=== PATIENT | male | born 1935 | race Caucasian/White ===

== ENCOUNTER 2016-08-13 17:43 | Emergency (ER) | payer MEDICARE, BC ==
[2016-08-13 17:53] VITALS: RESP 20
[2016-08-13] MEDS ORDERED: RX INFO: IV CONTRAST WAS GIVEN 1 EACH MISC MISCELLANE PRN (18:02)
[2016-08-13 18:36] LABS: Anisocytosis Slight; Basophils # (A) 0.3 k/uL (0-0.2); Basophils % (A) 2 %; CH 26.2; CHCM 33.2; Eosinophils # (A) 0.3 k/uL (0-0.7); Eosinophils % (A) 2 %; HCT 39.6 % (39.0-53.0); HDW 2.85; HGB 13.2 gm/dL (13.0-17.5); Luc # (Auto) 0.46; Luc % (Auto) 3; Lymphocytes # (A) 2.2 k/uL (1.0-4.8); Lymphocytes % (A) 15 %; MCH 26.5 pg (25.0-35.0); MCHC 33.3 g/dL (31.0-37.0); MCV 79.5 fL (80.0-100.0); Mean Platelet Volume 8.6; Microcytosis Slight; Monocytes # (A) 0.8 k/uL (0-1.0); Monocytes % (A) 5 %; Neutrophils # (A) 11.1 k/uL (1.3-7.7); Neutrophils % (A) 73 %; RBC 4.98 m/uL (4.30-5.90); RDW 17.1 % (11.5-15.5); WBC 15.1 k/uL (3.8-10.6); WBC (Perox) 15.04
--- NOTE | 2016-08-13 18:40 | ED ---
General Adult HPI - General Chief complaint: Abdominal Pain Stated complaint: SOB,HTN Time Seen by Provider: 08/13/16 18:01 Source: patient Mode of arrival: wheelchair Limitations: no limitations - History of Present Illness Initial comments: 81-year-old male presenting for cough and chest congestion. Patient states that he has been feeling ill for the past few days. He states that he's had some intermittent fevers and chills. He denies any chest pain associated. States that he has had chronic recurrent cough issues after he was intubated on life support for 3 months several years ago. He states that he was on a biotic several months ago for pneumonia. Denies any recent antibiotics or steroids. States he is also having some intermittent abdominal and back pain. He denies any nausea or vomiting. He also mentions that she's had some dark-colored stools over the past 2 days although he states he started iron supplement about 3 days ago. Denies any history of GI bleed. He is not on any blood thinners. - Related Data Home Medications Medication Instructions Recorded Confirmed Acetaminophen Tab [Tylenol] 650 mg PO Q4H PRN 12/21/14 08/13/16 Insulin Detemir [Levemir Flextouch] 60 units SQ HS 12/21/14 08/13/16 Montelukast [Singulair] 10 mg PO HS 12/21/14 08/13/16 Aspirin EC [Ecotrin Low Dose] 81 mg PO HS 02/07/16 08/13/16 Cyanocobalamin [Vitamin B-12] 500 mcg PO DAILY 02/07/16 08/13/16 Insulin Aspart [NovoLOG Flexpen] 15 units SQ AC-TID 02/07/16 08/13/16 Isosorbide Mononitrate ER [Imdur] 30 mg PO DAILY 02/07/16 08/13/16 Magnesium Oxide [Mag-Ox] 250 mg PO DAILY 02/07/16 08/13/16 Metoprolol Tartrate 25 mg PO BID 02/07/16 08/13/16 Pravastatin Sodium 40 mg PO HS 02/07/16 08/13/16 Zinc 50 mg PO DAILY 02/07/16 08/13/16 Albuterol Nebulized [Ventolin 2.5 mg INHALATION RT-TID PRN 04/02/16 08/13/16 Nebulized] Escitalopram [Lexapro] 10 mg PO DAILY 04/02/16 08/13/16 Furosemide [Lasix] 40 mg PO QAM 04/02/16 08/13/16 Potassium Chloride ER [K-Dur 20] 20 meq PO DAILY 04/02/16 08/13/16 [place]-3 Fatty Acids/Fish Oil [Fish 1 cap PO DAILY 08/13/16 08/13/16 Oil 1,000 mg Softgel] Previous Rx's Medication Instructions Recorded Ferrous Sulfate [Feosol] 325 mg PO DAILY #30 tab 04/07/16 Doxycycline Hyclate 100 mg PO DAILY 7 Days 08/13/16 Allergies Allergy/AdvReac Type Severity Reaction Status Date / Time Penicillins Allergy Unknown Rash/Hives Verified 08/13/16 19:07 atorvastatin calcium Allergy Unknown Verified 08/13/16 19:07 [From Lipitor] clonazepam [From Klonopin] Allergy Hallucinati Verified 08/13/16 19:07 ons codeine Allergy Hallucinati Verified 08/13/16 19:07 ons haloperidol [From Haldol] Allergy Hallucinati Verified 08/13/16 19:07 ons haloperidol lactate Allergy Hallucinati Verified 08/13/16 19:07 [From Haldol] ons hydromorphone HCl Allergy Hallucinati Verified 08/13/16 19:07 [From Dilaudid] ons methylphenidate HCl Allergy Hallucinati Verified 08/13/16 19:07 [From Ritalin] ons morphine Allergy Hallucinati Verified 08/13/16 19:07 ons propofol Allergy Hallucinati Verified 08/13/16 19:07 ons quetiapine fumarate Allergy Hallucinati Verified 08/13/16 19:07 [From Seroquel] ons Sulfa (Sulfonamide Allergy Unknown Verified 08/13/16 19:07 Antibiotics) vancomycin Allergy Unknown Verified 08/13/16 19:07 Review of Systems ROS Statement: Those systems with pertinent positive or pertinent negative responses have been documented in the HPI. ROS Other: All systems not noted in ROS Statement are negative. Past Medical History Past Medical History: COPD, CVA/TIA, Diabetes Mellitus, Hypertension, Myocardial Infarction ([place]) Additional Past Medical History / Comment(s): KIDNEY CANCER - LEFT KIDNEY PARTIAL REMOVED. Last Myocardial Infarction Date:: UNKNOWN History of Any Multi-Drug Resistant Organisms: MRSA Date of last positivie culture/infection: 2014 MDRO Source:: left leg Additional Past Surgical History / Comment(s): partial nephrectomy, distal pancreatectomy, splenectomy, Past Anesthesia/Blood Transfusion Reactions: Previous Problems w/ Anesthesia Additional Past Anesthesia/Blood Transfusion Reaction / Comment(s): 'TROUBLE COMING OUT OF ANESTESIA' - DELUSIONAL. Past Psychological History: Anxiety, Depression Smoking Status: Never smoker Past Alcohol Use History: None Reported Past Drug Use History: None Reported - Past Family History Father Family Medical History: Myocardial Infarction ([place]) Mother Family Medical History: COPD General Exam - General Exam Comments Initial Comments: General: Awake and Alert. No acute distress. Does not appear acutely ill. Obese. Eyes: SUNIL, EOM intact. No nystagmus. No scleral icterus. HENT: Atraumatic, normocephalic. Mucous membranes moist. Trachea midline. Neck: The neck is supple, there is no tenderness or JVD. Cardiovascular: Regular rate and rhythm. No murmur, rub, or gallop is appreciated. Distal pulses intact. Trace lower extremity edema bilaterally. Respiratory: Lungs are clear to auscultation bilaterally. No wheezes, rales, rhonchi. No respiratory distress. Gastrointestinal: Soft, Nontender. No rebound or guarding. Non-distended. No masses or organomegaly noted. No CVA tenderness. Musculoskeletal: No tenderness. Normal ROM. No gross deformity. No strength deficits. Neurological: A&Ox3. CN II-XII grossly intact, There are no obvious motor or sensory deficits. Coordination appears grossly intact. Speech is normal. Skin: Skin is warm and dry and no rashes or lesions are noted. Psychiatric: Cooperative, appropriate mood & affect, normal judgment. Limitations: no limitations Course Vital Signs 08/13/16 08/13/16 08/13/16 17:49 19:49 21:53 Temperature 99 F 98.6 F 98.6 F Pulse Rate 89 65 63 Respiratory 20 20 20 Rate Blood Pressure 155/89 177/78 133/60 O2 Sat by Pulse 98 95 95 Oximetry 08/13/16 22:25 Temperature Pulse Rate 69 Respiratory 20 Rate Blood Pressure 139/72 O2 Sat by Pulse 95 Oximetry EKG Findings - EKG Comments: EKG Findings:: EKG 18:31. A. fib. Rate 57. Nonspecific T wave abnormality. No STEMI. Abnormal EKG. Similar to prior EKG 02/07/2016. Medical Decision Making - Medical Decision Making 81-year-old male presenting for cough and upper respiratory congestion. He also states that he had some abdominal and back pain. States she's had extensive history of abdominal surgery due to prior renal cancer and partial removal of his pancreas. On exam his abdomen is soft and nontender without evidence of peritonitis. States that he has had some dark-colored stools over the past few days, but he also started an iron supplement 3 days ago. He denies any history of GI bleed. Lab work with significant leukocytosis but otherwise stable CBC. BMP stable. LFTs stable. Lipase negative. Troponin negative 2. CT abdomen and pelvis without acute process. Chest x-ray without acute process. Patient reevaluated remained stable during his course in ED. Discussed possible bronchitis given his persistent cough and leukocytosis. 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 Family states they do not want him to have a fluoroquinolone or azithromycin. They refuse multiple different antibiotic options. Patient ultimately covered on Doxycycline. Was given dose of Rocephin for possible bronchitis/CAP in setting of asplenia. No allergic rxn in setting of PCN allergy, observed prior to discharge. Discussed close follow-up with PCP. Discussed concerning signs symptoms for immediate return to the ED. Patient and family agreeable to plan and discharge home. - Lab Data Result diagrams: 08/13/16 18:14 08/13/16 18:14 Lab Results 08/13/16 08/13/16 08/13/16 Range/Units 18:14 18:14 18:14 WBC 15.1 H (3.8-10.6) k/uL RBC 4.98 (4.30-5.90) m/uL Hgb 13.2 (13.0-17.5) gm/dL Hct 39.6 (39.0-53.0) % MCV 79.5 L (80.0-100.0) fL MCH 26.5 (25.0-35.0) pg MCHC 33.3 (31.0-37.0) g/dL RDW 17.1 H (11.5-15.5) % Plt Count 310 (150-450) k/uL Neutrophils % 73 % Lymphocytes % 15 % Monocytes % 5 % Eosinophils % 2 % Basophils % 2 % Neutrophils # 11.1 H (1.3-7.7) k/uL Lymphocytes # 2.2 (1.0-4.8) k/uL Monocytes # 0.8 (0-1.0) k/uL Eosinophils # 0.3 (0-0.7) k/uL Basophils # 0.3 H (0-0.2) k/uL Anisocytosis Slight Microcytosis Slight Sodium 137 (137-145) mmol/L Potassium 4.3 (3.5-5.1) mmol/L Chloride 96 L (98-107) mmol/L Carbon Dioxide 29 (22-30) mmol/L Anion Gap 12 mmol/L BUN 24 H (9-20) mg/dL Creatinine 1.11 (0.66-1.25) mg/dL Est GFR (MDRD) Af Amer >60 (>60 ml/min/1.73 sqM) Est GFR (MDRD) Non-Af >60 (>60 ml/min/1.73 sqM) Glucose 219 H (74-99) mg/dL Plasma Lactic Acid Dean 1.6 (0.7-2.0) mmol/L Calcium 9.8 (8.4-10.2) mg/dL Magnesium 2.0 (1.6-2.3) mg/dL Total Bilirubin 0.4 (0.2-1.3) mg/dL AST 30 (17-59) U/L ALT 29 (21-72) U/L Alkaline Phosphatase 74 (38-126) U/L Troponin I (0.000-0.034) ng/mL Total Protein 7.5 (6.3-8.2) g/dL Albumin 4.3 (3.5-5.0) g/dL Urine Color Urine Appearance (Clear) Urine pH (5.0-8.0) Ur Specific [place] (1.001-1.035) Urine Protein (Negative) Urine Glucose (UA) (Negative) Urine Ketones (Negative) Urine Blood (Negative) Urine Nitrite (Negative) Urine Bilirubin (Negative) Urine Urobilinogen (<2.0) mg/dL Ur Leukocyte Esterase (Negative) 08/13/16 08/13/16 08/13/16 Range/Units 18:14 18:31 20:33 WBC (3.8-10.6) k/uL RBC (4.30-5.90) m/uL Hgb (13.0-17.5) gm/dL Hct (39.0-53.0) % MCV (80.0-100.0) fL MCH (25.0-35.0) pg MCHC (31.0-37.0) g/dL RDW (11.5-15.5) % Plt Count (150-450) k/uL Neutrophils % % Lymphocytes % % Monocytes % % Eosinophils % % Basophils % % Neutrophils # (1.3-7.7) k/uL Lymphocytes # (1.0-4.8) k/uL Monocytes # (0-1.0) k/uL Eosinophils # (0-0.7) k/uL Basophils # (0-0.2) k/uL Anisocytosis Microcytosis Sodium (137-145) mmol/L Potassium (3.5-5.1) mmol/L Chloride (98-107) mmol/L Carbon Dioxide (22-30) mmol/L Anion Gap mmol/L BUN (9-20) mg/dL Creatinine (0.66-1.25) mg/dL Est GFR (MDRD) Af Amer (>60 ml/min/1.73 sqM) Est GFR (MDRD) Non-Af (>60 ml/min/1.73 sqM) Glucose (74-99) mg/dL Plasma Lactic Acid Dean (0.7-2.0) mmol/L Calcium (8.4-10.2) mg/dL Magnesium (1.6-2.3) mg/dL Total Bilirubin (0.2-1.3) mg/dL AST (17-59) U/L ALT (21-72) U/L Alkaline Phosphatase (38-126) U/L Troponin I 0.014 0.014 (0.000-0.034) ng/mL Total Protein (6.3-8.2) g/dL Albumin (3.5-5.0) g/dL Urine Color Colorless Urine Appearance Clear (Clear) Urine pH 6.5 (5.0-8.0) Ur Specific [place] 1.003 (1.001-1.035) Urine Protein Negative (Negative) Urine Glucose (UA) Trace H (Negative) Urine Ketones Negative (Negative) Urine Blood Negative (Negative) Urine Nitrite Negative (Negative) Urine Bilirubin Negative (Negative) Urine Urobilinogen <2.0 (<2.0) mg/dL Ur Leukocyte Esterase Negative (Negative) Disposition Clinical Impression: Cough, Congestion of upper airway, Leukocytosis, Abdominal pain, Back pain Disposition: HOME SELF-CARE Condition: Stable Instructions: Abdominal Pain (ED), Hypertension (ED), Acute Bronchitis (ED) Prescriptions: Doxycycline Hyclate 100 mg PO DAILY 7 Days Referrals: Jono Key MD [Primary Care Provider] - 1-2 days Time of Disposition: 22:00
[2016-08-13 18:49] LABS: ALT 29 U/L (21-72); AST 30 U/L (17-59); Alkaline Phosphatase 74 U/L (38-126); Anion Gap 12 mmol/L; Blood Urea Nitrogen 24 mg/dL (9-20); Calcium 9.8 mg/dL (8.4-10.2); Carbon Dioxide 29 mmol/L (22-30); Chloride 96 mmol/L (98-107); Glucose 219 mg/dL (74-99); Non-African American GFR(MDRD) >60 (>60 ml/min/1.73 sqM); Potassium 4.3 mmol/L (3.5-5.1); Sodium 137 mmol/L (137-145); Total Bilirubin 0.4 mg/dL (0.2-1.3); Total Protein 7.5 g/dL (6.3-8.2)
--- NOTE | 2016-08-13 18:51 | XR ---
EXAMINATION TYPE: XR chest 2V DATE OF EXAM: 08/13/2016 6:47 PM COMPARISON: 02/07/2016 HISTORY: Dizziness TECHNIQUE: Frontal and lateral views of the chest are obtained. FINDINGS: There is mild elevated right diaphragm. There is some linear density at the right lung bas e. There are no hilar masses. There is no heart failure. Sternal wires. Bony thorax is intact. There is no sign of pleural effusion. IMPRESSION: Mild chronic elevation of the right diaphragm consistent with partial paralysis. Mild at electasis at the right lung base. No heart failure. No change.
[2016-08-13] MEDS ORDERED: SODIUM CHLORIDE 0.9% 1,000 ML IV ONE (18:56)
[2016-08-13 19:03] LABS: Appearance,Urine Clear (Clear); Bilirubin,Urine Negative (Negative); Glucose,Urine (UA) Trace (Negative); Ketones,Urine Negative (Negative); Leukocyte Esterase,Urine Negative (Negative); Nitrite,Urine Negative (Negative); PH, Urine 6.5 (5.0-8.0); Protein,Urine Negative (Negative); Specific Gravity,Urine 1.003 (1.001-1.035); UA Billing (MACRO vs. MICRO) CHEM; Urobilinogen,Urine <2.0 mg/dL (<2.0)
--- NOTE | 2016-08-13 19:48 | CT ---
EXAMINATION TYPE: CT abdomen pelvis w con DATE OF EXAM: 08/13/2016 7:35 PM COMPARISON: 12/21/2014 HISTORY: Patient complains of left flank pain, nausea, and black stools. CT DLP: 1903.6 mGycm Automated exposure control for dose reduction was used. TECHNIQUE: Helical acquisition of images was performed from the lung bases through the pelvis. CONTRAST: Performed without Oral Contrast and with IV Contrast, patient injected with 100 mL of Omnipaque 300. FINDINGS: There is mild atelectasis at the right lung base. There is no pleural effusion. There is no pericardi al effusion. There is a 2 cm area of enhancement in the lateral right lobe of the liver. There is als o subtle wedge-shaped area of enhancement around the lesion. There is a 2 cm irregular hypodense area in the left lobe of the liver. The bile ducts are not dilated. Spleen is absent. There is no sign of pancreatic mass. There is no adrenal mass. Kidneys show satisfactory contrast opacification. There i s no hydronephrosis. There is a 1 cm cyst in the posterior right kidney. There is no retroperitoneal adenopathy. There is no ascites. Bladder distends smoothly. There is no sign of a pelvic mass. I see no intestinal wall thickening. There are no dilated loops. There is no sign of a hernia. I see no bon y destructive process. IMPRESSION: ATHEROSCLEROTIC VASCULAR DISEASE. PREVIOUS SURGERY. THERE IS CLEARING OF LEFT PLEURAL EFFUSION COMPAR ED TO OLD EXAM. THERE IS CLEARING OF THE EXTENSIVE INFLAMMATORY CHANGES IN THE LEFT UPPER QUADRANT CO MPARED TO OLD EXAM. THERE ARE LESIONS IN THE LIVER THAT COULD RELATE TO HEMANGIOMATA. I DO NOT SEE A CAUSE FOR LEFT UPPER QUADRANT PAIN. LIVER IS FAIRLY STABLE COMPARED TO OLD CT SCANS. There is no sign of a hernia.
[2016-08-13 19:50] VITALS: TEMP 98.6
[2016-08-13 22:27] VITALS: BP 139/72; PULSE 69
== END 2016-08-13 22:36 | disposition home or self-care (01) ==
LOC: EC 17:43
DX: D72.829 Elevated white blood cell count, unspecified (principal); R05 Cough; R10.9 Unspecified abdominal pain; M54.9 Dorsalgia, unspecified; J44.9 Chronic obstructive pulmonary disease, unspecified; I10 Essential (primary) hypertension; E11.9 Type 2 diabetes mellitus without complications; Z90.5 Acquired absence of kidney; F41.9 Anxiety disorder, unspecified; F32.9 Major depressive disorder, single episode, unspecified; Z79.4 Long term (current) use of insulin; Z79.82 Long term (current) use of aspirin; Z79.899 Other long term (current) drug therapy; Z88.0 Allergy status to penicillin; Z88.1 Allergy status to other antibiotic agents; Z88.2 Allergy status to sulfonamides; Z88.5 Allergy status to narcotic agent; Z88.8 Allergy status to other drugs, medicaments and biological substances; Z87.01 Personal history of pneumonia (recurrent); Z85.528 Personal history of other malignant neoplasm of kidney; Z86.73 Personal history of transient ischemic attack (TIA), and cerebral infarction without residual deficits
CPT/HCPCS: 36415; 93005; 80053; 83605; 83735; 84484; 85025; 81003; 71020; 74177; 99284; 96365; 96361; J0696; Q9967

== ENCOUNTER → 2017-01-02 | Outpatient (CLI) | payer MEDICARE, BC ==
--- NOTE | 2017-01-02 08:59 | US ---
EXAMINATION TYPE: US abdomen limited DATE OF EXAM: 01/02/2017 COMPARISON: CT abdomen pelvis dated 12/21/14 and 08/13/2016. CLINICAL HISTORY: R10.13 EPIGASTRIC PAIN. Patient states no symptoms, order says epigastric pain. Rec ent complaint of melanoma on prior CT abdomen and pelvis dated 08/13/2016. EXAM MEASUREMENTS: Liver Length: 20.2 cm Gallbladder Wall: 0.2 cm CBD: 0.4 cm Right Kidney: 11.4 x 5.7 x 5.5 cm Pancreas: limited visibility due to bowel gas and body habitus Liver: multiple subtle heterogeneous lesions seen, lateral left lobe = 2.3cm, right posterior lobe h as appearance of 2 lesions adjacent to each other, largest = 3.5cm Gallbladder: wnl Evidence for sonographic Donovan's sign: no CBD: wnl Right Kidney: wnl IMPRESSION: Multiple hepatic lesions that appear to have increased in size from the prior examination s although there is limitation of differences in technique. Given the recent history of melanoma on t he exam of 08/13/[address] abdomen pelvis liver mass protocol or dynami c enhanced MR is recommended for full characterization.
== END | disposition home or self-care (01) ==
LOC: RADUSWWP 07:32
PROVIDERS: ATTEND Family Medicine
DX: K76.89 Other specified diseases of liver (principal); Z88.0 Allergy status to penicillin; Z88.2 Allergy status to sulfonamides; Z88.5 Allergy status to narcotic agent; Z88.8 Allergy status to other drugs, medicaments and biological substances
CPT/HCPCS: 76705

== ENCOUNTER → 2017-01-02 | Outpatient (CLI) | payer MEDICARE, BC ==
[2017-01-02 09:25] LABS: ALT 41 U/L (21-72); AST 28 U/L (17-59); Alkaline Phosphatase 78 U/L (38-126); Anion Gap 12 mmol/L; Blood Urea Nitrogen 20 mg/dL (9-20); Calcium 8.8 mg/dL (8.4-10.2); Carbon Dioxide 26 mmol/L (22-30); Chloride 101 mmol/L (98-107); Cholesterol 147 mg/dL (<200); Glucose 174 mg/dL (74-99); HDL Cholesterol 43 mg/dL (40-60); Non-African American GFR(MDRD) >60 (>60 ml/min/1.73 sqM); Potassium 4.4 mmol/L (3.5-5.1); Sodium 139 mmol/L (137-145); Total Bilirubin 0.4 mg/dL (0.2-1.3); Total Protein 6.8 g/dL (6.3-8.2)
== END ==
LOC: LABWHC1 08:15
PROVIDERS: ATTEND Internal Medicine Interventional Cardiology
DX: E78.2 Mixed hyperlipidemia (principal)
CPT/HCPCS: 36415; 80053; 80061

== ENCOUNTER → 2017-06-08 | Outpatient (CLI) | payer MEDICARE, BC ==
--- NOTE | 2017-06-09 10:04 | ECHOF ---
Referral Reason:I48.91 Afib, I10 hypertension MEASUREMENTS -------- HEIGHT: 157.5 cm WEIGHT: 111.1 kg BP: RVIDd: 3.4 cm (< 3.3) IVSd: 1.4 cm (0.6 - 1.1) LVIDd: 5.4 cm (3.9 - 5.3) LVPWd: 1.1 cm (0.6 - 1.1) IVSs: 1.6 cm LVIDs: 4.6 cm LVPWs: 1.5 cm LA Diam: 4.1 cm (2.7 - 3.8) Ao Diam: 3.7 cm (2.0 - 3.7) AV Cusp: 1.8 cm (1.5 - 2.6) LA Diam: 4.0 cm (2.7 - 3.8) MV EXCURSION: 19.523 mm (> 18.000) MV EF SLOPE: 71 mm/s (70 - 150) EPSS: 1.6 cm MV E Osito: 1.38 m/s MV DecT: 218 ms MV A [place]: 0.78 m/s MV E/A Ratio: 1.77 RAP: 5.00 mmHg RVSP: 15.94 mmHg FINDINGS -------- Sinus rhythm. This was a technically adequate study. The left ventricular size is normal. There is moderate concentric left ventricular hypertrophy. O verall left ventricular systolic function is mildly impaired with, an EF between 45 - 50 %. The right ventricle is normal in size. The left atrium is mildly dilated. The right atrial size is normal. There is mild aortic valve sclerosis. There is no evidence of aortic regurgitation. Mild mitral annular calcification present. Mild mitral regurgitation is present. Mild tricuspid regurgitation present. There is no evidence of pulmonary hypertension. The right v entricular systolic pressure, as measured by Doppler, is 15.94mmHg. The pulmonic valve was not well visualized. The aortic root size is normal. There is no pericardial effusion. CONCLUSIONS -------- 1. The left ventricular size is normal. 2. There is moderate concentric left ventricular hypertrophy. 3. Overall left ventricular systolic function is mildly impaired with, an EF between 45 - 50 %. 4. The left atrium is mildly dilated. 5. Mild mitral annular calcification present. 6. Mild mitral regurgitation is present. 7. Mild tricuspid regurgitation present. 8. There is no evidence of pulmonary hypertension. 9. The right ventricular systolic pressure, as measured by Doppler, is 15.94mmHg. 10. The pulmonic valve was not well visualized. 11. The aortic root size is normal. 12. There is no pericardial effusion. DRY CLEANER: Radha Scruggs RDCS
== END | disposition home or self-care (01) ==
LOC: RADECHMAIN 14:32
PROVIDERS: ATTEND Family Medicine
DX: I08.1 Rheumatic disorders of both mitral and tricuspid valves (principal); I10 Essential (primary) hypertension; I48.91 Unspecified atrial fibrillation; Z88.0 Allergy status to penicillin; Z88.2 Allergy status to sulfonamides; Z88.5 Allergy status to narcotic agent; Z88.8 Allergy status to other drugs, medicaments and biological substances
CPT/HCPCS: 93306

== ENCOUNTER → 2017-10-27 | Outpatient (CLI) | payer MEDICARE, BC ==
--- NOTE | 2017-10-28 10:37 | CT ---
EXAMINATION TYPE: CT chest wo con DATE OF EXAM: 10/27/2017 COMPARISON: 09/07/2010 HISTORY: Shortness of breath. CT DLP: 613.7 mGycm. Automated Exposure Control for Dose Reduction was Utilized. TECHNIQUE: CT scan of the thorax is performed without IV contrast. FINDINGS: LUNGS: The lungs are grossly clear, there is no concerning parenchymal mass or nodule identified. T here is no pleural effusion or pneumothorax seen. The tracheobronchial tree is patent. Subsegmental linear changes are suggestive of scar or atelectasis. MEDIASTINUM: Lack of IV contrast is noted to limit evaluation for mediastinal and especially hilar ad enopathy. There are no definitive greater than 1 cm hilar or mediastinal lymph nodes. No cardiomega ly or pericardial effusion is seen. Cardiomegaly or calcification noted. Proximal ascending aorta tito sures 4 cm compatible with mild aneurysmal dilation. OTHER: Hypertrophic and degenerative changes spine noted. Sternotomy wires are seen. There is fusion of the mid to lower thoracic vertebral segments. This likely is chronic.. Changes of gynecomastia are noted. In the abdomen there is suggestion of surgical clips in the left upper quadrant. IMPRESSION: 1. No acute intrathoracic process. There is a mild cardiomegaly and dense coronary artery calcificati on with subsegmental areas of consolidation involving most typical scar and/or atelectasis. 2. 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
== END ==
LOC: RADCTMAIN 17:37
PROVIDERS: ATTEND Internal Medicine
DX: I51.7 Cardiomegaly (principal); I25.10 Atherosclerotic heart disease of native coronary artery without angina pectoris; I71.2 Thoracic aortic aneurysm, without rupture
CPT/HCPCS: 71250

== ENCOUNTER → 2017-11-06 | Outpatient (CLI) | payer MEDICARE, BC ==
--- NOTE | 2017-11-06 17:02 | US ---
EXAMINATION TYPE: US kidneys/renal and bladder DATE OF EXAM: 11/06/2017 COMPARISON: NONE CLINICAL HISTORY: C64.2 Malignant neoplasm of left kidney. History of kidney cancer, partial left nep hrectomy 3 years ago EXAM MEASUREMENTS: Right Kidney: 13.2 x 6.4 x 5.5 cm Left Kidney: 11.3 x 5.6 x 4.9 cm Technical limitations due to patient's body habitus and large amount of overlying bowel content Right Kidney: enlarged, no evidence of hydronephrosis Left Kidney: no evidence of hydronephrosis Bladder: appears wnl Bilateral Jets seen: no IMPRESSION: No evidence of renal mass or obstruction. Urinary bladder is sonolucent without evidence of a mass.
== END | disposition home or self-care (01) ==
LOC: RADUSWWP 15:41
PROVIDERS: ATTEND Urology
DX: C64.2 Malignant neoplasm of left kidney, except renal pelvis (principal)
CPT/HCPCS: 76770

== ENCOUNTER 2017-11-12 14:10 | Inpatient (IN) | payer MEDICARE, BC ==
[2017-11-12] MEDS ORDERED: SODIUM CHLORIDE 0.9% 500 ML IV STA (14:41)
[2017-11-12] MEDS ORDERED: SODIUM CHLORIDE 0.9% 1,000 ML IV STA (14:41)
--- NOTE | 2017-11-12 15:06 | ED ---
Wound/Laceration HPI - General Source: patient, RN notes reviewed, old records reviewed Mode of arrival: ambulatory Limitations: no limitations <Reba Henson - Last Filed: 11/12/17 18:37> <Phillip Banks - Last Filed: 11/12/17 19:15> - General Chief Complaint: Wound/Laceration Stated Complaint: Foot pain Time Seen by Provider: 11/12/17 14:19 - History of Present Illness Initial Comments: This Patient is an 82-year-old male presents emergency Department with and daughter with multiple complaints. His main complaint today is they're concerned about a wound over his right ankle. He reports that he is diabetic. He states that he's been doing with this wound for the past few weeks. He was concerned that he cannot get into his primary care doctor and wanted to be seen sooner. Patient is family also reports that he has not been acting himself over the past 2 months and is having more fatigue and shortness of breath. He denies any chest pain at this time but reports his been having intermittent episodes of chest pain with exertion. He does have a "triple bypass. Patient has had no recent fever or chills. Family reports that he did recently see a fixture repairer fabricator due to increased short of breath and was started on steroids. In resulting of this evening having elevated blood sugars.Patient denies any recent fever, chills, shortness of breath, chest pain, back pain, abdominal pain , nausea vomiting, numbness or tingling, dysuria or hematuria, constipation or diarrhea, headaches or visual changes, or any other current symptoms (Reba Henson) - Related Data Home Medications Medication Instructions Recorded Confirmed Insulin Detemir [Levemir Flextouch] 60 units SQ HS 12/21/14 11/12/17 Montelukast [Singulair] 10 mg PO HS 12/21/14 11/12/17 Aspirin EC [Ecotrin Low Dose] 81 mg PO HS 02/07/16 11/12/17 Insulin Aspart [NovoLOG Flexpen] 17 units SQ AC-TID 02/07/16 11/12/17 Isosorbide Mononitrate ER [Imdur] 30 mg PO DAILY 02/07/16 11/12/17 Magnesium Oxide [Mag-Ox] 250 mg PO DAILY 02/07/16 11/12/17 Pravastatin Sodium 40 mg PO HS 02/07/16 11/12/17 Zinc 50 mg PO DAILY 02/07/16 11/12/17 Albuterol Nebulized [Ventolin 2.5 mg INHALATION RT-TID PRN 04/02/16 11/12/17 Nebulized] Furosemide [Lasix] 40 mg PO DAILY 04/02/16 11/12/17 Potassium Chloride ER [K-Dur 20] 40 meq PO DAILY 04/02/16 11/12/17 Dwarf-3 Fatty Acids/Fish Oil [Fish 1 cap PO DAILY 08/13/16 11/12/17 Oil 1,000 mg Softgel] Acetaminophen Tab [Tylenol] 500 - 1,000 mg PO Q6HR PRN 03/17/17 11/12/17 Escitalopram [Lexapro] 20 mg PO DAILY 03/17/17 11/12/17 Cyanocobalamin [Vitamin B-12] 500 mcg PO MOWEFR 11/12/17 11/12/17 Insulin Aspart [Novolog Flexpen] See Protocol SQ AC-TID PRN 11/12/17 11/12/17 Polyethylene Glycol 3350 [Miralax] 17 gm PO DAILY 11/12/17 11/12/17 predniSONE 10 mg PO DAILY 11/12/17 11/12/17 Previous Rx's Medication Instructions Recorded Pantoprazole [Protonix] 40 mg PO DAILY #30 tab 03/21/17 Allergies Allergy/AdvReac Type Severity Reaction Status Date / Time Penicillins Allergy Unknown Rash/Hives Verified 11/12/17 17:58 atorvastatin calcium Allergy Unknown Verified 11/12/17 17:58 [From Lipitor] clonazepam [From Klonopin] Allergy Hallucinati Verified 11/12/17 17:58 ons codeine Allergy Hallucinati Verified 11/12/17 17:58 ons haloperidol [From Haldol] Allergy Hallucinati Verified 11/12/17 17:58 ons haloperidol lactate Allergy Hallucinati Verified 11/12/17 17:58 [From Haldol] ons hydromorphone HCl Allergy Hallucinati Verified 11/12/17 17:58 [From Dilaudid] ons methylphenidate HCl Allergy Hallucinati Verified 11/12/17 17:58 [From Ritalin] ons morphine Allergy Hallucinati Verified 11/12/17 17:58 ons propofol Allergy Hallucinati Verified 11/12/17 17:58 ons quetiapine fumarate Allergy Hallucinati Verified 11/12/17 17:58 [From Seroquel] ons Sulfa (Sulfonamide Allergy Unknown Verified 11/12/17 17:58 Antibiotics) vancomycin Allergy Unknown Verified 11/12/17 17:58 ativan AdvReac Unknown Uncoded 11/12/17 14:18 Review of Systems ROS Other: All systems not noted in ROS Statement are negative. <Reba Henson - Last Filed: 11/12/17 18:37> ROS Other: All systems not noted in ROS Statement are negative. <Phillip Banks - Last Filed: 11/12/17 19:15> ROS Statement: Those systems with pertinent positive or pertinent negative responses have been documented in the HPI. Past Medical History Past Medical History: Heart Failure, COPD, CVA/TIA, Diabetes Mellitus, Hypertension, Myocardial Infarction ([place]) Additional Past Medical History / Comment(s): KIDNEY CANCER - LEFT KIDNEY PARTIAL REMOVED. Last Myocardial Infarction Date:: UNKNOWN History of Any Multi-Drug Resistant Organisms: MRSA Date of last positivie culture/infection: 2013 MDRO Source:: left leg Additional Past Surgical History / Comment(s): partial nephrectomy, distal pancreatectomy, splenectomy, Past Anesthesia/Blood Transfusion Reactions: Previous Problems w/ Anesthesia Additional Past Anesthesia/Blood Transfusion Reaction / Comment(s): 'TROUBLE COMING OUT OF ANESTESIA' - DELUSIONAL. Past Psychological History: Anxiety, Depression Smoking Status: Never smoker Past Alcohol Use History: None Reported Past Drug Use History: None Reported - Past Family History Father Family Medical History: Myocardial Infarction ([place]) Mother Family Medical History: COPD <Reba Henson - Last Filed: 11/12/17 18:37> General Exam Limitations: no limitations General appearance: alert, in no apparent distress Head exam: Present: atraumatic, normocephalic, normal inspection Eye exam: Present: normal appearance, PERRL, EOMI. Absent: scleral icterus, conjunctival injection, periorbital swelling ENT exam: Present: normal exam, mucous membranes moist Neck exam: Present: normal inspection. Absent: tenderness, meningismus, lymphadenopathy Respiratory exam: Present: normal lung sounds bilaterally. Absent: respiratory distress, wheezes, rales, rhonchi, stridor Cardiovascular Exam: Present: regular rate, normal rhythm, normal heart sounds. Absent: systolic murmur, diastolic murmur, rubs, gallop, clicks GI/Abdominal exam: Present: soft, normal bowel sounds. Absent: distended, tenderness, guarding, rebound, rigid Extremities exam: Present: normal inspection, full ROM, normal capillary refill. Absent: tenderness, pedal edema, joint swelling, calf tenderness Right Lower Leg exam: Present: normal inspection, full ROM Ankle exam: Present: full ROM. Absent: normal inspection (Is a small thickened ulceration over the lateral malleolus.) Foot/Toe exam: Present: full ROM. Absent: normal inspection (Patient has a callus over the first great toe with a deep-appearing puncture wound.), tenderness, swelling Neurovascular tendon exam: Present: no vascular compromise Gait: observed and normal Back exam: Present: normal inspection Neurological exam: Present: alert, oriented X3, CN II-XII intact Psychiatric exam: Present: normal affect, normal mood Skin exam: Present: warm, dry, intact, normal color. Absent: rash <Reba Henson - Last Filed: 11/12/17 18:37> <Phillip Banks - Last Filed: 11/12/17 19:15> - General Exam Comments Initial Comments: 82-year-old male. Patient is alert and oriented. No acute distress. 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 His main complaint initially was right foot and ankle wounds wanted to have examined. He's also had increased fatigue and shortness of breath over the past few months. Patient's EKG today shows atrial fibrillation incomplete left bundle branch block. ST and T-wave abnormalities. reports these had a history of intermittent A. fib a few years ago but reports he has not been told that he is quite some time. He is not on a blood thinner besides the baby aspirin. Lab work shows evidence of leukocytosis with blood cell count of 23,000. I did start the Patient on Levaquin. His hemoglobin has dropped to 7.3. This is a change in the past 3 months. Patient does have a positive occult test. Patient has an elevated troponin of 0.066. Concern of starting heparin with the troponin and A. fib due to the positive occult and the change in hemoglobin to 7. Patient also has an elevated BNP of 3000. He is currently on Lasix and is urinating quite frequently. His chest x- ray shows no evidence of any acute vascular congestion or pleural effusion. Asians family does note that he had a CT of his chest which showed a mild dilation of the thoracic aorta that was done 1 month ago. He has some minor wounds over the lateral malleolus of the right ankle measuring 2 cm x 3 cm. No surrounding cellulitis or streaking. He also has a callus wound over the right great toe. There seems to be a puncture wound. On x-ray it seems as if there may be a foreign body within the right great toe. X-ray also questions a medial malleolus osseous lesion however Patient has no tenderness over the medial malleolus. Patient's family informed of all these results. Assessment Walden the Patient for diabetic foot ulcer with foreign body, GI bleed, new onset A. fib, elevated troponin. Addendum, there is a lab Error patient's white blood cell count is only 11,000. (Reba Henson) Patient was earlier evaluated by myself, Dr. Banks. Patient does have right foot ulcer. Labs and reports reviewed. Case was discussed in detail with Dr. Key who is familiar with this patient. He will admit for Dr. Noble. He does request consult for GI, Dr. Loza, and cardiology. (Phillip Banks) - Lab Data Lab Results 11/12/17 11/12/17 11/12/17 Range/Units 15:20 15:20 15:20 WBC 11.3 H (3.8-10.6) k/uL RBC 3.70 L (4.30-5.90) m/uL Hgb 7.3 L (13.0-17.5) gm/dL Hct 25.0 L (39.0-53.0) % MCV 67.6 L (80.0-100.0) fL MCH 19.8 L (25.0-35.0) pg MCHC 29.3 L (31.0-37.0) g/dL RDW 18.1 H (11.5-15.5) % Plt Count 664 H (150-450) k/uL Neutrophils % (Manual) 92 % Lymphocytes % (Manual) 4 % Monocytes % (Manual) 4 % Neutrophils # (Manual) 10.40 H (1.3-7.7) k/uL Lymphocytes # (Manual) 0.45 L (1.0-4.8) k/uL Monocytes # (Manual) 0.45 (0-1.0) k/uL Nucleated RBCs 106 H (0-0) /100 WBC Manual Slide Review Performed Polychromasia Present Hypochromasia Marked Hypochromasia (manual) Present Poikilocytosis Marked Poikilocytosis (manual Present Anisocytosis Slight Anisocytosis (manual) Present Microcytosis Marked Target Cells Present Tear Drop Cells Present Ovalocytes Present Crenated Cell Present PT (9.0-12.0) sec INR (<1.2) APTT (22.0-30.0) sec Sodium 133 L (137-145) mmol/L Potassium 5.0 (3.5-5.1) mmol/L Chloride 93 L (98-107) mmol/L Carbon Dioxide 24 (22-30) mmol/L Anion Gap 16 mmol/L BUN 38 H (9-20) mg/dL Creatinine 1.30 H (0.66-1.25) mg/dL Est GFR (CKD-EPI)AfAm 60 (>60 ml/min/1.73 sqM) Est GFR (CKD-EPI)NonAf 52 (>60 ml/min/1.73 sqM) Glucose 354 H (74-99) mg/dL Calcium 9.0 (8.4-10.2) mg/dL Magnesium 2.0 (1.6-2.3) mg/dL Total Bilirubin 1.1 (0.2-1.3) mg/dL AST 70 H (17-59) U/L ALT 83 H (21-72) U/L Alkaline Phosphatase 89 (38-126) U/L Total Creatine Kinase 641 H (55-170) U/L CK-MB (CK-2) 19.9 H* (0.0-2.4) ng/mL CK-MB (CK-2) Rel Index 3.1 Troponin I 0.066 H* (0.000-0.034) ng/mL NT-Pro-B Natriuret Pep pg/mL Total Protein 6.3 (6.3-8.2) g/dL Albumin 4.0 (3.5-5.0) g/dL Amylase 50 (30-110) U/L Lipase 118 (23-300) U/L Urine Color Urine Appearance (Clear) Urine pH (5.0-8.0) Ur Specific [place] (1.001-1.035) Urine Protein (Negative) Urine Glucose (UA) (Negative) Urine Ketones (Negative) Urine Blood (Negative) Urine Nitrite (Negative) Urine Bilirubin (Negative) Urine Urobilinogen (<2.0) mg/dL Ur Leukocyte Esterase (Negative) Stool Occult Blood (Negative) 11/12/17 11/12/17 11/12/17 Range/Units 15:20 15:20 15:20 WBC (3.8-10.6) k/uL RBC (4.30-5.90) m/uL Hgb (13.0-17.5) gm/dL Hct (39.0-53.0) % MCV (80.0-100.0) fL MCH (25.0-35.0) pg MCHC (31.0-37.0) g/dL RDW (11.5-15.5) % Plt Count (150-450) k/uL Neutrophils % (Manual) % Lymphocytes % (Manual) % Monocytes % (Manual) % Neutrophils # (Manual) (1.3-7.7) k/uL Lymphocytes # (Manual) (1.0-4.8) k/uL Monocytes # (Manual) (0-1.0) k/uL Nucleated RBCs (0-0) /100 WBC Manual Slide Review Polychromasia Hypochromasia Hypochromasia (manual) Poikilocytosis Poikilocytosis (manual Anisocytosis Anisocytosis (manual) Microcytosis Target Cells Tear Drop Cells Ovalocytes Crenated Cell PT 13.2 H (9.0-12.0) sec INR 1.4 H (<1.2) APTT 25.9 (22.0-30.0) sec Sodium (137-145) mmol/L Potassium (3.5-5.1) mmol/L Chloride (98-107) mmol/L Carbon Dioxide (22-30) mmol/L Anion Gap mmol/L BUN (9-20) mg/dL Creatinine (0.66-1.25) mg/dL Est GFR (CKD-EPI)AfAm (>60 ml/min/1.73 sqM) Est GFR (CKD-EPI)NonAf (>60 ml/min/1.73 sqM) Glucose (74-99) mg/dL Calcium (8.4-10.2) mg/dL Magnesium (1.6-2.3) mg/dL Total Bilirubin (0.2-1.3) mg/dL AST (17-59) U/L ALT (21-72) U/L Alkaline Phosphatase (38-126) U/L Total Creatine Kinase (55-170) U/L CK-MB (CK-2) (0.0-2.4) ng/mL CK-MB (CK-2) Rel Index Troponin I (0.000-0.034) ng/mL NT-Pro-B Natriuret Pep 3070 pg/mL Total Protein (6.3-8.2) g/dL Albumin (3.5-5.0) g/dL Amylase (30-110) U/L Lipase (23-300) U/L Urine Color Colorless Urine Appearance Clear (Clear) Urine pH 6.5 (5.0-8.0) Ur Specific [place] 1.007 (1.001-1.035) Urine Protein Negative (Negative) Urine Glucose (UA) Trace H (Negative) Urine Ketones Negative (Negative) Urine Blood Negative (Negative) Urine Nitrite Negative (Negative) Urine Bilirubin Negative (Negative) Urine Urobilinogen <2.0 (<2.0) mg/dL Ur Leukocyte Esterase Negative (Negative) Stool Occult Blood (Negative) 18 Range/Units 17:05 WBC (3.8-10.6) k/uL RBC (4.30-5.90) m/uL Hgb (13.0-17.5) gm/dL Hct (39.0-53.0) % MCV (80.0-100.0) fL MCH (25.0-35.0) pg MCHC (31.0-37.0) g/dL RDW (11.5-15.5) % Plt Count (150-450) k/uL Neutrophils % (Manual) % Lymphocytes % (Manual) % Monocytes % (Manual) % Neutrophils # (Manual) (1.3-7.7) k/uL Lymphocytes # (Manual) (1.0-4.8) k/uL Monocytes # (Manual) (0-1.0) k/uL Nucleated RBCs (0-0) /100 WBC Manual Slide Review Polychromasia Hypochromasia Hypochromasia (manual) Poikilocytosis Poikilocytosis (manual Anisocytosis Anisocytosis (manual) Microcytosis Target Cells Tear Drop Cells Ovalocytes Crenated Cell PT (9.0-12.0) sec INR (<1.2) APTT (22.0-30.0) sec Sodium (137-145) mmol/L Potassium (3.5-5.1) mmol/L Chloride (98-107) mmol/L Carbon Dioxide (22-30) mmol/L Anion Gap mmol/L BUN (9-20) mg/dL Creatinine (0.66-1.25) mg/dL Est GFR (CKD-EPI)AfAm (>60 ml/min/1.73 sqM) Est GFR (CKD-EPI)NonAf (>60 ml/min/1.73 sqM) Glucose (74-99) mg/dL Calcium (8.4-10.2) mg/dL Magnesium (1.6-2.3) mg/dL Total Bilirubin (0.2-1.3) mg/dL AST (17-59) U/L ALT (21-72) U/L Alkaline Phosphatase (38-126) U/L Total Creatine Kinase (55-170) U/L CK-MB (CK-2) (0.0-2.4) ng/mL CK-MB (CK-2) Rel Index Troponin I (0.000-0.034) ng/mL NT-Pro-B Natriuret Pep pg/mL Total Protein (6.3-8.2) g/dL Albumin (3.5-5.0) g/dL Amylase (30-110) U/L Lipase (23-300) U/L Urine Color Urine Appearance (Clear) Urine pH (5.0-8.0) Ur Specific [place] (1.001-1.035) Urine Protein (Negative) Urine Glucose (UA) (Negative) Urine Ketones (Negative) Urine Blood (Negative) Urine Nitrite (Negative) Urine Bilirubin (Negative) Urine Urobilinogen (<2.0) mg/dL Ur Leukocyte Esterase (Negative) Stool Occult Blood Positive (Negative) 11/12/17 16:17 EKG shows atrial fibrillation and complete left bundle branch block. Nonspecific ST-T wave abnormality. Abnormal EKG. Ventricularly of 80 bpm. Was undetected. QRS duration 112 ms. QT QTc is 440/532 ms. (Reba Henson) - Radiology Data Chest x-rays negative for any acute pulmonary process. Small avulsion may be present. The medial malleolus correlate with patient's pain. Vascular calcification noted. No suspicious change of acute osteomyelitis. Open wound inferior medial great toe. Radiopaque foreign body inferior to the distal phalanx at the distal interphalangeal joint space of the great toe. (Reba Henson) Disposition Is patient prescribed a controlled substance at d/c from ED?: No When asked, does pt state using other controlled substances?: No If prescribed controlled substance>3 days was MAPS reviewed?: No If opioid is for acute pain is fill amount 7 days or less?: No If Rx opioid, was Start Talking consent form obtained?: No Time of Disposition: 17:58 <Reba Henson - Last Filed: 11/12/17 18:37> <Phillip Banks - Last Filed: 11/12/17 19:15> Clinical Impression: Diabetic toe ulcer, Foreign body foot/toe, CHF (congestive heart failure), Obesity, Hx of CABG, Elevated troponin, GI bleed, New onset a-fib Disposition: ADMITTED IP TO THIS HOSP Condition: Stable Referrals: Luis Quesada Jr, DO [Primary Care Provider] - 1-2 days
[2017-11-12 15:37] LABS: Appearance,Urine Clear (Clear); Bilirubin,Urine Negative (Negative); Blood,Urine Negative (Negative); Color,Urine Colorless; Glucose,Urine (UA) Trace (Negative); Ketones,Urine Negative (Negative); Leukocyte Esterase,Urine Negative (Negative); Nitrite,Urine Negative (Negative); PH, Urine 6.5 (5.0-8.0); Protein,Urine Negative (Negative); Specific Gravity,Urine 1.007 (1.001-1.035); Urobilinogen,Urine <2.0 mg/dL (<2.0)
[2017-11-12 15:39] LABS: Anisocytosis Slight; HGB 7.3 gm/dL (13.0-17.5); Hypochromasia Marked; MCH 19.8 pg (25.0-35.0); MCHC 29.3 g/dL (31.0-37.0); MCV 67.6 fL (80.0-100.0); Mean Platelet Volume 6.3; Microcytosis Marked; Platelet Count 664 k/uL (150-450); Poikilocytosis Marked; RDW 18.1 % (11.5-15.5)
[2017-11-12 15:52] LABS: Total Bilirubin 1.1 mg/dL (0.2-1.3); Total Protein 6.3 g/dL (6.3-8.2)
[2017-11-12 16:07] LABS: INR 1.4 (<1.2); Prothrombin Time 13.2 sec (9.0-12.0)
[2017-11-12 16:08] LABS: Partial Thromboplastin Time 25.9 sec (22.0-30.0)
[2017-11-12 16:14] LABS: Creatine Kinase MB 19.9 ng/mL (0.0-2.4); Troponin I 0.066 ng/mL (0.000-0.034)
[2017-11-12] MEDS ORDERED: LEVOFLOXACIN 750MG-D5W PMX 750 MG in DEXTROSE/WATER 1 150ML.BAG IVPB STA (16:18)
--- NOTE | 2017-11-12 16:30 | XR ---
EXAMINATION TYPE: XR ankle complete RT DATE OF EXAM: 11/12/2017 COMPARISON: NONE HISTORY: Pain TECHNIQUE: 3 views right ankle FINDINGS: Ankle mortise is intact. Soft tissues are normal. There is a tiny ossification on the obliq ue view adjacent to the medial malleolus. Tiny avulsion is not excluded. No additional areas suspicio us for fracture is evident. There is vascular calcification present. IMPRESSION: 1. Small avulsion a be present inferior to the medial malleolus. Correlate with location of the douglas ent's pain. 2. Vascular calcification.
--- NOTE | 2017-11-12 16:37 | XR ---
EXAMINATION TYPE: XR foot complete RT DATE OF EXAM: 11/12/2017 COMPARISON: NONE HISTORY: Pain wound on right foot TECHNIQUE: Three-view right foot FINDINGS: There is an old fifth metatarsal fracture. Hallux valgus deformity is present. There may be a soft tissue wound medial great toe distal interphalangeal joint space. Degenerative joint changes present at the proximal interphalangeal joint space second digit. Vascular calcification is present. There appears to be a radiopaque foreign body below the great toe distal phalanx on the lateral proje ction. This was present 2016. IMPRESSION: 1. No suspicious changes of acute osteomyelitis. 2. Open wound inferior medial great toe. 3. Radiopaque foreign body inferior to the distal phalanx at the distal interphalangeal joint space g reat toe
--- NOTE | 2017-11-12 16:40 | XR ---
EXAMINATION TYPE: XR chest 2V DATE OF EXAM: 11/12/2017 COMPARISON: 03/17/2017 INDICATION: Chest pain TECHNIQUE: Frontal and lateral views of the chest are obtained. FINDINGS: The heart size is enlarged. The pulmonary vasculature is normal. The lungs are clear. Is chronic elevation of the right diaphragm. Sternotomy wires are in the midlin e IMPRESSION: 1. No acute pulmonary process.
[2017-11-12 16:54] LABS: Neutrophils % (M) 92 %; Nucleated Red Blood Cells 106 /100 WBC (0-0); Total Cells Counted 200
[2017-11-12 16:55] LABS: Anisocytosis (M) Present; Hypochromasia (M) Present; Lymphocytes # (M) 0.45 k/uL (1.0-4.8); Monocytes # (M) 0.45 k/uL (0-1.0); Ovalocytes Present; Poikilocytosis (M) Present; Polychromasia Present; Target Cells Present; WBC 11.3 k/uL (3.8-10.6)
[2017-11-12 16:56] LABS: Crenated RBC Present; Tear Drop Cells Present
[2017-11-12] MEDS ORDERED: IBUPROFEN 400 MG TAB PO PRN (17:58)
[2017-11-12] MEDS ORDERED: traMADol 50 MG TAB PO PRN (17:58)
[2017-11-12] MEDS ORDERED: ACETAMINOPHEN TAB 325 MG TAB PO PRN (17:58)
[2017-11-12] MEDS ORDERED: ONDANSETRON 4 MG/2 ML VIAL IVP PRN (17:58)
[2017-11-12] MEDS ORDERED: NALOXONE 0.4 MG/ML 1 ML VIAL IV PRN (17:58)
[2017-11-12 19:25] LABS: Glucose,Whole Blood 434 mg/dL (75-99)
[2017-11-12] MEDS ORDERED: INSULIN ASPART 100 UNIT/ML 1 ML 10 ML VIAL SQ STA (20:04)
[2017-11-12] MEDS ORDERED: NON-FORMULARY DRUG (Aspirin Ec 81 MG) PO SCH (21:00)
[2017-11-12] MEDS ORDERED: NITROGLYCERIN OINT 1 INCH/GM PACKET TOPICAL SCH (22:00)
[2017-11-12] MEDS: INSULIN DETEMIR 100 UNIT/ML 10 ML VIAL SQ SCH (22:13)
[2017-11-12 22:14] LABS: Glucose,Whole Blood 328 mg/dL (75-99)
[2017-11-12] MEDS: FUROSEMIDE 40 MG TAB PO SCH (22:14)
[2017-11-12] MEDS: PRAVASTATIN SODIUM 40 MG TAB PO SCH (22:15)
[2017-11-12] MEDS: MONTELUKAST 10 MG TAB PO SCH (22:18)
[2017-11-12 22:30] LABS: Creatine Kinase MB 17.9 ng/mL (0.0-2.4); Troponin I 0.056 ng/mL (0.000-0.034)
[2017-11-13 01:28] LABS: Troponin I 0.06 ng/mL (0.000-0.034)
[2017-11-13 06:52] LABS: Glucose,Whole Blood 123 mg/dL (75-99)
[2017-11-13] MEDS: INSULIN ASPART 100 UNIT/ML 1 ML 10 ML VIAL SQ SCH ×5 (08:04→22:13)
[2017-11-13] MEDS ORDERED: NON-FORMULARY DRUG (Zinc [Zinc] 50 MG) PO SCH (09:00)
[2017-11-13] MEDS ORDERED: FUROSEMIDE 40 MG TAB PO SCH (09:00)
[2017-11-13] MEDS ORDERED: PANTOPRAZOLE 40 MG TABLET PO SCH (09:00)
[2017-11-13] MEDS ORDERED: NON-FORMULARY DRUG (Omega-3 Fatty Acids/Fish Oil [Fish Oil 1,000 Mg Softgel] 1 CAP) PO SCH (09:00)
[2017-11-13] MEDS ORDERED: ASPIRIN 325 MG TAB PO SCH (09:00)
[2017-11-13 09:06] LABS: Albumin 4.2 g/dL (3.5-5.0); Potassium 4.1 mmol/L (3.5-5.1); Total Protein 6.6 g/dL (6.3-8.2)
[2017-11-13 09:13] LABS: Anisocytosis Slight; HGB 7.8 gm/dL (13.0-17.5); Hypochromasia Marked; MCH 19.2 pg (25.0-35.0); MCHC 28.8 g/dL (31.0-37.0); MCV 66.8 fL (80.0-100.0); Mean Platelet Volume 7.5; Microcytosis Marked; Platelet Count 667 k/uL (150-450); Poikilocytosis Marked; RBC 4.04 m/uL (4.30-5.90); RDW 18.1 % (11.5-15.5)
[2017-11-13] MEDS: FUROSEMIDE 40 MG TAB PO SCH ×3 (09:16→23:24)
[2017-11-13] MEDS: ISOSORBIDE MONONITRATE ER 30 MG TAB.ER.24H PO SCH (09:17)
[2017-11-13] MEDS: MAGNESIUM OXIDE 400 MG TAB PO SCH (09:17)
[2017-11-13] MEDS: CYANOCOBALAMIN 500 MCG TAB PO SCH (09:17)
[2017-11-13] MEDS: ESCITALOPRAM 20 MG TAB PO SCH (09:17)
[2017-11-13] MEDS: PANTOPRAZOLE 40 MG/10 ML VIAL IV SCH (09:17)
[2017-11-13] MEDS: POTASSIUM CHLORIDE ER 20 MEQ TAB.ER PO SCH (09:18)
[2017-11-13] MEDS: POLYETHYLENE GLYCOL 3350 17 GM POWD.PACK PO SCH (09:18)
[2017-11-13] MEDS: predniSONE 10 MG TAB PO SCH (09:18)
[2017-11-13 09:51] LABS: Eosinophils # (M) 0.11 k/uL (0-0.7); Lymphocytes # (M) 0.77 k/uL (1.0-4.8); Mixed Population RBC Present; Monocytes # (M) 0.33 k/uL (0-1.0); Neutrophils % (M) 90 %; Nucleated Red Blood Cells 93 /100 WBC (0-0); RBC Fragments Present; Target Cells Present; Total Cells Counted 200
[2017-11-13 09:52] LABS: Large Platelets Present; Polychromasia Present
--- NOTE | 2017-11-13 10:50 | CONS ---
SAROJ Mathew is an 82-year-old gentleman with history of coronary artery disease, status post CABG, hypertension, dyslipidemia, who presented to hospital primarily complaining of a wound over his right ankle. He is a diabetic and this wound has been getting progressively worse over the last few weeks and he has also been somewhat confused over the last 2 months and has been more fatigued and short of breath. He also complains of intermittent episodes of chest pain with exertion that has been chronic and stable. He sees my associate, Dr. Lr regularly and has also been evaluated by a marketing operations analyst. On this admission, the patient has mildly elevated troponin suggestive of a non ST- segment elevation AR, has positive guaiac with low hemoglobin suggestive of gastrointestinal blood loss and he has also been found to be in atrial fibrillation. He is not a candidate for invasive procedures at this time given the anemia and the positive Hemoccult. He is not a candidate for anticoagulation or antiplatelet agents. However, when things settle down, we have to consider long-term anticoagulation for his atrial fibrillation and he may need a stress test or invasive angiography. I am going to review his outpatient records. PAST MEDICAL HISTORY: Significant for coronary artery disease, status post CABG, hypertension, insulin- requiring diabetes and dyslipidemia. MEDICATIONS: Include pravastatin 40 daily, Protonix, Singulair, Imdur 30 daily, insulin, Lasix 40 daily, Lexapro, aspirin and Ventolin. ALLERGIES: THE PATIENT IS ALLERGIC TO PENICILLIN, LIPITOR, KLONOPIN, CODEINE, HALDOL, MORPHINE, PROPOFOL, VANCOMYCIN AND ATIVAN. FAMILY HISTORY: Negative for premature coronary artery disease. SOCIAL HISTORY: Negative for smoking, EtOH abuse or drug abuse. REVIEW OF SYSTEMS: HEENT is unremarkable. Cardiac as described above. Respiratory as described above. GI negative. GENITOURINARY: Negative. Allergy: None. Skin negative. Musculoskeletal as described above. Psychosocial negative. ENDOCRINE: Negative. DERM: Negative. HEMATOLOGICAL: Negative. Constitutional: Negative. Oncological negative. Rest of the system review is not relevant. PHYSICAL EXAM: Patient is afebrile. Heart rate is 60, blood pressure is 178/91, respiratory rate is 18, O2 sat is 99% on 2 L. there is no jugular venous distention. Chest exam reveals diminished air entry at the bases. Heart exam reveals first and second heart sounds, irregular rhythm and a systolic murmur at the apex. Abdomen is soft. Exam of extremities reveals 1+ edema. ASSESSMENT: 1. Acute non ST-segment elevation myocardial infarction. 2. Atrial fibrillation with controlled ventricular rate. 3. Acute exacerbation of chronic systolic heart failure with baseline ejection fraction of 45%. 4. Nonhealing ulcer of the foot. 5. Hypertension. PLAN: We will treat the patient with nitrates and Lasix and statin. I am not going to start him on beta blockers at this time as the heart rate is somewhat slow. I will add an YUNIEL inhibitor and amlodipine for better blood pressure control. MMODL / IJN: [id number] /
[2017-11-13] MEDS: LISINOPRIL 5 MG TAB PO SCH (12:02)
[2017-11-13] MEDS: amLODIPine 10 MG TAB PO SCH (12:02)
[2017-11-13 12:05] LABS: Glucose,Whole Blood 182 mg/dL (75-99)
[2017-11-13] MEDS ORDERED: FUROSEMIDE 10 MG/ML 2 ML VIAL IV ONE (13:18)
--- NOTE | 2017-11-13 14:29 | P.HPIM ---
History of Present Illness H&P Date: 11/13/17 Chief Complaint: Shortness of breath, fatigue, right foot wound 82-year-old male who presented to the emergency room with a chief complaint of shortness of breath, fatigue, weakness, and wound to his great right toe. Patient states over the last few weeks he has felt increasing more weak. His family brought him to the hospital for further evaluation. The patient has a history of coronary artery disease, heart failure, COPD, diabetes mellitus, CVA, hyperlipidemia, hypertension, osteoarthritis, myocardial infarction, sleep apnea without use of his CPAP. 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 Patient underwent EGD in 2017 which revealed esophagitis and mild antral gastritis. Patient is unable to recall when he had his last colonoscopy. Chest x-ray: Negative for an acute process. X-ray right ankle: Small avulsion may be present inferior to the medial malleolus. Vascular calcification. X-ray right foot: No suspicious changes of acute osteomyelitis, open wound inferior medial great toe, radiopaque foreign body inferior to the distal phalanx at the distal interphalangeal joint space great toe. Laboratory data: WBC 11.3. Hemoglobin 7.3. Platelet count 664. Sodium 133. Potassium 5.0. BUN 38. Creatinine 1.30 glucose 354 AST 70. ALT 83. Pancreatic enzymes within normal limits. Troponin: 0.066, 0.056 BNP: 3070 Stool for occult blood was positive The patient was admitted to the hospital under the care of Dr. Quesada. Consultations were placed to cardiology, infectious disease, and GI. Review of Systems Those systems with pertinent positive or pertinent negative responses have been documented in the HPI Past Medical History Past Medical History: Coronary Artery Disease (CAD), Cancer, Heart Failure, COPD , CVA/TIA, Diabetes Mellitus, Eye Disorder, Hyperlipidemia, Hypertension, Myocardial Infarction ([place]), Osteoarthritis ([place]), Prostate Disorder, Sleep Apnea/ CPAP/BIPAP Additional Past Medical History / Comment(s): 2013 L renal cancer with surgery- partial nephrectomy/spleenectomy/distal portion of pancreas removed at [facility], IDDM type II, TIA, [place] unknown date, BPH, gastritis, small hiatal hernia, past discitis T9-T10, arthritis bilateral hands/back, TARIQ-does not tolerate his CPAP, past R great toe ulcer/infection, bilateral laser eye surgery for "alittle leakage". Last Myocardial Infarction Date:: UNKNOWN History of Any Multi-Drug Resistant Organisms: MRSA Date of last positivie culture/infection: 2013 MDRO Source:: left leg Past Surgical History: Coronary Bypass/CABG, Heart Catheterization Additional Past Surgical History / Comment(s): partial L nephrectomy, distal pancreatectomy, splenectomy-at 2000 CABG-3 vessel, EGD, colonoscopy, deviated septum surgery, skin/oral lesion removals, R carpal tunnel release, bilateral cataract removal, bilateral laser eye surgery for "leakage" Past Anesthesia/Blood Transfusion Reactions: Previous Problems w/ Anesthesia Additional Past Anesthesia/Blood Transfusion Reaction / Comment(s): 'TROUBLE COMING OUT OF ANESTESIA' - DELUSIONAL. Pt has received blood in past without reaction. Smoking Status: Never smoker - Past Family History Father Family Medical History: Myocardial Infarction ([place]) Mother Family Medical History: COPD Medications and Allergies Home Medications Medication Instructions Recorded Confirmed Type Insulin Detemir [Levemir Flextouch] 60 units SQ HS 12/21/14 11/13/17 History Montelukast [Singulair] 10 mg PO HS 12/21/14 11/13/17 History Aspirin EC [Ecotrin Low Dose] 81 mg PO HS 02/07/16 11/13/17 History Insulin Aspart [NovoLOG Flexpen] 17 units SQ AC-TID 02/07/16 11/13/17 History Isosorbide Mononitrate ER [Imdur] 30 mg PO DAILY 02/07/16 11/13/17 History Magnesium Oxide [Mag-Ox] 250 mg PO DAILY 02/07/16 11/13/17 History Pravastatin Sodium 40 mg PO HS 02/07/16 11/13/17 History Zinc 50 mg PO DAILY 02/07/16 11/13/17 History Albuterol Nebulized [Ventolin 2.5 mg INHALATION RT-TID PRN 04/02/16 11/13/17 History Nebulized] Furosemide [Lasix] 40 mg PO DAILY 04/02/16 11/13/17 History Potassium Chloride ER [K-Dur 20] 40 meq PO DAILY 04/02/16 11/13/17 History [place]-3 Fatty Acids/Fish Oil [Fish 1 cap PO DAILY 08/13/16 11/13/17 History Oil 1,000 mg Softgel] Acetaminophen Tab [Tylenol] 500 - 1,000 mg PO Q6HR PRN 03/17/17 11/13/17 History Escitalopram [Lexapro] 20 mg PO DAILY 03/17/17 11/13/17 History Pantoprazole [Protonix] 40 mg PO DAILY #30 tab 03/21/17 11/13/17 Rx Cyanocobalamin [Vitamin B-12] 500 mcg PO MOWEFR 11/12/17 11/13/17 History Insulin Aspart [Novolog Flexpen] See Protocol SQ AC-TID PRN 11/12/17 11/13/17 History Polyethylene Glycol 3350 [Miralax] 17 gm PO DAILY 11/12/17 11/13/17 History predniSONE 10 mg PO DAILY 11/12/17 11/13/17 History Budesonide-Formot 160-4.5 Mcg 2 puff INHALATION BID 11/13/17 11/13/17 History [Symbicort 160-4.5 Mcg Inhaler] Allergies Allergy/AdvReac Type Severity Reaction Status Date / Time Penicillins Allergy Unknown Rash/Hives Verified 11/12/17 17:58 atorvastatin calcium Allergy Unknown Verified 11/12/17 17:58 [From Lipitor] clonazepam [From Klonopin] Allergy Hallucinati Verified 11/12/17 17:58 ons codeine Allergy Hallucinati Verified 11/12/17 17:58 ons haloperidol [From Haldol] Allergy Hallucinati Verified 11/12/17 17:58 ons haloperidol lactate Allergy Hallucinati Verified 11/12/17 17:58 [From Haldol] ons hydromorphone HCl Allergy Hallucinati Verified 11/12/17 17:58 [From Dilaudid] ons methylphenidate HCl Allergy Hallucinati Verified 11/12/17 17:58 [From Ritalin] ons morphine Allergy Hallucinati Verified 11/12/17 17:58 ons propofol Allergy Hallucinati Verified 11/12/17 17:58 ons quetiapine fumarate Allergy Hallucinati Verified 11/12/17 17:58 [From Seroquel] ons Sulfa (Sulfonamide Allergy Unknown Verified 11/12/17 17:58 Antibiotics) vancomycin Allergy Unknown Verified 11/12/17 17:58 ativan AdvReac Unknown Uncoded 11/12/17 14:18 Physical Exam Vitals: Vital Signs Temp Pulse Pulse Resp BP BP Pulse Ox 11/13/17 12:00 70 18 161/83 98 11/13/17 11:44 65 18 166/87 96 11/13/17 06:42 97.7 F 69 19 178/91 99 11/13/17 05:58 17 11/13/17 04:01 98.9 F 62 17 159/117 98 11/13/17 01:41 17 11/13/17 00:36 76 18 154/69 99 11/13/17 00:04 97.4 F L 73 18 167/74 98 11/12/17 20:00 82 18 97 11/12/17 19:25 98.2 F 66 18 148/79 99 11/12/17 18:00 98.1 F 76 18 157/79 97 11/12/17 17:58 86 11/12/17 14:12 98.7 F 83 18 145/65 98 Intake and Output 11/12/17 11/13/17 11/13/17 22:59 06:59 14:59 Output Total 375 600 Balance -375 -600 Output: Urine 375 600 Other: Voiding Method Toilet Urinal # Voids 1 Weight 111.13 kg GENERAL: This is a 82-year-old male in no apparent distress at the time of examination. Pleasant and cooperative. HEENT: Head is atraumatic, normocephalic. Pupils are equal, round, and reactive to light. Sclerae anicteric. Conjunctivae are clear. Mucus membranes of the mouth are moist. Neck is supple. RESPIRATORY: Clear to ausculation. No wheezes, rales, or rhonchi. No use of accessory muscles. Patient maintaining oxygen saturation greater than 92%. No chest wall tenderness is noted on palpation or with deep breathing. CARDIOVASCULAR: Irregular rate and rhythm. S1 and S2 noted. No systolic or diastolic murmur auscultated. No JVD noted. No S3 or S4 noted. GASTROINTESTINAL: No distention noted. Abdomen soft and round. Normal active bowel sounds auscultated x 4 quadrants. No pain or tenderness noted upon palpation. INTEGUMENTARY: Wound noted to great right toe. No cyanosis. No jaundice. No rashes noted. No cellulitis noted. EXTREMITIES: 1+ peripheral pulses. No evidence of peripheral edema. No calf tenderness noted. NEUROLOGIC: Cranial nerves II-XII intact. PSYCHIATRIC: Awake, alert, and oriented X 3. Appropriate affect. Intact judgement and insight. Results CBC & Chem 7: 11/13/17 08:46 11/13/17 08:46 Labs: Abnormal Lab Results - Last 24 Hours (Table) 11/12/17 11/12/17 11/12/17 Range/Units 15:20 15:20 15:20 WBC 11.3 H (3.8-10.6) k/uL RBC 3.70 L (4.30-5.90) m/uL Hgb 7.3 L (13.0-17.5) gm/dL Hct 25.0 L (39.0-53.0) % MCV 67.6 L (80.0-100.0) fL MCH 19.8 L (25.0-35.0) pg MCHC 29.3 L (31.0-37.0) g/dL RDW 18.1 H (11.5-15.5) % Plt Count 664 H (150-450) k/uL Neutrophils # (Manual) 10.40 H (1.3-7.7) k/uL Lymphocytes # (Manual) 0.45 L (1.0-4.8) k/uL Nucleated RBCs 106 H (0-0) /100 WBC PT (9.0-12.0) sec INR (<1.2) Sodium 133 L (137-145) mmol/L Chloride 93 L (98-107) mmol/L Carbon Dioxide (22-30) mmol/L BUN 38 H (9-20) mg/dL Creatinine 1.30 H (0.66-1.25) mg/dL Glucose 354 H (74-99) mg/dL POC Glucose (mg/dL) (75-99) mg/dL AST 70 H (17-59) U/L ALT 83 H (21-72) U/L Total Creatine Kinase 641 H (55-170) U/L CK-MB (CK-2) 19.9 H* (0.0-2.4) ng/mL Troponin I 0.066 H* (0.000-0.034) ng/mL Urine Glucose (UA) (Negative) 11/12/17 11/12/17 11/12/17 Range/Units 15:20 15:20 19:23 WBC (3.8-10.6) k/uL RBC (4.30-5.90) m/uL Hgb (13.0-17.5) gm/dL Hct (39.0-53.0) % MCV (80.0-100.0) fL MCH (25.0-35.0) pg MCHC (31.0-37.0) g/dL RDW (11.5-15.5) % Plt Count (150-450) k/uL Neutrophils # (Manual) (1.3-7.7) k/uL Lymphocytes # (Manual) (1.0-4.8) k/uL Nucleated RBCs (0-0) /100 WBC PT 13.2 H (9.0-12.0) sec INR 1.4 H (<1.2) Sodium (137-145) mmol/L Chloride (98-107) mmol/L Carbon Dioxide (22-30) mmol/L BUN (9-20) mg/dL Creatinine (0.66-1.25) mg/dL Glucose (74-99) mg/dL POC Glucose (mg/dL) 434 H (75-99) mg/dL AST (17-59) U/L ALT (21-72) U/L Total Creatine Kinase (55-170) U/L CK-MB (CK-2) (0.0-2.4) ng/mL Troponin I (0.000-0.034) ng/mL Urine Glucose (UA) Trace H (Negative) 11/12/17 11/12/17 11/13/17 Range/Units 21:45 22:09 00:33 WBC (3.8-10.6) k/uL RBC (4.30-5.90) m/uL Hgb (13.0-17.5) gm/dL Hct (39.0-53.0) % MCV (80.0-100.0) fL MCH (25.0-35.0) pg MCHC (31.0-37.0) g/dL RDW (11.5-15.5) % Plt Count (150-450) k/uL Neutrophils # (Manual) (1.3-7.7) k/uL Lymphocytes # (Manual) (1.0-4.8) k/uL Nucleated RBCs (0-0) /100 WBC PT (9.0-12.0) sec INR (<1.2) Sodium (137-145) mmol/L Chloride (98-107) mmol/L Carbon Dioxide (22-30) mmol/L BUN (9-20) mg/dL Creatinine (0.66-1.25) mg/dL Glucose (74-99) mg/dL POC Glucose (mg/dL) 328 H (75-99) mg/dL AST (17-59) U/L ALT (21-72) U/L Total Creatine Kinase 536 H 550 H (55-170) U/L CK-MB (CK-2) 17.9 H* 18.0 H* (0.0-2.4) ng/mL Troponin I 0.056 H* 0.060 H* (0.000-0.034) ng/mL Urine Glucose (UA) (Negative) 11/13/17 11/13/17 11/13/17 Range/Units 06:51 08:46 08:46 WBC 11.0 H (3.8-10.6) k/uL RBC 4.04 L (4.30-5.90) m/uL Hgb 7.8 L (13.0-17.5) gm/dL Hct 27.0 L (39.0-53.0) % MCV 66.8 L (80.0-100.0) fL MCH 19.2 L (25.0-35.0) pg MCHC 28.8 L (31.0-37.0) g/dL RDW 18.1 H (11.5-15.5) % Plt Count 667 H (150-450) k/uL Neutrophils # (Manual) 9.90 H (1.3-7.7) k/uL Lymphocytes # (Manual) 0.77 L (1.0-4.8) k/uL Nucleated RBCs 93 H (0-0) /100 WBC PT (9.0-12.0) sec INR (<1.2) Sodium (137-145) mmol/L Chloride 96 L (98-107) mmol/L Carbon Dioxide 31 H (22-30) mmol/L BUN 35 H (9-20) mg/dL Creatinine (0.66-1.25) mg/dL Glucose 148 H (74-99) mg/dL POC Glucose (mg/dL) 123 H (75-99) mg/dL AST 122 H (17-59) U/L ALT 79 H (21-72) U/L Total Creatine Kinase (55-170) U/L CK-MB (CK-2) (0.0-2.4) ng/mL Troponin I (0.000-0.034) ng/mL Urine Glucose (UA) (Negative) 11/13/17 Range/Units 11:55 WBC (3.8-10.6) k/uL RBC (4.30-5.90) m/uL Hgb (13.0-17.5) gm/dL Hct (39.0-53.0) % MCV (80.0-100.0) fL MCH (25.0-35.0) pg MCHC (31.0-37.0) g/dL RDW (11.5-15.5) % Plt Count (150-450) k/uL Neutrophils # (Manual) (1.3-7.7) k/uL Lymphocytes # (Manual) (1.0-4.8) k/uL Nucleated RBCs (0-0) /100 WBC PT (9.0-12.0) sec INR (<1.2) Sodium (137-145) mmol/L Chloride (98-107) mmol/L Carbon Dioxide (22-30) mmol/L BUN (9-20) mg/dL Creatinine (0.66-1.25) mg/dL Glucose (74-99) mg/dL POC Glucose (mg/dL) 182 H (75-99) mg/dL AST (17-59) U/L ALT (21-72) U/L Total Creatine Kinase (55-170) U/L CK-MB (CK-2) (0.0-2.4) ng/mL Troponin I (0.000-0.034) ng/mL Urine Glucose (UA) (Negative) Thrombosis Risk Factor Assmnt - Choose All That Apply Any of the Below Risk Factors Present?: Yes Each Factor Represents 1 point: Abnormal pulmonary function (COPD), Heart failure (<1month), Obesity (BMI >25) Other Risk Factors: Yes Each Risk Factor Represents 2 Points: Malignancy Each Risk Factor Represents 3 Points: Age 75 years or older Other congenital or acquired thrombophilia - If yes, enter type in comment: No Thrombosis Risk Factor Assessment Total Risk Factor Score: 8 Thrombosis Risk Factor Assessment Level: High Risk Assessment and Plan Plan: ASSESSMENT: Symptomatic anemia, hgb 7.3 on admission, stool for occult blood positive, suspect secondary to acute blood loss from GI source Non-ST elevated myocardial infarction Atrial fibrillation with controlled ventricular rate, not on long-term anticoagulation Acute exacerbation of systolic congestive heart failure, EF 45% 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 Quesada Cardiology in consult. Appreciate recommendations and input Continue Lasix per cardiology YUNIEL inhibitor and amlodipine added per cardiology. Infectious disease on consult. Await recommendations and input Obtain wound cultures of right great toe GI on consult. Appreciate recommendations and input Transfuse [address] Quesada. Administer 20 mg Lasix IV after transfusion Home meds as appropriate Monitor labs GI prophylaxis: Protonix 40 mg IV Daily DVT prophylaxis: SCDs to bilateral lower extremities Monitor vital signs and address as appropriate Discharge planning: Patient to return home when stable Further recommendations pending patient's course Nurse practitioner note has been reviewed by physician. Signing provider agrees with the documented findings, assessment, and plan of care.
[2017-11-13] MEDS ORDERED: MELATONIN 3 MG TABLET PO PRN (16:50)
[2017-11-13 17:04] LABS: Glucose,Whole Blood 304 mg/dL (75-99)
[2017-11-13 21:44] LABS: Glucose,Whole Blood 224 mg/dL (75-99)
[2017-11-13] MEDS: INSULIN DETEMIR 100 UNIT/ML 10 ML VIAL SQ SCH (22:12)
[2017-11-13] MEDS: MONTELUKAST 10 MG TAB PO SCH (22:13)
[2017-11-13] MEDS: PRAVASTATIN SODIUM 40 MG TAB PO SCH (22:13)
--- NOTE | 2017-11-13 23:53 | P.CONS ---
History of Present Illness - Reason for Consult Consult date: 11/13/17 - Chief Complaint Progressive fatigue shortness of breath - History of Present Illness 82-year-old male who has multiple medical problems that includes a known history of underlying coronary artery disease, status post CABG and several cardiac catheterizations. 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 He is known to the wound healing Center because of nonhealing ulcerations to his feet partially due to difficulty with compliance to offloading and shoes. The patient now presents to hospital with his family with apparently many weeks of increasing symptoms. He's been having increasing weakness and some increasing amount of his baseline confusion. He was having greater difficulty ambulating and there was concern as to chronic ulceration to his foot. There is having difficulties having the foot evaluated and consequently came to the emergency center. There with his weakness evaluation occurred was found evidence of a non -ST elevated myocardial infarction as well as profound anemia likely with gastrointestinal loss. He has been admitted. He is receiving packed red cell transfusion. He is been seen by cardiology. But because of his many difficulties, including GI bleed was not thought to be a candidate for any specific intervention at this time. He does have atrial fibrillation with controlled rate and with his bleeding was not thought to be a candidate for any further anticoagulation or antiplatelet therapies. Infectious diseases consultation request regarding the chronic calloused area to the right foot. At the great toe. Review of Systems The patient is somewhat vague, but has not been feeling well for the last many weeks HEENT:Denies headache or acute visual change. Denies sinus or mouth discomforts. Denies neck stiffness or pain. Denies significant oral cavity pain. Denies difficulty on swallowing. Lungs: He does have baseline shortness of breath without cough or production or hemoptysis Cardiovascular: There is dyspnea on exertion but denies chest pain feels poorly poor exercise tolerance Gastrointestinal:Denies nausea, vomiting, diarrhea, constipation, hematemesis, melena, hematochezia. No no significant change of bowel habit noticed. Musculoskeletal: Chronic musculoskeletal pain Skin: As per the HPI chronic ulcer to the right foot Neuro: Denies headache or visual change. Denies any new onset weakness or difficulty with ambulation. Denies falls or seizures. Psychiatric:Denies anxiety or depression. Endocrine: Progressive fatigue weight is been stable Past Medical History Past Medical History: Coronary Artery Disease (CAD), Cancer, Heart Failure, COPD , CVA/TIA, Diabetes Mellitus, Eye Disorder, Hyperlipidemia, Hypertension, Myocardial Infarction (NE), Osteoarthritis (OA), Prostate Disorder, Sleep Apnea/ CPAP/BIPAP Additional Past Medical History / Comment(s): 2013 L renal cancer with surgery- partial nephrectomy/spleenectomy/distal portion of pancreas removed at [facility], IDDM type II, TIA, NE unknown date, BPH, gastritis, small hiatal hernia, past discitis T9-T10, arthritis bilateral hands/back, TARIQ-does not tolerate his CPAP, past R great toe ulcer/infection, bilateral laser eye surgery for "alittle leakage". Last Myocardial Infarction Date:: UNKNOWN History of Any Multi-Drug Resistant Organisms: MRSA Year Discovered:: 2013 MDRO Source:: left leg Past Surgical History: Coronary Bypass/CABG, Heart Catheterization Additional Past Surgical History / Comment(s): partial L nephrectomy, distal pancreatectomy, splenectomy-at [place], 2000 CABG-3 vessel, EGD, colonoscopy, deviated septum surgery, skin/oral lesion removals, R carpal tunnel release, bilateral cataract removal, bilateral laser eye surgery for "leakage" Past Anesthesia/Blood Transfusion Reactions: Previous Problems w/ Anesthesia Additional Past Anesthesia/Blood Transfusion Reaction / Comm: 'TROUBLE COMING OUT OF ANESTESIA' - DELUSIONAL. Pt has received blood in past without reaction. Smoking Status: Never smoker - Past Family History Father Family Medical History: Myocardial Infarction (NE) Mother Family Medical History: COPD Medications and Allergies Home Medications and Allergies Comment(s): Current Medications Acetaminophen (Tylenol Tab) 650 mg PO Q6HR PRN PRN Reason: Mild Pain or Fever > 100.5 Albuterol Sulfate (Ventolin Nebulized) 2.5 mg INHALATION RT-TID PRN PRN Reason: Shortness Of Breath Amlodipine Besylate (Norvasc) 10 mg PO DAILY [facility] Last Admin: 11/13/17 12:02 Dose: 10 mg Cyanocobalamin (Vitamin B-12) 500 mcg PO MOWEFR [facility] Last Admin: 11/13/17 09:17 Dose: 500 mcg Escitalopram Oxalate (Lexapro) 20 mg PO DAILY [facility] Last Admin: 11/13/17 09:17 Dose: 20 mg Furosemide (Lasix) 40 mg PO Q8HR [facility] Last Admin: 11/13/17 23:24 Dose: 40 mg Ibuprofen (Motrin) 400 mg PO Q6HR PRN PRN Reason: Mild Pain or Fever > 100.5 Insulin Aspart (Novolog) 0 unit SQ ACHS [facility] PRN Reason: Protocol Last Admin: 11/13/17 22:13 Dose: 4 unit Insulin Aspart (Novolog) 10 unit SQ AC-TID [facility] Insulin Detemir (Levemir) 60 unit SQ HS [facility] Last Admin: 11/13/17 22:12 Dose: 60 unit Isosorbide Mononitrate (Imdur) 30 mg PO DAILY [facility] Last Admin: 11/13/17 09:17 Dose: 30 mg Lisinopril (Zestril) 5 mg PO DAILY [facility] Last Admin: 11/13/17 12:02 Dose: 5 mg Magnesium Oxide (Mag-Ox) 400 mg PO DAILY [facility] Last Admin: 11/13/17 09:17 Dose: 400 mg Melatonin (Melatonin) 3 mg PO HS PRN PRN Reason: Insomnia Last Admin: 11/13/17 22:13 Dose: 3 mg Montelukast Sodium (Singulair) 10 mg PO HS [facility] Last Admin: 11/13/17 22:13 Dose: 10 mg Naloxone HCl (Narcan) 0.2 mg IV Q2M PRN PRN Reason: Opioid Reversal Ondansetron HCl (Zofran) 4 mg IVP Q8HR PRN PRN Reason: Nausea And Vomiting Pantoprazole Sodium (Protonix) 40 mg IV DAILY [facility] Last Admin: 11/13/17 09:17 Dose: 40 mg Polyethylene Glycol (Miralax) 17 gm PO DAILY [facility] Last Admin: 11/13/17 09:18 Dose: 17 gm Potassium Chloride (K-Dur 20) 40 meq PO DAILY [facility] Last Admin: 11/13/17 09:18 Dose: 40 meq Pravastatin Sodium (Pravachol) 40 mg PO HS [facility] Last Admin: 11/13/17 22:13 Dose: 40 mg Prednisone () 10 mg PO DAILY [facility] Last Admin: 11/13/17 09:18 Dose: 10 mg Tramadol HCl (Ultram) 50 mg PO Q6H PRN PRN Reason: Moderate Pain Home Medications Medication Instructions Recorded Confirmed Type Insulin Detemir [Levemir Flextouch] 60 units SQ HS 12/21/14 11/13/17 History Montelukast [Singulair] 10 mg PO HS 12/21/14 11/13/17 History Aspirin EC [Ecotrin Low Dose] 81 mg PO HS 02/07/16 11/13/17 History Insulin Aspart [NovoLOG Flexpen] 17 units SQ AC-TID 02/07/16 11/13/17 History Isosorbide Mononitrate ER [Imdur] 30 mg PO DAILY 02/07/16 11/13/17 History Magnesium Oxide [Mag-Ox] 250 mg PO DAILY 02/07/16 11/13/17 History Pravastatin Sodium 40 mg PO HS 02/07/16 11/13/17 History Zinc 50 mg PO DAILY 02/07/16 11/13/17 History Albuterol Nebulized [Ventolin 2.5 mg INHALATION RT-TID PRN 04/02/16 11/13/17 History Nebulized] Furosemide [Lasix] 40 mg PO DAILY 04/02/16 11/13/17 History Potassium Chloride ER [K-Dur 20] 40 meq PO DAILY 04/02/16 11/13/17 History Rochelle-3 Fatty Acids/Fish Oil [Fish 1 cap PO DAILY 08/13/16 11/13/17 History Oil 1,000 mg Softgel] Acetaminophen Tab [Tylenol] 500 - 1,000 mg PO Q6HR PRN 03/17/17 11/13/17 History Escitalopram [Lexapro] 20 mg PO DAILY 03/17/17 11/13/17 History Pantoprazole [Protonix] 40 mg PO DAILY #30 tab 03/21/17 11/13/17 Rx Cyanocobalamin [Vitamin B-12] 500 mcg PO MOWEFR 11/12/17 11/13/17 History Insulin Aspart [Novolog Flexpen] See Protocol SQ AC-TID PRN 11/12/17 11/13/17 History Polyethylene Glycol 3350 [Miralax] 17 gm PO DAILY 11/12/17 11/13/17 History predniSONE 10 mg PO DAILY 11/12/17 11/13/17 History Budesonide-Formot 160-4.5 Mcg 2 puff INHALATION BID 11/13/17 11/13/17 History [Symbicort 160-4.5 Mcg Inhaler] Allergies Allergy/AdvReac Type Severity Reaction Status Date / Time Penicillins Allergy Unknown Rash/Hives Verified 11/12/17 17:58 atorvastatin calcium Allergy Unknown Verified 11/12/17 17:58 [From Lipitor] clonazepam [From Klonopin] Allergy Hallucinati Verified 11/12/17 17:58 ons codeine Allergy Hallucinati Verified 11/12/17 17:58 ons haloperidol [From Haldol] Allergy Hallucinati Verified 11/12/17 17:58 ons haloperidol lactate Allergy Hallucinati Verified 11/12/17 17:58 [From Haldol] ons hydromorphone HCl Allergy Hallucinati Verified 11/12/17 17:58 [From Dilaudid] ons methylphenidate HCl Allergy Hallucinati Verified 11/12/17 17:58 [From Ritalin] ons morphine Allergy Hallucinati Verified 11/12/17 17:58 ons propofol Allergy Hallucinati Verified 11/12/17 17:58 ons quetiapine fumarate Allergy Hallucinati Verified 11/12/17 17:58 [From Seroquel] ons Sulfa (Sulfonamide Allergy Unknown Verified 11/12/17 17:58 Antibiotics) vancomycin Allergy Unknown Verified 11/12/17 17:58 ativan AdvReac Unknown Uncoded 11/12/17 14:18 Physical Exam Vitals: Vital Signs Temp Pulse Pulse Resp BP BP Pulse Ox 11/13/17 19:02 98.2 F 86 16 136/63 11/13/17 17:20 78 156/69 11/13/17 16:50 78 148/71 11/13/17 16:40 96.2 F L 71 16 103/57 11/13/17 16:00 96.2 F L 89 20 129/75 95 11/13/17 12:00 70 18 161/83 98 11/13/17 11:44 65 18 166/87 96 11/13/17 06:42 97.7 F 69 19 178/91 99 11/13/17 05:58 17 11/13/17 04:01 98.9 F 62 17 159/117 98 11/13/17 01:41 17 11/13/17 00:36 76 18 154/69 99 11/13/17 00:04 97.4 F L 73 18 167/74 98 Intake and Output 11/13/17 11/13/17 11/13/17 06:59 14:59 22:59 Intake Total 310 Output Total 375 600 Balance -375 -600 310 Intake: Blood Product 310 Rc As-1 Unit 310 [id number] Output: Urine 375 600 Other: Voiding Method Toilet Urinal Urinal # Voids 1 Weight 111.13 kg 109 kg Pleasant elderly male, supine in bed, seems comfortable, family is present and voice complaints for him the patient himself again relates he feels relatively well HEENT: Anicteric conjunctiva are pink and moist nasal mucosa grossly intact without significant lesions, there is no thrush. Neck: The neck is supple without significant lymphadenopathy or thyromegaly. Lungs: There are symmetrical air entry, few crackles at the bases no bronchial sounds Heart: Irregularly irregular with an audible S1 and S2 soft S4 no murmur click or rub Abdomen: Obese, Positive bowel sounds soft and nontender without palpable masses or organomegaly. There was no guarding or rebound. Extremities: The upper extremities have excellent pulses they are symmetric, no significant petechiae or telangiectasia. No splinter hemorrhages were noted. Lower extremities have evidence of minimal edema. The right great toe plantar surface has area of a chronic callus with some ulceration that has been intimately present over quite some time. There is no expressible purulence. There is no evidence of any ascending erythema. 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 The family is concerned about a foreign body however review of x-ray shows some present since 2017. Neuro: Awake alert oriented to person place and time. 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 Results CBC & Chem 7: 11/13/17 08:46 11/13/17 08:46 Labs: Abnormal Lab Results - Last 24 Hours (Table) 11/13/17 11/13/17 11/13/17 Range/Units 00:33 06:51 08:46 WBC 11.0 H (3.8-10.6) k/uL RBC 4.04 L (4.30-5.90) m/uL Hgb 7.8 L (13.0-17.5) gm/dL Hct 27.0 L (39.0-53.0) % MCV 66.8 L (80.0-100.0) fL MCH 19.2 L (25.0-35.0) pg MCHC 28.8 L (31.0-37.0) g/dL RDW 18.1 H (11.5-15.5) % Plt Count 667 H (150-450) k/uL Neutrophils # (Manual) 9.90 H (1.3-7.7) k/uL Lymphocytes # (Manual) 0.77 L (1.0-4.8) k/uL Nucleated RBCs 93 H (0-0) /100 WBC Chloride (98-107) mmol/L Carbon Dioxide (22-30) mmol/L BUN (9-20) mg/dL Glucose (74-99) mg/dL POC Glucose (mg/dL) 123 H (75-99) mg/dL AST (17-59) U/L ALT (21-72) U/L Total Creatine Kinase 550 H (55-170) U/L CK-MB (CK-2) 18.0 H* (0.0-2.4) ng/mL Troponin I 0.060 H* (0.000-0.034) ng/mL Crossmatch 11/13/17 11/13/17 11/13/17 Range/Units 08:46 11:55 14:14 WBC (3.8-10.6) k/uL RBC (4.30-5.90) m/uL Hgb (13.0-17.5) gm/dL Hct (39.0-53.0) % MCV (80.0-100.0) fL MCH (25.0-35.0) pg MCHC (31.0-37.0) g/dL RDW (11.5-15.5) % Plt Count (150-450) k/uL Neutrophils # (Manual) (1.3-7.7) k/uL Lymphocytes # (Manual) (1.0-4.8) k/uL Nucleated RBCs (0-0) /100 WBC Chloride 96 L (98-107) mmol/L Carbon Dioxide 31 H (22-30) mmol/L BUN 35 H (9-20) mg/dL Glucose 148 H (74-99) mg/dL POC Glucose (mg/dL) 182 H (75-99) mg/dL AST 122 H (17-59) U/L ALT 79 H (21-72) U/L Total Creatine Kinase (55-170) U/L CK-MB (CK-2) (0.0-2.4) ng/mL Troponin I (0.000-0.034) ng/mL Crossmatch See Detail 11/13/17 11/13/17 Range/Units 16:59 21:33 WBC (3.8-10.6) k/uL RBC (4.30-5.90) m/uL Hgb (13.0-17.5) gm/dL Hct (39.0-53.0) % MCV (80.0-100.0) fL MCH (25.0-35.0) pg MCHC (31.0-37.0) g/dL RDW (11.5-15.5) % Plt Count (150-450) k/uL Neutrophils # (Manual) (1.3-7.7) k/uL Lymphocytes # (Manual) (1.0-4.8) k/uL Nucleated RBCs (0-0) /100 WBC Chloride (98-107) mmol/L Carbon Dioxide (22-30) mmol/L BUN (9-20) mg/dL Glucose (74-99) mg/dL POC Glucose (mg/dL) 304 H 224 H (75-99) mg/dL AST (17-59) U/L ALT (21-72) U/L Total Creatine Kinase (55-170) U/L CK-MB (CK-2) (0.0-2.4) ng/mL Troponin I (0.000-0.034) ng/mL Crossmatch Microbiology - Last 24 Hours (Table) 11/12/17 15:20 Blood Culture - Preliminary Blood No Growth after 24 hours Laboratory Results WBC 11.0 k/uL (3.8-10.6) H 11/13/17 08:46 RBC 4.04 m/uL (4.30-5.90) L 11/13/17 08:46 Hgb 7.8 gm/dL (13.0-17.5) L 11/13/17 08:46 Hct 27.0 % (39.0-53.0) L 11/13/17 08:46 MCV 66.8 fL (80.0-100.0) L 11/13/17 08:46 MCH 19.2 pg (25.0-35.0) L 11/13/17 08:46 MCHC 28.8 g/dL (31.0-37.0) L 11/13/17 08:46 RDW 18.1 % (11.5-15.5) H 11/13/17 08:46 Plt Count 667 k/uL (150-450) H 11/13/17 08:46 Neutrophils % (Manual) 90 % 11/13/17 08:46 Lymphocytes % (Manual) 7 % 11/13/17 08:46 Monocytes % (Manual) 3 % 11/13/17 08:46 Eosinophils % (Manual) 1 % 11/13/17 08:46 Neutrophils # (Manual) 9.90 k/uL (1.3-7.7) H 11/13/17 08:46 Lymphocytes # (Manual) 0.77 k/uL (1.0-4.8) L 11/13/17 08:46 Monocytes # (Manual) 0.33 k/uL (0-1.0) 11/13/17 08:46 Eosinophils # (Manual) 0.11 k/uL (0-0.7) 11/13/17 08:46 Nucleated RBCs 93 /100 WBC (0-0) H 11/13/17 08:46 Differential Comment 11/13/17 08:46 Manual Slide Review Performed 11/13/17 08:46 Large Platelets Present 11/13/17 08:46 Dimorphic RBCs Present 11/13/17 08:46 Polychromasia Present 11/13/17 08:46 Hypochromasia Marked 11/13/17 08:46 Hypochromasia (manual) Present 11/12/17 15:20 Poikilocytosis Marked 11/13/17 08:46 Poikilocytosis (manual Present 11/12/17 15:20 Anisocytosis Slight 11/13/17 08:46 Anisocytosis (manual) Present 11/12/17 15:20 Microcytosis Marked 11/13/17 08:46 Target Cells Present 11/13/17 08:46 Tear Drop Cells Present 11/12/17 15:20 Ovalocytes Present 11/12/17 15:20 Crenated Cell Present 11/12/17 15:20 Fragmented RBCs Present 11/13/17 08:46 PT 13.2 sec (9.0-12.0) H 11/12/17 15:20 INR 1.4 (<1.2) H 11/12/17 15:20 APTT 25.9 sec (22.0-30.0) 11/12/17 15:20 Sodium 140 mmol/L (137-145) 11/13/17 08:46 Potassium 4.1 mmol/L (3.5-5.1) 11/13/17 08:46 Chloride 96 mmol/L (98-107) L 11/13/17 08:46 Carbon Dioxide 31 mmol/L (22-30) H 11/13/17 08:46 Anion Gap 13 mmol/L 11/13/17 08:46 BUN 35 mg/dL (9-20) H 11/13/17 08:46 Creatinine 1.13 mg/dL (0.66-1.25) 11/13/17 08:46 Est GFR (CKD-EPI)AfAm 71 (>60 ml/min/1.73 sqM) 11/13/17 08:46 Est GFR (CKD-EPI)NonAf 61 (>60 ml/min/1.73 sqM) 11/13/17 08:46 Glucose 148 mg/dL (74-99) H 11/13/17 08:46 POC Glucose (mg/dL) 224 mg/dL (75-99) H 11/13/17 21:33 POC Glu [employer] Systems Architect ID Natalia Thompson 11/13/17 21:33 Calcium 9.0 mg/dL (8.4-10.2) 11/13/17 08:46 Magnesium 2.0 mg/dL (1.6-2.3) 11/12/17 15:20 Total Bilirubin 1.0 mg/dL (0.2-1.3) 11/13/17 08:46 AST 122 U/L (17-59) H 11/13/17 08:46 ALT 79 U/L (21-72) H 11/13/17 08:46 Alkaline Phosphatase 80 U/L (38-126) 11/13/17 08:46 Total Creatine Kinase 550 U/L (55-170) H 11/13/17 00:33 CK-MB (CK-2) 18.0 ng/mL (0.0-2.4) H* 11/13/17 00:33 CK-MB (CK-2) Rel Index 3.3 11/13/17 00:33 Troponin I 0.060 ng/mL (0.000-0.034) H* 11/13/17 00:33 NT-Pro-B Natriuret Pep 3070 pg/mL 11/12/17 15:20 Total Protein 6.6 g/dL (6.3-8.2) 11/13/17 08:46 Albumin 4.2 g/dL (3.5-5.0) 11/13/17 08:46 Amylase 50 U/L (30-110) 11/12/17 15:20 Lipase 118 U/L (23-300) 11/12/17 15:20 Urine Color Colorless 11/12/17 15:20 Urine Appearance Clear (Clear) 11/12/17 15:20 Urine pH 6.5 (5.0-8.0) 11/12/17 15:20 Ur Specific Norris 1.007 (1.001-1.035) 11/12/17 15:20 Urine Protein Negative (Negative) 11/12/17 15:20 Urine Glucose (UA) Trace (Negative) H 11/12/17 15:20 Urine Ketones Negative (Negative) 11/12/17 15:20 Urine Blood Negative (Negative) 11/12/17 15:20 Urine Nitrite Negative (Negative) 11/12/17 15:20 Urine Bilirubin Negative (Negative) 11/12/17 15:20 Urine Urobilinogen <2.0 mg/dL (<2.0) 11/12/17 15:20 Ur Leukocyte Esterase Negative (Negative) 11/12/17 15:20 Stool Occult Blood Positive (Negative) 11/12/17 17:05 Blood Type A Negative 11/13/17 14:14 Blood Type Recheck No 11/13/17 14:14 Antibody Screen NEGATIVE 11/13/17 14:14 Crossmatch See Detail 11/13/17 14:14 Spec Expiration Date 11/16/2017 - 231311/13/17 14:14 Microbiology 11/12/17 15:20 Blood Blood Culture - Preliminary No Growth after 24 hours Assessment and Plan (1) Elevated troponin Current Visit: Yes Status: Acute Code(s): R74.8 - ABNORMAL LEVELS OF OTHER SERUM ENZYMES SNOMED Code(s): 107111082 (2) GI bleed Current Visit: Yes Status: Acute Code(s): K92.2 - GASTROINTESTINAL HEMORRHAGE, UNSPECIFIED SNOMED Code(s): 46179444 (3) Atrial fibrillation Current Visit: No Status: Acute Code(s): I48.91 - UNSPECIFIED ATRIAL FIBRILLATION SNOMED Code(s): 72252923 (4) Diabetic foot ulcer associated with type 2 diabetes mellitus, with fat layer exposed Narrative/Plan: 82-year-old male presents to Hospital feeling poorly for quite some time having a chronic ulceration to the plantar surface of his right great toe. He's had many ulcerations over time and is missing the wound center in the past. He now presents with this many week history of progressive fatigue and malaise. At admission there is evidence of a non-ST elevated myocardial infarction and has been evaluated by cardiology. He currently has multiple comorbidities which include gastrointestinal bleed and atrial fibrillation. Due to his current level of illness he was not thought to be a candidate for intervention or for anticoagulation therapy. He will monitored closely over time. For the gastrointestinal bleeding he is being evaluated and is receiving packed red blood cells in hopes that replenishment of his significant anemia will make him feel better and improve his cardiac status. As far as the toe is a chronic ulceration. X-ray failed without evidence of any bony infection. For tyler present since 2017 and at that site does not appear to have any open ulceration or acute bony changes. Local wound care with medical clinic will be applied in offloading is going to be needed. It is unclear what the plan will be with him at discharge. Suggest follow-up in the wound healing Center for ongoing post-evaluation and follow-up of that toe ulceration over time. Once he is more stable we can consider further debridement to that site. The site does not appear infected and would not initiate antibiotics at this point in time Current Visit: Yes Status: Acute Code(s): E11.621 - TYPE 2 DIABETES MELLITUS WITH FOOT ULCER; L97.502 - NON-PRS CHRONIC ULCER OTH PRT UNSP FOOT W FAT LAYER EXPOSED SNOMED Code(s): 7338680652639
[2017-11-14 07:14] LABS: Glucose,Whole Blood 58 mg/dL (75-99)
[2017-11-14 07:35] LABS: Glucose,Whole Blood 96 mg/dL (75-99)
[2017-11-14] MEDS: ALBUTEROL NEBULIZED 2.5 MG/3 ML INHALATION PRN ×2 (07:37→20:39)
[2017-11-14] MEDS: INSULIN ASPART 100 UNIT/ML 1 ML 10 ML VIAL SQ SCH ×7 (08:11→22:12)
[2017-11-14] MEDS: PANTOPRAZOLE 40 MG/10 ML VIAL IV SCH (08:12)
[2017-11-14] MEDS: ISOSORBIDE MONONITRATE ER 30 MG TAB.ER.24H PO SCH (08:13)
[2017-11-14] MEDS: MAGNESIUM OXIDE 400 MG TAB PO SCH (08:13)
[2017-11-14] MEDS: ESCITALOPRAM 20 MG TAB PO SCH (08:13)
[2017-11-14] MEDS: POLYETHYLENE GLYCOL 3350 17 GM POWD.PACK PO SCH (08:13)
[2017-11-14] MEDS: amLODIPine 10 MG TAB PO SCH (08:13)
[2017-11-14] MEDS: predniSONE 10 MG TAB PO SCH (08:14)
[2017-11-14] MEDS: FUROSEMIDE 40 MG TAB PO SCH ×2 (08:14→18:10)
[2017-11-14] MEDS: POTASSIUM CHLORIDE ER 20 MEQ TAB.ER PO SCH (08:14)
[2017-11-14 09:04] LABS: Albumin 3.9 g/dL (3.5-5.0); Calcium 8.8 mg/dL (8.4-10.2); Potassium 3.8 mmol/L (3.5-5.1); Total Bilirubin 1.1 mg/dL (0.2-1.3); Total Protein 6.3 g/dL (6.3-8.2)
[2017-11-14 09:15] LABS: Anisocytosis Slight; HCT 28.8 % (39.0-53.0); HGB 8.3 gm/dL (13.0-17.5); Hypochromasia Marked; MCH 20.3 pg (25.0-35.0); MCHC 28.9 g/dL (31.0-37.0); MCV 70.1 fL (80.0-100.0); Mean Platelet Volume 6.3; Microcytosis Marked; Platelet Count 628 k/uL (150-450); Poikilocytosis Marked; RBC 4.11 m/uL (4.30-5.90); RDW 18.9 % (11.5-15.5)
[2017-11-14 09:49] VITALS: BMI 34.0
[2017-11-14] MEDS: LISINOPRIL 5 MG TAB PO SCH (10:21)
[2017-11-14 11:20] LABS: Band Neutrophils % 1 %; Basophils # (M) 0.14 k/uL (0-0.2); Eosinophils # (M) 0.14 k/uL (0-0.7); Monocytes # (M) 0.86 k/uL (0-1.0); Neutrophils % (M) 82 %; Nucleated Red Blood Cells 36 /100 WBC (0-0); Total Cells Counted 100; WBC 14.4 k/uL (3.8-10.6)
[2017-11-14 11:21] LABS: Mixed Population RBC Present; Target Cells Present
[2017-11-14 11:22] LABS: Howell-Jolly Bodies Present; Polychromasia Present; RBC Fragments Present
[2017-11-14 11:24] LABS: Spherocytes Present
[2017-11-14 12:18] LABS: Glucose,Whole Blood 169 mg/dL (75-99)
--- NOTE | 2017-11-14 12:44 | P.PN ---
Subjective Progress Note Date: 11/14/17 82-year-old male who presented to the emergency room with a chief complaint of shortness of breath, fatigue, weakness, and wound to his great right toe. Patient states over the last few weeks he has felt increasing more weak. His family brought him to the hospital for further evaluation. The patient has a history of coronary artery disease, heart failure, COPD, diabetes mellitus, CVA, hyperlipidemia, hypertension, osteoarthritis, myocardial infarction, sleep apnea without use of his CPAP. 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 Patient underwent EGD in 2017 which revealed esophagitis and mild antral gastritis. Patient is unable to recall when he had his last colonoscopy. Chest x-ray: Negative for an acute process. X-ray right ankle: Small avulsion may be present inferior to the medial malleolus. Vascular calcification. X-ray right foot: No suspicious changes of acute osteomyelitis, open wound inferior medial great toe, radiopaque foreign body inferior to the distal phalanx at the distal interphalangeal joint space great toe. Laboratory data: WBC 11.3. Hemoglobin 7.3. Platelet count 664. Sodium 133. Potassium 5.0. BUN 38. Creatinine 1.30 glucose 354 AST 70. ALT 83. Pancreatic enzymes within normal limits. Troponin: 0.066, 0.056 BNP: 3070. Stool for occult blood was positive. The patient was admitted to the hospital under the care of Dr. Quesada. Consultations were placed to cardiology, infectious disease, and GI. 11/14/2017 The patient was seen and examined on the general medical unit. He received 1 unit RBC yesterday. Hemoglobin this morning is 8.3, up from 7.8 yesterday. Patient states he is less short of breath today and overall is feeling better. Patient remains in a-fib. Patient states this is not new for him and he was told he had it for the first time a few years ago. However, there is no previous documentation of this in [facility] or from Dr. Giang office to my knowledge. No family is present at the bedside to clarify. No anticoagulation at this time secondary to possible blood loss. Patient was evaluated by Dr. Loza yesterday and does not require antibiotics at this time. Patient will follow up outpatient with Dr. Loza in the wound care center after DC for possible debridement. Dr. Loza recommends therahoney and gauze dressing to right toe. Blood cultures are negative at the 24 hour sandoval. Patient has been afebrile. Patient tolerating PO intake without nausea or vomiting. Patient is hoping to be discharged home soon. Objective - Vital Signs Vital signs: Vital Signs Temp 97.7 F 11/14/17 06:32 Pulse 69 11/14/17 08:00 Resp 13 11/14/17 11:56 BP 130/46 11/14/17 06:32 Pulse Ox 95 11/14/17 06:32 Intake & Output 11/13/17 11/14/17 11/14/17 18:59 06:59 18:59 Intake Total 0 1110 Output Total 600 1100 600 Balance -600 10 -600 Weight 109 kg 107.5 kg 107.5 kg Intake: Oral 800 Blood Product 0 310 Rc As-1 Unit 0 310 [id number] Output: Urine 600 1100 600 Other: Voiding Method Toilet Urinal Toilet Urinal Urinal # Voids 1 2 - Exam GENERAL: This is a 82-year-old male in no apparent distress at the time of examination. Pleasant and cooperative. HEENT: Head is atraumatic, normocephalic. Pupils are equal, round, and reactive to light. Sclerae anicteric. Conjunctivae are clear. Mucus membranes of the mouth are moist. Neck is supple. RESPIRATORY: Diminished throughout. No wheezing noted. No use of accessory muscles. Patient maintaining oxygen saturation greater than 92%. No chest wall tenderness is noted on palpation or with deep breathing. CARDIOVASCULAR: Irregular rate and rhythm. S1 and S2 noted. Systolic murmur auscultated. No JVD noted. No S3 or S4 noted. GASTROINTESTINAL: No distention noted. Abdomen soft and round. Normal active bowel sounds auscultated x 4 quadrants. No pain or tenderness noted upon palpation. INTEGUMENTARY: Wound noted to great right toe with dressing noted. No drainage noted. No cyanosis. No jaundice. No rashes noted. No cellulitis noted. EXTREMITIES: 1+ peripheral pulses. trace bilateral lower extremity edema. No calf tenderness noted. NEUROLOGIC: Cranial nerves II-XII intact. PSYCHIATRIC: Awake, alert, and oriented X 3. Appropriate affect. Intact judgement and insight. - Labs CBC & Chem 7: 11/14/17 08:19 11/14/17 08:19 Labs: Abnormal Lab Results - Last 24 Hours (Table) 11/13/17 11/13/17 11/13/17 Range/Units 14:14 16:59 21:33 WBC (3.8-10.6) k/uL RBC (4.30-5.90) m/uL Hgb (13.0-17.5) gm/dL Hct (39.0-53.0) % MCV (80.0-100.0) fL MCH (25.0-35.0) pg MCHC (31.0-37.0) g/dL RDW (11.5-15.5) % Plt Count (150-450) k/uL Neutrophils # (Manual) (1.3-7.7) k/uL Nucleated RBCs (0-0) /100 WBC Chloride (98-107) mmol/L Carbon Dioxide (22-30) mmol/L BUN (9-20) mg/dL POC Glucose (mg/dL) 304 H 224 H (75-99) mg/dL AST (17-59) U/L Crossmatch See Detail 11/14/17 11/14/17 11/14/17 Range/Units 07:11 08:19 08:19 WBC 14.4 H (3.8-10.6) k/uL RBC 4.11 L (4.30-5.90) m/uL Hgb 8.3 L (13.0-17.5) gm/dL Hct 28.8 L (39.0-53.0) % MCV 70.1 L (80.0-100.0) fL MCH 20.3 L (25.0-35.0) pg MCHC 28.9 L (31.0-37.0) g/dL RDW 18.9 H (11.5-15.5) % Plt Count 628 H (150-450) k/uL Neutrophils # (Manual) 11.90 H (1.3-7.7) k/uL Nucleated RBCs 36 H (0-0) /100 WBC Chloride 95 L (98-107) mmol/L Carbon Dioxide 33 H (22-30) mmol/L BUN 33 H (9-20) mg/dL POC Glucose (mg/dL) 58 L (75-99) mg/dL AST 60 H (17-59) U/L Crossmatch 11/14/17 Range/Units 12:16 WBC (3.8-10.6) k/uL RBC (4.30-5.90) m/uL Hgb (13.0-17.5) gm/dL Hct (39.0-53.0) % MCV (80.0-100.0) fL MCH (25.0-35.0) pg MCHC (31.0-37.0) g/dL RDW (11.5-15.5) % Plt Count (150-450) k/uL Neutrophils # (Manual) (1.3-7.7) k/uL Nucleated RBCs (0-0) /100 WBC Chloride (98-107) mmol/L Carbon Dioxide (22-30) mmol/L BUN (9-20) mg/dL POC Glucose (mg/dL) 169 H (75-99) mg/dL AST (17-59) U/L Crossmatch Microbiology - Last 24 Hours (Table) 11/12/17 15:20 Blood Culture - Preliminary Blood No Growth after 24 hours Assessment and Plan Plan: ASSESSMENT: Symptomatic anemia, hgb 7.3 on admission, stool for occult blood positive, suspect secondary to acute blood loss from GI source, s/p transfusion of 1 unit RBCs Non-ST elevated myocardial infarction Atrial fibrillation with controlled ventricular rate, not on long-term anticoagulation, questionable whether new onset or not Acute exacerbation of systolic congestive heart failure, EF 45% 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 Appreciate recommendations and input Lasix increased to Q8 hours from daily yesterday per cardiology. Dose management per cardiology. YUNIEL inhibitor and amlodipine added per cardiology. Infectious disease on consult-no antibiotics recommended at this time Patient to follow up in the wound care center after discharge Wound care to great right toe per Dr. Loza recommendations GI on consult. Await further recommendations and input Home meds as appropriate Monitor labs GI prophylaxis: Protonix 40 mg IV Daily DVT prophylaxis: SCDs to bilateral lower extremities Monitor vital signs and address as appropriate Discharge planning: Patient to return home when stable Further recommendations pending patient's course Nurse practitioner note has been reviewed by physician. Signing provider agrees with the documented findings, assessment, and plan of care.
--- NOTE | 2017-11-14 13:31 | P.PN ---
Subjective Mr. Carson is seen and examined sitting up in the chair. He continues to remain in atrial fibrillation with controlled ventricular response. He states he had been in a-fib in the past many years ago but doesn't recall ever being put on anti-coagulants. There is no record of a-fib documented looking back as far as 2011. Past medical history is significant for coronary artery disease status post three-vessel bypass grafting in 2001 with a LARSEN to LAD, radial to RCA and SVG to OM1, hypertension and dyslipidemia. He follows in the office with Dr. Lr. He was seen yesterday and selective care with Dr. Anaya diagnosed with an acute non-ST elevated [place], new onset atrial fibrillation and acute exacerbation of chronic systolic heart failure. Lisinopril 5 mg and amlodipine 10 mg daily were added to his regimen for better blood pressure control. Blood pressure 130/46 heart rate 72 afebrile maintaining oxygen saturation on room air. Sodium 140, potassium 3.8, creatinine 1.21. Objective - Vital Signs Vital signs: Vital Signs Temp 97.7 F 11/14/17 06:32 Pulse 69 11/14/17 08:00 Resp 13 11/14/17 11:56 BP 130/46 11/14/17 06:32 Pulse Ox 95 11/14/17 06:32 Intake & Output 11/13/17 11/14/17 11/14/17 18:59 06:59 18:59 Intake Total 0 1110 Output Total 600 1100 600 Balance -600 10 -600 Weight 109 kg 107.5 kg 107.5 kg Intake: Oral 800 Blood Product 0 310 Rc As-1 Unit 0 310 [id number] Output: Urine 600 1100 600 Other: Voiding Method Toilet Urinal Toilet Urinal Urinal # Voids 1 2 - Exam GENERAL: Well-appearing, well-nourished and in no acute distress. NECK: Supple without JVD or thyromegaly. LUNGS: Breath sounds clear to auscultation bilaterally. Respiration equal and unlabored. No wheezes, rales or rhonchi. HEART: Irregular rate and rhythm with systolic murmur, no rubs or gallops. S1 and S2 heard. EXTREMITIES: Normal range of motion, no edema. No clubbing or cyanosis. Peripheral pulses intact and strong. - Labs CBC & Chem 7: 11/14/17 08:19 11/14/17 08:19 Labs: Abnormal Lab Results - Last 24 Hours (Table) 11/13/17 11/13/17 11/13/17 Range/Units 14:14 16:59 21:33 WBC (3.8-10.6) k/uL RBC (4.30-5.90) m/uL Hgb (13.0-17.5) gm/dL Hct (39.0-53.0) % MCV (80.0-100.0) fL MCH (25.0-35.0) pg MCHC (31.0-37.0) g/dL RDW (11.5-15.5) % Plt Count (150-450) k/uL Neutrophils # (Manual) (1.3-7.7) k/uL Nucleated RBCs (0-0) /100 WBC Chloride (98-107) mmol/L Carbon Dioxide (22-30) mmol/L BUN (9-20) mg/dL POC Glucose (mg/dL) 304 H 224 H (75-99) mg/dL AST (17-59) U/L Crossmatch See Detail 11/14/17 11/14/17 11/14/17 Range/Units 07:11 08:19 08:19 WBC 14.4 H (3.8-10.6) k/uL RBC 4.11 L (4.30-5.90) m/uL Hgb 8.3 L (13.0-17.5) gm/dL Hct 28.8 L (39.0-53.0) % MCV 70.1 L (80.0-100.0) fL MCH 20.3 L (25.0-35.0) pg MCHC 28.9 L (31.0-37.0) g/dL RDW 18.9 H (11.5-15.5) % Plt Count 628 H (150-450) k/uL Neutrophils # (Manual) 11.90 H (1.3-7.7) k/uL Nucleated RBCs 36 H (0-0) /100 WBC Chloride 95 L (98-107) mmol/L Carbon Dioxide 33 H (22-30) mmol/L BUN 33 H (9-20) mg/dL POC Glucose (mg/dL) 58 L (75-99) mg/dL AST 60 H (17-59) U/L Crossmatch 11/14/17 Range/Units 12:16 WBC (3.8-10.6) k/uL RBC (4.30-5.90) m/uL Hgb (13.0-17.5) gm/dL Hct (39.0-53.0) % MCV (80.0-100.0) fL MCH (25.0-35.0) pg MCHC (31.0-37.0) g/dL RDW (11.5-15.5) % Plt Count (150-450) k/uL Neutrophils # (Manual) (1.3-7.7) k/uL Nucleated RBCs (0-0) /100 WBC Chloride (98-107) mmol/L Carbon Dioxide (22-30) mmol/L BUN (9-20) mg/dL POC Glucose (mg/dL) 169 H (75-99) mg/dL AST (17-59) U/L Crossmatch Microbiology - Last 24 Hours (Table) 11/12/17 15:20 Blood Culture - Preliminary Blood No Growth after 24 hours Assessment and Plan Assessment: ASSESSMENT 1. Acute non-ST segment elevation myocardial infarction 2. New onset atrial fibrillation with controlled ventricular response 3. Acute on chronic systolic heart failure 4. Nonhealing ulcer of the foot 5. Hypertension 6. Diabetes mellitus 7. Dyslipidemia 8. Hypochromic microcytic anemia 9. Leukocytosis 10. Thrombocythemia, unknown etiology. Platelets 628. PLAN Decrease Lasix to 40 mg twice a day. Continue with Imdur, pravastatin, lisinopril and amlodipine as were previously ordered. Follow-up with Dr. Lr in 2 weeks post discharge. Anticoagulation can be addressed as an outpatient once the cause of anemia has been determined. We will continue to follow as needed, please feel free to call with questions or concerns. Nurse Practitioner note has been reviewed, I agree with a documented findings and plan of care. Patient was seen and examined.
[2017-11-14 17:13] LABS: Glucose,Whole Blood 249 mg/dL (75-99)
--- NOTE | 2017-11-14 17:23 | P.CONS ---
History of Present Illness - Reason for Consult Consult date: 11/14/17 Rectal bleeding Requesting physician: Luis Quesada Jr - History of Present Illness 82-year-old gentleman with a history of COPD, CAD/CABG, sleep apnea, possible A. fib, renal cancer, partial splenectomy/pancreatectomy, admitted with non-ST elevated [place] acute exacerbation of chronic systolic heart failure, weakness shortness of breath atrial fibrillation and right great toe wound. Consult requested for rectal bleeding. Patient denies rectal bleeding. "I don't know why everyone says I have rectal bleeding I am not bleeding". Denies hematemesis hematochezia melena. EGD February 2017 for evaluation of symptomatic anemia and Hemoccult-positive stools reported small sliding hiatal hernia with no obvious reflux disease. According to medical records last colonoscopy was performed in [address] [place] results are not available at time of dictation. Admission hemoglobin 7.3. MCV 67. Platelets 664. Received 1 unit of blood present hemoglobin is 8.3. Denies abdominal pain. Iron indices last February ferritin 24. Iron 14. Iron saturation 8.4%. Troponin 0.05. Patient is not a candidate for anticoagulation for his atrial fibrillation at this time secondary to his history of bleeding. Average hemoglobin over the last few years ranging between 8-12. Review of Systems Constitutional: Denies fever, chills, sweats, weight gain, or loss. Weakness fatigue. HEENT: Negative for migraines, blurred vision or loss, earaches, drainage, tinnitus, oral mucosal lesions, dysphagia, or odynophagia. Cardiac: Negative for chest pain, arrhythmias, or palpitation. Respiratory: Positive for shortness of breath, denies hemoptysis, cough, or sputum production. Gastrointestinal: See HPI for pertinent findings. Genitourinary: Negative for hematuria, urgency, frequency, polyuria, dysuria, or penile discharge. Musculoskeletal: Negative for muscle aches, swelling, arthritis, and arthralgias. Neurologic: Negative for stroke or TIA. Endocrine: History of diabetes. Negative for thyroid problems. Skin: Right toe 1. Negative for rash or itching. Psychiatric: Negative history for depression and anxiety Past Medical History Past Medical History: Coronary Artery Disease (CAD), Cancer, Heart Failure, COPD , CVA/TIA, Diabetes Mellitus, Eye Disorder, Hyperlipidemia, Hypertension, Myocardial Infarction ([place]), Osteoarthritis (OA), Prostate Disorder, Sleep Apnea/ CPAP/BIPAP Additional Past Medical History / Comment(s): 2013 L renal cancer with surgery- partial nephrectomy/spleenectomy/distal portion of pancreas removed at [facility], IDDM type II, TIA, [place] unknown date, BPH, gastritis, small hiatal hernia, past discitis T9-T10, arthritis bilateral hands/back, TARIQ-does not tolerate his CPAP, past R great toe ulcer/infection, bilateral laser eye surgery for "alittle leakage". Last Myocardial Infarction Date:: UNKNOWN History of Any Multi-Drug Resistant Organisms: MRSA Year Discovered:: 2013 MDRO Source:: left leg Past Surgical History: Coronary Bypass/CABG, Heart Catheterization Additional Past Surgical History / Comment(s): partial L nephrectomy, distal pancreatectomy, splenectomy-at [place], 2000 CABG-3 vessel, EGD, colonoscopy, deviated septum surgery, skin/oral lesion removals, R carpal tunnel release, bilateral cataract removal, bilateral laser eye surgery for "leakage" Past Anesthesia/Blood Transfusion Reactions: Previous Problems w/ Anesthesia Additional Past Anesthesia/Blood Transfusion Reaction / Comm: 'TROUBLE COMING OUT OF ANESTESIA' - DELUSIONAL. Pt has received blood in past without reaction. Smoking Status: Never smoker - Past Family History Father Family Medical History: Myocardial Infarction ([place]) Mother Family Medical History: COPD Medications and Allergies Home Medications Medication Instructions Recorded Confirmed Type Insulin Detemir [Levemir Flextouch] 60 units SQ HS 12/21/14 11/13/17 History Montelukast [Singulair] 10 mg PO HS 12/21/14 11/13/17 History Aspirin EC [Ecotrin Low Dose] 81 mg PO HS 02/07/16 11/13/17 History Insulin Aspart [NovoLOG Flexpen] 17 units SQ AC-TID 02/07/16 11/13/17 History Isosorbide Mononitrate ER [Imdur] 30 mg PO DAILY 02/07/16 11/13/17 History Magnesium Oxide [Mag-Ox] 250 mg PO DAILY 02/07/16 11/13/17 History Pravastatin Sodium 40 mg PO HS 02/07/16 11/13/17 History Zinc 50 mg PO DAILY 02/07/16 11/13/17 History Albuterol Nebulized [Ventolin 2.5 mg INHALATION RT-TID PRN 04/02/16 11/13/17 History Nebulized] Furosemide [Lasix] 40 mg PO DAILY 04/02/16 11/13/17 History Potassium Chloride ER [K-Dur 20] 40 meq PO DAILY 04/02/16 11/13/17 History [place]-3 Fatty Acids/Fish Oil [Fish 1 cap PO DAILY 08/13/16 11/13/17 History Oil 1,000 mg Softgel] Acetaminophen Tab [Tylenol] 500 - 1,000 mg PO Q6HR PRN 03/17/17 11/13/17 History Escitalopram [Lexapro] 20 mg PO DAILY 03/17/17 11/13/17 History Pantoprazole [Protonix] 40 mg PO DAILY #30 tab 03/21/17 11/13/17 Rx Cyanocobalamin [Vitamin B-12] 500 mcg PO MOWEFR 11/12/17 11/13/17 History Insulin Aspart [Novolog Flexpen] See Protocol SQ AC-TID PRN 11/12/17 11/13/17 History Polyethylene Glycol 3350 [Miralax] 17 gm PO DAILY 11/12/17 11/13/17 History predniSONE 10 mg PO DAILY 11/12/17 11/13/17 History Budesonide-Formot 160-4.5 Mcg 2 puff INHALATION BID 11/13/17 11/13/17 History [Symbicort 160-4.5 Mcg Inhaler] Allergies Allergy/AdvReac Type Severity Reaction Status Date / Time Penicillins Allergy Unknown Rash/Hives Verified 11/12/17 17:58 atorvastatin calcium Allergy Unknown Verified 11/12/17 17:58 [From Lipitor] clonazepam [From Klonopin] Allergy Hallucinati Verified 11/12/17 17:58 ons codeine Allergy Hallucinati Verified 11/12/17 17:58 ons haloperidol [From Haldol] Allergy Hallucinati Verified 11/12/17 17:58 ons haloperidol lactate Allergy Hallucinati Verified 11/12/17 17:58 [From Haldol] ons hydromorphone HCl Allergy Hallucinati Verified 11/12/17 17:58 [From Dilaudid] ons methylphenidate HCl Allergy Hallucinati Verified 11/12/17 17:58 [From Ritalin] ons morphine Allergy Hallucinati Verified 11/12/17 17:58 ons propofol Allergy Hallucinati Verified 11/12/17 17:58 ons quetiapine fumarate Allergy Hallucinati Verified 11/12/17 17:58 [From Seroquel] ons Sulfa (Sulfonamide Allergy Unknown Verified 11/12/17 17:58 Antibiotics) vancomycin Allergy Unknown Verified 11/12/17 17:58 ativan AdvReac Unknown Uncoded 11/12/17 14:18 Physical Exam Vitals: Vital Signs Temp Pulse Pulse Resp BP BP Pulse Ox 11/14/17 08:00 69 11/14/17 07:51 62 16 11/14/17 07:40 60 14 11/14/17 06:32 97.7 F 72 18 130/46 95 11/13/17 23:00 96.9 F L 63 18 152/69 96 11/13/17 19:02 98.2 F 86 16 136/63 11/13/17 17:20 78 156/69 11/13/17 16:50 78 148/71 11/13/17 16:40 96.2 F L 71 16 103/57 11/13/17 16:00 96.2 F L 89 20 129/75 95 Intake and Output 11/13/17 11/14/17 11/14/17 22:59 06:59 14:59 Intake Total 310 800 Output Total 1100 600 Balance 310 -300 -600 Intake: Oral 800 Blood Product 310 Rc As-1 Unit 310 [id number] Output: Urine 1100 600 Other: Voiding Method Urinal Urinal # Voids 2 Weight 109 kg 107.5 kg 107.5 kg General appearance: The patient is alert, oriented, in no acute distress. HET: Head is normocephalic and atraumatic. Pupils are equal and reactive. Oropharynx is clear without lesions. Neck: Supple without lymphadenopathy. Trachea midline. Heart: S1 S2. Lungs: No crackles or wheezes are heard. Abdomen: Soft, nontender, nondistended with bowel sounds. No peritoneal signs. No palpable organomegaly or masses. Results CBC & Chem 7: 11/14/17 08:19 11/14/17 08:19 Labs: Abnormal Lab Results - Last 24 Hours (Table) 11/13/17 11/13/17 11/13/17 Range/Units 11:55 14:14 16:59 WBC (3.8-10.6) k/uL RBC (4.30-5.90) m/uL Hgb (13.0-17.5) gm/dL Hct (39.0-53.0) % MCV (80.0-100.0) fL MCH (25.0-35.0) pg MCHC (31.0-37.0) g/dL RDW (11.5-15.5) % Plt Count (150-450) k/uL Neutrophils # (Manual) (1.3-7.7) k/uL Nucleated RBCs (0-0) /100 WBC Chloride (98-107) mmol/L Carbon Dioxide (22-30) mmol/L BUN (9-20) mg/dL POC Glucose (mg/dL) 182 H 304 H (75-99) mg/dL AST (17-59) U/L Crossmatch See Detail 11/13/17 11/14/17 11/14/17 Range/Units 21:33 07:11 08:19 WBC 14.4 H (3.8-10.6) k/uL RBC 4.11 L (4.30-5.90) m/uL Hgb 8.3 L (13.0-17.5) gm/dL Hct 28.8 L (39.0-53.0) % MCV 70.1 L (80.0-100.0) fL MCH 20.3 L (25.0-35.0) pg MCHC 28.9 L (31.0-37.0) g/dL RDW 18.9 H (11.5-15.5) % Plt Count 628 H (150-450) k/uL Neutrophils # (Manual) 11.90 H (1.3-7.7) k/uL Nucleated RBCs 36 H (0-0) /100 WBC Chloride (98-107) mmol/L Carbon Dioxide (22-30) mmol/L BUN (9-20) mg/dL POC Glucose (mg/dL) 224 H 58 L (75-99) mg/dL AST (17-59) U/L Crossmatch 11/14/17 Range/Units 08:19 WBC (3.8-10.6) k/uL RBC (4.30-5.90) m/uL Hgb (13.0-17.5) gm/dL Hct (39.0-53.0) % MCV (80.0-100.0) fL MCH (25.0-35.0) pg MCHC (31.0-37.0) g/dL RDW (11.5-15.5) % Plt Count (150-450) k/uL Neutrophils # (Manual) (1.3-7.7) k/uL Nucleated RBCs (0-0) /100 WBC Chloride 95 L (98-107) mmol/L Carbon Dioxide 33 H (22-30) mmol/L BUN 33 H (9-20) mg/dL POC Glucose (mg/dL) (75-99) mg/dL AST 60 H (17-59) U/L Crossmatch Microbiology - Last 24 Hours (Table) 11/12/17 15:20 Blood Culture - Preliminary Blood No Growth after 24 hours Assessment and Plan Assessment: Impression: 1. Symptomatic microcytic iron deficiency anemia without overt GI bleeding but positive Hemoccult stool. History of iron deficiency anemia EGD February 2017 no evidence of peptic ulcer disease colonoscopy 2012. 2. Atrial fibrillation rate controlled. 3. Right great toe wound. Recommendations: 1. Dr. Anaya recommends outpatient colonoscopy possible small bowel capsule endoscopy for further evaluation of anemia; GI office will schedule in 3-4 weeks. 2. Continue GI prophylaxis. CBC monitoring. Thank you for this kind referral and the opportunity to participate in the care of your patient. This consultation was discussed with Dr. Anaya. The impression and plan of care have been directed as dictated.
[2017-11-14 18:59] LABS: Hemoglobin A1C 9.9 % (4.0-6.0)
[2017-11-14 20:29] LABS: Glucose,Whole Blood 253 mg/dL (75-99)
[2017-11-14] MEDS: MONTELUKAST 10 MG TAB PO SCH (22:01)
[2017-11-14] MEDS: PRAVASTATIN SODIUM 40 MG TAB PO SCH (22:01)
[2017-11-14] MEDS: INSULIN DETEMIR 100 UNIT/ML 10 ML VIAL SQ SCH (22:03)
[2017-11-14 22:52] VITALS: BP 121/58; RESP 18; TEMP 98
--- NOTE | 2017-11-15 | P.PN ---
Subjective Progress Note Date: 11/14/17 82-year-old male who has multiple medical problems that includes a known history of underlying coronary artery disease, status post CABG and several cardiac catheterizations. 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 He is known to the wound healing Center because of nonhealing ulcerations to his feet partially due to difficulty with compliance to offloading and shoes. The patient now presents to hospital with his family with apparently many weeks of increasing symptoms. He's been having increasing weakness and some increasing amount of his baseline confusion. He was having greater difficulty ambulating and there was concern as to chronic ulceration to his foot. There is having difficulties having the foot evaluated and consequently came to the emergency center. There with his weakness evaluation occurred was found evidence of a non -ST elevated myocardial infarction as well as profound anemia likely with gastrointestinal loss. He has been admitted. He is receiving packed red cell transfusion. He is been seen by cardiology. But because of his many difficulties, including GI bleed was not thought to be a candidate for any specific intervention at this time. He does have atrial fibrillation with controlled rate and with his bleeding was not thought to be a candidate for any further anticoagulation or antiplatelet therapies. Infectious diseases consultation request regarding the chronic calloused area to the right foot. At the great toe. Patient feeling better today. Cardiology is following with no acute complaints. No evidence of any new gastrointestinal bleeding. Hemoglobin is increased to 8.3 after his packed red cell transfusion. He feels slightly stronger today. Objective - Vital Signs Vital signs: Vital Signs Temp 98.0 F 11/14/17 22:51 Pulse 74 11/14/17 22:51 Resp 18 11/14/17 22:51 BP 121/58 11/14/17 22:51 Pulse Ox 94 L 11/14/17 22:51 Intake & Output 11/14/17 11/14/17 11/15/17 06:59 18:59 06:59 Intake Total 1110 Output Total 1100 600 Balance 10 -600 Weight 107.5 kg 107.5 kg Intake: Oral 800 Blood Product 310 Rc As-1 Unit 310 [id number] Output: Urine 1100 600 Other: Voiding Method Urinal Toilet Urinal # Voids 2 1 # Bowel Movements 1 - Exam Pleasant elderly male, supine in bed, seems comfortable, family is present and voice complaints for him the patient himself again relates he feels relatively well HEENT: Anicteric conjunctiva are pink and moist nasal mucosa grossly intact without significant lesions, there is no thrush. Neck: The neck is supple without significant lymphadenopathy or thyromegaly. Lungs: There are symmetrical air entry, few crackles at the bases no bronchial sounds Heart: Irregularly irregular with an audible S1 and S2 soft S4 no murmur click or rub Abdomen: Obese, Positive bowel sounds soft and nontender without palpable masses or organomegaly. There was no guarding or rebound. Extremities: The upper extremities have excellent pulses they are symmetric, no significant petechiae or telangiectasia. No splinter hemorrhages were noted. Lower extremities have evidence of minimal edema. The right great toe plantar surface has area of a chronic callus with some ulceration that has been intimately present over quite some time. There is no expressible purulence. There is no evidence of any ascending erythema. 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 The family is concerned about a foreign body however review of x-ray shows some present since 2017. Neuro: Awake alert oriented to person place and time. 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 - Labs CBC & Chem 7: 11/14/17 08:19 11/14/17 08:19 Labs: Abnormal Lab Results - Last 24 Hours (Table) 11/14/17 11/14/17 11/14/17 Range/Units 07:11 08:19 08:19 WBC 14.4 H (3.8-10.6) k/uL RBC 4.11 L (4.30-5.90) m/uL Hgb 8.3 L (13.0-17.5) gm/dL Hct 28.8 L (39.0-53.0) % MCV 70.1 L (80.0-100.0) fL MCH 20.3 L (25.0-35.0) pg MCHC 28.9 L (31.0-37.0) g/dL RDW 18.9 H (11.5-15.5) % Plt Count 628 H (150-450) k/uL Neutrophils # (Manual) 11.90 H (1.3-7.7) k/uL Nucleated RBCs 36 H (0-0) /100 WBC Chloride 95 L (98-107) mmol/L Carbon Dioxide 33 H (22-30) mmol/L BUN 33 H (9-20) mg/dL POC Glucose (mg/dL) 58 L (75-99) mg/dL AST 60 H (17-59) U/L 11/14/17 11/14/17 11/14/17 Range/Units 12:16 17:11 20:28 WBC (3.8-10.6) k/uL RBC (4.30-5.90) m/uL Hgb (13.0-17.5) gm/dL Hct (39.0-53.0) % MCV (80.0-100.0) fL MCH (25.0-35.0) pg MCHC (31.0-37.0) g/dL RDW (11.5-15.5) % Plt Count (150-450) k/uL Neutrophils # (Manual) (1.3-7.7) k/uL Nucleated RBCs (0-0) /100 WBC Chloride (98-107) mmol/L Carbon Dioxide (22-30) mmol/L BUN (9-20) mg/dL POC Glucose (mg/dL) 169 H 249 H 253 H (75-99) mg/dL AST (17-59) U/L Microbiology - Last 24 Hours (Table) 11/12/17 15:20 Blood Culture - Preliminary Blood No Growth after 48 hours Laboratory Results WBC 14.4 k/uL (3.8-10.6) H 11/14/17 08:19 RBC 4.11 m/uL (4.30-5.90) L 11/14/17 08:19 Hgb 8.3 gm/dL (13.0-17.5) L 11/14/17 08:19 Hct 28.8 % (39.0-53.0) L 11/14/17 08:19 MCV 70.1 fL (80.0-100.0) L 11/14/17 08:19 MCH 20.3 pg (25.0-35.0) L 11/14/17 08:19 MCHC 28.9 g/dL (31.0-37.0) L 11/14/17 08:19 RDW 18.9 % (11.5-15.5) H 11/14/17 08:19 Plt Count 628 k/uL (150-450) H 11/14/17 08:19 Neutrophils % (Manual) 82 % 11/14/17 08:19 Band Neutrophils % 1 % 11/14/17 08:19 Lymphocytes % (Manual) 9 % 11/14/17 08:19 Monocytes % (Manual) 6 % 11/14/17 08:19 Eosinophils % (Manual) 1 % 11/14/17 08:19 Basophils % (Manual) 1 % 11/14/17 08:19 Neutrophils # (Manual) 11.90 k/uL (1.3-7.7) H 11/14/17 08:19 Lymphocytes # (Manual) 1.30 k/uL (1.0-4.8) 11/14/17 08:19 Monocytes # (Manual) 0.86 k/uL (0-1.0) 11/14/17 08:19 Eosinophils # (Manual) 0.14 k/uL (0-0.7) 11/14/17 08:19 Basophils # (Manual) 0.14 k/uL (0-0.2) 11/14/17 08:19 Nucleated RBCs 36 /100 WBC (0-0) H 11/14/17 08:19 Differential Comment 11/13/17 08:46 Manual Slide Review Performed 11/13/17 08:46 Large Platelets Present 11/13/17 08:46 Dimorphic RBCs Present 11/14/17 08:19 Polychromasia Present 11/14/17 08:19 Hypochromasia Marked 11/14/17 08:19 Hypochromasia (manual) Present 11/12/17 15:20 Poikilocytosis Marked 11/14/17 08:19 Poikilocytosis (manual Present 11/12/17 15:20 Anisocytosis Slight 11/14/17 08:19 Anisocytosis (manual) Present 11/12/17 15:20 Microcytosis Marked 11/14/17 08:19 Spherocytes Present 11/14/17 08:19 Target Cells Present 11/14/17 08:19 Tear Drop Cells Present 11/12/17 15:20 Ovalocytes Present 11/12/17 15:20 Henriquez-Free[place] Bodies Present 11/14/17 08:19 Crenated Cell Present 06/24/18 15:20 Fragmented RBCs Present 11/14/17 08:19 PT 13.2 sec (9.0-12.0) H 11/12/17 15:20 INR 1.4 (<1.2) H 11/12/17 15:20 APTT 25.9 sec (22.0-30.0) 11/12/17 15:20 Sodium 140 mmol/L (137-145) 11/14/17 08:19 Potassium 3.8 mmol/L (3.5-5.1) 11/14/17 08:19 Chloride 95 mmol/L (98-107) L 11/14/17 08:19 Carbon Dioxide 33 mmol/L (22-30) H 11/14/17 08:19 Anion Gap 12 mmol/L 11/14/17 08:19 BUN 33 mg/dL (9-20) H 11/14/17 08:19 Creatinine 1.21 mg/dL (0.66-1.25) 11/14/17 08:19 Est GFR (CKD-EPI)AfAm 65 (>60 ml/min/1.73 sqM) 11/14/17 08:19 Est GFR (CKD-EPI)NonAf 56 (>60 ml/min/1.73 sqM) 11/14/17 08:19 Glucose 79 mg/dL (74-99) 11/14/17 08:19 POC Glucose (mg/dL) 253 mg/dL (75-99) H 11/14/17 20:28 POC Glu Semi [employer] Kena Cespedes 11/14/17 20:28 Calcium 8.8 mg/dL (8.4-10.2) 11/14/17 08:19 Magnesium 2.0 mg/dL (1.6-2.3) 11/12/17 15:20 Total Bilirubin 1.1 mg/dL (0.2-1.3) 11/14/17 08:19 AST 60 U/L (17-59) H 11/14/17 08:19 ALT 71 U/L (21-72) 11/14/17 08:19 Alkaline Phosphatase 75 U/L (38-126) 11/14/17 08:19 Total Creatine Kinase 550 U/L (55-170) H 11/13/17 00:33 CK-MB (CK-2) 18.0 ng/mL (0.0-2.4) H* 11/13/17 00:33 CK-MB (CK-2) Rel Index 3.3 11/13/17 00:33 Troponin I 0.060 ng/mL (0.000-0.034) H* 11/13/17 00:33 NT-Pro-B Natriuret Pep 3070 pg/mL 11/12/17 15:20 Total Protein 6.3 g/dL (6.3-8.2) 11/14/17 08:19 Albumin 3.9 g/dL (3.5-5.0) 11/14/17 08:19 Amylase 50 U/L (30-110) 11/12/17 15:20 Lipase 118 U/L (23-300) 11/12/17 15:20 Urine Color Colorless 11/12/17 15:20 Urine Appearance Clear (Clear) 11/12/17 15:20 Urine pH 6.5 (5.0-8.0) 11/12/17 15:20 Ur Specific [place] 1.007 (1.001-1.035) 11/12/17 15:20 Urine Protein Negative (Negative) 11/12/17 15:20 Urine Glucose (UA) Trace (Negative) H 11/12/17 15:20 Urine Ketones Negative (Negative) 11/12/17 15:20 Urine Blood Negative (Negative) 11/12/17 15:20 Urine Nitrite Negative (Negative) 11/12/17 15:20 Urine Bilirubin Negative (Negative) 11/12/17 15:20 Urine Urobilinogen <2.0 mg/dL (<2.0) 11/12/17 15:20 Ur Leukocyte Esterase Negative (Negative) 11/12/17 15:20 Stool Occult Blood Positive (Negative) 11/12/17 17:05 Blood Type A Negative 11/13/17 14:14 Blood Type Recheck No 11/13/17 14:14 Antibody Screen NEGATIVE 11/13/17 14:14 Crossmatch See Detail 11/13/17 14:14 Spec Expiration Date 11/16/2017 - 1873 11/13/17 14:14 Microbiology 11/12/17 15:20 Blood Blood Culture - Preliminary No Growth after 48 hours Assessment and Plan (1) Elevated troponin Current Visit: Yes Status: Acute Code(s): R74.8 - ABNORMAL LEVELS OF OTHER SERUM ENZYMES SNOMED Code(s): 655043051 (2) GI bleed Current Visit: Yes Status: Acute Code(s): K92.2 - GASTROINTESTINAL HEMORRHAGE, UNSPECIFIED SNOMED Code(s): 18100792 (3) Atrial fibrillation Current Visit: No Status: Acute Code(s): I48.91 - UNSPECIFIED ATRIAL FIBRILLATION SNOMED Code(s): 11437458 (4) Diabetic foot ulcer associated with type 2 diabetes mellitus, with fat layer exposed Narrative/Plan: 82-year-old male presents to Hospital feeling poorly for quite some time having a chronic ulceration to the plantar surface of his right great toe. He's had many ulcerations over time and is missing the wound center in the past. He now presents with this many week history of progressive fatigue and malaise. At admission there is evidence of a non-ST elevated myocardial infarction and has been evaluated by cardiology. He currently has multiple comorbidities which include gastrointestinal bleed and atrial fibrillation. Due to his current level of illness he was not thought to be a candidate for intervention or for anticoagulation therapy. He will monitored closely over time. For the gastrointestinal bleeding he is being evaluated and is receiving packed red blood cells in hopes that replenishment of his significant anemia will make him feel better and improve his cardiac status. As far as the toe is a chronic ulceration. X-ray failed without evidence of any bony infection. Ulcer present since 2017 and at that site does not appear to have any open ulceration or acute bony changes. Local wound care with medical clinic will be applied in offloading is going to be needed. It is unclear what the plan will be with him at discharge. Suggest follow-up in the wound healing Center for ongoing post-evaluation and follow-up of that toe ulceration over time. Once he is more stable we can consider further debridement to that site. The site does not appear infected and would not initiate antibiotics at this point in time Current Visit: Yes Status: Acute Code(s): E11.621 - TYPE 2 DIABETES MELLITUS WITH FOOT ULCER; L97.502 - NON-PRS CHRONIC ULCER OTH PRT UNSP FOOT W FAT LAYER EXPOSED SNOMED Code(s): 4741422774878
[2017-11-15 05:58] LABS: Glucose,Whole Blood 55 mg/dL (75-99)
[2017-11-15 05:58] LABS: Glucose,Whole Blood 123 mg/dL (75-99)
[2017-11-15 05:58] LABS: Glucose,Whole Blood 76 mg/dL (75-99)
[2017-11-15 07:22] LABS: Glucose,Whole Blood 188 mg/dL (75-99)
[2017-11-15] MEDS: ALBUTEROL NEBULIZED 2.5 MG/3 ML INHALATION PRN ×2 (07:26→13:52)
[2017-11-15] MEDS ORDERED: CYANOCOBALAMIN 500 MCG TAB PO ONE (09:00)
[2017-11-15] MEDS ORDERED: MAGNESIUM OXIDE 400 MG TAB ONE (09:00)
[2017-11-15] MEDS ORDERED: POLYETHYLENE GLYCOL 3350 17 GM POWD.PACK PO ONE (09:00)
[2017-11-15] MEDS ORDERED: ESCITALOPRAM 20 MG TAB ONE (09:00)
[2017-11-15] MEDS ORDERED: PANTOPRAZOLE 40 MG/10 ML VIAL ONE (09:00)
[2017-11-15] MEDS ORDERED: ISOSORBIDE MONONITRATE ER 30 MG TAB.ER.24H PO ONE (09:00)
[2017-11-15] MEDS ORDERED: POTASSIUM CHLORIDE ER 20 MEQ TAB.ER PO ONE (09:00)
[2017-11-15] MEDS ORDERED: MONTELUKAST 10 MG TAB ONE (09:00)
[2017-11-15 09:49] LABS: Albumin 3.7 g/dL (3.5-5.0); Calcium 8.7 mg/dL (8.4-10.2); Potassium 4.5 mmol/L (3.5-5.1); Total Bilirubin 0.8 mg/dL (0.2-1.3); Total Protein 6.2 g/dL (6.3-8.2)
[2017-11-15] MEDS: INSULIN ASPART 100 UNIT/ML 1 ML 10 ML VIAL SQ SCH ×4 (10:56→12:26)
[2017-11-15] MEDS: ISOSORBIDE MONONITRATE ER 30 MG TAB.ER.24H PO SCH (10:56)
[2017-11-15] MEDS: ESCITALOPRAM 20 MG TAB PO SCH (10:56)
[2017-11-15] MEDS: FUROSEMIDE 40 MG TAB PO SCH (10:56)
[2017-11-15] MEDS: amLODIPine 10 MG TAB PO SCH (10:56)
[2017-11-15] MEDS: CYANOCOBALAMIN 500 MCG TAB PO SCH (10:56)
[2017-11-15] MEDS: MAGNESIUM OXIDE 400 MG TAB PO SCH (10:57)
[2017-11-15] MEDS: predniSONE 10 MG TAB PO SCH (10:57)
[2017-11-15] MEDS: POTASSIUM CHLORIDE ER 20 MEQ TAB.ER PO SCH (10:57)
[2017-11-15] MEDS: LISINOPRIL 5 MG TAB PO SCH (10:57)
[2017-11-15] MEDS: PANTOPRAZOLE 40 MG/10 ML VIAL IV SCH (10:57)
[2017-11-15] MEDS: POLYETHYLENE GLYCOL 3350 17 GM POWD.PACK PO SCH (10:57)
--- NOTE | 2017-11-15 11:06 | P.DS ---
Providers Date of admission: 11/12/17 19:15 Expected date of discharge: 11/15/17 Attending physician: Luis Quesada Consults: 11/12/17 17:58 Consult Physician Stat Consulting Provider: Lukas Lr Consult Reason/Comments: Afib, Elevated Troponin Do you want consulting provider notified?: Yes 11/12/17 19:13 Consult Physician Stat Consulting Provider: Hever Chong Consult Reason/Comments: GI bleed Do you want consulting provider notified?: Yes 11/12/17 19:18 Consult Physician Urgent Consulting Provider: Rupert Loza Consult Reason/Comments: foot ulcer Do you want consulting provider notified?: Yes Primary care physician: Laird Hospital Course: 82-year-old male who presented to the emergency room with a chief complaint of shortness of breath, fatigue, weakness, and wound to his great right toe. Patient states over the last few weeks he has felt increasing more weak. His family brought him to the hospital for further evaluation. The patient has a history of coronary artery disease, heart failure, COPD, diabetes mellitus, CVA, hyperlipidemia, hypertension, osteoarthritis, myocardial infarction, sleep apnea without use of his CPAP. 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 Patient underwent EGD in 2017 which revealed esophagitis and mild antral gastritis. Patient is unable to recall when he had his last colonoscopy. Chest x-ray: Negative for an acute process. X-ray right ankle: Small avulsion may be present inferior to the medial malleolus. Vascular calcification. X-ray right foot: No suspicious changes of acute osteomyelitis, open wound inferior medial great toe, radiopaque foreign body inferior to the distal phalanx at the distal interphalangeal joint space great toe. Laboratory data: WBC 11.3. Hemoglobin 7.3. Platelet count 664. Sodium 133. Potassium 5.0. BUN 38. Creatinine 1.30 glucose 354 AST 70. ALT 83. Pancreatic enzymes within normal limits. Troponin: 0.066, 0.056 BNP: 3070. Stool for occult blood was positive. The patient was admitted to the hospital under the care of Dr. Quesada. Consultations were placed to cardiology, infectious disease, and GI. 11/14/2017 The patient was seen and examined on the general medical unit. He received 1 unit RBC yesterday. Hemoglobin this morning is 8.3, up from 7.8 yesterday. Patient states he is less short of breath today and overall is feeling better. Patient remains in a-fib. Patient states this is not new for him and he was told he had it for the first time a few years ago. However, there is no previous documentation of this in [employer] or from Dr. Giang office to my knowledge. No family is present at the bedside to clarify. No anticoagulation at this time secondary to possible blood loss. Patient was evaluated by Dr. Loza yesterday and does not require antibiotics at this time. Patient will follow up outpatient with Dr. Loza in the wound care center after DC for possible debridement. Dr. Loza recommends therahoney and gauze dressing to right toe. Blood cultures are negative at the 24 hour sandoval. Patient has been afebrile. Patient tolerating PO intake without nausea or vomiting. Patient is hoping to be discharged home soon. 11/15/2017 Patient seen and examined at the bedside. Patient has remained stable. He denies SOB or chest pain. Patient was evaluated by GI physician and no intervention to be performed during this hospitalization. Patient is to follow up on an outpatient basis for further testing. Patient's hemoglobin has remained stable. Cardiology is also following secondary to new onset A. fib. No anticoagulation will be started at this time. Patient is to follow-up with cardiology on an outpatient basis. The patient was deemed stable for discharge. He is to follow up on an outpatient basis with his primary care physician on consult and providers. 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 Loza COPD, no evidence of acute exacerbation, maintained on daily prednisone History of obstructive sleep apnea, patient does not tolerate CPAP History of coronary artery disease with previous CABG 3 History of MRSA in 2014 of left leg Nurse practitioner note has been reviewed by physician. Signing provider agrees with the documented findings, assessment, and plan of care. Patient Condition at Discharge: Stable Plan - Discharge Summary Discharge Rx Participant: No New Discharge Prescriptions: New amLODIPine [Norvasc] 10 mg PO DAILY #30 tab Furosemide [Lasix] 40 mg PO BID@0900,1600 #60 tab Lisinopril [Zestril] 5 mg PO DAILY #30 tab Continue Montelukast [Singulair] 10 mg PO HS Insulin Detemir [Levemir Flextouch] 60 units SQ HS Zinc 50 mg PO DAILY Pravastatin Sodium 40 mg PO HS Magnesium Oxide [Mag-Ox] 250 mg PO DAILY Isosorbide Mononitrate ER [Imdur] 30 mg PO DAILY Insulin Aspart [NovoLOG Flexpen] 17 units SQ AC-TID Albuterol Nebulized [Ventolin Nebulized] 2.5 mg INHALATION RT-TID PRN PRN Reason: Shortness Of Breath Potassium Chloride ER [K-Dur 20] 40 meq PO DAILY Willard-3 Fatty Acids/Fish Oil [Fish Oil 1,000 mg Softgel] 1 cap PO DAILY Escitalopram [Lexapro] 20 mg PO DAILY Acetaminophen Tab [Tylenol] 500 - 1,000 mg PO Q6HR PRN PRN Reason: Pain Pantoprazole [Protonix] 40 mg PO DAILY #30 tab predniSONE 10 mg PO DAILY Insulin Aspart [NovoLOG Flexpen] See Protocol SQ AC-TID PRN PRN Reason: Blood Sugar - High Cyanocobalamin [Vitamin B-12] 500 mcg PO MOWEFR Polyethylene Glycol 3350 [Miralax] 17 gm PO DAILY Budesonide-Formot 160-4.5 Mcg [Symbicort 160-4.5 Mcg Inhaler] 2 puff INHALATION BID Discontinued Aspirin EC [Ecotrin Low Dose] 81 mg PO HS Furosemide [Lasix] 40 mg PO DAILY Discharge Medication List Insulin Detemir [Levemir Flextouch] 60 units SQ HS 12/21/14 [History] Montelukast [Singulair] 10 mg PO HS 12/21/14 [History] Insulin Aspart [NovoLOG Flexpen] 17 units SQ AC-TID 02/07/16 [History] Isosorbide Mononitrate ER [Imdur] 30 mg PO DAILY 02/07/16 [History] Magnesium Oxide [Mag-Ox] 250 mg PO DAILY 02/07/16 [History] Pravastatin Sodium 40 mg PO HS 02/07/16 [History] Zinc 50 mg PO DAILY 02/07/16 [History] Albuterol Nebulized [Ventolin Nebulized] 2.5 mg INHALATION RT-TID PRN 04/02/16 [ History] Potassium Chloride ER [K-Dur 20] 40 meq PO DAILY 04/02/16 [History] Willard-3 Fatty Acids/Fish Oil [Fish Oil 1,000 mg Softgel] 1 cap PO DAILY [History] Acetaminophen Tab [Tylenol] 500 - 1,000 mg PO Q6HR PRN 03/17/17 [History] Escitalopram [Lexapro] 20 mg PO DAILY 03/17/17 [History] Pantoprazole [Protonix] 40 mg PO DAILY #30 tab 03/21/17 [Rx] Cyanocobalamin [Vitamin B-12] 500 mcg PO MOWEFR 11/12/17 [History] Insulin Aspart [NovoLOG Flexpen] See Protocol SQ AC-TID PRN 11/12/17 [History] Polyethylene Glycol 3350 [Miralax] 17 gm PO DAILY 11/12/17 [History] predniSONE 10 mg PO DAILY 11/12/17 [History] Budesonide-Formot 160-4.5 Mcg [Symbicort 160-4.5 Mcg Inhaler] 2 puff INHALATION BID 11/13/17 [History] Furosemide [Lasix] 40 mg PO BID@0900,1600 #60 tab 11/15/17 [Rx] Lisinopril [Zestril] 5 mg PO DAILY #30 tab 11/15/17 [Rx] amLODIPine [Norvasc] 10 mg PO DAILY #30 tab 11/15/17 [Rx] Follow up Appointment(s)/Referral(s): Hever Chong MD [STAFF PHYSICIAN] - 2 Weeks Lukas Lr MD [STAFF PHYSICIAN] - 2 Weeks Luis Quesada Jr, DO [Primary Care Provider] - 1 Week Rupert Loza MD [STAFF PHYSICIAN] - 1 Week Activity/Diet/Wound Care/Special Instructions: Discontinue aspirin until you are re-evaluated at your follow up appointment with Dr. Quesada Follow up with Dr. Loza in the wound care center for your wounds on your right foot
[2017-11-15 11:15] LABS: Anisocytosis Slight; HCT 28.8 % (39.0-53.0); HGB 8.2 gm/dL (13.0-17.5); Hypochromasia Marked; MCH 20.3 pg (25.0-35.0); MCHC 28.6 g/dL (31.0-37.0); MCV 71.3 fL (80.0-100.0); Mean Platelet Volume 7.3; Microcytosis Marked; Platelet Count 607 k/uL (150-450); Poikilocytosis Marked; RBC 4.05 m/uL (4.30-5.90)
--- NOTE | 2017-11-15 11:46 | P.PN ---
Subjective Progress Note Date: 11/15/17 Principal diagnosis: anemia Seen around 0800 this morning. Feels weel. HGB 8.2. Denies overt GI bleeding. Denies abdominal pain. Objective - Vital Signs Vital signs: Vital Signs Temp 98.0 F 11/14/17 22:51 Pulse 74 11/14/17 22:51 Resp 18 11/14/17 22:51 BP 121/58 11/14/17 22:51 Pulse Ox 94 L 11/14/17 22:51 Intake & Output 11/14/17 11/15/17 11/15/17 18:59 06:59 18:59 Output Total 600 Balance -600 Weight 107.5 kg Output: Urine 600 Other: Voiding Method Toilet Toilet Urinal Urinal # Voids 2 1 # Bowel Movements 1 - Constitutional General appearance: Present: average body habitus - EENT Eyes: Present: normal appearance - Respiratory Respiratory: bilateral: CTA - Cardiovascular Heart sounds: normal: S1, S2 - Gastrointestinal General gastrointestinal: Present: soft - Labs CBC & Chem 7: 11/15/17 07:44 11/14/17 08:19 Labs: Abnormal Lab Results - Last 24 Hours (Table) 11/14/17 11/14/17 11/14/17 Range/Units 08:19 12:16 17:11 WBC (3.8-10.6) k/uL RBC (4.30-5.90) m/uL Hgb (13.0-17.5) gm/dL Hct (39.0-53.0) % MCV (80.0-100.0) fL MCH (25.0-35.0) pg MCHC (31.0-37.0) g/dL RDW (11.5-15.5) % Plt Count (150-450) k/uL POC Glucose (mg/dL) 169 H 249 H (75-99) mg/dL Hemoglobin A1c 9.9 H (4.0-6.0) % 11/14/17 11/15/17 11/15/17 Range/Units 20:28 04:37 05:20 WBC (3.8-10.6) k/uL RBC (4.30-5.90) m/uL Hgb (13.0-17.5) gm/dL Hct (39.0-53.0) % MCV (80.0-100.0) fL MCH (25.0-35.0) pg MCHC (31.0-37.0) g/dL RDW (11.5-15.5) % Plt Count (150-450) k/uL POC Glucose (mg/dL) 253 H 55 L 123 H (75-99) mg/dL Hemoglobin A1c (4.0-6.0) % 11/15/17 11/15/17 Range/Units 07:15 07:44 WBC 19.4 H (3.8-10.6) k/uL RBC 4.05 L (4.30-5.90) m/uL Hgb 8.2 L (13.0-17.5) gm/dL Hct 28.8 L (39.0-53.0) % MCV 71.3 L (80.0-100.0) fL MCH 20.3 L (25.0-35.0) pg MCHC 28.6 L (31.0-37.0) g/dL RDW 19.0 H (11.5-15.5) % Plt Count 607 H (150-450) k/uL POC Glucose (mg/dL) 188 H (75-99) mg/dL Hemoglobin A1c (4.0-6.0) % Microbiology - Last 24 Hours (Table) 11/13/17 13:45 Gram Stain - Preliminary Toe - Right First Wound Culture - Preliminary 11/13/17 13:45 Anaerobic Culture - Preliminary Toe - Right First 11/12/17 15:20 Blood Culture - Preliminary Blood No Growth after 48 hours Assessment and Plan Assessment: Impression: 1. Symptomatic microcytic iron deficiency anemia without overt GI bleeding but positive Hemoccult stool. History of iron deficiency anemia EGD February 2017 no evidence of peptic ulcer disease colonoscopy 2012. 2. Atrial fibrillation rate controlled. 3. Right great toe wound. 4. History of partial splenectomy. 5. Non ST elevated [place]. CHF chronic systolic exacerbation. Recommendations: 1. Dr. Anaya recommends outpatient colonoscopy possible small bowel capsule endoscopy for further evaluation of anemia; Colonoscopy scheduled December 07, 2017. 2. Continue GI prophylaxis. CBC monitoring in outpatient setting. DC per medicine. Assessment and plan of care discussed with Dr. Anaya
[2017-11-15 12:04] LABS: Glucose,Whole Blood 326 mg/dL (75-99)
[2017-11-15 12:19] LABS: Eosinophils # (M) 0.18 k/uL (0-0.7); Lymphocytes # (M) 0.88 k/uL (1.0-4.8); Neutrophils % (M) 92 %; Nucleated Red Blood Cells 11 /100 WBC (0-0); Total Cells Counted 200; WBC 17.5 k/uL (3.8-10.6)
[2017-11-15 12:21] LABS: RBC Fragments Present; Target Cells Present
[2017-11-15 12:22] LABS: Polychromasia Present
[2017-11-15 12:23] LABS: Mixed Population RBC Present
[2017-11-15 14:02] VITALS: PULSE 67
--- NOTE | 2017-11-23 16:48 | CDI ---
Last Revision, April 2017 Documentation Clarification Form Date: 11/23/17 From: Brunilda Brandon Rand Johnson, Community Services Officer Hours-8:30 am & 5 pm M-Carlie Admit Date: 11/12/2017 7:15:00 PM Patient Name: Quincy Carson Visit Number: [id number] Discharge Date: 11/15/17 ATTENTION: The Clinical Documentation Specialists (CDI) and [facility] Coding Staff appreciate your assistance in clarifying documentation. Please respond to the clarification below the line at the bottom and electronically sign. The CDI & [facility] Coding staff will review the response and follow-up if needed. Please note: Queries are made part of the Legal Health Record. If you have any questions, please contact the author of this message via ITS. Dr. Luis Quesada The patient has diabetes Type II with elevated blood sugar as indicated in ED record. POC glucose: 434, 328, 123, 182, 304, 224, 58, 96, 169, 249, 253, 55, 76, 123, 188, 326 Glucose: 354, 148, 79, 165 Treatment: Cover with adult NovoLOG sliding scale Per [facility] 2016 - query the provider for clarification whether the patient has hyperglycemia or hypoglycemia so that the appropriate code may be reported - uncontrolled diabetes indicates that the patient's blood sugar is not at an acceptable level, because it is either too high or too low. In order to capture the severity of Illness and necessary documentation specificity, please clarify if Type 2 uncontrolled diabetes is: Type II uncontrolled Diabetes mellitus - Hyperglycemia Type II uncontrolled Diabetes mellitus - Hypoglycemia Other, please specify Unable to Determine Please continue to document in your progress notes and discharge summary in order to capture severity of illness and risk of mortality. Include clinical findings that support your diagnosis. MTDD
== END 2017-11-15 14:43 | disposition home or self-care (01) | DRG 280 ==
LOC: EC 14:10 → 6SEL 19:15 → 4MS4W 11-13 15:22
PROVIDERS: ADMIT Family Medicine; ATTEND Family Medicine
PROC: 30230N1 Transfusion of Nonautologous Red Blood Cells into Peripheral Vein, Open Approach (ICD-10-PCS; principal; 2017-11-13)
DX: I21.4 Non-ST elevation (NSTEMI) myocardial infarction (principal); I50.23 Acute on chronic systolic (congestive) heart failure; K92.2 Gastrointestinal hemorrhage, unspecified; E11.621 Type 2 diabetes mellitus with foot ulcer; E11.42 Type 2 diabetes mellitus with diabetic polyneuropathy; L97.512 Non-pressure chronic ulcer of other part of right foot with fat layer exposed; E11.65 Type 2 diabetes mellitus with hyperglycemia; I11.0 Hypertensive heart disease with heart failure; J44.9 Chronic obstructive pulmonary disease, unspecified; E11.649 Type 2 diabetes mellitus with hypoglycemia without coma; I48.0 Paroxysmal atrial fibrillation; I44.7 Left bundle-branch block, unspecified; D47.3 Essential (hemorrhagic) thrombocythemia; S91.141A Puncture wound with foreign body of right great toe without damage to nail, initial encounter; N40.0 Benign prostatic hyperplasia without lower urinary tract symptoms; I25.10 Atherosclerotic heart disease of native coronary artery without angina pectoris; E78.5 Hyperlipidemia, unspecified; M19.041 Primary osteoarthritis, right hand; M19.042 Primary osteoarthritis, left hand; K44.9 Diaphragmatic hernia without obstruction or gangrene; M46.90 Unspecified inflammatory spondylopathy, site unspecified; D50.9 Iron deficiency anemia, unspecified; F32.9 Major depressive disorder, single episode, unspecified; F41.9 Anxiety disorder, unspecified; G47.33 Obstructive sleep apnea (adult) (pediatric); I25.2 Old myocardial infarction; E66.9 Obesity, unspecified; Z68.34 Body mass index [BMI] 34.0-34.9, adult; Z95.1 Presence of aortocoronary bypass graft; Z86.14 Personal history of Methicillin resistant Staphylococcus aureus infection; Z79.82 Long term (current) use of aspirin; Z79.4 Long term (current) use of insulin; Z79.51 Long term (current) use of inhaled steroids; Z79.899 Other long term (current) drug therapy; Z85.528 Personal history of other malignant neoplasm of kidney; Z90.5 Acquired absence of kidney; Z90.81 Acquired absence of spleen; Z90.411 Acquired partial absence of pancreas; Z86.73 Personal history of transient ischemic attack (TIA), and cerebral infarction without residual deficits; Z88.1 Allergy status to other antibiotic agents; Z88.5 Allergy status to narcotic agent; Z88.0 Allergy status to penicillin; Z88.2 Allergy status to sulfonamides; Z88.8 Allergy status to other drugs, medicaments and biological substances; Z82.49 Family history of ischemic heart disease and other diseases of the circulatory system; Z82.5 Family history of asthma and other chronic lower respiratory diseases
CPT/HCPCS: 36415; 71046; 80053; 81003; 82150; 82272; 82550; 82553; 83036; 83690; 83735; 83880; 84484; 85025; 85610; 85730; 86850; 86900; 86901; 86920; 87040; 87070; 87075; 87077; 87186; 87205; 93005; 94640; 96361; 96365; 96375; 99285

== ENCOUNTER 2017-11-25 01:06 | Inpatient (IN) | payer MEDICARE, BC ==
[2017-11-25 01:32] LABS: Glucose,Whole Blood 40 mg/dL (75-99)
[2017-11-25] MEDS: DEXTROSE 50%-WATER 50 ML SYRINGE IVP STA ×2 (01:32→02:14)
--- NOTE | 2017-11-25 01:43 | ED ---
General Adult HPI - General Chief complaint: Recheck/Abnormal Lab/Rx Stated complaint: Diabetic issue Time Seen by Provider: 11/25/17 01:09 Source: patient, EMS, RN notes reviewed, old records reviewed Mode of arrival: EMS Limitations: no limitations - History of Present Illness Initial comments: This is an 82-year-old male brought in the ER for evaluation. Patient altered mental state. Patient believes he took too much insulin tonight did not eat. Patient's brought in by EMS. Patient continued to have altered mental state. Not feeling well. When asked record any complaints patient denies complaint - Related Data Home Medications Medication Instructions Recorded Confirmed Insulin Detemir [Levemir Flextouch] 60 units SQ HS 12/21/14 11/13/17 Montelukast [Singulair] 10 mg PO HS 12/21/14 11/13/17 Insulin Aspart [NovoLOG Flexpen] 17 units SQ AC-TID 02/07/16 11/13/17 Isosorbide Mononitrate ER [Imdur] 30 mg PO DAILY 02/07/16 11/13/17 Magnesium Oxide [Mag-Ox] 250 mg PO DAILY 02/07/16 11/13/17 Pravastatin Sodium 40 mg PO HS 02/07/16 11/13/17 Zinc 50 mg PO DAILY 02/07/16 11/13/17 Albuterol Nebulized [Ventolin 2.5 mg INHALATION RT-TID PRN 04/02/16 11/13/17 Nebulized] Potassium Chloride ER [K-Dur 20] 40 meq PO DAILY 04/02/16 11/13/17 [place]ant-3 Fatty Acids/Fish Oil [Fish 1 cap PO DAILY 08/13/16 11/13/17 Oil 1,000 mg Softgel] Acetaminophen Tab [Tylenol] 500 - 1,000 mg PO Q6HR PRN 03/17/17 11/13/17 Escitalopram [Lexapro] 20 mg PO DAILY 03/17/17 11/13/17 Cyanocobalamin [Vitamin B-12] 500 mcg PO MOWEFR 11/12/17 11/13/17 Insulin Aspart [NovoLOG Flexpen] See Protocol SQ AC-TID PRN 11/12/17 11/13/17 Polyethylene Glycol 3350 [Miralax] 17 gm PO DAILY 11/12/17 11/13/17 predniSONE 10 mg PO DAILY 11/12/17 11/13/17 Budesonide-Formot 160-4.5 Mcg 2 puff INHALATION BID 11/13/17 11/13/17 [Symbicort 160-4.5 Mcg Inhaler] Previous Rx's Medication Instructions Recorded Pantoprazole [Protonix] 40 mg PO DAILY #30 tab 03/21/17 Furosemide [Lasix] 40 mg PO BID@0900,1600 #60 tab 11/15/17 Lisinopril [Zestril] 5 mg PO DAILY #30 tab 11/15/17 amLODIPine [Norvasc] 10 mg PO DAILY #30 tab 11/15/17 Allergies Allergy/AdvReac Type Severity Reaction Status Date / Time Penicillins Allergy Unknown Rash/Hives Verified 11/25/17 01:13 atorvastatin calcium Allergy Unknown Verified 11/25/17 01:13 [From Lipitor] clonazepam [From Klonopin] Allergy Hallucinati Verified 11/25/17 01:13 ons codeine Allergy Hallucinati Verified 11/25/17 01:13 ons haloperidol [From Haldol] Allergy Hallucinati Verified 11/25/17 01:13 ons haloperidol lactate Allergy Hallucinati Verified 11/25/17 01:13 [From Haldol] ons hydromorphone HCl Allergy Hallucinati Verified 11/25/17 01:13 [From Dilaudid] ons methylphenidate HCl Allergy Hallucinati Verified 11/25/17 01:13 [From Ritalin] ons morphine Allergy Hallucinati Verified 11/25/17 01:13 ons propofol Allergy Hallucinati Verified 11/25/17 01:13 ons quetiapine fumarate Allergy Hallucinati Verified 11/25/17 01:13 [From Seroquel] ons Sulfa (Sulfonamide Allergy Unknown Verified 11/25/17 01:13 Antibiotics) vancomycin Allergy Unknown Verified 11/25/17 01:13 ativan AdvReac Unknown Uncoded 11/25/17 01:13 Review of Systems ROS Statement: Those systems with pertinent positive or pertinent negative responses have been documented in the HPI. ROS Other: All systems not noted in ROS Statement are negative. Past Medical History Past Medical History: Coronary Artery Disease (CAD), Cancer, Heart Failure, COPD , CVA/TIA, Diabetes Mellitus, Eye Disorder, Hyperlipidemia, Hypertension, Myocardial Infarction ([place]), Osteoarthritis (OA), Prostate Disorder, Sleep Apnea/ CPAP/BIPAP Additional Past Medical History / Comment(s): 2013 L renal cancer with surgery- partial nephrectomy/spleenectomy/distal portion of pancreas removed at [facility], IDDM type II, TIA, [place] unknown date, BPH, gastritis, small hiatal hernia, past discitis T9-T10, arthritis bilateral hands/back, TARIQ-does not tolerate his CPAP, past R great toe ulcer/infection, bilateral laser eye surgery for "alittle leakage". Last Myocardial Infarction Date:: UNKNOWN History of Any Multi-Drug Resistant Organisms: MRSA Date of last positivie culture/infection: 11/13/17 MDRO Source:: TOE Past Surgical History: Coronary Bypass/CABG, Heart Catheterization Additional Past Surgical History / Comment(s): partial L nephrectomy, distal pancreatectomy, splenectomy-at [place], 2000 CABG-3 vessel, EGD, colonoscopy, deviated septum surgery, skin/oral lesion removals, R carpal tunnel release, bilateral cataract removal, bilateral laser eye surgery for "leakage" Past Anesthesia/Blood Transfusion Reactions: Previous Problems w/ Anesthesia Additional Past Anesthesia/Blood Transfusion Reaction / Comment(s): 'TROUBLE COMING OUT OF ANESTESIA' - DELUSIONAL. Pt has received blood in past without reaction. Past Psychological History: Anxiety, Depression Smoking Status: Never smoker - Past Family History Father Family Medical History: Myocardial Infarction ([place]) Mother Family Medical History: COPD General Exam Limitations: no limitations General appearance: alert, in no apparent distress Head exam: Present: atraumatic, normocephalic, normal inspection Eye exam: Present: normal appearance, PERRL, EOMI. Absent: scleral icterus, conjunctival injection, periorbital swelling ENT exam: Present: normal exam, mucous membranes moist Neck exam: Present: normal inspection. Absent: tenderness, meningismus, lymphadenopathy Respiratory exam: Present: normal lung sounds bilaterally. Absent: respiratory distress, wheezes, rales, rhonchi, stridor Cardiovascular Exam: Present: regular rate, normal rhythm, normal heart sounds. Absent: systolic murmur, diastolic murmur, rubs, gallop, clicks GI/Abdominal exam: Present: soft, normal bowel sounds. Absent: distended, tenderness, guarding, rebound, rigid Extremities exam: Present: normal inspection, full ROM, normal capillary refill. Absent: tenderness, pedal edema, joint swelling, calf tenderness Back exam: Present: normal inspection Neurological exam: Present: alert, oriented X3, CN II-XII intact Psychiatric exam: Present: normal affect, normal mood Skin exam: Present: warm, dry, intact, normal color. Absent: rash Course Vital Signs 11/25/17 11/25/17 01:10 03:32 Temperature 98.3 F Pulse Rate 66 61 Respiratory 16 20 Rate Blood Pressure 142/68 150/71 O2 Sat by Pulse 93 L 96 Oximetry - Reevaluation(s) Reevaluation #1: 11/25/17 01:42 Patient's blood sugar found to be critically low 40s with altered mental state Reevaluation #2: 11/25/17 03:56 Blood sugar continues to drop from the 40s EKG Findings - EKG Comments: EKG Findings:: EKG shows A. fib rate of 53, QRS 120, QTc 471 Medical Decision Making - Medical Decision Making 82 male the ER for evaluation of altered mental state, recurrent low blood sugar. Will be admitted for D5 drip, patient to be admitted and will have also ultrasound left lower extremity in the morning DVT - Lab Data Result diagrams: 11/25/17 01:11 11/25/17 01:11 Lab Results 11/25/17 11/25/17 11/25/17 Range/Units 01:11 01:11 01:11 WBC 13.9 H (3.8-10.6) k/uL RBC 3.91 L (4.30-5.90) m/uL Hgb 7.6 L (13.0-17.5) gm/dL Hct 26.3 L (39.0-53.0) % MCV 67.2 L (80.0-100.0) fL MCH 19.5 L (25.0-35.0) pg MCHC 29.0 L (31.0-37.0) g/dL RDW 20.6 H (11.5-15.5) % Plt Count 444 (150-450) k/uL Neutrophils % (Manual) 80 % Lymphocytes % (Manual) 12 % Monocytes % (Manual) 7 % Eosinophils % (Manual) 1 % Basophils % (Manual) 1 % Neutrophils # (Manual) 11.12 H (1.3-7.7) k/uL Lymphocytes # (Manual) 1.67 (1.0-4.8) k/uL Monocytes # (Manual) 0.97 (0-1.0) k/uL Eosinophils # (Manual) 0.14 (0-0.7) k/uL Basophils # (Manual) 0.14 (0-0.2) k/uL Nucleated RBCs 3 H (0-0) /100 WBC Manual Slide Review Performed Hypochromasia Marked Poikilocytosis Marked Anisocytosis Moderate Microcytosis Marked Target Cells Present Henriquez[place] Bodies Present Fragmented RBCs Present PT (9.0-12.0) sec INR (<1.2) APTT (22.0-30.0) sec Sodium 134 L (137-145) mmol/L Potassium 4.5 (3.5-5.1) mmol/L Chloride 97 L (98-107) mmol/L Carbon Dioxide 24 (22-30) mmol/L Anion Gap 13 mmol/L BUN 29 H (9-20) mg/dL Creatinine 1.00 (0.66-1.25) mg/dL Est GFR (CKD-EPI)AfAm 82 (>60 ml/min/1.73 sqM) Est GFR (CKD-EPI)NonAf 71 (>60 ml/min/1.73 sqM) Glucose 31 L* (74-99) mg/dL POC Glucose (mg/dL) (75-99) mg/dL POC Glu Rn Training ID Plasma Lactic Acid Dean (0.7-2.0) mmol/L Calcium 9.0 (8.4-10.2) mg/dL Phosphorus 3.5 (2.5-4.5) mg/dL Magnesium 2.0 (1.6-2.3) mg/dL Total Bilirubin 0.4 (0.2-1.3) mg/dL AST 33 (17-59) U/L ALT 42 (21-72) U/L Alkaline Phosphatase 75 (38-126) U/L Total Creatine Kinase 118 (55-170) U/L CK-MB (CK-2) 7.9 H* (0.0-2.4) ng/mL CK-MB (CK-2) Rel Index 6.7 Troponin I 0.019 (0.000-0.034) ng/mL Total Protein 6.3 (6.3-8.2) g/dL Albumin 3.8 (3.5-5.0) g/dL TSH 0.630 (0.465-4.680) mIU/L Acetone, Qual Negative (Negative) 11/25/17 11/25/17 11/25/17 Range/Units 01:11 01:11 01:28 WBC (3.8-10.6) k/uL RBC (4.30-5.90) m/uL Hgb (13.0-17.5) gm/dL Hct (39.0-53.0) % MCV (80.0-100.0) fL MCH (25.0-35.0) pg MCHC (31.0-37.0) g/dL RDW (11.5-15.5) % Plt Count (150-450) k/uL Neutrophils % (Manual) % Lymphocytes % (Manual) % Monocytes % (Manual) % Eosinophils % (Manual) % Basophils % (Manual) % Neutrophils # (Manual) (1.3-7.7) k/uL Lymphocytes # (Manual) (1.0-4.8) k/uL Monocytes # (Manual) (0-1.0) k/uL Eosinophils # (Manual) (0-0.7) k/uL Basophils # (Manual) (0-0.2) k/uL Nucleated RBCs (0-0) /100 WBC Manual Slide Review Hypochromasia Poikilocytosis Anisocytosis Microcytosis Target Cells Henriquez[place] Bodies Fragmented RBCs PT 11.7 (9.0-12.0) sec INR 1.2 H (<1.2) APTT 25.6 (22.0-30.0) sec Sodium (137-145) mmol/L Potassium (3.5-5.1) mmol/L Chloride (98-107) mmol/L Carbon Dioxide (22-30) mmol/L Anion Gap mmol/L BUN (9-20) mg/dL Creatinine (0.66-1.25) mg/dL Est GFR (CKD-EPI)AfAm (>60 ml/min/1.73 sqM) Est GFR (CKD-EPI)NonAf (>60 ml/min/1.73 sqM) Glucose (74-99) mg/dL POC Glucose (mg/dL) 40 L (75-99) mg/dL POC Glu Rn Training Unique Saavedra Plasma Lactic Acid Dean 1.6 (0.7-2.0) mmol/L Calcium (8.4-10.2) mg/dL Phosphorus (2.5-4.5) mg/dL Magnesium (1.6-2.3) mg/dL Total Bilirubin (0.2-1.3) mg/dL AST (17-59) U/L ALT (21-72) U/L Alkaline Phosphatase (38-126) U/L Total Creatine Kinase (55-170) U/L CK-MB (CK-2) (0.0-2.4) ng/mL CK-MB (CK-2) Rel Index Troponin I (0.000-0.034) ng/mL Total Protein (6.3-8.2) g/dL Albumin (3.5-5.0) g/dL TSH (0.465-4.680) mIU/L Acetone, Qual (Negative) 11/25/17 11/25/17 11/25/17 Range/Units 01:48 02:11 02:38 WBC (3.8-10.6) k/uL RBC (4.30-5.90) m/uL Hgb (13.0-17.5) gm/dL Hct (39.0-53.0) % MCV (80.0-100.0) fL MCH (25.0-35.0) pg MCHC (31.0-37.0) g/dL RDW (11.5-15.5) % Plt Count (150-450) k/uL Neutrophils % (Manual) % Lymphocytes % (Manual) % Monocytes % (Manual) % Eosinophils % (Manual) % Basophils % (Manual) % Neutrophils # (Manual) (1.3-7.7) k/uL Lymphocytes # (Manual) (1.0-4.8) k/uL Monocytes # (Manual) (0-1.0) k/uL Eosinophils # (Manual) (0-0.7) k/uL Basophils # (Manual) (0-0.2) k/uL Nucleated RBCs (0-0) /100 WBC Manual Slide Review Hypochromasia Poikilocytosis Anisocytosis Microcytosis Target Cells Henriquez-[place] Bodies Fragmented RBCs PT (9.0-12.0) sec INR (<1.2) APTT (22.0-30.0) sec Sodium (137-145) mmol/L Potassium (3.5-5.1) mmol/L Chloride (98-107) mmol/L Carbon Dioxide (22-30) mmol/L Anion Gap mmol/L BUN (9-20) mg/dL Creatinine (0.66-1.25) mg/dL Est GFR (CKD-EPI)AfAm (>60 ml/min/1.73 sqM) Est GFR (CKD-EPI)NonAf (>60 ml/min/1.73 sqM) Glucose (74-99) mg/dL POC Glucose (mg/dL) 94 58 L 108 H (75-99) mg/dL POC Glu Rn Training [place] Matthew Maniez, Jason Plasma Lactic Acid Dean (0.7-2.0) mmol/L Calcium (8.4-10.2) mg/dL Phosphorus (2.5-4.5) mg/dL Magnesium (1.6-2.3) mg/dL Total Bilirubin (0.2-1.3) mg/dL AST (17-59) U/L ALT (21-72) U/L Alkaline Phosphatase (38-126) U/L Total Creatine Kinase (55-170) U/L CK-MB (CK-2) (0.0-2.4) ng/mL CK-MB (CK-2) Rel Index Troponin I (0.000-0.034) ng/mL Total Protein (6.3-8.2) g/dL Albumin (3.5-5.0) g/dL TSH (0.465-4.680) mIU/L Acetone, Qual (Negative) 11/25/17 Range/Units 03:19 WBC (3.8-10.6) k/uL RBC (4.30-5.90) m/uL Hgb (13.0-17.5) gm/dL Hct (39.0-53.0) % MCV (80.0-100.0) fL MCH (25.0-35.0) pg MCHC (31.0-37.0) g/dL RDW (11.5-15.5) % Plt Count (150-450) k/uL Neutrophils % (Manual) % Lymphocytes % (Manual) % Monocytes % (Manual) % Eosinophils % (Manual) % Basophils % (Manual) % Neutrophils # (Manual) (1.3-7.7) k/uL Lymphocytes # (Manual) (1.0-4.8) k/uL Monocytes # (Manual) (0-1.0) k/uL Eosinophils # (Manual) (0-0.7) k/uL Basophils # (Manual) (0-0.2) k/uL Nucleated RBCs (0-0) /100 WBC Manual Slide Review Hypochromasia Poikilocytosis Anisocytosis Microcytosis Target Cells Henriquez-[place] Bodies Fragmented RBCs PT (9.0-12.0) sec INR (<1.2) APTT (22.0-30.0) sec Sodium (137-145) mmol/L Potassium (3.5-5.1) mmol/L Chloride (98-107) mmol/L Carbon Dioxide (22-30) mmol/L Anion Gap mmol/L BUN (9-20) mg/dL Creatinine (0.66-1.25) mg/dL Est GFR (CKD-EPI)AfAm (>60 ml/min/1.73 sqM) Est GFR (CKD-EPI)NonAf (>60 ml/min/1.73 sqM) Glucose (74-99) mg/dL POC Glucose (mg/dL) 85 (75-99) mg/dL POC Glu Rn Training ID Bereket [place] Plasma Lactic Acid Dean (0.7-2.0) mmol/L Calcium (8.4-10.2) mg/dL Phosphorus (2.5-4.5) mg/dL Magnesium (1.6-2.3) mg/dL Total Bilirubin (0.2-1.3) mg/dL AST (17-59) U/L ALT (21-72) U/L Alkaline Phosphatase (38-126) U/L Total Creatine Kinase (55-170) U/L CK-MB (CK-2) (0.0-2.4) ng/mL CK-MB (CK-2) Rel Index Troponin I (0.000-0.034) ng/mL Total Protein (6.3-8.2) g/dL Albumin (3.5-5.0) g/dL TSH (0.465-4.680) mIU/L Acetone, Qual (Negative) Disposition Clinical Impression: Hypoglycemia Disposition: ADMITTED IP TO THIS HOSP Condition: Good Is patient prescribed a controlled substance at d/c from ED?: No Referrals: Luis Quesada Jr, [Primary Care Provider] - 1-2 days
[2017-11-25 01:57] LABS: Anisocytosis Moderate; HCT 26.3 % (39.0-53.0); HGB 7.6 gm/dL (13.0-17.5); Hypochromasia Marked; MCH 19.5 pg (25.0-35.0); MCV 67.2 fL (80.0-100.0); Mean Platelet Volume 7.9; Microcytosis Marked; Platelet Count 444 k/uL (150-450); Poikilocytosis Marked; RBC 3.91 m/uL (4.30-5.90); RDW 20.6 % (11.5-15.5)
[2017-11-25 01:59] LABS: ALT 42 U/L (21-72); AST 33 U/L (17-59); Albumin 3.8 g/dL (3.5-5.0); Alkaline Phosphatase 75 U/L (38-126); Anion Gap 13 mmol/L; Blood Urea Nitrogen 29 mg/dL (9-20); Carbon Dioxide 24 mmol/L (22-30); Chloride 97 mmol/L (98-107); Phosphorus 3.5 mg/dL (2.5-4.5); Potassium 4.5 mmol/L (3.5-5.1); Sodium 134 mmol/L (137-145); Total Bilirubin 0.4 mg/dL (0.2-1.3); Total Protein 6.3 g/dL (6.3-8.2)
[2017-11-25 02:00] LABS: Glucose,Whole Blood 94 mg/dL (75-99)
[2017-11-25 02:01] LABS: INR 1.2 (<1.2); Partial Thromboplastin Time 25.6 sec (22.0-30.0); Prothrombin Time 11.7 sec (9.0-12.0)
[2017-11-25 02:15] LABS: Glucose,Whole Blood 58 mg/dL (75-99)
[2017-11-25 02:17] LABS: Glucose 31 mg/dL (74-99)
[2017-11-25] MEDS ORDERED: DEXTROSE 5%-0.45% NACL 1,000 ML IV ONE (02:17)
[2017-11-25] MEDS ORDERED: DEXTROSE 50%-WATER 50 ML SYRINGE IVP STA (02:17)
[2017-11-25 02:24] LABS: Troponin I 0.019 ng/mL (0.000-0.034)
[2017-11-25 02:25] LABS: Creatine Kinase MB 7.9 ng/mL (0.0-2.4)
[2017-11-25 02:47] LABS: Basophils # (M) 0.14 k/uL (0-0.2); Eosinophils # (M) 0.14 k/uL (0-0.7); Neutrophils % (M) 80 %; Nucleated Red Blood Cells 3 /100 WBC (0-0); Total Cells Counted 200
[2017-11-25 02:48] LABS: Lymphocytes # (M) 1.67 k/uL (1.0-4.8); Monocytes # (M) 0.97 k/uL (0-1.0); Neutrophils # (M) 11.12 k/uL (1.3-7.7); RBC Fragments Present; Target Cells Present; WBC 13.9 k/uL (3.8-10.6)
[2017-11-25 02:49] LABS: Howell-Jolly Bodies Present
[2017-11-25 02:51] LABS: Glucose,Whole Blood 108 mg/dL (75-99)
[2017-11-25 03:21] LABS: Glucose,Whole Blood 85 mg/dL (75-99)
[2017-11-25] MEDS ORDERED: MORPHINE SULFATE/PF 10MG/10ML VL IVP STA (03:23)
[2017-11-25] MEDS ORDERED: ACETAMINOPHEN TAB 325 MG TAB PO STA (03:25)
[2017-11-25 03:56] LABS: Glucose,Whole Blood 99 mg/dL (75-99)
[2017-11-25] MEDS: ENOXAPARIN 40 MG/0.4 ML SYRINGE SQ SCH (04:09)
[2017-11-25 04:23] LABS: Appearance,Urine Clear (Clear); Bilirubin,Urine Negative (Negative); Blood,Urine Negative (Negative); Color,Urine Light Yellow; Glucose,Urine (UA) 3+ (Negative); Ketones,Urine Negative (Negative); Leukocyte Esterase,Urine Negative (Negative); Nitrite,Urine Negative (Negative); Protein,Urine Trace (Negative); Specific Gravity,Urine 1.008 (1.001-1.035); Urobilinogen,Urine <2.0 mg/dL (<2.0)
[2017-11-25 04:47] LABS: Glucose,Whole Blood 100 mg/dL (75-99)
[2017-11-25 06:05] LABS: Glucose,Whole Blood 106 mg/dL (75-99)
[2017-11-25 07:23] LABS: Glucose,Whole Blood 96 mg/dL (75-99)
--- NOTE | 2017-11-25 08:31 | US ---
EXAMINATION TYPE: US venous doppler duplex LE LT DATE OF EXAM: 11/25/2017 8:09 AM COMPARISON: NONE CLINICAL HISTORY: Pain. SIDE PERFORMED: Left TECHNIQUE: The lower extremity deep venous system is examined utilizing real time linear array sonog josh with graded compression, doppler sonography and color-flow sonography. VESSELS IMAGED: External Iliac Vein (EIV) Common Femoral Vein Deep Femoral Vein Greater Saphenous Vein * Femoral Vein Popliteal Vein Small Saphenous Vein * Proximal Calf Veins, not seen due to swelling (* superficial vessels) Left Leg: Negative for DVT No popliteal fossa lesion was seen. IMPRESSION: THIS EXAMINATION IS NEGATIVE FOR DVT WITHIN THE LEFT LEG.
[2017-11-25 09:00] LABS: Glucose,Whole Blood 116 mg/dL (75-99)
--- NOTE | 2017-11-25 09:29 | P.HPIM ---
History of Present Illness H&P Date: 11/25/17 Chief Complaint: Hypoglycemia and fatigue This is a 82-year-old male well-known to my partner Dr. Quesada and rods seen on multiple occasions as well, who presented to the emergency room with a chief complaint of confusion, fatigue, weakness, and wound to his great right toe. Patient states over the last few weeks he has felt increasing more weak. patient believes he took too much insulin last night and did not eat. Patient's brought in by EMS to the ER where he is worked up. He was given glucose, but his sugar did not return to normal quickly. He was recently here for hospital stay November 12 to November 15. He was seen by Dr. Lr, Dr. Chong, Dr. Loza. He received a transfusion for symptomatic anemia. He was treated for his diabetic foot ulcer, which is now callused over , and evaluated for abnormal troponins and a non-ST elevated myocardial infarction. He also believed he had some underlying congestive heart failure. Currently he is awake and alert, his daughter and is at bedside. He continues to complain of fatigue and shortness of breath with exertion, that is abnormal for him typically. He has an extensive medical history of atrial fibrillation, anticoagulation, type insulin dependent diabetes mellitus, recent symptomatic anemia of unknown origin, renal carcinoma with nephrectomy, partial pancreatectomy and splenectomy, he currently feels fatigued and weak. Denies any chest pains, pressures. Shortness of breath with exertion only. No nausea or vomiting this time. No recent diarrhea or constipation. Review of Systems All systems: negative Past Medical History Past Medical History: Coronary Artery Disease (CAD), Cancer, Heart Failure, COPD , CVA/TIA, Diabetes Mellitus, Eye Disorder, Hyperlipidemia, Hypertension, Myocardial Infarction ([place]), Osteoarthritis (OA), Prostate Disorder, Sleep Apnea/ CPAP/BIPAP Additional Past Medical History / Comment(s): 2013 L renal cancer with surgery- partial nephrectomy/spleenectomy/distal portion of pancreas removed at [facility], IDDM type II, TIA, [place] unknown date, BPH, gastritis, small hiatal hernia, past discitis T9-T10, arthritis bilateral hands/back, TARIQ-does not tolerate his CPAP, past R great toe ulcer/infection, bilateral laser eye surgery for "alittle leakage". Last Myocardial Infarction Date:: UNKNOWN History of Any Multi-Drug Resistant Organisms: MRSA Date of last positivie culture/infection: 11/13/17 MDRO Source:: TOE Past Surgical History: Coronary Bypass/CABG, Heart Catheterization Additional Past Surgical History / Comment(s): partial L nephrectomy, distal pancreatectomy, splenectomy-at 2000 CABG-3 vessel, EGD, colonoscopy, deviated septum surgery, skin/oral lesion removals, R carpal tunnel release, bilateral cataract removal, bilateral laser eye surgery for "leakage" Past Anesthesia/Blood Transfusion Reactions: Previous Problems w/ Anesthesia Additional Past Anesthesia/Blood Transfusion Reaction / Comment(s): 'TROUBLE COMING OUT OF ANESTESIA' - DELUSIONAL. Pt has received blood in past without reaction. Past Psychological History: Anxiety, Depression Additional Psychological History / Comment(s): Pt resides with his spouse. He uses a cane or walker to ambulate. He no longer drives. His spouse drives and manages his medications. Smoking Status: Never smoker Past Alcohol Use History: None Reported Past Drug Use History: None Reported - Past Family History Father Family Medical History: Myocardial Infarction ([place]) Mother Family Medical History: COPD Medications and Allergies Home Medications Medication Instructions Recorded Confirmed Type Insulin Detemir [Levemir Flextouch] 60 units SQ HS 12/21/14 11/13/17 History Montelukast [Singulair] 10 mg PO HS 12/21/14 11/13/17 History Insulin Aspart [NovoLOG Flexpen] 17 units SQ AC-TID 02/07/16 11/13/17 History Isosorbide Mononitrate ER [Imdur] 30 mg PO DAILY 02/07/16 11/13/17 History Magnesium Oxide [Mag-Ox] 250 mg PO DAILY 02/07/16 11/13/17 History Pravastatin Sodium 40 mg PO HS 02/07/16 11/13/17 History Zinc 50 mg PO DAILY 02/07/16 11/13/17 History Albuterol Nebulized [Ventolin 2.5 mg INHALATION RT-TID PRN 04/02/16 11/13/17 History Nebulized] Potassium Chloride ER [K-Dur 20] 40 meq PO DAILY 04/02/16 11/13/17 History [place]-3 Fatty Acids/Fish Oil [Fish 1 cap PO DAILY 08/13/16 11/13/17 History Oil 1,000 mg Softgel] Acetaminophen Tab [Tylenol] 500 - 1,000 mg PO Q6HR PRN 03/17/17 11/13/17 History Escitalopram [Lexapro] 20 mg PO DAILY 03/17/17 11/13/17 History Pantoprazole [Protonix] 40 mg PO DAILY #30 tab 03/21/17 11/13/17 Rx Cyanocobalamin [Vitamin B-12] 500 mcg PO MOWEFR 11/12/17 11/13/17 History Insulin Aspart [NovoLOG Flexpen] See Protocol SQ AC-TID PRN 11/12/17 11/13/17 History Polyethylene Glycol 3350 [Miralax] 17 gm PO DAILY 11/12/17 11/13/17 History Budesonide-Formot 160-4.5 Mcg 2 puff INHALATION BID 11/13/17 11/13/17 History [Symbicort 160-4.5 Mcg Inhaler] Furosemide [Lasix] 40 mg PO BID@0900,1600 #60 tab 11/15/17 Rx Lisinopril [Zestril] 5 mg PO DAILY #30 tab 11/15/17 Rx amLODIPine [Norvasc] 10 mg PO DAILY #30 tab 11/15/17 Rx Allergies Allergy/AdvReac Type Severity Reaction Status Date / Time Penicillins Allergy Unknown Rash/Hives Verified 11/25/17 01:13 atorvastatin calcium Allergy Unknown Verified 11/25/17 01:13 [From Lipitor] clonazepam [From Klonopin] Allergy Hallucinati Verified 11/25/17 01:13 ons codeine Allergy Hallucinati Verified 11/25/17 01:13 ons haloperidol [From Haldol] Allergy Hallucinati Verified 11/25/17 01:13 ons haloperidol lactate Allergy Hallucinati Verified 11/25/17 01:13 [From Haldol] ons hydromorphone HCl Allergy Hallucinati Verified 11/25/17 01:13 [From Dilaudid] ons methylphenidate HCl Allergy Hallucinati Verified 11/25/17 01:13 [From Ritalin] ons morphine Allergy Hallucinati Verified 11/25/17 01:13 ons propofol Allergy Hallucinati Verified 11/25/17 01:13 ons quetiapine fumarate Allergy Hallucinati Verified 11/25/17 01:13 [From Seroquel] ons Sulfa (Sulfonamide Allergy Unknown Verified 11/25/17 01:13 Antibiotics) vancomycin Allergy Unknown Verified 11/25/17 01:13 ativan AdvReac Unknown Uncoded 11/25/17 01:13 Physical Exam Vitals: Vital Signs Temp Pulse Pulse Resp BP BP Pulse Ox 11/25/17 06:32 98.2 F 66 18 123/57 95 11/25/17 04:12 97.4 F L 65 20 147/65 98 11/25/17 03:32 61 20 150/71 96 11/25/17 01:10 98.3 F 66 16 142/68 93 L Intake and Output 11/24/17 11/25/17 11/25/17 22:59 06:59 14:59 Other: # Voids 1 # Bowel Movements 1 Weight 111.13 kg GENERAL: Well-appearing, well-nourished and in no acute distress. HEAD: Atraumatic, normocephalic. EYES: Pupils equal round and reactive to light, extraocular movements intact, sclera anicteric, conjunctiva are normal. ENT:nares patent, oropharynx clear without exudates. Moist mucous membranes. NECK: Normal range of motion, supple without lymphadenopathy or JVD, no thyromegaly LUNGS: Breath sounds clear to auscultation bilaterally and equal. No wheezes or rhonchi., Normal fine crackles noted today. HEART: Regular rate and rhythm without murmurs, rubs or gallops.S1S2 Normal ABDOMEN: Soft, nontender, normoactive bowel sounds. No guarding, no rebound. No masses appreciated. EXTREMITIES: Normal range of motion, S1 pedal edema noted. No clubbing or cyanosis. Right great toe pedal surface ulcers callused. NEUROLOGICAL: Cranial nerves II through XII grossly intact. Normal speech, normal gait. PSYCH: Normal mood, normal affect. SKIN: Warm, Dry, normal turgor, no rashes or lesions noted. Results CBC & Chem 7: 11/25/17 01:11 11/25/17 01:11 Labs: Abnormal Lab Results - Last 24 Hours (Table) 11/25/17 11/25/17 11/25/17 Range/Units 01:11 01:11 01:11 WBC 13.9 H (3.8-10.6) k/uL RBC 3.91 L (4.30-5.90) m/uL Hgb 7.6 L (13.0-17.5) gm/dL Hct 26.3 L (39.0-53.0) % MCV 67.2 L (80.0-100.0) fL MCH 19.5 L (25.0-35.0) pg MCHC 29.0 L (31.0-37.0) g/dL RDW 20.6 H (11.5-15.5) % Neutrophils # (Manual) 11.12 H (1.3-7.7) k/uL Nucleated RBCs 3 H (0-0) /100 WBC INR (<1.2) Sodium 134 L (137-145) mmol/L Chloride 97 L (98-107) mmol/L BUN 29 H (9-20) mg/dL Glucose 31 L* (74-99) mg/dL POC Glucose (mg/dL) (75-99) mg/dL CK-MB (CK-2) 7.9 H* (0.0-2.4) ng/mL Urine Protein (Negative) Urine Glucose (UA) (Negative) 11/25/17 11/25/17 11/25/17 Range/Units 01:11 01:28 02:11 WBC (3.8-10.6) k/uL RBC (4.30-5.90) m/uL Hgb (13.0-17.5) gm/dL Hct (39.0-53.0) % MCV (80.0-100.0) fL MCH (25.0-35.0) pg MCHC (31.0-37.0) g/dL RDW (11.5-15.5) % Neutrophils # (Manual) (1.3-7.7) k/uL Nucleated RBCs (0-0) /100 WBC INR 1.2 H (<1.2) Sodium (137-145) mmol/L Chloride (98-107) mmol/L BUN (9-20) mg/dL Glucose (74-99) mg/dL POC Glucose (mg/dL) 40 L 58 L (75-99) mg/dL CK-MB (CK-2) (0.0-2.4) ng/mL Urine Protein (Negative) Urine Glucose (UA) (Negative) 11/25/17 11/25/17 11/25/17 Range/Units 02:38 04:07 04:41 WBC (3.8-10.6) k/uL RBC (4.30-5.90) m/uL Hgb (13.0-17.5) gm/dL Hct (39.0-53.0) % MCV (80.0-100.0) fL MCH (25.0-35.0) pg MCHC (31.0-37.0) g/dL RDW (11.5-15.5) % Neutrophils # (Manual) (1.3-7.7) k/uL Nucleated RBCs (0-0) /100 WBC INR (<1.2) Sodium (137-145) mmol/L Chloride (98-107) mmol/L BUN (9-20) mg/dL Glucose (74-99) mg/dL POC Glucose (mg/dL) 108 H 100 H (75-99) mg/dL CK-MB (CK-2) (0.0-2.4) ng/mL Urine Protein Trace H (Negative) Urine Glucose (UA) 3+ H (Negative) 11/25/17 11/25/17 Range/Units 06:02 08:41 WBC (3.8-10.6) k/uL RBC (4.30-5.90) m/uL Hgb (13.0-17.5) gm/dL Hct (39.0-53.0) % MCV (80.0-100.0) fL MCH (25.0-35.0) pg MCHC (31.0-37.0) g/dL RDW (11.5-15.5) % Neutrophils # (Manual) (1.3-7.7) k/uL Nucleated RBCs (0-0) /100 WBC INR (<1.2) Sodium (137-145) mmol/L Chloride (98-107) mmol/L BUN (9-20) mg/dL Glucose (74-99) mg/dL POC Glucose (mg/dL) 106 H 116 H (75-99) mg/dL CK-MB (CK-2) (0.0-2.4) ng/mL Urine Protein (Negative) Urine Glucose (UA) (Negative) Thrombosis Risk Factor Assmnt - DVT/VTE Prophylaxis DVT/VTE Prophylaxis: Mechanical Prophylaxis ordered - Choose All That Apply Any of the Below Risk Factors Present?: Yes Each Factor Represents 1 point: Abnormal pulmonary function (COPD), Obesity ( BMI >25) Other Risk Factors: Yes Each Risk Factor Represents 3 Points: Age 75 years or older Other congenital or acquired thrombophilia - If yes, enter type in comment: No Thrombosis Risk Factor Assessment Total Risk Factor Score: 5 Thrombosis Risk Factor Assessment Level: High Risk Assessment and Plan (1) Hypoglycemia Current Visit: Yes Status: Acute Code(s): E16.2 - HYPOGLYCEMIA, UNSPECIFIED SNOMED Code(s): 308139945 (2) Anemia Current Visit: No Status: Acute Code(s): D64.9 - ANEMIA, UNSPECIFIED SNOMED Code(s): 191549038 (3) Atrial fibrillation Current Visit: No Status: Acute Code(s): I48.91 - UNSPECIFIED ATRIAL FIBRILLATION SNOMED Code(s): 68061109 (4) CHF (congestive heart failure) Current Visit: No Status: Acute Code(s): I50.9 - HEART FAILURE, UNSPECIFIED SNOMED Code(s): 79469267 (5) Diabetes mellitus Current Visit: No Status: Acute Code(s): E11.9 - TYPE 2 DIABETES MELLITUS WITHOUT COMPLICATIONS SNOMED Code(s): 96826227 (6) Diabetic foot ulcer Current Visit: No Status: Acute Code(s): E11.621 - TYPE 2 DIABETES MELLITUS WITH FOOT ULCER; L97.509 - NON-PRESSURE CHRONIC ULCER OTH PRT UNSP FOOT W UNSP SEVERITY SNOMED Code(s): 567020175 (7) GI bleed Current Visit: No Status: Acute Code(s): K92.2 - GASTROINTESTINAL HEMORRHAGE , UNSPECIFIED SNOMED Code(s): 20171300 (8) Weakness Current Visit: No Status: Acute Code(s): R53.1 - WEAKNESS SNOMED Code(s): 70384476 Plan: We'll consult cardiology and for his congestive heart failure and reconsult GI for possible EGD and colonoscopy while he is inpatient. I will transfuse him 1 unit of packed red blood cells this time. We'll recheck a CBC in 12 hours and labs in the a.m. Reorder his home medications with the exception of anticoagulants. He is currently on Lovenox ordered from the emergency room. We 'll order SCDs and Jobst hose at this time.. He'll be reevaluated next 24 hours
[2017-11-25 09:51] LABS: Anisocytosis Moderate; HCT 27.1 % (39.0-53.0); HGB 7.6 gm/dL (13.0-17.5); Hypochromasia Marked; MCH 19.7 pg (25.0-35.0); MCHC 28.1 g/dL (31.0-37.0); Mean Platelet Volume 7.6; Microcytosis Marked; Platelet Count 441 k/uL (150-450); Poikilocytosis Marked; RBC 3.87 m/uL (4.30-5.90)
[2017-11-25 09:55] LABS: Glucose,Whole Blood 239 mg/dL (75-99)
[2017-11-25] MEDS: ISOSORBIDE MONONITRATE ER 30 MG TAB.ER.24H PO SCH (10:59)
[2017-11-25] MEDS: amLODIPine 10 MG TAB PO SCH (10:59)
[2017-11-25 11:18] LABS: Band Neutrophils % 1 %; Neutrophils % (M) 93 %; Nucleated Red Blood Cells 6 /100 WBC (0-0); Total Cells Counted 200
[2017-11-25 11:19] LABS: Basophils # (M) 0.15 k/uL (0-0.2); Crenated RBC Present; Eosinophils # (M) 0.15 k/uL (0-0.7); Lymphocytes # (M) 0.59 k/uL (1.0-4.8); Monocytes # (M) 0.29 k/uL (0-1.0); RBC Fragments Present; Target Cells Present; WBC 14.7 k/uL (3.8-10.6)
[2017-11-25 11:20] LABS: Howell-Jolly Bodies Present; Spherocytes Present
[2017-11-25] MEDS: ALBUTEROL NEBULIZED 2.5 MG/3 ML INHALATION PRN ×3 (11:33→18:53)
[2017-11-25 12:24] LABS: Glucose,Whole Blood 292 mg/dL (75-99)
--- NOTE | 2017-11-25 13:26 | P.CRDCN ---
History of Present Illness Consult date: 11/25/17 Chief complaint: shortness of breath History of present illness: this is a pleasant 82-year-old gentleman with a past medical history significant for coronary artery disease and status post CABG, paroxysmal atrial fibrillation, diabetes, hypertension, and dyslipidemia was admitted to the hospital with a change in mental status. The patient was diagnosed with hypoglycemia. As a matter of fact he did not feel right at home when he took an extra insulin and developed hypoglycemia where he was brought to the emergency room. Currently he is feeling better. His mentation is back to normal. We get involved in his care because of shortness of breath. The patient does have chronic exertional dyspnea and according to him the exertional dyspnea is unchanged compared to before. He denies having any orthopnea and as a matter of fact he stated that once he laid flat in bed he goes to sleep very quickly. He denies having any chest pain or chest discomfort, dizziness or lightheadedness, or loss of consciousness or syncope. He states that yesterday he developed mild bilateral lower extremities edema but it has improved. When he presented to the hospital he was severe be anemic with a hemoglobin around 7. At that point the patient was received one unit of packed RBC. The EKG showed T-wave inversion in the anteroseptal leads, is a changes seems to bethe same as before. He underwent an echocardiogram in May 2017 and that revealed impaired LV function with EF around 45% without any significant valvular abnormalities. The patient was seen in the hospital back in October 2017 because of chest discomfort and mildly abnormal cardiac enzymes and also he was severely anemic at that point and maximize medical treatment was recommended. Also for the same reason it was felt that the patient was not a candidate to receive oral anticoagulation because of his anemia. Past Medical History Past Medical History: Coronary Artery Disease (CAD), Cancer, Heart Failure, COPD , CVA/TIA, Diabetes Mellitus, Eye Disorder, Hyperlipidemia, Hypertension, Myocardial Infarction ([place]), Osteoarthritis ([place]), Prostate Disorder, Sleep Apnea/ CPAP/BIPAP Additional Past Medical History / Comment(s): 2013 L renal cancer with surgery- partial nephrectomy/spleenectomy/distal portion of pancreas removed at [facility], IDDM type II, TIA, [place] unknown date, BPH, gastritis, small hiatal hernia, past discitis T9-T10, arthritis bilateral hands/back, TARIQ-does not tolerate his CPAP, past R great toe ulcer/infection, bilateral laser eye surgery for "alittle leakage". Last Myocardial Infarction Date:: UNKNOWN History of Any Multi-Drug Resistant Organisms: MRSA Date of last positivie culture/infection: 11/13/17 MDRO Source:: TOE Past Surgical History: Coronary Bypass/CABG, Heart Catheterization Additional Past Surgical History / Comment(s): partial L nephrectomy, distal pancreatectomy, splenectomy-at 2000 CABG-3 vessel, EGD, colonoscopy, deviated septum surgery, skin/oral lesion removals, R carpal tunnel release, bilateral cataract removal, bilateral laser eye surgery for "leakage" Past Anesthesia/Blood Transfusion Reactions: Previous Problems w/ Anesthesia Additional Past Anesthesia/Blood Transfusion Reaction / Comment(s): 'TROUBLE COMING OUT OF ANESTESIA' - DELUSIONAL. Pt has received blood in past without reaction. Past Psychological History: Anxiety, Depression Additional Psychological History / Comment(s): Pt resides with his spouse. He uses a cane or walker to ambulate. He no longer drives. His spouse drives and manages his medications. Smoking Status: Never smoker Past Alcohol Use History: None Reported Past Drug Use History: None Reported - Past Family History Father Family Medical History: Myocardial Infarction ([place]) Mother Family Medical History: COPD Medications and Allergies Home Medications Medication Instructions Recorded Confirmed Type Insulin Detemir [Levemir Flextouch] 60 units SQ HS 12/21/14 11/25/17 History Montelukast [Singulair] 10 mg PO HS 12/21/14 11/25/17 History Insulin Aspart [NovoLOG Flexpen] 17 units SQ AC-TID 02/07/16 11/25/17 History Isosorbide Mononitrate ER [Imdur] 30 mg PO DAILY 02/07/16 11/25/17 History Magnesium Oxide [Mag-Ox] 250 mg PO DAILY 02/07/16 11/25/17 History Pravastatin Sodium 40 mg PO HS 02/07/16 11/25/17 History Zinc 50 mg PO DAILY 02/07/16 11/25/17 History Albuterol Nebulized [Ventolin 2.5 mg INHALATION RT-TID PRN 04/02/16 11/25/17 History Nebulized] Potassium Chloride ER [K-Dur 20] 20 meq PO BID 04/02/16 11/25/17 History [place]-3 Fatty Acids/Fish Oil [Fish 1 cap PO DAILY 08/13/16 11/25/17 History Oil 1,000 mg Softgel] Acetaminophen Tab [Tylenol] 500 - 1,000 mg PO Q6HR PRN 03/17/17 11/25/17 History Escitalopram [Lexapro] 20 mg PO DAILY 03/17/17 11/25/17 History Pantoprazole [Protonix] 40 mg PO DAILY #30 tab 03/21/17 11/25/17 Rx Cyanocobalamin [Vitamin B-12] 500 mcg PO MOWEFR 11/12/17 11/25/17 History Insulin Aspart [NovoLOG Flexpen] See Protocol SQ AC-TID PRN 11/12/17 11/25/17 History Polyethylene Glycol 3350 [Miralax] 17 gm PO DAILY 11/12/17 11/25/17 History Budesonide-Formot 160-4.5 Mcg 2 puff INHALATION RT-BID 11/13/17 11/25/17 History [Symbicort 160-4.5 Mcg Inhaler] Furosemide [Lasix] 40 mg PO BID@0900,1600 #60 tab 11/15/17 11/25/17 Rx Lisinopril [Zestril] 5 mg PO DAILY #30 tab 11/15/17 11/25/17 Rx amLODIPine [Norvasc] 10 mg PO DAILY #30 tab 11/15/17 11/25/17 Rx Allergies Allergy/AdvReac Type Severity Reaction Status Date / Time Penicillins Allergy Unknown Rash/Hives Verified 11/25/17 10:59 atorvastatin calcium Allergy Unknown Verified 11/25/17 10:59 [From Lipitor] clonazepam [From Klonopin] Allergy Hallucinati Verified 11/25/17 10:59 ons codeine Allergy Hallucinati Verified 11/25/17 10:59 ons haloperidol [From Haldol] Allergy Hallucinati Verified 11/25/17 10:59 ons haloperidol lactate Allergy Hallucinati Verified 11/25/17 10:59 [From Haldol] ons hydromorphone HCl Allergy Hallucinati Verified 11/25/17 10:59 [From Dilaudid] ons methylphenidate HCl Allergy Hallucinati Verified 11/25/17 10:59 [From Ritalin] ons morphine Allergy Hallucinati Verified 11/25/17 10:59 ons propofol Allergy Hallucinati Verified 11/25/17 10:59 ons quetiapine fumarate Allergy Hallucinati Verified 11/25/17 10:59 [From Seroquel] ons Sulfa (Sulfonamide Allergy Unknown Verified 11/25/17 10:59 Antibiotics) vancomycin Allergy Unknown Verified 11/25/17 10:59 ativan AdvReac Unknown Uncoded 11/25/17 01:13 Physical Exam Vitals: Vital Signs Temp Pulse Pulse Resp BP BP Pulse Ox 11/25/17 12:31 97.5 F L 64 18 128/65 96 11/25/17 12:01 97.5 F L 97 18 150/69 95 11/25/17 11:51 98 F 68 19 141/72 95 11/25/17 11:46 96 11/25/17 11:34 86 94 L 11/25/17 06:32 98.2 F 66 18 123/57 95 11/25/17 04:12 97.4 F L 65 20 147/65 98 11/25/17 03:32 61 20 150/71 96 11/25/17 01:10 98.3 F 66 16 142/68 93 L Intake and Output 11/24/17 11/25/17 11/25/17 22:59 06:59 14:59 Intake Total 0 Balance 0 Intake: Blood Product 0 Rc Pheresis 2 As3 Unit 0 [id number] Other: # Voids 1 # Bowel Movements 1 Weight 111.13 kg - Constitutional General appearance: no acute distress - Respiratory Respiratory: bilateral: diminished - Cardiovascular Heart sounds: normal: S1, S2 Abnormal Heart Sounds: systolic murmur Results 11/25/17 09:24 11/25/17 01:11 Cardiac Enzymes 11/25/17 11/25/17 Range/Units 01:11 01:11 AST 33 (17-59) U/L CK-MB (CK-2) 7.9 H* (0.0-2.4) ng/mL Troponin I 0.019 (0.000-0.034) ng/mL Coagulation 11/25/17 Range/Units 01:11 PT 11.7 (9.0-12.0) sec APTT 25.6 (22.0-30.0) sec CBC 11/25/17 11/25/17 Range/Units 01:11 09:24 WBC 13.9 H 14.7 H (3.8-10.6) k/uL RBC 3.91 L 3.87 L (4.30-5.90) m/uL Hgb 7.6 L 7.6 L (13.0-17.5) gm/dL Hct 26.3 L 27.1 L (39.0-53.0) % Plt Count 444 441 (150-450) k/uL Comprehensive Metabolic Panel 11/25/17 Range/Units 01:11 Sodium 134 L (137-145) mmol/L Potassium 4.5 (3.5-5.1) mmol/L Chloride 97 L (98-107) mmol/L Carbon Dioxide 24 (22-30) mmol/L BUN 29 H (9-20) mg/dL Creatinine 1.00 (0.66-1.25) mg/dL Glucose 31 L* (74-99) mg/dL Calcium 9.0 (8.4-10.2) mg/dL AST 33 (17-59) U/L ALT 42 (21-72) U/L Alkaline Phosphatase 75 (38-126) U/L Total Protein 6.3 (6.3-8.2) g/dL Albumin 3.8 (3.5-5.0) g/dL Current Medications Generic Name Dose Route Start Last Admin Trade Name Freq PRN Reason Stop Dose Admin Albuterol Sulfate 2.5 mg 11/25/17 09:31 11/25/17 11:33 Ventolin Nebulized INHALATION 2.5 mg RT-TID PRN Administration Shortness Of Breath Amlodipine Besylate 10 mg 11/25/17 09:45 11/25/17 10:59 Norvasc PO 10 mg DAILY [facility] Administration Budesonide/Formoterol Fumarate 2 puff 11/25/17 20:00 Symbicort 160-4.5 Mcg Inhaler INHALATION RT-BID [facility] Cyanocobalamin 500 mcg 11/27/17 09:00 Vitamin B-12 PO MOWEFR [facility] Enoxaparin Sodium 40 mg 11/25/17 09:00 11/25/17 04:09 Lovenox SQ 40 mg DAILY [facility] Administration Furosemide 40 mg 11/25/17 16:00 Lasix PO BID@0900,1600 [facility] Dextrose/Sodium Chloride 1,000 mls @ 83 mls/hr 11/25/17 02:17 11/25/17 02:38 Dextrose 5%-1/2ns Iv Soln IV 11/25/17 14:19 83 mls/hr .Q12H3M ONE Administration Isosorbide Mononitrate 30 mg 11/25/17 09:45 11/25/17 10:59 Imdur PO 30 mg DAILY [facility] Administration Lisinopril 5 mg 11/26/17 09:00 Zestril PO DAILY [facility] Magnesium Oxide 400 mg 11/26/17 09:00 Mag-Ox PO DAILY [facility] Montelukast Sodium 10 mg 11/25/17 21:00 Singulair PO HS [facility] Pantoprazole Sodium 40 mg 11/26/17 07:30 Protonix PO AC-BRKFST [facility] Polyethylene Glycol 17 gm 11/26/17 09:00 Miralax PO DAILY [facility] Potassium Chloride 40 meq 11/26/17 09:00 K-Dur 20 PO DAILY [facility] Pravastatin Sodium 40 mg 11/25/17 21:00 Pravachol PO HS [facility] Intake and Output 11/24/17 11/25/17 11/25/17 22:59 06:59 14:59 Intake Total 0 Balance 0 Intake: Blood Product 0 Rc Pheresis 2 As3 Unit 0 [id number] Other: # Voids 1 # Bowel Movements 1 Weight 111.13 kg 11/25/17 09:24 11/25/17 01:11 Assessment and Plan Assessment: assessment #1 change in mental status which has improved. The patient was diagnosed with hypoglycemia #2 chronic exertional dyspnea does not seems worse compared to before. No orthopnea, and no PND. No bilateral lower extremities edema. #3 anemia likely to be blood loss anemia. The patient is in process to be seen by the GI service #3 known coronary artery disease and status post coronary artery that was grafting #4 paroxysmal atrial fibrillation #5 mildly impaired LV function on previous echocardiogram from May 2017 #6 multiple comorbid conditions Plan #1 I do feel be shortness of breath is multifactorial and predominantly related to anemia with a hemoglobin around 7. #2 the patient does not seems to be in any overt congestive heart failure at this point. He seems to be euvolemic. He does not seems to be having orthopnea nor bilateral lower extremities edema #3 I am going to obtain a BNP and also repeat the echocardiogram as well. #4 I would continue the patient on the current dose of Lasix by mouth. #5 I would continue the current medical regimen. The blood pressure and heart rate seems to be well-controlled #6 the patient is not a candidate to receive any anticoagulation at this point for possible GI bleed. #7 will follow-up with his serial cardiac enzymes as well. Thank you for allowing us but spitting his care and we will continue following up with him
--- NOTE | 2017-11-25 15:14 | ECHOF ---
Referral Reason:chf MEASUREMENTS -------- HEIGHT: 177.8 cm WEIGHT: 111.1 kg BP: 128/65 IVSd: 1.3 cm (0.6 - 1.1) LVIDd: 5.0 cm (3.9 - 5.3) LVPWd: 1.4 cm (0.6 - 1.1) IVSs: 1.8 cm LVIDs: 3.8 cm LVPWs: 1.7 cm LAESV Index (A-L): 38.14 ml/m Ao Diam: 2.4 cm (2.0 - 3.7) AV Cusp: 1.2 cm (1.5 - 2.6) MV E Osito: 1.62 m/s MV DecT: 337 ms MV A Osito: 0.57 m/s MV E/A Ratio: 2.83 RAP: 15.00 mmHg RVSP: 89.09 mmHg FINDINGS -------- Atrial fibrillation. This was a technically difficult study with suboptimal views. The left ventricular size is normal. There is mild concentric left ventricular hypertrophy. There is mild global hypokinesis of LV . Overall left ventricular systolic function is mildly impaired w ith, an EF between 45 - 50 %. The right ventricle is mildly enlarged. LA is moderately dilated 34-39 ml/m2 RA appears enlarged. Unable to use Lumason due to blood transfusion. There is mild to moderate aortic valve sclerosis. Trace amount of aortic regurgitation. There is no evidence of aortic stenosis. The mitral valve leaflets are mildly thickened. Moderate mitral regurgitation is present. Moderate tricuspid regurgitation present. There is severe pulmonary hypertension. The right ventr icular systolic pressure, as measured by Doppler, is 89.09mmHg. The pulmonic valve was not well visualized. The aortic root size is normal. The inferior vena cava is dilated with no significant inspiratory collapse which is consistent estima kirsten right atrial pressure of >20 mmHg. There is no pericardial effusion. CONCLUSIONS -------- 1. Atrial fibrillation. 2. This was a technically difficult study with suboptimal views. 3. The left ventricular size is normal. 4. There is mild concentric left ventricular hypertrophy. 5. There is mild global hypokinesis of LV . 6. Overall left ventricular systolic function is mildly impaired with, an EF between 45 - 50 %. 7. The right ventricle is mildly enlarged. 8. LA is moderately dilated 34-39 ml/m2 9. RA appears enlarged. 10. Unable to use Lumason due to blood transfusion. 11. There is mild to moderate aortic valve sclerosis. 12. Trace amount of aortic regurgitation. 13. The mitral valve leaflets are mildly thickened. 14. Moderate mitral regurgitation is present. 15. Moderate tricuspid regurgitation present. 16. There is severe pulmonary hypertension. 17. The right ventricular systolic pressure, as measured by Doppler, is 89.09mmHg. 18. The pulmonic valve was not well visualized. 19. The aortic root size is normal. 20. The inferior vena cava is dilated with no significant inspiratory collapse which is consistent es timated right atrial pressure of >20 mmHg. 21. There is no pericardial effusion. VP CUSTOMER SERVICE: Ranulfo Saeed RDCS
--- NOTE | 2017-11-25 15:53 | XR ---
EXAMINATION TYPE: XR chest 2V DATE OF EXAM: 11/25/2017 COMPARISON: 11/12/2017. HISTORY: Congestive heart failure. Shortness of breath. TECHNIQUE: Frontal and lateral views of the chest are obtained. FINDINGS: There is new interstitial edema in comparison to the prior exam most exaggerated on the la teral image. Chronic right hemidiaphragm elevation is noted. Cardiomediastinal silhouette is enlarged . Median sternotomy wires from prior CABG are present. No sizable pleural effusion or pneumothorax. M ild multilevel degenerative changes of the thoracic spine. IMPRESSION: Interstitial edema on the basis of congestive heart failure.
[2017-11-25 17:29] LABS: Glucose,Whole Blood 420 mg/dL (75-99)
[2017-11-25] MEDS: INSULIN ASPART 100 UNIT/ML 1 ML 10 ML VIAL SQ SCH ×3 (17:29→21:06)
[2017-11-25] MEDS: FUROSEMIDE 40 MG TAB PO SCH (17:29)
[2017-11-25] MEDS: SYMBICORT 160-4.5 MCG INHALER INHALATION SCH (18:53)
[2017-11-25 21:03] LABS: Glucose,Whole Blood 284 mg/dL (75-99)
[2017-11-25] MEDS: MONTELUKAST 10 MG TAB PO SCH (21:06)
[2017-11-25] MEDS: PRAVASTATIN SODIUM 40 MG TAB PO SCH (21:06)
[2017-11-25 23:23] LABS: Hemoglobin A1C 8.8 % (4.0-6.0)
[2017-11-26 02:05] LABS: Glucose,Whole Blood 178 mg/dL (75-99)
[2017-11-26 07:25] LABS: Glucose,Whole Blood 262 mg/dL (75-99)
[2017-11-26] MEDS: ALBUTEROL NEBULIZED 2.5 MG/3 ML INHALATION PRN ×2 (07:31→13:37)
[2017-11-26] MEDS: SYMBICORT 160-4.5 MCG INHALER INHALATION SCH (07:31)
[2017-11-26 07:38] LABS: Calcium 8.9 mg/dL (8.4-10.2); Magnesium 2.1 mg/dL (1.6-2.3); Potassium 4.6 mmol/L (3.5-5.1)
[2017-11-26 07:46] LABS: Anisocytosis Moderate; HCT 29.1 % (39.0-53.0); HGB 8.4 gm/dL (13.0-17.5); Hypochromasia Marked; MCH 20.4 pg (25.0-35.0); MCHC 28.7 g/dL (31.0-37.0); MCV 70.9 fL (80.0-100.0); Mean Platelet Volume 7.1; Microcytosis Marked; Platelet Count 510 k/uL (150-450); Poikilocytosis Marked; RBC 4.11 m/uL (4.30-5.90); RDW 20.9 % (11.5-15.5)
[2017-11-26] MEDS: INSULIN ASPART 100 UNIT/ML 1 ML 10 ML VIAL SQ SCH ×7 (07:59→21:02)
[2017-11-26] MEDS: PANTOPRAZOLE 40 MG TABLET PO SCH (08:00)
[2017-11-26] MEDS: ISOSORBIDE MONONITRATE ER 30 MG TAB.ER.24H PO SCH (08:01)
[2017-11-26] MEDS: LISINOPRIL 5 MG TAB PO SCH (08:01)
[2017-11-26] MEDS: MAGNESIUM OXIDE 400 MG TAB PO SCH (08:01)
[2017-11-26] MEDS: ENOXAPARIN 40 MG/0.4 ML SYRINGE SQ SCH (08:01)
[2017-11-26] MEDS: POLYETHYLENE GLYCOL 3350 17 GM POWD.PACK PO SCH (08:01)
[2017-11-26] MEDS: FUROSEMIDE 40 MG TAB PO SCH ×2 (08:01→17:24)
[2017-11-26] MEDS: POTASSIUM CHLORIDE ER 20 MEQ TAB.ER PO SCH (08:01)
[2017-11-26] MEDS: amLODIPine 10 MG TAB PO SCH (08:01)
--- NOTE | 2017-11-26 09:08 | P.CONS ---
History of Present Illness - Reason for Consult Consult date: 11/25/17 GI bleeding - History of Present Illness The patient is an 82-year-old male who was admitted through the emergency room where he was brought because of mental changes which was attributed to hypoglycemia. The patient was found to have a hemoglobin of 7.6 and has received 1 unit of packed cells. We're asked to see him for his anemia for possible GI bleeding and consideration of upper and lower endoscopy. The patient has history of coronary atherosclerotic heart disease with prior CABG, COPD, obstructive sleep apnea and renal cancer. 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 I have performed an upper endoscopy in February 2017 for evaluation of symptomatic anemia and Hemoccult-positive stools and that showed small sliding hiatal hernia with no obvious ulcers or complicated reflux disease. His last colonoscopy was with Dr. Milan in 2012. The patient denied dysphagia or odynophagia, hematemesis or hematochezia. No abdominal pains or change in bowel habits. Has been having shortness of breath but no new cardiopulmonary symptoms. Admission hemoglobin 7.6. MCV 67. Platelets 444. Iron indices last February ferritin 24. Iron 14. Iron saturation 8.4%. Review of Systems Constitutional: Denied fever, chills or unintentional weight loss Neurologic: No headaches, double vision or other sensory or motor changes Cardiopulmonary: No chest pains, shortness of breath or palpitations Gastrointestinal: See present illness above Genitourinary: No hematuria, dysuria or frequency Musculoskeletal:No joint swelling or pain Skin: No rashes Hematologic: No bleeding tendency Psychiatric: No anxiety or depression Past Medical History Past Medical History: Coronary Artery Disease (CAD), Cancer, Heart Failure, COPD , CVA/TIA, Diabetes Mellitus, Eye Disorder, Hyperlipidemia, Hypertension, Myocardial Infarction ([place]), Osteoarthritis (OA), Prostate Disorder, Sleep Apnea/ CPAP/BIPAP Additional Past Medical History / Comment(s): 2013 renal cancer with surgery- partial nephrectomy/spleenectomy/distal portion of pancreas removed at [facility], IDDM type II, TIA, [place] unknown date, BPH, gastritis, small hiatal hernia, past discitis T9-T10, arthritis bilateral hands/back, TARIQ-does not tolerate his CPAP, past R great toe ulcer/infection, bilateral laser eye surgery for "alittle leakage". Last Myocardial Infarction Date:: UNKNOWN History of Any Multi-Drug Resistant Organisms: MRSA Year Discovered:: 11/13/17 MDRO Source:: TOE Past Surgical History: Coronary Bypass/CABG, Heart Catheterization Additional Past Surgical History / Comment(s): partial L nephrectomy, distal pancreatectomy, splenectomy-at 2000 CABG-3 vessel, EGD, colonoscopy, deviated septum surgery, skin/oral lesion removals, R carpal tunnel release, bilateral cataract removal, bilateral laser eye surgery for "leakage" Past Anesthesia/Blood Transfusion Reactions: Previous Problems w/ Anesthesia Additional Past Anesthesia/Blood Transfusion Reaction / Comm: 'TROUBLE COMING OUT OF ANESTESIA' - DELUSIONAL. Pt has received blood in past without reaction. Past Psychological History: Anxiety, Depression Additional Psychological History / Comment(s): Pt resides with his spouse. He uses a cane or walker to ambulate. He no longer drives. His spouse drives and manages his medications. Smoking Status: Never smoker Past Alcohol Use History: None Reported Past Drug Use History: None Reported - Past Family History Father Family Medical History: Myocardial Infarction ([place]) Mother Family Medical History: COPD Medications and Allergies Home Medications Medication Instructions Recorded Confirmed Type Insulin Detemir [Levemir Flextouch] 60 units SQ HS 12/21/14 11/25/17 History Montelukast [Singulair] 10 mg PO HS 12/21/14 11/25/17 History Insulin Aspart [NovoLOG Flexpen] 17 units SQ AC-TID 02/07/16 11/25/17 History Isosorbide Mononitrate ER [Imdur] 30 mg PO DAILY 02/07/16 11/25/17 History Magnesium Oxide [Mag-Ox] 250 mg PO DAILY 02/07/16 11/25/17 History Pravastatin Sodium 40 mg PO HS 02/07/16 11/25/17 History Zinc 50 mg PO DAILY 02/07/16 11/25/17 History Albuterol Nebulized [Ventolin 2.5 mg INHALATION RT-TID PRN 04/02/16 11/25/17 History Nebulized] Potassium Chloride ER [K-Dur 20] 20 meq PO BID 04/02/16 11/25/17 History [place]-3 Fatty Acids/Fish Oil [Fish 1 cap PO DAILY 08/13/16 11/25/17 History Oil 1,000 mg Softgel] Acetaminophen Tab [Tylenol] 500 - 1,000 mg PO Q6HR PRN 03/17/17 11/25/17 History Escitalopram [Lexapro] 20 mg PO DAILY 03/17/17 11/25/17 History Pantoprazole [Protonix] 40 mg PO DAILY #30 tab 03/21/17 11/25/17 Rx Cyanocobalamin [Vitamin B-12] 500 mcg PO MOWEFR 11/12/17 11/25/17 History Insulin Aspart [NovoLOG Flexpen] See Protocol SQ AC-TID PRN 11/12/17 11/25/17 History Polyethylene Glycol 3350 [Miralax] 17 gm PO DAILY 11/12/17 11/25/17 History Budesonide-Formot 160-4.5 Mcg 2 puff INHALATION RT-BID 11/13/17 11/25/17 History [Symbicort 160-4.5 Mcg Inhaler] Furosemide [Lasix] 40 mg PO BID@0900,1600 #60 tab 11/15/17 11/25/17 Rx Lisinopril [Zestril] 5 mg PO DAILY #30 tab 11/15/17 11/25/17 Rx amLODIPine [Norvasc] 10 mg PO DAILY #30 tab 11/15/17 11/25/17 Rx Allergies Allergy/AdvReac Type Severity Reaction Status Date / Time Penicillins Allergy Unknown Rash/Hives Verified 11/25/17 10:59 atorvastatin calcium Allergy Unknown Verified 11/25/17 10:59 [From Lipitor] clonazepam [From Klonopin] Allergy Hallucinati Verified 11/25/17 10:59 ons codeine Allergy Hallucinati Verified 11/25/17 10:59 ons haloperidol [From Haldol] Allergy Hallucinati Verified 11/25/17 10:59 ons haloperidol lactate Allergy Hallucinati Verified 11/25/17 10:59 [From Haldol] ons hydromorphone HCl Allergy Hallucinati Verified 11/25/17 10:59 [From Dilaudid] ons methylphenidate HCl Allergy Hallucinati Verified 11/25/17 10:59 [From Ritalin] ons morphine Allergy Hallucinati Verified 11/25/17 10:59 ons propofol Allergy Hallucinati Verified 11/25/17 10:59 ons quetiapine fumarate Allergy Hallucinati Verified 11/25/17 10:59 [From Seroquel] ons Sulfa (Sulfonamide Allergy Unknown Verified 11/25/17 10:59 Antibiotics) vancomycin Allergy Unknown Verified 11/25/17 10:59 ativan AdvReac Unknown Uncoded 11/25/17 01:13 Physical Exam Vitals: Vital Signs Temp Pulse Pulse Resp BP BP Pulse Ox 11/25/17 06:32 98.2 F 66 18 123/57 95 11/25/17 04:12 97.4 F L 65 20 147/65 98 11/25/17 03:32 61 20 150/71 96 11/25/17 01:10 98.3 F 66 16 142/68 93 L Intake and Output 11/24/17 11/25/17 11/25/17 22:59 06:59 14:59 Other: # Voids 1 # Bowel Movements 1 Weight 111.13 kg General: Appears stated age, very pleasant in no acute distress Head and neck: Normocephalic and atraumatic, conjunctivae pink and sclerae not icteric, mucous membranes moist and pink. No masses in the neck or tracheal shifts Lungs: Clear to auscultation with no dullness to percussion Heart: Irregular, no abnormal sounds, murmurs, gallops or friction Abdomen: Soft, no masses or organomegalies. No tenderness. Bowel sounds present Extremities: No clubbing, cyanosis or edema Neurologic: Alert and oriented 3. Cranial nerves grossly intact. No gross sensory or motor abnormalities Results CBC & Chem 7: 11/26/17 06:55 11/26/17 06:55 Labs: Abnormal Lab Results - Last 24 Hours (Table) 11/25/17 11/25/17 11/25/17 Range/Units 01:11 01:11 01:11 WBC 13.9 H (3.8-10.6) k/uL RBC 3.91 L (4.30-5.90) m/uL Hgb 7.6 L (13.0-17.5) gm/dL Hct 26.3 L (39.0-53.0) % MCV 67.2 L (80.0-100.0) fL MCH 19.5 L (25.0-35.0) pg MCHC 29.0 L (31.0-37.0) g/dL RDW 20.6 H (11.5-15.5) % Neutrophils # (Manual) 11.12 H (1.3-7.7) k/uL Nucleated RBCs 3 H (0-0) /100 WBC INR (<1.2) Sodium 134 L (137-145) mmol/L Chloride 97 L (98-107) mmol/L BUN 29 H (9-20) mg/dL Glucose 31 L* (74-99) mg/dL POC Glucose (mg/dL) (75-99) mg/dL CK-MB (CK-2) 7.9 H* (0.0-2.4) ng/mL Urine Protein (Negative) Urine Glucose (UA) (Negative) 11/25/17 11/25/17 11/25/17 Range/Units 01:11 01:28 02:11 WBC (3.8-10.6) k/uL RBC (4.30-5.90) m/uL Hgb (13.0-17.5) gm/dL Hct (39.0-53.0) % MCV (80.0-100.0) fL MCH (25.0-35.0) pg MCHC (31.0-37.0) g/dL RDW (11.5-15.5) % Neutrophils # (Manual) (1.3-7.7) k/uL Nucleated RBCs (0-0) /100 WBC INR 1.2 H (<1.2) Sodium (137-145) mmol/L Chloride (98-107) mmol/L BUN (9-20) mg/dL Glucose (74-99) mg/dL POC Glucose (mg/dL) 40 L 58 L (75-99) mg/dL CK-MB (CK-2) (0.0-2.4) ng/mL Urine Protein (Negative) Urine Glucose (UA) (Negative) 11/25/17 11/25/17 11/25/17 Range/Units 02:38 04:07 04:41 WBC (3.8-10.6) k/uL RBC (4.30-5.90) m/uL Hgb (13.0-17.5) gm/dL Hct (39.0-53.0) % MCV (80.0-100.0) fL MCH (25.0-35.0) pg MCHC (31.0-37.0) g/dL RDW (11.5-15.5) % Neutrophils # (Manual) (1.3-7.7) k/uL Nucleated RBCs (0-0) /100 WBC INR (<1.2) Sodium (137-145) mmol/L Chloride (98-107) mmol/L BUN (9-20) mg/dL Glucose (74-99) mg/dL POC Glucose (mg/dL) 108 H 100 H (75-99) mg/dL CK-MB (CK-2) (0.0-2.4) ng/mL Urine Protein Trace H (Negative) Urine Glucose (UA) 3+ H (Negative) 11/25/17 11/25/17 11/25/17 Range/Units 06:02 08:41 09:24 WBC 15.6 H (3.8-10.6) k/uL RBC 3.87 L (4.30-5.90) m/uL Hgb 7.6 L (13.0-17.5) gm/dL Hct 27.1 L (39.0-53.0) % MCV 70.0 L (80.0-100.0) fL MCH 19.7 L (25.0-35.0) pg MCHC 28.1 L (31.0-37.0) g/dL RDW 20.0 H (11.5-15.5) % Neutrophils # (Manual) (1.3-7.7) k/uL Nucleated RBCs (0-0) /100 WBC INR (<1.2) Sodium (137-145) mmol/L Chloride (98-107) mmol/L BUN (9-20) mg/dL Glucose (74-99) mg/dL POC Glucose (mg/dL) 106 H 116 H (75-99) mg/dL CK-MB (CK-2) (0.0-2.4) ng/mL Urine Protein (Negative) Urine Glucose (UA) (Negative) 11/25/17 Range/Units 09:53 WBC (3.8-10.6) k/uL RBC (4.30-5.90) m/uL Hgb (13.0-17.5) gm/dL Hct (39.0-53.0) % MCV (80.0-100.0) fL MCH (25.0-35.0) pg MCHC (31.0-37.0) g/dL RDW (11.5-15.5) % Neutrophils # (Manual) (1.3-7.7) k/uL Nucleated RBCs (0-0) /100 WBC INR (<1.2) Sodium (137-145) mmol/L Chloride (98-107) mmol/L BUN (9-20) mg/dL Glucose (74-99) mg/dL POC Glucose (mg/dL) 239 H (75-99) mg/dL CK-MB (CK-2) (0.0-2.4) ng/mL Urine Protein (Negative) Urine Glucose (UA) (Negative) Assessment and Plan Assessment: 82-year-old male with anemia and decreased MCV and possible GI bleeding. Previous workup included colonoscopy in 2013 and upper endoscopy in 2017. The patient is symptomatic of shortness of breath but is not having overt bleeding at this time. Plan: Agree with your current management. I would consider an upper endoscopy and colonoscopy this admission as soon as he is medically stable. I'll discuss with you and cardiology and follow with you with interest.
[2017-11-26 10:09] LABS: Eosinophils # (M) 0.16 k/uL (0-0.7); Lymphocytes # (M) 0.81 k/uL (1.0-4.8); Monocytes # (M) 0.64 k/uL (0-1.0); Neutrophils # (M) 14.65 k/uL (1.3-7.7); Neutrophils % (M) 91 %; Nucleated Red Blood Cells 5 /100 WBC (0-0); Total Cells Counted 200; WBC 16.1 k/uL (3.8-10.6)
[2017-11-26 10:10] LABS: RBC Fragments Present; Target Cells Present
[2017-11-26 10:12] LABS: Crenated RBC Present; Howell-Jolly Bodies Present; Spherocytes Present
[2017-11-26 12:02] LABS: Glucose,Whole Blood 322 mg/dL (75-99)
--- NOTE | 2017-11-26 12:59 | P.PN ---
Subjective Progress Note Date: 11/26/17 Principal diagnosis: Shortness of breath This is a pleasant 82-year-old gentleman with a past medical history significant for coronary artery disease and status post CABG, paroxysmal atrial fibrillation, diabetes, hypertension, and dyslipidemia was admitted to the hospital with a change in mental status. The patient was diagnosed with hypoglycemia. As a matter of fact he did not feel right at home when he took an extra insulin and developed hypoglycemia where he was brought to the emergency room. Currently he is feeling better. His mentation is back to normal. We get involved in his care because of shortness of breath. The patient does have chronic exertional dyspnea and according to him the exertional dyspnea is unchanged compared to before. He denies having any orthopnea and as a matter of fact he stated that once he laid flat in bed he goes to sleep very quickly. He denies having any chest pain or chest discomfort , dizziness or lightheadedness, or loss of consciousness or syncope. He states that yesterday he developed mild bilateral lower extremities edema but it has improved. When he presented to the hospital he was severe be anemic with a hemoglobin around 7. At that point the patient was received one unit of packed RBC. The EKG showed T-wave inversion in the anteroseptal leads, is a changes seems to bethe same as before. The echocardiogram during this admission revealed impaired LV function associated with moderate MR, moderate TR, and severe pulmonary hypertension with an RVSP of 98 mmHg. On follow-up with the patient today, he stated that he is feeling better internal shortness of breath. He was able to go to the bathroom and come back to his chair without any shortness of breath with no chest pain or chest discomfort. No bilateral lower extremities edema. The hemoglobin continues to be around 8 and the patient might receive one unit of packed RBC. Objective - Vital Signs Vital signs: Vital Signs Temp 97.9 F 11/26/17 06:00 Pulse 78 11/26/17 07:44 Resp 20 11/26/17 06:00 BP 149/66 11/26/17 06:00 Pulse Ox 94 L 11/26/17 06:00 Intake & Output 11/25/17 11/26/17 11/26/17 18:59 06:59 18:59 Intake Total 1410 1680 840 Output Total 1550 300 Balance 1410 130 540 Intake: Intake, IV Titration 840 Amount Dextrose 5%-0.45% NaCl 1, 840 000 ml @ 83 mls/hr IV . Q12H3M ONE Rx#:[id number] Oral 1100 1680 Blood Product 310 Rc Pheresis 2 As3 Unit 310 [id number] Output: Urine 1550 300 Other: Voiding Method Urinal # Voids 3 1 2 # Bowel Movements 1 1 1 - Constitutional General appearance: Present: no acute distress - Respiratory Respiratory: bilateral: CTA - Cardiovascular Heart sounds: normal: S1, S2 Abnormal Heart Sounds: Present: systolic murmur - Labs CBC & Chem 7: 11/26/17 06:55 11/26/17 06:55 Labs: Abnormal Lab Results - Last 24 Hours (Table) 11/25/17 11/25/17 11/25/17 Range/Units 09:24 17:25 20:54 WBC (3.8-10.6) k/uL RBC (4.30-5.90) m/uL Hgb (13.0-17.5) gm/dL Hct (39.0-53.0) % MCV (80.0-100.0) fL MCH (25.0-35.0) pg MCHC (31.0-37.0) g/dL RDW (11.5-15.5) % Plt Count (150-450) k/uL Neutrophils # (Manual) (1.3-7.7) k/uL Lymphocytes # (Manual) (1.0-4.8) k/uL Nucleated RBCs (0-0) /100 WBC Sodium (137-145) mmol/L Chloride (98-107) mmol/L BUN (9-20) mg/dL Glucose (74-99) mg/dL POC Glucose (mg/dL) 420 H 284 H (75-99) mg/dL Crossmatch See Detail 11/26/17 11/26/17 11/26/17 Range/Units 01:51 06:55 06:55 WBC 16.1 H (3.8-10.6) k/uL RBC 4.11 L (4.30-5.90) m/uL Hgb 8.4 L (13.0-17.5) gm/dL Hct 29.1 L (39.0-53.0) % MCV 70.9 L (80.0-100.0) fL MCH 20.4 L (25.0-35.0) pg MCHC 28.7 L (31.0-37.0) g/dL RDW 20.9 H (11.5-15.5) % Plt Count 510 H (150-450) k/uL Neutrophils # (Manual) 14.65 H (1.3-7.7) k/uL Lymphocytes # (Manual) 0.81 L (1.0-4.8) k/uL Nucleated RBCs 5 H (0-0) /100 WBC Sodium 134 L (137-145) mmol/L Chloride 97 L (98-107) mmol/L BUN 24 H (9-20) mg/dL Glucose 225 H (74-99) mg/dL POC Glucose (mg/dL) 178 H (75-99) mg/dL Crossmatch 11/26/17 11/26/17 Range/Units 07:13 11:58 WBC (3.8-10.6) k/uL RBC (4.30-5.90) m/uL Hgb (13.0-17.5) gm/dL Hct (39.0-53.0) % MCV (80.0-100.0) fL MCH (25.0-35.0) pg MCHC (31.0-37.0) g/dL RDW (11.5-15.5) % Plt Count (150-450) k/uL Neutrophils # (Manual) (1.3-7.7) k/uL Lymphocytes # (Manual) (1.0-4.8) k/uL Nucleated RBCs (0-0) /100 WBC Sodium (137-145) mmol/L Chloride (98-107) mmol/L BUN (9-20) mg/dL Glucose (74-99) mg/dL POC Glucose (mg/dL) 262 H 322 H (75-99) mg/dL Crossmatch Microbiology - Last 24 Hours (Table) 11/25/17 04:07 Urine Culture - Final Urine,Voided Assessment and Plan Assessment: assessment #1 change in mental status which has improved. The patient was diagnosed with hypoglycemia #2 chronic exertional dyspnea does not seems worse compared to before. No orthopnea, and no PND. No bilateral lower extremities edema. #3 anemia likely to be blood loss anemia. The patient is in process to be seen by the GI service #3 known coronary artery disease and status post coronary artery that was grafting #4 paroxysmal atrial fibrillation #5 mildly impaired LV function on previous echocardiogram from May 2017 #6 multiple comorbid conditions Plan #1 I do feel be shortness of breath is multifactorial including anemia, COPD, valvular heart disease, and severe pulmonary hypertension with PA pressure of 90 mmHg #2 the patient does not seems to be in any overt congestive heart failure at this point. He seems to be euvolemic. He does not seems to be having orthopnea nor bilateral lower extremities edema #3 continue monitor the hemoglobin and try to keep it about 8 #4 I would continue the patient on the current dose of Lasix by mouth. #5 I would continue the current medical regimen. The blood pressure and heart rate seems to be well-controlled #6 the patient is not a candidate to receive any anticoagulation at this point for possible GI bleed. #7 we will follow-up with the patient on when necessary case thank you for allowing us participate in his care
--- NOTE | 2017-11-26 13:09 | P.PN ---
Subjective This is a 82-year-old male well-known to my partner Dr. Quesada and rods seen on multiple occasions as well, who presented to the emergency room with a chief complaint of confusion, fatigue, weakness, and wound to his great right toe. Patient states over the last few weeks he has felt increasing more weak. patient believes he took too much insulin last night and did not eat. Patient's brought in by EMS to the ER where he is worked up. He was given glucose, but his sugar did not return to normal quickly. He was recently here for hospital stay November 12 to November 15. He was seen by Dr. Lr, Dr. Chong, Dr. Loza. He received a transfusion for symptomatic anemia. He was treated for his diabetic foot ulcer, which is now callused over , and evaluated for abnormal troponins and a non-ST elevated myocardial infarction. He also believed he had some underlying congestive heart failure. Currently he is awake and alert, his daughter and is at bedside. He continues to complain of fatigue and shortness of breath with exertion, that is abnormal for him typically. He has an extensive medical history of atrial fibrillation, anticoagulation, type insulin dependent diabetes mellitus, recent symptomatic anemia of unknown origin, renal carcinoma with nephrectomy, partial pancreatectomy and splenectomy, 11/26/2017: Patient feels slightly better. He is status post 1 unit packed red blood cells. Hemoglobin is now 8.4. He has developed a worsening leukocytosis as well. WBC count is now 16.1. There is 14.65 absolute neutrophils. Continues to have shortness of breath with exertion, but it is better. He remains on liters of oxygen via nasal cannula. I discussed his case with Dr. Ambriz. He feels he is not in overt heart failure, and that his shortness of breath is multifactorial. He does have significant other factors including a significantly elevated pulmonary hypertension. GI has seen him, and is planning EGD colonoscopy. His is at bedside today. All his questions were answered to the best of my ability with the current information available. We discussed his ongoing Mayen grade 3 diabetic ulcer and its treatment. Yesterday's exam failed to show significant abnormality, but he may have an occult osteomyelitis. X-ray done on November 12 failed to show any suspicious changes of acute osteomyelitis. There was evidence of a foreign body in this toe.. Objective - Vital Signs Vital signs: Vital Signs Temp 97.9 F 11/26/17 06:00 Pulse 78 11/26/17 07:44 Resp 20 11/26/17 06:00 BP 149/66 11/26/17 06:00 Pulse Ox 94 L 11/26/17 06:00 Intake & Output 11/25/17 11/26/17 11/26/17 18:59 06:59 18:59 Intake Total 1410 1680 840 Output Total 1550 300 Balance 1410 130 540 Intake: Intake, IV Titration 840 Amount Dextrose 5%-0.45% NaCl 1, 840 000 ml @ 83 mls/hr IV . Q12H3M ONE Rx#:[id number] Oral 1100 1680 Blood Product 310 Rc Pheresis 2 As3 Unit 310 [id number] Output: Urine 1550 300 Other: Voiding Method Urinal # Voids 3 1 2 # Bowel Movements 1 1 1 - Exam GENERAL: Well-appearing, well-nourished and in no acute distress. He is on oxygen via nasal cannula @ 3 L/min NECK: Normal range of motion, supple without lymphadenopathy or JVD, no thyromegaly LUNGS: Breath sounds are some decreased consistent with his underlying COPD. to auscultation bilaterally and equal. No wheezes or rhonchi., And minimal fine crackles noted today. HEART: Regular rate and rhythm with a right sternal border and apical murmurs, 1 out of 6, no rubs or gallops.S1S2 Normal ABDOMEN: Soft, nontender, normoactive bowel sounds. No guarding, no rebound. No masses appreciated. EXTREMITIES: Normal range of motion, last one pedal edema noted. No clubbing or cyanosis. Right great toe pedal surface ulcers callused. Jobst hose are in place today. NEUROLOGICAL: Cranial nerves II through XII grossly intact. Normal speech, normal gait. PSYCH: Normal mood, normal affect. SKIN: Warm, Dry, normal turgor, no rashes or lesions noted. - Labs CBC & Chem 7: 11/26/17 06:55 11/26/17 06:55 Labs: Abnormal Lab Results - Last 24 Hours (Table) 11/25/17 11/25/17 11/25/17 Range/Units 09:24 17:25 20:54 WBC (3.8-10.6) k/uL RBC (4.30-5.90) m/uL Hgb (13.0-17.5) gm/dL Hct (39.0-53.0) % MCV (80.0-100.0) fL MCH (25.0-35.0) pg MCHC (31.0-37.0) g/dL RDW (11.5-15.5) % Plt Count (150-450) k/uL Neutrophils # (Manual) (1.3-7.7) k/uL Lymphocytes # (Manual) (1.0-4.8) k/uL Nucleated RBCs (0-0) /100 WBC Sodium (137-145) mmol/L Chloride (98-107) mmol/L BUN (9-20) mg/dL Glucose (74-99) mg/dL POC Glucose (mg/dL) 420 H 284 H (75-99) mg/dL Crossmatch See Detail 11/26/17 11/26/17 11/26/17 Range/Units 01:51 06:55 06:55 WBC 16.1 H (3.8-10.6) k/uL RBC 4.11 L (4.30-5.90) m/uL Hgb 8.4 L (13.0-17.5) gm/dL Hct 29.1 L (39.0-53.0) % MCV 70.9 L (80.0-100.0) fL MCH 20.4 L (25.0-35.0) pg MCHC 28.7 L (31.0-37.0) g/dL RDW 20.9 H (11.5-15.5) % Plt Count 510 H (150-450) k/uL Neutrophils # (Manual) 14.65 H (1.3-7.7) k/uL Lymphocytes # (Manual) 0.81 L (1.0-4.8) k/uL Nucleated RBCs 5 H (0-0) /100 WBC Sodium 134 L (137-145) mmol/L Chloride 97 L (98-107) mmol/L BUN 24 H (9-20) mg/dL Glucose 225 H (74-99) mg/dL POC Glucose (mg/dL) 178 H (75-99) mg/dL Crossmatch 11/26/17 11/26/17 Range/Units 07:13 11:58 WBC (3.8-10.6) k/uL RBC (4.30-5.90) m/uL Hgb (13.0-17.5) gm/dL Hct (39.0-53.0) % MCV (80.0-100.0) fL MCH (25.0-35.0) pg MCHC (31.0-37.0) g/dL RDW (11.5-15.5) % Plt Count (150-450) k/uL Neutrophils # (Manual) (1.3-7.7) k/uL Lymphocytes # (Manual) (1.0-4.8) k/uL Nucleated RBCs (0-0) /100 WBC Sodium (137-145) mmol/L Chloride (98-107) mmol/L BUN (9-20) mg/dL Glucose (74-99) mg/dL POC Glucose (mg/dL) 262 H 322 H (75-99) mg/dL Crossmatch Microbiology - Last 24 Hours (Table) 11/25/17 04:07 Urine Culture - Final Urine,Voided Assessment and Plan (1) Hypoglycemia Current Visit: Yes Status: Acute Code(s): E16.2 - HYPOGLYCEMIA, UNSPECIFIED SNOMED Code(s): 207601808 (2) Anemia Current Visit: No Status: Acute Code(s): D64.9 - ANEMIA, UNSPECIFIED SNOMED Code(s): 413061896 (3) Atrial fibrillation Current Visit: No Status: Acute Code(s): I48.91 - UNSPECIFIED ATRIAL FIBRILLATION SNOMED Code(s): 90958887 (4) CHF (congestive heart failure) Current Visit: No Status: Acute Code(s): I50.9 - HEART FAILURE, UNSPECIFIED SNOMED Code(s): 99982544 (5) Diabetes mellitus Current Visit: No Status: Acute Code(s): E11.9 - TYPE 2 DIABETES MELLITUS WITHOUT COMPLICATIONS SNOMED Code(s): 97255936 (6) Diabetic foot ulcer Current Visit: No Status: Acute Code(s): E11.621 - TYPE 2 DIABETES MELLITUS WITH FOOT ULCER; L97.509 - NON-PRESSURE CHRONIC ULCER OTH PRT UNSP FOOT W UNSP SEVERITY SNOMED Code(s): 750269478 (7) GI bleed Current Visit: No Status: Acute Code(s): K92.2 - GASTROINTESTINAL HEMORRHAGE , UNSPECIFIED SNOMED Code(s): 47472689 (8) Weakness Current Visit: No Status: Acute Code(s): R53.1 - WEAKNESS SNOMED Code(s): 79531828 (9) Leukocytosis Current Visit: Yes Status: Acute Code(s): D72.829 - ELEVATED WHITE BLOOD CELL COUNT, UNSPECIFIED SNOMED Code(s): 702315399 Plan: Due to his worsening leukocytosis, I will start him on Rocephin and Zithromax. We'll repeat chest x-ray in a.m. for occult exacerbation of COPD. Obtain x-ray of his right great toe once again, and schedule him for a bone scan of this area. We'll consult infectious disease. Monitor his hemoglobin, it drops below 8 g/dL, we will plan on transfusing him another unit of packed red blood cells. Await on further recommendations cardiology. I'll wait on an EGD and/ or colonoscopy with GI to determine his site of bleeding. He'll be reevaluated next 24 hours
[2017-11-26] MEDS: cefTRIAXone IN SWFI 1,000 MG/10 ML SYRINGE IVP SCH (14:16)
[2017-11-26] MEDS: AZITHROMYCIN 500 MG TAB PO SCH (14:16)
[2017-11-26 17:17] LABS: Glucose,Whole Blood 252 mg/dL (75-99)
[2017-11-26] MEDS ORDERED: BUDESONIDE 1 MG/2 ML NEBU INHALATION SCH (20:00)
[2017-11-26 20:58] LABS: Glucose,Whole Blood 236 mg/dL (75-99)
[2017-11-26] MEDS: MELATONIN 5 MG TABLET PO SCH (21:02)
[2017-11-26] MEDS: PRAVASTATIN SODIUM 40 MG TAB PO SCH (21:02)
[2017-11-26] MEDS: MONTELUKAST 10 MG TAB PO SCH (21:02)
[2017-11-27 03:13] LABS: Glucose,Whole Blood 92 mg/dL (75-99)
[2017-11-27] MEDS ORDERED: ACETAMINOPHEN TAB 325 MG TAB PO PRN (05:14)
[2017-11-27 07:27] LABS: Glucose,Whole Blood 120 mg/dL (75-99)
[2017-11-27] MEDS: INSULIN ASPART 100 UNIT/ML 1 ML 10 ML VIAL SQ SCH ×7 (07:44→20:45)
[2017-11-27] MEDS: PANTOPRAZOLE 40 MG TABLET PO SCH (08:56)
[2017-11-27] MEDS: CYANOCOBALAMIN 500 MCG TAB PO SCH (08:56)
[2017-11-27] MEDS: POTASSIUM CHLORIDE ER 20 MEQ TAB.ER PO SCH (08:56)
[2017-11-27] MEDS: ISOSORBIDE MONONITRATE ER 30 MG TAB.ER.24H PO SCH (08:56)
[2017-11-27] MEDS: LISINOPRIL 5 MG TAB PO SCH (08:56)
[2017-11-27] MEDS: AZITHROMYCIN 500 MG TAB PO SCH (08:56)
[2017-11-27] MEDS: MAGNESIUM OXIDE 400 MG TAB PO SCH (08:56)
[2017-11-27] MEDS: cefTRIAXone IN SWFI 1,000 MG/10 ML SYRINGE IVP SCH (08:57)
[2017-11-27] MEDS: ENOXAPARIN 40 MG/0.4 ML SYRINGE SQ SCH (08:57)
[2017-11-27] MEDS: FUROSEMIDE 40 MG TAB PO SCH ×2 (09:01→15:54)
[2017-11-27] MEDS: amLODIPine 10 MG TAB PO SCH (09:01)
[2017-11-27] MEDS: POLYETHYLENE GLYCOL 3350 17 GM POWD.PACK PO SCH (09:01)
[2017-11-27 09:22] LABS: Calcium 8.9 mg/dL (8.4-10.2); Potassium 4.8 mmol/L (3.5-5.1)
[2017-11-27 09:40] LABS: Anisocytosis Moderate; Basophils # (A) 0.1 k/uL (0-0.2); Basophils % (A) 0 %; Eosinophils # (A) 0.4 k/uL (0-0.7); Eosinophils % (A) 3 %; HCT 28.7 % (39.0-53.0); HGB 8.4 gm/dL (13.0-17.5); Hypochromasia Marked; Lymphocytes # (A) 0.9 k/uL (1.0-4.8); Lymphocytes % (A) 7 %; MCH 20.6 pg (25.0-35.0); MCHC 29.2 g/dL (31.0-37.0); MCV 70.5 fL (80.0-100.0); Mean Platelet Volume 7.2; Microcytosis Marked; Monocytes # (A) 0.6 k/uL (0-1.0); Monocytes % (A) 5 %; Neutrophils % (A) 84 %; Platelet Count 510 k/uL (150-450); Poikilocytosis Marked; RBC 4.08 m/uL (4.30-5.90); RDW 20.9 % (11.5-15.5); WBC 13.1 k/uL (3.8-10.6)
--- NOTE | 2017-11-27 10:27 | XR ---
EXAMINATION TYPE: XR chest 2V DATE OF EXAM: 11/27/2017 COMPARISON: 11/25/2017 HISTORY: COPD. Shortness of breath and pneumonia. TECHNIQUE: Frontal and lateral views of the chest are obtained. FINDINGS: Persistent mild pulmonary vascular congestion/cephalization is seen in addition to minimal bibasilar subsegmental atelectasis and chronic elevation of the right hemidiaphragm. Cardiomediastin al silhouette is enlarged with post CABG changes of the chest. New retrocardiac opacity is seen with air bronchograms. Mild multilevel degenerative changes of the thoracic spine are noted. IMPRESSION: New retrocardiac opacity clinical provided history of pneumonia. Mild pulmonary vascular congestion remains, likely on the basis of improving congestive heart failure.
[2017-11-27 11:26] LABS: Glucose,Whole Blood 332 mg/dL (75-99)
[2017-11-27] MEDS ORDERED: ONDANSETRON 4 MG/2 ML VIAL IVP PRN (12:49)
[2017-11-27] MEDS ORDERED: MAG HYDROX/AL HYDROX/SIMETH 30 ML CUP PO PRN (12:50)
--- NOTE | 2017-11-27 14:01 | NM ---
EXAMINATION TYPE: NM bone 3 phase DATE OF EXAM: 11/27/2017 COMPARISON: 04/03/2016 and right ankle/foot radiographs dated 11/12/2017 HISTORY: Right foot great toe open wound with concern for osteomyelitis. Triple phase bone scintigraphy was performed following the injection of 27.1 mCi Tc 99m MDP. Immedia te images and 5 hours post injection images acquired. FINDINGS: There is symmetric blood flow to the bilateral lower extremities. On blood pool images foca l radiotracer uptake is seen within the bilateral midfoot and great toes, however only punctate focus of increased radiotracer uptake is seen focally within the region of the left fifth proximal phalanx on delayed imaging. Therefore there is no evidence of right foot osteomyelitis. IMPRESSION: 1. No scintigraphic evidence of right foot osteomyelitis. 2. Focal radiotracer accumulation at the proximal phalanx of the left fifth digit. Correlation with r adiographs is recommended.
--- NOTE | 2017-11-27 14:44 | P.PN ---
Subjective Progress Note Date: 11/27/17 This is a 82-year-old male well-known to my partner Dr. Quesada and rods seen on multiple occasions as well, who presented to the emergency room with a chief complaint of confusion, fatigue, weakness, and wound to his great right toe. Patient states over the last few weeks he has felt increasing more weak. patient believes he took too much insulin last night and did not eat. Patient's brought in by EMS to the ER where he is worked up. He was given glucose, but his sugar did not return to normal quickly. He was recently here for hospital stay November 12 to November 15. He was seen by Dr. Lr, Dr. Chong, Dr. Loza. He received a transfusion for symptomatic anemia. He was treated for his diabetic foot ulcer, which is now callused over , and evaluated for abnormal troponins and a non-ST elevated myocardial infarction. He also believed he had some underlying congestive heart failure. Currently he is awake and alert, his daughter and is at bedside. He continues to complain of fatigue and shortness of breath with exertion, that is abnormal for him typically. He has an extensive medical history of atrial fibrillation, anticoagulation, type insulin dependent diabetes mellitus, recent symptomatic anemia of unknown origin, renal carcinoma with nephrectomy, partial pancreatectomy and splenectomy, 11/26/2017: Patient feels slightly better. He is status post 1 unit packed red blood cells. Hemoglobin is now 8.4. He has developed a worsening leukocytosis as well. WBC count is now 16.1. There is 14.65 absolute neutrophils. Continues to have shortness of breath with exertion, but it is better. He remains on liters of oxygen via nasal cannula. I discussed his case with Dr. Ambriz. He feels he is not in overt heart failure, and that his shortness of breath is multifactorial. He does have significant other factors including a significantly elevated pulmonary hypertension. GI has seen him, and is planning EGD colonoscopy. His is at bedside today. All his questions were answered to the best of my ability with the current information available. We discussed his ongoing Mayen grade 3 diabetic ulcer and its treatment. Yesterday's exam failed to show significant abnormality, but he may have an occult osteomyelitis. X-ray done on November 12 failed to show any suspicious changes of acute osteomyelitis. There was evidence of a foreign body in this toe. Above notes per Dr. Key 11/27/2017 Patient seen and examined on rounds with Dr. Key. Patient is awake and alert. Sitting up in the chair. Chest xray this morning reveals new retrocardiac opacity. Mild pulmonary vascular congestion remains, likely on the basis of improving congestive heart failure. Dr. Key discussed case with Dr. Ambriz. Dr. Key inquired about beginning the patient on Sildenafil secondary to patients hypertension. Dr. Ambriz stated we could trial the patient on it to see if there is any improvement in his symptoms. Imdur has been discontinued per Dr. Key secondary to initiation of Sildenafil. Patients hemoglobin remains stable at 8.4. He denies any blood in his stools. GI is following and anticipate EGD and colonoscopy in the near future. WBC is down to 13.1 today. The patient remains on zithromax and rocephin. Patient with low grade temp of 99.1 last night. He is afebrile this morning. Dr. Loza is on consult. He remains on 3L NC with oxygen saturations greater than 92%. Patient reports improvement in SOB. Objective - Vital Signs Vital signs: Vital Signs Temp 97.4 F L 11/27/17 07:01 Pulse 67 11/27/17 09:08 Resp 18 11/27/17 07:01 BP 187/73 11/27/17 09:08 Pulse Ox 95 11/27/17 07:01 Intake & Output 11/26/17 11/27/17 11/27/17 18:59 06:59 18:59 Intake Total 2040 Output Total 300 650 Balance 1740 -650 Intake: Intake, IV Titration 840 Amount Dextrose 5%-0.45% NaCl 1, 840 000 ml @ 83 mls/hr IV . Q12H3M ONE Rx#:[id number] Oral 1200 Output: Urine 300 650 Other: Voiding Method Urinal # Voids 1 2 2 # Bowel Movements 1 - Exam GENERAL: This is a 82-year-old male in no apparent distress at the time of examination. Pleasant and cooperative. HEENT: Head is atraumatic, normocephalic. Pupils are equal, round, and reactive to light. Sclerae anicteric. Conjunctivae are clear. Mucus membranes of the mouth are moist. Neck is supple. RESPIRATORY: Clear to ausculation, diminished. No wheezes, rales, or rhonchi. No use of accessory muscles. Patient maintaining oxygen saturation greater than 92%. No chest wall tenderness is noted on palpation or with deep breathing. CARDIOVASCULAR: Regular rate and rhythm. S1 and S2 noted. No systolic or diastolic murmur auscultated. No JVD noted. No S3 or S4 noted. GASTROINTESTINAL: No distention noted. Abdomen soft and round. Normal active bowel sounds auscultated x 4 quadrants. No pain or tenderness noted upon palpation. INTEGUMENTARY: Wound to right great toe-no open skin, callused over. No cyanosis. No jaundice. No rashes noted. No cellulitis noted. EXTREMITIES: 2+ peripheral pulses. No evidence of peripheral edema. No calf tenderness noted. NEUROLOGIC: Cranial nerves II-XII intact. PSYCHIATRIC: Awake, alert, and oriented X 3. Appropriate affect. Intact judgement and insight. - Labs CBC & Chem 7: 11/27/17 08:44 11/27/17 08:44 Labs: Abnormal Lab Results - Last 24 Hours (Table) 11/25/17 11/26/17 11/26/17 Range/Units 09:24 17:03 20:57 WBC (3.8-10.6) k/uL RBC (4.30-5.90) m/uL Hgb (13.0-17.5) gm/dL Hct (39.0-53.0) % MCV (80.0-100.0) fL MCH (25.0-35.0) pg MCHC (31.0-37.0) g/dL RDW (11.5-15.5) % Plt Count (150-450) k/uL Neutrophils # (1.3-7.7) k/uL Lymphocytes # (1.0-4.8) k/uL Chloride (98-107) mmol/L BUN (9-20) mg/dL Glucose (74-99) mg/dL POC Glucose (mg/dL) 252 H 236 H (75-99) mg/dL Hemoglobin A1c 8.8 H (4.0-6.0) % 11/27/17 11/27/17 11/27/17 Range/Units 07:13 08:44 08:44 WBC 13.1 H (3.8-10.6) k/uL RBC 4.08 L (4.30-5.90) m/uL Hgb 8.4 L (13.0-17.5) gm/dL Hct 28.7 L (39.0-53.0) % MCV 70.5 L (80.0-100.0) fL MCH 20.6 L (25.0-35.0) pg MCHC 29.2 L (31.0-37.0) g/dL RDW 20.9 H (11.5-15.5) % Plt Count 510 H (150-450) k/uL Neutrophils # 11.0 H (1.3-7.7) k/uL Lymphocytes # 0.9 L (1.0-4.8) k/uL Chloride 96 L (98-107) mmol/L BUN 22 H (9-20) mg/dL Glucose 116 H (74-99) mg/dL POC Glucose (mg/dL) 120 H (75-99) mg/dL Hemoglobin A1c (4.0-6.0) % 11/27/17 Range/Units 11:22 WBC (3.8-10.6) k/uL RBC (4.30-5.90) m/uL Hgb (13.0-17.5) gm/dL Hct (39.0-53.0) % MCV (80.0-100.0) fL MCH (25.0-35.0) pg MCHC (31.0-37.0) g/dL RDW (11.5-15.5) % Plt Count (150-450) k/uL Neutrophils # (1.3-7.7) k/uL Lymphocytes # (1.0-4.8) k/uL Chloride (98-107) mmol/L BUN (9-20) mg/dL Glucose (74-99) mg/dL POC Glucose (mg/dL) 332 H (75-99) mg/dL Hemoglobin A1c (4.0-6.0) % Microbiology - Last 24 Hours (Table) 11/25/17 04:07 Urine Culture - Final Urine,Voided Assessment and Plan Plan: ASSESSMENT: Symptomatic anemia, suspect secondary to acute blood loss from GI source, status post transfusion of 1 unit RBC Paroxysmal atrial fibrillation, not on anticoagulation due to above Chronic systolic heart failure, EF 45%, improved Diabetes mellitus, type II Hypoglycemia, present on admission, secondary to patient taking medications and then not eating, resolved Metabolic encephalopathy, secondary to hypoglycemia on admission, resolved 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 Appreciate recommendations and input GI on consult. Anticipate EGD/colonoscopy in near future Monitor hemoglobin Continue antibiotics. Infectious disease on consult. Await results of bone scan Increase novolog to 10units with meals. Continue sliding scale ACHS Home meds as appropriate Monitor labs GI prophylaxis: Protonix 40 mg PO Daily DVT prophylaxis: SCDs to bilateral LE Monitor vital signs and address as appropriate Discharge planning: Patient to return home when stable Further recommendations pending patient's course Nurse practitioner note has been reviewed by physician. Signing provider agrees with the documented findings, assessment, and plan of care.
[2017-11-27] MEDS ORDERED: SILDENAFIL 20 MG TAB PO SCH (16:00)
[2017-11-27 16:49] LABS: Glucose,Whole Blood 236 mg/dL (75-99)
[2017-11-27] MEDS: ALBUTEROL NEBULIZED 2.5 MG/3 ML INHALATION PRN (18:14)
[2017-11-27 20:33] LABS: Glucose,Whole Blood 138 mg/dL (75-99)
--- NOTE | 2017-11-27 20:37 | P.CONS ---
History of Present Illness - Reason for Consult Consult date: 11/27/17 - Chief Complaint weakness - History of Present Illness 82-year-old male who has multiple medical problems that includes a known history of underlying coronary artery disease, status post CABG and several cardiac catheterizations. 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 He is known to the wound healing Center because of nonhealing ulcerations to his feet partially due to difficulty with compliance to offloading and shoes. The patient now presents to hospital with his family with apparently many weeks of increasing symptoms. He's been having increasing weakness and some increasing amount of his baseline confusion. He was having greater difficulty ambulating and there was concern as to chronic ulceration to his foot. The patient was recently hospitalized with troponin time he was found non-Q-wave myocardial infarction as well as significant anemia. Patient did require blood transfusion. He was found to have evidence of significant anemia. He did require further evaluation and outpatient GI evaluation with endoscopy was planned on December 07. Patient however started to have increasing difficulties with some pain and swelling to the right lower extremity with some increasing erythema. He also became weaker and more confused than his baseline and the family brought him to hospital. The patient's daughter who provides this would cure noticed that his feet are swollen bilaterally and the right leg was more erythematous than it had been. The patient himself is sitting upright in the chair. His legs dependent position apparently is a been through part of the day. He was able to eat his dinner but remains a poor historian but is not significantly confused at this point in time. Review of Systems The patient is somewhat vague, but has not been feeling well for the last many weeks HEENT:Denies headache or acute visual change. Denies sinus or mouth discomforts. Denies neck stiffness or pain. Denies significant oral cavity pain. Denies difficulty on swallowing. Lungs: He does have baseline shortness of breath without cough or production or hemoptysis Cardiovascular: There is dyspnea on exertion but denies chest pain, feels poorly overall, poor exercise tolerance Gastrointestinal:Denies nausea, vomiting, diarrhea, constipation, hematemesis, melena, hematochezia. No no significant change of bowel habit noticed. Musculoskeletal: Chronic musculoskeletal pain Skin: As per the HPI chronic ulcer to the right foot, onset of erythema to the right leg Neuro: Denies headache or visual change. Denies any new onset weakness or difficulty with ambulation. Denies falls or seizures. Psychiatric:Denies anxiety or depression. Endocrine: Progressive fatigue weight is been stable Past Medical History Past Medical History: Coronary Artery Disease (CAD), Cancer, Heart Failure, COPD , CVA/TIA, Diabetes Mellitus, Eye Disorder, Hyperlipidemia, Hypertension, Myocardial Infarction ([place]), Osteoarthritis (OA), Prostate Disorder, Sleep Apnea/ CPAP/BIPAP Additional Past Medical History / Comment(s): 2013 L renal cancer with surgery- partial nephrectomy/spleenectomy/distal portion of pancreas removed at [facility], IDDM type II, TIA, [place] unknown date, BPH, gastritis, small hiatal hernia, past discitis T9-T10, arthritis bilateral hands/back, TARIQ-does not tolerate his CPAP, past R great toe ulcer/infection, bilateral laser eye surgery for "alittle leakage". Last Myocardial Infarction Date:: UNKNOWN History of Any Multi-Drug Resistant Organisms: MRSA Year Discovered:: 11/13/17 MDRO Source:: TOE Past Surgical History: Coronary Bypass/CABG, Heart Catheterization Additional Past Surgical History / Comment(s): partial L nephrectomy, distal pancreatectomy, splenectomy-at [place]2000 CABG-3 vessel, EGD, colonoscopy, deviated septum surgery, skin/oral lesion removals, R carpal tunnel release, bilateral cataract removal, bilateral laser eye surgery for "leakage" Past Anesthesia/Blood Transfusion Reactions: Previous Problems w/ Anesthesia Additional Past Anesthesia/Blood Transfusion Reaction / Comm: 'TROUBLE COMING OUT OF ANESTESIA' - DELUSIONAL. Pt has received blood in past without reaction. Past Psychological History: Anxiety, Depression Additional Psychological History / Comment(s): Pt resides with his spouse. He uses a cane or walker to ambulate. He no longer drives. His spouse drives and manages his medications. Smoking Status: Never smoker Past Alcohol Use History: None Reported Past Drug Use History: None Reported - Past Family History Father Family Medical History: Myocardial Infarction ([place]) Mother Family Medical History: COPD Medications and Allergies Home Medications and Allergies Comment(s): Current Medications Acetaminophen (Tylenol Tab) 650 mg PO Q6HR PRN PRN Reason: Fever and/ or Pain Al Hydroxide/Mg Hydroxide (Maalox) 30 ml PO Q4HR PRN PRN Reason: GI Upset Albuterol Sulfate (Ventolin Nebulized) 2.5 mg INHALATION RT-TID PRN PRN Reason: Shortness Of Breath Last Admin: 11/27/17 18:14 Dose: 2.5 mg Amlodipine Besylate (Norvasc) 10 mg PO DAILY [facility] Last Admin: 11/27/17 09:01 Dose: 10 mg Azithromycin (Zithromax) 500 mg PO DAILY [facility] Last Admin: 11/27/17 08:56 Dose: 500 mg Ceftriaxone Sodium (Rocephin) 1,000 mg IVP Q24HR [facility] Last Admin: 11/27/17 08:57 Dose: 1,000 mg Cyanocobalamin (Vitamin B-12) 500 mcg PO MOWEFR [facility] Last Admin: 11/27/17 08:56 Dose: 500 mcg Enoxaparin Sodium (Lovenox) 40 mg SQ DAILY [facility] Last Admin: 11/27/17 08:57 Dose: 40 mg Furosemide (Lasix) 40 mg PO BID@0900,1600 [facility] Last Admin: 11/27/17 15:54 Dose: 40 mg Insulin Aspart (Novolog) 0 unit SQ ACHS [facility]; Protocol Last Admin: 11/27/17 17:51 Dose: 5 unit Insulin Aspart (Novolog) 10 unit SQ AC-TID [facility] Last Admin: 11/27/17 17:51 Dose: 10 unit Lisinopril (Zestril) 5 mg PO DAILY [facility] Last Admin: 11/27/17 08:56 Dose: 5 mg Magnesium Oxide (Mag-Ox) 400 mg PO DAILY [facility] Last Admin: 11/27/17 08:56 Dose: 400 mg Melatonin (Melatonin) 5 mg PO [facility] Last Admin: 11/26/17 21:02 Dose: 5 mg Montelukast Sodium (Singulair) 10 mg PO HS [facility] Last Admin: 11/26/17 21:02 Dose: 10 mg Ondansetron HCl (Zofran) 4 mg IVP Q6HR PRN PRN Reason: Nausea And Vomiting Pantoprazole Sodium (Protonix) 40 mg PO AC-BRKFST [facility] Last Admin: 11/27/17 08:56 Dose: 40 mg Polyethylene Glycol (Miralax) 17 gm PO DAILY [facility] Last Admin: 11/27/17 09:01 Dose: 17 gm Potassium Chloride (K-Dur 20) 40 meq PO DAILY [facility] Last Admin: 11/27/17 08:56 Dose: 40 meq Pravastatin Sodium (Pravachol) 40 mg PO [facility] Last Admin: 11/26/17 21:02 Dose: 40 mg Sildenafil Citrate (Revatio) 20 mg PO TID [facility] Home Medications Medication Instructions Recorded Confirmed Type Insulin Detemir [Levemir Flextouch] 60 units SQ 12/21/14 11/25/17 History Montelukast [Singulair] 10 mg PO 12/21/14 11/25/17 History Insulin Aspart [NovoLOG Flexpen] 17 units SQ AC-TID 02/07/16 11/25/17 History Isosorbide Mononitrate ER [Imdur] 30 mg PO DAILY 02/07/16 11/25/17 History Magnesium Oxide [Mag-Ox] 250 mg PO DAILY 02/07/16 11/25/17 History Pravastatin Sodium 40 mg PO 02/07/16 11/25/17 History Zinc 50 mg PO DAILY 02/07/16 11/25/17 History Albuterol Nebulized [Ventolin 2.5 mg INHALATION RT-TID PRN 04/02/16 11/25/17 History Nebulized] Potassium Chloride ER [K-Dur 20] 20 meq PO BID 04/02/16 11/25/17 History Alanson-3 Fatty Acids/Fish Oil [Fish 1 cap PO DAILY 08/13/16 11/25/17 History Oil 1,000 mg Softgel] Acetaminophen Tab [Tylenol] 500 - 1,000 mg PO Q6HR PRN 03/17/17 11/25/17 History Escitalopram [Lexapro] 20 mg PO DAILY 03/17/17 11/25/17 History Pantoprazole [Protonix] 40 mg PO DAILY #30 tab 03/21/17 11/25/17 Rx Cyanocobalamin [Vitamin B-12] 500 mcg PO MOWEFR 11/12/17 11/25/17 History Insulin Aspart [NovoLOG Flexpen] See Protocol SQ AC-TID PRN 11/12/17 11/25/17 History Polyethylene Glycol 3350 [Miralax] 17 gm PO DAILY 11/12/17 11/25/17 History Budesonide-Formot 160-4.5 Mcg 2 puff INHALATION RT-BID 11/13/17 11/25/17 History [Symbicort 160-4.5 Mcg Inhaler] Furosemide [Lasix] 40 mg PO BID@0900,1600 #60 tab 11/15/17 11/25/17 Rx Lisinopril [Zestril] 5 mg PO DAILY #30 tab 11/15/17 11/25/17 Rx amLODIPine [Norvasc] 10 mg PO DAILY #30 tab 11/15/17 11/25/17 Rx Allergies Allergy/AdvReac Type Severity Reaction Status Date / Time Penicillins Allergy Unknown Rash/Hives Verified 11/25/17 10:59 atorvastatin calcium Allergy Unknown Verified 11/25/17 10:59 [From Lipitor] clonazepam [From Klonopin] Allergy Hallucinati Verified 11/25/17 10:59 ons codeine Allergy Hallucinati Verified 11/25/17 10:59 ons haloperidol [From Haldol] Allergy Hallucinati Verified 11/25/17 10:59 ons haloperidol lactate Allergy Hallucinati Verified 11/25/17 10:59 [From Haldol] ons hydromorphone HCl Allergy Hallucinati Verified 11/25/17 10:59 [From Dilaudid] ons methylphenidate HCl Allergy Hallucinati Verified 11/25/17 10:59 [From Ritalin] ons morphine Allergy Hallucinati Verified 11/25/17 10:59 ons propofol Allergy Hallucinati Verified 11/25/17 10:59 ons quetiapine fumarate Allergy Hallucinati Verified 11/25/17 10:59 [From Seroquel] ons Sulfa (Sulfonamide Allergy Unknown Verified 11/25/17 10:59 Antibiotics) vancomycin Allergy Unknown Verified 11/25/17 10:59 ativan AdvReac Unknown Uncoded 11/25/17 01:13 Physical Exam Vitals: Vital Signs Temp Pulse Pulse Resp BP BP Pulse Ox 11/27/17 18:25 79 11/27/17 18:16 78 97 11/27/17 14:10 98.0 F 59 L 18 110/68 95 11/27/17 09:08 67 187/73 11/27/17 07:01 97.4 F L 54 L 18 127/60 95 11/26/17 23:00 99.1 F 71 18 118/66 93 L Intake and Output 11/27/17 11/27/17 11/27/17 06:59 14:59 22:59 Intake Total 600 Output Total 650 Balance -650 600 Intake: Oral 600 Output: Urine 650 Other: Voiding Method Urinal Toilet # Voids 2 2 1 Pleasant elderly male, sitting upright in the chair legs dependent position., seems comfortable, family is present and voice complaints for him the patient himself again relates he feels relatively well HEENT: Anicteric conjunctiva are pink and moist nasal mucosa grossly intact without significant lesions, there is no thrush. Neck: The neck is supple without significant lymphadenopathy or thyromegaly. Lungs: There are symmetrical air entry, few crackles at the bases no bronchial sounds Heart: Irregularly irregular with an audible S1 and S2 soft S4 no murmur click or rub Abdomen: Obese, Positive bowel sounds soft and nontender without palpable masses or organomegaly. There was no guarding or rebound. Extremities: The upper extremities have excellent pulses they are symmetric, no significant petechiae or telangiectasia. No splinter hemorrhages were noted. Lower extremities have evidence of minimal edema. The right great toe plantar surface has area of a chronic callus without current ulceration. There is no expressible purulence. There is evidence of ascending erythema. The site however is nontender. His skin is dry and scaly no significant open ulcerations are seen. 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 The family is concerned about a foreign body however review of x-ray shows some present since 2017. Neuro: Awake alert oriented to person place and time. 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 Results CBC & Chem 7: 11/27/17 08:44 11/27/17 08:44 Labs: Abnormal Lab Results - Last 24 Hours (Table) 11/25/17 11/26/17 11/27/17 Range/Units 09:24 20:57 07:13 WBC (3.8-10.6) k/uL RBC (4.30-5.90) m/uL Hgb (13.0-17.5) gm/dL Hct (39.0-53.0) % MCV (80.0-100.0) fL MCH (25.0-35.0) pg MCHC (31.0-37.0) g/dL RDW (11.5-15.5) % Plt Count (150-450) k/uL Neutrophils # (1.3-7.7) k/uL Lymphocytes # (1.0-4.8) k/uL Chloride (98-107) mmol/L BUN (9-20) mg/dL Glucose (74-99) mg/dL POC Glucose (mg/dL) 236 H 120 H (75-99) mg/dL Hemoglobin A1c 8.8 H (4.0-6.0) % 11/27/17 11/27/17 11/27/17 Range/Units 08:44 08:44 11:22 WBC 13.1 H (3.8-10.6) k/uL RBC 4.08 L (4.30-5.90) m/uL Hgb 8.4 L (13.0-17.5) gm/dL Hct 28.7 L (39.0-53.0) % MCV 70.5 L (80.0-100.0) fL MCH 20.6 L (25.0-35.0) pg MCHC 29.2 L (31.0-37.0) g/dL RDW 20.9 H (11.5-15.5) % Plt Count 510 H (150-450) k/uL Neutrophils # 11.0 H (1.3-7.7) k/uL Lymphocytes # 0.9 L (1.0-4.8) k/uL Chloride 96 L (98-107) mmol/L BUN 22 H (9-20) mg/dL Glucose 116 H (74-99) mg/dL POC Glucose (mg/dL) 332 H (75-99) mg/dL Hemoglobin A1c (4.0-6.0) % 11/27/17 Range/Units 16:32 WBC (3.8-10.6) k/uL RBC (4.30-5.90) m/uL Hgb (13.0-17.5) gm/dL Hct (39.0-53.0) % MCV (80.0-100.0) fL MCH (25.0-35.0) pg MCHC (31.0-37.0) g/dL RDW (11.5-15.5) % Plt Count (150-450) k/uL Neutrophils # (1.3-7.7) k/uL Lymphocytes # (1.0-4.8) k/uL Chloride (98-107) mmol/L BUN (9-20) mg/dL Glucose (74-99) mg/dL POC Glucose (mg/dL) 236 H (75-99) mg/dL Hemoglobin A1c (4.0-6.0) % Laboratory Results WBC 13.1 k/uL (3.8-10.6) H 11/27/17 08:44 RBC 4.08 m/uL (4.30-5.90) L 11/27/17 08:44 Hgb 8.4 gm/dL (13.0-17.5) L 11/27/17 08:44 Hct 28.7 % (39.0-53.0) L 11/27/17 08:44 MCV 70.5 fL (80.0-100.0) L 11/27/17 08:44 MCH 20.6 pg (25.0-35.0) L 11/27/17 08:44 MCHC 29.2 g/dL (31.0-37.0) L 11/27/17 08:44 RDW 20.9 % (11.5-15.5) H 11/27/17 08:44 Plt Count 510 k/uL (150-450) H 11/27/17 08:44 Neutrophils % 84 % 11/27/17 08:44 Neutrophils % (Manual) 91 % 11/26/17 06:55 Band Neutrophils % 1 % 11/25/17 09:24 Lymphocytes % 7 % 11/27/17 08:44 Lymphocytes % (Manual) 5 % 11/26/17 06:55 Monocytes % 5 % 11/27/17 08:44 Monocytes % (Manual) 4 % 11/26/17 06:55 Eosinophils % 3 % 11/27/17 08:44 Eosinophils % (Manual) 1 % 11/26/17 06:55 Basophils % 0 % 11/27/17 08:44 Basophils % (Manual) 1 % 11/25/17 09:24 Neutrophils # 11.0 k/uL (1.3-7.7) H 11/27/17 08:44 Neutrophils # (Manual) 14.65 k/uL (1.3-7.7) H 11/26/17 06:55 Lymphocytes # 0.9 k/uL (1.0-4.8) L 11/27/17 08:44 Lymphocytes # (Manual) 0.81 k/uL (1.0-4.8) L 11/26/17 06:55 Monocytes # 0.6 k/uL (0-1.0) 11/27/17 08:44 Monocytes # (Manual) 0.64 k/uL (0-1.0) 11/26/17 06:55 Eosinophils # 0.4 k/uL (0-0.7) 11/27/17 08:44 Eosinophils # (Manual) 0.16 k/uL (0-0.7) 11/26/17 06:55 Basophils # 0.1 k/uL (0-0.2) 11/27/17 08:44 Basophils # (Manual) 0.15 k/uL (0-0.2) 11/25/17 09:24 Nucleated RBCs 5 /100 WBC (0-0) H 11/26/17 06:55 Manual Slide Review Performed 11/25/17 01:11 Hypochromasia Marked 11/27/17 08:44 Poikilocytosis Marked 11/27/17 08:44 Anisocytosis Moderate 11/27/17 08:44 Microcytosis Marked 11/27/17 08:44 Spherocytes Present 11/26/17 06:55 Target Cells Present 11/26/17 06:55 Henriquez-Rhododendron Bodies Present 11/26/17 06:55 Crenated Cell Present 11/26/17 06:55 Fragmented RBCs Present 11/26/17 06:55 PT 11.7 sec (9.0-12.0) 11/25/17 01:11 INR 1.2 (<1.2) H 11/25/17 01:11 APTT 25.6 sec (22.0-30.0) 11/25/17 01:11 Sodium 138 mmol/L (137-145) 11/27/17 08:44 Potassium 4.8 mmol/L (3.5-5.1) 11/27/17 08:44 Chloride 96 mmol/L (98-107) L 11/27/17 08:44 Carbon Dioxide 30 mmol/L (22-30) 11/27/17 08:44 Anion Gap 12 mmol/L 11/27/17 08:44 BUN 22 mg/dL (9-20) H 11/27/17 08:44 Creatinine 1.05 mg/dL (0.66-1.25) 11/27/17 08:44 Est GFR (CKD-EPI)AfAm 78 (>60 ml/min/1.73 sqM) 11/27/17 08:44 Est GFR (CKD-EPI)NonAf 67 (>60 ml/min/1.73 sqM) 11/27/17 08:44 Glucose 116 mg/dL (74-99) H 11/27/17 08:44 POC Glucose (mg/dL) 236 mg/dL (75-99) H 11/27/17 16:32 POC Glu [place]yer [place] Slabs ID [email or web address], Jodee 11/27/17 16:[address] Glu mg/dL 206 11/25/17 09:24 Hemoglobin A1c 8.8 % (4.0-6.0) H 11/25/17 09:24 Plasma Lactic Acid Dean 1.6 mmol/L (0.7-2.0) 11/25/17 01:11 Calcium 8.9 mg/dL (8.4-10.2) 11/27/17 08:44 Phosphorus 3.5 mg/dL (2.5-4.5) 11/25/17 01:11 Magnesium 2.1 mg/dL (1.6-2.3) 11/26/17 06:55 Total Bilirubin 0.4 mg/dL (0.2-1.3) 11/25/17 01:11 AST 33 U/L (17-59) 11/25/17 01:11 ALT 42 U/L (21-72) 11/25/17 01:11 Alkaline Phosphatase 75 U/L (38-126) 11/25/17 01:11 Total Creatine Kinase 118 U/L (55-170) 11/25/17 01:11 CK-MB (CK-2) 7.9 ng/mL (0.0-2.4) H* 11/25/17 01:11 CK-MB (CK-2) Rel Index 6.7 11/25/17 01:11 Troponin I 0.019 ng/mL (0.000-0.034) 11/25/17 01:11 NT-Pro-B Natriuret Pep 2650 pg/mL 11/25/17 09:24 Total Protein 6.3 g/dL (6.3-8.2) 11/25/17 01:11 Albumin 3.8 g/dL (3.5-5.0) 11/25/17 01:11 TSH 0.630 mIU/L (0.465-4.680) 11/25/17 01:11 Urine Color Light Yellow 11/25/17 04:07 Urine Appearance Clear (Clear) 11/25/17 04:07 Urine pH 6.0 (5.0-8.0) 11/25/17 04:07 Ur Specific [place] 1.008 (1.001-1.035) 11/25/17 04:07 Urine Protein Trace (Negative) H 11/25/17 04:07 Urine Glucose (UA) 3+ (Negative) H 11/25/17 04:07 Urine Ketones Negative (Negative) 11/25/17 04:07 Urine Blood Negative (Negative) 11/25/17 04:07 Urine Nitrite Negative (Negative) 11/25/17 04:07 Urine Bilirubin Negative (Negative) 11/25/17 04:07 Urine Urobilinogen <2.0 mg/dL (<2.0) 11/25/17 04:07 Ur Leukocyte Esterase Negative (Negative) 11/25/17 04:07 Stool Occult Blood Negative (Negative) 11/25/17 11:20 Acetone, Qual Negative (Negative) 11/25/17 01:11 Blood Type A Negative 11/25/17 09:24 Blood Type Recheck No 11/25/17 09:24 Antibody Screen NEGATIVE 11/25/17 09:24 Crossmatch See Detail 11/25/17 09:24 Spec Expiration Date 11/28/2017 7626 11/25/17 09:24 Microbiology 11/25/17 04:07 Urine,Voided Urine Culture - Final Comments: Bone scan has occurred evidence of no osteolysis to the right foot, evidence of chronic arthritic changes to the proximal phalanx of the left foot fifth digit. Assessment and Plan (1) Cellulitis of right leg Narrative/Plan: 82-year-old male with a long-standing history of multiple medical problems that includes his recent hospitalization with his non-ST elevated myocardial infarction in his significant anemia that appears to be blood loss basis. He is due for an outpatient endoscopy on December 07. He received 2 units of packed red cells during his last stay. The patient is fatigued and not feeling well but does not feel as ill as he did during the last stay. He has not developed evidence of cellulitis to the right lower extremity. He does have the chronic callus area that is without open drainage at this point in time. Is an area of injury to the right lateral ankle that is healed with no purulence. No other sites of direct open entry are seen for the cellulitis right leg. At this time is doing somewhat better but needs to elevate the legs. This is emphasized with the family so he is done with his meals to get back in the bed to elevate his legs to help with the edema and the secondary cellulitis. The duplex feels evidence of deep venous thrombosis left leg at this time. Improved skin care will help with the dryness potential portals of infection into the lower extremities. There is evidence of the anemia a mild leukocytosis and thrombocytosis. Appear to be somewhat reactive in nature to his significant anemia The chest x-ray showing evidence of the new retrocardiac opacity concerns pneumonia however heart failure remains of concern especially given his recent myocardial infarction in his significant anemia. Antibiotic therapy appears to be appropriate this time, however if the right leg erythema does not rapidly improve within need to consider the addition of vancomycin. Current Visit: Yes Status: Acute Code(s): L03.115 - CELLULITIS OF RIGHT LOWER LIMB SNOMED Code(s): 970759866 (2) Encephalopathy in sepsis Current Visit: Yes Status: Acute Code(s): G93.41 - METABOLIC ENCEPHALOPATHY SNOMED Code(s): 020393518 (3) Anemia, blood loss Current Visit: Yes Status: Acute Code(s): D50.0 - IRON DEFICIENCY ANEMIA SECONDARY TO BLOOD LOSS (CHRONIC) SNOMED Code(s): 864788722
[2017-11-27] MEDS: PRAVASTATIN SODIUM 40 MG TAB PO SCH (20:44)
[2017-11-27] MEDS: MELATONIN 5 MG TABLET PO SCH (20:44)
[2017-11-27] MEDS: SILDENAFIL 20 MG TAB PO SCH (20:44)
[2017-11-27] MEDS: MONTELUKAST 10 MG TAB PO SCH (20:44)
[2017-11-28 02:07] LABS: Glucose,Whole Blood 222 mg/dL (75-99)
[2017-11-28 07:25] LABS: Glucose,Whole Blood 247 mg/dL (75-99)
[2017-11-28] MEDS: amLODIPine 10 MG TAB PO SCH (08:03)
[2017-11-28] MEDS: INSULIN ASPART 100 UNIT/ML 1 ML 10 ML VIAL SQ SCH ×7 (08:03→21:31)
[2017-11-28] MEDS: POTASSIUM CHLORIDE ER 20 MEQ TAB.ER PO SCH (08:03)
[2017-11-28] MEDS: LISINOPRIL 5 MG TAB PO SCH (08:03)
[2017-11-28] MEDS: AZITHROMYCIN 500 MG TAB PO SCH (08:03)
[2017-11-28] MEDS: PANTOPRAZOLE 40 MG TABLET PO SCH (08:03)
[2017-11-28] MEDS: FUROSEMIDE 40 MG TAB PO SCH ×2 (08:03→15:05)
[2017-11-28] MEDS: MAGNESIUM OXIDE 400 MG TAB PO SCH (08:04)
[2017-11-28] MEDS: SILDENAFIL 20 MG TAB PO SCH ×3 (08:04→21:35)
[2017-11-28] MEDS: cefTRIAXone IN SWFI 1,000 MG/10 ML SYRINGE IVP SCH (08:04)
[2017-11-28] MEDS: ENOXAPARIN 40 MG/0.4 ML SYRINGE SQ SCH (08:04)
[2017-11-28] MEDS: POLYETHYLENE GLYCOL 3350 17 GM POWD.PACK PO SCH (08:04)
[2017-11-28] MEDS: ALBUTEROL NEBULIZED 2.5 MG/3 ML INHALATION PRN (08:16)
--- NOTE | 2017-11-28 09:30 | P.PN ---
Subjective Progress Note Date: 11/28/17 Principal diagnosis: Anemia No active bleeding. Outpatient colonoscopy scheduled December 07. Denies abdominal pain. Hemoglobin 8.5. Objective - Vital Signs Vital signs: Vital Signs Temp 97.0 F L 11/28/17 05:55 Pulse 62 11/28/17 08:29 Resp 16 11/28/17 05:55 BP 134/61 11/28/17 05:55 Pulse Ox 96 11/28/17 05:55 Intake & Output 11/27/17 11/28/17 11/28/17 18:59 06:59 18:59 Intake Total 600 Output Total 900 700 Balance 600 -900 -700 Intake: Oral 600 Output: Urine 900 700 Other: Voiding Method Toilet Toilet # Voids 1 2 - Exam General appearance: The patient is alert, oriented, in no acute distress. HET: Head is normocephalic and atraumatic. Pupils are equal and reactive. Oropharynx is clear without lesions. Neck: Supple without lymphadenopathy. Trachea midline. Heart: S1 S2. Regular rate and rhythm. Lungs: No crackles or wheezes are heard. Abdomen: Soft, nontender, nondistended with bowel sounds. No peritoneal signs. No palpable organomegaly or masses. - Labs CBC & Chem 7: 11/28/17 09:16 11/27/17 08:44 Labs: Abnormal Lab Results - Last 24 Hours (Table) 11/27/17 11/27/17 11/27/17 Range/Units 08:44 08:44 11:22 WBC 13.1 H (3.8-10.6) k/uL RBC 4.08 L (4.30-5.90) m/uL Hgb 8.4 L (13.0-17.5) gm/dL Hct 28.7 L (39.0-53.0) % MCV 70.5 L (80.0-100.0) fL MCH 20.6 L (25.0-35.0) pg MCHC 29.2 L (31.0-37.0) g/dL RDW 20.9 H (11.5-15.5) % Plt Count 510 H (150-450) k/uL Neutrophils # 11.0 H (1.3-7.7) k/uL Lymphocytes # 0.9 L (1.0-4.8) k/uL Chloride 96 L (98-107) mmol/L BUN 22 H (9-20) mg/dL Glucose 116 H (74-99) mg/dL POC Glucose (mg/dL) 332 H (75-99) mg/dL 11/27/17 11/27/17 11/28/17 Range/Units 16:32 20:31 02:02 WBC (3.8-10.6) k/uL RBC (4.30-5.90) m/uL Hgb (13.0-17.5) gm/dL Hct (39.0-53.0) % MCV (80.0-100.0) fL MCH (25.0-35.0) pg MCHC (31.0-37.0) g/dL RDW (11.5-15.5) % Plt Count (150-450) k/uL Neutrophils # (1.3-7.7) k/uL Lymphocytes # (1.0-4.8) k/uL Chloride (98-107) mmol/L BUN (9-20) mg/dL Glucose (74-99) mg/dL POC Glucose (mg/dL) 236 H 138 H 222 H (75-99) mg/dL 11/28/17 Range/Units 07:22 WBC (3.8-10.6) k/uL RBC (4.30-5.90) m/uL Hgb (13.0-17.5) gm/dL Hct (39.0-53.0) % MCV (80.0-100.0) fL MCH (25.0-35.0) pg MCHC (31.0-37.0) g/dL RDW (11.5-15.5) % Plt Count (150-450) k/uL Neutrophils # (1.3-7.7) k/uL Lymphocytes # (1.0-4.8) k/uL Chloride (98-107) mmol/L BUN (9-20) mg/dL Glucose (74-99) mg/dL POC Glucose (mg/dL) 247 H (75-99) mg/dL Assessment and Plan Assessment: Impression 1. Microcytic iron deficiency anemia component of acute blood loss with decreased MCV and reports of intermittent rectal bleeding previous workup colonoscopy in 2013 upper endoscopy in 2017 unremarkable. Presently not having overt bleeding. 2. Atrial fibrillation not receiving anticoagulation. 3. History of partial splenectomy. Recommendations: 1. Dr. Chong recommends outpatient colonoscopy December [address] Anaya as previously scheduled for evaluation of anemia and rectal bleeding. Possible small bowel capsule endoscopy pending colonoscopy findings. Discharge per medicine. Assessment and plan a care discussed with Dr. Chong
[2017-11-28 10:31] LABS: Anisocytosis Moderate; HCT 29.2 % (39.0-53.0); HGB 8.5 gm/dL (13.0-17.5); Hypochromasia Marked; MCH 20.3 pg (25.0-35.0); Mean Platelet Volume 9.5; Microcytosis Marked; Platelet Count 453 k/uL (150-450); Poikilocytosis Moderate; RBC 4.18 m/uL (4.30-5.90); RDW 21.5 % (11.5-15.5); WBC 13.9 k/uL (3.8-10.6)
[2017-11-28 10:58] LABS: Crenated RBC Present; Lymphocytes # (M) 1.39 k/uL (1.0-4.8); Neutrophils # (M) 11.12 k/uL (1.3-7.7); Neutrophils % (M) 80 %; Nucleated Red Blood Cells 0 /100 WBC (0-0); RBC Fragments Present; Target Cells Present; Total Cells Counted 100
[2017-11-28 11:05] LABS: Albumin 3.5 g/dL (3.5-5.0); Calcium 8.6 mg/dL (8.4-10.2); Total Bilirubin 0.5 mg/dL (0.2-1.3); Total Protein 5.9 g/dL (6.3-8.2)
[2017-11-28 11:22] LABS: Glucose,Whole Blood 325 mg/dL (75-99)
--- NOTE | 2017-11-28 11:26 | P.PN ---
Subjective Progress Note Date: 11/28/17 This is a 82-year-old male well-known to my partner Dr. Quesada and rods seen on multiple occasions as well, who presented to the emergency room with a chief complaint of confusion, fatigue, weakness, and wound to his great right toe. Patient states over the last few weeks he has felt increasing more weak. patient believes he took too much insulin last night and did not eat. Patient's brought in by EMS to the ER where he is worked up. He was given glucose, but his sugar did not return to normal quickly. He was recently here for hospital stay November 12 to November 15. He was seen by Dr. Lr, Dr. Chong, Dr. Loza. He received a transfusion for symptomatic anemia. He was treated for his diabetic foot ulcer, which is now callused over , and evaluated for abnormal troponins and a non-ST elevated myocardial infarction. He also believed he had some underlying congestive heart failure. Currently he is awake and alert, his daughter and is at bedside. He continues to complain of fatigue and shortness of breath with exertion, that is abnormal for him typically. He has an extensive medical history of atrial fibrillation, anticoagulation, type insulin dependent diabetes mellitus, recent symptomatic anemia of unknown origin, renal carcinoma with nephrectomy, partial pancreatectomy and splenectomy, 11/26/2017: Patient feels slightly better. He is status post 1 unit packed red blood cells. Hemoglobin is now 8.4. He has developed a worsening leukocytosis as well. WBC count is now 16.1. There is 14.65 absolute neutrophils. Continues to have shortness of breath with exertion, but it is better. He remains on liters of oxygen via nasal cannula. I discussed his case with Dr. Ambriz. He feels he is not in overt heart failure, and that his shortness of breath is multifactorial. He does have significant other factors including a significantly elevated pulmonary hypertension. GI has seen him, and is planning EGD colonoscopy. His is at bedside today. All his questions were answered to the best of my ability with the current information available. We discussed his ongoing Mayen grade 3 diabetic ulcer and its treatment. Yesterday's exam failed to show significant abnormality, but he may have an occult osteomyelitis. X-ray done on November 12 failed to show any suspicious changes of acute osteomyelitis. There was evidence of a foreign body in this toe. Above notes per Dr. Key 11/27/2017 Patient seen and examined on rounds with Dr. Key. Patient is awake and alert. Sitting up in the chair. Chest xray this morning reveals new retrocardiac opacity. Mild pulmonary vascular congestion remains, likely on the basis of improving congestive heart failure. Dr. Key discussed case with Dr. Ambriz. Dr. Key inquired about beginning the patient on Sildenafil secondary to patients hypertension. Dr. Ambriz stated we could trial the patient on it to see if there is any improvement in his symptoms. Imdur has been discontinued per Dr. Key secondary to initiation of Sildenafil. Patients hemoglobin remains stable at 8.4. He denies any blood in his stools. GI is following and anticipate EGD and colonoscopy in the near future. WBC is down to 13.1 today. The patient remains on zithromax and rocephin. Patient with low grade temp of 99.1 last night. He is afebrile this morning. Dr. Loza is on consult. He remains on 3L NC with oxygen saturations greater than 92%. Patient reports improvement in SOB. 11/28/2017 Patient seen and examined at the bedside. Patient reports he is feeling well this morning. He denies chest pain or pressure. Reports continued improvement in shortness of breath. He continues to require oxygen to maintain sats greater than 92%. Patient reports bowel movement yesterday. He states he has had had blood in his stools intermittently. Dr. Chong evaluated patient on 11/25/2017 and stated he would consider EGD and colonoscopy this admission when patient was more stable, however he was re-evaluated today by GI and now are going to complete EGD and colonoscopy outpatient on December 07. Bone scan completed 2017 was negative for osteomyelitis. Dr. Loza is following. Objective - Vital Signs Vital signs: Vital Signs Temp 97.0 F L 11/28/17 05:55 Pulse 62 11/28/17 08:29 Resp 16 11/28/17 05:55 BP 134/61 11/28/17 05:55 Pulse Ox 96 11/28/17 05:55 Intake & Output 11/27/17 11/28/17 11/28/17 18:59 06:59 18:59 Intake Total 600 Output Total 900 700 Balance 600 -900 -700 Intake: Oral 600 Output: Urine 900 700 Other: Voiding Method Toilet Toilet # Voids 1 2 # Bowel Movements 0 - Exam GENERAL: This is a 82-year-old male in no apparent distress at the time of examination. Pleasant and cooperative. HEENT: Head is atraumatic, normocephalic. Pupils are equal, round, and reactive to light. Sclerae anicteric. Conjunctivae are clear. Mucus membranes of the mouth are moist. Neck is supple. RESPIRATORY: Clear to ausculation, diminished. No wheezes, rales, or rhonchi. No use of accessory muscles. Patient maintaining oxygen saturation greater than 92%. No chest wall tenderness is noted on palpation or with deep breathing. CARDIOVASCULAR: Regular rate and rhythm. S1 and S2 noted. No systolic or diastolic murmur auscultated. No JVD noted. No S3 or S4 noted. GASTROINTESTINAL: No distention noted. Abdomen soft and round. Normal active bowel sounds auscultated x 4 quadrants. No pain or tenderness noted upon palpation. INTEGUMENTARY: Wound to right great toe-no open skin, callused over. No cyanosis. No jaundice. No rashes noted. EXTREMITIES: 2+ peripheral pulses. No evidence of peripheral edema. No calf tenderness noted. NEUROLOGIC: Cranial nerves II-XII intact. PSYCHIATRIC: Awake, alert, and oriented X 3. Appropriate affect. Intact judgement and insight. - Labs CBC & Chem 7: 11/28/17 09:16 11/27/17 08:44 Labs: Abnormal Lab Results - Last 24 Hours (Table) 11/27/17 11/27/17 11/27/17 Range/Units 11:22 16:32 20:31 WBC (3.8-10.6) k/uL RBC (4.30-5.90) m/uL Hgb (13.0-17.5) gm/dL Hct (39.0-53.0) % MCV (80.0-100.0) fL MCH (25.0-35.0) pg MCHC (31.0-37.0) g/dL RDW (11.5-15.5) % Plt Count (150-450) k/uL Neutrophils # (Manual) (1.3-7.7) k/uL POC Glucose (mg/dL) 332 H 236 H 138 H (75-99) mg/dL 11/28/17 11/28/17 11/28/17 Range/Units 02:02 07:22 09:16 WBC 13.9 H (3.8-10.6) k/uL RBC 4.18 L (4.30-5.90) m/uL Hgb 8.5 L (13.0-17.5) gm/dL Hct 29.2 L (39.0-53.0) % MCV 70.0 L (80.0-100.0) fL MCH 20.3 L (25.0-35.0) pg MCHC 29.0 L (31.0-37.0) g/dL RDW 21.5 H (11.5-15.5) % Plt Count 453 H (150-450) k/uL Neutrophils # (Manual) 11.12 H (1.3-7.7) k/uL POC Glucose (mg/dL) 222 H 247 H (75-99) mg/dL Assessment and Plan Plan: ASSESSMENT: Symptomatic anemia, suspect secondary to acute blood loss from GI source, status post transfusion of 1 unit RBC Paroxysmal atrial fibrillation, not on anticoagulation due to above Chronic systolic heart failure, EF 45% Diabetes mellitus, type II Hypoglycemia, present on admission, secondary to patient taking medications and then not eating, resolved Metabolic encephalopathy, secondary to hypoglycemia on admission, resolved 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 Appreciate recommendations and input GI on consult. EGD/colonoscopy now to be performed outpatient Monitor hemoglobin Continue antibiotics. Infectious disease on consult. Increase novolog with meals to 17 units. Continue sliding scale ACHS Resume levemir at HS. Will begin with 40 units. Home meds as appropriate Monitor labs GI prophylaxis: Protonix 40 mg PO Daily DVT prophylaxis: SCDs to bilateral LE Monitor vital signs and address as appropriate Discharge planning: Patient to return home when stable Further recommendations pending patient's course Nurse practitioner note has been reviewed by physician. Signing provider agrees with the documented findings, assessment, and plan of care.
[2017-11-28] MEDS: ALBUTEROL NEBULIZED 2.5 MG/3 ML INHALATION SCH ×2 (13:25→18:57)
[2017-11-28 17:10] LABS: Glucose,Whole Blood 272 mg/dL (75-99)
[2017-11-28 20:55] LABS: Glucose,Whole Blood 101 mg/dL (75-99)
[2017-11-28] MEDS ORDERED: INSULIN DETEMIR 100 UNIT/ML 10 ML VIAL SQ SCH (21:00)
[2017-11-28] MEDS: PRAVASTATIN SODIUM 40 MG TAB PO SCH (21:35)
[2017-11-28] MEDS: MONTELUKAST 10 MG TAB PO SCH (21:35)
[2017-11-28] MEDS: MELATONIN 5 MG TABLET PO SCH (21:35)
--- NOTE | 2017-11-28 22:38 | P.PN ---
Subjective Progress Note Date: 11/28/17 82-year-old male who has multiple medical problems that includes a known history of underlying coronary artery disease, status post CABG and several cardiac catheterizations. 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 He is known to the wound healing Center because of nonhealing ulcerations to his feet partially due to difficulty with compliance to offloading and shoes. The patient now presents to hospital with his family with apparently many weeks of increasing symptoms. He's been having increasing weakness and some increasing amount of his baseline confusion. He was having greater difficulty ambulating and there was concern as to chronic ulceration to his foot. The patient was recently hospitalized with troponin time he was found non-Q-wave myocardial infarction as well as significant anemia. Patient did require blood transfusion. He was found to have evidence of significant anemia. He did require further evaluation and outpatient GI evaluation with endoscopy was planned on December 07. Patient however started to have increasing difficulties with some pain and swelling to the right lower extremity with some increasing erythema. He also became weaker and more confused than his baseline and the family brought him to hospital. The patient's daughter who provides this would cure noticed that his feet are swollen bilaterally and the right leg was more erythematous than it had been. The patient himself is sitting upright in the chair. His legs dependent position apparently is a been through part of the day. He was able to eat his dinner but remains a poor historian but is not significantly confused at this point in time. 11/28/2017 patient is feeling better today. He again is sitting upright with his legs in the dependent position. However he has LINDA hose in place with some improvement in the edema. He voices no other acute complaints and believes that he goes back to his usual insulin at home he will be just fine. We discussed that his regimen at home was obviously not working well. He was having a few episodes of hypoglycemia, and he had significant hypoglycemia resulting in his hospitalization. He does seem to acknowledge this and may be willing to have a change in his insulin regimen at home. Objective - Vital Signs Vital signs: Vital Signs Temp 97.6 F 11/28/17 15:33 Pulse 68 11/28/17 19:15 Resp 16 11/28/17 15:33 BP 116/48 11/28/17 15:33 Pulse Ox 96 11/28/17 15:33 Intake & Output 11/28/17 11/28/17 11/29/17 06:59 18:59 06:59 Intake Total 600 Output Total 900 700 400 Balance -900 -100 -400 Intake: Oral 600 Output: Urine 900 700 400 Other: Voiding Method Toilet # Voids 2 1 1 # Bowel Movements 0 - Exam Pleasant elderly male, sitting upright in the chair legs dependent position., seems comfortable, family is present and voice complaints for him the patient himself again relates he feels relatively well HEENT: Anicteric conjunctiva are pink and moist nasal mucosa grossly intact without significant lesions, there is no thrush. Neck: The neck is supple without significant lymphadenopathy or thyromegaly. Lungs: There are symmetrical air entry, few crackles at the bases no bronchial sounds Heart: Irregularly irregular with an audible S1 and S2 soft S4 no murmur click or rub Abdomen: Obese, Positive bowel sounds soft and nontender without palpable masses or organomegaly. There was no guarding or rebound. Extremities: The upper extremities have excellent pulses they are symmetric, no significant petechiae or telangiectasia. No splinter hemorrhages were noted. Lower extremities have evidence of minimal edema. The right great toe plantar surface has area of a chronic callus without current ulceration. There is no expressible purulence. There is evidence of ascending erythema. The site however is nontender. His skin is dry and scaly no significant open ulcerations are seen. 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 The family is concerned about a foreign body however review of x-ray shows some present since 2017. Neuro: Awake alert oriented to person place and time. 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 - Labs CBC & Chem 7: 11/28/17 09:16 11/28/17 09:16 Labs: Abnormal Lab Results - Last 24 Hours (Table) 11/28/17 11/28/17 11/28/17 Range/Units 02:02 07:22 09:16 WBC 13.9 H (3.8-10.6) k/uL RBC 4.18 L (4.30-5.90) m/uL Hgb 8.5 L (13.0-17.5) gm/dL Hct 29.2 L (39.0-53.0) % MCV 70.0 L (80.0-100.0) fL MCH 20.3 L (25.0-35.0) pg MCHC 29.0 L (31.0-37.0) g/dL RDW 21.5 H (11.5-15.5) % Plt Count 453 H (150-450) k/uL Neutrophils # (Manual) 11.12 H (1.3-7.7) k/uL Sodium (137-145) mmol/L Chloride (98-107) mmol/L BUN (9-20) mg/dL Glucose (74-99) mg/dL POC Glucose (mg/dL) 222 H 247 H (75-99) mg/dL Total Protein (6.3-8.2) g/dL 11/28/17 11/28/17 11/28/17 Range/Units 09:16 11:05 16:51 WBC (3.8-10.6) k/uL RBC (4.30-5.90) m/uL Hgb (13.0-17.5) gm/dL Hct (39.0-53.0) % MCV (80.0-100.0) fL MCH (25.0-35.0) pg MCHC (31.0-37.0) g/dL RDW (11.5-15.5) % Plt Count (150-450) k/uL Neutrophils # (Manual) (1.3-7.7) k/uL Sodium 134 L (137-145) mmol/L Chloride 95 L (98-107) mmol/L BUN 23 H (9-20) mg/dL Glucose 299 H (74-99) mg/dL POC Glucose (mg/dL) 325 H 272 H (75-99) mg/dL Total Protein 5.9 L (6.3-8.2) g/dL 11/28/17 Range/Units 20:53 WBC (3.8-10.6) k/uL RBC (4.30-5.90) m/uL Hgb (13.0-17.5) gm/dL Hct (39.0-53.0) % MCV (80.0-100.0) fL MCH (25.0-35.0) pg MCHC (31.0-37.0) g/dL RDW (11.5-15.5) % Plt Count (150-450) k/uL Neutrophils # (Manual) (1.3-7.7) k/uL Sodium (137-145) mmol/L Chloride (98-107) mmol/L BUN (9-20) mg/dL Glucose (74-99) mg/dL POC Glucose (mg/dL) 101 H (75-99) mg/dL Total Protein (6.3-8.2) g/dL Laboratory Results WBC 13.9 k/uL (3.8-10.6) H 11/28/17 09:16 RBC 4.18 m/uL (4.30-5.90) L 11/28/17 09:16 Hgb 8.5 gm/dL (13.0-17.5) L 11/28/17 09:16 Hct 29.2 % (39.0-53.0) L 11/28/17 09:16 MCV 70.0 fL (80.0-100.0) L 11/28/17 09:16 MCH 20.3 pg (25.0-35.0) L 11/28/17 09:16 MCHC 29.0 g/dL (31.0-37.0) L 11/28/17 09:16 RDW 21.5 % (11.5-15.5) H 11/28/17 09:16 Plt Count 453 k/uL (150-450) H 11/28/17 09:16 Neutrophils % 84 % 11/27/17 08:44 Neutrophils % (Manual) 80 % 11/28/17 09:16 Band Neutrophils % 1 % 11/25/17 09:24 Lymphocytes % 7 % 11/27/17 08:44 Lymphocytes % (Manual) 10 % 11/28/17 09:16 Monocytes % 5 % 11/27/17 08:44 Monocytes % (Manual) 5 % 11/28/17 09:16 Eosinophils % 3 % 11/27/17 08:44 Eosinophils % (Manual) 5 % 11/28/17 09:16 Basophils % 0 % 11/27/17 08:44 Basophils % (Manual) 1 % 11/25/17 09:24 Neutrophils # 11.0 k/uL (1.3-7.7) H 11/27/17 08:44 Neutrophils # (Manual) 11.12 k/uL (1.3-7.7) H 11/28/17 09:16 Lymphocytes # 0.9 k/uL (1.0-4.8) L 11/27/17 08:44 Lymphocytes # (Manual) 1.39 k/uL (1.0-4.8) 11/28/17 09:16 Monocytes # 0.6 k/uL (0-1.0) 11/27/17 08:44 Monocytes # (Manual) 0.70 k/uL (0-1.0) 11/28/17 09:16 Eosinophils # 0.4 k/uL (0-0.7) 11/27/17 08:44 Eosinophils # (Manual) 0.70 k/uL (0-0.7) 11/28/17 09:16 Basophils # 0.1 k/uL (0-0.2) 11/27/17 08:44 Basophils # (Manual) 0.15 k/uL (0-0.2) 11/25/17 09:24 Nucleated RBCs 0 /100 WBC (0-0) 11/28/17 09:16 Manual Slide Review Performed 11/28/17 09:16 Hypochromasia Marked 11/28/17 09:16 Poikilocytosis Moderate 11/28/17 09:16 Anisocytosis Moderate 11/28/17 09:16 Microcytosis Marked 11/28/17 09:16 Spherocytes Present 11/26/17 06:55 Target Cells Present 11/28/17 09:16 Henriquez-Lolita Bodies Present 11/26/17 06:55 Crenated Cell Present 11/28/17 09:16 Fragmented RBCs Present 11/28/17 09:16 PT 11.7 sec (9.0-12.0) 11/25/17 01:11 INR 1.2 (<1.2) H 11/25/17 01:11 APTT 25.6 sec (22.0-30.0) 11/25/17 01:11 Sodium 134 mmol/L (137-145) L 11/28/17 09:16 Potassium 5.0 mmol/L (3.5-5.1) 11/28/17 09:16 Chloride 95 mmol/L (98-107) L 11/28/17 09:16 Carbon Dioxide 26 mmol/L (22-30) 11/28/17 09:16 Anion Gap 13 mmol/L 11/28/17 09:16 BUN 23 mg/dL (9-20) H 11/28/17 09:16 Creatinine 1.07 mg/dL (0.66-1.25) 11/28/17 09:16 Est GFR (CKD-EPI)AfAm 76 (>60 ml/min/1.73 sqM) 11/28/17 09:16 Est GFR (CKD-EPI)NonAf 66 (>60 ml/min/1.73 sqM) 11/28/17 09:16 Glucose 299 mg/dL (74-99) H 11/28/17 09:16 POC Glucose (mg/dL) 101 mg/dL (75-99) H 11/28/17 20:53 POC Glu Cotton Factor ID Qiana [place] 11/28/17 20:[address] Glu mg/dL 206 11/25/17 09:24 Hemoglobin A1c 8.8 % (4.0-6.0) H 11/25/17 09:24 Plasma Lactic Acid Dean 1.6 mmol/L (0.7-2.0) 11/25/17 01:11 Calcium 8.6 mg/dL (8.4-10.2) 11/28/17 09:16 Phosphorus 3.5 mg/dL (2.5-4.5) 11/25/17 01:11 Magnesium 2.1 mg/dL (1.6-2.3) 11/26/17 06:55 Total Bilirubin 0.5 mg/dL (0.2-1.3) 11/28/17 09:16 AST 25 U/L (17-59) 11/28/17 09:16 ALT 41 U/L (21-72) 11/28/17 09:16 Alkaline Phosphatase 89 U/L (38-126) 11/28/17 09:16 Total Creatine Kinase 118 U/L (55-170) 11/25/17 01:11 CK-MB (CK-2) 7.9 ng/mL (0.0-2.4) H* 11/25/17 01:11 CK-MB (CK-2) Rel Index 6.7 11/25/17 01:11 Troponin I 0.019 ng/mL (0.000-0.034) 11/25/17 01:11 NT-Pro-B Natriuret Pep 2650 pg/mL 11/25/17 09:24 Total Protein 5.9 g/dL (6.3-8.2) L 11/28/17 09:16 Albumin 3.5 g/dL (3.5-5.0) 11/28/17 09:16 TSH 0.630 mIU/L (0.465-4.680) 11/25/17 01:11 Urine Color Light Yellow 11/25/17 04:07 Urine Appearance Clear (Clear) 11/25/17 04:07 Urine pH 6.0 (5.0-8.0) 11/25/17 04:07 Ur Specific [place] 1.008 (1.001-1.035) 11/25/17 04:07 Urine Protein Trace (Negative) H 11/25/17 04:07 Urine Glucose (UA) 3+ (Negative) H 11/25/17 04:07 Urine Ketones Negative (Negative) 11/25/17 04:07 Urine Blood Negative (Negative) 11/25/17 04:07 Urine Nitrite Negative (Negative) 11/25/17 04:07 Urine Bilirubin Negative (Negative) 11/25/17 04:07 Urine Urobilinogen <2.0 mg/dL (<2.0) 11/25/17 04:07 Ur Leukocyte Esterase Negative (Negative) 11/25/17 04:07 Stool Occult Blood Negative (Negative) 11/25/17 11:20 Acetone, Qual Negative (Negative) 11/25/17 01:11 Blood Type A Negative 11/25/17 09:24 Blood Type Recheck No 11/25/17 09:24 Antibody Screen NEGATIVE 11/25/17 09:24 Crossmatch See Detail 11/25/17 09:24 Spec Expiration Date 11/28/2017 - 4333 11/25/17 09:24 Microbiology 11/25/17 04:07 Urine,Voided Urine Culture - Final - Imaging and Cardiology Chest x-ray: report reviewed (Retrocardiac infiltrate) Assessment and Plan (1) Cellulitis of right leg Narrative/Plan: 82-year-old male with a long-standing history of multiple medical problems that includes his recent hospitalization with his non-ST elevated myocardial infarction in his significant anemia that appears to be blood loss basis. He is due for an outpatient endoscopy on December 07. He received 2 units of packed red cells during his last stay. The patient is fatigued and not feeling well but does not feel as ill as he did during the last stay. He has not developed evidence of cellulitis to the right lower extremity. He does have the chronic callus area that is without open drainage at this point in time. Is an area of injury to the right lateral ankle that is healed with no purulence. No other sites of direct open entry are seen for the cellulitis right leg. At this time is doing somewhat better but needs to elevate the legs. This is emphasized with the family so he is done with his meals to get back in the bed to elevate his legs to help with the edema and the secondary cellulitis. The duplex feels evidence of deep venous thrombosis left leg at this time. Improved skin care will help with the dryness potential portals of infection into the lower extremities. There is evidence of the anemia a mild leukocytosis and thrombocytosis. Appear to be somewhat reactive in nature to his significant anemia The chest x-ray showing evidence of the new retrocardiac opacity concerns pneumonia however heart failure remains of concern especially given his recent myocardial infarction in his significant anemia. Antibiotic therapy appears to be appropriate this time, however if the right leg erythema does not rapidly improve within need to consider the addition of vancomycin. 11/28/2017 reveals the patient to be showing some further improvement. Overall is feeling somewhat better. His shortness of breath is improving, he does appear to be a candidate for home oxygen therapy at this time. He has ongoing fatigue but does have a significant anemia pending his outpatient endoscopic evaluation 12/07/2017. To further evaluate the etiology of his gastrointestinal bleeding. Once his anemia is improved we'll expect his shortness of breath to be improved. If he has further improvement and is being ready for discharge ulceration of his antibiotic therapy to cefuroxime 500 mg every 12 hours to complete 7 days of therapy for his pneumonia which could be gram-negative should be adequate. The cellulitis lower extremity showed marked improvement already. Elevation of his limbs and compression with his LINDA hose is suggested he however struggles with elevation. Current Visit: Yes Status: Acute Code(s): L03.115 - CELLULITIS OF RIGHT LOWER LIMB SNOMED Code(s): 062303816 (2) Encephalopathy in sepsis Current Visit: Yes Status: Acute Code(s): G93.41 - METABOLIC ENCEPHALOPATHY SNOMED Code(s): 173209252 (3) Anemia, blood loss Current Visit: Yes Status: Acute Code(s): D50.0 - IRON DEFICIENCY ANEMIA SECONDARY TO BLOOD LOSS (CHRONIC) SNOMED Code(s): 386156926
[2017-11-29 02:51] LABS: Glucose,Whole Blood 252 mg/dL (75-99)
[2017-11-29] MEDS: ALBUTEROL NEBULIZED 2.5 MG/3 ML INHALATION SCH ×3 (07:27→19:33)
[2017-11-29 07:37] LABS: Glucose,Whole Blood 269 mg/dL (75-99)
[2017-11-29] MEDS: POLYETHYLENE GLYCOL 3350 17 GM POWD.PACK PO SCH (07:38)
[2017-11-29] MEDS: CYANOCOBALAMIN 500 MCG TAB PO SCH (07:41)
[2017-11-29] MEDS: LISINOPRIL 5 MG TAB PO SCH (07:41)
[2017-11-29] MEDS: POTASSIUM CHLORIDE ER 20 MEQ TAB.ER PO SCH (07:41)
[2017-11-29] MEDS: SILDENAFIL 20 MG TAB PO SCH ×3 (07:41→21:17)
[2017-11-29] MEDS: PANTOPRAZOLE 40 MG TABLET PO SCH (07:41)
[2017-11-29] MEDS: FUROSEMIDE 40 MG TAB PO SCH ×2 (07:41→15:02)
[2017-11-29] MEDS: MAGNESIUM OXIDE 400 MG TAB PO SCH (07:41)
[2017-11-29] MEDS: INSULIN ASPART 100 UNIT/ML 1 ML 10 ML VIAL SQ SCH ×7 (07:42→21:13)
[2017-11-29] MEDS: AZITHROMYCIN 500 MG TAB PO SCH (07:42)
[2017-11-29] MEDS: ENOXAPARIN 40 MG/0.4 ML SYRINGE SQ SCH (07:42)
[2017-11-29] MEDS: cefTRIAXone IN SWFI 1,000 MG/10 ML SYRINGE IVP SCH (07:42)
[2017-11-29] MEDS: amLODIPine 10 MG TAB PO SCH (08:00)
[2017-11-29 08:35] LABS: Anisocytosis Moderate; HCT 28.6 % (39.0-53.0); HGB 8.4 gm/dL (13.0-17.5); Hypochromasia Marked; MCH 20.9 pg (25.0-35.0); MCHC 29.5 g/dL (31.0-37.0); MCV 71.1 fL (80.0-100.0); Mean Platelet Volume 6.6; Microcytosis Marked; Platelet Count 555 k/uL (150-450); Poikilocytosis Marked; RBC 4.02 m/uL (4.30-5.90); RDW 21.4 % (11.5-15.5)
[2017-11-29 08:40] LABS: Albumin 3.8 g/dL (3.5-5.0); Potassium 5.1 mmol/L (3.5-5.1); Total Bilirubin 0.5 mg/dL (0.2-1.3); Total Protein 6.3 g/dL (6.3-8.2)
[2017-11-29 09:26] LABS: Eosinophils # (M) 0.26 k/uL (0-0.7); Lymphocytes # (M) 1.18 k/uL (1.0-4.8); Monocytes # (M) 0.52 k/uL (0-1.0); Neutrophils # (M) 11.14 k/uL (1.3-7.7); Neutrophils % (M) 85 %; Nucleated Red Blood Cells 1 /100 WBC (0-0); Poikilocytosis (M) Present; Total Cells Counted 100; WBC 13.1 k/uL (3.8-10.6)
[2017-11-29 09:27] LABS: Crenated RBC Present; Large Platelets Present; Polychromasia Present; Target Cells Present
[2017-11-29 09:30] LABS: Basophilic Stippling Present; RBC Fragments Present
--- NOTE | 2017-11-29 10:52 | P.PN ---
Subjective Progress Note Date: 11/29/17 This is a 82-year-old male well-known to my partner Dr. Quesada and rods seen on multiple occasions as well, who presented to the emergency room with a chief complaint of confusion, fatigue, weakness, and wound to his great right toe. Patient states over the last few weeks he has felt increasing more weak. patient believes he took too much insulin last night and did not eat. Patient's brought in by EMS to the ER where he is worked up. He was given glucose, but his sugar did not return to normal quickly. He was recently here for hospital stay November 12 to November 15. He was seen by Dr. Lr, Dr. Chong, Dr. Loza. He received a transfusion for symptomatic anemia. He was treated for his diabetic foot ulcer, which is now callused over , and evaluated for abnormal troponins and a non-ST elevated myocardial infarction. He also believed he had some underlying congestive heart failure. Currently he is awake and alert, his daughter and is at bedside. He continues to complain of fatigue and shortness of breath with exertion, that is abnormal for him typically. He has an extensive medical history of atrial fibrillation, anticoagulation, type insulin dependent diabetes mellitus, recent symptomatic anemia of unknown origin, renal carcinoma with nephrectomy, partial pancreatectomy and splenectomy, 11/26/2017: Patient feels slightly better. He is status post 1 unit packed red blood cells. Hemoglobin is now 8.4. He has developed a worsening leukocytosis as well. WBC count is now 16.1. There is 14.65 absolute neutrophils. Continues to have shortness of breath with exertion, but it is better. He remains on liters of oxygen via nasal cannula. I discussed his case with Dr. Ambriz. He feels he is not in overt heart failure, and that his shortness of breath is multifactorial. He does have significant other factors including a significantly elevated pulmonary hypertension. GI has seen him, and is planning EGD colonoscopy. His is at bedside today. All his questions were answered to the best of my ability with the current information available. We discussed his ongoing Mayen grade 3 diabetic ulcer and its treatment. Yesterday's exam failed to show significant abnormality, but he may have an occult osteomyelitis. X-ray done on November 12 failed to show any suspicious changes of acute osteomyelitis. There was evidence of a foreign body in this toe. Above notes per Dr. Key 11/27/2017 Patient seen and examined on rounds with Dr. Key. Patient is awake and alert. Sitting up in the chair. Chest xray this morning reveals new retrocardiac opacity. Mild pulmonary vascular congestion remains, likely on the basis of improving congestive heart failure. Dr. Key discussed case with Dr. Ambriz. Dr. Key inquired about beginning the patient on Sildenafil secondary to patients hypertension. Dr. Ambriz stated we could trial the patient on it to see if there is any improvement in his symptoms. Imdur has been discontinued per Dr. Key secondary to initiation of Sildenafil. Patients hemoglobin remains stable at 8.4. He denies any blood in his stools. GI is following and anticipate EGD and colonoscopy in the near future. WBC is down to 13.1 today. The patient remains on zithromax and rocephin. Patient with low grade temp of 99.1 last night. He is afebrile this morning. Dr. Loza is on consult. He remains on 3L NC with oxygen saturations greater than 92%. Patient reports improvement in SOB. 11/28/2017 Patient seen and examined at the bedside. Patient reports he is feeling well this morning. He denies chest pain or pressure. Reports continued improvement in shortness of breath. He continues to require oxygen to maintain sats greater than 92%. Patient reports bowel movement yesterday. He states he has had had blood in his stools intermittently. Dr. Chong evaluated patient on 11/25/2017 and stated he would consider EGD and colonoscopy this admission when patient was more stable, however he was re-evaluated today by GI and now are going to complete EGD and colonoscopy outpatient on December 07. Bone scan completed 2017 was negative for osteomyelitis. Dr. Loza is following. 11/29/2017 Patient seen and examined at the bedside. Patient reports he is feeling well this morning. He denies chest pain or pressure. Patient states his shortness of breath has improved. Hemoglobin is stable at 8.4, was 8.5 yesterday. Patient to undergo outpatient EGD/colonoscopy. Telemetry reveals afib. Cardiology is on consult for possible run of vtach. Dr. Loza is following for infectious disease. He recommends Cefuroxime 500mg Q12 hours for 7 days at the time of discharge for possible pneumonia. Patient states he does not feel ready to be discharged today and would like to stay until tomorrow. Objective - Vital Signs Vital signs: Vital Signs Temp 97.0 F L 11/29/17 06:05 Pulse 73 11/29/17 07:37 Resp 16 11/29/17 06:05 BP 142/74 11/29/17 06:05 Pulse Ox 97 11/29/17 06:05 Intake & Output 11/28/17 11/29/17 11/29/17 18:59 06:59 18:59 Intake Total 600 Output Total 700 1150 Balance -100 -1150 Intake: Oral 600 Output: Urine 700 1150 Other: Voiding Method Toilet Toilet # Voids 1 3 # Bowel Movements 0 1 - Exam GENERAL: This is a 82-year-old male in no apparent distress at the time of examination. Pleasant and cooperative. HEENT: Head is atraumatic, normocephalic. Pupils are equal, round, and reactive to light. Sclerae anicteric. Conjunctivae are clear. Mucus membranes of the mouth are moist. Neck is supple. RESPIRATORY: Clear to ausculation, diminished. No wheezes, rales, or rhonchi. No use of accessory muscles. Patient maintaining oxygen saturation greater than 92%. No chest wall tenderness is noted on palpation or with deep breathing. CARDIOVASCULAR: Irregular rhythm. Monitor reveals atrial fibrillation. S1 and S2 noted. No JVD noted. No S3 or S4 noted. GASTROINTESTINAL: No distention noted. Abdomen soft and round. Normal active bowel sounds auscultated x 4 quadrants. No pain or tenderness noted upon palpation. INTEGUMENTARY: Wound to right great toe-no open skin, callused over. No cyanosis. No jaundice. No rashes noted. EXTREMITIES: 2+ peripheral pulses. No evidence of peripheral edema. No calf tenderness noted. NEUROLOGIC: Cranial nerves II-XII intact. PSYCHIATRIC: Awake, alert, and oriented X 3. Appropriate affect. Intact judgement and insight. - Labs CBC & Chem 7: 11/29/17 07:51 11/29/17 07:51 Labs: Abnormal Lab Results - Last 24 Hours (Table) 11/28/17 11/28/17 11/28/17 Range/Units 09:16 09:16 11:05 WBC (3.8-10.6) k/uL RBC (4.30-5.90) m/uL Hgb (13.0-17.5) gm/dL Hct (39.0-53.0) % MCV (80.0-100.0) fL MCH (25.0-35.0) pg MCHC (31.0-37.0) g/dL RDW (11.5-15.5) % Plt Count (150-450) k/uL Neutrophils # (Manual) 11.12 H (1.3-7.7) k/uL Nucleated RBCs (0-0) /100 WBC Sodium 134 L (137-145) mmol/L Chloride 95 L (98-107) mmol/L BUN 23 H (9-20) mg/dL Glucose 299 H (74-99) mg/dL POC Glucose (mg/dL) 325 H (75-99) mg/dL Total Protein 5.9 L (6.3-8.2) g/dL 11/28/17 11/28/17 11/29/17 Range/Units 16:51 20:53 02:49 WBC (3.8-10.6) k/uL RBC (4.30-5.90) m/uL Hgb (13.0-17.5) gm/dL Hct (39.0-53.0) % MCV (80.0-100.0) fL MCH (25.0-35.0) pg MCHC (31.0-37.0) g/dL RDW (11.5-15.5) % Plt Count (150-450) k/uL Neutrophils # (Manual) (1.3-7.7) k/uL Nucleated RBCs (0-0) /100 WBC Sodium (137-145) mmol/L Chloride (98-107) mmol/L BUN (9-20) mg/dL Glucose (74-99) mg/dL POC Glucose (mg/dL) 272 H 101 H 252 H (75-99) mg/dL Total Protein (6.3-8.2) g/dL 11/29/17 11/29/17 11/29/17 Range/Units 07:21 07:51 07:51 WBC 13.1 H (3.8-10.6) k/uL RBC 4.02 L (4.30-5.90) m/uL Hgb 8.4 L (13.0-17.5) gm/dL Hct 28.6 L (39.0-53.0) % MCV 71.1 L (80.0-100.0) fL MCH 20.9 L (25.0-35.0) pg MCHC 29.5 L (31.0-37.0) g/dL RDW 21.4 H (11.5-15.5) % Plt Count 555 H (150-450) k/uL Neutrophils # (Manual) 11.14 H (1.3-7.7) k/uL Nucleated RBCs 1 H (0-0) /100 WBC Sodium 136 L (137-145) mmol/L Chloride 95 L (98-107) mmol/L BUN 23 H (9-20) mg/dL Glucose 256 H (74-99) mg/dL POC Glucose (mg/dL) 269 H (75-99) mg/dL Total Protein (6.3-8.2) g/dL Assessment and Plan Plan: ASSESSMENT: Symptomatic anemia, suspect secondary to acute blood loss from GI source, status post transfusion of 1 unit RBC Paroxysmal atrial fibrillation, not on anticoagulation due to above Chronic systolic heart failure, EF 45% Diabetes mellitus, type II Hypoglycemia, present on admission, secondary to patient taking medications and then not eating, resolved Metabolic encephalopathy, secondary to hypoglycemia on admission, resolved Suspected gram negative pneumonia, per infectious disease 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 Appreciate recommendations and input Discontinue potassium supplement due to mild hyperkalemia. Repeat K in AM. GI on consult. EGD/colonoscopy now to be performed outpatient Monitor hemoglobin Continue antibiotics. Infectious disease on consult. Continue 17 units of novolog with meals. Continue sliding scale ACHS Increase Levemir to 60 units at HS due to continued hyperglycemia Home meds as appropriate Monitor labs GI prophylaxis: Protonix 40 mg PO Daily DVT prophylaxis: SCDs to bilateral LE Monitor vital signs and address as appropriate Discharge planning: Patient to return home when stable Further recommendations pending patient's course Possible discharge home tomorrow if patient remains stable Nurse practitioner note has been reviewed by physician. Signing provider agrees with the documented findings, assessment, and plan of care.
[2017-11-29 12:08] LABS: Glucose,Whole Blood 311 mg/dL (75-99)
--- NOTE | 2017-11-29 15:07 | P.PN ---
Subjective Mr. Carson is seen sitting up in the chair in no acute distress. We have been asked to see him again during this admission for an episode of non-sustained ventricular tachycardia on telemetry. This occurred this morning at 0650 and was asymptomatic per nursing staff. Telemetry indicates atirial fibrillation. He denies symptoms of chest pain, shortness of breath, dizziness or palpitations. Laboratory data reviewed, WBC 13.1, hemoglobin 8.4, platelets 555 , sodium 136, potassium 5.1, creatinine 1.15. Blood pressure 142/74 heart rate 66 afebrile and maintaining oxygen saturation on nasal cannula. Objective - Vital Signs Vital signs: Vital Signs Temp 97.0 F L 11/29/17 06:05 Pulse 75 11/29/17 13:32 Resp 16 11/29/17 06:05 BP 142/74 11/29/17 06:05 Pulse Ox 97 11/29/17 06:05 Intake & Output 11/28/17 11/29/17 11/29/17 18:59 06:59 18:59 Intake Total 600 Output Total 700 1150 Balance -100 -1150 Intake: Oral 600 Output: Urine 700 1150 Other: Voiding Method Toilet Toilet # Voids 1 3 3 # Bowel Movements 0 1 - Exam GENERAL: Well-appearing, well-nourished and in no acute distress. NECK: Supple without JVD or thyromegaly. LUNGS: Breath sounds clear to auscultation bilaterally. Respiration equal and unlabored. No wheezes, rales or rhonchi. HEART: Irregular rate and rhythm with systolic murmur at left sternal border, no rubs or gallops. S1 and S2 heard. EXTREMITIES: Normal range of motion, 1+ pitting bilateral lower extremity edema. No clubbing or cyanosis. Peripheral pulses intact. - Labs CBC & Chem 7: 11/29/17 07:51 11/29/17 07:51 Labs: Abnormal Lab Results - Last 24 Hours (Table) 11/28/17 11/28/17 11/29/17 Range/Units 16:51 20:53 02:49 WBC (3.8-10.6) k/uL RBC (4.30-5.90) m/uL Hgb (13.0-17.5) gm/dL Hct (39.0-53.0) % MCV (80.0-100.0) fL MCH (25.0-35.0) pg MCHC (31.0-37.0) g/dL RDW (11.5-15.5) % Plt Count (150-450) k/uL Neutrophils # (Manual) (1.3-7.7) k/uL Nucleated RBCs (0-0) /100 WBC Sodium (137-145) mmol/L Chloride (98-107) mmol/L BUN (9-20) mg/dL Glucose (74-99) mg/dL POC Glucose (mg/dL) 272 H 101 H 252 H (75-99) mg/dL 11/29/17 11/29/17 11/29/17 Range/Units 07:21 07:51 07:51 WBC 13.1 H (3.8-10.6) k/uL RBC 4.02 L (4.30-5.90) m/uL Hgb 8.4 L (13.0-17.5) gm/dL Hct 28.6 L (39.0-53.0) % MCV 71.1 L (80.0-100.0) fL MCH 20.9 L (25.0-35.0) pg MCHC 29.5 L (31.0-37.0) g/dL RDW 21.4 H (11.5-15.5) % Plt Count 555 H (150-450) k/uL Neutrophils # (Manual) 11.14 H (1.3-7.7) k/uL Nucleated RBCs 1 H (0-0) /100 WBC Sodium 136 L (137-145) mmol/L Chloride 95 L (98-107) mmol/L BUN 23 H (9-20) mg/dL Glucose 256 H (74-99) mg/dL POC Glucose (mg/dL) 269 H (75-99) mg/dL 11/29/17 Range/Units 12:06 WBC (3.8-10.6) k/uL RBC (4.30-5.90) m/uL Hgb (13.0-17.5) gm/dL Hct (39.0-53.0) % MCV (80.0-100.0) fL MCH (25.0-35.0) pg MCHC (31.0-37.0) g/dL RDW (11.5-15.5) % Plt Count (150-450) k/uL Neutrophils # (Manual) (1.3-7.7) k/uL Nucleated RBCs (0-0) /100 WBC Sodium (137-145) mmol/L Chloride (98-107) mmol/L BUN (9-20) mg/dL Glucose (74-99) mg/dL POC Glucose (mg/dL) 311 H (75-99) mg/dL Assessment and Plan Assessment: ASSESSMENT Non-sustained ventricular tachycardia, 7 beats Change in mental status which has improved. The patient was diagnosed with hypoglycemia Anemia likely to be blood loss anemia. Outpatient endoscopy recommended per GI. Known coronary artery disease and status post coronary artery that was grafting Paroxysmal atrial fibrillation, anticoagulation contraindicated secondary to current GI bleeding Mildly impaired LV function, chronic Aortic valve sclerosis Severe pulmonary hypertension, RVSP 89.09 mmHg Pneumonia COPD Diabetes mellitus PLAN Check magnesium level. Ongoing medical management. Follow up with Dr. Lr upon discharge. Nurse Practitioner note has been reviewed, I agree with a documented findings and plan of care. Patient was seen and examined.
[2017-11-29] MEDS ORDERED: FUROSEMIDE 10 MG/ML 2 ML VIAL IV ONE (15:21)
[2017-11-29] MEDS ORDERED: PEG 3350-NA SULF,BICARB,CL/KCL 4,000 ML BOTTLE PO ONE (15:22)
[2017-11-29 17:23] LABS: Glucose,Whole Blood 108 mg/dL (75-99)
--- NOTE | 2017-11-29 19:36 | P.GSCN ---
History of Present Illness Consult date: 11/29/17 History of present illness: This is an 82 year old male who has been found to have anemia and suspected lower GI bleed. He has multiple medical comorbidities. History of colonoscopy in 2012 which he states was normal. He also had an EGD in 2017 which did not show any signs of bleeding. Patient denies active bleeding at this time. He denies abdominal pain. Tolerating diet. Past Medical History Past Medical History: Coronary Artery Disease (CAD), Cancer, Heart Failure, COPD , CVA/TIA, Diabetes Mellitus, Eye Disorder, Hyperlipidemia, Hypertension, Myocardial Infarction (DE), Osteoarthritis (OA), Prostate Disorder, Sleep Apnea/ CPAP/BIPAP Additional Past Medical History / Comment(s): 2013 L renal cancer with surgery- partial nephrectomy/spleenectomy/distal portion of pancreas removed at [facility], IDDM type II, TIA, DE unknown date, BPH, gastritis, small hiatal hernia, past discitis T9-T10, arthritis bilateral hands/back, TARIQ-does not tolerate his CPAP, past R great toe ulcer/infection, bilateral laser eye surgery for "alittle leakage". Last Myocardial Infarction Date:: UNKNOWN History of Any Multi-Drug Resistant Organisms: MRSA Year Discovered:: 11/13/17 MDRO Source:: TOE Past Surgical History: Coronary Bypass/CABG, Heart Catheterization Additional Past Surgical History / Comment(s): partial L nephrectomy, distal pancreatectomy, splenectomy-at [facility], 2000 CABG-3 vessel, EGD, colonoscopy, deviated septum surgery, skin/oral lesion removals, R carpal tunnel release, bilateral cataract removal, bilateral laser eye surgery for "leakage" Past Anesthesia/Blood Transfusion Reactions: Previous Problems w/ Anesthesia Additional Past Anesthesia/Blood Transfusion Reaction / Comm: 'TROUBLE COMING OUT OF ANESTESIA' - DELUSIONAL. Pt has received blood in past without reaction. Past Psychological History: Anxiety, Depression Additional Psychological History / Comment(s): Pt resides with his spouse. He uses a cane or walker to ambulate. He no longer drives. His spouse drives and manages his medications. Smoking Status: Never smoker Past Alcohol Use History: None Reported Past Drug Use History: None Reported - Past Family History Father Family Medical History: Myocardial Infarction (DE) Mother Family Medical History: COPD Medications and Allergies Home Medications Medication Instructions Recorded Confirmed Type Insulin Detemir [Levemir Flextouch] 60 units SQ HS 12/21/14 11/25/17 History Montelukast [Singulair] 10 mg PO HS 12/21/14 11/25/17 History Insulin Aspart [NovoLOG Flexpen] 17 units SQ AC-TID 02/07/16 11/25/17 History Isosorbide Mononitrate ER [Imdur] 30 mg PO DAILY 02/07/16 11/25/17 History Magnesium Oxide [Mag-Ox] 250 mg PO DAILY 02/07/16 11/25/17 History Pravastatin Sodium 40 mg PO HS 02/07/16 11/25/17 History Zinc 50 mg PO DAILY 02/07/16 11/25/17 History Albuterol Nebulized [Ventolin 2.5 mg INHALATION RT-TID PRN 04/02/16 11/25/17 History Nebulized] Potassium Chloride ER [K-Dur 20] 20 meq PO BID 04/02/16 11/25/17 History [place]-3 Fatty Acids/Fish Oil [Fish 1 cap PO DAILY 08/13/16 11/25/17 History Oil 1,000 mg Softgel] Acetaminophen Tab [Tylenol] 500 - 1,000 mg PO Q6HR PRN 03/17/17 11/25/17 History Escitalopram [Lexapro] 20 mg PO DAILY 03/17/17 11/25/17 History Pantoprazole [Protonix] 40 mg PO DAILY #30 tab 03/21/17 11/25/17 Rx Cyanocobalamin [Vitamin B-12] 500 mcg PO MOWEFR 11/12/17 11/25/17 History Insulin Aspart [NovoLOG Flexpen] See Protocol SQ AC-TID PRN 11/12/17 11/25/17 History Polyethylene Glycol 3350 [Miralax] 17 gm PO DAILY 11/12/17 11/25/17 History Budesonide-Formot 160-4.5 Mcg 2 puff INHALATION RT-BID 11/13/17 11/25/17 History [Symbicort 160-4.5 Mcg Inhaler] Furosemide [Lasix] 40 mg PO BID@0900,1600 #60 tab 11/15/17 11/25/17 Rx Lisinopril [Zestril] 5 mg PO DAILY #30 tab 11/15/17 11/25/17 Rx amLODIPine [Norvasc] 10 mg PO DAILY #30 tab 11/15/17 11/25/17 Rx Allergies Allergy/AdvReac Type Severity Reaction Status Date / Time Penicillins Allergy Unknown Rash/Hives Verified 11/25/17 10:59 atorvastatin calcium Allergy Unknown Verified 11/25/17 10:59 [From Lipitor] clonazepam [From Klonopin] Allergy Hallucinati Verified 11/25/17 10:59 ons codeine Allergy Hallucinati Verified 11/25/17 10:59 ons haloperidol [From Haldol] Allergy Hallucinati Verified 11/25/17 10:59 ons haloperidol lactate Allergy Hallucinati Verified 11/25/17 10:59 [From Haldol] ons hydromorphone HCl Allergy Hallucinati Verified 11/25/17 10:59 [From Dilaudid] ons methylphenidate HCl Allergy Hallucinati Verified 11/25/17 10:59 [From Ritalin] ons morphine Allergy Hallucinati Verified 11/25/17 10:59 ons propofol Allergy Hallucinati Verified 11/25/17 10:59 ons quetiapine fumarate Allergy Hallucinati Verified 11/25/17 10:59 [From Seroquel] ons Sulfa (Sulfonamide Allergy Unknown Verified 11/25/17 10:59 Antibiotics) vancomycin Allergy Unknown Verified 11/25/17 10:59 ativan AdvReac Unknown Uncoded 11/25/17 01:13 Surgical - Exam Osteopathic Statement: *. No significant issues noted on an osteopathic structural exam other than those noted in the History and Physical/Consult. Vital Signs Temp Pulse Resp BP Pulse Ox 98.3 F 66 16 142/68 93 L 11/25/17 01:10 11/25/17 01:10 11/25/17 01:10 11/25/17 01:10 11/25/17 01:10 - General well developed, well nourished, no distress - Neck trachea midline - Respiratory normal expansion, normal respiratory effort - Cardiovascular afib - Abdomen Abdomen: soft, non tender - Neurologic normal coordination, normal sensation - Psychiatric oriented to time, oriented to person, oriented to place Results - Labs 11/29/17 07:51 11/29/17 07:51 Abnormal Lab Results - Last 24 Hours (Table) 11/28/17 11/29/17 11/29/17 Range/Units 20:53 02:49 07:21 WBC (3.8-10.6) k/uL RBC (4.30-5.90) m/uL Hgb (13.0-17.5) gm/dL Hct (39.0-53.0) % MCV (80.0-100.0) fL MCH (25.0-35.0) pg MCHC (31.0-37.0) g/dL RDW (11.5-15.5) % Plt Count (150-450) k/uL Neutrophils # (Manual) (1.3-7.7) k/uL Nucleated RBCs (0-0) /100 WBC Sodium (137-145) mmol/L Chloride (98-107) mmol/L BUN (9-20) mg/dL Glucose (74-99) mg/dL POC Glucose (mg/dL) 101 H 252 H 269 H (75-99) mg/dL Crossmatch 11/29/17 11/29/17 11/29/17 Range/Units 07:51 07:51 12:06 WBC 13.1 H (3.8-10.6) k/uL RBC 4.02 L (4.30-5.90) m/uL Hgb 8.4 L (13.0-17.5) gm/dL Hct 28.6 L (39.0-53.0) % MCV 71.1 L (80.0-100.0) fL MCH 20.9 L (25.0-35.0) pg MCHC 29.5 L (31.0-37.0) g/dL RDW 21.4 H (11.5-15.5) % Plt Count 555 H (150-450) k/uL Neutrophils # (Manual) 11.14 H (1.3-7.7) k/uL Nucleated RBCs 1 H (0-0) /100 WBC Sodium 136 L (137-145) mmol/L Chloride 95 L (98-107) mmol/L BUN 23 H (9-20) mg/dL Glucose 256 H (74-99) mg/dL POC Glucose (mg/dL) 311 H (75-99) mg/dL Crossmatch 11/29/17 11/29/17 Range/Units 16:57 17:11 WBC (3.8-10.6) k/uL RBC (4.30-5.90) m/uL Hgb (13.0-17.5) gm/dL Hct (39.0-53.0) % MCV (80.0-100.0) fL MCH (25.0-35.0) pg MCHC (31.0-37.0) g/dL RDW (11.5-15.5) % Plt Count (150-450) k/uL Neutrophils # (Manual) (1.3-7.7) k/uL Nucleated RBCs (0-0) /100 WBC Sodium (137-145) mmol/L Chloride (98-107) mmol/L BUN (9-20) mg/dL Glucose (74-99) mg/dL POC Glucose (mg/dL) 108 H (75-99) mg/dL Crossmatch See Detail Diabetes panel 11/29/17 Range/Units 07:51 Sodium 136 L (137-145) mmol/L Potassium 5.1 (3.5-5.1) mmol/L Chloride 95 L (98-107) mmol/L Carbon Dioxide 28 (22-30) mmol/L BUN 23 H (9-20) mg/dL Creatinine 1.15 (0.66-1.25) mg/dL Glucose 256 H (74-99) mg/dL Calcium 9.0 (8.4-10.2) mg/dL AST 24 (17-59) U/L ALT 39 (21-72) U/L Alkaline Phosphatase 94 (38-126) U/L Total Protein 6.3 (6.3-8.2) g/dL Albumin 3.8 (3.5-5.0) g/dL Calcium panel 11/29/17 Range/Units 07:51 Calcium 9.0 (8.4-10.2) mg/dL Albumin 3.8 (3.5-5.0) g/dL Pituitary panel 11/29/17 Range/Units 07:51 Sodium 136 L (137-145) mmol/L Potassium 5.1 (3.5-5.1) mmol/L Chloride 95 L (98-107) mmol/L Carbon Dioxide 28 (22-30) mmol/L BUN 23 H (9-20) mg/dL Creatinine 1.15 (0.66-1.25) mg/dL Glucose 256 H (74-99) mg/dL Calcium 9.0 (8.4-10.2) mg/dL Adrenal panel 11/29/17 Range/Units 07:51 Sodium 136 L (137-145) mmol/L Potassium 5.1 (3.5-5.1) mmol/L Chloride 95 L (98-107) mmol/L Carbon Dioxide 28 (22-30) mmol/L BUN 23 H (9-20) mg/dL Creatinine 1.15 (0.66-1.25) mg/dL Glucose 256 H (74-99) mg/dL Calcium 9.0 (8.4-10.2) mg/dL Total Bilirubin 0.5 (0.2-1.3) mg/dL AST 24 (17-59) U/L ALT 39 (21-72) U/L Alkaline Phosphatase 94 (38-126) U/L Total Protein 6.3 (6.3-8.2) g/dL Albumin 3.8 (3.5-5.0) g/dL Assessment and Plan Assessment: Anemia/GI bleed of unknown origin Plan: Plan is for colonoscopy. Patient will be NPO after midnight and prepped tonight. If no source of bleeding is found patient will follow up with GI for capsule endoscopy. Plan was discussed with GI and Primary
[2017-11-29] MEDS: INSULIN DETEMIR 100 UNIT/ML 10 ML VIAL SQ SCH (21:13)
[2017-11-29] MEDS: MONTELUKAST 10 MG TAB PO SCH (21:17)
[2017-11-29] MEDS: MELATONIN 5 MG TABLET PO SCH (21:17)
[2017-11-29] MEDS: PRAVASTATIN SODIUM 40 MG TAB PO SCH (21:17)
[2017-11-29 21:36] LABS: Glucose,Whole Blood 55 mg/dL (75-99)
[2017-11-29 21:36] LABS: Glucose,Whole Blood 66 mg/dL (75-99)
[2017-11-29 21:49] LABS: Glucose,Whole Blood 92 mg/dL (75-99)
[2017-11-29 23:00] LABS: Glucose,Whole Blood 102 mg/dL (75-99)
--- NOTE | 2017-11-30 00:08 | P.PN ---
Subjective Progress Note Date: 11/29/17 82-year-old male who has multiple medical problems that includes a known history of underlying coronary artery disease, status post CABG and several cardiac catheterizations. 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 He is known to the wound healing Center because of nonhealing ulcerations to his feet partially due to difficulty with compliance to offloading and shoes. The patient now presents to hospital with his family with apparently many weeks of increasing symptoms. He's been having increasing weakness and some increasing amount of his baseline confusion. He was having greater difficulty ambulating and there was concern as to chronic ulceration to his foot. The patient was recently hospitalized with troponin time he was found non-Q-wave myocardial infarction as well as significant anemia. Patient did require blood transfusion. He was found to have evidence of significant anemia. He did require further evaluation and outpatient GI evaluation with endoscopy was planned on December 07. Patient however started to have increasing difficulties with some pain and swelling to the right lower extremity with some increasing erythema. He also became weaker and more confused than his baseline and the family brought him to hospital. The patient's daughter who provides this would cure noticed that his feet are swollen bilaterally and the right leg was more erythematous than it had been. The patient himself is sitting upright in the chair. His legs dependent position apparently is a been through part of the day. He was able to eat his dinner but remains a poor historian but is not significantly confused at this point in time. 11/28/2017 patient is feeling better today. He again is sitting upright with his legs in the dependent position. However he has LINDA hose in place with some improvement in the edema. He voices no other acute complaints and believes that he goes back to his usual insulin at home he will be just fine. We discussed that his regimen at home was obviously not working well. He was having a few episodes of hypoglycemia, and he had significant hypoglycemia resulting in his hospitalization. He does seem to acknowledge this and may be willing to have a change in his insulin regimen at home. 11/29/2017 patient is feeling somewhat better. He is getting prepped for his colonoscopy and with his worsening anemia has required further transfusion today Objective - Vital Signs Vital signs: Vital Signs Temp 97.4 F L 11/29/17 23:00 Pulse 67 11/29/17 23:00 Resp 16 11/29/17 23:00 BP 105/53 11/29/17 23:00 Pulse Ox 94 L 11/29/17 23:00 Intake & Output 11/29/17 11/29/17 11/30/17 06:59 18:59 06:59 Intake Total 460 Output Total 1150 450 Balance -1150 10 Intake: Oral 460 Blood Product 0 Rc As-1 Unit 0 [id number] Output: Urine 1150 450 Other: Voiding Method Toilet Urinal # Voids 3 3 # Bowel Movements 1 5 - Exam Pleasant elderly male, sitting upright in the chair legs dependent position., seems comfortable, family is present and voice complaints for him the patient himself again relates he feels relatively well HEENT: Anicteric conjunctiva are pink and moist nasal mucosa grossly intact without significant lesions, there is no thrush. Neck: The neck is supple without significant lymphadenopathy or thyromegaly. Lungs: There are symmetrical air entry, few crackles at the bases no bronchial sounds Heart: Irregularly irregular with an audible S1 and S2 soft S4 no murmur click or rub Abdomen: Obese, Positive bowel sounds soft and nontender without palpable masses or organomegaly. There was no guarding or rebound. Extremities: The upper extremities have excellent pulses they are symmetric, no significant petechiae or telangiectasia. No splinter hemorrhages were noted. Lower extremities have evidence of minimal edema. The right great toe plantar surface has area of a chronic callus without current ulceration. There is no expressible purulence. There is evidence of ascending erythema. The site however is nontender. His skin is dry and scaly no significant open ulcerations are seen. 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 The family is concerned about a foreign body however review of x-ray shows some present since 2017. Neuro: Awake alert oriented to person place and time. 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 - Labs CBC & Chem 7: 11/29/17 07:51 11/29/17 07:51 Labs: Abnormal Lab Results - Last 24 Hours (Table) 11/29/17 11/29/17 11/29/17 Range/Units 02:49 07:21 07:51 WBC 13.1 H (3.8-10.6) k/uL RBC 4.02 L (4.30-5.90) m/uL Hgb 8.4 L (13.0-17.5) gm/dL Hct 28.6 L (39.0-53.0) % MCV 71.1 L (80.0-100.0) fL MCH 20.9 L (25.0-35.0) pg MCHC 29.5 L (31.0-37.0) g/dL RDW 21.4 H (11.5-15.5) % Plt Count 555 H (150-450) k/uL Neutrophils # (Manual) 11.14 H (1.3-7.7) k/uL Nucleated RBCs 1 H (0-0) /100 WBC Sodium (137-145) mmol/L Chloride (98-107) mmol/L BUN (9-20) mg/dL Glucose (74-99) mg/dL POC Glucose (mg/dL) 252 H 269 H (75-99) mg/dL Crossmatch 11/29/17 11/29/17 11/29/17 Range/Units 07:51 12:06 16:57 WBC (3.8-10.6) k/uL RBC (4.30-5.90) m/uL Hgb (13.0-17.5) gm/dL Hct (39.0-53.0) % MCV (80.0-100.0) fL MCH (25.0-35.0) pg MCHC (31.0-37.0) g/dL RDW (11.5-15.5) % Plt Count (150-450) k/uL Neutrophils # (Manual) (1.3-7.7) k/uL Nucleated RBCs (0-0) /100 WBC Sodium 136 L (137-145) mmol/L Chloride 95 L (98-107) mmol/L BUN 23 H (9-20) mg/dL Glucose 256 H (74-99) mg/dL POC Glucose (mg/dL) 311 H (75-99) mg/dL Crossmatch See Detail 11/29/17 11/29/17 11/29/17 Range/Units 17:11 21:12 21:29 WBC (3.8-10.6) k/uL RBC (4.30-5.90) m/uL Hgb (13.0-17.5) gm/dL Hct (39.0-53.0) % MCV (80.0-100.0) fL MCH (25.0-35.0) pg MCHC (31.0-37.0) g/dL RDW (11.5-15.5) % Plt Count (150-450) k/uL Neutrophils # (Manual) (1.3-7.7) k/uL Nucleated RBCs (0-0) /100 WBC Sodium (137-145) mmol/L Chloride (98-107) mmol/L BUN (9-20) mg/dL Glucose (74-99) mg/dL POC Glucose (mg/dL) 108 H 55 L 66 L (75-99) mg/dL Crossmatch 11/29/17 Range/Units 22:57 WBC (3.8-10.6) k/uL RBC (4.30-5.90) m/uL Hgb (13.0-17.5) gm/dL Hct (39.0-53.0) % MCV (80.0-100.0) fL MCH (25.0-35.0) pg MCHC (31.0-37.0) g/dL RDW (11.5-15.5) % Plt Count (150-450) k/uL Neutrophils # (Manual) (1.3-7.7) k/uL Nucleated RBCs (0-0) /100 WBC Sodium (137-145) mmol/L Chloride (98-107) mmol/L BUN (9-20) mg/dL Glucose (74-99) mg/dL POC Glucose (mg/dL) 102 H (75-99) mg/dL Crossmatch Assessment and Plan (1) Cellulitis of right leg Narrative/Plan: 82-year-old male with a long-standing history of multiple medical problems that includes his recent hospitalization with his non-ST elevated myocardial infarction in his significant anemia that appears to be blood loss basis. He is due for an outpatient endoscopy on December 07. He received 2 units of packed red cells during his last stay. The patient is fatigued and not feeling well but does not feel as ill as he did during the last stay. He has not developed evidence of cellulitis to the right lower extremity. He does have the chronic callus area that is without open drainage at this point in time. Is an area of injury to the right lateral ankle that is healed with no purulence. No other sites of direct open entry are seen for the cellulitis right leg. At this time is doing somewhat better but needs to elevate the legs. This is emphasized with the family so he is done with his meals to get back in the bed to elevate his legs to help with the edema and the secondary cellulitis. The duplex feels evidence of deep venous thrombosis left leg at this time. Improved skin care will help with the dryness potential portals of infection into the lower extremities. There is evidence of the anemia a mild leukocytosis and thrombocytosis. Appear to be somewhat reactive in nature to his significant anemia The chest x-ray showing evidence of the new retrocardiac opacity concerns pneumonia however heart failure remains of concern especially given his recent myocardial infarction in his significant anemia. Antibiotic therapy appears to be appropriate this time, however if the right leg erythema does not rapidly improve within need to consider the addition of vancomycin. 11/28/2017 reveals the patient to be showing some further improvement. Overall is feeling somewhat better. His shortness of breath is improving, he does appear to be a candidate for home oxygen therapy at this time. He has ongoing fatigue but does have a significant anemia pending his outpatient endoscopic evaluation 12/07/2017. To further evaluate the etiology of his gastrointestinal bleeding. Once his anemia is improved we'll expect his shortness of breath to be improved. If he has further improvement and is being ready for discharge ulceration of his antibiotic therapy to cefuroxime 500 mg every 12 hours to complete 7 days of therapy for his pneumonia which could be gram-negative should be adequate. The cellulitis lower extremity showed marked improvement already. Elevation of his limbs and compression with his LINDA hose is suggested he however struggles with elevation. 11/29/2017 patient has had some improvement in that his cellulitis to his leg is improved. However his ongoing anemia and there is plans for his colonoscopy performed during this stay because of his ongoing anemia and requirement for blood transfusion today. When ready by therapy will be completed with cefuroxime Current Visit: Yes Status: Acute Code(s): L03.115 - CELLULITIS OF RIGHT LOWER LIMB SNOMED Code(s): 032808658 (2) Encephalopathy in sepsis Current Visit: Yes Status: Acute Code(s): G93.41 - METABOLIC ENCEPHALOPATHY SNOMED Code(s): 223196012 (3) Anemia, blood loss Current Visit: Yes Status: Acute Code(s): D50.0 - IRON DEFICIENCY ANEMIA SECONDARY TO BLOOD LOSS (CHRONIC) SNOMED Code(s): 021444545
[2017-11-30 02:02] LABS: Anisocytosis Moderate; Basophils # (A) 0.1 k/uL (0-0.2); Basophils % (A) 1 %; Eosinophils # (A) 0.4 k/uL (0-0.7); Eosinophils % (A) 3 %; HGB 9.7 gm/dL (13.0-17.5); Hypochromasia Marked; Lymphocytes # (A) 1.2 k/uL (1.0-4.8); Lymphocytes % (A) 9 %; MCH 21.7 pg (25.0-35.0); MCHC 30.3 g/dL (31.0-37.0); MCV 71.5 fL (80.0-100.0); Mean Platelet Volume 9.8; Microcytosis Marked; Monocytes # (A) 1.5 k/uL (0-1.0); Monocytes % (A) 11 %; Neutrophils # (A) 10.3 k/uL (1.3-7.7); Neutrophils % (A) 75 %; Platelet Count 559 k/uL (150-450); Poikilocytosis Moderate; RBC 4.47 m/uL (4.30-5.90); WBC 13.8 k/uL (3.8-10.6)
[2017-11-30 02:22] LABS: Glucose,Whole Blood 119 mg/dL (75-99)
[2017-11-30] MEDS: ALBUTEROL NEBULIZED 2.5 MG/3 ML INHALATION SCH ×3 (07:20→19:35)
[2017-11-30] MEDS: INSULIN ASPART 100 UNIT/ML 1 ML 10 ML VIAL SQ SCH ×7 (07:22→21:30)
[2017-11-30 07:23] LABS: Glucose,Whole Blood 174 mg/dL (75-99)
[2017-11-30] MEDS: POLYETHYLENE GLYCOL 3350 17 GM POWD.PACK PO SCH (07:38)
[2017-11-30] MEDS: cefTRIAXone IN SWFI 1,000 MG/10 ML SYRINGE IVP SCH (07:39)
[2017-11-30] MEDS: amLODIPine 10 MG TAB PO SCH (07:40)
[2017-11-30] MEDS: FUROSEMIDE 40 MG TAB PO SCH ×2 (07:40→15:18)
[2017-11-30] MEDS: LISINOPRIL 5 MG TAB PO SCH (07:40)
[2017-11-30] MEDS: SILDENAFIL 20 MG TAB PO SCH ×3 (07:42→21:30)
[2017-11-30] MEDS: ENOXAPARIN 40 MG/0.4 ML SYRINGE SQ SCH (07:49)
[2017-11-30] MEDS: PANTOPRAZOLE 40 MG TABLET PO SCH (08:31)
[2017-11-30 08:57] LABS: Anisocytosis Moderate; Basophils # (A) 0.1 k/uL (0-0.2); Basophils % (A) 0 %; Eosinophils # (A) 0.6 k/uL (0-0.7); Eosinophils % (A) 5 %; HCT 32.3 % (39.0-53.0); HGB 9.5 gm/dL (13.0-17.5); Hypochromasia Marked; Lymphocytes # (A) 1.2 k/uL (1.0-4.8); Lymphocytes % (A) 10 %; MCH 20.6 pg (25.0-35.0); MCHC 29.5 g/dL (31.0-37.0); MCV 69.7 fL (80.0-100.0); Mean Platelet Volume 7.3; Microcytosis Marked; Monocytes # (A) 0.9 k/uL (0-1.0); Monocytes % (A) 7 %; Neutrophils # (A) 9.9 k/uL (1.3-7.7); Neutrophils % (A) 76 %; Platelet Count 637 k/uL (150-450); Poikilocytosis Marked; RBC 4.63 m/uL (4.30-5.90); RDW 21.9 % (11.5-15.5); WBC 12.9 k/uL (3.8-10.6)
[2017-11-30 09:13] LABS: Albumin 3.8 g/dL (3.5-5.0); Calcium 8.9 mg/dL (8.4-10.2); Potassium 4.7 mmol/L (3.5-5.1); Total Bilirubin 0.7 mg/dL (0.2-1.3); Total Protein 6.2 g/dL (6.3-8.2)
--- NOTE | 2017-11-30 10:07 | P.PN ---
Subjective Progress Note Date: 11/30/17 This is a 82-year-old male well-known to my partner Dr. Quesada and rods seen on multiple occasions as well, who presented to the emergency room with a chief complaint of confusion, fatigue, weakness, and wound to his great right toe. Patient states over the last few weeks he has felt increasing more weak. patient believes he took too much insulin last night and did not eat. Patient's brought in by EMS to the ER where he is worked up. He was given glucose, but his sugar did not return to normal quickly. He was recently here for hospital stay November 12 to November 15. He was seen by Dr. Lr, Dr. Chong, Dr. Loza. He received a transfusion for symptomatic anemia. He was treated for his diabetic foot ulcer, which is now callused over , and evaluated for abnormal troponins and a non-ST elevated myocardial infarction. He also believed he had some underlying congestive heart failure. Currently he is awake and alert, his daughter and is at bedside. He continues to complain of fatigue and shortness of breath with exertion, that is abnormal for him typically. He has an extensive medical history of atrial fibrillation, anticoagulation, type insulin dependent diabetes mellitus, recent symptomatic anemia of unknown origin, renal carcinoma with nephrectomy, partial pancreatectomy and splenectomy, 11/26/2017: Patient feels slightly better. He is status post 1 unit packed red blood cells. Hemoglobin is now 8.4. He has developed a worsening leukocytosis as well. WBC count is now 16.1. There is 14.65 absolute neutrophils. Continues to have shortness of breath with exertion, but it is better. He remains on liters of oxygen via nasal cannula. I discussed his case with Dr. Ambriz. He feels he is not in overt heart failure, and that his shortness of breath is multifactorial. He does have significant other factors including a significantly elevated pulmonary hypertension. GI has seen him, and is planning EGD colonoscopy. His is at bedside today. All his questions were answered to the best of my ability with the current information available. We discussed his ongoing Mayen grade 3 diabetic ulcer and its treatment. Yesterday's exam failed to show significant abnormality, but he may have an occult osteomyelitis. X-ray done on November 12 failed to show any suspicious changes of acute osteomyelitis. There was evidence of a foreign body in this toe. Above notes per Dr. Key 11/27/2017 Patient seen and examined on rounds with Dr. Key. Patient is awake and alert. Sitting up in the chair. Chest xray this morning reveals new retrocardiac opacity. Mild pulmonary vascular congestion remains, likely on the basis of improving congestive heart failure. Dr. Key discussed case with Dr. Ambriz. Dr. Key inquired about beginning the patient on Sildenafil secondary to patients hypertension. Dr. Ambriz stated we could trial the patient on it to see if there is any improvement in his symptoms. Imdur has been discontinued per Dr. Key secondary to initiation of Sildenafil. Patients hemoglobin remains stable at 8.4. He denies any blood in his stools. GI is following and anticipate EGD and colonoscopy in the near future. WBC is down to 13.1 today. The patient remains on zithromax and rocephin. Patient with low grade temp of 99.1 last night. He is afebrile this morning. Dr. Loza is on consult. He remains on 3L NC with oxygen saturations greater than 92%. Patient reports improvement in SOB. 11/28/2017 Patient seen and examined at the bedside. Patient reports he is feeling well this morning. He denies chest pain or pressure. Reports continued improvement in shortness of breath. He continues to require oxygen to maintain sats greater than 92%. Patient reports bowel movement yesterday. He states he has had had blood in his stools intermittently. Dr. Chong evaluated patient on 11/25/2017 and stated he would consider EGD and colonoscopy this admission when patient was more stable, however he was re-evaluated today by GI and now are going to complete EGD and colonoscopy outpatient on December 07. Bone scan completed 2017 was negative for osteomyelitis. Dr. Loza is following. 11/29/2017 Patient seen and examined at the bedside. Patient reports he is feeling well this morning. He denies chest pain or pressure. Patient states his shortness of breath has improved. Hemoglobin is stable at 8.4, was 8.5 yesterday. Patient to undergo outpatient EGD/colonoscopy. Telemetry reveals afib. Cardiology is on consult for possible run of vtach. Dr. Loza is following for infectious disease. He recommends Cefuroxime 500mg Q12 hours for 7 days at the time of discharge for possible pneumonia. Patient states he does not feel ready to be discharged today and would like to stay until tomorrow. 11/30/2017 Patient seen and examined at the bedside. Patient is awake and alert. Patient received 1 unit RBC yesterday. Hemoglobin this morning is 9.5. Patient is scheduled for EGD and colonoscopy this morning with Dr. Campuzano. He remains NPO. He is on room air with oxygen saturations greater than 92%. He denies shortness of breath at rest. Denies chest pain or pressure. Denies pain or discomfort. Objective - Vital Signs Vital signs: Vital Signs Temp 97.4 F L 11/30/17 06:00 Pulse 76 11/30/17 07:29 Resp 16 11/30/17 06:00 BP 141/65 11/30/17 06:00 Pulse Ox 96 11/30/17 06:00 Intake & Output 11/29/17 11/30/17 11/30/17 18:59 06:59 18:59 Intake Total 770 Output Total 450 Balance 320 Intake: Oral 460 Blood Product 310 Rc As-1 Unit 310 [id number] Output: Urine 450 Other: Voiding Method Toilet Toilet Urinal Urinal # Voids 3 4 # Bowel Movements 1 4 - Exam GENERAL: This is a 82-year-old male in no apparent distress at the time of examination. Pleasant and cooperative. HEENT: Head is atraumatic, normocephalic. Pupils are equal, round, and reactive to light. Sclerae anicteric. Conjunctivae are clear. Mucus membranes of the mouth are moist. Neck is supple. RESPIRATORY: Clear to ausculation, diminished. No wheezes, rales, or rhonchi. No use of accessory muscles. Patient maintaining oxygen saturation greater than 92%. No chest wall tenderness is noted on palpation or with deep breathing. CARDIOVASCULAR: Irregular rhythm. S1 and S2 noted. No JVD noted. No S3 or S4 noted. GASTROINTESTINAL: No distention noted. Abdomen soft and round. Normal active bowel sounds auscultated x 4 quadrants. No pain or tenderness noted upon palpation. INTEGUMENTARY: Wound to right great toe-no open skin, callused over. No cyanosis. No jaundice. No rashes noted. EXTREMITIES: 2+ peripheral pulses. No evidence of peripheral edema. No calf tenderness noted. NEUROLOGIC: Cranial nerves II-XII intact. PSYCHIATRIC: Awake, alert, and oriented X 3. Appropriate affect. Intact judgement and insight. - Labs CBC & Chem 7: 11/30/17 08:16 11/30/17 08:16 Labs: Abnormal Lab Results - Last 24 Hours (Table) 11/29/17 11/29/17 11/29/17 Range/Units 07:51 12:06 16:57 WBC 13.1 H (3.8-10.6) k/uL Hgb (13.0-17.5) gm/dL Hct (39.0-53.0) % MCV (80.0-100.0) fL MCH (25.0-35.0) pg MCHC (31.0-37.0) g/dL RDW (11.5-15.5) % Plt Count (150-450) k/uL Neutrophils # (1.3-7.7) k/uL Neutrophils # (Manual) 11.14 H (1.3-7.7) k/uL Monocytes # (0-1.0) k/uL Nucleated RBCs 1 H (0-0) /100 WBC POC Glucose (mg/dL) 311 H (75-99) mg/dL Crossmatch See Detail 11/29/17 11/29/17 11/29/17 Range/Units 17:11 21:12 21:29 WBC (3.8-10.6) k/uL Hgb (13.0-17.5) gm/dL Hct (39.0-53.0) % MCV (80.0-100.0) fL MCH (25.0-35.0) pg MCHC (31.0-37.0) g/dL RDW (11.5-15.5) % Plt Count (150-450) k/uL Neutrophils # (1.3-7.7) k/uL Neutrophils # (Manual) (1.3-7.7) k/uL Monocytes # (0-1.0) k/uL Nucleated RBCs (0-0) /100 WBC POC Glucose (mg/dL) 108 H 55 L 66 L (75-99) mg/dL Crossmatch 11/29/17 11/30/17 11/30/17 Range/Units 22:57 01:18 02:17 WBC 13.8 H (3.8-10.6) k/uL Hgb 9.7 L (13.0-17.5) gm/dL Hct 32.0 L (39.0-53.0) % MCV 71.5 L (80.0-100.0) fL MCH 21.7 L (25.0-35.0) pg MCHC 30.3 L (31.0-37.0) g/dL RDW 22.0 H (11.5-15.5) % Plt Count 559 H (150-450) k/uL Neutrophils # 10.3 H (1.3-7.7) k/uL Neutrophils # (Manual) (1.3-7.7) k/uL Monocytes # 1.5 H (0-1.0) k/uL Nucleated RBCs (0-0) /100 WBC POC Glucose (mg/dL) 102 H 119 H (75-99) mg/dL Crossmatch 11/30/17 11/30/17 Range/Units 07:20 08:16 WBC 12.9 H (3.8-10.6) k/uL Hgb 9.5 L (13.0-17.5) gm/dL Hct 32.3 L (39.0-53.0) % MCV 69.7 L (80.0-100.0) fL MCH 20.6 L (25.0-35.0) pg MCHC 29.5 L (31.0-37.0) g/dL RDW 21.9 H (11.5-15.5) % Plt Count 637 H (150-450) k/uL Neutrophils # 9.9 H (1.3-7.7) k/uL Neutrophils # (Manual) (1.3-7.7) k/uL Monocytes # (0-1.0) k/uL Nucleated RBCs (0-0) /100 WBC POC Glucose (mg/dL) 174 H (75-99) mg/dL Crossmatch Assessment and Plan Plan: ASSESSMENT: Symptomatic anemia, suspect secondary to acute blood loss from GI source, status post transfusion of 2 units RBC Paroxysmal atrial fibrillation, not on anticoagulation due to above Chronic systolic heart failure, EF 45% Diabetes mellitus, type II Hypoglycemia, present on admission, secondary to patient taking medications and then not eating, resolved Metabolic encephalopathy, secondary to hypoglycemia on admission, resolved Suspected gram negative pneumonia, per infectious disease 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 Appreciate recommendations and input Restart K supplement at lower dose. Patient to undergo EGD and colonoscopy today Continue antibiotics. Infectious disease on consult. Home meds as appropriate Monitor labs GI prophylaxis: Protonix 40 mg PO Daily DVT prophylaxis: SCDs to bilateral LE Monitor vital signs and address as appropriate Discharge planning: Patient to return home when stable Further recommendations pending patient's course Possible discharge home this afternoon or tomorrow if patient remains stable Nurse practitioner note has been reviewed by physician. Signing provider agrees with the documented findings, assessment, and plan of care.
[2017-11-30] MEDS ORDERED: PROPOFOL 10 MG/ML 20 ML VIAL IV ONE (11:35)
[2017-11-30] MEDS ORDERED: IV FLUID CONTINUATION 1,000 ML IV ONE (11:39)
--- NOTE | 2017-11-30 12:58 | P.OP ---
Date of Procedure: 11/30/17 Preoperative Diagnosis: Anemia Postoperative Diagnosis: Rectal polyp Procedure(s) Performed: EGD with biopsy and Colonoscopy with snare polypectomy Anesthesia: MAC Surgeon: Carlos Campuzano Estimated Blood Loss (ml): 0 Condition: stable Disposition: floor Description of Procedure: Patient was brought into the Endo suite placed in the left lateral decubitus position underwent sedation per department of anesthesia. Timeout was performed correct patient correct procedure correct site was verified the endoscope was passed through the oropharynx down the esophagus with ease through the stomach into the first and second portion of the duodenum the scope was slowly withdrawn to the duodenum no abnormalities were noted no signs of bleeding were noted. The scope was then withdrawn into the stomach all freed and body of the stomach were inspected the scope was retroflexed and ample time was allowed to insufflate and no hiatal hernia was noted no signs of ulceration or bleeding or gastritis was noted. Biopsies taken to rule out H. pylori. The scope was then withdrawn to the GE junction where no abnormalities were noted. The scope was slowly withdrawn to the esophagus and no abnormalities were noted. The patient was then turned and rectal exam was performed no masses were felt. The colonoscope was passed from the rectum to the cecum with ease and slowly withdrawn being sure to visualize all freed on the way out. There was no abnormalities noted the scope was retroflexed in the rectum and a rectal polyp at approximately 1 cm that was pedunculated and ulcerated was noted. This was removed via snare polypectomy. And sent to pathology. The scope was then withdrawn no other abnormalities were noted patient tolerated procedure well no apparent complications
[2017-11-30] MEDS: AZITHROMYCIN 500 MG TAB PO SCH (13:26)
[2017-11-30] MEDS: MAGNESIUM OXIDE 400 MG TAB PO SCH (13:26)
[2017-11-30 13:39] LABS: Glucose,Whole Blood 232 mg/dL (75-99)
[2017-11-30] MEDS ORDERED: INSULIN ASPART 100 UNIT/ML 1 ML 10 ML VIAL SQ ONE (13:57)
[2017-11-30 15:00] VITALS: BMI 35.2
[2017-11-30 17:36] LABS: Glucose,Whole Blood 253 mg/dL (75-99)
[2017-11-30 20:45] LABS: Glucose,Whole Blood 169 mg/dL (75-99)
[2017-11-30] MEDS: INSULIN DETEMIR 100 UNIT/ML 10 ML VIAL SQ SCH (21:30)
[2017-11-30] MEDS: MONTELUKAST 10 MG TAB PO SCH (21:30)
[2017-11-30] MEDS: PRAVASTATIN SODIUM 40 MG TAB PO SCH (21:30)
[2017-11-30] MEDS: MELATONIN 5 MG TABLET PO SCH (21:30)
--- NOTE | 2017-11-30 22:48 | P.PN ---
Subjective Progress Note Date: 11/30/17 82-year-old male who has multiple medical problems that includes a known history of underlying coronary artery disease, status post CABG and several cardiac catheterizations. 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 He is known to the wound healing Center because of nonhealing ulcerations to his feet partially due to difficulty with compliance to offloading and shoes. The patient now presents to hospital with his family with apparently many weeks of increasing symptoms. He's been having increasing weakness and some increasing amount of his baseline confusion. He was having greater difficulty ambulating and there was concern as to chronic ulceration to his foot. The patient was recently hospitalized with troponin time he was found non-Q-wave myocardial infarction as well as significant anemia. Patient did require blood transfusion. He was found to have evidence of significant anemia. He did require further evaluation and outpatient GI evaluation with endoscopy was planned on December 07. Patient however started to have increasing difficulties with some pain and swelling to the right lower extremity with some increasing erythema. He also became weaker and more confused than his baseline and the family brought him to hospital. The patient's daughter who provides this would cure noticed that his feet are swollen bilaterally and the right leg was more erythematous than it had been. The patient himself is sitting upright in the chair. His legs dependent position apparently is a been through part of the day. He was able to eat his dinner but remains a poor historian but is not significantly confused at this point in time. 11/28/2017 patient is feeling better today. He again is sitting upright with his legs in the dependent position. However he has LINDA hose in place with some improvement in the edema. He voices no other acute complaints and believes that he goes back to his usual insulin at home he will be just fine. We discussed that his regimen at home was obviously not working well. He was having a few episodes of hypoglycemia, and he had significant hypoglycemia resulting in his hospitalization. He does seem to acknowledge this and may be willing to have a change in his insulin regimen at home. 11/29/2017 patient is feeling somewhat better. He is getting prepped for his colonoscopy and with his worsening anemia has required further transfusion today 11/30/2017 the patient has had his endoscopy today with evidence of an ulcerated polyp at the rectum, also had some mild gastritis not clear if this was overall etiology of his bleeding. There is consideration for the possible need of capsule endoscopy to further read the small bowel. He is not feeling poorly this point in time is getting somewhat anxious to go home. With his most recent transfusion he does feel better. Objective - Vital Signs Vital signs: Vital Signs Temp 96.9 F L 11/30/17 15:00 Pulse 60 11/30/17 19:45 Resp 16 11/30/17 19:45 BP 130/65 11/30/17 15:00 Pulse Ox 95 11/30/17 15:00 Intake & Output 11/30/17 11/30/17 12/01/17 06:59 18:59 06:59 Intake Total 770 600 Output Total 450 Balance 320 600 Weight 111.13 kg Intake: IV 600 Oral 460 Blood Product 310 Rc As-1 Unit 310 [id number] Output: Urine 450 Other: Voiding Method Toilet Toilet Toilet Urinal # Voids 4 3 2 # Bowel Movements 4 - Exam Pleasant elderly male, sitting upright in the chair legs dependent position., seems comfortable, family is present and voice complaints for him the patient himself again relates he feels relatively well HEENT: Anicteric conjunctiva are pink and moist nasal mucosa grossly intact without significant lesions, there is no thrush. Neck: The neck is supple without significant lymphadenopathy or thyromegaly. Lungs: There are symmetrical air entry, few crackles at the bases no bronchial sounds Heart: Irregularly irregular with an audible S1 and S2 soft S4 no murmur click or rub Abdomen: Obese, Positive bowel sounds soft and nontender without palpable masses or organomegaly. There was no guarding or rebound. Extremities: The upper extremities have excellent pulses they are symmetric, no significant petechiae or telangiectasia. No splinter hemorrhages were noted. Lower extremities have evidence of some increased edema. The right great toe plantar surface has area of a chronic callus without current ulceration. There is no expressible purulence. There is evidence of ascending erythema. The site however is nontender. His skin is dry and scaly no significant open ulcerations are seen. 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 The family is concerned about a foreign body however review of x-ray shows some present since 2017. Neuro: Awake alert oriented to person place and time. 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 - Labs CBC & Chem 7: 11/30/17 08:16 11/30/17 08:16 Labs: Abnormal Lab Results - Last 24 Hours (Table) 11/29/17 11/29/17 11/30/17 Range/Units 16:57 22:57 01:18 WBC 13.8 H (3.8-10.6) k/uL Hgb 9.7 L (13.0-17.5) gm/dL Hct 32.0 L (39.0-53.0) % MCV 71.5 L (80.0-100.0) fL MCH 21.7 L (25.0-35.0) pg MCHC 30.3 L (31.0-37.0) g/dL RDW 22.0 H (11.5-15.5) % Plt Count 559 H (150-450) k/uL Neutrophils # 10.3 H (1.3-7.7) k/uL Monocytes # 1.5 H (0-1.0) k/uL Glucose (74-99) mg/dL POC Glucose (mg/dL) 102 H (75-99) mg/dL Total Protein (6.3-8.2) g/dL Crossmatch See Detail 11/30/17 11/30/17 11/30/17 Range/Units 02:17 07:20 08:16 WBC 12.9 H (3.8-10.6) k/uL Hgb 9.5 L (13.0-17.5) gm/dL Hct 32.3 L (39.0-53.0) % MCV 69.7 L (80.0-100.0) fL MCH 20.6 L (25.0-35.0) pg MCHC 29.5 L (31.0-37.0) g/dL RDW 21.9 H (11.5-15.5) % Plt Count 637 H (150-450) k/uL Neutrophils # 9.9 H (1.3-7.7) k/uL Monocytes # (0-1.0) k/uL Glucose (74-99) mg/dL POC Glucose (mg/dL) 119 H 174 H (75-99) mg/dL Total Protein (6.3-8.2) g/dL Crossmatch 11/30/17 11/30/17 11/30/17 Range/Units 08:16 13:25 17:12 WBC (3.8-10.6) k/uL Hgb (13.0-17.5) gm/dL Hct (39.0-53.0) % MCV (80.0-100.0) fL MCH (25.0-35.0) pg MCHC (31.0-37.0) g/dL RDW (11.5-15.5) % Plt Count (150-450) k/uL Neutrophils # (1.3-7.7) k/uL Monocytes # (0-1.0) k/uL Glucose 185 H (74-99) mg/dL POC Glucose (mg/dL) 232 H 253 H (75-99) mg/dL Total Protein 6.2 L (6.3-8.2) g/dL Crossmatch 11/30/17 Range/Units 20:43 WBC (3.8-10.6) k/uL Hgb (13.0-17.5) gm/dL Hct (39.0-53.0) % MCV (80.0-100.0) fL MCH (25.0-35.0) pg MCHC (31.0-37.0) g/dL RDW (11.5-15.5) % Plt Count (150-450) k/uL Neutrophils # (1.3-7.7) k/uL Monocytes # (0-1.0) k/uL Glucose (74-99) mg/dL POC Glucose (mg/dL) 169 H (75-99) mg/dL Total Protein (6.3-8.2) g/dL Crossmatch Laboratory Results WBC 12.9 k/uL (3.8-10.6) H 11/30/17 08:16 RBC 4.63 m/uL (4.30-5.90) 11/30/17 08:16 Hgb 9.5 gm/dL (13.0-17.5) L 11/30/17 08:16 Hct 32.3 % (39.0-53.0) L 11/30/17 08:16 MCV 69.7 fL (80.0-100.0) L 11/30/17 08:16 MCH 20.6 pg (25.0-35.0) L 11/30/17 08:16 MCHC 29.5 g/dL (31.0-37.0) L 11/30/17 08:16 RDW 21.9 % (11.5-15.5) H 11/30/17 08:16 Plt Count 637 k/uL (150-450) H 11/30/17 08:16 Neutrophils % 76 % 11/30/17 08:16 Neutrophils % (Manual) 85 % 11/29/17 07:51 Band Neutrophils % 1 % 11/25/17 09:24 Lymphocytes % 10 % 11/30/17 08:16 Lymphocytes % (Manual) 9 % 11/29/17 07:51 Monocytes % 7 % 11/30/17 08:16 Monocytes % (Manual) 4 % 11/29/17 07:51 Eosinophils % 5 % 11/30/17 08:16 Eosinophils % (Manual) 2 % 11/29/17 07:51 Basophils % 0 % 11/30/17 08:16 Basophils % (Manual) 1 % 11/25/17 09:24 Neutrophils # 9.9 k/uL (1.3-7.7) H 11/30/17 08:16 Neutrophils # (Manual) 11.14 k/uL (1.3-7.7) H 11/29/17 07:51 Lymphocytes # 1.2 k/uL (1.0-4.8) 11/30/17 08:16 Lymphocytes # (Manual) 1.18 k/uL (1.0-4.8) 11/29/17 07:51 Monocytes # 0.9 k/uL (0-1.0) 11/30/17 08:16 Monocytes # (Manual) 0.52 k/uL (0-1.0) 11/29/17 07:51 Eosinophils # 0.6 k/uL (0-0.7) 11/30/17 08:16 Eosinophils # (Manual) 0.26 k/uL (0-0.7) 11/29/17 07:51 Basophils # 0.1 k/uL (0-0.2) 11/30/17 08:16 Basophils # (Manual) 0.15 k/uL (0-0.2) 11/25/17 09:24 Nucleated RBCs 1 /100 WBC (0-0) H 11/29/17 07:51 Manual Slide Review Performed 11/29/17 07:51 Large Platelets Present 11/29/17 07:51 Polychromasia Present 11/29/17 07:51 Hypochromasia Marked 11/30/17 08:16 Poikilocytosis Marked 11/30/17 08:16 Poikilocytosis (manual Present 11/29/17 07:51 Basophilic Stippling Present 11/29/17 07:51 Anisocytosis Moderate 11/30/17 08:16 Microcytosis Marked 11/30/17 08:16 Spherocytes Present 11/26/17 06:55 Target Cells Present 11/29/17 07:51 [place] Bodies Present 11/26/17 06:55 Crenated Cell Present 11/29/17 07:51 Fragmented RBCs Present 11/29/17 07:51 PT 11.7 sec (9.0-12.0) 11/25/17 01:11 INR 1.2 (<1.2) H 11/25/17 01:11 APTT 25.6 sec (22.0-30.0) 11/25/17 01:11 Sodium 137 mmol/L (137-145) 11/30/17 08:16 Potassium 4.7 mmol/L (3.5-5.1) 11/30/17 08:16 Chloride 98 mmol/L (98-107) 11/30/17 08:16 Carbon Dioxide 28 mmol/L (22-30) 11/30/17 08:16 Anion Gap 11 mmol/L 11/30/17 08:16 BUN 18 mg/dL (9-20) 11/30/17 08:16 Creatinine 0.98 mg/dL (0.66-1.25) 11/30/17 08:16 Est GFR (CKD-EPI)AfAm 85 (>60 ml/min/1.73 sqM) 11/30/17 08:16 Est GFR (CKD-EPI)NonAf 73 (>60 ml/min/1.73 sqM) 11/30/17 08:16 Glucose 185 mg/dL (74-99) H 11/30/17 08:16 POC Glucose (mg/dL) 169 mg/dL (75-99) H 11/30/17 20:43 POC Glu Pin Machine Operator ID Qiana [place] 11/30/17 20:[address] Glu mg/dL 206 11/25/17 09:24 Hemoglobin A1c 8.8 % (4.0-6.0) H 11/25/17 09:24 Plasma Lactic Acid [place] 1.6 mmol/L (0.7-2.0) 11/25/17 01:11 Calcium 8.9 mg/dL (8.4-10.2) 11/30/17 08:16 Phosphorus 3.5 mg/dL (2.5-4.5) 11/25/17 01:11 Magnesium 2.0 mg/dL (1.6-2.3) 11/29/17 13:56 Total Bilirubin 0.7 mg/dL (0.2-1.3) 11/30/17 08:16 AST 34 U/L (17-59) 11/30/17 08:16 ALT 42 U/L (21-72) 11/30/17 08:16 Alkaline Phosphatase 104 U/L (38-126) 11/30/17 08:16 Total Creatine Kinase 118 U/L (55-170) 11/25/17 01:11 CK-MB (CK-2) 7.9 ng/mL (0.0-2.4) H* 11/25/17 01:11 CK-MB (CK-2) Rel Index 6.7 11/25/17 01:11 Troponin I 0.024 ng/mL (0.000-0.034) 11/30/17 01:09 NT-Pro-B Natriuret Pep 2650 pg/mL 11/25/17 09:24 Total Protein 6.2 g/dL (6.3-8.2) L 11/30/17 08:16 Albumin 3.8 g/dL (3.5-5.0) 11/30/17 08:16 TSH 0.630 mIU/L (0.465-4.680) 11/25/17 01:11 Urine Color Light Yellow 11/25/17 04:07 Urine Appearance Clear (Clear) 11/25/17 04:07 Urine pH 6.0 (5.0-8.0) 11/25/17 04:07 Ur Specific [place] 1.008 (1.001-1.035) 11/25/17 04:07 Urine Protein Trace (Negative) H 11/25/17 04:07 Urine Glucose (UA) 3+ (Negative) H 11/25/17 04:07 Urine Ketones Negative (Negative) 11/25/17 04:07 Urine Blood Negative (Negative) 11/25/17 04:07 Urine Nitrite Negative (Negative) 11/25/17 04:07 Urine Bilirubin Negative (Negative) 11/25/17 04:07 Urine Urobilinogen <2.0 mg/dL (<2.0) 11/25/17 04:07 Ur Leukocyte Esterase Negative (Negative) 11/25/17 04:07 Stool Occult Blood Negative (Negative) 11/25/17 11:20 Acetone, Qual Negative (Negative) 11/25/17 01:11 Blood Type A Negative 11/29/17 16:57 Blood Type Recheck No 11/29/17 16:57 Antibody Screen NEGATIVE 11/29/17 16:57 Crossmatch See Detail 11/29/17 16:57 Spec Expiration Date 12/02/20172 11/29/17 16:57 Microbiology 11/25/17 04:07 Urine,Voided Urine Culture - Final Assessment and Plan (1) Cellulitis of right leg Narrative/Plan: 82-year-old male with a long-standing history of multiple medical problems that includes his recent hospitalization with his non-ST elevated myocardial infarction in his significant anemia that appears to be blood loss basis. He is due for an outpatient endoscopy on December 07. He received 2 units of packed red cells during his last stay. The patient is fatigued and not feeling well but does not feel as ill as he did during the last stay. He has not developed evidence of cellulitis to the right lower extremity. He does have the chronic callus area that is without open drainage at this point in time. Is an area of injury to the right lateral ankle that is healed with no purulence. No other sites of direct open entry are seen for the cellulitis right leg. At this time is doing somewhat better but needs to elevate the legs. This is emphasized with the family so he is done with his meals to get back in the bed to elevate his legs to help with the edema and the secondary cellulitis. The duplex feels evidence of deep venous thrombosis left leg at this time. Improved skin care will help with the dryness potential portals of infection into the lower extremities. There is evidence of the anemia a mild leukocytosis and thrombocytosis. Appear to be somewhat reactive in nature to his significant anemia The chest x-ray showing evidence of the new retrocardiac opacity concerns pneumonia however heart failure remains of concern especially given his recent myocardial infarction in his significant anemia. Antibiotic therapy appears to be appropriate this time, however if the right leg erythema does not rapidly improve within need to consider the addition of vancomycin. 11/28/2017 reveals the patient to be showing some further improvement. Overall is feeling somewhat better. His shortness of breath is improving, he does appear to be a candidate for home oxygen therapy at this time. He has ongoing fatigue but does have a significant anemia pending his outpatient endoscopic evaluation 12/07/2017. To further evaluate the etiology of his gastrointestinal bleeding. Once his anemia is improved we'll expect his shortness of breath to be improved. If he has further improvement and is being ready for discharge ulceration of his antibiotic therapy to cefuroxime 500 mg every 12 hours to complete 7 days of therapy for his pneumonia which could be gram-negative should be adequate. The cellulitis lower extremity showed marked improvement already. Elevation of his limbs and compression with his LINDA hose is suggested he however struggles with elevation. 11/29/2017 patient has had some improvement in that his cellulitis to his leg is improved. However his ongoing anemia and there is plans for his colonoscopy performed during this stay because of his ongoing anemia and requirement for blood transfusion today. When ready by therapy will be completed with cefuroxime 11/30/2017 for his significant anemia he's had endoscopy performed today and await the final pathology and final input from the surgeon. However the daughter is present and relates that after his renal cell carcinoma surgery with his partial pancreatectomy and splenectomy they were told by the surgical team at that time that he would have chronic anemia. Have asked the family to provide to the surgeon at our facility a contact number for the surgeon at [facility] to confirm the need for any further workup. The cellulitis is done well and will be able to complete antibiotic therapy now within 5 days. There is no skin ulceration to the foot would not need follow- up the wound center at this time. Current Visit: Yes Status: Acute Code(s): L03.115 - CELLULITIS OF RIGHT LOWER LIMB SNOMED Code(s): 892217092 (2) Encephalopathy in sepsis Current Visit: Yes Status: Acute Code(s): G93.41 - METABOLIC ENCEPHALOPATHY SNOMED Code(s): 727648261 (3) Anemia, blood loss Current Visit: Yes Status: Acute Code(s): D50.0 - IRON DEFICIENCY ANEMIA SECONDARY TO BLOOD LOSS (CHRONIC) SNOMED Code(s): 966983472
[2017-11-30 23:16] VITALS: TEMP 97
[2017-12-01 02:02] LABS: Glucose,Whole Blood 108 mg/dL (75-99)
[2017-12-01 07:14] LABS: Glucose,Whole Blood 109 mg/dL (75-99)
[2017-12-01] MEDS: INSULIN ASPART 100 UNIT/ML 1 ML 10 ML VIAL SQ SCH ×4 (07:19→12:59)
[2017-12-01] MEDS: ALBUTEROL NEBULIZED 2.5 MG/3 ML INHALATION SCH ×2 (07:47→13:04)
[2017-12-01] MEDS: cefTRIAXone IN SWFI 1,000 MG/10 ML SYRINGE IVP SCH (07:47)
[2017-12-01] MEDS: SILDENAFIL 20 MG TAB PO SCH (07:48)
[2017-12-01] MEDS: PANTOPRAZOLE 40 MG TABLET PO SCH (07:48)
[2017-12-01] MEDS: ENOXAPARIN 40 MG/0.4 ML SYRINGE SQ SCH (07:48)
[2017-12-01] MEDS: LISINOPRIL 5 MG TAB PO SCH (07:48)
[2017-12-01] MEDS: POLYETHYLENE GLYCOL 3350 17 GM POWD.PACK PO SCH (07:48)
[2017-12-01] MEDS: CYANOCOBALAMIN 500 MCG TAB PO SCH (07:49)
[2017-12-01] MEDS: AZITHROMYCIN 500 MG TAB PO SCH (07:49)
[2017-12-01] MEDS: FUROSEMIDE 40 MG TAB PO SCH (07:49)
[2017-12-01] MEDS: MAGNESIUM OXIDE 400 MG TAB PO SCH (07:49)
[2017-12-01] MEDS: amLODIPine 10 MG TAB PO SCH (07:49)
[2017-12-01 08:16] VITALS: BP 115/45; RESP 18
[2017-12-01] MEDS ORDERED: POTASSIUM CHLORIDE ER 20 MEQ TAB.ER PO SCH (09:00)
--- NOTE | 2017-12-01 09:48 | P.DS ---
Providers Date of admission: 11/25/17 03:54 Expected date of discharge: 12/01/17 Attending physician: Jono Key Consults: 11/25/17 09:30 Consult Physician Routine Consulting Provider: Lukas Lr Consult Reason/Comments: chf Do you want consulting provider notified?: Yes 11/26/17 13:14 Consult Physician Routine Consulting Provider: Rupert Loza Consult Reason/Comments: grade 3 diabetic ulcer right great toe Do you want consulting provider notified?: Yes 11/29/17 08:03 Consult Physician Stat Consulting Provider: Aleksandr Bran Consult Reason/Comments: Run of 7 Vtach on telemetry Do you want consulting provider notified?: Yes 11/29/17 09:34 Consult Physician Routine Consulting Provider: Chino Delgado Consult Reason/Comments: possible vtach Do you want consulting provider notified?: Already Contacted 11/29/17 15:18 Consult Physician Routine Consulting Provider: Carlos Campuzano Consult Reason/Comments: anemia, suspect GI source, needs egd/colonoscopy Do you want consulting provider notified?: Yes Primary care physician: [facility] Course: This is a 82-year-old male who presented to the emergency room with a chief complaint of confusion, fatigue, weakness, and wound to his great right toe. Patient states over the last few weeks he has felt increasing more weak. patient believes he took too much insulin last night and did not eat. Patient' s brought in by EMS to the ER where he is worked up. He was given glucose, but his sugar did not return to normal quickly. He was recently here for hospital stay November 12 to November 15. He was seen by Dr. Lr, Dr. Chong, Dr. Loza. He received a transfusion for symptomatic anemia. He was treated for his diabetic foot ulcer, which is now callused over , and evaluated for abnormal troponins and a non-ST elevated myocardial infarction. He also believed he had some underlying congestive heart failure. The patient has not had any further episodes of hypoglycemia during hospitalization. The patient was educated regarding his insulin at home and encouraged to eat if he is going to take his insulin, which the patient states he did not do prior to admission which led to his hypoglycemia. The patient's hemoglobin was 7.6 on admission. He has received 2 units of blood during hospitalization. Dr. Nasr was consulted to evaluate for possible GI bleed. Initially the patient was going to be scoped by GI but they decided to keep his outpatient appointment on December 07 for EGD and colonoscopy. General surgery was consulted to evaluate for possible inpatient scope. The patient underwent EGD and colonoscopy on 11/30/2017. EGD was unremarkable. Colonoscopy did not reveal any active bleeding but did reveal a polyp with ulceration noted. It was removed and biopsied. Results are pending. The patient was seen by cardiology during hospitalization for a 7 beat run of V. tach. The patient has been going in and out of sinus rhythm and atrial fib relation during hospitalization. He was started on Revatio 20mg TID per Dr Key for his pulmonary hypertension. His Imdur was discontinued per Dr. Key. Dr. Loza was also consulted during hospital relation to evaluate patient. The patient has a chronic wound to his right foot which is currently callused over. No infection at this time per Dr. Loza. The patient underwent a bone scan which was negative for osteomyelitis. An x-ray during hospitalization revealed possible pneumonia. He has received antibiotics during hospitalization and Dr. Loza recommends Cefuroxime 500mg Q12 hours for 7 days at the time of discharge for possible pneumonia. The patient is stable for discharge. He is to follow up on an outpatient basis with Dr. Quesada on all consulting providers. DISCHARGE DIAGNOSIS: Symptomatic anemia, suspect secondary to acute blood loss from GI source, status post transfusion of 2 units RBC, s/p EGD and colonscopy revealing no active bleeding, but a polyp with ulceration, biopsy pending Paroxysmal atrial fibrillation, not on anticoagulation due to above Chronic systolic heart failure, EF 45% Diabetes mellitus, type II Hypoglycemia, present on admission, secondary to patient taking medications and then not eating, resolved Metabolic encephalopathy, secondary to hypoglycemia on admission, resolved Suspected gram negative pneumonia, per infectious disease Sepsis ruled out, suspect WBC elevation is reactive due to anemia and acute blood loss, patient was not febrile, tachycardic, or hypotensive. 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 Signing provider agrees with the documented findings, assessment, and plan of care. Patient Condition at Discharge: Stable Plan - Discharge Summary Discharge Rx Participant: No New Discharge Prescriptions: New Potassium Chloride ER [K-Dur 20] 20 meq PO DAILY #30 tab Sildenafil [Revatio] 20 mg PO TID #90 tab Continue Montelukast [Singulair] 10 mg PO HS Insulin Detemir [Levemir Flextouch] 60 units SQ HS Zinc 50 mg PO DAILY Pravastatin Sodium 40 mg PO HS Magnesium Oxide [Mag-Ox] 250 mg PO DAILY Insulin Aspart [NovoLOG Flexpen] 17 units SQ AC-TID Albuterol Nebulized [Ventolin Nebulized] 2.5 mg INHALATION RT-TID PRN PRN Reason: Shortness Of Breath [place]-3 Fatty Acids/Fish Oil [Fish Oil 1,000 mg Softgel] 1 cap PO DAILY Escitalopram [Lexapro] 20 mg PO DAILY Acetaminophen Tab [Tylenol] 500 - 1,000 mg PO Q6HR PRN PRN Reason: Pain Pantoprazole [Protonix] 40 mg PO DAILY #30 tab Insulin Aspart [NovoLOG Flexpen] See Protocol SQ AC-TID PRN PRN Reason: Blood Sugar - High Cyanocobalamin [Vitamin B-12] 500 mcg PO MOWEFR Polyethylene Glycol 3350 [Miralax] 17 gm PO DAILY Budesonide-Formot 160-4.5 Mcg [Symbicort 160-4.5 Mcg Inhaler] 2 puff INHALATION RT-BID amLODIPine [Norvasc] 10 mg PO DAILY #30 tab Furosemide [Lasix] 40 mg PO BID@0900,1600 #60 tab Lisinopril [Zestril] 5 mg PO DAILY #30 tab Discontinued Isosorbide Mononitrate ER [Imdur] 30 mg PO DAILY Potassium Chloride ER [K-Dur 20] 20 meq PO BID Discharge Medication List Insulin Detemir [Levemir Flextouch] 60 units SQ HS 12/21/14 [History] Montelukast [Singulair] 10 mg PO HS 12/21/14 [History] Insulin Aspart [NovoLOG Flexpen] 17 units SQ AC-TID 02/07/16 [History] Magnesium Oxide [Mag-Ox] 250 mg PO DAILY 02/07/16 [History] Pravastatin Sodium 40 mg PO HS 02/07/16 [History] Zinc 50 mg PO DAILY 02/07/16 [History] Albuterol Nebulized [Ventolin Nebulized] 2.5 mg INHALATION RT-TID PRN 04/02/16 [ History] [place]-3 Fatty Acids/Fish Oil [Fish Oil 1,000 mg Softgel] 1 cap PO DAILY [History] Acetaminophen Tab [Tylenol] 500 - 1,000 mg PO Q6HR PRN 03/17/17 [History] Escitalopram [Lexapro] 20 mg PO DAILY 03/17/17 [History] Pantoprazole [Protonix] 40 mg PO DAILY #30 tab 03/21/17 [Rx] Cyanocobalamin [Vitamin B-12] 500 mcg PO MOWEFR 11/12/17 [History] Insulin Aspart [NovoLOG Flexpen] See Protocol SQ AC-TID PRN 11/12/17 [History] Polyethylene Glycol 3350 [Miralax] 17 gm PO DAILY 11/12/17 [History] Budesonide-Formot 160-4.5 Mcg [Symbicort 160-4.5 Mcg Inhaler] 2 puff INHALATION RT-BID 11/13/17 [History] Furosemide [Lasix] 40 mg PO BID@0900,1600 #60 tab 11/15/17 [Rx] Lisinopril [Zestril] 5 mg PO DAILY #30 tab 11/15/17 [Rx] amLODIPine [Norvasc] 10 mg PO DAILY #30 tab 11/15/17 [Rx] Potassium Chloride ER [K-Dur 20] 20 meq PO DAILY #30 tab 12/01/17 [Rx] Sildenafil [Revatio] 20 mg PO TID #90 tab 12/01/17 [Rx] Follow up Appointment(s)/Referral(s): Hever Chong MD [STAFF PHYSICIAN] - 01/11/18 4:15 pm (follow up and discuss biopsy result) Grzegorz Ambriz MD [STAFF PHYSICIAN] - 12/18/17 3:00 pm Luis Quesada Jr, DO [Primary Care Provider] - 12/08/17 2:15 pm (Repeat potassium level at appointment.) Rupert Loza MD [STAFF PHYSICIAN] - As Needed Patient Instructions/Handouts: Heart Failure (DC), Diabetic Foot Ulcers (DC) Activity/Diet/Wound Care/Special Instructions: Cardiac, diabetic diet. Eat food prior to administering your insulin. Check blood sugar before meals. Keep diabetic blood sugar log and take to doctors appointment with you. Activity as tolerated. Discharge Disposition: HOME SELF-CARE
[2017-12-01 11:35] LABS: Glucose,Whole Blood 97 mg/dL (75-99)
[2017-12-01 13:12] VITALS: PULSE 68
--- NOTE | 2017-12-04 17:37 | CDI ---
Last Revision, April 2017 Documentation Clarification Form Date: 12/04/17 From: Unique Dunaway Phone: If you have a question , please contact Rand Johnson at [phone] between 8am and 5pm. Admit Date: 11/25/2017 3:54:00 AM Patient Name: Quincy Carson Visit Number: [id number] Discharge Date: 12/01/17 ATTENTION: The Clinical Documentation Specialists (CDI) and [facility] Coding Staff appreciate your assistance in clarifying documentation. Please respond to the clarification below the line at the bottom and electronically sign. The CDI & [facility] Coding staff will review the response and follow-up if needed. Please note: Queries are made part of the Legal Health Record. If you have any questions, please contact the author of this message via ITS. Dr. Luis Quesada Sepsis is documented in Dr. Loza consult note and 11/28 - 11/30 progress notes but not in the discharge summary. History/Risk Factors: Patient was admitted for GI bleed , acute blood loss anemia and hypoglycemia. The patient was also diagnosed with gram negative pneumonia, cellulitis of the right leg and encephalopathy with sepsis. Clinical Indicators: Encephalopathy and elevated WBC WBC/Left Shift: 13.9 on admit and up to 16.1 on 11/26 / .12 on admit and up to 14.65 on 11/26 Lactic acid: 1.6 Vitals signs on admission: T. 98.3, P. 66, R. 16, BP 142/68 Antibiotics: IV Rocephi, PO Zithromax In your professional opinion, please clarify if these findings signify one of the following conditions, whether the condition is POA, and cause, if known: Sepsis ruled out SIRS, without underlying infectious process Sepsis Severe Sepsis Septic Shock Other, please specify Unable to determine Present on Admission: Yes No MTDD
== END 2017-12-01 15:53 | disposition home or self-care (01) | DRG 377 ==
LOC: EC 01:06 → 4MS4W 03:54
PROVIDERS: ADMIT Family Medicine; ATTEND Family Medicine
PROC: 30233N1 Transfusion of Nonautologous Red Blood Cells into Peripheral Vein, Percutaneous Approach (ICD-10-PCS; 2017-11-25)
PROC: 0DBP8ZX Excision of Rectum, Via Natural or Artificial Opening Endoscopic, Diagnostic (ICD-10-PCS; principal; 2017-11-30 07:30)
DX: K92.2 Gastrointestinal hemorrhage, unspecified (principal); G93.41 Metabolic encephalopathy; J15.6 Pneumonia due to other Gram-negative bacteria; I47.2 Ventricular tachycardia; I50.22 Chronic systolic (congestive) heart failure; J44.0 Chronic obstructive pulmonary disease with (acute) lower respiratory infection; L03.115 Cellulitis of right lower limb; D62 Acute posthemorrhagic anemia; E11.621 Type 2 diabetes mellitus with foot ulcer; E11.622 Type 2 diabetes mellitus with other skin ulcer; E11.649 Type 2 diabetes mellitus with hypoglycemia without coma; E78.5 Hyperlipidemia, unspecified; F32.9 Major depressive disorder, single episode, unspecified; F41.9 Anxiety disorder, unspecified; G47.33 Obstructive sleep apnea (adult) (pediatric); I11.0 Hypertensive heart disease with heart failure; I25.10 Atherosclerotic heart disease of native coronary artery without angina pectoris; I25.2 Old myocardial infarction; I27.20 Pulmonary hypertension, unspecified; I35.8 Other nonrheumatic aortic valve disorders; I48.0 Paroxysmal atrial fibrillation; K29.70 Gastritis, unspecified, without bleeding; K44.9 Diaphragmatic hernia without obstruction or gangrene; K62.1 Rectal polyp; L97.519 Non-pressure chronic ulcer of other part of right foot with unspecified severity; M19.041 Primary osteoarthritis, right hand; M19.042 Primary osteoarthritis, left hand; N40.0 Benign prostatic hyperplasia without lower urinary tract symptoms; K21.9 Gastro-esophageal reflux disease without esophagitis; M47.9 Spondylosis, unspecified; E11.42 Type 2 diabetes mellitus with diabetic polyneuropathy; T38.3X5A Adverse effect of insulin and oral hypoglycemic [antidiabetic] drugs, initial encounter; E66.9 Obesity, unspecified; Z68.35 Body mass index [BMI] 35.0-35.9, adult; Z79.4 Long term (current) use of insulin; Z79.51 Long term (current) use of inhaled steroids; Z79.899 Other long term (current) drug therapy; Z79.52 Long term (current) use of systemic steroids; Z88.0 Allergy status to penicillin; Z88.8 Allergy status to other drugs, medicaments and biological substances; Z88.1 Allergy status to other antibiotic agents; Z88.2 Allergy status to sulfonamides; Z85.528 Personal history of other malignant neoplasm of kidney; Z85.07 Personal history of malignant neoplasm of pancreas; Z86.14 Personal history of Methicillin resistant Staphylococcus aureus infection; Z86.73 Personal history of transient ischemic attack (TIA), and cerebral infarction without residual deficits; Z95.1 Presence of aortocoronary bypass graft; Z90.81 Acquired absence of spleen; Z90.5 Acquired absence of kidney; Z90.411 Acquired partial absence of pancreas; Z82.49 Family history of ischemic heart disease and other diseases of the circulatory system; Z82.5 Family history of asthma and other chronic lower respiratory diseases; Y92.009 Unspecified place in unspecified non-institutional (private) residence as the place of occurrence of the external cause
CPT/HCPCS: 36415; 43239; 45385; 71046; 78315; 80048; 80053; 81003; 82009; 82272; 82550; 82553; 83036; 83605; 83735; 83880; 84100; 84443; 84484; 85025; 85610; 85730; 86850; 86900; 86901; 86920; 87086; 88305; 93005; 93306; 94640; 94760; 96361; 96374; 96376; 99285

== ENCOUNTER → 2018-01-29 | Outpatient (CLI) | payer MEDICARE, BC ==
[2018-01-29 08:05] LABS: Albumin 4.2 g/dL (3.5-5.0); Calcium 9.4 mg/dL (8.4-10.2); Total Bilirubin 0.7 mg/dL (0.2-1.3); Total Protein 7.4 g/dL (6.3-8.2)
[2018-01-29 08:09] LABS: Potassium 5.2 mmol/L (3.5-5.1)
[2018-01-29 08:12] LABS: Anisocytosis Marked; HCT 35.7 % (39.0-53.0); HGB 10.5 gm/dL (13.0-17.5); Hypochromasia Marked; MCH 22.7 pg (25.0-35.0); MCHC 29.5 g/dL (31.0-37.0); Mean Platelet Volume 7.1; Microcytosis Marked; Platelet Count 422 k/uL (150-450); RBC 4.64 m/uL (4.30-5.90)
[2018-01-29 08:15] LABS: RDW 25.2 % (11.5-15.5)
== END | disposition home or self-care (01) ==
LOC: LABWHC1 07:21
PROVIDERS: ATTEND Internal Medicine Interventional Cardiology
DX: E78.2 Mixed hyperlipidemia (principal)
CPT/HCPCS: 36415; 80053; 80061; 85027

== ENCOUNTER 2018-04-19 21:58 | Inpatient (IN) | payer MEDICARE, BC ==
[2018-04-19] MEDS ORDERED: ACETAMINOPHEN TAB 500 MG TAB PO STA (22:12)
--- NOTE | 2018-04-19 22:20 | ED ---
SOB HPI - General Chief Complaint: Shortness of Breath Stated Complaint: Shortness of Breath Time Seen by Provider: 04/19/18 22:02 Source: EMS Mode of arrival: EMS Limitations: no limitations - History of Present Illness Initial Comments: Quincy Carson is an 82-year-old male with extensive past medical history who presents to the emergency department today via EMS for evaluation of moderate respiratory distress. The patient he has had a cough and not feeling well for couple days duration. Patient reports yesterday called EMS however upon their evaluation he is feeling better and he made the decision to stay at home rather than be transported the hospital. This evening the patient was noted to be febrile have difficulty breathing at which time his called EMS for transport to the hospital. EMS reports the patient has been febrile, tachycardic, tachypneic had an oxygen saturation of only 89% on room air, they placed him on 6 L nasal cannula and his oxygen increased to 95%. states that he is fully vaccinated including his flu shot and a pneumonia vaccine. 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 - Related Data Home Medications Medication Instructions Recorded Confirmed RX: Insulin Detemir [Levemir 58 units SQ HS 12/21/14 04/19/18 Flextouch] RX: Montelukast [Singulair] 10 mg PO HS 12/21/14 04/19/18 RX: Insulin Aspart [NovoLOG 17 units SQ AC-TID 02/07/16 04/19/18 Flexpen] RX: Magnesium Oxide [Mag-Ox] 250 mg PO DAILY 02/07/16 04/19/18 RX: Pravastatin Sodium 40 mg PO HS 02/07/16 04/19/18 RX: Zinc 50 mg PO DAILY 02/07/16 04/19/18 RX: Una-3 Fatty Acids/Fish Oil 1 cap PO DAILY 08/13/16 04/19/18 [Fish Oil 1,000 mg Softgel] RX: Acetaminophen Tab [Tylenol] 500 - 1,000 mg PO Q6HR PRN 03/17/17 04/19/18 RX: Cyanocobalamin [Vitamin B-12] 500 mcg PO MOWEFR 11/12/17 04/19/18 RX: Insulin Aspart [NovoLOG See Protocol SQ AC-TID PRN 11/12/17 04/19/18 Flexpen] RX: Polyethylene Glycol 3350 17 gm PO DAILY 11/12/17 04/19/18 [Miralax] RX: Budesonide-Formot 160-4.5 Mcg 2 puff INHALATION RT-BID 11/13/17 04/19/18 [Symbicort 160-4.5 Mcg Inhaler] Ipratropium-Albuterol Nebulize 3 ml INHALATION RT-TID 01/26/18 04/19/18 [Duoneb 0.5 mg-3 mg/3 ml Soln] RX: Furosemide [Lasix] 40 mg PO BID@0900,1600 01/26/18 04/19/18 RX: Lisinopril [Zestril] 5 mg PO QAM 01/26/18 04/19/18 Spironolactone [Aldactone] 25 mg PO BID 01/26/18 04/19/18 Escitalopram Oxalate [Lexapro] 10 mg PO HS 04/19/18 04/19/18 Previous Rx's Medication Instructions Recorded RX: Pantoprazole [Protonix] 40 mg PO DAILY #30 tab 03/21/17 RX: amLODIPine [Norvasc] 10 mg PO DAILY #30 tab 11/15/17 Allergies Allergy/AdvReac Type Severity Reaction Status Date / Time Penicillins Allergy Unknown Rash/Hives Verified 04/19/18 22:41 atorvastatin calcium Allergy Unknown Verified 04/19/18 22:41 [From Lipitor] clonazepam [From Klonopin] Allergy Hallucinati Verified 04/19/18 22:41 ons codeine Allergy Hallucinati Verified 04/19/18 22:41 ons haloperidol [From Haldol] Allergy Hallucinati Verified 04/19/18 22:41 ons haloperidol lactate Allergy Hallucinati Verified 04/19/18 22:41 [From Haldol] ons hydromorphone HCl Allergy Hallucinati Verified 04/19/18 22:41 [From Dilaudid] ons methylphenidate HCl Allergy Hallucinati Verified 04/19/18 22:41 [From Ritalin] ons morphine Allergy Hallucinati Verified 04/19/18 22:41 ons propofol Allergy Hallucinati Verified 04/19/18 22:41 ons quetiapine fumarate Allergy Hallucinati Verified 04/19/18 22:41 [From Seroquel] ons Sulfa (Sulfonamide Allergy Unknown Verified 04/19/18 22:41 Antibiotics) vancomycin Allergy Unknown Verified 04/19/18 22:41 ativan AdvReac Unknown Uncoded 01/26/18 09:55 Review of Systems ROS Statement: Those systems with pertinent positive or pertinent negative responses have been documented in the HPI. ROS Other: All systems not noted in ROS Statement are negative. Past Medical History Past Medical History: Coronary Artery Disease (CAD), Cancer, Heart Failure, COPD , CVA/TIA, Diabetes Mellitus, Eye Disorder, Hyperlipidemia, Hypertension, Myocardial Infarction ([place]), Osteoarthritis (OA), Prostate Disorder, Skin Disorder, Sleep Apnea/CPAP/BIPAP Additional Past Medical History / Comment(s): Recent anemia, blood and iron transfusions, right leg cellulitis, 2013 L renal cancer with surgery-partial nephrectomy/spleenectomy/distal portion of pancreas removed at [facility] , IDDM type II, TIA, [place] unknown date, BPH, gastritis, small hiatal hernia, past discitis T9-T10, arthritis bilateral hands/back, TARIQ-does not tolerate his CPAP , past R great toe ulcer/infection, bilateral laser eye surgery for "alittle leakage". Last Myocardial Infarction Date:: UNKNOWN History of Any Multi-Drug Resistant Organisms: MRSA Date of last positivie culture/infection: 11/13/17 MDRO Source:: RIGHT TOE Past Surgical History: Coronary Bypass/CABG, Heart Catheterization Additional Past Surgical History / Comment(s): partial L nephrectomy, distal pancreatectomy, splenectomy-at [place], 2000 CABG-3 vessel, EGD, colonoscopy, deviated septum surgery, skin/oral lesion removals, R carpal tunnel release, bilateral cataract removal, bilateral laser eye surgery for "leakage" Past Anesthesia/Blood Transfusion Reactions: Previous Problems w/ Anesthesia Additional Past Anesthesia/Blood Transfusion Reaction / Comment(s): 'TROUBLE COMING OUT OF ANESTESIA' - DELUSIONAL. Pt has received blood in past without reaction. Smoking Status: Never smoker - Past Family History Father Family Medical History: Myocardial Infarction ([place]) Mother Family Medical History: COPD General Exam - General Exam Comments Initial Comments: Physical Exam GENERAL: Obese male, toxic apparent, moderate respiratory distress HENT: Normocephalic, Atraumatic. EYES: PERRL, EOMI PULMONARY: Crackles in all lungs schaeffer, diminished air movement in all lung schaeffer CARDIOVASCULAR: Tachycardic Warm and well perfused extremities ABDOMEN: Obese, soft nontender SKIN: Skin breakdown on the lower extremities secondary to weeping edema : Deferred NEUROLOGIC: Patient is alert and oriented x3. Moving all extremities spontaneously MUSCULOSKELETAL: Bilateral lower extremity edema PSYCHIATRIC: Normal psychiatric evaluation. Limitations: no limitations Limitations: no limitations Course Vital Signs 04/19/18 04/19/18 04/19/18 22:06 22:20 22:35 Temperature 104.0 F H 102.1 F H 103.1 F H Pulse Rate 98 101 H 101 H Respiratory 22 42 H 36 H Rate Blood Pressure 140/121 130/40 110/57 O2 Sat by Pulse 95 91 L 90 L Oximetry 04/19/18 04/19/18 04/19/18 23:05 23:16 23:30 Temperature 102.1 F H Pulse Rate 90 90 85 Respiratory 23 23 16 Rate Blood Pressure 121/63 121/63 118/53 O2 Sat by Pulse 91 L 92 L Oximetry 04/19/18 04/20/18 04/20/18 23:36 00:00 00:30 Temperature Pulse Rate 87 82 76 Respiratory 15 17 19 Rate Blood Pressure 112/49 116/47 102/55 O2 Sat by Pulse 92 L 93 L 95 Oximetry 04/20/18 04/20/18 04/20/18 01:00 01:30 02:00 Temperature 101.7 F H Pulse Rate 73 70 66 Respiratory 23 23 22 Rate Blood Pressure 105/52 97/54 103/45 O2 Sat by Pulse 96 95 97 Oximetry 04/20/18 04/20/18 02:30 03:29 Temperature 97.8 F 98.8 F Pulse Rate 66 63 Respiratory 22 33 H Rate Blood Pressure 100/65 105/55 O2 Sat by Pulse 97 95 Oximetry Procedures - Sepsis Sepsis Focused Exam #1 Sepsis Focused Exam Date: 04/20/18 Sepsis Focused Exam Complete: Yes Vital Signs & RN Notes Reviewed: Yes Capillary Refill: < 2 Seconds: Fingers, Toes Peripheral Pulses: Strong: Radial (R), Radial (L) Skin Color: Normal for Patient Respiratory Exam: wheezes Cardiovascular Exam: regular rate Medical Decision Making - Medical Decision Making Patient was seen and evaluated immediately upon arrival the emergency department patient was noted to be probably febrile, tachycardic, tachypneic, hypoxic Sepsis order set was ordered Patient was moved to a resuscitation bay with the intention of placing BiPAP though the patient has not tolerated his CPAP while in the past Patient's respiratory effort and oxygenation improved with BiPAP. Patient tolerated this well Labs are consistent with sepsis secondary to community-acquired pneumonia. Influenza was negative, patient has profound leukocytosis I suggested mildly elevated patient with mildly elevated creatinine, gentle IV fluids were ordered Levaquin was ordered for pneumonia Patient was reevaluated, respirations says is improved significantly, fevers improving, heart rate has improved. Patient resting much more comfortably about a plan for admission Patient care was discussed with admitting physician Dr. Key who accepts the admission for sepsis secondary to community-acquired pneumonia Consult to patient's insurance sales professional Dr. Sanabria was placed. - Lab Data Result diagrams: 04/19/18 22:10 04/19/18 22:10 Lab Results 04/19/18 04/19/18 04/19/18 Range/Units 22:10 22:10 22:10 WBC 31.6 H (3.8-10.6) k/uL RBC 4.80 (4.30-5.90) m/uL Hgb 11.8 L (13.0-17.5) gm/dL Hct 37.3 L (39.0-53.0) % MCV 77.7 L (80.0-100.0) fL MCH 24.5 L (25.0-35.0) pg MCHC 31.6 (31.0-37.0) g/dL RDW 21.0 H (11.5-15.5) % Plt Count 385 (150-450) k/uL Neutrophils % 89 % Lymphocytes % 8 % Monocytes % 3 % Eosinophils % 0 % Basophils % 0 % Neutrophils # 28.0 H (1.3-7.7) k/uL Lymphocytes # 2.4 (1.0-4.8) k/uL Monocytes # 0.9 (0-1.0) k/uL Eosinophils # 0.1 (0-0.7) k/uL Basophils # 0.1 (0-0.2) k/uL Manual Slide Review Performed Large Platelets Present Poikilocytosis (manual Present Anisocytosis Moderate Anisocytosis (manual) Present Microcytosis Moderate Target Cells Present Henriquez-Pyatt Bodies Present PT (9.0-12.0) sec INR (<1.2) APTT (22.0-30.0) sec Sodium 135 L (137-145) mmol/L Potassium 5.2 H (3.5-5.1) mmol/L Chloride 96 L (98-107) mmol/L Carbon Dioxide 26 (22-30) mmol/L Anion Gap 13 mmol/L BUN 29 H (9-20) mg/dL Creatinine 1.30 H (0.66-1.25) mg/dL Est GFR (CKD-EPI)AfAm 60 (>60 ml/min/1.73 sqM) Est GFR (CKD-EPI)NonAf 52 (>60 ml/min/1.73 sqM) Glucose 76 (74-99) mg/dL Lactic Ac Sepsis Rflx Plasma Lactic Acid Dean (0.7-2.0) mmol/L Calcium 10.3 H (8.4-10.2) mg/dL Total Bilirubin 0.4 (0.2-1.3) mg/dL AST 30 (17-59) U/L ALT 35 (21-72) U/L Alkaline Phosphatase 75 (38-126) U/L Total Creatine Kinase 168 (55-170) U/L CK-MB (CK-2) 4.8 H (0.0-2.4) ng/mL CK-MB (CK-2) Rel Index 2.9 Troponin I 0.017 (0.000-0.034) ng/mL Total Protein 8.2 (6.3-8.2) g/dL Albumin 4.7 (3.5-5.0) g/dL Urine Color Urine Appearance (Clear) Urine pH (5.0-8.0) Ur Specific [employer] (1.001-1.035) Urine Protein (Negative) Urine Glucose (UA) (Negative) Urine Ketones (Negative) Urine Blood (Negative) Urine Nitrite (Negative) Urine Bilirubin (Negative) Urine Urobilinogen (<2.0) mg/dL Ur Leukocyte Esterase (Negative) Urine RBC (0-5) /hpf Urine WBC (0-5) /hpf Ur Squamous Epith Cells (0-4) /hpf Influenza Type A RNA (Not Detectd) Influenza Type B (PCR) (Not Detectd) 04/19/18 04/19/18 04/19/18 Range/Units 22:10 22:10 22:34 WBC (3.8-10.6) k/uL RBC (4.30-5.90) m/uL Hgb (13.0-17.5) gm/dL Hct (39.0-53.0) % MCV (80.0-100.0) fL MCH (25.0-35.0) pg MCHC (31.0-37.0) g/dL RDW (11.5-15.5) % Plt Count (150-450) k/uL Neutrophils % % Lymphocytes % % Monocytes % % Eosinophils % % Basophils % % Neutrophils # (1.3-7.7) k/uL Lymphocytes # (1.0-4.8) k/uL Monocytes # (0-1.0) k/uL Eosinophils # (0-0.7) k/uL Basophils # (0-0.2) k/uL Manual Slide Review Large Platelets Poikilocytosis (manual Anisocytosis Anisocytosis (manual) Microcytosis Target Cells Henriquez-Pyatt Bodies PT 10.4 (9.0-12.0) sec INR 1.1 (<1.2) APTT 23.8 (22.0-30.0) sec Sodium (137-145) mmol/L Potassium (3.5-5.1) mmol/L Chloride (98-107) mmol/L Carbon Dioxide (22-30) mmol/L Anion Gap mmol/L BUN (9-20) mg/dL Creatinine (0.66-1.25) mg/dL Est GFR (CKD-EPI)AfAm (>60 ml/min/1.73 sqM) Est GFR (CKD-EPI)NonAf (>60 ml/min/1.73 sqM) Glucose (74-99) mg/dL Lactic Ac Sepsis Rflx Plasma Lactic Acid Dean 2.6 H* (0.7-2.0) mmol/L Calcium (8.4-10.2) mg/dL Total Bilirubin (0.2-1.3) mg/dL AST (17-59) U/L ALT (21-72) U/L Alkaline Phosphatase (38-126) U/L Total Creatine Kinase (55-170) U/L CK-MB (CK-2) (0.0-2.4) ng/mL CK-MB (CK-2) Rel Index Troponin I (0.000-0.034) ng/mL Total Protein (6.3-8.2) g/dL Albumin (3.5-5.0) g/dL Urine Color Urine Appearance (Clear) Urine pH (5.0-8.0) Ur Specific [employer] (1.001-1.035) Urine Protein (Negative) Urine Glucose (UA) (Negative) Urine Ketones (Negative) Urine Blood (Negative) Urine Nitrite (Negative) Urine Bilirubin (Negative) Urine Urobilinogen (<2.0) mg/dL Ur Leukocyte Esterase (Negative) Urine RBC (0-5) /hpf Urine WBC (0-5) /hpf Ur Squamous Epith Cells (0-4) /hpf Influenza Type A RNA Not Detected (Not Detectd) Influenza Type B (PCR) Not Detected (Not Detectd) 04/19/18 04/20/18 04/20/18 Range/Units 22:49 00:30 02:33 WBC (3.8-10.6) k/uL RBC (4.30-5.90) m/uL Hgb (13.0-17.5) gm/dL Hct (39.0-53.0) % MCV (80.0-100.0) fL MCH (25.0-35.0) pg MCHC (31.0-37.0) g/dL RDW (11.5-15.5) % Plt Count (150-450) k/uL Neutrophils % % Lymphocytes % % Monocytes % % Eosinophils % % Basophils % % Neutrophils # (1.3-7.7) k/uL Lymphocytes # (1.0-4.8) k/uL Monocytes # (0-1.0) k/uL Eosinophils # (0-0.7) k/uL Basophils # (0-0.2) k/uL Manual Slide Review Large Platelets Poikilocytosis (manual Anisocytosis Anisocytosis (manual) Microcytosis Target Cells Henriquez-Pyatt Bodies PT (9.0-12.0) sec INR (<1.2) APTT (22.0-30.0) sec Sodium (137-145) mmol/L Potassium (3.5-5.1) mmol/L Chloride (98-107) mmol/L Carbon Dioxide (22-30) mmol/L Anion Gap mmol/L BUN (9-20) mg/dL Creatinine (0.66-1.25) mg/dL Est GFR (CKD-EPI)AfAm (>60 ml/min/1.73 sqM) Est GFR (CKD-EPI)NonAf (>60 ml/min/1.73 sqM) Glucose (74-99) mg/dL Lactic Ac Sepsis Rflx Y Plasma Lactic Acid Dean 1.5 (0.7-2.0) mmol/L Calcium (8.4-10.2) mg/dL Total Bilirubin (0.2-1.3) mg/dL AST (17-59) U/L ALT (21-72) U/L Alkaline Phosphatase (38-126) U/L Total Creatine Kinase (55-170) U/L CK-MB (CK-2) (0.0-2.4) ng/mL CK-MB (CK-2) Rel Index Troponin I (0.000-0.034) ng/mL Total Protein (6.3-8.2) g/dL Albumin (3.5-5.0) g/dL Urine Color Yellow Urine Appearance Clear (Clear) Urine pH 5.5 (5.0-8.0) Ur Specific [employer] 1.013 (1.001-1.035) Urine Protein 1+ H (Negative) Urine Glucose (UA) 1+ H (Negative) Urine Ketones Negative (Negative) Urine Blood Trace H (Negative) Urine Nitrite Negative (Negative) Urine Bilirubin Negative (Negative) Urine Urobilinogen <2.0 (<2.0) mg/dL Ur Leukocyte Esterase Trace H (Negative) Urine RBC 1 (0-5) /hpf Urine WBC 4 (0-5) /hpf Ur Squamous Epith Cells <1 (0-4) /hpf Influenza Type A RNA (Not Detectd) Influenza Type B (PCR) (Not Detectd) - EKG Data -: EKG Interpreted by Me EKG Comments: EEG obtained at 10:23 PM, rate is 97, rhythm appears to be accelerated junctional as there does not appear to be definitive P waves. There is no acute ST elevations or depressions or evidence of acute ischemia or infarction. Disposition Clinical Impression: Sepsis, Pneumonia, Diabetes mellitus Disposition: ADMITTED IP TO THIS HOSP Referrals: Luis Quesada Jr, [Primary Care Provider] - 1-2 days
[2018-04-19] MEDS: IBUPROFEN 600 MG TAB PO STA ×2 (22:28→22:34)
[2018-04-19] MEDS: SODIUM CHLORIDE 0.9% 1,000 ML IV SCH (22:37)
[2018-04-19 22:41] LABS: INR 1.1 (<1.2); Partial Thromboplastin Time 23.8 sec (22.0-30.0); Prothrombin Time 10.4 sec (9.0-12.0)
[2018-04-19 22:44] LABS: Albumin 4.7 g/dL (3.5-5.0); Calcium 10.3 mg/dL (8.4-10.2); Potassium 5.2 mmol/L (3.5-5.1); Total Bilirubin 0.4 mg/dL (0.2-1.3); Total Protein 8.2 g/dL (6.3-8.2)
[2018-04-19 23:00] LABS: Anisocytosis Moderate; Basophils # (A) 0.1 k/uL (0-0.2); Basophils % (A) 0 %; Eosinophils # (A) 0.1 k/uL (0-0.7); Eosinophils % (A) 0 %; HCT 37.3 % (39.0-53.0); HGB 11.8 gm/dL (13.0-17.5); Lymphocytes # (A) 2.4 k/uL (1.0-4.8); Lymphocytes % (A) 8 %; MCH 24.5 pg (25.0-35.0); MCHC 31.6 g/dL (31.0-37.0); MCV 77.7 fL (80.0-100.0); Mean Platelet Volume 7.9; Microcytosis Moderate; Monocytes # (A) 0.9 k/uL (0-1.0); Monocytes % (A) 3 %; Neutrophils % (A) 89 %; Platelet Count 385 k/uL (150-450); WBC 31.6 k/uL (3.8-10.6)
--- NOTE | 2018-04-19 23:01 | XR ---
EXAMINATION TYPE: XR chest 1V portable DATE OF EXAM: 04/19/2018 COMPARISON: 720 09/27/2019 HISTORY: Difficulty breathing TECHNIQUE: Single frontal view of the chest is obtained. FINDINGS: There is coarsening of the lung markings. Heart size is normal. There are sternal wires. T here are chest leads. Costophrenic angles are clear. IMPRESSION: Pulmonary fibrosis. Poor inspiration. Inspiration is less than last exam. No definite he art failure.
[2018-04-19 23:04] LABS: Creatine Kinase MB 4.8 ng/mL (0.0-2.4); Troponin I 0.017 ng/mL (0.000-0.034)
[2018-04-19] MEDS ORDERED: LEVOFLOXACIN 750MG-D5W PMX 750 MG in DEXTROSE/WATER 1 150ML.BAG IVPB STA (23:49)
[2018-04-19] MEDS ORDERED: SODIUM CHLORIDE 0.9% 500 ML 500 ML IV ONE (23:50)
[2018-04-20] MEDS ORDERED: GENTAMICIN 80 MG in SODIUM CHLORIDE 0.9% 100 ML IVPB ONE ×2
[2018-04-20 00:03] LABS: Howell-Jolly Bodies Present; Target Cells Present
[2018-04-20 00:04] LABS: Large Platelets Present
[2018-04-20 00:08] LABS: Anisocytosis (M) Present; Poikilocytosis (M) Present
[2018-04-20 01:16] LABS: Appearance,Urine Clear (Clear); Bilirubin,Urine Negative (Negative); Blood,Urine Trace (Negative); Color,Urine Yellow; Glucose,Urine (UA) 1+ (Negative); Ketones,Urine Negative (Negative); Leukocyte Esterase,Urine Trace (Negative); Nitrite,Urine Negative (Negative); PH, Urine 5.5 (5.0-8.0); Protein,Urine 1+ (Negative); RBC,Urine 1 /hpf (0-5); Specific Gravity,Urine 1.013 (1.001-1.035); Squamous Epithelial Cell,Urine <1 /hpf (0-4); Urobilinogen,Urine <2.0 mg/dL (<2.0); WBC,Urine 4 /hpf (0-5)
[2018-04-20] MEDS ORDERED: PNEUMONIA PROTOCOL UTILIZED 1 EACH MISC PO PRN (04:05)
[2018-04-20] MEDS ORDERED: IPRATROPIUM-ALBUTEROL 3 ML NEB INHALATION PRN (04:05)
[2018-04-20 05:33] LABS: Glucose,Whole Blood 176 mg/dL (75-99)
[2018-04-20] MEDS: PANTOPRAZOLE 40 MG TABLET PO SCH (08:16)
[2018-04-20] MEDS: amLODIPine 10 MG TAB PO SCH (08:16)
[2018-04-20] MEDS: SPIRONOLACTONE 25 MG TAB PO SCH ×2 (08:16→22:35)
[2018-04-20] MEDS: FUROSEMIDE 40 MG TAB PO SCH ×2 (08:16→17:32)
[2018-04-20] MEDS: LISINOPRIL 5 MG TAB PO SCH (08:16)
[2018-04-20] MEDS: POLYETHYLENE GLYCOL 3350 17 GM POWD.PACK PO SCH (08:16)
[2018-04-20] MEDS: SODIUM CHLORIDE 0.9% 1,000 ML IV SCH ×2 (08:16→17:32)
[2018-04-20 08:42] LABS: Glucose,Whole Blood 280 mg/dL (75-99)
[2018-04-20 08:42] LABS: Glucose,Whole Blood 277 mg/dL (75-99)
[2018-04-20] MEDS: INSULIN ASPART 100 UNIT/ML 1 ML 10 ML VIAL SQ SCH ×3 (08:45→18:08)
--- NOTE | 2018-04-20 11:16 | CT ---
EXAMINATION TYPE: CT brain wo con DATE OF EXAM: 04/20/2018 COMPARISON: 02/07/2016 HISTORY: Fall prior to admission, confusion. CT DLP: 1206.[address] of the brain was performed. The ventricles, basal cisterns and sulci overlying the cerebral convexities demonstrate mild enlargem ent. There is no evidence for intracranial hemorrhage or sulcal effacement. There is decreased attenuation about the periventricular white matter and deep white matter of both c erebral hemispheres, compatible with chronic small vessel ischemia. Differential diagnosis does inclu de demyelination. No mass effects are seen.No midline shift. Osseous calvarium is intact. Chronic sinusitis. If symptoms persist consider MRI. IMPRESSION: 1. Age related atrophic and chronic small vessel ischemic change without acute intracranial process s een at this time.
[2018-04-20 12:15] LABS: Albumin 3.9 g/dL (3.5-5.0); Calcium 9.2 mg/dL (8.4-10.2); Potassium 5.6 mmol/L (3.5-5.1); Total Bilirubin 0.6 mg/dL (0.2-1.3); Total Protein 6.6 g/dL (6.3-8.2)
[2018-04-20 12:38] LABS: Anisocytosis Moderate; Basophils # (A) 0.4 k/uL (0-0.2); Basophils % (A) 1 %; Eosinophils % (A) 0 %; HCT 31.6 % (39.0-53.0); Hypochromasia Slight; Lymphocytes # (A) 0.4 k/uL (1.0-4.8); Lymphocytes % (A) 1 %; MCH 24.2 pg (25.0-35.0); MCHC 30.1 g/dL (31.0-37.0); MCV 80.2 fL (80.0-100.0); Mean Platelet Volume 7.9; Microcytosis Slight; Monocytes # (A) 1.5 k/uL (0-1.0); Monocytes % (A) 3 %; Neutrophils # (A) 46.9 k/uL (1.3-7.7); Neutrophils % (A) 95 %; Platelet Count 398 k/uL (150-450); RBC 3.94 m/uL (4.30-5.90); RDW 21.4 % (11.5-15.5); WBC 49.4 k/uL (3.8-10.6)
[2018-04-20 12:42] LABS: HGB 9.5 gm/dL (13.0-17.5)
[2018-04-20 13:33] LABS: Glucose,Whole Blood 439 mg/dL (75-99)
[2018-04-20 13:39] LABS: Hemoglobin A1C 8.9 % (4.0-6.0)
--- NOTE | 2018-04-20 14:06 | XR ---
EXAMINATION TYPE: XR ribs LT DATE OF EXAM: 04/20/2018 CLINICAL HISTORY: Pain, Fall Four views of the ribs demonstrate fractures of left ribs 6 and 7 posterolaterally. Visualized lungs are clear. No evidence for pneumothorax. IMPRESSION: Fractures of left ribs 6 and 7 as noted. ICD 10 closed FRACTURE, INITIAL EVALUATION
[2018-04-20] MEDS: IPRATROPIUM-ALBUTEROL 3 ML NEB INHALATION SCH ×3 (15:08→19:23)
--- NOTE | 2018-04-20 15:22 | P.HPIM ---
History of Present Illness H&P Date: 04/20/18 Chief Complaint: shortness of breath 82-year-old male who presented to the emergency room with a chief complaint of shortness of breath and cough for the past two to three days. The patient was found to be hypoxic in the 80s, tachycardic, tachypneic, and febrile in the emergency room. He was placed on bipap originally with improvement in his respiratory status, currently on nasal cannula. The patient does report he has fallen a few times at home recently and complains of pain on the left side of his chest. Rib xray revealed fractures of left sixth and seventh rib. Chest x-ray completed in the emergency room reveals pulmonary fibrosis. No definite heart failure. CT of the brain revealed age-related atrophic and chronic small vessel ischemic changes without acute intracranial process. Laboratory data upon admission revealed white count 31.6. Platelet count 385. Hemoglobin 11.8. Sodium 135. Potassium 5.2. BUN 29. Creatinine 1.3. Lactic acid 2.6. Repeat 1.5. Troponin 0.017. Repeat blood work prior reveals white count 49.4. Hemoglobin 9.5. Platelet count 398. Sodium 131. Potassium 5.6. BUN 35. Creatinine 1.34. Testing for influenza A and B was negative. The patient was admitted to the hospital under the care of Dr. Key. Consultations were placed to pulmonary. REVIEW OF SYSTEMS: Those systems with pertinent positive or pertinent negative responses have been documented in the HPI PHYSICAL EXAM: GENERAL: This is a 82-year-old male in no apparent distress at the time of examination. Pleasant and cooperative. HEENT: Head is atraumatic, normocephalic. Pupils are equal, round, and reactive to light. Sclerae anicteric. Conjunctivae are clear. Mucus membranes of the mouth are moist. Neck is supple. RESPIRATORY: Diminished. Coarse. No wheezes, rales, or rhonchi. No use of accessory muscles. Patient maintaining oxygen saturation greater than 92%. Pain and tenderness noted upon palpation of left lateral chest wall. CARDIOVASCULAR: Regular rate and rhythm. S1 and S2 noted. No JVD noted. No S3 or S4 noted. GASTROINTESTINAL: No distention noted. Abdomen soft and round. Normal active bowel sounds auscultated x 4 quadrants. No pain or tenderness noted upon palpation. INTEGUMENTARY: No cyanosis. No jaundice. No rashes noted. No cellulitis noted. EXTREMITIES: 2+ peripheral pulses. 1-2+ lower extremity edema. No calf tenderness noted. NEUROLOGIC: Cranial nerves II-XII grossly intact. PSYCHIATRIC: Awake, alert, and oriented X 3. ASSESSMENT: Sepsis with profound leukocytosis, tachycardia, tachypnea, and fever, present on admission Community-acquired pneumonia Fracture of left sixth and seventh rib, status post fall Acute kidney injury, creatinine 1.30 on admission, baseline 1.0 Hyperkalemia Diabetes mellitus, type II Hyperglycemia secondary to uncontrolled diabetes mellitus Paroxysmal atrial fibrillation not on long-term anticoagulation secondary to GI bleed, November 2017 Hospitalization in November 2017 secondary to acute blood loss anemia COPD, no evidence of acute exacerbation History of obstructive sleep apnea, patient does not tolerate CPAP History of coronary artery disease with previous CABG 3 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 Await further recommendations and input Consult Dr. Loza, infectious disease Valdez culture. Await results Novolog sliding scale in addition to novolog 17 units with meals If blood sugars do not improve, patient will require insulin drip Monitor potassium level. repeat in AM Pain with multiple allergies to narcotics including codeine, dilaudid, and morphine. Avoid toradol due to patients age and decreased kidney function. Will order tylenol and lidoderm patch. LINDA hose to LE. Elevate legs while in bed to reduce edema. Home meds as appropriate Monitor labs GI prophylaxis: Protonix 40 mg PO Daily DVT prophylaxis: LINDA hose to bilateral lower extremities Monitor vital signs and address as appropriate Discharge planning: Patient to return home when stable Further recommendations pending patient's course Nurse practitioner note has been reviewed by physician. Signing provider agrees with the documented findings, assessment, and plan of care. Past Medical History Past Medical History: Coronary Artery Disease (CAD), Cancer, Heart Failure, COPD , CVA/TIA, Diabetes Mellitus, Eye Disorder, Hyperlipidemia, Hypertension, Myocardial Infarction ([place]), Osteoarthritis (OA), Prostate Disorder, Skin Disorder, Sleep Apnea/CPAP/BIPAP Additional Past Medical History / Comment(s): Recent anemia, blood and iron transfusions, right leg cellulitis, 2013 L renal cancer with surgery-partial nephrectomy/spleenectomy/distal portion of pancreas removed at [facility] , IDDM type II, TIA, [place] unknown date, BPH, gastritis, small hiatal hernia, past discitis T9-T10, arthritis bilateral hands/back, TARIQ-does not tolerate his CPAP , past R great toe ulcer/infection, bilateral laser eye surgery for "alittle leakage". Last Myocardial Infarction Date:: UNKNOWN History of Any Multi-Drug Resistant Organisms: MRSA Date of last positivie culture/infection: 11/13/17 MDRO Source:: RIGHT TOE Past Surgical History: Coronary Bypass/CABG, Heart Catheterization Additional Past Surgical History / Comment(s): partial L nephrectomy, distal pancreatectomy, splenectomy-at [facility] CABG-3 vessel, EGD, colonoscopy, deviated septum surgery, skin/oral lesion removals, R carpal tunnel release, bilateral cataract removal, bilateral laser eye surgery for "leakage" Past Anesthesia/Blood Transfusion Reactions: Previous Problems w/ Anesthesia Additional Past Anesthesia/Blood Transfusion Reaction / Comment(s): 'TROUBLE COMING OUT OF ANESTESIA' - DELUSIONAL. Pt has received blood in past without reaction. Past Psychological History: Anxiety, Depression Additional Psychological History / Comment(s): Pt resides with his spouse. He uses a cane or walker to ambulate. He no longer drives. His spouse drives and manages his medications. Smoking Status: Never smoker Past Alcohol Use History: None Reported Past Drug Use History: None Reported - Past Family History Father Family Medical History: Myocardial Infarction ([place]) Mother Family Medical History: COPD Medications and Allergies Home Medications Medication Instructions Recorded Confirmed Type Insulin Detemir [Levemir Flextouch] 58 units SQ HS 12/21/14 04/19/18 History Montelukast [Singulair] 10 mg PO HS 12/21/14 04/19/18 History Insulin Aspart [NovoLOG Flexpen] 17 units SQ AC-TID 02/07/16 04/19/18 History Magnesium Oxide [Mag-Ox] 250 mg PO DAILY 02/07/16 04/19/18 History Pravastatin Sodium 40 mg PO HS 02/07/16 04/19/18 History Zinc 50 mg PO DAILY 02/07/16 04/19/18 History Pecos-3 Fatty Acids/Fish Oil [Fish 1 cap PO DAILY 08/13/16 04/19/18 History Oil 1,000 mg Softgel] Acetaminophen Tab [Tylenol] 500 - 1,000 mg PO Q6HR PRN 03/17/17 04/19/18 History Pantoprazole [Protonix] 40 mg PO DAILY #30 tab 03/21/17 04/19/18 Rx Cyanocobalamin [Vitamin B-12] 500 mcg PO MOWEFR 11/12/17 04/19/18 History Insulin Aspart [NovoLOG Flexpen] See Protocol SQ AC-TID PRN 11/12/17 04/19/18 History Polyethylene Glycol 3350 [Miralax] 17 gm PO DAILY 11/12/17 04/19/18 History Budesonide-Formot 160-4.5 Mcg 2 puff INHALATION RT-BID 11/13/17 04/19/18 History [Symbicort 160-4.5 Mcg Inhaler] amLODIPine [Norvasc] 10 mg PO DAILY #30 tab 11/15/17 04/19/18 Rx Furosemide [Lasix] 40 mg PO BID@0900,1600 01/26/18 04/19/18 History Ipratropium-Albuterol Nebulize 3 ml INHALATION RT-TID 01/26/18 04/19/18 History [Duoneb 0.5 mg-3 mg/3 ml Soln] Lisinopril [Zestril] 5 mg PO QAM 01/26/18 04/19/18 History Spironolactone [Aldactone] 25 mg PO BID 01/26/18 04/19/18 History Escitalopram Oxalate [Lexapro] 10 mg PO HS 04/19/18 04/19/18 History Allergies Allergy/AdvReac Type Severity Reaction Status Date / Time Penicillins Allergy Unknown Rash/Hives Verified 04/19/18 22:41 atorvastatin calcium Allergy Unknown Verified 04/19/18 22:41 [From Lipitor] clonazepam [From Klonopin] Allergy Hallucinati Verified 04/19/18 22:41 ons codeine Allergy Hallucinati Verified 04/19/18 22:41 ons haloperidol [From Haldol] Allergy Hallucinati Verified 04/19/18 22:41 ons haloperidol lactate Allergy Hallucinati Verified 04/19/18 22:41 [From Haldol] ons hydromorphone HCl Allergy Hallucinati Verified 04/19/18 22:41 [From Dilaudid] ons methylphenidate HCl Allergy Hallucinati Verified 04/19/18 22:41 [From Ritalin] ons morphine Allergy Hallucinati Verified 04/19/18 22:41 ons propofol Allergy Hallucinati Verified 04/19/18 22:41 ons quetiapine fumarate Allergy Hallucinati Verified 04/19/18 22:41 [From Seroquel] ons Sulfa (Sulfonamide Allergy Unknown Verified 04/19/18 22:41 Antibiotics) vancomycin Allergy Unknown Verified 04/19/18 22:41 ativan AdvReac Unknown Uncoded 01/26/18 09:55 Physical Exam Vitals: Vital Signs Temp Pulse Resp BP Pulse Ox 04/20/18 08:47 16 04/20/18 06:07 96 04/20/18 05:00 65 18 111/70 95 04/20/18 04:20 98.9 F 61 24 115/60 96 04/20/18 04:00 65 18 112/64 97 04/20/18 03:29 98.8 F 63 33 H 105/55 95 04/20/18 03:00 66 26 H 97/56 96 04/20/18 02:30 97.8 F 66 22 100/65 97 04/20/18 02:00 66 22 103/45 97 04/20/18 01:30 70 23 97/54 95 04/20/18 01:00 101.7 F H 73 23 105/52 96 04/20/18 00:30 76 19 102/55 95 04/20/18 00:00 82 17 116/47 93 L 04/19/18 23:36 87 15 112/49 92 L 04/19/18 23:30 102.1 F H 85 16 118/53 92 L 04/19/18 23:16 90 23 121/63 91 L 04/19/18 23:05 90 23 121/63 04/19/18 22:35 103.1 F H 101 H 36 H 110/57 90 L 04/19/18 22:20 102.1 F H 101 H 42 H 130/40 91 L 04/19/18 22:06 104.0 F H 98 22 140/121 95 Intake and Output 04/19/18 04/20/18 04/20/18 22:59 06:59 14:59 Other: Weight 106.594 kg Results CBC & Chem 7: 04/20/18 11:17 04/20/18 11:17 Labs: Abnormal Lab Results - Last 24 Hours (Table) 04/19/18 04/19/18 04/19/18 Range/Units 22:10 22:10 22:10 WBC 31.6 H (3.8-10.6) k/uL RBC (4.30-5.90) m/uL Hgb 11.8 L (13.0-17.5) gm/dL Hct 37.3 L (39.0-53.0) % MCV 77.7 L (80.0-100.0) fL MCH 24.5 L (25.0-35.0) pg MCHC (31.0-37.0) g/dL RDW 21.0 H (11.5-15.5) % Neutrophils # 28.0 H (1.3-7.7) k/uL Lymphocytes # (1.0-4.8) k/uL Monocytes # (0-1.0) k/uL Basophils # (0-0.2) k/uL Sodium 135 L (137-145) mmol/L Potassium 5.2 H (3.5-5.1) mmol/L Chloride 96 L (98-107) mmol/L Carbon Dioxide (22-30) mmol/L BUN 29 H (9-20) mg/dL Creatinine 1.30 H (0.66-1.25) mg/dL Glucose (74-99) mg/dL POC Glucose (mg/dL) (75-99) mg/dL Hemoglobin A1c (4.0-6.0) % Plasma Lactic Acid Dean (0.7-2.0) mmol/L Calcium 10.3 H (8.4-10.2) mg/dL CK-MB (CK-2) 4.8 H (0.0-2.4) ng/mL Urine Protein (Negative) Urine Glucose (UA) (Negative) Urine Blood (Negative) Ur Leukocyte Esterase (Negative) 04/19/18 04/19/18 04/20/18 Range/Units 22:10 22:10 00:30 WBC (3.8-10.6) k/uL RBC (4.30-5.90) m/uL Hgb (13.0-17.5) gm/dL Hct (39.0-53.0) % MCV (80.0-100.0) fL MCH (25.0-35.0) pg MCHC (31.0-37.0) g/dL RDW (11.5-15.5) % Neutrophils # (1.3-7.7) k/uL Lymphocytes # (1.0-4.8) k/uL Monocytes # (0-1.0) k/uL Basophils # (0-0.2) k/uL Sodium (137-145) mmol/L Potassium (3.5-5.1) mmol/L Chloride (98-107) mmol/L Carbon Dioxide (22-30) mmol/L BUN (9-20) mg/dL Creatinine (0.66-1.25) mg/dL Glucose (74-99) mg/dL POC Glucose (mg/dL) (75-99) mg/dL Hemoglobin A1c 8.9 H (4.0-6.0) % Plasma Lactic Acid Dean 2.6 H* (0.7-2.0) mmol/L Calcium (8.4-10.2) mg/dL CK-MB (CK-2) (0.0-2.4) ng/mL Urine Protein 1+ H (Negative) Urine Glucose (UA) 1+ H (Negative) Urine Blood Trace H (Negative) Ur Leukocyte Esterase Trace H (Negative) 04/20/18 04/20/18 04/20/18 Range/Units 05:04 08:28 08:30 WBC (3.8-10.6) k/uL RBC (4.30-5.90) m/uL Hgb (13.0-17.5) gm/dL Hct (39.0-53.0) % MCV (80.0-100.0) fL MCH (25.0-35.0) pg MCHC (31.0-37.0) g/dL RDW (11.5-15.5) % Neutrophils # (1.3-7.7) k/uL Lymphocytes # (1.0-4.8) k/uL Monocytes # (0-1.0) k/uL Basophils # (0-0.2) k/uL Sodium (137-145) mmol/L Potassium (3.5-5.1) mmol/L Chloride (98-107) mmol/L Carbon Dioxide (22-30) mmol/L BUN (9-20) mg/dL Creatinine (0.66-1.25) mg/dL Glucose (74-99) mg/dL POC Glucose (mg/dL) 176 H 277 H 280 H (75-99) mg/dL Hemoglobin A1c (4.0-6.0) % Plasma Lactic Acid Dean (0.7-2.0) mmol/L Calcium (8.4-10.2) mg/dL CK-MB (CK-2) (0.0-2.4) ng/mL Urine Protein (Negative) Urine Glucose (UA) (Negative) Urine Blood (Negative) Ur Leukocyte Esterase (Negative) 04/20/18 04/20/18 04/20/18 Range/Units 11:17 11:17 12:22 WBC 49.4 H (3.8-10.6) k/uL RBC 3.94 L (4.30-5.90) m/uL Hgb 9.5 L D (13.0-17.5) gm/dL Hct 31.6 L (39.0-53.0) % MCV (80.0-100.0) fL MCH 24.2 L (25.0-35.0) pg MCHC 30.1 L (31.0-37.0) g/dL RDW 21.4 H (11.5-15.5) % Neutrophils # 46.9 H (1.3-7.7) k/uL Lymphocytes # 0.4 L (1.0-4.8) k/uL Monocytes # 1.5 H (0-1.0) k/uL Basophils # 0.4 H (0-0.2) k/uL Sodium 131 L (137-145) mmol/L Potassium 5.6 H (3.5-5.1) mmol/L Chloride 96 L (98-107) mmol/L Carbon Dioxide 20 L (22-30) mmol/L BUN 35 H (9-20) mg/dL Creatinine 1.34 H (0.66-1.25) mg/dL Glucose 400 H (74-99) mg/dL POC Glucose (mg/dL) 439 H (75-99) mg/dL Hemoglobin A1c (4.0-6.0) % Plasma Lactic Acid Dean (0.7-2.0) mmol/L Calcium (8.4-10.2) mg/dL CK-MB (CK-2) (0.0-2.4) ng/mL Urine Protein (Negative) Urine Glucose (UA) (Negative) Urine Blood (Negative) Ur Leukocyte Esterase (Negative) Microbiology - Last 24 Hours (Table) 04/20/18 00:30 Urine Culture - Preliminary Urine,Voided Thrombosis Risk Factor Assmnt - Choose All That Apply Any of the Below Risk Factors Present?: Yes Each Factor Represents 1 point: Abnormal pulmonary function (COPD) Each Risk Factor Represents 3 Points: Age 75 years or older Thrombosis Risk Factor Assessment Total Risk Factor Score: 4 Thrombosis Risk Factor Assessment Level: Moderate Risk Sepsis - Sepsis Sepsis Focused Exam #1 Sepsis Focused Exam Date: 04/20/18 Sepsis Focused Exam Complete: Yes Vital Signs & RN Notes Reviewed: Yes Capillary Refill: < 2 Seconds: Fingers, Toes Peripheral Pulses: Normal: Radial (R), Radial (L) Skin Color: Normal for Patient Respiratory Exam: normal lung sounds Cardiovascular Exam: regular rate
[2018-04-20 16:06] LABS: Glucose,Whole Blood 407 mg/dL (75-99)
--- NOTE | 2018-04-20 16:22 | P.CNPUL ---
History of Present Illness Consult date: 04/20/18 Requesting physician: Jono Key Reason for consult: dyspnea Chief complaint: Shortness of breath, cough History of present illness: This is a 82-year-old white male patient of Dr. Quesada, was brought in to the emergency department per EMS on 04/19/2018 for evaluation of moderate respiratory distress, cough, not feeling well, his symptoms have been going on over last couple of days. He was febrile with a temp of 104F, he was tachycardic, tachypneic, hypoxemic, with the pulse ox of 89% on room air. Patient is a poor historian. Chest x-ray was completed in the emergency department and showed coarsening of the lung markings, pulmonary fibrosis, poor inspiratory effort, no definite heart failure. No pleural effusions. Patient follows with Dr. Vicente in the pulmonary clinic for his history of COPD, and his latest PFT from from 12/13/2017 showed FEV1 of 1.36 L or 47% of predicted, FVC of 1.84 L of 46% of predicted, consistent with obstructive and mostly restrictive pulmonary defect. Other medical history includes hypertension, type 2 diabetes, paroxysmal atrial fibrillation history of partial left nephrectomy for renal cancer and patient had a prolonged hospital course following his surgery at [facility] requiring intubation and mechanical ventilation for failure to wean. He did have a tracheostomy placed at that time , and did spend some time in the rehab facility and was subsequently weaned off the mechanical ventilator, and subsequently decannulated. Patient also has severe secondary pulmonary hypertension related to his history of COPD, cardiomyopathy with impaired left ventricular systolic function with EF of 45%- 50%, with right ventricular systolic pressure of 89 mmHg. Labs show WBC of 31.6 , hemoglobin of 11.8, sodium was 135, potassium is 5.2, chloride is 96, 9 gap was 13, B1 is 29, creatinine is 1.3, plasma lactic acid was 2.6 on admission, troponin was 0.017, urinalysis showed trace blood, and trace leuk trase, influenza screen was negative. Patient was fluid resuscitated, he received a liter of 0.9 normal saline in the emergency department, his maintenance IV fluids is 0.9 normal saline at a rate of 50 ML per hour and subsequently his lactic acid improved and is down to 1.5 on today's labs. His leukocytosis has increased, his white count is up to 49.4, hemoglobin is 9.5, sodium is 131, potassium is 5.6, chloride is 96, CO2 is 20. Patient was started on empiric antibiotics, he has multiple ALLERGIES, he received a dose of gentamicin, was started on IV Levaquin, blood urine and sputum cultures were ordered, unable to collect a sputum culture. Patient was febrile all day yesterday, afebrile today. At the time of our evaluation patient is resting comfortably on the bed in the emergency department. Patient is a poor historian, maybe a little confused not sure if this is his baseline. Brain CT was obtained and showed age -related atrophic and chronic small vessel ischemic changes without acute intracranial process, EKG showed A. fib with a controlled rate. Patient is not on chronic anticoagulation for his history of paroxysmal atrial fibrillation. Review of Systems All systems: negative Constitutional: Reports malaise, Reports weakness, Denies chills, Denies fever Eyes: denies blurred vision, denies pain Ears, nose, mouth and throat: Denies headache, Denies sore throat Cardiovascular: Denies chest pain, Denies shortness of breath Respiratory: Reports dyspnea, Denies cough Gastrointestinal: Denies abdominal pain, Denies diarrhea, Denies nausea, Denies vomiting Musculoskeletal: Denies myalgias Integumentary: Denies pruritus, Denies rash Neurological: Reports change in mentation, Denies numbness, Denies weakness Psychiatric: Denies anxiety, Denies depression Endocrine: Denies fatigue, Denies weight change Past Medical History Past Medical History: Coronary Artery Disease (CAD), Cancer, Heart Failure, COPD , CVA/TIA, Diabetes Mellitus, Eye Disorder, Hyperlipidemia, Hypertension, Myocardial Infarction (CA), Osteoarthritis (OA), Prostate Disorder, Skin Disorder, Sleep Apnea/CPAP/BIPAP Additional Past Medical History / Comment(s): Recent anemia, blood and iron transfusions, right leg cellulitis, 2014 L renal cancer with surgery-partial nephrectomy/spleenectomy/distal portion of pancreas removed at [facility] , IDDM type II, TIA, CA unknown date, BPH, gastritis, small hiatal hernia, past discitis T9-T10, arthritis bilateral hands/back, TARIQ-does not tolerate his CPAP , past R great toe ulcer/infection, bilateral laser eye surgery for "alittle leakage". Last Myocardial Infarction Date:: UNKNOWN History of Any Multi-Drug Resistant Organisms: MRSA Date of last positivie culture/infection: 11/13/17 MDRO Source:: RIGHT TOE Past Surgical History: Coronary Bypass/CABG, Heart Catheterization Additional Past Surgical History / Comment(s): partial L nephrectomy, distal pancreatectomy, splenectomy-at 2000 CABG-3 vessel, EGD, colonoscopy, deviated septum surgery, skin/oral lesion removals, R carpal tunnel release, bilateral cataract removal, bilateral laser eye surgery for "leakage" Past Anesthesia/Blood Transfusion Reactions: Previous Problems w/ Anesthesia Additional Past Anesthesia/Blood Transfusion Reaction / Comment(s): 'TROUBLE COMING OUT OF ANESTESIA' - DELUSIONAL. Pt has received blood in past without reaction. Past Psychological History: Anxiety, Depression Additional Psychological History / Comment(s): Pt resides with his spouse. He uses a cane or walker to ambulate. He no longer drives. His spouse drives and manages his medications. Smoking Status: Never smoker Past Alcohol Use History: None Reported Past Drug Use History: None Reported - Past Family History Father Family Medical History: Myocardial Infarction (CA) Mother Family Medical History: COPD Medications and Allergies Home Medications Medication Instructions Recorded Confirmed Type Insulin Detemir [Levemir Flextouch] 58 units SQ HS 12/21/14 04/19/18 History Montelukast [Singulair] 10 mg PO HS 12/21/14 04/19/18 History Insulin Aspart [NovoLOG Flexpen] 17 units SQ AC-TID 02/07/16 04/19/18 History Magnesium Oxide [Mag-Ox] 250 mg PO DAILY 02/07/16 04/19/18 History Pravastatin Sodium 40 mg PO HS 02/07/16 04/19/18 History Zinc 50 mg PO DAILY 02/07/16 04/19/18 History Island-3 Fatty Acids/Fish Oil [Fish 1 cap PO DAILY 08/13/16 04/19/18 History Oil 1,000 mg Softgel] Acetaminophen Tab [Tylenol] 500 - 1,000 mg PO Q6HR PRN 03/17/17 04/19/18 History Pantoprazole [Protonix] 40 mg PO DAILY #30 tab 03/21/17 04/19/18 Rx Cyanocobalamin [Vitamin B-12] 500 mcg PO MOWEFR 11/12/17 04/19/18 History Insulin Aspart [NovoLOG Flexpen] See Protocol SQ AC-TID PRN 11/12/17 04/19/18 History Polyethylene Glycol 3350 [Miralax] 17 gm PO DAILY 11/12/17 04/19/18 History Budesonide-Formot 160-4.5 Mcg 2 puff INHALATION RT-BID 11/13/17 04/19/18 History [Symbicort 160-4.5 Mcg Inhaler] amLODIPine [Norvasc] 10 mg PO DAILY #30 tab 11/15/17 04/19/18 Rx Furosemide [Lasix] 40 mg PO BID@0900,1600 01/26/18 04/19/18 History Ipratropium-Albuterol Nebulize 3 ml INHALATION RT-TID 01/26/18 04/19/18 History [Duoneb 0.5 mg-3 mg/3 ml Soln] Lisinopril [Zestril] 5 mg PO QAM 01/26/18 04/19/18 History Spironolactone [Aldactone] 25 mg PO BID 01/26/18 04/19/18 History Escitalopram Oxalate [Lexapro] 10 mg PO HS 04/19/18 04/19/18 History Allergies Allergy/AdvReac Type Severity Reaction Status Date / Time Penicillins Allergy Unknown Rash/Hives Verified 04/19/18 22:41 atorvastatin calcium Allergy Unknown Verified 04/19/18 22:41 [From Lipitor] clonazepam [From Klonopin] Allergy Hallucinati Verified 04/19/18 22:41 ons codeine Allergy Hallucinati Verified 04/19/18 22:41 ons haloperidol [From Haldol] Allergy Hallucinati Verified 04/19/18 22:41 ons haloperidol lactate Allergy Hallucinati Verified 04/19/18 22:41 [From Haldol] ons hydromorphone HCl Allergy Hallucinati Verified 04/19/18 22:41 [From Dilaudid] ons methylphenidate HCl Allergy Hallucinati Verified 04/19/18 22:41 [From Ritalin] ons morphine Allergy Hallucinati Verified 04/19/18 22:41 ons propofol Allergy Hallucinati Verified 04/19/18 22:41 ons quetiapine fumarate Allergy Hallucinati Verified 04/19/18 22:41 [From Seroquel] ons Sulfa (Sulfonamide Allergy Unknown Verified 04/19/18 22:41 Antibiotics) vancomycin Allergy Unknown Verified 04/19/18 22:41 ativan AdvReac Unknown Uncoded 01/26/18 09:55 Physical Exam Vitals: Vital Signs Temp Pulse Resp BP Pulse Ox 04/20/18 15:30 88 04/20/18 15:20 87 18 04/20/18 08:47 16 04/20/18 06:07 96 04/20/18 05:00 65 18 111/70 95 04/20/18 04:20 98.9 F 61 24 115/60 96 04/20/18 04:00 65 18 112/64 97 04/20/18 03:29 98.8 F 63 33 H 105/55 95 04/20/18 03:00 66 26 H 97/56 96 04/20/18 02:30 97.8 F 66 22 100/65 97 04/20/18 02:00 66 22 103/45 97 04/20/18 01:30 70 23 97/54 95 04/20/18 01:00 101.7 F H 73 23 105/52 96 04/20/18 00:30 76 19 102/55 95 04/20/18 00:00 82 17 116/47 93 L 04/19/18 23:36 87 15 112/49 92 L 04/19/18 23:30 102.1 F H 85 16 118/53 92 L 04/19/18 23:16 90 23 121/63 91 L 04/19/18 23:05 90 23 121/63 04/19/18 22:35 103.1 F H 101 H 36 H 110/57 90 L 04/19/18 22:20 102.1 F H 101 H 42 H 130/40 91 L 04/19/18 22:06 104.0 F H 98 22 140/121 95 GENERAL EXAM: Alert, pleasant, 82-year-old white male, poor historian, comfortable in no apparent distress. HEAD: Normocephalic/atraumatic. EYES: Normal reaction of pupils, equal size. Conjunctiva pink, sclera white. NOSE: Clear with pink turbinates. THROAT: No erythema or exudates. NECK: No masses, no JVD, no thyroid enlargement, no adenopathy. CHEST: No chest wall deformity. Symmetrical expansion. LUNGS: Equal air entry with no crackles, wheeze, rhonchi or dullness. CVS: Regular rate and rhythm, normal S1 and S2, no gallops, no murmurs, no rubs ABDOMEN: Soft, nontender. No hepatosplenomegaly, normal bowel sounds, no guarding or rigidity. EXTREMITIES: No clubbing, no edema, no cyanosis, 2+ pulses and upper and lower extremities. MUSCULOSKELETAL: Muscle strength and tone normal. SPINE: No scoliosis or deformity SKIN: No rashes CENTRAL NERVOUS SYSTEM: Alert and oriented -2. No focal deficits, tone is normal in all 4 extremities. PSYCHIATRIC: Alert and oriented -2. Appropriate affect. Intact judgment and insight. Results - Laboratory Findings CBC and BMP: 04/20/18 11:17 04/20/18 11:17 PT/INR, D-dimer PT 10.4 sec (9.0-12.0) 04/19/18 22:10 INR 1.1 (<1.2) 04/19/18 22:10 Abnormal lab findings: Abnormal Labs 04/19/18 04/19/18 04/19/18 22:10 22:10 22:10 WBC 31.6 H RBC Hgb 11.8 L Hct 37.3 L MCV 77.7 L MCH 24.5 L MCHC RDW 21.0 H Neutrophils # 28.0 H Lymphocytes # Monocytes # Basophils # Sodium 135 L Potassium 5.2 H Chloride 96 L Carbon Dioxide BUN 29 H Creatinine 1.30 H Glucose POC Glucose (mg/dL) Hemoglobin A1c Plasma Lactic Acid Dean Calcium 10.3 H CK-MB (CK-2) 4.8 H Urine Protein Urine Glucose (UA) Urine Blood Ur Leukocyte Esterase 04/19/18 04/19/18 04/20/18 22:10 22:10 00:30 WBC RBC Hgb Hct MCV MCH MCHC RDW Neutrophils # Lymphocytes # Monocytes # Basophils # Sodium Potassium Chloride Carbon Dioxide BUN Creatinine Glucose POC Glucose (mg/dL) Hemoglobin A1c 8.9 H Plasma Lactic Acid Dean 2.6 H* Calcium CK-MB (CK-2) Urine Protein 1+ H Urine Glucose (UA) 1+ H Urine Blood Trace H Ur Leukocyte Esterase Trace H 04/20/18 04/20/18 04/20/18 05:04 08:28 08:30 WBC RBC Hgb Hct MCV MCH MCHC RDW Neutrophils # Lymphocytes # Monocytes # Basophils # Sodium Potassium Chloride Carbon Dioxide BUN Creatinine Glucose POC Glucose (mg/dL) 176 H 277 H 280 H Hemoglobin A1c Plasma Lactic Acid Dean Calcium CK-MB (CK-2) Urine Protein Urine Glucose (UA) Urine Blood Ur Leukocyte Esterase 04/20/18 04/20/18 04/20/18 11:17 11:17 12:22 WBC 49.4 H RBC 3.94 L Hgb 9.5 L D Hct 31.6 L MCV MCH 24.2 L MCHC 30.1 L RDW 21.4 H Neutrophils # 46.9 H Lymphocytes # 0.4 L Monocytes # 1.5 H Basophils # 0.4 H Sodium 131 L Potassium 5.6 H Chloride 96 L Carbon Dioxide 20 L BUN 35 H Creatinine 1.34 H Glucose 400 H POC Glucose (mg/dL) 439 H Hemoglobin A1c Plasma Lactic Acid Dean Calcium CK-MB (CK-2) Urine Protein Urine Glucose (UA) Urine Blood Ur Leukocyte Esterase - Diagnostic Findings Chest x-ray: report reviewed, image reviewed Additional studies: EKG reviewed Assessment and Plan Plan: Assessment: #1. Acute community acquired pneumonia, chest x-ray showed possible infiltrates at bilateral bases. #2. Leukocytosis, fever, altered mental status, acute kidney injury related to sepsis #3. Anion gap metabolic acidosis related to lactic acidosis secondary to pneumonia and sepsis, improved with IV hydration #4. Acute kidney injury #5. Mild hyperkalemia #6. Altered mental status, brain CT was negative for any acute findings #7. Severe COPD, and outpatient PFT showed FEV1 of 47% of predicted, an FVC of 46% predicted, and there is a component of restriction. Stable #8. Severe secondary pulmonary hypertension related to severe COPD #9. Chronic exertional dyspnea #10. History of renal cancer, status post partial nephrectomy, patient had a prolonged recovery course, requiring tracheostomy for failure to wean off the ventilator. Patient had since been decannulated #11. Hypertension #12. Diabetes mellitus type 2 #13. History of obstructive sleep apnea intolerant to CPAP #14. History of coronary artery disease with previous bypass grafting #15. Chronic systolic congestive heart failure with EF of 45% #16. BPH #17. Legs a small atrial fibrillation, not on any anticoagulation related to history of GI bleed in November 2017 #18. Left sixth and seventh rib fractures post fall Plan: Continue current antibiotic coverage, continue nebulized bronchodilators, will await the results of the blood, urine and sputum cultures. Continue the oral diuretics. We'll repeat blood work in the morning. Maintain aspiration precautions. Continue to monitor hemodynamics. Fever pattern. We'll continue to follow I performed a history & physical examination of the patient and discussed their management with my nurse practitioner, Juanita Miller. I reviewed the nurse practitioner's note and agree with the documented findings and plan of care. Lung sounds are positive for diminished breath sounds at the bases. The findings and the impression was discussed with the patient. I attest to the documentation by the nurse practitioner. Time with Patient: Greater than 30
[2018-04-20 16:25] LABS: Glucose,Whole Blood 430 mg/dL (75-99)
[2018-04-20] MEDS ORDERED: INSULIN REGULAR BOLUS (FROM DRIP BAG) IV ONE (17:15)
--- NOTE | 2018-04-20 17:20 | P.CONS ---
History of Present Illness - Reason for Consult Consult date: 04/20/18 - Chief Complaint Shortness of breath - History of Present Illness 82-year-old male well-known to the service with as many hospitalizations presents to the emergency center feeling poorly for the last few days. Patient's daughter is present and relates that last weekend he suffered a fall onto the left side of his chest. It may have ongoing pain since that point in time. He now is having difficulties with significant discomfort in left side of his chest he's having cough with some sputum production is not bloody however. He's been feeling weaker he's had fever chills and some altered mentation and constantly was brought to the emergency center. 104 fever was found evidence of significant pneumonia. Because of this he's been admitted in with his white blood cell count of 49.4 and history of MRSA of the infectious diseases consultation was requested. The patient apparently is a bit clearer now than when he was no emergency center. He recognizes me easily by name. However does have some difficulty elucidating the details of what happened over the last week. Review of Systems Patient relates he feels poorly overall HEENT:Denies headache or acute visual change. Denies sinus or mouth discomforts. Denies neck stiffness or pain. Denies significant oral cavity pain. Denies difficulty on swallowing. Lungs: As per the HPI has cough sputum production no hemoptysis some shortness of breath and left chest wall pain Cardiovascular: He has significant chest wall pain to the left side he has shortness of breath he's having cough No syncope but does have dyspnea on exertion Gastrointestinal:Denies nausea, vomiting, diarrhea, constipation, hematemesis, melena, hematochezia. No no significant change of bowel habit noticed. Musculoskeletal: denies significant myalgias or arthralgias. No new joint swelling. Denies new back pain. Skin: Denies new rash or lesions. No new ulcers or wounds are related.. Neuro: Some mild headache is not severe he has no new onset localized weakness, does not feel like himself Psychiatric:Denies anxiety or depression. Endocrine: Fatigued and has had some purposeful weight loss over time partly to help with his diabetes. Past Medical History Past Medical History: Coronary Artery Disease (CAD), Cancer, Heart Failure, COPD , CVA/TIA, Diabetes Mellitus, Eye Disorder, Hyperlipidemia, Hypertension, Myocardial Infarction ([place]), Osteoarthritis (OA), Prostate Disorder, Skin Disorder, Sleep Apnea/CPAP/BIPAP Additional Past Medical History / Comment(s): Recent anemia, blood and iron transfusions, right leg cellulitis, 2013 L renal cancer with surgery-partial nephrectomy/spleenectomy/distal portion of pancreas removed at [facility] , IDDM type II, TIA, [place] unknown date, BPH, gastritis, small hiatal hernia, past discitis T9-T10, arthritis bilateral hands/back, TARIQ-does not tolerate his CPAP , past R great toe ulcer/infection, bilateral laser eye surgery for "alittle leakage". Last Myocardial Infarction Date:: UNKNOWN History of Any Multi-Drug Resistant Organisms: MRSA Year Discovered:: 11/13/17 MDRO Source:: RIGHT TOE Past Surgical History: Coronary Bypass/CABG, Heart Catheterization Additional Past Surgical History / Comment(s): partial L nephrectomy, distal pancreatectomy, splenectomy-at [place], 2000 CABG-3 vessel, EGD, colonoscopy, deviated septum surgery, skin/oral lesion removals, R carpal tunnel release, bilateral cataract removal, bilateral laser eye surgery for "leakage" Past Anesthesia/Blood Transfusion Reactions: Previous Problems w/ Anesthesia Additional Past Anesthesia/Blood Transfusion Reaction / Comm: 'TROUBLE COMING OUT OF ANESTESIA' - DELUSIONAL. Pt has received blood in past without reaction. Past Psychological History: Anxiety, Depression Additional Psychological History / Comment(s): Pt resides with his spouse. He uses a cane or walker to ambulate. He no longer drives. His spouse drives and manages his medications. Data current tobacco smoker. No current alcohol use. 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 Past Alcohol Use History: None Reported Past Drug Use History: None Reported - Past Family History Father Family Medical History: Myocardial Infarction ([place]) Mother Family Medical History: COPD Medications and Allergies Home Medications and Allergies Comment(s): Current Medications Acetaminophen (Tylenol Tab) 650 mg PO Q4HR PRN PRN Reason: Fever and/ or Pain Albuterol/Ipratropium (Duoneb 0.5 Mg-3 Mg/3 Ml Soln) 3 ml INHALATION RT-Q4H PRN PRN Reason: shortness of breath Albuterol/Ipratropium (Duoneb 0.5 Mg-3 Mg/3 Ml Soln) 3 ml INHALATION RT-QID [place] Last Admin: 11/30/18 15:30 Dose: 3 ml Amlodipine Besylate (Norvasc) 10 mg PO DAILY [facility] Last Admin: 04/20/18 08:16 Dose: 10 mg Furosemide (Lasix) 40 mg PO BID@0900,1600 [facility] Last Admin: 04/20/18 08:16 Dose: 40 mg Sodium Chloride (Saline 0.9%) 1,000 mls @ 50 mls/hr IV .Q20H [facility] Last Admin: 04/20/18 08:16 Dose: 100 mls/hr Levofloxacin 750 mg/ IV (Solution) 150 mls @ 100 mls/hr IVPB Q48H [facility] Insulin Human Regular 100 unit (/ Sodium Chloride) 101 mls @ 0 mls/hr IV .Q0M [facility]; Protocol Insulin Aspart (Novolog) 17 unit SQ AC-TID [facility] Insulin Human Regular (Humulin R Bolus From Bag) 10.7 unit 0.1 unit/kg (10.7 unit) IV ONCE ONE Stop: 04/20/18 17:16 Lidocaine (Lidoderm) 1 patch TOPICAL DAILY [facility] Lisinopril (Zestril) 5 mg PO QAM [facility] Last Admin: 04/20/18 08:16 Dose: 5 mg Magnesium Oxide (Mag-Ox) 400 mg PO DAILY [facility] Miscellaneous Information (Pneumonia Protocol Utilized) 1 each PO ONCE PRN PRN Reason: Per Protocol Montelukast Sodium (Singulair) 10 mg PO HS [facility] Fish Oil 1000mg 1 cap PO DAILY [facility] Pantoprazole Sodium (Protonix) 40 mg PO DAILY [facility] Last Admin: 04/20/18 08:16 Dose: 40 mg Polyethylene Glycol (Miralax) 17 gm PO DAILY [facility] Last Admin: 04/20/18 08:16 Dose: 17 gm Pravastatin Sodium (Pravachol) 40 mg PO HS [facility] Spironolactone (Aldactone) 25 mg PO BID [facility] Last Admin: 04/20/18 08:16 Dose: 25 mg Zinc Sulfate (Orazinc) 220 mg PO DAILY [facility] Home Medications Medication Instructions Recorded Confirmed Type Insulin Detemir [Levemir Flextouch] 58 units SQ 12/21/14 04/19/18 History Montelukast [Singulair] 10 mg PO HS 12/21/14 04/19/18 History Insulin Aspart [NovoLOG Flexpen] 17 units SQ AC-TID 09/18/16 11/29/18 History Magnesium Oxide [Mag-Ox] 250 mg PO DAILY 02/07/16 04/19/18 History Pravastatin Sodium 40 mg PO HS 02/07/16 04/19/18 History Zinc 50 mg PO DAILY 02/07/16 04/19/18 History [place]-3 Fatty Acids/Fish Oil [Fish 1 cap PO DAILY 08/13/16 04/19/18 History Oil 1,000 mg Softgel] Acetaminophen Tab [Tylenol] 500 - 1,000 mg PO Q6HR PRN 03/17/17 04/19/18 History Pantoprazole [Protonix] 40 mg PO DAILY #30 tab 03/21/17 04/19/18 Rx Cyanocobalamin [Vitamin B-12] 500 mcg PO MOWEFR 11/12/17 04/19/18 History Insulin Aspart [NovoLOG Flexpen] See Protocol SQ AC-TID PRN 11/12/17 04/19/18 History Polyethylene Glycol 3350 [Miralax] 17 gm PO DAILY 11/12/17 04/19/18 History Budesonide-Formot 160-4.5 Mcg 2 puff INHALATION RT-BID 11/13/17 04/19/18 History [Symbicort 160-4.5 Mcg Inhaler] amLODIPine [Norvasc] 10 mg PO DAILY #30 tab 11/15/17 04/19/18 Rx Furosemide [Lasix] 40 mg PO BID@0900,1600 01/26/18 04/19/18 History Ipratropium-Albuterol Nebulize 3 ml INHALATION RT-TID 01/26/18 04/19/18 History [Duoneb 0.5 mg-3 mg/3 ml Soln] Lisinopril [Zestril] 5 mg PO QAM 01/26/18 04/19/18 History Spironolactone [Aldactone] 25 mg PO BID 01/26/18 04/19/18 History Escitalopram Oxalate [Lexapro] 10 mg PO HS 04/19/18 04/19/18 History Allergies Allergy/AdvReac Type Severity Reaction Status Date / Time Penicillins Allergy Unknown Rash/Hives Verified 04/19/18 22:41 atorvastatin calcium Allergy Unknown Verified 04/19/18 22:41 [From Lipitor] clonazepam [From Klonopin] Allergy Hallucinati Verified 04/19/18 22:41 ons codeine Allergy Hallucinati Verified 04/19/18 22:41 ons haloperidol [From Haldol] Allergy Hallucinati Verified 04/19/18 22:41 ons haloperidol lactate Allergy Hallucinati Verified 04/19/18 22:41 [From Haldol] ons hydromorphone HCl Allergy Hallucinati Verified 04/19/18 22:41 [From Dilaudid] ons methylphenidate HCl Allergy Hallucinati Verified 04/19/18 22:41 [From Ritalin] ons morphine Allergy Hallucinati Verified 04/19/18 22:41 ons propofol Allergy Hallucinati Verified 04/19/18 22:41 ons quetiapine fumarate Allergy Hallucinati Verified 04/19/18 22:41 [From Seroquel] ons Sulfa (Sulfonamide Allergy Unknown Verified 04/19/18 22:41 Antibiotics) vancomycin Allergy Unknown Verified 04/19/18 22:41 ativan AdvReac Unknown Uncoded 01/26/18 09:55 Physical Exam Vitals: Vital Signs Temp Pulse Pulse Resp BP BP Pulse Ox 04/20/18 15:30 88 04/20/18 15:20 87 18 04/20/18 15:00 97.8 F 90 20 118/67 92 L 04/20/18 08:47 16 04/20/18 06:07 96 04/20/18 05:00 65 18 111/70 95 04/20/18 04:20 98.9 F 61 24 115/60 96 04/20/18 04:00 65 18 112/64 97 04/20/18 03:29 98.8 F 63 33 H 105/55 95 04/20/18 03:00 66 26 H 97/56 96 04/20/18 02:30 97.8 F 66 22 100/65 97 04/20/18 02:00 66 22 103/45 97 04/20/18 01:30 70 23 97/54 95 04/20/18 01:00 101.7 F H 73 23 105/52 96 04/20/18 00:30 76 19 102/55 95 04/20/18 00:00 82 17 116/47 93 L 04/19/18 23:36 87 15 112/49 92 L 04/19/18 23:30 102.1 F H 85 16 118/53 92 L 04/19/18 23:16 90 23 121/63 91 L 04/19/18 23:05 90 23 121/63 04/19/18 22:35 103.1 F H 101 H 36 H 110/57 90 L 04/19/18 22:20 102.1 F H 101 H 42 H 130/40 91 L 04/19/18 22:06 104.0 F H 98 22 140/121 95 HEENT: Anicteric conjunctiva are pink and moist nasal mucosa grossly intact without significant lesions, there is no thrush. Neck: The neck is supple without significant lymphadenopathy or thyromegaly. Lungs: Symmetrical air entry is noted there are crackles especially at the left base, expiratory wheezes are scattered. Heart: Regular rate and rhythm with an audible S1-S2, no S3 no S4. There is no significant murmur click or rub, PMI was nondisplaced. Abdomen: Positive bowel sounds soft and nontender without palpable masses or organomegaly. There was no guarding or rebound. Extremities: The upper extremities have excellent pulses they are symmetric, no significant petechiae or telangiectasia. No splinter hemorrhages were noted. The lower extremities are free from significant edema. The peripheral pulses were 2+ and symmetric. Neuro: Awake alert oriented to person place struggling with time. Able to move upper and lower extremities upon command. No acute gross focal sensory motor deficits Results CBC & Chem 7: 04/20/18 11:17 04/20/18 11:17 Labs: Abnormal Lab Results - Last 24 Hours (Table) 04/19/18 04/19/18 04/19/18 Range/Units 22:10 22:10 22:10 WBC 31.6 H (3.8-10.6) k/uL RBC (4.30-5.90) m/uL Hgb 11.8 L (13.0-17.5) gm/dL Hct 37.3 L (39.0-53.0) % MCV 77.7 L (80.0-100.0) fL MCH 24.5 L (25.0-35.0) pg MCHC (31.0-37.0) g/dL RDW 21.0 H (11.5-15.5) % Neutrophils # 28.0 H (1.3-7.7) k/uL Lymphocytes # (1.0-4.8) k/uL Monocytes # (0-1.0) k/uL Basophils # (0-0.2) k/uL Sodium 135 L (137-145) mmol/L Potassium 5.2 H (3.5-5.1) mmol/L Chloride 96 L (98-107) mmol/L Carbon Dioxide (22-30) mmol/L BUN 29 H (9-20) mg/dL Creatinine 1.30 H (0.66-1.25) mg/dL Glucose (74-99) mg/dL POC Glucose (mg/dL) (75-99) mg/dL Hemoglobin A1c (4.0-6.0) % Plasma Lactic Acid Dean (0.7-2.0) mmol/L Calcium 10.3 H (8.4-10.2) mg/dL CK-MB (CK-2) 4.8 H (0.0-2.4) ng/mL Urine Protein (Negative) Urine Glucose (UA) (Negative) Urine Blood (Negative) Ur Leukocyte Esterase (Negative) 04/19/18 04/19/18 04/20/18 Range/Units 22:10 22:10 00:30 WBC (3.8-10.6) k/uL RBC (4.30-5.90) m/uL Hgb (13.0-17.5) gm/dL Hct (39.0-53.0) % MCV (80.0-100.0) fL MCH (25.0-35.0) pg MCHC (31.0-37.0) g/dL RDW (11.5-15.5) % Neutrophils # (1.3-7.7) k/uL Lymphocytes # (1.0-4.8) k/uL Monocytes # (0-1.0) k/uL Basophils # (0-0.2) k/uL Sodium (137-145) mmol/L Potassium (3.5-5.1) mmol/L Chloride (98-107) mmol/L Carbon Dioxide (22-30) mmol/L BUN (9-20) mg/dL Creatinine (0.66-1.25) mg/dL Glucose (74-99) mg/dL POC Glucose (mg/dL) (75-99) mg/dL Hemoglobin A1c 8.9 H (4.0-6.0) % Plasma Lactic Acid Dean 2.6 H* (0.7-2.0) mmol/L Calcium (8.4-10.2) mg/dL CK-MB (CK-2) (0.0-2.4) ng/mL Urine Protein 1+ H (Negative) Urine Glucose (UA) 1+ H (Negative) Urine Blood Trace H (Negative) Ur Leukocyte Esterase Trace H (Negative) 04/20/18 04/20/18 04/20/18 Range/Units 05:04 08:28 08:30 WBC (3.8-10.6) k/uL RBC (4.30-5.90) m/uL Hgb (13.0-17.5) gm/dL Hct (39.0-53.0) % MCV (80.0-100.0) fL MCH (25.0-35.0) pg MCHC (31.0-37.0) g/dL RDW (11.5-15.5) % Neutrophils # (1.3-7.7) k/uL Lymphocytes # (1.0-4.8) k/uL Monocytes # (0-1.0) k/uL Basophils # (0-0.2) k/uL Sodium (137-145) mmol/L Potassium (3.5-5.1) mmol/L Chloride (98-107) mmol/L Carbon Dioxide (22-30) mmol/L BUN (9-20) mg/dL Creatinine (0.66-1.25) mg/dL Glucose (74-99) mg/dL POC Glucose (mg/dL) 176 H 277 H 280 H (75-99) mg/dL Hemoglobin A1c (4.0-6.0) % Plasma Lactic Acid Dean (0.7-2.0) mmol/L Calcium (8.4-10.2) mg/dL CK-MB (CK-2) (0.0-2.4) ng/mL Urine Protein (Negative) Urine Glucose (UA) (Negative) Urine Blood (Negative) Ur Leukocyte Esterase (Negative) 04/20/18 04/20/18 04/20/18 Range/Units 11:17 11:17 12:22 WBC 49.4 H (3.8-10.6) k/uL RBC 3.94 L (4.30-5.90) m/uL Hgb 9.5 L D (13.0-17.5) gm/dL Hct 31.6 L (39.0-53.0) % MCV (80.0-100.0) fL MCH 24.2 L (25.0-35.0) pg MCHC 30.1 L (31.0-37.0) g/dL RDW 21.4 H (11.5-15.5) % Neutrophils # 46.9 H (1.3-7.7) k/uL Lymphocytes # 0.4 L (1.0-4.8) k/uL Monocytes # 1.5 H (0-1.0) k/uL Basophils # 0.4 H (0-0.2) k/uL Sodium 131 L (137-145) mmol/L Potassium 5.6 H (3.5-5.1) mmol/L Chloride 96 L (98-107) mmol/L Carbon Dioxide 20 L (22-30) mmol/L BUN 35 H (9-20) mg/dL Creatinine 1.34 H (0.66-1.25) mg/dL Glucose 400 H (74-99) mg/dL POC Glucose (mg/dL) 439 H (75-99) mg/dL Hemoglobin A1c (4.0-6.0) % Plasma Lactic Acid Dean (0.7-2.0) mmol/L Calcium (8.4-10.2) mg/dL CK-MB (CK-2) (0.0-2.4) ng/mL Urine Protein (Negative) Urine Glucose (UA) (Negative) Urine Blood (Negative) Ur Leukocyte Esterase (Negative) 04/20/18 04/20/18 Range/Units 15:35 16:03 WBC (3.8-10.6) k/uL RBC (4.30-5.90) m/uL Hgb (13.0-17.5) gm/dL Hct (39.0-53.0) % MCV (80.0-100.0) fL MCH (25.0-35.0) pg MCHC (31.0-37.0) g/dL RDW (11.5-15.5) % Neutrophils # (1.3-7.7) k/uL Lymphocytes # (1.0-4.8) k/uL Monocytes # (0-1.0) k/uL Basophils # (0-0.2) k/uL Sodium (137-145) mmol/L Potassium (3.5-5.1) mmol/L Chloride (98-107) mmol/L Carbon Dioxide (22-30) mmol/L BUN (9-20) mg/dL Creatinine (0.66-1.25) mg/dL Glucose (74-99) mg/dL POC Glucose (mg/dL) 430 H 407 H (75-99) mg/dL Hemoglobin A1c (4.0-6.0) % Plasma Lactic Acid Dean (0.7-2.0) mmol/L Calcium (8.4-10.2) mg/dL CK-MB (CK-2) (0.0-2.4) ng/mL Urine Protein (Negative) Urine Glucose (UA) (Negative) Urine Blood (Negative) Ur Leukocyte Esterase (Negative) Microbiology - Last 24 Hours (Table) 04/20/18 00:30 Urine Culture - Preliminary Urine,Voided Laboratory Results WBC 49.4 k/uL (3.8-10.6) H 04/20/18 11:17 RBC 3.94 m/uL (4.30-5.90) L 04/20/18 11:17 Hgb 9.5 gm/dL (13.0-17.5) L D 04/20/18 11:17 Hct 31.6 % (39.0-53.0) L 04/20/18 11:17 MCV 80.2 fL (80.0-100.0) 04/20/18 11:17 MCH 24.2 pg (25.0-35.0) L 04/20/18 11:17 MCHC 30.1 g/dL (31.0-37.0) L 04/20/18 11:17 RDW 21.4 % (11.5-15.5) H 04/20/18 11:17 Plt Count 398 k/uL (150-450) 04/20/18 11:17 Neutrophils % 95 % 04/20/18 11:17 Lymphocytes % 1 % 04/20/18 11:17 Monocytes % 3 % 04/20/18 11:17 Eosinophils % 0 % 04/20/18 11:17 Basophils % 1 % 04/20/18 11:17 Neutrophils # 46.9 k/uL (1.3-7.7) H 04/20/18 11:17 Lymphocytes # 0.4 k/uL (1.0-4.8) L 04/20/18 11:17 Monocytes # 1.5 k/uL (0-1.0) H 04/20/18 11:17 Eosinophils # 0.0 k/uL (0-0.7) 04/20/18 11:17 Basophils # 0.4 k/uL (0-0.2) H 04/20/18 11:17 Manual Slide Review Performed 04/19/18 22:10 Large Platelets Present 04/19/18 22:10 Hypochromasia Slight 04/20/18 11:17 Poikilocytosis (manual Present 04/19/18 22:10 Anisocytosis Moderate 04/20/18 11:17 Anisocytosis (manual) Present 04/19/18 22:10 Microcytosis Slight 04/20/18 11:17 Target Cells Present 04/19/18 22:10 [place] Bodies Present 04/19/18 22:10 PT 10.4 sec (9.0-12.0) 04/19/18 22:10 INR 1.1 (<1.2) 04/19/18 22:10 APTT 23.8 sec (22.0-30.0) 04/19/18 22:10 Sodium 131 mmol/L (137-145) L 04/20/18 11:17 Potassium 5.6 mmol/L (3.5-5.1) H 04/20/18 11:17 Chloride 96 mmol/L (98-107) L 04/20/18 11:17 Carbon Dioxide 20 mmol/L (22-30) L 04/20/18 11:17 Anion Gap 15 mmol/L 04/20/18 11:17 BUN 35 mg/dL (9-20) H 04/20/18 11:17 Creatinine 1.34 mg/dL (0.66-1.25) H 04/20/18 11:17 Est GFR (CKD-EPI)AfAm 58 (>60 ml/min/1.73 sqM) 04/20/18 11:17 Est GFR (CKD-EPI)NonAf 50 (>60 ml/min/1.73 sqM) 04/20/18 11:17 Glucose 400 mg/dL (74-99) H 04/20/18 11:17 POC Glucose (mg/dL) 407 mg/dL (75-99) H 04/20/18 16:03 POC Glu [employer] Microsc[employer] Tarah Li 04/20/18 16:[address] Glu mg/dL 209 04/19/18 22:10 Hemoglobin A1c 8.9 % (4.0-6.0) H 04/19/18 22:10 Lactic Ac Sepsis Rflx Y 04/19/18 22:49 Plasma Lactic Acid Dean 1.5 mmol/L (0.7-2.0) 04/20/18 02:33 Calcium 9.2 mg/dL (8.4-10.2) 04/20/18 11:17 Total Bilirubin 0.6 mg/dL (0.2-1.3) 04/20/18 11:17 AST 33 U/L (17-59) 04/20/18 11:17 ALT 33 U/L (21-72) 04/20/18 11:17 Alkaline Phosphatase 75 U/L (38-126) 04/20/18 11:17 Total Creatine Kinase 168 U/L (55-170) 04/19/18 22:10 CK-MB (CK-2) 4.8 ng/mL (0.0-2.4) H 04/19/18 22:10 CK-MB (CK-2) Rel Index 2.9 04/19/18 22:10 Troponin I 0.017 ng/mL (0.000-0.034) 04/19/18 22:10 Total Protein 6.6 g/dL (6.3-8.2) 04/20/18 11:17 Albumin 3.9 g/dL (3.5-5.0) 04/20/18 11:17 Urine Color Yellow 04/20/18 00:30 Urine Appearance Clear (Clear) 04/20/18 00:30 Urine pH 5.5 (5.0-8.0) 04/20/18 00:30 Ur Specific [place] 1.013 (1.001-1.035) 04/20/18 00:30 Urine Protein 1+ (Negative) H 04/20/18 00:30 Urine Glucose (UA) 1+ (Negative) H 04/20/18 00:30 Urine Ketones Negative (Negative) 04/20/18 0030 Urine Blood Trace (Negative) H 04/20/18 00:30 Urine Nitrite Negative (Negative) 04/20/18: Urine Bilirubin Negative (Negative) 04/20/18: Urine Urobilinogen <2.0 mg/dL (<2.0) 04/20/18 Ur Leukocyte Esterase Trace (Negative) H 04/20/18:30 Urine RBC 1 /hpf (0-5) 04/20/18: Urine WBC 4 /hpf (0-5) 04/20/18 Ur Squamous Epith Cells <1 /hpf (0-4) 04/20/18 0030 Influenza Type A RNA Not Detected (Not Detectd) 04/19/18 22:34 Influenza Type B (PCR) Not Detected (Not Detectd) 04/19/18 22:34 Microbiology 04/20/18 00: Urine,Voided Urine Culture - Preliminary Abdominal x-ray: report reviewed (Chronic lung disease rib views with evidence of fracture ribs 6 and 7 in the left) Assessment and Plan (1) Fever Narrative/Plan: 82-year-old male with multiple medical troubles presents to emergency center after having a fall last weekend. He is having ongoing pain to the left side of his chest. He developed a fever to 104 with some altered mental status and increasing weakness and consequently was evaluated. At The presentation temperature 104 was noted and is now improved with hydration and Tylenol therapy. The patient is evidence of the rib fractures likely causing the underlying pneumonic problem resulting in the high-grade fever and sepsis. He fortunately this point and is feeling slightly better. Antibiotic therapy was started with Levaquin. Patient has a known history of MRSA infection. Consequently concern to MRSA pneumonia as well as bacteremia this time with his current symptoms. Patient has a listed ALLERGY to vancomycin which is caused significant difficulties in the past and consequently linezolide will be utilized. Blood cultures are pending. Patient the family are instructed on the importance of his incentive spirometer , the patient is given a device and instructed how to use it and shows good technique. The importance of utilizing maneuvers to improve his pulmonary function is important. Blood cultures will be repeated Current Visit: Yes Status: Acute Code(s): R50.9 - FEVER, UNSPECIFIED SNOMED Code(s): 780512501 (2) Leukocytosis Current Visit: Yes Status: Acute Code(s): D72.829 - ELEVATED WHITE BLOOD CELL COUNT, UNSPECIFIED SNOMED Code(s): 961586587 (3) Pneumonia Current Visit: Yes Status: Acute Code(s): J18.9 - PNEUMONIA, UNSPECIFIED ORGANISM SNOMED Code(s): 334745763
[2018-04-20 17:23] LABS: Glucose,Whole Blood 423 mg/dL (75-99)
[2018-04-20] MEDS: LIDOCAINE 5% PATCH TOPICAL SCH (17:26)
[2018-04-20] MEDS: INSULIN REGULAR 100 UNIT in SODIUM CHLORIDE 0.9% 100 ML IV SCH (17:27)
[2018-04-20] MEDS: ACETAMINOPHEN TAB 325 MG TAB PO PRN (17:39)
[2018-04-20 17:59] LABS: Glucose,Whole Blood 374 mg/dL (75-99)
[2018-04-20 18:40] LABS: Glucose,Whole Blood 277 mg/dL (75-99)
[2018-04-20 19:42] LABS: Glucose,Whole Blood 223 mg/dL (75-99)
[2018-04-20 20:28] LABS: Calcium 9.5 mg/dL (8.4-10.2); Potassium 4.9 mmol/L (3.5-5.1)
[2018-04-20] MEDS ORDERED: INSULIN DETEMIR 100 UNIT/ML 10 ML VIAL SQ SCH (21:00)
[2018-04-20] MEDS: PRAVASTATIN SODIUM 40 MG TAB PO SCH (22:35)
[2018-04-20] MEDS: MONTELUKAST 10 MG TAB PO SCH (22:35)
[2018-04-20 22:45] LABS: Glucose,Whole Blood 155 mg/dL (75-99)
[2018-04-20] MEDS: SYMBICORT 160-4.5 MCG INHALER INHALATION SCH (23:20)
[2018-04-21 00:04] LABS: Glucose,Whole Blood 199 mg/dL (75-99)
[2018-04-21] MEDS: ACETAMINOPHEN TAB 325 MG TAB PO PRN ×4 (02:01→20:01)
[2018-04-21 02:11] LABS: Glucose,Whole Blood 205 mg/dL (75-99)
[2018-04-21 05:05] LABS: Glucose,Whole Blood 187 mg/dL (75-99)
[2018-04-21] MEDS: IPRATROPIUM-ALBUTEROL 3 ML NEB INHALATION SCH ×4 (07:18→19:02)
[2018-04-21] MEDS: SYMBICORT 160-4.5 MCG INHALER INHALATION SCH ×2 (07:18→19:02)
[2018-04-21 07:29] LABS: Glucose,Whole Blood 169 mg/dL (75-99)
[2018-04-21 09:21] LABS: Glucose,Whole Blood 271 mg/dL (75-99)
[2018-04-21 09:28] LABS: Albumin 4.1 g/dL (3.5-5.0); Calcium 10.2 mg/dL (8.4-10.2); Potassium 4.7 mmol/L (3.5-5.1); Total Bilirubin 0.4 mg/dL (0.2-1.3); Total Protein 7.5 g/dL (6.3-8.2)
[2018-04-21 09:37] LABS: Anisocytosis Moderate; Basophils # (A) 0.1 k/uL (0-0.2); Basophils % (A) 0 %; Eosinophils % (A) 0 %; HCT 34.6 % (39.0-53.0); HGB 10.9 gm/dL (13.0-17.5); Hypochromasia Slight; Lymphocytes # (A) 2.3 k/uL (1.0-4.8); Lymphocytes % (A) 6 %; MCHC 31.5 g/dL (31.0-37.0); MCV 79.3 fL (80.0-100.0); Mean Platelet Volume 7.6; Microcytosis Moderate; Monocytes # (A) 1.7 k/uL (0-1.0); Monocytes % (A) 4 %; Neutrophils # (A) 34.3 k/uL (1.3-7.7); Neutrophils % (A) 89 %; Platelet Count 454 k/uL (150-450); RBC 4.36 m/uL (4.30-5.90); RDW 21.1 % (11.5-15.5); WBC 38.7 k/uL (3.8-10.6)
[2018-04-21] MEDS: FISH OIL 1000MG PO SCH (09:39)
[2018-04-21] MEDS: LIDOCAINE 5% PATCH TOPICAL SCH (09:41)
[2018-04-21] MEDS: SPIRONOLACTONE 25 MG TAB PO SCH ×2 (09:41→22:11)
[2018-04-21] MEDS: POLYETHYLENE GLYCOL 3350 17 GM POWD.PACK PO SCH (09:41)
[2018-04-21] MEDS: amLODIPine 10 MG TAB PO SCH (09:41)
[2018-04-21] MEDS: FUROSEMIDE 40 MG TAB PO SCH ×2 (09:41→15:50)
[2018-04-21] MEDS: ZINC SULFATE 220 MG CAP PO SCH (09:41)
[2018-04-21] MEDS: MAGNESIUM OXIDE 400 MG TAB PO SCH (09:41)
[2018-04-21] MEDS: PANTOPRAZOLE 40 MG TABLET PO SCH (09:41)
[2018-04-21] MEDS: LISINOPRIL 5 MG TAB PO SCH (09:41)
[2018-04-21] MEDS: INSULIN ASPART 100 UNIT/ML 1 ML 10 ML VIAL SQ SCH ×4 (09:44→22:11)
[2018-04-21] MEDS: INSULIN REGULAR 100 UNIT in SODIUM CHLORIDE 0.9% 100 ML IV SCH (09:46)
[2018-04-21 11:05] LABS: Glucose,Whole Blood 278 mg/dL (75-99)
[2018-04-21] MEDS ORDERED: INSULIN DETEMIR 100 UNIT/ML 10 ML VIAL SQ SCH (11:30)
--- NOTE | 2018-04-21 12:29 | P.PN ---
Subjective 82-year-old male who presented to the emergency room with a chief complaint of shortness of breath and cough for the past two to three days. The patient was found to be hypoxic in the 80s, tachycardic, tachypneic, and febrile in the emergency room. He was placed on bipap originally with improvement in his respiratory status, currently on nasal cannula. The patient does report he has fallen a few times at home recently and complains of pain on the left side of his chest. Rib xray revealed fractures of left sixth and seventh rib. Chest x-ray completed in the emergency room reveals pulmonary fibrosis. No definite heart failure. CT of the brain revealed age-related atrophic and chronic small vessel ischemic changes without acute intracranial process. Laboratory data upon admission revealed white count 31.6. Platelet count 385. Hemoglobin 11.8. Sodium 135. Potassium 5.2. BUN 29. Creatinine 1.3. Lactic acid 2.6. Repeat 1.5. Troponin 0.017. Repeat blood work prior reveals white count 49.4. Hemoglobin 9.5. Platelet count 398. Sodium 131. Potassium 5.6. BUN 35. Creatinine 1.34. Testing for influenza A and B was negative.Consultations were placed to pulmonary, infectious disease, and a pathology review of his labs due to the significant leukocytosis.. 04/21/2018. His leukocytosis is most likely reactive, pathology review is pending. He has the 2 rib fractures on the left and the pneumonia. He feels better today. He was found in a chair sitting at this time. He denies any chest pains other than the left side of the ribs, no chest pressure, shortness of breath only when he exerts himself. He denies any nausea or vomiting today. White blood cell count is 38.7. His hyperkalemia has now resolved and currently is 4.7. His hyperglycemia is much improved with insulin drip. Objective - Vital Signs Vital signs: Vital Signs Temp 96.1 F L 04/21/18 06:00 Pulse 66 04/21/18 11:34 Resp 20 04/21/18 06:00 BP 125/79 04/21/18 06:00 Pulse Ox 94 L 04/21/18 06:00 Intake & Output 04/20/18 04/21/18 04/21/18 18:59 06:59 18:59 Intake Total 31.718 354.792 14.49 Balance 31.718 354.792 14.49 Intake: Intake, IV Titration 31.718 54.792 14.49 Amount Insulin Regular 100 unit 31.718 54.792 14.49 In Sodium Chloride 0.9% 100 ml @ Titrate IV .Q0M [facility] Rx#:[id number] Oral 300 Other: Voiding Method Toilet # Voids 1 - Exam GENERAL: This is a 82-year-old male in no apparent distress at the time of examination. Pleasant and cooperative. Neck: supple. RESPIRATORY: Diminished. Coarse. No wheezes, rales, or rhonchi. No use of accessory muscles. Patient maintaining oxygen saturation greater than 92%. Pain and tenderness noted upon palpation of left lateral chest wall. CARDIOVASCULAR: Regular rate and rhythm. S1 and S2 noted. No JVD noted. No S3 or S4 noted. GASTROINTESTINAL: Only distended due to truncal obesity Abdomen soft and round. Normal active bowel sounds auscultated x 4 quadrants. No pain or tenderness noted upon palpation. INTEGUMENTARY: No cyanosis. No jaundice. No rashes noted. No cellulitis noted. EXTREMITIES: 2+ peripheral pulses.+2 lower extremity edema extending up to the knee. No calf tenderness noted. NEUROLOGIC: Cranial nerves II-XII grossly intact. PSYCHIATRIC: Awake, alert, and oriented X 3. - Labs CBC & Chem 7: 04/21/18 08:32 04/21/18 08:32 Labs: Abnormal Lab Results - Last 24 Hours (Table) 04/19/18 04/20/18 04/20/18 Range/Units 22:10 11:17 12:22 WBC 49.4 H (3.8-10.6) k/uL RBC 3.94 L (4.30-5.90) m/uL Hgb 9.5 L D (13.0-17.5) gm/dL Hct 31.6 L (39.0-53.0) % MCV (80.0-100.0) fL MCH 24.2 L (25.0-35.0) pg MCHC 30.1 L (31.0-37.0) g/dL RDW 21.4 H (11.5-15.5) % Plt Count (150-450) k/uL Neutrophils # 46.9 H (1.3-7.7) k/uL Lymphocytes # 0.4 L (1.0-4.8) k/uL Monocytes # 1.5 H (0-1.0) k/uL Basophils # 0.4 H (0-0.2) k/uL Sodium (137-145) mmol/L Chloride (98-107) mmol/L Carbon Dioxide (22-30) mmol/L BUN (9-20) mg/dL Creatinine (0.66-1.25) mg/dL Glucose (74-99) mg/dL POC Glucose (mg/dL) 439 H (75-99) mg/dL Hemoglobin A1c 8.9 H (4.0-6.0) % 04/20/18 04/20/18 04/20/18 Range/Units 15:35 16:03 17:20 WBC (3.8-10.6) k/uL RBC (4.30-5.90) m/uL Hgb (13.0-17.5) gm/dL Hct (39.0-53.0) % MCV (80.0-100.0) fL MCH (25.0-35.0) pg MCHC (31.0-37.0) g/dL RDW (11.5-15.5) % Plt Count (150-450) k/uL Neutrophils # (1.3-7.7) k/uL Lymphocytes # (1.0-4.8) k/uL Monocytes # (0-1.0) k/uL Basophils # (0-0.2) k/uL Sodium (137-145) mmol/L Chloride (98-107) mmol/L Carbon Dioxide (22-30) mmol/L BUN (9-20) mg/dL Creatinine (0.66-1.25) mg/dL Glucose (74-99) mg/dL POC Glucose (mg/dL) 430 H 407 H 423 H (75-99) mg/dL Hemoglobin A1c (4.0-6.0) % 04/20/18 04/20/18 04/20/18 Range/Units 17:56 18:37 19:36 WBC (3.8-10.6) k/uL RBC (4.30-5.90) m/uL Hgb (13.0-17.5) gm/dL Hct (39.0-53.0) % MCV (80.0-100.0) fL MCH (25.0-35.0) pg MCHC (31.0-37.0) g/dL RDW (11.5-15.5) % Plt Count (150-450) k/uL Neutrophils # (1.3-7.7) k/uL Lymphocytes # (1.0-4.8) k/uL Monocytes # (0-1.0) k/uL Basophils # (0-0.2) k/uL Sodium (137-145) mmol/L Chloride (98-107) mmol/L Carbon Dioxide (22-30) mmol/L BUN (9-20) mg/dL Creatinine (0.66-1.25) mg/dL Glucose (74-99) mg/dL POC Glucose (mg/dL) 374 H 277 H 223 H (75-99) mg/dL Hemoglobin A1c (4.0-6.0) % 04/20/18 04/20/18 04/20/18 Range/Units 20:01 22:06 23:59 WBC (3.8-10.6) k/uL RBC (4.30-5.90) m/uL Hgb (13.0-17.5) gm/dL Hct (39.0-53.0) % MCV (80.0-100.0) fL MCH (25.0-35.0) pg MCHC (31.0-37.0) g/dL RDW (11.5-15.5) % Plt Count (150-450) k/uL Neutrophils # (1.3-7.7) k/uL Lymphocytes # (1.0-4.8) k/uL Monocytes # (0-1.0) k/uL Basophils # (0-0.2) k/uL Sodium 131 L (137-145) mmol/L Chloride 95 L (98-107) mmol/L Carbon Dioxide 21 L (22-30) mmol/L BUN 38 H (9-20) mg/dL Creatinine 1.41 H (0.66-1.25) mg/dL Glucose 183 H (74-99) mg/dL POC Glucose (mg/dL) 155 H 199 H (75-99) mg/dL Hemoglobin A1c (4.0-6.0) % 04/21/18 04/21/18 04/21/18 Range/Units 02:06 04:58 07:16 WBC (3.8-10.6) k/uL RBC (4.30-5.90) m/uL Hgb (13.0-17.5) gm/dL Hct (39.0-53.0) % MCV (80.0-100.0) fL MCH (25.0-35.0) pg MCHC (31.0-37.0) g/dL RDW (11.5-15.5) % Plt Count (150-450) k/uL Neutrophils # (1.3-7.7) k/uL Lymphocytes # (1.0-4.8) k/uL Monocytes # (0-1.0) k/uL Basophils # (0-0.2) k/uL Sodium (137-145) mmol/L Chloride (98-107) mmol/L Carbon Dioxide (22-30) mmol/L BUN (9-20) mg/dL Creatinine (0.66-1.25) mg/dL Glucose (74-99) mg/dL POC Glucose (mg/dL) 205 H 187 H 169 H (75-99) mg/dL Hemoglobin A1c (4.0-6.0) % 04/21/18 04/21/18 04/21/18 Range/Units 08:32 08:32 09:19 WBC 38.7 H (3.8-10.6) k/uL RBC (4.30-5.90) m/uL Hgb 10.9 L (13.0-17.5) gm/dL Hct 34.6 L (39.0-53.0) % MCV 79.3 L (80.0-100.0) fL MCH (25.0-35.0) pg MCHC (31.0-37.0) g/dL RDW 21.1 H (11.5-15.5) % Plt Count 454 H (150-450) k/uL Neutrophils # (1.3-7.7) k/uL Lymphocytes # (1.0-4.8) k/uL Monocytes # (0-1.0) k/uL Basophils # (0-0.2) k/uL Sodium (137-145) mmol/L Chloride (98-107) mmol/L Carbon Dioxide (22-30) mmol/L BUN 41 H (9-20) mg/dL Creatinine 1.37 H (0.66-1.25) mg/dL Glucose 172 H (74-99) mg/dL POC Glucose (mg/dL) 271 H (75-99) mg/dL Hemoglobin A1c (4.0-6.0) % 04/21/18 Range/Units 11:02 WBC (3.8-10.6) k/uL RBC (4.30-5.90) m/uL Hgb (13.0-17.5) gm/dL Hct (39.0-53.0) % MCV (80.0-100.0) fL MCH (25.0-35.0) pg MCHC (31.0-37.0) g/dL RDW (11.5-15.5) % Plt Count (150-450) k/uL Neutrophils # (1.3-7.7) k/uL Lymphocytes # (1.0-4.8) k/uL Monocytes # (0-1.0) k/uL Basophils # (0-0.2) k/uL Sodium (137-145) mmol/L Chloride (98-107) mmol/L Carbon Dioxide (22-30) mmol/L BUN (9-20) mg/dL Creatinine (0.66-1.25) mg/dL Glucose (74-99) mg/dL POC Glucose (mg/dL) 278 H (75-99) mg/dL Hemoglobin A1c (4.0-6.0) % Microbiology - Last 24 Hours (Table) 04/20/18 19:30 Gram Stain - Preliminary Sputum Sputum Culture - Preliminary 04/19/18 22:10 Blood Culture - Preliminary Blood No Growth after 24 hours 04/20/18 00:30 Urine Culture - Preliminary Urine,Voided Assessment and Plan Plan: ASSESSMENT: Sepsis with profound leukocytosis, tachycardia, tachypnea, and fever, present on admission Community-acquired pneumonia Fracture of left sixth and seventh rib, status post fall Acute kidney injury, creatinine 1.30 on admission, baseline 1.0 Hyperkalemia Diabetes mellitus, type II Hyperglycemia secondary to uncontrolled diabetes mellitus Paroxysmal atrial fibrillation not on long-term anticoagulation secondary to GI bleed, November 2017 Hospitalization in November 2017 secondary to acute blood loss anemia COPD, no evidence of acute exacerbation History of obstructive sleep apnea, patient does not tolerate CPAP History of coronary artery disease with previous CABG 3 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 Await further recommendations and input Consult Dr. Loza, infectious disease for his pneumonia history and history of MRSA. Allergy to review a CBC to evaluate for atypical cells Cultures pending Novolog sliding scale in addition to novolog 15 units with meals, Levemir, 40 units now, discontinue his insulin scale in 1 hour, Pain with multiple allergies to narcotics including codeine, dilaudid, and morphine. Avoid toradol due to patients age and decreased kidney function. Will order tylenol and lidoderm patch. LINDA hose to LE. Elevate legs while in bed to reduce edema. Home meds as appropriate Monitor labs GI prophylaxis: Protonix 40 mg PO Daily DVT prophylaxis: LINDA hose to bilateral lower extremities Monitor vital signs and address as appropriate Discharge planning: Patient to return home when stable Further recommendations pending patient's course Repeat labs in a.m., he'll be reevaluated in the next 24 hours.
[2018-04-21 12:36] LABS: Glucose,Whole Blood 215 mg/dL (75-99)
[2018-04-21 13:32] LABS: Glucose,Whole Blood 177 mg/dL (75-99)
[2018-04-21] MEDS: SODIUM CHLORIDE 0.9% 1,000 ML IV SCH (13:47)
--- NOTE | 2018-04-21 13:49 | P.PN ---
Subjective Progress Note Date: 04/21/18 Principal diagnosis: Acute community acquired pneumonia This is a 82-year-old white male patient of Dr. Quesada, was brought in to the emergency department per EMS on 04/19/2018 for evaluation of moderate respiratory distress, cough, not feeling well, his symptoms have been going on over last couple of days. He was febrile with a temp of 104F, he was tachycardic, tachypneic, hypoxemic, with the pulse ox of 89% on room air. Patient is a poor historian. Chest x-ray was completed in the emergency department and showed coarsening of the lung markings, pulmonary fibrosis, poor inspiratory effort, no definite heart failure. No pleural effusions. Patient follows with Dr. Vicente in the pulmonary clinic for his history of COPD, and his latest PFT from from 12/13/2017 showed FEV1 of 1.36 L or 47% of predicted, FVC of 1.84 L of 46% of predicted, consistent with obstructive and mostly restrictive pulmonary defect. Other medical history includes hypertension, type 2 diabetes, paroxysmal atrial fibrillation history of partial left nephrectomy for renal cancer and patient had a prolonged hospital course following his surgery at [facility] requiring intubation and mechanical ventilation for failure to wean. He did have a tracheostomy placed at that time , and did spend some time in the rehab facility and was subsequently weaned off the mechanical ventilator, and subsequently decannulated. Patient also has severe secondary pulmonary hypertension related to his history of COPD, cardiomyopathy with impaired left ventricular systolic function with EF of 45%- 50%, with right ventricular systolic pressure of 89 mmHg. Labs show WBC of 31.6 , hemoglobin of 11.8, sodium was 135, potassium is 5.2, chloride is 96, 9 gap was 13, B1 is 29, creatinine is 1.3, plasma lactic acid was 2.6 on admission, troponin was 0.017, urinalysis showed trace blood, and trace leuk trase, influenza screen was negative. Patient was fluid resuscitated, he received a liter of 0.9 normal saline in the emergency department, his maintenance IV fluids is 0.9 normal saline at a rate of 50 ML per hour and subsequently his lactic acid improved and is down to 1.5 on today's labs. His leukocytosis has increased, his white count is up to 49.4, hemoglobin is 9.5, sodium is 131, potassium is 5.6, chloride is 96, CO2 is 20. Patient was started on empiric antibiotics, he has multiple ALLERGIES, he received a dose of gentamicin, was started on IV Levaquin, blood urine and sputum cultures were ordered, unable to collect a sputum culture. Patient was febrile all day yesterday, afebrile today. At the time of our evaluation patient is resting comfortably on the bed in the emergency department. Patient is a poor historian, maybe a little confused not sure if this is his baseline. Brain CT was obtained and showed age -related atrophic and chronic small vessel ischemic changes without acute intracranial process, EKG showed A. fib with a controlled rate. Patient is not on chronic anticoagulation for his history of paroxysmal atrial fibrillation. On 04/21/2018 patient seen in follow-up on medical surgical floor. He is awake and alert, in no acute distress, he is sitting up in the chair, he is responding questions appropriately, denies any worsening dyspnea, no febrile episodes in the last 24 hours, room air pulse ox was 94%. Current antibiotic coverage includes Levaquin, ID service is following. Blood and urine cultures are negative thus far, sputum culture is pending, Gram stain of sputum showed rare gram-positive cocci. Clinically patient is improving, mentation is improving. Hemodynamically patient is stable, today's labs have been reviewed, cytosis is improving, WBCs 38.7, hemoglobin is 10.9, electrolytes are within normal limits, anion gap remains elevated at 15, BUN is 41 and creatinine is 1.37. Influenza screen was negative Objective - Vital Signs Vital signs: Vital Signs Temp 96.1 F L 04/21/18 06:00 Pulse 66 04/21/18 11:34 Resp 20 04/21/18 06:00 BP 125/79 04/21/18 06:00 Pulse Ox 94 L 04/21/18 06:00 Intake & Output 04/20/18 04/21/18 04/21/18 18:59 06:59 18:59 Intake Total 31.718 354.792 14.49 Balance 31.718 354.792 14.49 Intake: Intake, IV Titration 31.718 54.792 14.49 Amount Insulin Regular 100 unit 31.718 54.792 14.49 In Sodium Chloride 0.9% 100 ml @ Titrate IV .Q0M [facility] Rx#:[id number] Oral 300 Other: Voiding Method Toilet # Voids 1 - Exam GENERAL EXAM: Alert, pleasant, 82-year-old white male, sitting up in the chair, in no distress, comfortable HEAD: Normocephalic/atraumatic. EYES: Normal reaction of pupils, equal size. Conjunctiva pink, sclera white. NOSE: Clear with pink turbinates. THROAT: No erythema or exudates. NECK: No masses, no JVD, no thyroid enlargement, no adenopathy. CHEST: No chest wall deformity. Symmetrical expansion. LUNGS: Equal air entry with no crackles, wheeze, rhonchi or dullness. CVS: Regular rate and rhythm, normal S1 and S2, no gallops, no murmurs, no rubs ABDOMEN: Soft, nontender. No hepatosplenomegaly, normal bowel sounds, no guarding or rigidity. EXTREMITIES: No clubbing, no edema, no cyanosis, 2+ pulses and upper and lower extremities. MUSCULOSKELETAL: Muscle strength and tone normal. SPINE: No scoliosis or deformity SKIN: No rashes CENTRAL NERVOUS SYSTEM: Alert and oriented -2. No focal deficits, tone is normal in all 4 extremities. PSYCHIATRIC: Alert and oriented -2. Appropriate affect. Intact judgment and insight. - Labs CBC & Chem 7: 04/21/18 08:32 04/21/18 08:32 Labs: Abnormal Lab Results - Last 24 Hours (Table) 04/20/18 04/20/18 04/20/18 Range/Units 15:35 16:03 17:20 WBC (3.8-10.6) k/uL Hgb (13.0-17.5) gm/dL Hct (39.0-53.0) % MCV (80.0-100.0) fL RDW (11.5-15.5) % Plt Count (150-450) k/uL Sodium (137-145) mmol/L Chloride (98-107) mmol/L Carbon Dioxide (22-30) mmol/L BUN (9-20) mg/dL Creatinine (0.66-1.25) mg/dL Glucose (74-99) mg/dL POC Glucose (mg/dL) 430 H 407 H 423 H (75-99) mg/dL 04/20/18 04/20/18 04/20/18 Range/Units 17:56 18:37 19:36 WBC (3.8-10.6) k/uL Hgb (13.0-17.5) gm/dL Hct (39.0-53.0) % MCV (80.0-100.0) fL RDW (11.5-15.5) % Plt Count (150-450) k/uL Sodium (137-145) mmol/L Chloride (98-107) mmol/L Carbon Dioxide (22-30) mmol/L BUN (9-20) mg/dL Creatinine (0.66-1.25) mg/dL Glucose (74-99) mg/dL POC Glucose (mg/dL) 374 H 277 H 223 H (75-99) mg/dL 04/20/18 04/20/18 04/20/18 Range/Units 20:01 22:06 23:59 WBC (3.8-10.6) k/uL Hgb (13.0-17.5) gm/dL Hct (39.0-53.0) % MCV (80.0-100.0) fL RDW (11.5-15.5) % Plt Count (150-450) k/uL Sodium 131 L (137-145) mmol/L Chloride 95 L (98-107) mmol/L Carbon Dioxide 21 L (22-30) mmol/L BUN 38 H (9-20) mg/dL Creatinine 1.41 H (0.66-1.25) mg/dL Glucose 183 H (74-99) mg/dL POC Glucose (mg/dL) 155 H 199 H (75-99) mg/dL 04/21/18 04/21/18 04/21/18 Range/Units 02:06 04:58 07:16 WBC (3.8-10.6) k/uL Hgb (13.0-17.5) gm/dL Hct (39.0-53.0) % MCV (80.0-100.0) fL RDW (11.5-15.5) % Plt Count (150-450) k/uL Sodium (137-145) mmol/L Chloride (98-107) mmol/L Carbon Dioxide (22-30) mmol/L BUN (9-20) mg/dL Creatinine (0.66-1.25) mg/dL Glucose (74-99) mg/dL POC Glucose (mg/dL) 205 H 187 H 169 H (75-99) mg/dL 04/21/18 04/21/18 04/21/18 Range/Units 08:32 08:32 09:19 WBC 38.7 H (3.8-10.6) k/uL Hgb 10.9 L (13.0-17.5) gm/dL Hct 34.6 L (39.0-53.0) % MCV 79.3 L (80.0-100.0) fL RDW 21.1 H (11.5-15.5) % Plt Count 454 H (150-450) k/uL Sodium (137-145) mmol/L Chloride (98-107) mmol/L Carbon Dioxide (22-30) mmol/L BUN 41 H (9-20) mg/dL Creatinine 1.37 H (0.66-1.25) mg/dL Glucose 172 H (74-99) mg/dL POC Glucose (mg/dL) 271 H (75-99) mg/dL 04/21/18 04/21/18 04/21/18 Range/Units 11:02 12:33 13:30 WBC (3.8-10.6) k/uL Hgb (13.0-17.5) gm/dL Hct (39.0-53.0) % MCV (80.0-100.0) fL RDW (11.5-15.5) % Plt Count (150-450) k/uL Sodium (137-145) mmol/L Chloride (98-107) mmol/L Carbon Dioxide (22-30) mmol/L BUN (9-20) mg/dL Creatinine (0.66-1.25) mg/dL Glucose (74-99) mg/dL POC Glucose (mg/dL) 278 H 215 H 177 H (75-99) mg/dL Microbiology - Last 24 Hours (Table) 04/20/18 00:30 Urine Culture - Final Urine,Voided 04/20/18 19:30 Gram Stain - Preliminary Sputum Sputum Culture - Preliminary 04/19/18 22:10 Blood Culture - Preliminary Blood No Growth after 24 hours Assessment and Plan Plan: Assessment: #1. Acute community acquired pneumonia, chest x-ray showed possible infiltrates at bilateral bases. #2. Leukocytosis, fever, altered mental status, acute kidney injury related to sepsis #3. Anion gap metabolic acidosis related to lactic acidosis secondary to pneumonia and sepsis, improved with IV hydration #4. Acute kidney injury #5. Mild hyperkalemia #6. Altered mental status, brain CT was negative for any acute findings #7. Severe COPD, and outpatient PFT showed FEV1 of 47% of predicted, an FVC of 46% predicted, and there is a component of restriction. Stable #8. Severe secondary pulmonary hypertension related to severe COPD #9. Chronic exertional dyspnea #10. History of renal cancer, status post partial nephrectomy, patient had a prolonged recovery course, requiring tracheostomy for failure to wean off the ventilator. Patient had since been decannulated #11. Hypertension #12. Diabetes mellitus type 2 #13. History of obstructive sleep apnea intolerant to CPAP #14. History of coronary artery disease with previous bypass grafting #15. Chronic systolic congestive heart failure with EF of 45% #16. BPH #17. Legs a small atrial fibrillation, not on any anticoagulation related to history of GI bleed in November 2017 #18. Left sixth and seventh rib fractures post fall Plan: Continue current medical therapy, clinically patient seems to be improving, no fever or chills in the last 24 hours, continue current antibiotic coverage, ID service is following, continue nebulized bronchodilators, awaiting the results of the final cultures. We'll continue to follow I performed a history & physical examination of the patient and discussed their management with my nurse practitioner, Juanita Miller. I reviewed the nurse practitioner's note and agree with the documented findings and plan of care. Lung sounds are positive for diminished breath sounds at the bases. The findings and the impression was discussed with the patient. I attest to the documentation by the nurse practitioner. Time with Patient: Less than 30
[2018-04-21 14:38] LABS: Poikilocytosis (M) Present; RBC Fragments Present; Target Cells Present; Toxic Granulation Present
[2018-04-21 17:19] LABS: Glucose,Whole Blood 283 mg/dL (75-99)
[2018-04-21 21:00] LABS: Glucose,Whole Blood 270 mg/dL (75-99)
[2018-04-21] MEDS ORDERED: LEVOFLOXACIN 750MG-D5W PMX 750 MG in DEXTROSE/WATER 1 150ML.BAG IVPB SCH (21:00)
[2018-04-21] MEDS: MONTELUKAST 10 MG TAB PO SCH (22:11)
[2018-04-21] MEDS: PRAVASTATIN SODIUM 40 MG TAB PO SCH (22:12)
--- NOTE | 2018-04-21 22:45 | P.PN ---
Subjective Progress Note Date: 04/21/18 82-year-old male well-known to the service with as many hospitalizations presents to the emergency center feeling poorly for the last few days. Patient's daughter is present and relates that last weekend he suffered a fall onto the left side of his chest. It may have ongoing pain since that point in time. He now is having difficulties with significant discomfort in left side of his chest he's having cough with some sputum production is not bloody however. He's been feeling weaker he's had fever chills and some altered mentation and constantly was brought to the emergency center. 104 fever was found evidence of significant pneumonia. Because of this he's been admitted in with his white blood cell count of 49.4 and history of MRSA of the infectious diseases consultation was requested. The patient apparently is a bit clearer now than when he was no emergency center. He recognizes me easily by name. However does have some difficulty elucidating the details of what happened over the last week. 04/21/2018 patient feels slightly better today. Sitting up in the chair. Continues to have some difficulties with confusion. Relates that he is more comfortable. His lower extremity edema is improved. He relates that his breathing somewhat better and is using the incentive spirometer and is starting to have some improved sputum production. No hemoptysis. Feels weak. Objective - Vital Signs Vital signs: Vital Signs Temp 97.0 F L 04/21/18 15:00 Pulse 84 04/21/18 19:23 Resp 18 04/21/18 15:00 BP 123/52 04/21/18 15:00 Pulse Ox 93 L 04/21/18 15:00 Intake & Output 04/21/18 04/21/18 04/22/18 06:59 18:59 06:59 Intake Total 354.792 14.49 Balance 354.792 14.49 Intake: Intake, IV Titration 54.792 14.49 Amount Insulin Regular 100 unit 54.792 14.49 In Sodium Chloride 0.9% 100 ml @ Titrate IV .Q0M MARSHALL Rx#:[id number] Oral 300 Other: Voiding Method Toilet Toilet # Voids 1 3 - Exam HEENT: Anicteric conjunctiva are pink and moist nasal mucosa grossly intact without significant lesions, there is no thrush. Neck: The neck is supple without significant lymphadenopathy or thyromegaly. Lungs: Symmetrical air entry is noted there are crackles especially at the left base, expiratory wheezes are scattered. Heart: Regular rate and rhythm with an audible S1-S2, no S3 no S4. There is no significant murmur click or rub, PMI was nondisplaced. Abdomen: Positive bowel sounds soft and nontender without palpable masses or organomegaly. There was no guarding or rebound. Extremities: The upper extremities have excellent pulses they are symmetric, no significant petechiae or telangiectasia. No splinter hemorrhages were noted. The lower extremities are free from significant edema. The peripheral pulses were 2+ and symmetric. Neuro: Awake alert oriented to person place struggling with time. Able to move upper and lower extremities upon command. No acute gross focal sensory motor deficits does exhibit some confusion. - Labs CBC & Chem 7: 04/21/18 08:32 04/21/18 08:32 Labs: Abnormal Lab Results - Last 24 Hours (Table) 04/20/18 04/20/18 04/21/18 Range/Units 22:06 23:59 02:06 WBC (3.8-10.6) k/uL Hgb (13.0-17.5) gm/dL Hct (39.0-53.0) % MCV (80.0-100.0) fL RDW (11.5-15.5) % Plt Count (150-450) k/uL Neutrophils # (1.3-7.7) k/uL Monocytes # (0-1.0) k/uL BUN (9-20) mg/dL Creatinine (0.66-1.25) mg/dL Glucose (74-99) mg/dL POC Glucose (mg/dL) 155 H 199 H 205 H (75-99) mg/dL 04/21/18 04/21/18 04/21/18 Range/Units 04:58 07:16 08:32 WBC 38.7 H (3.8-10.6) k/uL Hgb 10.9 L (13.0-17.5) gm/dL Hct 34.6 L (39.0-53.0) % MCV 79.3 L (80.0-100.0) fL RDW 21.1 H (11.5-15.5) % Plt Count 454 H (150-450) k/uL Neutrophils # 34.3 H (1.3-7.7) k/uL Monocytes # 1.7 H (0-1.0) k/uL BUN (9-20) mg/dL Creatinine (0.66-1.25) mg/dL Glucose (74-99) mg/dL POC Glucose (mg/dL) 187 H 169 H (75-99) mg/dL 04/21/18 04/21/18 04/21/18 Range/Units 08:32 09:19 11:02 WBC (3.8-10.6) k/uL Hgb (13.0-17.5) gm/dL Hct (39.0-53.0) % MCV (80.0-100.0) fL RDW (11.5-15.5) % Plt Count (150-450) k/uL Neutrophils # (1.3-7.7) k/uL Monocytes # (0-1.0) k/uL BUN 41 H (9-20) mg/dL Creatinine 1.37 H (0.66-1.25) mg/dL Glucose 172 H (74-99) mg/dL POC Glucose (mg/dL) 271 H 278 H (75-99) mg/dL 04/21/18 04/21/18 04/21/18 Range/Units 12:33 13:30 17:16 WBC (3.8-10.6) k/uL Hgb (13.0-17.5) gm/dL Hct (39.0-53.0) % MCV (80.0-100.0) fL RDW (11.5-15.5) % Plt Count (150-450) k/uL Neutrophils # (1.3-7.7) k/uL Monocytes # (0-1.0) k/uL BUN (9-20) mg/dL Creatinine (0.66-1.25) mg/dL Glucose (74-99) mg/dL POC Glucose (mg/dL) 215 H 177 H 283 H (75-99) mg/dL 04/21/18 Range/Units 20:52 WBC (3.8-10.6) k/uL Hgb (13.0-17.5) gm/dL Hct (39.0-53.0) % MCV (80.0-100.0) fL RDW (11.5-15.5) % Plt Count (150-450) k/uL Neutrophils # (1.3-7.7) k/uL Monocytes # (0-1.0) k/uL BUN (9-20) mg/dL Creatinine (0.66-1.25) mg/dL Glucose (74-99) mg/dL POC Glucose (mg/dL) 270 H (75-99) mg/dL Microbiology - Last 24 Hours (Table) 04/20/18 00:30 Urine Culture - Final Urine,Voided 04/20/18 19:30 Gram Stain - Preliminary Sputum Sputum Culture - Preliminary 04/19/18 22:10 Blood Culture - Preliminary Blood No Growth after 24 hours Laboratory Results WBC 38.7 k/uL (3.8-10.6) H 04/21/18 08:32 RBC 4.36 m/uL (4.30-5.90) 04/21/18 08:32 Hgb 10.9 gm/dL (13.0-17.5) L 04/21/18 08:32 Hct 34.6 % (39.0-53.0) L 04/21/18 08:32 MCV 79.3 fL (80.0-100.0) L 04/21/18 08:32 MCH 25.0 pg (25.0-35.0) 04/21/18 08:32 MCHC 31.5 g/dL (31.0-37.0) 04/21/18 08:32 RDW 21.1 % (11.5-15.5) H 04/21/18 08:32 Plt Count 454 k/uL (150-450) H 04/21/18 08:32 Neutrophils % 89 % 04/21/18 08:32 Lymphocytes % 6 % 04/21/18 08:32 Monocytes % 4 % 04/21/18 08:32 Eosinophils % 0 % 04/21/18 08:32 Basophils % 0 % 04/21/18 08:32 Neutrophils # 34.3 k/uL (1.3-7.7) H 04/21/18 08:32 Lymphocytes # 2.3 k/uL (1.0-4.8) 04/21/18 08:32 Monocytes # 1.7 k/uL (0-1.0) H 04/21/18 08:32 Eosinophils # 0.0 k/uL (0-0.7) 04/21/18 08:32 Basophils # 0.1 k/uL (0-0.2) 04/21/18 08:32 Manual Slide Review Performed 04/19/18 22:10 Toxic Granulation Present 04/21/18 08:32 Large Platelets Present 04/19/18 22:10 Hypochromasia Slight 04/21/18 08:32 Poikilocytosis (manual Present 04/21/18 08:32 Anisocytosis Moderate 04/21/18 08:32 Anisocytosis (manual) Present 04/19/18 22:10 Microcytosis Moderate 04/21/18 08:32 Target Cells Present 04/21/18 08:32 Henriquez-Lookingglass Bodies Present 04/19/18 22:10 Fragmented RBCs Present 04/21/18 08:32 PT 10.4 sec (9.0-12.0) 04/19/18 22:10 INR 1.1 (<1.2) 04/19/18 22:10 APTT 23.8 sec (22.0-30.0) 04/19/18 22:10 Sodium 138 mmol/L (137-145) 04/21/18 08:32 Potassium 4.7 mmol/L (3.5-5.1) 04/21/18 08:32 Chloride 98 mmol/L (98-107) 04/21/18 08:32 Carbon Dioxide 25 mmol/L (22-30) 04/21/18 08:32 Anion Gap 15 mmol/L 04/21/18 08:32 BUN 41 mg/dL (9-20) H 04/21/18 08:32 Creatinine 1.37 mg/dL (0.66-1.25) H 04/21/18 08:32 Est GFR (CKD-EPI)AfAm 56 (>60 ml/min/1.73 sqM) 04/21/18 08:32 Est GFR (CKD-EPI)NonAf 48 (>60 ml/min/1.73 sqM) 04/21/18 08:32 Glucose 172 mg/dL (74-99) H 04/21/18 08:32 POC Glucose (mg/dL) 270 mg/dL (75-99) H 04/21/18 20:52 POC Glu Senior Case Manager ID Aury Cedillo 04/21/18 20:[address] Glu mg/dL 209 04/19/18 22:10 Hemoglobin A1c 8.9 % (4.0-6.0) H 04/19/18 22:10 Lactic Ac Sepsis Rflx Y 04/19/18 22:49 Plasma Lactic Acid Dean 1.5 mmol/L (0.7-2.0) 04/20/18 02:33 Calcium 10.2 mg/dL (8.4-10.2) 04/21/18 08:32 Total Bilirubin 0.4 mg/dL (0.2-1.3) 04/21/18 08:32 AST 49 U/L (17-59) 04/21/18 08:32 ALT 36 U/L (21-72) 04/21/18 08:32 Alkaline Phosphatase 76 U/L (38-126) 04/21/18 08:32 Total Creatine Kinase 168 U/L (55-170) 04/19/18 22:10 CK-MB (CK-2) 4.8 ng/mL (0.0-2.4) H 04/19/18 22:10 CK-MB (CK-2) Rel Index 2.9 04/19/18 22:10 Troponin I 0.017 ng/mL (0.000-0.034) 04/19/18 22:10 Total Protein 7.5 g/dL (6.3-8.2) 04/21/18 08:32 Albumin 4.1 g/dL (3.5-5.0) 04/21/18 08:32 Urine Color Yellow 04/20/18 00:30 Urine Appearance Clear (Clear) 04/20/18 00:30 Urine pH 5.5 (5.0-8.0) 04/20/18 00:30 Ur Specific [place] 1.013 (1.001-1.035) 04/20/18 00:30 Urine Protein 1+ (Negative) H 04/20/18 00:30 Urine Glucose (UA) 1+ (Negative) H 04/20/18 00:30 Urine Ketones Negative (Negative) 04/20/18 00:30 Urine Blood Trace (Negative) H 04/20/18 00:30 Urine Nitrite Negative (Negative) 04/20/18 00:30 Urine Bilirubin Negative (Negative) 04/20/18 00:30 Urine Urobilinogen <2.0 mg/dL (<2.0) 04/20/18 00:30 Ur Leukocyte Esterase Trace (Negative) H 04/20/18 00:30 Urine RBC 1 /hpf (0-5) 04/20/18 00:30 Urine WBC 4 /hpf (0-5) 04/20/18 00:30 Ur Squamous Epith Cells <1 /hpf (0-4) 04/20/18 00:30 Influenza Type A RNA Not Detected (Not Detectd) 04/19/18 22:34 Influenza Type B (PCR) Not Detected (Not Detectd) 04/19/18 22:34 Microbiology 04/20/18 00:30 Urine,Voided Urine Culture - Final 04/20/18 19:30 Sputum Gram Stain - Preliminary 04/20/18 19:30 Sputum Sputum Culture - Preliminary 04/19/18 22:10 Blood Blood Culture - Preliminary No Growth after 24 hours Assessment and Plan (1) Fever Narrative/Plan: 82-year-old male with multiple medical troubles presents to emergency center after having a fall last weekend. He is having ongoing pain to the left side of his chest. He developed a fever to 104 with some altered mental status and increasing weakness and consequently was evaluated. At The presentation temperature 104 was noted and is now improved with hydration and Tylenol therapy. The patient is evidence of the rib fractures likely causing the underlying pneumonic problem resulting in the high-grade fever and sepsis. He fortunately this point and is feeling slightly better. Antibiotic therapy was started with Levaquin. Patient has a known history of MRSA infection. Consequently concern to MRSA pneumonia as well as bacteremia this time with his current symptoms. Patient has a listed ALLERGY to vancomycin which is caused significant difficulties in the past and consequently linezolide will be utilized. Blood cultures are pending. Patient the family are instructed on the importance of his incentive spirometer , the patient is given a device and instructed how to use it and shows good technique. The importance of utilizing maneuvers to improve his pulmonary function is important. Blood cultures will be repeated 04/21/2018 patient seems to be feeling slightly better today. He is using his spirometer, receiving respiratory treatments and seems to have improved sputum production. Seems less short of breath. Continue current antibiotic therapies until we have further data.The profound leukocytosis is starting to improve and the patient's fever has resolved he was at 104 is now 97. Current Visit: Yes Status: Acute Code(s): R50.9 - FEVER, UNSPECIFIED SNOMED Code(s): 637436779 (2) Leukocytosis Current Visit: Yes Status: Acute Code(s): D72.829 - ELEVATED WHITE BLOOD CELL COUNT, UNSPECIFIED SNOMED Code(s): 183877896 (3) Pneumonia Current Visit: Yes Status: Acute Code(s): J18.9 - PNEUMONIA, UNSPECIFIED ORGANISM SNOMED Code(s): 961947644
[2018-04-22] MEDS: IPRATROPIUM-ALBUTEROL 3 ML NEB INHALATION SCH ×4 (07:29→19:33)
[2018-04-22 07:47] LABS: Glucose,Whole Blood 241 mg/dL (75-99)
[2018-04-22] MEDS: SYMBICORT 160-4.5 MCG INHALER INHALATION SCH ×2 (07:59→19:33)
[2018-04-22] MEDS: FISH OIL 1000MG PO SCH (08:13)
[2018-04-22] MEDS: POLYETHYLENE GLYCOL 3350 17 GM POWD.PACK PO SCH (08:20)
[2018-04-22] MEDS: ZINC SULFATE 220 MG CAP PO SCH (08:20)
[2018-04-22] MEDS: LISINOPRIL 5 MG TAB PO SCH (08:20)
[2018-04-22] MEDS: SPIRONOLACTONE 25 MG TAB PO SCH ×2 (08:20→22:06)
[2018-04-22] MEDS: PANTOPRAZOLE 40 MG TABLET PO SCH (08:20)
[2018-04-22] MEDS: LIDOCAINE 5% PATCH TOPICAL SCH (08:20)
[2018-04-22] MEDS: FUROSEMIDE 40 MG TAB PO SCH ×2 (08:20→17:17)
[2018-04-22] MEDS: MAGNESIUM OXIDE 400 MG TAB PO SCH (08:20)
[2018-04-22] MEDS: INSULIN ASPART 100 UNIT/ML 1 ML 10 ML VIAL SQ SCH ×4 (08:26→22:09)
[2018-04-22] MEDS: amLODIPine 10 MG TAB PO SCH (09:21)
[2018-04-22] MEDS: SODIUM CHLORIDE 0.9% 1,000 ML IV SCH (11:25)
[2018-04-22 12:18] LABS: Glucose,Whole Blood 278 mg/dL (75-99)
[2018-04-22 12:24] LABS: Anisocytosis Moderate; Basophils # (A) 0.1 k/uL (0-0.2); Basophils % (A) 0 %; Eosinophils # (A) 0.1 k/uL (0-0.7); Eosinophils % (A) 0 %; HCT 33.3 % (39.0-53.0); HGB 10.4 gm/dL (13.0-17.5); Hypochromasia Slight; Lymphocytes # (A) 2.1 k/uL (1.0-4.8); Lymphocytes % (A) 6 %; MCH 24.2 pg (25.0-35.0); MCHC 31.2 g/dL (31.0-37.0); MCV 77.6 fL (80.0-100.0); Mean Platelet Volume 7.1; Microcytosis Moderate; Monocytes # (A) 1.4 k/uL (0-1.0); Monocytes % (A) 4 %; Neutrophils % (A) 88 %; Platelet Count 445 k/uL (150-450); RBC 4.29 m/uL (4.30-5.90); WBC 32.9 k/uL (3.8-10.6)
[2018-04-22 12:36] LABS: Calcium 9.9 mg/dL (8.4-10.2); Potassium 4.8 mmol/L (3.5-5.1); Total Bilirubin 0.4 mg/dL (0.2-1.3); Total Protein 7.1 g/dL (6.3-8.2)
[2018-04-22 12:44] LABS: Toxic Granulation Present
[2018-04-22 12:45] LABS: Poikilocytosis (M) Present
[2018-04-22] MEDS: ACETAMINOPHEN TAB 325 MG TAB PO PRN ×2 (13:11→20:58)
--- NOTE | 2018-04-22 13:51 | P.PN ---
Subjective 82-year-old male who presented to the emergency room with a chief complaint of shortness of breath and cough for the past two to three days. The patient was found to be hypoxic in the 80s, tachycardic, tachypneic, and febrile in the emergency room. He was placed on bipap originally with improvement in his respiratory status, currently on nasal cannula. The patient does report he has fallen a few times at home recently and complains of pain on the left side of his chest. Rib xray revealed fractures of left sixth and seventh rib. Chest x-ray completed in the emergency room reveals pulmonary fibrosis. No definite heart failure. CT of the brain revealed age-related atrophic and chronic small vessel ischemic changes without acute intracranial process. Laboratory data upon admission revealed white count 31.6. Platelet count 385. Hemoglobin 11.8. Sodium 135. Potassium 5.2. BUN 29. Creatinine 1.3. Lactic acid 2.6. Repeat 1.5. Troponin 0.017. Repeat blood work prior reveals white count 49.4. Hemoglobin 9.5. Platelet count 398. Sodium 131. Potassium 5.6. BUN 35. Creatinine 1.34. Testing for influenza A and B was negative.Consultations were placed to pulmonary, infectious disease, and a pathology review of his labs due to the significant leukocytosis.. 04/21/2018. His leukocytosis is most likely reactive, pathology review is pending. He has the 2 rib fractures on the left and the pneumonia. He feels better today. He was found in a chair sitting at this time. He denies any chest pains other than the left side of the ribs, no chest pressure, shortness of breath only when he exerts himself. He denies any nausea or vomiting today. White blood cell count is 38.7. His hyperkalemia has now resolved and currently is 4.7. His hyperglycemia is much improved with insulin drip. 04/22/2018. His leukocytosis continues to improve. He also remains afebrile He remains on Levaquin for antibiotic coverage. Nursing reports that his glucose has been slightly elevated. He complains of only left rib pain at this time. He denies any shortness of breath or significant cough. He denies any nausea or vomiting. He denies any diarrhea or constipation. Objective - Vital Signs Vital signs: Vital Signs Temp 99.4 F 04/22/18 07:00 Pulse 77 04/22/18 11:16 Resp 16 04/22/18 07:29 BP 136/81 04/22/18 07:00 Pulse Ox 92 L 04/22/18 07:00 Intake & Output 04/21/18 04/22/18 04/22/18 18:59 06:59 18:59 Intake Total 14.49 800 200 Balance 14.49 800 200 Weight 106.141 kg Intake: Intake, IV Titration 14.49 Amount Insulin Regular 100 unit 14.49 In Sodium Chloride 0.9% 100 ml @ Titrate IV .Q0M [facility]SHALL Rx#:[id number] Oral 800 200 Other: Voiding Method Toilet # Voids 3 2 - Exam GENERAL: This is a 82-year-old male in no apparent distress at the time of examination. Pleasant and cooperative. Neck: supple. RESPIRATORY: Diminished. Coarse. No wheezes, rales, or rhonchi. No use of accessory muscles. Patient maintaining oxygen saturation greater than 92%. Pain and tenderness noted upon palpation of left lateral chest wall. CARDIOVASCULAR: Regular rate and rhythm. S1 and S2 noted. No JVD noted. No S3 or S4 noted. GASTROINTESTINAL: Only distended due to truncal obesity Abdomen soft and round. Normal active bowel sounds auscultated x 4 quadrants. No pain or tenderness noted upon palpation. INTEGUMENTARY: No cyanosis. No jaundice. No rashes noted. No cellulitis noted. EXTREMITIES: 2+ peripheral pulses.+2 lower extremity edema extending up to the knee. No calf tenderness noted. NEUROLOGIC: Cranial nerves II-XII grossly intact. PSYCHIATRIC: Awake, alert, and oriented X 3. - Labs CBC & Chem 7: 04/22/18 12:00 04/22/18 12:00 Labs: Abnormal Lab Results - Last 24 Hours (Table) 04/21/18 04/21/18 04/21/18 Range/Units 08:32 17:16 20:52 WBC 38.7 H (3.8-10.6) k/uL RBC (4.30-5.90) m/uL Hgb 10.9 L (13.0-17.5) gm/dL Hct 34.6 L (39.0-53.0) % MCV 79.3 L (80.0-100.0) fL MCH (25.0-35.0) pg RDW 21.1 H (11.5-15.5) % Plt Count 454 H (150-450) k/uL Neutrophils # 34.3 H (1.3-7.7) k/uL Monocytes # 1.7 H (0-1.0) k/uL Sodium (137-145) mmol/L Chloride (98-107) mmol/L BUN (9-20) mg/dL Creatinine (0.66-1.25) mg/dL Glucose (74-99) mg/dL POC Glucose (mg/dL) 283 H 270 H (75-99) mg/dL 04/22/18 04/22/18 04/22/18 Range/Units 07:43 12:00 12:00 WBC 32.9 H (3.8-10.6) k/uL RBC 4.29 L (4.30-5.90) m/uL Hgb 10.4 L (13.0-17.5) gm/dL Hct 33.3 L (39.0-53.0) % MCV 77.6 L (80.0-100.0) fL MCH 24.2 L (25.0-35.0) pg RDW 21.0 H (11.5-15.5) % Plt Count (150-450) k/uL Neutrophils # 29.0 H (1.3-7.7) k/uL Monocytes # 1.4 H (0-1.0) k/uL Sodium 134 L (137-145) mmol/L Chloride 95 L (98-107) mmol/L BUN 39 H (9-20) mg/dL Creatinine 1.27 H (0.66-1.25) mg/dL Glucose 276 H (74-99) mg/dL POC Glucose (mg/dL) 241 H (75-99) mg/dL 04/22/18 Range/Units 12:08 WBC (3.8-10.6) k/uL RBC (4.30-5.90) m/uL Hgb (13.0-17.5) gm/dL Hct (39.0-53.0) % MCV (80.0-100.0) fL MCH (25.0-35.0) pg RDW (11.5-15.5) % Plt Count (150-450) k/uL Neutrophils # (1.3-7.7) k/uL Monocytes # (0-1.0) k/uL Sodium (137-145) mmol/L Chloride (98-107) mmol/L BUN (9-20) mg/dL Creatinine (0.66-1.25) mg/dL Glucose (74-99) mg/dL POC Glucose (mg/dL) 278 H (75-99) mg/dL Microbiology - Last 24 Hours (Table) 04/19/18 22:10 Blood Culture - Preliminary Blood No Growth after 48 hours 04/20/18 00:30 Urine Culture - Final Urine,Voided Assessment and Plan Plan: ASSESSMENT: Sepsis with profound leukocytosis, tachycardia, tachypnea, and fever, present on admission Community-acquired pneumonia Fracture of left sixth and seventh rib, status post fall Acute kidney injury, creatinine 1.30 on admission, baseline 1.0 Hyperkalemia Diabetes mellitus, type II Hyperglycemia secondary to uncontrolled diabetes mellitus Paroxysmal atrial fibrillation not on long-term anticoagulation secondary to GI bleed, November 2017 Hospitalization in November 2017 secondary to acute blood loss anemia COPD, no evidence of acute exacerbation History of obstructive sleep apnea, patient does not tolerate CPAP History of coronary artery disease with previous CABG 3 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 Pulmonary on consult. Await further recommendations and input Consult Dr. Loza, infectious disease for his pneumonia history and history of MRSA. Allergy to review a CBC to evaluate for atypical cells Cultures pending Novolog sliding scale in addition to novolog 15 units with meals, Levemir, 40 units now, discontinue his insulin scale in 1 hour, Pain with multiple allergies to narcotics including codeine, dilaudid, and morphine. Avoid toradol due to patients age and decreased kidney function. Will order tylenol and lidoderm patch. LINDA hose to LE. Elevate legs while in bed to reduce edema. Home meds as appropriate Monitor labs GI prophylaxis: Protonix 40 mg PO Daily DVT prophylaxis: LINDA hose to bilateral lower extremities Monitor vital signs and address as appropriate Discharge planning: Patient to return home when stable Further recommendations pending patient's course Repeat labs in a.m., he'll be reevaluated in the next 24 hours. He should be stable enough for discharge in 24 hours.
--- NOTE | 2018-04-22 14:00 | PN ---
PROGRESS NOTE DATE OF SERVICE: 04/22/2018 This is an 82-year-old male admitted on April 20. His diagnoses are many and include acute community-acquired pneumonia, sepsis, anion gap metabolic acidosis, acute kidney injury, hyperkalemia, mental status changes, COPD exacerbation, secondary pulmonary hypertension, chronic exertional dyspnea, history of hypernephroma with previous partial nephrectomy, hypertension, diabetes mellitus, history of sleep apnea, CAD with bypass grafting, systolic heart failure, BPH, atrial fibrillation, and recent fall with left 6th and 7th rib fractures. Currently, the patient is doing reasonably well. The patient states that his pain is well controlled. They put a patch right over his left rib cage area. He states his breathing is improved. He is coughing up some nasty looking phlegm, in his own words. Denies coughing up any blood. There is no fever or chills. The patient states that he feels congested in his chest. Not having any other complaints such as nausea, vomiting or diarrhea. The patient is sitting up in the chair, taking a breathing treatment when I evaluate him today. His FEV1 is 1.36 L or 47% of predicted. FVC is 1.84 L or 46% of predicted. His primary doctor is Dr. Quesada. Current vital signs are reviewed. His temperature is 99.4. Heart rate is 64, respiratory rate 64, respiratory rate 16, blood pressure 136/81 with a mean 99 and room air saturations 92%. He appears in no acute distress. He is sitting in the chair. He is not using any accessory muscles. There is no audible wheezing. HEENT examination is grossly unremarkable. Mucous membranes are moist. No oral lesions. No supplemental oxygen being used currently. Neck is supple. Full range of motion. No adenopathy or thyromegaly. Neck veins are flat. Cardiovascular examination reveals distant heart sounds. Heart rate about 70 beats per minute. S1, S2 normal. There is a soft systolic murmur. No S3, S4. Lungs reveal scattered rhonchi. No wheezes. There is a few scattered bibasilar crackles. Breath sounds are diminished throughout. Abdomen is obese. Bowel sounds are heard. Extremities are intact. Mild edema. Skin without rash. Neurologic examination seems to be relatively normal although brief. Rib x-rays show fractures at ribs 6 and 7 on the left. A brain CT was done and shows some atrophic is chronic vessel ischemic changes without acute abnormality. Chest x- ray from the shows some interstitial changes primarily at the bases. There is poor inspiration. Microbiologic studies are thus far negative. Lab data includes a white count of 32.9, hemoglobin 10.4, hematocrit 33.3, platelet count 445,000. Sodium 134, potassium 4.8, chloride 95, CO2 24, anion gap 15, BUN and creatinine were 39 and 1.27. The rest of the comprehensive metabolic profile looks okay. Medications were reviewed and adjusted yesterday. ASSESSMENT: 1. Community-acquired pneumonia, currently on appropriate antibiotics. 2. Acute kidney injury, mental status changes and leukocytosis, likely related to underlying sepsis. 3. Anion gap metabolic acidosis, related to lactic acidemia and renal failure, improved. 4. Acute kidney injury. 5. Hyperkalemia. 6. Mental status changes with no acute abnormalities on CT scan of the brain. 7. Severe chronic obstructive pulmonary disease with an FEV1 that is 47% of predicted. 8. Severe secondary pulmonary hypertension related to underlying chronic obstructive pulmonary disease. 9. Chronic exertional dyspnea. 10.History of hypernephroma, status post partial nephrectomy. 11.Hypertension by history. 12.Type 2 diabetes mellitus. 13.History of sleep apnea syndrome, intolerant of CPAP. 14.History of coronary artery disease with previous bypass grafting. 15.Chronic systolic heart failure with an ejection fraction of 45%. 16.Benign prostatic hypertrophy. 17.History of atrial fibrillation. 18.Recent fall with left 6th and 7th rib fractures. PLAN: Dated April 22, 2018. The patient is on appropriate medications. The patient seems to be improved. We will continue to follow. The patient should continue on current medications including antibiotics and bronchodilators. His pain is well controlled. We recommend deep breathing coughing and clearing of secretions as well as use of the incentive spirometer. No additional recommendations are made. He will need followup in our office post discharge. Prognosis is guarded. MMODL / IJN: [id number] /
[2018-04-22 17:29] LABS: Glucose,Whole Blood 307 mg/dL (75-99)
[2018-04-22] MEDS ORDERED: INSULIN DETEMIR 100 UNIT/ML 10 ML VIAL SQ SCH (21:00)
[2018-04-22 21:31] LABS: Glucose,Whole Blood 358 mg/dL (75-99)
[2018-04-22] MEDS: PRAVASTATIN SODIUM 40 MG TAB PO SCH (22:06)
[2018-04-22] MEDS: MONTELUKAST 10 MG TAB PO SCH (22:10)
[2018-04-23 06:17] VITALS: BP 133/64; TEMP 98.9
[2018-04-23] MEDS: SYMBICORT 160-4.5 MCG INHALER INHALATION SCH (07:11)
[2018-04-23] MEDS: IPRATROPIUM-ALBUTEROL 3 ML NEB INHALATION SCH ×3 (07:11→15:21)
[2018-04-23 07:26] LABS: Glucose,Whole Blood 240 mg/dL (75-99)
[2018-04-23 07:41] LABS: Poikilocytosis (M) Present; Toxic Granulation Present; Toxic Vacuolation Present
[2018-04-23 07:42] LABS: Target Cells Present
[2018-04-23] MEDS: POLYETHYLENE GLYCOL 3350 17 GM POWD.PACK PO SCH (08:33)
[2018-04-23] MEDS: SPIRONOLACTONE 25 MG TAB PO SCH (08:33)
[2018-04-23] MEDS: INSULIN ASPART 100 UNIT/ML 1 ML 10 ML VIAL SQ SCH ×2 (08:33→13:01)
[2018-04-23] MEDS: LIDOCAINE 5% PATCH TOPICAL SCH (08:33)
[2018-04-23] MEDS: FISH OIL 1000MG PO SCH (08:34)
[2018-04-23] MEDS: LISINOPRIL 5 MG TAB PO SCH (08:34)
[2018-04-23] MEDS: MAGNESIUM OXIDE 400 MG TAB PO SCH (08:34)
[2018-04-23] MEDS: PANTOPRAZOLE 40 MG TABLET PO SCH (08:34)
[2018-04-23] MEDS: FUROSEMIDE 40 MG TAB PO SCH (08:34)
[2018-04-23] MEDS: ZINC SULFATE 220 MG CAP PO SCH (08:35)
[2018-04-23] MEDS: amLODIPine 10 MG TAB PO SCH (08:35)
[2018-04-23 11:20] LABS: Anisocytosis Moderate; Basophils % (A) 0 %; Eosinophils # (A) 0.2 k/uL (0-0.7); Eosinophils % (A) 1 %; HCT 33.6 % (39.0-53.0); HGB 10.6 gm/dL (13.0-17.5); Lymphocytes # (A) 1.4 k/uL (1.0-4.8); Lymphocytes % (A) 7 %; MCH 24.5 pg (25.0-35.0); MCHC 31.5 g/dL (31.0-37.0); MCV 77.6 fL (80.0-100.0); Mean Platelet Volume 6.8; Microcytosis Moderate; Monocytes % (A) 5 %; Neutrophils # (A) 17.1 k/uL (1.3-7.7); Neutrophils % (A) 85 %; Platelet Count 458 k/uL (150-450); RBC 4.33 m/uL (4.30-5.90); RDW 20.6 % (11.5-15.5)
[2018-04-23 11:29] LABS: Glucose,Whole Blood 165 mg/dL (75-99)
[2018-04-23 11:39] LABS: Albumin 3.8 g/dL (3.5-5.0); Potassium 4.8 mmol/L (3.5-5.1); Total Bilirubin 0.3 mg/dL (0.2-1.3); Total Protein 6.9 g/dL (6.3-8.2)
--- NOTE | 2018-04-23 13:53 | P.DS ---
Providers Date of admission: 04/20/18 04:05 Expected date of discharge: 04/23/18 Attending physician: Jono Key Consults: 04/20/18 04:05 Consult Physician Routine Consulting Provider: Preet Sanabria Consult Reason/Comments: established orthopedic brace maker Do you want consulting provider notified?: Yes, Notify in am 04/20/18 18:59 Consult Physician Routine Consulting Provider: Rupert Loza Consult Reason/Comments: pneumonia/febrile Do you want consulting provider notified?: Already Contacted Primary care physician: [facility] Course: 82-year-old male who presented to the emergency room with a chief complaint of shortness of breath and cough for the past two to three days. The patient was found to be hypoxic in the 80s, tachycardic, tachypneic, and febrile in the emergency room. He was placed on bipap originally with improvement in his respiratory status, currently on nasal cannula. The patient does report he has fallen a few times at home recently and complains of pain on the left side of his chest. Rib xray revealed fractures of left sixth and seventh rib. Chest x-ray completed in the emergency room reveals pulmonary fibrosis. No definite heart failure. CT of the brain revealed age-related atrophic and chronic small vessel ischemic changes without acute intracranial process. Laboratory data upon admission revealed white count 31.6. Platelet count 385. Hemoglobin 11.8. Sodium 135. Potassium 5.2. BUN 29. Creatinine 1.3. Lactic acid 2.6. Repeat 1.5. Troponin 0.017. Repeat blood work prior reveals white count 49.4. Hemoglobin 9.5. Platelet count 398. Sodium 131. Potassium 5.6. BUN 35. Creatinine 1.34. Testing for influenza A and B was negative.Consultations were placed to pulmonary, infectious disease, and a pathology review of his labs due to the significant leukocytosis.. 04/21/2018. His leukocytosis is most likely reactive, pathology review is pending. He has the 2 rib fractures on the left and the pneumonia. He feels better today. He was found in a chair sitting at this time. He denies any chest pains other than the left side of the ribs, no chest pressure, shortness of breath only when he exerts himself. He denies any nausea or vomiting today. White blood cell count is 38.7. His hyperkalemia has now resolved and currently is 4.7. His hyperglycemia is much improved with insulin drip. 04/22/2018. His leukocytosis continues to improve. He also remains afebrile He remains on Levaquin for antibiotic coverage. Nursing reports that his glucose has been slightly elevated. He complains of only left rib pain at this time. He denies any shortness of breath or significant cough. He denies any nausea or vomiting. He denies any diarrhea or constipation. 04/23/2018 Patient examined at the bedside. His respiratory status is improving. He denies SOB. He does complain of pain on his left chest due to fractures. He is stable for discharge home today per Dr. Quesada. Discharge diagnosis: Sepsis with profound leukocytosis, tachycardia, tachypnea, and fever, present on admission Community-acquired pneumonia Fracture of left sixth and seventh rib, status post fall Acute kidney injury, creatinine 1.30 on admission, baseline 1.0 Hyperkalemia Diabetes mellitus, type II Hyperglycemia secondary to uncontrolled diabetes mellitus Paroxysmal atrial fibrillation not on long-term anticoagulation secondary to GI bleed, November 2017 Hospitalization in November 2017 secondary to acute blood loss anemia COPD, no evidence of acute exacerbation History of obstructive sleep apnea, patient does not tolerate CPAP History of coronary artery disease with previous CABG 3 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 Signing provider agrees with the documented findings, assessment, and plan of care. / Plan - Discharge Summary New Discharge Prescriptions: New Lidocaine 5% Patch [Lidoderm 5% Patch] 1 patch TOPICAL DAILY #10 patch Levofloxacin [Levaquin] 500 mg PO DAILY 5 Days #5 tab Continue Montelukast [Singulair] 10 mg PO HS Insulin Detemir [Levemir Flextouch] 58 units SQ HS Zinc 50 mg PO DAILY Pravastatin Sodium 40 mg PO HS Magnesium Oxide [Mag-Ox] 250 mg PO DAILY Insulin Aspart [NovoLOG Flexpen] 17 units SQ AC-TID Novelty-3 Fatty Acids/Fish Oil [Fish Oil 1,000 mg Softgel] 1 cap PO DAILY Acetaminophen Tab [Tylenol] 500 - 1,000 mg PO Q6HR PRN PRN Reason: Pain Pantoprazole [Protonix] 40 mg PO DAILY #30 tab Insulin Aspart [NovoLOG Flexpen] See Protocol SQ AC-TID PRN PRN Reason: Blood Sugar - High Cyanocobalamin [Vitamin B-12] 500 mcg PO MOWEFR Polyethylene Glycol 3350 [Miralax] 17 gm PO DAILY Budesonide-Formot 160-4.5 Mcg [Symbicort 160-4.5 Mcg Inhaler] 2 puff INHALATION RT-BID amLODIPine [Norvasc] 10 mg PO DAILY #30 tab Lisinopril [Zestril] 5 mg PO QAM Furosemide [Lasix] 40 mg PO BID@0900,1600 Spironolactone [Aldactone] 25 mg PO BID Ipratropium-Albuterol Nebulize [Duoneb 0.5 mg-3 mg/3 ml Soln] 3 ml INHALATION RT-TID Escitalopram Oxalate [Lexapro] 10 mg PO HS Discharge Medication List Insulin Detemir [Levemir Flextouch] 58 units SQ HS 12/21/14 [History] Montelukast [Singulair] 10 mg PO HS 12/21/14 [History] Insulin Aspart [NovoLOG Flexpen] 17 units SQ AC-TID 02/07/16 [History] Magnesium Oxide [Mag-Ox] 250 mg PO DAILY 02/07/16 [History] Pravastatin Sodium 40 mg PO HS 02/07/16 [History] Zinc 50 mg PO DAILY 02/07/16 [History] Novelty-3 Fatty Acids/Fish Oil [Fish Oil 1,000 mg Softgel] 1 cap PO DAILY [History] Acetaminophen Tab [Tylenol] 500 - 1,000 mg PO Q6HR PRN 03/17/17 [History] Pantoprazole [Protonix] 40 mg PO DAILY #30 tab 03/21/17 [Rx] Cyanocobalamin [Vitamin B-12] 500 mcg PO MOWEFR 11/12/17 [History] Insulin Aspart [NovoLOG Flexpen] See Protocol SQ AC-TID PRN 11/12/17 [History] Polyethylene Glycol 3350 [Miralax] 17 gm PO DAILY 11/12/17 [History] Budesonide-Formot 160-4.5 Mcg [Symbicort 160-4.5 Mcg Inhaler] 2 puff INHALATION RT-BID 11/13/17 [History] amLODIPine [Norvasc] 10 mg PO DAILY #30 tab 11/15/17 [Rx] Furosemide [Lasix] 40 mg PO BID@0900,1600 01/26/18 [History] Ipratropium-Albuterol Nebulize [Duoneb 0.5 mg-3 mg/3 ml Soln] 3 ml INHALATION RT -TID 01/26/18 [History] Lisinopril [Zestril] 5 mg PO QAM 01/26/18 [History] Spironolactone [Aldactone] 25 mg PO BID 01/26/18 [History] Escitalopram Oxalate [Lexapro] 10 mg PO HS 04/19/18 [History] Levofloxacin [Levaquin] 500 mg PO DAILY 5 Days #5 tab 04/23/18 [Rx] Lidocaine 5% Patch [Lidoderm 5% Patch] 1 patch TOPICAL DAILY #10 patch 04/23/18 [Rx] Follow up Appointment(s)/Referral(s): Luis Quesada Jr, DO [Primary Care Provider] - 04/26/18 10:30 am Rupert Loza MD [STAFF PHYSICIAN] - 05/11/18 10:00 am Zia Rubio DO [Doctor of Osteopathic Medicine] - 04/26/18 1:45 pm Ambulatory/Diagnostic Orders: Basic Metabolic Panel [LAB.AMB] Location: None Selected Complete Blood Count w/diff [LAB.AMB] Location: None Selected Patient Instructions/Handouts: Viral Pneumonia (DC), Sepsis (GEN)
[2018-04-23 15:24] VITALS: RESP 16
[2018-04-23 15:43] VITALS: PULSE 80
--- NOTE | 2018-04-23 17:48 | P.PN ---
Subjective Progress Note Date: 04/23/18 82-year-old male patient who presented to the burst department earlier for increased shortness of breath a few days duration. The patient was quite ill at time of admission, hypoxic and tachypneic and tachycardic and febrile. The patient was treated for pneumonia. CAT scan of the brain showed chronic age- related atrophy and there was no acute abnormalities noted. Influenza screen was negative. The patient improved significantly with antibiotics. Cultures came back all negative, including the blood culture and the patient's white cell count dropped down to 20,000, with a white count being as high as 49,000 and the time of admission. The patient is doing well. The patient was discharged home today on oral Levaquin. The patient is also being discharged on Lasix 40 mg by mouth twice a day. He'll be also placed on Aldactone 25 mg by mouth twice a day. Objective - Vital Signs Vital signs: Vital Signs Temp 98.9 F 04/23/18 06:16 Pulse 80 04/23/18 15:33 Resp 16 04/23/18 15:33 BP 133/64 04/23/18 06:16 Pulse Ox 92 L 04/23/18 06:16 Intake & Output 04/22/18 04/23/18 04/23/18 18:59 06:59 18:59 Intake Total 400 200 Balance 400 200 Weight 104.7 kg Intake: Oral 400 200 Other: Voiding Method Toilet Toilet # Voids 2 0 2 - Exam GENERAL EXAM: Alert, pleasant, 82-year-old white male, sitting up in the chair, in no distress, comfortable HEAD: Normocephalic/atraumatic. EYES: Normal reaction of pupils, equal size. Conjunctiva pink, sclera white. NOSE: Clear with pink turbinates. THROAT: No erythema or exudates. NECK: No masses, no JVD, no thyroid enlargement, no adenopathy. CHEST: No chest wall deformity. Symmetrical expansion. LUNGS: Equal air entry with no crackles, wheeze, rhonchi or dullness. CVS: Regular rate and rhythm, normal S1 and S2, no gallops, no murmurs, no rubs ABDOMEN: Soft, nontender. No hepatosplenomegaly, normal bowel sounds, no guarding or rigidity. EXTREMITIES: No clubbing, no edema, no cyanosis, 2+ pulses and upper and lower extremities. MUSCULOSKELETAL: Muscle strength and tone normal. SPINE: No scoliosis or deformity SKIN: No rashes CENTRAL NERVOUS SYSTEM: Alert and oriented -2. No focal deficits, tone is normal in all 4 extremities. PSYCHIATRIC: Alert and oriented -2. Appropriate affect. Intact judgment and insight. - Labs CBC & Chem 7: 04/23/18 11:02 04/23/18 11:02 Labs: Abnormal Lab Results - Last 24 Hours (Table) 04/20/18 04/20/18 04/22/18 Range/Units 11:17 11:17 20:56 WBC 49.4 H (3.8-10.6) k/uL RBC 3.94 L (4.30-5.90) m/uL Hgb 9.5 L D (13.0-17.5) gm/dL Hct 31.6 L (39.0-53.0) % MCV (80.0-100.0) fL MCH 24.2 L (25.0-35.0) pg MCHC 30.1 L (31.0-37.0) g/dL RDW 21.4 H (11.5-15.5) % Plt Count (150-450) k/uL Neutrophils # 46.9 H (1.3-7.7) k/uL Lymphocytes # 0.4 L (1.0-4.8) k/uL Monocytes # 1.5 H (0-1.0) k/uL Basophils # 0.4 H (0-0.2) k/uL Pathologist Review See comment A Sodium (137-145) mmol/L Chloride (98-107) mmol/L BUN (9-20) mg/dL Creatinine (0.66-1.25) mg/dL Glucose (74-99) mg/dL POC Glucose (mg/dL) 358 H (75-99) mg/dL 04/23/18 04/23/18 04/23/18 Range/Units 07:21 11:02 11:02 WBC 20.0 H (3.8-10.6) k/uL RBC (4.30-5.90) m/uL Hgb 10.6 L (13.0-17.5) gm/dL Hct 33.6 L (39.0-53.0) % MCV 77.6 L (80.0-100.0) fL MCH 24.5 L (25.0-35.0) pg MCHC (31.0-37.0) g/dL RDW 20.6 H (11.5-15.5) % Plt Count 458 H (150-450) k/uL Neutrophils # 17.1 H (1.3-7.7) k/uL Lymphocytes # (1.0-4.8) k/uL Monocytes # (0-1.0) k/uL Basophils # (0-0.2) k/uL Pathologist Review Sodium 134 L (137-145) mmol/L Chloride 94 L (98-107) mmol/L BUN 35 H (9-20) mg/dL Creatinine 1.26 H (0.66-1.25) mg/dL Glucose 161 H (74-99) mg/dL POC Glucose (mg/dL) 240 H (75-99) mg/dL 04/23/18 Range/Units 11:27 WBC (3.8-10.6) k/uL RBC (4.30-5.90) m/uL Hgb (13.0-17.5) gm/dL Hct (39.0-53.0) % MCV (80.0-100.0) fL MCH (25.0-35.0) pg MCHC (31.0-37.0) g/dL RDW (11.5-15.5) % Plt Count (150-450) k/uL Neutrophils # (1.3-7.7) k/uL Lymphocytes # (1.0-4.8) k/uL Monocytes # (0-1.0) k/uL Basophils # (0-0.2) k/uL Pathologist Review Sodium (137-145) mmol/L Chloride (98-107) mmol/L BUN (9-20) mg/dL Creatinine (0.66-1.25) mg/dL Glucose (74-99) mg/dL POC Glucose (mg/dL) 165 H (75-99) mg/dL Microbiology - Last 24 Hours (Table) 04/20/18 19:30 Gram Stain - Final Sputum Sputum Culture - Final 04/19/18 22:10 Blood Culture - Preliminary Blood No Growth after 72 hours Assessment and Plan Plan: Assessment: #1. Acute community acquired pneumonia, chest x-ray showed possible infiltrates at bilateral bases. #2. Leukocytosis, fever, altered mental status, acute kidney injury related to sepsis, improved in the right second is not to 20,000 #3. Anion gap metabolic acidosis related to lactic acidosis secondary to pneumonia and sepsis, improved with IV hydration, recovered #4. Acute kidney injury, stable #5. Mild hyperkalemia #6. Altered mental status, brain CT was negative for any acute findings #7. Severe COPD, and outpatient PFT showed FEV1 of 47% of predicted, an FVC of 46% predicted, and there is a component of restriction. Stable #8. Severe secondary pulmonary hypertension related to severe COPD #9. Chronic exertional dyspnea #10. History of renal cancer, status post partial nephrectomy, patient had a prolonged recovery course, requiring tracheostomy for failure to wean off the ventilator. Patient had since been decannulated #11. Hypertension #12. Diabetes mellitus type 2 #13. History of obstructive sleep apnea intolerant to CPAP #14. History of coronary artery disease with previous bypass grafting #15. Chronic systolic congestive heart failure with EF of 45% #16. BPH #17. Legs a small atrial fibrillation, not on any anticoagulation related to history of GI bleed in November 2017 #18. Left sixth and seventh rib fractures post fall Plan Will discharge the patient home on oral Levaquin to complete a seven-day course. Clinically much improved. Blood work shows improvement in leukocytosis. No major respiratory difficulties. Function is stable. Will follow if needed.
--- NOTE | 2018-04-23 19:23 | P.PN ---
Subjective Progress Note Date: 04/23/18 82-year-old male well-known to the service with as many hospitalizations presents to the emergency center feeling poorly for the last few days. Patient's daughter is present and relates that last weekend he suffered a fall onto the left side of his chest. It may have ongoing pain since that point in time. He now is having difficulties with significant discomfort in left side of his chest he's having cough with some sputum production is not bloody however. He's been feeling weaker he's had fever chills and some altered mentation and constantly was brought to the emergency center. 104 fever was found evidence of significant pneumonia. Because of this he's been admitted in with his white blood cell count of 49.4 and history of MRSA of the infectious diseases consultation was requested. The patient apparently is a bit clearer now than when he was no emergency center. He recognizes me easily by name. However does have some difficulty elucidating the details of what happened over the last week. 04/21/2018 patient feels slightly better today. Sitting up in the chair. Continues to have some difficulties with confusion. Relates that he is more comfortable. His lower extremity edema is improved. He relates that his breathing somewhat better and is using the incentive spirometer and is starting to have some improved sputum production. No hemoptysis. Feels weak. 04/23/2018 patient is feeling considerably better today. Confusion is improved. Is relating the desire to be discharged home. Fevers are resolved energy levels improved denies other interim troubles. He has the fractured ribs Doran discomfort but is able to easily utilize incentive spirometer today. He is ambling within the room without difficulties Objective - Vital Signs Vital signs: Vital Signs Temp 98.9 F 04/23/18 06:16 Pulse 80 04/23/18 15:33 Resp 16 04/23/18 15:33 BP 133/64 04/23/18 06:16 Pulse Ox 92 L 04/23/18 06:16 Intake & Output 04/23/18 04/23/18 04/24/18 06:59 18:59 06:59 Intake Total 200 Balance 200 Weight 104.7 kg Intake: Oral 200 Other: Voiding Method Toilet Toilet # Voids 0 2 - Exam HEENT: Anicteric conjunctiva are pink and moist nasal mucosa grossly intact without significant lesions, there is no thrush. Neck: The neck is supple without significant lymphadenopathy or thyromegaly. Lungs: Symmetrical air entry is noted there are crackles especially at the left base, expiratory wheezes are scattered. Heart: Regular rate and rhythm with an audible S1-S2, no S3 no S4. There is no significant murmur click or rub, PMI was nondisplaced. Abdomen: Positive bowel sounds soft and nontender without palpable masses or organomegaly. There was no guarding or rebound. Extremities: The upper extremities have excellent pulses they are symmetric, no significant petechiae or telangiectasia. No splinter hemorrhages were noted. The lower extremities are free from significant edema. The peripheral pulses were 2+ and symmetric. Neuro: Awake alert oriented to person place struggling with time. Able to move upper and lower extremities upon command. No acute gross focal sensory motor deficits has a friend in the room he has more cognizant than last evaluation - Labs CBC & Chem 7: 04/23/18 11:02 04/23/18 11:02 Labs: Abnormal Lab Results - Last 24 Hours (Table) 04/20/18 04/20/18 04/22/18 Range/Units 11:17 11:17 20:56 WBC 49.4 H (3.8-10.6) k/uL RBC 3.94 L (4.30-5.90) m/uL Hgb 9.5 L D (13.0-17.5) gm/dL Hct 31.6 L (39.0-53.0) % MCV (80.0-100.0) fL MCH 24.2 L (25.0-35.0) pg MCHC 30.1 L (31.0-37.0) g/dL RDW 21.4 H (11.5-15.5) % Plt Count (150-450) k/uL Neutrophils # 46.9 H (1.3-7.7) k/uL Lymphocytes # 0.4 L (1.0-4.8) k/uL Monocytes # 1.5 H (0-1.0) k/uL Basophils # 0.4 H (0-0.2) k/uL Pathologist Review See comment A Sodium (137-145) mmol/L Chloride (98-107) mmol/L BUN (9-20) mg/dL Creatinine (0.66-1.25) mg/dL Glucose (74-99) mg/dL POC Glucose (mg/dL) 358 H (75-99) mg/dL 04/23/18 04/23/18 04/23/18 Range/Units 07:21 11:02 11:02 WBC 20.0 H (3.8-10.6) k/uL RBC (4.30-5.90) m/uL Hgb 10.6 L (13.0-17.5) gm/dL Hct 33.6 L (39.0-53.0) % MCV 77.6 L (80.0-100.0) fL MCH 24.5 L (25.0-35.0) pg MCHC (31.0-37.0) g/dL RDW 20.6 H (11.5-15.5) % Plt Count 458 H (150-450) k/uL Neutrophils # 17.1 H (1.3-7.7) k/uL Lymphocytes # (1.0-4.8) k/uL Monocytes # (0-1.0) k/uL Basophils # (0-0.2) k/uL Pathologist Review Sodium 134 L (137-145) mmol/L Chloride 94 L (98-107) mmol/L BUN 35 H (9-20) mg/dL Creatinine 1.26 H (0.66-1.25) mg/dL Glucose 161 H (74-99) mg/dL POC Glucose (mg/dL) 240 H (75-99) mg/dL 04/23/18 Range/Units 11:27 WBC (3.8-10.6) k/uL RBC (4.30-5.90) m/uL Hgb (13.0-17.5) gm/dL Hct (39.0-53.0) % MCV (80.0-100.0) fL MCH (25.0-35.0) pg MCHC (31.0-37.0) g/dL RDW (11.5-15.5) % Plt Count (150-450) k/uL Neutrophils # (1.3-7.7) k/uL Lymphocytes # (1.0-4.8) k/uL Monocytes # (0-1.0) k/uL Basophils # (0-0.2) k/uL Pathologist Review Sodium (137-145) mmol/L Chloride (98-107) mmol/L BUN (9-20) mg/dL Creatinine (0.66-1.25) mg/dL Glucose (74-99) mg/dL POC Glucose (mg/dL) 165 H (75-99) mg/dL Microbiology - Last 24 Hours (Table) 04/20/18 19:30 Gram Stain - Final Sputum Sputum Culture - Final 04/19/18 22:10 Blood Culture - Preliminary Blood No Growth after 72 hours Laboratory Results WBC 20.0 k/uL (3.8-10.6) H 04/23/18 11:02 RBC 4.33 m/uL (4.30-5.90) 04/23/18 11:02 Hgb 10.6 gm/dL (13.0-17.5) L 04/23/18 11:02 Hct 33.6 % (39.0-53.0) L 04/23/18 11:02 MCV 77.6 fL (80.0-100.0) L 04/23/18 11:02 MCH 24.5 pg (25.0-35.0) L 04/23/18 11:02 MCHC 31.5 g/dL (31.0-37.0) 04/23/18 11:02 RDW 20.6 % (11.5-15.5) H 04/23/18 11:02 Plt Count 458 k/uL (150-450) H 04/23/18 11:02 Neutrophils % 85 % 04/23/18 11:02 Lymphocytes % 7 % 04/23/18 11:02 Monocytes % 5 % 04/23/18 11:02 Eosinophils % 1 % 04/23/18 11:02 Basophils % 0 % 04/23/18 11:02 Neutrophils # 17.1 k/uL (1.3-7.7) H 04/23/18 11:02 Lymphocytes # 1.4 k/uL (1.0-4.8) 04/23/18 11:02 Monocytes # 1.0 k/uL (0-1.0) 04/23/18 11:02 Eosinophils # 0.2 k/uL (0-0.7) 04/23/18 11:02 Basophils # 0.0 k/uL (0-0.2) 04/23/18 11:02 Manual Slide Review Performed 04/20/18 11:17 Pathologist Review See comment A 04/20/18 11:17 Toxic Granulation Present 04/22/18 12:00 Toxic Vacuolation Present 04/20/18 11:17 Large Platelets Present 04/19/18 22:10 Hypochromasia Slight 04/22/18 12:00 Poikilocytosis (manual Present 04/22/18 12:00 Anisocytosis Moderate 04/23/18 11:02 Anisocytosis (manual) Present 04/19/18 22:10 Microcytosis Moderate 04/23/18 11:02 Target Cells Present 04/21/18 08:32 [place]-[facility] Bodies Present 04/19/18 22:10 Fragmented RBCs Present 04/21/18 08:32 PT 10.4 sec (9.0-12.0) 04/19/18 22:10 INR 1.1 (<1.2) 04/19/18 22:10 APTT 23.8 sec (22.0-30.0) 04/19/18 22:10 Sodium 134 mmol/L (137-145) L 04/23/18 11:02 Potassium 4.8 mmol/L (3.5-5.1) 04/23/18 11:02 Chloride 94 mmol/L (98-107) L 04/23/18 11:02 Carbon Dioxide 27 mmol/L (22-30) 04/23/18 11:02 Anion Gap 13 mmol/L 04/23/18 11:02 BUN 35 mg/dL (9-20) H 04/23/18 11:02 Creatinine 1.26 mg/dL (0.66-1.25) H 04/23/18 11:02 Est GFR (CKD-EPI)AfAm 62 (>60 ml/min/1.73 sqM) 04/23/18 11:02 Est GFR (CKD-EPI)NonAf 54 (>60 ml/min/1.73 sqM) 04/23/18 11:02 Glucose 161 mg/dL (74-99) H 04/23/18 11:02 POC Glucose (mg/dL) 165 mg/dL (75-99) H 04/23/18 11:27 POC Glu Composition Mixer Agueda Bailey 04/23/18 11:[address] Glu mg/dL 209 04/19/18 22:10 Hemoglobin A1c 8.9 % (4.0-6.0) H 04/19/18 22:10 Osmolality 290 mosm/kg (280-301) 04/22/18 12:00 Lactic Ac Sepsis Rflx Y 04/19/18 22:49 Plasma Lactic Acid Dean 1.5 mmol/L (0.7-2.0) 04/20/18 02:33 Calcium 10.0 mg/dL (8.4-10.2) 04/23/18 11:02 Magnesium 2.0 mg/dL (1.6-2.3) 04/23/18 11:02 Total Bilirubin 0.3 mg/dL (0.2-1.3) 04/23/18 11:02 AST 24 U/L (17-59) 04/23/18 11:02 ALT 39 U/L (21-72) 04/23/18 11:02 Alkaline Phosphatase 73 U/L (38-126) 04/23/18 11:02 Total Creatine Kinase 168 U/L (55-170) 04/19/18 22:10 CK-MB (CK-2) 4.8 ng/mL (0.0-2.4) H 04/19/18 22:10 CK-MB (CK-2) Rel Index 2.9 04/19/18 22:10 Troponin I 0.017 ng/mL (0.000-0.034) 04/19/18 22:10 Total Protein 6.9 g/dL (6.3-8.2) 04/23/18 11:02 Albumin 3.8 g/dL (3.5-5.0) 04/23/18 11:02 Urine Color Yellow 04/20/18 00:30 Urine Appearance Clear (Clear) 04/20/18 00:30 Urine pH 5.5 (5.0-8.0) 04/20/18 00:30 Ur Specific [place] 1.013 (1.001-1.035) 04/20/18 00:30 Urine Protein 1+ (Negative) H 04/20/18 00:30 Urine Glucose (UA) 1+ (Negative) H 04/20/18 00:30 Urine Ketones Negative (Negative) 04/20/18 00:30 Urine Blood Trace (Negative) H 04/20/18 00:30 Urine Nitrite Negative (Negative) 04/20/18 00:30 Urine Bilirubin Negative (Negative) 04/20/18 00:30 Urine Urobilinogen <2.0 mg/dL (<2.0) 04/20/18 00:30 Ur Leukocyte Esterase Trace (Negative) H 04/20/18 00:30 Urine RBC 1 /hpf (0-5) 04/20/18 00:30 Urine WBC 4 /hpf (0-5) 04/20/18 00:30 Ur Squamous Epith Cells <1 /hpf (0-4) 04/20/18 00:30 Influenza Type A RNA Not Detected (Not Detectd) 04/19/18 22:34 Influenza Type B (PCR) Not Detected (Not Detectd) 04/19/18 22:34 Microbiology 04/20/18 19:30 Sputum Gram Stain - Final 04/20/18 19:30 Sputum Sputum Culture - Final 04/19/18 22:10 Blood Blood Culture - Preliminary No Growth after 72 hours 04/20/18 00:30 Urine,Voided Urine Culture - Final Assessment and Plan (1) Fever Narrative/Plan: 82-year-old male with multiple medical troubles presents to emergency center after having a fall last weekend. He is having ongoing pain to the left side of his chest. He developed a fever to 104 with some altered mental status and increasing weakness and consequently was evaluated. At The presentation temperature 104 was noted and is now improved with hydration and Tylenol therapy. The patient is evidence of the rib fractures likely causing the underlying pneumonic problem resulting in the high-grade fever and sepsis. He fortunately this point and is feeling slightly better. Antibiotic therapy was started with Levaquin. Patient has a known history of MRSA infection. Consequently concern to MRSA pneumonia as well as bacteremia this time with his current symptoms. Patient has a listed ALLERGY to vancomycin which is caused significant difficulties in the past and consequently linezolide will be utilized. Blood cultures are pending. Patient the family are instructed on the importance of his incentive spirometer , the patient is given a device and instructed how to use it and shows good technique. The importance of utilizing maneuvers to improve his pulmonary function is important. Blood cultures will be repeated 04/21/2018 patient seems to be feeling slightly better today. He is using his spirometer, receiving respiratory treatments and seems to have improved sputum production. Seems less short of breath. Continue current antibiotic therapies until we have further data.The profound leukocytosis is starting to improve and the patient's fever has resolved he was at 104 is now 97. 04/23/2018 patient is now considerably improved. His fever has resolved. Leukocytosis is approaching normal and the patient is feeling considerably better. Other than the sharp pain from his rib fractures he is feeling better. He relates is unable to effectively mobilize his secretions. With the incentive spirometer he has brought up a severe amount of secretions without hemoptysis. Feeling considerably better and likely will be discharged home today. We'll complete a course of levofloxacin the home setting. Will need follow-up blood work to ensure his white blood cell count normalizes completely considering his at 20 today. He also does have some elevation of his baseline creatinine at 1.24 and we need to have that followed up also with his primary care physician in the outpatient setting. Continue utilizing incentive spirometer and breathing treatments at his discharge. Status: Acute Code(s): R50.9 - FEVER, UNSPECIFIED SNOMED Code(s): 838310314 (2) Leukocytosis Status: Acute Code(s): D72.829 - ELEVATED WHITE BLOOD CELL COUNT, UNSPECIFIED SNOMED Code(s): 923618619 (3) Pneumonia Status: Acute Code(s): J18.9 - PNEUMONIA, UNSPECIFIED ORGANISM SNOMED Code(s ): 742127816
[2018-04-23] MEDS ORDERED: LEVOFLOXACIN 750 MG TAB PO SCH (21:00)
== END 2018-04-23 16:10 | disposition home or self-care (01) | DRG 871 ==
LOC: EC 21:58 → 4MS4W 04-20 04:05
PROVIDERS: ADMIT Family Medicine; ATTEND Family Medicine
DX: A41.9 Sepsis, unspecified organism (principal); J18.9 Pneumonia, unspecified organism; E87.2 Acidosis; I42.9 Cardiomyopathy, unspecified; I50.22 Chronic systolic (congestive) heart failure; J44.0 Chronic obstructive pulmonary disease with (acute) lower respiratory infection; N17.9 Acute kidney failure, unspecified; S22.42XA Multiple fractures of ribs, left side, initial encounter for closed fracture; E11.65 Type 2 diabetes mellitus with hyperglycemia; E78.5 Hyperlipidemia, unspecified; E87.5 Hyperkalemia; F32.9 Major depressive disorder, single episode, unspecified; F41.9 Anxiety disorder, unspecified; G47.33 Obstructive sleep apnea (adult) (pediatric); I11.0 Hypertensive heart disease with heart failure; I25.10 Atherosclerotic heart disease of native coronary artery without angina pectoris; I25.2 Old myocardial infarction; I27.29 Other secondary pulmonary hypertension; I48.0 Paroxysmal atrial fibrillation; J84.10 Pulmonary fibrosis, unspecified; M19.041 Primary osteoarthritis, right hand; M19.042 Primary osteoarthritis, left hand; N40.0 Benign prostatic hyperplasia without lower urinary tract symptoms; R09.02 Hypoxemia; K44.9 Diaphragmatic hernia without obstruction or gangrene; R01.1 Cardiac murmur, unspecified; R06.03 Acute respiratory distress; M47.9 Spondylosis, unspecified; Z79.4 Long term (current) use of insulin; Z79.51 Long term (current) use of inhaled steroids; Z79.899 Other long term (current) drug therapy; Z95.1 Presence of aortocoronary bypass graft; Z90.81 Acquired absence of spleen; Z90.5 Acquired absence of kidney; Z90.411 Acquired partial absence of pancreas; Z87.891 Personal history of nicotine dependence; Z86.73 Personal history of transient ischemic attack (TIA), and cerebral infarction without residual deficits; Z86.14 Personal history of Methicillin resistant Staphylococcus aureus infection; Z85.528 Personal history of other malignant neoplasm of kidney; Z88.1 Allergy status to other antibiotic agents; Z88.5 Allergy status to narcotic agent; Z88.0 Allergy status to penicillin; Z88.2 Allergy status to sulfonamides; Z88.8 Allergy status to other drugs, medicaments and biological substances; Z98.42 Cataract extraction status, left eye; Z98.41 Cataract extraction status, right eye; Z96.1 Presence of intraocular lens; Z82.49 Family history of ischemic heart disease and other diseases of the circulatory system; Z82.5 Family history of asthma and other chronic lower respiratory diseases; W19.XXXA Unspecified fall, initial encounter
CPT/HCPCS: 36415; 70450; 71045; 80048; 80053; 81001; 82550; 82553; 83036; 83605; 83735; 83930; 84484; 85025; 85610; 85730; 87040; 87070; 87086; 87205; 87502; 93005; 94640; 94660; 94760; 96365; 96367; 99285

== ENCOUNTER 2018-08-21 15:53 | Inpatient (IN) | payer MEDICARE, BC ==
[2018-08-21 16:44] LABS: Basophils # (A) 0.1 k/uL (0-0.2); Basophils % (A) 1 %; Eosinophils # (A) 0.4 k/uL (0-0.7); Eosinophils % (A) 2 %; HCT 32.9 % (39.0-53.0); HGB 10.3 gm/dL (13.0-17.5); Hypochromasia Slight; Lymphocytes # (A) 2.6 k/uL (1.0-4.8); Lymphocytes % (A) 17 %; MCHC 31.3 g/dL (31.0-37.0); MCV 76.8 fL (80.0-100.0); Mean Platelet Volume 7.3; Microcytosis Slight; Monocytes # (A) 1.2 k/uL (0-1.0); Monocytes % (A) 8 %; Neutrophils # (A) 10.5 k/uL (1.3-7.7); Neutrophils % (A) 69 %; Platelet Count 497 k/uL (150-450); RBC 4.28 m/uL (4.30-5.90); RDW 15.1 % (11.5-15.5); WBC 15.3 k/uL (3.8-10.6)
--- NOTE | 2018-08-21 16:49 | XR ---
EXAMINATION TYPE: XR foot complete RT DATE OF EXAM: 08/21/2018 COMPARISON: 11/12/2017 HISTORY: Pain TECHNIQUE: 3 views FINDINGS: There is old healed fracture distal shaft of the fifth metatarsal. I see no acute fracture nor dislocation. There is vascular calcification. There is mild calcaneal spurring. I see no focal manuel ne destruction. There is a tiny metallic linear density at the plantar aspect of the big toe.. IMPRESSION: No acute abnormality of the right foot. No sign of osteomyelitis. Small linear metallic f oreign body at the base of the big toe unchanged.
[2018-08-21 16:52] LABS: Albumin 4.4 g/dL (3.5-5.0); Calcium 10.1 mg/dL (8.4-10.2); Potassium 5.1 mmol/L (3.5-5.1); Total Bilirubin 0.3 mg/dL (0.2-1.3); Total Protein 7.6 g/dL (6.3-8.2)
[2018-08-21] MEDS ORDERED: LEVOFLOXACIN 750MG-D5W PMX 750 MG in DEXTROSE/WATER 1 150ML.BAG IVPB STA (17:15)
--- NOTE | 2018-08-21 18:06 | ED ---
Extremity Problem HPI - General Chief complaint: Extremity Problem,Nontraumatic Stated complaint: rt foot infection Time Seen by Provider: 08/21/18 16:10 Source: patient, family Mode of arrival: wheelchair Limitations: no limitations - History of Present Illness Initial comments: 83-year-old male with past medical history of diabetes, hypertension, peripheral neuropathy and chronic wounds presented today for chief complaint of right heel wound. Patient states that he has seen Dr. Loza for the past 20 years on and off. He states he has recurrent chronic wounds that appear in one location, heal, and then reappear in a different location. Patient states he has not had a wound for a couple months. He states that he sees podiatry frequently. He states he was at a podiatry appointment today for a wound that developed on his right heel, they were concerned the wound was to the bone and were instructed to present to emergency department for evaluation. Patient states he changed his shoes and was in [place] when it intially developed over the course of the past 2 weeks. Patient denies any liver or kidney dysfunction. Patient does have his tory of kidney cancer however states function has been preserved. Patient denies any constitutional symptoms including fever chills night sweats general malaise or fatigue. He states he wanted to make sure he catches the infection quickly, he states he was instructed to present by Dr. Loza. Remaining review of systems negative, patient denies any recent shortness of breath, chest pain, back pain, abdominal pain, nausea or vomiting, numbness or tingling, dysuria or hematuria, constipation or diarrhea, headaches or visual changes, or any other complaints. - Related Data Home Medications Medication Instructions Recorded Confirmed Insulin Detemir [Levemir Flextouch] 58 units SQ HS 12/21/14 08/21/18 Montelukast [Singulair] 10 mg PO HS 12/21/14 08/21/18 Insulin Aspart [NovoLOG Flexpen] 17 units SQ AC-TID 02/07/16 08/21/18 Magnesium Oxide [Mag-Ox] 250 mg PO DAILY 02/07/16 08/21/18 Pravastatin Sodium 40 mg PO HS 02/07/16 08/21/18 Zinc 50 mg PO DAILY 02/07/16 08/21/18 [place]rose-3 Fatty Acids/Fish Oil [Fish 1 cap PO DAILY 08/13/16 08/21/18 Oil 1,000 mg Softgel] Acetaminophen Tab [Tylenol] 1,000 mg PO BID 03/17/17 08/21/18 Insulin Aspart [NovoLOG Flexpen] See Protocol SQ AC-TID PRN 11/12/17 08/21/18 Budesonide-Formot 160-4.5 Mcg 2 puff INHALATION RT-BID 11/13/17 08/21/18 [Symbicort 160-4.5 Mcg Inhaler] Furosemide [Lasix] 40 mg PO DAILY 01/26/18 08/21/18 Ipratropium-Albuterol Nebulize 3 ml INHALATION RT-TID 01/26/18 08/21/18 [Duoneb 0.5 mg-3 mg/3 ml Soln] Lisinopril [Zestril] 5 mg PO QAM 01/26/18 08/21/18 Spironolactone [Aldactone] 25 mg PO BID 01/26/18 08/21/18 Escitalopram Oxalate [Lexapro] 10 mg PO HS 04/19/18 08/21/18 Multivitamins, Thera [Multivitamin 1 tab PO DAILY 08/21/18 08/21/18 (formulary)] Previous Rx's Medication Instructions Recorded Pantoprazole [Protonix] 40 mg PO DAILY #30 tab 03/21/17 amLODIPine [Norvasc] 10 mg PO DAILY #30 tab 11/15/17 Allergies Allergy/AdvReac Type Severity Reaction Status Date / Time Penicillins Allergy Unknown Rash/Hives Verified 08/21/18 16:52 atorvastatin calcium Allergy Unknown Verified 08/21/18 16:52 [From Lipitor] clonazepam [From Klonopin] Allergy Hallucinati Verified 08/21/18 16:52 ons codeine Allergy Hallucinati Verified 08/21/18 16:52 ons haloperidol [From Haldol] Allergy Hallucinati Verified 08/21/18 16:52 ons haloperidol lactate Allergy Hallucinati Verified 08/21/18 16:52 [From Haldol] ons hydromorphone HCl Allergy Hallucinati Verified 08/21/18 16:52 [From Dilaudid] ons methylphenidate HCl Allergy Hallucinati Verified 08/21/18 16:52 [From Ritalin] ons morphine Allergy Hallucinati Verified 08/21/18 16:52 ons propofol Allergy Hallucinati Verified 08/21/18 16:52 ons quetiapine fumarate Allergy Hallucinati Verified 08/21/18 16:52 [From Seroquel] ons Sulfa (Sulfonamide Allergy Unknown Verified 08/21/18 16:52 Antibiotics) vancomycin Allergy Unknown Verified 08/21/18 16:52 ativan AdvReac Unknown Uncoded 08/21/18 16:07 Review of Systems ROS Statement: Those systems with pertinent positive or pertinent negative responses have been documented in the HPI. ROS Other: All systems not noted in ROS Statement are negative. Past Medical History Past Medical History: Atrial Fibrillation, Coronary Artery Disease (CAD), Cancer, Heart Failure, COPD, CVA/TIA, Diabetes Mellitus, Eye Disorder, GI Bleed, Hyperlipidemia, Hypertension, Myocardial Infarction ([place]), Osteoarthritis (OA), Prostate Disorder, Skin Disorder, Sleep Apnea/CPAP/BIPAP Additional Past Medical History / Comment(s): Anemia, blood and iron transfusions, right leg cellulitis, 2013 L renal cancer with surgery - partial nephrectomy/spleenectomy/distal portion of pancreas removed at [facility], IDDM type II, TIA, [place] unknown date, BPH, gastritis, small hiatal hernia, past discitis T9-T10, arthritis bilateral hands/back, TARIQ - does not tolerate his CPAP, past R great toe ulcer/infection. Last Myocardial Infarction Date:: UNKNOWN History of Any Multi-Drug Resistant Organisms: MRSA Date of last positivie culture/infection: 11/13/17 MDRO Source:: RIGHT TOE Past Surgical History: Coronary Bypass/CABG, Heart Catheterization Additional Past Surgical History / Comment(s): Partial L nephrectomy, distal pancreatectomy, splenectomy - at [email or web address] CABG - 3 vessel, EGD, colonoscopy, deviated septum surgery, skin/oral lesion removals, R carpal tunnel release, bilateral cataract removal, bilateral laser eye surgery for "leakage". Past Anesthesia/Blood Transfusion Reactions: Previous Problems w/ Anesthesia Additional Past Anesthesia/Blood Transfusion Reaction / Comment(s): 'TROUBLE COMING OUT OF ANESTHESIA' - DELUSIONAL. Patient has received blood in past without reaction. Past Psychological History: Anxiety, Depression Smoking Status: Never smoker Past Alcohol Use History: None Reported Past Drug Use History: None Reported - Past Family History Father Family Medical History: Myocardial Infarction ([place]) Mother Family Medical History: COPD General Exam - General Exam Comments Initial Comments: General: The patient is awake and alert, in no distress, and does not appear acutely ill. Eye: +3 mm pupils are equal, round and reactive to light, extra-ocular movements are intact. No nystagmus. There is normal conjunctiva bilaterally. No signs of icterus. Ears, nose, mouth and throat: There are moist mucous membranes and no oral lesions. Neck: The neck is supple, there is no tenderness or JVD. Cardiovascular: There is a regular rate and rhythm. No murmur, rub or gallop is appreciated. Respiratory: Lungs are clear to auscultation, respirations are non-labored, breath sounds are equal. No wheezes, stridor, rales, or rhonchi. Gastrointestinal: Soft, non-distended, non-tender abdomen without masses or organomegaly noted. There is no rebound or guarding present. No CVA tenderness. Bowel sounds are unremarkable. Musculoskeletal: Normal ROM, no tenderness. Strength 5/5. Sensation intact. Radial pulses equal bilaterally 2+. Neurological: A&O x 3. CN II-XII intact, There are no obvious motor or sensory deficits. Coordination appears grossly intact. Speech is normal. Skin: Skin is warm and dry and no rashes or lesions are noted. Circular u lceration of the bottom right heel with rounding excoriation, serosanguineous fluid, no purulent drainage. Mild odor. Crepitus to palpation of the skin, there is no significant surrounding erythema or spread of erythema proximally. Psychiatric: Cooperative, appropriate mood & affect, normal judgment. Limitations: no limitations Course Vital Signs 08/21/18 16:01 Temperature 99.4 F Pulse Rate 102 H Respiratory 22 Rate Blood Pressure 213/67 O2 Sat by Pulse 94 L Oximetry Medical Decision Making - Medical Decision Making Pleasant well-appearing, 83-year-old male presented for right foot wound, patient states he has issues with recurrence of chronic wounds. Patient sees Dr. Loza as well as outpatient podiatry. Patient was sent from both podiatry as well as Dr. Loza for admission for treatment of right foot wound, there is concern for possible osteomyelitis. Imaging studies revealed no osseous indication of osteomyelitis at this time. Patient has leukocytosis. Lactic acid within normal limits. Blood cultures pending. Patient was started on broad-spectrum antibiotic that was compatible with patient's drug ALLERGIES- levoquin. I discussed the case with him provider Dr. Umanzor who is agreeable to admission at this time for intravenous antibiotics, infectious disease consultation. Patient was admitted to the floor transferred in stable condition appearing well. - Lab Data Result diagrams: 08/21/18 16:35 08/21/18 16:35 Lab Results 08/21/18 08/21/18 08/21/18 Range/Units 16:35 16:35 16:35 WBC 15.3 H (3.8-10.6) k/uL RBC 4.28 L (4.30-5.90) m/uL Hgb 10.3 L (13.0-17.5) gm/dL Hct 32.9 L (39.0-53.0) % MCV 76.8 L (80.0-100.0) fL MCH 24.0 L (25.0-35.0) pg MCHC 31.3 (31.0-37.0) g/dL RDW 15.1 (11.5-15.5) % Plt Count 497 H (150-450) k/uL Neutrophils % 69 % Lymphocytes % 17 % Monocytes % 8 % Eosinophils % 2 % Basophils % 1 % Neutrophils # 10.5 H (1.3-7.7) k/uL Lymphocytes # 2.6 (1.0-4.8) k/uL Monocytes # 1.2 H (0-1.0) k/uL Eosinophils # 0.4 (0-0.7) k/uL Basophils # 0.1 (0-0.2) k/uL Hypochromasia Slight Microcytosis Slight Sodium 137 (137-145) mmol/L Potassium 5.1 (3.5-5.1) mmol/L Chloride 98 (98-107) mmol/L Carbon Dioxide 28 (22-30) mmol/L Anion Gap 11 mmol/L BUN 37 H (9-20) mg/dL Creatinine 1.30 H (0.66-1.25) mg/dL Est GFR (CKD-EPI)AfAm 59 (>60 ml/min/1.73 sqM) Est GFR (CKD-EPI)NonAf 51 (>60 ml/min/1.73 sqM) Glucose 133 H (74-99) mg/dL Plasma Lactic Acid Dean 1.3 (0.7-2.0) mmol/L Calcium 10.1 (8.4-10.2) mg/dL Total Bilirubin 0.3 (0.2-1.3) mg/dL AST 26 (17-59) U/L ALT 37 (21-72) U/L Alkaline Phosphatase 64 (38-126) U/L Total Protein 7.6 (6.3-8.2) g/dL Albumin 4.4 (3.5-5.0) g/dL Disposition Clinical Impression: Wound, open, foot, Leukocytosis, Infection of right foot Disposition: ADMITTED IP TO THIS [facility] Condition: Stable Is patient prescribed a controlled substance at d/c from ED?: No Referrals: Luis Quesada Jr, DO [Primary Care Provider] - 1-2 days Time of Disposition: 18:15 Decision to Admit Reason: Admit from EC Decision Date: 08/21/18 Decision Time: 18:15
[2018-08-21] MEDS ORDERED: ACETAMINOPHEN TAB 325 MG TAB PO PRN (18:15)
[2018-08-21] MEDS ORDERED: NALOXONE 0.4 MG/ML 1 ML VIAL IV PRN (18:15)
[2018-08-21] MEDS: SODIUM CHLORIDE 0.9% 1,000 ML IV SCH (18:40)
[2018-08-21 20:49] LABS: Glucose,Whole Blood 264 mg/dL (75-99)
[2018-08-21] MEDS ORDERED: INSULIN DETEMIR (LEVEMIR) 100 UNIT/ML SYR SQ SCH (22:30)
[2018-08-21] MEDS: ESCITALOPRAM 10 MG TAB PO SCH (22:43)
[2018-08-21] MEDS: MONTELUKAST 10 MG TAB PO SCH (22:43)
[2018-08-21] MEDS: SPIRONOLACTONE 25 MG TAB PO SCH (22:43)
[2018-08-21] MEDS: ACETAMINOPHEN TAB 500 MG TAB PO SCH (22:44)
[2018-08-21] MEDS: INSULIN ASPART (NovoLOG) 100 UNIT/ML VIAL SQ SCH (22:45)
[2018-08-21] MEDS ORDERED: PRAVASTATIN SODIUM 40 MG TAB PO SCH (23:00)
[2018-08-22 01:55] LABS: Glucose,Whole Blood 237 mg/dL (75-99)
[2018-08-22 07:05] LABS: Glucose,Whole Blood 140 mg/dL (75-99)
[2018-08-22] MEDS ORDERED: INSULIN ASPART (NovoLOG) 100 UNIT/ML VIAL SQ SCH (07:30)
[2018-08-22] MEDS: INSULIN ASPART (NovoLOG) 100 UNIT/ML VIAL SQ SCH ×4 (07:46→21:54)
[2018-08-22] MEDS: FUROSEMIDE 40 MG TAB PO SCH (07:46)
[2018-08-22] MEDS: MAGNESIUM OXIDE 400 MG TAB PO SCH (07:46)
[2018-08-22] MEDS: SPIRONOLACTONE 25 MG TAB PO SCH ×2 (07:50→21:54)
[2018-08-22] MEDS: ZINC SULFATE 220 MG CAP PO SCH (07:50)
[2018-08-22] MEDS: amLODIPine 10 MG TAB PO SCH (07:50)
[2018-08-22] MEDS: LISINOPRIL 5 MG TAB PO SCH (07:50)
[2018-08-22] MEDS: PANTOPRAZOLE 40 MG TABLET PO SCH (07:50)
[2018-08-22] MEDS: ACETAMINOPHEN TAB 500 MG TAB PO SCH ×2 (07:50→21:53)
[2018-08-22] MEDS: SODIUM CHLORIDE 0.9% 1,000 ML IV SCH ×2 (07:51→23:18)
[2018-08-22] MEDS: IPRATROPIUM-ALBUTEROL 3 ML NEB INHALATION PRN ×4 (08:18→20:40)
[2018-08-22 09:55] LABS: Basophils # (A) 0.1 k/uL (0-0.2); Basophils % (A) 1 %; Eosinophils # (A) 0.3 k/uL (0-0.7); Eosinophils % (A) 2 %; HCT 32.9 % (39.0-53.0); HGB 10.6 gm/dL (13.0-17.5); Hypochromasia Slight; Lymphocytes # (A) 2.6 k/uL (1.0-4.8); Lymphocytes % (A) 18 %; MCH 24.8 pg (25.0-35.0); MCHC 32.2 g/dL (31.0-37.0); Monocytes # (A) 0.9 k/uL (0-1.0); Monocytes % (A) 6 %; Neutrophils # (A) 9.8 k/uL (1.3-7.7); Neutrophils % (A) 70 %; Platelet Count 524 k/uL (150-450); Poikilocytosis Slight; RBC 4.28 m/uL (4.30-5.90); RDW 14.6 % (11.5-15.5)
--- NOTE | 2018-08-22 09:58 | P.CONS ---
History of Present Illness - Reason for Consult Consult date: 08/22/18 Right foot infection - History of Present Illness This is an 83-year-old male patient well known to ID service due to previous hospitalizations and chronic wounds to the lower extremities. Patient gives history that he obtain new shoes from right and folliculus and he was in [place] walking quite a bit and developed callus and then a wound to the right heel. He saw his solderer assembler yesterday, Dr. oCats and he was sent into [facility] emergency center for evaluation. He was found to be afebri le, white count 15.3, creatinine 1.3. Lactic acid 1.3. A foot x-ray showed no acute abnormality. No osteomyelitis. Small [place] metallic foreign body at the base of the big toe unchanged. Patient was started on Levaquin and admitted to the [facility] floor. 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 Regarding diabetes mellitus type 2, he states his blood sugars have been running high and he does not know his hemoglobin A1c. Review of Systems All systems: negative Constitutional: Denies anorexia, Denies chills, Denies fatigue, Denies fever, Denies malaise, Denies poor appetite, Denies weakness Eyes: denies blurred vision, denies pain Ears, nose, mouth and throat: Denies dental pain, Denies dysphagia, Denies headache, Denies mouth pain, Denies nasal congestion, Denies nasal discharge, Denies sore throat, Denies vertigo Cardiovascular: Denies chest pain, Denies dyspnea on exertion, Denies edema, Denies leg edema, Denies lightheadedness, Denies shortness of breath, Denies syncope Respiratory: Denies cough, Denies cough with sputum, Denies dyspnea, Denies excessive sputum, Denies hemoptysis, Denies home oxygen, Denies wheezing Gastrointestinal: Denies abdominal pain, Denies diarrhea, Denies loss of appetite, Denies nausea, Denies vomiting Genitourinary: Denies dysuria, Denies urinary retention Musculoskeletal: Denies frequent falls, Denies gait dysfunction, Denies myalgias Integumentary: Reports color changes, Reports darkening of skin, Reports wounds, Denies pruritus, Denies rash Neurological: Denies aphasia, Denies change in mentation, Denies change in speech, Denies gait dysfunction, Denies headaches, Denies numbness, Denies seizures, Denies weakness Psychiatric: Denies anxiety, Denies depression Endocrine: Denies fatigue, Denies weight change Past Medical History Past Medical History: Atrial Fibrillation, Coronary Artery Disease (CAD), Cancer, Heart Failure, COPD, CVA/TIA, Diabetes Mellitus, Eye Disorder, GI Bleed, Hyperlipidemia, Hypertension, Myocardial Infarction (SC), Osteoarthritis (OA), Prostate Disorder, Skin Disorder, Sleep Apnea/CPAP/BIPAP Additional Past Medical History / Comment(s): Anemia, blood and iron transfusions, right leg cellulitis, 2014 L renal cancer with surgery - partial nephrectomy/spleenectomy/distal portion of pancreas removed at [facility], IDDM type II, TIA, [place] unknown date, BPH, gastritis, small hiatal hernia, past discitis T9-T10, arthritis bilateral hands/back, TARIQ - does not tolerate his CPAP, past R great toe ulcer/infection. Last Myocardial Infarction Date:: UNKNOWN History of Any Multi-Drug Resistant Organisms: MRSA Year Discovered:: 11/13/17 MDRO Source:: RIGHT TOE Past Surgical History: Coronary Bypass/CABG, Heart Catheterization Additional Past Surgical History / Comment(s): Partial L nephrectomy, distal pancreatectomy, splenectomy - at [id number] CABG - 3 vessel, EGD, colonoscopy, deviated septum surgery, skin/oral lesion removals, R carpal tunnel release, bilateral cataract removal, bilateral laser eye surgery for "leakage". Past Anesthesia/Blood Transfusion Reactions: Previous Problems w/ Anesthesia Additional Past Anesthesia/Blood Transfusion Reaction / Comm: 'TROUBLE COMING OUT OF ANESTHESIA' - DELUSIONAL. Patient has received blood in past without reaction. Past Psychological History: Anxiety, Depression Additional Psychological History / Comment(s): Pt resides with his spouse. He uses a cane or walker to ambulate. He no longer drives. His spouse drives and manages his medications. No current alcohol use. 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 No marijuana or illicit drug use. No alcohol use. Patient resides with his spouse. He uses a cane or walker to ambulate. He no longer drives. H is pulse tries and manages his medications. 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 Past Drug Use History: None Reported - Past Family History Father Family Medical History: Myocardial Infarction (SC) Mother Family Medical History: COPD Medications and Allergies Home Medications Medication Instructions Recorded Confirmed Type Insulin Detemir [Levemir Flextouch] 58 units SQ HS 12/21/14 08/21/18 History Montelukast [Singulair] 10 mg PO HS 12/21/14 08/21/18 History Insulin Aspart [NovoLOG Flexpen] 17 units SQ AC-TID 02/07/16 08/21/18 History Magnesium Oxide [Mag-Ox] 250 mg PO DAILY 02/07/16 08/21/18 History Pravastatin Sodium 40 mg PO HS 02/07/16 08/21/18 History Zinc 50 mg PO DAILY 02/07/16 08/21/18 History [place]-3 Fatty Acids/Fish Oil [Fish 1 cap PO DAILY 08/13/16 08/21/18 History Oil 1,000 mg Softgel] Acetaminophen Tab [Tylenol] 1,000 mg PO BID 03/17/17 08/21/18 History Pantoprazole [Protonix] 40 mg PO DAILY #30 tab 03/21/17 08/21/18 Rx Insulin Aspart [NovoLOG Flexpen] See Protocol SQ AC-TID PRN 11/12/17 08/21/18 History Budesonide-Formot 160-4.5 Mcg 2 puff INHALATION RT-BID 11/13/17 08/21/18 History [Symbicort 160-4.5 Mcg Inhaler] amLODIPine [Norvasc] 10 mg PO DAILY #30 tab 11/15/17 08/21/18 Rx Furosemide [Lasix] 40 mg PO DAILY 01/26/18 08/21/18 History Ipratropium-Albuterol Nebulize 3 ml INHALATION RT-TID 01/26/18 08/21/18 History [Duoneb 0.5 mg-3 mg/3 ml Soln] Lisinopril [Zestril] 5 mg PO QAM 01/26/18 08/21/18 History Spironolactone [Aldactone] 25 mg PO BID 01/26/18 08/21/18 History Escitalopram Oxalate [Lexapro] 10 mg PO HS 04/19/18 08/21/18 History Multivitamins, Thera [Multivitamin 1 tab PO DAILY 08/21/18 08/21/18 History (formulary)] Allergies Allergy/AdvReac Type Severity Reaction Status Date / Time Penicillins Allergy Unknown Rash/Hives Verified 08/21/18 16:52 atorvastatin calcium Allergy Unknown Verified 08/21/18 16:52 [From Lipitor] clonazepam [From Klonopin] Allergy Hallucinati Verified 08/21/18 16:52 ons codeine Allergy Hallucinati Verified 08/21/18 16:52 ons haloperidol [From Haldol] Allergy Hallucinati Verified 08/21/18 16:52 ons haloperidol lactate Allergy Hallucinati Verified 08/21/18 16:52 [From Haldol] ons hydromorphone HCl Allergy Hallucinati Verified 08/21/18 16:52 [From Dilaudid] ons methylphenidate HCl Allergy Hallucinati Verified 08/21/18 16:52 [From Ritalin] ons morphine Allergy Hallucinati Verified 08/21/18 16:52 ons propofol Allergy Hallucinati Verified 08/21/18 16:52 ons quetiapine fumarate Allergy Hallucinati Verified 08/21/18 16:52 [From Seroquel] ons Sulfa (Sulfonamide Allergy Unknown Verified 08/21/18 16:52 Antibiotics) vancomycin Allergy Unknown Verified 08/21/18 16:52 ativan AdvReac Unknown Uncoded 08/21/18 16:07 Physical Exam Vitals: Vital Signs Temp Pulse Pulse Resp BP BP Pulse Ox 08/22/18 08:28 84 08/22/18 08:18 84 08/22/18 05:12 97.0 F L 70 18 120/57 96 08/21/18 21:21 97.5 F L 69 18 129/67 95 08/21/18 18:30 74 18 136/64 95 08/21/18 18:00 76 18 139/69 95 08/21/18 16:01 99.4 F 102 H 22 213/67 94 L Intake and Output 08/21/18 08/22/18 08/22/18 22:59 06:59 14:59 Intake Total 240 Balance 240 Intake: Oral 240 Other: # Voids 1 2 Weight 104.78 kg Gen: This is an 83-year-old male. Patient is resting on the edge of the bed and appears to be comfortable and in no acute distress. HEENT: Head is atraumatic, normocephalic. Pupils equal, round. Sclerae is anicteric. Conjunctiva pink. Mucous members of the mouth are moist. NECK: Supple. No JVD. No lymphadenopathy. No thyromegaly. LUNGS: Clear to auscultation. No wheezes or rhonchi. No intercostal retractions. HEART: Regular rate and rhythm. No murmur. ABDOMEN: Soft. Bowel sounds are present. No masses. No tenderness. EXTREMITIES: Dorsalis pedis +[address] to the right he was not removed for evaluation deferred to Dr. Loza. NEUROLOGICAL: Patient is awake, alert and oriented x3. Cranial nerves 2 through 12 are grossly intact. Results Results: Laboratory Results WBC 15.3 k/uL (3.8-10.6) H 08/21/18 16:35 RBC 4.28 m/uL (4.30-5.90) L 08/21/18 16:35 Hgb 10.3 gm/dL (13.0-17.5) L 08/21/18 16:35 Hct 32.9 % (39.0-53.0) L 08/21/18 16:35 MCV 76.8 fL (80.0-100.0) L 08/21/18 16:35 MCH 24.0 pg (25.0-35.0) L 08/21/18 16:35 MCHC 31.3 g/dL (31.0-37.0) 08/21/18 16:35 RDW 15.1 % (11.5-15.5) 08/21/18 16:35 Plt Count 497 k/uL (150-450) H 08/21/18 16:35 Neutrophils % 69 % 08/21/18 16:35 Lymphocytes % 17 % 08/21/18 16:35 Monocytes % 8 % 08/21/18 16:35 Eosinophils % 2 % 08/21/18 16:35 Basophils % 1 % 08/21/18 16:35 Neutrophils # 10.5 k/uL (1.3-7.7) H 08/21/18 16:35 Lymphocytes # 2.6 k/uL (1.0-4.8) 08/21/18 16:35 Monocytes # 1.2 k/uL (0-1.0) H 08/21/18 16:35 Eosinophils # 0.4 k/uL (0-0.7) 08/21/18 16:35 Basophils # 0.1 k/uL (0-0.2) 08/21/18 16:35 Hypochromasia Slight 08/21/18 16:35 Microcytosis Slight 08/21/18 16:35 Sodium 137 mmol/L (137-145) 08/21/18 16:35 Potassium 5.1 mmol/L (3.5-5.1) 08/21/18 16:35 Chloride 98 mmol/L (98-107) 08/21/18 16:35 Carbon Dioxide 28 mmol/L (22-30) 08/21/18 16:35 Anion Gap 11 mmol/L 08/21/18 16:35 BUN 37 mg/dL (9-20) H 08/21/18 16:35 Creatinine 1.30 mg/dL (0.66-1.25) H 08/21/18 16:35 Est GFR (CKD-EPI)AfAm 59 (>60 ml/min/1.73 sqM) 08/21/18 16:35 Est GFR (CKD-EPI)NonAf 51 (>60 ml/min/1.73 sqM) 08/21/18 16:35 Glucose 133 mg/dL (74-99) H 08/21/18 16:35 POC Glucose (mg/dL) 140 mg/dL (75-99) H 08/22/18 06:52 POC Glu Making Machine 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 DAYANARA Dorene Engel 08/22/18 06:52 Plasma Lactic Acid Dean 1.3 mmol/L (0.7-2.0) 08/21/18 16:35 Calcium 10.1 mg/dL (8.4-10.2) 08/21/18 16:35 Total Bilirubin 0.3 mg/dL (0.2-1.3) 08/21/18 16:35 AST 26 U/L (17-59) 08/21/18 16:35 ALT 37 U/L (21-72) 08/21/18 16:35 Alkaline Phosphatase 64 U/L (38-126) 08/21/18 16:35 Total Protein 7.6 g/dL (6.3-8.2) 08/21/18 16:35 Albumin 4.4 g/dL (3.5-5.0) 08/21/18 16:35 CBC & Chem 7: 08/21/18 16:35 08/21/18 16:35 Labs: Abnormal Lab Results - Last 24 Hours (Table) 08/21/18 08/21/18 08/21/18 Range/Units 16:35 16:35 20:48 WBC 15.3 H (3.8-10.6) k/uL RBC 4.28 L (4.30-5.90) m/uL Hgb 10.3 L (13.0-17.5) gm/dL Hct 32.9 L (39.0-53.0) % MCV 76.8 L (80.0-100.0) fL MCH 24.0 L (25.0-35.0) pg Plt Count 497 H (150-450) k/uL Neutrophils # 10.5 H (1.3-7.7) k/uL Monocytes # 1.2 H (0-1.0) k/uL BUN 37 H (9-20) mg/dL Creatinine 1.30 H (0.66-1.25) mg/dL Glucose 133 H (74-99) mg/dL POC Glucose (mg/dL) 264 H (75-99) mg/dL 08/22/18 08/22/18 Range/Units 01:54 06:52 WBC (3.8-10.6) k/uL RBC (4.30-5.90) m/uL Hgb (13.0-17.5) gm/dL Hct (39.0-53.0) % MCV (80.0-100.0) fL MCH (25.0-35.0) pg Plt Count (150-450) k/uL Neutrophils # (1.3-7.7) k/uL Monocytes # (0-1.0) k/uL BUN (9-20) mg/dL Creatinine (0.66-1.25) mg/dL Glucose (74-99) mg/dL POC Glucose (mg/dL) 237 H 140 H (75-99) mg/dL Microbiology - Last 24 Hours (Table) 08/21/18 22:56 Gram Stain - Preliminary Foot - Right Wound Culture - Preliminary 08/21/18 22:56 Anaerobic Culture - Preliminary Heel - Right Assessment and Plan Plan: This is an 83-year-old male who presents for hospital with a diabetic ulcer to the right heel. He is currently on Levaquin and previous cultures r eveal that he has history of MRSA resistant to Levaquin. Daptomycin will be started as patient apparently has difficulty taking vancomycin. Hemoglobin A1c will be requested. Bone scan will be ordered to evaluate for possible osteomyelitis. Local wound care will be addressed. Continue supportive care. Further medications as patient progresses. The above dictated assessment and findings were discussed with Dr. Loza. The impression and plan of care have been directed as dictated. Jelly Oliver nurse practitioner acting as scribe for Dr. Loza.
[2018-08-22] MEDS: DAPTOmycin 500 MG in SODIUM CHLORIDE 0.9% 50 ML IVPB SCH (09:59)
[2018-08-22 10:06] LABS: Albumin 4.2 g/dL (3.5-5.0); Calcium 9.7 mg/dL (8.4-10.2); Potassium 5.2 mmol/L (3.5-5.1); Total Bilirubin 0.5 mg/dL (0.2-1.3); Total Protein 7.2 g/dL (6.3-8.2)
[2018-08-22 11:28] LABS: Glucose,Whole Blood 287 mg/dL (75-99)
[2018-08-22] MEDS: MULTIVITAMINS, THERA 1 EACH TAB PO SCH (12:37)
--- NOTE | 2018-08-22 15:20 | NM ---
EXAMINATION TYPE: NM bone 3 phase DATE OF EXAM: 08/22/2018 COMPARISON: 11/27/2017, x-ray 08/21/2018 HISTORY: Swelling Triple phase bone scintigraphy was performed following the injection of 23.1 mCi Tc 99m MDP. Immedia te images and 3.5 hours post injection images acquired. FINDINGS: There is asymmetric increased blood flow to the right heel. On blood pool images increased uptake involving the medial margin of the right heel, within the mid f oot on the right and involving the first and second digits. Delayed imaging demonstrates increased uptake involving the distal margin of the right second digit. This is an area of previous severe arthropathy which likely accounts for the finding. IMPRESSION: Findings compatible with cellulitis with no diagnostic evidence of osteomyelitis. Uptake seen involving the second PIP joint appears compatible with severe arthritic change on plain film x-r ay.
[2018-08-22 17:13] LABS: Glucose,Whole Blood 282 mg/dL (75-99)
[2018-08-22 20:16] LABS: Glucose,Whole Blood 284 mg/dL (75-99)
[2018-08-22 20:24] LABS: Hemoglobin A1C 9.2 % (4.0-6.0)
[2018-08-22] MEDS: MONTELUKAST 10 MG TAB PO SCH (21:53)
[2018-08-22] MEDS: ESCITALOPRAM 10 MG TAB PO SCH (21:54)
[2018-08-22] MEDS: INSULIN DETEMIR (LEVEMIR) 100 UNIT/ML SYR SQ SCH (22:00)
--- NOTE | 2018-08-23 00:23 | P.CON ---
Consult Note - . Consult date: 08/22/18 Assessment/Plan:: This is an 83-year-old male patient well known to ID service due to previous hospitalizations and chronic wounds to the lower extremities. Patient gives history that he obtain new shoes from right and folliculus and he was in [place] walking quite a bit and developed callus and then a wound to the right heel. He saw his coremaker floor yesterday, Dr. Coats and he was sent into [facility] emergency center for evaluation. He was found to be afebrile, white count 15.3, creatinine 1.3. Lactic acid 1.3. A foot x-ray showed no acute abnormality. No osteomyelitis. Small [place] metallic foreign body at the base of the big toe unchanged. Patient was started on Levaquin and admitted to the [facility] floor. 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 Regarding diabetes mellitus type 2, he states his blood sugars have been running high and he does not know his hemoglobin A1c.Please see the consult note as dictated by nurse practitioner Mrs. Jelly Oliver. 83-year-old male who has chronic medical noncompliance with utilization of offloading shoes. Patient now has the new pressure ulceration to the right plantar surface. Consequently presents to Hospital for further intervention.B one scan is available feeling to reveal evidence of osteomyelitis. Local wound care with the honey dressing is been requested. Being treated with daptomycin based on his prior difficulties. Once cultures are available will be to determine what our options are for antibiotic therapy in the home setting not clear if this will be oral or intravenous at this time. Patient's is present and we discussed at great length the importance of his diabetic shoes and inserts to offload his feet more appropriately and prevent further ulcerations. Improved glucose control is also very helpful. Patient remains very vague as a historian due to his multiple medical troubles over the years. I agree with evaluation, assessment and plan as dictated by nurse practitioner Mrs. Jelly Oliver.
[2018-08-23 03:13] LABS: Glucose,Whole Blood 235 mg/dL (75-99)
[2018-08-23 07:30] LABS: Glucose,Whole Blood 184 mg/dL (75-99)
[2018-08-23] MEDS: DAPTOmycin 500 MG in SODIUM CHLORIDE 0.9% 50 ML IVPB SCH (08:07)
[2018-08-23] MEDS: FUROSEMIDE 40 MG TAB PO SCH (08:08)
[2018-08-23] MEDS: ZINC SULFATE 220 MG CAP PO SCH (08:08)
[2018-08-23] MEDS: amLODIPine 10 MG TAB PO SCH (08:08)
[2018-08-23] MEDS: MULTIVITAMINS, THERA 1 EACH TAB PO SCH (08:08)
[2018-08-23] MEDS: SPIRONOLACTONE 25 MG TAB PO SCH ×2 (08:08→21:21)
[2018-08-23] MEDS: PANTOPRAZOLE 40 MG TABLET PO SCH (08:08)
[2018-08-23] MEDS: LISINOPRIL 5 MG TAB PO SCH (08:08)
[2018-08-23] MEDS: MAGNESIUM OXIDE 400 MG TAB PO SCH (08:08)
[2018-08-23] MEDS: ACETAMINOPHEN TAB 500 MG TAB PO SCH ×2 (08:08→21:19)
[2018-08-23] MEDS: INSULIN ASPART (NovoLOG) 100 UNIT/ML VIAL SQ SCH ×4 (08:09→22:20)
[2018-08-23] MEDS: SODIUM CHLORIDE 0.9% 1,000 ML IV SCH (08:14)
[2018-08-23] MEDS: IPRATROPIUM-ALBUTEROL 3 ML NEB INHALATION PRN ×3 (10:55→19:03)
[2018-08-23 11:22] VITALS: BMI 34.0
[2018-08-23 12:57] LABS: Glucose,Whole Blood 224 mg/dL (75-99)
--- NOTE | 2018-08-23 16:58 | P.HPIM ---
History of Present Illness H&P Date: 08/22/18 Chief Complaint: Diabetic ulcer right heel This is an 83-year-old patient well-known to my practice obviously well-known to the infectious disease service for chronic wound and the wound center. Mr. Carson is a pleasantly noncompliant 83-year-old male, who is been evaluated and treated for both his diabetes and chronic diabetic ulcers to bilateral lower extremes. Saw his dry starch operator on the , obtained new diabetic ulcers and was walking in [place] quite a bit developed a callus then a wound to the right heel, His dry starch operator suggested he present to the emergency room for an and treatment for a significant right foot right heel ulcer. On evaluation he was found to be afebrile white count was 15.3 creatinine 1.3 lactic acid 1.3 foot x-rays shows no acute abnormality no evidence of osteomyelitis. Small foreign body noted at the base of the great toe on the right unchanged from previous x-rays. Patient was started on Levaquin and admitted to the [facility] floor. 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 Appears have been running high as of late A1c performed in the office of was an 8.5 by believe the last time prior to leaving for [place]. Review of Systems Constitutional: Reports weakness Ears, nose, mouth and throat: Reports as per HPI Cardiovascular: Reports as per HPI, Reports decreased exercise tolerance, Reports dyspnea on exertion, Reports high blood pressure, Reports leg edema, Reports lightheadedness Respiratory: Reports as per HPI Gastrointestinal: Reports as per HPI Genitourinary: Reports as per HPI Musculoskeletal: Reports as per HPI Integumentary: Reports wounds (Ulcer right heel C wound care nurse's note for measurements) Neurological: Reports sensory deficit (Bilateral lower extremes secondary to noncompliant diabetes) Past Medical History Past Medical History: Atrial Fibrillation, Coronary Artery Disease (CAD), Cancer, Heart Failure, COPD, CVA/TIA, Diabetes Mellitus, Eye Disorder, GI Bleed, Hyperlipidemia, Hypertension, Myocardial Infarction ([place]), Osteoarthritis (OA), Prostate Disorder, Skin Disorder, Sleep Apnea/CPAP/BIPAP Additional Past Medical History / Comment(s): Anemia, blood and iron transfusions, right leg cellulitis, 2013 renal cancer with surgery - partial nephrectomy/spleenectomy/distal portion of pancreas removed at [facility] l, IDDM type II, TIA, [place] unknown date, BPH, gastritis, small hiatal hernia, past discitis T9-T10, arthritis bilateral hands/back, TARIQ - does not tolerate his CPAP, past R great toe ulcer/infection. Last Myocardial Infarction Date:: UNKNOWN History of Any Multi-Drug Resistant Organisms: MRSA Date of last positivie culture/infection: 08/21/18 MDRO Source:: FOOT Past Surgical History: Coronary Bypass/CABG, Heart Catheterization Additional Past Surgical History / Comment(s): Partial L nephrectomy, distal pancreatectomy, splenectomy - at [place], 2000 CABG - 3 vessel, EGD, colonoscopy, deviated septum surgery, skin/oral lesion removals, R carpal tunnel release, bilateral cataract removal, bilateral laser eye surgery for "leakage". Past Anesthesia/Blood Transfusion Reactions: Previous Problems w/ Anesthesia Additional Past Anesthesia/Blood Transfusion Reaction / Comment(s): 'TROUBLE COMING OUT OF ANESTHESIA' - DELUSIONAL. Patient has received blood in past without reaction. Past Psychological History: Anxiety, Depression Additional Psychological History / Comment(s): Pt resides with his spouse. He uses a cane or walker to ambulate. He no longer drives. His spouse drives and manages his medications. No current alcohol use. 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 No marijuana or illicit drug use. No alcohol use. Patient resides with his spouse. He uses a cane or walker to ambulate. He no longer drives. His pulse tries and manages his medications. 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 Past Drug Use History: None Reported - Past Family History Father Family Medical History: Myocardial Infarction ([place]) Mother Family Medical History: COPD Medications and Allergies Home Medications Medication Instructions Recorded Confirmed Type Insulin Detemir [Levemir Flextouch] 58 units SQ HS 12/21/14 08/21/18 History Montelukast [Singulair] 10 mg PO HS 12/21/14 08/21/18 History Insulin Aspart [NovoLOG Flexpen] 17 units SQ AC-TID 02/07/16 08/21/18 History Magnesium Oxide [Mag-Ox] 250 mg PO DAILY 02/07/16 08/21/18 History Pravastatin Sodium 40 mg PO HS 02/07/16 08/21/18 History Zinc 50 mg PO DAILY 02/07/16 08/21/18 History [place]-3 Fatty Acids/Fish Oil [Fish 1 cap PO DAILY 08/13/16 08/21/18 History Oil 1,000 mg Softgel] Acetaminophen Tab [Tylenol] 1,000 mg PO BID 03/17/17 08/21/18 History Pantoprazole [Protonix] 40 mg PO DAILY #30 tab 03/21/17 08/21/18 Rx Insulin Aspart [NovoLOG Flexpen] See Protocol SQ AC-TID PRN 11/12/17 08/21/18 History Budesonide-Formot 160-4.5 Mcg 2 puff INHALATION RT-BID 11/13/17 08/21/18 History [Symbicort 160-4.5 Mcg Inhaler] amLODIPine [Norvasc] 10 mg PO DAILY #30 tab 11/15/17 08/21/18 Rx Furosemide [Lasix] 40 mg PO DAILY 01/26/18 08/21/18 History Ipratropium-Albuterol Nebulize 3 ml INHALATION RT-TID 01/26/18 08/21/18 History [Duoneb 0.5 mg-3 mg/3 ml Soln] Lisinopril [Zestril] 5 mg PO QAM 01/26/18 08/21/18 History Spironolactone [Aldactone] 25 mg PO BID 01/26/18 08/21/18 History Escitalopram Oxalate [Lexapro] 10 mg PO HS 04/19/18 08/21/18 History Multivitamins, Thera [Multivitamin 1 tab PO DAILY 08/21/18 08/21/18 History (formulary)] Allergies Allergy/AdvReac Type Severity Reaction Status Date / Time Penicillins Allergy Unknown Rash/Hives Verified 08/21/18 16:52 atorvastatin calcium Allergy Unknown Verified 08/21/18 16:52 [From Lipitor] clonazepam [From Klonopin] Allergy Hallucinati Verified 08/21/18 16:52 ons codeine Allergy Hallucinati Verified 08/21/18 16:52 ons haloperidol [From Haldol] Allergy Hallucinati Verified 08/21/18 16:52 ons haloperidol lactate Allergy Hallucinati Verified 08/21/18 16:52 [From Haldol] ons hydromorphone HCl Allergy Hallucinati Verified 08/21/18 16:52 [From Dilaudid] ons methylphenidate HCl Allergy Hallucinati Verified 08/21/18 16:52 [From Ritalin] ons morphine Allergy Hallucinati Verified 08/21/18 16:52 ons propofol Allergy Hallucinati Verified 08/21/18 16:52 ons quetiapine fumarate Allergy Hallucinati Verified 08/21/18 16:52 [From Seroquel] ons Sulfa (Sulfonamide Allergy Unknown Verified 08/21/18 16:52 Antibiotics) vancomycin Allergy Unknown Verified 08/21/18 16:52 ativan AdvReac Unknown Uncoded 08/21/18 16:07 Physical Exam Osteopathic Statement: *. No significant issues noted on an osteopathic structural exam other than those noted in the History and Physical/Consult. Vitals: Vital Signs Temp Pulse Pulse Resp BP Pulse Ox 08/23/18 15:21 74 14 08/23/18 15:10 74 16 08/23/18 14:38 97.0 F L 72 16 130/56 98 08/23/18 11:07 70 08/23/18 10:55 72 08/23/18 05:21 98.0 F 75 20 127/59 94 L 08/22/18 22:19 98.2 F 83 20 114/45 93 L 08/22/18 20:53 76 08/22/18 20:40 74 08/22/18 16:53 68 Intake and Output 08/23/18 08/23/18 08/23/18 06:59 14:59 22:59 Intake Total 1370 Balance 1370 Intake: IV 650 DAPTOmycin 500 mg In 50 Sodium Chloride 0.9% 50 ml @ 100 mls/hr IVPB Q24H [facility] Rx#:[id number] Sodium Chloride 0.9% 1, 600 000 ml @ 75 mls/hr IV . [id number] [facility] Rx#:[id number] Oral 720 Other: # Voids 3 Weight 104.6 kg 104.6 kg General: [Patient awake, alert and oriented times 3. Patient in no acute distress.] HEENT: [PERRL. EOMI. No pharyngeal erythema or exudate.] Neck: [No adenopathy.] Cardiac: [Heart regular in rate and rhythm. No S3. No S4. No clicks, rubs. No murmur. Midline surgical scar secondary to open heart surgery Lungs: [Clear to auscultation bilaterally.] Abdomen: [No mass. No organomegaly. Bowel sounds presnt and normoactive in all 4 quadrants.] Extremes: [No edema no cyanosis no claudication normal pulses] ulcer right foot heel, see measurements infectious disease nurse practitioner's note : [] Musculoskeletal: [No joint erythema, edema or tenderness.] Skin: [No rash.] Neurologic: [No lateralizing deficits. CN II - XII grossly intact.] Lymphatic: [No adenopathy.] Results CBC & Chem 7: 08/22/18 09:02 08/22/18 09:02 Labs: Abnormal Lab Results - Last 24 Hours (Table) 08/22/18 08/22/18 08/22/18 Range/Units 09:02 17:08 20:15 POC Glucose (mg/dL) 282 H 284 H (75-99) mg/dL Hemoglobin A1c 9.2 H (4.0-6.0) % 08/23/18 08/23/18 08/23/18 Range/Units 03:11 07:07 12:34 POC Glucose (mg/dL) 235 H 184 H 224 H (75-99) mg/dL Hemoglobin A1c (4.0-6.0) % Microbiology - Last 24 Hours (Table) 08/21/18 22:56 Gram Stain - Preliminary Foot - Right Wound Culture - Preliminary Presumptive MRSA 08/21/18 16:35 Blood Culture - Preliminary Blood No Growth after 24 hours Thrombosis Risk Factor Assmnt - Choose All That Apply Any of the Below Risk Factors Present?: Yes Each Factor Represents 1 point: Obesity (BMI >25) Other Risk Factors: Yes Each Risk Factor Represents 3 Points: Age 75 years or older Thrombosis Risk Factor Assessment Total Risk Factor Score: 4 Thrombosis Risk Factor Assessment Level: Moderate Risk Assessment and Plan (1) Diabetic foot ulcer Current Visit: Yes Status: Acute Code(s): E11.621 - TYPE 2 DIABETES MELLITUS WITH FOOT ULCER; L97.509 - NON-PRESSURE CHRONIC ULCER OTH PRT UNSP FOOT W UNSP SEVERITY SNOMED Code(s): 684460515 (2) Infection of right foot Current Visit: Yes Status: Acute Code(s): L08.9 - LOCAL INFECTION OF THE SKIN AND SUBCUTANEOUS TISSUE, UNSP SNOMED Code(s): 928851217 (3) Leukocytosis Current Visit: Yes Status: Acute Code(s): D72.829 - ELEVATED WHITE BLOOD CELL COUNT, UNSPECIFIED SNOMED Code(s): 320317231 (4) Atrial fibrillation Current Visit: No Status: Acute Code(s): I48.91 - UNSPECIFIED ATRIAL FIBRILLATION SNOMED Code(s): 35953365 (5) CHF (congestive heart failure) Current Visit: No Status: Acute Code(s): I50.9 - HEART FAILURE, UNSPECIFIED SNOMED Code(s): 33084841 (6) Diabetes mellitus Current Visit: No Status: Acute Code(s): E11.9 - TYPE 2 DIABETES MELLITUS WITHOUT COMPLICATIONS SNOMED Code(s): 46797775 (7) Diabetic toe ulcer Current Visit: No Status: Acute Code(s): E11.621 - TYPE 2 DIABETES MELLITUS WITH FOOT ULCER; L97.509 - NON-PRESSURE CHRONIC ULCER OTH PRT UNSP FOOT W UNSP SEVERITY SNOMED Code(s): 34494487 Plan: Optimize diabetic control IV antibiotic therapy Optimize wound care Consultation with infectious disease known methicillin-resistant staph Awaiting culture report Time with Patient: Greater than 30
--- NOTE | 2018-08-23 17:07 | P.PN ---
Subjective Progress Note Date: 08/23/18 Principal diagnosis: Diabetic ulcer right heel Patient has undergone x-ray which is unremarkable for osteomyelitis, 3-phase bone scan which was performed this morning unremarkable for osteomyelitis Patient is known methicillin-resistant staph by history and current culture sug gests presumptive for methicillin-resistant staph infection of the right heel B patient has slightly elevated BUN/creatinine creatinine, and ALLERGY to sulfa, anticipate requiring home IV antibiotic therapy awaiting Dr. Loza recommendations Objective - Vital Signs Vital signs: Vital Signs Temp 97.0 F L 08/23/18 14:38 Pulse 74 08/23/18 15:21 Resp 14 08/23/18 15:21 BP 130/56 08/23/18 14:38 Pulse Ox 98 08/23/18 14:38 Intake & Output 08/22/18 08/23/18 08/23/18 18:59 06:59 18:59 Intake Total 240 1370 Balance 240 1370 Weight 105.097 kg 104.6 kg 104.6 kg Intake: IV 650 DAPTOmycin 500 mg In 50 Sodium Chloride 0.9% 50 ml @ 100 mls/hr IVPB Q24H [facility] Rx#:[id number] Sodium Chloride 0.9% 1, 600 000 ml @ 75 mls/hr IV . [id number] [facility] Rx#:[id number] Oral 240 720 Other: Voiding Method Toilet # Voids 3 3 - Exam General: [Patient awake, alert and oriented times 3. Patient in no acute distress.] HEENT: [PERRL. EOMI. No pharyngeal erythema or exudate.] Neck: [No adenopathy.] Cardiac: [Heart regular in rate and rhythm. No S3. No S4. No clicks, rubs. No murmur. Midline surgical scar secondary to open heart surgery Lungs: [Clear to auscultation bilaterally.] Abdomen: [No mass. No organomegaly. Bowel sounds presnt and normoactive in all 4 quadrants.] Extremes: Diabetic ulcer right heel note recent measurements in chart : [] Musculoskeletal: [No joint erythema, edema or tenderness.] Skin: [No rash.] Neurologic: [No lateralizing deficits. CN II - XII grossly intact.] Lymphatic: [No adenopathy.] - Labs CBC & Chem 7: 08/22/18 09:02 04/03/19 09:02 Labs: Abnormal Lab Results - Last 24 Hours (Table) 08/22/18 08/22/18 08/22/18 Range/Units 09:02 17:08 20:15 POC Glucose (mg/dL) 282 H 284 H (75-99) mg/dL Hemoglobin A1c 9.2 H (4.0-6.0) % 08/23/18 08/23/18 08/23/18 Range/Units 03:11 07:07 12:34 POC Glucose (mg/dL) 235 H 184 H 224 H (75-99) mg/dL Hemoglobin A1c (4.0-6.0) % Microbiology - Last 24 Hours (Table) 08/21/18 22:56 Gram Stain - Preliminary Foot - Right Wound Culture - Preliminary Presumptive MRSA 08/21/18 16:35 Blood Culture - Preliminary Blood No Growth after 24 hours Assessment and Plan (1) Diabetic foot ulcer Current Visit: Yes Status: Acute Code(s): E11.621 - TYPE 2 DIABETES MELLITUS WITH FOOT ULCER; L97.509 - NON-PRESSURE CHRONIC ULCER OTH PRT UNSP FOOT W UNSP SEVERITY SNOMED Code(s): 873755054 (2) Infection of right foot Current Visit: Yes Status: Acute Code(s): L08.9 - LOCAL INFECTION OF THE SKIN AND SUBCUTANEOUS TISSUE, UNSP SNOMED Code(s): 210370727 (3) Leukocytosis Current Visit: Yes Status: Acute Code(s): D72.829 - ELEVATED WHITE BLOOD CELL COUNT, UNSPECIFIED SNOMED Code(s): 965821760 (4) Atrial fibrillation Current Visit: No Status: Acute Code(s): I48.91 - UNSPECIFIED ATRIAL FIBRILLATION SNOMED Code(s): 70755007 (5) CHF (congestive heart failure) Current Visit: No Status: Acute Code(s): I50.9 - HEART FAILURE, UNSPECIFIED SNOMED Code(s): 51686761 (6) Diabetes mellitus Current Visit: No Status: Acute Code(s): E11.9 - TYPE 2 DIABETES MELLITUS WITHOUT COMPLICATIONS SNOMED Code(s): 88760716 (7) Diabetic toe ulcer Current Visit: No Status: Acute Code(s): E11.621 - TYPE 2 DIABETES MELLITUS WITH FOOT ULCER; L97.509 - NON-PRESSURE CHRONIC ULCER OTH PRT UNSP FOOT W UNSP SEVERITY SNOMED Code(s): 47271894 Plan: Optimize diabetic control IV antibiotic therapy Optimize wound care Consultation with infectious disease known methicillin-resistant staph culture report, presumptive methicillin-resistant staph, patient currently on daptomycin IV awaiting recommendations from infectious disease anticipate discharge home in the next 24-48 hours Time with Patient: Greater than 30
[2018-08-23 17:38] LABS: Glucose,Whole Blood 310 mg/dL (75-99)
[2018-08-23] MEDS ORDERED: LEVOFLOXACIN 750MG-D5W PMX 750 MG in DEXTROSE/WATER 1 150ML.BAG IVPB SCH (18:00)
[2018-08-23 21:05] LABS: Glucose,Whole Blood 255 mg/dL (75-99)
[2018-08-23] MEDS: ESCITALOPRAM 10 MG TAB PO SCH (21:20)
[2018-08-23] MEDS: MONTELUKAST 10 MG TAB PO SCH (21:21)
[2018-08-23] MEDS: INSULIN DETEMIR (LEVEMIR) 100 UNIT/ML SYR SQ SCH (22:19)
[2018-08-24 03:16] LABS: Glucose,Whole Blood 180 mg/dL (75-99)
[2018-08-24] MEDS: SODIUM CHLORIDE 0.9% 1,000 ML IV SCH ×2 (05:47→12:35)
[2018-08-24 07:00] LABS: Glucose,Whole Blood 174 mg/dL (75-99)
[2018-08-24] MEDS: INSULIN ASPART (NovoLOG) 100 UNIT/ML VIAL SQ SCH ×4 (08:03→22:38)
[2018-08-24] MEDS: DAPTOmycin 500 MG in SODIUM CHLORIDE 0.9% 50 ML IVPB SCH (08:04)
[2018-08-24] MEDS: SPIRONOLACTONE 25 MG TAB PO SCH ×2 (09:59→20:52)
[2018-08-24] MEDS: FUROSEMIDE 40 MG TAB PO SCH (09:59)
[2018-08-24] MEDS: amLODIPine 10 MG TAB PO SCH (09:59)
[2018-08-24] MEDS: ZINC SULFATE 220 MG CAP PO SCH (09:59)
[2018-08-24] MEDS: ACETAMINOPHEN TAB 500 MG TAB PO SCH ×2 (09:59→20:51)
[2018-08-24] MEDS: LISINOPRIL 5 MG TAB PO SCH (09:59)
[2018-08-24] MEDS: PANTOPRAZOLE 40 MG TABLET PO SCH (09:59)
[2018-08-24] MEDS: MAGNESIUM OXIDE 400 MG TAB PO SCH (10:15)
[2018-08-24] MEDS: MULTIVITAMINS, THERA 1 EACH TAB PO SCH (10:42)
[2018-08-24] MEDS: IPRATROPIUM-ALBUTEROL 3 ML NEB INHALATION PRN ×2 (11:01→19:45)
[2018-08-24 12:08] LABS: Glucose,Whole Blood 205 mg/dL (75-99)
[2018-08-24 16:50] LABS: Glucose,Whole Blood 216 mg/dL (75-99)
--- NOTE | 2018-08-24 18:07 | P.PN ---
Subjective Progress Note Date: 08/24/18 Principal diagnosis: Diabetic ulcer right heel Patient has undergone x-ray which is unremarkable for osteomyelitis, 3-phase bone scan which was performed this morning unremarkable for osteomyelitis Patient is known methicillin-resistant staph by history and current culture sug gests presumptive for methicillin-resistant staph infection of the right heel B patient has slightly elevated BUN/creatinine creatinine, and ALLERGY to sulfa, anticipate requiring home IV antibiotic therapy awaiting Dr. Loza recommendations Objective - Vital Signs Vital signs: Vital Signs Temp 97.3 F L 08/24/18 13:33 Pulse 85 08/24/18 13:33 Resp 18 08/24/18 13:33 BP 147/78 08/24/18 13:33 Pulse Ox 94 L 08/24/18 13:33 Intake & Output 08/23/18 08/24/18 08/24/18 18:59 06:59 18:59 Intake Total 1370 1050 Balance 1370 1050 Weight 104.6 kg Intake: IV 650 650 DAPTOmycin 500 mg In 50 50 Sodium Chloride 0.9% 50 ml @ 100 mls/hr IVPB Q24H [facility] Rx#:[id number] Sodium Chloride 0.9% 1, 600 600 000 ml @ 75 mls/hr IV . [id number] [facility] Rx#:[id number] Oral 720 400 Other: Voiding Method Toilet # Voids 2 1 - Exam General: [Patient awake, alert and oriented times 3. Patient in no acute dis tress.] HEENT: [PERRL. EOMI. No pharyngeal erythema or exudate.] Neck: [No adenopathy.] Cardiac: [Heart regular in rate and rhythm. No S3. No S4. No clicks, rubs. No murmur. Midline surgical scar secondary to open heart surgery Lungs: [Clear to auscultation bilaterally.] Abdomen: [No mass. No organomegaly. Bowel sounds presnt and normoactive in all 4 quadrants.] Extremes: Diabetic ulcer right heel note recent measurements in chart : [] Musculoskeletal: [No joint erythema, edema or tenderness.] Skin: [No rash.] Neurologic: [No lateralizing deficits. CN II - XII grossly intact.] Lymphatic: [No adenopathy.] - Labs CBC & Chem 7: 08/22/18 09:02 08/22/18 09:02 Labs: Abnormal Lab Results - Last 24 Hours (Table) 08/23/18 08/24/18 08/24/18 Range/Units 21:04 03:14 06:48 POC Glucose (mg/dL) 255 H 180 H 174 H (75-99) mg/dL 08/24/18 08/24/18 Range/Units 12:06 16:47 POC Glucose (mg/dL) 205 H 216 H (75-99) mg/dL Microbiology - Last 24 Hours (Table) 08/21/18 22:56 Anaerobic Culture - Preliminary Heel - Right 08/21/18 16:35 Blood Culture - Preliminary Blood No Growth after 48 hours 08/21/18 22:56 Gram Stain - Final Foot - Right Wound Culture - Final Methicillin resist S. aureus Assessment and Plan (1) Diabetic foot ulcer Current Visit: Yes Status: Acute Code(s): E11.621 - TYPE 2 DIABETES MELLITUS WITH FOOT ULCER; L97.509 - NON-PRESSURE CHRONIC ULCER OTH PRT UNSP FOOT W UNSP SEVERITY SNOMED Code(s): 773770377 (2) Infection of right foot Current Visit: Yes Status: Acute Code(s): L08.9 - LOCAL INFECTION OF THE SKIN AND SUBCUTANEOUS TISSUE, UNSP SNOMED Code(s): 286994870 (3) Leukocytosis Current Visit: Yes Status: Acute Code(s): D72.829 - ELEVATED WHITE BLOOD CELL COUNT, UNSPECIFIED SNOMED Code(s): 857576974 (4) Atrial fibrillation Current Visit: No Status: Acute Code(s): I48.91 - UNSPECIFIED ATRIAL FIBRILLATION SNOMED Code(s): 16129561 (5) CHF (congestive heart failure) Current Visit: No Status: Acute Code(s): I50.9 - HEART FAILURE, UNSPECIFIED SNOMED Code(s): 32897092 (6) Diabetes mellitus Current Visit: No Status: Acute Code(s): E11.9 - TYPE 2 DIABETES MELLITUS WITHOUT COMPLICATIONS SNOMED Code(s): 49177967 (7) Diabetic toe ulcer Current Visit: No Status: Acute Code(s): E11.621 - TYPE 2 DIABETES MELLITUS WITH FOOT ULCER; L97.509 - NON-PRESSURE CHRONIC ULCER OTH PRT UNSP FOOT W UNSP SEVERITY SNOMED Code(s): 85628254 Plan: Optimize diabetic control IV antibiotic therapy Optimize wound care Consultation with infectious disease known methicillin-resistant staph Presumption is that this particular methicillin-resistant bacteria is also resistant to Levaquin as it was Levaquin resistant the last time patient is ALLERGIC to sulfa culture report, presumptive methicillin-resistant staph, patient currently on daptomycin IV awaiting recommendations from infectious disease anticipate discharge home in the next 24-48 hours Time with Patient: Greater than 30
[2018-08-24 20:50] LABS: Glucose,Whole Blood 238 mg/dL (75-99)
[2018-08-24] MEDS: MONTELUKAST 10 MG TAB PO SCH (20:52)
[2018-08-24] MEDS: ESCITALOPRAM 10 MG TAB PO SCH (20:52)
[2018-08-24 20:57] LABS: Basophils # (A) 0.1 k/uL (0-0.2); Basophils % (A) 1 %; Eosinophils # (A) 0.6 k/uL (0-0.7); Eosinophils % (A) 3 %; HCT 31.3 % (39.0-53.0); HGB 10.2 gm/dL (13.0-17.5); Hypochromasia Moderate; Lymphocytes % (A) 17 %; MCH 24.5 pg (25.0-35.0); MCHC 32.4 g/dL (31.0-37.0); MCV 75.7 fL (80.0-100.0); Mean Platelet Volume 9.1; Microcytosis Slight; Monocytes # (A) 1.2 k/uL (0-1.0); Monocytes % (A) 7 %; Neutrophils # (A) 12.2 k/uL (1.3-7.7); Neutrophils % (A) 70 %; Platelet Count 474 k/uL (150-450); RBC 4.14 m/uL (4.30-5.90); RDW 15.4 % (11.5-15.5); WBC 17.4 k/uL (3.8-10.6)
[2018-08-24 21:09] VITALS: RESP 16
[2018-08-24 21:25] LABS: Albumin 4.1 g/dL (3.5-5.0); Calcium 9.6 mg/dL (8.4-10.2); Potassium 4.6 mmol/L (3.5-5.1); Total Bilirubin 0.2 mg/dL (0.2-1.3); Total Protein 7.1 g/dL (6.3-8.2)
[2018-08-24] MEDS: INSULIN DETEMIR (LEVEMIR) 100 UNIT/ML SYR SQ SCH (22:39)
--- NOTE | 2018-08-24 23:56 | P.PN ---
Subjective Progress Note Date: 08/24/18 This is an 83-year-old male patient well known to ID service due to previous hospitalizations and chronic wounds to the lower extremities. Patient gives history that he obtain new shoes from right and folliculus and he was in [place] walking quite a bit and developed callus and then a wound to the right heel. He saw his linux network systems administrator yesterday, Dr. Coats and he was sent into [facility] emergency center for evaluation. He was found to be afebrile, white count 15.3, creatinine 1.3. Lactic acid 1.3. A foot x-ray showed no acute abnormality. No osteomyelitis. Small [place] metallic foreign body at the base of the big toe unchanged. Patient was started on Levaquin and admitted to the [facility] floor. 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 Regarding diabetes mellitus type 2, he states his blood sugars have been running high and he does not know his hemoglobin A1c. 08/24/2018 patient is feeling better today. He does have difficulties mentally since prior illness and this was anxious to go home. The case is discussed with the primary care physician. Patient is feeling better. We discussed the ulceration to the right foot plantar. He relates he can feel and does not understand why it's a problem. The daughter is present. We do try to discuss neuropathy results in him not feeling the ulceration but does not make it any less important. Objective - Vital Signs Vital signs: Vital Signs Temp 97.3 F L 08/24/18 13:33 Pulse 61 08/24/18 20:55 Resp 16 08/24/18 20:55 BP 139/61 08/24/18 20:55 Pulse Ox 100 08/24/18 20:55 Intake & Output 08/24/18 08/24/18 08/25/18 06:59 18:59 06:59 Intake Total 1050 Balance 1050 Intake: IV 650 DAPTOmycin 500 mg In 50 Sodium Chloride 0.9% 50 ml @ 100 mls/hr IVPB Q24H [facility] Rx#:[id number] Sodium Chloride 0.9% 1, 600 000 ml @ 75 mls/hr IV . [id number] [facility] Rx#:[id number] Oral 400 Other: Voiding Method Toilet Toilet # Voids 2 1 1 - Exam en: This is an 83-year-old male. Patient is resting on the edge of the bed and appears to be comfortable and in no acute distress. HEENT: Head is atraumatic, normocephalic. Pupils equal, round. Sclerae is anicteric. Conjunctiva pink. Mucous members of the mouth are moist. NECK: Supple. No JVD. No lymphadenopathy. No thyromegaly. LUNGS: Clear to auscultation. No wheezes or rhonchi. No intercostal retractions. HEART: Regular rate and rhythm. No murmur. ABDOMEN: Soft. Bowel sounds are present. No masses. No tenderness. EXTREMITIES: Dorsalis pedis +[address] to the right he was not removed for evaluation deferred to Dr. Loza. NEUROLOGICAL: Patient is awake, alert and oriented x2. - Labs CBC & Chem 7: 08/24/18 20:43 08/24/18 20:43 Labs: Abnormal Lab Results - Last 24 Hours (Table) 08/24/18 08/24/18 08/24/18 Range/Units 03:14 06:48 12:06 WBC (3.8-10.6) k/uL RBC (4.30-5.90) m/uL Hgb (13.0-17.5) gm/dL Hct (39.0-53.0) % MCV (80.0-100.0) fL MCH (25.0-35.0) pg Plt Count (150-450) k/uL Neutrophils # (1.3-7.7) k/uL Monocytes # (0-1.0) k/uL Sodium (137-145) mmol/L Chloride (98-107) mmol/L BUN (9-20) mg/dL Glucose (74-99) mg/dL POC Glucose (mg/dL) 180 H 174 H 205 H (75-99) mg/dL 08/24/18 08/24/18 08/24/18 Range/Units 16:47 20:40 20:43 WBC 17.4 H (3.8-10.6) k/uL RBC 4.14 L (4.30-5.90) m/uL Hgb 10.2 L (13.0-17.5) gm/dL Hct 31.3 L (39.0-53.0) % MCV 75.7 L (80.0-100.0) fL MCH 24.5 L (25.0-35.0) pg Plt Count 474 H (150-450) k/uL Neutrophils # 12.2 H (1.3-7.7) k/uL Monocytes # 1.2 H (0-1.0) k/uL Sodium (137-145) mmol/L Chloride (98-107) mmol/L BUN (9-20) mg/dL Glucose (74-99) mg/dL POC Glucose (mg/dL) 216 H 238 H (75-99) mg/dL 08/24/18 Range/Units 20:43 WBC (3.8-10.6) k/uL RBC (4.30-5.90) m/uL Hgb (13.0-17.5) gm/dL Hct (39.0-53.0) % MCV (80.0-100.0) fL MCH (25.0-35.0) pg Plt Count (150-450) k/uL Neutrophils # (1.3-7.7) k/uL Monocytes # (0-1.0) k/uL Sodium 135 L (137-145) mmol/L Chloride 97 L (98-107) mmol/L BUN 28 H (9-20) mg/dL Glucose 240 H (74-99) mg/dL POC Glucose (mg/dL) (75-99) mg/dL Microbiology - Last 24 Hours (Table) 08/21/18 16:35 Blood Culture - Preliminary Blood No Growth after 72 hours 08/21/18 22:56 Anaerobic Culture - Preliminary Heel - Right Laboratory Results WBC 17.4 k/uL (3.8-10.6) H 08/24/18 20:43 RBC 4.14 m/uL (4.30-5.90) L 08/24/18 20:43 Hgb 10.2 gm/dL (13.0-17.5) L 08/24/18 20:43 Hct 31.3 % (39.0-53.0) L 08/24/18 20:43 MCV 75.7 fL (80.0-100.0) L 08/24/18 20:43 MCH 24.5 pg (25.0-35.0) L 08/24/18 20:43 MCHC 32.4 g/dL (31.0-37.0) 08/24/18 20:43 RDW 15.4 % (11.5-15.5) 08/24/18 20:43 Plt Count 474 k/uL (150-450) H 08/24/18 20:43 Neutrophils % 70 % 08/24/18 20:43 Lymphocytes % 17 % 08/24/18 20:43 Monocytes % 7 % 08/24/18 20:43 Eosinophils % 3 % 08/24/18 20:43 Basophils % 1 % 08/24/18 20:43 Neutrophils # 12.2 k/uL (1.3-7.7) H 08/24/18 20:43 Lymphocytes # 3.0 k/uL (1.0-4.8) 08/24/18 20:43 Monocytes # 1.2 k/uL (0-1.0) H 08/24/18 20:43 Eosinophils # 0.6 k/uL (0-0.7) 08/24/18 20:43 Basophils # 0.1 k/uL (0-0.2) 08/24/18 20:43 Hypochromasia Moderate 08/24/18 20:43 Poikilocytosis Slight 08/22/18 09:02 Microcytosis Slight 08/24/18 20:43 Sodium 135 mmol/L (137-145) L 08/24/18 20:43 Potassium 4.6 mmol/L (3.5-5.1) 08/24/18 20:43 Chloride 97 mmol/L (98-107) L 08/24/18 20:43 Carbon Dioxide 26 mmol/L (22-30) 08/24/18 20:43 Anion Gap 12 mmol/L 08/24/18 20:43 BUN 28 mg/dL (9-20) H 08/24/18 20:43 Creatinine 1.22 mg/dL (0.66-1.25) 08/24/18 20:43 Est GFR (CKD-EPI)AfAm 64 (>60 ml/min/1.73 sqM) 08/24/18 20:43 Est GFR (CKD-EPI)NonAf 56 (>60 ml/min/1.73 sqM) 08/24/18 20:43 Glucose 240 mg/dL (74-99) H 08/24/18 20:43 POC Glucose (mg/dL) 238 mg/dL (75-99) H 08/24/18 20:40 POC Glu Embroidery Operator ID Natalia Thompson 08/24/18 20:[address] Glu mg/dL 217 08/22/18 09:02 Hemoglobin A1c 9.2 % (4.0-6.0) H 08/22/18 09:02 Plasma Lactic Acid Dean 1.3 mmol/L (0.7-2.0) 08/21/18 16:35 Calcium 9.6 mg/dL (8.4-10.2) 08/24/18 20:43 Total Bilirubin 0.2 mg/dL (0.2-1.3) 08/24/18 20:43 AST 25 U/L (17-59) 08/24/18 20:43 ALT 29 U/L (21-72) 08/24/18 20:43 Alkaline Phosphatase 61 U/L (38-126) 08/24/18 20:43 Total Protein 7.1 g/dL (6.3-8.2) 08/24/18 20:43 Albumin 4.1 g/dL (3.5-5.0) 08/24/18 20:43 Microbiology 08/21/18 16:35 Blood Blood Culture - Preliminary No Growth after 72 hours 08/21/18 22:56 Heel - Right Anaerobic Culture - Preliminary 08/21/18 22:56 Foot - Right Gram Stain - Final 08/21/18 22:56 Foot - Right Wound Culture - Final Methicillin resist S. aureus Assessment and Plan (1) Diabetic foot ulcer Narrative/Plan: 08/24/2018 83-year-old male presents to hospital with difficulties with the right lower extremity. Thought evidence of a diabetic foot ulceration. Workup has now been proceeding and there is no evidence of underlying osteomyelitis. Local wound care will continue with the medical honey product. Offloading is requested but patient and daughter seem to have great difficulty understanding the importance of offloading with his diabetic shoes. We have asked for him to take the shoes back to the home health clinician to ensure that they fit him well. Patient likely related for discharge in the morning which prevent him doxycycline 100 mg orally twice per day can be given. Would be happy to see him in the wound healing center for local wound care and evaluations. Current Visit: Yes Status: Acute Code(s): E11.621 - TYPE 2 DIABETES MELLITUS WITH FOOT ULCER; L97.509 - NON-PRESSURE CHRONIC ULCER OTH PRT UNSP FOOT W UNSP SEVERITY SNOMED Code(s): 326371162
[2018-08-25 02:26] LABS: Glucose,Whole Blood 205 mg/dL (75-99)
[2018-08-25] MEDS: SODIUM CHLORIDE 0.9% 1,000 ML IV SCH (04:21)
[2018-08-25 05:52] VITALS: BP 143/79; TEMP 97.8
[2018-08-25 07:16] LABS: Glucose,Whole Blood 200 mg/dL (75-99)
[2018-08-25] MEDS: INSULIN ASPART (NovoLOG) 100 UNIT/ML VIAL SQ SCH ×2 (07:46→11:56)
[2018-08-25] MEDS: ACETAMINOPHEN TAB 500 MG TAB PO SCH (07:47)
[2018-08-25] MEDS: SPIRONOLACTONE 25 MG TAB PO SCH (07:48)
[2018-08-25] MEDS: FUROSEMIDE 40 MG TAB PO SCH (07:48)
[2018-08-25] MEDS: LISINOPRIL 5 MG TAB PO SCH (07:48)
[2018-08-25] MEDS: MAGNESIUM OXIDE 400 MG TAB PO SCH (07:48)
[2018-08-25] MEDS: PANTOPRAZOLE 40 MG TABLET PO SCH (07:48)
[2018-08-25] MEDS: amLODIPine 10 MG TAB PO SCH (07:48)
[2018-08-25] MEDS: DAPTOmycin 500 MG in SODIUM CHLORIDE 0.9% 50 ML IVPB SCH (07:49)
[2018-08-25] MEDS: ZINC SULFATE 220 MG CAP PO SCH (07:59)
[2018-08-25] MEDS: IPRATROPIUM-ALBUTEROL 3 ML NEB INHALATION PRN ×2 (08:32→12:42)
[2018-08-25] MEDS: MULTIVITAMINS, THERA 1 EACH TAB PO SCH (11:56)
[2018-08-25 11:58] LABS: Glucose,Whole Blood 365 mg/dL (75-99)
--- NOTE | 2018-08-25 12:24 | P.DS ---
Providers Date of admission: 08/24/18 14:47 Expected date of discharge: 08/25/18 Attending physician: Luis Quesada Consults: 08/21/18 18:15 Consult Physician Routine Consulting Provider: Rupert Loza Consult Reason/Comments: established patient with right foot infection Do you want consulting provider notified?: Yes Primary care physician: Luis Quesada - Discharge Diagnosis(es) (1) Diabetic foot ulcer General: [Patient awake, alert and oriented times 3. Patient in no acute distress.] HEENT: [PERRL. EOMI. No pharyngeal erythema or exudate.] Neck: [No adenopathy.] Cardiac: [Heart regular in rate and rhythm. No S3. No S4. No clicks, rubs. No murmur. Midline surgical scar Lungs: [Clear to auscultation bilaterally.] Abdomen: [No mass. No organomegaly. Bowel sounds presnt and normoactive in all 4 quadrants.] Extremes: Wound right heel Do's grade 3, see nurse's note for measurements and description : [] Musculoskeletal: [No joint erythema, edema or tenderness.] Skin: [No rash.] Neurologic: [No lateralizing deficits. CN II - XII grossly intact.] Lymphatic: [No adenopathy.] Current Visit: Yes Status: Acute (2) Infection of right foot Current Visit: Yes Status: Acute (3) Leukocytosis Current Visit: Yes Status: Acute (4) Atrial fibrillation Current Visit: No Status: Acute (5) CHF (congestive heart failure) Current Visit: No Status: Acute (6) Diabetes mellitus Current Visit: No Status: Acute (7) Diabetic toe ulcer Current Visit: No Status: Acute Hospital Course: Wound care daily IV antibiotics daily diabetic diet Patient Condition at Discharge: Stable Plan - Discharge Summary New Discharge Prescriptions: New Doxycycline Monohydrate [Monodox] 100 mg PO DAILY #20 cap No Action Montelukast [Singulair] 10 mg PO HS Insulin Detemir [Levemir Flextouch] 58 units SQ HS Zinc 50 mg PO DAILY Pravastatin Sodium 40 mg PO HS Magnesium Oxide [Mag-Ox] 250 mg PO DAILY Insulin Aspart [NovoLOG Flexpen] 17 units SQ AC-TID [place]-3 Fatty Acids/Fish Oil [Fish Oil 1,000 mg Softgel] 1 cap PO DAILY Acetaminophen Tab [Tylenol] 1,000 mg PO BID Pantoprazole [Protonix] 40 mg PO DAILY #30 tab Insulin Aspart [NovoLOG Flexpen] See Protocol SQ AC-TID PRN PRN Reason: Blood Sugar - High Budesonide-Formot 160-4.5 Mcg [Symbicort 160-4.5 Mcg Inhaler] 2 puff INHALATION RT-BID amLODIPine [Norvasc] 10 mg PO DAILY #30 tab Lisinopril [Zestril] 5 mg PO QAM Furosemide [Lasix] 40 mg PO DAILY Spironolactone [Aldactone] 25 mg PO BID Ipratropium-Albuterol Nebulize [Duoneb 0.5 mg-3 mg/3 ml Soln] 3 ml INHALATION RT-TID Escitalopram Oxalate [Lexapro] 10 mg PO HS Multivitamins, Thera [Multivitamin (formulary)] 1 tab PO DAILY Discharge Medication List Insulin Detemir [Levemir Flextouch] 58 units SQ HS 12/21/14 [History] Montelukast [Singulair] 10 mg PO HS 12/21/14 [History] Insulin Aspart [NovoLOG Flexpen] 17 units SQ AC-TID 02/07/16 [History] Magnesium Oxide [Mag-Ox] 250 mg PO DAILY 02/07/16 [History] Pravastatin Sodium 40 mg PO HS 02/07/16 [History] Zinc 50 mg PO DAILY 02/07/16 [History] [place]-3 Fatty Acids/Fish Oil [Fish Oil 1,000 mg Softgel] 1 cap PO DAILY 08/13/16 [History] Acetaminophen Tab [Tylenol] 1,000 mg PO BID 03/17/17 [History] Pantoprazole [Protonix] 40 mg PO DAILY #30 tab 03/21/17 [Rx] Insulin Aspart [NovoLOG Flexpen] See Protocol SQ AC-TID PRN 11/12/17 [History] Budesonide-Formot 160-4.5 Mcg [Symbicort 160-4.5 Mcg Inhaler] 2 puff INHALATION RT-BID 11/13/17 [History] amLODIPine [Norvasc] 10 mg PO DAILY #30 tab 11/15/17 [Rx] Furosemide [Lasix] 40 mg PO DAILY 01/26/18 [History] Ipratropium-Albuterol Nebulize [Duoneb 0.5 mg-3 mg/3 ml Soln] 3 ml INHALATION RT-TID 01/26/18 [History] Lisinopril [Zestril] 5 mg PO QAM 01/26/18 [History] Spironolactone [Aldactone] 25 mg PO BID 01/26/18 [History] Escitalopram Oxalate [Lexapro] 10 mg PO HS 04/19/18 [History] Multivitamins, Thera [Multivitamin (formulary)] 1 tab PO DAILY 08/21/18 [History] Doxycycline Monohydrate [Monodox] 100 mg PO DAILY #20 cap 08/24/18 [Rx] Follow up Appointment(s)/Referral(s): Luis Quesada Jr, [Primary Care Provider] - 1-2 days [facility] Visiting Nurse, [NON-STAFF] -
[2018-08-25 12:44] VITALS: PULSE 68
== END 2018-08-25 14:36 | disposition home health service (06) | DRG 638 ==
LOC: EC 15:53 → INTOOBSV 18:34 → 4MS4W 18:34 → OBSVTOIN 08-24 14:47
PROVIDERS: ADMIT Family Medicine; ATTEND Family Medicine
DX: E11.621 Type 2 diabetes mellitus with foot ulcer (principal); L97.419 Non-pressure chronic ulcer of right heel and midfoot with unspecified severity; D72.829 Elevated white blood cell count, unspecified; E11.42 Type 2 diabetes mellitus with diabetic polyneuropathy; E78.5 Hyperlipidemia, unspecified; F32.9 Major depressive disorder, single episode, unspecified; F41.9 Anxiety disorder, unspecified; G47.33 Obstructive sleep apnea (adult) (pediatric); I11.0 Hypertensive heart disease with heart failure; I25.10 Atherosclerotic heart disease of native coronary artery without angina pectoris; I25.2 Old myocardial infarction; I48.91 Unspecified atrial fibrillation; I50.9 Heart failure, unspecified; J44.9 Chronic obstructive pulmonary disease, unspecified; M19.041 Primary osteoarthritis, right hand; M19.042 Primary osteoarthritis, left hand; N40.0 Benign prostatic hyperplasia without lower urinary tract symptoms; Z79.4 Long term (current) use of insulin; Z79.51 Long term (current) use of inhaled steroids; Z79.899 Other long term (current) drug therapy; Z82.49 Family history of ischemic heart disease and other diseases of the circulatory system; Z82.5 Family history of asthma and other chronic lower respiratory diseases; Z85.528 Personal history of other malignant neoplasm of kidney; Z86.14 Personal history of Methicillin resistant Staphylococcus aureus infection; Z86.73 Personal history of transient ischemic attack (TIA), and cerebral infarction without residual deficits; Z88.2 Allergy status to sulfonamides; Z90.411 Acquired partial absence of pancreas; Z90.5 Acquired absence of kidney; Z90.81 Acquired absence of spleen; Z91.19 Patient's noncompliance with other medical treatment and regimen; Z95.1 Presence of aortocoronary bypass graft; Z88.0 Allergy status to penicillin; Z88.8 Allergy status to other drugs, medicaments and biological substances; Z88.5 Allergy status to narcotic agent; B95.62 Methicillin resistant Staphylococcus aureus infection as the cause of diseases classified elsewhere
CPT/HCPCS: 36415; 78315; 80053; 83036; 83605; 85025; 87040; 87070; 87075; 87077; 87186; 87205; 94640; 96365; 96366; 99284

== ENCOUNTER 2019-01-15 14:00 | Inpatient (IN) | payer MEDICARE, BC ==
[2019-01-15] MEDS ORDERED: SODIUM CHLORIDE 0.9% 1,000 ML IV STA ×2 (14:13)
[2019-01-15] MEDS ORDERED: SODIUM CHLORIDE 0.9% 500 ML 500 ML IV STA (14:13)
--- NOTE | 2019-01-15 14:15 | ED ---
Fever HPI - General Stated Complaint: JAYME Time Seen by Provider: 01/15/19 14:10 Source: RN notes reviewed, old records reviewed - History of Present Illness Initial Comments: This is an 83-year-old male the ER for evaluation he presents today for evaluation regards to weakness, known fever. Does have long insignificant medical record. No travel history, no significant recent hospitalizations. - Related Data Home Medications Medication Instructions Recorded Confirmed Insulin Detemir [Levemir Flextouch] 58 units SQ HS 12/21/14 01/15/19 Montelukast [Singulair] 10 mg PO HS 12/21/14 01/15/19 Insulin Aspart [NovoLOG Flexpen] 17 units SQ ACHS 02/07/16 01/15/19 Magnesium Oxide [Mag-Ox] 250 mg PO DAILY 02/07/16 01/15/19 Pravastatin Sodium 40 mg PO HS 02/07/16 01/15/19 [place]-3 Fatty Acids/Fish Oil [Fish 1 cap PO DAILY 08/13/16 01/15/19 Oil 1,000 mg Softgel] Acetaminophen Tab [Tylenol] 1,000 mg PO BID 03/17/17 01/15/19 Insulin Aspart [NovoLOG Flexpen] See Protocol SQ AC-TID PRN 11/12/17 01/15/19 Budesonide-Formot 160-4.5 Mcg 2 puff INHALATION RT-BID 11/13/17 01/15/19 [Symbicort 160-4.5 Mcg Inhaler] Furosemide [Lasix] 40 mg PO DAILY 01/26/18 01/15/19 Ipratropium-Albuterol Nebulize 3 ml INHALATION RT-QID 01/26/18 01/15/19 [Duoneb 0.5 mg-3 mg/3 ml Soln] Lisinopril [Zestril] 5 mg PO QAM 01/26/18 01/15/19 Spironolactone [Aldactone] 12.5 mg PO BID 01/26/18 01/15/19 Escitalopram Oxalate [Lexapro] 10 mg PO HS 04/19/18 01/15/19 Cyanocobalamin (Vitamin B-12) 1,000 mcg PO DIRECTED 01/15/19 01/15/19 [Vitamin B-12] Sulfamethox-Tmp 800-160Mg [Bactrim 1 tab PO TID 01/15/19 01/15/19 DS 800-160 mg] amLODIPine [Norvasc] 10 mg PO HS 01/15/19 01/15/19 Previous Rx's Medication Instructions Recorded Pantoprazole [Protonix] 40 mg PO DAILY #30 tab 03/21/17 Allergies Allergy/AdvReac Type Severity Reaction Status Date / Time Penicillins Allergy Unknown Rash/Hives Verified 01/15/19 15:02 atorvastatin calcium Allergy Unknown Verified 01/15/19 15:02 [From Lipitor] clonazepam [From Klonopin] Allergy Hallucinati Verified 01/15/19 15:02 ons codeine Allergy Hallucinati Verified 01/15/19 15:02 ons haloperidol [From Haldol] Allergy Hallucinati Verified 01/15/19 15:02 ons haloperidol lactate Allergy Hallucinati Verified 01/15/19 15:02 [From Haldol] ons hydromorphone HCl Allergy Hallucinati Verified 01/15/19 15:02 [From Dilaudid] ons methylphenidate HCl Allergy Hallucinati Verified 01/15/19 15:02 [From Ritalin] ons morphine Allergy Hallucinati Verified 01/15/19 15:02 ons propofol Allergy Hallucinati Verified 01/15/19 15:02 ons quetiapine fumarate Allergy Hallucinati Verified 01/15/19 15:02 [From Seroquel] ons Sulfa (Sulfonamide Allergy Unknown Verified 01/15/19 15:02 Antibiotics) vancomycin Allergy Unknown Verified 01/15/19 15:02 ativan AdvReac Unknown Uncoded 01/15/19 14:17 Review of Systems ROS Statement: Those systems with pertinent positive or pertinent negative responses have been documented in the HPI. ROS Other: All systems not noted in ROS Statement are negative. Past Medical History Past Medical History: Atrial Fibrillation, Coronary Artery Disease (CAD), Cancer, Heart Failure, COPD, CVA/TIA, Diabetes Mellitus, Eye Disorder, GI Bleed, Hyperlipidemia, Hypertension, Myocardial Infarction ([place]), Osteoarthritis (OA), Prostate Disorder, Skin Disorder, Sleep Apnea/CPAP/BIPAP Additional Past Medical History / Comment(s): Anemia, blood and iron transfusions, right leg cellulitis, 2014 L renal cancer with surgery - partial nephrectomy/spleenectomy/distal portion of pancreas removed at [facility], IDDM type II, TIA, [place] unknown date, BPH, gastritis, small hiatal hernia, past discitis T9-T10, arthritis bilateral hands/back, TARIQ - does not tolerate his CPAP, past R great toe ulcer/infection. Last Myocardial Infarction Date:: UNKNOWN History of Any Multi-Drug Resistant Organisms: MRSA Date of last positivie culture/infection: 11/13/17 MDRO Source:: RIGHT TOE Past Surgical History: Coronary Bypass/CABG, Heart Catheterization Additional Past Surgical History / Comment(s): Partial L nephrectomy, distal pancreatectomy, splenectomy - at [facility] CABG - 3 vessel, EGD, colonoscopy, deviated septum surgery, skin/oral lesion removals, R carpal tunnel release, bilateral cataract removal, bilateral laser eye surgery for "leakage". Past Anesthesia/Blood Transfusion Reactions: Previous Problems w/ Anesthesia Additional Past Anesthesia/Blood Transfusion Reaction / Comment(s): 'TROUBLE COMING OUT OF ANESTHESIA' - DELUSIONAL. Patient has received blood in past without reaction. Past Psychological History: Anxiety, Depression Additional Psychological History / Comment(s): Pt resides with his spouse. He uses a cane or walker to ambulate. He no longer drives. His spouse drives and manages his medications. No current alcohol use. 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 No marijuana or illicit drug use. No alcohol use. Patient resides with his spouse. He uses a cane or walker to ambulate. He no longer drives. His pulse tries and manages his medications. 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 Past Drug Use History: None Reported - Past Family History Father Family Medical History: Myocardial Infarction ([place]) Mother Family Medical History: COPD General Exam General appearance: alert, in no apparent distress Head exam: Present: atraumatic, normocephalic, normal inspection Eye exam: Present: normal appearance, PERRL, EOMI. Absent: scleral icterus, conjunctival injection, periorbital swelling ENT exam: Present: normal exam, mucous membranes moist Neck exam: Present: normal inspection. Absent: tenderness, meningismus, lymphadenopathy Respiratory exam: Present: normal lung sounds bilaterally. Absent: respiratory distress, wheezes, rales, rhonchi, stridor Cardiovascular Exam: Present: regular rate, normal rhythm, normal heart sounds. Absent: systolic murmur, diastolic murmur, rubs, gallop, clicks GI/Abdominal exam: Present: soft, normal bowel sounds. Absent: distended, tenderness, guarding, rebound, rigid Extremities exam: Present: normal inspection, full ROM, normal capillary refill. Absent: tenderness, pedal edema, joint swelling, calf tenderness Back exam: Present: normal inspection Neurological exam: Present: alert, oriented X3, CN II-XII intact Psychiatric exam: Present: normal affect, normal mood Skin exam: Present: warm, dry, intact, normal color. Absent: rash Course Vital Signs 01/15/19 01/15/19 14:15 14:39 Temperature 101.1 F H Pulse Rate 91 81 Respiratory 28 H 22 Rate Blood Pressure 117/68 122/59 O2 Sat by Pulse 93 L 92 L Oximetry Medical Decision Making - Medical Decision Making 83 male the ER for evaluation of not feeling well doesn't with some shortness of breath weakness and no fever. Some chills. Patient has found pneumonia on x- ray, will admit for treatment of COPD monitoring of cardiopulmonary status IV antibiotics for pneumonia. No recent hospital admissions. No current chest pain. - Lab Data Result diagrams: 01/15/19 14:20 01/15/19 14:20 Lab Results 01/15/19 01/15/19 01/15/19 Range/Units 14:20 14:20 14:20 WBC 21.8 H (3.8-10.6) k/uL RBC 3.67 L (4.30-5.90) m/uL Hgb 9.3 L (13.0-17.5) gm/dL Hct 29.3 L (39.0-53.0) % MCV 79.8 L (80.0-100.0) fL MCH 25.3 (25.0-35.0) pg MCHC 31.8 (31.0-37.0) g/dL RDW 16.8 H (11.5-15.5) % Plt Count 428 (150-450) k/uL Neutrophils % 88 % Lymphocytes % 4 % Monocytes % 6 % Eosinophils % 1 % Basophils % 0 % Neutrophils # 19.3 H (1.3-7.7) k/uL Lymphocytes # 0.8 L (1.0-4.8) k/uL Monocytes # 1.3 H (0-1.0) k/uL Eosinophils # 0.1 (0-0.7) k/uL Basophils # 0.0 (0-0.2) k/uL Anisocytosis Slight Microcytosis Slight PT (9.0-12.0) sec INR (<1.2) APTT (22.0-30.0) sec Sodium 129 L (137-145) mmol/L Potassium 5.5 H (3.5-5.1) mmol/L Chloride 93 L (98-107) mmol/L Carbon Dioxide 21 L (22-30) mmol/L Anion Gap 15 mmol/L BUN 35 H (9-20) mg/dL Creatinine 1.56 H (0.66-1.25) mg/dL Est GFR (CKD-EPI)AfAm 48 (>60 ml/min/1.73 sqM) Est GFR (CKD-EPI)NonAf 41 (>60 ml/min/1.73 sqM) Glucose 328 H (74-99) mg/dL Plasma Lactic Acid Dean 3.8 H* (0.7-2.0) mmol/L Calcium 9.1 (8.4-10.2) mg/dL Phosphorus 3.2 (2.5-4.5) mg/dL Magnesium 2.1 (1.6-2.3) mg/dL Total Bilirubin 0.3 (0.2-1.3) mg/dL AST 44 (17-59) U/L ALT 42 (21-72) U/L Alkaline Phosphatase 61 (38-126) U/L NT-Pro-B Natriuret Pep pg/mL Total Protein 7.1 (6.3-8.2) g/dL Albumin 4.1 (3.5-5.0) g/dL 01/15/19 01/15/19 Range/Units 14:20 14:20 WBC (3.8-10.6) k/uL RBC (4.30-5.90) m/uL Hgb (13.0-17.5) gm/dL Hct (39.0-53.0) % MCV (80.0-100.0) fL MCH (25.0-35.0) pg MCHC (31.0-37.0) g/dL RDW (11.5-15.5) % Plt Count (150-450) k/uL Neutrophils % % Lymphocytes % % Monocytes % % Eosinophils % % Basophils % % Neutrophils # (1.3-7.7) k/uL Lymphocytes # (1.0-4.8) k/uL Monocytes # (0-1.0) k/uL Eosinophils # (0-0.7) k/uL Basophils # (0-0.2) k/uL Anisocytosis Microcytosis PT 10.2 (9.0-12.0) sec INR 0.9 (<1.2) APTT 28.1 (22.0-30.0) sec Sodium (137-145) mmol/L Potassium (3.5-5.1) mmol/L Chloride (98-107) mmol/L Carbon Dioxide (22-30) mmol/L Anion Gap mmol/L BUN (9-20) mg/dL Creatinine (0.66-1.25) mg/dL Est GFR (CKD-EPI)AfAm (>60 ml/min/1.73 sqM) Est GFR (CKD-EPI)NonAf (>60 ml/min/1.73 sqM) Glucose (74-99) mg/dL Plasma Lactic Acid Dean (0.7-2.0) mmol/L Calcium (8.4-10.2) mg/dL Phosphorus (2.5-4.5) mg/dL Magnesium (1.6-2.3) mg/dL Total Bilirubin (0.2-1.3) mg/dL AST (17-59) U/L ALT (21-72) U/L Alkaline Phosphatase (38-126) U/L NT-Pro-B Natriuret Pep 2630 pg/mL Total Protein (6.3-8.2) g/dL Albumin (3.5-5.0) g/dL - EKG Data -: EKG Interpreted by Me (KG shows rate of 87, QRS 114, QTc 469) - Radiology Data Radiology results: report reviewed (Chest x-ray was significant for positive pneumonia), image reviewed Disposition Clinical Impression: Acute exacerbation of chronic obstructive airways disease, Community acquired pneumonia, Fever Disposition: ADMITTED IP TO THIS [facility] Condition: Fair Is patient prescribed a controlled substance at d/c from ED?: No Referrals: Luis Quesada Jr, [Primary Care Provider] - 1-2 days
--- NOTE | 2019-01-15 14:35 | XR ---
EXAMINATION TYPE: XR chest 2V DATE OF EXAM: 01/15/2019 COMPARISON: 04/20/2018 HISTORY: Weakness TECHNIQUE: Frontal and lateral views of the chest are obtained. FINDINGS: There is chronic right hemidiaphragm elevation. Cardiomediastinal silhouette is enlarged w ith post CABG changes. Old healed left posterior lateral rib fractures are noted. Generalized osseous demineralization is seen. Peribronchial cuffing is seen on the lateral view in the retrocardiac airs pace. There is no focal air space opacity, pleural effusion, or pneumothorax seen. The cardiac silho uette size is within normal limits. The osseous structures are intact. Mild multilevel degenerative changes of the spine. IMPRESSION: Chronic right hemidiaphragm elevation. New retrocardiac peribronchial cuffing may relate to reactive or infectious airway disease. Consider bronchitis.
[2019-01-15 14:36] LABS: Anisocytosis Slight; Basophils % (A) 0 %; Eosinophils # (A) 0.1 k/uL (0-0.7); Eosinophils % (A) 1 %; HCT 29.3 % (39.0-53.0); HGB 9.3 gm/dL (13.0-17.5); Lymphocytes # (A) 0.8 k/uL (1.0-4.8); Lymphocytes % (A) 4 %; MCH 25.3 pg (25.0-35.0); MCHC 31.8 g/dL (31.0-37.0); MCV 79.8 fL (80.0-100.0); Mean Platelet Volume 7.5; Microcytosis Slight; Monocytes # (A) 1.3 k/uL (0-1.0); Monocytes % (A) 6 %; Neutrophils # (A) 19.3 k/uL (1.3-7.7); Neutrophils % (A) 88 %; Platelet Count 428 k/uL (150-450); RBC 3.67 m/uL (4.30-5.90); RDW 16.8 % (11.5-15.5); WBC 21.8 k/uL (3.8-10.6)
[2019-01-15 14:44] LABS: INR 0.9 (<1.2); Partial Thromboplastin Time 28.1 sec (22.0-30.0); Prothrombin Time 10.2 sec (9.0-12.0)
[2019-01-15 14:49] LABS: Albumin 4.1 g/dL (3.5-5.0); Calcium 9.1 mg/dL (8.4-10.2); Magnesium 2.1 mg/dL (1.6-2.3); Phosphorus 3.2 mg/dL (2.5-4.5); Potassium 5.5 mmol/L (3.5-5.1); Total Bilirubin 0.3 mg/dL (0.2-1.3); Total Protein 7.1 g/dL (6.3-8.2)
[2019-01-15] MEDS ORDERED: PNEUMONIA PROTOCOL UTILIZED 1 EACH MISC PO PRN (15:19)
[2019-01-15] MEDS ORDERED: ALBUTEROL NEBULIZED 2.5 MG/3 ML INHALATION PRN (15:19)
[2019-01-15] MEDS ORDERED: AZITHROMYCIN 500 MG in SODIUM CHLORIDE 0.9% 250 ML IVPB STA (15:19)
[2019-01-15 16:34] LABS: Appearance,Urine Clear (Clear); Bilirubin,Urine Negative (Negative); Blood,Urine Negative (Negative); Color,Urine Light Yellow; Glucose,Urine (UA) 3+ (Negative); Ketones,Urine Negative (Negative); Leukocyte Esterase,Urine Negative (Negative); Nitrite,Urine Negative (Negative); Protein,Urine Trace (Negative); Urobilinogen,Urine <2.0 mg/dL (<2.0)
[2019-01-15] MEDS: IPRATROPIUM-ALBUTEROL 3 ML NEB INHALATION SCH ×2 (17:30→20:47)
[2019-01-15 17:59] LABS: Glucose,Whole Blood 262 mg/dL (75-99)
[2019-01-15] MEDS ORDERED: amLODIPine 10 MG TAB PO SCH (21:00)
[2019-01-15 21:16] LABS: Glucose,Whole Blood 297 mg/dL (75-99)
[2019-01-15] MEDS: MONTELUKAST 10 MG TAB PO SCH (21:57)
[2019-01-15] MEDS: SPIRONOLACTONE 25 MG TAB PO SCH (21:57)
[2019-01-15] MEDS: ACETAMINOPHEN TAB 500 MG TAB PO SCH (21:57)
[2019-01-15] MEDS: PRAVASTATIN SODIUM 40 MG TAB PO SCH (21:58)
[2019-01-15] MEDS: ESCITALOPRAM 10 MG TAB PO SCH (21:58)
[2019-01-15] MEDS: MELATONIN 3 MG TABLET PO SCH (21:58)
[2019-01-15] MEDS: INSULIN DETEMIR (LEVEMIR) 100 UNIT/ML SYR SQ SCH (21:59)
[2019-01-15] MEDS ORDERED: SULFAMETHOX-TMP 800-160MG 1 EACH TAB PO SCH (22:00)
[2019-01-16 06:45] LABS: Glucose,Whole Blood 198 mg/dL (75-99)
[2019-01-16] MEDS: INSULIN ASPART (NovoLOG) 100 UNIT/ML VIAL SQ SCH ×6 (07:05→21:27)
[2019-01-16] MEDS: PANTOPRAZOLE 40 MG TABLET PO SCH (07:06)
[2019-01-16] MEDS: IPRATROPIUM-ALBUTEROL 3 ML NEB INHALATION SCH ×4 (07:37→20:09)
[2019-01-16] MEDS: SYMBICORT 160-4.5 MCG INHALER INHALATION SCH ×2 (07:37→20:09)
[2019-01-16] MEDS ORDERED: IPRATROPIUM-ALBUTEROL 3 ML NEB INHALATION SCH (08:00)
[2019-01-16] MEDS: ACETAMINOPHEN TAB 500 MG TAB PO SCH ×2 (08:23→21:26)
[2019-01-16] MEDS: MAGNESIUM OXIDE 400 MG TAB PO SCH (08:24)
[2019-01-16] MEDS: LISINOPRIL 5 MG TAB PO SCH (08:24)
[2019-01-16] MEDS: SPIRONOLACTONE 25 MG TAB PO SCH (08:24)
[2019-01-16] MEDS ORDERED: NON-FORMULARY DRUG (Omega-3 Fatty Acids/Fish Oil [Fish Oil 1,000 Mg Softgel] 1 CAP) PO SCH (09:00)
[2019-01-16] MEDS ORDERED: FUROSEMIDE 40 MG TAB PO SCH (09:00)
--- NOTE | 2019-01-16 09:11 | XR ---
EXAMINATION TYPE: XR chest 2V DATE OF EXAM: 01/16/2019 COMPARISON: 01/15/2019 INDICATION: Pneumonia TECHNIQUE: Frontal and lateral views of the chest are obtained. FINDINGS: The heart size is normal. The pulmonary vasculature is normal. Some mild plate atelectasis is above the right diaphragm.. IMPRESSION: 1. Mild infiltrate at the right diaphragm may be some platelike atelectasis.
--- NOTE | 2019-01-16 09:21 | P.CRDCN ---
History of Present Illness Consult date: 01/16/19 Requesting physician: Jono Key Consult reason: congestive heart failure Chief complaint: Weakness, fever, shortness of breath History of present illness: This is an 83-year-old gentleman who follows with Dr. Lr in the office. He has a known history of coronary artery disease with prior bypass surgery, paroxysmal atrial fibrillation, diabetes, hypertension, hyperlipidemia, history of renal cancer status post nephrectomy prior TIA, sleep apnea, he presents to the hospital with symptoms of progressive weakness, he also states that he was running a fever at home. According to the patient is breathing has been worse than his usual as well, and he is also been having a productive cough of green sputum. Asked x-ray on presentation here showed a chronic right hemidiaphragm elevation, new retrocardiac peribronchial cuffing which may relate to reactive or infectious airway disease, consider bronchitis. EKG on presentation here shows what appears to be a junctional rhythm with ST-T wave changes noted in the lateral leads. Similar to prior EKGs. Blood pressure 146/80 with a heart rate in the 90s, temperature 99.9 on admission. White blood cell count 21.8, hemoglobin 9.3, platelet count 428. Sodium 129, potassium 5.5, BUN 35 and creatinine 1.5. Glucose level 328 on admission. Troponin 0.055, BNP level 2630, TSH 0.221. Influenza A and B were negative. At the time of my examination this morning, patient is sitting up in his chair at bedside, breathing is overall stable, he states he does get short of breath when he exerts himself minimally. His feet are elevated, he does have a trace of bilateral peripheral edema noted . Past Medical History Past Medical History: Atrial Fibrillation, Coronary Artery Disease (CAD), Cancer, Heart Failure, COPD, CVA/TIA, Diabetes Mellitus, Eye Disorder, GI Bleed, Hyperlipidemia, Hypertension, Myocardial Infarction ([place]), Osteoarthritis (OA), Prostate Disorder, Skin Disorder, Sleep Apnea/CPAP/BIPAP Additional Past Medical History / Comment(s): Anemia, blood and iron transfusions, right leg cellulitis, 2013 L renal cancer with surgery - partial nephrectomy/spleenectomy/distal portion of pancreas removed at [facility], IDDM type II, TIA, [place] unknown date, BPH, gastritis, small hiatal hernia, past discitis T9-T10, arthritis bilateral hands/back, TARIQ - does not tolerate his CPAP, past R great toe ulcer/infection. Last Myocardial Infarction Date:: UNKNOWN History of Any Multi-Drug Resistant Organisms: MRSA Date of last positivie culture/infection: 11/13/17 MDRO Source:: RIGHT TOE Past Surgical History: Coronary Bypass/CABG, Heart Catheterization Additional Past Surgical History / Comment(s): Partial L nephrectomy, distal pancreatectomy, splenectomy - at 2000 CABG - 3 vessel, EGD, colonoscopy, deviated septum surgery, skin/oral lesion removals, R carpal tunnel release, bilateral cataract removal, bilateral laser eye surgery for "leakage". Past Anesthesia/Blood Transfusion Reactions: Previous Problems w/ Anesthesia Additional Past Anesthesia/Blood Transfusion Reaction / Comment(s): 'TROUBLE COMING OUT OF ANESTHESIA' - DELUSIONAL. Patient has received blood in past without reaction. Past Psychological History: Anxiety, Depression Additional Psychological History / Comment(s): Pt resides with his spouse. He uses a cane or walker to ambulate. He no longer drives. His spouse drives and manages his medications. No current alcohol use. 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 No marijuana or illicit drug use. No alcohol use. Patient resides with his spouse. He uses a cane or walker to ambulate. He no longer drives. His pulse tries and manages his medications. 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 Past Drug Use History: None Reported - Past Family History Father Family Medical History: Myocardial Infarction ([place]) Mother Family Medical History: COPD Medications and Allergies Home Medications Medication Instructions Recorded Confirmed Type Insulin Detemir [Levemir Flextouch] 58 units SQ HS 12/21/14 01/15/19 History Montelukast [Singulair] 10 mg PO HS 12/21/14 01/15/19 History Insulin Aspart [NovoLOG Flexpen] 17 units SQ TID-W/MEALS 02/07/16 01/15/19 History Magnesium Oxide [Mag-Ox] 250 mg PO DAILY 02/07/16 01/15/19 History Pravastatin Sodium 40 mg PO HS 02/07/16 01/15/19 History Hart[place]-3 Fatty Acids/Fish Oil [Fish 1 cap PO DAILY 08/13/16 01/15/19 History Oil 1,000 mg Softgel] Acetaminophen Tab [Tylenol] 1,000 mg PO BID 03/17/17 01/15/19 History Pantoprazole [Protonix] 40 mg PO DAILY #30 tab 03/21/17 01/15/19 Rx Insulin Aspart [NovoLOG Flexpen] See Protocol SQ AC-TID PRN 11/12/17 01/15/19 History Budesonide-Formot 160-4.5 Mcg 2 puff INHALATION RT-BID 11/13/17 01/15/19 History [Symbicort 160-4.5 Mcg Inhaler] Furosemide [Lasix] 40 mg PO DAILY 01/26/18 01/15/19 History Ipratropium-Albuterol Nebulize 3 ml INHALATION RT-QID 01/26/18 01/15/19 History [Duoneb 0.5 mg-3 mg/3 ml Soln] Lisinopril [Zestril] 5 mg PO QAM 01/26/18 01/15/19 History Spironolactone [Aldactone] 12.5 mg PO BID 01/26/18 01/15/19 History Escitalopram Oxalate [Lexapro] 10 mg PO HS 04/19/18 01/15/19 History Cyanocobalamin (Vitamin B-12) 1,000 mcg PO DIRECTED 01/15/19 01/15/19 History [Vitamin B-12] Sulfamethox-Tmp 800-160Mg [Bactrim 1 tab PO TID 01/15/19 01/15/19 History DS 800-160 mg] amLODIPine [Norvasc] 10 mg PO HS 01/15/19 01/15/19 History Allergies Allergy/AdvReac Type Severity Reaction Status Date / Time Penicillins Allergy Unknown Rash/Hives Verified 01/15/19 15:02 atorvastatin calcium Allergy Unknown Verified 01/15/19 15:02 [From Lipitor] clonazepam [From Klonopin] Allergy Hallucinati Verified 01/15/19 15:02 ons codeine Allergy Hallucinati Verified 01/15/19 15:02 ons haloperidol [From Haldol] Allergy Hallucinati Verified 01/15/19 15:02 ons haloperidol lactate Allergy Hallucinati Verified 01/15/19 15:02 [From Haldol] ons hydromorphone HCl Allergy Hallucinati Verified 01/15/19 15:02 [From Dilaudid] ons methylphenidate HCl Allergy Hallucinati Verified 01/15/19 15:02 [From Ritalin] ons morphine Allergy Hallucinati Verified 01/15/19 15:02 ons propofol Allergy Hallucinati Verified 01/15/19 15:02 ons quetiapine fumarate Allergy Hallucinati Verified 01/15/19 15:02 [From Seroquel] ons Sulfa (Sulfonamide Allergy Unknown Verified 01/15/19 15:02 Antibiotics) vancomycin Allergy Unknown Verified 01/15/19 15:02 ativan AdvReac Unknown Uncoded 01/15/19 14:17 Physical Exam Vitals: Vital Signs Temp Pulse Pulse Resp BP BP Pulse Ox 01/16/19 08:20 97.6 F 91 18 146/82 92 L 01/16/19 07:55 88 01/16/19 07:41 84 01/16/19 04:00 98.2 F 84 16 146/82 93 L 01/16/19 00:00 98.1 F 83 16 119/68 94 L 01/15/19 23:44 20 01/15/19 21:37 98.4 F 82 20 156/68 96 01/15/19 20:56 86 01/15/19 20:50 97 01/15/19 20:49 84 01/15/19 20:00 98.4 F 82 20 156/68 96 01/15/19 18:41 99.0 F 77 24 144/77 96 01/15/19 17:00 82 22 141/70 94 L 01/15/19 16:03 80 22 118/76 96 01/15/19 16:00 99.9 F H 01/15/19 15:00 82 12 110/76 98 01/15/19 14:39 81 22 122/59 92 L 01/15/19 14:15 101.1 F H 91 28 H 117/68 93 L Intake and Output 01/15/19 01/16/19 01/16/19 22:59 06:59 14:59 Intake Total 200 500 Output Total 800 400 Balance -600 100 Intake: Intake, IV Titration 400 Amount Sodium Chloride 0.9% 1, 400 000 ml @ 100 mls/hr IV . Q10H STA Rx#:[id number] Oral 200 100 Output: Urine 800 400 Other: Voiding Method Bedside Commode Bedside Commode Urinal Urinal # Voids 2 Weight 109.7 kg PHYSICAL EXAMINATION: GENERAL: 83-year-old gentleman in no acute distress at the time of my examination HEENT: Head is atraumatic, normocephalic. Pupils equal, round. Sclera anicteric. Conjunctiva are clear. Mucous membranes of the mouth are moist. Neck is supple. There is no elevated jugular venous pressure. No carotid bruit is heard. HEART EXAMINATION: S1 and S2 systolic murmur is heard CHEST EXAMINATION: On's reveal diminished air entry bilaterally with crackles to the bases bilaterally ABDOMEN: Soft, obese, mildly distended nontender. Bowel sounds are heard. No organomegaly noted. EXTREMITIES: 2+ peripheral pulses with trace evidence of peripheral edema and no calf tenderness noted. NEUROLOGIC patient is awake, alert and oriented 3 . . Results 01/15/19 14:20 01/15/19 14:20 Cardiac Enzymes 01/15/19 01/15/19 Range/Units 14:20 14:20 AST 44 (17-59) U/L Troponin I 0.055 H* (0.000-0.034) ng/mL Coagulation 01/15/19 Range/Units 14:20 PT 10.2 (9.0-12.0) sec APTT 28.1 (22.0-30.0) sec CBC 01/15/19 Range/Units 14:20 WBC 21.8 H (3.8-10.6) k/uL RBC 3.67 L (4.30-5.90) m/uL Hgb 9.3 L (13.0-17.5) gm/dL Hct 29.3 L (39.0-53.0) % Plt Count 428 (150-450) k/uL Comprehensive Metabolic Panel 01/15/19 Range/Units 14:20 Sodium 129 L (137-145) mmol/L Potassium 5.5 H (3.5-5.1) mmol/L Chloride 93 L (98-107) mmol/L Carbon Dioxide 21 L (22-30) mmol/L BUN 35 H (9-20) mg/dL Creatinine 1.56 H (0.66-1.25) mg/dL Glucose 328 H (74-99) mg/dL Calcium 9.1 (8.4-10.2) mg/dL AST 44 (17-59) U/L ALT 42 (21-72) U/L Alkaline Phosphatase 61 (38-126) U/L Total Protein 7.1 (6.3-8.2) g/dL Albumin 4.1 (3.5-5.0) g/dL Current Medications Generic Name Dose Route Start Last Admin Trade Name Freq PRN Reason Stop Dose Admin Acetaminophen 1,000 mg 01/15/19 21:00 01/16/19 08:23 Tylenol Tab PO 1,000 mg BID [facility] Administration Albuterol Sulfate 2.5 mg 01/15/19 15:19 Ventolin Nebulized INHALATION RT-Q4H PRN Shortness Of Breath Or Wheezing Albuterol/Ipratropium 3 ml 01/15/19 16:00 01/16/19 07:37 Duoneb 0.5 Mg-3 Mg/3 Ml Soln INHALATION 3 ml RT-QID [facility] Administration Amlodipine Besylate 10 mg 01/15/19 21:00 01/15/19 21:58 Norvasc PO 10 mg HS [facility] Administration Azithromycin 500 mg 01/16/19 16:00 Zithromax PO DAILY@1600 [facility] Budesonide/Formoterol Fumarate 2 puff 01/16/19 08:00 01/16/19 07:37 Symbicort 160-4.5 Mcg Inhaler INHALATION 2 puff RT-BID [facility] Administration Cyanocobalamin 1,000 mcg 01/17/19 09:00 Vitamin B-12 PO MoTh [facility] Escitalopram Oxalate 10 mg 01/15/19 21:00 01/15/19 21:58 Lexapro PO 10 mg HS [facility] Administration Furosemide 40 mg 01/16/19 09:00 01/16/19 08:24 Lasix PO 40 mg DAILY [facility] Administration Ceftriaxone Sodium 1 gm/ 50 mls @ 100 mls/hr 01/16/19 09:00 01/16/19 08:21 Sodium Chloride IVPB 01/19/19 09:01 100 mls/hr Q24HR [facility] Administration Insulin Aspart 17 unit 01/16/19 07:30 01/16/19 07:05 Novolog SQ 17 unit TID-W/MEALS [facility] Administration Insulin Detemir 58 unit 01/15/19 21:00 01/15/19 21:59 Levemir SQ 58 unit HS [facility] Administration Lisinopril 5 mg 01/16/19 09:00 01/16/19 08:24 Zestril PO 5 mg QAM [facility] Administration Magnesium Oxide 400 mg 01/16/19 09:00 01/16/19 08:24 Mag-Ox PO 400 mg DAILY [facility] Administration Melatonin 3 mg 01/15/19 21:00 01/15/19 21:58 Melatonin PO 3 mg HS [facility] Administration Miscellaneous Information 1 each 01/15/19 15:19 Pneumonia Protocol Utilized PO ONCE PRN Per Protocol Montelukast Sodium 10 mg 01/15/19 21:00 01/15/19 21:57 Singulair PO 10 mg HS [facility] Administration Non-Formulary Medication 1 cap 01/16/19 09:00 01/16/19 08:24 Hart[place]-3 Fatty Acids/Fish Oil [Fish Oil 1,000 Mg Softgel] PO Not Given DAILY [facility] Pantoprazole Sodium 40 mg 01/16/19 07:30 01/16/19 07:06 Protonix PO 40 mg AC-BRKFST [facility] Administration Pravastatin Sodium 40 mg 01/15/19 21:00 01/15/19 21:58 Pravachol PO 40 mg HS [facility] Administration Spironolactone 12.5 mg 01/15/19 21:00 01/16/19 08:24 Aldactone PO 12.5 mg BID [facility] Administration Intake and Output 01/15/19 01/16/19 01/16/19 22:59 06:59 14:59 Intake Total 200 500 Output Total 800 400 Balance -600 100 Intake: Intake, IV Titration 400 Amount Sodium Chloride 0.9% 1, 400 000 ml @ 100 mls/hr IV . Q10H STA Rx#:[id number] Oral 200 100 Output: Urine 800 400 Other: Voiding Method Bedside Commode Bedside Commode Urinal Urinal # Voids 2 Weight 109.7 kg 01/15/19 14:20 01/15/19 14:20 EKG Interpretations (text) EKG shows a junctional rhythm Assessment and Plan Plan: Assessment and plan #1 symptoms of weakness with associated fever, productive cough of green sputum, elevated white blood cell count, suggestive of possible tracheobronchitis or pneumonia #2 mild congestive heart failure, likely diastolic in nature, acute on chronic, patient had an echocardiogram with Doppler study performed in November 2017 which revealed an ejection fraction of 45-50%, moderate mitral regurg, moderate tricuspid regurg and severe pulmonary hypertension. #3 coronary artery disease history with prior bypass #4 paroxysmal atrial fibrillation #5 diabetes #6 hypertension #7 hyperlipidemia #8 history of renal cancer status post nephrectomy #9 sleep apnea #10 prior TIA #11 acute on chronic kidney disease #12 hyperkalemia #13 abnormal troponin, 0.055, likely secondary to abnormal renal function Plan We will obtain a repeat echocardiogram with Doppler study. We will also give the patient a dose of IV Lasix, continue lisinopril, hold Aldactone at this time because of the hyperkalemia, discontinue Norvasc and start the patient on a beta toyin. The patient on a baby aspirin. Patient is not currently on anticoagulation for his paroxysmal atrial fibrillation, there is some documentation suggesting he is not on anticoagulation because of history of GI bleed, we will obtain the office note to further investigate this. Continue to monitor the patient's intake and output along with daily weights and daily lytes BUN and creatinine. Patient is currently on antibiotics, we will continue to follow. DNP note has been reviewed, I agree with a documented findings and plan of care. Patient was seen and examined.
[2019-01-16 11:41] LABS: Glucose,Whole Blood 231 mg/dL (75-99)
--- NOTE | 2019-01-16 11:46 | ECHOF ---
Referral Reason:sob MEASUREMENTS -------- HEIGHT: 175.3 cm WEIGHT: 109.3 kg BP: 146/82 IVSd: 1.0 cm (0.6 - 1.1) LVIDd: 5.7 cm (3.9 - 5.3) LVPWd: 1.2 cm (0.6 - 1.1) IVSs: 1.0 cm LVIDs: 4.3 cm LVPWs: 1.2 cm Ao Diam: 3.9 cm (2.0 - 3.7) AV Cusp: 2.0 cm (1.5 - 2.6) LA Diam: 3.2 cm (2.7 - 3.8) MV EXCURSION: 15.965 mm (> 18.000) MV EF SLOPE: 120 mm/s (70 - 150) EPSS: 0.5 cm MV E Osito: 1.09 m/s MV DecT: 168 ms MV A Osito: 0.34 m/s MV E/A Ratio: 3.25 RAP: 5.00 mmHg RVSP: 13.66 mmHg FINDINGS -------- Sinus rhythm. This was a technically difficult study with suboptimal views. The left ventricular size is normal. There is borderline concentric left ventricular hypertrophy. Overall left ventricular systolic function is mild-moderately impaired with, an EF between 40 - 45 % . Basal inferior LV wall motion is hypokinetic. Basal inferoseptal LV wall motion is hypokinetic . Mid inferior LV wall motion is hypokinetic. Apical anterior LV wall motion is hypokinetic. Apical lateral LV wall motion is hypokinetic. Apical inferior LV wall motion is hypokinetic. A pical septum LV wall motion is hypokinetic. The RV was not well visualized. The left atrial size is normal. The right atrium was not well visualized. Lumason used The aortic valve is trileaflet and appears structurally normal. Mild mitral regurgitation is present. Mild tricuspid regurgitation present. Right ventricular systolic pressure is normal at < 35 mmHg. The pulmonic valve was not well visualized. The aortic root is dilated measuring 3.9 cm CONCLUSIONS -------- 1. Sinus rhythm. 2. This was a technically difficult study with suboptimal views. 3. The left ventricular size is normal. 4. There is borderline concentric left ventricular hypertrophy. 5. Overall left ventricular systolic function is mild-moderately impaired with, an EF between 40 - 45 %. 6. Basal inferior LV wall motion is hypokinetic. 7. Basal inferoseptal LV wall motion is hypokinetic. 8. Mid inferior LV wall motion is hypokinetic. 9. Apical anterior LV wall motion is hypokinetic. 10. Apical lateral LV wall motion is hypokinetic. 11. Apical inferior LV wall motion is hypokinetic. 12. Apical septum LV wall motion is hypokinetic. 13. The RV was not well visualized. 14. The left atrial size is normal. 15. The right atrium was not well visualized. 16. Lumason used 17. The aortic valve is trileaflet and appears structurally normal. 18. Mild mitral regurgitation is present. 19. Mild tricuspid regurgitation present. 20. Right ventricular systolic pressure is normal at < 35 mmHg. 21. The pulmonic valve was not well visualized. 22. The aortic root is dilated measuring 3.9 cm PAPER PATTERN INSPECTOR: Aline Agosto RDCS
[2019-01-16] MEDS: FUROSEMIDE 10 MG/ML 4 ML VIAL IV SCH ×2 (12:11→21:26)
[2019-01-16 14:35] VITALS: BMI 35.6
[2019-01-16] MEDS: AZITHROMYCIN 500 MG TAB PO SCH (16:14)
[2019-01-16 16:57] LABS: Glucose,Whole Blood 162 mg/dL (75-99)
[2019-01-16 18:03] LABS: Glucose,Whole Blood 265 mg/dL (75-99)
[2019-01-16 21:04] LABS: Glucose,Whole Blood 236 mg/dL (75-99)
[2019-01-16] MEDS: MELATONIN 3 MG TABLET PO SCH (21:25)
[2019-01-16] MEDS: PRAVASTATIN SODIUM 40 MG TAB PO SCH (21:25)
[2019-01-16] MEDS: MONTELUKAST 10 MG TAB PO SCH (21:25)
[2019-01-16] MEDS: ESCITALOPRAM 10 MG TAB PO SCH (21:26)
[2019-01-16] MEDS: INSULIN DETEMIR (LEVEMIR) 100 UNIT/ML SYR SQ SCH (21:26)
[2019-01-16] MEDS: METOPROLOL TARTRATE 25 MG TAB PO SCH (21:27)
--- NOTE | 2019-01-16 23:01 | CONS ---
CONSULTATION PULMONARY/CRITICAL CARE CONSULTATION: DATE OF SERVICE: 01/16/2019 This is an 83-year-old male who sees Dr. Luis Quesada as his primary and sees my partner Dr. Sanabria for his underlying COPD. He presented to the emergency room with complaints of weakness. He also had fever, shortness of breath, chest congestion and cough. The patient was seen in the emergency room and admitted with a diagnosis of COPD exacerbation and possible pneumonia as well as congestive heart failure. I did tell the patient today that he would probably be treated for a host of those things because oftentimes in patients the shortness of breath is multifactorial. Based on my evaluation of the patient, I thought most of his issues were cardiac as opposed to pulmonary, but certainly he likely has both processes going on. He currently feels much better now than he did when he first came in. He is wearing nasal oxygen. His medications are reviewed. Appropriate medications have been started. He was seen by his primary care physician. HOME MEDICATIONS: His home medications include: 1. Insulin. 2. Singulair. 3. Magnesium. 4. Pravastatin. 5. Fish oil. 6. Tylenol. 7. Symbicort. 8. Lasix. 9. DuoNeb. 10.Lisinopril. 11.Aldactone. 12.Lexapro. 13.Vitamin B12. 14.Bactrim. 15.Amlodipine. 16.He is also on Protonix. ALLERGIES: He has MULTIPLE ALLERGIES. The list is actually too long to go through but includes: 1. PENICILLIN. 2. LIPITOR. 3. KLONOPIN. 4. CODEINE. 5. HALDOL. 6. DILAUDID. 7. RITALIN. 8. MORPHINE. 9. PROPOFOL. 10.SEROQUEL. 11.SULFA ANTIBIOTICS. 12.VANCOMYCIN. 13.ATIVAN. PAST MEDICAL HISTORY: His past medical history is extensive also and includes: 1. Atrial fibrillation. 2. CAD. 3. Heart failure. 4. COPD. 5. CVA. 6. Diabetes. 7. GI bleed. 8. Hyperlipidemia. 9. Hypertension. 10.Myocardial infarction. 11.DJD. 12.BPH. 13.Sleep apnea syndrome. 14.He also has a history of chronic anemia requiring iron transfusions. 15.Cellulitis of the lower extremities. 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 18.Partial pancreatectomy. 19.Hiatal hernia. 20.Right great toe infection/ulcer. SURGICAL HISTORY: Surgical history includes, among other things: 1. Bypass grafting. 2. Heart catheterization. 3. Partial left nephrectomy. 4. Distal pancreatectomy. 5. Splenectomy. 6. EGD. 7. Colonoscopy. 8. Deviated nasal septum surgery. 9. Right carpal tunnel release. 10.Bilateral cataract surgery. 11.Some laser eye surgery. 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 SOCIAL HISTORY: Social history is apparently negative for tobacco use, although he carries with him a diagnosis of COPD. It may in fact be asthma or some sort of occupational lung disease. He denies any alcohol use or illicit drug use. FAMILY HISTORY: Family history is positive for father with myocardial infarction and mother with COPD. REVIEW OF SYSTEMS: CONSTITUTIONAL: Weakness. NEUROLOGIC: Negative. HEENT: Negative. CARDIOVASCULAR: Negative. PULMONARY: Shortness of breath, minimal cough. GI: Negative. : Negative. RHEUMATOLOGIC: Negative. IMMUNOLOGIC: Negative. ENDOCRINOLOGIC: Negative. DERMATOLOGIC: Negative. PHYSICAL EXAMINATION: VITAL SIGNS: Current vital signs are reviewed. His temperature is 98.3, heart rate 80, respiratory rate 18, blood pressure 133/62, mean 85, 3-liter saturation 95%. GENERAL: Appears in no acute distress. HEENT: HEENT examination is grossly unremarkable. Nasal oxygen in place. NECK: Supple. Full range of motion. No adenopathy. Neck veins are not distended. CARDIOVASCULAR: Cardiovascular examination reveals regular rhythm and rate. Heart sounds are distant. No S3, S4 or murmur. S1, S2 normal. LUNGS: Bibasilar crackles. There are a few scattered rhonchi. No distinct wheezes. ABDOMEN: Soft but distended. EXTREMITIES: Intact. Mild edema. SKIN: Without rash. NEUROLOGIC: Neurologic examination is brief but nonfocal. IMAGING/LABS: Chest x-ray done on January 15 shows elevated right hemidiaphragm which is chronic in nature. There are some peribronchial changes suggestive of bronchitis. Repeat chest x- ray on January 16 shows a possible infiltrate at the right diaphragm and some atelectasis at the right lung base. Lab data reviewed. White count 21.8, hemoglobin 9.3, hematocrit 29.3, platelet count 428,000. PT, INR, PTT normal. Sodium 129, potassium 5.5, chloride 93, CO2 21. Anion gap is 15. BUN and creatinine were 35 and 1.56. Troponin was 0.055. N-terminal proBNP 2630. TSH 0.221. Lactic acid 1.5. Urine is negative. Influenza studies were negative. ASSESSMENT: 1. Shortness of breath, likely multifactorial, in part related to congestive heart failure as well as possible underlying acute bronchitis/pneumonia. 2. History of atrial fibrillation. 3. Coronary artery disease with previous bypass grafting. 4. History of congestive heart failure. 5. Possible underlying asthma. 6. Lifelong nontobacco use. 7. Cerebrovascular accident. 8. Diabetes mellitus. 9. Gastrointestinal bleed. 10.Hyperlipidemia. 11.History of hypertension. 12.History of myocardial infarction. 13.Degenerative joint disease. 14.History of sleep apnea syndrome, nontolerant of CPAP. 15.Previous history of partial left nephrectomy for renal cell carcinoma with associated splenectomy and distal pancreatectomy. 16.Multiple other medical problems and comorbidities. PLAN: Medications are reviewed. The patient appears to be relatively stable. He may have underlying asthma rather than COPD, as he is a lifelong nonsmoker. Will make sure his medications are appropriate. He does not appear to have a significant or overwhelming infection. His primary issue may be fluid overload/heart failure more than anything else. Will continue to follow. Additional recommendations and suggestions are forthcoming. MMODL / IJN: [id number] /
--- NOTE | 2019-01-16 23:02 | P.CONS ---
History of Present Illness - Reason for Consult Consult date: 01/16/19 chronic anemia, leukocytosis, h/o renal cell ca - History of Present Illness Mr Carson is a pleasant WM, with a complicated PMH, initially seen in consult on 06/08/13 at [facility]. He had a h/o multiple LE infections, with an admission for MRSA cellulitis and sepsis in 03/03. He had been c/o pain in the left flank and left upper abdominal area off and on for a few months. This had become more persistent and severe ( ) at times. He presented to the hospital, where a CT scan showed a 3.8 cm pancreatic tail mass, as well as a 3.2 cm left renal mass. He also had a fever of 101+. He was thus seen in consult by Dr Groves. On evaluation, it appeared that his pain was actually originating in the mid back with radiation to the left flank and left anterior abdomen. The masses were felt to be non specific and unrelated to his symptoms given their location and small size. A MRI of the spins along with MRI abdomen were ordered. The MRI of the spine showed diskitis in the lower T spine. His cultures were positive for Strep agalactiae. The MRI of the abdomen could not be done as his upper body did not fit in the machine. As treament of the infection was a priority anyway, and it was possible that the pancreatic and renal findings could represent abcesses, It was recommended to proceed with antibiotic therapy per Dr Loza, and f/u in the outpatient setting. The pt completed Rocephin and was referred for a MRI to w/u the pancreas, and renal lesion. This confirmed the presence mass in the left kidney as well as a cystic mass in the tail of the pancreas with solid components not ruled out. He was referred to urology here, and subsequently on to [facility].The patient had distal Pancreatectomy, splenectomy and L nephrectomy by Dr eBst at [place] in 2014, with no malignancy identified in the pancreatic lesion. He was however found to have a left renal cell carcinoma, limited to the kidney, requiring no additional treatment per guidelines. 12/28/17: The patient was referred back for evaluation/treatment of anemia. He was found to have intermitently severe microcytic anemia in past few years, had 2 GI evaluations in last 2 years, lastly done by Dr Campuzano in November 2017, EGD/Colonos copy failed to identify source of blood loss. Labs were consistent with iron deficiency.He denied melena, hematochezia, hematemesis or gross Hematuria. 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 She had a small bowel capsule Endoscopy in late 2017, confirming multiple ectasias with fresh blood in jejunum. The patient had tolerance issues with by mouth iron, and did not have a good response to the same. He has thus been treated with intermittent IV iron infusions. Prior to reestablishing follow-up in 2018, he had been receiving blood transfusions intermittently. He has not required transfusion since starting IV iron.. His last infusion was in 10/07, with hemoglobin in the office in 11/07 was11.4, and normal iron stores. He is also felt to have a component of anemia of chronic kidney disease due to which hemoglobin does not totally normalize even with repeat iron stores. Agent was admitted this time with complains of progressive weakness over the last 1-2 weeks, as well as fever. This was 101+ in the ER. According to his family also. We somewhat more short of breath than his baseline. He has a history of chronic right foot infection with active toe ulcer. In the x-ray showed possible right lower lobe infiltrate. He was therefore admitted for further management and consult place. Hemoglobin on admission is in the 9-10 range. Review of Systems Constitutional: Reports fatigue, Reports fever, Reports weakness Eyes: denies blurred vision, denies pain Ears: deny: decreased hearing, ear discharge, earache, tinnitus Ears, nose, mouth and throat: Denies headache, Denies sore throat Cardiovascular: Reports shortness of breath Respiratory: Reports dyspnea Gastrointestinal: Denies abdominal pain, Denies diarrhea, Denies nausea, Denies vomiting Genitourinary: Reports as per HPI Musculoskeletal: Reports muscle weakness Integumentary: Reports wounds Neurological: Reports weakness Psychiatric: Denies anxiety, Denies depression Endocrine: Reports fatigue Hematologic/Lymphatic: Reports as per HPI Past Medical History Past Medical History: Atrial Fibrillation, Coronary Artery Disease (CAD), Cancer, Heart Failure, COPD, CVA/TIA, Diabetes Mellitus, Eye Disorder, GI Bleed, Hyperlipidemia, Hypertension, Myocardial Infarction ([place]), Osteoarthritis (OA), Prostate Disorder, Skin Disorder, Sleep Apnea/CPAP/BIPAP Additional Past Medical History / Comment(s): Anemia, blood and iron transfusions, right leg cellulitis, 2013 L renal cancer with surgery - partial nephrectomy/spleenectomy/distal portion of pancreas removed at [facility], IDDM type II, TIA, [place] unknown date, BPH, gastritis, small hiatal hernia, past discitis T9-T10, arthritis bilateral hands/back, TARIQ - does not tolerate his CPAP, past R great toe ulcer/infection. Last Myocardial Infarction Date:: UNKNOWN History of Any Multi-Drug Resistant Organisms: MRSA Year Discovered:: 11/13/17 MDRO Source:: RIGHT TOE Past Surgical History: Coronary Bypass/CABG, Heart Catheterization Additional Past Surgical History / Comment(s): Partial L nephrectomy, distal pancreatectomy, splenectomy - at [place], 2000 CABG - 3 vessel, EGD, colonoscopy, deviated septum surgery, skin/oral lesion removals, R carpal tunnel release, bilateral cataract removal, bilateral laser eye surgery for "leakage". Past Anesthesia/Blood Transfusion Reactions: Previous Problems w/ Anesthesia Additional Past Anesthesia/Blood Transfusion Reaction / Comm: 'TROUBLE COMING OUT OF ANESTHESIA' - DELUSIONAL. Patient has received blood in past without reaction. Past Psychological History: Anxiety, Depression Additional Psychological History / Comment(s): Pt resides with his spouse. He uses a cane or walker to ambulate. He no longer drives. His spouse drives and manages his medications. No current alcohol use. 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 No marijuana or illicit drug use. No alcohol use. Patient resides with his spouse. He uses a cane or walker to ambulate. He no longer drives. His pulse tries and manages his medications. 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 Past Drug Use History: None Reported - Past Family History Father Family Medical History: Myocardial Infarction ([place]) Mother Family Medical History: COPD Medications and Allergies Home Medications Medication Instructions Recorded Confirmed Type Insulin Detemir [Levemir Flextouch] 58 units SQ HS 12/21/14 01/15/19 History Montelukast [Singulair] 10 mg PO HS 12/21/14 01/15/19 History Insulin Aspart [NovoLOG Flexpen] 17 units SQ TID-W/MEALS 02/07/16 01/15/19 History Magnesium Oxide [Mag-Ox] 250 mg PO DAILY 02/07/16 01/15/19 History Pravastatin Sodium 40 mg PO HS 02/07/16 01/15/19 History [place]-3 Fatty Acids/Fish Oil [Fish 1 cap PO DAILY 08/13/16 01/15/19 History Oil 1,000 mg Softgel] Acetaminophen Tab [Tylenol] 1,000 mg PO BID 03/17/17 01/15/19 History Pantoprazole [Protonix] 40 mg PO DAILY #30 tab 03/21/17 01/15/19 Rx Insulin Aspart [NovoLOG Flexpen] See Protocol SQ AC-TID PRN 11/12/17 01/15/19 History Budesonide-Formot 160-4.5 Mcg 2 puff INHALATION RT-BID 11/13/17 01/15/19 History [Symbicort 160-4.5 Mcg Inhaler] Furosemide [Lasix] 40 mg PO DAILY 01/26/18 01/15/19 History Ipratropium-Albuterol Nebulize 3 ml INHALATION RT-QID 01/26/18 01/15/19 History [Duoneb 0.5 mg-3 mg/3 ml Soln] Lisinopril [Zestril] 5 mg PO QAM 01/26/18 01/15/19 History Spironolactone [Aldactone] 12.5 mg PO BID 01/26/18 01/15/19 History Escitalopram Oxalate [Lexapro] 10 mg PO HS 04/19/18 01/15/19 History Cyanocobalamin (Vitamin B-12) 1,000 mcg PO DIRECTED 01/15/19 01/15/19 History [Vitamin B-12] Sulfamethox-Tmp 800-160Mg [Bactrim 1 tab PO TID 01/15/19 01/15/19 History DS 800-160 mg] amLODIPine [Norvasc] 10 mg PO HS 01/15/19 01/15/19 History Allergies Allergy/AdvReac Type Severity Reaction Status Date / Time Penicillins Allergy Unknown Rash/Hives Verified 01/15/19 15:02 atorvastatin calcium Allergy Unknown Verified 01/15/19 15:02 [From Lipitor] clonazepam [From Klonopin] Allergy Hallucinati Verified 01/15/19 15:02 ons codeine Allergy Hallucinati Verified 01/15/19 15:02 ons haloperidol [From Haldol] Allergy Hallucinati Verified 01/15/19 15:02 ons haloperidol lactate Allergy Hallucinati Verified 01/15/19 15:02 [From Haldol] ons hydromorphone HCl Allergy Hallucinati Verified 01/15/19 15:02 [From Dilaudid] ons methylphenidate HCl Allergy Hallucinati Verified 01/15/19 15:02 [From Ritalin] ons morphine Allergy Hallucinati Verified 01/15/19 15:02 ons propofol Allergy Hallucinati Verified 01/15/19 15:02 ons quetiapine fumarate Allergy Hallucinati Verified 01/15/19 15:02 [From Seroquel] ons Sulfa (Sulfonamide Allergy Unknown Verified 01/15/19 15:02 Antibiotics) vancomycin Allergy Unknown Verified 01/15/19 15:02 ativan AdvReac Unknown Uncoded 01/15/19 14:17 Physical Exam Vitals: Vital Signs Temp Pulse Pulse Resp BP BP Pulse Ox 01/16/19 12:13 88 01/16/19 12:07 86 01/16/19 12:00 97.8 F 87 18 157/74 96 01/16/19 08:20 97.6 F 91 18 146/82 92 L 01/16/19 07:55 88 01/16/19 07:41 84 01/16/19 04:00 98.2 F 84 16 146/82 93 L 01/16/19 00:00 98.1 F 83 16 119/68 94 L 01/15/19 23:44 20 01/15/19 21:37 98.4 F 82 20 156/68 96 01/15/19 20:56 86 01/15/19 20:50 97 01/15/19 20:49 84 01/15/19 20:00 98.4 F 82 20 156/68 96 01/15/19 18:41 99.0 F 77 24 144/77 96 01/15/19 17:00 82 22 141/70 94 L 01/15/19 16:03 80 22 118/76 96 01/15/19 16:00 99.9 F H 01/15/19 15:00 82 12 110/76 98 01/15/19 14:39 81 22 122/59 92 L 01/15/19 14:15 101.1 F H 91 28 H 117/68 93 L Intake and Output 01/15/19 01/16/19 01/16/19 22:59 06:59 14:59 Intake Total 200 500 480 Output Total 800 400 Balance -600 100 480 Intake: Intake, IV Titration 400 Amount Sodium Chloride 0.9% 1, 400 000 ml @ 100 mls/hr IV . Q10H STA Rx#:[id number] Oral 200 100 480 Output: Urine 800 400 Other: Voiding Method Bedside Commode Bedside Commode Bedside Commode Urinal Urinal Urinal # Voids 2 1 Weight 109.7 kg - Constitutional General appearance: no acute distress - EENT Eyes: EOMI, PERRLA ENT: hearing grossly normal, normal oropharynx - Neck Neck: no lymphadenopathy Thyroid: bilateral: normal size - Respiratory Respiratory: bilateral: diminished - Cardiovascular Rhythm: regular Heart sounds: normal: S1, S2 - Gastrointestinal General gastrointestinal: normal bowel sounds, soft - Integumentary Integumentary: normal - Neurologic Neurologic: CNII-XII intact - Musculoskeletal Musculoskeletal: generalized weakness, strength equal bilaterally - Psychiatric Psychiatric: A&O x's 3, appropriate affect Results CBC & Chem 7: 01/15/19 14:20 01/15/19 14:20 Labs: Abnormal Lab Results - Last 24 Hours (Table) 01/15/19 01/15/19 01/15/19 Range/Units 14:20 14:20 14:20 WBC 21.8 H (3.8-10.6) k/uL RBC 3.67 L (4.30-5.90) m/uL Hgb 9.3 L (13.0-17.5) gm/dL Hct 29.3 L (39.0-53.0) % MCV 79.8 L (80.0-100.0) fL RDW 16.8 H (11.5-15.5) % Neutrophils # 19.3 H (1.3-7.7) k/uL Lymphocytes # 0.8 L (1.0-4.8) k/uL Monocytes # 1.3 H (0-1.0) k/uL Sodium 129 L (137-145) mmol/L Potassium 5.5 H (3.5-5.1) mmol/L Chloride 93 L (98-107) mmol/L Carbon Dioxide 21 L (22-30) mmol/L BUN 35 H (9-20) mg/dL Creatinine 1.56 H (0.66-1.25) mg/dL Glucose 328 H (74-99) mg/dL POC Glucose (mg/dL) (75-99) mg/dL Plasma Lactic Acid Dean 3.8 H* (0.7-2.0) mmol/L Troponin I (0.000-0.034) ng/mL TSH 0.221 L (0.465-4.680) mIU/L Urine Protein (Negative) Urine Glucose (UA) (Negative) 01/15/19 01/15/19 01/15/19 Range/Units 14:20 16:18 17:58 WBC (3.8-10.6) k/uL RBC (4.30-5.90) m/uL Hgb (13.0-17.5) gm/dL Hct (39.0-53.0) % MCV (80.0-100.0) fL RDW (11.5-15.5) % Neutrophils # (1.3-7.7) k/uL Lymphocytes # (1.0-4.8) k/uL Monocytes # (0-1.0) k/uL Sodium (137-145) mmol/L Potassium (3.5-5.1) mmol/L Chloride (98-107) mmol/L Carbon Dioxide (22-30) mmol/L BUN (9-20) mg/dL Creatinine (0.66-1.25) mg/dL Glucose (74-99) mg/dL POC Glucose (mg/dL) 262 H (75-99) mg/dL Plasma Lactic Acid Dean (0.7-2.0) mmol/L Troponin I 0.055 H* (0.000-0.034) ng/mL TSH (0.465-4.680) mIU/L Urine Protein Trace H (Negative) Urine Glucose (UA) 3+ H (Negative) 01/15/19 01/16/19 01/16/19 Range/Units 21:15 06:41 11:39 WBC (3.8-10.6) k/uL RBC (4.30-5.90) m/uL Hgb (13.0-17.5) gm/dL Hct (39.0-53.0) % MCV (80.0-100.0) fL RDW (11.5-15.5) % Neutrophils # (1.3-7.7) k/uL Lymphocytes # (1.0-4.8) k/uL Monocytes # (0-1.0) k/uL Sodium (137-145) mmol/L Potassium (3.5-5.1) mmol/L Chloride (98-107) mmol/L Carbon Dioxide (22-30) mmol/L BUN (9-20) mg/dL Creatinine (0.66-1.25) mg/dL Glucose (74-99) mg/dL POC Glucose (mg/dL) 297 H 198 H 231 H (75-99) mg/dL Plasma Lactic Acid Dean (0.7-2.0) mmol/L Troponin I (0.000-0.034) ng/mL TSH (0.465-4.680) mIU/L Urine Protein (Negative) Urine Glucose (UA) (Negative) Microbiology - Last 24 Hours (Table) 01/15/19 16:18 Urine Culture - Preliminary Urine,Voided Chest x-ray: report reviewed Assessment and Plan (1) Anemia Narrative/Plan: The patient is currently being followed for anemia, which is due to iron deficiency from chronic blood loss. As noted in the HPI the source appears to be small bowel arteriovenous malformation related chronic losses. The patient has been doing reasonably well with IV iron. Hemoglobin has dropped this admission to 9.3 from 11.4 in 11/07. A component of the drop could be due to his new inflammation/infection, while his known etiology is a main differential diagnosis. At this time hemoglobin is in a safe range and no supplementation as required. Check iron studies. If these have declined, the patient will receive repeat IV iron once infection has been adequately treated. The family were advised that IV iron is generally avoided in the setting of acute infection. In the meantime continue to monitor counts and transfuse if needed. Current Visit: No Status: Acute Code(s): D64.9 - ANEMIA, UNSPECIFIED SNOMED Code(s): 800063445 (2) Renal cell cancer Narrative/Plan: The patient had resection of his left renal cell cancer in 10/03. The tumor was contained within the kidney. According to guidelines, no adjuvant treatment would be recommended in this situation. The patient has no clinical evidence of recurrence. Current Visit: Yes Status: Acute Code(s): C64.9 - MALIGNANT NEOPLASM OF UNSP KIDNEY, EXCEPT RENAL PELVIS SNOMED Code(s): 445510802 (3) Community acquired pneumonia Narrative/Plan: Deferred to the admitting service for further treatment. Current Visit: Yes Status: Acute Code(s): J18.9 - PNEUMONIA, UNSPECIFIED ORGANISM SNOMED Code(s): 065517861
[2019-01-16 23:03] LABS: Glucose,Whole Blood 214 mg/dL (75-99)
[2019-01-17 06:20] LABS: Glucose,Whole Blood 90 mg/dL (75-99)
[2019-01-17 06:39] LABS: Calcium 9.4 mg/dL (8.4-10.2); Potassium 4.6 mmol/L (3.5-5.1)
[2019-01-17] MEDS: INSULIN ASPART (NovoLOG) 100 UNIT/ML VIAL SQ SCH ×7 (06:40→21:45)
[2019-01-17] MEDS: PANTOPRAZOLE 40 MG TABLET PO SCH (06:42)
[2019-01-17] MEDS: IPRATROPIUM-ALBUTEROL 3 ML NEB INHALATION SCH ×4 (07:28→20:59)
[2019-01-17] MEDS: SYMBICORT 160-4.5 MCG INHALER INHALATION SCH ×2 (07:28→20:59)
[2019-01-17] MEDS: FUROSEMIDE 10 MG/ML 4 ML VIAL IV SCH (08:28)
[2019-01-17] MEDS: METOPROLOL TARTRATE 25 MG TAB PO SCH ×2 (08:28→21:44)
[2019-01-17] MEDS: LISINOPRIL 5 MG TAB PO SCH (08:28)
[2019-01-17] MEDS: ACETAMINOPHEN TAB 500 MG TAB PO SCH ×2 (08:28→21:50)
[2019-01-17] MEDS: MAGNESIUM OXIDE 400 MG TAB PO SCH (08:28)
[2019-01-17] MEDS: CYANOCOBALAMIN 500 MCG TAB PO SCH (08:28)
[2019-01-17 08:53] LABS: Anisocytosis Slight; Basophils # (A) 0.1 k/uL (0-0.2); Basophils % (A) 0 %; Eosinophils # (A) 0.3 k/uL (0-0.7); Eosinophils % (A) 3 %; HCT 28.7 % (39.0-53.0); HGB 9.1 gm/dL (13.0-17.5); Hypochromasia Slight; Lymphocytes # (A) 0.9 k/uL (1.0-4.8); Lymphocytes % (A) 7 %; MCH 25.8 pg (25.0-35.0); MCHC 31.9 g/dL (31.0-37.0); MCV 80.9 fL (80.0-100.0); Mean Platelet Volume 9.6; Microcytosis Slight; Monocytes % (A) 8 %; Neutrophils # (A) 10.1 k/uL (1.3-7.7); Neutrophils % (A) 80 %; Platelet Count 415 k/uL (150-450); RBC 3.55 m/uL (4.30-5.90); RDW 16.7 % (11.5-15.5); WBC 12.7 k/uL (3.8-10.6)
[2019-01-17] MEDS ORDERED: IPRATROPIUM-ALBUTEROL 3 ML NEB INHALATION PRN (10:07)
--- NOTE | 2019-01-17 10:37 | P.HPIM ---
History of Present Illness H&P Date: 01/16/19 Chief Complaint: Fevers, fatigue, coughing This is an 83-year-old gentleman with extensive medical history of atrial fibrillation, CAD, renal cancer, CHF, COPD, CVA/TIA, diabetes mellitus, hypertension, hyperlipidemia, CAD, [place], CABG, osteoarthritis deficient anemia, sleep apnea presented to the ER with complaints of increasing weakness, fevers and chills, productive cough with green sputum. T-max 101.1, WBC 21.8 ,tachypneic on admission, requiring 2 L nasal cannula to maintain O2 sats of 93% in a patient who does not wear oxygen at home.BP/HR stable. Hemoglobin on ad mission 9.3, platelets 428. Sodium 129 potassium 5.5, BUN 35, creatinine 1.56 (baseline 1.2). Hyperglycemia on admission with blood sugars in the low 300s. Troponin 0.055, BMP 2630. EKG appears to be junctional rhythm with lateral ST-T wave changes. Pro-calcitonin 0.19, TSH 0.221. UA negative. Influenza A and B not detected. Chest x-ray reporting chronic right hemidiaphragm elevation with new retrocardiac parabronchial cuffing. Denies chest pain, palpitations. Reports exertional shortness of breath. Review of Systems ROS Statement: Those systems with pertinent positive or pertinent negative responses have been documented in the HPI. ROS Other: All systems not noted in ROS Statement are negative. Past Medical History Past Medical History: Atrial Fibrillation, Coronary Artery Disease (CAD), Cancer, Heart Failure, COPD, CVA/TIA, Diabetes Mellitus, Eye Disorder, GI Bleed, Hyperlipidemia, Hypertension, Myocardial Infarction ([place]), Osteoarthritis (OA), Prostate Disorder, Skin Disorder, Sleep Apnea/CPAP/BIPAP Additional Past Medical History / Comment(s): Anemia, blood and iron transfusions, right leg cellulitis, 2014 L renal cancer with surgery - partial nephrectomy/spleenectomy/distal portion of pancreas removed at [facility], IDDM type II, TIA, [place] unknown date, BPH, gastritis, small hiatal hernia, past discitis T9-T10, arthritis bilateral hands/back, TARIQ - does not tolerate his CPAP, past R great toe ulcer/infection. Last Myocardial Infarction Date:: UNKNOWN History of Any Multi-Drug Resistant Organisms: MRSA Date of last positivie culture/infection: 11/13/17 MDRO Source:: RIGHT TOE Past Surgical History: Coronary Bypass/CABG, Heart Catheterization Additional Past Surgical History / Comment(s): Partial L nephrectomy, distal pancreatectomy, splenectomy - at , 2000 CABG - 3 vessel, EGD, colonoscopy, deviated septum surgery, skin/oral lesion removals, R carpal tunnel release, bilateral cataract removal, bilateral laser eye surgery for "leakage". Past Anesthesia/Blood Transfusion Reactions: Previous Problems w/ Anesthesia Additional Past Anesthesia/Blood Transfusion Reaction / Comment(s): 'TROUBLE COMING OUT OF ANESTHESIA' - DELUSIONAL. Patient has received blood in past without reaction. Past Psychological History: Anxiety, Depression Additional Psychological History / Comment(s): Pt resides with his spouse. He uses a cane or walker to ambulate. He no longer drives. His spouse drives and manages his medications. No current alcohol use. 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 No marijuana or illicit drug use. No alcohol use. Patient resides with his spouse. He uses a cane or walker to ambulate. He no longer drives. His pulse tries and manages his medications. 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 Past Drug Use History: None Reported - Past Family History Father Family Medical History: Myocardial Infarction ([place]) Mother Family Medical History: COPD Medications and Allergies Home Medications Medication Instructions Recorded Confirmed Type Insulin Detemir [Levemir Flextouch] 58 units SQ HS 12/21/14 01/15/19 History Montelukast [Singulair] 10 mg PO HS 12/21/14 01/15/19 History Insulin Aspart [NovoLOG Flexpen] 17 units SQ TID-W/MEALS 02/07/16 01/15/19 History Magnesium Oxide [Mag-Ox] 250 mg PO DAILY 02/07/16 01/15/19 History Pravastatin Sodium 40 mg PO HS 02/07/16 01/15/19 History [place]-3 Fatty Acids/Fish Oil [Fish 1 cap PO DAILY 08/13/16 01/15/19 History Oil 1,000 mg Softgel] Acetaminophen Tab [Tylenol] 1,000 mg PO BID 03/17/17 01/15/19 History Pantoprazole [Protonix] 40 mg PO DAILY #30 tab 03/21/17 01/15/19 Rx Insulin Aspart [NovoLOG Flexpen] See Protocol SQ AC-TID PRN 11/12/17 01/15/19 History Budesonide-Formot 160-4.5 Mcg 2 puff INHALATION RT-BID 11/13/17 01/15/19 History [Symbicort 160-4.5 Mcg Inhaler] Furosemide [Lasix] 40 mg PO DAILY 01/26/18 01/15/19 History Ipratropium-Albuterol Nebulize 3 ml INHALATION RT-QID 01/26/18 01/15/19 History [Duoneb 0.5 mg-3 mg/3 ml Soln] Lisinopril [Zestril] 5 mg PO QAM 01/26/18 01/15/19 History Spironolactone [Aldactone] 12.5 mg PO BID 01/26/18 01/15/19 History Escitalopram Oxalate [Lexapro] 10 mg PO HS 04/19/18 01/15/19 History Cyanocobalamin (Vitamin B-12) 1,000 mcg PO DIRECTED 01/15/19 01/15/19 History [Vitamin B-12] Sulfamethox-Tmp 800-160Mg [Bactrim 1 tab PO TID 01/15/19 01/15/19 History DS 800-160 mg] amLODIPine [Norvasc] 10 mg PO HS 01/15/19 01/15/19 History Allergies Allergy/AdvReac Type Severity Reaction Status Date / Time Penicillins Allergy Unknown Rash/Hives Verified 01/15/19 15:02 atorvastatin calcium Allergy Unknown Verified 01/15/19 15:02 [From Lipitor] clonazepam [From Klonopin] Allergy Hallucinati Verified 01/15/19 15:02 ons codeine Allergy Hallucinati Verified 01/15/19 15:02 ons haloperidol [From Haldol] Allergy Hallucinati Verified 01/15/19 15:02 ons haloperidol lactate Allergy Hallucinati Verified 01/15/19 15:02 [From Haldol] ons hydromorphone HCl Allergy Hallucinati Verified 01/15/19 15:02 [From Dilaudid] ons methylphenidate HCl Allergy Hallucinati Verified 01/15/19 15:02 [From Ritalin] ons morphine Allergy Hallucinati Verified 01/15/19 15:02 ons propofol Allergy Hallucinati Verified 01/15/19 15:02 ons quetiapine fumarate Allergy Hallucinati Verified 01/15/19 15:02 [From Seroquel] ons Sulfa (Sulfonamide Allergy Unknown Verified 01/15/19 15:02 Antibiotics) vancomycin Allergy Unknown Verified 01/15/19 15:02 ativan AdvReac Unknown Uncoded 01/15/19 14:17 Physical Exam Vitals: Vital Signs Temp Pulse Pulse Resp BP BP Pulse Ox 01/16/19 08:20 97.6 F 91 18 146/82 92 L 01/16/19 07:55 88 01/16/19 07:41 84 01/16/19 04:00 98.2 F 84 16 146/82 93 L 01/16/19 00:00 98.1 F 83 16 119/68 94 L 01/15/19 23:44 20 01/15/19 21:37 98.4 F 82 20 156/68 96 01/15/19 20:56 86 01/15/19 20:50 97 01/15/19 20:49 84 01/15/19 20:00 98.4 F 82 20 156/68 96 01/15/19 18:41 99.0 F 77 24 144/77 96 01/15/19 17:00 82 22 141/70 94 L 01/15/19 16:03 80 22 118/76 96 01/15/19 16:00 99.9 F H 01/15/19 15:00 82 12 110/76 98 01/15/19 14:39 81 22 122/59 92 L 01/15/19 14:15 101.1 F H 91 28 H 117/68 93 L Intake and Output 01/15/19 01/16/19 01/16/19 22:59 06:59 14:59 Intake Total 200 500 Output Total 800 400 Balance -600 100 Intake: Intake, IV Titration 400 Amount Sodium Chloride 0.9% 1, 400 000 ml @ 100 mls/hr IV . Q10H STA Rx#:[id number] Oral 200 100 Output: Urine 800 400 Other: Voiding Method Bedside Commode Bedside Commode Urinal Urinal # Voids 2 Weight 109.7 kg PHYSICAL EXAM: VITAL SIGNS: As above GENERAL: Sitting up in chair, no acute distress HEENT: Conjunctivae normal. eyes normal. Oral mucosa moist NECK: No JVD. No thyroid enlargement. No LNs CARDIOVASCULAR: S1, S2 regular. Systolic murmur RESPIRATION: Breath sounds diminished in the bases. No rhonchi, bibasilar crackles, right greater than left ABDOMEN: Obese, Soft, mildly distended, nontender . No guarding. no masses palpable. No ascites, No hepatosplenomegaly.Positive bowel sounds. LEGS: no edema. no swelling. No calf tenderness PSYCHIATRY: Alert and oriented X3, mood and affect normal. NERVOUS SYSTEM: Cranial N 2-12 grossly normal. Moves all 4 limbs. Diffuse weakness ,No focal deficits. Strength and sensation grossly intact.. Skin: no lesions, no rash Lymphatic system. No LN neck axilla or groin. Results CBC & Chem 7: 01/17/19 05:49 01/17/19 05:49 Labs: Abnormal Lab Results - Last 24 Hours (Table) 01/15/19 01/15/19 01/15/19 Range/Units 14:20 14:20 14:20 WBC 21.8 H (3.8-10.6) k/uL RBC 3.67 L (4.30-5.90) m/uL Hgb 9.3 L (13.0-17.5) gm/dL Hct 29.3 L (39.0-53.0) % MCV 79.8 L (80.0-100.0) fL RDW 16.8 H (11.5-15.5) % Neutrophils # 19.3 H (1.3-7.7) k/uL Lymphocytes # 0.8 L (1.0-4.8) k/uL Monocytes # 1.3 H (0-1.0) k/uL Sodium 129 L (137-145) mmol/L Potassium 5.5 H (3.5-5.1) mmol/L Chloride 93 L (98-107) mmol/L Carbon Dioxide 21 L (22-30) mmol/L BUN 35 H (9-20) mg/dL Creatinine 1.56 H (0.66-1.25) mg/dL Glucose 328 H (74-99) mg/dL POC Glucose (mg/dL) (75-99) mg/dL Plasma Lactic Acid Dean 3.8 H* (0.7-2.0) mmol/L Troponin I (0.000-0.034) ng/mL TSH 0.221 L (0.465-4.680) mIU/L Urine Protein (Negative) Urine Glucose (UA) (Negative) 01/15/19 01/15/19 01/15/19 Range/Units 14:20 16:18 17:58 WBC (3.8-10.6) k/uL RBC (4.30-5.90) m/uL Hgb (13.0-17.5) gm/dL Hct (39.0-53.0) % MCV (80.0-100.0) fL RDW (11.5-15.5) % Neutrophils # (1.3-7.7) k/uL Lymphocytes # (1.0-4.8) k/uL Monocytes # (0-1.0) k/uL Sodium (137-145) mmol/L Potassium (3.5-5.1) mmol/L Chloride (98-107) mmol/L Carbon Dioxide (22-30) mmol/L BUN (9-20) mg/dL Creatinine (0.66-1.25) mg/dL Glucose (74-99) mg/dL POC Glucose (mg/dL) 262 H (75-99) mg/dL Plasma Lactic Acid Dean (0.7-2.0) mmol/L Troponin I 0.055 H* (0.000-0.034) ng/mL TSH (0.465-4.680) mIU/L Urine Protein Trace H (Negative) Urine Glucose (UA) 3+ H (Negative) 01/15/19 01/16/19 Range/Units 21:15 06:41 WBC (3.8-10.6) k/uL RBC (4.30-5.90) m/uL Hgb (13.0-17.5) gm/dL Hct (39.0-53.0) % MCV (80.0-100.0) fL RDW (11.5-15.5) % Neutrophils # (1.3-7.7) k/uL Lymphocytes # (1.0-4.8) k/uL Monocytes # (0-1.0) k/uL Sodium (137-145) mmol/L Potassium (3.5-5.1) mmol/L Chloride (98-107) mmol/L Carbon Dioxide (22-30) mmol/L BUN (9-20) mg/dL Creatinine (0.66-1.25) mg/dL Glucose (74-99) mg/dL POC Glucose (mg/dL) 297 H 198 H (75-99) mg/dL Plasma Lactic Acid Dean (0.7-2.0) mmol/L Troponin I (0.000-0.034) ng/mL TSH (0.465-4.680) mIU/L Urine Protein (Negative) Urine Glucose (UA) (Negative) Microbiology - Last 24 Hours (Table) 01/15/19 16:18 Urine Culture - Preliminary Urine,Voided Thrombosis Risk Factor Assmnt - Choose All That Apply Any of the Below Risk Factors Present?: Yes Each Factor Represents 1 point: Obesity (BMI >25) Other Risk Factors: Yes Each Risk Factor Represents 3 Points: Age 75 years or older Other congenital or acquired thrombophilia - If yes, enter type in comment: No Thrombosis Risk Factor Assessment Total Risk Factor Score: 4 Thrombosis Risk Factor Assessment Level: Moderate Risk Assessment and Plan Assessment: Shortness of breath, multifactorial secondary to acute community-acquired pneumonia right lower lobe with purulent tracheobronchitis, possible bronchitis, possible mild CHF exacerbation -Leukocytosis secondary to the above -Possible mild component of acute on chronic systolic CHF, EF 45-50% -Hypoxic respiratory failure, secondary to pneumonia and possible mild CHF -COPD -Acute on chronic renal failure, stage III. Baseline 1.2. 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 11.4 on prior admission. -Obstructive sleep apnea, unable to tolerate CPAP -Moderate mitral regurgitation -Moderate tricuspid regurgitation -Severe pulmonary hypertension -Paroxysmal atrial fibrillation, not on long-term anticoagulation secondary to GI bleed November 2017 -CAD, history of [place], CABG -Diabetes mellitus type 2, uncontrolled with hyperglycemia -History of renal cancer 2013 with partial nephrectomy, splenectomy and resection of distal portion of the pancreas -BPH -Hypertension -Hyperlipidemia -History of CVA,TIA Plan: Continue current medication regime ,monitoring and symptomatic treatment. Sputum and blood cultures ordered. Maintain gentle IV fluid hydration, IV antibiotics of Rocephin, Zithromax, nebulized bronchodilators-both scheduled and prn, LABA. Diuretics as per cardiology. PT/OT consulted Home meds have been reviewed and resumed. GI prophylaxis in place with Protonix. Pulmonary, Oncology consulted. Further recommendations to follow. The impression and plan of care has been dictated as directed. : I performed a history and examination of this patient, discussed the same with the dictator. I agree with the dictator's note ,documented as a scribe. Any a dditional findings or plans will be noted. Time taken: 35 min
--- NOTE | 2019-01-17 10:52 | P.PN ---
Subjective Progress Note Date: 01/17/19 Principal diagnosis: Dyspnea, multifactorial, acute exacerbation of systolic congestive heart failure and underlying acute bronchitis The patient is seen today 01/17/2019 in follow-up on the selective care unit. He is currently sitting up in a chair at the bedside. Awake and alert in no acute distress. He is breathing a bit easier today as compared to yesterday. Echocardiogram revealed impaired left ventricular systolic function with ejection fraction 40-45%. He is breathing a bit easier today as compared to yesterday. Maintaining O2 saturations in the 90s on room air. He is afebrile. Hemodynamically stable. Blood culture reveals no growth to date. Urine culture reveals no growth. White count 12.7. Hemoglobin 9.1. Creatinine 1.36. He is currently on Lasix 40 mg IV push every 12 hours. He remains on DuoNeb inhalations, Symbicort, antibiotics in the form of ceftriaxone and Zithromax. Objective - Vital Signs Vital signs: Vital Signs Temp 98 F 01/17/19 08:00 Pulse 78 01/17/19 08:00 Resp 18 01/17/19 08:00 BP 140/67 01/17/19 08:00 Pulse Ox 92 L 01/17/19 08:00 Intake & Output 01/16/19 01/17/19 01/17/19 18:59 06:59 18:59 Intake Total 1180 120 358 Output Total 200 Balance 1180 -80 358 Weight 109.7 kg 108 kg Intake: Intake, IV Titration 100 Amount cefTRIAXone 1 gm In 100 Sodium Chloride 0.9% 50 ml @ 100 mls/hr IVPB Q24HR COUNTS INCLUDE 234 BEDS AT THE [facility] Rx#:[id number] Oral 1080 120 358 Output: Urine 200 Other: Voiding Method Bedside Commode Bedside Commode Bedside Commode Urinal Urinal Urinal # Voids 1 - Exam GENERAL EXAM: Alert, active, pleasant 83-year-old gentleman, comfortable in no apparent distress. On room air. HEAD: Normocephalic. EYES: Normal reaction of pupils, equal size. NOSE: Clear with pink turbinates. THROAT: No erythema or exudates. NECK: No masses, no JVD. CHEST: No chest wall deformity. LUNGS: Equal air entry with crackles in the posterior bases, few scattered rhonchi. CVS: S1 and S2 normal with no audible murmur, regular rhythm. ABDOMEN: No hepatosplenomegaly, normal bowel sounds, no guarding or rigidity. SPINE: No scoliosis or deformity SKIN: No rashes CENTRAL NERVOUS SYSTEM: No focal deficits, tone is normal in all 4 extremities. EXTREMITIES: There is no peripheral edema. No clubbing, no cyanosis. Peripheral pulses are intact. - Labs CBC & Chem 7: 01/17/19 05:49 01/17/19 05:49 Labs: Abnormal Lab Results - Last 24 Hours (Table) 01/16/19 01/16/19 01/16/19 Range/Units 11:39 15:14 16:54 WBC (3.8-10.6) k/uL RBC (4.30-5.90) m/uL Hgb (13.0-17.5) gm/dL Hct (39.0-53.0) % RDW (11.5-15.5) % Neutrophils # (1.3-7.7) k/uL Lymphocytes # (1.0-4.8) k/uL Sodium (137-145) mmol/L BUN (9-20) mg/dL Creatinine (0.66-1.25) mg/dL POC Glucose (mg/dL) 231 H 162 H (75-99) mg/dL Procalcitonin 0.19 H (0.02-0.09) ng/mL 01/16/19 01/16/19 01/16/19 Range/Units 18:02 21:03 23:02 WBC (3.8-10.6) k/uL RBC (4.30-5.90) m/uL Hgb (13.0-17.5) gm/dL Hct (39.0-53.0) % RDW (11.5-15.5) % Neutrophils # (1.3-7.7) k/uL Lymphocytes # (1.0-4.8) k/uL Sodium (137-145) mmol/L BUN (9-20) mg/dL Creatinine (0.66-1.25) mg/dL POC Glucose (mg/dL) 265 H 236 H 214 H (75-99) mg/dL Procalcitonin (0.02-0.09) ng/mL 01/17/19 01/17/19 Range/Units 05:49 05:49 WBC 12.7 H (3.8-10.6) k/uL RBC 3.55 L (4.30-5.90) m/uL Hgb 9.1 L (13.0-17.5) gm/dL Hct 28.7 L (39.0-53.0) % RDW 16.7 H (11.5-15.5) % Neutrophils # 10.1 H (1.3-7.7) k/uL Lymphocytes # 0.9 L (1.0-4.8) k/uL Sodium 134 L (137-145) mmol/L BUN 30 H (9-20) mg/dL Creatinine 1.36 H (0.66-1.25) mg/dL POC Glucose (mg/dL) (75-99) mg/dL Procalcitonin (0.02-0.09) ng/mL Microbiology - Last 24 Hours (Table) 01/15/19 16:18 Urine Culture - Final Urine,Voided 01/15/19 14:20 Blood Culture - Preliminary Blood No Growth after 24 hours Assessment and Plan Assessment: Impression: #1 Acute exacerbation of chronic systolic congestive heart failure. #2 Acute tracheobronchitis with no clear evidence of pneumonia. #3 History of anemia. #4 Morbid obesity. #5 Atrial fibrillation. #6 Coronary artery disease previous coronary artery bypass grafting. #7 Diabetes mellitus. #8 Hyperlipidemia. #9 Hypertension. #10 Obstructive sleep apnea. #11 History of left renal cancer with partial nephrectomy/splenectomy and distal portion of pancreas removed. Plan: The patient was seen and evaluated by Dr. Rubio. He is currently stable from the pulmonary standpoint. We'll continue with his current medications. Continue diuretics. Increase his activity as tolerated. We'll continue to follow. I, the cosigning physician, performed a history & physical examination of the patient. Lungs sounds with basilar crackles. Maintaining good O2 saturations in the 90s on room air. I discussed the assessment and plan of care with my nurse practitioner, Belinda Sarah. I attest to the above note as dictated by her.
[2019-01-17 11:34] LABS: Glucose,Whole Blood 241 mg/dL (75-99)
[2019-01-17 12:49] LABS: Iron Saturation 3.55 (15.00-50.00)
--- NOTE | 2019-01-17 13:47 | PN ---
PROGRESS NOTE Mr. Carson is an 83-year-old male who presented with symptoms of progressive dyspnea. He has a history of coronary artery disease as well as paroxysmal atrial fibrillation. He is feeling better today. He denies any symptoms of chest discomfort. He denies any dizziness. He continues to be weak. He has been having cough with productive sputum on presentation. He denies any nausea or vomiting. He underwent an echocardiogram and that revealed an ejection fraction 40% to 45% with segmental wall motion abnormality with mild mitral and tricuspid regurgitation. He continues to be at this time on Zithromax, furosemide 40 mg IV q.12 hours, lisinopril 5 mg daily, metoprolol tartrate 25 mg twice a day and pravastatin 40 mg daily. PHYSICAL EXAMINATION: Blood pressure 125/60 with the heart rate in the 60s. LUNGS: No wheezes or rales. HEART: Irregular, irregular, S1, S2. No S3. No rub. No gallop with a systolic murmur. No diastolic murmur. ABDOMEN: Soft, obese, nontender. EXTREMITIES: With trace to 1+ edema bilaterally. IMPRESSION: 1. Symptoms of progressive fatigue and dyspnea with findings consistent with bronchitis. 2. Mild congestive heart failure in a patient with known history of mild impairment of left ventricular systolic function. 3. History of atrial fibrillation. 4. History of coronary artery disease, status post coronary artery bypass grafting. 5. History of diabetes. 6. Hypertension. 7. Hyperlipidemia. 8. History of nephrectomy for renal cancer. RECOMMENDATION: From the cardiac standpoint, I will continue present therapy except switch him to oral diuretic. His renal functions are 30 and 1.36, which improved compared with yesterday. His potassium is 4.6. We will increase his level of activity gradually and depending on his progress, further recommendation will be made. MMODL / IJN: [id number] /
--- NOTE | 2019-01-17 13:53 | P.PN ---
Subjective Progress Note Date: 01/17/19 This is an 83-year-old gentleman with extensive medical history of atrial fibrillation, CAD, renal cancer, CHF, COPD, CVA/TIA, diabetes mellitus, hypertension, hyperlipidemia, CAD, FL, CABG, osteoarthritis deficient anemia, sleep apnea presented to the ER with complaints of increasing weakness, fevers and chills, productive cough with green sputum. T-max 101.1, WBC 21.8 ,tachypneic on admission, requiring 2 L nasal cannula to maintain O2 sats of 93% in a patient who does not wear oxygen at home.BP/HR stable. Hemoglobin on admission 9.3, platelets 428. Sodium 129 potassium 5.5, BUN 35, creatinine 1.56 (baseline 1.2). Hyperglycemia on admission with blood sugars in the low 300s. Troponin 0.055, BMP 2630. EKG appears to be junctional rhythm with lateral ST-T wave changes. Pro-calcitonin 0.19, TSH 0.221. UA negative. Influenza A and B not detected. Chest x-ray reporting chronic right hemidiaphragm elevation with new retrocardiac parabronchial cuffing. Denies chest pain, palpitations. R eports exertional shortness of breath. 01/17/2019 diuresing well on Lasix IV push with 24-hour I&O reflecting a negative fluid balance. Creatinine improving, down to 1.36. Maintained on nebulized bronchodilators, Rocephin, Zithromax, Symbicort .Breathing easier today, maintaining O2 sats in the 90s on room air .afebrile, WBC down to 12.7 .echo reporting EF 40-45%. Sodium improved up to 134 Objective - Vital Signs Vital signs: Vital Signs Temp 98 F 01/17/19 08:00 Pulse 78 01/17/19 08:00 Resp 18 01/17/19 08:00 BP 140/67 01/17/19 08:00 Pulse Ox 92 L 01/17/19 08:00 Intake & Output 01/16/19 01/17/19 01/17/19 18:59 06:59 18:59 Intake Total 1180 120 358 Output Total 200 Balance 1180 -80 358 Weight 109.7 kg 108 kg Intake: Intake, IV Titration 100 Amount cefTRIAXone 1 gm In 100 Sodium Chloride 0.9% 50 ml @ 100 mls/hr IVPB Q24HR [facility] Rx#:[id number] Oral 1080 120 358 Output: Urine 200 Other: Voiding Method Bedside Commode Bedside Commode Bedside Commode Urinal Urinal Urinal # Voids 1 - Exam PHYSICAL EXAM: VITAL SIGNS: As above GENERAL: Sitting up in chair, no acute distress HEENT: Conjunctivae normal. eyes normal. Oral mucosa moist NECK: No JVD. No thyroid enlargement. No LNs CARDIOVASCULAR: S1, S2 regular. Systolic murmur RESPIRATION: Breath sounds diminished in the bases. Occasional rhonchi, bibasilar crackles, right greater than left ABDOMEN: Obese, Soft, mildly distended, nontender . No guarding. no masses palpable. Positive bowel sounds. EXTREMITIES: Bilateral lower extremities -no edema. no swelling. No calf tenderness. Right foot second toe with diabetic wound draining purulent drainage, reddened, inflamed, with increased warmth. Positive DP. PSYCHIATRY: Alert and oriented X3, mood and affect normal. NERVOUS SYSTEM: Cranial N 2-12 grossly normal. Moves all 4 limbs. Diffuse weakness ,No focal deficits. Strength and sensation grossly intact.. Microbiology 01/15/19 16:18 Urine,Voided Urine Culture - Final 01/15/19 14:20 Blood Blood Culture - Preliminary No Growth after 24 hours - Labs CBC & Chem 7: 01/17/19 05:49 01/17/19 05:49 Labs: Abnormal Lab Results - Last 24 Hours (Table) 01/16/19 01/16/19 01/16/19 Range/Units 11:39 15:14 16:54 WBC (3.8-10.6) k/uL RBC (4.30-5.90) m/uL Hgb (13.0-17.5) gm/dL Hct (39.0-53.0) % RDW (11.5-15.5) % Neutrophils # (1.3-7.7) k/uL Lymphocytes # (1.0-4.8) k/uL Sodium (137-145) mmol/L BUN (9-20) mg/dL Creatinine (0.66-1.25) mg/dL POC Glucose (mg/dL) 231 H 162 H (75-99) mg/dL Procalcitonin 0.19 H (0.02-0.09) ng/mL 01/16/19 01/16/19 01/16/19 Range/Units 18:02 21:03 23:02 WBC (3.8-10.6) k/uL RBC (4.30-5.90) m/uL Hgb (13.0-17.5) gm/dL Hct (39.0-53.0) % RDW (11.5-15.5) % Neutrophils # (1.3-7.7) k/uL Lymphocytes # (1.0-4.8) k/uL Sodium (137-145) mmol/L BUN (9-20) mg/dL Creatinine (0.66-1.25) mg/dL POC Glucose (mg/dL) 265 H 236 H 214 H (75-99) mg/dL Procalcitonin (0.02-0.09) ng/mL 01/17/19 01/17/19 Range/Units 05:49 05:49 WBC 12.7 H (3.8-10.6) k/uL RBC 3.55 L (4.30-5.90) m/uL Hgb 9.1 L (13.0-17.5) gm/dL Hct 28.7 L (39.0-53.0) % RDW 16.7 H (11.5-15.5) % Neutrophils # 10.1 H (1.3-7.7) k/uL Lymphocytes # 0.9 L (1.0-4.8) k/uL Sodium 134 L (137-145) mmol/L BUN 30 H (9-20) mg/dL Creatinine 1.36 H (0.66-1.25) mg/dL POC Glucose (mg/dL) (75-99) mg/dL Procalcitonin (0.02-0.09) ng/mL Microbiology - Last 24 Hours (Table) 01/15/19 16:18 Urine Culture - Final Urine,Voided 01/15/19 14:20 Blood Culture - Preliminary Blood No Growth after 24 hours Assessment and Plan Assessment: Shortness of breath, multifactorial secondary to acute community-acquired pneumonia right lower lobe with purulent tracheobronchitis, possible bronchitis, possible mild CHF exacerbation -Leukocytosis secondary to the above -Possible mild component of acute on chronic systolic CHF, EF 45-50% -Hypoxic respiratory failure, secondary to pneumonia and possible mild CHF -COPD -Acute on chronic renal failure, stage III. Baseline 1.2. 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 11.4 on prior admission. -Obstructive sleep apnea, unable to tolerate CPAP -Moderate mitral regurgitation -Moderate tricuspid regurgitation -Severe pulmonary hypertension -Paroxysmal atrial fibrillation, not on long-term anticoagulation secondary to GI bleed November 2017 -CAD, history of FL, CABG -Diabetes mellitus type 2, uncontrolled with hyperglycemia -History of renal cancer 2013 with partial nephrectomy, splenectomy and resection of distal portion of the pancreas -BPH -Hypertension -Hyperlipidemia -History of CVA,TIA -Chronic Right foot diabetic ulcer, history of MRSA in August 2018 Plan: Continue current medication regime ,monitoring and symptomatic treatment. Initiate contact precautions, patient has history of MRSA from August 2018. Patient recently treated by Dr. Loza for her right foot: Positive for MRSA. Currently right foot second toe with purulent drainage , reddened, warmed, Dr. Loza consulted. Wound cultures ordered. Reinforce concepts of offloading with compliancy using diabetic shoes. Continue following cultures closely. Maintain IV antibiotics ,nebulized bronchodilators-both scheduled and prn, LABA. Diuretics as per cardiology. Close monitoring of renal function, electrolytes, hemoglobin with repeat labs ordered for a.m. The impression and plan of care has been dictated as directed. : I performed a history and examination of this patient, discussed the same with the dictator. I agree with the dictator's note ,documented as a scribe. Any additional findings or plans will be noted. Time taken: 35 min
[2019-01-17] MEDS: AZITHROMYCIN 500 MG TAB PO SCH (15:04)
[2019-01-17] MEDS: FLUTICASONE 50MCG/SPRAY NASAL 16GM EA NOSTRIL SCH (15:06)
[2019-01-17 17:07] LABS: Glucose,Whole Blood 96 mg/dL (75-99)
[2019-01-17 20:33] LABS: Glucose,Whole Blood 135 mg/dL (75-99)
[2019-01-17 21:34] LABS: Glucose,Whole Blood 155 mg/dL (75-99)
[2019-01-17] MEDS: PRAVASTATIN SODIUM 40 MG TAB PO SCH (21:44)
[2019-01-17] MEDS: ESCITALOPRAM 10 MG TAB PO SCH (21:45)
[2019-01-17] MEDS: INSULIN DETEMIR (LEVEMIR) 100 UNIT/ML SYR SQ SCH (21:45)
[2019-01-17] MEDS: MONTELUKAST 10 MG TAB PO SCH (21:45)
[2019-01-17] MEDS: FUROSEMIDE 40 MG TAB PO SCH (21:45)
[2019-01-17] MEDS: MELATONIN 3 MG TABLET PO SCH (21:45)
--- NOTE | 2019-01-18 00:52 | P.CONS ---
History of Present Illness - Reason for Consult Consult date: 01/17/19 - Chief Complaint weakness - History of Present Illness 83-year-old male who is history of multiple hospitalizations regarding his diabetes, relatively poor immunity due to his prior splenectomy and has medical noncompliance with resulting hyperglycemia and frequent infections. He is cared for in the outpatient setting by a visiting convertible top installer for the diabetic foot infection to the right foot. Apparently he's had this significant change of his status in the home setting where he became febrile confused and acutely ill and constantly was brought in the hospital. The patient has a history of tobacco smoking and has chronic lung disease. He did have some increasing coughing also. Because of his history of splenectomy with onset of his high- grade fever he was brought in the hospital and therapy has been initiated. With concerns to his sepsis the consult was requested. Review of Systems HEENT:Denies headache or acute visual change. Denies sinus or mouth discomforts. Denies neck stiffness or pain. Denies significant oral cavity pain. Denies difficulty on swallowing. Lungs: hronic shortness of breath without Cardiovascular: chronic shortness of breath but edvin chest pain and chest pressure does have dyspnea with exertion but does not have PND Gastrointestinal:Denies nausea, vomiting, diarrhea, constipation, hematemesis, melena, hematochezia. No no significant change of bowel habit noticed. Musculoskeletal: denies significant myalgias or arthralgias. No new joint swelling. Denies new back pain. Skin: chronic ulcer right foot Neuro: Denies headache or visual change. Denies any new onset weakness or difficulty with ambulation. Denies falls or seizures. Psychiatric:Denies anxiety or depression. Endocrine: Denies significant fatigue, denies significant weight loss or weight gain. Past Medical History Past Medical History: Atrial Fibrillation, Coronary Artery Disease (CAD), Cancer, Heart Failure, COPD, CVA/TIA, Diabetes Mellitus, Eye Disorder, GI Bleed, Hyperlipidemia, Hypertension, Myocardial Infarction (MS), Osteoarthritis (OA), Prostate Disorder, Skin Disorder, Sleep Apnea/CPAP/BIPAP Additional Past Medical History / Comment(s): Anemia, blood and iron transfusions, right leg cellulitis, 2014 L renal cancer with surgery - partial nephrectomy/spleenectomy/distal portion of pancreas removed at [facility], IDDM type II, TIA, MS unknown date, BPH, gastritis, small hiatal hernia, past discitis T9-T10, arthritis bilateral hands/back, TARIQ - does not tolerate his CPAP, past R great toe ulcer/infection. Last Myocardial Infarction Date:: UNKNOWN History of Any Multi-Drug Resistant Organisms: MRSA Year Discovered:: 11/13/17 MDRO Source:: RIGHT TOE Past Surgical History: Coronary Bypass/CABG, Heart Catheterization Additional Past Surgical History / Comment(s): Partial L nephrectomy, distal pancreatectomy, splenectomy - at 2000 CABG - 3 vessel, EGD, colonoscopy, deviated septum surgery, skin/oral lesion removals, R carpal tunnel release, bilateral cataract removal, bilateral laser eye surgery for "leakage". Past Anesthesia/Blood Transfusion Reactions: Previous Problems w/ Anesthesia Additional Past Anesthesia/Blood Transfusion Reaction / Comm: 'TROUBLE COMING OUT OF ANESTHESIA' - DELUSIONAL. Patient has received blood in past without reaction. Past Psychological History: Anxiety, Depression Additional Psychological History / Comment(s): Pt resides with his spouse. He uses a cane or walker to ambulate. He no longer drives. His spouse drives and manages his medications. No current alcohol use. 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 No marijuana or illicit drug use. No alcohol use. Patient resides with his spouse. He uses a cane or walker to ambulate. He no longer drives. His pulse tries and manages his medications. 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 Past Drug Use History: None Reported - Past Family History Father Family Medical History: Myocardial Infarction (MS) Mother Family Medical History: COPD Medications and Allergies Home Medications and Allergies Comment(s): Current Medications Acetaminophen (Tylenol Tab) 1,000 mg PO BID [facility] Last Admin: 01/17/19 21:50 Dose: Not Given Documented by: Albuterol/Ipratropium (Duoneb 0.5 Mg-3 Mg/3 Ml Soln) 3 ml INHALATION RT-QID [facility] Last Admin: 01/17/19 20:59 Dose: 3 ml Documented by: Albuterol/Ipratropium (Duoneb 0.5 Mg-3 Mg/3 Ml Soln) 3 ml INHALATION RT-Q2H PRN PRN Reason: Shortness Of Breath Or Wheezing Azithromycin (Zithromax) 500 mg PO DAILY@1600 [facility] Last Admin: 01/17/19 15:04 Dose: 500 mg Documented by: Budesonide/Formoterol Fumarate (Symbicort 160-4.5 Mcg Inhaler) 2 puff INHALATION RT-BID [facility] Last Admin: 01/17/19 20:59 Dose: 2 puff Documented by: Cyanocobalamin (Vitamin B-12) 1,000 mcg PO MoTh [facility] Last Admin: 01/17/19 08:28 Dose: 1,000 mcg Documented by: Escitalopram Oxalate (Lexapro) 10 mg PO [facility] Last Admin: 01/17/19 21:45 Dose: 10 mg Documented by: Fluticasone Propionate (Flonase Nasal Center) 2 spray EA NOSTRIL DAILY [facility] Last Admin: 01/17/19 15:06 Dose: 2 spray Documented by: Furosemide (Lasix) 40 mg PO BID [facility] Last Admin: 01/17/19 21:45 Dose: 40 mg Documented by: Ceftriaxone Sodium 1 gm/ (Sodium Chloride) 50 mls @ 100 mls/hr IVPB Q24HR [facility] Last Admin: 01/17/19 11:28 Dose: 100 mls/hr Documented by: Insulin Aspart (Novolog) 17 unit SQ TID-W/MEALS [facility] Last Admin: 01/17/19 17:28 Dose: 17 unit Documented by: Insulin Aspart (Novolog) 0 unit SQ ACHS [facility]; Protocol Last Admin: 01/17/19 21:45 Dose: 2 unit Documented by: Insulin Detemir (Levemir) 58 unit SQ [facility] Last Admin: 01/17/19 21:45 Dose: 58 unit Documented by: Lisinopril (Zestril) 5 mg PO QAM [facility] Last Admin: 01/17/19 08:28 Dose: 5 mg Documented by: Magnesium Oxide (Mag-Ox) 400 mg PO DAILY [facility] Last Admin: 01/17/19 08:28 Dose: 400 mg Documented by: Melatonin (Melatonin) 3 mg PO [facility] Last Admin: 01/17/19 21:45 Dose: 3 mg Documented by: Metoprolol Tartrate (Lopressor) 25 mg PO BID [facility] Last Admin: 01/17/19 21:44 Dose: 25 mg Documented by: Miscellaneous Information (Pneumonia Protocol Utilized) 1 each PO ONCE PRN PRN Reason: Per Protocol Montelukast Sodium (Singulair) 10 mg PO [facility] Last Admin: 01/17/19 21:45 Dose: 10 mg Documented by: Pantoprazole Sodium (Protonix) 40 mg PO AC-BRKFST [facility] Last Admin: 01/17/19 06:42 Dose: 40 mg Documented by: Pravastatin Sodium (Pravachol) 40 mg PO [facility] Last Admin: 01/17/19 21:44 Dose: 40 mg Documented by: Home Medications Medication Instructions Recorded Confirmed Type Insulin Detemir [Levemir Flextouch] 58 units SQ 12/21/14 01/15/19 History Montelukast [Singulair] 10 mg PO 12/21/14 01/15/19 History Insulin Aspart [NovoLOG Flexpen] 17 units SQ TID-W/MEALS 02/07/16 01/15/19 History Magnesium Oxide [Mag-Ox] 250 mg PO DAILY 02/07/16 01/15/19 History Pravastatin Sodium 40 mg PO 02/07/16 01/15/19 History [place]-3 Fatty Acids/Fish Oil [Fish 1 cap PO DAILY 08/13/16 01/15/19 History Oil 1,000 mg Softgel] Acetaminophen Tab [Tylenol] 1,000 mg PO BID 03/17/17 01/15/19 History Pantoprazole [Protonix] 40 mg PO DAILY #30 tab 03/21/17 01/15/19 Rx Insulin Aspart [NovoLOG Flexpen] See Protocol SQ AC-TID PRN 11/12/17 01/15/19 History Budesonide-Formot 160-4.5 Mcg 2 puff INHALATION RT-BID 11/13/17 01/15/19 History [Symbicort 160-4.5 Mcg Inhaler] Furosemide [Lasix] 40 mg PO DAILY 01/26/18 01/15/19 History Ipratropium-Albuterol Nebulize 3 ml INHALATION RT-QID 01/26/18 01/15/19 History [Duoneb 0.5 mg-3 mg/3 ml Soln] Lisinopril [Zestril] 5 mg PO QAM 01/26/18 01/15/19 History Spironolactone [Aldactone] 12.5 mg PO BID 01/26/18 01/15/19 History Escitalopram Oxalate [Lexapro] 10 mg PO HS 04/19/18 01/15/19 History Cyanocobalamin (Vitamin B-12) 1,000 mcg PO DIRECTED 01/15/19 01/15/19 History [Vitamin B-12] Sulfamethox-Tmp 800-160Mg [Bactrim 1 tab PO TID 01/15/19 01/15/19 History DS 800-160 mg] amLODIPine [Norvasc] 10 mg PO HS 01/15/19 01/15/19 History Allergies Allergy/AdvReac Type Severity Reaction Status Date / Time Penicillins Allergy Unknown Rash/Hives Verified 01/15/19 15:02 atorvastatin calcium Allergy Unknown Verified 01/15/19 15:02 [From Lipitor] clonazepam [From Klonopin] Allergy Hallucinati Verified 01/15/19 15:02 ons codeine Allergy Hallucinati Verified 01/15/19 15:02 ons haloperidol [From Haldol] Allergy Hallucinati Verified 01/15/19 15:02 ons haloperidol lactate Allergy Hallucinati Verified 01/15/19 15:02 [From Haldol] ons hydromorphone HCl Allergy Hallucinati Verified 01/15/19 15:02 [From Dilaudid] ons methylphenidate HCl Allergy Hallucinati Verified 01/15/19 15:02 [From Ritalin] ons morphine Allergy Hallucinati Verified 01/15/19 15:02 ons propofol Allergy Hallucinati Verified 01/15/19 15:02 ons quetiapine fumarate Allergy Hallucinati Verified 01/15/19 15:02 [From Seroquel] ons Sulfa (Sulfonamide Allergy Unknown Verified 01/15/19 15:02 Antibiotics) vancomycin Allergy Unknown Verified 01/15/19 15:02 ativan AdvReac Unknown Uncoded 01/15/19 14:17 Physical Exam Vitals: Vital Signs Temp Pulse Pulse Resp BP Pulse Ox 01/18/19 00:00 98 F 70 17 124/83 92 L 01/17/19 21:50 98.1 F 77 17 147/67 90 L 01/17/19 21:10 78 01/17/19 21:00 78 01/17/19 15:14 97.7 F 57 L 18 99/54 91 L 01/17/19 11:42 97.6 F 60 18 125/60 91 L 01/17/19 11:09 75 01/17/19 10:58 74 01/17/19 08:00 98 F 78 18 140/67 92 L 01/17/19 07:40 78 01/17/19 07:28 77 94 L 01/17/19 03:52 97.9 F 85 17 139/63 92 L Intake and Output 01/17/19 01/17/19 01/18/19 14:59 22:59 06:59 Intake Total 838 170 Balance 838 170 Intake: Intake, IV Titration 50 Amount cefTRIAXone 1 gm In 50 Sodium Chloride 0.9% 50 ml @ 100 mls/hr IVPB Q24HR [facility] Rx#:[id number] Oral 838 120 Other: Voiding Method Bedside Commode Bedside Commode Bedside Commode Urinal Urinal Urinal # Voids 2 1 83-year-old male more awake and alert than noted nicky HEENT: Anicteric conjunctiva are pink and moist nasal mucosa grossly intact without significant lesions, there is no thrush. Neck: The neck is supple without significant lymphadenopathy or thyromegaly. Lungs: symmetrical bilateral air entry with fewcrackles to the left base, wheezing or scattered no bronchial sounds Heart: Regular rate and rhythm with an audible S1-S2, no S3 no S4. There is no significant murmur click or rub, PMI was nondisplaced. Abdomen: Positive bowel sounds soft and nontender without palpable masses or organomegaly. There was no guarding or rebound. Extremities: The upper extremities have excellent pulses they are symmetric, no significant petechiae or telangiectasia. No splinter hemorrhages were noted. Lower extremities evidence of some chronic edema and chronic venous stasis. Right foot shows evidence of the extensive abnormality to the second toe with the significant diabetic ulceration with likely underlying osteomyelitis to that second toe by the findings. There is no tenderness and diminished sensation as noted. There is erythema and warmth and some ascending to the warmth. Neuro: Awake alert oriented to person place and time. There are no acute new gross focal sensory motor deficits. Results CBC & Chem 7: 01/17/19 05:49 01/17/19 05:49 Labs: Abnormal Lab Results - Last 24 Hours (Table) 01/17/19 01/17/19 01/17/19 Range/Units 05:49 05:49 05:49 WBC 12.7 H (3.8-10.6) k/uL RBC 3.55 L (4.30-5.90) m/uL Hgb 9.1 L (13.0-17.5) gm/dL Hct 28.7 L (39.0-53.0) % RDW 16.7 H (11.5-15.5) % Neutrophils # 10.1 H (1.3-7.7) k/uL Lymphocytes # 0.9 L (1.0-4.8) k/uL Sodium 134 L (137-145) mmol/L BUN 30 H (9-20) mg/dL Creatinine 1.36 H (0.66-1.25) mg/dL POC Glucose (mg/dL) (75-99) mg/dL Iron 12 L (65-175) ug/dL Iron Saturation 3.55 L (15.00-50.00) 01/17/19 01/17/19 01/17/19 Range/Units 11:32 20:32 21:33 WBC (3.8-10.6) k/uL RBC (4.30-5.90) m/uL Hgb (13.0-17.5) gm/dL Hct (39.0-53.0) % RDW (11.5-15.5) % Neutrophils # (1.3-7.7) k/uL Lymphocytes # (1.0-4.8) k/uL Sodium (137-145) mmol/L BUN (9-20) mg/dL Creatinine (0.66-1.25) mg/dL POC Glucose (mg/dL) 241 H 135 H 155 H (75-99) mg/dL Iron (65-175) ug/dL Iron Saturation (15.00-50.00) Microbiology - Last 24 Hours (Table) 01/15/19 14:20 Blood Culture - Preliminary Blood No Growth after 48 hours 01/15/19 16:18 Urine Culture - Final Urine,Voided Laboratory Results WBC 12.7 k/uL (3.8-10.6) H 01/17/19 05:49 RBC 3.55 m/uL (4.30-5.90) L 01/17/19 05:49 Hgb 9.1 gm/dL (13.0-17.5) L 01/17/19 05:49 Hct 28.7 % (39.0-53.0) L 01/17/19 05:49 MCV 80.9 fL (80.0-100.0) 01/17/19 05:49 MCH 25.8 pg (25.0-35.0) 01/17/19 05:49 MCHC 31.9 g/dL (31.0-37.0) 01/17/19 05:49 RDW 16.7 % (11.5-15.5) H 01/17/19 05:49 Plt Count 415 k/uL (150-450) 01/17/19 05:49 Neutrophils % 80 % 01/17/19 05:49 Lymphocytes % 7 % 01/17/19 05:49 Monocytes % 8 % 01/17/19 05:49 Eosinophils % 3 % 01/17/19 05:49 Basophils % 0 % 01/17/19 05:49 Neutrophils # 10.1 k/uL (1.3-7.7) H 01/17/19 05:49 Lymphocytes # 0.9 k/uL (1.0-4.8) L 01/17/19 05:49 Monocytes # 1.0 k/uL (0-1.0) 01/17/19 05:49 Eosinophils # 0.3 k/uL (0-0.7) 01/17/19 05:49 Basophils # 0.1 k/uL (0-0.2) 01/17/19 05:49 Hypochromasia Slight 01/17/19 05:49 Anisocytosis Slight 01/17/19 05:49 Microcytosis Slight 01/17/19 05:49 PT 10.2 sec (9.0-12.0) 01/15/19 14:20 INR 0.9 (<1.2) 01/15/19 14:20 APTT 28.1 sec (22.0-30.0) 01/15/19 14:20 Sodium 134 mmol/L (137-145) L 01/17/19 05:49 Potassium 4.6 mmol/L (3.5-5.1) 01/17/19 05:49 Chloride 99 mmol/L (98-107) 01/17/19 05:49 Carbon Dioxide 25 mmol/L (22-30) 01/17/19 05:49 Anion Gap 10 mmol/L 01/17/19 05:49 BUN 30 mg/dL (9-20) H 01/17/19 05:49 Creatinine 1.36 mg/dL (0.66-1.25) H 01/17/19 05:49 Est GFR (CKD-EPI)AfAm 56 (>60 ml/min/1.73 sqM) 01/17/19 05:49 Est GFR (CKD-EPI)NonAf 48 (>60 ml/min/1.73 sqM) 01/17/19 05:49 Glucose 82 mg/dL (74-99) 01/17/19 05:49 POC Glucose (mg/dL) 155 mg/dL (75-99) H 01/17/19 21:33 POC Glu [employer]visor [employer] ID Reba Morales 01/17/19 21:33 Lactic Ac Sepsis Rflx Y 01/15/19 15:01 Plasma Lactic Acid Dean 1.5 mmol/L (0.7-2.0) 01/15/19 19:02 Calcium 9.4 mg/dL (8.4-10.2) 01/17/19 05:49 Phosphorus 3.2 mg/dL (2.5-4.5) 01/15/19 14:20 Magnesium 2.1 mg/dL (1.6-2.3) 01/15/19 14:20 Iron 12 ug/dL (65-175) L 01/17/19 05:49 TIBC 338 ug/dL (228-460) 01/17/19 05:49 Iron Saturation 3.55 (15.00-50.00) L 01/17/19 05:49 Ferritin 66.9 ng/mL (22.0-322.0) 01/17/19 05:49 Total Bilirubin 0.3 mg/dL (0.2-1.3) 01/15/19 14:20 AST 44 U/L (17-59) 01/15/19 14:20 ALT 42 U/L (21-72) 01/15/19 14:20 Alkaline Phosphatase 61 U/L (38-126) 01/15/19 14:20 Troponin I 0.055 ng/mL (0.000-0.034) H* 01/15/19 14:20 NT-Pro-B Natriuret Pep 2630 pg/mL 01/15/19 14:20 Total Protein 7.1 g/dL (6.3-8.2) 01/15/19 14:20 Albumin 4.1 g/dL (3.5-5.0) 01/15/19 14:20 Procalcitonin 0.19 ng/mL (0.02-0.09) H 01/16/19 15:14 TSH 0.221 mIU/L (0.465-4.680) L 01/15/19 14:20 Urine Color Light Yellow 01/15/19 16:18 Urine Appearance Clear (Clear) 01/15/19 16:18 Urine pH 6.0 (5.0-8.0) 01/15/19 16:18 Ur Specific [place] 1.010 (1.001-1.035) 01/15/19 16:18 Urine Protein Trace (Negative) H 01/15/19 16:18 Urine Glucose (UA) 3+ (Negative) H 01/15/19 16:18 Urine Ketones Negative (Negative) 01/15/19 16:18 Urine Blood Negative (Negative) 01/15/19 16:18 Urine Nitrite Negative (Negative) 01/15/19 16:18 Urine Bilirubin Negative (Negative) 01/15/19 16:18 Urine Urobilinogen <2.0 mg/dL (<2.0) 01/15/19 16:18 Ur Leukocyte Esterase Negative (Negative) 01/15/19 16:18 Influenza Type A RNA Not Detected (Not Detectd) 01/15/19 15:30 Influenza Type B (PCR) Not Detected (Not Detectd) 01/15/19 15:30 Microbiology 01/15/19 14:20 Blood Blood Culture - Preliminary No Growth after 48 hours 01/15/19 16:18 Urine,Voided Urine Culture - Final Assessment and Plan (1) Community acquired pneumonia Narrative/Plan: 83 oh male who has multiple medical troubles including diabetes and history of splenectomy presents with an alteration of his mental status. Patient has evidence of the worsening right foot diabetic ulceration with likely osteomyelitis based on the findings of the toe and has fat layer exposed. Local wound care with the silver dressing is requested. Elevation of the foot is requested. Antibiotic therapy at this time as directed for community acquired pneumonia with Rocephin and azithromycin since he did have a few pulmonary s ymptoms before coming to hospital. With a splenectomy antibiotic therapy is very important since he did have a fever. Blood cultures and wound culture is in process. So further help direct us therapy. Imaging to the foot will be requested to evaluate the extent of the infection Current Visit: Yes Status: Acute Code(s): J18.9 - PNEUMONIA, UNSPECIFIED ORGANISM SNOMED Code(s): 705819675 (2) Diabetic foot ulcer associated with type 2 diabetes mellitus, with fat layer exposed Current Visit: Yes Status: Acute Code(s): E11.621 - TYPE 2 DIABETES MELLITUS WITH FOOT ULCER; L97.502 - NON-PRS CHRONIC ULCER OTH PRT UNSP FOOT W FAT LAYER EXPOSED SNOMED Code(s): 5768141687790
[2019-01-18 00:57] LABS: Glucose,Whole Blood 65 mg/dL (75-99)
[2019-01-18 01:12] LABS: Glucose,Whole Blood 92 mg/dL (75-99)
[2019-01-18 06:27] LABS: Glucose,Whole Blood 252 mg/dL (75-99)
[2019-01-18] MEDS: INSULIN ASPART (NovoLOG) 100 UNIT/ML VIAL SQ SCH ×8 (06:48→20:42)
[2019-01-18] MEDS: PANTOPRAZOLE 40 MG TABLET PO SCH (06:48)
[2019-01-18] MEDS: IPRATROPIUM-ALBUTEROL 3 ML NEB INHALATION SCH ×4 (08:19→19:48)
[2019-01-18] MEDS: SYMBICORT 160-4.5 MCG INHALER INHALATION SCH ×2 (08:19→19:48)
[2019-01-18 08:42] LABS: Anisocytosis Slight; Basophils % (A) 0 %; Eosinophils # (A) 0.2 k/uL (0-0.7); Eosinophils % (A) 2 %; HCT 30.8 % (39.0-53.0); HGB 9.5 gm/dL (13.0-17.5); Hypochromasia Slight; Lymphocytes # (A) 1.3 k/uL (1.0-4.8); Lymphocytes % (A) 10 %; MCH 25.3 pg (25.0-35.0); MCHC 30.9 g/dL (31.0-37.0); MCV 81.9 fL (80.0-100.0); Mean Platelet Volume 7.2; Microcytosis Slight; Monocytes # (A) 0.8 k/uL (0-1.0); Monocytes % (A) 6 %; Neutrophils # (A) 10.8 k/uL (1.3-7.7); Neutrophils % (A) 80 %; Platelet Count 519 k/uL (150-450); RBC 3.76 m/uL (4.30-5.90); RDW 16.9 % (11.5-15.5); WBC 13.5 k/uL (3.8-10.6)
[2019-01-18] MEDS: METOPROLOL TARTRATE 25 MG TAB PO SCH ×2 (08:49→20:40)
[2019-01-18] MEDS: MAGNESIUM OXIDE 400 MG TAB PO SCH (08:49)
[2019-01-18] MEDS: ACETAMINOPHEN TAB 500 MG TAB PO SCH ×2 (08:49→20:40)
[2019-01-18] MEDS: FUROSEMIDE 40 MG TAB PO SCH ×2 (08:50→20:40)
[2019-01-18] MEDS: LISINOPRIL 5 MG TAB PO SCH (08:50)
[2019-01-18] MEDS: FLUTICASONE 50MCG/SPRAY NASAL 16GM EA NOSTRIL SCH (08:50)
[2019-01-18 09:16] LABS: Calcium 9.3 mg/dL (8.4-10.2); Potassium 4.9 mmol/L (3.5-5.1)
[2019-01-18 11:32] LABS: Glucose,Whole Blood 217 mg/dL (75-99)
--- NOTE | 2019-01-18 12:55 | XR ---
EXAMINATION TYPE: XR foot complete RT DATE OF EXAM: 01/18/2019 COMPARISON: 08/21/2018 HISTORY: 83 year-old male right foot osteomyelitis, nonhealing wound second digit. TECHNIQUE: 3 views FINDINGS: There is apparent erosive change involving the base of the second middle phalanx with dorsal subluxat ion/dislocation. Soft tissue swelling of the second digit. No additional discrete osseous erosion is seen. Old healed fracture deformity fifth metacarpal tarsal shaft. Mild bunion formation. IMPRESSION: 1. Prominent soft tissue swelling of the second digit. 2. Chronic appearing bony erosion/remodeling along the second middle phalangeal base with redemonstra kirsten dorsal subluxation/dislocation at the PIP joint. No definite acute erosive change is identified t lady assessment is limited due to bony overlap. Short interval follow-up as indicated.
--- NOTE | 2019-01-18 14:01 | P.PN ---
Subjective Progress Note Date: 01/18/19 Principal diagnosis: Dyspnea, multifactorial, acute exacerbation of systolic congestive heart failure and underlying acute bronchitis On 01/18/2019 patient seen in follow-up on medical surgical floor. He is awake and alert, in no acute distress, he states his breathing is easier, today he is on room air, with pulse ox of 97%, hemodynamically stable, no fever or chills. Lung sounds just reveal a few scattered crackles at the bilateral lower lobes, blood urine and right second toe cultures are pending, patient is on combination of Zithromax and oral Omnicef, he has been transitioned to oral Lasix, he is on breathing treatments. No wheezing, no rhonchi. ID service is following, for antibiotic management, and patient is being treated for diabetic foot ulcer on his right second toe. Objective - Vital Signs Vital signs: Vital Signs Temp 97.4 F L 01/18/19 11:56 Pulse 80 01/18/19 12:43 Resp 15 01/18/19 11:56 BP 137/70 01/18/19 11:56 Pulse Ox 97 01/18/19 11:56 Intake & Output 01/17/19 01/18/19 01/18/19 18:59 06:59 18:59 Intake Total 888 120 410 Output Total 200 Balance 888 -80 410 Weight 108.4 kg Intake: Intake, IV Titration 50 50 Amount cefTRIAXone 1 gm In 50 Sodium Chloride 0.9% 50 ml @ 100 mls/hr IVPB Q24HR [facility] Rx#:[id number] cefTRIAXone 1 gm In 50 Sodium Chloride 0.9% 50 ml @ 100 mls/hr IVPB Q24HR [facility] Rx#:[id number] Oral 838 120 360 Output: Urine 200 Other: Voiding Method Bedside Commode Bedside Commode Urinal Urinal # Voids 1 - Exam GENERAL EXAM: Alert, pleasant, 83-year-old all white male, on room air comfortable in no apparent distress. HEAD: Normocephalic/atraumatic. EYES: Normal reaction of pupils, equal size. Conjunctiva pink, sclera white. NOSE: Clear with pink turbinates. THROAT: No erythema or exudates. NECK: No masses, no JVD, no thyroid enlargement, no adenopathy. CHEST: No chest wall deformity. Symmetrical expansion. LUNGS: Equal air entry with a few scattered crackles, wheeze, rhonchi or dullness. CVS: Regular rate and rhythm, normal S1 and S2, no gallops, no murmurs, no rubs ABDOMEN: Soft, nontender. No hepatosplenomegaly, normal bowel sounds, no guarding or rigidity. EXTREMITIES: No clubbing, no edema, no cyanosis, 2+ pulses and upper and lower extremities. MUSCULOSKELETAL: Muscle strength and tone normal. SPINE: No scoliosis or deformity SKIN: No rashes CENTRAL NERVOUS SYSTEM: Alert and oriented -3. No focal deficits, tone is normal in all 4 extremities. PSYCHIATRIC: Alert and oriented -3. Appropriate affect. Intact judgment and insight. - Labs CBC & Chem 7: 01/18/19 08:26 01/18/19 08:26 Labs: Abnormal Lab Results - Last 24 Hours (Table) 01/17/19 01/17/19 01/18/19 Range/Units 20:32 21:33 00:55 WBC (3.8-10.6) k/uL RBC (4.30-5.90) m/uL Hgb (13.0-17.5) gm/dL Hct (39.0-53.0) % MCHC (31.0-37.0) g/dL RDW (11.5-15.5) % Plt Count (150-450) k/uL Neutrophils # (1.3-7.7) k/uL Sodium (137-145) mmol/L Chloride (98-107) mmol/L BUN (9-20) mg/dL Glucose (74-99) mg/dL POC Glucose (mg/dL) 135 H 155 H 65 L (75-99) mg/dL 01/18/19 01/18/19 01/18/19 Range/Units 06:25 08:26 08:26 WBC 13.5 H (3.8-10.6) k/uL RBC 3.76 L (4.30-5.90) m/uL Hgb 9.5 L (13.0-17.5) gm/dL Hct 30.8 L (39.0-53.0) % MCHC 30.9 L (31.0-37.0) g/dL RDW 16.9 H (11.5-15.5) % Plt Count 519 H (150-450) k/uL Neutrophils # 10.8 H (1.3-7.7) k/uL Sodium 134 L (137-145) mmol/L Chloride 97 L (98-107) mmol/L BUN 36 H (9-20) mg/dL Glucose 230 H (74-99) mg/dL POC Glucose (mg/dL) 252 H (75-99) mg/dL 01/18/19 Range/Units 11:31 WBC (3.8-10.6) k/uL RBC (4.30-5.90) m/uL Hgb (13.0-17.5) gm/dL Hct (39.0-53.0) % MCHC (31.0-37.0) g/dL RDW (11.5-15.5) % Plt Count (150-450) k/uL Neutrophils # (1.3-7.7) k/uL Sodium (137-145) mmol/L Chloride (98-107) mmol/L BUN (9-20) mg/dL Glucose (74-99) mg/dL POC Glucose (mg/dL) 217 H (75-99) mg/dL Microbiology - Last 24 Hours (Table) 01/17/19 15:00 Gram Stain - Preliminary Toe - Right Second Wound Culture - Preliminary 01/15/19 14:20 Blood Culture - Preliminary Blood No Growth after 48 hours Assessment and Plan Plan: Assessment: #1 Acute exacerbation of chronic systolic congestive heart failure. #2 Acute tracheobronchitis with no clear evidence of pneumonia. #3 History of anemia. #4 Morbid obesity. #5 Atrial fibrillation. #6 Coronary artery disease previous coronary artery bypass grafting. #7 Diabetes mellitus. #8 Hyperlipidemia. #9 Hypertension. #10 Obstructive sleep apnea. #11 History of left renal cancer with partial nephrectomy/splenectomy and distal portion of pancreas removed. Plan: Continue current medical treatment, continue bronchodilators, continue oral diuretics, no significant cough or congestion, patient is on antibiotics, awaiting the results of the final cultures including the diabetic wound on his right second toe. ID service is following, clinically the patient remains stable. I performed a history & physical examination of the patient and discussed their management with my nurse practitioner, Juanita Miller. I reviewed the nurse practitioner's note and agree with the documented findings and plan of care. Lung sounds are positive for a few bibasilar crackles. The findings and the impression was discussed with the patient. I attest to the documentation by the nurse practitioner. Time with Patient: Less than 30
--- NOTE | 2019-01-18 16:13 | P.PN ---
Subjective Progress Note Date: 01/18/19 This is an 83-year-old gentleman with extensive medical history of atrial fibrillation, CAD, renal cancer, CHF, COPD, CVA/TIA, diabetes mellitus, hypertension, hyperlipidemia, CAD, OH, CABG, osteoarthritis deficient anemia, sleep apnea presented to the ER with complaints of increasing weakness, fevers and chills, productive cough with green sputum. T-max 101.1, WBC 21.8 ,tachypneic on admission, requiring 2 L nasal cannula to maintain O2 sats of 93% in a patient who does not wear oxygen at home.BP/HR stable. Hemoglobin on admission 9.3, platelets 428. Sodium 129 potassium 5.5, BUN 35, creatinine 1.56 (baseline 1.2). Hyperglycemia on admission with blood sugars in the low 300s. Troponin 0.055, BMP 2630. EKG appears to be junctional rhythm with lateral ST-T wave changes. Pro-calcitonin 0.19, TSH 0.221. UA negative. Influenza A and B not detected. Chest x-ray reporting chronic right hemidiaphragm elevation with new retrocardiac parabronchial cuffing. Denies chest pain, palpitations. R eports exertional shortness of breath. 01/17/2019 diuresing well on Lasix IV push with 24-hour I&O reflecting a negative fluid balance. Creatinine improving, down to 1.36. Maintained on nebulized bronchodilators, Rocephin, Zithromax, Symbicort .Breathing easier today, maintaining O2 sats in the 90s on room air .afebrile, WBC down to 12.7 .echo reporting EF 40-45%. Sodium improved up to 134 01/18/2019 continues to do well, transferred to [facility] with remote telemetry. Vital signs stable, maintaining O2 sats in the 90s on room air. Afebrile, no fever or chills. Wound cultures pending, maintained on antibiotics of Zithromax and Omnicef. Continues on oral Lasix. Renal function improving. Objective - Vital Signs Vital signs: Vital Signs Temp 97.4 F L 01/18/19 11:56 Pulse 80 01/18/19 12:43 Resp 15 01/18/19 11:56 BP 137/70 01/18/19 11:56 Pulse Ox 97 01/18/19 11:56 Intake & Output 01/17/19 01/18/19 01/18/19 18:59 06:59 18:59 Intake Total 888 120 410 Output Total 200 Balance 888 -80 410 Weight 108.4 kg Intake: Intake, IV Titration 50 50 Amount cefTRIAXone 1 gm In 50 Sodium Chloride 0.9% 50 ml @ 100 mls/hr IVPB Q24HR [facility] Rx#:[id number] cefTRIAXone 1 gm In 50 Sodium Chloride 0.9% 50 ml @ 100 mls/hr IVPB Q24HR [facility] Rx#:[id number] Oral 838 120 360 Output: Urine 200 Other: Voiding Method Bedside Commode Bedside Commode Urinal Urinal # Voids 1 1 - Exam PHYSICAL EXAM: VITAL SIGNS: As above GENERAL: Sitting up in chair, no acute distress HEENT: Conjunctivae normal. eyes normal. Oral mucosa moist NECK: No JVD. No thyroid enlargement. No LNs CARDIOVASCULAR: S1, S2 regular. Systolic murmur. RESPIRATION: Breath sounds diminished in the bases. Occasional rhonchi, scattered bibasilar crackles, right greater than left. ABDOMEN: Obese, Soft, mildly distended, nontender . No guarding. no masses palpable. Positive bowel sounds. EXTREMITIES: Bilateral lower extremities -no edema. no swelling. No calf tenderness. Right foot second toe dressing clean dry and intact. Positive DP. PSYCHIATRY: Alert and oriented X3, mood and affect normal. NERVOUS SYSTEM: Cranial N 2-12 grossly normal. Moves all 4 limbs. Diffuse wea kness ,No focal deficits. Strength and sensation grossly intact.. Microbiology 01/17/19 15:00 Toe - Right Second Gram Stain - Preliminary 01/17/19 15:00 Toe - Right Second Wound Culture - Preliminary 01/15/19 14:20 Blood Blood Culture - Preliminary No Growth after 48 hours 01/15/19 16:18 Urine,Voided Urine Culture - Final - Labs CBC & Chem 7: 01/18/19 08:26 01/18/19 08:26 Labs: Abnormal Lab Results - Last 24 Hours (Table) 01/17/19 01/17/19 01/18/19 Range/Units 20:32 21:33 00:55 WBC (3.8-10.6) k/uL RBC (4.30-5.90) m/uL Hgb (13.0-17.5) gm/dL Hct (39.0-53.0) % MCHC (31.0-37.0) g/dL RDW (11.5-15.5) % Plt Count (150-450) k/uL Neutrophils # (1.3-7.7) k/uL Sodium (137-145) mmol/L Chloride (98-107) mmol/L BUN (9-20) mg/dL Glucose (74-99) mg/dL POC Glucose (mg/dL) 135 H 155 H 65 L (75-99) mg/dL 01/18/19 01/18/19 01/18/19 Range/Units 06:25 08:26 08:26 WBC 13.5 H (3.8-10.6) k/uL RBC 3.76 L (4.30-5.90) m/uL Hgb 9.5 L (13.0-17.5) gm/dL Hct 30.8 L (39.0-53.0) % MCHC 30.9 L (31.0-37.0) g/dL RDW 16.9 H (11.5-15.5) % Plt Count 519 H (150-450) k/uL Neutrophils # 10.8 H (1.3-7.7) k/uL Sodium 134 L (137-145) mmol/L Chloride 97 L (98-107) mmol/L BUN 36 H (9-20) mg/dL Glucose 230 H (74-99) mg/dL POC Glucose (mg/dL) 252 H (75-99) mg/dL 01/18/19 Range/Units 11:31 WBC (3.8-10.6) k/uL RBC (4.30-5.90) m/uL Hgb (13.0-17.5) gm/dL Hct (39.0-53.0) % MCHC (31.0-37.0) g/dL RDW (11.5-15.5) % Plt Count (150-450) k/uL Neutrophils # (1.3-7.7) k/uL Sodium (137-145) mmol/L Chloride (98-107) mmol/L BUN (9-20) mg/dL Glucose (74-99) mg/dL POC Glucose (mg/dL) 217 H (75-99) mg/dL Microbiology - Last 24 Hours (Table) 01/17/19 15:00 Gram Stain - Preliminary Toe - Right Second Wound Culture - Preliminary 01/15/19 14:20 Blood Culture - Preliminary Blood No Growth after 48 hours Assessment and Plan Assessment: Shortness of breath, multifactorial secondary to acute community-acquired pneumonia right lower lobe with purulent tracheobronchitis, possible bronchitis, possible mild CHF exacerbation -Leukocytosis secondary to the above -Possible mild component of acute on chronic systolic CHF, EF 45-50% -Hypoxic respiratory failure, secondary to pneumonia and possible mild CHF -COPD -Acute on chronic renal failure, stage III. Baseline 1.2. 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 11.4 on prior admission. -Obstructive sleep apnea, unable to tolerate CPAP -Moderate mitral regurgitation -Moderate tricuspid regurgitation -Severe pulmonary hypertension -Paroxysmal atrial fibrillation, not on long-term anticoagulation secondary to GI bleed November 2017 -CAD, history of OH, CABG -Diabetes mellitus type 2, uncontrolled with hyperglycemia -History of renal cancer 2013 with partial nephrectomy, splenectomy and resection of distal portion of the pancreas -BPH -Hypertension -Hyperlipidemia -History of CVA,TIA -Chronic Right foot diabetic ulcer, history of MRSA in August 2018;right foot, 2nd toe cx pending. Plan: Continue current medication regime ,monitoring and symptomatic treatment. Maintain contact precautions,history of MRSA. Right toe culture pending. IV antibiotics as per ID.continue on nebulized bronchodilators-both scheduled and prn, LABA. Diuretics-oral Lasix. Close monitoring of renal function, electrolytes, hemoglobin with repeat labs ordered for a.m. discharge planning in progress potentially tomorrow pending cultures. The impression and plan of care has been dictated as directed. : I performed a history and examination of this patient, discussed the same with the dictator. I agree with the dictator's note ,documented as a scribe. Any additional findings or plans will be noted. Time taken: 35 min
[2019-01-18 17:36] LABS: Glucose,Whole Blood 151 mg/dL (75-99)
[2019-01-18] MEDS: AZITHROMYCIN 500 MG TAB PO SCH (17:59)
[2019-01-18 19:53] LABS: Glucose,Whole Blood 204 mg/dL (75-99)
[2019-01-18] MEDS: MONTELUKAST 10 MG TAB PO SCH (20:40)
[2019-01-18] MEDS: MELATONIN 3 MG TABLET PO SCH (20:40)
[2019-01-18] MEDS: INSULIN DETEMIR (LEVEMIR) 100 UNIT/ML SYR SQ SCH (20:42)
[2019-01-18] MEDS: PRAVASTATIN SODIUM 40 MG TAB PO SCH (22:16)
[2019-01-18] MEDS: ESCITALOPRAM 10 MG TAB PO SCH (22:17)
[2019-01-19 07:12] LABS: Glucose,Whole Blood 71 mg/dL (75-99)
[2019-01-19] MEDS: INSULIN ASPART (NovoLOG) 100 UNIT/ML VIAL SQ SCH ×7 (07:46→21:36)
[2019-01-19] MEDS: FUROSEMIDE 40 MG TAB PO SCH ×2 (08:21→21:42)
[2019-01-19] MEDS: LISINOPRIL 5 MG TAB PO SCH (08:21)
[2019-01-19] MEDS: PANTOPRAZOLE 40 MG TABLET PO SCH (08:22)
[2019-01-19] MEDS: ACETAMINOPHEN TAB 500 MG TAB PO SCH ×2 (08:23→21:42)
[2019-01-19] MEDS: MAGNESIUM OXIDE 400 MG TAB PO SCH (08:25)
[2019-01-19] MEDS: METOPROLOL TARTRATE 25 MG TAB PO SCH (08:25)
[2019-01-19] MEDS ORDERED: CEFDINIR 300 MG CAP PO SCH (09:00)
[2019-01-19] MEDS: SYMBICORT 160-4.5 MCG INHALER INHALATION SCH ×2 (09:16→20:26)
[2019-01-19] MEDS: IPRATROPIUM-ALBUTEROL 3 ML NEB INHALATION SCH ×4 (09:17→20:26)
[2019-01-19] MEDS: FLUTICASONE 50MCG/SPRAY NASAL 16GM EA NOSTRIL SCH (09:32)
[2019-01-19 10:54] LABS: Glucose,Whole Blood 261 mg/dL (75-99)
--- NOTE | 2019-01-19 13:18 | P.PN ---
Subjective Progress Note Date: 01/19/19 Principal diagnosis: Diabetic ulcer right foot, pulmonary infiltrate versus laryngotracheal bronchitis Patient doing quite well vital signs stable patient is afebrile O2 sats are in the 90s on room air the presumptive culture wound suggests methicillin-resistant staph [place] His disease has initiated daptomycin Objective - Vital Signs Vital signs: Vital Signs Temp 97.8 F 01/19/19 11:43 Pulse 60 01/19/19 12:26 Resp 16 01/19/19 11:43 BP 165/72 01/19/19 11:43 Pulse Ox 98 01/19/19 11:43 Intake & Output 01/18/19 01/19/19 01/19/19 18:59 06:59 18:59 Intake Total 410 100 Output Total 200 Balance 410 100 -200 Intake: Intake, IV Titration 50 Amount cefTRIAXone 1 gm In 50 Sodium Chloride 0.9% 50 ml @ 100 mls/hr IVPB Q24HR [facility] Rx#:[id number] Oral 360 100 Output: Urine 200 Other: Voiding Method Toilet Toilet # Voids 1 2 2 - Exam General: [Patient awake, alert and oriented times 3. Patient in no acute distress.] HEENT: [PERRL. EOMI. No pharyngeal erythema or exudate.] Neck: [No adenopathy.] Cardiac: [Heart regular in rate and rhythm. No S3. No S4. No clicks, rubs. No murmur Midline incision secondary to CABG old Lungs: [Clear to auscultation bilaterally.] Abdomen: [No mass. No organomegaly. Bowel sounds presnt and normoactive in all 4 quadrants.] Extremes: [No edema no cyanosis no claudication normal pulses Right second toe wound presumptive methicillin-resistant staph : [] Musculoskeletal: [No joint erythema, edema or tenderness.] Skin: [No rash.] Neurologic: [No lateralizing deficits. CN II - XII grossly intact.] Lymphatic: [No adenopathy.] - Labs CBC & Chem 7: 01/18/19 08:26 01/18/19 08:26 Labs: Abnormal Lab Results - Last 24 Hours (Table) 01/18/19 01/18/19 01/19/19 Range/Units 17:34 19:51 07:06 POC Glucose (mg/dL) 151 H 204 H 71 L (75-99) mg/dL 01/19/19 Range/Units 10:53 POC Glucose (mg/dL) 261 H (75-99) mg/dL Microbiology - Last 24 Hours (Table) 01/17/19 15:00 Gram Stain - Preliminary Toe - Right Second Wound Culture - Preliminary Presumptive MRSA 01/15/19 14:20 Blood Culture - Preliminary Blood No Growth after 72 hours Assessment and Plan (1) Acute exacerbation of chronic obstructive airways disease Current Visit: Yes Status: Acute Code(s): J44.1 - CHRONIC OBSTRUCTIVE PULMONARY DISEASE W (ACUTE) EXACERBATION SNOMED Code(s): 178606062 (2) Community acquired pneumonia Current Visit: Yes Status: Acute Code(s): J18.9 - PNEUMONIA, UNSPECIFIED ORGANISM SNOMED Code(s): 154928511 (3) Diabetic foot ulcer associated with type 2 diabetes mellitus, with fat layer exposed Current Visit: Yes Status: Acute Code(s): E11.621 - TYPE 2 DIABETES MELLITUS WITH FOOT ULCER; L97.502 - NON-PRS CHRONIC ULCER OTH PRT UNSP FOOT W FAT LAYER EXPOSED SNOMED Code(s): 8817528420088 (4) Fever Current Visit: Yes Status: Acute Code(s): R50.9 - FEVER, UNSPECIFIED SNOMED Code(s): 211331004 (5) Renal cell cancer Current Visit: Yes Status: Acute Code(s): C64.9 - MALIGNANT NEOPLASM OF UNSP KIDNEY, EXCEPT RENAL PELVIS SNOMED Code(s): 241657217 (6) Anemia Current Visit: No Status: Acute Code(s): D64.9 - ANEMIA, UNSPECIFIED SNOMED Code(s): 041262079 (7) Atrial fibrillation Current Visit: No Status: Acute Code(s): I48.91 - UNSPECIFIED ATRIAL FIBR ILLATION SNOMED Code(s): 45678197 (8) Diabetic foot ulcer associated with type 2 diabetes mellitus, with fat layer exposed Current Visit: No Status: Acute Code(s): E11.621 - TYPE 2 DIABETES MELLITUS WITH FOOT ULCER; L97.502 - NON-PRS CHRONIC ULCER OTH PRT UNSP FOOT W FAT LAYER EXPOSED SNOMED Code(s): 5918483639869 Plan: Pulmonary process improving Presumptive wound culture positive for methicillin-resistant staph Patient changed to daptomycin by infectious disease Discussed rehab placement with patient for aggressive wound care and IV antibiotic therapy We'll discuss with case management and social media director Time with Patient: Greater than 30
[2019-01-19 14:14] LABS: Anisocytosis Slight; HCT 31.6 % (39.0-53.0); HGB 10.1 gm/dL (13.0-17.5); Hypochromasia Moderate; MCH 25.7 pg (25.0-35.0); MCV 80.4 fL (80.0-100.0); Mean Platelet Volume 7.8; Microcytosis Slight; Platelet Count 605 k/uL (150-450); RBC 3.94 m/uL (4.30-5.90); RDW 16.5 % (11.5-15.5); WBC 13.2 k/uL (3.8-10.6)
[2019-01-19 14:18] LABS: Calcium 9.9 mg/dL (8.4-10.2); Potassium 5.1 mmol/L (3.5-5.1)
[2019-01-19 15:00] LABS: Erythrocyte Sedimentation Rate 85 mm/hr (0-15)
[2019-01-19 16:45] LABS: Glucose,Whole Blood 187 mg/dL (75-99)
[2019-01-19] MEDS: AZITHROMYCIN 500 MG TAB PO SCH (17:02)
[2019-01-19 21:34] LABS: Glucose,Whole Blood 95 mg/dL (75-99)
[2019-01-19] MEDS: INSULIN DETEMIR (LEVEMIR) 100 UNIT/ML SYR SQ SCH (21:36)
[2019-01-19] MEDS: ESCITALOPRAM 10 MG TAB PO SCH (21:42)
[2019-01-19] MEDS: METOPROLOL TARTRATE 12.5 MG TAB PO SCH (21:42)
[2019-01-19] MEDS: MELATONIN 3 MG TABLET PO SCH (21:42)
[2019-01-19] MEDS: MONTELUKAST 10 MG TAB PO SCH (21:42)
--- NOTE | 2019-01-19 23:18 | PN ---
PROGRESS NOTE DATE OF SERVICE: 01/19/2019. REASON FOR FOLLOWUP: Right 2nd toe wound culture and evaluate for antibiotic therapy. HISTORY OF PRESENT ILLNESS: The patient is an 83-year-old male with past medical history significant for chronic nonhealing wound to right second toe. The patient is currently being treated in outpatient setting by his cork insulator helper, Dr. Mendez. The patient presented to the [facility] ER on 01/15/2019 with fever of 101 degrees Fahrenheit. The patient had some shortness of breath with diagnosis of possible pneumonia, though chest x-ray did not show significant consolidation. The patient was treated with Rocephin and Zithromax. Currently on Omnicef and Zithromax. The patient did have cultures obtained from his right second toe wound, which are currently positive, presumed MRSA. I was asked to see the patient today for further management of cultures and antibiotic therapy. The patient's fever is currently resolved. The patient is complaining of denies a nonhealing wound of his right 2nd toe, though denies significant pain because of underlying diabetic neuropathy. The patient denies having any chest pain or shortness of breath. Very minimal cough which is dry in nature. No nausea, no vomiting. No abdominal pain or any diarrhea. REVIEW OF SYSTEMS: Positive points have been mentioned in HPI. Rest of systems negative. PAST MEDICAL/SURGICAL HISTORY: Reviewed and no changes. MEDICATIONS: Reviewed. PHYSICAL EXAMINATION: Blood pressure is 136/72 with a pulse of 54, temperature 37.8. He is 98% on room air. GENERAL DESCRIPTION: An elderly male up in the chair in no distress. No tachypnea or accessory muscle of respiration use. HEENT: Shows slight pallor. No scleral icterus. Oral mucosa is dry. No pharyngeal erythema or thrush. NECK: Trachea is central. No thyromegaly. LUNGS: Unlabored breathing. Clear to auscultation anteriorly. HEART: S1, S2. Regular rate and rhythm. ABDOMEN: Soft, no tenderness. EXTREMITIES: No edema of the feet. Right second toe on the mid aspect did have a wound. He did have deformity with at the proximal interphalangeal joint. Some surrounding maceration, not foul smelling though. NEUROLOGIC: The patient is awake, alert, oriented. Mood and affect normal. LABS: Hemoglobin is 10.1, white count 13.2, BUN of 37, creatinine 1.41. Wound culture with presumptive MRSA. DIAGNOSTIC IMPRESSION AND PLAN: Patient with chronic nonhealing wound to right second toe. Did have a significant maceration, nonhealing wound and deformity with some instability of the proximal interphalangeal joint, concern likely for septic arthritis/osteomyelitis. PLAN: 1. We will obtain a sedimentation rate and CRP. 2. Obtain a three-phase bone scan. 3. Add daptomycin 6 mg/kg daily in view of his allergy to vancomycin, though clinically doubt he has true vancomycin allergy. 4. We will follow up on his clinical condition and evaluation of the patient to further adjust medication if needed. Local wound care with Aquacel Silver discussed with the RN. DAQUAN / SAMANTHAN: [id number] /
[2019-01-19 23:52] LABS: Glucose,Whole Blood 230 mg/dL (75-99)
[2019-01-20 07:46] LABS: Glucose,Whole Blood 320 mg/dL (75-99)
[2019-01-20] MEDS: ACETAMINOPHEN TAB 500 MG TAB PO SCH ×2 (08:05→20:46)
[2019-01-20] MEDS: MAGNESIUM OXIDE 400 MG TAB PO SCH (08:06)
[2019-01-20] MEDS: METOPROLOL TARTRATE 12.5 MG TAB PO SCH ×2 (08:06→20:47)
[2019-01-20] MEDS: INSULIN ASPART (NovoLOG) 100 UNIT/ML VIAL SQ SCH ×7 (08:06→20:48)
[2019-01-20] MEDS: LISINOPRIL 5 MG TAB PO SCH (08:06)
[2019-01-20] MEDS: FUROSEMIDE 40 MG TAB PO SCH ×2 (08:06→20:47)
[2019-01-20] MEDS: PANTOPRAZOLE 40 MG TABLET PO SCH (08:06)
[2019-01-20] MEDS: SYMBICORT 160-4.5 MCG INHALER INHALATION SCH ×2 (08:27→20:50)
[2019-01-20] MEDS: IPRATROPIUM-ALBUTEROL 3 ML NEB INHALATION SCH ×4 (08:29→20:50)
[2019-01-20 09:52] LABS: Anisocytosis Slight; HCT 31.5 % (39.0-53.0); HGB 9.9 gm/dL (13.0-17.5); Hypochromasia Moderate; MCH 25.7 pg (25.0-35.0); MCHC 31.5 g/dL (31.0-37.0); MCV 81.5 fL (80.0-100.0); Mean Platelet Volume 7.4; Microcytosis Slight; Platelet Count 655 k/uL (150-450); RBC 3.86 m/uL (4.30-5.90); RDW 16.6 % (11.5-15.5)
[2019-01-20 10:25] LABS: Band Neutrophils % 1 %; Basophils # (M) 0.15 k/uL (0-0.2); Metamyelocytes # (M) 0.15 k/uL (0); Metamyelocytes % 1 %; Neutrophils % (M) 88 %; Nucleated Red Blood Cells 1 /100 WBC (0-0); Total Cells Counted 200
[2019-01-20 10:26] LABS: Lymphocytes # (M) 0.91 k/uL (1.0-4.8); Monocytes # (M) 0.61 k/uL (0-1.0); WBC 15.2 k/uL (3.8-10.6)
[2019-01-20 10:27] LABS: Poikilocytosis (M) Present
--- NOTE | 2019-01-20 11:33 | P.PN ---
Subjective Progress Note Date: 01/20/19 Principal diagnosis: Diabetic ulcer right foot, pulmonary infiltrate versus laryngotracheal bronchitis Patient doing quite well vital signs stable patient is afebrile O2 sats are in the 90s on room air the presumptive culture wound suggests methicillin-resistant staph [place] His disease has initiated daptomycin 01/20/2019 Patient is awake alert vital signs are stable patient is currently afebrile patient was changed to daptomycin by infectious disease yesterday. White cell Count is 15,000, patient currently undergoing bone scan for right second toe Objective - Vital Signs Vital signs: Vital Signs Temp 97.5 F L 01/20/19 04:54 Pulse 76 01/20/19 08:34 Resp 18 01/20/19 04:54 BP 149/69 01/20/19 04:54 Pulse Ox 95 01/20/19 04:54 Intake & Output 01/19/19 01/20/19 01/20/19 18:59 06:59 18:59 Intake Total 710 Output Total 200 Balance -200 710 Weight 103 kg Intake: Oral 710 Output: Urine 200 Other: Voiding Method Toilet Toilet Toilet # Voids 3 2 - Exam General: [Patient awake, alert and oriented times 3. Patient in no acute distress.] HEENT: [PERRL. EOMI. No pharyngeal erythema or exudate.] Neck: [No adenopathy.] Cardiac: [Heart regular in rate and rhythm. No S3. No S4. No clicks, rubs. No murmur Midline incision secondary to CABG old Lungs: [Clear to auscultation bilaterally.] Abdomen: [No mass. No organomegaly. Bowel sounds presnt and normoactive in all 4 quadrants.] Extremes: [No edema no cyanosis no claudication normal pulses Right second toe wound presumptive methicillin-resistant staph : [] Musculoskeletal: [No joint erythema, edema or tenderness.] Skin: [No rash.] Neurologic: [No lateralizing deficits. CN II - XII grossly intact.] Lymphatic: [No adenopathy.] - Labs CBC & Chem 7: 01/20/19 09:14 01/19/19 13:40 Labs: Abnormal Lab Results - Last 24 Hours (Table) 01/19/19 01/19/19 01/19/19 Range/Units 13:40 13:40 16:44 WBC 13.2 H (3.8-10.6) k/uL RBC 3.94 L (4.30-5.90) m/uL Hgb 10.1 L (13.0-17.5) gm/dL Hct 31.6 L (39.0-53.0) % RDW 16.5 H (11.5-15.5) % Plt Count 605 H (150-450) k/uL Neutrophils # (Manual) (1.3-7.7) k/uL Lymphocytes # (Manual) (1.0-4.8) k/uL Metamyelocytes # (Man) (0) k/uL Nucleated RBCs (0-0) /100 WBC ESR 85 H (0-15) mm/hr Sodium 136 L (137-145) mmol/L Chloride 96 L (98-107) mmol/L BUN 37 H (9-20) mg/dL Creatinine 1.41 H (0.66-1.25) mg/dL Glucose 247 H (74-99) mg/dL POC Glucose (mg/dL) 187 H (75-99) mg/dL C-Reactive Protein 70.0 H (<10.0) mg/L 01/19/19 01/20/19 01/20/19 Range/Units 23:50 07:44 09:14 WBC 15.2 H (3.8-10.6) k/uL RBC 3.86 L (4.30-5.90) m/uL Hgb 9.9 L (13.0-17.5) gm/dL Hct 31.5 L (39.0-53.0) % RDW 16.6 H (11.5-15.5) % Plt Count 655 H (150-450) k/uL Neutrophils # (Manual) 13.50 H (1.3-7.7) k/uL Lymphocytes # (Manual) 0.91 L (1.0-4.8) k/uL Metamyelocytes # (Man) 0.15 H (0) k/uL Nucleated RBCs 1 H (0-0) /100 WBC ESR (0-15) mm/hr Sodium (137-145) mmol/L Chloride (98-107) mmol/L BUN (9-20) mg/dL Creatinine (0.66-1.25) mg/dL Glucose (74-99) mg/dL POC Glucose (mg/dL) 230 H 320 H (75-99) mg/dL C-Reactive Protein (<10.0) mg/L Microbiology - Last 24 Hours (Table) 01/15/19 14:20 Blood Culture - Preliminary Blood No Growth after 96 hours Assessment and Plan (1) Acute exacerbation of chronic obstructive airways disease Current Visit: Yes Status: Acute Code(s): J44.1 - CHRONIC OBSTRUCTIVE PULMONARY DISEASE W (ACUTE) EXACERBATION SNOMED Code(s): 307700120 (2) Community acquired pneumonia Current Visit: Yes Status: Acute Code(s): J18.9 - PNEUMONIA, UNSPECIFIED ORGANISM SNOMED Code(s): 336671042 (3) Diabetic foot ulcer associated with type 2 diabetes mellitus, with fat layer exposed Current Visit: Yes Status: Acute Code(s): E11.621 - TYPE 2 DIABETES MELLITUS WITH FOOT ULCER; L97.502 - NON-PRS CHRONIC ULCER OTH PRT UNSP FOOT W FAT LAYER EXPOSED SNOMED Code(s): 2204618339002 (4) Fever Current Visit: Yes Status: Acute Code(s): R50.9 - FEVER, UNSPECIFIED SNOMED Code(s): 720614363 (5) Renal cell cancer Current Visit: Yes Status: Acute Code(s): C64.9 - MALIGNANT NEOPLASM OF UNSP KIDNEY, EXCEPT RENAL PELVIS SNOMED Code(s): 702380780 (6) Anemia Current Visit: No Status: Acute Code(s): D64.9 - ANEMIA, UNSPECIFIED SNOMED Code(s): 957454993 (7) Atrial fibrillation Current Visit: No Status: Acute Code(s): I48.91 - UNSPECIFIED ATRIAL FIBRILLATION SNOMED Code(s): 37578147 (8) Diabetic foot ulcer associated with type 2 diabetes mellitus, with fat layer exposed Current Visit: No Status: Acute Code(s): E11.621 - TYPE 2 DIABETES MELLITUS WITH FOOT ULCER; L97.502 - NON-PRS CHRONIC ULCER OTH PRT UNSP FOOT W FAT LAYER EXPOSED SNOMED Code(s): 9642873194930 Plan: Pulmonary process improving Presumptive wound culture positive for methicillin-resistant staph Patient changed to daptomycin by infectious disease Undergoing bone scan results pending Discussed rehab placement with patient for aggressive wound care and IV antibiotic therapy We'll discuss with case management and social service assistant Time with Patient: Greater than 30
[2019-01-20 12:07] LABS: Glucose,Whole Blood 181 mg/dL (75-99)
--- NOTE | 2019-01-20 13:09 | NM ---
EXAMINATION TYPE: NM bone 3 phase DATE OF EXAM: 01/20/2019 COMPARISON: Radiograph 01/18/2019 HISTORY: Right second toe wound, concern for osteomyelitis Triple phase bone scintigraphy was performed following the injection of 25.8 mCi Tc 99m MDP. Immedia te images and 4 hours post injection images acquired. FINDINGS: There is increased uptake in the region of the second toe right foot present on the angiographic, blo od pool, and delayed phases. IMPRESSION: Increased radiotracer uptake in the region of the second toe right foot on triple phase bone scan sug gestive of the presence of osteomyelitis.
[2019-01-20] MEDS: FLUTICASONE 50MCG/SPRAY NASAL 16GM EA NOSTRIL SCH (13:35)
[2019-01-20 17:24] LABS: Glucose,Whole Blood 96 mg/dL (75-99)
[2019-01-20] MEDS: AZITHROMYCIN 500 MG TAB PO SCH (18:06)
[2019-01-20 20:08] LABS: Glucose,Whole Blood 252 mg/dL (75-99)
[2019-01-20] MEDS: ESCITALOPRAM 10 MG TAB PO SCH (20:47)
[2019-01-20] MEDS: MONTELUKAST 10 MG TAB PO SCH (20:47)
[2019-01-20] MEDS: MELATONIN 3 MG TABLET PO SCH (20:47)
[2019-01-20] MEDS: INSULIN DETEMIR (LEVEMIR) 100 UNIT/ML SYR SQ SCH (20:47)
--- NOTE | 2019-01-20 23:20 | PN ---
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 INTERVAL HISTORY: The patient is currently afebrile. Patient has been breathing comfortably. The patient denies having any chest pain. No shortness of breath or cough. No nausea, no vomiting. No abdominal pain or pain to the right second toe area. PHYSICAL EXAMINATION: Blood pressure 154/57 with pulse of 64, temperature 98, he is 97% on 2 L nasal cannula. General description is an elderly male up in the chair in no distress. Respiratory system: Unlabored breathing, clear to auscultation anteriorly. Heart S1, S2. Regular rate and rhythm. Abdomen soft, no tenderness. Right foot is currently dressed up. No obvious drainage on the dressing. LABS: Wound cultures with MRSA. Blood culture has been negative. Did have elevated CRP and sed rate and bone scan suspicious for osteomyelitis. DIAGNOSTIC IMPRESSION AND PLAN: Patient with a chronic nonhealing wound to the right second toe with concern for underlying osteomyelitis confirmed on the bone scan. Continue with daptomycin. He will need a PICC line for outpatient IV antibiotic therapy for at least 6 weeks. Continue local wound care with Aquacel Silver dressing. MMODL / IJN: [id number] /
[2019-01-21 02:01] LABS: Glucose,Whole Blood 225 mg/dL (75-99)
[2019-01-21 06:59] LABS: Glucose,Whole Blood 176 mg/dL (75-99)
[2019-01-21] MEDS: METOPROLOL TARTRATE 12.5 MG TAB PO SCH ×2 (08:16→20:28)
[2019-01-21] MEDS: PANTOPRAZOLE 40 MG TABLET PO SCH (08:16)
[2019-01-21] MEDS: CYANOCOBALAMIN 500 MCG TAB PO SCH (08:16)
[2019-01-21] MEDS: FUROSEMIDE 40 MG TAB PO SCH ×2 (08:16→20:28)
[2019-01-21] MEDS: LISINOPRIL 5 MG TAB PO SCH (08:16)
[2019-01-21] MEDS: INSULIN ASPART (NovoLOG) 100 UNIT/ML VIAL SQ SCH ×7 (08:17→20:29)
[2019-01-21] MEDS: ACETAMINOPHEN TAB 500 MG TAB PO SCH ×2 (08:19→20:28)
[2019-01-21] MEDS: MAGNESIUM OXIDE 400 MG TAB PO SCH (08:19)
[2019-01-21] MEDS: SYMBICORT 160-4.5 MCG INHALER INHALATION SCH ×2 (09:03→20:28)
[2019-01-21] MEDS: IPRATROPIUM-ALBUTEROL 3 ML NEB INHALATION SCH ×4 (09:03→20:29)
[2019-01-21] MEDS: FLUTICASONE 50MCG/SPRAY NASAL 16GM EA NOSTRIL SCH (10:22)
[2019-01-21 11:21] LABS: Glucose,Whole Blood 155 mg/dL (75-99)
--- NOTE | 2019-01-21 14:23 | P.PN ---
Subjective Progress Note Date: 01/21/19 Principal diagnosis: Diabetic ulcer right foot, pulmonary infiltrate versus laryngotracheal bronchitis Patient doing quite well vital signs stable patient is afebrile O2 sats are in the 90s on room air the presumptive culture wound suggests methicillin-resistant staph Arthur His disease has initiated daptomycin 01/20/2019 Patient is awake alert vital signs are stable patient is currently afebrile patient was changed to daptomycin by infectious disease yesterday. White cell Count is 15,000, patient currently undergoing bone scan for right second toe 01/20/2019 Patient awake though new complaints bone scan suggests osteomyelitis in the right second toe, infectious disease schedule patient for PICC line for tomorrow Patient currently awaiting PICC line otherwise is doing well Objective - Vital Signs Vital signs: Vital Signs Temp 98.1 F 01/21/19 13:18 Pulse 53 L 01/21/19 13:18 Resp 16 01/21/19 13:18 BP 132/60 01/21/19 13:18 Pulse Ox 96 01/21/19 13:18 Intake & Output 01/20/19 01/21/19 01/21/19 18:59 06:59 18:59 Intake Total 240 Balance 240 Intake: Oral 240 Other: Voiding Method Toilet Toilet Toilet # Voids 3 2 - Exam General: [Patient awake, alert and oriented times 3. Patient in no acute distress.] HEENT: [PERRL. EOMI. No pharyngeal erythema or exudate.] Neck: [No adenopathy.] Cardiac: [Heart regular in rate and rhythm. No S3. No S4. No clicks, rubs. No murmur Midline incision secondary to CABG old Lungs: [Clear to auscultation bilaterally.] Abdomen: [No mass. No organomegaly. Bowel sounds presnt and normoactive in all 4 quadrants.] Extremes: [No edema no cyanosis no claudication normal pulses Right second toe wound presumptive methicillin-resistant staph : [] Musculoskeletal: [No joint erythema, edema or tenderness.] Skin: [No rash.] Neurologic: [No lateralizing deficits. CN II - XII grossly intact.] Lymphatic: [No adenopathy.] - Labs CBC & Chem 7: 01/20/19 09:14 01/19/19 13:40 Labs: Abnormal Lab Results - Last 24 Hours (Table) 01/20/19 01/21/19 01/21/19 Range/Units 20:06 01:59 06:56 POC Glucose (mg/dL) 252 H 225 H 176 H (75-99) mg/dL 01/21/19 Range/Units 11:19 POC Glucose (mg/dL) 155 H (75-99) mg/dL Microbiology - Last 24 Hours (Table) 01/15/19 14:20 Blood Culture - Preliminary Blood No Growth after 120 hours 01/19/19 13:40 Blood Culture - Preliminary Blood No Growth after 24 hours Assessment and Plan (1) Acute exacerbation of chronic obstructive airways disease Current Visit: Yes Status: Acute Code(s): J44.1 - CHRONIC OBSTRUCTIVE PULMONARY DISEASE W (ACUTE) EXACERBATION SNOMED Code(s): 761243709 (2) Community acquired pneumonia Current Visit: Yes Status: Acute Code(s): J18.9 - PNEUMONIA, UNSPECIFIED ORGANISM SNOMED Code(s): 984319204 (3) Diabetic foot ulcer associated with type 2 diabetes mellitus, with fat layer exposed Current Visit: Yes Status: Acute Code(s): E11.621 - TYPE 2 DIABETES MELLITUS WITH FOOT ULCER; L97.502 - NON-PRS CHRONIC ULCER OTH PRT UNSP FOOT W FAT LAYER EXPOSED SNOMED Code(s): 7696090641406 (4) Fever Current Visit: Yes Status: Acute Code(s): R50.9 - FEVER, UNSPECIFIED SNOMED Code(s): 660186658 (5) Renal cell cancer Current Visit: Yes Status: Acute Code(s): C64.9 - MALIGNANT NEOPLASM OF UNSP KIDNEY, EXCEPT RENAL PELVIS SNOMED Code(s): 051966151 (6) Anemia Current Visit: No Status: Acute Code(s): D64.9 - ANEMIA, UNSPECIFIED SNOMED Code(s): 134151086 (7) Atrial fibrillation Current Visit: No Status: Acute Code(s): I48.91 - UNSPECIFIED ATRIAL FIBRILLATION SNOMED Code(s): 39082917 (8) Diabetic foot ulcer associated with type 2 diabetes mellitus, with fat layer exposed Current Visit: No Status: Acute Code(s): E11.621 - TYPE 2 DIABETES MELLITUS WITH FOOT ULCER; L97.502 - NON-PRS CHRONIC ULCER OTH PRT UNSP FOOT W FAT LAYER EXPOSED SNOMED Code(s): 4166558992275 Plan: Pulmonary process improving Presumptive wound culture positive for methicillin-resistant staph Patient changed to daptomycin by infectious disease Bone scan positive for osteomyelitis second toe right foot Patient awaiting PICC line for aggressive antibiotic therapy Discussed rehab placement with patient for aggressive wound care and IV antibiotic therapy We'll discuss with case management and social science teacher Time with Patient: Greater than 30
[2019-01-21 16:41] LABS: Glucose,Whole Blood 123 mg/dL (75-99)
[2019-01-21] MEDS: AZITHROMYCIN 500 MG TAB PO SCH (17:44)
[2019-01-21 19:59] LABS: Glucose,Whole Blood 327 mg/dL (75-99)
[2019-01-21] MEDS: MONTELUKAST 10 MG TAB PO SCH (20:28)
[2019-01-21] MEDS: MELATONIN 3 MG TABLET PO SCH (20:28)
[2019-01-21] MEDS: ESCITALOPRAM 10 MG TAB PO SCH (20:28)
[2019-01-21] MEDS: INSULIN DETEMIR (LEVEMIR) 100 UNIT/ML SYR SQ SCH (20:29)
[2019-01-22 02:25] LABS: Glucose,Whole Blood 352 mg/dL (75-99)
--- NOTE | 2019-01-22 03:05 | PN ---
PROGRESS NOTE DATE OF SERVICE: 01/21/2019 REASON FOR FOLLOWUP: Right second toe MRSA osteomyelitis. INTERVAL HISTORY: The patient is currently afebrile. The patient has been breathing more comfortably. Denies having any chest pain. No cough. No abdominal pain. Pain to the right second toe area. PHYSICAL EXAMINATION: Blood pressure 129/63 with a pulse of 73, temperature 97.7, he is 94% on room air. General description is elderly male up in the chair in no distress. Respiratory system: Unlabored breathing, clear to auscultation anteriorly. Heart S1, S2. Regular rate and rhythm. Abdomen soft, no tenderness. Right foot is currently dressed up. No obvious drainage on the dressing. DIAGNOSTIC IMPRESSION AND PLAN: Patient with right 2nd toe osteomyelitis on the basis of the bone pain. Wound culture with MRSA with sensitivities currently pending. Patient to continue with daptomycin. He will need a PICC line for outpatient IV antibiotic therapy. at the bedside. Questions were answered. Care was discussed with admitting physician, Dr. Loza, who will resume the care as of tomorrow. MMODL / IJN: [id number] /
[2019-01-22 07:05] LABS: Glucose,Whole Blood 271 mg/dL (75-99)
[2019-01-22] MEDS: INSULIN ASPART (NovoLOG) 100 UNIT/ML VIAL SQ SCH ×4 (08:12→11:55)
[2019-01-22] MEDS: LISINOPRIL 5 MG TAB PO SCH (08:13)
[2019-01-22] MEDS: ACETAMINOPHEN TAB 500 MG TAB PO SCH (08:13)
[2019-01-22] MEDS: FUROSEMIDE 40 MG TAB PO SCH (08:13)
[2019-01-22] MEDS: PANTOPRAZOLE 40 MG TABLET PO SCH (08:13)
[2019-01-22] MEDS: MAGNESIUM OXIDE 400 MG TAB PO SCH (08:13)
[2019-01-22] MEDS: METOPROLOL TARTRATE 12.5 MG TAB PO SCH (08:13)
[2019-01-22] MEDS: FLUTICASONE 50MCG/SPRAY NASAL 16GM EA NOSTRIL SCH (08:32)
[2019-01-22] MEDS: SYMBICORT 160-4.5 MCG INHALER INHALATION SCH (09:23)
[2019-01-22] MEDS: IPRATROPIUM-ALBUTEROL 3 ML NEB INHALATION SCH ×2 (09:23→13:17)
[2019-01-22 10:52] LABS: Hemoglobin A1C 9.8 % (4.0-6.0)
--- NOTE | 2019-01-22 10:54 | P.DS ---
Providers Date of admission: 01/15/19 15:19 Expected date of discharge: 01/22/19 Attending physician: Jono Key Consults: 01/15/19 15:19 Consult Physician Routine Consulting Provider: uLkas Lr Consult Reason/Comments: chf Do you want consulting provider notified?: Yes Consult Physician Routine Consulting Provider: Zia Rubio Consult Reason/Comments: known Do you want consulting provider notified?: Yes 01/15/19 15:25 Consult Physician Routine Consulting Provider: Mateo Groves Consult Reason/Comments: known Do you want consulting provider notified?: Yes 01/17/19 11:51 Consult Physician Routine Consulting Provider: Rupert Loza Consult Reason/Comments: R foot/2nd toe wound, hx of MRSA Do you want consulting provider notified?: Yes 01/22/19 10:26 Consult Physician Stat Consulting Provider: Davey Olivera Consult Reason/Comments: picc line clearance Do you want consulting provider notified?: Yes Primary care physician: [place] Hospital Course: Final Diagnoses: Shortness of breath, multifactorial secondary to acute community-acquired pneumonia right lower lobe with purulent tracheobronchitis, possible bronchitis, possible mild CHF exacerbation -Leukocytosis secondary to the above -Possible mild component of acute on chronic systolic CHF, EF 45-50% -Hypoxic respiratory failure, secondary to pneumonia and possible mild CHF -COPD -Acute on chronic renal failure, stage III. Baseline 1.2. 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 11.4 on prior admission. 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 T-max 101.1, WBC 21.8 ,tachypneic on admission, requiring 2 L nasal cannula to maintain O2 sats of 93% in a patient who does not wear oxygen at home.BP/HR stable. Hemoglobin on admission 9.3, platelets 428. Sodium 129 potassium 5.5, BUN 35, creatinine 1.56 (baseline 1.2). Hyperglycemia on admission with blood sugars in the low 300s. Troponin 0.055, BMP 2630. EKG appears to be junctional rhythm with lateral ST-T wave changes. Pro-calcitonin 0.19, TSH 0.221. UA negative. Influenza A and B not detected. Chest x-ray reporting chronic right hemidiaphragm elevation with new retrocardiac parabronchial cuffing. Denies chest pain, palpitations. Reports exertional shortness of breath. 01/17/2019 diuresing well on Lasix IV push with 24-hour I&O reflecting a negative fluid balance. Creatinine improving, down to 1.36. Maintained on nebulized bronchodilators, Rocephin, Zithromax, Symbicort .Breathing easier today, maintaining O2 sats in the 90s on room air .afebrile, WBC down to 12.7 .echo reporting EF 40-45%. Sodium improved up to 134 01/18/2019 continues to do well, transferred to [facility] with remote telemetry. Vital signs stable, maintaining O2 sats in the 90s on room air. Afebrile, no fever or chills. Wound cultures pending, maintained on antibiotics of Zithromax and Omnicef. Continues on oral Lasix. Renal function improving. Bone scan positive for osteomyelitis. Maintained on IV antibiotics of daptomycin as per ID. Significant clinical improvement. Cleared by all consults for discharge. Scheduled for PICC line placement. Labs pending. Patient will be discharged home in a stable condition with guarded prognosis pending PICC line placement, discharge antibiotics as per infectious disease. EXAM: GENERAL: Alert and oriented X 3, no acute distress CARDIOVASCULAR: S1, S2 regular. Systolic murmur. RESPIRATION: Breath sounds diminished in the bases. ABDOMEN: Obese, Soft, mildly distended, nontender . No guarding. no masses palpable. Positive bowel sounds. EXTREMITIES: Bilateral lower extremities -no edema. no swelling. No calf tenderness. Right foot second toe dressing clean dry and intact. Positive DP NERVOUS SYSTEM:No focal deficits. Microbiology 01/15/19 14:20 Blood Blood Culture - Final No Growth after 144 hours 01/19/19 13:40 Blood Blood Culture - Preliminary No Growth after 48 hours 01/17/19 15:00 Toe - Right Second Gram Stain - Preliminary 01/17/19 15:00 Toe - Right Second Wound Culture - Preliminary Presumptive MRSA 01/15/19 16:18 Urine,Voided Urine Culture - Final The impression and plan of care has been dictated as directed. : I performed a history and examination of this patient, discussed the same with the dictator. I agree with the dictator's note ,documented as a scribe. Any additional findings or plans will be noted. Time taken: 35 minutes Patient Condition at Discharge: Stable Plan - Discharge Summary New Discharge Prescriptions: New Fluticasone Nasal [place] [Flonase Nasal [place]] 2 spray EA NOSTRIL DAILY #1 bottle Furosemide [Lasix] 40 mg PO BID #60 tab Metoprolol Tartrate [Lopressor] 12.5 mg PO BID #60 tab Magnesium Oxide [Mag-Ox] 400 mg PO DAILY #30 tab Continue Montelukast [Singulair] 10 mg PO HS Pravastatin Sodium 40 mg PO HS [place]-3 Fatty Acids/Fish Oil [Fish Oil 1,000 mg Softgel] 1 cap PO DAILY Acetaminophen Tab [Tylenol] 1,000 mg PO BID Pantoprazole [Protonix] 40 mg PO DAILY #30 tab Insulin Aspart [NovoLOG Flexpen] See Protocol SQ AC-TID PRN PRN Reason: Blood Sugar - High Budesonide-Formot 160-4.5 Mcg [Symbicort 160-4.5 Mcg Inhaler] 2 puff INHALATION RT-BID Lisinopril [Zestril] 5 mg PO QAM Escitalopram Oxalate [Lexapro] 10 mg PO HS Cyanocobalamin (Vitamin B-12) [Vitamin B-12] 1,000 mcg PO DIRECTED Ipratropium-Albuterol Nebulize [Duoneb 0.5 mg-3 mg/3 ml Soln] 3 ml INHALATION RT-QID #0 Insulin Aspart [NovoLOG Flexpen] 17 units SQ TID-W/MEALS #0 Changed Insulin Detemir [Levemir Flextouch] 60 units SQ HS #0 Discontinued Magnesium Oxide [Mag-Ox] 250 mg PO DAILY Furosemide [Lasix] 40 mg PO DAILY Spironolactone [Aldactone] 12.5 mg PO BID amLODIPine [Norvasc] 10 mg PO HS Sulfamethox-Tmp 800-160Mg [Bactrim DS 800-160 mg] 1 tab PO TID Discharge Medication List Montelukast [Singulair] 10 mg PO HS 12/21/14 [History] Pravastatin Sodium 40 mg PO HS 02/07/16 [History] [place]-3 Fatty Acids/Fish Oil [Fish Oil 1,000 mg Softgel] 1 cap PO DAILY 08/13/16 [History] Acetaminophen Tab [Tylenol] 1,000 mg PO BID 03/17/17 [History] Pantoprazole [Protonix] 40 mg PO DAILY #30 tab 03/21/17 [Rx] Insulin Aspart [NovoLOG Flexpen] See Protocol SQ AC-TID PRN 11/12/17 [History] Budesonide-Formot 160-4.5 Mcg [Symbicort 160-4.5 Mcg Inhaler] 2 puff INHALATION RT-BID 11/13/17 [History] Lisinopril [Zestril] 5 mg PO QAM 01/26/18 [History] Escitalopram Oxalate [Lexapro] 10 mg PO HS 04/19/18 [History] Cyanocobalamin (Vitamin B-12) [Vitamin B-12] 1,000 mcg PO DIRECTED 01/15/19 [History] Fluticasone Nasal [place] [Flonase Nasal [place]] 2 spray EA NOSTRIL DAILY #1 bottle 01/22/19 [Rx] Furosemide [Lasix] 40 mg PO BID #60 tab 01/22/19 [Rx] Insulin Aspart [NovoLOG Flexpen] 17 units SQ TID-W/MEALS #0 01/22/19 [Rx] Insulin Detemir [Levemir Flextouch] 60 units SQ HS #0 01/22/19 [Rx] Ipratropium-Albuterol Nebulize [Duoneb 0.5 mg-3 mg/3 ml Soln] 3 ml INHALATION RT-QID #0 09/03/19 [Rx] Magnesium Oxide [Mag-Ox] 400 mg PO DAILY #30 tab 01/22/19 [Rx] Metoprolol Tartrate [Lopressor] 12.5 mg PO BID #60 tab 01/22/19 [Rx] Follow up Appointment(s)/Referral(s): Preet Sanabria MD [STAFF PHYSICIAN] - 1 Week Lukas Lr MD [STAFF PHYSICIAN] - 1 Week Luis Quesada Jr, DO [Primary Care Provider] - 3 Days [facility]Infusion [NON-STAFF] - Ambulatory/Diagnostic Orders: Complete Blood Count w/diff [LAB.AMB] Time Frame: 3 Days, Location: None Selected Patient Instructions/Handouts: Wound Healing and Your Diet (DC), Diabetic Foot Ulcers (DC), Pneumonia (DC) Activity/Diet/Wound Care/Special Instructions: Labs pending. DC pending PICC line placement, arrangement of DC IV antibiotics as per ID. Diet: An cardiac, consistent carb Accu-Cheks 3 times a day, maintain log intake to follow-up visit with PCP for further recommendations Activity: Limited until follow-up Diabetic outpatient classes. Discharge Disposition: HOME WITH HOME HEALTH SERVICES
[2019-01-22 11:04] LABS: Prothrombin Time 11.1 sec (9.0-12.0)
[2019-01-22 11:13] LABS: Calcium 9.7 mg/dL (8.4-10.2); Potassium 4.8 mmol/L (3.5-5.1)
[2019-01-22 11:25] LABS: Anisocytosis Slight; HCT 31.6 % (39.0-53.0); Hypochromasia Slight; MCH 25.4 pg (25.0-35.0); MCHC 31.7 g/dL (31.0-37.0); MCV 80.2 fL (80.0-100.0); Microcytosis Slight; Platelet Count 713 k/uL (150-450); RBC 3.95 m/uL (4.30-5.90); RDW 16.3 % (11.5-15.5)
[2019-01-22 11:40] LABS: Glucose,Whole Blood 68 mg/dL (75-99)
--- NOTE | 2019-01-22 11:40 | P.NPCON ---
History of Present Illness - Reason for Consult acute renal failure, chronic renal failure - History of Present Illness Reason for consultation: Acute kidney injury on chronic kidney disease History of present illness: Patient is a 83-year-old male seen in renal consultation for acute kidney injury on chronic kidney disease. Patient has chronic kidney disease stage III with baseline creatinine near 1.2 secondary to diabetic kidney disease. Patient presented to the hospital on 01/15/2019 with generalized weakness and fever. He is currently being treated for right total myelitis with IV antibiotics. Cultures positive for MRSA. He is maintained on daptomycin. Nephrology is consulted for PICC line placement clearance. He admits to good urine output. No hematuria or dysuria. He does have history of systolic CHF and is maintained on Lasix 40 mg orally twice daily. No edema at this time. Hemodynamically stable. No vomiting or diarrhea. Oral intake is good. He does have diabetes for over 30 years. No other complaints at this time. GFR is back to baseline. Creatinine is 1.26 today. Vital signs are stable. General: The patient appeared well nourished and normally developed. HEENT: Head exam is unremarkable. Neck is without jugular venous distension. LUNGS: Lungs are clear to auscultation and percussion. Breath sounds decreased. HEART: Rate and Rhythm are regular. First and second heart sounds normal. No murmurs, rubs or gallops. ABDOMEN: Abdominal exam reveals normal bowel sounds. Non-tender and non- distended. No evidence of peritonitis. EXTREMITITES: No clubbing, cyanosis, or edema. Past Medical History Past Medical History: Atrial Fibrillation, Coronary Artery Disease (CAD), Cancer, Heart Failure, COPD, CVA/TIA, Diabetes Mellitus, Eye Disorder, GI Bleed, Hyperlipidemia, Hypertension, Myocardial Infarction ([place]), Osteoarthritis (OA), Prostate Disorder, Skin Disorder, Sleep Apnea/CPAP/BIPAP Additional Past Medical History / Comment(s): Anemia, blood and iron transfusions, right leg cellulitis, 2014 L renal cancer with surgery - partial nephrectomy/spleenectomy/distal portion of pancreas removed at [facility], IDDM type II, TIA, [place] unknown date, BPH, gastritis, small hiatal hernia, past discitis T9-T10, arthritis bilateral hands/back, TARIQ - does not tolerate his CPAP, past R great toe ulcer/infection. Last Myocardial Infarction Date:: UNKNOWN History of Any Multi-Drug Resistant Organisms: MRSA Date of last positivie culture/infection: 11/13/17 MDRO Source:: RIGHT TOE Past Surgical History: Coronary Bypass/CABG, Heart Catheterization Additional Past Surgical History / Comment(s): Partial L nephrectomy, distal pancreatectomy, splenectomy - at , 2000 CABG - 3 vessel, EGD, colonoscopy, deviated septum surgery, skin/oral lesion removals, R carpal tunnel release, bilateral cataract removal, bilateral laser eye surgery for "leakage". Past Anesthesia/Blood Transfusion Reactions: Previous Problems w/ Anesthesia Additional Past Anesthesia/Blood Transfusion Reaction / Comment(s): 'TROUBLE COMING OUT OF ANESTHESIA' - DELUSIONAL. Patient has received blood in past without reaction. Past Psychological History: Anxiety, Depression Additional Psychological History / Comment(s): Pt resides with his spouse. He uses a cane or walker to ambulate. He no longer drives. His spouse drives and manages his medications. No current alcohol use. 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 No marijuana or illicit drug use. No alcohol use. Patient resides with his spouse. He uses a cane or walker to ambulate. He no longer drives. His pulse tries and manages his medications. 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 Past Drug Use History: None Reported - Past Family History Father Family Medical History: Myocardial Infarction ([place]) Mother Family Medical History: COPD Medications and Allergies Home Medications Medication Instructions Recorded Confirmed Type Montelukast [Singulair] 10 mg PO HS 12/21/14 01/15/19 History Pravastatin Sodium 40 mg PO HS 02/07/16 01/15/19 History [place]-3 Fatty Acids/Fish Oil [Fish 1 cap PO DAILY 08/13/16 01/15/19 History Oil 1,000 mg Softgel] Acetaminophen Tab [Tylenol] 1,000 mg PO BID 03/17/17 01/15/19 History Pantoprazole [Protonix] 40 mg PO DAILY #30 tab 03/21/17 01/15/19 Rx Insulin Aspart [NovoLOG Flexpen] See Protocol SQ AC-TID PRN 11/12/17 01/15/19 History Budesonide-Formot 160-4.5 Mcg 2 puff INHALATION RT-BID 11/13/17 01/15/19 History [Symbicort 160-4.5 Mcg Inhaler] Lisinopril [Zestril] 5 mg PO QAM 01/26/18 01/15/19 History Escitalopram Oxalate [Lexapro] 10 mg PO HS 04/19/18 01/15/19 History Cyanocobalamin (Vitamin B-12) 1,000 mcg PO DIRECTED 01/15/19 01/15/19 History [Vitamin B-12] Fluticasone Nasal [place] [Flonase 2 spray EA NOSTRIL DAILY #1 bottle 01/22/19 Rx Nasal [place]] Furosemide [Lasix] 40 mg PO BID #60 tab 01/22/19 Rx Insulin Aspart [NovoLOG Flexpen] 17 units SQ TID-W/MEALS #0 01/22/19 01/15/19 Rx Insulin Detemir [Levemir Flextouch] 60 units SQ HS #0 01/22/19 01/15/19 Rx Ipratropium-Albuterol Nebulize 3 ml INHALATION RT-QID #0 01/22/19 01/15/19 Rx [Duoneb 0.5 mg-3 mg/3 ml Soln] Magnesium Oxide [Mag-Ox] 400 mg PO DAILY #30 tab 01/22/19 Rx Metoprolol Tartrate [Lopressor] 12.5 mg PO BID #60 tab 01/22/19 Rx Allergies Allergy/AdvReac Type Severity Reaction Status Date / Time Penicillins Allergy Unknown Rash/Hives Verified 01/15/19 15:02 atorvastatin calcium Allergy Unknown Verified 01/15/19 15:02 [From Lipitor] clonazepam [From Klonopin] Allergy Hallucinati Verified 01/15/19 15:02 ons codeine Allergy Hallucinati Verified 01/15/19 15:02 ons haloperidol [From Haldol] Allergy Hallucinati Verified 01/15/19 15:02 ons haloperidol lactate Allergy Hallucinati Verified 01/15/19 15:02 [From Haldol] ons hydromorphone HCl Allergy Hallucinati Verified 01/15/19 15:02 [From Dilaudid] ons methylphenidate HCl Allergy Hallucinati Verified 01/15/19 15:02 [From Ritalin] ons morphine Allergy Hallucinati Verified 01/15/19 15:02 ons propofol Allergy Hallucinati Verified 01/15/19 15:02 ons quetiapine fumarate Allergy Hallucinati Verified 01/15/19 15:02 [From Seroquel] ons Sulfa (Sulfonamide Allergy Unknown Verified 01/15/19 15:02 Antibiotics) vancomycin Allergy Unknown Verified 01/15/19 15:02 ativan AdvReac Unknown Uncoded 01/15/19 14:17 Physical Exam Vitals: Vital Signs Temp Pulse Pulse Resp BP Pulse Ox 01/22/19 09:35 56 L 01/22/19 09:23 52 L 01/22/19 03:59 96.7 F L 51 L 16 143/63 95 01/21/19 20:40 62 01/21/19 20:30 60 01/21/19 20:27 96.7 F L 73 18 129/63 94 L 01/21/19 16:47 60 01/21/19 16:36 56 L 01/21/19 15:59 16 01/21/19 13:18 98.1 F 53 L 16 132/60 96 01/21/19 13:01 64 01/21/19 12:50 64 Intake and Output 01/21/19 01/22/19 01/22/19 22:59 06:59 14:59 Intake Total 590 Balance 590 Intake: Oral 590 Other: Voiding Method Toilet # Voids 1 1 Weight 104.581 kg Results - Lab Results Most recent lab results Calcium 9.7 mg/dL (8.4-10.2) 01/22/19 10:44 Phosphorus 3.2 mg/dL (2.5-4.5) 01/15/19 14:20 Magnesium 2.1 mg/dL (1.6-2.3) 01/15/19 14:20 01/22/19 10:44 01/22/19 10:44 Assessment and Plan Plan: Assessment: 1. Acute kidney injury mostly prerenal secondary to infection. Creatinine peaked at 1.4 this admission and is 1.26 today. 2. Chronic kidney disease stage III secondary to diabetic kidney disease with baseline creatinine near 1.2. 3. Right toe osteomyelitis maintained on IV daptomycin. 4. Chronic systolic CHF with ejection fraction of 35% maintained on oral diuretics. 5. Insulin-dependent diabetes mellitus. 6. Hypertension with chronic kidney disease. Controlled. Plan: Maintain Lasix 40 mg orally twice daily. Avoid nephrotoxins. Cleared for PICC line placement in his dominant arm. Follow up outpatient in the next 2 weeks. Thank you for the consultation. I will continue to follow the patient with you during his hospital stay.
[2019-01-22 11:58] LABS: Glucose,Whole Blood 80 mg/dL (75-99)
[2019-01-22 12:02] LABS: Neutrophils % (M) 78 %; Nucleated Red Blood Cells 3 /100 WBC (0-0); Total Cells Counted 100
[2019-01-22 12:03] LABS: Basophils # (M) 0.23 k/uL (0-0.2); Eosinophils # (M) 0.69 k/uL (0-0.7); Lymphocytes # (M) 1.04 k/uL (1.0-4.8); Monocytes # (M) 0.58 k/uL (0-1.0); Target Cells Present; WBC 11.5 k/uL (3.8-10.6)
[2019-01-22 12:04] LABS: Howell-Jolly Bodies Present
[2019-01-22 12:14] VITALS: TEMP 97.2
[2019-01-22 13:20] VITALS: PULSE 52
[2019-01-22] MEDS ORDERED: LIDOCAINE 1% INJ 10MG/ML (20 ML MDV) SQ ONE (14:40)
[2019-01-22] MEDS ORDERED: LIDOCAINE 1% INJ 10MG/ML (20 ML MDV) ONE (14:44)
--- NOTE | 2019-01-22 15:05 | IR ---
PICC LINE PLACEMENT: HISTORY: Infection requiring long-term antibiotic therapy PROCEDURE: Ultrasound and fluoroscopic guidance of PICC line placement. COMPLICATIONS: None ANESTHESIA: 1. 1% Lidocaine locally. FINDINGS/TECHNIQUE: The procedure was explained to the patient. The risks, complications, benefits and alternatives were discussed and any questions were answered. Informed consent was obtained. The patient was placed supine on the fluoroscopic table and prepped and draped in the usual sterile fash ion. Utilizing a 21 gauge needle and sonographic and fluoroscopic guidance, access in the right cep halic vein was achieved and there is placement of a 0.018 guidewire. The vein is patent. A 4-F willett th was placed over the guidewire. The guidewire and dilator were removed and a 4-F. PICC line was pl aced through the sheath with the tip at the level of the SVC. The sheath was removed, the catheter w as flushed and sutured into position. The patient was stable throughout the procedure and remained s table upon discharge from the Department of Radiology. The vein puncture was patent under ultrasound. A otoole scale image was obtained to document patency of the vein punctured. All elements of the maximal barrier technique were utilized. FLUOROSCOPY TIME: 0.2 minutes of fluoroscopy and one image submitted IMPRESSION: Successful PICC line placement under ultrasound and fluoroscopic guidance.
[2019-01-22 15:29] VITALS: BP 130/61; RESP 19
--- NOTE | 2019-01-22 23:37 | P.PN ---
Subjective Progress Note Date: 01/22/19 83-year-old male who is history of multiple hospitalizations regarding his diabetes, relatively poor immunity due to his prior splenectomy and has medical noncompliance with resulting hyperglycemia and frequent infections. He is cared for in the outpatient setting by a visiting storage management architect for the diabetic foot infection to the right foot. Apparently he's had this significant change of his status in the home setting where he became febrile confused and acutely ill and constantly was brought in the hospital. The patient has a history of tobacco smoking and has chronic lung disease. He did have some increasing coughing also. Because of his history of splenectomy with onset of his high- grade fever he was brought in the hospital and therapy has been initiated. With concerns to his sepsis the consult was requested. 01/22/2019 the patient is now done considerably better. Plans are for discharge to home. Wound culture shows evidence of staph aureus and evidence of underlying osteomyelitis. A course of outpatient intravenous antibiotic therapy is being arranged. Objective - Vital Signs Vital signs: Vital Signs Temp 97.2 F L 01/22/19 12:13 Pulse 52 L 01/22/19 13:30 Resp 19 01/22/19 15:27 BP 130/61 01/22/19 15:27 Pulse Ox 95 01/22/19 15:27 Intake & Output 01/22/19 01/22/19 01/23/19 06:59 18:59 06:59 Intake Total 590 1050 Balance 590 1050 Weight 104.581 kg Intake: Intake, IV Titration 100 Amount DAPTOmycin 650 mg In 100 Sodium Chloride 0.9% 50 ml @ 100 mls/hr IVPB Q[facility]H [facility] Rx#:[id number] Oral 590 950 Other: Voiding Method Toilet Toilet # Voids 1 4 - Exam 83-year-old male more awake and alert than noted nicky HEENT: Anicteric conjunctiva are pink and moist nasal mucosa grossly intact without significant lesions, there is no thrush. Neck: The neck is supple without significant lymphadenopathy or thyromegaly. Lungs: symmetrical bilateral air entry with fewcrackles to the left base, wheezing or scattered no bronchial sounds Heart: Regular rate and rhythm with an audible S1-S2, no S3 no S4. There is no significant murmur click or rub, PMI was nondisplaced. Abdomen: Positive bowel sounds soft and nontender without palpable masses or organomegaly. There was no guarding or rebound. Extremities: The upper extremities have excellent pulses they are symmetric, no significant petechiae or telangiectasia. No splinter hemorrhages were noted. Lower extremities evidence of some chronic edema and chronic venous stasis. Right foot shows evidence of the extensive abnormality to the second toe with the significant diabetic ulceration with likely underlying osteomyelitis to that second toe by the findings. There is no tenderness and diminished sensation as noted. There is erythema and warmth and some ascending to the warmth. Neuro: Awake alert oriented to person place and time. There are no acute new gross focal sensory motor deficits. - Labs CBC & Chem 7: 01/22/19 10:44 01/22/19 10:44 Labs: Abnormal Lab Results - Last 24 Hours (Table) 01/20/19 01/22/19 01/22/19 Range/Units 09:14 02:23 07:04 WBC (3.8-10.6) k/uL RBC (4.30-5.90) m/uL Hgb (13.0-17.5) gm/dL Hct (39.0-53.0) % RDW (11.5-15.5) % Plt Count (150-450) k/uL Neutrophils # (Manual) (1.3-7.7) k/uL Basophils # (Manual) (0-0.2) k/uL Nucleated RBCs (0-0) /100 WBC BUN (9-20) mg/dL Creatinine (0.66-1.25) mg/dL POC Glucose (mg/dL) 352 H 271 H (75-99) mg/dL Hemoglobin A1c 9.8 H (4.0-6.0) % 01/22/19 01/22/19 01/22/19 Range/Units 10:44 10:44 11:39 WBC 11.5 H (3.8-10.6) k/uL RBC 3.95 L (4.30-5.90) m/uL Hgb 10.0 L (13.0-17.5) gm/dL Hct 31.6 L (39.0-53.0) % RDW 16.3 H (11.5-15.5) % Plt Count 713 H (150-450) k/uL Neutrophils # (Manual) 8.97 H (1.3-7.7) k/uL Basophils # (Manual) 0.23 H (0-0.2) k/uL Nucleated RBCs 3 H (0-0) /100 WBC BUN 41 H (9-20) mg/dL Creatinine 1.26 H (0.66-1.25) mg/dL POC Glucose (mg/dL) 68 L (75-99) mg/dL Hemoglobin A1c (4.0-6.0) % Microbiology - Last 24 Hours (Table) 01/19/19 13:40 Blood Culture - Preliminary Blood No Growth after 72 hours Assessment and Plan (1) Community acquired pneumonia Narrative/Plan: 83 oh male who has multiple medical troubles including diabetes and history of splenectomy presents with an alteration of his mental status. Patient has evidence of the worsening right foot diabetic ulceration with likely osteomyelitis based on the findings of the toe and has fat layer exposed. Local wound care with the silver dressing is requested. Elevation of the foot is requested. Antibiotic therapy at this time as directed for community acquired pneumonia with Rocephin and azithromycin since he did have a few pulmonary symptoms before coming to hospital. With a splenectomy antibiotic therapy is very important since he did have a fever. Blood cultures and wound culture is in process. So further help direct us therapy. Imaging to the foot will be requested to evaluate the extent of the infection 01/22/2019 bone scan has come back as positive for underlying osteomyelitis and constantly outpatient intravenous antibiotic therapy being arranged. Given his underlying acute kidney injury and chronic kidney disease vancomycin being avoided daptomycin being arranged to the office on a daily basis. Family will bring in the office. IV access started in place. Follow with nephrology in the outpatient setting. Local wound care is with the silver alginate dressing. Status: Acute Code(s): J18.9 - PNEUMONIA, UNSPECIFIED ORGANISM SNOMED Code(s): 713327869 (2) Diabetic foot ulcer associated with type 2 diabetes mellitus, with fat layer exposed Status: Acute Code(s): E11.621 - TYPE 2 DIABETES MELLITUS WITH FOOT ULCER; L97.502 - NON-PRS CHRONIC ULCER OTH PRT UNSP FOOT W FAT LAYER EXPOSED SNOMED Code(s): 9968357510268
== END 2019-01-22 16:23 | disposition home or self-care (01) | DRG 190 ==
LOC: EC 14:00 → 3SCARD 15:19 → 3NMEDONC 01-18 10:52
PROVIDERS: ADMIT Family Medicine; ATTEND Family Medicine
PROC: 02HV33Z Insertion of Infusion Device into Superior Vena Cava, Percutaneous Approach (ICD-10-PCS; principal; 2019-01-22 14:23)
DX: J44.0 Chronic obstructive pulmonary disease with (acute) lower respiratory infection (principal); J18.9 Pneumonia, unspecified organism; I50.43 Acute on chronic combined systolic (congestive) and diastolic (congestive) heart failure; J96.91 Respiratory failure, unspecified with hypoxia; C64.2 Malignant neoplasm of left kidney, except renal pelvis; E87.1 Hypo-osmolality and hyponatremia; M86.9 Osteomyelitis, unspecified; I13.0 Hypertensive heart and chronic kidney disease with heart failure and stage 1 through stage 4 chronic kidney disease, or unspecified chronic kidney disease; M00.9 Pyogenic arthritis, unspecified; N17.9 Acute kidney failure, unspecified; J44.1 Chronic obstructive pulmonary disease with (acute) exacerbation; J20.9 Acute bronchitis, unspecified; B95.62 Methicillin resistant Staphylococcus aureus infection as the cause of diseases classified elsewhere; D50.0 Iron deficiency anemia secondary to blood loss (chronic); E11.22 Type 2 diabetes mellitus with diabetic chronic kidney disease; E11.40 Type 2 diabetes mellitus with diabetic neuropathy, unspecified; E11.621 Type 2 diabetes mellitus with foot ulcer; E11.65 Type 2 diabetes mellitus with hyperglycemia; E11.69 Type 2 diabetes mellitus with other specified complication; E66.01 Morbid (severe) obesity due to excess calories; Z68.34 Body mass index [BMI] 34.0-34.9, adult; E78.5 Hyperlipidemia, unspecified; E87.5 Hyperkalemia; F32.9 Major depressive disorder, single episode, unspecified; F41.9 Anxiety disorder, unspecified; G47.33 Obstructive sleep apnea (adult) (pediatric); I08.1 Rheumatic disorders of both mitral and tricuspid valves; I25.10 Atherosclerotic heart disease of native coronary artery without angina pectoris; I25.2 Old myocardial infarction; I27.20 Pulmonary hypertension, unspecified; I48.0 Paroxysmal atrial fibrillation; K55.20 Angiodysplasia of colon without hemorrhage; K86.9 Disease of pancreas, unspecified; L97.519 Non-pressure chronic ulcer of other part of right foot with unspecified severity; M19.041 Primary osteoarthritis, right hand; M19.042 Primary osteoarthritis, left hand; N18.3 Chronic kidney disease, stage 3 (moderate); N40.0 Benign prostatic hyperplasia without lower urinary tract symptoms; Z79.2 Long term (current) use of antibiotics; Z79.4 Long term (current) use of insulin; Z79.51 Long term (current) use of inhaled steroids; Z79.899 Other long term (current) drug therapy; Z82.49 Family history of ischemic heart disease and other diseases of the circulatory system; Z82.5 Family history of asthma and other chronic lower respiratory diseases; Z85.528 Personal history of other malignant neoplasm of kidney; Z86.14 Personal history of Methicillin resistant Staphylococcus aureus infection; Z86.73 Personal history of transient ischemic attack (TIA), and cerebral infarction without residual deficits; Z87.891 Personal history of nicotine dependence; Z90.411 Acquired partial absence of pancreas; Z90.5 Acquired absence of kidney; Z90.81 Acquired absence of spleen; Z91.19 Patient's noncompliance with other medical treatment and regimen; Z95.1 Presence of aortocoronary bypass graft; Z88.5 Allergy status to narcotic agent; Z88.0 Allergy status to penicillin; Z88.2 Allergy status to sulfonamides; Z88.8 Allergy status to other drugs, medicaments and biological substances; Z99.89 Dependence on other enabling machines and devices
CPT/HCPCS: 36415; 36573; 71046; 78315; 80048; 80053; 81003; 82728; 83036; 83540; 83550; 83605; 83735; 83880; 84100; 84145; 84443; 84484; 85025; 85027; 85610; 85652; 85730; 86140; 87040; 87070; 87075; 87077; 87086; 87186; 87205; 87502; 93005; 93306; 94640; 94760; 96360; 96365; 96366; 96367; 99285

== ENCOUNTER 2019-02-10 18:22 | Inpatient (IN) | payer MEDICARE, BC ==
--- NOTE | 2019-02-10 18:51 | ED ---
Recheck HPI - General Chief Complaint: Recheck/Abnormal Lab/Rx Stated Complaint: Swollen foot Time Seen by Provider: 02/10/19 18:49 Source: patient Mode of arrival: ambulatory Limitations: no limitations - History of Present Illness Initial Comments: 83-year-old male with history of extensive past medical history including diabetes, hypertension, coronary artery disease with previous bypass, diabetic neuropathy as well as chronic diabetic wounds presenting to emergency Department for concern of field outpatient treatment on antibiotics. Patient states that for the past 2 days he has noticed increasing swelling and redness of his right second digit foot and distal right lower extremity. He states is warm to touch he has had chills. Patient states he is currently on infusions of daptomycin outpatient as recommended by infectious disease as he was recently discharged from [facility] for osteomyelitis, pneumonia, CHF exacerbation. William correa states that his temperature at home has been 99.8 Fahrenheit. Patient states he has had an evaluation from pulmonology and was stated that his lungs appear to be clearing. Patient states he always has a high white count. Patient states he has had occasional shortness of breath he states this has been persistent throughout his last hospitalization and upon discharge. Patient states is due to his 40% lung function. Patient denies any hemoptysis, or chest pain. Patient denies any chest pressure. Patient states he has had a chronic cough with phlegm production denies any changes. Family is concerned that he is on daptomycin and continues to have what appears to be spreading of infection is within the past Levaquin has cleared his infections without difficulty. Distally at this point they feel the benefits outweigh the risks. Remaining review of systems negative. Upon arrival patient appears well no signs of acute distress. Vital signs within except a limits patient does not appear overtly toxic or septic. - Related Data Home Medications Medication Instructions Recorded Confirmed Montelukast [Singulair] 10 mg PO HS 12/21/14 02/10/19 Pravastatin Sodium 40 mg PO HS 02/07/16 02/10/19 Acetaminophen Tab [Tylenol] 1,000 mg PO BID 03/17/17 02/10/19 Insulin Aspart [NovoLOG Flexpen] See Protocol SQ AC-TID PRN 11/12/17 02/10/19 Budesonide-Formot 160-4.5 Mcg 2 puff INHALATION RT-BID 11/13/17 02/10/19 [Symbicort 160-4.5 Mcg Inhaler] Lisinopril [Zestril] 5 mg PO DAILY 01/26/18 02/10/19 Escitalopram Oxalate [Lexapro] 10 mg PO HS 04/19/18 02/10/19 Cyanocobalamin (Vitamin B-12) 1,000 mcg PO TUFR 01/15/19 02/10/19 [Vitamin B-12] Insulin Detemir [Levemir Flextouch] 60 units SQ HS 02/10/19 02/10/19 Magnesium Oxide [Mag-Ox] 400 mg PO HS 02/10/19 02/10/19 Metoprolol Tartrate [Lopressor] 12.5 mg PO BID 02/10/19 02/10/19 Previous Rx's Medication Instructions Recorded Pantoprazole [Protonix] 40 mg PO DAILY #30 tab 03/21/17 DAPTOmycin [Cubicin Rf] 500 mg IVPB DAILY #42 vial 01/22/19 Fluticasone Nasal [place] [Flonase 2 spray EA NOSTRIL DAILY #1 bottle 01/22/19 Nasal [place]] Furosemide [Lasix] 40 mg PO BID #60 tab 01/22/19 Insulin Aspart [NovoLOG Flexpen] 17 units SQ TID-W/MEALS #0 01/22/19 Ipratropium-Albuterol Nebulize 3 ml INHALATION RT-QID #0 01/22/19 [Duoneb 0.5 mg-3 mg/3 ml Soln] Allergies Allergy/AdvReac Type Severity Reaction Status Date / Time Penicillins Allergy Unknown Rash/Hives Verified 02/10/19 19:55 atorvastatin calcium Allergy Unknown Verified 02/10/19 19:55 [From Lipitor] clonazepam [From Klonopin] Allergy Hallucinati Verified 02/10/19 19:55 ons codeine Allergy Hallucinati Verified 02/10/19 19:55 ons haloperidol [From Haldol] Allergy Hallucinati Verified 02/10/19 19:55 ons haloperidol lactate Allergy Hallucinati Verified 02/10/19 19:55 [From Haldol] ons hydromorphone HCl Allergy Hallucinati Verified 02/10/19 19:55 [From Dilaudid] ons methylphenidate HCl Allergy Hallucinati Verified 02/10/19 19:55 [From Ritalin] ons morphine Allergy Hallucinati Verified 02/10/19 19:55 ons propofol Allergy Hallucinati Verified 02/10/19 19:55 ons quetiapine fumarate Allergy Hallucinati Verified 02/10/19 19:55 [From Seroquel] ons Sulfa (Sulfonamide Allergy Unknown Verified 02/10/19 19:55 Antibiotics) vancomycin Allergy Unknown Verified 02/10/19 19:55 ativan AdvReac Unknown Uncoded 02/10/19 18:48 Review of Systems ROS Statement: Those systems with pertinent positive or pertinent negative responses have been documented in the HPI. ROS Other: All systems not noted in ROS Statement are negative. Past Medical History Past Medical History: Atrial Fibrillation, Coronary Artery Disease (CAD), Cancer, Heart Failure, COPD, CVA/TIA, Diabetes Mellitus, Eye Disorder, GI Bleed, Hyperlipidemia, Hypertension, Myocardial Infarction (HI), Osteoarthritis (OA), Prostate Disorder, Skin Disorder, Sleep Apnea/CPAP/BIPAP Additional Past Medical History / Comment(s): Anemia, blood and iron transfusions, right leg cellulitis, 2013 L renal cancer with surgery - partial nephrectomy/spleenectomy/distal portion of pancreas removed at [facility], IDDM type II, TIA, HI unknown date, BPH, gastritis, small hiatal hernia, past discitis T9-T10, arthritis bilateral hands/back, TARIQ - does not tolerate his CPAP, past R great toe ulcer/infection. Last Myocardial Infarction Date:: UNKNOWN History of Any Multi-Drug Resistant Organisms: MRSA Date of last positivie culture/infection: 01/17/19 MDRO Source:: RIGHT TOE Past Surgical History: Coronary Bypass/CABG, Heart Catheterization Additional Past Surgical History / Comment(s): Partial L nephrectomy, distal pancreatectomy, splenectomy - at [place]2000 CABG - 3 vessel, EGD, colonosc opy, deviated septum surgery, skin/oral lesion removals, R carpal tunnel release, bilateral cataract removal, bilateral laser eye surgery for "leakage". Past Anesthesia/Blood Transfusion Reactions: Previous Problems w/ Anesthesia Additional Past Anesthesia/Blood Transfusion Reaction / Comment(s): 'TROUBLE COMING OUT OF ANESTHESIA' - DELUSIONAL. Patient has received blood in past without reaction. Past Psychological History: Anxiety, Depression Smoking Status: Never smoker Past Alcohol Use History: None Reported Past Drug Use History: None Reported - Past Family History Father Family Medical History: Myocardial Infarction (HI) Mother Family Medical History: COPD General Exam - General Exam Comments Initial Comments: General: The patient is awake and alert, in no distress Eye: +3 mm pupils are equal, round and reactive to light, extra-ocular movements are intact. No nystagmus. There is normal conjunctiva bilaterally. No signs of icterus. Ears, nose, mouth and throat: There are moist mucous membranes and no oral lesions. Neck: The neck is supple, there is no tenderness or JVD. Cardiovascular: There is a regular rate and rhythm. No murmur, rub or gallop is appreciated. Respiratory: Lungs are clear to auscultation, respirations are non-labored, breath sounds are equal. No wheezes, stridor, rales, or rhonchi. Gastrointestinal: Soft, non-distended, non-tender abdomen without masses or organomegaly noted. There is no rebound or guarding present. Musculoskeletal: Normal ROM, no tenderness. Strength 5/5. Sensation intact. Radial pulses equal bilaterally 2+. Neurological: A&O x 3. CN II-XII intact grossly, There are no obvious motor or sensory deficits. Coordination appears grossly intact. Speech is normal. Skin: Skin is warm and dry and no rashes or lesions are noted. Right LE pitting edema, confronted redness of the right lower extremity that extends onto the dorsum of the foot. Patient has draining diabetic ulcer on the second digit of the right foot. Pain to palpation of the right posterior calf. (+) Homans, no palpable cord or mass. Psychiatric: Cooperative, appropriate mood & affect, normal judgment. Limitations: no limitations Course Vital Signs 02/10/19 02/10/19 02/10/19 18:44 20:00 21:00 Temperature 97.9 F 97.9 F Pulse Rate 76 85 89 Respiratory 18 19 19 Rate Blood Pressure 133/59 150/72 148/75 O2 Sat by Pulse 95 95 96 Oximetry 02/10/19 02/11/19 22:20 00:13 Temperature 98.4 F 97.8 F Pulse Rate 89 63 Respiratory 16 18 Rate Blood Pressure 143/77 138/70 O2 Sat by Pulse 96 94 L Oximetry - Reevaluation(s) Reevaluation #1: Spoke with admitting provider as Dr. Jo was in a trauma at time of return phone call. He is agreeable to admission at this time as well as antibiotic regimen he recommended a consultation of Dr. Loza and Dr. Mae patient results were discussed with family and patient were agreeable to admission as well. Patient remains stable nontoxic appearing ER. 02/10/19 22:09 Medical Decision Making - Medical Decision Making 83-year-old male with history of osteomyelitis recent admission and discharge for pneumonia on daptomycin. Patient had no erythema at this time or lower extremity edema. The past 2 days patient has had increased redness swelling of the right lower extremity swelling of the left lower extremity. Ultrasound neg ative for DVT. Given the warmth and significant redness concern for infection. Patient states that he is compliant with antibiotics. This I do feel this failed outpatient treatment. Patient has slight increase in leukocytosis her previous laboratory studies. He was given a dose of Levaquin in the emergency department after discussing black box warnings limited like to proceed with the medication as they feel as helped in the past better than other medications. Patient does not appear overtly toxic or septic. Afebrile. I spoke with patient's admitting provider Dr Umanzor, who is familiar with the patient's case is agreeable with this care plan and recommended both infectious disease as well as vascular consultation. Orders were placed for these consultations. No further orders. Family and patient are agreeable to admission at this time patient is transferred to floor in stable condition appearing well hemodynamically stable. - Lab Data Result diagrams: 02/10/19 19:34 02/10/19 19:34 Lab Results 02/10/19 02/10/19 02/10/19 Range/Units 19:34 19:34 19:34 WBC 13.4 H (3.8-10.6) k/uL RBC 3.72 L (4.30-5.90) m/uL Hgb 9.4 L (13.0-17.5) gm/dL Hct 29.7 L (39.0-53.0) % MCV 79.8 L (80.0-100.0) fL MCH 25.3 (25.0-35.0) pg MCHC 31.7 (31.0-37.0) g/dL RDW 18.9 H (11.5-15.5) % Plt Count 464 H (150-450) k/uL Neutrophils % 74 % Lymphocytes % 10 % Monocytes % 8 % Eosinophils % 4 % Basophils % 2 % Neutrophils # 9.9 H (1.3-7.7) k/uL Lymphocytes # 1.3 (1.0-4.8) k/uL Monocytes # 1.1 H (0-1.0) k/uL Eosinophils # 0.6 (0-0.7) k/uL Basophils # 0.2 (0-0.2) k/uL Hypochromasia Moderate Poikilocytosis Slight Anisocytosis Slight PT (9.0-12.0) sec INR (<1.2) APTT (22.0-30.0) sec Sodium 136 L (137-145) mmol/L Potassium 4.6 (3.5-5.1) mmol/L Chloride 101 (98-107) mmol/L Carbon Dioxide 25 (22-30) mmol/L Anion Gap 10 mmol/L BUN 26 H (9-20) mg/dL Creatinine 1.08 (0.66-1.25) mg/dL Est GFR (CKD-EPI)AfAm 74 (>60 ml/min/1.73 sqM) Est GFR (CKD-EPI)NonAf 64 (>60 ml/min/1.73 sqM) Glucose 223 H (74-99) mg/dL Plasma Lactic Acid Dean 1.1 (0.7-2.0) mmol/L Calcium 9.4 (8.4-10.2) mg/dL Total Bilirubin 0.3 (0.2-1.3) mg/dL AST 31 (17-59) U/L ALT 32 (21-72) U/L Alkaline Phosphatase 71 (38-126) U/L Total Protein 6.9 (6.3-8.2) g/dL Albumin 3.8 (3.5-5.0) g/dL Urine Color Urine Appearance (Clear) Urine pH (5.0-8.0) Ur Specific [place] (1.001-1.035) Urine Protein (Negative) Urine Glucose (UA) (Negative) Urine Ketones (Negative) Urine Blood (Negative) Urine Nitrite (Negative) Urine Bilirubin (Negative) Urine Urobilinogen (<2.0) mg/dL Ur Leukocyte Esterase (Negative) 02/10/19 02/10/19 Range/Units 19:34 20:29 WBC (3.8-10.6) k/uL RBC (4.30-5.90) m/uL Hgb (13.0-17.5) gm/dL Hct (39.0-53.0) % MCV (80.0-100.0) fL MCH (25.0-35.0) pg MCHC (31.0-37.0) g/dL RDW (11.5-15.5) % Plt Count (150-450) k/uL Neutrophils % % Lymphocytes % % Monocytes % % Eosinophils % % Basophils % % Neutrophils # (1.3-7.7) k/uL Lymphocytes # (1.0-4.8) k/uL Monocytes # (0-1.0) k/uL Eosinophils # (0-0.7) k/uL Basophils # (0-0.2) k/uL Hypochromasia Poikilocytosis Anisocytosis PT 11.1 (9.0-12.0) sec INR 1.0 (<1.2) APTT 29.2 (22.0-30.0) sec Sodium (137-145) mmol/L Potassium (3.5-5.1) mmol/L Chloride (98-107) mmol/L Carbon Dioxide (22-30) mmol/L Anion Gap mmol/L BUN (9-20) mg/dL Creatinine (0.66-1.25) mg/dL Est GFR (CKD-EPI)AfAm (>60 ml/min/1.73 sqM) Est GFR (CKD-EPI)NonAf (>60 ml/min/1.73 sqM) Glucose (74-99) mg/dL Plasma Lactic Acid [place] (0.7-2.0) mmol/L Calcium (8.4-10.2) mg/dL Total Bilirubin (0.2-1.3) mg/dL AST (17-59) U/L ALT (21-72) U/L Alkaline Phosphatase (38-126) U/L Total Protein (6.3-8.2) g/dL Albumin (3.5-5.0) g/dL Urine Color Light Yellow Urine Appearance Clear (Clear) Urine pH 6.5 (5.0-8.0) Ur Specific [place] 1.012 (1.001-1.035) Urine Protein Trace H (Negative) Urine Glucose (UA) 1+ H (Negative) Urine Ketones Negative (Negative) Urine Blood Negative (Negative) Urine Nitrite Negative (Negative) Urine Bilirubin Negative (Negative) Urine Urobilinogen <2.0 (<2.0) mg/dL Ur Leukocyte Esterase Negative (Negative) - EKG Data EKG Comments: Ventricular rate 82 bpm, QRS worship 114 ms, QT/QTC 434/507 ms. Hard to discern if this is atrial fibrillation, appears regular. P waves no apparent.Low voltage QRS. Nonspecific ST/T wave abnormality just superior on the EKG of 01/15/2019. There is no acute changes in comparison with previous EKG EKG per se interpreted and reviewed by my attending provider. Disposition Clinical Impression: Cellulitis, Failure of outpatient treatment, Leukocytosis, Diabetic ulcer of right foot Disposition: ADMITTED IP TO THIS HOSP Condition: Stable Is patient prescribed a controlled substance at d/c from ED?: No Time of Disposition: 00:17
[2019-02-10 19:56] LABS: Anisocytosis Slight; Basophils # (A) 0.2 k/uL (0-0.2); Basophils % (A) 2 %; Eosinophils # (A) 0.6 k/uL (0-0.7); Eosinophils % (A) 4 %; HCT 29.7 % (39.0-53.0); HGB 9.4 gm/dL (13.0-17.5); Hypochromasia Moderate; Lymphocytes # (A) 1.3 k/uL (1.0-4.8); Lymphocytes % (A) 10 %; MCH 25.3 pg (25.0-35.0); MCHC 31.7 g/dL (31.0-37.0); MCV 79.8 fL (80.0-100.0); Mean Platelet Volume 7.1; Monocytes # (A) 1.1 k/uL (0-1.0); Monocytes % (A) 8 %; Neutrophils # (A) 9.9 k/uL (1.3-7.7); Neutrophils % (A) 74 %; Platelet Count 464 k/uL (150-450); Poikilocytosis Slight; RBC 3.72 m/uL (4.30-5.90); RDW 18.9 % (11.5-15.5); WBC 13.4 k/uL (3.8-10.6)
[2019-02-10] MEDS ORDERED: LEVOFLOXACIN 750MG-D5W PMX 750 MG in DEXTROSE/WATER 1 150ML.BAG IVPB STA (20:00)
[2019-02-10 20:01] LABS: Partial Thromboplastin Time 29.2 sec (22.0-30.0); Prothrombin Time 11.1 sec (9.0-12.0)
[2019-02-10 20:02] LABS: Albumin 3.8 g/dL (3.5-5.0); Calcium 9.4 mg/dL (8.4-10.2); Potassium 4.6 mmol/L (3.5-5.1); Total Bilirubin 0.3 mg/dL (0.2-1.3); Total Protein 6.9 g/dL (6.3-8.2)
[2019-02-10] MEDS: SODIUM CHLORIDE 0.9% 1,000 ML IV SCH (20:35)
[2019-02-10] MEDS: SODIUM CHLORIDE 0.9% 500 ML 500 ML IV SCH (20:38)
[2019-02-10 20:48] LABS: Appearance,Urine Clear (Clear); Bilirubin,Urine Negative (Negative); Blood,Urine Negative (Negative); Color,Urine Light Yellow; Glucose,Urine (UA) 1+ (Negative); Ketones,Urine Negative (Negative); Leukocyte Esterase,Urine Negative (Negative); Nitrite,Urine Negative (Negative); PH, Urine 6.5 (5.0-8.0); Protein,Urine Trace (Negative); Specific Gravity,Urine 1.012 (1.001-1.035); Urobilinogen,Urine <2.0 mg/dL (<2.0)
--- NOTE | 2019-02-10 21:32 | US ---
EXAMINATION TYPE: US venous doppler duplex LE RT DATE OF EXAM: 02/10/2019 9:21 PM COMPARISON: NONE CLINICAL HISTORY: right leg swelling, redness. Edema right leg. Wound right 2nd toe. Cellulitis right lower leg. Patient on blood thinner SIDE PERFORMED: right TECHNIQUE: The lower extremity deep venous system is examined utilizing real time linear array sonog josh with graded compression, doppler sonography and color-flow sonography. VESSELS IMAGED: External Iliac Vein (EIV) Common Femoral Vein Deep Femoral Vein Greater Saphenous Vein * Femoral Vein Popliteal Vein Small Saphenous Vein * Proximal Calf Veins (* superficial vessels) Right Leg: No evidence of DVT as visualized IMPRESSION: No evidence of deep venous thrombosis in the right leg. Negative exam.
--- NOTE | 2019-02-10 21:41 | XR ---
EXAMINATION TYPE: XR chest 2V DATE OF EXAM: 02/10/2019 COMPARISON: 02/08/2019 HISTORY: Fever TECHNIQUE: Frontal and lateral views of the chest are obtained. FINDINGS: There is some coarsening of interstitial markings. There is no heart failure. Heart is top normal in size. There are sternal wires. There is no pleural effusion. There is old healed left rib fracture. IMPRESSION: No active cardiopulmonary disease. Pulmonary interstitial fibrosis. Old left-sided heale d rib fractures. No change compared to old exam.
[2019-02-10] MEDS ORDERED: NALOXONE 0.4 MG/ML 1 ML VIAL IV PRN (22:10)
[2019-02-11] MEDS: IPRATROPIUM-ALBUTEROL 3 ML NEB INHALATION SCH ×4 (07:32→19:40)
[2019-02-11] MEDS: SYMBICORT 160-4.5 MCG INHALER INHALATION SCH ×2 (07:32→19:40)
[2019-02-11 07:37] LABS: Glucose,Whole Blood 311 mg/dL (75-99)
[2019-02-11] MEDS: INSULIN DETEMIR (LEVEMIR) 100 UNIT/ML SYR SQ SCH (09:05)
[2019-02-11] MEDS: SODIUM CHLORIDE 0.9% 1,000 ML IV SCH ×2 (09:06→21:32)
[2019-02-11] MEDS: ACETAMINOPHEN TAB 500 MG TAB PO SCH ×2 (09:23→20:31)
[2019-02-11] MEDS: METOPROLOL TARTRATE 12.5 MG TAB PO SCH ×2 (09:23→20:31)
[2019-02-11] MEDS: PANTOPRAZOLE 40 MG TABLET PO SCH (09:23)
[2019-02-11] MEDS: FUROSEMIDE 40 MG TAB PO SCH ×2 (09:23→20:31)
[2019-02-11] MEDS: LISINOPRIL 5 MG TAB PO SCH (09:23)
[2019-02-11] MEDS: DAPTOmycin 500 MG in SODIUM CHLORIDE 0.9% 50 ML IVPB SCH (09:28)
[2019-02-11] MEDS: FLUTICASONE 50MCG/SPRAY NASAL 16GM EA NOSTRIL SCH (09:28)
--- NOTE | 2019-02-11 10:05 | P.CONS ---
History of Present Illness - Reason for Consult Consult date: 02/11/19 Chronic wound right foot - History of Present Illness 83-year-old male with history of multiple hospitalizations regarding his diabetes, relatively poor immunity due to his prior splenectomy and medical noncompliance with resulting hyperglycemia and frequent infections. He is cared for in the outpatient setting by a visiting digital circuit designer for the diabetic foot infection to the right foot. He had a recent hospitalization January 15 through January 22 which time he was treated for acute osteomyelitis right foot and was discharged with a PICC line in place and daptomycin. Patient has been receiving IV antibiotics at [facility] office and he has followed up with Dr. Key at the wound healing center most recently on February 07. Patient states for the past 2 days he has had increased redness and swelling to the right lower leg and right toe. He denies having any fever or chills, no change in appetite. He came into [facility] emergency center for evaluation and found to be afebrile, white count 13.4, BUN 26 creatinine 1.08, lactic acid 1.1, albumin 3.8, blood sugar 223. Chest x-ray showed no acute card pulmonary disease. Ultrasound of the right lower extremity was negative for DVT. Urinalysis clear with nitrate and leukoesterase negative. His last hemoglobin A1c on January 20 was 9.8. Patient metastases that his blood sugars have been running quite high at home. Patient has been admitted to the [facility] floor. He was provided 1 dose of Levaquin and 1 L of IV fluids in the emergency center. Patient states that swelling to the right lower extremity is much improved since he was admitted. Review of Systems Constitutional: Reports fatigue, Denies anorexia, Denies chills, Denies fever, Denies poor appetite Eyes: denies blurred vision, denies pain Ears, nose, mouth and throat: Denies dysphagia, Denies headache, Denies nasal congestion, Denies nasal discharge, Denies sore throat, Denies vertigo Cardiovascular: Denies chest pain, Denies decreased exercise tolerance, Denies dyspnea on exertion, Denies leg edema, Denies lightheadedness, Denies shortness of breath, Denies syncope Respiratory: Denies cough, Denies cough with sputum, Denies dyspnea, Denies excessive sputum, Denies hemoptysis, Denies home oxygen, Denies wheezing Gastrointestinal: Denies abdominal pain, Denies diarrhea, Denies loss of appetite, Denies nausea, Denies vomiting Genitourinary: Denies dysuria, Denies urinary retention Musculoskeletal: Denies muscle weakness, Denies myalgias Integumentary: Reports color changes, Reports darkening of skin, Reports wounds, Denies pruritus, Denies rash Neurological: Denies change in mentation, Denies change in speech, Denies gait dysfunction, Denies numbness, Denies weakness Psychiatric: Denies anxiety, Denies depression Endocrine: Reports high blood sugars, Denies fatigue, Denies weight change Past Medical History Past Medical History: Atrial Fibrillation, Coronary Artery Disease (CAD), Ca ncer, Heart Failure, COPD, CVA/TIA, Diabetes Mellitus, Eye Disorder, GI Bleed, Hyperlipidemia, Hypertension, Myocardial Infarction (CT), Osteoarthritis (OA), Prostate Disorder, Skin Disorder, Sleep Apnea/CPAP/BIPAP Additional Past Medical History / Comment(s): Anemia, blood and iron transfusions, right leg cellulitis, 2013 L renal cancer with surgery - partial nephrectomy/spleenectomy/distal portion of pancreas removed at [facility], IDDM type II, TIA, CT unknown date, BPH, gastritis, small hiatal hernia, past discitis T9-T10, arthritis bilateral hands/back, TARIQ - does not tolerate his CPAP, past R great toe ulcer/infection. Last Myocardial Infarction Date:: UNKNOWN History of Any Multi-Drug Resistant Organisms: MRSA Year Discovered:: 01/17/19 MDRO Source:: RIGHT TOE Past Surgical History: Coronary Bypass/CABG, Heart Catheterization Additional Past Surgical History / Comment(s): Partial L nephrectomy, distal pancreatectomy, splenectomy - at [place]2000 CABG - 3 vessel, EGD, colonoscopy, deviated septum surgery, skin/oral lesion removals, R carpal tunnel release, bilateral cataract removal, bilateral laser eye surgery for "leakage". Past Anesthesia/Blood Transfusion Reactions: Previous Problems w/ Anesthesia Additional Past Anesthesia/Blood Transfusion Reaction / Comm: 'TROUBLE COMING OUT OF ANESTHESIA' - DELUSIONAL. Patient has received blood in past without reaction. Past Psychological History: Anxiety, Depression Additional Psychological History / Comment(s): Patient states he never smoked. No marijuana or illicit drug use. No alcohol use. Patient resides with his spouse. He uses a cane or walker to ambulate. He no longer drives. His pulse tries and manages his medications. 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 Smoking Status: Never smoker Past Alcohol Use History: None Reported Past Drug Use History: None Reported - Past Family History Father Family Medical History: Myocardial Infarction (CT) Mother Family Medical History: COPD Medications and Allergies Home Medications Medication Instructions Recorded Confirmed Type RX: Montelukast [Singulair] 10 mg PO HS 12/21/14 02/10/19 History RX: Pravastatin Sodium 40 mg PO HS 02/07/16 02/10/19 History RX: Acetaminophen Tab [Tylenol] 1,000 mg PO BID 03/17/17 02/10/19 History RX: Pantoprazole [Protonix] 40 mg PO DAILY #30 tab 03/21/17 02/10/19 Rx RX: Insulin Aspart [NovoLOG See Protocol SQ AC-TID PRN 11/12/17 02/10/19 History Flexpen] RX: Budesonide-Formot 160-4.5 Mcg 2 puff INHALATION RT-BID 11/13/17 02/10/19 History [Symbicort 160-4.5 Mcg Inhaler] RX: Lisinopril [Zestril] 5 mg PO DAILY 01/26/18 02/10/19 History RX: Escitalopram Oxalate [Lexapro] 10 mg PO HS 04/19/18 02/10/19 History RX: Cyanocobalamin (Vitamin B-12) 1,000 mcg PO TUFR 01/15/19 02/10/19 History [Vitamin B-12] RX: DAPTOmycin [Cubicin Rf] 500 mg IVPB DAILY #42 vial 01/22/19 02/10/19 Rx RX: Fluticasone Nasal [place] 2 spray EA NOSTRIL DAILY #1 bottle 01/22/19 02/10/19 Rx [Flonase Nasal [place]] RX: Furosemide [Lasix] 40 mg PO BID #60 tab 01/22/19 02/10/19 Rx RX: Insulin Aspart [NovoLOG 17 units SQ TID-W/MEALS #0 01/22/19 02/10/19 Rx Flexpen] RX: Ipratropium-Albuterol Nebulize 3 ml INHALATION RT-QID #0 01/22/19 02/10/19 Rx [Duoneb 0.5 mg-3 mg/3 ml Soln] Metoprolol Tartrate [Lopressor] 12.5 mg PO BID 02/10/19 02/10/19 History RX: Insulin Detemir [Levemir 60 units SQ HS 02/10/19 02/10/19 History Flextouch] RX: Magnesium Oxide [Mag-Ox] 400 mg PO HS 02/10/19 02/10/19 History Allergies Allergy/AdvReac Type Severity Reaction Status Date / Time Penicillins Allergy Unknown Rash/Hives Verified 02/10/19 19:55 atorvastatin calcium Allergy Unknown Verified 02/10/19 19:55 [From Lipitor] clonazepam [From Klonopin] Allergy Hallucinati Verified 02/10/19 19:55 ons codeine Allergy Hallucinati Verified 02/10/19 19:55 ons haloperidol [From Haldol] Allergy Hallucinati Verified 02/10/19 19:55 ons haloperidol lactate Allergy Hallucinati Verified 02/10/19 19:55 [From Haldol] ons hydromorphone HCl Allergy Hallucinati Verified 02/10/19 19:55 [From Dilaudid] ons methylphenidate HCl Allergy Hallucinati Verified 02/10/19 19:55 [From Ritalin] ons morphine Allergy Hallucinati Verified 02/10/19 19:55 ons propofol Allergy Hallucinati Verified 02/10/19 19:55 ons quetiapine fumarate Allergy Hallucinati Verified 02/10/19 19:55 [From Seroquel] ons Sulfa (Sulfonamide Allergy Unknown Verified 02/10/19 19:55 Antibiotics) vancomycin Allergy Unknown Verified 02/10/19 19:55 ativan AdvReac Unknown Uncoded 02/10/19 18:48 Physical Exam Vitals: Vital Signs Temp Pulse Pulse Resp BP BP Pulse Ox 02/11/19 08:00 97.9 F 79 16 165/77 93 L 02/11/19 07:43 68 02/11/19 07:33 68 02/11/19 07:24 97.4 F L 64 18 142/86 96 02/11/19 00:13 97.8 F 63 18 138/70 94 L 02/10/19 22:20 98.4 F 89 16 143/77 96 02/10/19 21:00 89 19 148/75 96 02/10/19 20:00 97.9 F 85 19 150/72 95 09/22/19 18:44 97.9 F 76 18 133/59 95 Intake and Output 02/10/19 02/11/19 02/11/19 22:59 06:59 14:59 Other: # Voids 3 Weight 107.955 kg Gen: This is an 83-year-old male. He is found standing in the bathroom and ambulate back to recliner. Gait is steady despite weightbearing on the right heel. He appears to be in no acute distress. HEENT: Head is atraumatic, normocephalic. Pupils equal, round. Sclerae is anicteric. NECK: Supple. No JVD. No lymphadenopathy. No thyromegaly. LUNGS: Clear to auscultation. No wheezes or rhonchi. No intercostal retractions. HEART: Regular rate and rhythm. No murmur. ABDOMEN: Soft. Bowel sounds are present. No masses. No tenderness. EXTREMITIES: There is erythema and warmth to the pretibial area right foot with a small wound at the distal area of the previous healed scar. No active drainage. There is diabetic ulceration to the right second toe, area is moist with serous drainage. No foul order. Patient has decreased sensations the bilateral feet. NEUROLOGICAL: Patient is awake, alert and oriented x3. Cranial nerves 2 through 12 are grossly intact. Results Results: Laboratory Results WBC 13.4 k/uL (3.8-10.6) H 02/10/19 19:34 RBC 3.72 m/uL (4.30-5.90) L 02/10/19 19:34 Hgb 9.4 gm/dL (13.0-17.5) L 02/10/19 19:34 Hct 29.7 % (39.0-53.0) L 02/10/19 19:34 MCV 79.8 fL (80.0-100.0) L 02/10/19 19:34 MCH 25.3 pg (25.0-35.0) 02/10/19 19:34 MCHC 31.7 g/dL (31.0-37.0) 02/10/19 19:34 RDW 18.9 % (11.5-15.5) H 02/10/19 19:34 Plt Count 464 k/uL (150-450) H 02/10/19 19:34 Neutrophils % 74 % 02/10/19 19:34 Lymphocytes % 10 % 02/10/19 19:34 Monocytes % 8 % 02/10/19 19:34 Eosinophils % 4 % 02/10/19 19:34 Basophils % 2 % 02/10/19 19:34 Neutrophils # 9.9 k/uL (1.3-7.7) H 02/10/19 19:34 Lymphocytes # 1.3 k/uL (1.0-4.8) 02/10/19 19:34 Monocytes # 1.1 k/uL (0-1.0) H 02/10/19 19:34 Eosinophils # 0.6 k/uL (0-0.7) 02/10/19 19:34 Basophils # 0.2 k/uL (0-0.2) 02/10/19 19:34 Hypochromasia Moderate 02/10/19 19:34 Poikilocytosis Slight 02/10/19 19:34 Anisocytosis Slight 02/10/19 19:34 PT 11.1 sec (9.0-12.0) 02/10/19 19:34 INR 1.0 (<1.2) 02/10/19 19:34 APTT 29.2 sec (22.0-30.0) 02/10/19 19:34 Sodium 136 mmol/L (137-145) L 02/10/19 19:34 Potassium 4.6 mmol/L (3.5-5.1) 02/10/19 19:34 Chloride 101 mmol/L (98-107) 02/10/19 19:34 Carbon Dioxide 25 mmol/L (22-30) 02/10/19 19:34 Anion Gap 10 mmol/L 02/10/19 19:34 BUN 26 mg/dL (9-20) H 02/10/19 19:34 Creatinine 1.08 mg/dL (0.66-1.25) 02/10/19 19:34 Est GFR (CKD-EPI)AfAm 74 (>60 ml/min/1.73 sqM) 02/10/19 19:34 Est GFR (CKD-EPI)NonAf 64 (>60 ml/min/1.73 sqM) 02/10/19 19:34 Glucose 223 mg/dL (74-99) H 02/10/19 19:34 POC Glucose (mg/dL) 311 mg/dL (75-99) H 02/11/19 07:35 POC Glu [employer] Clerk ID Amna Carroll 02/11/19 07:35 Plasma Lactic Acid [place] 1.1 mmol/L (0.7-2.0) 02/10/19 19:34 Calcium 9.4 mg/dL (8.4-10.2) 02/10/19 19:34 Total Bilirubin 0.3 mg/dL (0.2-1.3) 02/10/19 19:34 AST 31 U/L (17-59) 02/10/19 19:34 ALT 32 U/L (21-72) 02/10/19 19:34 Alkaline Phosphatase 71 U/L (38-126) 02/10/19 19:34 Total Protein 6.9 g/dL (6.3-8.2) 02/10/19 19:34 Albumin 3.8 g/dL (3.5-5.0) 02/10/19 19:34 Urine Color Light Yellow 02/10/19 20:29 Urine Appearance Clear (Clear) 02/10/19 20:29 Urine pH 6.5 (5.0-8.0) 02/10/19 20:29 Ur Specific [place] 1.012 (1.001-1.035) 02/10/19 20:29 Urine Protein Trace (Negative) H 02/10/19 20:29 Urine Glucose (UA) 1+ (Negative) H 02/10/19 20:29 Urine Ketones Negative (Negative) 02/10/19 20:29 Urine Blood Negative (Negative) 02/10/19 20:29 Urine Nitrite Negative (Negative) 02/10/19 20:29 Urine Bilirubin Negative (Negative) 02/10/19 20:29 Urine Urobilinogen <2.0 mg/dL (<2.0) 02/10/19 20:29 Ur Leukocyte Esterase Negative (Negative) 02/10/19 20:29 CBC & Chem 7: 02/10/19 19:34 02/10/19 19:34 Labs: Abnormal Lab Results - Last 24 Hours (Table) 02/10/19 02/10/19 02/10/19 Range/Units 19:34 19:34 20:29 WBC 13.4 H (3.8-10.6) k/uL RBC 3.72 L (4.30-5.90) m/uL Hgb 9.4 L (13.0-17.5) gm/dL Hct 29.7 L (39.0-53.0) % MCV 79.8 L (80.0-100.0) fL RDW 18.9 H (11.5-15.5) % Plt Count 464 H (150-450) k/uL Neutrophils # 9.9 H (1.3-7.7) k/uL Monocytes # 1.1 H (0-1.0) k/uL Sodium 136 L (137-145) mmol/L BUN 26 H (9-20) mg/dL Glucose 223 H (74-99) mg/dL POC Glucose (mg/dL) (75-99) mg/dL Urine Protein Trace H (Negative) Urine Glucose (UA) 1+ H (Negative) 02/11/19 Range/Units 07:35 WBC (3.8-10.6) k/uL RBC (4.30-5.90) m/uL Hgb (13.0-17.5) gm/dL Hct (39.0-53.0) % MCV (80.0-100.0) fL RDW (11.5-15.5) % Plt Count (150-450) k/uL Neutrophils # (1.3-7.7) k/uL Monocytes # (0-1.0) k/uL Sodium (137-145) mmol/L BUN (9-20) mg/dL Glucose (74-99) mg/dL POC Glucose (mg/dL) 311 H (75-99) mg/dL Urine Protein (Negative) Urine Glucose (UA) (Negative) Assessment and Plan Plan: This is an 83-year-old male with known history of osteomyelitis of the right second toe. He has been on outpatient IV daptomycin daily at [facility] office. Patient presents with worsening erythema and edema to the left lower extremity with cellulitis. Patient will be resumed on daptomycin, Pravachol placed on hold due to interaction. Patient will require tight blood glucose control. Wound culture from last admission was positive for MRSA. Continue supportive care. Further recommendations as patient progresses. The above dictated assessment and findings were discussed with Dr. Loza. The impression and plan of care have been directed as dictated. Jelly Oliver nurse practitioner acting as scribe for Dr. Loza.
[2019-02-11 12:19] LABS: Glucose,Whole Blood 397 mg/dL (75-99)
--- NOTE | 2019-02-11 12:36 | CONS ---
CONSULTATION This is an 83-year-old gentleman who has been admitted through the ER with right foot second toe infection with infected ulcer. The patient also has cellulitis of the right lower extremity. 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 PAST MEDICAL HISTORY: The patient has history of atrial fibrillation, coronary artery disease, post CABG, history of COPD, diabetes mellitus, hypertension. PHYSICAL EXAMINATION: On examination, patient was seen in his room. NECK: Supple. CHEST: Clear. ABDOMEN: Soft. Femorals are 1+. Dorsal pedis is 1+. Right foot big toe has an infection with ulcer and some drainage noted, some redness noted and also patient has some cellulitis of the right lower extremity. The patient has a PICC line, has been treated with the daptomycin. IMPRESSION: Right foot big toe infected ulcer with tunneling to the wound. The patient on IV antibiotic. We will discuss with Infectious Disease, treated with antibiotic. Most likely will end up losing the right foot second toe amputation and we will discuss with Dr. Loza for further management. MMODL / IJN: [id number] /
[2019-02-11] MEDS: INSULIN ASPART (NovoLOG) 100 UNIT/ML VIAL SQ SCH ×5 (12:49→21:02)
--- NOTE | 2019-02-11 14:46 | CONS ---
CONSULTATION ADDENDUM: Patient has a right foot, big toe, infected ulcer. MMODL / IJN: [id number] /
[2019-02-11 17:36] LABS: Glucose,Whole Blood 210 mg/dL (75-99)
--- NOTE | 2019-02-11 17:42 | P.HPIM ---
History of Present Illness H&P Date: 02/11/19 This is an 83-year-old gentleman with extensive medical history of atrial fibrillation, CAD, renal cancer, CHF, COPD, CVA/TIA, diabetes mellitus, hypertension, hyperlipidemia, CAD, [place], CABG, osteoarthritis,deficient anemia, sleep apnea presented to the ER with complaints of right foot second toe infe ction/infected ulcer with accompanying cellulitis of the right lower extremity failed outpatient treatment. 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 Had been following up at the wound care clinic/clerk analyst outpatient. Receiving daptomycin outpatient via PICC line as per infectious disease. Reports low-grade fevers of 99.8. Denies any chest pain, palpitations or increased in shortness of breath, patient has a known 40% lung function, O2 dependent. Vital signs stable. Currently afebrile, WBC 13.4. BUN 26, creatinine 1.08. Lactic acid 1.1, albumin 3.8 Hyperglycemic, blood sugars in the 200s. Doppler right leg reported no DVT. Chest x-ray reports no acute changes. UA clear, negative for leukocytes, nitrates. Received IV fluids and IV Levaquin in the ER. Review of Systems ROS Statement: Those systems with pertinent positive or pertinent negative responses have been documented in the HPI. ROS Other: All systems not noted in ROS Statement are negative. Past Medical History Past Medical History: Atrial Fibrillation, Coronary Artery Disease (CAD), Cancer, Heart Failure, COPD, CVA/TIA, Diabetes Mellitus, Eye Disorder, GERD/ Reflux, GI Bleed, Hyperlipidemia, Hypertension, Myocardial Infarction (W[place]), Osteoarthritis (OA), Pneumonia, Prostate Disorder, Renal Disease, Skin Disorder, Sleep Apnea/CPAP/BIPAP, Vascular Disorder Additional Past Medical History / Comment(s): Pt recently admitted to [facility] on 01/15/19 with osteomylitis, CAP, mild exacerbation CHF, tracheopurulent bronchitis, hypoxic respiratory failure, paroxysmal Afib, moderate mitral and tricuspid regurg and severe pulmonary HTN. Other hx: Anemia, blood and iron transfusions, right leg cellulitis, IDDM type II, neuropathy bilateral hands/feet, chronic diabetic wounds, 2013 renal cancer with surgery - partial nephrectomy/spleenectomy/distal portion of pancreas removed at [facility], TIA, [place] unknown date, BPH, gastritis, small hiatal hernia, past discitis T9-T10, arthritis bilateral hands/back, TARIQ - does not tolerate his CPAP, CKD stage III/hyperkalemia, UTI, sepsis, PVD. Last Myocardial Infarction Date:: UNKNOWN History of Any Multi-Drug Resistant Organisms: MRSA Date of last positivie culture/infection: 01/17/19 MDRO Source:: RIGHT TOE Past Surgical History: Coronary Bypass/CABG, Heart Catheterization, Orthopedic Surgery Additional Past Surgical History / Comment(s): Partial L nephrectomy, distal pancreatectomy, splenectomy - at 2000 CABG - 3 vessel, EGD, colonoscopy, deviated septum surgery, skin/oral lesion removals, R carpal tunnel release, bilateral cataract removal, bilateral laser eye surgery for "leakage", PICC lines and has one currently to R arm. Past Anesthesia/Blood Transfusion Reactions: Previous Problems w/ Anesthesia Additional Past Anesthesia/Blood Transfusion Reaction / Comment(s): 'TROUBLE COMING OUT OF ANESTHESIA' - DELUSIONAL. Patient has received blood in past without reaction. Smoking Status: Former smoker - Past Family History Father Family Medical History: Myocardial Infarction ([place]) Additional Family Medical History / Comment(s): Father of a WI at the age of 65yrs. Mother Family Medical History: COPD Medications and Allergies Home Medications Medication Instructions Recorded Confirmed Type Montelukast [Singulair] 10 mg PO HS 12/21/14 02/10/19 History Pravastatin Sodium 40 mg PO HS 02/07/16 02/10/19 History Acetaminophen Tab [Tylenol] 1,000 mg PO BID 03/17/17 02/10/19 History Pantoprazole [Protonix] 40 mg PO DAILY #30 tab 03/21/17 02/10/19 Rx Insulin Aspart [NovoLOG Flexpen] See Protocol SQ AC-TID PRN 11/12/17 02/10/19 History Budesonide-Formot 160-4.5 Mcg 2 puff INHALATION RT-BID 11/13/17 02/10/19 History [Symbicort 160-4.5 Mcg Inhaler] Lisinopril [Zestril] 5 mg PO DAILY 01/26/18 02/10/19 History Escitalopram Oxalate [Lexapro] 10 mg PO HS 04/19/18 02/10/19 History Cyanocobalamin (Vitamin B-12) 1,000 mcg PO TUFR 01/15/19 02/10/19 History [Vitamin B-12] DAPTOmycin [Cubicin Rf] 500 mg IVPB DAILY #42 vial 01/22/19 02/10/19 Rx Fluticasone Nasal [place] [Flonase 2 spray EA NOSTRIL DAILY #1 bottle 01/22/19 02/10/19 Rx Nasal [place]] Furosemide [Lasix] 40 mg PO BID #60 tab 01/22/19 02/10/19 Rx Insulin Aspart [NovoLOG Flexpen] 17 units SQ TID-W/MEALS #0 01/22/19 02/10/19 Rx Ipratropium-Albuterol Nebulize 3 ml INHALATION RT-QID #0 01/22/19 02/10/19 Rx [Duoneb 0.5 mg-3 mg/3 ml Soln] Insulin Detemir [Levemir Flextouch] 60 units SQ HS 02/10/19 02/10/19 History Magnesium Oxide [Mag-Ox] 400 mg PO HS 02/10/19 02/10/19 History Metoprolol Tartrate [Lopressor] 12.5 mg PO BID 02/10/19 02/10/19 History Allergies Allergy/AdvReac Type Severity Reaction Status Date / Time Penicillins Allergy Unknown Rash/Hives Verified 02/10/19 19:55 atorvastatin calcium Allergy Unknown Verified 02/10/19 19:55 [From Lipitor] clonazepam [From Klonopin] Allergy Hallucinati Verified 02/10/19 19:55 ons codeine Allergy Hallucinati Verified 02/10/19 19:55 ons haloperidol [From Haldol] Allergy Hallucinati Verified 02/10/19 19:55 ons haloperidol lactate Allergy Hallucinati Verified 02/10/19 19:55 [From Haldol] ons hydromorphone HCl Allergy Hallucinati Verified 02/10/19 19:55 [From Dilaudid] ons methylphenidate HCl Allergy Hallucinati Verified 02/10/19 19:55 [From Ritalin] ons morphine Allergy Hallucinati Verified 02/10/19 19:55 ons propofol Allergy Hallucinati Verified 02/10/19 19:55 ons quetiapine fumarate Allergy Hallucinati Verified 02/10/19 19:55 [From Seroquel] ons Sulfa (Sulfonamide Allergy Unknown Verified 02/10/19 19:55 Antibiotics) vancomycin Allergy Unknown Verified 02/10/19 19:55 ativan AdvReac Unknown Uncoded 02/10/19 18:48 Physical Exam Vitals: Vital Signs Temp Pulse Pulse Resp BP BP Pulse Ox 02/11/19 16:27 72 16 02/11/19 16:16 68 16 94 L 02/11/19 13:29 68 02/11/19 13:17 68 02/11/19 13:12 97.5 F L 61 16 176/74 94 L 02/11/19 08:00 97.9 F 79 16 165/77 93 L 02/11/19 07:43 68 02/11/19 07:33 68 02/11/19 07:24 97.4 F L 64 18 142/86 96 02/11/19 00:13 97.8 F 63 18 138/70 94 L 02/10/19 22:20 98.4 F 89 16 143/77 96 02/10/19 21:00 89 19 148/75 96 02/10/19 20:00 97.9 F 85 19 150/72 95 02/10/19 18:44 97.9 F 76 18 133/59 95 Intake and Output 02/11/19 02/11/19 02/11/19 06:59 14:59 22:59 Intake Total 540 Balance 540 Intake: Oral 540 Other: # Voids 3 3 VITAL SIGNS: As above GENERAL: Sitting up in chair, no acute distress HEENT: Conjunctivae normal. eyes normal. Oral mucosa moist NECK: No JVD. No thyroid enlargement. No LNs CARDIOVASCULAR: S1, S2 regular. Systolic murmur RESPIRATION: Breath sounds diminished in the bases. No rhonchi, bibasilar crackles, right greater than left ABDOMEN: Obese, Soft, mildly distended, nontender . No guarding. no masses palpable. No ascites, No hepatosplenomegaly.Positive bowel sounds. LEGS: Right lower extremity reddened, swollen, tender cellulitis with right great toe ulcer, no drainage. PSYCHIATRY: Alert and oriented X3, mood and affect normal. NERVOUS SYSTEM: Cranial N 2-12 grossly normal. Moves all 4 limbs. Diffuse weakness ,No focal deficits. Strength grossly intact.. Decreased sensation of feet Skin: no lesions, no rash Lymphatic system. No LN neck axilla or groin. Results CBC & Chem 7: 02/10/19 19:34 02/10/19 19:34 Labs: Abnormal Lab Results - Last 24 Hours (Table) 02/10/19 02/10/19 02/10/19 Range/Units 19:34 19:34 20:29 WBC 13.4 H (3.8-10.6) k/uL RBC 3.72 L (4.30-5.90) m/uL Hgb 9.4 L (13.0-17.5) gm/dL Hct 29.7 L (39.0-53.0) % MCV 79.8 L (80.0-100.0) fL RDW 18.9 H (11.5-15.5) % Plt Count 464 H (150-450) k/uL Neutrophils # 9.9 H (1.3-7.7) k/uL Monocytes # 1.1 H (0-1.0) k/uL ESR (0-15) mm/hr Sodium 136 L (137-145) mmol/L BUN 26 H (9-20) mg/dL Glucose 223 H (74-99) mg/dL POC Glucose (mg/dL) (75-99) mg/dL C-Reactive Protein (<10.0) mg/L Urine Protein Trace H (Negative) Urine Glucose (UA) 1+ H (Negative) 02/11/19 02/11/19 02/11/19 Range/Units 07:35 08:20 08:20 WBC (3.8-10.6) k/uL RBC (4.30-5.90) m/uL Hgb (13.0-17.5) gm/dL Hct (39.0-53.0) % MCV (80.0-100.0) fL RDW (11.5-15.5) % Plt Count (150-450) k/uL Neutrophils # (1.3-7.7) k/uL Monocytes # (0-1.0) k/uL ESR 47 H (0-15) mm/hr Sodium (137-145) mmol/L BUN (9-20) mg/dL Glucose (74-99) mg/dL POC Glucose (mg/dL) 311 H (75-99) mg/dL C-Reactive Protein 42.1 H (<10.0) mg/L Urine Protein (Negative) Urine Glucose (UA) (Negative) 02/11/19 Range/Units 12:13 WBC (3.8-10.6) k/uL RBC (4.30-5.90) m/uL Hgb (13.0-17.5) gm/dL Hct (39.0-53.0) % MCV (80.0-100.0) fL RDW (11.5-15.5) % Plt Count (150-450) k/uL Neutrophils # (1.3-7.7) k/uL Monocytes # (0-1.0) k/uL ESR (0-15) mm/hr Sodium (137-145) mmol/L BUN (9-20) mg/dL Glucose (74-99) mg/dL POC Glucose (mg/dL) 397 H (75-99) mg/dL C-Reactive Protein (<10.0) mg/L Urine Protein (Negative) Urine Glucose (UA) (Negative) Thrombosis Risk Factor Assmnt - Choose All That Apply Any of the Below Risk Factors Present?: Yes Each Factor Represents 1 point: Abnormal pulmonary function (COPD), Heart failure (<1month), Obesity (BMI >25) Other Risk Factors: Yes Each Risk Factor Represents 3 Points: Age 75 years or older Other congenital or acquired thrombophilia - If yes, enter type in comment: No Thrombosis Risk Factor Assessment Total Risk Factor Score: 6 Thrombosis Risk Factor Assessment Level: High Risk Assessment and Plan Assessment: -Cellulitis with Right great toe infected ulcer with tunneling to the wound above failed outpatient treatment, in a patient with Chronic Right foot diabetic ulcer, 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 -Chronic renal failure, stage III. Baseline 1.2. 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 11.4 on prior admission. -Obstructive sleep apnea, unable to tolerate CPAP -Moderate mitral regurgitation -Moderate tricuspid regurgitation -Severe pulmonary hypertension -Paroxysmal atrial fibrillation, not on long-term anticoagulation secondary to GI bleed November 2017 -CAD, history of [place], CABG -Diabetes mellitus type 2, uncontrolled with hyperglycemia -History of renal cancer 2013 with partial nephrectomy, splenectomy and resection of distal portion of the pancreas -BPH -Hypertension -Hyperlipidemia -History of CVA,TIA - Plan: Continue on current medication regime ,monitoring and symptomatic treatment. Infectious disease and vascular surgery recommendations noted, discussing toe amputation. IV antibiotics of daptomycin as per infectious disease Tight blood sugar control with close monitoring of Accu-Cheks. Prognosis guarded given multiple complex medical issues. Home meds have been reviewed and resumed accordingly. The impression and plan of care has been dictated as directed. : I performed a history and examination of this patient, discussed the same with the dictator. I agree with the dictator's note ,documented as a scribe. Any additional findings or plans will be noted.
[2019-02-11] MEDS: SYMBICORT 160-4.5 MCG INHALER (BULK) INHALATION SCH (19:44)
[2019-02-11] MEDS: MAGNESIUM OXIDE 400 MG TAB PO SCH (20:30)
[2019-02-11] MEDS: MONTELUKAST 10 MG TAB PO SCH (20:30)
[2019-02-11] MEDS: ESCITALOPRAM 10 MG TAB PO SCH (20:31)
[2019-02-11 20:42] LABS: Glucose,Whole Blood 143 mg/dL (75-99)
[2019-02-11] MEDS ORDERED: PRAVASTATIN SODIUM 40 MG TAB PO SCH (21:00)
[2019-02-11] MEDS ORDERED: INSULIN DETEMIR 60 UNIT SQ SCH (21:00)
--- NOTE | 2019-02-11 23:28 | P.CON ---
Consult Note - . Consult date: 02/11/19 Assessment/Plan:: 83-year-old male with history of multiple hospitalizations regarding his diabetes, relatively poor immunity due to his prior splenectomy and medical noncompliance with resulting hyperglycemia and frequent infections. He is cared for in the outpatient setting by a visiting gas blender for the diabetic foot infection to the right foot. He had a recent hospitalization January 15 through January 22 which time he was treated for acute osteomyelitis right foot and was discharged with a PICC line in place and daptomycin. Patient has been receiving IV antibiotics at [facility] office and he has followed up with Dr. Key at the wound healing center most recently on February 07. Patient states for the past 2 days he has had increased redness and swelling to the right lower leg and right toe. He denies having any fever or chills, no change in appetite. He came into [facility] emergency center for evaluation and found to be afebrile, white count 13.4, BUN 26 creatinine 1.08, lactic acid 1.1, albumin 3.8, blood sugar 223. Chest x-ray showed no acute card pulmonary disease. Ultrasound of the right lower extremity was negative for DVT. Urinalysis clear with nitrate and leukoesterase negative. His last hemoglobin A1c on January 20 was 9.8. Patient metastases that his blood sugars have been running quite high at home. Patient has been admitted to the [facility] floor. He was provided 1 dose of Levaquin and 1 L of IV fluids in the emergency center. Patient states that swelling to the right lower extremity is much improved since he was admitted. Please see the consult note as dictated by nurse practitioner Mrs. Jelly Oliver. 83-year-old male recently houseflies is evidence of a known diabetic foot infection which is now markedly worsened resulting in his presentation to hospital. Known MRSA infection is occurring. The patient has been seen by the vascular surgeon and there is further tissue necrosis which will necessitate toe amputation in the near future. We'll continue current antibiotic therapy with vancomycin, and Levaquin. Elevation of the limb, diabetes care and local wound care will all be utilized. He did fail his course of outpatient intravenous antibiotic therapy. I agree with evaluation, assessment and plan as dictated by nurse practitioner Mrs. Jelly Oliver.
[2019-02-12 07:11] LABS: Glucose,Whole Blood 183 mg/dL (75-99)
[2019-02-12] MEDS: DAPTOmycin 500 MG in SODIUM CHLORIDE 0.9% 50 ML IVPB SCH (07:27)
[2019-02-12] MEDS: PANTOPRAZOLE 40 MG TABLET PO SCH (07:31)
[2019-02-12] MEDS: METOPROLOL TARTRATE 12.5 MG TAB PO SCH ×2 (07:31→22:22)
[2019-02-12] MEDS: FUROSEMIDE 40 MG TAB PO SCH ×2 (07:31→22:22)
[2019-02-12] MEDS: ACETAMINOPHEN TAB 500 MG TAB PO SCH ×2 (07:31→22:22)
[2019-02-12] MEDS: LISINOPRIL 5 MG TAB PO SCH (07:31)
[2019-02-12] MEDS: FLUTICASONE 50MCG/SPRAY NASAL 16GM EA NOSTRIL SCH (07:32)
[2019-02-12] MEDS: INSULIN ASPART (NovoLOG) 100 UNIT/ML VIAL SQ SCH ×7 (07:32→22:25)
[2019-02-12] MEDS: INSULIN DETEMIR (LEVEMIR) 100 UNIT/ML SYR SQ SCH (07:33)
[2019-02-12] MEDS: IPRATROPIUM-ALBUTEROL 3 ML NEB INHALATION SCH ×4 (10:35→20:28)
[2019-02-12] MEDS: SYMBICORT 160-4.5 MCG INHALER (BULK) INHALATION SCH ×2 (10:37→20:28)
[2019-02-12] MEDS: SODIUM CHLORIDE 0.9% 1,000 ML IV SCH (11:40)
[2019-02-12 12:00] LABS: Glucose,Whole Blood 160 mg/dL (75-99)
--- NOTE | 2019-02-12 12:39 | P.PN ---
Subjective Progress Note Date: 02/12/19 This is an 83-year-old gentleman with extensive medical history of atrial fibrillation, CAD, renal cancer, CHF, COPD, CVA/TIA, diabetes mellitus, hypertension, hyperlipidemia, CAD, [place], CABG, osteoarthritis,deficient anemia, sleep apnea presented to the ER with complaints of right foot second toe infection/infected ulcer with accompanying cellulitis of the right lower extremity failed outpatient treatment. 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 Had been following up at the wound care clinic/oim consultant outpatient. Receiving daptomycin outpatient via PICC line as per infectious disease. Reports low-grade fevers of 99.8. Denies any chest pain, palpitations or increased in shortness of breath, patient has a known 40% lung function, O2 dependent. Vital signs stable. Currently afebrile, WBC 13.4. BUN 26, creatinine 1.08. Lactic acid 1.1, albumin 3.8 Hyperglycemic, blood sugars in the 200s. Doppler right leg reported no DVT. Chest x-ray reports no acute changes. UA clear, negative for leukocytes, nitrates. Received IV fluids and IV Levaquin in the ER. 02/12/2019 maintained on IV antibiotics as per infectious disease. Labs pending. Amputation of the affected toe discussed and patient agreeable, scheduling of procedure pending. Vital signs stable, afebrile. Preliminary blood cultures negative. Blood sugars controlled. Denies pain. Denies chest pain, palpitations or shortness of breath. Objective - Vital Signs Vital signs: Vital Signs Temp 97.0 F L 02/12/19 04:57 Pulse 68 02/12/19 10:53 Resp 16 02/12/19 04:57 BP 149/67 02/12/19 04:57 Pulse Ox 94 L 02/12/19 04:57 Intake & Output 02/11/19 02/12/19 02/12/19 18:59 06:59 18:59 Intake Total 540 Balance 540 Intake: Oral 540 Other: # Voids 3 1 # Bowel Movements 0 - Exam VITAL SIGNS: As above GENERAL: Sitting up in chair, no acute distress. HEENT: Conjunctivae normal. eyes normal. Oral mucosa moist NECK: No JVD. No thyroid enlargement. No LNs CARDIOVASCULAR: S1, S2 regular. Systolic murmur RESPIRATION: Breath sounds diminished in the bases. No rhonchi, crackles or wheezes. ABDOMEN: Obese, Soft, mildly distended, nontender . No guarding. no masses palpable.Positive bowel sounds. LEGS: Right lower extremity reddened, swollen, tender cellulitis with right great toe ulcer, no drainage. PSYCHIATRY: Alert and oriented X3, mood and affect normal NERVOUS SYSTEM: Cranial N 2-12 grossly normal. Moves all 4 limbs. Diffuse weakness ,No focal deficits. Strength grossly intact.. Decreased sensation of feet Skin: no lesions, no rash Lymphatic system. No LN neck axilla or groin. - Labs CBC & Chem 7: 02/10/19 19:34 02/10/19 19:34 Labs: Abnormal Lab Results - Last 24 Hours (Table) 02/11/19 02/11/19 02/11/19 Range/Units 08:20 17:32 20:41 ESR 47 H (0-15) mm/hr POC Glucose (mg/dL) 210 H 143 H (75-99) mg/dL 02/12/19 02/12/19 Range/Units 07:07 11:47 ESR (0-15) mm/hr POC Glucose (mg/dL) 183 H 160 H (75-99) mg/dL Microbiology - Last 24 Hours (Table) 02/10/19 19:34 Blood Culture - Preliminary Blood No Growth after 24 hours Assessment and Plan Assessment: -Cellulitis with Right great toe infected ulcer with tunneling to the wound above failed outpatient treatment, in a patient with Chronic Right foot diabetic ulcer, 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 -Chronic renal failure, stage III. Baseline 1.2. 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 11.4 on prior admission. -Obstructive sleep apnea, unable to tolerate CPAP -Moderate mitral regurgitation -Moderate tricuspid regurgitation -Severe pulmonary hypertension -Paroxysmal atrial fibrillation, not on long-term anticoagulation secondary to GI bleed November 2017 -CAD, history of [place], CABG -Diabetes mellitus type 2, uncontrolled with hyperglycemia -History of renal cancer 2013 with partial nephrectomy, splenectomy and resection of distal portion of the pancreas -BPH -Hypertension -Hyperlipidemia -History of CVA,TIA - Plan: Continue on current medication regime ,monitoring and symptomatic treatme nt. Maintain antibiotics as per Infectious disease.scheduling of toe amputation pending as per vascular surgery. Close monitoring of Accu-Cheks. Prognosis guarded given multiple complex medical issues. The impression and plan of care has been dictated as directed. : I performed a history and examination of this patient, discussed the same with the dictator. I agree with the dictator's note ,documented as a scribe. Any additional findings or plans will be noted.
[2019-02-12 13:28] LABS: Calcium 9.7 mg/dL (8.4-10.2); Potassium 4.5 mmol/L (3.5-5.1)
[2019-02-12 13:51] LABS: Anisocytosis Slight; Basophils # (A) 0.1 k/uL (0-0.2); Basophils % (A) 1 %; Eosinophils # (A) 0.4 k/uL (0-0.7); Eosinophils % (A) 3 %; HGB 9.6 gm/dL (13.0-17.5); Hypochromasia Marked; Lymphocytes # (A) 1.5 k/uL (1.0-4.8); Lymphocytes % (A) 11 %; MCH 25.8 pg (25.0-35.0); MCHC 31.1 g/dL (31.0-37.0); MCV 82.7 fL (80.0-100.0); Mean Platelet Volume 8.1; Monocytes % (A) 8 %; Neutrophils # (A) 10.3 k/uL (1.3-7.7); Neutrophils % (A) 76 %; Platelet Count 469 k/uL (150-450); Poikilocytosis Slight; RBC 3.74 m/uL (4.30-5.90); RDW 18.6 % (11.5-15.5); WBC 13.6 k/uL (3.8-10.6)
[2019-02-12 16:53] LABS: Glucose,Whole Blood 131 mg/dL (75-99)
[2019-02-12 21:35] LABS: Glucose,Whole Blood 104 mg/dL (75-99)
[2019-02-12] MEDS: ESCITALOPRAM 10 MG TAB PO SCH (22:22)
[2019-02-12] MEDS: MAGNESIUM OXIDE 400 MG TAB PO SCH (22:23)
[2019-02-12] MEDS: MONTELUKAST 10 MG TAB PO SCH (22:24)
--- NOTE | 2019-02-12 23:17 | P.PN ---
Subjective Progress Note Date: 02/12/19 83-year-old male with history of multiple hospitalizations regarding his diabetes, relatively poor immunity due to his prior splenectomy and medical noncompliance with resulting hyperglycemia and frequent infections. He is cared for in the outpatient setting by a visiting burglar alarm installer for the diabetic foot infection to the right foot. He had a recent hospitalization January 15 through January 22 which time he was treated for acute osteomyelitis right foot and was discharged with a PICC line in place and daptomycin. Patient has been receiving IV antibiotics at [facility] office and he has followed up with Dr. Key at the wound healing center most recently on February 07. Patient states for the past 2 days he has had increased redness and swelling to the right lower leg and right toe. He denies having any fever or chills, no change in appetite. He came into [facility] emergency center for evaluation and found to be afebrile, white count 13.4, BUN 26 creatinine 1.08, lactic acid 1.1, albumin 3.8, blood sugar 223. Chest x-ray showed no acute card pulmonary disea se. Ultrasound of the right lower extremity was negative for DVT. Urinalysis clear with nitrate and leukoesterase negative. His last hemoglobin A1c on January 20 was 9.8. Patient metastases that his blood sugars have been running quite high at home. [facility] He was provided 1 dose of Levaquin and 1 L of IV fluids in the emergency center. Patient states that swelling to the right lower extremity is much improved since he was admitted. 02/12/2019 patient is feeling somewhat better. He has been evaluated in vascular is reviewed and his plans for the toe amputation tomorrow. Objective - Vital Signs Vital signs: Vital Signs Temp 97.0 F L 02/12/19 21:17 Pulse 68 02/12/19 21:17 Resp 16 02/12/19 21:17 BP 143/65 02/12/19 21:17 Pulse Ox 98 02/12/19 21:17 Intake & Output 02/12/19 02/12/19 02/13/19 06:59 18:59 06:59 Intake Total 1080 Balance 1080 Intake: Oral 1080 Other: # Voids 1 1 # Bowel Movements 0 - Exam Gen: This is an 83-year-old male. He is found standing in the bathroom and ambulate back to recliner. Gait is steady despite weightbearing on the right heel. He appears to be in no acute distress. HEENT: Head is atraumatic, normocephalic. Pupils equal, round. Sclerae is anicteric. NECK: Supple. No JVD. No lymphadenopathy. No thyromegaly. LUNGS: Clear to auscultation. No wheezes or rhonchi. No intercostal retractions. HEART: Regular rate and rhythm. No murmur. ABDOMEN: Soft. Bowel sounds are present. No masses. No tenderness. EXTREMITIES: There is erythema and warmth to the pretibial area right foot with a small wound at the distal area of the previous healed scar. No active drainage. There is diabetic ulceration to the right second toe, area is moist with serous drainage. No foul order. Patient has decreased sensations the bilateral feet. NEUROLOGICAL: Patient is awake, alert and oriented x3. - Labs CBC & Chem 7: 02/12/19 12:35 02/12/19 12:35 Labs: Abnormal Lab Results - Last 24 Hours (Table) 02/12/19 02/12/19 02/12/19 Range/Units 07:07 11:47 12:35 WBC 13.6 H (3.8-10.6) k/uL RBC 3.74 L (4.30-5.90) m/uL Hgb 9.6 L (13.0-17.5) gm/dL Hct 31.0 L (39.0-53.0) % RDW 18.6 H (11.5-15.5) % Plt Count 469 H (150-450) k/uL Neutrophils # 10.3 H (1.3-7.7) k/uL BUN (9-20) mg/dL Glucose (74-99) mg/dL POC Glucose (mg/dL) 183 H 160 H (75-99) mg/dL 02/12/19 02/12/19 02/12/19 Range/Units 12:35 16:49 21:26 WBC (3.8-10.6) k/uL RBC (4.30-5.90) m/uL Hgb (13.0-17.5) gm/dL Hct (39.0-53.0) % RDW (11.5-15.5) % Plt Count (150-450) k/uL Neutrophils # (1.3-7.7) k/uL BUN 21 H (9-20) mg/dL Glucose 126 H (74-99) mg/dL POC Glucose (mg/dL) 131 H 104 H (75-99) mg/dL Microbiology - Last 24 Hours (Table) 02/10/19 19:34 Blood Culture - Preliminary Blood No Growth after 48 hours Laboratory Results WBC 13.6 k/uL (3.8-10.6) H 02/12/19 12:35 RBC 3.74 m/uL (4.30-5.90) L 02/12/19 12:35 Hgb 9.6 gm/dL (13.0-17.5) L 02/12/19 12:35 Hct 31.0 % (39.0-53.0) L 02/12/19 12:35 MCV 82.7 fL (80.0-100.0) 02/12/19 12:35 MCH 25.8 pg (25.0-35.0) 02/12/19 12:35 MCHC 31.1 g/dL (31.0-37.0) 02/12/19 12:35 RDW 18.6 % (11.5-15.5) H 02/12/19 12:35 Plt Count 469 k/uL (150-450) H 02/12/19 12:35 Neutrophils % 76 % 02/12/19 12:35 Lymphocytes % 11 % 02/12/19 12:35 Monocytes % 8 % 02/12/19 12:35 Eosinophils % 3 % 02/12/19 12:35 Basophils % 1 % 02/12/19 12:35 Neutrophils # 10.3 k/uL (1.3-7.7) H 02/12/19 12:35 Lymphocytes # 1.5 k/uL (1.0-4.8) 02/12/19 12:35 Monocytes # 1.0 k/uL (0-1.0) 02/12/19 12:35 Eosinophils # 0.4 k/uL (0-0.7) 02/12/19 12:35 Basophils # 0.1 k/uL (0-0.2) 02/12/19 12:35 Hypochromasia Marked 02/12/19 12:35 Poikilocytosis Slight 02/12/19 12:35 Anisocytosis Slight 02/12/19 12:35 ESR 47 mm/hr (0-15) H 02/11/19 08:20 PT 11.1 sec (9.0-12.0) 02/10/19 19:34 INR 1.0 (<1.2) 02/10/19 19:34 APTT 29.2 sec (22.0-30.0) 02/10/19 19:34 Sodium 139 mmol/L (137-145) 02/12/19 12:35 Potassium 4.5 mmol/L (3.5-5.1) 02/12/19 12:35 Chloride 99 mmol/L (98-107) 02/12/19 12:35 Carbon Dioxide 28 mmol/L (22-30) 02/12/19 12:35 Anion Gap 12 mmol/L 02/12/19 12:35 BUN 21 mg/dL (9-20) H 02/12/19 12:35 Creatinine 1.09 mg/dL (0.66-1.25) 02/12/19 12:35 Est GFR (CKD-EPI)AfAm 73 (>60 ml/min/1.73 sqM) 02/12/19 12:35 Est GFR (CKD-EPI)NonAf 63 (>60 ml/min/1.73 sqM) 02/12/19 12:35 Glucose 126 mg/dL (74-99) H 02/12/19 12:35 POC Glucose (mg/dL) 104 mg/dL (75-99) H 02/12/19 21:26 POC Glu Adventure Guide Leah Rader 02/12/19 21:26 Plasma Lactic Acid Dean 1.1 mmol/L (0.7-2.0) 02/10/19 19:34 Calcium 9.7 mg/dL (8.4-10.2) 02/12/19 12:35 Total Bilirubin 0.3 mg/dL (0.2-1.3) 02/10/19 19:34 AST 31 U/L (17-59) 02/10/19 19:34 ALT 32 U/L (21-72) 02/10/19 19:34 Alkaline Phosphatase 71 U/L (38-126) 02/10/19 19:34 C-Reactive Protein 42.1 mg/L (<10.0) H 02/11/19 08:20 Total Protein 6.9 g/dL (6.3-8.2) 02/10/19 19:34 Albumin 3.8 g/dL (3.5-5.0) 02/10/19 19:34 Urine Color Light Yellow 02/10/19 20: Urine Appearance Clear (Clear) 02/10/19 20: Urine pH 6.5 (5.0-8.0) 02/10/19 20:29 Ur Specific [place] 1.012 (1.001-1.035) 02/10/19 20:29 Urine Protein Trace (Negative) H 02/10/19 20: Urine Glucose (UA) 1+ (Negative) H 02/10/19 20: Urine Ketones Negative (Negative) 02/10/19 20: Urine Blood Negative (Negative) 02/10/19 20: Urine Nitrite Negative (Negative) 02/10/19 20: Urine Bilirubin Negative (Negative) 02/10/19 20:29 Urine Urobilinogen <2.0 mg/dL (<2.0) 02/10/19 20:29 Ur Leukocyte Esterase Negative (Negative) 02/10/19 20:29 Microbiology 02/10/19 19:34 Blood Blood Culture - Preliminary No Growth after 48 hours Assessment and Plan (1) Diabetic ulcer of right foot Narrative/Plan: 83-year-old male recently houseflies is evidence of a known diabetic foot infection which is now markedly worsened resulting in his presentation to hospital. Known MRSA infection is occurring. The patient has been seen by the vascular surgeon and there is further tissue necrosis which will necessitate toe amputation in the near future. We'll continue current antibiotic therapy with vancomycin, and Levaquin. Elevation of the limb, diabetes care and local wound care will all be utilized. He did fail his course of outpatient intravenous antibiotic therapy 02/12/2019 patient has had some improvement of the cellulitis to the limb is less tender and warm and erythema have slightly improved. He will have the toe amputation tomorrow for the diabetic toe ulceration with destruction distally. The postoperative plan will be determined the overall findings time of surgery. Continue current antibiotic therapy. Current Visit: Yes Status: Acute Code(s): E11.621 - TYPE 2 DIABETES MELLITUS WITH FOOT ULCER; L97.519 - NON-PRS CHRONIC ULCER OTH PRT RIGHT FOOT W UNSP SEVERITY SNOMED Code(s): 866772129 (2) Failure of outpatient treatment Current Visit: Yes Status: Acute Code(s): Z78.9 - OTHER SPECIFIED HEALTH STATUS SNOMED Code(s): 085278214 (3) Cellulitis of right leg Current Visit: No Status: Acute Code(s): L03.115 - CELLULITIS OF RIGHT LOWER LIMB SNOMED Code(s): 242402926 (4) Diabetes mellitus Current Visit: No Status: Acute Code(s): E11.9 - TYPE 2 DIABETES MELLITUS WITHOUT COMPLICATIONS SNOMED Code(s): 89534334
[2019-02-13] MEDS: SODIUM CHLORIDE 0.9% 1,000 ML IV SCH ×2 (00:49→13:29)
[2019-02-13] MEDS: METOPROLOL TARTRATE 12.5 MG TAB PO SCH ×2 (07:28→20:16)
[2019-02-13] MEDS: INSULIN DETEMIR (LEVEMIR) 100 UNIT/ML SYR SQ SCH (07:28)
[2019-02-13] MEDS: ACETAMINOPHEN TAB 500 MG TAB PO SCH ×2 (07:29→20:16)
[2019-02-13] MEDS: PANTOPRAZOLE 40 MG TABLET PO SCH (07:29)
[2019-02-13] MEDS: LISINOPRIL 5 MG TAB PO SCH (07:30)
[2019-02-13] MEDS: FUROSEMIDE 40 MG TAB PO SCH ×2 (07:30→20:16)
[2019-02-13] MEDS: DAPTOmycin 500 MG in SODIUM CHLORIDE 0.9% 50 ML IVPB SCH (07:30)
[2019-02-13 07:33] LABS: Glucose,Whole Blood 274 mg/dL (75-99)
[2019-02-13] MEDS: IPRATROPIUM-ALBUTEROL 3 ML NEB INHALATION SCH ×4 (07:40→19:31)
[2019-02-13] MEDS: SYMBICORT 160-4.5 MCG INHALER (BULK) INHALATION SCH ×2 (07:42→19:31)
[2019-02-13] MEDS: INSULIN ASPART (NovoLOG) 100 UNIT/ML VIAL SQ SCH ×7 (07:51→21:00)
[2019-02-13] MEDS: FLUTICASONE 50MCG/SPRAY NASAL 16GM EA NOSTRIL SCH (07:52)
[2019-02-13 09:01] LABS: Anisocytosis Slight; Basophils # (A) 0.3 k/uL (0-0.2); Basophils % (A) 2 %; Eosinophils # (A) 0.5 k/uL (0-0.7); Eosinophils % (A) 4 %; HGB 10.2 gm/dL (13.0-17.5); Hypochromasia Marked; Lymphocytes # (A) 1.3 k/uL (1.0-4.8); Lymphocytes % (A) 10 %; MCH 25.6 pg (25.0-35.0); MCV 82.5 fL (80.0-100.0); Mean Platelet Volume 7.8; Monocytes # (A) 0.8 k/uL (0-1.0); Monocytes % (A) 6 %; Neutrophils # (A) 9.7 k/uL (1.3-7.7); Neutrophils % (A) 76 %; Platelet Count 499 k/uL (150-450); Poikilocytosis Slight; RBC 3.99 m/uL (4.30-5.90); RDW 18.8 % (11.5-15.5); WBC 12.8 k/uL (3.8-10.6)
[2019-02-13 09:06] LABS: Calcium 9.8 mg/dL (8.4-10.2); Potassium 4.6 mmol/L (3.5-5.1)
[2019-02-13 12:17] LABS: Glucose,Whole Blood 202 mg/dL (75-99)
[2019-02-13] MEDS ORDERED: IV FLUID CONTINUATION 1,000 ML IV ONE (14:28)
--- NOTE | 2019-02-13 14:57 | P.PN ---
Subjective Progress Note Date: 02/13/19 This is an 83-year-old gentleman with extensive medical history of atrial fibrillation, CAD, renal cancer, CHF, COPD, CVA/TIA, diabetes mellitus, hypertension, hyperlipidemia, CAD, AL, CABG, osteoarthritis,deficient anemia, sleep apnea presented to the ER with complaints of right foot second toe infection/infected ulcer with accompanying cellulitis of the right lower extremity failed outpatient treatment. 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 Had been following up at the wound care clinic/commercial producer outpatient. Receiving daptomycin outpatient via PICC line as per infectious disease. Reports low-grade fevers of 99.8. Denies any chest pain, palpitations or increased in shortness of breath, patient has a known 40% lung function, O2 dependent. Vital signs stable. Currently afebrile, WBC 13.4. BUN 26, creatinine 1.08. Lactic acid 1.1, albumin 3.8 Hyperglycemic, blood sugars in the 200s. Doppler right leg reported no DVT. Chest x-ray reports no acute changes. UA clear, negative for leukocytes, nitrates. Received IV fluids and IV Levaquin in the ER. 02/12/2019 maintained on IV antibiotics as per infectious disease. Labs pending. Amputation of the affected toe discussed and patient agreeable, scheduling of procedure pending. Vital signs stable, afebrile. Preliminary blood cultures negative. Blood sugars controlled. Denies pain. Denies chest pain, palpitations or shortness of breath. 02/13/2019 scheduled for amputation of toe with vascular surgery today. Vital signs stable. Maintain on IV daptomycin. Afebrile. Blood sugars elevated into the 200s. Denies chest pain, palpitations shortness of breath. Denies pain Objective - Vital Signs Vital signs: Vital Signs Temp 96.7 F L 02/13/19 07:01 Pulse 68 02/13/19 11:34 Resp 16 02/13/19 07:01 BP 165/74 02/13/19 07:01 Pulse Ox 97 02/13/19 07:01 Intake & Output 02/12/19 02/13/19 02/13/19 18:59 06:59 18:59 Intake Total 1080 1150 Balance 1080 1150 Intake: Oral 1080 1150 Other: # Voids 1 2 - Exam VITAL SIGNS: As above GENERAL: Sitting up in chair, no acute distress. HEENT: Conjunctivae normal. eyes normal. Oral mucosa moist NECK: No JVD. No thyroid enlargement. No LNs CARDIOVASCULAR: S1, S2 regular. Systolic murmur RESPIRATION: Breath sounds diminished in the bases. No rhonchi, crackles or wheezes. ABDOMEN: Obese, Soft, mildly distended, nontender . No guarding. no masses palpable.Positive bowel sounds. LEGS: Right lower extremity unchanged; reddened, swollen, tender cellulitis with right great toe ulcer, no drainage. PSYCHIATRY: Alert and oriented X3, mood and affect normal NERVOUS SYSTEM: Cranial N 2-12 grossly normal. Moves all 4 limbs. Diffuse weakness ,No focal deficits. Strength grossly intact.. Decreased sensation of feet Skin: no lesions, no rash Lymphatic system. No LN neck axilla or groin. - Labs CBC & Chem 7: 02/13/19 08:16 02/13/19 08:16 Labs: Abnormal Lab Results - Last 24 Hours (Table) 02/12/19 02/12/19 02/12/19 Range/Units 11:47 12:35 12:35 WBC 13.6 H (3.8-10.6) k/uL RBC 3.74 L (4.30-5.90) m/uL Hgb 9.6 L (13.0-17.5) gm/dL Hct 31.0 L (39.0-53.0) % RDW 18.6 H (11.5-15.5) % Plt Count 469 H (150-450) k/uL Neutrophils # 10.3 H (1.3-7.7) k/uL Basophils # (0-0.2) k/uL Chloride (98-107) mmol/L BUN 21 H (9-20) mg/dL Glucose 126 H (74-99) mg/dL POC Glucose (mg/dL) 160 H (75-99) mg/dL 02/12/19 02/12/19 02/13/19 Range/Units 16:49 21:26 07:01 WBC (3.8-10.6) k/uL RBC (4.30-5.90) m/uL Hgb (13.0-17.5) gm/dL Hct (39.0-53.0) % RDW (11.5-15.5) % Plt Count (150-450) k/uL Neutrophils # (1.3-7.7) k/uL Basophils # (0-0.2) k/uL Chloride (98-107) mmol/L BUN (9-20) mg/dL Glucose (74-99) mg/dL POC Glucose (mg/dL) 131 H 104 H 274 H (75-99) mg/dL 02/13/19 02/13/19 Range/Units 08:16 08:16 WBC 12.8 H (3.8-10.6) k/uL RBC 3.99 L (4.30-5.90) m/uL Hgb 10.2 L (13.0-17.5) gm/dL Hct 33.0 L (39.0-53.0) % RDW 18.8 H (11.5-15.5) % Plt Count 499 H (150-450) k/uL Neutrophils # 9.7 H (1.3-7.7) k/uL Basophils # 0.3 H (0-0.2) k/uL Chloride 96 L (98-107) mmol/L BUN 21 H (9-20) mg/dL Glucose 267 H (74-99) mg/dL POC Glucose (mg/dL) (75-99) mg/dL Microbiology - Last 24 Hours (Table) 02/10/19 19:34 Blood Culture - Preliminary Blood No Growth after 48 hours Assessment and Plan Assessment: -Cellulitis with Right great toe infected ulcer with tunneling to the wound above failed outpatient treatment, in a patient with Chronic Right foot diabetic ulcer, 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 -Chronic renal failure, stage III. Baseline 1.2. 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 11.4 on prior admission. -Obstructive sleep apnea, unable to tolerate CPAP -Moderate mitral regurgitation -Moderate tricuspid regurgitation -Severe pulmonary hypertension -Paroxysmal atrial fibrillation, not on long-term anticoagulation secondary to GI bleed November 2017 -CAD, history of AL, CABG -Diabetes mellitus type 2, uncontrolled with hyperglycemia -History of renal cancer 2013 with partial nephrectomy, splenectomy and resection of distal portion of the pancreas -BPH -Hypertension -Hyperlipidemia -History of CVA,TIA - Plan: Continue on current medication regime ,monitoring and symptomatic treatment. Toe amputation scheduled for today with vascular surgery. Maintain antibiotics as per Infectious disease. Close monitoring of Accu-Cheks. Prognosis guarded given multiple complex medical issues. The impression and plan of care has been dictated as directed. : I performed a history and examination of this patient, discussed the same with the dictator. I agree with the dictator's note ,documented as a scribe. Any additional findings or plans will be noted.
[2019-02-13] MEDS ORDERED: PROPOFOL 10 MG/ML 20 ML VIAL IV ONE (16:07)
[2019-02-13] MEDS ORDERED: LIDOCAINE 1% INJ 10MG/ML (20 ML MDV) SQ ONE (16:23)
[2019-02-13 17:06] LABS: Glucose,Whole Blood 79 mg/dL (75-99)
[2019-02-13] MEDS ORDERED: KETOROLAC 30 MG/ML 1 ML VIAL IVP PRN (17:22)
--- NOTE | 2019-02-13 17:38 | OP ---
OPERATIVE REPORT PREOPERATIVE DIAGNOSIS: Wet gangrene, right foot second toe, with bone exposed. OPERATION: Amputation of right foot second toe at metatarsophalangeal joint level. DESCRIPTION OF OPERATION: The patient was brought to the operating room. Right foot was prepped and draped in the usual sterile manner. Under local and IV sedation an elliptical incision was made to the dorsal aspect of the foot, went circumferentially around the second toe and deepened through skin, fat and fascia. Tendons were divided until we reached the proximal phalanx. Periosteal elevator was used to elevate the periosteum from the proximal phalanx until we reached the metatarsophalangeal joint. Amputation was performed at metatarsophalangeal joint area. Specimen was removed, which was sent for deep culture. There were some bleeding points which were electrocoagulated. Wound was copiously irrigated with hydrogen peroxide and saline. After that, subcutaneous tissue was approximated with 3-0 Vicryl and skin was closed with 5-0 nylon with interrupted suture. Dressing was applied. The patient tolerated the procedure well. MMODL / IJN: [id number] /
[2019-02-13] MEDS: MONTELUKAST 10 MG TAB PO SCH (20:16)
[2019-02-13] MEDS: MAGNESIUM OXIDE 400 MG TAB PO SCH (20:16)
[2019-02-13] MEDS: ESCITALOPRAM 10 MG TAB PO SCH (20:16)
[2019-02-13 20:54] LABS: Glucose,Whole Blood 188 mg/dL (75-99)
[2019-02-14] MEDS: SODIUM CHLORIDE 0.9% 1,000 ML IV SCH ×2 (02:50→16:32)
[2019-02-14] MEDS: INSULIN ASPART (NovoLOG) 100 UNIT/ML VIAL SQ SCH ×7 (07:00→20:32)
[2019-02-14] MEDS ORDERED: INSULIN DETEMIR (LEVEMIR) 100 UNIT/ML SYR SQ SCH (07:00)
[2019-02-14 07:02] LABS: Glucose,Whole Blood 125 mg/dL (75-99)
[2019-02-14] MEDS ORDERED: SYMBICORT 160-4.5 MCG INHALER INHALATION ONE (07:16)
[2019-02-14] MEDS: DAPTOmycin 500 MG in SODIUM CHLORIDE 0.9% 50 ML IVPB SCH (07:32)
[2019-02-14] MEDS: ACETAMINOPHEN TAB 500 MG TAB PO SCH ×2 (07:33→20:31)
[2019-02-14] MEDS: PANTOPRAZOLE 40 MG TABLET PO SCH (07:33)
[2019-02-14] MEDS: METOPROLOL TARTRATE 12.5 MG TAB PO SCH ×2 (07:33→20:30)
[2019-02-14] MEDS: LISINOPRIL 5 MG TAB PO SCH (07:33)
[2019-02-14] MEDS: FUROSEMIDE 40 MG TAB PO SCH ×2 (07:33→20:31)
[2019-02-14] MEDS: SYMBICORT 160-4.5 MCG INHALER (BULK) INHALATION SCH ×2 (07:56→18:53)
[2019-02-14] MEDS: IPRATROPIUM-ALBUTEROL 3 ML NEB INHALATION SCH ×4 (07:56→18:53)
[2019-02-14] MEDS: FLUTICASONE 50MCG/SPRAY NASAL 16GM EA NOSTRIL SCH (08:41)
[2019-02-14 12:16] LABS: Glucose,Whole Blood 309 mg/dL (75-99)
[2019-02-14 16:51] LABS: Glucose,Whole Blood 232 mg/dL (75-99)
--- NOTE | 2019-02-14 19:58 | P.PN ---
Subjective Progress Note Date: 02/14/19 This is an 83-year-old gentleman with extensive medical history of atrial fibrillation, CAD, renal cancer, CHF, COPD, CVA/TIA, diabetes mellitus, hypertension, hyperlipidemia, CAD, NC, CABG, osteoarthritis,deficient anemia, sleep apnea presented to the ER with complaints of right foot second toe infection/infected ulcer with accompanying cellulitis of the right lower extremity failed outpatient treatment. 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 Receiving daptomycin outpatient via PICC line as per infectious disease. Reports low-grade fevers of 99.8. Denies any chest pain, palpitations or increased in shortness of breath, patient has a known 40% lung function, O2 dependent. Vital signs stable. Currently afebrile, WBC 13.4. BUN 26, creatinine 1.08. Lactic acid 1.1, albumin 3.8 Hyperglycemic, blood sugars in the 200s. Doppler right leg reported no DVT. Chest x-ray reports no acute changes. UA clear, negative for leukocytes, nitrates. Received IV fluids and IV Levaquin in the ER. 02/12/2019 maintained on IV antibiotics as per infectious disease. Labs pending. Amputation of the affected toe discussed and patient agreeable, scheduling of procedure pending. Vital signs stable, afebrile. Preliminary blood cultures negative. Blood sugars controlled. Denies pain. Denies chest pain, palpitations or shortness of breath. 02/13/2019 scheduled for amputation of toe with vascular surgery today. Vital signs stable. Maintain on IV daptomycin. Afebrile. Blood sugars elevated into the 200s. Denies chest pain, palpitations shortness of breath. Denies pain 02/14/2019 status post amputation of right foot second toe yesterday, tolerated procedure well. Pain controlled. Receiving antibiotics as per infectious disease. Afebrile, vital signs stable. Hyperglycemic with sugars up to 300. Denies chest pain, palpitations or shortness of breath. Objective - Vital Signs Vital signs: Vital Signs Temp 97.7 F 02/14/19 14:26 Pulse 78 02/14/19 14:52 Resp 16 02/14/19 14:26 BP 158/68 02/14/19 14:26 Pulse Ox 93 L 02/14/19 14:26 Intake & Output 02/13/19 02/14/19 02/14/19 18:59 06:59 18:59 Intake Total 756 338 9582 Output Total 260 350 Balance 499 316 0818 Intake: IV 750 650 DAPTOmycin 500 mg In 50 Sodium Chloride 0.9% 50 ml @ 100 mls/hr IVPB Q24H [facility] Rx#:[id number] Sodium Chloride 0.9% 1, 600 000 ml @ 75 mls/hr IV . [id number] [facility] Rx#:[id number] Oral 625 780 Output: Urine 250 350 Estimated Blood Loss 10 Other: # Voids 3 5 6 # Bowel Movements 1 - Exam VITAL SIGNS: As above GENERAL: Sitting up in chair, no acute distress. HEENT: Conjunctivae normal. eyes normal. Oral mucosa moist NECK: No JVD. No thyroid enlargement. No LNs CARDIOVASCULAR: S1, S2 regular. Systolic murmur RESPIRATION: Breath sounds diminished in the bases. No rhonchi, crackles or wheezes. ABDOMEN: Obese, Soft, mildly distended, nontender . No guarding. no masses palpable.Positive bowel sounds. LEGS: Right lower extremit reddened, decreased edema, tender, dressing clean dry and intact PSYCHIATRY: Alert and oriented X3, mood and affect normal NERVOUS SYSTEM: Cranial N 2-12 grossly normal. Moves all 4 limbs. Diffuse weakness ,No focal deficits. Strength grossly intact.. Decreased sensation of feet Skin: no lesions, no rash Microbiology 02/13/19 16:45 Toe - Right Second Gram Stain - Preliminary 02/13/19 16:45 Toe - Right Second Tissue Culture - Preliminary 02/13/19 16:45 Toe - Right Second Anaerobic Culture - Preliminary 02/10/19 19:34 Blood Blood Culture - Preliminary No Growth after 72 hours - Labs CBC & Chem 7: 02/13/19 08:16 02/13/19 08:16 Labs: Abnormal Lab Results - Last 24 Hours (Table) 02/13/19 02/14/19 02/14/19 Range/Units 20:37 07:00 12:11 POC Glucose (mg/dL) 188 H 125 H 309 H (75-99) mg/dL Microbiology - Last 24 Hours (Table) 02/13/19 16:45 Gram Stain - Preliminary Toe - Right Second Tissue Culture - Preliminary 02/13/19 16:45 Anaerobic Culture - Preliminary Toe - Right Second 02/10/19 19:34 Blood Culture - Preliminary Blood No Growth after 72 hours Assessment and Plan Assessment: -Cellulitis with Right great toe infected ulcer with tunneling to the wound above second toe ,failed outpatient treatment, in a patient with Chronic Right foot diabetic ulcer, 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 Status post amputation right foot second toe. -COPD, Chronic, stable. -Chronic renal failure, stage III. Baseline 1.2. 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 11.4 on prior admission. 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 Levemir insulin increase with close monitoring of Accu-Cheks .Discharge antibiotics obtained from infectious disease. Patient and agreeable to subacute rehab at discharge. Social work consulted. Discharge planning in progress for subacute rehab pending vascular surgery clearance. The impression and plan of care has been dictated as directed. : I performed a history and examination of this patient, discussed the same with the dictator. I agree with the dictator's note ,documented as a scribe. Any additional findings or plans will be noted.
--- NOTE | 2019-02-14 20:27 | PN ---
PROGRESS NOTE Patient is an 83-year-old gentleman who had right foot second toe amputation with primary closure. The patient is on IV antibiotic, under care of Infectious Disease. Today we have changed the dressing. Incision site looks clean. No discharge noted. PLAN: Continue with IV antibiotic. He might be going to a [facility]. Recommend to have a Darco shoe and minimum weightbearing on the right foot. I will see him on Monday at 10 a.m. in my office. MMMARIAM / SAMANTHAN: [id number] /
[2019-02-14] MEDS: ESCITALOPRAM 10 MG TAB PO SCH (20:31)
[2019-02-14] MEDS: MONTELUKAST 10 MG TAB PO SCH (20:31)
[2019-02-14] MEDS: MAGNESIUM OXIDE 400 MG TAB PO SCH (20:31)
[2019-02-14 20:34] LABS: Glucose,Whole Blood 109 mg/dL (75-99)
[2019-02-15] MEDS ORDERED: INSULIN DETEMIR (LEVEMIR) 100 UNIT/ML SYR SQ SCH (07:00)
[2019-02-15 07:07] LABS: Glucose,Whole Blood 179 mg/dL (75-99)
[2019-02-15] MEDS: SYMBICORT 160-4.5 MCG INHALER (BULK) INHALATION SCH (07:15)
[2019-02-15] MEDS: IPRATROPIUM-ALBUTEROL 3 ML NEB INHALATION SCH ×3 (07:15→16:10)
[2019-02-15 07:58] VITALS: RESP 16
[2019-02-15] MEDS: FLUTICASONE 50MCG/SPRAY NASAL 16GM EA NOSTRIL SCH (08:18)
[2019-02-15] MEDS: SODIUM CHLORIDE 0.9% 1,000 ML IV SCH (08:23)
[2019-02-15] MEDS: ACETAMINOPHEN TAB 500 MG TAB PO SCH (08:24)
[2019-02-15] MEDS: INSULIN ASPART (NovoLOG) 100 UNIT/ML VIAL SQ SCH ×4 (08:24→12:35)
[2019-02-15] MEDS: METOPROLOL TARTRATE 12.5 MG TAB PO SCH (08:24)
[2019-02-15] MEDS: DAPTOmycin 500 MG in SODIUM CHLORIDE 0.9% 50 ML IVPB SCH (08:24)
[2019-02-15] MEDS: FUROSEMIDE 40 MG TAB PO SCH (08:24)
[2019-02-15] MEDS: PANTOPRAZOLE 40 MG TABLET PO SCH (08:24)
[2019-02-15] MEDS: LISINOPRIL 5 MG TAB PO SCH (08:24)
[2019-02-15 11:41] VITALS: BMI 35.1
[2019-02-15 11:56] LABS: Glucose,Whole Blood 233 mg/dL (75-99)
[2019-02-15 14:08] VITALS: BP 132/64; PULSE 51; TEMP 97
--- NOTE | 2019-02-15 14:23 | P.DS ---
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,hx osteomyelitis Do you want consulting provider notified?: Yes, Notify in am Primary care physician: Luis Quesada Patient Condition at Discharge: Stable Plan - Discharge Summary Discharge Rx Participant: No New Discharge Prescriptions: New RX: Sulfamethox-Tmp 400-80Mg [Bactrim SS 400-80 mg] 1 tab PO Q12HR #20 tablet No Action RX: Montelukast [Singulair] 10 mg PO HS RX: Pravastatin Sodium 40 mg PO HS RX: Acetaminophen Tab [Tylenol] 1,000 mg PO BID RX: Pantoprazole [Protonix] 40 mg PO DAILY #30 tab RX: Insulin Aspart [NovoLOG Flexpen] See Protocol SQ AC-TID PRN PRN Reason: Blood Sugar - High RX: Budesonide-Formot 160-4.5 Mcg [Symbicort 160-4.5 Mcg Inhaler] 2 puff INHALATION RT-BID RX: Lisinopril [Zestril] 5 mg PO DAILY RX: Escitalopram Oxalate [Lexapro] 10 mg PO HS RX: Cyanocobalamin (Vitamin B-12) [Vitamin B-12] 1,000 mcg PO TUFR RX: Fluticasone Nasal [place] [Flonase Nasal [place]] 2 spray EA NOSTRIL DAILY #1 bottle RX: Furosemide [Lasix] 40 mg PO BID #60 tab RX: Ipratropium-Albuterol Nebulize [Duoneb 0.5 mg-3 mg/3 ml Soln] 3 ml INHALATION RT-QID #0 RX: Insulin Aspart [NovoLOG Flexpen] 17 units SQ TID-W/MEALS #0 RX: DAPTOmycin [Cubicin Rf] 500 mg IVPB DAILY #42 vial Metoprolol Tartrate [Lopressor] 12.5 mg PO BID RX: Magnesium Oxide [Mag-Ox] 400 mg PO HS RX: Insulin Detemir [Levemir Flextouch] 60 units SQ HS Discharge Medication List RX: Montelukast [Singulair] 10 mg PO HS 12/21/14 [History] RX: Pravastatin Sodium 40 mg PO HS 02/07/16 [History] RX: Acetaminophen Tab [Tylenol] 1,000 mg PO BID 03/17/17 [History] RX: Pantoprazole [Protonix] 40 mg PO DAILY #30 tab 03/21/17 [Rx] RX: Insulin Aspart [NovoLOG Flexpen] See Protocol SQ AC-TID PRN 11/12/17 [History] RX: Budesonide-Formot 160-4.5 Mcg [Symbicort 160-4.5 Mcg Inhaler] 2 puff INHALATION RT-BID 11/13/17 [History] RX: Lisinopril [Zestril] 5 mg PO DAILY 01/26/18 [History] RX: Escitalopram Oxalate [Lexapro] 10 mg PO HS 04/19/18 [History] RX: Cyanocobalamin (Vitamin B-12) [Vitamin B-12] 1,000 mcg PO TUFR 01/15/19 [History] RX: DAPTOmycin [Cubicin Rf] 500 mg IVPB DAILY #42 vial 01/22/19 [Rx] RX: Fluticasone Nasal [place] [Flonase Nasal [place]] 2 spray EA NOSTRIL DAILY #1 bottle 01/22/19 [Rx] RX: Furosemide [Lasix] 40 mg PO BID #60 tab 01/22/19 [Rx] RX: Insulin Aspart [NovoLOG Flexpen] 17 units SQ TID-W/MEALS #0 01/22/19 [Rx] RX: Ipratropium-Albuterol Nebulize [Duoneb 0.5 mg-3 mg/3 ml Soln] 3 ml INHALATION RT-QID #0 01/22/19 [Rx] Metoprolol Tartrate [Lopressor] 12.5 mg PO BID 02/10/19 [History] RX: Insulin Detemir [Levemir Flextouch] 60 units SQ HS 02/10/19 [History] RX: Magnesium Oxide [Mag-Ox] 400 mg PO HS 02/10/19 [History] RX: Sulfamethox-Tmp 400-80Mg [Bactrim SS 400-80 mg] 1 tab PO Q12HR #20 tablet 02/14/19 [Rx] Follow up Appointment(s)/Referral(s): [facility], [NON-STAFF] - Luis Quesada Jr, DO [Primary Care Provider] - 1-2 days Adalid Mae MD [STAFF PHYSICIAN] - 02/18/19 Patient Instructions/Handouts: Cellulitis (DC) Activity/Diet/Wound Care/Special Instructions: minimal weight bearing right foot and wear darco boot when up. Non weight bearing right foot if darco boot not on. dry 4x4 secured with walt to right 2nd toe amputation daily and prn
== END 2019-02-15 16:08 | DRG 240 ==
LOC: EC 18:22 → 4MS4W 23:30 → OBSVTOIN 23:33 → 4MS4W 02-11 00:36
PROVIDERS: ADMIT Family Medicine; ATTEND Family Medicine
PROC: 0Y6M0ZB Detachment at Right Foot, Partial 2nd Ray, Open Approach (ICD-10-PCS; principal; 2019-02-13 15:30)
DX: E11.52 Type 2 diabetes mellitus with diabetic peripheral angiopathy with gangrene (principal); I13.0 Hypertensive heart and chronic kidney disease with heart failure and stage 1 through stage 4 chronic kidney disease, or unspecified chronic kidney disease; L03.115 Cellulitis of right lower limb; L97.516 Non-pressure chronic ulcer of other part of right foot with bone involvement without evidence of necrosis; E11.40 Type 2 diabetes mellitus with diabetic neuropathy, unspecified; E11.621 Type 2 diabetes mellitus with foot ulcer; E11.628 Type 2 diabetes mellitus with other skin complications; E11.65 Type 2 diabetes mellitus with hyperglycemia; E78.5 Hyperlipidemia, unspecified; G47.33 Obstructive sleep apnea (adult) (pediatric); I08.1 Rheumatic disorders of both mitral and tricuspid valves; I25.10 Atherosclerotic heart disease of native coronary artery without angina pectoris; I25.2 Old myocardial infarction; I27.20 Pulmonary hypertension, unspecified; I48.0 Paroxysmal atrial fibrillation; I50.9 Heart failure, unspecified; J44.9 Chronic obstructive pulmonary disease, unspecified; K21.9 Gastro-esophageal reflux disease without esophagitis; K55.20 Angiodysplasia of colon without hemorrhage; M19.041 Primary osteoarthritis, right hand; M19.042 Primary osteoarthritis, left hand; N18.3 Chronic kidney disease, stage 3 (moderate); N40.0 Benign prostatic hyperplasia without lower urinary tract symptoms; Z79.4 Long term (current) use of insulin; Z79.51 Long term (current) use of inhaled steroids; Z79.899 Other long term (current) drug therapy; Z82.49 Family history of ischemic heart disease and other diseases of the circulatory system; Z82.5 Family history of asthma and other chronic lower respiratory diseases; Z85.528 Personal history of other malignant neoplasm of kidney; Z86.14 Personal history of Methicillin resistant Staphylococcus aureus infection; Z86.73 Personal history of transient ischemic attack (TIA), and cerebral infarction without residual deficits; B95.62 Methicillin resistant Staphylococcus aureus infection as the cause of diseases classified elsewhere; D50.9 Iron deficiency anemia, unspecified; E11.22 Type 2 diabetes mellitus with diabetic chronic kidney disease; Z87.891 Personal history of nicotine dependence; Z90.411 Acquired partial absence of pancreas; Z90.5 Acquired absence of kidney; Z90.81 Acquired absence of spleen; Z91.19 Patient's noncompliance with other medical treatment and regimen; Z95.1 Presence of aortocoronary bypass graft; Z99.81 Dependence on supplemental oxygen; Z88.1 Allergy status to other antibiotic agents; Z88.5 Allergy status to narcotic agent; Z88.0 Allergy status to penicillin; Z88.2 Allergy status to sulfonamides; Z88.8 Allergy status to other drugs, medicaments and biological substances
CPT/HCPCS: 36415; 71046; 80048; 80053; 81003; 83605; 85025; 85610; 85652; 85730; 86140; 87040; 87070; 87075; 87205; 93005; 94640; 94760; 96365; 99285

== ENCOUNTER 2019-04-02 18:05 | Inpatient (IN) | payer MEDICARE, BC ==
[2019-04-02] MEDS ORDERED: SODIUM CHLORIDE 0.9% 1,000 ML IV STA (18:15)
[2019-04-02] MEDS ORDERED: MORPHINE SULFATE 4 MG/ML SYRINGE IV STA (18:15)
--- NOTE | 2019-04-02 18:15 | ED ---
Chest Pain HPI - General Stated Complaint: Stomach pain/dizziness Time Seen by Provider: 04/02/19 18:13 Source: RN notes reviewed, old records reviewed Limitations: no limitations - History of Present Illness Initial Comments: This is a 83-year-old male the ER for evaluation. Patient presents today for evaluation regards to feeling well found down possible chest. Possible abdominal pain. Patient's a poor strain family states that shortness of breath and not feeling well lately. Patient here in the ER is denying chest pain denies shortness of breath. He is having some nausea and vomiting. She was mildly low on arrival. History otherwise obtained from EMS and family at bedside MD Complaint: chest pain, other (Abdominal pain) -: unknown (Patient was found down today) Onset: during rest, during exertion Pain Location: substernal Severity: mild Severity scale (1-10): 3 Quality: aching, heaviness, similar to prior IA Consistency: constant Improves With: nothing Worsens With: nothing Anginal Symptoms: nausea, vomiting, diaphoresis, dyspnea Treatments Prior to Arrival: none - Related Data Home Medications Medication Instructions Recorded Confirmed Montelukast [Singulair] 10 mg PO HS 12/21/14 04/02/19 Pravastatin Sodium 40 mg PO HS 02/07/16 04/02/19 Acetaminophen Tab [Tylenol] 1,000 mg PO BID 03/17/17 04/02/19 Insulin Aspart [NovoLOG Flexpen] See Protocol SQ AC-TID PRN 11/12/17 04/02/19 Budesonide-Formot 160-4.5 Mcg 2 puff INHALATION RT-BID 11/13/17 04/02/19 [Symbicort 160-4.5 Mcg Inhaler] Lisinopril [Zestril] 5 mg PO DAILY 01/26/18 04/02/19 Escitalopram Oxalate [Lexapro] 10 mg PO HS 04/19/18 04/02/19 Cyanocobalamin (Vitamin B-12) 1,000 mcg PO TUFR 01/15/19 04/02/19 [Vitamin B-12] Insulin Detemir [Levemir Flextouch] 60 units SQ HS 02/10/19 04/02/19 Magnesium Oxide [Mag-Ox] 400 mg PO HS 02/10/19 04/02/19 Metoprolol Tartrate [Lopressor] 12.5 mg PO BID 02/10/19 04/02/19 amLODIPine [Norvasc] 10 mg PO HS 04/02/19 04/02/19 Previous Rx's Medication Instructions Recorded Pantoprazole [Protonix] 40 mg PO DAILY #30 tab 03/21/17 Fluticasone Nasal [place] [Flonase 2 spray EA NOSTRIL DAILY #1 bottle 01/22/19 Nasal [place]] Furosemide [Lasix] 40 mg PO BID #60 tab 01/22/19 Insulin Aspart [NovoLOG Flexpen] 17 units SQ TID-W/MEALS #0 01/22/19 Ipratropium-Albuterol Nebulize 3 ml INHALATION RT-QID #0 01/22/19 [Duoneb 0.5 mg-3 mg/3 ml Soln] Sulfamethox-Tmp 400-80Mg [Bactrim 1 tab PO Q12HR #20 tablet 02/14/19 SS 400-80 mg] Allergies Allergy/AdvReac Type Severity Reaction Status Date / Time Penicillins Allergy Unknown Rash/Hives Verified 04/02/19 19:57 atorvastatin calcium Allergy Unknown Verified 04/02/19 19:57 [From Lipitor] clonazepam [From Klonopin] Allergy Hallucinati Verified 04/02/19 19:57 ons codeine Allergy Hallucinati Verified 04/02/19 19:57 ons haloperidol [From Haldol] Allergy Hallucinati Verified 04/02/19 19:57 ons haloperidol lactate Allergy Hallucinati Verified 04/02/19 19:57 [From Haldol] ons hydromorphone HCl Allergy Hallucinati Verified 04/02/19 19:57 [From Dilaudid] ons methylphenidate HCl Allergy Hallucinati Verified 04/02/19 19:57 [From Ritalin] ons morphine Allergy Hallucinati Verified 04/02/19 19:57 ons propofol Allergy Hallucinati Verified 04/02/19 19:57 ons quetiapine fumarate Allergy Hallucinati Verified 04/02/19 19:57 [From Seroquel] ons Sulfa (Sulfonamide Allergy Unknown Verified 04/02/19 19:57 Antibiotics) vancomycin Allergy Unknown Verified 04/02/19 19:57 ativan AdvReac Unknown Uncoded 04/02/19 18:18 Review of Systems ROS Statement: Those systems with pertinent positive or pertinent negative responses have been documented in the HPI. ROS Other: All systems not noted in ROS Statement are negative. Past Medical History Past Medical History: Atrial Fibrillation, Coronary Artery Disease (CAD), Cancer, Heart Failure, COPD, CVA/TIA, Diabetes Mellitus, Eye Disorder, GERD/Reflux, GI Bleed, Hyperlipidemia, Hypertension, Myocardial Infarction (IA), Osteoarthritis (OA), Pneumonia, Prostate Disorder, Renal Disease, Skin Disorder, Sleep Apnea/CPAP/BIPAP, Vascular Disorder Additional Past Medical History / Comment(s): Pt recently admitted to [facility] on 01/15/19 with osteomylitis, CAP, mild exacerbation CHF, tracheopurulent bronchitis, hypoxic respiratory failure, paroxysmal Afib, moderate mitral and tricuspid regurg and severe pulmonary HTN. Other hx: Anemia, blood and iron transfusions, right leg cellulitis, IDDM type II, neuropathy bilateral hands/feet, chronic diabetic wounds, 2013 L renal cancer with surgery - partial nephrectomy/spleenectomy/distal portion of pancreas removed at [facility], TIA, [place] unknown date, BPH, gastritis, small hiatal hernia, past discitis T9-T10, arthritis bilateral hands/back, TARIQ - does not tolerate his CPAP, CKD stage III/hyperkalemia, UTI, sepsis, PVD. Last Myocardial Infarction Date:: UNKNOWN History of Any Multi-Drug Resistant Organisms: MRSA Date of last positivie culture/infection: 01/17/19 MDRO Source:: RIGHT TOE Past Surgical History: Coronary Bypass/CABG, Heart Catheterization, Orthopedic Surgery Additional Past Surgical History / Comment(s): Partial L nephrectomy, distal pancreatectomy, splenectomy - at [place]2000 CABG - 3 vessel, EGD, colonoscopy, deviated septum surgery, skin/oral lesion removals, R carpal tunnel release, bilateral cataract removal, bilateral laser eye surgery for "leakage", PICC lines and has one currently to R arm. Past Anesthesia/Blood Transfusion Reactions: Previous Problems w/ Anesthesia Additional Past Anesthesia/Blood Transfusion Reaction / Comment(s): 'TROUBLE COMING OUT OF ANESTHESIA' - DELUSIONAL. Patient has received blood in past without reaction. Smoking Status: Former smoker - Past Family History Father Family Medical History: Myocardial Infarction (IA) Additional Family Medical History / Comment(s): Father of a IA at the age of 65yrs. Mother Family Medical History: COPD General Exam General appearance: alert, in no apparent distress Head exam: Present: atraumatic, normocephalic, normal inspection Eye exam: Present: normal appearance, PERRL, EOMI. Absent: scleral icterus, conjunctival injection, periorbital swelling ENT exam: Present: normal exam, mucous membranes moist Neck exam: Present: normal inspection. Absent: tenderness, meningismus, lymphadenopathy Respiratory exam: Present: normal lung sounds bilaterally. Absent: respiratory distress, wheezes, rales, rhonchi, stridor Cardiovascular Exam: Present: regular rate, normal rhythm, normal heart sounds. Absent: systolic murmur, diastolic murmur, rubs, gallop, clicks GI/Abdominal exam: Present: soft, normal bowel sounds. Absent: distended, tenderness, guarding, rebound, rigid Extremities exam: Present: normal inspection, full ROM, normal capillary refill. Absent: tenderness, pedal edema, joint swelling, calf tenderness Back exam: Present: normal inspection Neurological exam: Present: alert, oriented X3, CN II-XII intact Psychiatric exam: Present: normal affect, normal mood Skin exam: Present: warm, dry, intact, normal color. Absent: rash Course Vital Signs 04/02/19 18:15 Temperature 98.2 F Pulse Rate 89 Respiratory 0 L Rate Blood Pressure 127/52 O2 Sat by Pulse 95 Oximetry - Reevaluation(s) Reevaluation #1: 04/02/19 19:11 Medical record reviewed Reevaluation #2: 04/02/19 19:11 Unable to get CTA secondary to bed kidney function Reevaluation #3: 04/02/19 20:28 Patient coming, increasingly short of breath here in the ER - Consultations Consultation #1: Spoke with Dr. Quesada, will admit, consult pulmonology and cardiology Chest Pain MDM - MDM 83 male the ER for evaluation patient resents today for evaluation regards to shortness of breath hypoxia having anxiety secondary to hypoxia. Patient will be admitted for diuresis breathing treatments and continue cardiac monitoring. Critical Care Time Critical Care Time: Yes Total Critical Care Time: 5 Disposition Clinical Impression: Abdominal pain, Atrial fibrillation, Unstable angina, Hx of CABG, CHF (congestive heart failure), Hypoxia Disposition: ADMITTED IP TO THIS HOSP Condition: Fair Is patient prescribed a controlled substance at d/c from ED?: No Referrals: Carlos Michelle MD [STAFF PHYSICIAN] - 1-2 days
[2019-04-02 18:40] LABS: Anisocytosis Slight; Basophils # (A) 0.1 k/uL (0-0.2); Basophils % (A) 1 %; Eosinophils # (A) 0.2 k/uL (0-0.7); Eosinophils % (A) 2 %; HCT 33.7 % (39.0-53.0); HGB 10.4 gm/dL (13.0-17.5); Hypochromasia Slight; Lymphocytes # (A) 1.3 k/uL (1.0-4.8); Lymphocytes % (A) 10 %; MCH 26.1 pg (25.0-35.0); MCHC 30.8 g/dL (31.0-37.0); MCV 84.5 fL (80.0-100.0); Mean Platelet Volume 7.5; Monocytes # (A) 0.8 k/uL (0-1.0); Monocytes % (A) 6 %; Neutrophils # (A) 10.1 k/uL (1.3-7.7); Neutrophils % (A) 79 %; Platelet Count 391 k/uL (150-450); RBC 3.99 m/uL (4.30-5.90); RDW 19.3 % (11.5-15.5); WBC 12.8 k/uL (3.8-10.6)
[2019-04-02 18:49] LABS: Albumin 4.4 g/dL (3.5-5.0); Calcium 9.4 mg/dL (8.4-10.2); Magnesium 2.2 mg/dL (1.6-2.3); Phosphorus 4.3 mg/dL (2.5-4.5); Potassium 5.2 mmol/L (3.5-5.1); Total Bilirubin 0.5 mg/dL (0.2-1.3); Total Protein 7.4 g/dL (6.3-8.2)
[2019-04-02 18:50] LABS: INR 1.1 (<1.2); Partial Thromboplastin Time 27.1 sec (22.0-30.0); Prothrombin Time 11.7 sec (9.0-12.0)
--- NOTE | 2019-04-02 19:25 | XR ---
EXAMINATION: XR chest 1V portable DATE AND TIME: 04/02/2019 6:58 PM CLINICAL INDICATION: PHH; sob and dizziness TECHNIQUE: AP upright portable COMPARISON: 02/10/2019 FINDINGS: There is mild obscuration of the pulmonary vasculature bilaterally by a fine reticular pattern of inc reased density consistent with moderate interstitial phase pulmonary edema. Cardiac silhouette moderately enlarged, unchanged. Sternal sutures redemonstrated. The pleural spaces are negative. The skeletal structures and soft tissues are negative for acute findings. IMPRESSION: Interstitial phase pulmonary edema radiographic pattern, apparently cardiogenic etiology.
--- NOTE | 2019-04-02 20:22 | CT ---
EXAMINATION TYPE: CT ChestAbdPelvis wo con DATE OF EXAM: 04/02/2019 COMPARISON: 10/27/2017 CT HISTORY: Chest pain,dizziness; dyspnea. TECHNIQUE: CT scan of the thorax, abdomen and pelvis is performed without IV contrast. CT DLP: 1368.8 mGycm. Automated Exposure Control for Dose Reduction was Utilized. FINDINGS: LUNGS: The airways and lungs are negative for definite acute process. PLEURAL SPACES: Negative. MEDIASTINUM: Moderate cardiomegaly. No pericardial effusion. Post-CABG changes noted. Scattered subce ntimeter short axis mediastinal lymph nodes noted, without definite adenopathy. LIVER/GB: No significant abnormality is appreciated. PANCREAS: No significant abnormality is seen. SPLEEN: No significant abnormality is seen. ADRENALS: No significant abnormality is seen. KIDNEYS: No significant abnormality is seen. BOWEL: No significant abnormality is seen. GENITAL ORGANS: No gross abnormality seen. LYMPH NODES: No greater than 1cm abdominal or pelvic lymph nodes are appreciated. OSSEOUS STRUCTURES: No significant abnormality is seen. IMPRESSION: NO DEFINITE ACUTE NONCONTRAST CT PROCESS.
[2019-04-02] MEDS ORDERED: IPRATROPIUM-ALBUTEROL 3 ML NEB INHALATION STA (20:23)
[2019-04-02] MEDS ORDERED: LORazepam 2 MG/ML INJ IV STA (20:23)
[2019-04-02] MEDS ORDERED: methylPREDNISolone SOD SUCCI 125 MG/2 ML VIAL IV STA (20:28)
[2019-04-02] MEDS ORDERED: HEPARIN SODIUM,PORCINE 10,000 UNIT/ML 1 ML VIAL IV ONE (20:31)
[2019-04-02] MEDS ORDERED: HEPARIN SODIUM,PORCINE 5,000 UNIT/ML 1 ML VIAL IV PRN (20:31)
[2019-04-02] MEDS: FUROSEMIDE 10 MG/ML 4 ML VIAL IV SCH (21:00)
[2019-04-02] MEDS: HEPARIN SOD,PORK IN 0.45% NACL 25,000 UNIT in 0.45% NACL 1 250ML.BAG IV SCH (21:02)
[2019-04-02 22:09] LABS: Glucose,Whole Blood 298 mg/dL (75-99)
[2019-04-02] MEDS: INSULIN ASPART (NovoLOG) 100 UNIT/ML VIAL SQ SCH (22:11)
[2019-04-02] MEDS: methylPREDNISolone SOD SUCCI 125 MG/2 ML VIAL IV SCH (23:00)
[2019-04-03] MEDS: methylPREDNISolone SOD SUCCI 125 MG/2 ML VIAL IV SCH ×2 (05:15→12:23)
[2019-04-03] MEDS: FUROSEMIDE 10 MG/ML 4 ML VIAL IV SCH ×3 (05:15→21:01)
[2019-04-03 06:25] LABS: INR 1.3 (<1.2)
[2019-04-03 06:25] LABS: Glucose,Whole Blood 332 mg/dL (75-99)
[2019-04-03] MEDS: INSULIN ASPART (NovoLOG) 100 UNIT/ML VIAL SQ SCH ×5 (06:29→20:28)
[2019-04-03 06:33] LABS: Anisocytosis Slight; Basophils % (A) 0 %; Eosinophils % (A) 0 %; HCT 34.1 % (39.0-53.0); HGB 10.6 gm/dL (13.0-17.5); Hypochromasia Marked; Lymphocytes # (A) 0.4 k/uL (1.0-4.8); Lymphocytes % (A) 3 %; MCH 26.5 pg (25.0-35.0); MCV 85.4 fL (80.0-100.0); Mean Platelet Volume 9.2; Monocytes # (A) 0.2 k/uL (0-1.0); Monocytes % (A) 1 %; Neutrophils # (A) 12.1 k/uL (1.3-7.7); Neutrophils % (A) 95 %; Platelet Count 399 k/uL (150-450); RBC 3.99 m/uL (4.30-5.90); RDW 18.8 % (11.5-15.5); WBC 12.8 k/uL (3.8-10.6)
[2019-04-03] MEDS: ALBUTEROL NEBULIZED 2.5 MG/3 ML INHALATION SCH ×2 (07:16→11:24)
--- NOTE | 2019-04-03 09:06 | P.CRDCN ---
History of Present Illness Consult date: 04/03/19 Requesting physician: Luis Quesada Jr Consult reason: congestive heart failure Chief complaint: Weakness, shortness of breath and swelling History of present illness: This is a pleasant 83-year-old gentleman who follows regularly with Dr. Lr in the office. He has a known history of coronary artery disease with prior bypass surgery, paroxysmal atrial fibrillation, diabetes, hyp ertension, hyperlipidemia, history of renal cancer status post nephrectomy, prior TIA, prior splenectomy, sleep apnea, history of GI bleed, anemia requiring blood and iron transfusions. He presents to the hospital on this occasion with symptoms of significant swelling in his lower extremities and abdominal area with associated shortness of breath. Patient has also been quite weak at home, he felt as though he may fall, so he left himself down to the ground and had to crawl to try to get to a phone for help. He's been also experiencing significant abdominal swelling and some discomfort in the abdomen with associated nausea and vomiting. His chest x-ray on presentation here showed interstitial phase pulmonary edema. CT of the abdomen and chest was performed which did not reveal any definite process. EKG shows atrial fibrillation with a controlled ventricular response, incomplete left bundle branch block pattern and occasional PVC. Blood pressure 127/88, heart rate in the 70s, 93% on 4 L of oxygen. White blood cell count 12.8, hemoglobin 10.6, platelet count 399. Sodium 132, potassium 5.2, BUN 39 and creatinine 1.5. Troponin is negative. BNP [id number]. Patient was initiated on IV Lasix in the emergency room. At the time of my examination this morning, he continues to feel short of breath, discontinue's to feel bloated in his abdomen. Past Medical History Past Medical History: Atrial Fibrillation, Coronary Artery Disease (CAD), Cancer, Heart Failure, COPD, CVA/TIA, Diabetes Mellitus, Eye Disorder, GERD/Reflux, GI Bleed, Hyperlipidemia, Hypertension, Myocardial Infarction ([place]), Osteoarthritis (OA), Pneumonia, Renal Disease, Skin Disorder, Sleep Apnea/CPAP/BIPAP, Vascular Disorder Additional Past Medical History / Comment(s): Pt recently admitted to [facility] on 01/15/19 with osteomylitis, CAP, mild exacerbation CHF, tracheopurulent bronchitis, hypoxic respiratory failure, paroxysmal Afib, moderate mitral and tricuspid regurg and severe pulmonary HTN. Other hx: Anemia, blood and iron transfusions, right leg cellulitis, IDDM type II, neuropathy bilateral hands/feet, chronic diabetic wounds, 2013 L renal cancer with surgery - partial nephrectomy/spleenectomy/distal portion of pancreas removed at [facility], TIA, [place] unknown date, BPH, gastritis, small hiatal hernia, past discitis T9-T10, arthritis bilateral hands/back, TARIQ - does not tolerate his CPAP, CKD stage III/hyperkalemia, UTI, sepsis, PVD. Last Myocardial Infarction Date:: UNKNOWN History of Any Multi-Drug Resistant Organisms: MRSA Date of last positivie culture/infection: 01/17/19 MDRO Source:: RIGHT TOE Past Surgical History: Coronary Bypass/CABG, Heart Catheterization, Orthopedic Surgery Additional Past Surgical History / Comment(s): Partial L nephrectomy, distal p ancreatectomy, splenectomy - at [place], 2000 CABG - 3 vessel, EGD, colonoscopy, deviated septum surgery, skin/oral lesion removals, R carpal tunnel release, bilateral cataract removal, bilateral laser eye surgery for "leakage", Past Anesthesia/Blood Transfusion Reactions: Previous Problems w/ Anesthesia Additional Past Anesthesia/Blood Transfusion Reaction / Comment(s): 'TROUBLE COMING OUT OF ANESTHESIA' - DELUSIONAL. Patient has received blood in past without reaction. Past Psychological History: Anxiety, Depression Additional Psychological History / Comment(s): Pt resides with his spouse. He has a cane and a walker and a glucometer. He no longer drives, his spouse drives and manages his medications. 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 Smoking Status: Never smoker Past Alcohol Use History: Occasional Additional Past Alcohol Use History / Comment(s): Patient states he smoked briefly [id number] and it was only socially. No marijuana or illicit drug use. No alcohol use. Past Drug Use History: None Reported - Past Family History Father Family Medical History: Myocardial Infarction ([place]) Additional Family Medical History / Comment(s): Father of a [place] at the age of 65yrs. Mother Family Medical History: COPD Medications and Allergies Home Medications Medication Instructions Recorded Confirmed Type Montelukast [Singulair] 10 mg PO HS 12/21/14 04/02/19 History Pravastatin Sodium 40 mg PO HS 02/07/16 04/02/19 History Acetaminophen Tab [Tylenol] 1,000 mg PO BID 03/17/17 04/02/19 History Pantoprazole [Protonix] 40 mg PO DAILY #30 tab 03/21/17 04/02/19 Rx Insulin Aspart [NovoLOG Flexpen] See Protocol SQ AC-TID PRN 11/12/17 04/02/19 History Budesonide-Formot 160-4.5 Mcg 2 puff INHALATION RT-BID 11/13/17 04/02/19 History [Symbicort 160-4.5 Mcg Inhaler] Lisinopril [Zestril] 5 mg PO DAILY 01/26/18 04/02/19 History Escitalopram Oxalate [Lexapro] 10 mg PO HS 04/19/18 04/02/19 History Cyanocobalamin (Vitamin B-12) 1,000 mcg PO TUFR 01/15/19 04/02/19 History [Vitamin B-12] Fluticasone Nasal Royal [Flonase 2 spray EA NOSTRIL DAILY #1 bottle 01/22/19 04/02/19 Rx Nasal Royal] Furosemide [Lasix] 40 mg PO BID #60 tab 01/22/19 04/02/19 Rx Insulin Aspart [NovoLOG Flexpen] 17 units SQ TID-W/MEALS #0 01/22/19 04/02/19 Rx Insulin Detemir [Levemir Flextouch] 60 units SQ HS 02/10/19 04/02/19 History Magnesium Oxide [Mag-Ox] 400 mg PO HS 02/10/19 04/02/19 History Metoprolol Tartrate [Lopressor] 12.5 mg PO BID 02/10/19 04/02/19 History Sulfamethox-Tmp 400-80Mg [Bactrim 1 tab PO Q12HR #20 tablet 02/14/19 04/02/19 Rx SS 400-80 mg] amLODIPine [Norvasc] 10 mg PO HS 04/02/19 04/02/19 History Ipratropium-Albuterol Nebulize 3 ml INHALATION RT-QID PRN 04/03/19 04/02/19 History [Duoneb 0.5 mg-3 mg/3 ml Soln] Allergies Allergy/AdvReac Type Severity Reaction Status Date / Time Penicillins Allergy Unknown Rash/Hives Verified 04/02/19 19:57 atorvastatin calcium Allergy Unknown Verified 11/12/19 19:57 [From Lipitor] clonazepam [From Klonopin] Allergy Hallucinati Verified 04/02/19 19:57 ons codeine Allergy Hallucinati Verified 04/02/19 19:57 ons haloperidol [From Haldol] Allergy Hallucinati Verified 04/02/19 19:57 ons haloperidol lactate Allergy Hallucinati Verified 04/02/19 19:57 [From Haldol] ons hydromorphone HCl Allergy Hallucinati Verified 04/02/19 19:57 [From Dilaudid] ons methylphenidate HCl Allergy Hallucinati Verified 04/02/19 19:57 [From Ritalin] ons morphine Allergy Hallucinati Verified 04/02/19 19:57 ons propofol Allergy Hallucinati Verified 04/02/19 19:57 ons quetiapine fumarate Allergy Hallucinati Verified 04/02/19 19:57 [From Seroquel] ons Sulfa (Sulfonamide Allergy Unknown Verified 04/02/19 19:57 Antibiotics) vancomycin Allergy Unknown Verified 04/02/19 19:57 ativan AdvReac Unknown Uncoded 04/02/19 18:18 Physical Exam Vitals: Vital Signs Temp Pulse Pulse Resp BP BP Pulse Ox 04/03/19 03:29 73 19 04/03/19 03:11 97.9 F 73 19 127/88 93 L 04/03/19 00:00 97.7 F 66 18 146/74 98 04/02/19 21:06 66 22 135/56 94 L 04/02/19 20:53 97.8 F 66 19 147/64 93 L 04/02/19 20:48 64 04/02/19 20:38 66 04/02/19 18:15 98.2 F 89 0 L 127/52 95 Intake and Output 04/02/19 04/03/19 04/03/19 22:59 06:59 14:59 Intake Total 127.305 240 Output Total 936 168 1325 Balance -250 722.631 -869 Intake: Intake, IV Titration 127.305 Amount Heparin Sod,Pork in 0.45% 127.305 NaCl 25,000 unit In 0.45 % NaCl 1 250ml.bag @ 18 UNITS/KG/HR 18.86 mls/hr IV .[id number] [facility] Rx#: [id number] Oral 240 Output: Urine 577 705 6026 Other: Voiding Method Urinal # Voids 1 1 Weight 104.78 kg 108.5 kg PHYSICAL EXAMINATION: GENERAL: 83-year-old gentleman in no acute distress at the time of my examination HEENT: Head is atraumatic, normocephalic. Pupils equal, round. Sclera anicteric. Conjunctiva are clear. Mucous membranes of the mouth are moist. Neck is supple. There is elevated jugular venous pressure. No carotid bruit is heard. HEART EXAMINATION: Heart S1 and S2 irregularly irregular a systolic murmur is heard CHEST EXAMINATION: Lungs reveal crackles bilaterally with diminished air entry to the bases bilaterally ABDOMEN: Soft, mildly distended, positive generalized tenderness . Bowel sounds are heard. No organomegaly noted. EXTREMITIES: 1+ peripheral pulses with 1+ evidence of peripheral edema , evidence of a bilateral ear erythema suggestive of cellulitis, multiple open ulcerated areas noted. . NEUROLOGIC patient is awake, alert and oriented 3 . Results 04/03/19 05:23 04/02/19 18:27 Cardiac Enzymes 04/02/19 04/02/19 Range/Units 18:27 18:27 AST 37 (17-59) U/L Troponin I <0.012 (0.000-0.034) ng/mL Coagulation 04/02/19 04/03/19 04/03/19 Range/Units 18:27 02:46 05:23 PT 11.7 13.0 H (9.0-12.0) sec APTT 27.1 185.3 H* (22.0-30.0) sec CBC 04/02/19 04/03/19 Range/Units 18:27 05:23 WBC 12.8 H 12.8 H (3.8-10.6) k/uL RBC 3.99 L 3.99 L (4.30-5.90) m/uL Hgb 10.4 L 10.6 L (13.0-17.5) gm/dL Hct 33.7 L 34.1 L (39.0-53.0) % Plt Count 391 399 (150-450) k/uL Comprehensive Metabolic Panel 04/02/19 Range/Units 18:27 Sodium 132 L (137-145) mmol/L Potassium 5.2 H (3.5-5.1) mmol/L Chloride 97 L (98-107) mmol/L Carbon Dioxide 22 (22-30) mmol/L BUN 39 H (9-20) mg/dL Creatinine 1.57 H (0.66-1.25) mg/dL Glucose 293 H (74-99) mg/dL Calcium 9.4 (8.4-10.2) mg/dL AST 37 (17-59) U/L ALT 37 (21-72) U/L Alkaline Phosphatase 79 (38-126) U/L Total Protein 7.4 (6.3-8.2) g/dL Albumin 4.4 (3.5-5.0) g/dL Current Medications Generic Name Dose Route Start Last Admin Trade Name Freq PRN Reason Stop Dose Admin Albuterol Sulfate 2.5 mg 04/03/19 08:00 04/03/19 07:16 Ventolin Nebulized INHALATION Not Given RT-QID [facility] Furosemide 80 mg 04/02/19 20:30 04/03/19 05:15 Lasix IV 80 mg Q8H [facility] Administration Heparin Sodium (Porcine) 0 unit 04/02/19 20:31 Heparin IV PER PROTOCOL PRN Low PTT Protocol Heparin Sodium/Sodium Chloride 250 mls @ 18.86 mls/hr 04/02/19 20:45 04/03/19 04:49 25,000 unit/ Sodium Chloride IV 15 units/kg/hr .[id number] [facility] 15.717 mls/hr Titration Protocol 18 UNITS/KG/HR Insulin Aspart 0 unit 04/02/19 21:15 04/03/19 06:29 Novolog SQ 9 unit ACHS [facility] Administration Protocol Methylprednisolone Sodium Succinate 60 mg 04/03/19 00:00 04/03/19 05:15 Solu-Medrol IV 60 mg Q6HR [facility]ALL Administration Intake and Output 04/02/19 04/03/19 04/03/19 22:59 06:59 14:59 Intake Total 127.305 240 Output Total 284 947 4163 Balance -250 722.626 -351 Intake: Intake, IV Titration 127.305 Amount Heparin Sod,Pork in 0.45% 127.305 NaCl 25,000 unit In 0.45 % NaCl 1 250ml.bag @ 18 UNITS/KG/HR 18.86 mls/hr IV .[id number] [facility] Rx#: [id number] Oral 240 Output: Urine 779 195 1339 Other: Voiding Method Urinal # Voids 1 1 Weight 104.78 kg 108.5 kg 04/03/19 05:23 04/02/19 18:27 EKG Interpretations (text) EKG shows atrial fibrillation with a controlled ventricular response, incomplete left bundle branch block pattern and occasional PVC. Assessment and Plan Plan: Assessment and plan #1 symptoms of shortness of breath with associated bilateral lower extremity and abdominal swelling. Elevated BNP level at 1390, chest x-ray shows interstitial phase pulmonary edema. Clinical picture suggestive of congestive cardiac failure exacerbation and acute on chronic #2 paroxysmal atrial fibrillation, not on anticoagulation #3 history of renal cancer status post nephrectomy #4 hypertension #5 hyperlipidemia #6 diabetes #7 coronary artery disease with prior bypass surgery #8 COPD #9 sleep apnea #10 history of splenectomy #11 anemia requiring blood and iron transfusions #12 acute on chronic renal insufficiency #13 hyperkalemia Plan We will obtain an echocardiogram with Doppler study. Discontinue IV Lasix. We will also resume the patient's beta toyin, hold YUNIEL inhibitor at this time because of abnormal renal function and elevated potassium. Initiate a baby aspirin. Continue to monitor intake and output along with daily weights and daily lytes BUN and creatinine. Further recommendations to follow. DNP note has been reviewed, I agree with a documented findings and plan of care. Patient was seen and examined.
[2019-04-03] MEDS: ASPIRIN 81 MG PO SCH (09:31)
[2019-04-03 10:30] LABS: D-Dimer 0.94 mg/L FEU (<0.60)
[2019-04-03 10:39] LABS: Partial Thromboplastin Time 108.5 sec (22.0-30.0)
--- NOTE | 2019-04-03 11:01 | ECHOF ---
Referral Reason:chf MEASUREMENTS -------- HEIGHT: 175.3 cm WEIGHT: 108.4 kg BP: IVSd: 0.7 cm (0.6 - 1.1) LVIDd: 5.9 cm (3.9 - 5.3) LVPWd: 1.2 cm (0.6 - 1.1) IVSs: 1.4 cm LVIDs: 3.9 cm LVPWs: 1.6 cm LAESV Index (A-L): 30.99 ml/m Ao Diam: 3.9 cm (2.0 - 3.7) AV Cusp: 1.6 cm (1.5 - 2.6) LA Diam: 3.7 cm (2.7 - 3.8) MV EXCURSION: 12.581 mm (> 18.000) MV EF SLOPE: 61 mm/s (70 - 150) EPSS: 1.5 cm MV E Osito: 1.82 m/s MV DecT: 245 ms MV A Osito: 1.01 m/s MV E/A Ratio: 1.81 AV maxP.15 mmHg AV meanP.52 mmHg AR PHT: 156 ms RAP: 5.00 mmHg RVSP: 34.59 mmHg TAPSE: 15.62 mm FINDINGS -------- Sinus rhythm. This was a technically difficult study with suboptimal views. The left ventricular size is normal. There is borderline concentric left ventricular hypertrophy. Overall left ventricular systolic function is mildly impaired with, an EF between 45 - 50 %. Apica l lateral LV wall motion is hypokinetic. Apical septum LV wall motion is hypokinetic. The right ventricle is normal in size. The right ventricular systolic function is moderately impair ed. LA is midly dilated 29-33ml/m2. The right atrial size is normal. Lumason used The aortic valve is trileaflet and appears structurally normal. Trace amount of aortic regurgitatio n. Peak/mean gradient across the Aortic Valve is 20.15mmHg / 13.52mmHg. The mitral valve is normal. The mitral valve leaflets are mildly thickened. Mild mitral annular c alcification present. [id number] mitral regurgitation is present. The tricuspid valve appears structurally normal. Mild tricuspid regurgitation present. Right vent ricular systolic pressure is normal at < 35 mmHg. There is no pulmonic regurgitation present. The aortic root size is normal. IVC Not well visulized. There is no pericardial effusion. CONCLUSIONS -------- 1. Sinus rhythm. 2. This was a technically difficult study with suboptimal views. 3. The left ventricular size is normal. 4. There is borderline concentric left ventricular hypertrophy. 5. Overall left ventricular systolic function is mildly impaired with, an EF between 45 - 50 %. 6. Apical lateral LV wall motion is hypokinetic. 7. Apical septum LV wall motion is hypokinetic. 8. The right ventricle is normal in size. 9. The right ventricular systolic function is moderately impaired. 10. LA is midly dilated 29-33ml/m2. 11. The right atrial size is normal. 12. Lumason used 13. The aortic valve is trileaflet and appears structurally normal. 14. Trace amount of aortic regurgitation. 15. Peak/mean gradient across the Aortic Valve is 20.15mmHg / 13.52mmHg. 16. Possible mild aortic stenosis. Can not see valve but does have a gradient. 17. The mitral valve is normal. 18. The mitral valve leaflets are mildly thickened. 19. Mild mitral annular calcification present. 20. [id number]-[id number] mitral regurgitation is present. 21. The tricuspid valve appears structurally normal. 22. Mild tricuspid regurgitation present. 23. Right ventricular systolic pressure is normal at < 35 mmHg. 24. There is no pulmonic regurgitation present. 25. The aortic root size is normal. 26. IVC Not well visulized. 27. There is no pericardial effusion. [employer]: Aline Agosto RDCS
[2019-04-03 11:39] LABS: Calcium 9.5 mg/dL (8.4-10.2); Magnesium 2.1 mg/dL (1.6-2.3); Potassium 5.4 mmol/L (3.5-5.1)
[2019-04-03 12:06] LABS: Glucose,Whole Blood 443 mg/dL (75-99)
[2019-04-03] MEDS ORDERED: INSULIN ASPART (NovoLOG) 100 UNIT/ML VIAL SQ ONE (12:10)
[2019-04-03] MEDS ORDERED: IPRATROPIUM-ALBUTEROL 3 ML NEB INHALATION PRN ×2 (12:28→12:32)
[2019-04-03] MEDS ORDERED: INSULIN ASPART (NovoLOG) 100 UNIT/ML VIAL SQ SCH (12:30)
[2019-04-03] MEDS: HEPARIN SOD,PORK IN 0.45% NACL 25,000 UNIT in 0.45% NACL 1 250ML.BAG IV SCH ×2 (12:32→23:08)
--- NOTE | 2019-04-03 13:17 | P.CNPUL ---
History of Present Illness Consult date: 04/03/19 Reason for consult: dyspnea, cough, abnormal CXR/CT Chief complaint: Shortness of breath, weakness, increased lower extremity swelling History of present illness: This is a 83-year-old white male patient of Dr. Quesada with past medical history of severe COPD on home oxygen, obstructive sleep apnea intolerant to CPAP, coronary artery disease with previous bypass grafting 15 years ago, chronic systolic congestive heart failure with the EF of 45%, diabetes mellitus, GERD/reflux, previous episode of myocardial infarction, previous episode of pneumonia, chronic kidney disease, history of renal cancer with partial neph rectomy, acute respiratory failure following his nephrectomy surgery requiring tracheostomy with subsequent decannulation. The patient and his daughter also reported history of pancreatic resection of the distal portion of pancreas and splenectomy for history of pancreatic cancer. He also has history of peripheral vascular disease, status post right foot second toe amputation in January 2019 for wet gangrene and osteomyelitis. On 04/02/2019 patient presented to the emergency department via EMS for evaluation of increasing shortness of breath, weakness, and apparently patient had to lower himself to the ground twice and crawl to the telephone because he could not get up off the floor. His and his daughter were at a doctor's appointment, and there was nobody around to assist him. His daughter reports that patient is on maintenance dose of Lasix twice daily, 40 mg in the morning 40 mg at night however he had been cut back to once daily, and they've been noticing increasing swelling in his lower extremities. Patient denies any weight gain as he is also been trying to diet, does admit that his lower extremities are more edematous, there slightly erythematous but not warm to touch. There are healing scabbed areas on the right lower [place] area, no drainage. Denies any fever or chills, yesterday he had some cough, and he was bringing up some foamy material. Did have some chest discomfort on admission that felt like heartburn. Chest x-ray showed interstitial pulmonary edema. CT chest abdomen and pelvis showed no definite acute process, this was done without contrast. EKG showed A. fib, with nonspecific T-wave abnormality, and incomplete left bundle branch block. Blood work showed a white blood cell count of 12.8, hemoglobin of 10.4, d-dimer is 0.94, sodium was 132, potassium is 5.2, chloride was 97, CO2 is 22, BUN is 39, creatinine is 1.57, lactic acid is -0.8, LFTs were negative, troponin is negative, proBNP is 1390. Patient was started on IV Lasix, he is diuresing, and his breathing has significantly improved since admission Review of Systems All systems: negative Constitutional: Reports weakness, Denies chills, Denies fever Eyes: denies blurred vision, denies pain Ears, nose, mouth and throat: Denies headache, Denies sore throat Cardiovascular: Reports chest pain, Reports decreased exercise tolerance, Re ports dyspnea on exertion, Reports leg edema, Reports lightheadedness, Denies shortness of breath Respiratory: Reports cough with sputum, Reports dyspnea, Reports home oxygen, Reports respiratory infections, Denies cough Gastrointestinal: Denies abdominal pain, Denies diarrhea, Denies nausea, Denies vomiting Musculoskeletal: Denies myalgias Musculoskeletal: bilateral: ankle swelling Integumentary: Reports foot/leg ulcers, Denies pruritus, Denies rash Neurological: Reports ataxia, Reports balance difficulties, Reports gait dysfunction, Denies numbness, Denies weakness Psychiatric: Denies anxiety, Denies depression Endocrine: Denies fatigue, Denies weight change Past Medical History Past Medical History: Atrial Fibrillation, Coronary Artery Disease (CAD), Cancer, Heart Failure, COPD, CVA/TIA, Diabetes Mellitus, Eye Disorder, GERD/Reflux, GI Bleed, Hyperlipidemia, Hypertension, Myocardial Infarction (CT), Osteoarthritis (OA), Pneumonia, Renal Disease, Skin Disorder, Sleep Apnea/CPAP/BIPAP, Vascular Disorder Additional Past Medical History / Comment(s): Pt recently admitted to [facility] on 01/15/19 with osteomylitis, CAP, mild exacerbation CHF, tracheopurulent bronchitis, hypoxic respiratory failure, paroxysmal Afib, moderate mitral and tricuspid regurg and severe pulmonary HTN. Other hx: Anemia, blood and iron transfusions, right leg cellulitis, IDDM type II, neuropathy bilateral hands/feet, chronic diabetic wounds, 2013 L renal cancer with surgery - partial nephrectomy/spleenectomy/distal portion of pancreas removed at [facility], TIA, CT unknown date, BPH, gastritis, small hiatal hernia, past discitis T9-T10, arthritis bilateral hands/back, TARIQ - does not tolerate his CPAP, CKD stage III/hyperkalemia, UTI, sepsis, PVD. Last Myocardial Infarction Date:: UNKNOWN History of Any Multi-Drug Resistant Organisms: MRSA Date of last positivie culture/infection: 01/17/19 MDRO Source:: RIGHT TOE Past Surgical History: Coronary Bypass/CABG, Heart Catheterization, Orthopedic Surgery Additional Past Surgical History / Comment(s): Partial L nephrectomy, distal pancreatectomy, splenectomy - at [facility], 2000 CABG - 3 vessel, EGD, colonoscopy, deviated septum surgery, skin/oral lesion removals, R carpal tunnel release, bilateral cataract removal, bilateral laser eye surgery for "leakage", Past Anesthesia/Blood Transfusion Reactions: Previous Problems w/ Anesthesia Additional Past Anesthesia/Blood Transfusion Reaction / Comment(s): 'TROUBLE COMING OUT OF ANESTHESIA' - DELUSIONAL. Patient has received blood in past without reaction. Past Psychological History: Anxiety, Depression Additional Psychological History / Comment(s): Pt resides with his spouse. He has a cane and a walker and a glucometer. He no longer drives, his spouse drives and manages his medications. 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 Smoking Status: Never smoker Past Alcohol Use History: Occasional Additional Past Alcohol Use History / Comment(s): Patient states he smoked briefly [phone] and it was only socially. No marijuana or illicit drug use. No alcohol use. Past Drug Use History: None Reported - Past Family History Father Family Medical History: Myocardial Infarction (CT) Additional Family Medical History / Comment(s): Father of a CT at the age of 65yrs. Mother Family Medical History: COPD Medications and Allergies Home Medications Medication Instructions Recorded Confirmed Type Montelukast [Singulair] 10 mg PO HS 12/21/14 04/02/19 History Pravastatin Sodium 40 mg PO HS 02/07/16 04/02/19 History Acetaminophen Tab [Tylenol] 1,000 mg PO BID 03/17/17 04/02/19 History Pantoprazole [Protonix] 40 mg PO DAILY #30 tab 03/21/17 04/02/19 Rx Insulin Aspart [NovoLOG Flexpen] See Protocol SQ AC-TID PRN 11/12/17 04/02/19 History Budesonide-Formot 160-4.5 Mcg 2 puff INHALATION RT-BID 11/13/17 04/02/19 History [Symbicort 160-4.5 Mcg Inhaler] Lisinopril [Zestril] 5 mg PO DAILY 01/26/18 04/02/19 History Escitalopram Oxalate [Lexapro] 10 mg PO HS 04/19/18 04/02/19 History Cyanocobalamin (Vitamin B-12) 1,000 mcg PO TUFR 01/15/19 04/02/19 History [Vitamin B-12] Fluticasone Nasal [place] [Flonase 2 spray EA NOSTRIL DAILY #1 bottle 01/22/19 04/02/19 Rx Nasal [place]] Furosemide [Lasix] 40 mg PO BID #60 tab 01/22/19 04/02/19 Rx Insulin Aspart [NovoLOG Flexpen] 17 units SQ TID-W/MEALS #0 01/22/19 04/02/19 Rx Insulin Detemir [Levemir Flextouch] 60 units SQ HS 02/10/19 04/02/19 History Magnesium Oxide [Mag-Ox] 400 mg PO HS 02/10/19 04/02/19 History Metoprolol Tartrate [Lopressor] 12.5 mg PO BID 02/10/19 04/02/19 History Sulfamethox-Tmp 400-80Mg [Bactrim 1 tab PO Q12HR #20 tablet 02/14/19 04/02/19 Rx SS 400-80 mg] amLODIPine [Norvasc] 10 mg PO HS 04/02/19 04/02/19 History Ipratropium-Albuterol Nebulize 3 ml INHALATION RT-QID PRN 04/03/19 04/02/19 History [Duoneb 0.5 mg-3 mg/3 ml Soln] Allergies Allergy/AdvReac Type Severity Reaction Status Date / Time Penicillins Allergy Unknown Rash/Hives Verified 04/02/19 19:57 atorvastatin calcium Allergy Unknown Verified 04/02/19 19:57 [From Lipitor] clonazepam [From Klonopin] Allergy Hallucinati Verified 04/02/19 19:57 ons codeine Allergy Hallucinati Verified 04/02/19 19:57 ons haloperidol [From Haldol] Allergy Hallucinati Verified 04/02/19 19:57 ons haloperidol lactate Allergy Hallucinati Verified 04/02/19 19:57 [From Haldol] ons hydromorphone HCl Allergy Hallucinati Verified 04/02/19 19:57 [From Dilaudid] ons methylphenidate HCl Allergy Hallucinati Verified 04/02/19 19:57 [From Ritalin] ons morphine Allergy Hallucinati Verified 04/02/19 19:57 ons propofol Allergy Hallucinati Verified 04/02/19 19:57 ons quetiapine fumarate Allergy Hallucinati Verified 04/02/19 19:57 [From Seroquel] ons Sulfa (Sulfonamide Allergy Unknown Verified 04/02/19 19:57 Antibiotics) vancomycin Allergy Unknown Verified 04/02/19 19:57 ativan AdvReac Unknown Uncoded 04/02/19 18:18 Physical Exam Vitals: Vital Signs Temp Pulse Pulse Resp BP BP Pulse Ox 04/03/19 11:33 80 04/03/19 11:24 84 04/03/19 08:30 97.4 F L 74 20 134/69 99 04/03/19 03:29 73 19 04/03/19 03:11 97.9 F 73 19 127/88 93 L 04/03/19 00:00 97.7 F 66 18 146/74 98 04/02/19 21:06 66 22 135/56 94 L 04/02/19 20:53 97.8 F 66 19 147/64 93 L 04/02/19 20:48 64 04/02/19 20:38 66 04/02/19 18:15 98.2 F 89 0 L 127/52 95 Intake and Output 04/02/19 04/03/19 04/03/19 22:59 06:59 14:59 Intake Total 127.305 360.832 Output Total 713 681 4299 Balance -250 -722.695 -1039.168 Intake: Intake, IV Titration 127.305 120.832 Amount Heparin Sod,Pork in 0.45% 127.305 120.832 NaCl 25,000 unit In 0.45 % NaCl 1 250ml.bag @ 18 UNITS/KG/HR 18.86 mls/hr IV .[id number] [facility] Rx#: [id number] Oral 240 Output: Urine [id number] Other: Voiding Method Urinal # Voids 1 1 Weight 104.78 kg 108.5 kg GENERAL EXAM: Alert, very pleasant, 83-year-old white male patient on 4 L of oxygen with a pulse ox of 99%, comfortable in no apparent distress. HEAD: Normocephalic/atraumatic. EYES: Normal reaction of pupils, equal size. Conjunctiva pink, sclera white. NOSE: Clear with pink turbinates. THROAT: No erythema or exudates. NECK: No masses, no JVD, no thyroid enlargement, no adenopathy. CHEST: No chest wall deformity. Symmetrical expansion. LUNGS: Equal air entry with diffuse crackles, but no wheezes, rhonchi or dullness. CVS: Regular rate and rhythm, normal S1 and S2, no gallops, no murmurs, no rubs ABDOMEN: Soft, nontender. No hepatosplenomegaly, normal bowel sounds, no guarding or rigidity. EXTREMITIES: No clubbing, mild to moderate bilateral lower extremity edema, no cyanosis, 2+ pulses and upper and lower extremities. MUSCULOSKELETAL: Muscle strength and tone normal. SPINE: No scoliosis or deformity SKIN: No rashes CENTRAL NERVOUS SYSTEM: Alert and oriented -3. No focal deficits, tone is normal in all 4 extremities. PSYCHIATRIC: Alert and oriented -3. Appropriate affect. Intact judgment and insight. Results - Laboratory Findings CBC and BMP: 04/03/19 05:23 04/03/19 09:17 PT/INR, D-dimer PT 13.0 sec (9.0-12.0) H 04/03/19 05:23 INR 1.3 (<1.2) H 04/03/19 05:23 D-Dimer 0.94 mg/L FEU (<0.60) H 04/03/19 09:17 Abnormal lab findings: Abnormal Labs 04/02/19 04/02/19 04/02/19 18:27 18:27 18:27 WBC 12.8 H RBC 3.99 L Hgb 10.4 L Hct 33.7 L MCHC 30.8 L RDW 19.3 H Neutrophils # 10.1 H Lymphocytes # PT INR APTT D-Dimer Sodium 132 L Potassium 5.2 H Chloride 97 L BUN 39 H Creatinine 1.57 H Glucose 293 H POC Glucose (mg/dL) Plasma Lactic Acid Dean 2.9 H* Creatine Kinase 426 H 04/02/19 04/03/19 04/03/19 22:08 02:46 05:23 WBC 12.8 H RBC 3.99 L Hgb 10.6 L Hct 34.1 L MCHC RDW 18.8 H Neutrophils # 12.1 H Lymphocytes # 0.4 L PT INR APTT 185.3 H* D-Dimer Sodium Potassium Chloride BUN Creatinine Glucose POC Glucose (mg/dL) 298 H Plasma Lactic Acid Dean Creatine Kinase 04/03/19 04/03/19 04/03/19 05:23 06:24 09:17 WBC RBC Hgb Hct MCHC RDW Neutrophils # Lymphocytes # PT 13.0 H INR 1.3 H APTT 108.5 H* D-Dimer 0.94 H Sodium Potassium Chloride BUN Creatinine Glucose POC Glucose (mg/dL) 332 H Plasma Lactic Acid Dean Creatine Kinase 04/03/19 04/03/19 09:17 11:58 WBC RBC Hgb Hct MCHC RDW Neutrophils # Lymphocytes # PT INR APTT D-Dimer Sodium 134 L Potassium 5.4 H Chloride 95 L BUN 39 H Creatinine 1.54 H Glucose 488 H POC Glucose (mg/dL) 443 H Plasma Lactic Acid Dean Creatine Kinase - Diagnostic Findings Chest x-ray: report reviewed, image reviewed CT scan - chest: report reviewed, image reviewed Additional studies: Echocardiogram reviewed Assessment and Plan Plan: Assessment: #1. Acute exacerbation of chronic congestive heart failure with systolic dysfunction #2. Paroxysmal atrial fibrillation not on any anticoagulation #3. Chronic kidney disease #4. History of renal cancer status post partial nephrectomy #5. History of pancreatic cancer status post surgical resection of the distal portion of the pancreas and splenectomy #6. Hypertension #7. Hyperlipidemia #8. Diabetes mellitus #9. Coronary artery disease with prior bypass surgery #10. Advanced COPD, on home oxygen #11. Chronic anemia #12. Mild hyperkalemia #13. Peripheral vascular disease #14. Recent history of right second toe osteomyelitis and with gangrene status post amputation #15. Steroid-induced hyperglycemia Plan: Patient has been diuresed, he is feeling better on today's exam, lower extremity edema is improving, echocardiogram results have been noted, chest x-ray has been reviewed and the findings are consistent with interstitial pulmonary edema. No fever or chills, vital signs are stable, cardiology is following. We will continue breathing treatments, no significant wheezing, we can switch the IV steroids to oral prednisone. I performed a history & physical examination of the patient and discussed their management with my nurse practitioner, Juanita Miller. I reviewed the nurse practitioner's note and agree with the documented findings and plan of care. Lung sounds are positive for scattered crackles. The findings and the impression was discussed with the patient. I attest to the documentation by the nurse practitioner. Time with Patient: Greater than 30
[2019-04-03] MEDS: PANTOPRAZOLE 40 MG TABLET PO SCH (13:28)
[2019-04-03] MEDS: LISINOPRIL 5 MG TAB PO SCH (13:29)
[2019-04-03] MEDS: INSULIN DETEMIR (LEVEMIR) 100 UNIT/ML SYR SQ SCH (13:29)
[2019-04-03 13:53] LABS: Hemoglobin A1C 7.5 % (4.0-6.0)
[2019-04-03 15:20] VITALS: BMI 35.3
[2019-04-03] MEDS: IPRATROPIUM-ALBUTEROL 3 ML NEB INHALATION SCH ×3 (16:33→20:02)
[2019-04-03 16:42] LABS: Glucose,Whole Blood 371 mg/dL (75-99)
[2019-04-03] MEDS: SYMBICORT 160-4.5 MCG INHALER INHALATION SCH (20:02)
--- NOTE | 2019-04-03 20:03 | P.HPIM ---
History of Present Illness H&P Date: 04/03/19 Chief Complaint: Dyspnea, increasing weakness This is an 83-year-old gentleman with extensive medical history of atrial fibrillation, CAD, renal cancer, CHF, COPD, CVA/TIA, diabetes mellitus, hypertension, hyperlipidemia, CAD, IA, CABG, osteoarthritis deficient anemia, sleep apnea presented to the ER with complaints of increasing weakness, shortness of breath which required patient to lower himself down to the floor 2-states he did not fall, then crawled to the telephone to call for EMS. Creatinine kinase 426. Patient reports his Lasix had been decreased to daily and was experiencing increased edema bilateral lower extremities. BUN 39, creatinine 1.57 (baseline 1.2). Potassium 5.2 Denies fevers and chills. Reports productive cough, sputum color unknown. Afebrile, WBC 12.8 ,tachypneic on admission, requiring initially 2 L nasal cannula to maintain O2 sats of 93% in a patient who does not wear oxygen at home; now requiring 4 L.BP/HR stable. Hemoglobin on admission 10.4. Sodium 132, chloride 97. Lactic acid 0.8. Hyperglycemia on admission with blood sugar of 293. Abdominal CT reporting no definite acute process. Chest x-ray reported interstitial phase pulmonary edema bilaterally. EKG reported atrial fibrillation incomplete left bundle branch block, nonspecific T-wave. Troponin negative X 1, BNP 1390 Denies chest pain, palpitations. Reports exertional shortness of breath. Lasix IV push initiated along with heparin drip. D-dimer elevated, VQ scan ordered as per ER, pending. Review of Systems ROS Statement: Those systems with pertinent positive or pertinent negative responses have been documented in the HPI. ROS Other: All systems not noted in ROS Statement are negative. Past Medical History Past Medical History: Atrial Fibrillation, Coronary Artery Disease (CAD), Cancer, Heart Failure, COPD, CVA/TIA, Diabetes Mellitus, Eye Disorder, GERD/Reflux, GI Bleed, Hyperlipidemia, Hypertension, Myocardial Infarction (IA), Osteoarthritis (OA), Pneumonia, Renal Disease, Skin Disorder, Sleep Apnea/CPAP/BIPAP, Vascular Disorder Additional Past Medical History / Comment(s): Pt recently admitted to [facility] on 01/15/19 with osteomylitis, CAP, mild exacerbation CHF, tracheopurulent bronchitis, hypoxic respiratory failure, paroxysmal Afib, moderate mitral and tricuspid regurg and severe pulmonary HTN. Other hx: Anemia, blood and iron transfusions, right leg cellulitis, IDDM type II, neuropathy bilateral hands/feet, chronic diabetic wounds, 2013 L renal cancer with surgery - partial nephrectomy/spleenectomy/distal portion of pancreas removed at [facility], TIA, IA unknown date, BPH, gastritis, small hiatal hernia, past discitis T9-T10, arthritis bilateral hands/back, TARIQ - does not tolerate his CPAP, CKD stage III/hyperkalemia, UTI, sepsis, PVD. Last Myocardial Infarction Date:: UNKNOWN History of Any Multi-Drug Resistant Organisms: MRSA Date of last positivie culture/infection: 01/17/19 MDRO Source:: RIGHT TOE Past Surgical History: Coronary Bypass/CABG, Heart Catheterization, Orthopedic Surgery Additional Past Surgical History / Comment(s): Partial L nephrectomy, distal pancreatectomy, splenectomy - at [id number] CABG - 3 vessel, EGD, colonoscopy, deviated septum surgery, skin/oral lesion removals, R carpal tunnel release, bilateral cataract removal, bilateral laser eye surgery for "leakage", Past Anesthesia/Blood Transfusion Reactions: Previous Problems w/ Anesthesia Additional Past Anesthesia/Blood Transfusion Reaction / Comment(s): 'TROUBLE COMING OUT OF ANESTHESIA' - DELUSIONAL. Patient has received blood in past without reaction. Past Psychological History: Anxiety, Depression Additional Psychological History / Comment(s): Pt resides with his spouse. He has a cane and a walker and a glucometer. He no longer drives, his spouse drives and manages his medications. 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 Smoking Status: Never smoker Past Alcohol Use History: Occasional Additional Past Alcohol Use History / Comment(s): Patient states he smoked b [employer]ly [id number] and it was only socially. No marijuana or illicit drug use. No alcohol use. Past Drug Use History: None Reported - Past Family History Father Family Medical History: Myocardial Infarction (IA) Additional Family Medical History / Comment(s): Father of a IA at the age of 65yrs. Mother Family Medical History: COPD Medications and Allergies Home Medications Medication Instructions Recorded Confirmed Type Montelukast [Singulair] 10 mg PO HS 12/21/14 04/02/19 History Pravastatin Sodium 40 mg PO HS 02/07/16 04/02/19 History Acetaminophen Tab [Tylenol] 1,000 mg PO BID 03/17/17 04/02/19 History Pantoprazole [Protonix] 40 mg PO DAILY #30 tab 03/21/17 04/02/19 Rx Insulin Aspart [NovoLOG Flexpen] See Protocol SQ AC-TID PRN 11/12/17 04/02/19 History Budesonide-Formot 160-4.5 Mcg 2 puff INHALATION RT-BID 11/13/17 04/02/19 History [Symbicort 160-4.5 Mcg Inhaler] Lisinopril [Zestril] 5 mg PO DAILY 01/26/18 04/02/19 History Escitalopram Oxalate [Lexapro] 10 mg PO HS 04/19/18 04/02/19 History Cyanocobalamin (Vitamin B-12) 1,000 mcg PO TUFR 01/15/19 04/02/19 History [Vitamin B-12] Fluticasone Nasal [place] [Flonase 2 spray EA NOSTRIL DAILY #1 bottle 01/22/19 04/02/19 Rx Nasal [place]] Furosemide [Lasix] 40 mg PO BID #60 tab 01/22/19 04/02/19 Rx Insulin Aspart [NovoLOG Flexpen] 17 units SQ TID-W/MEALS #0 01/22/19 04/02/19 Rx Insulin Detemir [Levemir Flextouch] 60 units SQ HS 02/10/19 04/02/19 History Magnesium Oxide [Mag-Ox] 400 mg PO HS 02/10/19 04/02/19 History Metoprolol Tartrate [Lopressor] 12.5 mg PO BID 02/10/19 04/02/19 History Sulfamethox-Tmp 400-80Mg [Bactrim 1 tab PO Q12HR #20 tablet 02/14/19 04/02/19 Rx SS 400-80 mg] amLODIPine [Norvasc] 10 mg PO HS 04/02/19 04/02/19 History Ipratropium-Albuterol Nebulize 3 ml INHALATION RT-QID PRN 04/03/19 04/02/19 History [Duoneb 0.5 mg-3 mg/3 ml Soln] Allergies Allergy/AdvReac Type Severity Reaction Status Date / Time Penicillins Allergy Unknown Rash/Hives Verified 04/02/19 19:57 atorvastatin calcium Allergy Unknown Verified 04/02/19 19:57 [From Lipitor] clonazepam [From Klonopin] Allergy Hallucinati Verified 04/02/19 19:57 ons codeine Allergy Hallucinati Verified 04/02/19 19:57 ons haloperidol [From Haldol] Allergy Hallucinati Verified 04/02/19 19:57 ons haloperidol lactate Allergy Hallucinati Verified 04/02/19 19:57 [From Haldol] ons hydromorphone HCl Allergy Hallucinati Verified 04/02/19 19:57 [From Dilaudid] ons methylphenidate HCl Allergy Hallucinati Verified 04/02/19 19:57 [From Ritalin] ons morphine Allergy Hallucinati Verified 04/02/19 19:57 ons propofol Allergy Hallucinati Verified 04/02/19 19:57 ons quetiapine fumarate Allergy Hallucinati Verified 04/02/19 19:57 [From Seroquel] ons Sulfa (Sulfonamide Allergy Unknown Verified 04/02/19 19:57 Antibiotics) vancomycin Allergy Unknown Verified 04/02/19 19:57 ativan AdvReac Unknown Uncoded 04/02/19 18:18 Physical Exam Vitals: Vital Signs Temp Pulse Pulse Resp BP BP Pulse Ox 04/03/19 11:33 80 04/03/19 11:24 84 04/03/19 08:30 97.4 F L 74 20 134/69 99 04/03/19 03:29 73 19 04/03/19 03:11 97.9 F 73 19 127/88 93 L 04/03/19 00:00 97.7 F 66 18 146/74 98 04/02/19 21:06 66 22 135/56 94 L 04/02/19 20:53 97.8 F 66 19 147/64 93 L 04/02/19 20:48 64 04/02/19 20:38 66 04/02/19 18:15 98.2 F 89 0 L 127/52 95 Intake and Output 04/03/19 04/03/19 04/03/19 06:59 14:59 22:59 Intake Total 127.305 840.832 Output Total 850 1400 Balance -722.695 -559.168 Intake: Intake, IV Titration 127.305 120.832 Amount Heparin Sod,Pork in 0.45% 127.305 120.832 NaCl 25,000 unit In 0.45 % NaCl 1 250ml.bag @ 18 UNITS/KG/HR 18.86 mls/hr IV .[id number] [facility] Rx#: [id number] Oral 720 Output: Urine 850 1400 Other: Voiding Method Urinal # Voids 1 Weight 108.5 kg 108.5 kg VITAL SIGNS: As above GENERAL: Sitting up in chair, no acute distress HEENT: Conjunctivae normal. eyes normal. Oral mucosa moist NECK: Minimal JVD. No thyroid enlargement. No LNs CARDIOVASCULAR: S1, S2 regular. Systolic murmur RESPIRATION: Breath sounds diminished in the bases. No rhonchi, diffuse bibasilar crackles, no wheezes ABDOMEN: Obese, Soft, mildly distended, nontender . No guarding. no masses palpable. No ascites, No hepatosplenomegaly.Positive bowel sounds. LEGS: Bilateral lower extremity edema with cellulitis, reddened ,erythema,right lower leg with multiple scabbed areas, no drainage PSYCHIATRY: Alert and oriented X3, mood and affect normal. NERVOUS SYSTEM: Cranial N 2-12 grossly normal. Moves all 4 limbs. Diffuse weakness ,No focal deficits. Strength and sensation grossly intact.. Lymphatic system. No LN neck axilla or groin. Results CBC & Chem 7: 04/03/19 05:23 04/03/19 09:17 Labs: Abnormal Lab Results - Last 24 Hours (Table) 04/02/19 04/02/19 04/02/19 Range/Units 18:27 18:27 18:27 WBC 12.8 H (3.8-10.6) k/uL RBC 3.99 L (4.30-5.90) m/uL Hgb 10.4 L (13.0-17.5) gm/dL Hct 33.7 L (39.0-53.0) % MCHC 30.8 L (31.0-37.0) g/dL RDW 19.3 H (11.5-15.5) % Neutrophils # 10.1 H (1.3-7.7) k/uL Lymphocytes # (1.0-4.8) k/uL PT (9.0-12.0) sec INR (<1.2) APTT (22.0-30.0) sec D-Dimer (<0.60) mg/L FEU Sodium 132 L (137-145) mmol/L Potassium 5.2 H (3.5-5.1) mmol/L Chloride 97 L (98-107) mmol/L BUN 39 H (9-20) mg/dL Creatinine 1.57 H (0.66-1.25) mg/dL Glucose 293 H (74-99) mg/dL POC Glucose (mg/dL) (75-99) mg/dL Hemoglobin A1c (4.0-6.0) % Plasma Lactic Acid Dean 2.9 H* (0.7-2.0) mmol/L Creatine Kinase 426 H (55-170) U/L 04/02/19 04/03/19 04/03/19 Range/Units 22:08 02:46 05:19 WBC (3.8-10.6) k/uL RBC (4.30-5.90) m/uL Hgb (13.0-17.5) gm/dL Hct (39.0-53.0) % MCHC (31.0-37.0) g/dL RDW (11.5-15.5) % Neutrophils # (1.3-7.7) k/uL Lymphocytes # (1.0-4.8) k/uL PT (9.0-12.0) sec INR (<1.2) APTT 185.3 H* (22.0-30.0) sec D-Dimer (<0.60) mg/L FEU Sodium (137-145) mmol/L Potassium (3.5-5.1) mmol/L Chloride (98-107) mmol/L BUN (9-20) mg/dL Creatinine (0.66-1.25) mg/dL Glucose (74-99) mg/dL POC Glucose (mg/dL) 298 H (75-99) mg/dL Hemoglobin A1c 7.5 H (4.0-6.0) % Plasma Lactic Acid Dean (0.7-2.0) mmol/L Creatine Kinase (55-170) U/L 04/03/19 04/03/19 04/03/19 Range/Units 05:23 05:23 06:24 WBC 12.8 H (3.8-10.6) k/uL RBC 3.99 L (4.30-5.90) m/uL Hgb 10.6 L (13.0-17.5) gm/dL Hct 34.1 L (39.0-53.0) % MCHC (31.0-37.0) g/dL RDW 18.8 H (11.5-15.5) % Neutrophils # 12.1 H (1.3-7.7) k/uL Lymphocytes # 0.4 L (1.0-4.8) k/uL PT 13.0 H (9.0-12.0) sec INR 1.3 H (<1.2) APTT (22.0-30.0) sec D-Dimer (<0.60) mg/L FEU Sodium (137-145) mmol/L Potassium (3.5-5.1) mmol/L Chloride (98-107) mmol/L BUN (9-20) mg/dL Creatinine (0.66-1.25) mg/dL Glucose (74-99) mg/dL POC Glucose (mg/dL) 332 H (75-99) mg/dL Hemoglobin A1c (4.0-6.0) % Plasma Lactic Acid Dean (0.7-2.0) mmol/L Creatine Kinase (55-170) U/L 04/03/19 04/03/19 04/03/19 Range/Units 09:17 09:17 11:58 WBC (3.8-10.6) k/uL RBC (4.30-5.90) m/uL Hgb (13.0-17.5) gm/dL Hct (39.0-53.0) % MCHC (31.0-37.0) g/dL RDW (11.5-15.5) % Neutrophils # (1.3-7.7) k/uL Lymphocytes # (1.0-4.8) k/uL PT (9.0-12.0) sec INR (<1.2) APTT 108.5 H* (22.0-30.0) sec D-Dimer 0.94 H (<0.60) mg/L FEU Sodium 134 L (137-145) mmol/L Potassium 5.4 H (3.5-5.1) mmol/L Chloride 95 L (98-107) mmol/L BUN 39 H (9-20) mg/dL Creatinine 1.54 H (0.66-1.25) mg/dL Glucose 488 H (74-99) mg/dL POC Glucose (mg/dL) 443 H (75-99) mg/dL Hemoglobin A1c (4.0-6.0) % Plasma Lactic Acid Dean (0.7-2.0) mmol/L Creatine Kinase (55-170) U/L Thrombosis Risk Factor Assmnt - Choose All That Apply Any of the Below Risk Factors Present?: Yes Each Factor Represents 1 point: Abnormal pulmonary function (COPD), Obesity (BMI >25) Each Risk Factor Represents 3 Points: Age 75 years or older Other congenital or acquired thrombophilia - If yes, enter type in comment: No Thrombosis Risk Factor Assessment Total Risk Factor Score: 5 Thrombosis Risk Factor Assessment Level: High Risk Assessment and Plan Assessment: Shortness of breath, secondary to acute acute on chronic systolic CHF, EF 45- 50%. -Leukocytosis secondary to the above -Hypoxic respiratory failure, secondary to CHF -COPD, patient states he does not wear oxygen at home. -Paroxysmal atrial fibrillation, not on long-term anticoagulation secondary to GI bleed November 2017 -Acute on chronic renal failure, stage III. Baseline 1.2. -Hyperkalemia secondary to the above -Chronic right hemidiaphragm elevation -Anemia, iron deficient secondary to chronic blood loss r/t small bowel arteriovenous malformation. 10.7 on prior admission. -Obstructive sleep apnea, unable to tolerate CPAP -Moderate mitral regurgitation -Moderate tricuspid regurgitation -Severe pulmonary hypertension -CAD, history of IA, CABG -Diabetes mellitus type 2, uncontrolled with hyperglycemia -History of renal cancer 2013 with partial nephrectomy, splenectomy and resection of distal portion of the pancreas -BPH -Hypertension -Hyperlipidemia -History of CVA,TIA -History of right second toe MRSA osteomyelitis. Plan: Continue current medication regime ,monitoring and symptomatic treatment. VQ pending.Echo ordered. Maintain heparin drip, Lasix IV push. Evaluated by cardiology with recommendations noted and appreciated. Silvadene to bilateral lower extremities. Nebulized bronchodilators-both scheduled and prn, LABA. PT/OT consulted Home meds have been reviewed and resumed. GI prophylaxis in place with Protonix. Close monitoring of renal function, electrolytes with repeat labs ordered for a.m. PT/OT consulted. The impression and plan of care has been dictated as directed. : I performed a history and examination of this patient, discussed the same with the dictator. I agree with the dictator's note ,documented as a scribe. Any additional findings or plans will be noted.
[2019-04-03 20:23] LABS: Glucose,Whole Blood 321 mg/dL (75-99)
[2019-04-03] MEDS: MAGNESIUM OXIDE 400 MG TAB PO SCH (20:59)
[2019-04-03] MEDS: ESCITALOPRAM 10 MG TAB PO SCH (20:59)
[2019-04-03] MEDS: amLODIPine 10 MG TAB PO SCH (21:00)
[2019-04-03] MEDS: METOPROLOL TARTRATE 12.5 MG TAB PO SCH (21:00)
[2019-04-03] MEDS ORDERED: INSULIN DETEMIR (LEVEMIR) 100 UNIT/ML SYR SQ SCH (21:00)
[2019-04-03] MEDS: MONTELUKAST 10 MG TAB PO SCH (21:01)
[2019-04-03] MEDS: PRAVASTATIN SODIUM 40 MG TAB PO SCH (21:01)
[2019-04-03 21:53] LABS: Glucose,Whole Blood 310 mg/dL (75-99)
[2019-04-04] MEDS: FUROSEMIDE 10 MG/ML 4 ML VIAL IV SCH ×3 (04:00→20:55)
[2019-04-04] MEDS: PANTOPRAZOLE 40 MG TABLET PO SCH (06:29)
[2019-04-04] MEDS: HEPARIN SOD,PORK IN 0.45% NACL 25,000 UNIT in 0.45% NACL 1 250ML.BAG IV SCH (06:32)
[2019-04-04 06:37] LABS: INR 1.1 (<1.2); Partial Thromboplastin Time 43.9 sec (22.0-30.0); Prothrombin Time 11.8 sec (9.0-12.0)
[2019-04-04 06:42] LABS: Calcium 9.6 mg/dL (8.4-10.2); Potassium 4.9 mmol/L (3.5-5.1)
[2019-04-04 06:49] LABS: Anisocytosis Slight; Basophils # (A) 0.1 k/uL (0-0.2); Basophils % (A) 0 %; Eosinophils % (A) 0 %; HCT 33.4 % (39.0-53.0); HGB 10.4 gm/dL (13.0-17.5); Hypochromasia Moderate; Lymphocytes # (A) 0.5 k/uL (1.0-4.8); Lymphocytes % (A) 3 %; MCH 26.6 pg (25.0-35.0); MCHC 31.1 g/dL (31.0-37.0); MCV 85.4 fL (80.0-100.0); Mean Platelet Volume 6.9; Monocytes # (A) 0.8 k/uL (0-1.0); Monocytes % (A) 4 %; Neutrophils # (A) 16.7 k/uL (1.3-7.7); Neutrophils % (A) 92 %; Platelet Count 442 k/uL (150-450); RBC 3.91 m/uL (4.30-5.90); WBC 18.1 k/uL (3.8-10.6)
[2019-04-04 07:15] LABS: Glucose,Whole Blood 409 mg/dL (75-99)
[2019-04-04] MEDS: INSULIN ASPART (NovoLOG) 100 UNIT/ML VIAL SQ SCH ×6 (07:16→18:05)
[2019-04-04] MEDS: IPRATROPIUM-ALBUTEROL 3 ML NEB INHALATION SCH ×4 (09:04→20:44)
[2019-04-04] MEDS: SYMBICORT 160-4.5 MCG INHALER INHALATION SCH ×2 (09:04→20:44)
[2019-04-04] MEDS: predniSONE 20 MG TAB PO SCH (09:13)
[2019-04-04] MEDS: METOPROLOL TARTRATE 12.5 MG TAB PO SCH ×2 (09:15→20:51)
[2019-04-04] MEDS: ASPIRIN 81 MG PO SCH (09:16)
[2019-04-04] MEDS: LISINOPRIL 5 MG TAB PO SCH (09:16)
[2019-04-04] MEDS: FLUTICASONE 50MCG/SPRAY NASAL 16GM EA NOSTRIL SCH (09:17)
[2019-04-04] MEDS: INSULIN DETEMIR (LEVEMIR) 100 UNIT/ML SYR SQ SCH (10:18)
[2019-04-04 10:21] LABS: Glucose,Whole Blood 369 mg/dL (75-99)
--- NOTE | 2019-04-04 10:43 | P.PN ---
Subjective This is an 83-year-old gentleman with extensive medical history of atrial fibrillation, CAD, renal cancer, CHF, COPD, CVA/TIA, diabetes mellitus, hy pertension, hyperlipidemia, CAD, CA, CABG, osteoarthritis deficient anemia, sleep apnea presented to the ER with complaints of increasing weakness, shortness of breath which required patient to lower himself down to the floor 2-states he did not fall, then crawled to the telephone to call for EMS. Creatinine kinase 426. Patient reports his Lasix had been decreased to daily and was experiencing increased edema bilateral lower extremities. BUN 39, creatinine 1.57 (baseline 1.2). Potassium 5.2 Denies fevers and chills. Reports productive cough, sputum color unknown. Afebrile, WBC 12.8 ,tachypneic on admission, requiring initially 2 L nasal cannula to maintain O2 sats of 93% in a patient who does not wear oxygen at home; now requiring 4 L.BP/HR stable. Hemoglobin on admission 10.4. Sodium 132, chloride 97. Lactic acid 0.8. Hyperglycemia on admission with blood sugar of 293. Abdominal CT reporting no definite acute process. Chest x-ray reported interstitial phase pulmonary edema bilaterally. EKG reported atrial fibrillation incomplete left bundle branch block, nonspecific T-wave. Troponin negative X 1, BNP 1390 Denies chest pain, palpitations. Reports exertional shortness of breath. Lasix IV push initiated along with heparin drip. D-dimer elevated, VQ scan ordered as per ER, pending. 04/04/2019: Patient is feeling better after being diuresed. He's been seen by cardiology and pulmonology. 2-D echo shows ejection fraction of 45-50% with some hypokinesis noted. He is on his cardiac medications. He denies any chest pains, pressures or shortness breath at rest this morning. He does get shortness breath with exertion. Pulmonology had which and oral prednisone and continued his inhalers. Sugars remain elevated most likely due to prednisone. He remains on heparin. Physical therapy evaluated him and recommended home PT. Objective - Vital Signs Vital signs: Vital Signs Temp 97.5 F L 04/04/19 07:49 Pulse 75 04/04/19 09:23 Resp 18 04/04/19 09:23 BP 124/58 04/04/19 09:23 Pulse Ox 99 04/04/19 09:23 Intake & Output 04/03/19 04/04/19 04/04/19 18:59 06:59 18:59 Intake Total 1200.832 229.839 480 Output Total 2400 1025 400 Balance -1199.168 -795.161 80 Weight 108.5 kg 106.5 kg Intake: Intake, IV Titration 120.832 229.839 Amount Heparin Sod,Pork in 0.45% 120.832 229.839 NaCl 25,000 unit In 0.45 % NaCl 1 250ml.bag @ 18 UNITS/KG/HR 18.86 mls/hr IV .[id number] [facility] Rx#: [id number] Oral 1080 480 Output: Urine 2400 1025 400 Other: Voiding Method Urinal # Voids 1 - Exam GENERAL: Sitting up in chair, no acute distress NECK: Minimal JVD. No thyroid enlargement. No LNs CARDIOVASCULAR: S1, S2 regular. Systolic murmur RESPIRATION: Breath sounds diminished in the bases. No rhonchi, diffuse bibasilar crackles, no wheezes, improved from 1 day ago ABDOMEN: Obese, Soft, mildly distended, nontender . No guarding. no masses palpable. No ascites, No hepatosplenomegaly.Positive bowel sounds. LEGS: Bilateral lower extremity edema with cellulitis, reddened ,erythema,right lower leg with multiple scabbed areas, no drainage PSYCHIATRY: Alert and oriented X3, mood and affect normal. NERVOUS SYSTEM: Cranial N 2-12 grossly normal. Moves all 4 limbs. Diffuse weakness ,No focal deficits. Strength and sensation grossly intact.. Lymphatic system. No LN neck axilla or groin. - Labs CBC & Chem 7: 04/04/19 05:58 04/04/19 05:58 Labs: Abnormal Lab Results - Last 24 Hours (Table) 04/03/19 04/03/19 04/03/19 Range/Units 05:19 09:17 09:17 WBC (3.8-10.6) k/uL RBC (4.30-5.90) m/uL Hgb (13.0-17.5) gm/dL Hct (39.0-53.0) % RDW (11.5-15.5) % Neutrophils # (1.3-7.7) k/uL Lymphocytes # (1.0-4.8) k/uL APTT 108.5 H* (22.0-30.0) sec D-Dimer 0.94 H (<0.60) mg/L FEU Sodium 134 L (137-145) mmol/L Potassium 5.4 H (3.5-5.1) mmol/L Chloride 95 L (98-107) mmol/L BUN 39 H (9-20) mg/dL Creatinine 1.54 H (0.66-1.25) mg/dL Glucose 488 H (74-99) mg/dL POC Glucose (mg/dL) (75-99) mg/dL Hemoglobin A1c 7.5 H (4.0-6.0) % 04/03/19 04/03/19 04/03/19 Range/Units 11:58 16:39 18:49 WBC (3.8-10.6) k/uL RBC (4.30-5.90) m/uL Hgb (13.0-17.5) gm/dL Hct (39.0-53.0) % RDW (11.5-15.5) % Neutrophils # (1.3-7.7) k/uL Lymphocytes # (1.0-4.8) k/uL APTT 52.5 H (22.0-30.0) sec D-Dimer (<0.60) mg/L FEU Sodium (137-145) mmol/L Potassium (3.5-5.1) mmol/L Chloride (98-107) mmol/L BUN (9-20) mg/dL Creatinine (0.66-1.25) mg/dL Glucose (74-99) mg/dL POC Glucose (mg/dL) 443 H 371 H (75-99) mg/dL Hemoglobin A1c (4.0-6.0) % 04/03/19 04/03/19 04/04/19 Range/Units 20:20 21:51 05:58 WBC 18.1 H (3.8-10.6) k/uL RBC 3.91 L (4.30-5.90) m/uL Hgb 10.4 L (13.0-17.5) gm/dL Hct 33.4 L (39.0-53.0) % RDW 19.0 H (11.5-15.5) % Neutrophils # 16.7 H (1.3-7.7) k/uL Lymphocytes # 0.5 L (1.0-4.8) k/uL APTT (22.0-30.0) sec D-Dimer (<0.60) mg/L FEU Sodium (137-145) mmol/L Potassium (3.5-5.1) mmol/L Chloride (98-107) mmol/L BUN (9-20) mg/dL Creatinine (0.66-1.25) mg/dL Glucose (74-99) mg/dL POC Glucose (mg/dL) 321 H 310 H (75-99) mg/dL Hemoglobin A1c (4.0-6.0) % 04/04/19 04/04/19 04/04/19 Range/Units 05:58 05:58 07:12 WBC (3.8-10.6) k/uL RBC (4.30-5.90) m/uL Hgb (13.0-17.5) gm/dL Hct (39.0-53.0) % RDW (11.5-15.5) % Neutrophils # (1.3-7.7) k/uL Lymphocytes # (1.0-4.8) k/uL APTT 43.9 H (22.0-30.0) sec D-Dimer (<0.60) mg/L FEU Sodium 133 L (137-145) mmol/L Potassium (3.5-5.1) mmol/L Chloride 90 L (98-107) mmol/L BUN 48 H (9-20) mg/dL Creatinine 1.63 H (0.66-1.25) mg/dL Glucose 387 H (74-99) mg/dL POC Glucose (mg/dL) 409 H (75-99) mg/dL Hemoglobin A1c (4.0-6.0) % 04/04/19 Range/Units 10:18 WBC (3.8-10.6) k/uL RBC (4.30-5.90) m/uL Hgb (13.0-17.5) gm/dL Hct (39.0-53.0) % RDW (11.5-15.5) % Neutrophils # (1.3-7.7) k/uL Lymphocytes # (1.0-4.8) k/uL APTT (22.0-30.0) sec D-Dimer (<0.60) mg/L FEU Sodium (137-145) mmol/L Potassium (3.5-5.1) mmol/L Chloride (98-107) mmol/L BUN (9-20) mg/dL Creatinine (0.66-1.25) mg/dL Glucose (74-99) mg/dL POC Glucose (mg/dL) 369 H (75-99) mg/dL Hemoglobin A1c (4.0-6.0) % Assessment and Plan (1) Acute systolic (congestive) heart failure Current Visit: Yes Status: Acute Code(s): I50.21 - ACUTE SYSTOLIC (CONGESTIVE) HEART FAILURE SNOMED Code(s): 616050857 (2) Hypoxia Current Visit: Yes Status: Acute Code(s): R09.02 - HYPOXEMIA SNOMED Code(s): 803346247 (3) Acute exacerbation of chronic obstructive airways disease Current Visit: No Status: Acute Code(s): J44.1 - CHRONIC OBSTRUCTIVE PULMONARY DISEASE W (ACUTE) EXACERBATION SNOMED Code(s): 604372244 (4) Anemia Current Visit: No Status: Acute Code(s): D64.9 - ANEMIA, UNSPECIFIED SNOMED Code(s): 353483519 (5) Diabetes mellitus Current Visit: No Status: Acute Code(s): E11.9 - TYPE 2 DIABETES MELLITUS WI THOUT COMPLICATIONS SNOMED Code(s): 80017390 (6) HTN (hypertension) Current Visit: No Status: Acute Code(s): I10 - ESSENTIAL (PRIMARY) HYPERTENSION SNOMED Code(s): 84087719 (7) Hyperlipemia Current Visit: No Status: Acute Code(s): E78.5 - HYPERLIPIDEMIA, UNSPECIFIED SNOMED Code(s): 49554911 (8) Type 2 diabetes mellitus with hyperglycemia Current Visit: Yes Status: Acute Code(s): E11.65 - TYPE 2 DIABETES MELLITUS WITH HYPERGLYCEMIA SNOMED Code(s): 093749650017828 (9) Personal history of renal cell carcinoma Current Visit: Yes Status: Acute Code(s): Z85.528 - PERSONAL HISTORY OF OTHER MALIGNANT NEOPLASM OF KIDNEY SNOMED Code(s): 693160670 (10) Personal history of pancreatic cancer Current Visit: Yes Status: Acute Code(s): Z85.07 - PERSONAL HISTORY OF MALIGNANT NEOPLASM OF PANCREAS SNOMED Code(s): 71321457726165 (11) Hx of CABG Current Visit: Yes Status: Acute Code(s): Z95.1 - PRESENCE OF AORTOCORONARY BYPASS GRAFT SNOMED Code(s): 863678384 (12) Coronary arteriosclerosis Current Visit: Yes Status: Acute Code(s): I25.10 - ATHSCL HEART DISEASE OF [place] CORONARY ARTERY W/O ANG PCTRS SNOMED Code(s): 56104280 (13) Oxygen dependent Current Visit: Yes Status: Acute Code(s): Z99.81 - DEPENDENCE ON S UPPLEMENTAL OXYGEN SNOMED Code(s): 135433258308 Plan: I'll continue his current medications treatments. Repeat labs in a.m. He'll be reevaluated next 24 hours.
--- NOTE | 2019-04-04 11:07 | P.PN ---
Subjective Progress Note Date: 04/04/19 Principal diagnosis: Shortness of breath, weakness, increased lower extremity swelling, This is a 83-year-old white male patient of Dr. Quesada with past medical history of severe COPD on home oxygen, obstructive sleep apnea intolerant to CPAP, coronary artery disease with previous bypass grafting 15 years ago, chronic systolic congestive heart failure with the EF of 45%, diabetes mellitus, GERD/reflux, previous episode of myocardial infarction, previous episode of pneumonia, chronic kidney disease, history of renal cancer with partial nephrectomy, acute respiratory failure following his nephrectomy surgery requiring tracheostomy with subsequent decannulation. The patient and his daughter also reported history of pancreatic resection of the distal portion of pancreas and splenectomy for history of pancreatic cancer. He also has history of peripheral vascular disease, status post right foot second toe amputation in January 2019 for wet gangrene and osteomyelitis. On 04/02/2019 patient presented to the emergency department via EMS for evaluation of increasing shortness of breath, weakness, and apparently patient had to lower himself to the ground twice and crawl to the telephone because he could not get up off the floor. His and his daughter were at a doctor's appointment, and there was nobody around to assist him. His daughter reports that patient is on maintenance dose of Lasix twice daily, 40 mg in the morning 40 mg at night however he had been cut back to once daily, and they've been noticing increasing swelling in his lower extremities. Patient denies any weight gain as he is also been trying to diet, does admit that his lower extremities are more edematous, there slightly erythematous but not warm to touch. There are healing scabbed areas on the right lower [place] area, no drainage. Denies any fever or chills, yesterday he had some cough, and he was bringing up some foamy material. Did have some chest discomfort on admission that felt like heartburn. Chest x-ray showed interstitial pulmonary edema. CT chest abdomen and pelvis showed no definite acute process, this was done without contrast. EKG showed A. fib, with nonspecific T-wave abnormality, and incomplete left bundle branch block. Blood work showed a white blood cell count of 12.8, hemoglobin of 10.4, d-dimer is 0.94, sodium was 132, potassium is 5.2, chloride was 97, CO2 is 22, BUN is 39, creatinine is 1.57, lactic acid is -0.8, LFTs were negative, troponin is negative, proBNP is 1390. Patient was started on IV Lasix, he is diuresing, and his breathing has significantly improved since admission On 04/04/2019 patient seen in follow-up on selective care unit, he is awake and alert, in no acute distress, no difficulty breathing, complaints of chest pain, lower extremity edema is improving, breathing has improved, he is in negative fluid balance, his weight is down by 3 kg in the last 24 hours, today's labs have been reviewed showing BUN of 48, and creatinine of 1.63. His echocardiogram revealed mildly impaired LV function with an EF between 45 and 50%. No fever or chills, patient is on heparin infusion for atrial fibrillation and his heart rate is controlled at this time, he remains on Lasix at 80 mg every 8 hours. No congestion or wheezing. Objective - Vital Signs Vital signs: Vital Signs Temp 97.5 F L 04/04/19 07:49 Pulse 75 04/04/19 09:23 Resp 18 04/04/19 09:23 BP 124/58 04/04/19 09:23 Pulse Ox 99 04/04/19 09:23 Intake & Output 04/03/19 04/04/19 04/04/19 18:59 06:59 18:59 Intake Total 1200.832 229.839 480 Output Total 2400 1025 400 Balance -1199.168 -795.161 80 Weight 108.5 kg 106.5 kg Intake: Intake, IV Titration 120.832 229.839 Amount Heparin Sod,Pork in 0.45% 120.832 229.839 NaCl 25,000 unit In 0.45 % NaCl 1 250ml.bag @ 18 UNITS/KG/HR 18.86 mls/hr IV .[id number] [facility] Rx#: [id number] Oral 1080 480 Output: Urine 2400 1025 400 Other: Voiding Method Urinal # Voids 1 - Exam GENERAL EXAM: Alert, very pleasant, 83-year-old white male patient on 4 L of oxygen with a pulse ox of 99%, comfortable in no apparent distress. HEAD: Normocephalic/atraumatic. EYES: Normal reaction of pupils, equal size. Conjunctiva pink, sclera white. NOSE: Clear with pink turbinates. THROAT: No erythema or exudates. NECK: No masses, no JVD, no thyroid enlargement, no adenopathy. CHEST: No chest wall deformity. Symmetrical expansion. LUNGS: Equal air entry with minimal crackles at the bases, but no wheezes, rh onchi or dullness. CVS: Regular rate and rhythm, normal S1 and S2, no gallops, no murmurs, no rubs ABDOMEN: Soft, nontender. No hepatosplenomegaly, normal bowel sounds, no guarding or rigidity. EXTREMITIES: No clubbing, mild to moderate bilateral lower extremity edema, no cyanosis, 2+ pulses and upper and lower extremities. MUSCULOSKELETAL: Muscle strength and tone normal. SPINE: No scoliosis or deformity SKIN: No rashes CENTRAL NERVOUS SYSTEM: Alert and oriented -3. No focal deficits, tone is normal in all 4 extremities. PSYCHIATRIC: Alert and oriented -3. Appropriate affect. Intact judgment and insight. - Labs CBC & Chem 7: 04/04/19 05:58 04/04/19 05:58 Labs: Abnormal Lab Results - Last 24 Hours (Table) 04/03/19 04/03/19 04/03/19 Range/Units 05:19 09:17 11:58 WBC (3.8-10.6) k/uL RBC (4.30-5.90) m/uL Hgb (13.0-17.5) gm/dL Hct (39.0-53.0) % RDW (11.5-15.5) % Neutrophils # (1.3-7.7) k/uL Lymphocytes # (1.0-4.8) k/uL APTT (22.0-30.0) sec Sodium 134 L (137-145) mmol/L Potassium 5.4 H (3.5-5.1) mmol/L Chloride 95 L (98-107) mmol/L BUN 39 H (9-20) mg/dL Creatinine 1.54 H (0.66-1.25) mg/dL Glucose 488 H (74-99) mg/dL POC Glucose (mg/dL) 443 H (75-99) mg/dL Hemoglobin A1c 7.5 H (4.0-6.0) % 04/03/19 04/03/19 04/03/19 Range/Units 16:39 18:49 20:20 WBC (3.8-10.6) k/uL RBC (4.30-5.90) m/uL Hgb (13.0-17.5) gm/dL Hct (39.0-53.0) % RDW (11.5-15.5) % Neutrophils # (1.3-7.7) k/uL Lymphocytes # (1.0-4.8) k/uL APTT 52.5 H (22.0-30.0) sec Sodium (137-145) mmol/L Potassium (3.5-5.1) mmol/L Chloride (98-107) mmol/L BUN (9-20) mg/dL Creatinine (0.66-1.25) mg/dL Glucose (74-99) mg/dL POC Glucose (mg/dL) 371 H 321 H (75-99) mg/dL Hemoglobin A1c (4.0-6.0) % 04/03/19 04/04/19 04/04/19 Range/Units 21:51 05:58 05:58 WBC 18.1 H (3.8-10.6) k/uL RBC 3.91 L (4.30-5.90) m/uL Hgb 10.4 L (13.0-17.5) gm/dL Hct 33.4 L (39.0-53.0) % RDW 19.0 H (11.5-15.5) % Neutrophils # 16.7 H (1.3-7.7) k/uL Lymphocytes # 0.5 L (1.0-4.8) k/uL APTT 43.9 H (22.0-30.0) sec Sodium (137-145) mmol/L Potassium (3.5-5.1) mmol/L Chloride (98-107) mmol/L BUN (9-20) mg/dL Creatinine (0.66-1.25) mg/dL Glucose (74-99) mg/dL POC Glucose (mg/dL) 310 H (75-99) mg/dL Hemoglobin A1c (4.0-6.0) % 04/04/19 04/04/19 04/04/19 Range/Units 05:58 07:12 10:18 WBC (3.8-10.6) k/uL RBC (4.30-5.90) m/uL Hgb (13.0-17.5) gm/dL Hct (39.0-53.0) % RDW (11.5-15.5) % Neutrophils # (1.3-7.7) k/uL Lymphocytes # (1.0-4.8) k/uL APTT (22.0-30.0) sec Sodium 133 L (137-145) mmol/L Potassium (3.5-5.1) mmol/L Chloride 90 L (98-107) mmol/L BUN 48 H (9-20) mg/dL Creatinine 1.63 H (0.66-1.25) mg/dL Glucose 387 H (74-99) mg/dL POC Glucose (mg/dL) 409 H 369 H (75-99) mg/dL Hemoglobin A1c (4.0-6.0) % Assessment and Plan Plan: Assessment: #1. Acute exacerbation of chronic congestive heart failure with systolic dysfunction #2. Paroxysmal atrial fibrillation not on any anticoagulation #3. Chronic kidney disease #4. History of renal cancer status post partial nephrectomy #5. History of pancreatic cancer status post surgical resection of the distal portion of the pancreas and splenectomy #6. Hypertension #7. Hyperlipidemia #8. Diabetes mellitus #9. Coronary artery disease with prior bypass surgery #10. Advanced COPD, on home oxygen #11. Chronic anemia #12. Mild hyperkalemia #13. Peripheral vascular disease #14. Recent history of right second toe osteomyelitis and with gangrene status post amputation #15. Steroid-induced hyperglycemia Plan: Continue on medical treatment, patient is diuresing, his breathing is improving, vital signs are stable, or extremity edema is improving, patient is in negative fluid balance, echocardiogram results have been reviewed. No acute issues overnight. No fever or chills, continue oral prednisone and nebulas bronchodilators. I performed a history & physical examination of the patient and discussed their management with my nurse practitioner, Juanita Miller. I reviewed the nurse practitioner's note and agree with the documented findings and plan of care. Lung sounds are positive for scattered crackles. The findings and the impression was discussed with the patient. I attest to the documentation by the nurse practitioner. Time with Patient: Less than 30
[2019-04-04 12:58] LABS: Glucose,Whole Blood 371 mg/dL (75-99)
--- NOTE | 2019-04-04 13:00 | NM ---
EXAMINATION TYPE: NM pul vent and perfuse DATE OF EXAM: 04/04/2019 COMPARISON: NONE HISTORY: Shortness of breath TECHNIQUE: Utilizing inhalation of 63.9 mCi Tc 99m DTPA aerosol and intravenous injection of 4.8 mCi of Tc 99m MAA, ventilation and perfusion images are acquired post injection in multiple projections. FINDINGS: Normal radiotracer distribution is noted in the lungs. There is no evidence of mismatched defects. IMPRESSION: Low probability for pulmonary embolism.
--- NOTE | 2019-04-04 14:26 | P.PN ---
Subjective Progress Note Date: 04/04/19 This is a pleasant 83-year-old gentleman who follows regularly with Dr. Lr in the office. He has a known history of coronary artery disease with prior bypass surgery, paroxysmal atrial fibrillation, diabetes, hypertension, hyperlipidemia, history of renal cancer status post nephrectomy, prior TIA, prior splenectomy, sleep apnea, history of GI bleed, anemia requiring blood and iron transfusions. He presents to the hospital on this occasion with symptoms of significant swelling in his lower extremities and abdominal area with associated shortness of breath. Patient has also been quite weak at home, he felt as though he may fall, so he left himself down to the ground and had to crawl to try to get to a phone for help. He's been also experiencing significant abdominal swelling and some discomfort in the abdomen with associated nausea and vomiting. His chest x-ray on presentation here showed interstitial phase pulmonary edema. CT of the abdomen and chest was performed which did not reveal any definite process. EKG shows atrial fibrillation with a controlled ventricular response, incomplete left bundle branch block pattern and occasional PVC. Blood pressure 127/88, heart rate in the 70s, 93% on 4 L of oxygen. White blood cell count 12.8, hemoglobin 10.6, platelet count 399. Sodium 132, potassium 5.2, BUN 39 and creatinine 1.5. Troponin is negative. BNP [id number]. Patient was initiated on IV Lasix in the emergency room. At the time of my examination this morning, he continues to feel short of breath, discontinue's to feel bloated in his abdomen. 04/04/2019 Patient was seen and examined this morning, overall feeling much better. At pressure 126/60 with a heart rate in the 70s, 98% liters of oxygen. White blood cell count 18.1, hemoglobin 10.4, platelet count 442. Sodium 133, potassium 4.9, BUN 48 and creatinine 1.6. Objective - Vital Signs Vital signs: Vital Signs Temp 97.5 F L 04/04/19 07:49 Pulse 76 04/04/19 13:50 Resp 20 04/04/19 12:00 BP 126/59 04/04/19 12:00 Pulse Ox 98 04/04/19 12:00 Intake & Output 04/03/19 04/04/19 04/04/19 18:59 06:59 18:59 Intake Total 1200.832 229.839 480 Output Total 2400 1025 400 Balance -1199.168 -795.161 80 Weight 108.5 kg 106.5 kg Intake: Intake, IV Titration 120.832 229.839 Amount Heparin Sod,Pork in 0.45% 120.832 229.839 NaCl 25,000 unit In 0.45 % NaCl 1 250ml.bag @ 18 UNITS/KG/HR 18.86 mls/hr IV .[id number] [facility] Rx#: [id number] Oral 1080 480 Output: Urine 2400 1025 400 Other: Voiding Method Urinal # Voids 1 - Exam PHYSICAL EXAMINATION: GENERAL: 83-year-old gentleman in no acute distress at the time of my examination HEENT: Head is atraumatic, normocephalic. Pupils equal, round. Sclera anicteric. Conjunctiva are clear. Mucous membranes of the mouth are moist. Neck is supple. There is elevated jugular venous pressure. No carotid bruit is heard. HEART EXAMINATION: Heart S1 and S2 irregularly irregular a systolic murmur is heard CHEST EXAMINATION: Lungs reveal crackles bilaterally with improvement in entry to the bases bilaterally ABDOMEN: Soft, mildly distended, positive generalized tenderness . Bowel sounds are heard. No organomegaly noted. EXTREMITIES: 1+ peripheral pulses with 1+ evidence of peripheral edema , evidence of a bilateral ear erythema suggestive of cellulitis, multiple open ulcerated areas noted. . NEUROLOGIC patient is awake, alert and oriented 3 - Labs CBC & Chem 7: 04/04/19 05:58 04/04/19 05:58 Labs: Abnormal Lab Results - Last 24 Hours (Table) 04/03/19 04/03/19 04/03/19 Range/Units 16:39 18:49 20:20 WBC (3.8-10.6) k/uL RBC (4.30-5.90) m/uL Hgb (13.0-17.5) gm/dL Hct (39.0-53.0) % RDW (11.5-15.5) % Neutrophils # (1.3-7.7) k/uL Lymphocytes # (1.0-4.8) k/uL APTT 52.5 H (22.0-30.0) sec Sodium (137-145) mmol/L Chloride (98-107) mmol/L BUN (9-20) mg/dL Creatinine (0.66-1.25) mg/dL Glucose (74-99) mg/dL POC Glucose (mg/dL) 371 H 321 H (75-99) mg/dL 04/03/19 04/04/19 04/04/19 Range/Units 21:51 05:58 05:58 WBC 18.1 H (3.8-10.6) k/uL RBC 3.91 L (4.30-5.90) m/uL Hgb 10.4 L (13.0-17.5) gm/dL Hct 33.4 L (39.0-53.0) % RDW 19.0 H (11.5-15.5) % Neutrophils # 16.7 H (1.3-7.7) k/uL Lymphocytes # 0.5 L (1.0-4.8) k/uL APTT 43.9 H (22.0-30.0) sec Sodium (137-145) mmol/L Chloride (98-107) mmol/L BUN (9-20) mg/dL Creatinine (0.66-1.25) mg/dL Glucose (74-99) mg/dL POC Glucose (mg/dL) 310 H (75-99) mg/dL 04/04/19 04/04/19 04/04/19 Range/Units 05:58 07:12 10:18 WBC (3.8-10.6) k/uL RBC (4.30-5.90) m/uL Hgb (13.0-17.5) gm/dL Hct (39.0-53.0) % RDW (11.5-15.5) % Neutrophils # (1.3-7.7) k/uL Lymphocytes # (1.0-4.8) k/uL APTT (22.0-30.0) sec Sodium 133 L (137-145) mmol/L Chloride 90 L (98-107) mmol/L BUN 48 H (9-20) mg/dL Creatinine 1.63 H (0.66-1.25) mg/dL Glucose 387 H (74-99) mg/dL POC Glucose (mg/dL) 409 H 369 H (75-99) mg/dL 11/14/19 11/14/19 Range/Units 12:55 12:56 WBC (3.8-10.6) k/uL RBC (4.30-5.90) m/uL Hgb (13.0-17.5) gm/dL Hct (39.0-53.0) % RDW (11.5-15.5) % Neutrophils # (1.3-7.7) k/uL Lymphocytes # (1.0-4.8) k/uL APTT 76.1 H (22.0-30.0) sec Sodium (137-145) mmol/L Chloride (98-107) mmol/L BUN (9-20) mg/dL Creatinine (0.66-1.25) mg/dL Glucose (74-99) mg/dL POC Glucose (mg/dL) 371 H (75-99) mg/dL Assessment and Plan Plan: Assessment and plan #1 symptoms of shortness of breath with associated bilateral lower extremity and abdominal swelling. Elevated BNP level at 1390, chest x-ray shows interstitial phase pulmonary edema. 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 Continue current dose of IV Lasix, continue to monitor the intake and output along with daily weights and daily lytes BUN and creatinine. DNP note has been reviewed, I agree with a documented findings and plan of care. Patient was seen and examined.
--- NOTE | 2019-04-04 15:36 | CDI ---
Documentation Clarification Form Date: 04/04/2019 3:30:58 PM From: Katarina Jimenez RN, CCDS Admit Date: 04/02/2019 8:24:00 PM Patient Name: Quincy Carson Visit Number: [id number] ATTENTION: The Clinical Documentation Specialists (CDI) and [facility] Coding Staff appreciate your assistance in clarifying documentation. Please respond to the clarification below the line at the bottom and electronically sign. The CDI & [facility] Coding staff will review the response and follow-up if needed. Please note: Queries are made part of the Legal Health Record. If you have any questions, please contact the author of this message via ITS. Dr. Jono Key Hypoxic respiratory failure has been documented but requires acuity. History/Risk Factors: Hypoxic respiratory failure, home o2 dependant, COPD acute on chronic systolic CHF, paroxysmal Atrial fib, CABG, Nephrectomy, hx of trach with decannulation Tobacco use: none Home oxygen: no documentation of amount Clinical Indicators: 04/03 Attending Assessment: Hypoxic respiratory failure 04/04 Pulmonary progress note: "Advanced COPD, on Home oxygen." Vital signs: temp 98.2, hr 89, RR 19, B/P 127/52, spo2 95% 2l NC 04/04 Pulmonary Lung/Breathing assessment: "Equal air entry with minimal crackles at the bases, but no wheezes, rhonchi or dullness." Treatment: IV Solumedrol tapering dose Breathing TX: Duoneb QID and Q 2 hrs PRN SOB, Pulmicort INH BID Pulse ox per unit protocol O2: 2-4L nasal cannula In your professional opinion, can you please clarify if these findings signify one of the following conditions? Acute Hypoxic Respiratory Failure _------>Acute on Chronic Hypoxic Respiratory Failure Chronic Hypoxic Respiratory Failure Other Diagnosis, please specify Unable to determine (Last Query Form Revision: January 2019) MTDD
[2019-04-04 17:39] LABS: Glucose,Whole Blood 429 mg/dL (75-99)
[2019-04-04 19:07] LABS: Glucose,Whole Blood 381 mg/dL (75-99)
[2019-04-04] MEDS ORDERED: INSULIN REGULAR BOLUS (FROM DRIP BAG) IV ONE (19:38)
[2019-04-04] MEDS ORDERED: INSULIN REGULAR 100 UNIT in SODIUM CHLORIDE 0.9% 100 ML IV SCH (20:00)
[2019-04-04] MEDS: MAGNESIUM OXIDE 400 MG TAB PO SCH (20:51)
[2019-04-04] MEDS: ESCITALOPRAM 10 MG TAB PO SCH (20:51)
[2019-04-04] MEDS: PRAVASTATIN SODIUM 40 MG TAB PO SCH (20:51)
[2019-04-04] MEDS: amLODIPine 10 MG TAB PO SCH (20:51)
[2019-04-04] MEDS: MONTELUKAST 10 MG TAB PO SCH (20:51)
[2019-04-04 21:31] LABS: Glucose,Whole Blood 374 mg/dL (75-99)
[2019-04-04 22:13] LABS: Glucose,Whole Blood 357 mg/dL (75-99)
[2019-04-04 22:36] LABS: Glucose,Whole Blood 263 mg/dL (75-99)
[2019-04-04 23:06] LABS: Glucose,Whole Blood 198 mg/dL (75-99)
[2019-04-04 23:37] LABS: Glucose,Whole Blood 162 mg/dL (75-99)
[2019-04-05 00:37] LABS: Glucose,Whole Blood 138 mg/dL (75-99)
[2019-04-05 01:29] LABS: Glucose,Whole Blood 169 mg/dL (75-99)
[2019-04-05] MEDS: HEPARIN SOD,PORK IN 0.45% NACL 25,000 UNIT in 0.45% NACL 1 250ML.BAG IV SCH (03:14)
[2019-04-05 03:36] LABS: Glucose,Whole Blood 201 mg/dL (75-99)
[2019-04-05] MEDS: FUROSEMIDE 10 MG/ML 4 ML VIAL IV SCH ×2 (03:36→12:36)
[2019-04-05 05:31] LABS: Glucose,Whole Blood 196 mg/dL (75-99)
[2019-04-05 06:23] LABS: Calcium 10.1 mg/dL (8.4-10.2); Magnesium 2.2 mg/dL (1.6-2.3); Potassium 4.5 mmol/L (3.5-5.1)
[2019-04-05 06:27] LABS: INR 1.1 (<1.2); Prothrombin Time 11.4 sec (9.0-12.0)
[2019-04-05 06:36] LABS: Anisocytosis Slight; Basophils # (A) 0.2 k/uL (0-0.2); Basophils % (A) 1 %; Eosinophils % (A) 0 %; HCT 35.6 % (39.0-53.0); HGB 11.2 gm/dL (13.0-17.5); Hypochromasia Moderate; Lymphocytes # (A) 0.9 k/uL (1.0-4.8); Lymphocytes % (A) 5 %; MCH 26.4 pg (25.0-35.0); MCHC 31.5 g/dL (31.0-37.0); MCV 83.9 fL (80.0-100.0); Mean Platelet Volume 7.4; Monocytes # (A) 1.5 k/uL (0-1.0); Monocytes % (A) 7 %; Neutrophils % (A) 87 %; Platelet Count 472 k/uL (150-450); RBC 4.24 m/uL (4.30-5.90); RDW 18.8 % (11.5-15.5); WBC 20.8 k/uL (3.8-10.6)
[2019-04-05] MEDS: IPRATROPIUM-ALBUTEROL 3 ML NEB INHALATION SCH ×3 (07:06→16:21)
[2019-04-05] MEDS: SYMBICORT 160-4.5 MCG INHALER INHALATION SCH (07:06)
[2019-04-05] MEDS ORDERED: INSULIN ASPART (NovoLOG) 100 UNIT/ML VIAL SQ SCH ×3 (07:30→12:30)
[2019-04-05 07:33] LABS: Glucose,Whole Blood 98 mg/dL (75-99)
[2019-04-05 08:07] LABS: Glucose,Whole Blood 112 mg/dL (75-99)
[2019-04-05] MEDS: predniSONE 20 MG TAB PO SCH (08:41)
[2019-04-05] MEDS: METOPROLOL TARTRATE 12.5 MG TAB PO SCH (08:41)
[2019-04-05] MEDS: ASPIRIN 81 MG PO SCH (08:41)
[2019-04-05] MEDS: FLUTICASONE 50MCG/SPRAY NASAL 16GM EA NOSTRIL SCH (08:42)
[2019-04-05] MEDS: LISINOPRIL 5 MG TAB PO SCH (08:42)
[2019-04-05] MEDS: PANTOPRAZOLE 40 MG TABLET PO SCH (08:42)
[2019-04-05] MEDS ORDERED: INSULIN DETEMIR (LEVEMIR) 100 UNIT/ML SYR SQ SCH (09:00)
[2019-04-05 12:23] LABS: Glucose,Whole Blood 231 mg/dL (75-99)
--- NOTE | 2019-04-05 13:24 | P.DS ---
Providers Date of admission: 04/02/19 20:24 Expected date of discharge: 04/05/19 Attending physician: Luis Quesada Consults: 04/02/19 20:24 Consult Physician Routine Consulting Provider: Devi Vieira Consult Reason/Comments: hypoxia Do you want consulting provider notified?: Yes 04/02/19 20:29 Consult Physician Routine Consulting Provider: Lukas Lr Consult Reason/Comments: chf Do you want consulting provider notified?: Yes Primary care physician: Luis Quesada - Discharge Diagnosis(es) (1) Acute systolic (congestive) heart failure Current Visit: Yes Status: Acute (2) Hypoxia Current Visit: Yes Status: Acute (3) Acute exacerbation of chronic obstructive airways disease Current Visit: No Status: Acute (4) Anemia Current Visit: No Status: Acute (5) Diabetes mellitus Current Visit: No Status: Acute (6) HTN (hypertension) Current Visit: No Status: Acute (7) Hyperlipemia Current Visit: No Status: Acute (8) Type 2 diabetes mellitus with hyperglycemia Current Visit: Yes Status: Acute (9) Personal history of renal cell carcinoma Current Visit: Yes Status: Acute (10) Personal history of pancreatic cancer Current Visit: Yes Status: Acute (11) Hx of CABG Current Visit: Yes Status: Acute (12) Coronary arteriosclerosis Current Visit: Yes Status: Acute (13) Oxygen dependent Current Visit: Yes Status: Acute Hospital Course: This is an 83-year-old gentleman with extensive medical history of atrial fibrillation, CAD, renal cancer, CHF, COPD, CVA/TIA, diabetes mellitus, hypertension, hyperlipidemia, CAD, [place], CABG, osteoarthritis deficient anemia, sleep apnea presented to the ER with complaints of increasing weakness, shortness of breath which required patient to lower himself down to the floor 2-states he did not fall, then crawled to the telephone to call for EMS. Creatinine kinase 426. Patient reports his Lasix had been decreased to daily and was experiencing increased edema bilateral lower extremities. BUN 39, creatinine 1.57 (baseline 1.2). Potassium 5.2 Denies fevers and chills. Reports productive cough, sputum color unknown. Afebrile, WBC 12.8 ,tachypneic on admission, requiring initially 2 L nasal cannula to maintain O2 sats of 93% in a patient who does not wear oxygen at home; now requiring 4 L.BP/HR stable. Hemoglobin on admission 10.4. Sodium 132, chloride 97. Lactic acid 0.8. Hyperglycemia on admission with blood sugar of 293. Abdominal CT reporting no definite acute process. Chest x-ray reported interstitial phase pulmonary edema bilaterally. EKG reported atrial fibrillation incomplete left bundle branch block, nonspecific T-wave. Troponin negative X 1, BNP 1390 Denies chest pain, palpitations. Reports exertional shortness of breath. Lasix IV push initiated along with heparin drip. D-dimer elevated, VQ scan ordered as per ER, pending. 04/04/2019: Patient is feeling better after being diuresed. He's been seen by cardiology and pulmonology. 2-D echo shows ejection fraction of 45-50% with some hypokinesis noted. He is on his cardiac medications. He denies any chest pains, pressures or shortness breath at rest this morning. He does get shortness breath with exertion. Pulmonology had which and oral prednisone and continued his inhalers. Sugars remain elevated most likely due to prednisone. He remains on heparin. Physical therapy evaluated him and recommended home PT. 04/05/2019: Acute scan is negative. Heparin is been discontinued. Patient is doing well. Cardiology is cleared for discharge after reviewing his ejection fraction and other labs. Due to his history of anemia, iron requiring transfusions, and splenectomy, he was not on anticoagulants and will remain only on baby aspirin at this time. Patient Condition at Discharge: Fair Plan - Discharge Summary Discharge Rx Participant: No New Discharge Prescriptions: Continue Montelukast [Singulair] 10 mg PO HS Pravastatin Sodium 40 mg PO HS Acetaminophen Tab [Tylenol] 1,000 mg PO BID Pantoprazole [Protonix] 40 mg PO DAILY #30 tab Insulin Aspart [NovoLOG Flexpen] See Protocol SQ AC-TID PRN PRN Reason: Blood Sugar - High Budesonide-Formot 160-4.5 Mcg [Symbicort 160-4.5 Mcg Inhaler] 2 puff INHALATI ON RT-BID Lisinopril [Zestril] 5 mg PO DAILY Escitalopram Oxalate [Lexapro] 10 mg PO HS Cyanocobalamin (Vitamin B-12) [Vitamin B-12] 1,000 mcg PO TUFR Fluticasone Nasal [place] [Flonase Nasal [place]] 2 spray EA NOSTRIL DAILY #1 bottle Furosemide [Lasix] 40 mg PO BID #60 tab Insulin Aspart [NovoLOG Flexpen] 17 units SQ TID-W/MEALS #0 Metoprolol Tartrate [Lopressor] 12.5 mg PO BID Magnesium Oxide [Mag-Ox] 400 mg PO HS Insulin Detemir [Levemir Flextouch] 60 units SQ HS Sulfamethox-Tmp 400-80Mg [Bactrim SS 400-80 mg] 1 tab PO Q12HR #20 tablet amLODIPine [Norvasc] 10 mg PO HS Ipratropium-Albuterol Nebulize [Duoneb 0.5 mg-3 mg/3 ml Soln] 3 ml INHALATION RT-QID PRN PRN Reason: Shortness Of Breath Discharge Medication List Montelukast [Singulair] 10 mg PO HS 12/21/14 [History] Pravastatin Sodium 40 mg PO HS 02/07/16 [History] Acetaminophen Tab [Tylenol] 1,000 mg PO BID 03/17/17 [History] Pantoprazole [Protonix] 40 mg PO DAILY #30 tab 03/21/17 [Rx] Insulin Aspart [NovoLOG Flexpen] See Protocol SQ AC-TID PRN 11/12/17 [History] Budesonide-Formot 160-4.5 Mcg [Symbicort 160-4.5 Mcg Inhaler] 2 puff INHALATION RT-BID 11/13/17 [History] Lisinopril [Zestril] 5 mg PO DAILY 01/26/18 [History] Escitalopram Oxalate [Lexapro] 10 mg PO HS 04/19/18 [History] Cyanocobalamin (Vitamin B-12) [Vitamin B-12] 1,000 mcg PO TUFR 01/15/19 [History] Fluticasone Nasal [place] [Flonase Nasal [place]] 2 spray EA NOSTRIL DAILY #1 bottle 01/22/19 [Rx] Furosemide [Lasix] 40 mg PO BID #60 tab 01/22/19 [Rx] Insulin Aspart [NovoLOG Flexpen] 17 units SQ TID-W/MEALS #0 01/22/19 [Rx] Insulin Detemir [Levemir Flextouch] 60 units SQ HS 02/10/19 [History] Magnesium Oxide [Mag-Ox] 400 mg PO HS 02/10/19 [History] Metoprolol Tartrate [Lopressor] 12.5 mg PO BID 02/10/19 [History] Sulfamethox-Tmp 400-80Mg [Bactrim SS 400-80 mg] 1 tab PO Q12HR #20 tablet 02/14/19 [Rx] amLODIPine [Norvasc] 10 mg PO HS 04/02/19 [History] Ipratropium-Albuterol Nebulize [Duoneb 0.5 mg-3 mg/3 ml Soln] 3 ml INHALATION RT-QID PRN 04/03/19 [History] Follow up Appointment(s)/Referral(s): Luis Quesada Jr, DO [Primary Care Provider] - 1 Week Discharge Disposition: HOME WITH HOME HEALTH SERVICES
[2019-04-05 13:32] VITALS: BP 115/51; PULSE 57; RESP 17; TEMP 97.8
--- NOTE | 2019-04-05 14:15 | P.PN ---
Subjective Progress Note Date: 04/05/19 This is a pleasant 83-year-old gentleman who follows regularly with Dr. Lr in the office. He has a known history of coronary artery disease with prior bypass surgery, paroxysmal atrial fibrillation, diabetes, hypertension, hyperlipidemia, history of renal cancer status post nephrectomy, prior TIA, prior splenectomy, sleep apnea, history of GI bleed, anemia requiring blood and iron transfusions. He presents to the hospital on this occasion with symptoms of significant swelling in his lower extremities and abdominal area with associated shortness of breath. Patient has also been quite weak at home, he felt as though he may fall, so he left himself down to the ground and had to crawl to try to get to a phone for help. He's been also experiencing significant abdominal swelling and some discomfort in the abdomen with associated nausea and vomiting. His chest x-ray on presentation here showed interstitial phase pulmonary edema. CT of the abdomen and chest was performed which did not reveal any definite process. EKG shows atrial fibrillation with a controlled ventricular response, incomplete left bundle branch block pattern and occasional PVC. Blood pressure 127/88, heart rate in the 70s, 93% on 4 L of oxygen. White blood cell count 12.8, hemoglobin 10.6, platelet count 399. Sodium 132, potassium 5.2, BUN 39 and creatinine 1.5. Troponin is negative. BNP [id number]. Patient was initiated on IV Lasix in the emergency room. At the time of my examination this morning, he continues to feel short of breath, discontinue's to feel bloated in his abdomen. 04/04/2019 Patient was seen and examined this morning, overall feeling much better. Blood pressure 126/60 with a heart rate in the 70s, 98% liters of oxygen. White blood cell count 18.1, hemoglobin 10.4, platelet count 442. Sodium 133, potassium 4.9, BUN 48 and creatinine 1.6. 04/05/2019 Patient seen and examined this morning, discontinue to diurese very well through the night last night. Blood pressure 136/66 with a heart rate in the 70s, 96% on room air. White blood cell count 20.8, hemoglobin 11.2, platelet count 472. Sodium 136, potassium 4.5, BUN 65 and creatinine 1.7. Magnesium 2.2. Objective - Vital Signs Vital signs: Vital Signs Temp 97.4 F L 04/05/19 08:00 Pulse 72 04/05/19 11:56 Resp 18 04/05/19 08:00 BP 137/66 04/05/19 08:00 Pulse Ox 96 04/05/19 08:00 Intake & Output 04/04/19 04/05/19 04/05/19 18:59 06:59 18:59 Intake Total 965.102 531.074 466.688 Output Total 1400 2362 500 Balance -434.898 -1830.926 -33.312 Weight 106.7 kg Intake: Intake, IV Titration 125.102 171.074 106.688 Amount Heparin Sod,Pork in 0.45% 125.102 123.839 97.867 NaCl 25,000 unit In 0.45 % NaCl 1 250ml.bag @ 18 UNITS/KG/HR 18.86 mls/hr IV .[id number] [facility] Rx#: [id number] Insulin Regular 100 unit 47.235 8.821 In Sodium Chloride 0.9% 100 ml @ Titrate IV .Q0M [facility] Rx#:[id number] Oral 840 360 360 Output: Urine 1400 2362 500 Other: Voiding Method Toilet Urinal # Voids 1 1 - Exam PHYSICAL EXAMINATION: GENERAL: 83-year-old gentleman in no acute distress at the time of my examination HEENT: Head is atraumatic, normocephalic. Pupils equal, round. Sclera anicteric. Conjunctiva are clear. Mucous membranes of the mouth are moist. Neck is supple. There is elevated jugular venous pressure. No carotid bruit is heard. HEART EXAMINATION: Heart S1 and S2 irregularly irregular a systolic murmur is heard CHEST EXAMINATION: Lungs reveal crackles bilaterally with improvement in entry to the bases bilaterally ABDOMEN: Soft, mildly distended, positive generalized tenderness . Bowel sounds are heard. No organomegaly noted. EXTREMITIES: 1+ peripheral pulses with 1+ evidence of peripheral edema , evidence of a bilateral ear erythema suggestive of cellulitis, multiple open ulcerated areas noted. . NEUROLOGIC patient is awake, alert and oriented 3 - Labs CBC & Chem 7: 04/05/19 05:18 04/05/19 05:18 Labs: Abnormal Lab Results - Last 24 Hours (Table) 04/04/19 04/04/19 04/04/19 Range/Units 12:55 12:56 17:36 WBC (3.8-10.6) k/uL RBC (4.30-5.90) m/uL Hgb (13.0-17.5) gm/dL Hct (39.0-53.0) % RDW (11.5-15.5) % Plt Count (150-450) k/uL Neutrophils # (1.3-7.7) k/uL Lymphocytes # (1.0-4.8) k/uL Monocytes # (0-1.0) k/uL APTT 76.1 H (22.0-30.0) sec Sodium (137-145) mmol/L Chloride (98-107) mmol/L Carbon Dioxide (22-30) mmol/L BUN (9-20) mg/dL Creatinine (0.66-1.25) mg/dL Glucose (74-99) mg/dL POC Glucose (mg/dL) 371 H 429 H (75-99) mg/dL 04/04/19 04/04/19 04/04/19 Range/Units 19:06 21:00 21:28 WBC (3.8-10.6) k/uL RBC (4.30-5.90) m/uL Hgb (13.0-17.5) gm/dL Hct (39.0-53.0) % RDW (11.5-15.5) % Plt Count (150-450) k/uL Neutrophils # (1.3-7.7) k/uL Lymphocytes # (1.0-4.8) k/uL Monocytes # (0-1.0) k/uL APTT 72.4 H (22.0-30.0) sec Sodium (137-145) mmol/L Chloride (98-107) mmol/L Carbon Dioxide (22-30) mmol/L BUN (9-20) mg/dL Creatinine (0.66-1.25) mg/dL Glucose (74-99) mg/dL POC Glucose (mg/dL) 381 H 374 H (75-99) mg/dL 04/04/19 04/04/19 04/04/19 Range/Units 22:02 22:31 23:04 WBC (3.8-10.6) k/uL RBC (4.30-5.90) m/uL Hgb (13.0-17.5) gm/dL Hct (39.0-53.0) % RDW (11.5-15.5) % Plt Count (150-450) k/uL Neutrophils # (1.3-7.7) k/uL Lymphocytes # (1.0-4.8) k/uL Monocytes # (0-1.0) k/uL APTT (22.0-30.0) sec Sodium (137-145) mmol/L Chloride (98-107) mmol/L Carbon Dioxide (22-30) mmol/L BUN (9-20) mg/dL Creatinine (0.66-1.25) mg/dL Glucose (74-99) mg/dL POC Glucose (mg/dL) 357 H 263 H 198 H (75-99) mg/dL 04/04/19 04/05/19 04/05/19 Range/Units 23:33 00:35 01:27 WBC (3.8-10.6) k/uL RBC (4.30-5.90) m/uL Hgb (13.0-17.5) gm/dL Hct (39.0-53.0) % RDW (11.5-15.5) % Plt Count (150-450) k/uL Neutrophils # (1.3-7.7) k/uL Lymphocytes # (1.0-4.8) k/uL Monocytes # (0-1.0) k/uL APTT (22.0-30.0) sec Sodium (137-145) mmol/L Chloride (98-107) mmol/L Carbon Dioxide (22-30) mmol/L BUN (9-20) mg/dL Creatinine (0.66-1.25) mg/dL Glucose (74-99) mg/dL POC Glucose (mg/dL) 162 H 138 H 169 H (75-99) mg/dL 04/05/19 04/05/19 04/05/19 Range/Units 03:34 05:18 05:18 WBC 20.8 H (3.8-10.6) k/uL RBC 4.24 L (4.30-5.90) m/uL Hgb 11.2 L (13.0-17.5) gm/dL Hct 35.6 L (39.0-53.0) % RDW 18.8 H (11.5-15.5) % Plt Count 472 H (150-450) k/uL Neutrophils # 18.0 H (1.3-7.7) k/uL Lymphocytes # 0.9 L (1.0-4.8) k/uL Monocytes # 1.5 H (0-1.0) k/uL APTT (22.0-30.0) sec Sodium 136 L (137-145) mmol/L Chloride 91 L (98-107) mmol/L Carbon Dioxide 32 H (22-30) mmol/L BUN 65 H (9-20) mg/dL Creatinine 1.71 H (0.66-1.25) mg/dL Glucose 185 H (74-99) mg/dL POC Glucose (mg/dL) 201 H (75-99) mg/dL 04/05/19 04/05/19 04/05/19 Range/Units 05:29 07:46 08:05 WBC (3.8-10.6) k/uL RBC (4.30-5.90) m/uL Hgb (13.0-17.5) gm/dL Hct (39.0-53.0) % RDW (11.5-15.5) % Plt Count (150-450) k/uL Neutrophils # (1.3-7.7) k/uL Lymphocytes # (1.0-4.8) k/uL Monocytes # (0-1.0) k/uL APTT 81.3 H (22.0-30.0) sec Sodium (137-145) mmol/L Chloride (98-107) mmol/L Carbon Dioxide (22-30) mmol/L BUN (9-20) mg/dL Creatinine (0.66-1.25) mg/dL Glucose (74-99) mg/dL POC Glucose (mg/dL) 196 H 112 H (75-99) mg/dL 04/05/19 Range/Units 12:20 WBC (3.8-10.6) k/uL RBC (4.30-5.90) m/uL Hgb (13.0-17.5) gm/dL Hct (39.0-53.0) % RDW (11.5-15.5) % Plt Count (150-450) k/uL Neutrophils # (1.3-7.7) k/uL Lymphocytes # (1.0-4.8) k/uL Monocytes # (0-1.0) k/uL APTT (22.0-30.0) sec Sodium (137-145) mmol/L Chloride (98-107) mmol/L Carbon Dioxide (22-30) mmol/L BUN (9-20) mg/dL Creatinine (0.66-1.25) mg/dL Glucose (74-99) mg/dL POC Glucose (mg/dL) 231 H (75-99) mg/dL Assessment and Plan Plan: Assessment and plan #1 symptoms of shortness of breath with associated bilateral lower extremity and abdominal swelling. Elevated BNP level at 1390, chest x-ray shows interstitial phase pulmonary edema. 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 IV Lasix will be discontinued and patient will be changed over to oral diuretics. Patient is not currently on a blood thinner because of his history of bleeding in the past. He may be able to be discharged home from our perspective on a baby aspirin only. Follow-up appointment with Dr. Lr in the office. DNP note has been reviewed, I agree with a documented findings and plan of care. Patient was seen and examined.
== END 2019-04-05 15:30 | disposition home or self-care (01) | DRG 291 ==
LOC: EC 18:05 → 3SCARD 20:24
PROVIDERS: ADMIT Family Medicine; ATTEND Family Medicine
DX: I13.0 Hypertensive heart and chronic kidney disease with heart failure and stage 1 through stage 4 chronic kidney disease, or unspecified chronic kidney disease (principal); I50.23 Acute on chronic systolic (congestive) heart failure; J96.21 Acute and chronic respiratory failure with hypoxia; J44.1 Chronic obstructive pulmonary disease with (acute) exacerbation; N17.9 Acute kidney failure, unspecified; E11.22 Type 2 diabetes mellitus with diabetic chronic kidney disease; E11.40 Type 2 diabetes mellitus with diabetic neuropathy, unspecified; E11.51 Type 2 diabetes mellitus with diabetic peripheral angiopathy without gangrene; E87.5 Hyperkalemia; I27.20 Pulmonary hypertension, unspecified; E11.65 Type 2 diabetes mellitus with hyperglycemia; J98.6 Disorders of diaphragm; I08.1 Rheumatic disorders of both mitral and tricuspid valves; D50.0 Iron deficiency anemia secondary to blood loss (chronic); I25.110 Atherosclerotic heart disease of native coronary artery with unstable angina pectoris; I44.7 Left bundle-branch block, unspecified; I48.0 Paroxysmal atrial fibrillation; N18.3 Chronic kidney disease, stage 3 (moderate); D72.829 Elevated white blood cell count, unspecified; E78.5 Hyperlipidemia, unspecified; F32.9 Major depressive disorder, single episode, unspecified; F41.9 Anxiety disorder, unspecified; G47.33 Obstructive sleep apnea (adult) (pediatric); I25.2 Old myocardial infarction; M19.041 Primary osteoarthritis, right hand; M19.042 Primary osteoarthritis, left hand; N40.0 Benign prostatic hyperplasia without lower urinary tract symptoms; T38.0X5A Adverse effect of glucocorticoids and synthetic analogues, initial encounter; K21.9 Gastro-esophageal reflux disease without esophagitis; K44.9 Diaphragmatic hernia without obstruction or gangrene; K55.20 Angiodysplasia of colon without hemorrhage; M47.9 Spondylosis, unspecified; Z79.4 Long term (current) use of insulin; Z79.51 Long term (current) use of inhaled steroids; Z79.899 Other long term (current) drug therapy; Z88.1 Allergy status to other antibiotic agents; Z88.5 Allergy status to narcotic agent; Z88.0 Allergy status to penicillin; Z85.07 Personal history of malignant neoplasm of pancreas; Z85.528 Personal history of other malignant neoplasm of kidney; Z86.73 Personal history of transient ischemic attack (TIA), and cerebral infarction without residual deficits; Z87.891 Personal history of nicotine dependence; Z89.429 Acquired absence of other toe(s), unspecified side; Z90.411 Acquired partial absence of pancreas; Z90.5 Acquired absence of kidney; Z90.81 Acquired absence of spleen; Z95.1 Presence of aortocoronary bypass graft; Z99.81 Dependence on supplemental oxygen; Z87.440 Personal history of urinary (tract) infections; Z87.01 Personal history of pneumonia (recurrent); Z86.14 Personal history of Methicillin resistant Staphylococcus aureus infection; Z98.42 Cataract extraction status, left eye; Z98.41 Cataract extraction status, right eye; Z96.1 Presence of intraocular lens; Z82.49 Family history of ischemic heart disease and other diseases of the circulatory system; Z82.5 Family history of asthma and other chronic lower respiratory diseases
CPT/HCPCS: 36415; 71045; 71250; 74176; 78582; 80048; 80053; 82550; 83036; 83605; 83735; 83880; 84100; 84484; 85025; 85379; 85610; 85730; 93005; 93306; 94640; 96374; 96375; 99285

== ENCOUNTER 2019-05-16 16:25 | Inpatient (IN) | payer MEDICARE, BC ==
[2019-05-16] MEDS ORDERED: FUROSEMIDE 10 MG/ML 10 ML VIAL IV STA (17:13)
[2019-05-16] MEDS ORDERED: IPRATROPIUM-ALBUTEROL 3 ML NEB INHALATION STA (17:18)
[2019-05-16 17:56] LABS: Anisocytosis Slight; Basophils # (A) 0.3 k/uL (0-0.2); Basophils % (A) 2 %; Eosinophils # (A) 0.1 k/uL (0-0.7); Eosinophils % (A) 1 %; HCT 33.3 % (39.0-53.0); HGB 10.8 gm/dL (13.0-17.5); Lymphocytes # (A) 0.5 k/uL (1.0-4.8); Lymphocytes % (A) 3 %; MCH 27.2 pg (25.0-35.0); MCHC 32.3 g/dL (31.0-37.0); MCV 84.4 fL (80.0-100.0); Mean Platelet Volume 8.4; Microcytosis Slight; Monocytes # (A) 1.3 k/uL (0-1.0); Monocytes % (A) 7 %; Neutrophils # (A) 15.1 k/uL (1.3-7.7); Neutrophils % (A) 86 %; Platelet Count 327 k/uL (150-450); RBC 3.95 m/uL (4.30-5.90); RDW 19.3 % (11.5-15.5); WBC 17.6 k/uL (3.8-10.6)
[2019-05-16 18:02] LABS: Albumin 4.3 g/dL (3.5-5.0); Calcium 9.3 mg/dL (8.4-10.2); INR 1.1 (<1.2); Magnesium 2.1 mg/dL (1.6-2.3); Partial Thromboplastin Time 29.2 sec (22.0-30.0); Phosphorus 4.1 mg/dL (2.5-4.5); Potassium 4.8 mmol/L (3.5-5.1); Prothrombin Time 11.4 sec (9.0-12.0); Total Bilirubin 0.8 mg/dL (0.2-1.3)
--- NOTE | 2019-05-16 18:25 | ED ---
SOB HPI - General Chief Complaint: Shortness of Breath Stated Complaint: JAYME Time Seen by Provider: 05/16/19 17:10 Source: patient, family, RN notes reviewed, old records reviewed Mode of arrival: wheelchair Limitations: no limitations - History of Present Illness Initial Comments: This is a 84-year-old male here for evaluation of significant shortness of breath. Patient has severe shortness of breath lower extremity edema despite being on at home Lasix. Patient is increasing exertional dyspnea. Also with fever today. Patient self denying any specific or significant complaint. Otherwise no recent travel history or sick contacts. Also recent hospital admission MD Complaint: shortness of breath, anxiety -: days(s) Severity: moderate Severity scale (1-10): 4 Quality: throbbing Consistency: constant Improves With: nothing Worsens With: nothing Known History Of: congestive heart failure Context: recent URI Associated Symptoms: nausea/vomiting, abdominal pain Treatments Prior to Arrival: none - Related Data Home Medications Medication Instructions Recorded Confirmed Montelukast [Singulair] 10 mg PO HS 12/21/14 05/16/19 Pravastatin Sodium 40 mg PO HS 02/07/16 05/16/19 Acetaminophen Tab [Tylenol] 1,000 mg PO BID 03/17/17 05/16/19 Insulin Aspart [NovoLOG Flexpen] See Protocol SQ AC-TID PRN 11/12/17 05/16/19 Budesonide-Formot 160-4.5 Mcg 2 puff INHALATION RT-BID 11/13/17 05/16/19 [Symbicort 160-4.5 Mcg Inhaler] Lisinopril [Zestril] 5 mg PO DAILY 01/26/18 05/16/19 Escitalopram Oxalate [Lexapro] 10 mg PO HS 04/19/18 05/16/19 Cyanocobalamin (Vitamin B-12) 1,000 mcg PO TUFR 01/15/19 05/16/19 [Vitamin B-12] Insulin Detemir [Levemir Flextouch] 60 units SQ HS 02/10/19 05/16/19 Magnesium Oxide [Mag-Ox] 400 mg PO HS 02/10/19 05/16/19 Metoprolol Tartrate [Lopressor] 12.5 mg PO BID 02/10/19 05/16/19 amLODIPine [Norvasc] 10 mg PO HS 04/02/19 05/16/19 Ipratropium-Albuterol Nebulize 3 ml INHALATION RT-QID 04/03/19 05/16/19 [Duoneb 0.5 mg-3 mg/3 ml Soln] Clarithromycin [Biaxin] 500 mg PO BID 05/16/19 05/16/19 Previous Rx's Medication Instructions Recorded Pantoprazole [Protonix] 40 mg PO DAILY #30 tab 03/21/17 Fluticasone Nasal [place] [Flonase 2 spray EA NOSTRIL DAILY #1 bottle 01/22/19 Nasal [place]] Furosemide [Lasix] 40 mg PO BID #60 tab 01/22/19 Insulin Aspart [NovoLOG Flexpen] 17 units SQ TID-W/MEALS #0 01/22/19 Allergies Allergy/AdvReac Type Severity Reaction Status Date / Time Penicillins Allergy Unknown Rash/Hives Verified 05/16/19 20:07 atorvastatin calcium Allergy Unknown Verified 05/16/19 20:07 [From Lipitor] ceftriaxone [From Rocephin] Allergy Rash/Hives Verified 05/16/19 20:51 clonazepam [From Klonopin] Allergy Hallucinati Verified 05/16/19 20:07 ons codeine Allergy Hallucinati Verified 05/16/19 20:07 ons haloperidol [From Haldol] Allergy Hallucinati Verified 05/16/19 20:07 ons haloperidol lactate Allergy Hallucinati Verified 05/16/19 20:07 [From Haldol] ons hydromorphone HCl Allergy Hallucinati Verified 05/16/19 20:07 [From Dilaudid] ons methylphenidate HCl Allergy Hallucinati Verified 05/16/19 20:07 [From Ritalin] ons morphine Allergy Hallucinati Verified 05/16/19 20:07 ons propofol Allergy Hallucinati Verified 05/16/19 20:07 ons quetiapine fumarate Allergy Hallucinati Verified 05/16/19 20:07 [From Seroquel] ons Sulfa (Sulfonamide Allergy Unknown Verified 05/16/19 20:07 Antibiotics) vancomycin Allergy Unknown Verified 05/16/19 20:07 ativan AdvReac Unknown Uncoded 05/16/19 17:28 Review of Systems ROS Statement: Those systems with pertinent positive or pertinent negative responses have been documented in the HPI. ROS Other: All systems not noted in ROS Statement are negative. Past Medical History Past Medical History: Atrial Fibrillation, Coronary Artery Disease (CAD), Cancer, Heart Failure, COPD, CVA/TIA, Diabetes Mellitus, Eye Disorder, GERD/Reflux, GI Bleed, Hyperlipidemia, Hypertension, Myocardial Infarction ([place]), Osteoarthritis (OA), Pneumonia, Renal Disease, Skin Disorder, Sleep Apnea/CPAP/BIPAP, Vascular Disorder Additional Past Medical History / Comment(s): Pt recently admitted to [facility] on 01/15/19 with osteomylitis, CAP, mild exacerbation CHF, tracheopurulent bronchitis, hypoxic respiratory failure, paroxysmal Afib, moderate mitral and tricuspid regurg and severe pulmonary HTN. Other hx: Anemia, blood and iron transfusions, right leg cellulitis, IDDM type II, neuropathy bilateral hands/feet, chronic diabetic wounds, 2013 L renal cancer with surgery - partial nephrectomy/spleenectomy/distal portion of pancreas removed at [facility], TIA, [place] unknown date, BPH, gastritis, small hiatal hernia, past discitis T9-T10, arthritis bilateral hands/back, TARIQ - does not tolerate his CPAP, CKD stage III/hyperkalemia, UTI, sepsis, PVD. Last Myocardial Infarction Date:: UNKNOWN History of Any Multi-Drug Resistant Organisms: MRSA Date of last positivie culture/infection: 01/17/19 MDRO Source:: RIGHT TOE Past Surgical History: Coronary Bypass/CABG, Heart Catheterization, Orthopedic Surgery Additional Past Surgical History / Comment(s): Partial L nephrectomy, distal pancreatectomy, splenectomy - at [place], 2000 CABG - 3 vessel, EGD, colonoscopy, deviated septum surgery, skin/oral lesion removals, R carpal tunnel release, bilateral cataract removal, bilateral laser eye surgery for "leakage", Past Anesthesia/Blood Transfusion Reactions: Previous Problems w/ Anesthesia Additional Past Anesthesia/Blood Transfusion Reaction / Comment(s): 'TROUBLE COMING OUT OF ANESTHESIA' - DELUSIONAL. Patient has received blood in past without reaction. Past Psychological History: Anxiety, Depression Smoking Status: Never smoker Past Alcohol Use History: Occasional Past Drug Use History: None Reported - Past Family History Father Family Medical History: Myocardial Infarction ([place]) Additional Family Medical History / Comment(s): Father of a [place] at the age of 65yrs. Mother Family Medical History: COPD General Exam Limitations: no limitations General appearance: alert, in no apparent distress Head exam: Present: atraumatic, normocephalic, normal inspection Eye exam: Present: normal appearance, PERRL, EOMI. Absent: scleral icterus, conjunctival injection, periorbital swelling ENT exam: Present: normal exam, mucous membranes moist Neck exam: Present: normal inspection. Absent: tenderness, meningismus, lymphadenopathy Respiratory exam: Present: normal lung sounds bilaterally. Absent: respiratory distress, wheezes, rales, rhonchi, stridor Cardiovascular Exam: Present: regular rate, normal rhythm, normal heart sounds. Absent: systolic murmur, diastolic murmur, rubs, gallop, clicks GI/Abdominal exam: Present: soft, normal bowel sounds. Absent: distended, tenderness, guarding, rebound, rigid Extremities exam: Present: normal inspection, full ROM, normal capillary refill. Absent: tenderness, pedal edema, joint swelling, calf tenderness Back exam: Present: normal inspection Neurological exam: Present: alert, oriented X3, CN II-XII intact Psychiatric exam: Present: normal affect, normal mood Skin exam: Present: warm, dry, intact, normal color. Absent: rash Course Vital Signs 05/16/19 05/16/19 05/16/19 17:14 17:25 17:26 Temperature 101.3 F H Pulse Rate 64 67 Respiratory 19 28 H Rate Blood Pressure 133/66 O2 Sat by Pulse 94 L 88 L Oximetry 05/16/19 05/16/19 05/16/19 17:37 17:45 17:54 Temperature Pulse Rate 70 77 Respiratory 25 H Rate Blood Pressure O2 Sat by Pulse Oximetry 05/16/19 05/16/19 05/16/19 18:00 19:00 20:00 Temperature Pulse Rate 70 68 73 Respiratory 25 H 25 H 24 Rate Blood Pressure 133/66 140/70 138/68 O2 Sat by Pulse 90 L 94 L 94 L Oximetry 05/16/19 20:12 Temperature 99.2 F Pulse Rate 70 Respiratory 25 H Rate Blood Pressure 132/71 O2 Sat by Pulse 94 L Oximetry - Reevaluation(s) Reevaluation #1: 05/16/19 20:57 Record is reviewed Reevaluation #2: 05/16/19 20:57 Patient fevers controlled here in the ED - Consultations Consultation #1: julianne Quesada were agreeable for patient admission Medical Decision Making - Medical Decision Making 84 male to the ED co fever, w exertional dyspnea, severe lower extremity edema swallowing unlikely cellulitis. Patient was placed on antibiotics for cellulitis as well as breathing treatments for COPD CHF treatment with Lasix. - Lab Data Result diagrams: 05/16/19 17:39 05/16/19 17:39 Lab Results 05/16/19 05/16/19 05/16/19 Range/Units 17:39 17:39 17:39 WBC 17.6 H (3.8-10.6) k/uL RBC 3.95 L (4.30-5.90) m/uL Hgb 10.8 L (13.0-17.5) gm/dL Hct 33.3 L (39.0-53.0) % MCV 84.4 (80.0-100.0) fL MCH 27.2 (25.0-35.0) pg MCHC 32.3 (31.0-37.0) g/dL RDW 19.3 H (11.5-15.5) % Plt Count 327 (150-450) k/uL Neutrophils % 86 % Lymphocytes % 3 % Monocytes % 7 % Eosinophils % 1 % Basophils % 2 % Neutrophils # 15.1 H (1.3-7.7) k/uL Lymphocytes # 0.5 L (1.0-4.8) k/uL Monocytes # 1.3 H (0-1.0) k/uL Eosinophils # 0.1 (0-0.7) k/uL Basophils # 0.3 H (0-0.2) k/uL Anisocytosis Slight Microcytosis Slight PT (9.0-12.0) sec INR (<1.2) APTT (22.0-30.0) sec Sodium 134 L (137-145) mmol/L Potassium 4.8 (3.5-5.1) mmol/L Chloride 95 L (98-107) mmol/L Carbon Dioxide 27 (22-30) mmol/L Anion Gap 12 mmol/L BUN 39 H (9-20) mg/dL Creatinine 1.28 H (0.66-1.25) mg/dL Est GFR (CKD-EPI)AfAm 60 (>60 ml/min/1.73 sqM) Est GFR (CKD-EPI)NonAf 52 (>60 ml/min/1.73 sqM) Glucose 178 H (74-99) mg/dL Plasma Lactic Acid Dean (0.7-2.0) mmol/L Calcium 9.3 (8.4-10.2) mg/dL Phosphorus 4.1 (2.5-4.5) mg/dL Magnesium 2.1 (1.6-2.3) mg/dL Total Bilirubin 0.8 (0.2-1.3) mg/dL AST 35 (17-59) U/L ALT 24 (4-49) U/L Alkaline Phosphatase 103 (38-126) U/L Troponin I (0.000-0.034) ng/mL NT-Pro-B Natriuret Pep 2350 pg/mL Total Protein 7.0 (6.3-8.2) g/dL Albumin 4.3 (3.5-5.0) g/dL Influenza Type A RNA (Not Detectd) Influenza Type B (PCR) (Not Detectd) 05/16/19 05/16/19 05/16/19 Range/Units 17:39 17:39 17:39 WBC (3.8-10.6) k/uL RBC (4.30-5.90) m/uL Hgb (13.0-17.5) gm/dL Hct (39.0-53.0) % MCV (80.0-100.0) fL MCH (25.0-35.0) pg MCHC (31.0-37.0) g/dL RDW (11.5-15.5) % Plt Count (150-450) k/uL Neutrophils % % Lymphocytes % % Monocytes % % Eosinophils % % Basophils % % Neutrophils # (1.3-7.7) k/uL Lymphocytes # (1.0-4.8) k/uL Monocytes # (0-1.0) k/uL Eosinophils # (0-0.7) k/uL Basophils # (0-0.2) k/uL Anisocytosis Microcytosis PT 11.4 (9.0-12.0) sec INR 1.1 (<1.2) APTT 29.2 (22.0-30.0) sec Sodium (137-145) mmol/L Potassium (3.5-5.1) mmol/L Chloride (98-107) mmol/L Carbon Dioxide (22-30) mmol/L Anion Gap mmol/L BUN (9-20) mg/dL Creatinine (0.66-1.25) mg/dL Est GFR (CKD-EPI)AfAm (>60 ml/min/1.73 sqM) Est GFR (CKD-EPI)NonAf (>60 ml/min/1.73 sqM) Glucose (74-99) mg/dL Plasma Lactic Acid Dean (0.7-2.0) mmol/L Calcium (8.4-10.2) mg/dL Phosphorus (2.5-4.5) mg/dL Magnesium (1.6-2.3) mg/dL Total Bilirubin (0.2-1.3) mg/dL AST (17-59) U/L ALT (4-49) U/L Alkaline Phosphatase (38-126) U/L Troponin I 0.013 (0.000-0.034) ng/mL NT-Pro-B Natriuret Pep pg/mL Total Protein (6.3-8.2) g/dL Albumin (3.5-5.0) g/dL Influenza Type A RNA Not Detected (Not Detectd) Influenza Type B (PCR) Not Detected (Not Detectd) 05/16/19 Range/Units 19:34 WBC (3.8-10.6) k/uL RBC (4.30-5.90) m/uL Hgb (13.0-17.5) gm/dL Hct (39.0-53.0) % MCV (80.0-100.0) fL MCH (25.0-35.0) pg MCHC (31.0-37.0) g/dL RDW (11.5-15.5) % Plt Count (150-450) k/uL Neutrophils % % Lymphocytes % % Monocytes % % Eosinophils % % Basophils % % Neutrophils # (1.3-7.7) k/uL Lymphocytes # (1.0-4.8) k/uL Monocytes # (0-1.0) k/uL Eosinophils # (0-0.7) k/uL Basophils # (0-0.2) k/uL Anisocytosis Microcytosis PT (9.0-12.0) sec INR (<1.2) APTT (22.0-30.0) sec Sodium (137-145) mmol/L Potassium (3.5-5.1) mmol/L Chloride (98-107) mmol/L Carbon Dioxide (22-30) mmol/L Anion Gap mmol/L BUN (9-20) mg/dL Creatinine (0.66-1.25) mg/dL Est GFR (CKD-EPI)AfAm (>60 ml/min/1.73 sqM) Est GFR (CKD-EPI)NonAf (>60 ml/min/1.73 sqM) Glucose (74-99) mg/dL Plasma Lactic Acid Dean 1.1 (0.7-2.0) mmol/L Calcium (8.4-10.2) mg/dL Phosphorus (2.5-4.5) mg/dL Magnesium (1.6-2.3) mg/dL Total Bilirubin (0.2-1.3) mg/dL AST (17-59) U/L ALT (4-49) U/L Alkaline Phosphatase (38-126) U/L Troponin I (0.000-0.034) ng/mL NT-Pro-B Natriuret Pep pg/mL Total Protein (6.3-8.2) g/dL Albumin (3.5-5.0) g/dL Influenza Type A RNA (Not Detectd) Influenza Type B (PCR) (Not Detectd) - EKG Data -: EKG Interpreted by Me (EKG shows rhythm of 65, QRS 114, QTc 478) - Radiology Data Radiology results: report reviewed (Chest X-rays negative for acute disease), image reviewed Disposition Clinical Impression: Diabetic foot ulcer, Weakness, CHF (congestive heart failure), Fever, Fluid overload Disposition: ADMITTED IP TO THIS HOSP Condition: Fair Is patient prescribed a controlled substance at d/c from ED?: No
--- NOTE | 2019-05-16 18:59 | XR ---
EXAMINATION TYPE: XR chest 2V DATE OF EXAM: 05/16/2019 COMPARISON: 05/02/2019 HISTORY: Weakness TECHNIQUE: 2 views FINDINGS: There is coarse interstitial density in the lungs. There is elevated right diaphragm. There are sternal wires. There are old left-sided healed rib fractures. There is no definite pleural effus ion. IMPRESSION: Pulmonary interstitial fibrosis. Chronic elevated right diaphragm. No heart failure. No c hange compared to old exam.
[2019-05-16] MEDS ORDERED: FUROSEMIDE 10 MG/ML 4 ML VIAL IV SCH (19:45)
[2019-05-16] MEDS ORDERED: FAMOTIDINE 20 MG/2 ML VIAL IV STA (20:43)
[2019-05-16] MEDS ORDERED: diphenhydrAMINE 50 MG/ML 1 ML VIAL IVP STA (20:47)
[2019-05-16] MEDS ORDERED: VANCOMYCIN IV PER PHARMACY 1 EACH MISC MISCELLANE PRN (21:03)
[2019-05-16] MEDS ORDERED: LEVOFLOXACIN 750MG-D5W PMX 750 MG in DEXTROSE/WATER 1 150ML.BAG IVPB STA (21:04)
[2019-05-16 21:23] LABS: Glucose,Whole Blood 170 mg/dL (75-99)
--- NOTE | 2019-05-16 21:35 | CT ---
EXAMINATION TYPE: CT brain wo con DATE OF EXAM: 05/16/2019 COMPARISON: 04/20/2018 HISTORY: AMS. SLURRED SPEECH. FACIAL DROOPING CT DLP: 1114.4 mGycm Automated exposure control for dose reduction was used. There is cerebral cortical atrophy. There is no mass effect nor midline shift. There is no sign of in tracranial hemorrhage. The calvarium is intact. There is no evidence of a fracture. There is mucosal thickening right maxillary sinus. IMPRESSION: Cerebral atrophy. No acute intracranial abnormality. Right maxillary sinusitis. No change compared to last exam.
[2019-05-16 22:46] LABS: Glucose,Whole Blood 202 mg/dL (75-99)
[2019-05-16] MEDS: IPRATROPIUM-ALBUTEROL 3 ML NEB INHALATION SCH ×2 (22:56→23:29)
[2019-05-17] MEDS: IPRATROPIUM-ALBUTEROL 3 ML NEB INHALATION SCH ×9 (02:59→23:33)
[2019-05-17] MEDS ORDERED: FUROSEMIDE 40 MG TAB PO SCH (09:00)
[2019-05-17] MEDS ORDERED: FUROSEMIDE 80 MG TAB PO SCH (09:00)
[2019-05-17] MEDS ORDERED: FUROSEMIDE 10 MG/ML 10 ML VIAL IV SCH (09:00)
[2019-05-17] MEDS: LISINOPRIL 5 MG TAB PO SCH (09:10)
[2019-05-17] MEDS: CYANOCOBALAMIN 500 MCG TAB PO SCH (09:10)
[2019-05-17] MEDS: ACETAMINOPHEN TAB 500 MG TAB PO SCH ×2 (09:10→20:55)
[2019-05-17] MEDS: METOPROLOL TARTRATE 12.5 MG TAB PO SCH ×2 (09:10→20:55)
[2019-05-17] MEDS: PANTOPRAZOLE 40 MG TABLET PO SCH (09:10)
[2019-05-17] MEDS: ENOXAPARIN 40 MG/0.4 ML SYRINGE SQ SCH (09:11)
[2019-05-17] MEDS: CLARITHROMYCIN 500 MG TAB PO SCH ×2 (09:30→20:56)
[2019-05-17] MEDS: FLUTICASONE 50MCG/SPRAY NASAL 16GM EA NOSTRIL SCH (09:30)
--- NOTE | 2019-05-17 11:39 | CONS ---
CONSULTATION REASON FOR CONSULT: Renal failure. HISTORY OF PRESENT ILLNESS: Patient is an 84-year-old male who was admitted to the hospital with complaints of increased lower extremity edema, some shortness of breath as well. The patient states he has been voiding well. He denies any prior history of significant kidney diseases. The patient has had a history of kidney cancer, status post partial nephrectomy and splenectomy at [facility]. His serum creatinine is at 1.28 mg/dL. Review of previous labs shows creatinine as high as 1.7 on 04/05/2019. Currently patient is being diuresed. He is maintained on oral Lasix. He is also on a small dose of YUNIEL inhibitors. He is voiding on his own. PAST MEDICAL HISTORY: History of CHF, history of renal cancer status post partial nephrectomy, dyslipidemia, type 2 diabetes, hypertension, coronary artery disease, history of GI bleed, gastroesophageal reflux disease, previous history of pneumonia, history of neuropathy, history of TIA, gastritis, history of BPH, obstructive sleep apnea, history of CKD stage 3, history of paroxysmal atrial fibrillation, mitral and tricuspid regurgitation, history of severe pulmonary hypertension. PAST SURGICAL HISTORY: Partial left nephrectomy, distal pancreatectomy, splenectomy at [facility], coronary artery bypass surgery, colonoscopy, surgery for deviated nasal septum, carpal tunnel release, cataract surgery, laser eye surgery, possible . SOCIAL HISTORY: Negative for smoking, drug abuse or alcohol abuse. PHYSICAL EXAMINATION: On examination, patient is comfortable, awake, not in any acute distress. Blood pressure was 122/61, heart rate 65 per minute. He is afebrile. EXAMINATION OF THE HEART: S1, S2. EXAMINATION OF THE LUNGS: Decreased breath sounds at the bases. Basal crackles are heard. ABDOMEN: Soft, nontender. Examination of lower extremities shows edema 2+ bilaterally with some erythema noted as well. [employer] exam is grossly intact. LABS: Labs show sodium 134, potassium 4.8, chloride 95, CO2 is 27, BUN 39, creatinine 1.28, hemoglobin 10.8 g/dL. ASSESSMENT: 1. Chronic kidney disease NKF stage 3 renal function close to baseline. Creatinine has actually been up to 1.5 in January of 2019. Chest x-ray does not show significant congestive heart failure; however, patient has significant edema and he is prone to have edema from his severe pulmonary hypertension, but patient states that this is worse over the last week or so. I will change his Lasix to IV q.12 hours and we will repeat labs in a.m. No nephrotoxic agents on board at this time. I will continue with the Zestril. 2. History of atrial fibrillation, controlled ventricular response. 3. History of left renal cancer, status post partial nephrectomy on the left side with distal pancreatectomy at [facility]. 4. Chronic kidney disease stage 3 secondary to nephrosclerosis. Check urinalysis. Possible diabetic nephropathy as well. Previous UA showed trace protein in January of 2019. PLAN: Change Lasix to IV q.12 hours. Check urinalysis and repeat labs in a.m. MMODL / IJN: [id number] /
[2019-05-17 11:49] LABS: Glucose,Whole Blood 381 mg/dL (75-99)
[2019-05-17] MEDS: INSULIN ASPART (NovoLOG) 100 UNIT/ML VIAL SQ SCH ×3 (11:56→20:59)
--- NOTE | 2019-05-17 13:23 | P.CRDCN ---
History of Present Illness Consult date: 05/17/19 Requesting physician: Luis Quesada Jr Reason for Consult (text): chf Chief complaint: shortness of breath, lower extremity edema History of present illness: This is a pleasant 83-year-old gentleman who follows Dr. 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 fib with multiple pauses noted on a recent Holter monitor at which time his beta toyin was decreased. He has a history of poor compliance with following a low sodium diet. Presented to the emergency department with complaints of worsening lower extremity edema and worsening shortness of breath. Chest x-ray on admission showed pulmonary interstitial fibrosis, chronic elevated right diaphragm, no heart failure, no change compared to old exam. NT proBNP K Henri to be around 2300. WBC is elevated at 17,600. Patient was found to be afebrile upon admission with a temperature max of 101.3F. The patient has been initiated on IV Lasix by nephrology. He is also been started on antibiotics by primary. Upon examination, patient is sitting up in a chair. He feels his breathing has improved slightly and his edema is improving as well. He was having complaints of dyspnea on exertion, orthopnea or lower extremity edema at home but denies weight gain. He's had no chest discomfort or palpitations. He's had no dizziness, lightheadedness or syncope. Past Medical History Past Medical History: Atrial Fibrillation, Coronary Artery Disease (CAD), Cancer, Heart Failure, COPD, CVA/TIA, Diabetes Mellitus, Eye Disorder, GERD/Refl ux, GI Bleed, Hyperlipidemia, Hypertension, Myocardial Infarction (NC), Osteoarthritis (OA), Pneumonia, Renal Disease, Skin Disorder, Sleep Apnea/CPAP/BIPAP, Vascular Disorder Additional Past Medical History / Comment(s): Pt recently admitted to [facility] on 01/15/19 with osteomylitis, CAP, mild exacerbation CHF, tracheopurulent bronchitis, hypoxic respiratory failure, paroxysmal Afib, moderate mitral and tricuspid regurg and severe pulmonary HTN. Other hx: Anemia, blood and iron transfusions, right leg cellulitis, IDDM type II, neuropathy bilateral hands/feet, chronic diabetic wounds, 2013 L renal cancer with surgery - partial nephrectomy/spleenectomy/distal portion of pancreas removed at [facility], TIA, [place] unknown date, BPH, gastritis, small hiatal hernia, past discitis T9-T10, arthritis bilateral hands/back, TARIQ - does not tolerate his CPAP, CKD stage III/hyperkalemia, UTI, sepsis, PVD. Last Myocardial Infarction Date:: UNKNOWN History of Any Multi-Drug Resistant Organisms: MRSA Date of last positivie culture/infection: 01/17/19 MDRO Source:: RIGHT TOE Past Surgical History: Coronary Bypass/CABG, Heart Catheterization, Orthopedic Surgery Additional Past Surgical History / Comment(s): Partial L nephrectomy, distal pancreatectomy, splenectomy - at [place]2000 CABG - 3 vessel, EGD, colonoscopy, deviated septum surgery, skin/oral lesion removals, R carpal tunnel release, bilateral cataract removal, bilateral laser eye surgery for "leakage", Past Anesthesia/Blood Transfusion Reactions: Previous Problems w/ Anesthesia Additional Past Anesthesia/Blood Transfusion Reaction / Comment(s): 'TROUBLE COMING OUT OF ANESTHESIA' - DELUSIONAL. Patient has received blood in past without reaction. Past Psychological History: Anxiety, Depression Additional Psychological History / Comment(s): Pt resides with his spouse. He has a cane and a walker and a glucometer. He no longer drives, his spouse d fredi and manages his medications. 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 Smoking Status: Never smoker Past Alcohol Use History: Occasional Additional Past Alcohol Use History / Comment(s): Patient states he smoked briefly [id number] and it was only socially. No marijuana or illicit drug use. No alcohol use. Past Drug Use History: None Reported - Past Family History Father Family Medical History: Myocardial Infarction (NC) Additional Family Medical History / Comment(s): Father of a NC at the age of 65yrs. Mother Family Medical History: COPD Medications and Allergies Home Medications Medication Instructions Recorded Confirmed Type Montelukast [Singulair] 10 mg PO HS 12/21/14 05/16/19 History Pravastatin Sodium 40 mg PO HS 02/07/16 05/16/19 History Acetaminophen Tab [Tylenol] 1,000 mg PO BID 03/17/17 05/16/19 History Pantoprazole [Protonix] 40 mg PO DAILY #30 tab 03/21/17 05/16/19 Rx Insulin Aspart [NovoLOG Flexpen] See Protocol SQ AC-TID PRN 11/12/17 05/16/19 History Budesonide-Formot 160-4.5 Mcg 2 puff INHALATION RT-BID 11/13/17 05/16/19 History [Symbicort 160-4.5 Mcg Inhaler] Lisinopril [Zestril] 5 mg PO DAILY 01/26/18 05/16/19 History Escitalopram Oxalate [Lexapro] 10 mg PO HS 04/19/18 05/16/19 History Cyanocobalamin (Vitamin B-12) 1,000 mcg PO TUFR 01/15/19 05/16/19 History [Vitamin B-12] Fluticasone Nasal [place] [Flonase 2 spray EA NOSTRIL DAILY #1 bottle 01/22/19 05/16/19 Rx Nasal [place]] Furosemide [Lasix] 40 mg PO BID #60 tab 01/22/19 05/16/19 Rx Insulin Aspart [NovoLOG Flexpen] 17 units SQ TID-W/MEALS #0 01/22/19 05/16/19 Rx Insulin Detemir [Levemir Flextouch] 60 units SQ HS 02/10/19 05/16/19 History Magnesium Oxide [Mag-Ox] 400 mg PO HS 02/10/19 05/16/19 History Metoprolol Tartrate [Lopressor] 12.5 mg PO BID 02/10/19 05/16/19 History amLODIPine [Norvasc] 10 mg PO HS 04/02/19 05/16/19 History Ipratropium-Albuterol Nebulize 3 ml INHALATION RT-QID 04/03/19 05/16/19 History [Duoneb 0.5 mg-3 mg/3 ml Soln] Clarithromycin [Biaxin] 500 mg PO BID 05/16/19 05/16/19 History Allergies Allergy/AdvReac Type Severity Reaction Status Date / Time Penicillins Allergy Unknown Rash/Hives Verified 05/16/19 20:07 atorvastatin calcium Allergy Unknown Verified 05/16/19 20:07 [From Lipitor] ceftriaxone [From Rocephin] Allergy Rash/Hives Verified 05/16/19 20:51 clonazepam [From Klonopin] Allergy Hallucinati Verified 05/16/19 20:07 ons codeine Allergy Hallucinati Verified 05/16/19 20:07 ons haloperidol [From Haldol] Allergy Hallucinati Verified 05/16/19 20:07 ons haloperidol lactate Allergy Hallucinati Verified 05/16/19 20:07 [From Haldol] ons hydromorphone HCl Allergy Hallucinati Verified 05/16/19 20:07 [From Dilaudid] ons methylphenidate HCl Allergy Hallucinati Verified 05/16/19 20:07 [From Ritalin] ons morphine Allergy Hallucinati Verified 05/16/19 20:07 ons propofol Allergy Hallucinati Verified 05/16/19 20:07 ons quetiapine fumarate Allergy Hallucinati Verified 05/16/19 20:07 [From Seroquel] ons Sulfa (Sulfonamide Allergy Unknown Verified 05/16/19 20:07 Antibiotics) vancomycin Allergy Unknown Verified 05/16/19 20:07 ativan AdvReac Unknown Uncoded 05/16/19 17:28 Physical Exam Vitals: Vital Signs Temp Pulse Pulse Resp BP BP Pulse Ox 05/17/19 11:44 72 05/17/19 11:35 72 05/17/19 09:06 68 05/17/19 08:57 66 05/17/19 08:05 65 17 05/17/19 07:00 97.7 F 65 17 122/61 91 L 05/17/19 03:09 74 05/17/19 02:59 72 05/16/19 23:40 78 16 05/16/19 23:29 74 16 05/16/19 23:00 98.1 F 71 16 125/70 97 05/16/19 22:05 99.2 F 68 20 135/78 94 L 05/16/19 20:12 99.2 F 70 25 H 132/71 94 L 05/16/19 20:00 73 24 138/68 94 L 05/16/19 19:00 68 25 H 140/70 94 L 05/16/19 18:00 70 25 H 133/66 90 L 05/16/19 17:54 77 05/16/19 17:45 25 H 05/16/19 17:37 70 05/16/19 17:26 101.3 F H 67 28 H 133/66 88 L 05/16/19 17:25 94 L 05/16/19 17:14 64 19 Intake and Output 05/16/19 05/17/19 05/17/19 22:59 06:59 14:59 Intake Total 150 Output Total 300 Balance 150 -300 Intake: Intake, IV Titration 150 Amount Levofloxacin 750Mg-D5w 150 Pmx 750 mg In Dextrose/ Water 1 150ml.bag @ 100 mls/hr IVPB Q48H [facility] Rx#: [id number] Output: Urine 300 Other: Voiding Method Urinal Urinal Weight 109.316 kg PHYSICAL EXAMINATION: HEENT: Head is atraumatic, normocephalic. Pupils equal, round. Neck is supple. There is no elevated jugular venous pressure. HEART EXAMINATION: Heart sounds irregularly irregular, S1 and S2 with a systolic murmur. CHEST EXAMINATION: Lungs are clear to auscultation, diminished throughout. No chest wall tenderness is noted on palpation or with deep breathing. ABDOMEN: Soft, nontender. Bowel sounds are heard. No organomegaly noted. EXTREMITIES: 1+ peripheral pulses with evidence of mild lower extremity edema and bilateral lower leg erythema. NEUROLOGIC patient is awake, alert and oriented x3. . Results 05/16/19 17:39 05/16/19 17:39 Cardiac Enzymes 05/16/19 05/16/19 05/17/19 Range/Units 17:39 17:39 00:19 AST 35 (17-59) U/L Troponin I 0.013 0.016 (0.000-0.034) ng/mL 05/17/19 Range/Units 05:33 AST (17-59) U/L Troponin I 0.013 (0.000-0.034) ng/mL Coagulation 05/16/19 Range/Units 17:39 PT 11.4 (9.0-12.0) sec APTT 29.2 (22.0-30.0) sec CBC 05/16/19 Range/Units 17:39 WBC 17.6 H (3.8-10.6) k/uL RBC 3.95 L (4.30-5.90) m/uL Hgb 10.8 L (13.0-17.5) gm/dL Hct 33.3 L (39.0-53.0) % Plt Count 327 (150-450) k/uL Comprehensive Metabolic Panel 05/16/19 Range/Units 17:39 Sodium 134 L (137-145) mmol/L Potassium 4.8 (3.5-5.1) mmol/L Chloride 95 L (98-107) mmol/L Carbon Dioxide 27 (22-30) mmol/L BUN 39 H (9-20) mg/dL Creatinine 1.28 H (0.66-1.25) mg/dL Glucose 178 H (74-99) mg/dL Calcium 9.3 (8.4-10.2) mg/dL AST 35 (17-59) U/L ALT 24 (4-49) U/L Alkaline Phosphatase 103 (38-126) U/L Total Protein 7.0 (6.3-8.2) g/dL Albumin 4.3 (3.5-5.0) g/dL Current Medications Generic Name Dose Route Start Last Admin Trade Name Freq PRN Reason Stop Dose Admin Acetaminophen 1,000 mg 05/17/19 09:00 05/17/19 09:10 Tylenol Tab PO 1,000 mg BID MARSHALL Administration Albuterol/Ipratropium 3 ml 05/16/19 20:00 05/17/19 11:35 Duoneb 0.5 Mg-3 Mg/3 Ml Soln INHALATION 3 ml RT-Q4H MARSHALL Administration Albuterol/Ipratropium 3 ml 05/17/19 12:00 Duoneb 0.5 Mg-3 Mg/3 Ml Soln INHALATION RT-QID [facility]ALL Amlodipine Besylate 10 mg 05/17/19 21:00 Norvasc PO HS MARSHALL Budesonide/Formoterol Fumarate 2 puff 05/17/19 20:00 Symbicort 160-4.5 Mcg Inhaler INHALATION RT-BID MARSHALL Clarithromycin 500 mg 05/17/19 09:00 05/17/19 09:30 Biaxin PO 05/18/19 23:00 500 mg BID MARSHALL Administration Cyanocobalamin 1,000 mcg 05/17/19 09:00 05/17/19 09:10 Vitamin B-12 PO 1,000 mcg TUFR MARSHALL Administration Enoxaparin Sodium 40 mg 05/17/19 09:00 05/17/19 09:11 Lovenox SQ 40 mg DAILY MAR[facility]ALL Administration Escitalopram Oxalate 10 mg 05/17/19 21:00 Lexapro PO HS [facility] Fluticasone Propionate 2 spray 05/17/19 09:00 05/17/19 09:30 Flonase Nasal [place] EA NOSTRIL 2 spray DAILY [facility]ALL Administration Furosemide 40 mg 05/17/19 21:00 Lasix IV Q12HR [facility] Levofloxacin 750 mg/ IV 150 mls @ 100 mls/hr 05/18/19 22:00 Solution IVPB Q48H [facility] Insulin Aspart 0 unit 05/17/19 12:30 05/17/19 11:56 Novolog SQ 11 unit ACHS [facility] Administration Protocol Insulin Detemir 60 unit 05/17/19 21:00 Levemir SQ HS [facility] Lisinopril 5 mg 05/17/19 09:00 05/17/19 09:10 Zestril PO 5 mg DAILY [facility] Administration Magnesium Oxide 400 mg 05/17/19 21:00 Mag-Ox PO HS [facility] Metoprolol Tartrate 12.5 mg 05/17/19 09:00 05/17/19 09:10 Lopressor PO 12.5 mg BID [facility]ALL Administration Montelukast Sodium 10 mg 05/17/19 21:00 Singulair PO HS [facility] Pantoprazole Sodium 40 mg 05/17/19 09:00 05/17/19 09:10 Protonix PO 40 mg AC-BRKFST [facility] Administration Pravastatin Sodium 40 mg 05/17/19 21:00 Pravachol PO HS [facility] Intake and Output 05/16/19 05/17/19 05/17/19 22:59 06:59 14:59 Intake Total 150 Output Total 300 Balance 150 -300 Intake: Intake, IV Titration 150 Amount Levofloxacin 750Mg-D5w 150 Pmx 750 mg In Dextrose/ Water 1 150ml.bag @ 100 mls/hr IVPB Q48H [facility] Rx#: [id number] Output: Urine 300 Other: Voiding Method Urinal Urinal Weight 109.316 kg 05/16/19 17:39 05/16/19 17:39 Assessment and Plan Assessment: #1 symptoms of shortness of breath with lower extremity edema likely related to component of mild acute on chronic systolic congestive heart failure however romi correa also has elevated white blood cell count and was febrile on admission, URI cannot be excluded #2 persistent atrial fibrillation #3 history of CAD with prior CABG #4 history of ischemic cardiomyopathy #5 hypertension #6 hyperlipidemia #7 type 2 diabetes #8 chronic kidney disease, stable Plan: From cardiology perspective, medications were reviewed and will continue the same. Continue IV Lasix per nephrology. Continue to monitor daily weights, intake and output, renal function and electrolytes. We will continue to follow the patient right further recommendations accordingly. STITCH WELDER note has been reviewed, I agree with a documented findings and plan of care. Patient was seen and examined.
[2019-05-17 13:40] LABS: Appearance,Urine Clear (Clear); Bilirubin,Urine Negative (Negative); Blood,Urine Negative (Negative); Color,Urine Light Yellow; Glucose,Urine (UA) 2+ (Negative); Ketones,Urine Negative (Negative); Leukocyte Esterase,Urine Negative (Negative); Nitrite,Urine Negative (Negative); Protein,Urine Negative (Negative); Specific Gravity,Urine 1.009 (1.001-1.035); Urobilinogen,Urine <2.0 mg/dL (<2.0)
[2019-05-17 17:04] LABS: Glucose,Whole Blood 250 mg/dL (75-99)
--- NOTE | 2019-05-17 19:37 | P.HPIM ---
History of Present Illness H&P Date: 05/17/19 Chief Complaint: Shortness of breath lower extremity edema Atrial patient being evaluated for shortness of breath bilateral pedal edema. Mild increased exertional dyspnea. Patient was febrile earlier today. Unclear if this is pulmonary or nature or from diabetic ulcers bilateral extremities Noncompliant diabetic. History of congestive heart failure myocardial infarctio n and COPD. Review of Systems Constitutional: Reports chronic pain, Reports fatigue, Reports fever, Reports malaise Ears, nose, mouth and throat: Reports as per HPI Cardiovascular: Reports chest pain (Chest discomfort is described by patient is mild substernal irritation), Reports high blood pressure, Reports leg edema, Reports orthopnea, Reports shortness of breath Respiratory: Reports sleep apnea (Completely noncompliant with CPAP) Gastrointestinal: Reports as per HPI Genitourinary: Reports as per HPI, Reports nocturia, Reports urinary frequency Musculoskeletal: Reports as per HPI Integumentary: Reports wounds (Bilateral lower extremes right worse than left, anterior tibial wounds) Neurological: Reports as per HPI Psychiatric: Reports as per HPI Endocrine: Reports high blood sugars, Reports nocturia, Reports polydipsia, Reports polyphagia, Reports polyuria Hematologic/Lymphatic: Reports as per HPI Allergic/Immunologic: Reports as per HPI Past Medical History Past Medical History: Atrial Fibrillation, Coronary Artery Disease (CAD), Cancer, Heart Failure, COPD, CVA/TIA, Diabetes Mellitus, Eye Disorder, GERD/Reflux, GI Bleed, Hyperlipidemia, Hypertension, Myocardial Infarction (AR), Osteoarthritis (OA), Pneumonia, Renal Disease, Skin Disorder, Sleep Apnea/CPAP/BIPAP, Vascular Disorder Additional Past Medical History / Comment(s): Pt recently admitted to [facility] on 01/15/19 with osteomylitis, CAP, mild exacerbation CHF, tracheopurulent bronchitis, hypoxic respiratory failure, paroxysmal Afib, moderate mitral and tricuspid regurg and severe pulmonary HTN. Other hx: Anemia, blood and iron transfusions, right leg cellulitis, IDDM type II, neuropathy bilateral hands/feet, chronic diabetic wounds, 2013 L renal cancer with surgery - partial nephrectomy/spleenectomy/distal portion of pancreas removed at [facility], TIA, AR unknown date, BPH, gastritis, small hiatal hernia, past discitis T9-T10, arthritis bilateral hands/back, TRAIQ - does not tolerate his CPAP, CKD stage III/hyperkalemia, UTI, sepsis, PVD. Last Myocardial Infarction Date:: UNKNOWN History of Any Multi-Drug Resistant Organisms: MRSA Date of last positivie culture/infection: 01/17/19 MDRO Source:: RIGHT TOE Past Surgical History: Coronary Bypass/CABG, Heart Catheterization, Orthopedic Surgery Additional Past Surgical History / Comment(s): Partial L nephrectomy, distal pancreatectomy, splenectomy - at [place], 2000 CABG - 3 vessel, EGD, col onoscopy, deviated septum surgery, skin/oral lesion removals, R carpal tunnel release, bilateral cataract removal, bilateral laser eye surgery for "leakage", Past Anesthesia/Blood Transfusion Reactions: Previous Problems w/ Anesthesia Additional Past Anesthesia/Blood Transfusion Reaction / Comment(s): 'TROUBLE COMING OUT OF ANESTHESIA' - DELUSIONAL. Patient has received blood in past without reaction. Past Psychological History: Anxiety, Depression Additional Psychological History / Comment(s): Pt resides with his spouse. He has a cane and a walker and a glucometer. He no longer drives, his spouse drives and manages his medications. 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 Smoking Status: Never smoker Past Alcohol Use History: Occasional Additional Past Alcohol Use History / Comment(s): Patient states he smoked briefly [id number] and it was only socially. No marijuana or illicit drug use. No alcohol use. Past Drug Use History: None Reported - Past Family History Father Family Medical History: Myocardial Infarction (AR) Additional Family Medical History / Comment(s): Father of a AR at the age of 65yrs. Mother Family Medical History: COPD Medications and Allergies Home Medications Medication Instructions Recorded Confirmed Type Montelukast [Singulair] 10 mg PO HS 12/21/14 05/16/19 History Pravastatin Sodium 40 mg PO HS 02/07/16 05/16/19 History Acetaminophen Tab [Tylenol] 1,000 mg PO BID 03/17/17 05/16/19 History Pantoprazole [Protonix] 40 mg PO DAILY #30 tab 03/21/17 05/16/19 Rx Insulin Aspart [NovoLOG Flexpen] See Protocol SQ AC-TID PRN 11/12/17 05/16/19 History Budesonide-Formot 160-4.5 Mcg 2 puff INHALATION RT-BID 11/13/17 05/16/19 History [Symbicort 160-4.5 Mcg Inhaler] Lisinopril [Zestril] 5 mg PO DAILY 01/26/18 05/16/19 History Escitalopram Oxalate [Lexapro] 10 mg PO HS 04/19/18 05/16/19 History Cyanocobalamin (Vitamin B-12) 1,000 mcg PO TUFR 01/15/19 05/16/19 History [Vitamin B-12] Fluticasone Nasal [place] [Flonase 2 spray EA NOSTRIL DAILY #1 bottle 01/22/19 05/16/19 Rx Nasal [place]] Furosemide [Lasix] 40 mg PO BID #60 tab 01/22/19 05/16/19 Rx Insulin Aspart [NovoLOG Flexpen] 17 units SQ TID-W/MEALS #0 01/22/19 05/16/19 Rx Insulin Detemir [Levemir Flextouch] 60 units SQ HS 02/10/19 05/16/19 History Magnesium Oxide [Mag-Ox] 400 mg PO HS 02/10/19 05/16/19 History Metoprolol Tartrate [Lopressor] 12.5 mg PO BID 02/10/19 05/16/19 History amLODIPine [Norvasc] 10 mg PO HS 04/02/19 05/16/19 History Ipratropium-Albuterol Nebulize 3 ml INHALATION RT-QID 04/03/19 05/16/19 History [Duoneb 0.5 mg-3 mg/3 ml Soln] Clarithromycin [Biaxin] 500 mg PO BID 05/16/19 05/16/19 History Allergies Allergy/AdvReac Type Severity Reaction Status Date / Time Penicillins Allergy Unknown Rash/Hives Verified 05/16/19 20:07 atorvastatin calcium Allergy Unknown Verified 05/16/19 20:07 [From Lipitor] ceftriaxone [From Rocephin] Allergy Rash/Hives Verified 05/16/19 20:51 clonazepam [From Klonopin] Allergy Hallucinati Verified 05/16/19 20:07 ons codeine Allergy Hallucinati Verified 05/16/19 20:07 ons haloperidol [From Haldol] Allergy Hallucinati Verified 05/16/19 20:07 ons haloperidol lactate Allergy Hallucinati Verified 05/16/19 20:07 [From Haldol] ons hydromorphone HCl Allergy Hallucinati Verified 05/16/19 20:07 [From Dilaudid] ons methylphenidate HCl Allergy Hallucinati Verified 05/16/19 20:07 [From Ritalin] ons morphine Allergy Hallucinati Verified 05/16/19 20:07 ons propofol Allergy Hallucinati Verified 05/16/19 20:07 ons quetiapine fumarate Allergy Hallucinati Verified 05/16/19 20:07 [From Seroquel] ons Sulfa (Sulfonamide Allergy Unknown Verified 05/16/19 20:07 Antibiotics) vancomycin Allergy Unknown Verified 05/16/19 20:07 ativan AdvReac Unknown Uncoded 05/16/19 17:28 Physical Exam Osteopathic Statement: *. No significant issues noted on an osteopathic structural exam other than those noted in the History and Physical/Consult. Vitals: Vital Signs Temp Pulse Pulse Resp BP BP Pulse Ox 05/17/19 16:00 71 18 05/17/19 15:52 96 05/17/19 15:51 66 05/17/19 15:41 61 05/17/19 14:59 97.5 F L 71 18 115/57 95 05/17/19 11:44 72 05/17/19 11:35 72 05/17/19 09:06 68 05/17/19 08:57 66 05/17/19 08:05 65 17 05/17/19 07:00 97.7 F 65 17 122/61 91 L 05/17/19 03:09 74 05/17/19 02:59 72 05/16/19 23:40 78 16 05/16/19 23:29 74 16 05/16/19 23:00 98.1 F 71 16 125/70 97 05/16/19 22:05 99.2 F 68 20 135/78 94 L 05/16/19 20:12 99.2 F 70 25 H 132/71 94 L 05/16/19 20:00 73 24 138/68 94 L Intake and Output 05/17/19 05/17/19 05/17/19 06:59 14:59 22:59 Intake Total 680 Output Total 300 300 Balance 380 -300 Intake: Oral 680 Output: Urine 300 300 Other: Voiding Method Urinal Urinal # Voids 3 3 Weight 109.316 kg General: [Patient awake, alert and oriented times 3. Patient in no acute distress.] HEENT: [PERRL. EOMI. No pharyngeal erythema or exudate.] Neck: [No adenopathy.] Cardiac: [Heart regular in rate and rhythm. No S3. No S4. No clicks, rubs. No murmur.] Lungs: [Clear to auscultation bilaterally but diminished.] Abdomen: [No mass. No organomegaly. Bowel sounds presnt and normoactive in all 4 quadrants.] Extremes: [2 tibial wounds right worse than the left approximately dime size, 2+ edema bilaterally : [] Musculoskeletal: [No joint erythema, edema or tenderness.] Skin: [No rash.] Neurologic: [No lateralizing deficits. CN II - XII grossly intact.] Lymphatic: [No adenopathy.] Results CBC & Chem 7: 05/16/19 17:39 05/16/19 17:39 Labs: Abnormal Lab Results - Last 24 Hours (Table) 05/16/19 05/16/19 05/17/19 Range/Units 21:18 22:44 11:48 POC Glucose (mg/dL) 170 H 202 H 381 H (75-99) mg/dL Urine Glucose (UA) (Negative) 05/17/19 05/17/19 Range/Units 13:09 16:52 POC Glucose (mg/dL) 250 H (75-99) mg/dL Urine Glucose (UA) 2+ H (Negative) Microbiology - Last 24 Hours (Table) 05/17/19 10:00 Wound Culture - Preliminary Leg - Right 05/17/19 10:00 Anaerobic Culture - Preliminary Leg - Right Thrombosis Risk Factor Assmnt - Choose All That Apply Any of the Below Risk Factors Present?: Yes Each Factor Represents 1 point: Swollen legs (current) Each Risk Factor Represents 2 Points: Age 61-74 years Each Risk Factor Represents 3 Points: Age 75 years or older Other congenital or acquired thrombophilia - If yes, enter type in comment: No Thrombosis Risk Factor Assessment Total Risk Factor Score: 6 Thrombosis Risk Factor Assessment Level: High Risk Assessment and Plan (1) CHF (congestive heart failure) Current Visit: Yes Status: Acute Code(s): I50.9 - HEART FAILURE, UNSPECIFIED SNOMED Code(s): 55653489 (2) Diabetic foot ulcer Current Visit: Yes Status: Acute Code(s): E11.621 - TYPE 2 DIABETES MELLITUS WITH FOOT ULCER; L97.509 - NON-PRESSURE CHRONIC ULCER OTH PRT UNSP FOOT W UNSP SEVERITY SNOMED Code(s): 991610658 (3) Fever Current Visit: Yes Status: Acute Code(s): R50.9 - FEVER, UNSPECIFIED SNOMED Code(s): 839606926 (4) Weakness Current Visit: Yes Status: Acute Code(s): R53.1 - WEAKNESS SNOMED Code(s): 40367312 (5) Acute systolic (congestive) heart failure Current Visit: No Status: Acute Code(s): I50.21 - ACUTE SYSTOLIC (CONGESTIVE) HEART FAILURE SNOMED Code(s): 153453996 (6) Cellulitis Narrative/Plan: Bilateral lower extremes right greater than the left Current Visit: No Status: Acute Code(s): L03.90 - CELLULITIS, UNSPECIFIED SNOMED Code(s): 020999885 Plan: Cardiology consult IV antibiotics for bilateral infiltrates and wounds levofloxacin Wound cultures pending Blood cultures pending Consider infectious disease consult Griffin final wound cultures Noncompliant with CPAP On complaint of diabetes Will follow closely Time with Patient: Greater than 30
[2019-05-17 20:08] LABS: Glucose,Whole Blood 196 mg/dL (75-99)
[2019-05-17] MEDS: SYMBICORT 160-4.5 MCG INHALER INHALATION SCH (20:36)
[2019-05-17] MEDS: MAGNESIUM OXIDE 400 MG TAB PO SCH (20:55)
[2019-05-17] MEDS: amLODIPine 10 MG TAB PO SCH (20:55)
[2019-05-17] MEDS: FUROSEMIDE 10 MG/ML 4 ML VIAL IV SCH (20:55)
[2019-05-17] MEDS: PRAVASTATIN SODIUM 40 MG TAB PO SCH (20:55)
[2019-05-17] MEDS: MONTELUKAST 10 MG TAB PO SCH (20:55)
[2019-05-17] MEDS: ESCITALOPRAM 10 MG TAB PO SCH (20:56)
[2019-05-17] MEDS ORDERED: FUROSEMIDE 10 MG/ML 4 ML VIAL IV SCH (21:00)
[2019-05-17] MEDS ORDERED: INSULIN DETEMIR (LEVEMIR) 100 UNIT/ML SYR SQ SCH ×2 (21:00)
[2019-05-18] MEDS: IPRATROPIUM-ALBUTEROL 3 ML NEB INHALATION SCH ×5 (04:43→19:29)
[2019-05-18 06:30] LABS: Glucose,Whole Blood 50 mg/dL (75-99)
[2019-05-18 06:44] LABS: Glucose,Whole Blood 57 mg/dL (75-99)
[2019-05-18 07:00] LABS: Glucose,Whole Blood 85 mg/dL (75-99)
[2019-05-18] MEDS: INSULIN ASPART (NovoLOG) 100 UNIT/ML VIAL SQ SCH ×4 (07:21→21:16)
[2019-05-18 07:31] LABS: Anisocytosis Slight; Basophils # (A) 0.1 k/uL (0-0.2); Basophils % (A) 1 %; Eosinophils # (A) 0.3 k/uL (0-0.7); Eosinophils % (A) 4 %; HCT 33.1 % (39.0-53.0); HGB 10.2 gm/dL (13.0-17.5); Hypochromasia Slight; Lymphocytes # (A) 0.9 k/uL (1.0-4.8); Lymphocytes % (A) 12 %; MCH 26.5 pg (25.0-35.0); MCHC 30.8 g/dL (31.0-37.0); MCV 86.2 fL (80.0-100.0); Mean Platelet Volume 8.2; Monocytes # (A) 0.8 k/uL (0-1.0); Monocytes % (A) 10 %; Neutrophils # (A) 5.2 k/uL (1.3-7.7); Neutrophils % (A) 69 %; Platelet Count 320 k/uL (150-450); RBC 3.83 m/uL (4.30-5.90); RDW 19.1 % (11.5-15.5); WBC 7.6 k/uL (3.8-10.6)
[2019-05-18] MEDS: LISINOPRIL 5 MG TAB PO SCH (07:43)
[2019-05-18] MEDS: PANTOPRAZOLE 40 MG TABLET PO SCH (07:43)
[2019-05-18] MEDS: ACETAMINOPHEN TAB 500 MG TAB PO SCH ×2 (07:43→21:04)
[2019-05-18] MEDS: METOPROLOL TARTRATE 12.5 MG TAB PO SCH ×2 (07:44→21:06)
[2019-05-18] MEDS: FUROSEMIDE 10 MG/ML 4 ML VIAL IV SCH ×3 (07:44→23:50)
[2019-05-18 07:45] LABS: Albumin 3.9 g/dL (3.5-5.0); Calcium 9.6 mg/dL (8.4-10.2); Potassium 3.9 mmol/L (3.5-5.1); Total Bilirubin 0.6 mg/dL (0.2-1.3); Total Protein 6.7 g/dL (6.3-8.2)
[2019-05-18] MEDS: CLARITHROMYCIN 500 MG TAB PO SCH ×2 (07:45→21:06)
[2019-05-18] MEDS: ENOXAPARIN 40 MG/0.4 ML SYRINGE SQ SCH (07:45)
[2019-05-18] MEDS: FLUTICASONE 50MCG/SPRAY NASAL 16GM EA NOSTRIL SCH (07:45)
[2019-05-18] MEDS: SYMBICORT 160-4.5 MCG INHALER INHALATION SCH ×2 (07:50→19:29)
--- NOTE | 2019-05-18 10:14 | P.PN ---
Subjective Patient is seen in follow-up for chronic kidney disease. Renal function is stable. Edema is gradually improving. Currently maintained on IV Lasix 40 mg twice daily. No vomiting or diarrhea. Oral intake is fair. Vital signs are stable. General: The patient appeared well nourished and normally developed. HEENT: Head exam is unremarkable. Neck is without jugular venous distension. LUNGS: Lungs are clear to auscultation and percussion. Breath sounds decreased. HEART: Rate and Rhythm are regular. First and second heart sounds normal. No mur murs, rubs or gallops. ABDOMEN: Abdominal exam reveals normal bowel sounds. Non-tender and non-dist ended. No evidence of peritonitis. EXTREMITITES: 1+ edema. Objective - Vital Signs Vital signs: Vital Signs Temp 97.6 F 05/18/19 07:00 Pulse 72 05/18/19 08:03 Resp 18 05/18/19 07:43 BP 122/64 05/18/19 07:00 Pulse Ox 93 L 05/18/19 07:00 Intake & Output 05/17/19 05/18/19 05/18/19 18:59 06:59 18:59 Intake Total 680 118 Output Total 600 800 Balance 80 -800 118 Weight 109.316 kg Intake: Oral 680 118 Output: Urine 600 800 Other: Voiding Method Urinal Urinal Toilet Urinal # Voids 3 3 - Labs CBC & Chem 7: 05/18/19 06:42 05/18/19 06:42 Labs: Abnormal Lab Results - Last 24 Hours (Table) 05/17/19 05/17/19 05/17/19 Range/Units 11:48 13:09 16:52 RBC (4.30-5.90) m/uL Hgb (13.0-17.5) gm/dL Hct (39.0-53.0) % MCHC (31.0-37.0) g/dL RDW (11.5-15.5) % Lymphocytes # (1.0-4.8) k/uL Chloride (98-107) mmol/L Carbon Dioxide (22-30) mmol/L BUN (9-20) mg/dL Glucose (74-99) mg/dL POC Glucose (mg/dL) 381 H 250 H (75-99) mg/dL Urine Glucose (UA) 2+ H (Negative) 05/17/19 05/18/19 05/18/19 Range/Units 20:06 06:27 06:42 RBC (4.30-5.90) m/uL Hgb (13.0-17.5) gm/dL Hct (39.0-53.0) % MCHC (31.0-37.0) g/dL RDW (11.5-15.5) % Lymphocytes # (1.0-4.8) k/uL Chloride 96 L (98-107) mmol/L Carbon Dioxide 31 H (22-30) mmol/L BUN 38 H (9-20) mg/dL Glucose 43 L* (74-99) mg/dL POC Glucose (mg/dL) 196 H 50 L (75-99) mg/dL Urine Glucose (UA) (Negative) 05/18/19 05/18/19 Range/Units 06:42 06:43 RBC 3.83 L (4.30-5.90) m/uL Hgb 10.2 L (13.0-17.5) gm/dL Hct 33.1 L (39.0-53.0) % MCHC 30.8 L (31.0-37.0) g/dL RDW 19.1 H (11.5-15.5) % Lymphocytes # 0.9 L (1.0-4.8) k/uL Chloride (98-107) mmol/L Carbon Dioxide (22-30) mmol/L BUN (9-20) mg/dL Glucose (74-99) mg/dL POC Glucose (mg/dL) 57 L (75-99) mg/dL Urine Glucose (UA) (Negative) Microbiology - Last 24 Hours (Table) 05/17/19 10:00 Gram Stain - Preliminary Leg - Right Wound Culture - Preliminary Presumptive MRSA 05/16/19 18:58 Blood Culture - Preliminary Blood No Growth after 24 hours 05/17/19 10:00 Anaerobic Culture - Preliminary Leg - Right Assessment and Plan Plan: Assessment: 1. Chronic kidney disease stage III secondary to cardiorenal syndrome. Renal function stable. Creatinine 1.22 today. UA benign. 2. History of left renal cancer status post partial nephrectomy. 3. Insulin-dependent diabetes mellitus. 4. Volume overload. 5. Acute on chronic systolic CHF with ejection fraction of 45-50% with mild to moderate mitral regurgitation. 6. Hypertension with chronic kidney disease. Controlled. Plan: Maintain IV Lasix 40 mg twice daily - can change to oral 40 mg twice daily upon discharge. Low-salt diet. Continue to monitor renal function and urine output.
[2019-05-18 11:35] LABS: Glucose,Whole Blood 216 mg/dL (75-99)
--- NOTE | 2019-05-18 12:16 | P.PN ---
Subjective Progress Note Date: 05/18/19 Principal diagnosis: Bilateral lower extreme cellulitis, MRSA Presumptive wound culture back suspected methicillin resistant staph, switching from Levaquin to daptomycin. Patient awake alert vital signs are stable. Objective - Vital Signs Vital signs: Vital Signs Temp 97.6 F 05/18/19 07:00 Pulse 74 05/18/19 11:42 Resp 18 05/18/19 07:43 BP 122/64 05/18/19 07:00 Pulse Ox 93 L 05/18/19 07:00 Intake & Output 05/17/19 05/18/19 05/18/19 18:59 06:59 18:59 Intake Total 680 118 Output Total 600 800 Balance 80 -800 118 Weight 109.316 kg Intake: Oral 680 118 Output: Urine 600 800 Other: Voiding Method Urinal Urinal Toilet Urinal # Voids 3 3 - Exam General: [Patient awake, alert and oriented times 3. Patient in no acute distress.] HEENT: [PERRL. EOMI. No pharyngeal erythema or exudate.] Neck: [No adenopathy.] Cardiac: [Heart regular in rate and rhythm. No S3. No S4. No clicks, rubs. No murmur.] Lungs: [Clear to auscultation bilaterally.] Abdomen: [No mass. No organomegaly. Bowel sounds presnt and normoactive in all 4 quadrants.] Extremes: [Bilateral edema improved, bilateral anterior tibial wounds dime size appeared to be healing] : [] Musculoskeletal: [No joint erythema, edema or tenderness.] Skin: [No rash.] Neurologic: [No lateralizing deficits. CN II - XII grossly intact.] Lymphatic: [No adenopathy.] - Labs CBC & Chem 7: 05/18/19 06:42 05/18/19 06:42 Labs: Abnormal Lab Results - Last 24 Hours (Table) 05/17/19 05/17/19 05/17/19 Range/Units 13:09 16:52 20:06 RBC (4.30-5.90) m/uL Hgb (13.0-17.5) gm/dL Hct (39.0-53.0) % MCHC (31.0-37.0) g/dL RDW (11.5-15.5) % Lymphocytes # (1.0-4.8) k/uL Chloride (98-107) mmol/L Carbon Dioxide (22-30) mmol/L BUN (9-20) mg/dL Glucose (74-99) mg/dL POC Glucose (mg/dL) 250 H 196 H (75-99) mg/dL Urine Glucose (UA) 2+ H (Negative) 05/18/19 05/18/19 05/18/19 Range/Units 06:27 06:42 06:42 RBC 3.83 L (4.30-5.90) m/uL Hgb 10.2 L (13.0-17.5) gm/dL Hct 33.1 L (39.0-53.0) % MCHC 30.8 L (31.0-37.0) g/dL RDW 19.1 H (11.5-15.5) % Lymphocytes # 0.9 L (1.0-4.8) k/uL Chloride 96 L (98-107) mmol/L Carbon Dioxide 31 H (22-30) mmol/L BUN 38 H (9-20) mg/dL Glucose 43 L* (74-99) mg/dL POC Glucose (mg/dL) 50 L (75-99) mg/dL Urine Glucose (UA) (Negative) 05/18/19 05/18/19 Range/Units 06:43 11:34 RBC (4.30-5.90) m/uL Hgb (13.0-17.5) gm/dL Hct (39.0-53.0) % MCHC (31.0-37.0) g/dL RDW (11.5-15.5) % Lymphocytes # (1.0-4.8) k/uL Chloride (98-107) mmol/L Carbon Dioxide (22-30) mmol/L BUN (9-20) mg/dL Glucose (74-99) mg/dL POC Glucose (mg/dL) 57 L 216 H (75-99) mg/dL Urine Glucose (UA) (Negative) Microbiology - Last 24 Hours (Table) 05/17/19 10:00 Gram Stain - Preliminary Leg - Right Wound Culture - Preliminary Presumptive MRSA 05/16/19 18:58 Blood Culture - Preliminary Blood No Growth after 24 hours 05/17/19 10:00 Anaerobic Culture - Preliminary Leg - Right Assessment and Plan (1) CHF (congestive heart failure) Current Visit: Yes Status: Acute Code(s): I50.9 - HEART FAILURE, UNSPECIFIED SNOMED Code(s): 02969024 (2) Diabetic foot ulcer Current Visit: Yes Status: Acute Code(s): E11.621 - TYPE 2 DIABETES MELLITUS WITH FOOT ULCER; L97.509 - NON-PRESSURE CHRONIC ULCER OTH PRT UNSP FOOT W UNSP SEVERITY SNOMED Code(s): 349051012 (3) Fever Current Visit: Yes Status: Acute Code(s): R50.9 - FEVER, UNSPECIFIED SNOMED Code(s): 332060343 (4) Weakness Current Visit: Yes Status: Acute Code(s): R53.1 - WEAKNESS SNOMED Code(s): 11927669 (5) Acute systolic (congestive) heart failure Current Visit: No Status: Acute Code(s): I50.21 - ACUTE SYSTOLIC (ERIC ESTIVE) HEART FAILURE SNOMED Code(s): 143436588 (6) Cellulitis Narrative/Plan: Bilateral lower extremes right greater than the left improved Current Visit: No Status: Acute Code(s): L03.90 - CELLULITIS, UNSPECIFIED SNOMED Code(s): 235422500 Plan: Cardiology consult IV antibiotics changed to daptomycin Wound cultures final pending Blood cultures pending Consider infectious disease consult Noncompliant with CPAP On complaint of diabetes Will follow closely Time with Patient: Greater than 30
[2019-05-18] MEDS: DAPTOmycin 500 MG in SODIUM CHLORIDE 0.9% 50 ML IVPB SCH (13:58)
--- NOTE | 2019-05-18 14:18 | PN ---
PROGRESS NOTE This gentleman has history of fever. There is an infected wound on the right leg. Possibility of MRSA is being considered. The patient has a reduced ejection fraction. Acute on chronic renal failure. He has some shortness of breath. Vitals are stable. There is JVD of 1 cm. No carotid bruit. S1-S2 heard normally. Lungs reveal diminished air entry with fine rales on both bases. Abdomen is soft. Lower extremities reveal some cellulitis changes and edema. I am recommending that we increase the Lasix to q.8 hours. Check a BMP tomorrow. Continue all other medications as before. Prognosis remains guarded. MMODL / IJN: [id number] /
[2019-05-18 17:00] LABS: Glucose,Whole Blood 110 mg/dL (75-99)
[2019-05-18 20:32] LABS: Glucose,Whole Blood 147 mg/dL (75-99)
[2019-05-18] MEDS ORDERED: INSULIN DETEMIR (LEVEMIR) 100 UNIT/ML SYR SQ SCH (21:00)
[2019-05-18] MEDS: amLODIPine 10 MG TAB PO SCH (21:06)
[2019-05-18] MEDS: MONTELUKAST 10 MG TAB PO SCH (21:06)
[2019-05-18] MEDS: ESCITALOPRAM 10 MG TAB PO SCH (21:06)
[2019-05-18] MEDS: PRAVASTATIN SODIUM 40 MG TAB PO SCH (21:06)
[2019-05-18] MEDS: MAGNESIUM OXIDE 400 MG TAB PO SCH (21:07)
[2019-05-18] MEDS ORDERED: LEVOFLOXACIN 750MG-D5W PMX 750 MG in DEXTROSE/WATER 1 150ML.BAG IVPB SCH (22:00)
--- NOTE | 2019-05-18 22:29 | CONS ---
CONSULTATION DATE OF SERVICE: 05/18/2019. REASON FOR CONSULTATION: Right leg wound and peritonitis. HISTORY OF PRESENT ILLNESS: The patient is 84-year-old male presenting to the ER at [facility] May 16 with chief complaints of increasing shortness of breath. The patient's breathing has been getting worse over the last few days before presentation to hospital, the patient also was complaining of increasing swelling in the lower extremity. The patient has developed a small blister on the right leg that has subsequently opened up creating some superficial ulceration with some redness into the leg area. However, the patient denies having any pain to the leg because of underlying neuropathy. The patient on presentation to the hospital have a fever of 101.3 degrees Fahrenheit and he did have elevated white count of 17.6. The patient did have influenza serology that was negative. UA was negative. The patient did have a chest x- ray shows pulmonary interstitial fibrosis, chronic elevated right side diaphragm. No heart failure which is unchanged compared to old exam. The patient was treated with Levaquin and he did have blood cultures obtained from his right leg wound which has been finalized with presumptive MRSA. Antibiotic was switched to daptomycin. Infectious Disease was consulted for further recommendations regarding antibiotic therapy. The patient has no fever for the last 48 hours. He is breathing more comfortably. Denies having any chest pain. Minimal cough. No sputum production. No nausea, no vomiting. No abdominal pain. No pain to the right leg area. REVIEW OF SYSTEMS: Positive points have been mentioned in HPI. Rest of the systems are negative. PAST MEDICAL HISTORY: Past medical history significant for atrial fibrillation, coronary artery disease, COPD, CVA, TIA, diabetes mellitus, gastroesophageal reflux disease, hyperlipidemia, hypertension, NE, osteoarthritis, pneumonia, renal insufficiency, previous history of MRSA infection. PAST SURGICAL HISTORY: Coronary artery bypass grafting, heart catheterization, partial left nephrectomy, distal pancreatectomy, splenectomy, coronary artery bypass grafting, bilateral cataract surgery. SOCIAL HISTORY: No history of smoking. Occasionally drinks. No drug use. FAMILY HISTORY: Father with history of NE. Mother history of COPD. ALLERGIES: TO MULTIPLE MEDICATIONS INCLUDE PENICILLIN, CEPHALOSPORIN, ALLOPURINOL NOTED ON THE CHART. MEDICATION: Currently include the patient is on Tylenol, DuoNeb, Norvasc, Symbicort, clarithromycin, vitamin B12, daptomycin, Lovenox, Lexapro, Lasix, NovoLog. Levemir, Zestril, Mag oxide, Lopressor, Singulair, Protonix, Pravachol. PHYSICAL EXAMINATION: Blood pressure is 122/64 with a pulse of 54. Temperature 97.6. He is 93% on room air. General description is an elderly male up in the chair in no distress. No tachypnea or accessory muscle of respiration use. HEENT: Shows slight pallor. No scleral icterus. Oral mucosa is dry. No significant erythema or thrush. Neck: Trachea central. No thyromegaly. Lungs unlabored breathing, decreased breath sounds in the bases. No wheeze or crackles. Heart S1, S2. Regular rate and rhythm. ABDOMEN: Soft, no tenderness. No guarding or rigidity. EXTREMITIES with 2+ edema feet. Right leg did have minimal redness small wound. No purulent drainage or no tenderness. Neurological: Patient is awake, alert, oriented times three. Mood and affect normal. LABS: Hemoglobin is 10.2, white count of 17.2on admission. BUN is 38, creatinine is 1.22, admission creatinine was 1.28. Liver enzymes are normal. Urine is negative. Influenza serology was negative. Wound culture with presumptive MRSA. Blood cultures have been negative so far. DIAGNOSTIC IMPRESSION AND PLAN: Patient with admission to hospital with sepsis in this patient who did have a fever, elevated white count with respiratory system. However, chest x-ray was negative for any pneumonia. The patient did have lower extremity swelling and redness with a small wound culture positive for MRSA, possibly the source of his sepsis. PLAN: 1. The patient is on daptomycin 5 mg a day to continue while waiting for the sensitivity of this pathogen to determine the discharge antibiotic. 2. . 3. Repeat chest x-ray PA and lateral. 4. We will follow up on clinical condition and culture to further adjust medication if needed. Thank you for this consultation. We will follow the patient along with you. MMODL / IJN: [id number] /
[2019-05-19] MEDS: IPRATROPIUM-ALBUTEROL 3 ML NEB INHALATION SCH ×6 (02:53→19:41)
[2019-05-19 06:57] LABS: Glucose,Whole Blood 69 mg/dL (75-99)
[2019-05-19 07:18] LABS: Glucose,Whole Blood 69 mg/dL (75-99)
[2019-05-19 07:35] LABS: Glucose,Whole Blood 110 mg/dL (75-99)
[2019-05-19] MEDS: METOPROLOL TARTRATE 12.5 MG TAB PO SCH ×2 (07:38→22:34)
[2019-05-19] MEDS: ENOXAPARIN 40 MG/0.4 ML SYRINGE SQ SCH (07:38)
[2019-05-19] MEDS: LISINOPRIL 5 MG TAB PO SCH (07:39)
[2019-05-19] MEDS: FLUTICASONE 50MCG/SPRAY NASAL 16GM EA NOSTRIL SCH (07:39)
[2019-05-19] MEDS: ACETAMINOPHEN TAB 500 MG TAB PO SCH ×2 (07:39→22:41)
[2019-05-19] MEDS: PANTOPRAZOLE 40 MG TABLET PO SCH (07:39)
[2019-05-19] MEDS: INSULIN ASPART (NovoLOG) 100 UNIT/ML VIAL SQ SCH ×4 (07:40→22:13)
[2019-05-19] MEDS: FUROSEMIDE 10 MG/ML 4 ML VIAL IV SCH (07:40)
[2019-05-19 08:04] LABS: Anisocytosis Slight; Basophils % (A) 0 %; Eosinophils # (A) 0.3 k/uL (0-0.7); Eosinophils % (A) 3 %; HCT 32.7 % (39.0-53.0); HGB 10.5 gm/dL (13.0-17.5); Hypochromasia Slight; Lymphocytes # (A) 0.7 k/uL (1.0-4.8); Lymphocytes % (A) 7 %; MCH 27.6 pg (25.0-35.0); MCHC 32.1 g/dL (31.0-37.0); Monocytes # (A) 0.7 k/uL (0-1.0); Monocytes % (A) 7 %; Neutrophils % (A) 80 %; Platelet Count 362 k/uL (150-450); RDW 18.8 % (11.5-15.5)
[2019-05-19 08:09] LABS: Albumin 4.2 g/dL (3.5-5.0); Calcium 9.7 mg/dL (8.4-10.2); Magnesium 2.2 mg/dL (1.6-2.3); Potassium 4.1 mmol/L (3.5-5.1); Total Bilirubin 0.5 mg/dL (0.2-1.3)
[2019-05-19] MEDS: SYMBICORT 160-4.5 MCG INHALER INHALATION SCH ×2 (08:35→20:22)
--- NOTE | 2019-05-19 11:24 | P.PN ---
Subjective Patient is seen in follow-up for chronic kidney disease. Renal function is stable. Edema is gradually improved. Currently maintained on IV Lasix 40 mg twice daily. No vomiting or diarrhea. Oral intake is fair. Vital signs are stable. General: The patient appeared well nourished and normally developed. HEENT: Head exam is unremarkable. Neck is without jugular venous distension. LUNGS: Lungs are clear to auscultation and percussion. Breath sounds decreased. HEART: Rate and Rhythm are regular. First and second heart sounds normal. No murmurs, rubs or gallops. ABDOMEN: Abdominal exam reveals normal bowel sounds. Non-tender and non-diste nded. No evidence of peritonitis. EXTREMITITES: 1+ edema. Objective - Vital Signs Vital signs: Vital Signs Temp 97.8 F 05/19/19 07:00 Pulse 52 L 05/19/19 08:47 Resp 18 05/19/19 07:46 BP 117/55 05/19/19 07:00 Pulse Ox 95 05/19/19 07:00 Intake & Output 05/18/19 05/19/19 05/19/19 18:59 06:59 18:59 Intake Total 562 Output Total 2030 Balance 562 -2030 Intake: Oral 562 Output: Urine 2030 Other: Voiding Method Toilet Toilet Toilet Urinal Urinal Urinal # Voids 2 1 - Labs CBC & Chem 7: 05/19/19 07:07 05/19/19 07:07 Labs: Abnormal Lab Results - Last 24 Hours (Table) 05/18/19 05/18/19 05/18/19 Range/Units 11:34 16:58 20:30 RBC (4.30-5.90) m/uL Hgb (13.0-17.5) gm/dL Hct (39.0-53.0) % RDW (11.5-15.5) % Neutrophils # (1.3-7.7) k/uL Lymphocytes # (1.0-4.8) k/uL Chloride (98-107) mmol/L Carbon Dioxide (22-30) mmol/L BUN (9-20) mg/dL Creatinine (0.66-1.25) mg/dL Glucose (74-99) mg/dL POC Glucose (mg/dL) 216 H 110 H 147 H (75-99) mg/dL 05/19/19 05/19/19 05/19/19 Range/Units 06:53 07:07 07:07 RBC 3.80 L (4.30-5.90) m/uL Hgb 10.5 L (13.0-17.5) gm/dL Hct 32.7 L (39.0-53.0) % RDW 18.8 H (11.5-15.5) % Neutrophils # 8.0 H (1.3-7.7) k/uL Lymphocytes # 0.7 L (1.0-4.8) k/uL Chloride 96 L (98-107) mmol/L Carbon Dioxide 31 H (22-30) mmol/L BUN 40 H (9-20) mg/dL Creatinine 1.27 H (0.66-1.25) mg/dL Glucose 48 L* (74-99) mg/dL POC Glucose (mg/dL) 69 L (75-99) mg/dL 05/19/19 05/19/19 Range/Units 07:16 07:34 RBC (4.30-5.90) m/uL Hgb (13.0-17.5) gm/dL Hct (39.0-53.0) % RDW (11.5-15.5) % Neutrophils # (1.3-7.7) k/uL Lymphocytes # (1.0-4.8) k/uL Chloride (98-107) mmol/L Carbon Dioxide (22-30) mmol/L BUN (9-20) mg/dL Creatinine (0.66-1.25) mg/dL Glucose (74-99) mg/dL POC Glucose (mg/dL) 69 L 110 H (75-99) mg/dL Microbiology - Last 24 Hours (Table) 05/17/19 19:47 Blood Culture - Preliminary Blood No Growth after 24 hours 05/16/19 18:58 Blood Culture - Preliminary Blood No Growth after 48 hours 05/17/19 10:00 Gram Stain - Preliminary Leg - Right Wound Culture - Preliminary Presumptive MRSA Assessment and Plan Plan: Assessment: 1. Chronic kidney disease stage III secondary to cardiorenal syndrome. Renal function stable. Creatinine 1.27 today. UA benign. 2. History of left renal cancer status post partial nephrectomy. 3. Insulin-dependent diabetes mellitus. 4. Volume overload. 5. Acute on chronic systolic CHF with ejection fraction of 45-50% with mild to moderate mitral regurgitation. 6. Hypertension with chronic kidney disease. Controlled. Plan: Change Lasix to 40 mg orally twice daily. Low-salt diet. Continue to monitor renal function and urine output.
[2019-05-19 11:51] LABS: Glucose,Whole Blood 129 mg/dL (75-99)
--- NOTE | 2019-05-19 12:20 | P.PN ---
Subjective Progress Note Date: 05/19/19 Principal diagnosis: Bilateral lower extreme cellulitis, MRSA Presumptive wound culture back suspected methicillin resistant staph, switching from Levaquin to daptomycin. Patient awake alert vital signs are stable. 05/19/2019 as above, presumptive wound cultures back suspected methicillin- resistant staph we'll continue on daptomycin at this time until pending culture sensitivity finalize. Patient is awake and alert vital signs are stable Objective - Vital Signs Vital signs: Vital Signs Temp 97.8 F 05/19/19 07:00 Pulse 52 L 05/19/19 08:47 Resp 18 05/19/19 07:46 BP 117/55 05/19/19 07:00 Pulse Ox 95 05/19/19 07:00 Intake & Output 05/18/19 05/19/19 05/19/19 18:59 06:59 18:59 Intake Total 562 Output Total 2029 300 Balance 562 -2029300 Intake: Oral 562 Output: Urine 2029 300 Other: Voiding Method Toilet Toilet Toilet Urinal Urinal Urinal # Voids 2 1 1 - Exam General: [Patient awake, alert and oriented times 3. Patient in no acute distress.] HEENT: [PERRL. EOMI. No pharyngeal erythema or exudate.] Neck: [No adenopathy.] Cardiac: [Heart regular in rate and rhythm. No S3. No S4. No clicks, rubs. No murmur.] Lungs: [Clear to auscultation bilaterally.] Abdomen: [No mass. No organomegaly. Bowel sounds presnt and normoactive in all 4 quadrants.] Extremes: [Bilateral edema resolved. Erythema is improving, bilateral anterior tibial wounds dime size appeared to be healing] : [] Musculoskeletal: [No joint erythema, edema or tenderness.] Skin: [No rash.] Neurologic: [No lateralizing deficits. CN II - XII grossly intact.] Lymphatic: [No adenopathy.] - Labs CBC & Chem 7: 05/19/19 07:07 05/19/19 07:07 Labs: Abnormal Lab Results - Last 24 Hours (Table) 05/18/19 05/18/19 05/19/19 Range/Units 16:58 20:30 06:53 RBC (4.30-5.90) m/uL Hgb (13.0-17.5) gm/dL Hct (39.0-53.0) % RDW (11.5-15.5) % Neutrophils # (1.3-7.7) k/uL Lymphocytes # (1.0-4.8) k/uL Chloride (98-107) mmol/L Carbon Dioxide (22-30) mmol/L BUN (9-20) mg/dL Creatinine (0.66-1.25) mg/dL Glucose (74-99) mg/dL POC Glucose (mg/dL) 110 H 147 H 69 L (75-99) mg/dL 05/19/19 05/19/19 05/19/19 Range/Units 07:07 07:07 07:16 RBC 3.80 L (4.30-5.90) m/uL Hgb 10.5 L (13.0-17.5) gm/dL Hct 32.7 L (39.0-53.0) % RDW 18.8 H (11.5-15.5) % Neutrophils # 8.0 H (1.3-7.7) k/uL Lymphocytes # 0.7 L (1.0-4.8) k/uL Chloride 96 L (98-107) mmol/L Carbon Dioxide 31 H (22-30) mmol/L BUN 40 H (9-20) mg/dL Creatinine 1.27 H (0.66-1.25) mg/dL Glucose 48 L* (74-99) mg/dL POC Glucose (mg/dL) 69 L (75-99) mg/dL 05/19/19 05/19/19 Range/Units 07:34 11:50 RBC (4.30-5.90) m/uL Hgb (13.0-17.5) gm/dL Hct (39.0-53.0) % RDW (11.5-15.5) % Neutrophils # (1.3-7.7) k/uL Lymphocytes # (1.0-4.8) k/uL Chloride (98-107) mmol/L Carbon Dioxide (22-30) mmol/L BUN (9-20) mg/dL Creatinine (0.66-1.25) mg/dL Glucose (74-99) mg/dL POC Glucose (mg/dL) 110 H 129 H (75-99) mg/dL Microbiology - Last 24 Hours (Table) 05/17/19 10:00 Anaerobic Culture - Preliminary Leg - Right 05/17/19 19:47 Blood Culture - Preliminary Blood No Growth after 24 hours 05/16/19 18:58 Blood Culture - Preliminary Blood No Growth after 48 hours 05/17/19 10:00 Gram Stain - Preliminary Leg - Right Wound Culture - Preliminary Presumptive MRSA Assessment and Plan (1) CHF (congestive heart failure) Current Visit: Yes Status: Acute Code(s): I50.9 - HEART FAILURE, UNSPECIFIED SNOMED Code(s): 03707514 (2) Diabetic foot ulcer Current Visit: Yes Status: Acute Code(s): E11.621 - TYPE 2 DIABETES MELLITUS WITH FOOT ULCER; L97.509 - NON-PRESSURE CHRONIC ULCER OTH PRT UNSP FOOT W UNSP SEVERITY SNOMED Code(s): 456135659 (3) Fever Current Visit: Yes Status: Acute Code(s): R50.9 - FEVER, UNSPECIFIED SNOMED Code(s): 497722942 (4) Weakness Current Visit: Yes Status: Acute Code(s): R53.1 - WEAKNESS SNOMED Code(s): 11109538 (5) Acute systolic (congestive) heart failure Current Visit: No Status: Acute Code(s): I50.21 - ACUTE SYSTOLIC (CONGESTIVE) HEART FAILURE SNOMED Code(s): 870231422 (6) Cellulitis Current Visit: No Status: Acute Code(s): L03.90 - CELLULITIS, UNSPECIFIED SNOMED Code(s): 383822351 Plan: Cardiology consult IV antibiotics changed to daptomycin Wound cultures final pending Blood cultures pending Consider infectious disease consult Noncompliant with CPAP On complaint of diabetes Will follow closely Time with Patient: Greater than 30
[2019-05-19] MEDS: DAPTOmycin 500 MG in SODIUM CHLORIDE 0.9% 50 ML IVPB SCH (13:37)
[2019-05-19] MEDS: FUROSEMIDE 40 MG TAB PO SCH (16:20)
[2019-05-19 16:49] LABS: Glucose,Whole Blood 124 mg/dL (75-99)
[2019-05-19] MEDS ORDERED: IPRATROPIUM-ALBUTEROL 3 ML NEB INHALATION PRN (19:41)
[2019-05-19 21:55] LABS: Glucose,Whole Blood 122 mg/dL (75-99)
[2019-05-19] MEDS: INSULIN DETEMIR (LEVEMIR) 100 UNIT/ML SYR SQ SCH (22:14)
[2019-05-19] MEDS: ESCITALOPRAM 10 MG TAB PO SCH (22:34)
[2019-05-19] MEDS: MONTELUKAST 10 MG TAB PO SCH (22:34)
[2019-05-19] MEDS: MAGNESIUM OXIDE 400 MG TAB PO SCH (22:35)
[2019-05-19] MEDS: amLODIPine 10 MG TAB PO SCH (22:35)
[2019-05-19] MEDS: PRAVASTATIN SODIUM 40 MG TAB PO SCH (22:35)
--- NOTE | 2019-05-19 23:44 | PN ---
PROGRESS NOTE DATE OF SERVICE: 05/19/2019. REASON FOR FOLLOWUP: Right leg MRSA cellulitis. INTERVAL HISTORY: The patient is currently afebrile, has been breathing comfortably. However, the patient complaining of more shortness of breath and cough with sputum production than yesterday. No nausea, vomiting. No abdominal pain or pain to the lower extremity. PHYSICAL EXAMINATION: Blood pressure is 132/61 with pulse 73, temperature is 99, he is 93% on 2 L nasal cannula. General description is an elderly male up in the chair in no distress. Respiratory system: Unlabored breathing. Decreased breath sounds in the bases. No wheeze. Heart S1, S2. Regular rate and rhythm. Abdomen soft. No tenderness. Legs are currently wrapped up. No obvious drainage on the dressing. LABORATORY DATA: Hemoglobin is 10.5, white count 10, BUN of 14, creatinine 1.27. DIAGNOSTIC IMPRESSION AND PLAN: Patient admitted to hospital with increasing shortness of breath along with lower extremity swelling, small wound on the right leg in this patient who did have a wound culture positive for MRSA. The patient is currently covered with Daptomycin to continue in view of his worsening cough. A chest x-ray will be repeated and monitor his clinical course closely. MMODL / IJN: [id number] /
[2019-05-20 07:08] LABS: Glucose,Whole Blood 113 mg/dL (75-99)
--- NOTE | 2019-05-20 07:18 | XR ---
EXAMINATION TYPE: XR chest 2V DATE OF EXAM: 05/20/2019 COMPARISON: 05/16/2019 HISTORY: Clinical pneumonia. Follow-up exam. Shortness of breath. TECHNIQUE: Frontal and lateral views of the chest are obtained. FINDINGS: Linear retrocardiac opacity seen with air bronchograms. This is better appreciated on the current exam than the prior given better inspiration. Chronic right hemidiaphragm elevation is seen. Old healed left rib fractures are noted laterally. Cardiomediastinal silhouette is enlarged with post CABG change. Mild degenerative change of the spine. Cholecystectomy clips are seen. IMPRESSION: Retrocardiac opacity with air bronchograms is better visualized on today's exam than the prior corresponding the patient's clinical pneumonia.
[2019-05-20 07:38] LABS: Anisocytosis Slight; Basophils % (A) 0 %; Eosinophils # (A) 0.2 k/uL (0-0.7); Eosinophils % (A) 2 %; HCT 33.6 % (39.0-53.0); HGB 10.2 gm/dL (13.0-17.5); Lymphocytes # (A) 0.8 k/uL (1.0-4.8); Lymphocytes % (A) 8 %; MCH 26.1 pg (25.0-35.0); MCHC 30.4 g/dL (31.0-37.0); MCV 85.7 fL (80.0-100.0); Mean Platelet Volume 8.4; Monocytes # (A) 0.9 k/uL (0-1.0); Monocytes % (A) 8 %; Neutrophils # (A) 8.4 k/uL (1.3-7.7); Neutrophils % (A) 80 %; Platelet Count 321 k/uL (150-450); RBC 3.92 m/uL (4.30-5.90); RDW 18.9 % (11.5-15.5); WBC 10.5 k/uL (3.8-10.6)
[2019-05-20 07:59] LABS: Calcium 9.6 mg/dL (8.4-10.2); Magnesium 2.3 mg/dL (1.6-2.3); Potassium 4.2 mmol/L (3.5-5.1); Total Bilirubin 0.9 mg/dL (0.2-1.3); Total Protein 6.9 g/dL (6.3-8.2)
[2019-05-20] MEDS: INSULIN ASPART (NovoLOG) 100 UNIT/ML VIAL SQ SCH ×4 (08:09→21:37)
[2019-05-20] MEDS: ACETAMINOPHEN TAB 500 MG TAB PO SCH ×2 (08:14→21:36)
[2019-05-20] MEDS: LISINOPRIL 5 MG TAB PO SCH (08:15)
[2019-05-20] MEDS: FLUTICASONE 50MCG/SPRAY NASAL 16GM EA NOSTRIL SCH (08:15)
[2019-05-20] MEDS: FUROSEMIDE 40 MG TAB PO SCH ×2 (08:15→15:41)
[2019-05-20] MEDS: PANTOPRAZOLE 40 MG TABLET PO SCH (08:15)
[2019-05-20] MEDS: METOPROLOL TARTRATE 12.5 MG TAB PO SCH ×2 (08:15→21:37)
[2019-05-20] MEDS: ENOXAPARIN 40 MG/0.4 ML SYRINGE SQ SCH (08:15)
[2019-05-20] MEDS: IPRATROPIUM-ALBUTEROL 3 ML NEB INHALATION SCH ×4 (08:27→21:20)
[2019-05-20] MEDS: SYMBICORT 160-4.5 MCG INHALER INHALATION SCH ×2 (08:27→21:19)
--- NOTE | 2019-05-20 10:36 | P.PN ---
Subjective Patient is seen in follow-up for chronic kidney disease. Renal function is better. Edema is gradually improving. Currently maintained on Lasix 40 mg twice daily. No vomiting or diarrhea. Oral intake is fair. Vital signs are stable. General: The patient appeared well nourished and normally developed. HEENT: Head exam is unremarkable. Neck is without jugular venous distension. LUNGS: Lungs are clear to auscultation and percussion. Breath sounds decreased. HEART: Rate and Rhythm are regular. First and second heart sounds normal. No murmurs, rubs or gallops. ABDOMEN: Abdominal exam reveals normal bowel sounds. Non-tender and non-distend ed. No evidence of peritonitis. EXTREMITITES: 1+ edema. Objective - Vital Signs Vital signs: Vital Signs Temp 97.9 F 05/20/19 07:00 Pulse 68 05/20/19 08:40 Resp 16 05/20/19 08:30 BP 161/55 05/20/19 07:00 Pulse Ox 96 05/20/19 07:00 Intake & Output 05/19/19 05/20/19 05/20/19 18:59 06:59 18:59 Intake Total 636 240 Output Total 900 800 400 Balance -264 -800 -160 Intake: Oral 636 240 Output: Urine 900 800 400 Other: Voiding Method Toilet Toilet Toilet Urinal Urinal Urinal # Voids 1 1 - Labs CBC & Chem 7: 05/20/19 06:51 05/20/19 06:51 Labs: Abnormal Lab Results - Last 24 Hours (Table) 05/19/19 05/19/19 05/19/19 Range/Units 11:50 16:48 21:52 RBC (4.30-5.90) m/uL Hgb (13.0-17.5) gm/dL Hct (39.0-53.0) % MCHC (31.0-37.0) g/dL RDW (11.5-15.5) % Neutrophils # (1.3-7.7) k/uL Lymphocytes # (1.0-4.8) k/uL Chloride (98-107) mmol/L Carbon Dioxide (22-30) mmol/L BUN (9-20) mg/dL Glucose (74-99) mg/dL POC Glucose (mg/dL) 129 H 124 H 122 H (75-99) mg/dL 05/20/19 05/20/19 05/20/19 Range/Units 06:51 06:51 07:06 RBC 3.92 L (4.30-5.90) m/uL Hgb 10.2 L (13.0-17.5) gm/dL Hct 33.6 L (39.0-53.0) % MCHC 30.4 L (31.0-37.0) g/dL RDW 18.9 H (11.5-15.5) % Neutrophils # 8.4 H (1.3-7.7) k/uL Lymphocytes # 0.8 L (1.0-4.8) k/uL Chloride 96 L (98-107) mmol/L Carbon Dioxide 33 H (22-30) mmol/L BUN 34 H (9-20) mg/dL Glucose 105 H (74-99) mg/dL POC Glucose (mg/dL) 113 H (75-99) mg/dL Microbiology - Last 24 Hours (Table) 05/17/19 19:47 Blood Culture - Preliminary Blood No Growth after 48 hours 05/16/19 18:58 Blood Culture - Preliminary Blood No Growth after 72 hours 05/17/19 10:00 Gram Stain - Final Leg - Right Wound Culture - Final Methicillin resist S. aureus 05/17/19 10:00 Anaerobic Culture - Preliminary Leg - Right Assessment and Plan Plan: Assessment: 1. Chronic kidney disease stage III secondary to cardiorenal syndrome. Renal function stable. Creatinine 1.15 today. UA benign. 2. History of left renal cancer status post partial nephrectomy. 3. Insulin-dependent diabetes mellitus. 4. Volume overload. Improving with diuresis. 5. Acute on chronic systolic CHF with ejection fraction of 45-50% with mild to moderate mitral regurgitation. 6. Hypertension with chronic kidney disease. Controlled. Plan: Maintain Lasix 40 mg orally twice daily. Low-salt diet. Continue to monitor renal function and urine output.
[2019-05-20 11:08] LABS: Glucose,Whole Blood 222 mg/dL (75-99)
--- NOTE | 2019-05-20 12:50 | P.PN ---
Subjective Progress Note Date: 05/20/19 This is a pleasant 83-year-old gentleman who follows Dr. 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 fib with multiple pauses noted on a recent Holter monitor at which time his beta toyin was decreased. He has a history of poor compliance with following a low sodium diet. Presented to the emergency department with complaints of worsening lower extremity edema and worsening shortness of breath. Chest x-ray on admission showed pulmonary interstitial fibrosis, chronic elevated right diaphragm, no heart failure, no change compared to old exam. NT proBNP K Henri to be around 2300. WBC is elevated at 17,600. Patient was found to be afebrile upon admission with a temperature max of 101.3F. The patient has been initiated on IV Lasix by nephrology. He is also been started on antibiotics by primary. Upon examination, patient is sitting up in a chair. He feels his breathing has improved slightly and his edema is improving as well. He was having complaints of dyspnea on exertion, orthopnea or lower extremity edema at home but denies weight gain. 05/20/2019 Patient was seen and examined sitting up in a chair visiting with his family. He feels his breathing is stable and his edema has improved. He has currently on Lasix 40 mg by mouth twice a day. The patient's family verbalizes concern that some of the edema may be due to amlodipine. Labs from today show hemoglobin 10.2, BUN 34 and creatinine 1.15. Vital signs are stable. Objective - Vital Signs Vital signs: Vital Signs Temp 97.9 F 05/20/19 07:00 Pulse 58 L 05/20/19 12:28 Resp 16 05/20/19 08:30 BP 161/55 05/20/19 07:00 Pulse Ox 96 05/20/19 07:00 Intake & Output 05/19/19 05/20/19 05/20/19 18:59 06:59 18:59 Intake Total 636 240 Output Total 900 800 400 Balance -264 -800 -160 Intake: Oral 636 240 Output: Urine 900 800 400 Other: Voiding Method Toilet Toilet Toilet Urinal Urinal Urinal # Voids 1 1 - Exam PHYSICAL EXAMINATION: HEENT: Head is atraumatic, normocephalic. Pupils equal, round. Neck is supple. There is no elevated jugular venous pressure. HEART EXAMINATION: Heart sounds irregularly irregular, S1 and S2 with a systolic murmur. CHEST EXAMINATION: Lungs are clear to auscultation, diminished throughout. No chest wall tenderness is noted on palpation or with deep breathing. ABDOMEN: Soft, nontender. Bowel sounds are heard. No organomegaly noted. EXTREMITIES: 1+ peripheral pulses with evidence of mild lower extremity edema and bilateral lower leg erythema. NEUROLOGIC patient is awake, alert and oriented x3. - Labs CBC & Chem 7: 05/20/19 06:51 05/20/19 06:51 Labs: Abnormal Lab Results - Last 24 Hours (Table) 05/19/19 05/19/19 05/20/19 Range/Units 16:48 21:52 06:51 RBC 3.92 L (4.30-5.90) m/uL Hgb 10.2 L (13.0-17.5) gm/dL Hct 33.6 L (39.0-53.0) % MCHC 30.4 L (31.0-37.0) g/dL RDW 18.9 H (11.5-15.5) % Neutrophils # 8.4 H (1.3-7.7) k/uL Lymphocytes # 0.8 L (1.0-4.8) k/uL Chloride (98-107) mmol/L Carbon Dioxide (22-30) mmol/L BUN (9-20) mg/dL Glucose (74-99) mg/dL POC Glucose (mg/dL) 124 H 122 H (75-99) mg/dL 05/20/19 05/20/19 05/20/19 Range/Units 06:51 07:06 11:06 RBC (4.30-5.90) m/uL Hgb (13.0-17.5) gm/dL Hct (39.0-53.0) % MCHC (31.0-37.0) g/dL RDW (11.5-15.5) % Neutrophils # (1.3-7.7) k/uL Lymphocytes # (1.0-4.8) k/uL Chloride 96 L (98-107) mmol/L Carbon Dioxide 33 H (22-30) mmol/L BUN 34 H (9-20) mg/dL Glucose 105 H (74-99) mg/dL POC Glucose (mg/dL) 113 H 222 H (75-99) mg/dL Microbiology - Last 24 Hours (Table) 05/17/19 19:47 Blood Culture - Preliminary Blood No Growth after 48 hours 05/16/19 18:58 Blood Culture - Preliminary Blood No Growth after 72 hours 05/17/19 10:00 Gram Stain - Final Leg - Right Wound Culture - Final Methicillin resist S. aureus 05/17/19 10:00 Anaerobic Culture - Preliminary Leg - Right Assessment and Plan Assessment: #1 symptoms of shortness of breath with lower extremity edema likely related to component of mild acute on chronic systolic congestive heart failure however patient also has elevated white blood cell count and was febrile on admission, URI cannot be excluded #2 persistent atrial fibrillation #3 history of CAD with prior CABG #4 history of ischemic cardiomyopathy #5 hypertension #6 hyperlipidemia #7 type 2 diabetes #8 chronic kidney disease, stable #9 Lower extremity edema, could be somewhat related to CCB Plan: From cardiology perspective, we will decrease amlodipine to 5 mg daily. Discussed in detail with the patient and family the importance of following a low sodium diet. From our standpoint the patient may be discharged home and follow-up in the office as an outpatient. MANAGER PRACTICE note has been reviewed, I agree with a documented findings and plan of care. Patient was seen and examined.
[2019-05-20] MEDS: DAPTOmycin 500 MG in SODIUM CHLORIDE 0.9% 50 ML IVPB SCH (13:15)
[2019-05-20 16:40] LABS: Glucose,Whole Blood 315 mg/dL (75-99)
--- NOTE | 2019-05-20 19:29 | P.PN ---
Subjective Progress Note Date: 05/20/19 Principal diagnosis: Bilateral lower extreme cellulitis, MRSA Presumptive wound culture back suspected methicillin resistant staph, switching from Levaquin to daptomycin. Patient awake alert vital signs are stable. 05/19/2019 as above, presumptive wound cultures back suspected methicillin- resistant staph we'll continue on daptomycin at this time until pending culture sensitivity finalize. Patient is awake and alert vital signs are stable 05/20/2019 Patient will return 3 vital signs stable Lung sounds diminished throughout appearing that he is due for respiratory updraft treatment at this time WBCs returning to normal, renal function improving Objective - Vital Signs Vital signs: Vital Signs Temp 98.7 F 05/20/19 15:00 Pulse 68 05/20/19 16:23 Resp 15 05/20/19 16:00 BP 132/67 05/20/19 15:00 Pulse Ox 93 L 05/20/19 15:00 Intake & Output 05/20/19 05/20/19 05/21/19 06:59 18:59 06:59 Intake Total 660 Output Total 800 700 Balance -800 -40 Weight 110.4 kg Intake: Oral 660 Output: Urine 800 700 Other: Voiding Method Toilet Toilet Urinal Urinal # Voids 1 - Exam General: [Patient awake, alert and oriented times 3. Patient in no acute distress.] HEENT: [PERRL. EOMI. No pharyngeal erythema or exudate.] Neck: [No adenopathy.] Cardiac: [Heart regular in rate and rhythm. No S3. No S4. No clicks, rubs. No murmur.] Lungs: [Diminished throughout, but clear] Abdomen: [No mass. No organomegaly. Bowel sounds presnt and normoactive in all 4 quadrants.] Extremes: [Bilateral edema resolved. Erythema is improving, bilateral anterior tibial wounds dime size appeared to be healing] : [Normal male genitalia] Musculoskeletal: [No joint erythema, edema or tenderness.] Skin: [No rash.] Neurologic: [No lateralizing deficits. CN II - XII grossly intact.] Lymphatic: [No adenopathy.] - Labs CBC & Chem 7: 05/20/19 06:51 05/20/19 06:51 Labs: Abnormal Lab Results - Last 24 Hours (Table) 05/19/19 05/20/19 05/20/19 Range/Units 21:52 06:51 06:51 RBC 3.92 L (4.30-5.90) m/uL Hgb 10.2 L (13.0-17.5) gm/dL Hct 33.6 L (39.0-53.0) % MCHC 30.4 L (31.0-37.0) g/dL RDW 18.9 H (11.5-15.5) % Neutrophils # 8.4 H (1.3-7.7) k/uL Lymphocytes # 0.8 L (1.0-4.8) k/uL Chloride 96 L (98-107) mmol/L Carbon Dioxide 33 H (22-30) mmol/L BUN 34 H (9-20) mg/dL Glucose 105 H (74-99) mg/dL POC Glucose (mg/dL) 122 H (75-99) mg/dL 05/20/19 05/20/19 05/20/19 Range/Units 07:06 11:06 16:39 RBC (4.30-5.90) m/uL Hgb (13.0-17.5) gm/dL Hct (39.0-53.0) % MCHC (31.0-37.0) g/dL RDW (11.5-15.5) % Neutrophils # (1.3-7.7) k/uL Lymphocytes # (1.0-4.8) k/uL Chloride (98-107) mmol/L Carbon Dioxide (22-30) mmol/L BUN (9-20) mg/dL Glucose (74-99) mg/dL POC Glucose (mg/dL) 113 H 222 H 315 H (75-99) mg/dL Microbiology - Last 24 Hours (Table) 05/17/19 19:47 Blood Culture - Preliminary Blood No Growth after 48 hours 05/16/19 18:58 Blood Culture - Preliminary Blood No Growth after 72 hours Assessment and Plan Assessment: General: [Patient awake, alert and oriented times 3. Patient in no acute distress.] HEENT: [PERRL. EOMI. No pharyngeal erythema or exudate.] Neck: [No adenopathy.] Cardiac: [Heart regular in rate and rhythm. No S3. No S4. No clicks, rubs. No murmur.] Lungs: [Clear diminished throughout.] Abdomen: [No mass. No organomegaly. Bowel sounds presnt and normoactive in all 4 quadrants.] Extremes: [No edema no cyanosis no claudication normal pulses] : Normal male genitalia] Musculoskeletal: [No joint erythema, edema or tenderness.] Skin: [No rash.] Neurologic: [No lateralizing deficits. CN II - XII grossly intact.] Lymphatic: [No adenopathy.] (1) CHF (congestive heart failure) Current Visit: Yes Status: Acute Code(s): I50.9 - HEART FAILURE, UNSPECIFIED SNOMED Code(s): 71372652 (2) Diabetic foot ulcer Current Visit: Yes Status: Acute Code(s): E11.621 - TYPE 2 DIABETES MELLITUS WITH FOOT ULCER; L97.509 - NON-PRESSURE CHRONIC ULCER OTH PRT UNSP FOOT W UNSP SEVERITY SNOMED Code(s): 044911886 (3) Fever Current Visit: Yes Status: Acute Code(s): R50.9 - FEVER, UNSPECIFIED SNOMED Code(s): 791953208 (4) Weakness Current Visit: Yes Status: Acute Code(s): R53.1 - WEAKNESS SNOMED Code(s): 78666900 (5) Acute systolic (congestive) heart failure Current Visit: No Status: Acute Code(s): I50.21 - ACUTE SYSTOLIC (CONGESTIVE) HEART FAILURE SNOMED Code(s): 961288961 (6) Cellulitis Narrative/Plan: Bilateral lower extremes right greater than the left continued improvement Current Visit: No Status: Acute Code(s): L03.90 - CELLULITIS, UNSPECIFIED SNOMED Code(s): 155795587 Plan: Cardiology following IV antibiotics changed to daptomycin Wound cultures final pending Blood cultures no growth to date Infectious disease following Noncompliant with CPAP On complaint of diabetes Will follow closely Time with Patient: Greater than 30
[2019-05-20 20:07] LABS: Glucose,Whole Blood 277 mg/dL (75-99)
[2019-05-20] MEDS: amLODIPine 10 MG TAB PO SCH (21:36)
[2019-05-20] MEDS: ESCITALOPRAM 10 MG TAB PO SCH (21:36)
[2019-05-20] MEDS: MAGNESIUM OXIDE 400 MG TAB PO SCH (21:36)
[2019-05-20] MEDS: MONTELUKAST 10 MG TAB PO SCH (21:37)
[2019-05-20] MEDS: INSULIN DETEMIR (LEVEMIR) 100 UNIT/ML SYR SQ SCH (21:37)
[2019-05-20] MEDS: PRAVASTATIN SODIUM 40 MG TAB PO SCH (21:37)
[2019-05-20] MEDS: LEVOFLOXACIN 500 MG TAB PO SCH (21:38)
--- NOTE | 2019-05-20 22:38 | PN ---
PROGRESS NOTE DATE OF SERVICE: 05/20/2019 REASON FOR FOLLOWUP: Right lower extremity wound with cellulitis. INTERVAL HISTORY: The patient is currently afebrile. The patient has been breathing more comfortably. The patient denies having any chest pain. Occasional cough, but not bringing up any sputum. No nausea, no vomiting, no abdominal pain or diarrhea. PHYSICAL EXAMINATION: Blood pressure 153/69 with a pulse of 77, temperature 98.2. He is 92% on 2 L nasal cannula. General description is an elderly male lying in bed in no distress. RESPIRATORY SYSTEM: Unlabored breathing with decreased intensity of breath sounds. No wheeze. HEART: S1, S2. Regular rate and rhythm. ABDOMEN: Soft. No tenderness. LEGS: Legs are currently wrapped up. No obvious drainage on the dressing. LABS/IMAGING: Hemoglobin 10.2, white count 10.5. BUN of 34, creatinine is 1.15. Blood culture has been negative. He did have a chest x-ray with retrocardiac opacity air bronchograms. DIAGNOSTIC IMPRESSION AND PLAN: 1. Patient with a right lower extremity wound with secondary cellulitis. Culture positive for MRSA. Patient currently covered with daptomycin. 2. Patient did have presentation to hospital with a fever and concern for possible pneumonia, community-acquired, confirmed with repeat x-ray. Patient is currently covered. We will add Levaquin to cover for his pneumonia and monitor his clinical course closely. MMODL / IJN: [id number] /
[2019-05-21 04:59] LABS: Glucose,Whole Blood 59 mg/dL (75-99)
[2019-05-21 05:18] LABS: Glucose,Whole Blood 57 mg/dL (75-99)
[2019-05-21 05:42] LABS: Glucose,Whole Blood 106 mg/dL (75-99)
[2019-05-21 06:58] LABS: Glucose,Whole Blood 146 mg/dL (75-99)
[2019-05-21] MEDS: IPRATROPIUM-ALBUTEROL 3 ML NEB INHALATION SCH ×4 (08:16→21:30)
[2019-05-21] MEDS: SYMBICORT 160-4.5 MCG INHALER INHALATION SCH ×2 (08:16→21:30)
[2019-05-21] MEDS: FUROSEMIDE 40 MG TAB PO SCH ×2 (08:34→17:11)
[2019-05-21] MEDS: INSULIN ASPART (NovoLOG) 100 UNIT/ML VIAL SQ SCH ×4 (08:34→21:46)
[2019-05-21] MEDS: ACETAMINOPHEN TAB 500 MG TAB PO SCH ×2 (08:35→20:21)
[2019-05-21] MEDS: CYANOCOBALAMIN 500 MCG TAB PO SCH (08:35)
[2019-05-21] MEDS: LISINOPRIL 5 MG TAB PO SCH (08:35)
[2019-05-21] MEDS: PANTOPRAZOLE 40 MG TABLET PO SCH (08:35)
[2019-05-21] MEDS: METOPROLOL TARTRATE 12.5 MG TAB PO SCH ×2 (08:35→20:22)
[2019-05-21] MEDS: ENOXAPARIN 40 MG/0.4 ML SYRINGE SQ SCH (08:35)
[2019-05-21] MEDS: FLUTICASONE 50MCG/SPRAY NASAL 16GM EA NOSTRIL SCH (10:04)
[2019-05-21 11:16] LABS: Glucose,Whole Blood 214 mg/dL (75-99)
--- NOTE | 2019-05-21 11:53 | PN ---
PROGRESS NOTE Mr. Carson is an 84-year-old male who presented with symptoms of progressive dyspnea and cough. He has a known history of mild ischemic cardiomyopathy as well as history of coronary artery disease, status post coronary artery bypass grafting, persistent chronic atrial fibrillation. He continues to be dyspneic although better than yesterday. His edema is better. He denies any chest pain. He has no dizziness or palpitation. He has no nausea. He has not been anticoagulated because of prior episode of recurrent GI bleeding. He is not very active at home and continues to be on amlodipine 10 mg daily, Lovenox subcu, furosemide 40 mg twice a day, insulin, lisinopril 5 mg daily, metoprolol tartrate 12.5 mg twice a day, Singulair. PHYSICAL EXAMINATION: Blood pressure 119/60 with the heart rate in the 60s. LUNGS: With no wheezes or rales. HEART: Irregular, irregular. S1, S2. No S3. No rub. ABDOMEN: Soft, nontender. EXTREMITIES: Trace edema. IMPRESSION: 1. Symptoms of dyspnea on exertion, multifactorial, with an element of fluid overload with mild congestive heart failure. 2. Chronic persistent atrial fibrillation. 3. Mild ischemic cardiomyopathy. 4. Status post coronary artery bypass grafting. 5. Hypertension. 6. Hyperlipidemia. RECOMMENDATION: We will continue present therapy, increase his level activity. If he remains stable, I would expect he should be able to be discharged home soon. MMSKYEL / STEPHANI: [id number] /
--- NOTE | 2019-05-21 12:24 | P.PN ---
Subjective Progress Note Date: 05/21/19 Follow-up for acute kidney injury. Objective - Vital Signs Vital signs: Vital Signs Temp 98.5 F 05/21/19 07:00 Pulse 51 L 05/21/19 12:18 Resp 16 05/21/19 12:18 BP 119/64 05/21/19 07:00 Pulse Ox 94 L 05/21/19 07:00 Intake & Output 05/20/19 05/21/19 05/21/19 18:59 06:59 18:59 Intake Total 660 950 800 Output Total 700 Balance -40 950 800 Weight 110.4 kg Intake: Oral 660 950 800 Output: Urine 700 Other: Voiding Method Toilet Toilet Urinal Urinal # Voids 1 1 - Exam No acute distress S1-S2 heard Lungs clear Abdomen soft Trace edema - Labs CBC & Chem 7: 05/20/19 06:51 05/20/19 06:51 Labs: Abnormal Lab Results - Last 24 Hours (Table) 05/20/19 05/20/19 05/21/19 Range/Units 16:39 20:05 04:57 POC Glucose (mg/dL) 315 H 277 H 59 L (75-99) mg/dL 05/21/19 05/21/19 05/21/19 Range/Units 05:15 05:40 06:57 POC Glucose (mg/dL) 57 L 106 H 146 H (75-99) mg/dL 05/21/19 Range/Units 11:15 POC Glucose (mg/dL) 214 H (75-99) mg/dL Microbiology - Last 24 Hours (Table) 05/17/19 19:47 Blood Culture - Preliminary Blood No Growth after 72 hours 05/16/19 18:58 Blood Culture - Preliminary Blood No Growth after 96 hours Assessment and Plan Assessment: #1 chronic kidney disease stage III secondary to cardiorenal syndrome creatinine stable. #2 renal cancer status post partial left nephrectomy. #3 insulin-dependent diabetes #4 volume overload #5 diastolic CHF #6 hypertension with chronic kidney disease Plan: #1 continue with diuretics, changed to Lasix 40 mg by mouth twice a day. #2 stable from nephrology point for discharge to be followed up in the clinic in 2-3 weeks.
[2019-05-21 14:19] LABS: Albumin 3.8 g/dL (3.5-5.0); Calcium 9.3 mg/dL (8.4-10.2); Potassium 4.9 mmol/L (3.5-5.1); Total Bilirubin 0.7 mg/dL (0.2-1.3); Total Protein 6.5 g/dL (6.3-8.2)
[2019-05-21 14:25] LABS: Anisocytosis Slight; Basophils % (A) 0 %; Eosinophils # (A) 0.2 k/uL (0-0.7); Eosinophils % (A) 1 %; HCT 31.5 % (39.0-53.0); Hypochromasia Slight; Lymphocytes # (A) 0.9 k/uL (1.0-4.8); Lymphocytes % (A) 7 %; MCH 27.3 pg (25.0-35.0); MCHC 31.8 g/dL (31.0-37.0); Mean Platelet Volume 9.6; Monocytes # (A) 1.1 k/uL (0-1.0); Monocytes % (A) 8 %; Neutrophils # (A) 10.9 k/uL (1.3-7.7); Neutrophils % (A) 83 %; Platelet Count 297 k/uL (150-450); RBC 3.66 m/uL (4.30-5.90); RDW 18.3 % (11.5-15.5); WBC 13.2 k/uL (3.8-10.6)
[2019-05-21] MEDS: DAPTOmycin 500 MG in SODIUM CHLORIDE 0.9% 50 ML IVPB SCH (14:46)
--- NOTE | 2019-05-21 15:05 | P.PN ---
Subjective Progress Note Date: 05/21/19 Principal diagnosis: Bilateral lower extreme cellulitis, MRSA Early pneumonia with mild CHF Presumptive wound culture back suspected methicillin resistant staph, switching from Levaquin to daptomycin. Patient awake alert vital signs are stable. 05/19/2019 as above, presumptive wound cultures back suspected methicillin- resistant staph we'll continue on daptomycin at this time until pending culture sensitivity finalize. Patient is awake and alert vital signs are stable 05/20/2019 Patient will return 3 vital signs stable Lung sounds diminished throughout appearing that he is due for respiratory updraft treatment at this time WBCs returning to normal, renal function improving 05/21/2019 Lung sounds improved clear throughout currently on 2 L nasal cannula but improving Patient is known noncompliant with CPAP for the past 15 years. We will have pulmonary consult for sleep studies for new CPAP machine. We'll encourage compliance with same. Patient is consistently desaturating with exercise Objective - Vital Signs Vital signs: Vital Signs Temp 98.3 F 05/21/19 13:31 Pulse 59 L 05/21/19 13:31 Resp 17 05/21/19 13:31 BP 125/70 05/21/19 13:31 Pulse Ox 88 L 05/21/19 14:15 Intake & Output 05/20/19 05/21/19 05/21/19 18:59 06:59 18:59 Intake Total 063 581 4964 Output Total 700 Balance -40 950 1060 Weight 110.4 kg Intake: Oral 547 216 7137 Output: Urine 700 Other: Voiding Method Toilet Toilet Urinal Urinal # Voids 1 1 - Exam General: [Patient awake, alert and oriented times 3. Patient in no acute distress.] HEENT: [PERRL. EOMI. No pharyngeal erythema or exudate.] Neck: [No adenopathy.] Cardiac: [Heart regular in rate and rhythm. No S3. No S4. No clicks, rubs. No murmur.] Lungs: [1 sounds are clear throughout] Abdomen: [No mass. No organomegaly. Bowel sounds presnt and normoactive in all 4 quadrants.] Extremes: [Bilateral edema resolved. Erythema is improving, bilateral anterior tibial wounds dime size appeared to be healing] : [Normal male genitalia] Musculoskeletal: [No joint erythema, edema or tenderness.] Skin: [No rash.] Neurologic: [No lateralizing deficits. CN II - XII grossly intact.] Lymphatic: [No adenopathy.] - Labs CBC & Chem 7: 05/21/19 13:52 05/21/19 13:52 Labs: Abnormal Lab Results - Last 24 Hours (Table) 05/20/19 05/20/19 05/21/19 Range/Units 16:39 20:05 04:57 WBC (3.8-10.6) k/uL RBC (4.30-5.90) m/uL Hgb (13.0-17.5) gm/dL Hct (39.0-53.0) % RDW (11.5-15.5) % Neutrophils # (1.3-7.7) k/uL Lymphocytes # (1.0-4.8) k/uL Monocytes # (0-1.0) k/uL Sodium (137-145) mmol/L Chloride (98-107) mmol/L BUN (9-20) mg/dL Creatinine (0.66-1.25) mg/dL Glucose (74-99) mg/dL POC Glucose (mg/dL) 315 H 277 H 59 L (75-99) mg/dL 05/21/19 05/21/19 05/21/19 Range/Units 05:15 05:40 06:57 WBC (3.8-10.6) k/uL RBC (4.30-5.90) m/uL Hgb (13.0-17.5) gm/dL Hct (39.0-53.0) % RDW (11.5-15.5) % Neutrophils # (1.3-7.7) k/uL Lymphocytes # (1.0-4.8) k/uL Monocytes # (0-1.0) k/uL Sodium (137-145) mmol/L Chloride (98-107) mmol/L BUN (9-20) mg/dL Creatinine (0.66-1.25) mg/dL Glucose (74-99) mg/dL POC Glucose (mg/dL) 57 L 106 H 146 H (75-99) mg/dL 05/21/19 05/21/19 05/21/19 Range/Units 11:15 13:52 13:52 WBC 13.2 H (3.8-10.6) k/uL RBC 3.66 L (4.30-5.90) m/uL Hgb 10.0 L (13.0-17.5) gm/dL Hct 31.5 L (39.0-53.0) % RDW 18.3 H (11.5-15.5) % Neutrophils # 10.9 H (1.3-7.7) k/uL Lymphocytes # 0.9 L (1.0-4.8) k/uL Monocytes # 1.1 H (0-1.0) k/uL Sodium 134 L (137-145) mmol/L Chloride 95 L (98-107) mmol/L BUN 44 H (9-20) mg/dL Creatinine 1.27 H (0.66-1.25) mg/dL Glucose 263 H (74-99) mg/dL POC Glucose (mg/dL) 214 H (75-99) mg/dL Microbiology - Last 24 Hours (Table) 05/17/19 10:00 Anaerobic Culture - Final Leg - Right 05/17/19 19:47 Blood Culture - Preliminary Blood No Growth after 72 hours 05/16/19 18:58 Blood Culture - Preliminary Blood No Growth after 96 hours Assessment and Plan (1) CHF (congestive heart failure) Current Visit: Yes Status: Acute Code(s): I50.9 - HEART FAILURE, UNSPECIFIED SNOMED Code(s): 19242307 (2) Diabetic foot ulcer Current Visit: Yes Status: Acute Code(s): E11.621 - TYPE 2 DIABETES MELLITUS WITH FOOT ULCER; L97.509 - NON-PRESSURE CHRONIC ULCER OTH PRT UNSP FOOT W UNSP SEVERITY SNOMED Code(s): 094322371 (3) Fever Current Visit: Yes Status: Acute Code(s): R50.9 - FEVER, UNSPECIFIED SNOMED Code(s): 706947534 (4) Weakness Current Visit: Yes Status: Acute Code(s): R53.1 - WEAKNESS SNOMED Code(s): 13211203 (5) Acute systolic (congestive) heart failure Current Visit: No Status: Acute Code(s): I50.21 - ACUTE SYSTOLIC (CONGESTIVE) HEART FAILURE SNOMED Code(s): 560725022 (6) Cellulitis Current Visit: No Status: Acute Code(s): L03.90 - CELLULITIS, UNSPECIFIED SNOMED Code(s): 876815467 Plan: Cardiology following IV antibiotics changed to daptomycin the addition of Levaquin Wound cultures MRSA final Blood cultures no growth to date Infectious disease following Noncompliant with CPAP will get pulmonary consult to reevaluate patient for CPAP None complaint of diabetes Will follow closely
[2019-05-21 16:32] LABS: Glucose,Whole Blood 276 mg/dL (75-99)
--- NOTE | 2019-05-21 17:57 | PN ---
PROGRESS NOTE DATE OF SERVICE: 05/21/2019. REASON FOR FOLLOWUP: 1. Right lower extremity wound and cellulitis, MRSA. 2. Pneumonia. INTERVAL HISTORY: The patient is currently afebrile. The patient has been breathing comfortably. Though he denies having any chest pain, he did have some cough with occasional sputum production. No nausea, no vomiting. No abdominal pain or diarrhea. PHYSICAL EXAMINATION: Blood pressure 125/70 with a pulse of 59, temperature 98.3. He is 94% on 2 L nasal cannula. General description is an elderly male up in the chair in no distress. RESPIRATORY SYSTEM: Unlabored breathing with decreased breath sounds at the base. No wheeze. HEART: S1, S2. Regular rate and rhythm. ABDOMEN: Soft. No tenderness. Leg swelling has much improved as well as redness with a small wound with no drainage. LABS: Hemoglobin is 10, white count 13.2, BUN of 44, creatinine 1.27. DIAGNOSTIC IMPRESSION AND PLAN: 1. Patient with right lower extremity wound with secondary cellulitis. Culture positive for MRSA. Patient is covered with daptomycin and that will be transitioned to doxepin on discharge. 2. Patient with concern for possible pneumonia, covered with Levaquin. Try to obtain a sputum sample and monitor his clinical course closely. MMODL / IJN: [id number] /
[2019-05-21] MEDS: MONTELUKAST 10 MG TAB PO SCH (20:22)
[2019-05-21] MEDS: LEVOFLOXACIN 500 MG TAB PO SCH (20:22)
[2019-05-21] MEDS: PRAVASTATIN SODIUM 40 MG TAB PO SCH (20:23)
[2019-05-21] MEDS: ESCITALOPRAM 10 MG TAB PO SCH (20:24)
[2019-05-21] MEDS: MAGNESIUM OXIDE 400 MG TAB PO SCH (20:24)
[2019-05-21 20:57] LABS: Glucose,Whole Blood 264 mg/dL (75-99)
[2019-05-21] MEDS: INSULIN DETEMIR (LEVEMIR) 100 UNIT/ML SYR SQ SCH (21:42)
[2019-05-22] MEDS: SYMBICORT 160-4.5 MCG INHALER INHALATION SCH ×2 (07:25→19:31)
[2019-05-22] MEDS: IPRATROPIUM-ALBUTEROL 3 ML NEB INHALATION SCH ×4 (07:25→19:31)
[2019-05-22 07:29] LABS: Anisocytosis Slight; Basophils % (A) 0 %; Eosinophils # (A) 0.2 k/uL (0-0.7); Eosinophils % (A) 1 %; HCT 32.1 % (39.0-53.0); HGB 10.1 gm/dL (13.0-17.5); Hypochromasia Slight; Lymphocytes # (A) 0.8 k/uL (1.0-4.8); Lymphocytes % (A) 6 %; MCHC 31.6 g/dL (31.0-37.0); MCV 85.6 fL (80.0-100.0); Mean Platelet Volume 8.6; Monocytes # (A) 1.1 k/uL (0-1.0); Monocytes % (A) 8 %; Neutrophils # (A) 10.9 k/uL (1.3-7.7); Neutrophils % (A) 82 %; Platelet Count 374 k/uL (150-450); RBC 3.75 m/uL (4.30-5.90); RDW 18.2 % (11.5-15.5); WBC 13.2 k/uL (3.8-10.6)
[2019-05-22 07:33] LABS: Albumin 4.1 g/dL (3.5-5.0); Calcium 9.7 mg/dL (8.4-10.2); Potassium 4.6 mmol/L (3.5-5.1); Total Bilirubin 0.9 mg/dL (0.2-1.3); Total Protein 6.9 g/dL (6.3-8.2)
[2019-05-22 07:44] LABS: Glucose,Whole Blood 155 mg/dL (75-99)
[2019-05-22] MEDS: INSULIN ASPART (NovoLOG) 100 UNIT/ML VIAL SQ SCH ×4 (08:30→20:39)
[2019-05-22] MEDS: FLUTICASONE 50MCG/SPRAY NASAL 16GM EA NOSTRIL SCH (08:30)
[2019-05-22] MEDS: ENOXAPARIN 40 MG/0.4 ML SYRINGE SQ SCH (08:30)
[2019-05-22] MEDS: amLODIPine 5 MG TAB PO SCH (08:33)
[2019-05-22] MEDS: LISINOPRIL 5 MG TAB PO SCH (08:33)
[2019-05-22] MEDS: METOPROLOL TARTRATE 12.5 MG TAB PO SCH ×2 (08:33→20:37)
[2019-05-22] MEDS: PANTOPRAZOLE 40 MG TABLET PO SCH (08:33)
[2019-05-22] MEDS: FUROSEMIDE 40 MG TAB PO SCH ×2 (08:33→17:34)
[2019-05-22] MEDS: ACETAMINOPHEN TAB 500 MG TAB PO SCH ×2 (08:33→20:34)
--- NOTE | 2019-05-22 11:43 | P.PN ---
Subjective Progress Note Date: 05/22/19 Follow-up for acute kidney injury. Objective - Vital Signs Vital signs: Vital Signs Temp 98.4 F 05/22/19 07:00 Pulse 64 05/22/19 11:27 Resp 17 05/22/19 08:00 BP 151/85 05/22/19 07:00 Pulse Ox 91 L 05/22/19 07:00 Intake & Output 05/21/19 05/22/19 05/22/19 18:59 06:59 18:59 Intake Total 1060 Output Total 650 Balance 1060 -650 Intake: Oral 1060 Output: Urine 650 Other: Voiding Method Toilet Toilet Urinal Urinal # Voids 2 - Exam No acute distress S1-S2 heard Lungs clear Abdomen soft Trace edema - Labs CBC & Chem 7: 05/22/19 06:27 05/22/19 06:27 Labs: Abnormal Lab Results - Last 24 Hours (Table) 05/21/19 05/21/19 05/21/19 Range/Units 13:52 13:52 16:31 WBC 13.2 H (3.8-10.6) k/uL RBC 3.66 L (4.30-5.90) m/uL Hgb 10.0 L (13.0-17.5) gm/dL Hct 31.5 L (39.0-53.0) % RDW 18.3 H (11.5-15.5) % Neutrophils # 10.9 H (1.3-7.7) k/uL Lymphocytes # 0.9 L (1.0-4.8) k/uL Monocytes # 1.1 H (0-1.0) k/uL Sodium 134 L (137-145) mmol/L Chloride 95 L (98-107) mmol/L BUN 44 H (9-20) mg/dL Creatinine 1.27 H (0.66-1.25) mg/dL Glucose 263 H (74-99) mg/dL POC Glucose (mg/dL) 276 H (75-99) mg/dL 05/21/19 05/22/19 05/22/19 Range/Units 20:34 06:27 06:27 WBC 13.2 H (3.8-10.6) k/uL RBC 3.75 L (4.30-5.90) m/uL Hgb 10.1 L (13.0-17.5) gm/dL Hct 32.1 L (39.0-53.0) % RDW 18.2 H (11.5-15.5) % Neutrophils # 10.9 H (1.3-7.7) k/uL Lymphocytes # 0.8 L (1.0-4.8) k/uL Monocytes # 1.1 H (0-1.0) k/uL Sodium (137-145) mmol/L Chloride (98-107) mmol/L BUN 38 H (9-20) mg/dL Creatinine (0.66-1.25) mg/dL Glucose 138 H (74-99) mg/dL POC Glucose (mg/dL) 264 H (75-99) mg/dL 05/22/19 Range/Units 07:20 WBC (3.8-10.6) k/uL RBC (4.30-5.90) m/uL Hgb (13.0-17.5) gm/dL Hct (39.0-53.0) % RDW (11.5-15.5) % Neutrophils # (1.3-7.7) k/uL Lymphocytes # (1.0-4.8) k/uL Monocytes # (0-1.0) k/uL Sodium (137-145) mmol/L Chloride (98-107) mmol/L BUN (9-20) mg/dL Creatinine (0.66-1.25) mg/dL Glucose (74-99) mg/dL POC Glucose (mg/dL) 155 H (75-99) mg/dL Microbiology - Last 24 Hours (Table) 05/17/19 19:47 Blood Culture - Preliminary Blood No Growth after 96 hours 05/16/19 18:58 Blood Culture - Preliminary Blood No Growth after 120 hours 05/17/19 10:00 Anaerobic Culture - Final Leg - Right Assessment and Plan Assessment: #1 chronic kidney disease stage III secondary to cardiorenal syndrome creatinine stable. #2 renal cancer status post partial left nephrectomy. #3 insulin-dependent diabetes #4 volume overload #5 diastolic CHF #6 hypertension with chronic kidney disease Plan: #1 continue with diuretics, changed to Lasix 40 mg by mouth twice a day. Renal function stable. #2 stable from nephrology for discharge to be followed up in the clinic in 2-3 weeks.
[2019-05-22 12:04] LABS: Glucose,Whole Blood 362 mg/dL (75-99)
--- NOTE | 2019-05-22 12:30 | P.PN ---
Subjective Fan is a 84-year-old white male well-known to me from the practice. He follows up with my partner typically. He is been hospitalized for acute renal failure, cellulitis due to MRSA the bilateral lower extremities along with mild congestive heart failure and atrial fibrillation. He is currently being seen by infectious disease, all of which are exacerbations of chronic disease. Quincy is very noncompliant. He supposed to have a CPAP which she has not used in years. He is currently on daptomycin for MRSA and Levaquin for possible pneumo ramirez. Infectious disease recommends doxycycline at discharge. His kidney function is much improved and he is been cleared by nephrology and cardiology for discharge soon. Today, 05/22/2019, Fan complains of some ongoing weakness and shortness breath with exertion. He is not interested in any rehabilitation, as and refused physical therapy on several occasions while hospitalized. He is able to stand immediately to the bathroom. He denies any current chest pains, pressures, or shortness of breath at rest. He denies any urinary frequency or urgency. I discussed to him going home soon. Her phillip on IV steroids and still requiring some oxygen to maintain saturations. Objective - Vital Signs Vital signs: Vital Signs Temp 98.4 F 05/22/19 07:00 Pulse 64 05/22/19 11:27 Resp 17 05/22/19 08:00 BP 151/85 05/22/19 07:00 Pulse Ox 91 L 05/22/19 07:00 Intake & Output 05/21/19 05/22/19 05/22/19 18:59 06:59 18:59 Intake Total 1060 Output Total 650 Balance 1060 -650 Weight 110.7 kg Intake: Oral 1060 Output: Urine 650 Other: Voiding Method Toilet Toilet Urinal Urinal # Voids 2 - Exam GENERAL: Sitting up in chair, no acute distress NECK: Minimal JVD. No thyroid enlargement. No LNs CARDIOVASCULAR: S1, S2 regular. Systolic murmur RESPIRATION: Breath sounds diminished in the bases. No rhonchi, diffuse bib asilar crackles, no wheezes, ABDOMEN: Obese, Soft, mildly distended, nontender . No guarding. no masses palpable. No ascites, No hepatosplenomegaly.Positive bowel sounds. LEGS: Bilateral lower extremity edema with cellulitis, more erythematous small open area to the left anterior with some dried Aquacel silver applied. There are Ben wraps snf up the legs. PSYCHIATRY: Alert and oriented X3, mood and affect normal. NERVOUS SYSTEM: Cranial N 2-12 grossly normal. Moves all 4 limbs. Diffuse weakness ,No focal deficits. Strength and sensation grossly intact.. Lymphatic system. No LN neck axilla or groin. - Labs CBC & Chem 7: 05/22/19 06:27 05/22/19 06:27 Labs: Abnormal Lab Results - Last 24 Hours (Table) 05/21/19 05/21/19 05/21/19 Range/Units 13:52 13:52 16:31 WBC 13.2 H (3.8-10.6) k/uL RBC 3.66 L (4.30-5.90) m/uL Hgb 10.0 L (13.0-17.5) gm/dL Hct 31.5 L (39.0-53.0) % RDW 18.3 H (11.5-15.5) % Neutrophils # 10.9 H (1.3-7.7) k/uL Lymphocytes # 0.9 L (1.0-4.8) k/uL Monocytes # 1.1 H (0-1.0) k/uL Sodium 134 L (137-145) mmol/L Chloride 95 L (98-107) mmol/L BUN 44 H (9-20) mg/dL Creatinine 1.27 H (0.66-1.25) mg/dL Glucose 263 H (74-99) mg/dL POC Glucose (mg/dL) 276 H (75-99) mg/dL 05/21/19 05/22/19 05/22/19 Range/Units 20:34 06:27 06:27 WBC 13.2 H (3.8-10.6) k/uL RBC 3.75 L (4.30-5.90) m/uL Hgb 10.1 L (13.0-17.5) gm/dL Hct 32.1 L (39.0-53.0) % RDW 18.2 H (11.5-15.5) % Neutrophils # 10.9 H (1.3-7.7) k/uL Lymphocytes # 0.8 L (1.0-4.8) k/uL Monocytes # 1.1 H (0-1.0) k/uL Sodium (137-145) mmol/L Chloride (98-107) mmol/L BUN 38 H (9-20) mg/dL Creatinine (0.66-1.25) mg/dL Glucose 138 H (74-99) mg/dL POC Glucose (mg/dL) 264 H (75-99) mg/dL 05/22/19 05/22/19 Range/Units 07:20 11:51 WBC (3.8-10.6) k/uL RBC (4.30-5.90) m/uL Hgb (13.0-17.5) gm/dL Hct (39.0-53.0) % RDW (11.5-15.5) % Neutrophils # (1.3-7.7) k/uL Lymphocytes # (1.0-4.8) k/uL Monocytes # (0-1.0) k/uL Sodium (137-145) mmol/L Chloride (98-107) mmol/L BUN (9-20) mg/dL Creatinine (0.66-1.25) mg/dL Glucose (74-99) mg/dL POC Glucose (mg/dL) 155 H 362 H (75-99) mg/dL Microbiology - Last 24 Hours (Table) 05/17/19 19:47 Blood Culture - Preliminary Blood No Growth after 96 hours 05/16/19 18:58 Blood Culture - Preliminary Blood No Growth after 120 hours 05/17/19 10:00 Anaerobic Culture - Final Leg - Right Assessment and Plan (1) Cellulitis of left leg Current Visit: Yes Status: Acute Code(s): L03.116 - CELLULITIS OF LEFT LOWER LIMB SNOMED Code(s): 574020012 (2) CHF (congestive heart failure) Current Visit: Yes Status: Acute Code(s): I50.9 - HEART FAILURE, UNSPECIFIED SNOMED Code(s): 23734433 (3) Diabetic foot ulcer Current Visit: Yes Status: Acute Code(s): E11.621 - TYPE 2 DIABETES MELLITUS WITH FOOT ULCER; L97.509 - NON-PRESSURE CHRONIC ULCER OTH PRT UNSP FOOT W UNSP SEVERITY SNOMED Code(s): 142159525 (4) Acute systolic (congestive) heart failure Current Visit: No Status: Acute Code(s): I50.21 - ACUTE SYSTOLIC (CONGESTIVE) HEART FAILURE SNOMED Code(s): 665548177 (5) Atrial fibrillation Current Visit: No Status: Acute Code(s): I48.91 - UNSPECIFIED ATRIAL FIBRILLATION SNOMED Code(s): 23762418 (6) Cellulitis of right leg Current Visit: No Status: Acute Code(s): L03.115 - CELLULITIS OF RIGHT LOWER LIMB SNOMED Code(s): 673968310 (7) Coronary arteriosclerosis Current Visit: No Status: Acute Code(s): I25.10 - ATHSCL HEART DISEASE OF [place] CORONARY ARTERY W/O ANG PCTRS SNOMED Code(s): 37083037 (8) Diabetes mellitus Current Visit: No Status: Acute Code(s): E11.9 - TYPE 2 DIABETES MELLITUS WITHOUT COMPLICATIONS SNOMED Code(s): 64877603 (9) HTN (hypertension) Current Visit: No Status: Acute Code(s): I10 - ESSENTIAL (PRIMARY) HYPERTENSION SNOMED Code(s): 61232020 (10) Hx of CABG Current Visit: No Status: Acute Code(s): Z95.1 - PRESENCE OF AORTOCORONARY BYPASS GRAFT SNOMED Code(s): 064808072 (11) Hyperlipemia Current Visit: No Status: Acute Code(s): E78.5 - HYPERLIPIDEMIA, UNSPECIFIED SNOMED Code(s): 73721447 (12) Hypoxia Current Visit: No Status: Acute Code(s): R09.02 - HYPOXEMIA SNOMED Code(s): 562146299 (13) Obesity Current Visit: No Status: Acute Code(s): E66.9 - OBESITY, UNSPECIFIED SNOMED Code(s): 714415826 (14) Oxygen dependent Current Visit: No Status: Acute Code(s): Z99.81 - DEPENDENCE ON SUPPLEMENTAL OXYGEN SNOMED Code(s): 382815842748 (15) Pneumonia Current Visit: No Status: Acute Code(s): J18.9 - PNEUMONIA, UNSPECIFIED ORGANISM SNOMED Code(s): 744073877 (16) Chronic renal failure, stage 3 (moderate) Current Visit: Yes Status: Acute Code(s): N18.3 - CHRONIC KIDNEY DISEASE, STAGE 3 (MODERATE) SNOMED Code(s): 41756304 (17) H/O left nephrectomy Current Visit: Yes Status: Acute Code(s): Z90.5 - ACQUIRED ABSENCE OF KIDNEY SNOMED Code(s): 24740118127881 (18) H/O renal cell carcinoma Current Visit: Yes Status: Acute Code(s): Z85.528 - PERSONAL HISTORY OF OTHER MALIGNANT NEOPLASM OF KIDNEY SNOMED Code(s): 287502227 (19) Diastolic CHF Current Visit: Yes Status: Acute Code(s): I50.30 - UNSPECIFIED DIASTOLIC (CONGESTIVE) HEART FAILURE SNOMED Code(s): 944539641 Plan: The patient has been cleared by nephrology and cardiology, ambulate 3 times a day and be up in chair. We'll monitor him and planned discharge tomorrow. Plan on discharging him on doxycycline and Levaquin per infectious disease. Continue on daptomycin today.
[2019-05-22] MEDS: DAPTOmycin 500 MG in SODIUM CHLORIDE 0.9% 50 ML IVPB SCH (12:42)
--- NOTE | 2019-05-22 17:16 | PN ---
PROGRESS NOTE DATE OF SERVICE: 05/22/2019 REASON FOR FOLLOWUP: 1. Right leg wound. 2. Possible pneumonia. INTERVAL HISTORY: Patient is currently afebrile. The patient is breathing comfortably. Patient denies having any chest pain. Occasional cough. No nausea, vomiting. No abdominal pain. No diarrhea. PHYSICAL EXAMINATION: Blood pressure 151/85 with a pulse of 75. Temperature 98.4. He is 91% on 3 L nasal cannula. General description is an elderly male up in the chair in no distress. Respiratory system: Unlabored breathing. Decreased breath sounds at the bases. No wheeze. Heart S1, S2. Regular rate and rhythm. Abdomen soft. No tenderness. Legs are currently wrapped up. No obvious drainage on the dressing. LABS: Hemoglobin 10.1, white count 13.2, BUN of 38, creatinine 1.20. DIAGNOSTIC IMPRESSION AND PLAN: 1. Patient with right leg wound with secondary cellulitis, culture remains positive for MSSA. The patient is currently covered with daptomycin, transition to oral Doxycycline. 2. Possible pneumonia. Currently covered with Levaquin, okay to finish therapy with oral doxy. 3. Continue supportive care. MMODL / IJN: [id number] /
[2019-05-22 17:24] LABS: Glucose,Whole Blood 374 mg/dL (75-99)
[2019-05-22 19:54] LABS: Glucose,Whole Blood 244 mg/dL (75-99)
[2019-05-22] MEDS: ESCITALOPRAM 10 MG TAB PO SCH (20:36)
[2019-05-22] MEDS: LEVOFLOXACIN 500 MG TAB PO SCH (20:36)
[2019-05-22] MEDS: PRAVASTATIN SODIUM 40 MG TAB PO SCH (20:36)
[2019-05-22] MEDS: MONTELUKAST 10 MG TAB PO SCH (20:36)
[2019-05-22] MEDS: MAGNESIUM OXIDE 400 MG TAB PO SCH (20:36)
[2019-05-22] MEDS: INSULIN DETEMIR (LEVEMIR) 100 UNIT/ML SYR SQ SCH (20:39)
--- NOTE | 2019-05-22 23:42 | CONS ---
CONSULTATION PULMONARY/CRITICAL CARE CONSULTATION: DATE OF CONSULTATION: 05/22/2019 This is an 84-year-old gentleman who apparently presented to the emergency room brought in by the family on May 16 for shortness of breath. He apparently had been having shortness of breath for a number of days prior to admission. In addition, he has significant lower extremity edema despite Lasix at home. He also had significant exertional dyspnea as well as dyspnea at rest. The patient apparently also complained of slight fever on the day of his admission which was May 16. He apparently denied any chest pain or chest discomfort. He denied any cough or phlegm production. I was just consulted today for "sleep apnea syndrome." The patient apparently has been previously diagnosed with sleep apnea syndrome, but apparently was intolerant of the CPAP or BiPAP device. He needs to stop back into our office. He probably will need another sleep study whether it be in-home or in the Sleep Center. My partner Dr. Vieira can certainly evaluate him for obstructive sleep apnea syndrome, which he likely has. In addition, he sees my partner Dr. Sanabria for his chronic lung disease which is apparently quite severe. He was apparently told by my partner, Dr. Sanabria, that he had 40% lung function left. He claims he is a lifelong nonsmoker. I am not sure if he has asthma as the explanation for his chronic lung disease. I do not have office notes in front of me. Anyway, the patient is doing well. He has been here since the as I mentioned. A sleep apnea evaluation is certainly an outpatient evaluation. Current medications are quite numerous and include Singulair, pravastatin, Tylenol, NovoLog insulin, Symbicort, lisinopril, Lexapro, vitamin B12, insulin, magnesium oxide, metoprolol amlodipine, DuoNeb p.r.n., Biaxin, Protonix, Flonase nasal spray, Lasix, and NovoLog FlexPen. ALLERGIES: Also multiple and include PENICILLIN, LIPITOR ROCEPHIN KLONOPIN, CODEINE, AND HALDOL. In addition, he could not tolerate DILAUDID, RITALIN, PROPOFOL, SEROQUEL, SULFA ANTIBIOTICS VANCOMYCIN AND ATIVAN. PAST MEDICAL HISTORY: Includes chronic atrial fibrillation, CAD, heart failure, COPD, CVA, diabetes, GERD, GI bleed, hyperlipidemia, hypertension, myocardial infarction, DJD, pneumonia, sleep apnea syndrome, osteomyelitis, CHF, hypoxemic respiratory failure, paroxysmal atrial fibrillation, valvular heart disease in the form of moderate mitral and tricuspid regurgitation and severe pulmonary hypertension, right leg cellulitis, bilateral hand neuropathy, chronic diabetic wounds, renal cell cancer with partial nephrectomy and splenectomy of the left kidney. BPH, and peripheral vascular disease. He has also got stage 3 chronic kidney disease. He has had also infections with methicillin- resistant Staph aureus. SURGICAL HISTORY: Includes bypass grafting, heart catheterization, partial left nephrectomy, distal pancreatectomy, splenectomy, colonoscopy, EGD, surgery for deviated nasal septum, right carpal tunnel release, bilateral cataract surgery, bilateral laser surgery of the eyes. SOCIAL HISTORY: Significant in that he is a lifelong nonsmoker. Drinks occasionally. No illicit drug use. FAMILY HISTORY: Positive for mother with COPD and a father with myocardial infarction. REVIEW OF SYSTEMS: CONSTITUTIONAL: Negative. NEUROLOGIC: Negative. HEENT: Negative. CARDIOVASCULAR: Negative. PULMONARY; Shortness of breath, chronic. GI: Negative. : Negative. RHEUMATOLOGIC: Negative. IMMUNOLOGIC: Negative. ENDOCRINOLOGIC: Negative. DERMATOLOGIC: Negative. PHYSICAL EXAMINATION: Current vital signs are reviewed. Temperature 97.9, heart rate 66, respiratory rate 18, blood pressure 147/82, 3 L saturation 93%. 2 L saturation 96%. Appears in no acute distress. HEENT examination is grossly unremarkable. Mucous membranes are moist. Nasal O2 in place. NECK: Supple full range of motion. No adenopathy or thyromegaly. Neck veins are flat. CARDIOVASCULAR examination reveals regular rhythm and rate. He is in sinus rhythm. Heart rate is 60. No distinct murmurs noted. LUNGS reveal mostly clear breath sounds. A few scattered rhonchi and crackles. Breath sounds equal bilaterally. ABDOMEN: Obese. Bowel sounds are heard. EXTREMITIES reveal legs to be wrapped bilaterally. SKIN without any obvious lesions. NEUROLOGIC: Examination is brief but nonfocal. LABS: Reviewed. White count 13.2, hemoglobin 10.1, hematocrit 32.1, platelet count 374,000. Sodium 137, potassium 4.6, chloride 98, CO2 is 27, anion gap is 12. BUN and creatinine were 38 and 1.20. The rest of the labs look okay. Microbiology showing methicillin-resistant Staph aureus from the wound culture on the right leg. The most recent chest x-ray done on May 20 showing some retrocardiac opacity with air bronchograms. Medications are reviewed. ASSESSMENT: 1. Chronic bronchial asthma, apparently quite severe, with an FEV1 that is 40% of predicted. 2. Lifelong nontobacco use. 3. MRSA cellulitis involving the right leg. 4. History of sleep apnea syndrome, apparently intolerant previously of the CPAP/BiPAP device. 5. Morbid obesity. 6. Hyperlipidemia. 7. Diabetes mellitus. 8. Hypertension. 9. History of atrial fibrillation. 10.History of coronary artery disease. 11.History of congestive heart failure. 12.History of cerebrovascular accident. 13.History of gastroesophageal reflux disease. 14.Hyperlipidemia. 15.Hypertension by history. 16.Prior history of myocardial infarction. 17.Stage 3 chronic kidney disease. 18.Valvular heart disease in the form of moderate mitral and tricuspid regurgitation and severe pulmonary hypertension. 19.History of hypernephroma involving the left kidney, status post partial nephrectomy, splenectomy and distal pancreatectomy. 20.Multiple other medical problems and comorbidities. PLAN: From the pulmonary standpoint, the patient is doing fine. He is reasonably stable. His medications are reviewed. He does need an outpatient re-evaluation for sleep apnea syndrome. I suggest he see Dr. Vieira in followup once he is discharged. I talked to him about that. He can ask his lung doctor, Dr. Sanabria, to send him to Dr. Vieira for that. No additional recommendations are made. The COPD is not currently active in my opinion. We will continue to follow. MMODL / IJN: [id number] / NOHELIA
[2019-05-23 01:09] VITALS: TEMP 97.5
[2019-05-23 07:04] LABS: Glucose,Whole Blood 50 mg/dL (75-99)
[2019-05-23] MEDS: INSULIN ASPART (NovoLOG) 100 UNIT/ML VIAL SQ SCH ×2 (07:10→12:14)
[2019-05-23 07:17] LABS: Glucose,Whole Blood 65 mg/dL (75-99)
[2019-05-23] MEDS: PANTOPRAZOLE 40 MG TABLET PO SCH (07:24)
[2019-05-23 07:32] LABS: Glucose,Whole Blood 78 mg/dL (75-99)
[2019-05-23 07:33] VITALS: BP 143/66
[2019-05-23 08:40] LABS: Albumin 3.9 g/dL (3.5-5.0); Calcium 9.7 mg/dL (8.4-10.2); Magnesium 2.2 mg/dL (1.6-2.3); Potassium 4.6 mmol/L (3.5-5.1); Total Bilirubin 0.7 mg/dL (0.2-1.3); Total Protein 6.8 g/dL (6.3-8.2)
[2019-05-23] MEDS: IPRATROPIUM-ALBUTEROL 3 ML NEB INHALATION SCH ×2 (08:52→13:43)
[2019-05-23] MEDS: SYMBICORT 160-4.5 MCG INHALER INHALATION SCH (08:52)
[2019-05-23 08:55] LABS: Anisocytosis Slight; HCT 31.3 % (39.0-53.0); HGB 9.9 gm/dL (13.0-17.5); Hypochromasia Marked; MCH 27.7 pg (25.0-35.0); MCHC 31.5 g/dL (31.0-37.0); MCV 87.8 fL (80.0-100.0); Mean Platelet Volume 8.8; Platelet Count 391 k/uL (150-450); RBC 3.56 m/uL (4.30-5.90); WBC 8.6 k/uL (3.8-10.6)
[2019-05-23] MEDS: amLODIPine 5 MG TAB PO SCH (09:12)
[2019-05-23] MEDS: FUROSEMIDE 40 MG TAB PO SCH (09:12)
[2019-05-23] MEDS: LISINOPRIL 5 MG TAB PO SCH (09:12)
[2019-05-23] MEDS: ACETAMINOPHEN TAB 500 MG TAB PO SCH (09:12)
[2019-05-23] MEDS: METOPROLOL TARTRATE 12.5 MG TAB PO SCH (09:12)
[2019-05-23] MEDS: ENOXAPARIN 40 MG/0.4 ML SYRINGE SQ SCH (09:13)
[2019-05-23] MEDS: FLUTICASONE 50MCG/SPRAY NASAL 16GM EA NOSTRIL SCH (09:17)
[2019-05-23] MEDS ORDERED: LACTULOSE 20 GM/30 ML CUP PO ONE (09:30)
[2019-05-23] MEDS ORDERED: LACTULOSE 20 GM/30 ML CUP PO PRN (09:30)
[2019-05-23 10:02] LABS: Eosinophils # (M) 0.09 k/uL (0-0.7); Lymphocytes # (M) 1.29 k/uL (1.0-4.8); Monocytes # (M) 1.55 k/uL (0-1.0); Neutrophils # (M) 5.68 k/uL (1.3-7.7); Neutrophils % (M) 66 %; Nucleated Red Blood Cells 0 /100 WBC (0-0); Total Cells Counted 100
[2019-05-23 10:04] LABS: Target Cells Present
[2019-05-23 10:21] VITALS: BMI 36.0
--- NOTE | 2019-05-23 10:41 | P.PN ---
Subjective Patient is seen in follow-up for chronic kidney disease. Renal function is stable. Edema is gradually improving. Currently maintained on Lasix 40 mg twice daily. No vomiting or diarrhea. Oral intake is fair. Vital signs are stable. General: The patient appeared well nourished and normally developed. HEENT: Head exam is unremarkable. Neck is without jugular venous distension. LUNGS: Lungs are clear to auscultation and percussion. Breath sounds decreased. HEART: Rate and Rhythm are regular. First and second heart sounds normal. No murmurs, rubs or gallops. ABDOMEN: Abdominal exam reveals normal bowel sounds. Non-tender and non-distend ed. No evidence of peritonitis. EXTREMITITES: 1+ edema. Objective - Vital Signs Vital signs: Vital Signs Temp 97.5 F L 05/23/19 00:10 Pulse 64 05/23/19 09:05 Resp 16 05/23/19 07:00 BP 143/66 05/23/19 07:00 Pulse Ox 87 L 05/23/19 10:04 Intake & Output 05/22/19 05/23/19 05/23/19 18:59 06:59 18:59 Intake Total 200 Output Total 100 Balance -100 200 Weight 110.7 kg 110.7 kg Intake: Oral 200 Output: Urine 100 Other: Voiding Method Toilet Toilet Toilet Urinal Urinal Urinal # Voids 1 3 - Labs CBC & Chem 7: 05/23/19 07:15 05/23/19 07:15 Labs: Abnormal Lab Results - Last 24 Hours (Table) 05/22/19 05/22/19 05/22/19 Range/Units 11:51 17:12 19:52 RBC (4.30-5.90) m/uL Hgb (13.0-17.5) gm/dL Hct (39.0-53.0) % RDW (11.5-15.5) % Monocytes # (Manual) (0-1.0) k/uL Chloride (98-107) mmol/L Carbon Dioxide (22-30) mmol/L BUN (9-20) mg/dL Glucose (74-99) mg/dL POC Glucose (mg/dL) 362 H 374 H 244 H (75-99) mg/dL 05/23/19 05/23/19 05/23/19 Range/Units 06:53 07:15 07:15 RBC 3.56 L (4.30-5.90) m/uL Hgb 9.9 L (13.0-17.5) gm/dL Hct 31.3 L (39.0-53.0) % RDW 18.0 H (11.5-15.5) % Monocytes # (Manual) 1.55 H (0-1.0) k/uL Chloride 97 L (98-107) mmol/L Carbon Dioxide 31 H (22-30) mmol/L BUN 39 H (9-20) mg/dL Glucose 48 L* (74-99) mg/dL POC Glucose (mg/dL) 50 L (75-99) mg/dL 05/23/19 Range/Units 07:15 RBC (4.30-5.90) m/uL Hgb (13.0-17.5) gm/dL Hct (39.0-53.0) % RDW (11.5-15.5) % Monocytes # (Manual) (0-1.0) k/uL Chloride (98-107) mmol/L Carbon Dioxide (22-30) mmol/L BUN (9-20) mg/dL Glucose (74-99) mg/dL POC Glucose (mg/dL) 65 L (75-99) mg/dL Microbiology - Last 24 Hours (Table) 05/17/19 19:47 Blood Culture - Preliminary Blood No Growth after 120 hours 05/16/19 18:58 Blood Culture - Final Blood No Growth after 144 hours Assessment and Plan Plan: Assessment: 1. Chronic kidney disease stage III secondary to cardiorenal syndrome. Renal function stable. Creatinine 1.23. UA benign. 2. History of left renal cancer status post partial nephrectomy. 3. Insulin-dependent diabetes mellitus. 4. Volume overload. Improving with diuresis. 5. Acute on chronic systolic CHF with ejection fraction of 45-50% with mild to moderate mitral regurgitation. 6. Hypertension with chronic kidney disease. Controlled. Plan: Maintain Lasix 40 mg orally twice daily. Low-salt diet. Continue to monitor renal function and urine output. Stable to be discharged home from nephrology standpoint. Repeat BMP and magnesium level 2-3 days postdischarge. Follow up outpatient in the next 2 weeks.
[2019-05-23 11:17] LABS: Glucose,Whole Blood 156 mg/dL (75-99)
[2019-05-23] MEDS: DAPTOmycin 500 MG in SODIUM CHLORIDE 0.9% 50 ML IVPB SCH (12:14)
--- NOTE | 2019-05-23 12:35 | P.DS ---
Providers Date of admission: 05/16/19 19:45 Expected date of discharge: 05/23/19 Attending physician: Luis Quesada Consults: 05/16/19 19:44 Consult Physician Routine Consulting Provider: Lukas Lr Consult Reason/Comments: chf Do you want consulting provider notified?: Yes Consult Physician Routine Consulting Provider: Davey Olivera Consult Reason/Comments: arf Do you want consulting provider notified?: Yes 05/18/19 12:16 Consult Physician Routine Consulting Provider: Katelynn Rivas Consult Reason/Comments: Peritonitis, right leg wound Do you want consulting provider notified?: Yes 05/21/19 13:34 Consult Physician Routine Consulting Provider: Devi Vieira Consult Reason/Comments: Sleep apnea Do you want consulting provider notified?: Yes Primary care physician: Luis Quesada - Discharge Diagnosis(es) (1) Cellulitis of left leg Current Visit: Yes Status: Acute (2) CHF (congestive heart failure) Current Visit: Yes Status: Acute (3) Diabetic foot ulcer Current Visit: Yes Status: Acute (4) Acute systolic (congestive) heart failure Current Visit: No Status: Acute (5) Atrial fibrillation Current Visit: No Status: Acute (6) Cellulitis of right leg Current Visit: No Status: Acute (7) Coronary arteriosclerosis Current Visit: No Status: Acute (8) Diabetes mellitus Current Visit: No Status: Acute (9) HTN (hypertension) Current Visit: No Status: Acute (10) Hx of CABG Current Visit: No Status: Acute (11) Hyperlipemia Current Visit: No Status: Acute (12) Hypoxia Current Visit: No Status: Acute (13) Obesity Current Visit: No Status: Acute (14) Oxygen dependent Current Visit: No Status: Acute (15) Pneumonia Current Visit: No Status: Acute (16) Chronic renal failure, stage 3 (moderate) Current Visit: Yes Status: Acute (17) H/O left nephrectomy Current Visit: Yes Status: Acute (18) H/O renal cell carcinoma Current Visit: Yes Status: Acute (19) Diastolic CHF Current Visit: Yes Status: Acute Hospital Course: Fan is a 84-year-old white male well-known to me from the practice. He follows up with my partner typically. He is been hospitalized for acute renal failure, cellulitis due to MRSA the bilateral lower extremities along with mild congestive heart failure and atrial fibrillation. He is currently being seen by infectious disease, all of which are exacerbations of chronic disease. Quincy is very noncompliant. He supposed to have a CPAP which she has not used in years. He is currently on daptomycin for MRSA and Levaquin for possible pneumonia. Infectious disease recommends doxycycline at discharge. His kidney function is much improved and he is been cleared by nephrology and cardiology for discharge soon. Today, 05/22/2019, Fan complains of some ongoing weakness and shortness breath with exertion. He is not interested in any rehabilitation, as and refused physical therapy on several occasions while hospitalized. He is able to stand immediately to the bathroom. He denies any current chest pains, pressures, or shortness of breath at rest. He denies any urinary frequency or urgency. I discussed to him going home soon. He phillip on IV steroids and still requiring some oxygen to maintain saturations. 05/23/2019: Will be evaluated for oxygen before his discharge. He is in the past refused anticoagulation and the risks and benefits were discussed with him not taking Lovenox. This will be discontinued. He was warned and instructions were given to not take his Lexapro while taking the Levaquin antibiotics. He will follow-up with his PCP in the next several days along cardiology, and pulmonology for a CPAP evaluation. Patient Condition at Discharge: Fair Plan - Discharge Summary Discharge Rx Participant: Yes New Discharge Prescriptions: New Doxycycline [Vibramycin] 100 mg PO BID #20 cap Levofloxacin [Levaquin] 500 mg PO Q24H #5 tab amLODIPine [Norvasc] 5 mg PO DAILY #30 tab Continue Montelukast [Singulair] 10 mg PO HS Pravastatin Sodium 40 mg PO HS Acetaminophen Tab [Tylenol] 1,000 mg PO BID Pantoprazole [Protonix] 40 mg PO DAILY #30 tab Insulin Aspart [NovoLOG Flexpen] See Protocol SQ AC-TID PRN PRN Reason: Blood Sugar - High Budesonide-Formot 160-4.5 Mcg [Symbicort 160-4.5 Mcg Inhaler] 2 puff INHALATION RT-BID Lisinopril [Zestril] 5 mg PO DAILY Cyanocobalamin (Vitamin B-12) [Vitamin B-12] 1,000 mcg PO TUFR Fluticasone Nasal [place] [Flonase Nasal [place]] 2 spray EA NOSTRIL DAILY #1 bottle Furosemide [Lasix] 40 mg PO BID #60 tab Insulin Aspart [NovoLOG Flexpen] 17 units SQ TID-W/MEALS #0 Metoprolol Tartrate [Lopressor] 12.5 mg PO BID Magnesium Oxide [Mag-Ox] 400 mg PO HS Insulin Detemir [Levemir Flextouch] 60 units SQ HS amLODIPine [Norvasc] 10 mg PO HS Ipratropium-Albuterol Nebulize [Duoneb 0.5 mg-3 mg/3 ml Soln] 3 ml INHALATION RT-QID Escitalopram Oxalate [Lexapro] 10 mg PO HS #0 Discontinued Clarithromycin [Biaxin] 500 mg PO BID Discharge Medication List Montelukast [Singulair] 10 mg PO HS 12/21/14 [History] Pravastatin Sodium 40 mg PO HS 02/07/16 [History] Acetaminophen Tab [Tylenol] 1,000 mg PO BID 03/17/17 [History] Pantoprazole [Protonix] 40 mg PO DAILY #30 tab 03/21/17 [Rx] Insulin Aspart [NovoLOG Flexpen] See Protocol SQ AC-TID PRN 11/12/17 [History] Budesonide-Formot 160-4.5 Mcg [Symbicort 160-4.5 Mcg Inhaler] 2 puff INHALATION RT-BID 11/13/17 [History] Lisinopril [Zestril] 5 mg PO DAILY 01/26/18 [History] Cyanocobalamin (Vitamin B-12) [Vitamin B-12] 1,000 mcg PO TUFR 01/15/19 [History] Fluticasone Nasal [place] [Flonase Nasal [place]] 2 spray EA NOSTRIL DAILY #1 bottle 01/22/19 [Rx] Furosemide [Lasix] 40 mg PO BID #60 tab 01/22/19 [Rx] Insulin Aspart [NovoLOG Flexpen] 17 units SQ TID-W/MEALS #0 01/22/19 [Rx] Insulin Detemir [Levemir Flextouch] 60 units SQ HS 02/10/19 [History] Magnesium Oxide [Mag-Ox] 400 mg PO HS 02/10/19 [History] Metoprolol Tartrate [Lopressor] 12.5 mg PO BID 02/10/19 [History] amLODIPine [Norvasc] 10 mg PO HS 04/02/19 [History] Ipratropium-Albuterol Nebulize [Duoneb 0.5 mg-3 mg/3 ml Soln] 3 ml INHALATION RT-QID 04/03/19 [History] Doxycycline [Vibramycin] 100 mg PO BID #20 cap 05/21/19 [Rx] Escitalopram Oxalate [Lexapro] 10 mg PO HS #0 05/23/19 [Rx] Levofloxacin [Levaquin] 500 mg PO Q24H #5 tab 05/23/19 [Rx] amLODIPine [Norvasc] 5 mg PO DAILY #30 tab 05/23/19 [Rx] Follow up Appointment(s)/Referral(s): Luis Quesada Jr, DO [Primary Care Provider] - 1-2 days [facility] [NON-STAFF] - As Needed (oxygen ) Marina Olivera MD [REFERRING] - 2 Weeks [facility], [NON-STAFF] - As Needed Activity/Diet/Wound Care/Special Instructions: aqua cell silver to right leg wound, then guaze and wrap with zayra wrap daily Care Plan Goals (MU): Do not take the escitalopram [Lexapro] while taking the Levaquin. He may resume it once Levaquin is gone.
--- NOTE | 2019-05-23 12:52 | CDI ---
Documentation Clarification Form Date: 05/23/2019 12:15:23 PM From: Verona Javed RN CCDS Admit Date: 05/16/2019 07:45:00 PM Patient Name: Quincy Carson Visit Number: [id number] Discharge Date: ATTENTION: The Clinical Documentation Specialists (CDI) and [facility] Coding Staff appreciate your assistance in clarifying documentation. Please respond to the clarification below the line at the bottom and electronically sign. The CDI & [facility] Coding staff will review the response and follow-up if needed. Please note: Queries are made part of the Legal Health Record. If you have any questions, please contact the author of this message via ITS. Dr. Jono Key MD Patient with admission to hospital with Sepsis in this patient who did have a fever, elevated white count with ____ respiratory system. Is Documented in the ID consult 05/18 History/Risk Factors: 84-year-old male presents to the ED with significant shortness of breath with lower extremity edema. Medical History - COPD; Sleep Apnea; HTN; MA; COPD; CHF; Sleep Apnea; DM; Diabetic Wounds Clinical Indicators: WBC 17.6 Right Leg Wound Culture: MRSA Vitals signs on admission: 133/66 67 101.3F Oral 28 88% ra Other Clinical Indicators: CXR 05/16 Pulmonary interstitial fibrosis. CXR 05/20 Retrocardiac opacity with air bronchograms is better visualized on todays exam than the prior corresponding the patients clinical pneumonia. ID [id number] The patient did have lower extremity swelling and redness with a small wound culture positive for MRSA, possibly the source of his sepsis. Antibiotics:05/16 Rocephin Ivpb x 1; Levaquin Ivpb x1; 05/18 Daptomycin Ivpb; 05/18 Levaquin Ivpb x1 05/20 Levaquin PO In your professional opinion, please clarify if these findings signify one of the following conditions, whether the condition is POA, and cause, if known: Condition * Sepsis ruled out * Sepsis POA * Other, please specify * Unable to determine Identify the (suspected) organism Link or clarify if there is associated (due to/with): Organ failure Shock SIRS Criteria (2 or more of the following may indicate SIRS): -Temperature < 96.8F (36C) or > 101.0F (38.3C) -Heart Rate > 90 bpm -Respiratory Rate > 20 breaths/min or PaCO2 < 32 mmHg -White Blood Cell Count > 12,000 or < 4,000 cells/mm3 or > 10% bands -Lactate >2.0 mmol/L (>4.0 is equivalent to septic shock) (Last Revision: August 2017) MTDD
--- NOTE | 2019-05-23 12:54 | CDI ---
Documentation Clarification Form Date: 05/23/2019 12:10:00 PM From: Verona Javed RN CCDS Admit Date: 05/16/2019 07:45:00 PM Patient Name: Quincy Carson Visit Number: [id number] Discharge Date: ATTENTION: The Clinical Documentation Specialists (CDI) and [facility] Coding Staff appreciate your assistance in clarifying documentation. Please respond to the clarification below the line at the bottom and electronically sign. The CDI & [facility] Coding staff will review the response and follow-up if needed. Please note: Queries are made part of the Legal Health Record. If you have any questions, please contact the author of this message via ITS. Dr. Jono Key MD Patient did have presentation to hospital with a fever and concern for possible pneumonia, community acquired, confirmed with repeat x-ray. Is documented in the ID progress note 05/20 History/Risk Factors: Medical History - COPD; Sleep Apnea; HTN; PA; COPD; CHF; Sleep Apnea; DM; Diabetic Wounds Clinical Indicators: WBC 17.6 Right Leg Wound Culture: MRSA Vitals signs on admission: 133/66 67 101.3F Oral 28 88% ra Other Clinical Indicators: CXR 05/16 Pulmonary interstitial fibrosis. CXR 05/20 Retrocardiac opacity with air bronchograms is better visualized on todays exam than the prior corresponding the patients clinical pneumonia. ID Progress note 05/20 We will add Levaquin to cover for his pneumonia and monitor his clinical course closely Antibiotics:05/16 Rocephin Ivpb x 1; Levaquin Ivpb x1; 05/18 Levaquin Ivpb x1 05/20 Levaquin PO Definition of Present on Admission (POA): A diagnosis present at the time the order for admission to inpatient status was written. For each diagnosis, documentation must be clear to determine if the condition was present at the time of the patients inpatient admission or developed during the hospital stay. Please clarify if Pneumonia was POA: ____Y = Yes, the condition was present at the time of the order for inpatient admission. ____N = No, the condition was not present at the time of the order for inpatient admission. ___XXX_W = Clinically undetermined if the condition was present at the time of the order for inpatient admission. (Last Revision: Apr 2018) MTDD
[2019-05-23 13:56] VITALS: PULSE 64; RESP 18
--- NOTE | 2019-05-23 15:38 | P.PN ---
Subjective Progress Note Date: 05/23/19 Principal diagnosis: Chronic bronchial asthma, severe persistent, with an FEV1 of 40% of predicted On 05/23/2019 patient is seen in follow-up on medical surgical floor. He sitting up in the chair, in no acute distress, on 2 L of oxygen his pulse ox of 96%, no fever, no chills, hemodynamically stable, no complaints of chest pain, his breathing has improved since admission, patient is reasonably stable, patient can be evaluated for sleep apnea on an outpatient basis. Patient is stable for discharge home today Objective - Vital Signs Vital signs: Vital Signs Temp 97.5 F L 05/23/19 00:10 Pulse 64 05/23/19 13:55 Resp 18 05/23/19 13:55 BP 143/66 05/23/19 07:00 Pulse Ox 87 L 05/23/19 10:04 Intake & Output 05/22/19 05/23/19 05/23/19 18:59 06:59 18:59 Intake Total 437 Output Total 100 Balance -100 437 Weight 110.7 kg 110.7 kg Intake: Oral 437 Output: Urine 100 Other: Voiding Method Toilet Toilet Toilet Urinal Urinal Urinal # Voids 1 3 1 - Exam GENERAL EXAM: Alert, very pleasant, 84-year-old white male, comfortable in no apparent distress. HEAD: Normocephalic/atraumatic. EYES: Normal reaction of pupils, equal size. Conjunctiva pink, sclera white. NOSE: Clear with pink turbinates. THROAT: No erythema or exudates. NECK: No masses, no JVD, no thyroid enlargement, no adenopathy. CHEST: No chest wall deformity. Symmetrical expansion. LUNGS: Equal air entry with no crackles, wheeze, rhonchi or dullness. CVS: Regular rate and rhythm, normal S1 and S2, no gallops, no murmurs, no rubs ABDOMEN: Soft, nontender. No hepatosplenomegaly, normal bowel sounds, no guarding or rigidity. EXTREMITIES: No clubbing, no edema, no cyanosis, 2+ pulses and upper and lower extremities. MUSCULOSKELETAL: Muscle strength and tone normal. SPINE: No scoliosis or deformity SKIN: No rashes CENTRAL NERVOUS SYSTEM: Alert and oriented -3. No focal deficits, tone is normal in all 4 extremities. PSYCHIATRIC: Alert and oriented -3. Appropriate affect. Intact judgment and insight. - Labs CBC & Chem 7: 05/23/19 07:15 05/23/19 07:15 Labs: Abnormal Lab Results - Last 24 Hours (Table) 05/22/19 05/22/19 05/23/19 Range/Units 17:12 19:52 06:53 RBC (4.30-5.90) m/uL Hgb (13.0-17.5) gm/dL Hct (39.0-53.0) % RDW (11.5-15.5) % Monocytes # (Manual) (0-1.0) k/uL Chloride (98-107) mmol/L Carbon Dioxide (22-30) mmol/L BUN (9-20) mg/dL Glucose (74-99) mg/dL POC Glucose (mg/dL) 374 H 244 H 50 L (75-99) mg/dL 05/23/19 05/23/19 05/23/19 Range/Units 07:15 07:15 07:15 RBC 3.56 L (4.30-5.90) m/uL Hgb 9.9 L (13.0-17.5) gm/dL Hct 31.3 L (39.0-53.0) % RDW 18.0 H (11.5-15.5) % Monocytes # (Manual) 1.55 H (0-1.0) k/uL Chloride 97 L (98-107) mmol/L Carbon Dioxide 31 H (22-30) mmol/L BUN 39 H (9-20) mg/dL Glucose 48 L* (74-99) mg/dL POC Glucose (mg/dL) 65 L (75-99) mg/dL 05/23/19 Range/Units 11:06 RBC (4.30-5.90) m/uL Hgb (13.0-17.5) gm/dL Hct (39.0-53.0) % RDW (11.5-15.5) % Monocytes # (Manual) (0-1.0) k/uL Chloride (98-107) mmol/L Carbon Dioxide (22-30) mmol/L BUN (9-20) mg/dL Glucose (74-99) mg/dL POC Glucose (mg/dL) 156 H (75-99) mg/dL Microbiology - Last 24 Hours (Table) 12/27/19 19:47 Blood Culture - Preliminary Blood No Growth after 120 hours 05/16/19 18:58 Blood Culture - Final Blood No Growth after 144 hours Assessment and Plan Plan: Assessment: #1. Severe persistent bronchial asthma, with a baseline FEV1 of 40% of predicted, not particularly active at this time #2. Lifelong nontobacco use #3. History of MRSA cellulitis involving the right leg #4. History of obstructive sleep apnea apparently intolerant to CPAP device #5. Morbid obesity #6. Hyperlipidemia #7. Diabetes mellitus type 2 #8. Hypertension #9. History of atrial fibrillation #10. History of CVA #11. History of GERD/reflux #12. History of hypertension #13. Hyperlipidemia #14. Prior history of myocardial infarction #15. Stage III chronic kidney disease #16. Valvular heart disease, moderate mitral and tricuspid regurgitation and severe pulmonary hypertension #17. 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 Multiple other medical problems and comorbidities Plan: Patient is doing well, breathing is stable, vital signs are stable, no acute events overnight, from pulmonary perspective patient is stable for discharge home today, she will need outpatient evaluation for sleep apnea he will follow up with Dr. Vicente in the office and he will be set up to see Dr. Vieira in the sleep center. I performed a history & physical examination of the patient and discussed their management with my nurse practitioner, Juanita Miller. I reviewed the nurse practitioner's note and agree with the documented findings and plan of care. Lung sounds are positive for diminished breath sounds The findings and the impression was discussed with the patient. I attest to the documentation by the nurse practitioner. Time with Patient: Less than 30
--- NOTE | 2019-05-23 19:57 | PN ---
PROGRESS NOTE DATE OF SERVICE: 05/23/2019 REASON FOR FOLLOW UP: 1. Right leg wound. 2. Pneumonia. INTERVAL HISTORY: The patient was seen on rounds earlier this afternoon. The patient has been afebrile, has been breathing comfortably. Denies having any chest pain. Did have some cough, not bringing up any sputum. No nausea, vomiting, abdominal pain. Some pain to the right leg area. PHYSICAL EXAMINATION: Blood pressure 143/66, pulse of 80, temp of 98. He is 97% on 2 L nasal cannula. General description is an elderly male up in the bed in no distress. Respiratory system: Unlabored breathing, a few crackles on the right, no wheeze. Heart S1, S2. Regular rate and rhythm. Abdomen soft, no tenderness. ( ) no drainage on the dressing. LABS: Hemoglobin 9.1, white count 8.6. Creatinine is 0.23. DIAGNOSTIC IMPRESSION AND PLAN: 1. Patient with right lower extremity wound with secondary cellulitis, culture positive for MRSA, overall improvement on daptomycin. 2. The patient has question of pneumonia, has been afebrile. No sputum will be collected. Plan is to finish therapy with oral doxycycline. Local wound care to the right leg with ( ) dressing and continue supportive care. MMODL / IJN: [id number] /
--- NOTE | 2019-05-27 07:35 | CDI ---
Documentation Clarification Form Date: 05/23/2019 12:15:23 PM From: Verona Javed RN CCDS Admit Date: 05/16/2019 07:45:00 PM Patient Name: Quincy Carson Visit Number: [id number] Discharge Date: ATTENTION: The Clinical Documentation Specialists (CDI) and [facility] Coding Staff appreciate your assistance in clarifying documentation. Please respond to the clarification below the line at the bottom and electronically sign. The CDI & [facility] Coding staff will review the response and follow-up if needed. Please note: Queries are made part of the Legal Health Record. If you have any questions, please contact the author of this message via ITS. Dr. Jono Key MD Patient with admission to hospital with Sepsis in this patient who did have a fever, elevated white count with ____ respiratory system. Is Documented in the ID consult 05/18 History/Risk Factors: 84-year-old male presents to the ED with significant shortness of breath with lower extremity edema. Medical History - COPD; Sleep Apnea; HTN; [place]; COPD; CHF; Sleep Apnea; DM; Diabetic Wounds Clinical Indicators: WBC 17.6 Right Leg Wound Culture: MRSA Vitals signs on admission: 133/66 67 101.3F Oral 28 88% ra Other Clinical Indicators: CXR 05/16 Pulmonary interstitial fibrosis. CXR 05/20 Retrocardiac opacity with air bronchograms is better visualized on todays exam than the prior corresponding the patients clinical pneumonia. ID [id number] The patient did have lower extremity swelling and redness with a small wound culture positive for MRSA, possibly the source of his sepsis. Antibiotics:05/16 Rocephin Ivpb x 1; Levaquin Ivpb x1; 05/18 Daptomycin Ivpb; 05/18 Levaquin Ivpb x1 05/20 Levaquin PO In your professional opinion, please clarify if these findings signify one of the following conditions, whether the condition is POA, and cause, if known: Condition Sepsis ruled out ---->Sepsis POA Other, please specify Unable to determine Identify the (suspected) organism____MRSA -->not present Link or clarify if there is associated (due to/with): Organ failure Shock SIRS Criteria (2 or more of the following may indicate SIRS): -Temperature < 96.8F (36C) or > 101.0F (38.3C) -Heart Rate > 90 bpm -Respiratory Rate > 20 breaths/min or PaCO2 < 32 mmHg -White Blood Cell Count > 12,000 or < 4,000 cells/mm3 or > 10% bands -Lactate >2.0 mmol/L (>4.0 is equivalent to septic shock) (Last Revision: August 2017) MTDD
--- NOTE | 2019-05-28 08:56 | CDI ---
Documentation Clarification Form Date: 05/28/2019 From: Unique Dunaway Phone: If you have a question about this query, please contact Rand Johnson, Wedger Machine at [phone] between 8am and 5pm. Admit Date: 05/16/19 Discharge Date:05/23/19 Patient Name: Quincy Carson Visit Number: [id number] ATTENTION: The Clinical Documentation Specialists (CDI) and [facility] Coding Staff appreciate your assistance in clarifying documentation. Please respond to the clarification below the line at the bottom and electronically sign. The CDI & [facility] Coding staff will review the response and follow-up if needed. Please note: Queries are made part of the Legal Health Record. If you have any questions, please contact the author of this message via ITS. Dear Dr. Jono Key Cellulitis of the left and right leg is documented in the Dr. Quesada's progress notes, Dr. Rivas's progress notes and your progress notes. Patient history/risk factors: Diabetes, peripheral vascular disease, diabetic wound to the lower extremities Clinical Indicators: severe lower extremity edema, redness Labs: Right leg wound culture - MRSA Vital Signs: T. 101.3, P. 64, R. 19, BP 133/66 Treatment: Legs wrapped Medication: IV Levaquin switched to IV Daptomycin In your professional opinion, can cellulitis be further specified as one of the following? --> Associated with diabetes Not associated with diabetes Other (Please specify) Unable to Determine MTDD
--- NOTE | 2019-05-28 09:26 | CDI ---
Documentation Clarification Form Date: From: Phone: If you have a question about this query, please contact Rand Johnson Material Reclaimer at [phone] between 8am and 5pm. Admit Date: Discharge Date: Patient Name: Visit Number: ATTENTION: The Clinical Documentation Specialists (CDI) and [facility] Coding Staff appreciate your assistance in clarifying documentation. Please respond to the clarification below the line at the bottom and electronically sign. The CDI & [facility] Coding staff will review the response and follow-up if needed. Please note: Queries are made part of the Legal Health Record. If you have any questions, please contact the author of this message via ITS. Dear Dr. Jono Key The patient presented with possible pneumonia and sepsis History/Risk Factors: Presented to the ED with significant shortness of breath and lower extremity edema, COPD, severe persistent asthma, sleep apnea, pulmonary fibrosis. Patient has a history of hypoxic respiratory failure. Clinical Indicators: Hypoxia documented in your 05/22 progress note and discharge summary Lab findings: Carbon dioxide 33 on 05/20, Radiology findings: 05/20 Retrocardiac opacity with air bronchograms is better visualized on today's exam than the prior corresponding the patient's clinical pneumonia. Vital Signs: 05/16 - O2 88% on RA, 05/20 to 05/23 - 87% and 88% on RA. Respirations on 05/16 up to 25 & 28; 05/21 & 05/22 16 to 18 Lung/Breathing Assessment: Normal lung sounds bilaterally in the ED, 05/21 & 05/22 clear no wheezes or rales. 05/18 no tachypnea or accessory muscle of respiratory use. Treatment: Duoneb breathing treatments Oxygen tx: 05/16 4 lpm/nasal cannula; 05/22 3 lpm and 8 lpm per nasal cannula In your professional opinion, can you please clarify the hypoxia? Acute respiratory distress Acute respiratory insufficiency Respiratory Failure (please specify) acute, chronic, acute on chronic Other, please specify Unable to determine NO PATIENT DATA!!! who ? MTDD
--- NOTE | 2019-05-29 21:13 | CDI ---
Documentation Clarification Form Date: 05/29/19 From: Unique Dunaway Phone: If you have a question about this query, please contact Rand Johnson, Custodial Manager at [phone] between 8am and 5pm. Admit Date: 05/16/19 Discharge Date:05/23/19 Patient Name: Quincy Carson Visit Number: [id number] ATTENTION: The Clinical Documentation Specialists (CDI) and [facility] Coding Staff appreciate your assistance in clarifying documentation. Please respond to the clarification below the line at the bottom and electronically sign. The CDI & [facility] Coding staff will review the response and follow-up if needed. Please note: Queries are made part of the Legal Health Record. If you have any questions, please contact the author of this message via ITS. Dear Dr. Key The patient presented with possible pneumonia and sepsis History/Risk Factors: Presented to the ED with significant shortness of breath and lower extremity edema, COPD, severe persistent asthma, sleep apnea, pulmonary fibrosis. Patient has a history of hypoxic respiratory failure. Clinical Indicators: Hypoxia documented in your 05/22 progress note and discharge summary Lab findings: Carbon dioxide 33 on 05/20, Radiology findings: 05/20 Retrocardiac opacity with air bronchograms is better visualized on todays' exam than the prior corresponding the patient's clinical pneumonia. Vital Signs: 05/16 - O2 88% on RA, 05/20 to 05/23 - 87% and 88% on RA. Repsirations on 05/16 up to 25 & 28; 05/21 & 05/22 16 to 18 Lung/Breathing Assessment: Normal lung sounds bliaterally in the ED, 05/21 & 05/22 clear no wheezes or rales. 05/18 no tachypnea or accessory muscle of respiratory use. Treatment: Duoneb breathing treatments Oxygen tx: 05/16 4 lpm/nasal cannula; 05/22 3 lpm and 8 lpm per nasal cannula In your professional opinion, can you please clarify the hypoxia? Acute respiratory distress Acute respiratory insufficiency -----> Respiratory Failure (please specify) acute, chronic, acute on chronic Other, please specify Unable to determine MTDD
== END 2019-05-23 15:10 | disposition home health service (06) | DRG 871 ==
LOC: EC 16:25 → 4SSUR 19:45
PROVIDERS: ADMIT Family Medicine; ATTEND Family Medicine
DX: A41.9 Sepsis, unspecified organism (principal); I50.23 Acute on chronic systolic (congestive) heart failure; J18.9 Pneumonia, unspecified organism; J96.01 Acute respiratory failure with hypoxia; I13.0 Hypertensive heart and chronic kidney disease with heart failure and stage 1 through stage 4 chronic kidney disease, or unspecified chronic kidney disease; I48.19 Other persistent atrial fibrillation; J44.0 Chronic obstructive pulmonary disease with (acute) lower respiratory infection; N17.9 Acute kidney failure, unspecified; L03.115 Cellulitis of right lower limb; L03.116 Cellulitis of left lower limb; I27.20 Pulmonary hypertension, unspecified; L97.509 Non-pressure chronic ulcer of other part of unspecified foot with unspecified severity; J98.6 Disorders of diaphragm; E11.22 Type 2 diabetes mellitus with diabetic chronic kidney disease; E11.40 Type 2 diabetes mellitus with diabetic neuropathy, unspecified; E11.51 Type 2 diabetes mellitus with diabetic peripheral angiopathy without gangrene; E11.621 Type 2 diabetes mellitus with foot ulcer; J84.10 Pulmonary fibrosis, unspecified; N18.3 Chronic kidney disease, stage 3 (moderate); E66.01 Morbid (severe) obesity due to excess calories; E78.5 Hyperlipidemia, unspecified; F32.9 Major depressive disorder, single episode, unspecified; F41.9 Anxiety disorder, unspecified; I08.1 Rheumatic disorders of both mitral and tricuspid valves; I25.10 Atherosclerotic heart disease of native coronary artery without angina pectoris; I25.2 Old myocardial infarction; I25.5 Ischemic cardiomyopathy; J45.50 Severe persistent asthma, uncomplicated; M19.041 Primary osteoarthritis, right hand; M19.042 Primary osteoarthritis, left hand; M47.9 Spondylosis, unspecified; G47.33 Obstructive sleep apnea (adult) (pediatric); N40.0 Benign prostatic hyperplasia without lower urinary tract symptoms; K21.9 Gastro-esophageal reflux disease without esophagitis; K44.9 Diaphragmatic hernia without obstruction or gangrene; Z79.4 Long term (current) use of insulin; Z79.51 Long term (current) use of inhaled steroids; Z79.899 Other long term (current) drug therapy; Z85.528 Personal history of other malignant neoplasm of kidney; Z86.14 Personal history of Methicillin resistant Staphylococcus aureus infection; Z88.1 Allergy status to other antibiotic agents; Z88.5 Allergy status to narcotic agent; Z88.0 Allergy status to penicillin; Z88.2 Allergy status to sulfonamides; Z88.8 Allergy status to other drugs, medicaments and biological substances; Z87.01 Personal history of pneumonia (recurrent); Z87.891 Personal history of nicotine dependence; Z90.411 Acquired partial absence of pancreas; Z90.5 Acquired absence of kidney; Z90.81 Acquired absence of spleen; Z86.73 Personal history of transient ischemic attack (TIA), and cerebral infarction without residual deficits; Z95.1 Presence of aortocoronary bypass graft; Z98.42 Cataract extraction status, left eye; Z98.41 Cataract extraction status, right eye; Z96.1 Presence of intraocular lens; Z87.440 Personal history of urinary (tract) infections; Z91.19 Patient's noncompliance with other medical treatment and regimen; Z82.49 Family history of ischemic heart disease and other diseases of the circulatory system; Z82.5 Family history of asthma and other chronic lower respiratory diseases
CPT/HCPCS: 36415; 70450; 71046; 80053; 81003; 83605; 83735; 83880; 84100; 84484; 85025; 85610; 85730; 87040; 87070; 87075; 87077; 87186; 87205; 87502; 93005; 94640; 96365; 96367; 96375; 99285

== ENCOUNTER 2019-07-14 12:22 | Inpatient (IN) | payer MEDICARE, BC ==
[2019-07-14] MEDS ORDERED: methylPREDNISolone SOD SUCCI 125 MG/2 ML VIAL IV STA (12:39)
[2019-07-14] MEDS ORDERED: IPRATROPIUM 0.5 MG/2.5 ML NEBU INHALATION STA (12:39)
[2019-07-14] MEDS ORDERED: ALBUTEROL NEBULIZED 2.5 MG/3 ML INHALATION STA (12:39)
--- NOTE | 2019-07-14 13:05 | ED ---
General Adult HPI - General Chief complaint: Shortness of Breath Stated complaint: JAYME/fever Time Seen by Provider: 07/14/19 12:25 Source: patient, RN notes reviewed, old records reviewed Mode of arrival: wheelchair Limitations: no limitations - History of Present Illness Initial comments: This is an 84-year-old male who presents emergency Department with a past medical history significant for COPD. Patient states she was recently in the hospital for COPD. Patient states over the last couple of days his breathing is become worse he did call EMS today but when they arrived he was feeling better so he sent them on their way. Patient states he again got worse and he has been coughing quite a bit so decided come the emergency department. Patient states he had a fever at home and has not taken any medication for. Patient denies any chest pain or palpitations. Patient denies any lightheadedness or dizziness. Patient denies any headache patient denies numbness weakness. Patient denies any abdominal pain patient denies any nausea vomiting diarrhea. - Related Data Home Medications Medication Instructions Recorded Confirmed Montelukast [Singulair] 10 mg PO HS 12/21/14 07/14/19 Pravastatin Sodium 40 mg PO HS 02/07/16 07/14/19 Acetaminophen Tab [Tylenol] 1,000 mg PO BID 03/17/17 07/14/19 Insulin Aspart [NovoLOG Flexpen] See Protocol SQ AC-TID PRN 11/12/17 07/14/19 Budesonide-Formot 160-4.5 Mcg 2 puff INHALATION RT-BID 11/13/17 05/16/19 [Symbicort 160-4.5 Mcg Inhaler] Lisinopril [Zestril] 5 mg PO DAILY 01/26/18 07/14/19 Cyanocobalamin (Vitamin B-12) 1,000 mcg PO TUFR 01/15/19 07/14/19 [Vitamin B-12] Insulin Detemir [Levemir Flextouch] 60 units SQ HS 02/10/19 07/14/19 Magnesium Oxide [Mag-Ox] 400 mg PO HS 02/10/19 07/14/19 Metoprolol Tartrate [Lopressor] 12.5 mg PO BID 02/10/19 07/14/19 Ipratropium-Albuterol Nebulize 3 ml INHALATION RT-QID 04/03/19 05/16/19 [Duoneb 0.5 mg-3 mg/3 ml Soln] Previous Rx's Medication Instructions Recorded Pantoprazole [Protonix] 40 mg PO DAILY #30 tab 03/21/17 Fluticasone Nasal [place] [Flonase 2 spray EA NOSTRIL DAILY #1 bottle 01/22/19 Nasal [place]] Furosemide [Lasix] 40 mg PO BID #60 tab 01/22/19 Insulin Aspart [NovoLOG Flexpen] 17 units SQ TID-W/MEALS #0 01/22/19 Escitalopram Oxalate [Lexapro] 10 mg PO HS #0 05/23/19 amLODIPine [Norvasc] 5 mg PO DAILY #30 tab 05/23/19 Allergies Allergy/AdvReac Type Severity Reaction Status Date / Time Penicillins Allergy Unknown Rash/Hives Verified 07/14/19 14:35 atorvastatin calcium Allergy Unknown Verified 07/14/19 14:35 [From Lipitor] ceftriaxone [From Rocephin] Allergy Rash/Hives Verified 07/14/19 14:35 clonazepam [From Klonopin] Allergy Hallucinati Verified 07/14/19 14:35 ons codeine Allergy Hallucinati Verified 07/14/19 14:35 ons haloperidol [From Haldol] Allergy Hallucinati Verified 07/14/19 14:35 ons haloperidol lactate Allergy Hallucinati Verified 07/14/19 14:35 [From Haldol] ons hydromorphone HCl Allergy Hallucinati Verified 07/14/19 14:35 [From Dilaudid] ons methylphenidate HCl Allergy Hallucinati Verified 07/14/19 14:35 [From Ritalin] ons morphine Allergy Hallucinati Verified 07/14/19 14:35 ons propofol Allergy Hallucinati Verified 07/14/19 14:35 ons quetiapine fumarate Allergy Hallucinati Verified 07/14/19 14:35 [From Seroquel] ons Sulfa (Sulfonamide Allergy Unknown Verified 07/14/19 14:35 Antibiotics) vancomycin Allergy Unknown Verified 07/14/19 14:35 ativan AdvReac Unknown Uncoded 07/14/19 12:29 Review of Systems ROS Statement: Those systems with pertinent positive or pertinent negative responses have been documented in the HPI. ROS Other: All systems not noted in ROS Statement are negative. Past Medical History Past Medical History: Atrial Fibrillation, Coronary Artery Disease (CAD), Cancer, Heart Failure, COPD, CVA/TIA, Diabetes Mellitus, Eye Disorder, GERD/Reflux, GI Bleed, Hyperlipidemia, Hypertension, Myocardial Infarction (HI), Osteoarthritis (OA), Pneumonia, Renal Disease, Skin Disorder, Sleep Apnea/CPAP/BIPAP, Vascular Disorder Additional Past Medical History / Comment(s): Pt recently admitted to [facility] on 01/15/19 with osteomylitis, CAP, mild exacerbation CHF, tracheopurulent bronchitis, hypoxic respiratory failure, paroxysmal Afib, moderate mitral and tricuspid regurg and severe pulmonary HTN. Other hx: Anemia, blood and iron transfusions, right leg cellulitis, IDDM type II, neuropathy bilateral hands /feet, chronic diabetic wounds, 2013 L renal cancer with surgery - partial nephrectomy/spleenectomy/distal portion of pancreas removed at [facility], TIA, [place] unknown date, BPH, gastritis, small hiatal hernia, past discitis T9-T10, arthritis bilateral hands/back, TARIQ - does not tolerate his C PAP, CKD stage III/hyperkalemia, UTI, sepsis, PVD. Last Myocardial Infarction Date:: UNKNOWN History of Any Multi-Drug Resistant Organisms: MRSA Date of last positivie culture/infection: 05/17/19 MDRO Source:: RIGHT Leg Past Surgical History: Coronary Bypass/CABG, Heart Catheterization, Orthopedic Surgery Additional Past Surgical History / Comment(s): Partial L nephrectomy, distal pancreatectomy, splenectomy - at [id number] CABG - 3 vessel, EGD, colonoscopy, deviated septum surgery, skin/oral lesion removals, R carpal tunnel release, bilateral cataract removal, bilateral laser eye surgery for "leakage", Past Anesthesia/Blood Transfusion Reactions: Previous Problems w/ Anesthesia Additional Past Anesthesia/Blood Transfusion Reaction / Comment(s): 'TROUBLE COMING OUT OF ANESTHESIA' - DELUSIONAL. Patient has received blood in past without reaction. Past Psychological History: Anxiety, Depression Smoking Status: Never smoker Past Alcohol Use History: None Reported Past Drug Use History: None Reported - Past Family History Father Family Medical History: Myocardial Infarction (HI) Additional Family Medical History / Comment(s): Father of a HI at the age of 65yrs. Mother Family Medical History: COPD General Exam - General Exam Comments Initial Comments: GENERAL: Patient is well-developed and well-nourished. Patient is nontoxic and well- hydrated and is in mild distress. ENT: Neck is soft and supple. No significant lymphadenopathy is noted. Oropharynx is clear. Moist mucous membranes. Neck has full range of motion without eliciting any pain. EYES: The sclera were anicteric and conjunctiva were pink and moist. Extraocular movements were intact and pupils were equal round and reactive to light. Eyelids were unremarkable. PULMONARY: Expiratory wheezing. CARDIOVASCULAR: Patient has an irregular heartbeat ABDOMEN: Soft and nontender with normal bowel sounds. SKIN: Skin is clear with no lesions or rashes and otherwise unremarkable. NEUROLOGIC: Patient is alert and oriented x3. Cranial nerves II through XII are grossly intact. Motor and sensory are also intact. Normal speech, volume and content. Symmetrical smile. MUSCULOSKELETAL: Normal extremities with adequate strength and full range of motion. LYMPHATICS: No significant lymphadenopathy is noted PSYCHIATRIC: Normal psychiatric evaluation. Limitations: no limitations Course Vital Signs 07/14/19 07/14/19 07/14/19 12:23 12:54 13:19 Temperature 99.4 F Pulse Rate 90 90 95 Respiratory 22 Rate Blood Pressure 168/82 O2 Sat by Pulse 92 L Oximetry Medical Decision Making - Medical Decision Making EKG shows atrial fibrillation at 91 bpm CO interval 116 QRS is 116 QT interval 38 QTC is 477. Patient's EKG shows no ST segment elevation or depression. Chest x-ray shows increased infiltrate in the right middle lobe. I started the patient on antibiotics. Patient also received multiple breathing treatments and did improve significantly but still not at his baseline. Patient also has an elevated white count. I spoke with Dr. schwarz he agreed to admit the patient admitted the patient remaining orders. - Lab Data Result diagrams: 07/14/19 12:55 07/14/19 12:55 Lab Results 07/14/19 07/14/19 07/14/19 Range/Units 12:55 12:55 12:55 WBC 17.6 H (3.8-10.6) k/uL RBC 4.69 (4.30-5.90) m/uL Hgb 12.4 L (13.0-17.5) gm/dL Hct 38.9 L (39.0-53.0) % MCV 83.0 (80.0-100.0) fL MCH 26.4 (25.0-35.0) pg MCHC 31.8 (31.0-37.0) g/dL RDW 16.1 H (11.5-15.5) % Plt Count 307 (150-450) k/uL Neutrophils % 84 % Lymphocytes % 4 % Monocytes % 7 % Eosinophils % 2 % Basophils % 1 % Neutrophils # 14.7 H (1.3-7.7) k/uL Lymphocytes # 0.7 L (1.0-4.8) k/uL Monocytes # 1.2 H (0-1.0) k/uL Eosinophils # 0.3 (0-0.7) k/uL Basophils # 0.1 (0-0.2) k/uL Anisocytosis Slight PT (9.0-12.0) sec INR (<1.2) APTT (22.0-30.0) sec Sodium 129 L (137-145) mmol/L Potassium 4.9 (3.5-5.1) mmol/L Chloride 91 L (98-107) mmol/L Carbon Dioxide 27 (22-30) mmol/L Anion Gap 11 mmol/L BUN 31 H (9-20) mg/dL Creatinine 0.99 (0.66-1.25) mg/dL Est GFR (CKD-EPI)AfAm 82 (>60 ml/min/1.73 sqM) Est GFR (CKD-EPI)NonAf 71 (>60 ml/min/1.73 sqM) Glucose 310 H (74-99) mg/dL Plasma Lactic Acid Dean (0.7-2.0) mmol/L Calcium 9.4 (8.4-10.2) mg/dL Magnesium 1.8 (1.6-2.3) mg/dL Total Bilirubin 0.4 (0.2-1.3) mg/dL AST 42 (17-59) U/L ALT 28 (4-49) U/L Alkaline Phosphatase 65 (38-126) U/L Troponin I (0.000-0.034) ng/mL NT-Pro-B Natriuret Pep 906 pg/mL Total Protein 7.3 (6.3-8.2) g/dL Albumin 4.5 (3.5-5.0) g/dL Influenza Type A RNA (Not Detectd) Influenza Type B (PCR) (Not Detectd) 07/14/19 07/14/1920 Range/Units 12:55 12:55 12:55 WBC (3.8-10.6) k/uL RBC (4.30-5.90) m/uL Hgb (13.0-17.5) gm/dL Hct (39.0-53.0) % MCV (80.0-100.0) fL MCH (25.0-35.0) pg MCHC (31.0-37.0) g/dL RDW (11.5-15.5) % Plt Count (150-450) k/uL Neutrophils % % Lymphocytes % % Monocytes % % Eosinophils % % Basophils % % Neutrophils # (1.3-7.7) k/uL Lymphocytes # (1.0-4.8) k/uL Monocytes # (0-1.0) k/uL Eosinophils # (0-0.7) k/uL Basophils # (0-0.2) k/uL Anisocytosis PT (9.0-12.0) sec INR (<1.2) APTT (22.0-30.0) sec Sodium (137-145) mmol/L Potassium (3.5-5.1) mmol/L Chloride (98-107) mmol/L Carbon Dioxide (22-30) mmol/L Anion Gap mmol/L BUN (9-20) mg/dL Creatinine (0.66-1.25) mg/dL Est GFR (CKD-EPI)AfAm (>60 ml/min/1.73 sqM) Est GFR (CKD-EPI)NonAf (>60 ml/min/1.73 sqM) Glucose (74-99) mg/dL Plasma Lactic Acid Dean 1.1 (0.7-2.0) mmol/L Calcium (8.4-10.2) mg/dL Magnesium (1.6-2.3) mg/dL Total Bilirubin (0.2-1.3) mg/dL AST (17-59) U/L ALT (4-49) U/L Alkaline Phosphatase (38-126) U/L Troponin I 0.016 (0.000-0.034) ng/mL NT-Pro-B Natriuret Pep pg/mL Total Protein (6.3-8.2) g/dL Albumin (3.5-5.0) g/dL Influenza Type A RNA Not Detected (Not Detectd) Influenza Type B (PCR) Not Detected (Not Detectd) 07/14/19 Range/Units 13:43 WBC (3.8-10.6) k/uL RBC (4.30-5.90) m/uL Hgb (13.0-17.5) gm/dL Hct (39.0-53.0) % MCV (80.0-100.0) fL MCH (25.0-35.0) pg MCHC (31.0-37.0) g/dL RDW (11.5-15.5) % Plt Count (150-450) k/uL Neutrophils % % Lymphocytes % % Monocytes % % Eosinophils % % Basophils % % Neutrophils # (1.3-7.7) k/uL Lymphocytes # (1.0-4.8) k/uL Monocytes # (0-1.0) k/uL Eosinophils # (0-0.7) k/uL Basophils # (0-0.2) k/uL Anisocytosis PT 10.7 (9.0-12.0) sec INR 1.0 (<1.2) APTT 25.2 (22.0-30.0) sec Sodium (137-145) mmol/L Potassium (3.5-5.1) mmol/L Chloride (98-107) mmol/L Carbon Dioxide (22-30) mmol/L Anion Gap mmol/L BUN (9-20) mg/dL Creatinine (0.66-1.25) mg/dL Est GFR (CKD-EPI)AfAm (>60 ml/min/1.73 sqM) Est GFR (CKD-EPI)NonAf (>60 ml/min/1.73 sqM) Glucose (74-99) mg/dL Plasma Lactic Acid Dean (0.7-2.0) mmol/L Calcium (8.4-10.2) mg/dL Magnesium (1.6-2.3) mg/dL Total Bilirubin (0.2-1.3) mg/dL AST (17-59) U/L ALT (4-49) U/L Alkaline Phosphatase (38-126) U/L Troponin I (0.000-0.034) ng/mL NT-Pro-B Natriuret Pep pg/mL Total Protein (6.3-8.2) g/dL Albumin (3.5-5.0) g/dL Influenza Type A RNA (Not Detectd) Influenza Type B (PCR) (Not Detectd) Disposition Clinical Impression: COPD with acute exacerbation, Pneumonia Disposition: ADMITTED IP TO THIS HOSP Referrals: Luis Quesada Jr, [Primary Care Provider] - 1-2 days Time of Disposition: 14:47
[2019-07-14] MEDS ORDERED: LEVOFLOXACIN 750MG-D5W PMX 750 MG in DEXTROSE/WATER 1 150ML.BAG IVPB STA ×2 (13:06→14:49)
[2019-07-14 13:15] LABS: Anisocytosis Slight; Basophils # (A) 0.1 k/uL (0-0.2); Basophils % (A) 1 %; Eosinophils # (A) 0.3 k/uL (0-0.7); Eosinophils % (A) 2 %; HCT 38.9 % (39.0-53.0); HGB 12.4 gm/dL (13.0-17.5); Lymphocytes # (A) 0.7 k/uL (1.0-4.8); Lymphocytes % (A) 4 %; MCH 26.4 pg (25.0-35.0); MCHC 31.8 g/dL (31.0-37.0); Mean Platelet Volume 10.6; Monocytes # (A) 1.2 k/uL (0-1.0); Monocytes % (A) 7 %; Neutrophils # (A) 14.7 k/uL (1.3-7.7); Neutrophils % (A) 84 %; Platelet Count 307 k/uL (150-450); RBC 4.69 m/uL (4.30-5.90); RDW 16.1 % (11.5-15.5); WBC 17.6 k/uL (3.8-10.6)
[2019-07-14 13:24] LABS: Albumin 4.5 g/dL (3.5-5.0); Calcium 9.4 mg/dL (8.4-10.2); Magnesium 1.8 mg/dL (1.6-2.3); Potassium 4.9 mmol/L (3.5-5.1); Total Bilirubin 0.4 mg/dL (0.2-1.3); Total Protein 7.3 g/dL (6.3-8.2)
--- NOTE | 2019-07-14 13:37 | XR ---
EXAMINATION TYPE: XR chest 2V DATE OF EXAM: 07/14/2019 HISTORY: difficulty breathing. REFERENCE: Previous study dated 05/20/2019. FINDINGS: There has been a midline sternotomy. Heart size upper limits of normal. There is chronic, a ppearing elevation right hemidiaphragm. There is atelectasis in the right midlung. There is improved aeration at the left lung base. There is blunting of both CP angles. I could not exclude small effusi ons. IMPRESSION: 1. CHRONIC PLEURAL PARENCHYMAL CHANGE. 2. NEW ATELECTASIS, RIGHT MIDLUNG. 3. BORDERLINE CARDIOMEGALY. 4. IMPROVED AERATION, LEFT LUNG BASE.
[2019-07-14 13:59] LABS: Partial Thromboplastin Time 25.2 sec (22.0-30.0); Prothrombin Time 10.7 sec (9.0-12.0)
[2019-07-14 16:03] LABS: Glucose,Whole Blood 411 mg/dL (75-99)
[2019-07-14] MEDS: INSULIN ASPART (NovoLOG) 100 UNIT/ML VIAL SQ SCH ×3 (16:16→20:29)
[2019-07-14] MEDS: methylPREDNISolone SOD SUCCI 125 MG/2 ML VIAL IV SCH (16:17)
[2019-07-14] MEDS: FUROSEMIDE 40 MG TAB PO SCH (16:17)
[2019-07-14 17:10] LABS: Glucose,Whole Blood 401 mg/dL (75-99)
[2019-07-14] MEDS: INSULIN DETEMIR (LEVEMIR) 100 UNIT/ML SYR SQ SCH (20:29)
[2019-07-14] MEDS: ACETAMINOPHEN TAB 500 MG TAB PO SCH (20:29)
[2019-07-14] MEDS: MAGNESIUM OXIDE 400 MG TAB PO SCH (20:31)
[2019-07-14] MEDS: ESCITALOPRAM 10 MG TAB PO SCH (20:31)
[2019-07-14] MEDS: MONTELUKAST 10 MG TAB PO SCH (20:31)
[2019-07-14] MEDS: METOPROLOL TARTRATE 12.5 MG TAB PO SCH (20:31)
[2019-07-14] MEDS: PRAVASTATIN SODIUM 40 MG TAB PO SCH (20:31)
[2019-07-14 20:34] LABS: Glucose,Whole Blood 306 mg/dL (75-99)
[2019-07-15] MEDS: methylPREDNISolone SOD SUCCI 125 MG/2 ML VIAL IV SCH ×4 (00:19→17:01)
[2019-07-15 06:54] LABS: Glucose,Whole Blood 357 mg/dL (75-99)
[2019-07-15] MEDS: IPRATROPIUM-ALBUTEROL 3 ML NEB INHALATION PRN ×4 (07:31→20:14)
[2019-07-15] MEDS: amLODIPine 5 MG TAB PO SCH (08:07)
[2019-07-15] MEDS: FUROSEMIDE 40 MG TAB PO SCH ×2 (08:07→17:00)
[2019-07-15] MEDS: LISINOPRIL 5 MG TAB PO SCH (08:07)
[2019-07-15] MEDS: PANTOPRAZOLE 40 MG TABLET PO SCH (08:07)
[2019-07-15] MEDS: ACETAMINOPHEN TAB 500 MG TAB PO SCH ×2 (08:07→20:25)
[2019-07-15] MEDS: METOPROLOL TARTRATE 12.5 MG TAB PO SCH ×2 (08:07→20:25)
[2019-07-15] MEDS: INSULIN ASPART (NovoLOG) 100 UNIT/ML VIAL SQ SCH ×5 (08:08→17:03)
[2019-07-15] MEDS: FLUTICASONE 50MCG/SPRAY NASAL 16GM EA NOSTRIL SCH (08:14)
[2019-07-15 11:25] LABS: C Reactive Protein 53.7 mg/L (<10.0); Calcium 9.6 mg/dL (8.4-10.2); Magnesium 2.2 mg/dL (1.6-2.3); Potassium 4.7 mmol/L (3.5-5.1)
[2019-07-15 11:39] LABS: Basophils % (A) 0 %; Eosinophils % (A) 0 %; HCT 37.6 % (39.0-53.0); HGB 11.8 gm/dL (13.0-17.5); Hypochromasia Slight; Lymphocytes # (A) 0.6 k/uL (1.0-4.8); Lymphocytes % (A) 5 %; MCH 26.4 pg (25.0-35.0); MCHC 31.3 g/dL (31.0-37.0); MCV 84.4 fL (80.0-100.0); Mean Platelet Volume 9.4; Monocytes # (A) 0.3 k/uL (0-1.0); Monocytes % (A) 3 %; Neutrophils # (A) 10.6 k/uL (1.3-7.7); Neutrophils % (A) 91 %; Platelet Count 383 k/uL (150-450); RBC 4.46 m/uL (4.30-5.90); RDW 15.7 % (11.5-15.5); WBC 11.6 k/uL (3.8-10.6)
[2019-07-15 11:45] LABS: Glucose,Whole Blood 367 mg/dL (75-99)
[2019-07-15 13:49] LABS: Erythrocyte Sedimentation Rate 33 mm/hr (0-15)
--- NOTE | 2019-07-15 13:54 | P.HPIM ---
History of Present Illness H&P Date: 07/15/19 Chief Complaint: FARIHA Chavira is a 84-year-old white male well-known to me from the practice. He follows up with my partner typically. He is been hospitalized for acute copd and possible Pneumonia. Martin has a h/o congestive heart failure and atrial fibrillation. He also menitons after I look at nc foot, that he is seeing DOM for wound to right Heel. He had #2 right toe amputated last year for a similar wound. Quincy is very noncompliant. He supposed to have a CPAP which she has not used in years. He denies any current chest pains, pressures, or shortness of breath at rest. He denies any urinary frequency or urgency. Review of Systems All systems: negative Past Medical History Past Medical History: Atrial Fibrillation, Coronary Artery Disease (CAD), Cancer, Heart Failure, COPD, CVA/TIA, Diabetes Mellitus, Eye Disorder, GERD/Reflux, GI Bleed, Hyperlipidemia, Hypertension, Myocardial Infarction (AR), Osteoarthritis (OA), Pneumonia, Renal Disease, Skin Disorder, Sleep Apnea/CPAP/BIPAP, Vascular Disorder Additional Past Medical History / Comment(s): Pt recently admitted to [facility] on 01/15/19 with osteomylitis, CAP, mild exacerbation CHF, tracheopurulent bro nchitis, hypoxic respiratory failure, paroxysmal Afib, moderate mitral and tricuspid regurg and severe pulmonary HTN. Other hx: Anemia, blood and iron transfusions, right leg cellulitis, IDDM type II, neuropathy bilateral hands/feet, chronic diabetic wounds, 2013 renal cancer with surgery - partial nephrectomy/spleenectomy/distal portion of pancreas removed at , TIA, [place] unknown date, BPH, gastritis, small hiatal hernia, past discitis T9-T10, arthritis bilateral hands/back, TARIQ - does not tolerate his CPAP, CKD stage III/hyperkalemia, UTI, sepsis, PVD. Last Myocardial Infarction Date:: UNKNOWN History of Any Multi-Drug Resistant Organisms: MRSA Date of last positivie culture/infection: 05/17/19 MDRO Source:: RIGHT Leg Past Surgical History: Coronary Bypass/CABG, Heart Catheterization, Orthopedic Surgery Additional Past Surgical History / Comment(s): Partial L nephrectomy, distal pancreatectomy, splenectomy - at [id number] CABG - 3 vessel, EGD, colonoscopy, deviated septum surgery, skin/oral lesion removals, R carpal tunnel release, bilateral cataract removal, bilateral laser eye surgery for "leakage", Past Anesthesia/Blood Transfusion Reactions: Previous Problems w/ Anesthesia Additional Past Anesthesia/Blood Transfusion Reaction / Comment(s): 'TROUBLE COMING OUT OF ANESTHESIA' - DELUSIONAL. Patient has received blood in past without reaction. Past Psychological History: Anxiety, Depression Additional Psychological History / Comment(s): Pt resides with his spouse. He has a cane and a walker and a glucometer. He no longer drives, his spouse drives and manages his medications. 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 Smoking Status: Never smoker Past Alcohol Use History: None Reported Additional Past Alcohol Use History / Comment(s): Patient states he smoked briefly [id number] and it was only socially. No marijuana or illicit drug use. No alcohol use. Past Drug Use History: None Reported - Past Family History Father Family Medical History: Myocardial Infarction (AR) Additional Family Medical History / Comment(s): Father of a AR at the age of 65yrs. Mother Family Medical History: COPD Medications and Allergies Home Medications Medication Instructions Recorded Confirmed Type Montelukast [Singulair] 10 mg PO HS 12/21/14 07/14/19 History Pravastatin Sodium 40 mg PO HS 02/07/16 07/14/19 History Acetaminophen Tab [Tylenol] 1,000 mg PO BID 03/17/17 07/14/19 History Pantoprazole [Protonix] 40 mg PO DAILY #30 tab 03/21/17 07/14/19 Rx Insulin Aspart [NovoLOG Flexpen] See Protocol SQ AC-TID PRN 11/12/17 07/14/19 History Budesonide-Formot 160-4.5 Mcg 2 puff INHALATION RT-BID PRN 11/13/17 07/14/19 History [Symbicort 160-4.5 Mcg Inhaler] Lisinopril [Zestril] 5 mg PO DAILY 01/26/18 07/14/19 History Cyanocobalamin (Vitamin B-12) 1,000 mcg PO TUFR 01/15/19 07/14/19 History [Vitamin B-12] Fluticasone Nasal [place] [Flonase 2 spray EA NOSTRIL DAILY #1 bottle 01/22/19 07/14/19 Rx Nasal [place]] Furosemide [Lasix] 40 mg PO BID #60 tab 01/22/19 07/14/19 Rx Insulin Aspart [NovoLOG Flexpen] 17 units SQ TID-W/MEALS #0 01/22/19 07/14/19 Rx Insulin Detemir [Levemir Flextouch] 60 units SQ HS 02/10/19 07/14/19 History Magnesium Oxide [Mag-Ox] 400 mg PO HS 02/10/19 07/14/19 History Metoprolol Tartrate [Lopressor] 12.5 mg PO BID 02/10/19 07/14/19 History Ipratropium-Albuterol Nebulize 3 ml INHALATION RT-QID 04/03/19 07/14/19 History [Duoneb 0.5 mg-3 mg/3 ml Soln] Escitalopram Oxalate [Lexapro] 10 mg PO HS #0 05/23/19 07/14/19 Rx amLODIPine [Norvasc] 5 mg PO DAILY #30 tab 05/23/19 07/14/19 Rx Allergies Allergy/AdvReac Type Severity Reaction Status Date / Time Penicillins Allergy Unknown Rash/Hives Verified 07/14/19 14:35 atorvastatin calcium Allergy Unknown Verified 07/14/19 14:35 [From Lipitor] ceftriaxone [From Rocephin] Allergy Rash/Hives Verified 07/14/19 14:35 clonazepam [From Klonopin] Allergy Hallucinati Verified 07/14/19 14:35 ons codeine Allergy Hallucinati Verified 07/14/19 14:35 ons haloperidol [From Haldol] Allergy Hallucinati Verified 07/14/19 14:35 ons haloperidol lactate Allergy Hallucinati Verified 07/14/19 14:35 [From Haldol] ons hydromorphone HCl Allergy Hallucinati Verified 07/14/19 14:35 [From Dilaudid] ons methylphenidate HCl Allergy Hallucinati Verified 07/14/19 14:35 [From Ritalin] ons morphine Allergy Hallucinati Verified 07/14/19 14:35 ons propofol Allergy Hallucinati Verified 07/14/19 14:35 ons quetiapine fumarate Allergy Hallucinati Verified 07/14/19 14:35 [From Seroquel] ons Sulfa (Sulfonamide Allergy Unknown Verified 07/14/19 14:35 Antibiotics) vancomycin Allergy Unknown Verified 07/14/19 14:35 ativan AdvReac Unknown Uncoded 07/14/19 12:29 Physical Exam Vitals: Vital Signs Temp Pulse Pulse Resp BP BP BP 07/15/19 11:05 93 07/15/19 10:54 92 07/15/19 07:40 89 07/15/19 07:31 88 07/15/19 04:30 97.4 F L 81 20 146/77 07/14/19 21:00 98.3 F 82 22 121/64 07/14/19 15:50 100.9 F H 91 18 117/58 07/14/19 14:59 98.9 F 87 16 137/67 Pulse Ox 07/15/19 11:05 07/15/19 10:54 07/15/19 07:40 07/15/19 07:31 07/15/19 04:30 93 L 07/14/19 21:00 95 07/14/19 15:50 95 07/14/19 14:59 96 Intake and Output 07/14/19 07/15/19 07/15/19 22:59 06:59 14:59 Intake Total 500 200 Balance 500 200 Intake: Oral 500 200 Other: Voiding Method Urinal Urinal # Voids 2 2 GENERAL: Sitting up in chair, no acute distress HEENT: PERRLA EOMI NECK: Minimal JVD. No thyroid enlargement. No LNs CARDIOVASCULAR: S1, S2 regular. Systolic murmur at RSB RESPIRATION: Breath sounds diminished in the bases. mild rhonchi, diffuse bibasilar crackles, no wheezes, ABDOMEN: Obese, Soft, mildly distended, nontender . No guarding. no masses palpable. No ascites, No hepatosplenomegaly.Positive bowel sounds. LEGS: Bilateral lower extremity mild eryhtema to right medial leg. there is a WG Gr II dm ulcer to right heel measuring 0.5 x 0.5 x 0.3cm with moderate Red granulation tissue PSYCHIATRY: Alert and oriented X3, mood and affect normal. NERVOUS SYSTEM: Cranial N 2-12 grossly normal. Moves all 4 limbs. Diffuse weakness ,No focal deficits. Strength and sensation grossly intact.. Lymphatic system. No LN neck axilla or groin. Results CBC & Chem 7: 07/15/19 10:45 07/15/19 10:45 Labs: Abnormal Lab Results - Last 24 Hours (Table) 07/14/19 07/14/19 07/14/19 Range/Units 16:00 17:07 20:12 WBC (3.8-10.6) k/uL Hgb (13.0-17.5) gm/dL Hct (39.0-53.0) % RDW (11.5-15.5) % Neutrophils # (1.3-7.7) k/uL Lymphocytes # (1.0-4.8) k/uL Sodium (137-145) mmol/L Chloride (98-107) mmol/L BUN (9-20) mg/dL Glucose (74-99) mg/dL POC Glucose (mg/dL) 411 H 401 H 306 H (75-99) mg/dL C-Reactive Protein (<10.0) mg/L 07/15/19 07/15/19 07/15/19 Range/Units 06:52 10:45 10:45 WBC 11.6 H (3.8-10.6) k/uL Hgb 11.8 L (13.0-17.5) gm/dL Hct 37.6 L (39.0-53.0) % RDW 15.7 H (11.5-15.5) % Neutrophils # 10.6 H (1.3-7.7) k/uL Lymphocytes # 0.6 L (1.0-4.8) k/uL Sodium 130 L (137-145) mmol/L Chloride 92 L (98-107) mmol/L BUN 38 H (9-20) mg/dL Glucose 395 H (74-99) mg/dL POC Glucose (mg/dL) 357 H (75-99) mg/dL C-Reactive Protein 53.7 H (<10.0) mg/L 07/15/19 Range/Units 11:41 WBC (3.8-10.6) k/uL Hgb (13.0-17.5) gm/dL Hct (39.0-53.0) % RDW (11.5-15.5) % Neutrophils # (1.3-7.7) k/uL Lymphocytes # (1.0-4.8) k/uL Sodium (137-145) mmol/L Chloride (98-107) mmol/L BUN (9-20) mg/dL Glucose (74-99) mg/dL POC Glucose (mg/dL) 367 H (75-99) mg/dL C-Reactive Protein (<10.0) mg/L Chest x-ray: report reviewed Thrombosis Risk Factor Assmnt - DVT/VTE Prophylaxis DVT/VTE Prophylaxis: Pharmacologic Prophylaxis ordered - Choose All That Apply Each Risk Factor Represents 3 Points: Age 75 years or older Thrombosis Risk Factor Assessment Total Risk Factor Score: 3 Thrombosis Risk Factor Assessment Level: Moderate Risk
--- NOTE | 2019-07-15 14:22 | XR ---
EXAMINATION TYPE: XR foot complete RT DATE OF EXAM: 07/15/2019 CLINICAL HISTORY: Nonhealing wound of the right heel TECHNIQUE: Frontal, lateral, and oblique images of the right foot are obtained. COMPARISON: None FINDINGS: There is no acute fracture/dislocation evident in the right foot. Hallux valgus deformity is seen. Old fracture deformity of the left fifth metatarsal. Amputation of the second digit. Atheros clerosis of the small vessels left foot. Soft tissue ulceration at the skin surface of the anterior s urface of the heel. No subcutaneous foreign body or cortical erosion of the calcaneus. No periosteal reaction of the calcaneus. IMPRESSION: No radiographic sequela of osteomyelitis of the right foot.
[2019-07-15 14:56] LABS: Glucose,Whole Blood 369 mg/dL (75-99)
[2019-07-15] MEDS: INSULIN REGULAR 100 UNIT in SODIUM CHLORIDE 0.9% 100 ML IV SCH (15:25)
[2019-07-15 16:13] LABS: Glucose,Whole Blood 345 mg/dL (75-99)
[2019-07-15 16:46] LABS: Glucose,Whole Blood 382 mg/dL (75-99)
[2019-07-15 16:57] LABS: Glucose,Whole Blood 328 mg/dL (75-99)
[2019-07-15] MEDS: HEPARIN SODIUM,PORCINE 5,000 UNIT/ML 1 ML VIAL SQ SCH ×3 (17:00→17:21)
[2019-07-15] MEDS ORDERED: INSULIN ASPART (NovoLOG) 100 UNIT/ML VIAL SQ SCH (17:30)
[2019-07-15 17:34] LABS: Hemoglobin A1C 8.2 % (4.0-6.0)
[2019-07-15 17:36] LABS: Glucose,Whole Blood 281 mg/dL (75-99)
[2019-07-15 18:10] LABS: Glucose,Whole Blood 271 mg/dL (75-99)
[2019-07-15 18:42] LABS: Glucose,Whole Blood 270 mg/dL (75-99)
[2019-07-15 19:10] LABS: Glucose,Whole Blood 266 mg/dL (75-99)
[2019-07-15 19:36] LABS: Glucose,Whole Blood 274 mg/dL (75-99)
[2019-07-15 20:09] LABS: Glucose,Whole Blood 240 mg/dL (75-99)
[2019-07-15] MEDS: ESCITALOPRAM 10 MG TAB PO SCH (20:25)
[2019-07-15] MEDS: MONTELUKAST 10 MG TAB PO SCH (20:25)
[2019-07-15] MEDS: PRAVASTATIN SODIUM 40 MG TAB PO SCH (20:26)
[2019-07-15] MEDS: MAGNESIUM OXIDE 400 MG TAB PO SCH (20:26)
[2019-07-15] MEDS: INSULIN DETEMIR (LEVEMIR) 100 UNIT/ML SYR SQ SCH (21:07)
[2019-07-15 22:22] LABS: Glucose,Whole Blood 233 mg/dL (75-99)
[2019-07-16] MEDS: methylPREDNISolone SOD SUCCI 125 MG/2 ML VIAL IV SCH ×5 (00:09→23:19)
[2019-07-16] MEDS: HEPARIN SODIUM,PORCINE 5,000 UNIT/ML 1 ML VIAL SQ SCH ×4 (00:10→23:20)
[2019-07-16 00:16] LABS: Glucose,Whole Blood 153 mg/dL (75-99)
[2019-07-16] MEDS: INSULIN REGULAR 100 UNIT in SODIUM CHLORIDE 0.9% 100 ML IV SCH (00:40)
[2019-07-16 02:19] LABS: Glucose,Whole Blood 210 mg/dL (75-99)
[2019-07-16 04:41] LABS: Glucose,Whole Blood 168 mg/dL (75-99)
[2019-07-16 05:55] LABS: Glucose,Whole Blood 163 mg/dL (75-99)
[2019-07-16 07:53] LABS: Glucose,Whole Blood 151 mg/dL (75-99)
[2019-07-16] MEDS: ACETAMINOPHEN TAB 500 MG TAB PO SCH ×2 (09:11→21:49)
[2019-07-16] MEDS: LISINOPRIL 5 MG TAB PO SCH (09:12)
[2019-07-16] MEDS: INSULIN ASPART (NovoLOG) 100 UNIT/ML VIAL SQ SCH ×4 (09:12→21:56)
[2019-07-16] MEDS: FUROSEMIDE 40 MG TAB PO SCH ×2 (09:12→16:20)
[2019-07-16] MEDS: METOPROLOL TARTRATE 12.5 MG TAB PO SCH (09:12)
[2019-07-16] MEDS: amLODIPine 5 MG TAB PO SCH (09:12)
[2019-07-16] MEDS: PANTOPRAZOLE 40 MG TABLET PO SCH (09:12)
[2019-07-16] MEDS: FLUTICASONE 50MCG/SPRAY NASAL 16GM EA NOSTRIL SCH (09:13)
[2019-07-16 09:18] LABS: Basophils % (A) 0 %; Eosinophils % (A) 0 %; HCT 38.7 % (39.0-53.0); HGB 12.2 gm/dL (13.0-17.5); Lymphocytes # (A) 0.8 k/uL (1.0-4.8); Lymphocytes % (A) 4 %; MCH 26.3 pg (25.0-35.0); MCHC 31.5 g/dL (31.0-37.0); MCV 83.7 fL (80.0-100.0); Mean Platelet Volume 8.4; Monocytes # (A) 0.7 k/uL (0-1.0); Monocytes % (A) 3 %; Neutrophils # (A) 19.9 k/uL (1.3-7.7); Neutrophils % (A) 92 %; Platelet Count 396 k/uL (150-450); RBC 4.63 m/uL (4.30-5.90); WBC 21.5 k/uL (3.8-10.6)
[2019-07-16] MEDS: IPRATROPIUM-ALBUTEROL 3 ML NEB INHALATION PRN ×4 (09:27→19:28)
[2019-07-16 09:41] LABS: Calcium 9.7 mg/dL (8.4-10.2); Magnesium 2.2 mg/dL (1.6-2.3); Potassium 4.5 mmol/L (3.5-5.1)
--- NOTE | 2019-07-16 11:13 | P.CNPUL ---
History of Present Illness Consult date: 07/16/19 Requesting physician: Jono Key Reason for consult: dyspnea Chief complaint: Shortness of breath, cough, congestion History of present illness: This is a pleasant 84-year-old gentleman who follows with Dr. Veras as his primary care provider. He has a history of atrial fibrillation, coronary artery disease with previous coronary artery bypass grafting 3 in 2000, partial left nephrectomy in 2013, distal pancreatectomy, splenectomy at [facility] years ago, congestive heart failure, CVA/TIA, diabetes mellitus, GERD, hyperlipidemia, hypertension, osteoarthritis, lower extremity cellulitis. He has his history of chronic obstructive pulmonary disease with obstructive sleep apnea and follows in our office for the same. His FEV1 value is 1.36 L which is 49% of predicted. He is maintained on DuoNeb inhalations, Singulair, Symbicort. He has previous history of obstructive sleep apnea along with central sleep apnea and had recently been evaluated by Dr. Vieira last month. His AHI is 24. He is set at 13 cm water on his CPAP. He had suggested a follow-up sleep study which the patient had not performed just yet. He presented here to the emergency room 2 days ago with complaints of increasing shortness of breath, cough congestion. His chest x-ray reveals evidence of chronic pleural parenchymal changes. Atelectasis in the right midlung. Borderline cardiomegaly. Improved aeration of the left lung compared to previous and April 2019. Cultures of the wound of the right heel are pending. Blood cultures reveal no growth to date. White count 21.5. Hemoglobin 12.2. Sodium 136. Potassium 4.5. Creatinine 0.95. Influenza screen was negative. He is currently on a insulin drip at 2.5 units per hour. He's been initiated and DuoNeb inhalations, IV Solu-Medrol, ceftriaxone. He is seen today in consultation on the regular medical floor. He is currently sitting up in chair at the bedside. Awake and alert in no acute distress. He is maintaining O2 sa turations in the mid 90s on 2 L/m per nasal cannula. He's been afebrile. He did have a T-max of 100.5 two days ago. Hemodynamically stable. Shortness of breath is about the same. Loose productive cough. Sputum culture pending. Review of Systems REVIEW OF SYSTEMS: CONSTITUTIONAL: Denies any recent significant weight loss or weight gain. EYES: Denies change in vision. EARS, NOSE, MOUTH, THROAT: Denies headaches, denies sore throat. CARDIOVASCULAR: Denies chest pain, palpitations or syncopal episodes. RESPIRATORY: Positive for shortness of breath, cough, congestion no hemoptysis. GASTROINTESTINAL: Denies change in appetite, denies abdominal pain GENITOURINARY: Denies hematuria, denies infections. MUSKULOSKELETAL: Denies pain, denies swelling. INTEGUMENTARY: Wound of the right heel. NEUROLOGICAL: Denies recent memory loss, no recent seizure activity. PSYCHIATRIC: Denies anxiety, denies depression. HEMATOLOGIC/LYMPHATIC: Denies anemia, denies enlarged lymph nodes. Past Medical History Past Medical History: Atrial Fibrillation, Coronary Artery Disease (CAD), Cancer, Heart Failure, COPD, CVA/TIA, Diabetes Mellitus, Eye Disorder, GERD/Reflux, GI Bleed, Hyperlipidemia, Hypertension, Myocardial Infarction (MD), Osteoarthritis (OA), Pneumonia, Renal Disease, Skin Disorder, Sleep Apnea/CPAP/BIPAP, Vascular Disorder Additional Past Medical History / Comment(s): Pt recently admitted to [facility] on 01/15/19 with osteomylitis, CAP, mild exacerbation CHF, tracheopurulent bronchitis, hypoxic respiratory failure, paroxysmal Afib, moderate mitral and tricuspid regurg and severe pulmonary HTN. Other hx: Anemia, blood and iron transfusions, right leg cellulitis, IDDM type II, neuropathy bilateral hands/feet, chronic diabetic wounds, 2014 L renal cancer with surgery - partial nephrectomy/spleenectomy/distal portion of pancreas removed at [facility], TIA, MD unknown date, BPH, gastritis, small hiatal hernia, past discitis T9-T10, arthritis bilateral hands/back, TARIQ - does not tolerate his CPAP, CKD stage III/hyperkalemia, UTI, sepsis, PVD. Last Myocardial Infarction Date:: UNKNOWN History of Any Multi-Drug Resistant Organisms: MRSA Date of last positivie culture/infection: 05/17/19 MDRO Source:: RIGHT Leg Past Surgical History: Coronary Bypass/CABG, Heart Catheterization, Orthopedic Surgery Additional Past Surgical History / Comment(s): Partial L nephrectomy, distal pancreatectomy, splenectomy - at [facility]2000 CABG - 3 vessel, EGD, colonoscopy, deviated septum surgery, skin/oral lesion removals, R carpal tunnel release, bilateral cataract removal, bilateral laser eye surgery for "leakage", Past Anesthesia/Blood Transfusion Reactions: Previous Problems w/ Anesthesia Additional Past Anesthesia/Blood Transfusion Reaction / Comment(s): 'TROUBLE COMING OUT OF ANESTHESIA' - DELUSIONAL. Patient has received blood in past without reaction. Past Psychological History: Anxiety, Depression Additional Psychological History / Comment(s): Pt resides with his spouse. He has a cane and a walker and a glucometer. He no longer drives, his spouse drives and manages his medications. 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 Smoking Status: Never smoker Past Alcohol Use History: None Reported Additional Past Alcohol Use History / Comment(s): Patient states he smoked briefly [id number] and it was only socially. No marijuana or illicit drug use. No alcohol use. Past Drug Use History: None Reported - Past Family History Father Family Medical History: Myocardial Infarction (MD) Additional Family Medical History / Comment(s): Father of a MD at the age of 65yrs. Mother Family Medical History: COPD Medications and Allergies Home Medications Medication Instructions Recorded Confirmed Type Montelukast [Singulair] 10 mg PO HS 12/21/14 07/14/19 History Pravastatin Sodium 40 mg PO HS 02/07/16 07/14/19 History Acetaminophen Tab [Tylenol] 1,000 mg PO BID 03/17/17 07/14/19 History Pantoprazole [Protonix] 40 mg PO DAILY #30 tab 03/21/17 07/14/19 Rx Insulin Aspart [NovoLOG Flexpen] See Protocol SQ AC-TID PRN 11/12/17 07/14/19 History Budesonide-Formot 160-4.5 Mcg 2 puff INHALATION RT-BID PRN 11/13/17 07/14/19 History [Symbicort 160-4.5 Mcg Inhaler] Lisinopril [Zestril] 5 mg PO DAILY 01/26/18 07/14/19 History Cyanocobalamin (Vitamin B-12) 1,000 mcg PO TUFR 01/15/19 07/16/19 History [Vitamin B-12] Fluticasone Nasal [place] [Flonase 2 spray EA NOSTRIL DAILY #1 bottle 01/22/19 07/14/19 Rx Nasal [place]] Furosemide [Lasix] 40 mg PO BID #60 tab 01/22/19 07/14/19 Rx Insulin Aspart [NovoLOG Flexpen] 17 units SQ TID-W/MEALS #0 01/22/19 07/14/19 Rx Insulin Detemir [Levemir Flextouch] 60 units SQ HS 02/10/19 07/14/19 History Magnesium Oxide [Mag-Ox] 400 mg PO HS 02/10/19 07/14/19 History Ipratropium-Albuterol Nebulize 3 ml INHALATION RT-QID 04/03/19 07/14/19 History [Duoneb 0.5 mg-3 mg/3 ml Soln] Escitalopram Oxalate [Lexapro] 10 mg PO HS #0 05/23/19 07/14/19 Rx amLODIPine [Norvasc] 5 mg PO DAILY #30 tab 05/23/19 07/14/19 Rx [place]-3 Fatty Acids/Fish Oil [Fish 1 cap PO DAILY 07/16/19 07/16/19 History Oil 1,000 mg Softgel] Allergies Allergy/AdvReac Type Severity Reaction Status Date / Time Penicillins Allergy Unknown Rash/Hives Verified 07/14/19 14:35 atorvastatin calcium Allergy Unknown Verified 07/14/19 14:35 [From Lipitor] ceftriaxone [From Rocephin] Allergy Rash/Hives Verified 07/14/19 14:35 clonazepam [From Klonopin] Allergy Hallucinati Verified 07/14/19 14:35 ons codeine Allergy Hallucinati Verified 07/14/19 14:35 ons haloperidol [From Haldol] Allergy Hallucinati Verified 07/14/19 14:35 ons haloperidol lactate Allergy Hallucinati Verified 07/14/19 14:35 [From Haldol] ons hydromorphone HCl Allergy Hallucinati Verified 07/14/19 14:35 [From Dilaudid] ons methylphenidate HCl Allergy Hallucinati Verified 07/14/19 14:35 [From Ritalin] ons morphine Allergy Hallucinati Verified 07/14/19 14:35 ons propofol Allergy Hallucinati Verified 07/14/19 14:35 ons quetiapine fumarate Allergy Hallucinati Verified 07/14/19 14:35 [From Seroquel] ons Sulfa (Sulfonamide Allergy Unknown Verified 07/14/19 14:35 Antibiotics) vancomycin Allergy Unknown Verified 07/14/19 14:35 ativan AdvReac Unknown Uncoded 07/14/19 12:29 Physical Exam Vitals: Vital Signs Temp Pulse Pulse Resp BP BP Pulse Ox 07/16/19 09:40 100 07/16/19 09:27 99 07/16/19 07:00 97.6 F 87 18 173/85 97 07/15/19 21:45 96.3 F L 67 16 116/68 96 07/15/19 20:25 95 07/15/19 20:14 93 07/15/19 16:23 93 07/15/19 16:13 94 07/15/19 13:20 97.9 F 51 L 16 133/59 95 07/15/19 11:05 93 Intake and Output 07/15/19 07/16/19 07/16/19 22:59 06:59 14:59 Intake Total 92.984 27.324 246.65 Output Total 400 775 Balance -307.016 -747.676 246.65 Intake: Intake, IV Titration 92.984 27.324 6.65 Amount Insulin Regular 100 unit 92.984 27.324 6.65 In Sodium Chloride 0.9% 100 ml @ Titrate IV .[facility]0M [facility] Rx#:[id number] Oral 240 Output: Urine 400 775 Other: Voiding Method Urinal GENERAL EXAM: Alert, active, 84-year-old gentleman, on 2 L nasal cannula, comfortable in no apparent distress. HEAD: Normocephalic. EYES: Normal reaction of pupils, equal size. NOSE: Clear with pink turbinates. THROAT: No erythema or exudates. NECK: No masses, no JVD. CHEST: No chest wall deformity. LUNGS: Equal air entry with few scattered rhonchi, diminished. CVS: S1 and S2 normal with no audible murmur, regular rhythm. ABDOMEN: No hepatosplenomegaly, normal bowel sounds, no guarding or rigidity. SPINE: No scoliosis or deformity SKIN: Wound on the right heel CENTRAL NERVOUS SYSTEM: No focal deficits, tone is normal in all 4 extremities. EXTREMITIES: There is no peripheral edema. No clubbing, no cyanosis. Peripheral pulses are intact. Results - Laboratory Findings CBC and BMP: 07/16/19 08:24 07/16/19 08:24 PT/INR, D-dimer PT 10.7 sec (9.0-12.0) 07/14/19 13:43 INR 1.0 (<1.2) 07/14/19 13:43 Abnormal lab findings: Abnormal Labs 07/14/19 07/14/19 07/14/19 12:55 12:55 16:00 WBC 17.6 H Hgb 12.4 L Hct 38.9 L RDW 16.1 H Neutrophils # 14.7 H Lymphocytes # 0.7 L Monocytes # 1.2 H ESR Sodium 129 L Chloride 91 L BUN 31 H Glucose 310 H POC Glucose (mg/dL) 411 H Hemoglobin A1c C-Reactive Protein 07/14/19 07/14/19 07/15/19 17:07 20:12 06:52 WBC Hgb Hct RDW Neutrophils # Lymphocytes # Monocytes # ESR Sodium Chloride BUN Glucose POC Glucose (mg/dL) 401 H 306 H 357 H Hemoglobin A1c C-Reactive Protein 07/15/19 07/15/19 07/15/19 10:45 10:45 10:45 WBC 11.6 H Hgb 11.8 L Hct 37.6 L RDW 15.7 H Neutrophils # 10.6 H Lymphocytes # 0.6 L Monocytes # ESR 33 H Sodium 130 L Chloride 92 L BUN 38 H Glucose 395 H POC Glucose (mg/dL) Hemoglobin A1c 8.2 H C-Reactive Protein 53.7 H 07/15/19 07/15/19 07/15/19 11:41 14:53 16:08 WBC Hgb Hct RDW Neutrophils # Lymphocytes # Monocytes # ESR Sodium Chloride BUN Glucose POC Glucose (mg/dL) 367 H 369 H 345 H Hemoglobin A1c C-Reactive Protein 07/15/19 07/15/19 07/15/19 16:40 16:56 17:33 WBC Hgb Hct RDW Neutrophils # Lymphocytes # Monocytes # ESR Sodium Chloride BUN Glucose POC Glucose (mg/dL) 382 H 328 H 281 H Hemoglobin A1c C-Reactive Protein 07/15/19 07/15/19 07/15/19 18:08 18:32 19:05 WBC Hgb Hct RDW Neutrophils # Lymphocytes # Monocytes # ESR Sodium Chloride BUN Glucose POC Glucose (mg/dL) 271 H 270 H 266 H Hemoglobin A1c C-Reactive Protein 07/15/19 07/15/19 07/15/19 19:34 19:58 22:11 WBC Hgb Hct RDW Neutrophils # Lymphocytes # Monocytes # ESR Sodium Chloride BUN Glucose POC Glucose (mg/dL) 274 H 240 H 233 H Hemoglobin A1c C-Reactive Protein 07/16/19 07/16/19 07/16/19 00:12 02:08 04:29 WBC Hgb Hct RDW Neutrophils # Lymphocytes # Monocytes # ESR Sodium Chloride BUN Glucose POC Glucose (mg/dL) 153 H 210 H 168 H Hemoglobin A1c C-Reactive Protein 07/16/19 07/16/19 07/16/19 05:35 07:50 08:24 WBC 21.5 H Hgb 12.2 L Hct 38.7 L RDW 16.0 H Neutrophils # 19.9 H Lymphocytes # 0.8 L Monocytes # ESR Sodium Chloride BUN Glucose POC Glucose (mg/dL) 163 H 151 H Hemoglobin A1c C-Reactive Protein 07/16/19 08:24 WBC Hgb Hct RDW Neutrophils # Lymphocytes # Monocytes # ESR Sodium 136 L Chloride 96 L BUN 42 H Glucose 169 H POC Glucose (mg/dL) Hemoglobin A1c C-Reactive Protein - Diagnostic Findings Chest x-ray: image reviewed Assessment and Plan Assessment: 1 Acute exacerbation of chronic obstructive pulmonary disease, complicated by tracheobronchitis, influenza screen negative 2 Obstructive sleep apnea with an AHI of 24, CPAP at 13 cm water 3 Atrial fibrillation, controlled ventricular response 4 Coronary artery disease with previous coronary bypass grafting 3 in 2000 5 Congestive heart failure, ejection fraction 45-50% 6 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 in 2013 10 Chronic kidney disease stage III 11 History of GI bleed 12 Hyperlipidemia 13 hypertension 14 Osteoarthritis Plan: The patient was seen and evaluated by Dr. Sanabria. Chest x-ray and labs reviewed. We'll decrease his steroids due to the hyperglycemia and requirement of insulin drip. Continue DuoNeb inhalations, add Symbicort, antibiotics in the form of ceftriaxone. Heparin for DVT prophylaxis. Protonix for GI prophylaxis. We'll increase his activity as tolerated. We'll continue to follow and make further recommendations based on his clinical status. Probable discharge in the next 24-48 hours. I, the cosigning physician, performed a [facility] Lungs sounds with few scattered rhonchi, diminished. Maintaining good O2 saturations in the 90s on 2 L/m per nasal cannula. I discussed the assessment and plan of care with my nurse practitioner, Belinda Sarah. I attest to the above consultation as dictated by her. Time with Patient: Greater than 30
[2019-07-16 11:25] LABS: Glucose,Whole Blood 156 mg/dL (75-99)
[2019-07-16 14:47] LABS: Glucose,Whole Blood 133 mg/dL (75-99)
[2019-07-16 16:10] LABS: Glucose,Whole Blood 176 mg/dL (75-99)
[2019-07-16 18:04] LABS: Glucose,Whole Blood 201 mg/dL (75-99)
[2019-07-16] MEDS: SYMBICORT 160-4.5 MCG INHALER INHALATION SCH (19:28)
[2019-07-16 20:10] LABS: Glucose,Whole Blood 194 mg/dL (75-99)
[2019-07-16] MEDS: MAGNESIUM OXIDE 400 MG TAB PO SCH (21:49)
[2019-07-16] MEDS: ESCITALOPRAM 10 MG TAB PO SCH (21:49)
[2019-07-16] MEDS: MONTELUKAST 10 MG TAB PO SCH (21:49)
[2019-07-16] MEDS: PRAVASTATIN SODIUM 40 MG TAB PO SCH (21:49)
[2019-07-16] MEDS: INSULIN DETEMIR (LEVEMIR) 100 UNIT/ML SYR SQ SCH (21:51)
[2019-07-17] MEDS: methylPREDNISolone SOD SUCCI 125 MG/2 ML VIAL IV SCH ×3 (05:27→17:28)
[2019-07-17 07:17] LABS: Glucose,Whole Blood 347 mg/dL (75-99)
[2019-07-17] MEDS: IPRATROPIUM-ALBUTEROL 3 ML NEB INHALATION PRN ×4 (07:25→19:29)
[2019-07-17] MEDS: SYMBICORT 160-4.5 MCG INHALER INHALATION SCH ×2 (07:25→19:29)
[2019-07-17] MEDS: LISINOPRIL 5 MG TAB PO SCH (07:39)
[2019-07-17] MEDS: FUROSEMIDE 40 MG TAB PO SCH ×2 (07:39→15:09)
[2019-07-17] MEDS: HEPARIN SODIUM,PORCINE 5,000 UNIT/ML 1 ML VIAL SQ SCH ×2 (07:40→15:08)
[2019-07-17] MEDS: INSULIN ASPART (NovoLOG) 100 UNIT/ML VIAL SQ SCH ×8 (07:41→21:00)
[2019-07-17] MEDS: PANTOPRAZOLE 40 MG TABLET PO SCH (07:41)
[2019-07-17] MEDS: ACETAMINOPHEN TAB 500 MG TAB PO SCH ×2 (07:42→20:58)
[2019-07-17] MEDS: amLODIPine 5 MG TAB PO SCH (07:43)
[2019-07-17] MEDS: FLUTICASONE 50MCG/SPRAY NASAL 16GM EA NOSTRIL SCH (07:44)
--- NOTE | 2019-07-17 11:57 | P.PN ---
Subjective Progress Note Date: 07/17/19 Principal diagnosis: Acute exacerbation of COPD and purulent tracheobronchitis. This is a pleasant 84-year-old gentleman who follows with Dr. Veras as his primary care provider. He has a history of atrial fibrillation, coronary artery disease with previous coronary artery bypass grafting 3 in 2000, partial left nephrectomy in 2013, distal pancreatectomy, splenectomy at [facility] years ago, congestive heart failure, CVA/TIA, diabetes mellitus, GERD, hyperlipidemia, hypertension, osteoarthritis, lower extremity cellulitis. He has his history of chronic obstructive pulmonary disease with obstructive sleep apnea and follows in our office for the same. His FEV1 value is 1.36 L which is 49% of predicted. He is maintained on DuoNeb inhalations, Singulair, Symbicort. He has previous history of obstructive sleep apnea along with central sleep apnea and had recently been evaluated by Dr. Vieira last month. His AHI is 24. He is set at 13 cm water on his CPAP. He had suggested a follow-up sleep study which the patient had not performed just yet. He presented here to the emergency room 2 days ago with complaints of increasing shortness of breath, cough congestion. His chest x-ray reveals evidence of chronic pleural parenchymal changes. Atelectasis in the right midlung. Borderline cardiomegaly. Improved aeration of the left lung compared to previous and April 2019. Cultures of the wound of the right heel are pending. Blood cultures reveal no growth to date. White count 21.5. Hemoglobin 12.2. Sodium 136. Potassium 4.5. Creatinine 0.95. Influenza screen was negative. He is currently on a insulin drip at 2.5 units per hour. He's been initiated and DuoNeb inhalations, IV Solu-Medrol, ceftriaxone. He is seen today in consultation on the regular medical floor. He is currently sitting up in chair at the bedside. Awake and alert in no acute distress. He is maintaining O2 saturations in the mid 90s on 2 L/m per nasal cannula. He's been afebrile. He did have a T-max of 100.5 two days ago. Hemodynamically stable. Shortness of breath is about the same. Loose productive cough. Sputum culture pending. Reevaluated today on 07/17/19, patient is feeling a bit better, breathing easier, however he continues to have some vague chest right-sided discomfort. Less cough and less wheezing less shortness of breath. CBC showed leukocytosis yesterday. Hemoglobin is 12.2 in a cluster normal BUN is 42 creatinine is 0.95. Objective - Vital Signs Vital signs: Vital Signs Temp 97.8 F 07/17/19 04:50 Pulse 76 07/17/19 11:08 Resp 20 07/17/19 08:00 BP 124/60 07/17/19 04:50 Pulse Ox 98 07/17/19 04:50 Intake & Output 07/16/19 07/17/19 07/17/19 18:59 06:59 18:59 Intake Total 1244.925 400 Output Total 1 Balance 1244.925 399 Intake: Intake, IV Titration 34.925 Amount Insulin Regular 100 unit 34.925 In Sodium Chloride 0.9% 100 ml @ Titrate IV .Q0M [facility] Rx#:[id number] Oral 1210 400 Output: Urine/Stool Mix 1 Other: Voiding Method Urinal # Voids 4 2 - Exam GENERAL EXAM: Revealed 84-year-old white male in no distress on 2 L nasal cannula. HEAD: Normocephalic. EENT: PERRLA, EOMI, no icterus, no neck masses, no JVD, no stridor. CHEST: No chest wall deformity. LUNGS: Equal air entry with few scattered rhonchi, diminished. CVS: S1 and S2 normal with no audible murmur, regular rhythm. ABDOMEN: Obese, soft, No hepatosplenomegaly, normal bowel sounds, no guarding or rigidity. SPINE: No scoliosis or deformity SKIN: Wound on the right heel, x-rays of right foot noted. CENTRAL NERVOUS SYSTEM: No focal deficits, tone is normal in all 4 extremities. EXTREMITIES: There is no peripheral edema. No clubbing, no cyanosis. Peripheral pulses are intact. Psychiatric: Normal mood affect and normal mental status examination. - Labs CBC & Chem 7: 07/16/19 08:24 07/16/19 08:24 Labs: Abnormal Lab Results - Last 24 Hours (Table) 07/16/19 07/16/19 07/16/19 Range/Units 14:45 16:09 18:02 POC Glucose (mg/dL) 133 H 176 H 201 H (75-99) mg/dL 07/16/19 07/17/19 Range/Units 20:07 07:15 POC Glucose (mg/dL) 194 H 347 H (75-99) mg/dL Microbiology - Last 24 Hours (Table) 07/14/19 12:55 Blood Culture - Preliminary Blood No Growth after 48 hours 07/15/19 15:10 Gram Stain - Preliminary Foot - Right Wound Culture - Preliminary Presumptive Staph aureus Assessment and Plan Assessment: Impression: Acute exacerbation of COPD and purulent tracheobronchitis. Chronic atrial fibrillation. Obstructive sleep apnea syndrome, on CPAP. Coronary artery disease and previous CABG in 2000. 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 Diabetes and diabetic neuropathy History of renal cell cancer and partial nephrectomy. 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 Chronic kidney disease stage III Benign essential hypertension Degenerative joint disease Dyslipidemia Recommendation: Continue bronchodilators. Continue antibiotics. Continue steroids. Continue GI and DVT prophylaxis. Expect discharge planning in the next 24 hours. We'll continue to follow. Time with Patient: Less than 30
[2019-07-17 12:23] LABS: Glucose,Whole Blood 353 mg/dL (75-99)
[2019-07-17] MEDS ORDERED: INSULIN ASPART (NovoLOG) 100 UNIT/ML VIAL SQ ONE ×2 (13:02→20:43)
[2019-07-17 17:13] LABS: Glucose,Whole Blood 349 mg/dL (75-99)
--- NOTE | 2019-07-17 18:37 | P.PN ---
Subjective Progress Note Date: 07/16/19 Principal diagnosis: Acute exacerbation chronic pulmonary disease complicated with tracheal bronchitis influenza resolving Obstructive sleep apnea with an AIH of 24 CPAP 13 cm of water however patient had not received CPAP device prior to admission Patient was diagnosed with obstructive sleep apnea approximately 20 years earlier and totally noncompliant with CPAP from the beginning Heart failure with diminished ejection fraction 45-50% Osteomyelitis with a history of MRSA in the right lower heel Diabetes mellitus type 2 Diabetic neuropathy History of left renal carcinoma status post partial nephrectomy splenectomy is a portion of the pancreas removed at [facility] in 2014 Chronic kidney disease stage III Hypertension by history Noncompliance by history Hyperlipidemia by history Plan continue DuoNeb inhalation Symbicort at 8 antibiotics in the form of ceftriaxone Protonix for GI Prophylaxis Insulin IV drip stopped patient placed on baseline Levemir and scale Will continue to follow reevaluate in the morning and continue O2 sats Objective - Vital Signs Vital signs: Vital Signs Temp 97.5 F L 07/17/19 14:32 Pulse 80 07/17/19 15:48 Resp 18 07/17/19 15:35 BP 135/64 07/17/19 14:32 Pulse Ox 98 07/17/19 15:35 Intake & Output 07/16/19 07/17/19 07/17/19 18:59 06:59 18:59 Intake Total 1244.925 400 Output Total 1 1800 Balance 1244.925 399 -1800 Intake: Intake, IV Titration 34.925 Amount Insulin Regular 100 unit 34.925 In Sodium Chloride 0.9% 100 ml @ Titrate IV .Q0M [facility] Rx#:[id number] Oral 1210 400 Output: Urine 1800 Urine/Stool Mix 1 Other: Voiding Method Urinal # Voids 4 2 - Exam General: [Patient awake, alert and oriented times 3. Patient in no acute distress.] HEENT: [PERRL. EOMI. No pharyngeal erythema or exudate.] Neck: [No adenopathy.] Cardiac: [Heart regular in rate and rhythm. No S3. No S4. No clicks, rubs. No murmur.] Lungs: [Clear to auscultation bilaterally.] Abdomen: [No mass. No organomegaly. Bowel sounds presnt and normoactive in all 4 quadrants.] Extremes: [No edema no cyanosis no claudication normal pulses] ulcer heal of right foot : Male genitalia Musculoskeletal: [No joint erythema, edema or tenderness.] Skin: [No rash.] Neurologic: [No lateralizing deficits. CN II - XII grossly intact.] Lymphatic: [No adenopathy.] - Labs CBC & Chem 7: 07/16/19 08:24 07/16/19 08:24 Labs: Abnormal Lab Results - Last 24 Hours (Table) 07/16/19 07/16/19 07/17/19 Range/Units 18:02 20:07 07:15 POC Glucose (mg/dL) 201 H 194 H 347 H (75-99) mg/dL 07/17/19 07/17/19 Range/Units 12:17 17:08 POC Glucose (mg/dL) 353 H 349 H (75-99) mg/dL Microbiology - Last 24 Hours (Table) 07/14/19 12:55 Blood Culture - Preliminary Blood No Growth after 72 hours 07/15/19 15:10 Gram Stain - Final Foot - Right Wound Culture - Final Methicillin resist S. aureus Assessment and Plan (1) Obstructive sleep apnea (adult) (pediatric) Current Visit: Yes Status: Acute Code(s): G47.33 - OBSTRUCTIVE SLEEP APNEA (ADULT) (PEDIATRIC) SNOMED Code(s): 38541275 (2) COPD with acute exacerbation Current Visit: Yes Status: Acute Code(s): J44.1 - CHRONIC OBSTRUCTIVE PULMONARY DISEASE W (ACUTE) EXACERBATION SNOMED Code(s): 152395069 (3) Pneumonia Current Visit: Yes Status: Acute Code(s): J18.9 - PNEUMONIA, UNSPECIFIED ORGANISM SNOMED Code(s): 496499002 (4) Abdominal pain Current Visit: No Status: Acute Code(s): R10.9 - UNSPECIFIED ABDOMINAL PAIN SNOMED Code(s): 52924599 (5) Acute systolic (congestive) heart failure Current Visit: No Status: Acute Code(s): I50.21 - ACUTE SYSTOLIC (CO NGESTIVE) HEART FAILURE SNOMED Code(s): 343603599
[2019-07-17 20:01] LABS: Glucose,Whole Blood 309 mg/dL (75-99)
[2019-07-17] MEDS: INSULIN DETEMIR (LEVEMIR) 100 UNIT/ML SYR SQ SCH (20:58)
[2019-07-17] MEDS: PRAVASTATIN SODIUM 40 MG TAB PO SCH (20:59)
[2019-07-17] MEDS: MAGNESIUM OXIDE 400 MG TAB PO SCH (20:59)
[2019-07-17] MEDS: ESCITALOPRAM 10 MG TAB PO SCH (20:59)
[2019-07-17] MEDS: MONTELUKAST 10 MG TAB PO SCH (21:00)
[2019-07-18] MEDS: methylPREDNISolone SOD SUCCI 125 MG/2 ML VIAL IV SCH ×5 (00:14→23:19)
[2019-07-18] MEDS: HEPARIN SODIUM,PORCINE 5,000 UNIT/ML 1 ML VIAL SQ SCH ×4 (00:15→23:19)
[2019-07-18] MEDS: FUROSEMIDE 40 MG TAB PO SCH ×2 (05:51→14:47)
[2019-07-18 07:23] LABS: Glucose,Whole Blood 190 mg/dL (75-99)
[2019-07-18] MEDS: amLODIPine 5 MG TAB PO SCH (07:29)
[2019-07-18] MEDS: ACETAMINOPHEN TAB 500 MG TAB PO SCH ×2 (07:29→21:23)
[2019-07-18] MEDS: PANTOPRAZOLE 40 MG TABLET PO SCH (07:30)
[2019-07-18] MEDS: LISINOPRIL 5 MG TAB PO SCH (07:30)
[2019-07-18] MEDS: INSULIN ASPART (NovoLOG) 100 UNIT/ML VIAL SQ SCH ×7 (07:30→21:26)
[2019-07-18] MEDS: IPRATROPIUM-ALBUTEROL 3 ML NEB INHALATION PRN ×4 (07:59→20:45)
[2019-07-18] MEDS: SYMBICORT 160-4.5 MCG INHALER INHALATION SCH ×2 (08:00→20:45)
[2019-07-18] MEDS: FLUTICASONE 50MCG/SPRAY NASAL 16GM EA NOSTRIL SCH (08:32)
[2019-07-18 11:50] LABS: Glucose,Whole Blood 121 mg/dL (75-99)
--- NOTE | 2019-07-18 13:24 | P.PN ---
Subjective Progress Note Date: 07/18/19 Principal diagnosis: Acute exacerbation of COPD and purulent tracheobronchitis. This is a pleasant 84-year-old gentleman who follows with Dr. Veras as his primary care provider. He has a history of atrial fibrillation, coronary artery disease with previous coronary artery bypass grafting 3 in 2000, partial left nephrectomy in 2013, distal pancreatectomy, splenectomy at [facility] years ago, congestive heart failure, CVA/TIA, diabetes mellitus, GERD, hyperlipidemia, hypertension, osteoarthritis, lower extremity cellulitis. He has his history of chronic obstructive pulmonary disease with obstructive sleep apnea and follows in our office for the same. His FEV1 value is 1.36 L which is 49% of predicted. He is maintained on DuoNeb inhalations, Singulair, Symbicort. He has previous history of obstructive sleep apnea along with central sleep apnea and had recently been evaluated by Dr. Vieira last month. His AHI is 24. He is set at 13 cm water on his CPAP. He had suggested a follow-up sleep study which the patient had not performed just yet. He presented here to the emergency room 2 days ago with complaints of increasing shortness of breath, cough congestion. His chest x-ray reveals evidence of chronic pleural parenchymal changes. Atelectasis in the right midlung. Borderline cardiomegaly. Improved aeration of the left lung compared to previous and April 2019. Cultures of the wound of the right heel are pending. Blood cultures reveal no growth to date. White count 21.5. Hemoglobin 12.2. Sodium 136. Potassium 4.5. Creatinine 0.95. Influenza screen was negative. He is currently on a insulin drip at 2.5 units per hour. He's been initiated and DuoNeb inhalations, IV Solu-Medrol, ceftriaxone. He is seen today in consultation on the regular medical floor. He is currently sitting up in chair at the bedside. Awake and alert in no acute distress. He is maintaining O2 saturations in the mid 90s on 2 L/m per nasal cannula. He's been afebrile. He did have a T-max of 100.5 two days ago. Hemodynamically stable. Shortness of breath is about the same. Loose productive cough. Sputum culture pending. Reevaluated today on 07/17/19, patient is feeling a bit better, breathing easier, however he continues to have some vague chest right-sided discomfort. Less cough and less wheezing less shortness of breath. CBC showed leukocytosis yesterday. Hemoglobin is 12.2 in a cluster normal BUN is 42 creatinine is 0.95. Patient was reevaluated today on 07/18, feeling better, breathing easier, minimal cough and minimal wheezing, continues to have some vague right-sided chest discomfort. Objective - Vital Signs Vital signs: Vital Signs Temp 96.1 F L 07/18/19 04:45 Pulse 84 07/18/19 11:35 Resp 20 07/18/19 08:00 BP 139/64 07/18/19 04:45 Pulse Ox 95 07/18/19 04:45 Intake & Output 07/17/19 07/18/19 07/18/19 18:59 06:59 18:59 Intake Total 400 Output Total 1800 700 Balance -1800 400 -700 Weight 103.7 kg Intake: Oral 400 Output: Urine 1800 700 Other: Voiding Method Urinal Urinal Urinal # Voids 3 - Exam GENERAL EXAM: Revealed 84-year-old white male in no distress on 2 L nasal cannula. HEAD: Normocephalic. EENT: PERRLA, EOMI, no icterus, no neck masses, no JVD, no stridor. CHEST: No chest wall deformity. LUNGS: Equal air entry with few scattered rhonchi, diminished. CVS: S1 and S2 normal with no audible murmur, regular rhythm. ABDOMEN: Obese, soft, No hepatosplenomegaly, normal bowel sounds, no guarding or rigidity. SPINE: No scoliosis or deformity SKIN: Wound on the right heel, x-rays of right foot noted. CENTRAL NERVOUS SYSTEM: No focal deficits, tone is normal in all 4 extremities. EXTREMITIES: There is no peripheral edema. No clubbing, no cyanosis. Peripheral pulses are intact. Psychiatric: Normal mood affect and normal mental status examination. - Labs CBC & Chem 7: 07/16/19 08:24 07/16/19 08:24 Labs: Abnormal Lab Results - Last 24 Hours (Table) 07/17/19 07/17/19 07/18/19 Range/Units 17:08 19:57 07:11 POC Glucose (mg/dL) 349 H 309 H 190 H (75-99) mg/dL 07/18/19 Range/Units 11:42 POC Glucose (mg/dL) 121 H (75-99) mg/dL Microbiology - Last 24 Hours (Table) 07/15/19 15:10 Gram Stain - Final Foot - Right Wound Culture - Final Methicillin resist S. aureus 07/14/19 12:55 Blood Culture - Preliminary Blood No Growth after 72 hours Assessment and Plan Assessment: Impression: Acute exacerbation of COPD and purulent tracheobronchitis. Chronic atrial fibrillation. Obstructive sleep apnea syndrome, on CPAP. Coronary artery disease and previous CABG in 2000. 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 Diabetes and diabetic neuropathy History of renal cell cancer and partial nephrectomy. 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 Chronic kidney disease stage III Benign essential hypertension Degenerative joint disease Dyslipidemia Recommendation: Continue bronchodilators. Continue antibiotics. Continue steroids. Continue GI and DVT prophylaxis. Patient will be cleared for discharge in the next 24 hours, and have follow-up on outpatient basis. Time with Patient: Less than 30
--- NOTE | 2019-07-18 15:29 | P.PN ---
Subjective Progress Note Date: 07/18/19 Fan is a 84-year-old white male well-known to me from the practice. He follows up with my partner typically. He is been hospitalized for acute copd and possible Pneumonia. Martin has a h/o congestive heart failure and atrial fibrillation. He also menitons after I look at hi foot, that he is seeing DOM for wound to right Heel. He had #2 right toe amputated last year for a similar wound. Quincy is very noncompliant. He supposed to have a CPAP which she has not used in years. He denies any current chest pains, pressures, or shortness of breath at rest. He denies any urinary frequency or urgency. 07/18/2019. Maintained on nebulized bronchodilators, IV steroids, Rocephin with breathing improving, nonproductive cough. Right foot wound culture positive for MRSA. Right foot x-ray reports no radiographic sequla of osteomyelitis of the right foot. Afebrile. No labs today. Objective - Vital Signs Vital signs: Vital Signs Temp 97.4 F L 07/18/19 14:15 Pulse 68 07/18/19 14:15 Resp 22 07/18/19 14:15 BP 143/66 07/18/19 14:15 Pulse Ox 96 07/18/19 14:15 Intake & Output 07/17/19 07/18/19 07/18/19 18:59 06:59 18:59 Intake Total 400 Output Total 1800 1775 Balance -1800 400 -1775 Weight 103.7 kg Intake: Oral 400 Output: Urine 1800 1775 Other: Voiding Method Urinal Urinal Urinal # Voids 3 - Exam General: [Patient sitting up in chair, alert and oriented times 3, no acute distress.] HEENT: [PERRL. EOMI. No pharyngeal erythema or exudate.] Neck: [No adenopathy. Cardiac: [Heart regular in rate and rhythm. No S3. No S4. No clicks, rubs. No murmur.] Lungs: [Clear to auscultation bilaterally, occasional scattered rhonchi Abdomen: [No mass. No organomegaly. Bowel sounds presnt and normoactive in all 4 quadrants.] Extremes: [No edema no cyanosis no claudication normal pulses] ulcer heal of right foot Musculoskeletal: [No joint erythema, edema or tenderness.] Skin: [No rash.] Neurologic: [No lateralizing deficits. CN II - XII grossly intact.] Lymphatic: [No adenopathy.] - Labs CBC & Chem 7: 07/16/19 08:24 07/16/19 08:24 Labs: Abnormal Lab Results - Last 24 Hours (Table) 07/17/19 07/17/19 07/18/19 Range/Units 17:08 19:57 07:11 POC Glucose (mg/dL) 349 H 309 H 190 H (75-99) mg/dL 07/18/19 Range/Units 11:42 POC Glucose (mg/dL) 121 H (75-99) mg/dL Microbiology - Last 24 Hours (Table) 07/15/19 15:10 Gram Stain - Final Foot - Right Wound Culture - Final Methicillin resist S. aureus 07/14/19 12:55 Blood Culture - Preliminary Blood No Growth after 72 hours Assessment and Plan Assessment: Acute exacerbation chronic pulmonary disease complicated with tracheal bronchitis influenza resolving Obstructive sleep apnea with an AIH of 24 CPAP 13 cm of water however patient had not received CPAP device prior to admission Patient was diagnosed with obstructive sleep apnea approximately 20 years earlier and totally noncompliant with CPAP from the beginning Heart failure with diminished ejection fraction 45-50% Osteomyelitis with a history of MRSA in the right lower heel Diabetes mellitus type 2 Diabetic neuropathy History of left renal carcinoma status post partial nephrectomy splenectomy is a portion of the pancreas removed at [facility] in 2013 Chronic kidney disease stage III Hypertension by history Noncompliance by history Hyperlipidemia Plan: Continue on current medication regime ,monitoring and symptomatic treatment. Patient recently completed a sleep study, CPAP daily at bedtime ordered. Aggressive pulmonary toileting, maintain nebulized bronchodilators, steroids, antibiotics. Discharge planning in progress for tomorrow pending pulmonary clearance. The impression and plan of care has been dictated as directed. : I performed a history and examination of this patient, discussed the same with the dictator. I agree with the dictator's note ,documented as a scribe. Any additional findings or plans will be noted.
[2019-07-18 17:01] LABS: Glucose,Whole Blood 198 mg/dL (75-99)
[2019-07-18 20:29] LABS: Glucose,Whole Blood 135 mg/dL (75-99)
[2019-07-18] MEDS: PRAVASTATIN SODIUM 40 MG TAB PO SCH (21:23)
[2019-07-18] MEDS: MAGNESIUM OXIDE 400 MG TAB PO SCH (21:26)
[2019-07-18] MEDS: MONTELUKAST 10 MG TAB PO SCH (21:26)
[2019-07-18] MEDS: ESCITALOPRAM 10 MG TAB PO SCH (21:26)
[2019-07-18] MEDS: INSULIN DETEMIR (LEVEMIR) 100 UNIT/ML SYR SQ SCH (21:28)
[2019-07-19] MEDS: methylPREDNISolone SOD SUCCI 125 MG/2 ML VIAL IV SCH ×2 (05:04→12:32)
[2019-07-19 06:39] VITALS: BP 179/87; RESP 18; TEMP 97.4
[2019-07-19 07:06] LABS: Glucose,Whole Blood 196 mg/dL (75-99)
[2019-07-19] MEDS: amLODIPine 5 MG TAB PO SCH (07:49)
[2019-07-19] MEDS: FUROSEMIDE 40 MG TAB PO SCH (07:49)
[2019-07-19] MEDS: ACETAMINOPHEN TAB 500 MG TAB PO SCH (07:49)
[2019-07-19] MEDS: LISINOPRIL 5 MG TAB PO SCH (07:49)
[2019-07-19] MEDS: PANTOPRAZOLE 40 MG TABLET PO SCH (07:49)
[2019-07-19] MEDS: HEPARIN SODIUM,PORCINE 5,000 UNIT/ML 1 ML VIAL SQ SCH (07:49)
[2019-07-19] MEDS: INSULIN ASPART (NovoLOG) 100 UNIT/ML VIAL SQ SCH ×4 (07:50→12:33)
[2019-07-19] MEDS: FLUTICASONE 50MCG/SPRAY NASAL 16GM EA NOSTRIL SCH (07:51)
[2019-07-19] MEDS: SYMBICORT 160-4.5 MCG INHALER INHALATION SCH (09:49)
[2019-07-19] MEDS: IPRATROPIUM-ALBUTEROL 3 ML NEB INHALATION PRN (09:49)
[2019-07-19 10:02] VITALS: PULSE 68
[2019-07-19 11:34] LABS: Glucose,Whole Blood 138 mg/dL (75-99)
--- NOTE | 2019-07-19 13:25 | P.DS ---
Providers Date of admission: 07/14/19 14:48 Expected date of discharge: 07/19/19 Attending physician: Jono Key Consults: 07/15/19 13:54 Consult Physician Routine Consulting Provider: Devi Vieira Consult Reason/Comments: copd Do you want consulting provider notified?: Yes Primary care physician: [facility] Course: Final Diagnoses: Acute exacerbation chronic pulmonary disease complicated with tracheal bronchitis influenza resolving Obstructive sleep apnea with an AIH of 24 CPAP 13 cm of water however patient had not received CPAP device prior to admission Patient was diagnosed with obstructive sleep apnea approximately 20 years earlier and totally noncompliant with CPAP from the beginning Heart failure with diminished ejection fraction 45-50% Hx of Osteomyelitis with a history of MRSA in the right lower heel Diabetes mellitus type 2 Diabetic neuropathy History of left renal carcinoma status post partial nephrectomy splenectomy is a portion of the pancreas removed at [facility] in 2014 Chronic kidney disease stage III Hypertension by history Noncompliance by history Hyperlipidemia Hospital course:Fan is a 84-year-old white male well-known to me from the practice. He follows up with my partner typically. He is been hospitalized for acute copd and possible Pneumonia. Martin has a h/o congestive heart failure and atrial fibrillation. He also menitons after I look at hi foot, that he is seeing DOM for wound to right Heel. He had #2 right toe amputated last year for a similar wound. Quincy is very noncompliant. He supposed to have a CPAP which she has not used in years. He denies any current chest pains, pressures, or shortness of breath at rest. He denies any urinary frequency or urgency. 07/18/2019. Maintained on nebulized bronchodilators, IV steroids, Rocephin with breathing improving, nonproductive cough. Right foot wound culture positive for MRSA. Right foot x-ray reports no radiographic sequla of osteomyelitis of the right foot. Afebrile. No labs today. Significant clinical improvement. Patient will be discharged home in a stable condition with guarded prognosis pending pulmonary clearance. - Exam General: alert and oriented times 3, no acute distress.] Cardiac: [Heart regular in rate and rhythm. No S3. No S4. No clicks, rubs. No murmur.] Lungs: [Clear to auscultation bilaterally, occasional scattered rhonchi Abdomen: [No mass. No organomegaly. Bowel sounds presnt and normoactive in all 4 quadrants.] Neurologic: [No lateralizing deficits. CN II - XII grossly intact.] The impression and plan of care has been dictated as directed. : I performed a history and examination of this patient, discussed the same with the dictator. I agree with the dictator's note ,documented as a scribe. Any additional findings or plans will be noted. Patient Condition at Discharge: Stable Plan - Discharge Summary New Discharge Prescriptions: New Cefuroxime Axetil [Ceftin] 500 mg PO BID #10 tab predniSONE 10 mg PO DIRECTED #30 tab Continue Montelukast [Singulair] 10 mg PO HS Pravastatin Sodium 40 mg PO HS Acetaminophen Tab [Tylenol] 1,000 mg PO BID Pantoprazole [Protonix] 40 mg PO DAILY #30 tab Insulin Aspart [NovoLOG Flexpen] See Protocol SQ AC-TID PRN PRN Reason: Blood Sugar - High Budesonide-Formot 160-4.5 Mcg [Symbicort 160-4.5 Mcg Inhaler] 2 puff INHALATION RT-BID PRN PRN Reason: Shortness Of Breath Lisinopril [Zestril] 5 mg PO DAILY Cyanocobalamin (Vitamin B-12) [Vitamin B-12] 1,000 mcg PO TUFR Fluticasone Nasal [place] [Flonase Nasal [place]] 2 spray EA NOSTRIL DAILY #1 bottle Furosemide [Lasix] 40 mg PO BID #60 tab Insulin Aspart [NovoLOG Flexpen] 17 units SQ TID-W/MEALS #0 Magnesium Oxide [Mag-Ox] 400 mg PO HS Insulin Detemir [Levemir Flextouch] 60 units SQ HS amLODIPine [Norvasc] 5 mg PO DAILY #30 tab Escitalopram Oxalate [Lexapro] 10 mg PO HS #0 Branch-3 Fatty Acids/Fish Oil [Fish Oil 1,000 mg Softgel] 1 cap PO DAILY Ipratropium-Albuterol Nebulize [Duoneb 0.5 mg-3 mg/3 ml Soln] 3 ml INHALATION RT-QID #0 Discharge Medication List Montelukast [Singulair] 10 mg PO HS 12/21/14 [History] Pravastatin Sodium 40 mg PO HS 02/07/16 [History] Acetaminophen Tab [Tylenol] 1,000 mg PO BID 03/17/17 [History] Pantoprazole [Protonix] 40 mg PO DAILY #30 tab 03/21/17 [Rx] Insulin Aspart [NovoLOG Flexpen] See Protocol SQ AC-TID PRN 11/12/17 [History] Budesonide-Formot 160-4.5 Mcg [Symbicort 160-4.5 Mcg Inhaler] 2 puff INHALATION RT-BID PRN 11/13/17 [History] Lisinopril [Zestril] 5 mg PO DAILY 01/26/18 [History] Cyanocobalamin (Vitamin B-12) [Vitamin B-12] 1,000 mcg PO TUFR 01/15/19 [History] Fluticasone Nasal [place] [Flonase Nasal [place]] 2 spray EA NOSTRIL DAILY #1 bottle 01/22/19 [Rx] Furosemide [Lasix] 40 mg PO BID #60 tab 01/22/19 [Rx] Insulin Aspart [NovoLOG Flexpen] 17 units SQ TID-W/MEALS #0 01/22/19 [Rx] Insulin Detemir [Levemir Flextouch] 60 units SQ HS 02/10/19 [History] Magnesium Oxide [Mag-Ox] 400 mg PO HS 02/10/19 [History] Escitalopram Oxalate [Lexapro] 10 mg PO HS #0 05/23/19 [Rx] amLODIPine [Norvasc] 5 mg PO DAILY #30 tab 05/23/19 [Rx] Branch-3 Fatty Acids/Fish Oil [Fish Oil 1,000 mg Softgel] 1 cap PO DAILY 07/16/19 [History] Cefuroxime Axetil [Ceftin] 500 mg PO BID #10 tab 07/19/19 [Rx] Ipratropium-Albuterol Nebulize [Duoneb 0.5 mg-3 mg/3 ml Soln] 3 ml INHALATION RT-QID #0 07/19/19 [Rx] predniSONE 10 mg PO DIRECTED #30 tab 07/19/19 [Rx] Follow up Appointment(s)/Referral(s): Preet Sanabria MD [STAFF PHYSICIAN] - 2 Weeks Luis Quesada Jr, DO [Primary Care Provider] - 07/24/19 8:30 am [facility], [NON-STAFF] - Katelynn Rivas MD [STAFF PHYSICIAN] - As Needed (Per order ) Ambulatory/Diagnostic Orders: Complete Blood Count w/diff [LAB.AMB] Time Frame: 3 Days, Location: None Selected Patient Instructions/Handouts: Pneumonia (DC) Activity/Diet/Wound Care/Special Instructions: Sputum cx results to Dr. Quesada and Dr. Sanabria Diabetic, cardiac diet. Limited activity until follow up. Elevate legs at rest. Continue wound care as at home. MRSA precautions. Oxygen at 2L nasal cannula. Discharge Disposition: HOME WITH HOME HEALTH SERVICES
== END 2019-07-19 13:03 | disposition home health service (06) | DRG 191 ==
LOC: EC 12:22 → 6NMEDSUR 14:48
PROVIDERS: ADMIT Family Medicine; ATTEND Family Medicine
DX: J44.1 Chronic obstructive pulmonary disease with (acute) exacerbation (principal); I13.0 Hypertensive heart and chronic kidney disease with heart failure and stage 1 through stage 4 chronic kidney disease, or unspecified chronic kidney disease; I50.22 Chronic systolic (congestive) heart failure; J98.11 Atelectasis; L97.419 Non-pressure chronic ulcer of right heel and midfoot with unspecified severity; I27.20 Pulmonary hypertension, unspecified; B95.62 Methicillin resistant Staphylococcus aureus infection as the cause of diseases classified elsewhere; E11.22 Type 2 diabetes mellitus with diabetic chronic kidney disease; E11.40 Type 2 diabetes mellitus with diabetic neuropathy, unspecified; N18.3 Chronic kidney disease, stage 3 (moderate); E11.621 Type 2 diabetes mellitus with foot ulcer; E11.51 Type 2 diabetes mellitus with diabetic peripheral angiopathy without gangrene; E78.5 Hyperlipidemia, unspecified; F32.9 Major depressive disorder, single episode, unspecified; F41.9 Anxiety disorder, unspecified; G47.33 Obstructive sleep apnea (adult) (pediatric); I08.1 Rheumatic disorders of both mitral and tricuspid valves; I25.10 Atherosclerotic heart disease of native coronary artery without angina pectoris; I25.2 Old myocardial infarction; I48.0 Paroxysmal atrial fibrillation; M19.041 Primary osteoarthritis, right hand; M19.042 Primary osteoarthritis, left hand; N40.0 Benign prostatic hyperplasia without lower urinary tract symptoms; K21.9 Gastro-esophageal reflux disease without esophagitis; K44.9 Diaphragmatic hernia without obstruction or gangrene; M47.9 Spondylosis, unspecified; Z79.4 Long term (current) use of insulin; Z79.51 Long term (current) use of inhaled steroids; Z79.899 Other long term (current) drug therapy; Z88.1 Allergy status to other antibiotic agents; Z88.5 Allergy status to narcotic agent; Z88.0 Allergy status to penicillin; Z88.2 Allergy status to sulfonamides; Z88.8 Allergy status to other drugs, medicaments and biological substances; Z95.1 Presence of aortocoronary bypass graft; Z91.19 Patient's noncompliance with other medical treatment and regimen; Z90.81 Acquired absence of spleen; Z90.5 Acquired absence of kidney; Z90.411 Acquired partial absence of pancreas; Z87.891 Personal history of nicotine dependence; Z86.73 Personal history of transient ischemic attack (TIA), and cerebral infarction without residual deficits; Z86.14 Personal history of Methicillin resistant Staphylococcus aureus infection; Z85.528 Personal history of other malignant neoplasm of kidney; Z87.01 Personal history of pneumonia (recurrent); Z87.440 Personal history of urinary (tract) infections; Z98.42 Cataract extraction status, left eye; Z98.41 Cataract extraction status, right eye; Z96.1 Presence of intraocular lens; Z82.49 Family history of ischemic heart disease and other diseases of the circulatory system; Z82.5 Family history of asthma and other chronic lower respiratory diseases
CPT/HCPCS: 36415; 71046; 80048; 80053; 83036; 83605; 83735; 83880; 84134; 84484; 85025; 85610; 85652; 85730; 86140; 87040; 87070; 87075; 87077; 87186; 87205; 87502; 93005; 94640; 94760; 96365; 96366; 96375; 99285

== ENCOUNTER 2019-08-29 17:56 | Emergency (ER) | payer MEDICARE, BC ==
[2019-08-29] MEDS ORDERED: PANTOPRAZOLE 40 MG/10 ML VIAL IVP ONE (17:58)
--- NOTE | 2019-08-29 18:15 | ED ---
General Adult HPI - General Chief complaint: Recheck/Abnormal Lab/Rx Stated complaint: Low blood count Time Seen by Provider: 08/29/19 17:57 Source: patient, family Mode of arrival: wheelchair Limitations: physical limitation - History of Present Illness Initial comments: Dictation was produced using angel[employer] dictation software. please excuse any gra mmatical, word or spelling errors. This patient was cared for during a federal and state declared state of emergency secondary to Covid 19 Chief Complaint: 84-year-old male with past medical history of anemia, atrial for ablation, dyslipidemia and hypertension presents with low hemoglobin. History of Present Illness: His 84-year-old female he was found to have low hemoglobin recently. He was sent by his primary care physician. Patient is accompanied by family member. They noted that patient has been weak for the last couple days. Patient has had symptoms like this in the past. He is known history of anemia and gets iron infusions. . Denies any diarrhea or bleeding per rectum. He was sent in by his primary care physician for blood transfusion. Patient also complains of some shortness of breath with exertion. Patient does not take any blood thinners. The ROS documented in this emergency department record has been reviewed and confirmed by me. Those systems with pertinent positive or negative responses have been documented in the HPI. All other systems are other negative and/or noncontributory. PHYSICAL EXAM: General Impression: Alert and oriented x3, not in acute distress HEENT: Normocephalic atraumatic, extra-ocular movements intact, pupils equal and reactive to light bilaterally, mucous membranes moist. Cardiovascular: Heart regular rate and rhythm, S1&S2 audible, no murmurs, rubs or gallops Chest: Able to complete full sentences, no retractions, no tachypnea Abdomen: Bowel sounds present, abdomen soft, non-tender, non-distended, no organomegaly Musculoskeletal: Pulses present and equal in all extremities, no peripheral edema Motor: no focal deficits noted Neurological: CN II-XII grossly intact, no focal motor or sensory deficits noted Skin: Intact with no visualized rashes Psych: Normal affect and mood ED course: 84-year-old male presents with low hemoglobin. Vital signs upon arrival shows heart rate 119, respiratory signs within acceptable limits. He has Laboratory evaluation obtained. Mild leukocytosis of 15.5. Hemoglobin 8.5, coag panel unremarkable. Metabolic panel she said 1:30 with a glucose of 399. Consistent with pseudohyponatremia. Left mild lactic acidosis of 2.2. Mild lactic acidosis likely secondary to dehydration from hyperglycemia. Patient advised to follow-up with primary care physician for outpatient management of diabetes and to reevaluate leukocytosis. There is concern that perhaps patient was confused with another person. Discussed results with Dr. Noble. Patient be discharged. - Related Data Home Medications Medication Instructions Recorded Confirmed Montelukast [Singulair] 10 mg PO HS 12/21/14 08/29/19 Pravastatin Sodium 40 mg PO HS 02/07/16 08/29/19 Acetaminophen Tab [Tylenol] 1,000 mg PO BID 03/17/17 08/29/19 Insulin Aspart [NovoLOG Flexpen] See Protocol SQ AC-TID PRN 11/12/17 08/29/19 Budesonide-Formot 160-4.5 Mcg 2 puff INHALATION RT-BID PRN 11/13/17 08/29/19 [Symbicort 160-4.5 Mcg Inhaler] Lisinopril [Zestril] 5 mg PO DAILY 01/26/18 08/29/19 Cyanocobalamin (Vitamin B-12) 1,000 mcg PO TUFR 01/15/19 08/29/19 [Vitamin B-12] Insulin Detemir [Levemir Flextouch] 35 units SQ BID 02/10/19 08/29/19 Magnesium Oxide [Mag-Ox] 400 mg PO HS 02/10/19 08/29/19 [place]-3 Fatty Acids/Fish Oil [Fish 1 cap PO DAILY 07/16/19 08/29/19 Oil 1,000 mg Softgel] Insulin Aspart [NovoLOG Flexpen] 12 units SQ TID-W/MEALS 08/29/19 08/29/19 Previous Rx's Medication Instructions Recorded Pantoprazole [Protonix] 40 mg PO DAILY #30 tab 03/21/17 Fluticasone Nasal [place] [Flonase 2 spray EA NOSTRIL DAILY #1 bottle 01/22/19 Nasal [place]] Furosemide [Lasix] 40 mg PO BID #60 tab 01/22/19 Escitalopram Oxalate [Lexapro] 10 mg PO HS #0 05/23/19 amLODIPine [Norvasc] 5 mg PO DAILY #30 tab 05/23/19 Ipratropium-Albuterol Nebulize 3 ml INHALATION RT-QID #0 07/19/19 [Duoneb 0.5 mg-3 mg/3 ml Soln] Allergies Allergy/AdvReac Type Severity Reaction Status Date / Time Penicillins Allergy Unknown Rash/Hives Verified 08/29/19 19:18 atorvastatin calcium Allergy Unknown Verified 08/29/19 19:18 [From Lipitor] ceftriaxone [From Rocephin] Allergy Rash/Hives Verified 08/29/19 19:18 clonazepam [From Klonopin] Allergy Hallucinati Verified 08/29/19 19:18 ons codeine Allergy Hallucinati Verified 08/29/19 19:18 ons haloperidol [From Haldol] Allergy Hallucinati Verified 08/29/19 19:18 ons haloperidol lactate Allergy Hallucinati Verified 08/29/19 19:18 [From Haldol] ons hydromorphone HCl Allergy Hallucinati Verified 08/29/19 19:18 [From Dilaudid] ons methylphenidate HCl Allergy Hallucinati Verified 08/29/19 19:18 [From Ritalin] ons morphine Allergy Hallucinati Verified 08/29/19 19:18 ons propofol Allergy Hallucinati Verified 08/29/19 19:18 ons quetiapine fumarate Allergy Hallucinati Verified 08/29/19 19:18 [From Seroquel] ons Sulfa (Sulfonamide Allergy Unknown Verified 08/29/19 19:18 Antibiotics) vancomycin Allergy Unknown Verified 08/29/19 19:18 ativan AdvReac Unknown Uncoded 08/29/19 18:01 Review of Systems ROS Statement: Those systems with pertinent positive or pertinent negative responses have been documented in the HPI. ROS Other: All systems not noted in ROS Statement are negative. Past Medical History Past Medical History: Atrial Fibrillation, Coronary Artery Disease (CAD), Cancer, Heart Failure, COPD, CVA/TIA, Diabetes Mellitus, Eye Disorder, GERD/Reflux, GI Bleed, Hyperlipidemia, Hypertension, Myocardial Infarction ([place]), Osteoarthritis (OA), Pneumonia, Renal Disease, Skin Disorder, Sleep Apnea/CPAP/BIPAP, Vascular Disorder Additional Past Medical History / Comment(s): osteomylitis, CAP, mild exacerbation CHF, tracheopurulent bronchitis, hypoxic respiratory failure, paroxysmal Afib, moderate mitral and tricuspid regurg and severe pulmonary HTN. Other hx: Anemia, blood and iron transfusions, right leg cellulitis, IDDM type II, neuropathy bilateral hands/feet, chronic diabetic wounds, 2014 L renal cancer with surgery - partial nephrectomy/spleenectomy/distal portion of giron creas removed at [facility], [place], [place] unknown date, BPH, gastritis, small hiatal hernia, past discitis T9-T10, arthritis bilateral hands/back, TARIQ - does not tolerate his CPAP, CKD stage III/hyperkalemia, UTI, sepsis, PVD. Last Myocardial Infarction Date:: UNKNOWN History of Any Multi-Drug Resistant Organisms: MRSA Date of last positivie culture/infection: 07/15/19 MDRO Source:: RIGHTfoot Past Surgical History: Coronary Bypass/CABG, Heart Catheterization, Orthopedic Surgery Additional Past Surgical History / Comment(s): Partial L nephrectomy, distal pancreatectomy, splenectomy - at [place], 2000 CABG - 3 vessel, EGD, colonoscopy, deviated septum surgery, skin/oral lesion removals, R carpal tunnel release, bilateral cataract removal, bilateral laser eye surgery for "leakage", Past Anesthesia/Blood Transfusion Reactions: Previous Problems w/ Anesthesia Additional Past Anesthesia/Blood Transfusion Reaction / Comment(s): 'TROUBLE COMING OUT OF ANESTHESIA' - DELUSIONAL. Patient has received blood in past without reaction. Past Psychological History: Anxiety, Depression Smoking Status: Never smoker Past Alcohol Use History: None Reported Past Drug Use History: None Reported - Past Family History Father Family Medical History: Myocardial Infarction ([place]) Additional Family Medical History / Comment(s): Father of a [place] at the age of 65yrs. Mother Family Medical History: COPD General Exam Limitations: physical limitation Course Vital Signs 08/29/19 08/29/19 17:57 19:22 Temperature 97.9 F 99.0 F Pulse Rate 119 H 86 Respiratory 20 18 Rate Blood Pressure 126/62 163/73 O2 Sat by Pulse 97 95 Oximetry Medical Decision Making - Lab Data Result diagrams: 08/29/19 18:25 08/29/19 18:25 Lab Results 08/29/19 08/29/19 08/29/19 Range/Units 18:25 18:25 18:25 WBC 15.5 H (3.8-10.6) k/uL RBC 3.36 L (4.30-5.90) m/uL Hgb 8.5 L (13.0-17.5) gm/dL Hct 27.7 L (39.0-53.0) % MCV 82.4 (80.0-100.0) fL MCH 25.3 (25.0-35.0) pg MCHC 30.7 L (31.0-37.0) g/dL RDW 16.5 H (11.5-15.5) % Plt Count 659 H (150-450) k/uL Neutrophils % (Manual) 91 % Lymphocytes % (Manual) 5 % Monocytes % (Manual) 3 % Eosinophils % (Manual) 1 % Neutrophils # (Manual) 14.11 H (1.3-7.7) k/uL Lymphocytes # (Manual) 0.78 L (1.0-4.8) k/uL Monocytes # (Manual) 0.47 (0-1.0) k/uL Eosinophils # (Manual) 0.16 (0-0.7) k/uL Nucleated RBCs 0 (0-0) /100 WBC Polychromasia Present Hypochromasia Marked Hypochromasia (manual) Present Poikilocytosis Slight Anisocytosis Slight Anisocytosis (manual) Present Target Cells Present Henriquez-Woodlyn Bodies Present Crenated Cell Present PT 12.9 H (9.0-12.0) sec INR 1.3 H (<1.2) APTT 30.5 H (22.0-30.0) sec Sodium (137-145) mmol/L Potassium (3.5-5.1) mmol/L Chloride (98-107) mmol/L Carbon Dioxide (22-30) mmol/L Anion Gap mmol/L BUN (9-20) mg/dL Creatinine (0.66-1.25) mg/dL Est GFR (CKD-EPI)AfAm (>60 ml/min/1.73 sqM) Est GFR (CKD-EPI)NonAf (>60 ml/min/1.73 sqM) Glucose (74-99) mg/dL POC Glucose (mg/dL) (75-99) mg/dL POC Glu Electron Beam Machine Welder Setter ID Plasma Lactic Acid Dean (0.7-2.0) mmol/L Calcium (8.4-10.2) mg/dL Magnesium (1.6-2.3) mg/dL Total Bilirubin (0.2-1.3) mg/dL AST (17-59) U/L ALT (4-49) U/L Alkaline Phosphatase (38-126) U/L Troponin I (0.000-0.034) ng/mL Total Protein (6.3-8.2) g/dL Albumin (3.5-5.0) g/dL Blood Type A Negative Blood Type Recheck A Neg Bld Type Recheck Status No Antibody Screen NEGATIVE Spec Expiration Date 09/01/2019232408/29/19 08/29/19 08/29/19 Range/Units 18:25 18:25 18:25 WBC (3.8-10.6) k/uL RBC (4.30-5.90) m/uL Hgb (13.0-17.5) gm/dL Hct (39.0-53.0) % MCV (80.0-100.0) fL MCH (25.0-35.0) pg MCHC (31.0-37.0) g/dL RDW (11.5-15.5) % Plt Count (150-450) k/uL Neutrophils % (Manual) % Lymphocytes % (Manual) % Monocytes % (Manual) % Eosinophils % (Manual) % Neutrophils # (Manual) (1.3-7.7) k/uL Lymphocytes # (Manual) (1.0-4.8) k/uL Monocytes # (Manual) (0-1.0) k/uL Eosinophils # (Manual) (0-0.7) k/uL Nucleated RBCs (0-0) /100 WBC Polychromasia Hypochromasia Hypochromasia (manual) Poikilocytosis Anisocytosis Anisocytosis (manual) Target Cells Henriquez-Woodlyn Bodies Crenated Cell PT (9.0-12.0) sec INR (<1.2) APTT (22.0-30.0) sec Sodium 130 L (137-145) mmol/L Potassium 4.9 (3.5-5.1) mmol/L Chloride 95 L (98-107) mmol/L Carbon Dioxide 25 (22-30) mmol/L Anion Gap 10 mmol/L BUN 32 H (9-20) mg/dL Creatinine 1.02 (0.66-1.25) mg/dL Est GFR (CKD-EPI)AfAm 79 (>60 ml/min/1.73 sqM) Est GFR (CKD-EPI)NonAf 68 (>60 ml/min/1.73 sqM) Glucose 399 H (74-99) mg/dL POC Glucose (mg/dL) (75-99) mg/dL POC Glu Electron Beam Machine Welder Setter ID Plasma Lactic Acid Dean 2.2 H* (0.7-2.0) mmol/L Calcium 9.4 (8.4-10.2) mg/dL Magnesium 2.0 (1.6-2.3) mg/dL Total Bilirubin 0.4 (0.2-1.3) mg/dL AST 33 (17-59) U/L ALT 22 (4-49) U/L Alkaline Phosphatase 84 (38-126) U/L Troponin I <0.012 (0.000-0.034) ng/mL Total Protein 6.8 (6.3-8.2) g/dL Albumin 4.0 (3.5-5.0) g/dL Blood Type Blood Type Recheck Bld Type Recheck Status Antibody Screen Spec Expiration Date 08/29/19 Range/Units 18:36 WBC (3.8-10.6) k/uL RBC (4.30-5.90) m/uL Hgb (13.0-17.5) gm/dL Hct (39.0-53.0) % MCV (80.0-100.0) fL MCH (25.0-35.0) pg MCHC (31.0-37.0) g/dL RDW (11.5-15.5) % Plt Count (150-450) k/uL Neutrophils % (Manual) % Lymphocytes % (Manual) % Monocytes % (Manual) % Eosinophils % (Manual) % Neutrophils # (Manual) (1.3-7.7) k/uL Lymphocytes # (Manual) (1.0-4.8) k/uL Monocytes # (Manual) (0-1.0) k/uL Eosinophils # (Manual) (0-0.7) k/uL Nucleated RBCs (0-0) /100 WBC Polychromasia Hypochromasia Hypochromasia (manual) Poikilocytosis Anisocytosis Anisocytosis (manual) Target Cells Henriquez-Woodlyn Bodies Crenated Cell PT (9.0-12.0) sec INR (<1.2) APTT (22.0-30.0) sec Sodium (137-145) mmol/L Potassium (3.5-5.1) mmol/L Chloride (98-107) mmol/L Carbon Dioxide (22-30) mmol/L Anion Gap mmol/L BUN (9-20) mg/dL Creatinine (0.66-1.25) mg/dL Est GFR (CKD-EPI)AfAm (>60 ml/min/1.73 sqM) Est GFR (CKD-EPI)NonAf (>60 ml/min/1.73 sqM) Glucose (74-99) mg/dL POC Glucose (mg/dL) 423 H (75-99) mg/dL POC Glu Electron Beam Machine Welder Setter ID Monica Guzman Plasma Lactic Acid Dean (0.7-2.0) mmol/L Calcium (8.4-10.2) mg/dL Magnesium (1.6-2.3) mg/dL Total Bilirubin (0.2-1.3) mg/dL AST (17-59) U/L ALT (4-49) U/L Alkaline Phosphatase (38-126) U/L Troponin I (0.000-0.034) ng/mL Total Protein (6.3-8.2) g/dL Albumin (3.5-5.0) g/dL Blood Type Blood Type Recheck Bld Type Recheck Status Antibody Screen Spec Expiration Date Disposition Clinical Impression: Abnormal laboratory test Disposition: HOME SELF-CARE Condition: Good Instructions (If sedation given, give patient instructions): Anemia (ED) Is patient prescribed a controlled substance at d/c from ED?: No Referrals: Luis Quesada Jr, DO [Primary Care Provider] - 1-2 days Time of Disposition: 20:34
[2019-08-29 18:38] LABS: Glucose,Whole Blood 423 mg/dL (75-99)
[2019-08-29 19:02] LABS: Calcium 9.4 mg/dL (8.4-10.2); INR 1.3 (<1.2); Partial Thromboplastin Time 30.5 sec (22.0-30.0); Potassium 4.9 mmol/L (3.5-5.1); Prothrombin Time 12.9 sec (9.0-12.0); Total Bilirubin 0.4 mg/dL (0.2-1.3); Total Protein 6.8 g/dL (6.3-8.2)
[2019-08-29 19:08] LABS: Anisocytosis Slight; HCT 27.7 % (39.0-53.0); HGB 8.5 gm/dL (13.0-17.5); Hypochromasia Marked; MCH 25.3 pg (25.0-35.0); MCHC 30.7 g/dL (31.0-37.0); MCV 82.4 fL (80.0-100.0); Mean Platelet Volume 8.3; Platelet Count 659 k/uL (150-450); Poikilocytosis Slight; RBC 3.36 m/uL (4.30-5.90); RDW 16.5 % (11.5-15.5); WBC 15.5 k/uL (3.8-10.6)
[2019-08-29 19:23] LABS: Anisocytosis (M) Present; Crenated RBC Present; Eosinophils # (M) 0.16 k/uL (0-0.7); Hypochromasia (M) Present; Lymphocytes # (M) 0.78 k/uL (1.0-4.8); Monocytes # (M) 0.47 k/uL (0-1.0); Neutrophils # (M) 14.11 k/uL (1.3-7.7); Neutrophils % (M) 91 %; Nucleated Red Blood Cells 0 /100 WBC (0-0); Polychromasia Present; Target Cells Present; Total Cells Counted 100
[2019-08-29 19:24] VITALS: RESP 18
[2019-08-29 19:24] LABS: Howell-Jolly Bodies Present
[2019-08-29] MEDS ORDERED: ACETAMINOPHEN TAB 325 MG TAB PO STA (20:26)
[2019-08-29 20:33] VITALS: BP 144/69; PULSE 63; TEMP 98.2
== END 2019-08-29 20:50 | disposition home or self-care (01) ==
LOC: EC 17:56
DX: R89.9 Unspecified abnormal finding in specimens from other organs, systems and tissues (principal); I25.10 Atherosclerotic heart disease of native coronary artery without angina pectoris; I13.0 Hypertensive heart and chronic kidney disease with heart failure and stage 1 through stage 4 chronic kidney disease, or unspecified chronic kidney disease; I50.9 Heart failure, unspecified; N18.3 Chronic kidney disease, stage 3 (moderate); I48.0 Paroxysmal atrial fibrillation; E11.40 Type 2 diabetes mellitus with diabetic neuropathy, unspecified; J44.9 Chronic obstructive pulmonary disease, unspecified; I25.2 Old myocardial infarction; G47.33 Obstructive sleep apnea (adult) (pediatric); E78.5 Hyperlipidemia, unspecified; E11.51 Type 2 diabetes mellitus with diabetic peripheral angiopathy without gangrene; Z79.4 Long term (current) use of insulin; Z79.899 Other long term (current) drug therapy; Z88.0 Allergy status to penicillin; Z88.1 Allergy status to other antibiotic agents; Z88.5 Allergy status to narcotic agent; Z88.8 Allergy status to other drugs, medicaments and biological substances; Z88.2 Allergy status to sulfonamides; Z95.1 Presence of aortocoronary bypass graft; Z85.528 Personal history of other malignant neoplasm of kidney; Z90.5 Acquired absence of kidney; Z86.73 Personal history of transient ischemic attack (TIA), and cerebral infarction without residual deficits
CPT/HCPCS: 36415; 93005; 86900; 86901; 80053; 83605; 83735; 84484; 85025; 85610; 85730; 86850; 99284; 96374; C9113

== ENCOUNTER → 2019-09-20 | Outpatient (CLI) | payer MEDICARE, BC ==
--- NOTE | 2019-09-20 13:11 | NM ---
EXAMINATION TYPE: NM bone 3 phase DATE OF EXAM: 09/20/2019 COMPARISON: Right foot radiographs dated 07/15/[address] of the chest, abdomen, and pelvis dated 04/2019 HISTORY: Foot ulcer. Right foot pain. Assess for osteomyelitis of the right heel. History renal cell carcinoma. Triple phase bone scintigraphy was performed following the injection of 22.8 mCi Tc 99m MDP. Immedia te images and 4.5 hours post injection images acquired. FINDINGS: There is focal increased radiotracer uptake during flow, blood pool, and on delayed images to the rig ht calcaneus. Total body images demonstrate increased focal radiotracer uptake of the T10 vertebral body. On the pr ior CT there is near fusion of the T9 and T10 vertebral bodies with some sclerosis of the right 10th rib posteriorly. Radiotracer uptake is also seen of multiple left lateral ribs at approximately T5-T8 . Presumably degenerative uptake is seen within the shoulders, sternoclavicular joint, sacroiliac mohit nts, and to a lesser degree of the hips. IMPRESSION: 1. 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 2. Focal radiotracer uptake of the T10 vertebral body that is indeterminate. MRI of the thoracic spin e w con is recommended to evaluate for bone marrow replacing process. 3. Multifocal uptake of contiguous left ribs relating to prior fracture deformities seen on the prior CT of 04/02/2019.
== END | disposition home or self-care (01) ==
LOC: RADNMMAIN 07:02
PROVIDERS: ATTEND Family Medicine
DX: E11.621 Type 2 diabetes mellitus with foot ulcer (principal); R11.2 Nausea with vomiting, unspecified; Z88.0 Allergy status to penicillin; Z88.2 Allergy status to sulfonamides; Z88.8 Allergy status to other drugs, medicaments and biological substances
CPT/HCPCS: 78315; A9503

== ENCOUNTER → 2019-09-25 | Outpatient (CLI) | payer MEDICARE, BC ==
[2019-09-25 11:49] LABS: Anisocytosis Moderate; Basophils # (A) 0.1 k/uL (0-0.2); Basophils % (A) 1 %; Eosinophils # (A) 0.2 k/uL (0-0.7); Eosinophils % (A) 2 %; HCT 26.9 % (39.0-53.0); HGB 7.9 gm/dL (13.0-17.5); Hypochromasia Marked; Lymphocytes % (A) 11 %; MCH 25.4 pg (25.0-35.0); MCHC 29.4 g/dL (31.0-37.0); MCV 86.4 fL (80.0-100.0); Mean Platelet Volume 7.9; Monocytes # (A) 0.6 k/uL (0-1.0); Monocytes % (A) 7 %; Neutrophils % (A) 78 %; Platelet Count 332 k/uL (150-450); Poikilocytosis Slight; RBC 3.11 m/uL (4.30-5.90); RDW 21.3 % (11.5-15.5)
[2019-09-25 18:32] LABS: African American GFR (CKD) 91.9 (60.0-200.0); Albumin 4.1 g/dL (3.80-4.90); Albumin/Globulin Ratio 1.78 (1.60-3.17); Anion Gap 12.8 mmol/L (4.00-12.00); BUN/Creat Ratio 34.44 Ratio (12.00-20.00); Calcium 9.9 mg/dL (8.7-10.3); Carbon Dioxide 28.2 mmol/L (21.6-31.8); Globulin 2.3 g/dL (1.6-3.3); Non-African American GFR(CKD) 79.3 (60.0-200.0); Potassium 4.5 mmol/L (3.5-5.5); Total Bilirubin 0.3 mg/dL (0.3-1.2); Total Protein 6.4 g/dL (6.2-8.2)
[2019-09-26 04:21] LABS: Hemoglobin A1C 6.9 % (4.0-6.0)
== END | disposition home or self-care (01) ==
LOC: LABWHC1 10:54
PROVIDERS: ATTEND Thoracic Surgery (Cardiothoracic Vascular Surgery)
DX: E08.621 Diabetes mellitus due to underlying condition with foot ulcer (principal); L97.412 Non-pressure chronic ulcer of right heel and midfoot with fat layer exposed; M86.271 Subacute osteomyelitis, right ankle and foot
CPT/HCPCS: 36415; 80053; 83036; 84134; 85025

== ENCOUNTER 2019-09-27 22:35 | Emergency (ER) | payer MEDICARE, BC ==
[2019-09-27 22:41] VITALS: RESP 18
[2019-09-27 22:48] LABS: Glucose,Whole Blood 311 mg/dL (75-99)
--- NOTE | 2019-09-27 23:25 | ED ---
Recheck HPI - General Chief Complaint: Recheck/Abnormal Lab/Rx Stated Complaint: Hyperglycemia Time Seen by Provider: 09/27/19 22:39 Source: EMS, RN notes reviewed Mode of arrival: wheelchair Limitations: no limitations - History of Present Illness Initial Comments: This is an 82-year-old male well-known to this emergency department or facility for evaluation of with family fears may be a pending low blood sugar. Patient elevated blood sugar later given a dose of insulin a and realized that she thinks she to high dose maybe a double dose. Patient self presents he is asymptomatic is a diabetic is on insulin patient is in good spirits denying any headache shortness breath chest pain abdominal pain recent nausea vomiting diarrhea no fevers. Patient is without complaint here in the ER EMS the patient's blood sugar over 400 on arrival in the ER is around 350 MD Complaint: abnormal lab (Elevated blood sugar) -: hour(s) Returns Today for: Called Because of Abnormal Lab/Test ( concern for increased insulin dose) Symptoms Since Prior Visit: no new symptoms Associated Symptoms: none Treatments Prior to Arrival: other medications (Patient given increased dose of insulin prior to arrival) - Related Data Home Medications Medication Instructions Recorded Confirmed Montelukast [Singulair] 10 mg PO HS 12/21/14 08/29/19 Pravastatin Sodium 40 mg PO HS 02/07/16 08/29/19 Acetaminophen Tab [Tylenol] 1,000 mg PO BID 03/17/17 08/29/19 Insulin Aspart [NovoLOG Flexpen] See Protocol SQ AC-TID PRN 11/12/17 08/29/19 Budesonide-Formot 160-4.5 Mcg 2 puff INHALATION RT-BID PRN 11/13/17 08/29/19 [Symbicort 160-4.5 Mcg Inhaler] Lisinopril [Zestril] 5 mg PO DAILY 01/26/18 08/29/19 Cyanocobalamin (Vitamin B-12) 1,000 mcg PO TUFR 01/15/19 08/29/19 [Vitamin B-12] Insulin Detemir [Levemir Flextouch] 35 units SQ BID 02/10/19 08/29/19 Magnesium Oxide [Mag-Ox] 400 mg PO HS 02/10/19 08/29/19 [place]-3 Fatty Acids/Fish Oil [Fish 1 cap PO DAILY 07/16/19 08/29/19 Oil 1,000 mg Softgel] Insulin Aspart [NovoLOG Flexpen] 12 units SQ TID-W/MEALS 08/29/19 08/29/19 Previous Rx's Medication Instructions Recorded Pantoprazole [Protonix] 40 mg PO DAILY #30 tab 03/21/17 Fluticasone Nasal [place] [Flonase 2 spray EA NOSTRIL DAILY #1 bottle 01/22/19 Nasal [place]] Furosemide [Lasix] 40 mg PO BID #60 tab 01/22/19 Escitalopram Oxalate [Lexapro] 10 mg PO HS #0 05/23/19 amLODIPine [Norvasc] 5 mg PO DAILY #30 tab 05/23/19 Ipratropium-Albuterol Nebulize 3 ml INHALATION RT-QID #0 07/19/19 [Duoneb 0.5 mg-3 mg/3 ml Soln] Allergies Allergy/AdvReac Type Severity Reaction Status Date / Time Penicillins Allergy Unknown Rash/Hives Verified 09/27/19 22:41 atorvastatin calcium Allergy Unknown Verified 09/27/19 22:41 [From Lipitor] ceftriaxone [From Rocephin] Allergy Rash/Hives Verified 09/27/19 22:41 clonazepam [From Klonopin] Allergy Hallucinati Verified 09/27/19 22:41 ons codeine Allergy Hallucinati Verified 09/27/19 22:41 ons haloperidol [From Haldol] Allergy Hallucinati Verified 09/27/19 22:41 ons haloperidol lactate Allergy Hallucinati Verified 09/27/19 22:41 [From Haldol] ons hydromorphone HCl Allergy Hallucinati Verified 09/27/19 22:41 [From Dilaudid] ons methylphenidate HCl Allergy Hallucinati Verified 09/27/19 22:41 [From Ritalin] ons morphine Allergy Hallucinati Verified 09/27/19 22:41 ons propofol Allergy Hallucinati Verified 09/27/19 22:41 ons quetiapine fumarate Allergy Hallucinati Verified 09/27/19 22:41 [From Seroquel] ons Sulfa (Sulfonamide Allergy Unknown Verified 09/27/19 22:41 Antibiotics) vancomycin Allergy Unknown Verified 09/27/19 22:41 ativan AdvReac Unknown Uncoded 09/27/19 22:41 Review of Systems ROS Statement: Those systems with pertinent positive or pertinent negative responses have been documented in the HPI. ROS Other: All systems not noted in ROS Statement are negative. Past Medical History Past Medical History: Atrial Fibrillation, Coronary Artery Disease (CAD), Cancer, Heart Failure, COPD, CVA/TIA, Diabetes Mellitus, Eye Disorder, GERD/Reflux, GI Bleed, Hyperlipidemia, Hypertension, Myocardial Infarction ([place]), Osteoarthritis (OA), Pneumonia, Renal Disease, Skin Disorder, Sleep Apnea/CPAP/BIPAP, Vascular Disorder Additional Past Medical History / Comment(s): osteomylitis, CAP, mild exacerbation CHF, tracheopurulent bronchitis, hypoxic respiratory failure, paroxysmal Afib, moderate mitral and tricuspid regurg and severe pulmonary HTN. Other hx: Anemia, blood and iron transfusions, right leg cellulitis, IDDM type II, neuropathy bilateral hands/feet, chronic diabetic wounds, 2013 L renal cancer with surgery - partial nephrectomy/spleenectomy/distal portion of p ancreas removed at [facility], [place], [place] unknown date, BPH, gastritis, small hiatal hernia, past discitis T9-T10, arthritis bilateral hands/back, TARIQ - does not tolerate his CPAP, CKD stage III/hyperkalemia, UTI, sepsis, PVD. Last Myocardial Infarction Date:: UNKNOWN History of Any Multi-Drug Resistant Organisms: MRSA Date of last positivie culture/infection: 07/15/19 MDRO Source:: RIGHTfoot Past Surgical History: Coronary Bypass/CABG, Heart Catheterization, Orthopedic Surgery Additional Past Surgical History / Comment(s): Partial L nephrectomy, distal pancreatectomy, splenectomy - at [place]2000 CABG - 3 vessel, EGD, colonoscopy, deviated septum surgery, skin/oral lesion removals, R carpal tunnel release, bilateral cataract removal, bilateral laser eye surgery for "leakage", Past Anesthesia/Blood Transfusion Reactions: Previous Problems w/ Anesthesia Additional Past Anesthesia/Blood Transfusion Reaction / Comment(s): 'TROUBLE COMING OUT OF ANESTHESIA' - DELUSIONAL. Patient has received blood in past without reaction. Past Psychological History: Anxiety, Depression Smoking Status: Never smoker Past Alcohol Use History: None Reported Past Drug Use History: None Reported - Past Family History Father Family Medical History: Myocardial Infarction ([place]) Additional Family Medical History / Comment(s): Father of a [place] at the age of 65yrs. Mother Family Medical History: COPD General Exam Limitations: no limitations General appearance: alert, in no apparent distress Head exam: Present: atraumatic, normocephalic, normal inspection Eye exam: Present: normal appearance, PERRL, EOMI. Absent: scleral icterus, conjunctival injection, periorbital swelling ENT exam: Present: normal exam, mucous membranes moist Neck exam: Present: normal inspection. Absent: tenderness, meningismus, lymphadenopathy Respiratory exam: Present: normal lung sounds bilaterally. Absent: respiratory distress, wheezes, rales, rhonchi, stridor Cardiovascular Exam: Present: regular rate, normal rhythm, normal heart sounds. Absent: systolic murmur, diastolic murmur, rubs, gallop, clicks GI/Abdominal exam: Present: soft, normal bowel sounds. Absent: distended, tenderness, guarding, rebound, rigid Extremities exam: Present: normal inspection, full ROM, normal capillary refill. Absent: tenderness, pedal edema, joint swelling, calf tenderness Back exam: Present: normal inspection Neurological exam: Present: alert, oriented X3, CN II-XII intact Psychiatric exam: Present: normal affect, normal mood Skin exam: Present: warm, dry, intact, normal color. Absent: rash Course Vital Signs 09/27/19 22:36 Temperature 99.0 F Pulse Rate 60 Respiratory 18 Rate O2 Sat by Pulse 98 Oximetry - Reevaluation(s) Reevaluation #1: 09/27/19 23:24 Medical records reviewed Reevaluation #2: 09/27/19 23:24 Patient is able to eat Reevaluation #3: 09/27/19 23:24 Spoke with patient's family and in the daughter was outside, daughter structure the patient is here in the ER Reevaluation #4: 09/27/19 23:24 Patient remains without complaint recheck blood sugar remains normal patient did eat here in the ER Medical Decision Making - Medical Decision Making 84 male DF for elevated blood sugar concern for increased insulin her to have an insulin dose at home. He is able to eat and drink and can be discharged - Lab Data Lab Results 09/27/19 Range/Units 22:42 POC Glucose (mg/dL) 311 H (75-99) mg/dL POC Glu Jewelry Maker Dorene Locke Disposition Clinical Impression: Hyperglycemia due to diabetes mellitus Disposition: HOME SELF-CARE Condition: Good Instructions (If sedation given, give patient instructions): Diabetic Hyperglycemia (ED) Is patient prescribed a controlled substance at d/c from ED?: No Referrals: Luis Quesada Jr, DO [Primary Care Provider] - 1-2 days
[2019-09-28] LABS: Glucose,Whole Blood 162 mg/dL (75-99)
[2019-09-28 00:30] LABS: Glucose,Whole Blood 119 mg/dL (75-99)
[2019-09-28 01:26] LABS: Glucose,Whole Blood 116 mg/dL (75-99)
[2019-09-28 01:46] VITALS: BP 128/74; PULSE 68; TEMP 98.7
== END 2019-09-28 01:46 | disposition home or self-care (01) ==
LOC: EC 22:35
DX: E11.65 Type 2 diabetes mellitus with hyperglycemia (principal); E11.40 Type 2 diabetes mellitus with diabetic neuropathy, unspecified; E11.22 Type 2 diabetes mellitus with diabetic chronic kidney disease; I11.0 Hypertensive heart disease with heart failure; N18.3 Chronic kidney disease, stage 3 (moderate); I50.9 Heart failure, unspecified; I25.2 Old myocardial infarction; E11.51 Type 2 diabetes mellitus with diabetic peripheral angiopathy without gangrene; G47.33 Obstructive sleep apnea (adult) (pediatric); E78.5 Hyperlipidemia, unspecified; I48.0 Paroxysmal atrial fibrillation; I25.10 Atherosclerotic heart disease of native coronary artery without angina pectoris; J44.9 Chronic obstructive pulmonary disease, unspecified; Z79.4 Long term (current) use of insulin; Z79.899 Other long term (current) drug therapy; Z79.51 Long term (current) use of inhaled steroids; Z88.0 Allergy status to penicillin; Z88.1 Allergy status to other antibiotic agents; Z88.2 Allergy status to sulfonamides; Z88.5 Allergy status to narcotic agent; Z88.8 Allergy status to other drugs, medicaments and biological substances; Z95.1 Presence of aortocoronary bypass graft; Z90.5 Acquired absence of kidney; Z86.73 Personal history of transient ischemic attack (TIA), and cerebral infarction without residual deficits; Z85.528 Personal history of other malignant neoplasm of kidney
CPT/HCPCS: 36415; 99283

== ENCOUNTER 2019-11-04 10:59 | Inpatient (IN) | payer MEDICARE, BC ==
[2019-11-04] MEDS ORDERED: SODIUM CHLORIDE 0.9% 1,000 ML IV STA (11:24)
[2019-11-04] MEDS ORDERED: PANTOPRAZOLE 40 MG/10 ML VIAL IVP STA (11:24)
--- NOTE | 2019-11-04 11:29 | ED ---
General Adult HPI - General Chief complaint: Nausea/Vomiting/Diarrhea Stated complaint: Dizzy Time Seen by Provider: 11/04/19 11:03 Source: patient, family, EMS, RN notes reviewed Mode of arrival: EMS Limitations: no limitations - History of Present Illness Initial comments: Patient is a pleasant 84-year-old male presenting to the emergency department w ith dizziness. Patient has had some rectal bleeding since yesterday. Patient does have history of this previously. Patient is supposed to have iron infusion today. No abdominal pain. Patient does have nausea and has vomited a couple of times. Patient feels dizzy and lightheaded. Patient at times feels like he is spinning. Daughter arrives and states patient does not normally vomit and she is very concerned regarding this. She states also that patient has had several episodes of rectal bleeding. - Related Data Home Medications Medication Instructions Recorded Confirmed Montelukast [Singulair] 10 mg PO HS 12/21/14 11/04/19 Pravastatin Sodium 40 mg PO HS 02/07/16 11/04/19 Acetaminophen Tab [Tylenol] 1,000 mg PO BID 03/17/17 11/04/19 Insulin Aspart [NovoLOG Flexpen] See Protocol SQ AC-TID PRN 11/12/17 11/04/19 Budesonide-Formot 160-4.5 Mcg 2 puff INHALATION RT-BID PRN 11/13/17 11/04/19 [Symbicort 160-4.5 Mcg Inhaler] Lisinopril [Zestril] 5 mg PO DAILY 01/26/18 11/04/19 Cyanocobalamin (Vitamin B-12) 1,000 mcg PO TUFR 01/15/19 11/04/19 [Vitamin B-12] Insulin Detemir [Levemir Flextouch] 35 units SQ BID 02/10/19 11/04/19 Magnesium Oxide [Mag-Ox] 400 mg PO HS 02/10/19 11/04/19 [place]-3 Fatty Acids/Fish Oil [Fish 1 cap PO DAILY 07/16/19 11/04/19 Oil 1,000 mg Softgel] Insulin Aspart [NovoLOG Flexpen] 12 units SQ TID-W/MEALS 08/29/19 11/04/19 Fluticasone Nasal [place] [Flonase 2 spray EA NOSTRIL DAILY PRN 11/04/19 11/04/19 Nasal [place]] Furosemide [Lasix] 80 mg PO DAILY 11/04/19 11/04/19 Nitroglycerin Sl Tabs [Nitrostat] 0.4 mg SUBLINGUAL Q5M PRN 11/04/19 11/04/19 Potassium Chloride [Klor-Con 20] 20 meq PO DAILY 11/04/19 11/04/19 Zinc 50 mg PO DAILY 11/04/19 11/04/19 amLODIPine [Norvasc] 5 mg PO HS 11/04/19 11/04/19 metFORMIN HCL 500 mg PO BID 11/04/19 11/04/19 Previous Rx's Medication Instructions Recorded Pantoprazole [Protonix] 40 mg PO DAILY #30 tab 03/21/17 Escitalopram Oxalate [Lexapro] 10 mg PO HS #0 05/23/19 Allergies Allergy/AdvReac Type Severity Reaction Status Date / Time Penicillins Allergy Unknown Rash/Hives Verified 11/04/19 11:02 atorvastatin calcium Allergy Unknown Verified 11/04/19 11:02 [From Lipitor] ceftriaxone [From Rocephin] Allergy Rash/Hives Verified 11/04/19 11:02 clonazepam [From Klonopin] Allergy Hallucinati Verified 11/04/19 11:02 ons codeine Allergy Hallucinati Verified 11/04/19 11:02 ons haloperidol [From Haldol] Allergy Hallucinati Verified 11/04/19 11:02 ons haloperidol lactate Allergy Hallucinati Verified 11/04/19 11:02 [From Haldol] ons hydromorphone HCl Allergy Hallucinati Verified 11/04/19 11:02 [From Dilaudid] ons methylphenidate HCl Allergy Hallucinati Verified 11/04/19 11:02 [From Ritalin] ons morphine Allergy Hallucinati Verified 11/04/19 11:02 ons propofol Allergy Hallucinati Verified 11/04/19 11:02 ons quetiapine fumarate Allergy Hallucinati Verified 11/04/19 11:02 [From Seroquel] ons Sulfa (Sulfonamide Allergy Unknown Verified 11/04/19 11:02 Antibiotics) vancomycin Allergy Unknown Verified 11/04/19 11:02 ativan AdvReac Unknown Uncoded 09/27/19 22:41 Review of Systems ROS Statement: Those systems with pertinent positive or pertinent negative responses have been documented in the HPI. ROS Other: All systems not noted in ROS Statement are negative. Constitutional: Denies: fever Eyes: Denies: eye pain ENT: Denies: ear pain Respiratory: Denies: cough Cardiovascular: Denies: chest pain Endocrine: Reports: fatigue Gastrointestinal: Reports: nausea, vomiting, hematochezia. Denies: abdominal pain Genitourinary: Denies: dysuria Musculoskeletal: Denies: back pain Skin: Denies: rash Neurological: Denies: headache, weakness Past Medical History Past Medical History: Atrial Fibrillation, Coronary Artery Disease (CAD), Cancer, Heart Failure, COPD, CVA/TIA, Diabetes Mellitus, Eye Disorder, GERD/Reflux, GI Bleed, Hyperlipidemia, Hypertension, Myocardial Infarction ([place]), Osteoarthritis (OA), Pneumonia, Renal Disease, Skin Disorder, Sleep Apnea/CPAP/BIPAP, Vascular Disorder Additional Past Medical History / Comment(s): osteomylitis, CAP, mild exacerbation CHF, tracheopurulent bronchitis, hypoxic respiratory failure, paroxysmal Afib, moderate mitral and tricuspid regurg and severe pulmonary HTN. Other hx: Anemia, blood and iron transfusions, right leg cellulitis, IDDM type II, neuropathy bilateral hands/feet, chronic diabetic wounds, 2013 L renal cancer with surgery - partial nephrectomy/spleenectomy/distal portion of pancre as removed at [facility], TIA, [place] unknown date, BPH, gastritis, small hiatal hernia, past discitis T9-T10, arthritis bilateral hands/back, TARIQ - does not tolerate his CPAP, CKD stage III/hyperkalemia, UTI, sepsis, PVD. Last Myocardial Infarction Date:: UNKNOWN History of Any Multi-Drug Resistant Organisms: MRSA Date of last positivie culture/infection: 10/02/19 MDRO Source:: RIGHTfoot Past Surgical History: Coronary Bypass/CABG, Heart Catheterization, Orthopedic S urgery Additional Past Surgical History / Comment(s): Partial L nephrectomy, distal pancreatectomy, splenectomy - at [id number] CABG - 3 vessel, EGD, colonoscopy, deviated septum surgery, skin/oral lesion removals, R carpal tunnel release, bilateral cataract removal, bilateral laser eye surgery for "leakage", Past Anesthesia/Blood Transfusion Reactions: Previous Problems w/ Anesthesia Additional Past Anesthesia/Blood Transfusion Reaction / Comment(s): 'TROUBLE COMING OUT OF ANESTHESIA' - DELUSIONAL. Patient has received blood in past without reaction. Past Psychological History: Anxiety, Depression Smoking Status: Never smoker Past Alcohol Use History: None Reported Past Drug Use History: None Reported - Past Family History Father Family Medical History: Myocardial Infarction ([place]) Additional Family Medical History / Comment(s): Father of a [place] at the age of 65yrs. Mother Family Medical History: COPD General Exam Limitations: no limitations General appearance: alert, in no apparent distress Head exam: Present: atraumatic Eye exam: Present: normal appearance, PERRL, EOMI Neck exam: Present: normal inspection Respiratory exam: Present: normal lung sounds bilaterally Cardiovascular Exam: Present: regular rate, normal rhythm GI/Abdominal exam: Present: soft. Absent: distended, tenderness Rectal exam: Present: normal inspection. Absent: black stool Extremities exam: Present: normal inspection, other (Right lower leg with wound cast) Neurological exam: Present: alert. Absent: motor sensory deficit Expanded Motor strength exam: RUE: 5, LUE: 5, RLE: 5, LLE: 5 Psychiatric exam: Present: normal affect, normal mood Skin exam: Present: normal color Course Vital Signs 11/04/19 11/04/19 11:02 12:03 Temperature 98.1 F Pulse Rate 60 51 L Respiratory 18 18 Rate Blood Pressure 161/76 141/64 O2 Sat by Pulse 95 Oximetry - Reevaluation(s) Reevaluation #1: 11/04/19 11:34 Case was discussed with practitioner Kayla covering with Dr. Groves who will consult. EKG Findings - EKG Comments: EKG Findings:: A. fib with slow ventricular response, rate 55. QRS 120. QTC 586. QTc 560. Normal axis. Incomplete left bundle-branch block. Nonspecific T waves. Medical Decision Making - Medical Decision Making Patient reevaluated. Patient and family updated. Case was discussed with Dr. Noble, who will admit his patient. Consult will be also placed for neurology. - Lab Data Result diagrams: 11/04/19 11:05 11/04/19 11:05 Lab Results 11/04/19 11/04/19 11/04/19 Range/Units 11:05 11:05 11:05 WBC 10.7 H (3.8-10.6) k/uL RBC 4.17 L (4.30-5.90) m/uL Hgb 10.5 L (13.0-17.5) gm/dL Hct 34.5 L (39.0-53.0) % MCV 82.6 D (80.0-100.0) fL MCH 25.3 (25.0-35.0) pg MCHC 30.6 L (31.0-37.0) g/dL RDW 18.6 H (11.5-15.5) % Plt Count 296 (150-450) k/uL Neutrophils % 71 % Lymphocytes % 16 % Monocytes % 8 % Eosinophils % 3 % Basophils % 1 % Neutrophils # 7.7 (1.3-7.7) k/uL Lymphocytes # 1.7 (1.0-4.8) k/uL Monocytes # 0.9 (0-1.0) k/uL Eosinophils # 0.3 (0-0.7) k/uL Basophils # 0.1 (0-0.2) k/uL Hypochromasia Moderate Anisocytosis Slight Microcytosis Slight PT 10.7 (9.0-12.0) sec INR 1.0 (<1.2) APTT 28.3 (22.0-30.0) sec Sodium 134 L (137-145) mmol/L Potassium 4.5 (3.5-5.1) mmol/L Chloride 97 L (98-107) mmol/L Carbon Dioxide 28 (22-30) mmol/L Anion Gap 9 mmol/L BUN 22 H (9-20) mg/dL Creatinine 0.79 (0.66-1.25) mg/dL Est GFR (CKD-EPI)AfAm >90 (>60 ml/min/1.73 sqM) Est GFR (CKD-EPI)NonAf 84 (>60 ml/min/1.73 sqM) Glucose 203 H (74-99) mg/dL Calcium 9.9 (8.4-10.2) mg/dL Total Bilirubin 0.4 (0.2-1.3) mg/dL AST 30 (17-59) U/L ALT 21 (4-49) U/L Alkaline Phosphatase 83 (38-126) U/L Total Protein 7.6 (6.3-8.2) g/dL Albumin 4.5 (3.5-5.0) g/dL Amylase 84 (30-110) U/L Lipase 302 H (23-300) U/L Urine Color Urine Appearance (Clear) Urine pH (5.0-8.0) Ur Specific [place] (1.001-1.035) Urine Protein (Negative) Urine Glucose (UA) (Negative) Urine Ketones (Negative) Urine Blood (Negative) Urine Nitrite (Negative) Urine Bilirubin (Negative) Urine Urobilinogen (<2.0) mg/dL Ur Leukocyte Esterase (Negative) Stool Occult Blood (Negative) 11/04/19 11/04/19 Range/Units 11:30 11:45 WBC (3.8-10.6) k/uL RBC (4.30-5.90) m/uL Hgb (13.0-17.5) gm/dL Hct (39.0-53.0) % MCV (80.0-100.0) fL MCH (25.0-35.0) pg MCHC (31.0-37.0) g/dL RDW (11.5-15.5) % Plt Count (150-450) k/uL Neutrophils % % Lymphocytes % % Monocytes % % Eosinophils % % Basophils % % Neutrophils # (1.3-7.7) k/uL Lymphocytes # (1.0-4.8) k/uL Monocytes # (0-1.0) k/uL Eosinophils # (0-0.7) k/uL Basophils # (0-0.2) k/uL Hypochromasia Anisocytosis Microcytosis PT (9.0-12.0) sec INR (<1.2) APTT (22.0-30.0) sec Sodium (137-145) mmol/L Potassium (3.5-5.1) mmol/L Chloride (98-107) mmol/L Carbon Dioxide (22-30) mmol/L Anion Gap mmol/L BUN (9-20) mg/dL Creatinine (0.66-1.25) mg/dL Est GFR (CKD-EPI)AfAm (>60 ml/min/1.73 sqM) Est GFR (CKD-EPI)NonAf (>60 ml/min/1.73 sqM) Glucose (74-99) mg/dL Calcium (8.4-10.2) mg/dL Total Bilirubin (0.2-1.3) mg/dL AST (17-59) U/L ALT (4-49) U/L Alkaline Phosphatase (38-126) U/L Total Protein (6.3-8.2) g/dL Albumin (3.5-5.0) g/dL Amylase (30-110) U/L Lipase (23-300) U/L Urine Color Light Yellow Urine Appearance Clear (Clear) Urine pH 7.0 (5.0-8.0) Ur Specific [place] 1.006 (1.001-1.035) Urine Protein Trace H (Negative) Urine Glucose (UA) 1+ H (Negative) Urine Ketones Negative (Negative) Urine Blood Negative (Negative) Urine Nitrite Negative (Negative) Urine Bilirubin Negative (Negative) Urine Urobilinogen <2.0 (<2.0) mg/dL Ur Leukocyte Esterase Negative (Negative) Stool Occult Blood Positive (Negative) - Radiology Data Radiology results: report reviewed (Computed tomography scan the brain shows questionable subacute ischemia right parietal lobe. Atrophy.) Disposition Clinical Impression: GI bleed Disposition: ADMITTED IP TO THIS HOSP Is patient prescribed a controlled substance at d/c from ED?: No Referrals: Luis Quesada Jr, DO [Primary Care Provider] - 1-2 days Decision Time: 14:57
[2019-11-04 12:00] LABS: ALT 21 U/L (4-49); AST 30 U/L (17-59); African American GFR (CKD) >90 (>60 ml/min/1.73 sqM); Albumin 4.5 g/dL (3.5-5.0); Alkaline Phosphatase 83 U/L (38-126); Amylase 84 U/L (30-110); Anion Gap 9 mmol/L; Blood Urea Nitrogen 22 mg/dL (9-20); Calcium 9.9 mg/dL (8.4-10.2); Carbon Dioxide 28 mmol/L (22-30); Chloride 97 mmol/L (98-107); Glucose 203 mg/dL (74-99); Non-African American GFR(CKD) 84 (>60 ml/min/1.73 sqM); Potassium 4.5 mmol/L (3.5-5.1); Sodium 134 mmol/L (137-145); Total Bilirubin 0.4 mg/dL (0.2-1.3); Total Protein 7.6 g/dL (6.3-8.2)
[2019-11-04 12:03] LABS: Partial Thromboplastin Time 28.3 sec (22.0-30.0); Prothrombin Time 10.7 sec (9.0-12.0)
[2019-11-04 12:06] LABS: Appearance,Urine Clear (Clear); Bilirubin,Urine Negative (Negative); Blood,Urine Negative (Negative); Color,Urine Light Yellow; Glucose,Urine (UA) 1+ (Negative); Ketones,Urine Negative (Negative); Leukocyte Esterase,Urine Negative (Negative); Nitrite,Urine Negative (Negative); Protein,Urine Trace (Negative); Specific Gravity,Urine 1.006 (1.001-1.035); Urobilinogen,Urine <2.0 mg/dL (<2.0)
[2019-11-04 12:07] LABS: Anisocytosis Slight; Basophils # (A) 0.1 k/uL (0-0.2); Basophils % (A) 1 %; Eosinophils # (A) 0.3 k/uL (0-0.7); Eosinophils % (A) 3 %; HCT 34.5 % (39.0-53.0); HGB 10.5 gm/dL (13.0-17.5); Hypochromasia Moderate; Lymphocytes # (A) 1.7 k/uL (1.0-4.8); Lymphocytes % (A) 16 %; MCH 25.3 pg (25.0-35.0); MCHC 30.6 g/dL (31.0-37.0); Mean Platelet Volume 9.4; Microcytosis Slight; Monocytes # (A) 0.9 k/uL (0-1.0); Monocytes % (A) 8 %; Neutrophils # (A) 7.7 k/uL (1.3-7.7); Neutrophils % (A) 71 %; Platelet Count 296 k/uL (150-450); RBC 4.17 m/uL (4.30-5.90); RDW 18.6 % (11.5-15.5); WBC 10.7 k/uL (3.8-10.6)
[2019-11-04 12:11] LABS: MCV 82.6 fL (80.0-100.0)
--- NOTE | 2019-11-04 13:30 | CT ---
EXAMINATION TYPE: CT brain wo con DATE OF EXAM: 11/04/2019 COMPARISON: CT brain 05/16/2019 HISTORY: dizziness, nausea, inability to walk CT DLP: 1088.4 mGycm Automated exposure control for dose reduction was used. Head CT performed using departmental protocol . FINDINGS: Low-attenuation within loss of otoole-white junction on the right occipital lobe is again not ed. In the right parietal lobe there is some low-attenuation seen on axial image 34, sagittal image 1 2 with loss of otoole-white differentiation. The calvarium is intact. Paranasal sinuses and mastoid air cells are well aerated. There is likely cerumen in the external auditory canals. There are cerebral vascular calcifications. Cortical atrophy is again seen. White matter low-attenuation shows a similar appearance. IMPRESSION: QUESTION INTERVAL SUBACUTE ISCHEMIA RIGHT PARIETAL LOBE. NONSPECIFIC WHITE MATTER DEMYELINATION, AGE RELATED ATROPHY. CONSIDER BRAIN MRI FOLLOW-UP INDICATED
[2019-11-04] MEDS ORDERED: NALOXONE 0.4 MG/ML 1 ML VIAL IV PRN (14:57)
[2019-11-04] MEDS: SODIUM CHLORIDE 0.9% 1,000 ML IV SCH (16:53)
[2019-11-04 17:18] LABS: Glucose,Whole Blood 229 mg/dL (75-99)
[2019-11-04] MEDS ORDERED: SODIUM FERRIC GLUCONAT-SUCROSE 125 MG in SODIUM CHLORIDE 0.9% 100 ML IVPB ONE (17:45)
[2019-11-04] MEDS ORDERED: NITROGLYCERIN SL TABS 0.4 MG TAB SUBLINGUAL PRN (17:46)
[2019-11-04] MEDS ORDERED: ACETAMINOPHEN TAB 500 MG TAB PO PRN (17:46)
[2019-11-04] MEDS ORDERED: FLUTICASONE 50MCG/SPRAY NASAL 16GM EA NOSTRIL PRN (17:46)
[2019-11-04] MEDS: INSULIN ASPART (NovoLOG) 100 UNIT/ML VIAL SQ SCH ×2 (18:16→21:54)
[2019-11-04 21:02] LABS: Glucose,Whole Blood 259 mg/dL (75-99)
[2019-11-04] MEDS: ESCITALOPRAM 10 MG TAB PO SCH (21:54)
[2019-11-04] MEDS: INSULIN DETEMIR (LEVEMIR) 100 UNIT/ML SYR SQ SCH (21:54)
[2019-11-04] MEDS: amLODIPine 5 MG TAB PO SCH ×2 (21:54→21:55)
[2019-11-04] MEDS: metFORMIN 500 MG TAB PO SCH (21:55)
[2019-11-04] MEDS: PRAVASTATIN SODIUM 40 MG TAB PO SCH (21:55)
[2019-11-04] MEDS: MAGNESIUM OXIDE 400 MG TAB PO SCH (21:55)
[2019-11-04] MEDS: MONTELUKAST 10 MG TAB PO SCH (21:55)
--- NOTE | 2019-11-04 22:20 | P.CNNES ---
History of Present Illness Consult date: 11/04/19 Requesting physician: Phillip Banks Reason for Consult: Evaluate for subacute infarct History of Present Illness: Patient is a 84-year-old male presenting to the ER with dizziness. Patient states that he woke up this a.m. and felt dizzy, with nausea, couldn't walk down steps. He felt right foot felt very heavy. He was feeling generalized weakness. EMS was called. Patient did vomit in the bucket. Patient has rectal bleeding since yesterday. Patient has nausea and vomited couple times. He feels dizzy and lightheaded. Symptoms have improved now. CT head showed question interval subacute ischemia right parietal lobe. Nonspecific white matter demyelination, age-related atrophy. Consider brain MRI follow-up as indicated. On my review, there is evidence of bilateral wax impaction, left much worse than right. EKG shows atrial fibrillation with slow ventricular response. Incomplete left bundle branch block. Patient currently not on any anticoagulation. Patient states that he has history of paroxysmal atrial fibrillation for long time. He is not on anticoagulation because he sometimes loses blood. Patient states that he does get dizzy once in a while but never like this. Patient has history of diabetes for the last 30 years, hypertension and hyperlipidemia. Patient denies history of tobacco. Patient has CHF. Patient has history of left arm weakness and speech arrest in January 2016 and was diagnosed with TIA. Patient has history of atrial fibrillation diagnosed at that time. Review of Systems Patient complains of neck pain and shoulders. He is very hard of hearing. Patient is hard of hearing. Denies tinnitus. Patient does appear slightly short of breath. Patient does cough occasionally. Patient has sore in the heel of the right foot for which he has a boot. Past Medical History Past Medical History: Atrial Fibrillation, Coronary Artery Disease (CAD), Cancer, Heart Failure, COPD, CVA/TIA, Diabetes Mellitus, Eye Disorder, GERD/Reflux, GI Bleed, Hyperlipidemia, Hypertension, Myocardial Infarction ([place]), Osteoarthritis ([place]), Pneumonia, Renal Disease, Skin Disorder, Sleep Apnea /CPAP/BIPAP, Vascular Disorder Additional Past Medical History / Comment(s): osteomylitis, CAP, mild exacerbation CHF, tracheopurulent bronchitis, hypoxic respiratory failure, paroxysmal Afib, moderate mitral and tricuspid regurg and severe pulmonary HTN. Other hx: Anemia, blood and iron transfusions, right leg cellulitis, IDDM type II, neuropathy bilateral hands/feet, chronic diabetic wounds, 2013 L renal cancer with surgery - partial nephrectomy/spleenectomy/distal portion of pancreas removed at [facility], TIA, [place] unknown date, BPH, gastritis, small hiatal hernia, past discitis T9-T10, arthritis bilateral hands/back, TARIQ - does not tolerate his CPAP, CKD stage III/hyperkalemia, UTI, sepsis, PVD. pt follows up in wound clinic for diabetic ulcer on R foot, currently in a boot. Last Myocardial Infarction Date:: UNKNOWN History of Any Multi-Drug Resistant Organisms: MRSA Date of last positivie culture/infection: 10/02/19 MDRO Source:: RIGHTfoot Past Surgical History: Coronary Bypass/CABG, Heart Catheterization, Orthopedic S urgery Additional Past Surgical History / Comment(s): Partial L nephrectomy, distal pancreatectomy, splenectomy - at [place], 2000 CABG - 3 vessel, EGD, colonoscopy, deviated septum surgery, skin/oral lesion removals, R carpal tunnel release, bilateral cataract removal, bilateral laser eye surgery for "leakage", Past Anesthesia/Blood Transfusion Reactions: Previous Problems w/ Anesthesia Additional Past Anesthesia/Blood Transfusion Reaction / Comment(s): 'TROUBLE COMING OUT OF ANESTHESIA' - DELUSIONAL. Patient has received blood in past without reaction. Past Psychological History: Anxiety, Depression Additional Psychological History / Comment(s): Pt resides with his spouse. He has a cane and a walker and a glucometer. He no longer drives, his spouse drives and manages his medications. 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 Smoking Status: Never smoker Past Alcohol Use History: None Reported Additional Past Alcohol Use History / Comment(s): Patient states he smoked briefly [id number] and it was only socially. No marijuana or illicit drug use. No alcohol use. Past Drug Use History: None Reported - Past Family History Father Family Medical History: Myocardial Infarction ([place]) Additional Family Medical History / Comment(s): Father of a [place] at the age of 65yrs. Mother Family Medical History: COPD Medications and Allergies Home Medications Medication Instructions Recorded Confirmed Type Montelukast [Singulair] 10 mg PO HS 12/21/14 11/04/19 History Pravastatin Sodium 40 mg PO HS 02/06/11/04/19 History Acetaminophen Tab [Tylenol] 1,000 mg PO BID 10/27/17 06/15/20 History Pantoprazole [Protonix] 40 mg PO DAILY #30 tab 03/21/17 11/04/19 Rx Insulin Aspart [NovoLOG Flexpen] See Protocol SQ AC-TID PRN 11/12/17 11/04/19 History Budesonide-Formot 160-4.5 Mcg 2 puff INHALATION RT-BID PRN 11/13/17 11/04/19 History [Symbicort 160-4.5 Mcg Inhaler] Lisinopril [Zestril] 5 mg PO DAILY 01/26/18 11/04/19 History Cyanocobalamin (Vitamin B-12) 1,000 mcg PO TUFR 01/15/19 11/04/19 History [Vitamin B-12] Insulin Detemir [Levemir Flextouch] 35 units SQ BID 02/10/19 11/04/19 History Magnesium Oxide [Mag-Ox] 400 mg PO HS 02/10/19 11/04/19 History Escitalopram Oxalate [Lexapro] 10 mg PO HS #0 05/23/19 11/04/19 Rx [place]-3 Fatty Acids/Fish Oil [Fish 1 cap PO DAILY 07/16/19 11/04/19 History Oil 1,000 mg Softgel] Insulin Aspart [NovoLOG Flexpen] 12 units SQ TID-W/MEALS 08/29/19 11/04/19 History Fluticasone Nasal [place] [Flonase 2 spray EA NOSTRIL DAILY PRN 11/04/19 11/04/19 History Nasal [place]] Furosemide [Lasix] 80 mg PO DAILY 11/04/19 11/04/19 History Nitroglycerin Sl Tabs [Nitrostat] 0.4 mg SUBLINGUAL Q5M PRN 11/04/19 11/04/19 History Potassium Chloride [Klor-Con 20] 20 meq PO DAILY 11/04/19 11/04/19 History Zinc 50 mg PO DAILY 11/04/19 11/04/19 History amLODIPine [Norvasc] 5 mg PO HS 11/04/19 11/04/19 History metFORMIN HCL 500 mg PO BID 11/04/19 11/04/19 History Allergies Allergy/AdvReac Type Severity Reaction Status Date / Time Penicillins Allergy Unknown Rash/Hives Verified 11/04/19 11:02 atorvastatin calcium Allergy Unknown Verified 11/04/19 11:02 [From Lipitor] ceftriaxone [From Rocephin] Allergy Rash/Hives Verified 11/04/19 11:02 clonazepam [From Klonopin] Allergy Hallucinati Verified 11/04/19 11:02 ons codeine Allergy Hallucinati Verified 11/04/19 11:02 ons haloperidol [From Haldol] Allergy Hallucinati Verified 11/04/19 11:02 ons haloperidol lactate Allergy Hallucinati Verified 11/04/19 11:02 [From Haldol] ons hydromorphone HCl Allergy Hallucinati Verified 11/04/19 11:02 [From Dilaudid] ons methylphenidate HCl Allergy Hallucinati Verified 11/04/19 11:02 [From Ritalin] ons morphine Allergy Hallucinati Verified 11/04/19 11:02 ons propofol Allergy Hallucinati Verified 11/04/19 11:02 ons quetiapine fumarate Allergy Hallucinati Verified 11/04/19 11:02 [From Seroquel] ons Sulfa (Sulfonamide Allergy Unknown Verified 11/04/19 11:02 Antibiotics) vancomycin Allergy Unknown Verified 11/04/19 11:02 ativan AdvReac Unknown Uncoded 09/27/19 22:41 Physical Examination - Vital Signs Vital Signs: Vital Signs Temp Pulse Pulse Resp BP BP Pulse Ox 11/04/19 16:20 97.5 F L 70 18 171/77 95 11/04/19 16:17 98.1 F 61 16 146/70 95 11/04/19 15:27 61 16 146/70 11/04/19 12:03 51 L 18 141/64 11/04/19 11:02 98.1 F 60 18 161/76 95 Intake and Output 11/04/19 11/04/19 11/04/19 06:59 14:59 22:59 Intake Total 237 Balance 237 Intake: Oral 237 Other: # Voids 1 Weight 96.162 kg 96.162 kg On examination patient is an elderly male, in no acute distress. Patient is alert and awake fully oriented. He knows it is October 2019 and that he is in [facility] in [facility]. He knows his date of . Speech and language functions are normal. Attention and concentration fund of knowledge is adequate. On cranial nerve examination pupils are round and reactive to light, visual schaeffer are full, extraocular muscles are intact with no nystagmus. Face is symmetric, tongue protrudes the midline. Palatal elevation and sensation normal hearing is moderately decreased and shoulder sh rug normal. On muscle strength testing there is no pronator drift and the strength appears normal in the arms and legs. Reflexes are diminished and plantars are flat. Sensory touch is equal. No ataxia for [id number] testing. Tone is normal. Bulk of muscles decreased particularly in the hands. No obvious bruit, S1 and S2 audible, abdomen soft nontender. Chest is clear. No peripheral edema.. Results - Laboratory Findings CBC and BMP: 11/04/19 11:05 11/04/19 11:05 Abnormal Lab Findings: Abnormal Labs 11/04/19 11/04/19 11/04/19 11:05 11:05 11:45 WBC 10.7 H RBC 4.17 L Hgb 10.5 L Hct 34.5 L MCHC 30.6 L RDW 18.6 H Sodium 134 L Chloride 97 L BUN 22 H Glucose 203 H POC Glucose (mg/dL) Lipase 302 H Urine Protein Trace H Urine Glucose (UA) 1+ H 11/04/19 17:17 WBC RBC Hgb Hct MCHC RDW Sodium Chloride BUN Glucose POC Glucose (mg/dL) 229 H Lipase Urine Protein Urine Glucose (UA) Assessment and Plan Assessment: * 84-year-old male presenting with an episode of dizziness, vertigo, nausea, bouts of vomiting and generalized weakness. No other associated focal neurological symptoms. Patient does have paroxysmal atrial fibrillation, currently not on anticoagulation. Cerebellar TIA is definitely a concern, although peripheral vestibular dysfunction is also in the differential. Patient does have bilateral impacted cerumen, left more than right, which may be contributing to this episode of dizziness and vertigo. * Paroxysmal atrial fibrillation, currently not on an deconditioned due to below. * Anemia with occult blood positive in the stools. * Diabetes * Hypertension * Hard of hearing Plan: * MRI of the brain to evaluate for acute stroke. * Patient had a 2-D echo on 04/03/2019, which revealed sinus rhythm. Borderline concentric LVH. EF 45-50%. Apical lateral wall motion is hypokinetic. Apical septum wall motion is hypokinetic. Left atrium is mildly dilated. * Patient had a normal carotid Doppler on 02/07/2016. * Patient had a normal hemoglobin A1c 6.0 on 10/11/2019. * Patient has atrial fibrillation, currently not on anticoagulation due to stool occult blood positive. Consider starting anticoagulation when there is no medical contraindication for stroke prevention. * Consider ENT consultation for cerumen disimpaction L>R.
[2019-11-05] MEDS: SODIUM CHLORIDE 0.9% 1,000 ML IV SCH ×2 (04:26→17:13)
[2019-11-05 06:25] LABS: Glucose,Whole Blood 150 mg/dL (75-99)
[2019-11-05 07:00] LABS: Anisocytosis Slight; Basophils # (A) 0.1 k/uL (0-0.2); Basophils % (A) 1 %; Eosinophils # (A) 0.5 k/uL (0-0.7); Eosinophils % (A) 5 %; HCT 34.1 % (39.0-53.0); HGB 10.5 gm/dL (13.0-17.5); Hypochromasia Marked; Lymphocytes # (A) 1.2 k/uL (1.0-4.8); Lymphocytes % (A) 12 %; MCH 26.4 pg (25.0-35.0); MCHC 30.8 g/dL (31.0-37.0); MCV 85.5 fL (80.0-100.0); Mean Platelet Volume 8.4; Monocytes # (A) 0.8 k/uL (0-1.0); Monocytes % (A) 8 %; Neutrophils # (A) 7.3 k/uL (1.3-7.7); Neutrophils % (A) 73 %; Platelet Count 295 k/uL (150-450); RBC 3.98 m/uL (4.30-5.90); WBC 10.1 k/uL (3.8-10.6)
[2019-11-05] MEDS: INSULIN ASPART (NovoLOG) 100 UNIT/ML VIAL SQ SCH ×7 (07:06→21:15)
[2019-11-05] MEDS: PANTOPRAZOLE 40 MG TABLET PO SCH (07:06)
[2019-11-05] MEDS ORDERED: INSULIN ASPART 12 UNIT SQ SCH (07:30)
[2019-11-05] MEDS: SYMBICORT 160-4.5 MCG INHALER INHALATION PRN ×2 (07:47→19:19)
[2019-11-05] MEDS: metFORMIN 500 MG TAB PO SCH ×2 (08:05→21:14)
[2019-11-05] MEDS: POTASSIUM CHLORIDE ER 20 MEQ TAB.ER PO SCH (08:05)
[2019-11-05] MEDS: LISINOPRIL 5 MG TAB PO SCH (08:05)
[2019-11-05] MEDS: FUROSEMIDE 80 MG TAB PO SCH (08:05)
[2019-11-05] MEDS: INSULIN DETEMIR (LEVEMIR) 100 UNIT/ML SYR SQ SCH ×2 (08:06→21:15)
[2019-11-05] MEDS ORDERED: NON FORMULARY DRUG (Omega-3 Fatty Acids/Fish Oil [Fish Oil 1,000 Mg Softgel] 1 CAP) PO SCH (09:00)
[2019-11-05] MEDS ORDERED: NON FORMULARY DRUG (Zinc [Zinc] 50 MG) PO SCH (09:00)
[2019-11-05] MEDS ORDERED: PANTOPRAZOLE 40 MG/10 ML VIAL IV SCH (09:00)
[2019-11-05] MEDS ORDERED: PROCHLORPERAZINE 10 MG TAB PO PRN (09:18)
[2019-11-05] MEDS ORDERED: POLYETHYLENE GLYCOL 3350 17 GM POWD.PACK PO SCH (09:30)
[2019-11-05 10:13] LABS: Poikilocytosis (M) Present
[2019-11-05] MEDS: HYDROCORTISONE 2.5% RECTAL CREAM 30 GM TUBE RECTAL SCH ×2 (11:26→21:14)
[2019-11-05 11:51] LABS: Glucose,Whole Blood 70 mg/dL (75-99)
--- NOTE | 2019-11-05 12:06 | MR ---
EXAMINATION TYPE: MR brain wo con DATE OF EXAM: 11/05/2019 11:16 AM COMPARISON: 2016 HISTORY: TIA/CVA FINDINGS: The ventricles, basal cisterns and sulci overlying the cerebral convexities are moderately enlarged. There is evidence of moderate partially confluent periventricular white matter ischemic demyelination . Remote deep white matter insults are also noted. Small area of increased signal on diffusion-weighted imaging involving the superior cerebellum on the right. Also a tiny focus of increased signal involving the posterior right parietal region. Findings are felt to reflect small areas of acute vascular insult. There is no evidence for midline shift or mass effect. Acute intracranial hemorrhage or extra-axial collection is not evident. The paranasal sinuses and mastoid air cells are well-aerated. IMPRESSION: 1. Age-related atrophic and chronic small vessel ischemic change. 2. Small area of increased signal on diffusion-weighted imaging involving the superior cerebellum on the right. Also a tiny focus of increased signal involving the posterior right parietal region. Find ings are felt to reflect small areas of acute vascular insult.
[2019-11-05 12:47] LABS: Folate, Serum 16.2 ng/mL
--- NOTE | 2019-11-05 13:06 | P.CONS ---
History of Present Illness - Reason for Consult Consult date: 11/05/19 Wound care - History of Present Illness This is an 84-year-old patient known to the wound care center with a nonhealing ulceration to the right calcaneus right great toe medial aspect. Patient had a total contact cast on that was removed prior to his MRI. Patient has had the plantar ulcer on the right heel for 3 weeks prior to his wound appointment. Patient had a bone scan that did show positive osteomalacia is. There was some improvement. He did not make an effort for offloading that is why a total contact cast was utilized. Vascular studies adequate for healing. Review of Systems .Review Of Systems: Constitutional: No fever, no chills, no night sweats. No weight change. No weakness, fatigue or lethargy. No daytime sleepiness. Integumentary:reports wounds, no lesions. No rash or pruritus. No unusual bruising. No change in hair or nails. Past Medical History Past Medical History: Atrial Fibrillation, Coronary Artery Disease (CAD), Cancer, Heart Failure, COPD, CVA/TIA, Diabetes Mellitus, Eye Disorder, GERD/Refl ux, GI Bleed, Hyperlipidemia, Hypertension, Myocardial Infarction ([place]), Osteoarthritis (OA), Pneumonia, Renal Disease, Skin Disorder, Sleep Apnea/CPAP/BIPAP, Vascular Disorder Additional Past Medical History / Comment(s): osteomylitis, CAP, mild exacerbation CHF, tracheopurulent bronchitis, hypoxic respiratory failure, paroxysmal Afib, moderate mitral and tricuspid regurg and severe pulmonary HTN. Other hx: Anemia, blood and iron transfusions, right leg cellulitis, IDDM type II, neuropathy bilateral hands/feet, chronic diabetic wounds, 2013 renal cancer with surgery - partial nephrectomy/spleenectomy/distal portion of pancreas removed at [facility], [place], [place] unknown date, BPH, gastritis, small hiatal hernia, past discitis T9-T10, arthritis bilateral hands/back, TARIQ - does not tolerate his CPAP, CKD stage III/hyperkalemia, UTI, sepsis, PVD. pt follows up in wound clinic for diabetic ulcer on R foot, currently in a boot. Last Myocardial Infarction Date:: UNKNOWN History of Any Multi-Drug Resistant Organisms: MRSA Year Discovered:: 10/02/19 MDRO Source:: RIGHTfoot Past Surgical History: Coronary Bypass/CABG, Heart Catheterization, Orthopedic Surgery Additional Past Surgical History / Comment(s): Partial L nephrectomy, distal pancreatectomy, splenectomy - at [place]2000 CABG - 3 vessel, EGD, colonoscopy, deviated septum surgery, skin/oral lesion removals, R carpal tunnel release, bilateral cataract removal, bilateral laser eye surgery for "leakage", Past Anesthesia/Blood Transfusion Reactions: Previous Problems w/ Anesthesia Additional Past Anesthesia/Blood Transfusion Reaction / Comm: 'TROUBLE COMING OUT OF ANESTHESIA' - DELUSIONAL. Patient has received blood in past without reaction. Past Psychological History: Anxiety, Depression Additional Psychological History / Comment(s): Pt resides with his spouse. He has a cane and a walker and a glucometer. He no longer drives, his spouse drives and manages his medications. 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 Smoking Status: Never smoker Past Alcohol Use History: None Reported Additional Past Alcohol Use History / Comment(s): Patient states he smoked briefly [id number] and it was only socially. No marijuana or illicit drug use. No alcohol use. Past Drug Use History: None Reported - Past Family History Father Family Medical History: Myocardial Infarction ([place]) Additional Family Medical History / Comment(s): Father of a [place] at the age of 65yrs. Mother Family Medical History: COPD Medications and Allergies Home Medications Medication Instructions Recorded Confirmed Type Montelukast [Singulair] 10 mg PO HS 12/21/14 11/04/19 History Pravastatin Sodium 40 mg PO HS 02/07/16 11/04/19 History Acetaminophen Tab [Tylenol] 1,000 mg PO BID 03/17/17 11/04/19 History Pantoprazole [Protonix] 40 mg PO DAILY #30 tab 03/21/17 11/04/19 Rx Insulin Aspart [NovoLOG Flexpen] See Protocol SQ AC-TID PRN 11/12/17 11/04/19 History Budesonide-Formot 160-4.5 Mcg 2 puff INHALATION RT-BID PRN 11/13/17 11/04/19 History [Symbicort 160-4.5 Mcg Inhaler] Lisinopril [Zestril] 5 mg PO DAILY 01/26/18 11/04/19 History Cyanocobalamin (Vitamin B-12) 1,000 mcg PO TUFR 01/15/19 11/04/19 History [Vitamin B-12] Insulin Detemir [Levemir Flextouch] 35 units SQ BID 02/10/19 11/04/19 History Magnesium Oxide [Mag-Ox] 400 mg PO HS 02/10/19 11/04/19 History Escitalopram Oxalate [Lexapro] 10 mg PO HS #0 05/23/19 11/04/19 Rx [place]-3 Fatty Acids/Fish Oil [Fish 1 cap PO DAILY 07/16/19 11/04/19 History Oil 1,000 mg Softgel] Insulin Aspart [NovoLOG Flexpen] 12 units SQ TID-W/MEALS 08/29/19 11/04/19 History Fluticasone Nasal [place] [Flonase 2 spray EA NOSTRIL DAILY PRN 11/04/19 11/04/19 History Nasal [place]] Furosemide [Lasix] 80 mg PO DAILY 11/04/19 11/04/19 History Nitroglycerin Sl Tabs [Nitrostat] 0.4 mg SUBLINGUAL Q5M PRN 11/04/19 11/04/19 History Zinc 50 mg PO DAILY 11/04/19 11/04/19 History amLODIPine [Norvasc] 5 mg PO HS 11/04/19 11/04/19 History metFORMIN HCL 500 mg PO BID 11/04/19 11/04/19 History Allergies Allergy/AdvReac Type Severity Reaction Status Date / Time Penicillins Allergy Unknown Rash/Hives Verified 11/04/19 11:02 atorvastatin calcium Allergy Unknown Verified 11/04/19 11:02 [From Lipitor] ceftriaxone [From Rocephin] Allergy Rash/Hives Verified 11/04/19 11:02 clonazepam [From Klonopin] Allergy Hallucinati Verified 11/04/19 11:02 ons codeine Allergy Hallucinati Verified 11/04/19 11:02 ons haloperidol [From Haldol] Allergy Hallucinati Verified 11/04/19 11:02 ons haloperidol lactate Allergy Hallucinati Verified 11/04/19 11:02 [From Haldol] ons hydromorphone HCl Allergy Hallucinati Verified 11/04/19 11:02 [From Dilaudid] ons methylphenidate HCl Allergy Hallucinati Verified 11/04/19 11:02 [From Ritalin] ons morphine Allergy Hallucinati Verified 11/04/19 11:02 ons propofol Allergy Hallucinati Verified 11/04/19 11:02 ons quetiapine fumarate Allergy Hallucinati Verified 11/04/19 11:02 [From Seroquel] ons Sulfa (Sulfonamide Allergy Unknown Verified 11/04/19 11:02 Antibiotics) vancomycin Allergy Unknown Verified 11/04/19 11:02 ativan AdvReac Unknown Uncoded 09/27/19 22:41 Physical Exam Vitals: Vital Signs Temp Pulse Pulse Resp BP BP Pulse Ox 11/05/19 11:23 97.6 F 50 L 16 149/64 100 11/05/19 08:15 97.3 F L 53 L 18 164/71 100 11/05/19 04:00 97.6 F 52 L 16 141/64 98 11/05/19 00:00 97.7 F 50 L 16 173/74 100 11/04/19 20:00 97.5 F L 58 L 16 184/80 99 11/04/19 16:20 97.5 F L 70 18 171/77 95 11/04/19 16:17 98.1 F 61 16 146/70 95 11/04/19 15:27 61 16 146/70 Intake and Output 11/04/19 11/05/19 11/05/19 22:59 06:59 14:59 Intake Total 237 240 Output Total 400 1000 500 Balance -163 -1000 -260 Intake: Oral 237 240 Output: Urine 400 1000 500 Other: Voiding Method Urinal Urinal Urinal # Voids 1 Weight 96.162 kg 94.6 kg Physical exam: General Appearance: Alert, cooperative, no distress, appears stated age. Skin: Right calcaneus epithelialized, right great toe medial aspect ulceration measuring approximately 0.5 x 0.4 x 0.1 with significant amount of slough noted no granulation seen, no tunneling or undermining, serosanguineous drainage, wound edges attached to the wound base. all other Skin color, texture, tugor normal, no rashes or lesions. Neurologic: Alert oriented x3 Results CBC & Chem 7: 11/05/19 06:17 11/04/19 11:05 Labs: Abnormal Lab Results - Last 24 Hours (Table) 11/04/19 11/04/19 11/05/19 Range/Units 17:17 21:00 06:17 RBC 3.98 L (4.30-5.90) m/uL Hgb 10.5 L (13.0-17.5) gm/dL Hct 34.1 L (39.0-53.0) % MCHC 30.8 L (31.0-37.0) g/dL RDW 18.0 H (11.5-15.5) % POC Glucose (mg/dL) 229 H 259 H (75-99) mg/dL 11/05/19 11/05/19 Range/Units 06:23 11:47 RBC (4.30-5.90) m/uL Hgb (13.0-17.5) gm/dL Hct (39.0-53.0) % MCHC (31.0-37.0) g/dL RDW (11.5-15.5) % POC Glucose (mg/dL) 150 H 70 L (75-99) mg/dL Assessment and Plan (1) Non-pressure chronic ulcer of right heel and midfoot with fat layer exposed Current Visit: Yes Status: Acute Code(s): L97.412 - NON-PRS CHR ULCER OF RIGHT HEEL AND MIDFT W FAT LAYER EXPOS SNOMED Code(s): 103317390 (2) Pressure ulcer of right foot, stage 2 Current Visit: Yes Status: Acute Code(s): L89.892 - PRESSURE ULCER OF OTHER SITE, STAGE 2 SNOMED Code(s): 591483920 (3) Diabetic foot ulcer associated with type 2 diabetes mellitus, with fat layer exposed Current Visit: No Status: Acute Code(s): E11.621 - TYPE 2 DIABETES MELLITUS WITH FOOT ULCER; L97.502 - NON-PRS CHRONIC ULCER OTH PRT UNSP FOOT W FAT LAYER EXPOSED SNOMED Code(s): 5730882653797 Plan: Total contact cast removed. Absorptive silver removed for MRI. Right calcaneus epithelialized honey alginate applied, right great toe medial aspect honey alginate, saline moistened gauze, dry gauze, rolled gauze secured paper tape. Change dressings Monday. Patient will return to the wound care center next Monday at that time we'll discuss if a total contact cast will be reapplied. Thank you kindly for the consultation any questions please contact the wound care center DNP note has been reviewed and discussed with Dr. Mckinney and the impression and plan of care has been directed as dictated.
--- NOTE | 2019-11-05 13:23 | P.HPIM ---
History of Present Illness H&P Date: 11/05/19 This is an 84-year-old gentleman with history of atrial fibrillation, CAD, [place], cancer, CHF, COPD, CVA/TIA, diabetes mellitus, gastroesophageal reflux disease, renal disease, sleep apnea and multiple other medical issues presented to the ER with complaints of rectal bleeding 1 day, dizziness, lightheadedness, nausea, vomiting. Denies chest pain, palpitations or increased shortness of breath. EKG reporting atrial fibrillation with slow ventricular rate, incomplete left bundle branch block, nonspecific T waves. Brain CT showed questionable subacute ischemic right parietal lobe, atrophy. Hemoglobin has remained stable at 10.5, platelets within normal limits. Afebrile, normal WBC. No further emesis or rectal bleeding. MRI ordered. Multiple consults already in place with GI, neurology, oncology/hematology and wound care center. Review of Systems ROS Statement: Those systems with pertinent positive or pertinent negative responses have been documented in the HPI. ROS Other: All systems not noted in ROS Statement are negative. Past Medical History Past Medical History: Atrial Fibrillation, Coronary Artery Disease (CAD), Cancer, Heart Failure, COPD, CVA/TIA, Diabetes Mellitus, Eye Disorder, GERD/Reflux, GI Bleed, Hyperlipidemia, Hypertension, Myocardial Infarction ([place]), Osteoarthritis (OA), Pneumonia, Renal Disease, Skin Disorder, Sleep Apnea/CPAP/BIPAP, Vascular Disorder Additional Past Medical History / Comment(s): osteomylitis, CAP, mild exac erbation CHF, tracheopurulent bronchitis, hypoxic respiratory failure, paroxysmal Afib, moderate mitral and tricuspid regurg and severe pulmonary HTN. Other hx: Anemia, blood and iron transfusions, right leg cellulitis, IDDM type II, neuropathy bilateral hands/feet, chronic diabetic wounds, 2013 renal cancer with surgery - partial nephrectomy/spleenectomy/distal portion of pancreas removed at [facility], [place] unknown date, BPH, gastritis, small hiatal hernia, past discitis T9-T10, arthritis bilateral hands/back, TARIQ - does not tolerate his CPAP, CKD stage III/hyperkalemia, UTI, sepsis, PVD. pt follows up in wound clinic for diabetic ulcer on R foot, currently in a boot. Last Myocardial Infarction Date:: UNKNOWN History of Any Multi-Drug Resistant Organisms: MRSA Date of last positivie culture/infection: 5/13/20 MDRO Source:: RIGHTfoot Past Surgical History: Coronary Bypass/CABG, Heart Catheterization, Orthopedic Surgery Additional Past Surgical History / Comment(s): Partial L nephrectomy, distal pancreatectomy, splenectomy - at , 2000 CABG - 3 vessel, EGD, colonoscopy, deviated septum surgery, skin/oral lesion removals, R carpal tunnel release, bilateral cataract removal, bilateral laser eye surgery for "leakage", Past Anesthesia/Blood Transfusion Reactions: Previous Problems w/ Anesthesia Additional Past Anesthesia/Blood Transfusion Reaction / Comment(s): 'TROUBLE COMING OUT OF ANESTHESIA' - DELUSIONAL. Patient has received blood in past without reaction. Past Psychological History: Anxiety, Depression Additional Psychological History / Comment(s): Pt resides with his spouse. He has a cane and a walker and a glucometer. He no longer drives, his spouse drives and manages his medications. 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 Smoking Status: Never smoker Past Alcohol Use History: None Reported Additional Past Alcohol Use History / Comment(s): Patient states he smoked briefly [id number] and it was only socially. No marijuana or illicit drug use. No alcohol use. Past Drug Use History: None Reported - Past Family History Father Family Medical History: Myocardial Infarction ([place]) Additional Family Medical History / Comment(s): Father of a [place] at the age of 65yrs. Mother Family Medical History: COPD Medications and Allergies Home Medications Medication Instructions Recorded Confirmed Type Montelukast [Singulair] 10 mg PO HS 12/21/14 11/04/19 History Pravastatin Sodium 40 mg PO HS 02/07/16 11/04/19 History Acetaminophen Tab [Tylenol] 1,000 mg PO BID 03/17/17 11/04/19 History Pantoprazole [Protonix] 40 mg PO DAILY #30 tab 03/21/17 11/04/19 Rx Insulin Aspart [NovoLOG Flexpen] See Protocol SQ AC-TID PRN 11/12/17 11/04/19 History Budesonide-Formot 160-4.5 Mcg 2 puff INHALATION RT-BID PRN 11/13/17 11/04/19 History [Symbicort 160-4.5 Mcg Inhaler] Lisinopril [Zestril] 5 mg PO DAILY 01/26/18 11/04/19 History Cyanocobalamin (Vitamin B-12) 1,000 mcg PO TUFR 01/15/19 11/04/19 History [Vitamin B-12] Insulin Detemir [Levemir Flextouch] 35 units SQ BID 02/10/19 11/04/19 History Magnesium Oxide [Mag-Ox] 400 mg PO HS 02/10/19 11/04/19 History Escitalopram Oxalate [Lexapro] 10 mg PO HS #0 05/23/19 11/04/19 Rx [place]-3 Fatty Acids/Fish Oil [Fish 1 cap PO DAILY 07/16/19 11/04/19 History Oil 1,000 mg Softgel] Insulin Aspart [NovoLOG Flexpen] 12 units SQ TID-W/MEALS 08/29/19 11/04/19 History Fluticasone Nasal [place] [Flonase 2 spray EA NOSTRIL DAILY PRN 11/04/19 11/04/19 History Nasal [place]] Furosemide [Lasix] 80 mg PO DAILY 11/04/19 11/04/19 History Nitroglycerin Sl Tabs [Nitrostat] 0.4 mg SUBLINGUAL Q5M PRN 11/04/19 11/04/19 History Zinc 50 mg PO DAILY 11/04/19 11/04/19 History amLODIPine [Norvasc] 5 mg PO HS 11/04/19 11/04/19 History metFORMIN HCL 500 mg PO BID 11/04/19 11/04/19 History Allergies Allergy/AdvReac Type Severity Reaction Status Date / Time Penicillins Allergy Unknown Rash/Hives Verified 11/04/19 11:02 atorvastatin calcium Allergy Unknown Verified 11/04/19 11:02 [From Lipitor] ceftriaxone [From Rocephin] Allergy Rash/Hives Verified 11/04/19 11:02 clonazepam [From Klonopin] Allergy Hallucinati Verified 11/04/19 11:02 ons codeine Allergy Hallucinati Verified 11/04/19 11:02 ons haloperidol [From Haldol] Allergy Hallucinati Verified 11/04/19 11:02 ons haloperidol lactate Allergy Hallucinati Verified 11/04/19 11:02 [From Haldol] ons hydromorphone HCl Allergy Hallucinati Verified 11/04/19 11:02 [From Dilaudid] ons methylphenidate HCl Allergy Hallucinati Verified 11/04/19 11:02 [From Ritalin] ons morphine Allergy Hallucinati Verified 11/04/19 11:02 ons propofol Allergy Hallucinati Verified 11/04/19 11:02 ons quetiapine fumarate Allergy Hallucinati Verified 11/04/19 11:02 [From Seroquel] ons Sulfa (Sulfonamide Allergy Unknown Verified 11/04/19 11:02 Antibiotics) vancomycin Allergy Unknown Verified 11/04/19 11:02 ativan AdvReac Unknown Uncoded 09/27/19 22:41 Physical Exam Vitals: Vital Signs Temp Pulse Pulse Resp BP BP Pulse Ox 11/05/19 11:23 97.6 F 50 L 16 149/64 100 11/05/19 08:15 97.3 F L 53 L 18 164/71 100 11/05/19 04:00 97.6 F 52 L 16 141/64 98 11/05/19 00:00 97.7 F 50 L 16 173/74 100 11/04/19 20:00 97.5 F L 58 L 16 184/80 99 11/04/19 16:20 97.5 F L 70 18 171/77 95 11/04/19 16:17 98.1 F 61 16 146/70 95 11/04/19 15:27 61 16 146/70 11/04/19 12:03 51 L 18 141/64 Intake and Output 11/04/19 11/05/19 11/05/19 22:59 06:59 14:59 Intake Total 237 240 Output Total 400 1000 Balance -163 -1000 240 Intake: Oral 237 240 Output: Urine 400 1000 Other: Voiding Method Urinal Urinal Urinal # Voids 1 Weight 96.162 kg 94.6 kg GENERAL: Sitting up in chair, no acute distress HEENT: PERRLA EOMI, poor dentition NECK: Minimal JVD. No thyroid enlargement. No LNs CARDIOVASCULAR: S1, S2 regular. Systolic murmur at RSB RESPIRATION: Breath sounds diminished in the bases. mild rhonchi, diffuse bibasilar crackles, no wheezes, ABDOMEN: Obese, Soft, mildly distended, nontender . No guarding. no masses palpable. No ascites, No hepatosplenomegaly.Positive bowel sounds. LEGS: Right lower extremity cast PSYCHIATRY: Alert and oriented X3, mood and affect normal. NERVOUS SYSTEM: Cranial N 2-12 grossly normal. Moves all 4 limbs. Diffuse weakness ,No focal deficits. Strength and sensation grossly intact.. Lymphatic system. No LN neck axilla or groin. Results CBC & Chem 7: 11/05/19 06:17 11/04/19 11:05 Labs: Abnormal Lab Results - Last 24 Hours (Table) 11/04/19 11/04/19 11/04/19 Range/Units 11:05 11:05 11:45 WBC 10.7 H (3.8-10.6) k/uL RBC 4.17 L (4.30-5.90) m/uL Hgb 10.5 L (13.0-17.5) gm/dL Hct 34.5 L (39.0-53.0) % MCHC 30.6 L (31.0-37.0) g/dL RDW 18.6 H (11.5-15.5) % Sodium 134 L (137-145) mmol/L Chloride 97 L (98-107) mmol/L BUN 22 H (9-20) mg/dL Glucose 203 H (74-99) mg/dL POC Glucose (mg/dL) (75-99) mg/dL Lipase 302 H (23-300) U/L Urine Protein Trace H (Negative) Urine Glucose (UA) 1+ H (Negative) 11/04/19 11/04/19 11/05/19 Range/Units 17:17 21:00 06:17 WBC (3.8-10.6) k/uL RBC 3.98 L (4.30-5.90) m/uL Hgb 10.5 L (13.0-17.5) gm/dL Hct 34.1 L (39.0-53.0) % MCHC 30.8 L (31.0-37.0) g/dL RDW 18.0 H (11.5-15.5) % Sodium (137-145) mmol/L Chloride (98-107) mmol/L BUN (9-20) mg/dL Glucose (74-99) mg/dL POC Glucose (mg/dL) 229 H 259 H (75-99) mg/dL Lipase (23-300) U/L Urine Protein (Negative) Urine Glucose (UA) (Negative) 11/05/19 Range/Units 06:23 WBC (3.8-10.6) k/uL RBC (4.30-5.90) m/uL Hgb (13.0-17.5) gm/dL Hct (39.0-53.0) % MCHC (31.0-37.0) g/dL RDW (11.5-15.5) % Sodium (137-145) mmol/L Chloride (98-107) mmol/L BUN (9-20) mg/dL Glucose (74-99) mg/dL POC Glucose (mg/dL) 150 H (75-99) mg/dL Lipase (23-300) U/L Urine Protein (Negative) Urine Glucose (UA) (Negative) Thrombosis Risk Factor Assmnt - Choose All That Apply Any of the Below Risk Factors Present?: No Each Risk Factor Represents 3 Points: Age 75 years or older Thrombosis Risk Factor Assessment Total Risk Factor Score: 3 Thrombosis Risk Factor Assessment Level: Moderate Risk Assessment and Plan Assessment: Rectal bleed, suspect hemorrhoids Possible subacute right parietal lobe and right cerebellum CVA COPD Obstructive sleep apnea, noncompliant with CPAP Heart failure with diminished ejection fraction 45-50% Hx of Osteomyelitis with a history of MRSA in the right lower heel Diabetes mellitus type 2 Diabetic neuropathy History of left renal carcinoma status post partial nephrectomy splenectomy is a portion of the pancreas removed at [facility] in 2014 Chronic kidney disease stage III Hypertension by history Noncompliance by history Hyperlipidemia Chronic proximal atrial fibrillation, not on anticoagulation Chronic ischemia with history of GI bleed Chronic non pressure ulcer of right heel and midfoot,with cast, associated with diabetes mellitus [place] virus not detected Plan: Continue on current medication regime ,monitoring and symptomatic treatment. MRI results back, reporting chronic small vessel ischemic change, moderate confluent periventricular white matter ischemic demyelination small area of increased signal on diffusion weighted imaging involving superior cerebellum on the right, tiny focus of increasing renal involving posterior right parietal, suggestive of small acute vascular insult. Further neurology recommendations pending. Hemorrhoids suspected, HC cream ordered. MiraLAX increased. Discharge planning in progress for tomorrow, pending neurology's clearance. The impression and plan of care has been dictated as directed. : I performed a history and examination of this patient, discussed the same with the dictator. I agree with the dictator's note ,documented as a scribe. Any additional findings or plans will be noted.
[2019-11-05 17:00] LABS: Glucose,Whole Blood 123 mg/dL (75-99)
[2019-11-05] MEDS: CYANOCOBALAMIN 500 MCG TAB PO SCH (17:12)
--- NOTE | 2019-11-05 18:37 | P.PN ---
Subjective Progress Note Date: 11/05/19 Patient offers no new complaints. Dizziness, nausea vomiting better. Laying comfortably in the bed. Objective - Vital Signs Vital signs: Vital Signs Temp 97.7 F 11/05/19 15:11 Pulse 53 L 11/05/19 15:11 Resp 16 11/05/19 15:11 BP 149/73 11/05/19 15:11 Pulse Ox 100 11/05/19 15:11 Intake & Output 11/04/19 11/05/19 11/05/19 18:59 06:59 18:59 Intake Total 237 1080 Output Total 1400 1640 Balance 237 -1400 -560 Weight 96.162 kg 94.6 kg Intake: Oral 237 1080 Output: Urine 1400 1640 Other: Voiding Method Urinal Urinal # Voids 1 1 - Exam Patient's mental status, speech and level functions are normal. Muscle strength appears normal. Gait deferred. - Labs CBC & Chem 7: 11/05/19 06:17 11/04/19 11:05 Labs: Abnormal Lab Results - Last 24 Hours (Table) 11/04/19 11/05/19 11/05/19 Range/Units 21:00 06:17 06:23 RBC 3.98 L (4.30-5.90) m/uL Hgb 10.5 L (13.0-17.5) gm/dL Hct 34.1 L (39.0-53.0) % MCHC 30.8 L (31.0-37.0) g/dL RDW 18.0 H (11.5-15.5) % POC Glucose (mg/dL) 259 H 150 H (75-99) mg/dL 11/05/19 11/05/19 Range/Units 11:47 16:44 RBC (4.30-5.90) m/uL Hgb (13.0-17.5) gm/dL Hct (39.0-53.0) % MCHC (31.0-37.0) g/dL RDW (11.5-15.5) % POC Glucose (mg/dL) 70 L 123 H (75-99) mg/dL Assessment and Plan Assessment: * Acute ischemic strokes, involving the right superior cerebellum and posterior right parietal region. Events likely cardioembolic in nature. * Bilateral impacted cerumen, left more than right, which may be contributing to this episode of dizziness and vertigo. * Paroxysmal atrial fibrillation, currently not on an deconditioned due to below. * Anemia with occult blood positive in the stools. * Diabetes * Hypertension * Hard of hearing Plan: * MRI of the brain revealed acute stroke involving the right superior cerebellum in the right posterior parietal region. Highly suggestive of cardioembolism. Suggest starting anticoagulation (Apixaban), if no major medical contraindicat ions. * Patient had a 2-D echo on 04/03/2019, which revealed sinus rhythm. Borderline concentric LVH. EF 45-50%. Apical lateral wall motion is hypokinetic. Apical septum wall motion is hypokinetic. Left atrium is mildly dilated. * Patient had a normal carotid Doppler on 02/07/2016. * Patient had a normal hemoglobin A1c 6.0 on 10/11/2019. * Consider ENT consultation as outpatient for cerumen disimpaction L>R. * Neurologically clear for discharge with the above recommendations.
[2019-11-05 20:03] LABS: Glucose,Whole Blood 236 mg/dL (75-99)
--- NOTE | 2019-11-05 21:07 | P.CONS ---
History of Present Illness - Reason for Consult Consult date: 11/05/19 Constipation, blood per rectum Requesting physician: Luis Quesada Jr - Chief Complaint Dizziness, vomiting - History of Present Illness An 84-year-old male with multiple medical comorbidities including atrial fibrillation not on anticoagulation therapy, coronary artery disease, CHF, COPD, prior CVA/TIA, diabetes mellitus, GERD, chronic kidney disease and TARIQ who presented to the hospital with a constellation of complaints including dizziness, vomiting and blood per rectum. Patient found to be in atrial fibrillation on presentation. Currently hemoglobin has remained stable at 10.5 on repeat draw. He does have a known history of chronic anemia. He also reports chronic constipation. The patient takes MiraLAX daily but reports bowel movements are still with straining every 2-3 days. He seen this in the past. The patient has undergone EGD and colonoscopy in November 2017 with findings of rectal polyp and gastritis which was performed in evaluation of the anemia. This was followed by a video capsule in January 2018 which did show some small bowel ectasias. Patient also had vomiting prior to presentation which is improved. Currently being followed by the hematology service and the neurology service as well. No further vomiting or abdominal pain reported. Laboratory evaluation has remained stable as above. Review of Systems REVIEW OF SYSTEMS: CONSTITUTIONAL: Denies any fevers, chills, weight change or fatigue. CARDIOVASCULAR: Denies any chest pain, palpitations high or low blood pressures, but does have a known history of atrial fibrillation RESPIRATORY: Denies any shortness of breath, hemoptysis or cough. GENITOURINARY: No dysuria or hematuria. MUSCULOSKELETAL: No weakness reported. SKIN: Denies any new rashes or lesions, jaundice or pallor. PSYCHIATRIC: Denies any depression or anxiety. NEUROLOGY: Denies headache, denies any new focal deficits, but did complain of dizziness on presentation. EARS/NOSE/THROAT: No recent hearing change, congestion, nasal discharge or sore throat. EYES: No pain in eyes, discharge or change in vision. GASTROINTESTINAL: As per HPI. Past Medical History Past Medical History: Atrial Fibrillation, Coronary Artery Disease (CAD), Cancer, Heart Failure, COPD, CVA/TIA, Diabetes Mellitus, Eye Disorder, GERD/Reflux, GI Bleed, Hyperlipidemia, Hypertension, Myocardial Infarction ([place]), Osteoarthritis (OA), Pneumonia, Renal Disease, Skin Disorder, Sleep Apnea/CPAP/BIPAP, Vascular Disorder Additional Past Medical History / Comment(s): osteomylitis, CAP, mild exacerbation CHF, tracheopurulent bronchitis, hypoxic respiratory failure, paroxysmal Afib, moderate mitral and tricuspid regurg and severe pulmonary HTN. Other hx: Anemia, blood and iron transfusions, right leg cellulitis, IDDM type II, neuropathy bilateral hands/feet, chronic diabetic wounds, 2013 L renal cancer with surgery - partial nephrectomy/spleenectomy/distal portion of pancreas removed at [facility], T[place], [place] unknown date, BPH, gastritis, small hiatal hernia, past discitis T9-T10, arthritis bilateral hands/back, TARIQ - does not tolerate his CPAP, CKD stage III/hyperkalemia, UTI, sepsis, PVD. pt follows up in wound clinic for diabetic ulcer on R foot, currently in a boot. Last Myocardial Infarction Date:: UNKNOWN History of Any Multi-Drug Resistant Organisms: MRSA Year Discovered:: 10/02/19 MDRO Source:: RIGHTfoot Past Surgical History: Coronary Bypass/CABG, Heart Catheterization, Orthopedic Surgery Additional Past Surgical History / Comment(s): Partial L nephrectomy, distal pancreatectomy, splenectomy - at [place], 2000 CABG - 3 vessel, EGD, colonoscopy, deviated septum surgery, skin/oral lesion removals, R carpal tunnel release, bilateral cataract removal, bilateral laser eye surgery for "leakage", Past Anesthesia/Blood Transfusion Reactions: Previous Problems w/ Anesthesia Additional Past Anesthesia/Blood Transfusion Reaction / Comm: 'TROUBLE COMING OUT OF ANESTHESIA' - DELUSIONAL. Patient has received blood in past without reaction. Past Psychological History: Anxiety, Depression Additional Psychological History / Comment(s): Pt resides with his spouse. He has a cane and a walker and a glucometer. He no longer drives, his spouse drives and manages his medications. 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 Smoking Status: Never smoker Past Alcohol Use History: None Reported Additional Past Alcohol Use History / Comment(s): Patient states he smoked briefly [id number] and it was only socially. No marijuana or illicit drug use. No alcohol use. Past Drug Use History: None Reported - Past Family History Father Family Medical History: Myocardial Infarction ([place]) Additional Family Medical History / Comment(s): Father of a [place] at the age of 65yrs. Mother Family Medical History: COPD Medications and Allergies Home Medications Medication Instructions Recorded Confirmed Type Montelukast [Singulair] 10 mg PO HS 12/21/14 11/04/19 History Pravastatin Sodium 40 mg PO HS 02/07/16 11/04/19 History Acetaminophen Tab [Tylenol] 1,000 mg PO BID 03/17/17 11/04/19 History Pantoprazole [Protonix] 40 mg PO DAILY #30 tab 03/21/17 11/04/19 Rx Insulin Aspart [NovoLOG Flexpen] See Protocol SQ AC-TID PRN 11/12/17 11/04/19 History Budesonide-Formot 160-4.5 Mcg 2 puff INHALATION RT-BID PRN 11/13/17 11/04/19 History [Symbicort 160-4.5 Mcg Inhaler] Lisinopril [Zestril] 5 mg PO DAILY 01/26/18 11/04/19 History Cyanocobalamin (Vitamin B-12) 1,000 mcg PO TUFR 01/15/19 11/04/19 History [Vitamin B-12] Insulin Detemir [Levemir Flextouch] 35 units SQ BID 02/10/19 11/04/19 History Magnesium Oxide [Mag-Ox] 400 mg PO HS 02/10/19 11/04/19 History Escitalopram Oxalate [Lexapro] 10 mg PO HS #0 05/23/19 11/04/19 Rx [place]-3 Fatty Acids/Fish Oil [Fish 1 cap PO DAILY 07/16/19 11/04/19 History Oil 1,000 mg Softgel] Insulin Aspart [NovoLOG Flexpen] 12 units SQ TID-W/MEALS 08/29/19 11/04/19 History Fluticasone Nasal [place] [Flonase 2 spray EA NOSTRIL DAILY PRN 11/04/19 11/04/19 History Nasal [place]] Furosemide [Lasix] 80 mg PO DAILY 11/04/19 11/04/19 History Nitroglycerin Sl Tabs [Nitrostat] 0.4 mg SUBLINGUAL Q5M PRN 11/04/19 11/04/19 History Zinc 50 mg PO DAILY 11/04/19 11/04/19 History amLODIPine [Norvasc] 5 mg PO HS 11/04/19 11/04/19 History metFORMIN HCL 500 mg PO BID 11/04/19 11/04/19 History Allergies Allergy/AdvReac Type Severity Reaction Status Date / Time Penicillins Allergy Unknown Rash/Hives Verified 11/04/19 11:02 atorvastatin calcium Allergy Unknown Verified 11/04/19 11:02 [From Lipitor] ceftriaxone [From Rocephin] Allergy Rash/Hives Verified 11/04/19 11:02 clonazepam [From Klonopin] Allergy Hallucinati Verified 11/04/19 11:02 ons codeine Allergy Hallucinati Verified 11/04/19 11:02 ons haloperidol [From Haldol] Allergy Hallucinati Verified 11/04/19 11:02 ons haloperidol lactate Allergy Hallucinati Verified 11/04/19 11:02 [From Haldol] ons hydromorphone HCl Allergy Hallucinati Verified 11/04/19 11:02 [From Dilaudid] ons methylphenidate HCl Allergy Hallucinati Verified 11/04/19 11:02 [From Ritalin] ons morphine Allergy Hallucinati Verified 11/04/19 11:02 ons propofol Allergy Hallucinati Verified 11/04/19 11:02 ons quetiapine fumarate Allergy Hallucinati Verified 11/04/19 11:02 [From Seroquel] ons Sulfa (Sulfonamide Allergy Unknown Verified 11/04/19 11:02 Antibiotics) vancomycin Allergy Unknown Verified 11/04/19 11:02 ativan AdvReac Unknown Uncoded 09/27/19 22:41 Physical Exam Vitals: Vital Signs Temp Pulse Pulse Resp BP BP Pulse Ox 11/05/19 11:23 97.6 F 50 L 16 149/64 100 11/05/19 08:15 97.3 F L 53 L 18 164/71 100 11/05/19 04:00 97.6 F 52 L 16 141/64 98 11/05/19 00:00 97.7 F 50 L 16 173/74 100 11/04/19 20:00 97.5 F L 58 L 16 184/80 99 11/04/19 16:20 97.5 F L 70 18 171/77 95 11/04/19 16:17 98.1 F 61 16 146/70 95 11/04/19 15:27 61 16 146/70 11/04/19 12:03 51 L 18 141/64 Intake and Output 11/04/19 11/05/19 11/05/19 22:59 06:59 14:59 Intake Total 237 240 Output Total 400 1000 Balance -163 -1000 240 Intake: Oral 237 240 Output: Urine 400 1000 Other: Voiding Method Urinal Urinal Urinal # Voids 1 Weight 96.162 kg 94.6 kg On physical examination, patient appears comfortable in no apparent distress. HEAD: Normocephalic, atraumatic. EYES: No scleral icterus. No conjunctival injection. MOUTH: No lesions, tongue midline. NECK: Trachea midline, no gross abnormalities. CHEST: Clear to auscultation with no wheezing or rhonchi appreciated. HEART: Irregularly irregular. ABDOMEN: Soft, obese. Bowel sounds are positive. No organomegaly. No guarding or rigidity. EXTREMITIES: No pedal edema, ulceration of right foot currently wrapped. SKIN: No rashes, no jaundice. NEUROLOGIC: Alert and oriented x3. Results CBC & Chem 7: 11/05/19 06:17 11/04/19 11:05 Labs: Abnormal Lab Results - Last 24 Hours (Table) 11/04/19 11/04/19 11/04/19 Range/Units 11:05 11:05 11:45 WBC 10.7 H (3.8-10.6) k/uL RBC 4.17 L (4.30-5.90) m/uL Hgb 10.5 L (13.0-17.5) gm/dL Hct 34.5 L (39.0-53.0) % MCHC 30.6 L (31.0-37.0) g/dL RDW 18.6 H (11.5-15.5) % Sodium 134 L (137-145) mmol/L Chloride 97 L (98-107) mmol/L BUN 22 H (9-20) mg/dL Glucose 203 H (74-99) mg/dL POC Glucose (mg/dL) (75-99) mg/dL Lipase 302 H (23-300) U/L Urine Protein Trace H (Negative) Urine Glucose (UA) 1+ H (Negative) 11/04/19 11/04/19 11/05/19 Range/Units 17:17 21:00 06:17 WBC (3.8-10.6) k/uL RBC 3.98 L (4.30-5.90) m/uL Hgb 10.5 L (13.0-17.5) gm/dL Hct 34.1 L (39.0-53.0) % MCHC 30.8 L (31.0-37.0) g/dL RDW 18.0 H (11.5-15.5) % Sodium (137-145) mmol/L Chloride (98-107) mmol/L BUN (9-20) mg/dL Glucose (74-99) mg/dL POC Glucose (mg/dL) 229 H 259 H (75-99) mg/dL Lipase (23-300) U/L Urine Protein (Negative) Urine Glucose (UA) (Negative) 11/05/19 11/05/19 Range/Units 06:23 11:47 WBC (3.8-10.6) k/uL RBC (4.30-5.90) m/uL Hgb (13.0-17.5) gm/dL Hct (39.0-53.0) % MCHC (31.0-37.0) g/dL RDW (11.5-15.5) % Sodium (137-145) mmol/L Chloride (98-107) mmol/L BUN (9-20) mg/dL Glucose (74-99) mg/dL POC Glucose (mg/dL) 150 H 70 L (75-99) mg/dL Lipase (23-300) U/L Urine Protein (Negative) Urine Glucose (UA) (Negative) CT Scan - head: report reviewed Assessment and Plan (1) Blood per rectum Narrative/Plan: 84-year-old with multiple medical comorbidities presenting with multiple complaints including dizziness, vomiting, lightheadedness. Currently being evaluated by the neurology service. He has a known history of chronic anemia and has undergone endoscopic evaluation in 2018 with EGD showing mild gastritis, colonoscopy a small rectal polyp and video capsule angiectasia. He has a stable hemoglobin currently at 10.5. No further bleeding noted. He does suffer from chronic constipation and is on MiraLAX which she takes daily. Current Visit: Yes Status: Acute Code(s): K62.5 - HEMORRHAGE OF ANUS AND RECTUM SNOMED Code(s): 68504619 (2) Chronic constipation Current Visit: Yes Status: Acute Code(s): K59.09 - OTHER CONSTIPATION SNOMED Code(s): 125829889 Plan: Supportive care Okay for diet as tolerated Continue to monitor hemoglobin and hematocrit and transfuse as needed MiraLAX added and patient instructed to take the medicine twice daily Local hemorrhoidal care with Anusol No plan for further endoscopic evaluation at this time Thank you for allowing us to participate in the care of the patient, the GI service will stand by, please call with any questions or concerns
--- NOTE | 2019-11-05 21:11 | P.CONS ---
History of Present Illness - Reason for Consult Consult date: 11/04/19 Symptomatic Anemia Requesting physician: Phillip Banks - Chief Complaint GI Bleeding - History of Present Illness The patient is being refered for evaluation/treatment of anemia. He was found to have intermitently severe microcytic anemia in past few years, had 2 GI evalua tions in last 2 years, lastly done by Dr Campuzano in November 2017, EGD/Colonoscopy failed to identify source of blood loss. He denied melena, hematochezia, hematemesis or gross Hematuria. The patient had distal Pancreatectomy, splenectomy and L nephrectomy by Dr Best at [place] in 2014, no malignancy identifued. He is C/O weakness, SOB and poor exercise intolerance. The patient had tried oral iron supplements in past with extreme poor tolerance due to nausea, vomiting and severe constipation. Since 2017 he has been followed by Dr. Groves for his Iron deficiency anemia and received intermittent Parental Iron infusions In : Hemoglobin 9.9. Recently had amputation toe and treatment pneumonia. He does also have multiple other co-morbidies in which he has been admitted for over the past few years: COPD, Pneumonia, Cardiac Disease. He was suppose to be seen in office today but presented to emergency to emergency instead for signs of GI Bleeding. His Hemoglobin is in safe range. His last parental iron was 09/18/19. GI has been consulted Review of Systems A 14 point review of systems assessed and completed and all negative except HPI Past Medical History Past Medical History: Atrial Fibrillation, Coronary Artery Disease (CAD), Cancer, Heart Failure, COPD, CVA/TIA, Diabetes Mellitus, Eye Disorder, GERD/Reflux, GI Bleed, Hyperlipidemia, Hypertension, Myocardial Infarction ([place]), Osteoarthritis (OA), Pneumonia, Renal Disease, Skin Disorder, Sleep Apnea/CPAP/BIPAP, Vascular Disorder Additional Past Medical History / Comment(s): osteomylitis, CAP, mild exacerbation CHF, tracheopurulent bronchitis, hypoxic respiratory failure, paroxysmal Afib, moderate mitral and tricuspid regurg and severe pulmonary HTN. Other hx: Anemia, blood and iron transfusions, right leg cellulitis, IDDM type II, neuropathy bilateral hands/feet, chronic diabetic wounds, 2013 L renal cancer with surgery - partial nephrectomy/spleenectomy/distal portion of pancreas removed at [facility], T[place], [place] unknown date, BPH, gastritis, small hiatal hernia, past discitis T9-T10, arthritis bilateral hands/back, TARIQ - does not tolerate his CPAP, CKD stage III/hyperkalemia, UTI, sepsis, PVD. pt follows up in wound clinic for diabetic ulcer on R foot, currently in a boot. Last Myocardial Infarction Date:: UNKNOWN History of Any Multi-Drug Resistant Organisms: MRSA Year Discovered:: 10/02/19 MDRO Source:: RIGHTfoot Past Surgical History: Coronary Bypass/CABG, Heart Catheterization, Orthopedic Surgery Additional Past Surgical History / Comment(s): Partial L nephrectomy, distal pancreatectomy, splenectomy - at [place], 2000 CABG - 3 vessel, EGD, colonosc opy, deviated septum surgery, skin/oral lesion removals, R carpal tunnel release, bilateral cataract removal, bilateral laser eye surgery for "leakage", Past Anesthesia/Blood Transfusion Reactions: Previous Problems w/ Anesthesia Additional Past Anesthesia/Blood Transfusion Reaction / Comm: 'TROUBLE COMING OUT OF ANESTHESIA' - DELUSIONAL. Patient has received blood in past without reaction. Past Psychological History: Anxiety, Depression Additional Psychological History / Comment(s): Pt resides with his spouse. He has a cane and a walker and a glucometer. He no longer drives, his spouse luis e kirby and manages his medications. 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 Smoking Status: Never smoker Past Alcohol Use History: None Reported Additional Past Alcohol Use History / Comment(s): Patient states he smoked briefly [id number] and it was only socially. No marijuana or illicit drug use. No alcohol use. Past Drug Use History: None Reported - Past Family History Father Family Medical History: Myocardial Infarction ([place]) Additional Family Medical History / Comment(s): Father of a [place] at the age of 65yrs. Mother Family Medical History: COPD Medications and Allergies Home Medications Medication Instructions Recorded Confirmed Type Montelukast [Singulair] 10 mg PO HS 12/21/14 11/04/19 History Pravastatin Sodium 40 mg PO HS 02/07/16 11/04/19 History Acetaminophen Tab [Tylenol] 1,000 mg PO BID 03/17/17 11/04/19 History Pantoprazole [Protonix] 40 mg PO DAILY #30 tab 03/21/17 11/04/19 Rx Insulin Aspart [NovoLOG Flexpen] See Protocol SQ AC-TID PRN 11/12/17 11/04/19 History Budesonide-Formot 160-4.5 Mcg 2 puff INHALATION RT-BID PRN 11/13/17 11/04/19 History [Symbicort 160-4.5 Mcg Inhaler] Lisinopril [Zestril] 5 mg PO DAILY 01/26/18 11/04/19 History Cyanocobalamin (Vitamin B-12) 1,000 mcg PO TUFR 01/15/19 11/04/19 History [Vitamin B-12] Insulin Detemir [Levemir Flextouch] 35 units SQ BID 02/10/19 11/04/19 History Magnesium Oxide [Mag-Ox] 400 mg PO HS 02/10/19 11/04/19 History Escitalopram Oxalate [Lexapro] 10 mg PO HS #0 05/23/19 11/04/19 Rx [place]-3 Fatty Acids/Fish Oil [Fish 1 cap PO DAILY 07/16/19 11/04/19 History Oil 1,000 mg Softgel] Insulin Aspart [NovoLOG Flexpen] 12 units SQ TID-W/MEALS 08/29/19 11/04/19 History Fluticasone Nasal [place] [Flonase 2 spray EA NOSTRIL DAILY PRN 11/04/19 11/04/19 History Nasal [place]] Furosemide [Lasix] 80 mg PO DAILY 11/04/19 11/04/19 History Nitroglycerin Sl Tabs [Nitrostat] 0.4 mg SUBLINGUAL Q5M PRN 11/04/19 11/04/19 History Potassium Chloride [Klor-Con 20] 20 meq PO DAILY 11/04/19 11/04/19 History Zinc 50 mg PO DAILY 11/04/19 11/04/19 History amLODIPine [Norvasc] 5 mg PO HS 11/04/19 11/04/19 History metFORMIN HCL 500 mg PO BID 11/04/19 11/04/19 History Allergies Allergy/AdvReac Type Severity Reaction Status Date / Time Penicillins Allergy Unknown Rash/Hives Verified 11/04/19 11:02 atorvastatin calcium Allergy Unknown Verified 11/04/19 11:02 [From Lipitor] ceftriaxone [From Rocephin] Allergy Rash/Hives Verified 11/04/19 11:02 clonazepam [From Klonopin] Allergy Hallucinati Verified 11/04/19 11:02 ons codeine Allergy Hallucinati Verified 11/04/19 11:02 ons haloperidol [From Haldol] Allergy Hallucinati Verified 11/04/19 11:02 ons haloperidol lactate Allergy Hallucinati Verified 11/04/19 11:02 [From Haldol] ons hydromorphone HCl Allergy Hallucinati Verified 11/04/19 11:02 [From Dilaudid] ons methylphenidate HCl Allergy Hallucinati Verified 11/04/19 11:02 [From Ritalin] ons morphine Allergy Hallucinati Verified 11/04/19 11:02 ons propofol Allergy Hallucinati Verified 11/04/19 11:02 ons quetiapine fumarate Allergy Hallucinati Verified 11/04/19 11:02 [From Seroquel] ons Sulfa (Sulfonamide Allergy Unknown Verified 11/04/19 11:02 Antibiotics) vancomycin Allergy Unknown Verified 11/04/19 11:02 ativan AdvReac Unknown Uncoded 09/27/19 22:41 Physical Exam Vitals: Vital Signs Temp Pulse Resp BP Pulse Ox 11/04/19 16:17 98.1 F 61 16 146/70 95 11/04/19 15:27 61 16 146/70 11/04/19 12:03 51 L 18 141/64 11/04/19 11:02 98.1 F 60 18 161/76 95 Intake and Output 11/04/19 11/04/19 11/04/19 06:59 14:59 22:59 Other: Weight 96.162 kg 96.162 kg - Constitutional General appearance: cooperative, no acute distress - EENT Eyes: EOMI, dentition normal ENT: hard of hearing - Neck Neck: normal ROM - Respiratory Respiratory: bilateral: diminished - Cardiovascular Rhythm: irregularly irregular - Gastrointestinal General gastrointestinal: normal bowel sounds, soft - Integumentary Integumentary: pale - Neurologic non-focal - Musculoskeletal Musculoskeletal: generalized weakness - Psychiatric Psychiatric: A&O x's 3, appropriate affect Results CBC & Chem 7: 11/04/19 11:05 11/04/19 11:05 Labs: Abnormal Lab Results - Last 24 Hours (Table) 11/04/19 11/04/19 11/04/19 Range/Units 11:05 11:05 11:45 WBC 10.7 H (3.8-10.6) k/uL RBC 4.17 L (4.30-5.90) m/uL Hgb 10.5 L (13.0-17.5) gm/dL Hct 34.5 L (39.0-53.0) % MCHC 30.6 L (31.0-37.0) g/dL RDW 18.6 H (11.5-15.5) % Sodium 134 L (137-145) mmol/L Chloride 97 L (98-107) mmol/L BUN 22 H (9-20) mg/dL Glucose 203 H (74-99) mg/dL Lipase 302 H (23-300) U/L Urine Protein Trace H (Negative) Urine Glucose (UA) 1+ H (Negative) Assessment and Plan Plan: Assessment and Recommendations: 1. Acute on Chronic anemia: - Secondary to GI blood Loss - Chronic Iron Deficiency with intermittent Parental Iron infusions 2. Positive Stool for Occult Blood: - GI has been consulted to further evaluate 3. Elevated Lipase: - GI Following OK to give 2 days of Parental Iron while inpatient with active GI Bleeding. Ferritin increased on last Iron studies likely falsly as after iron infusion.
[2019-11-05] MEDS: MAGNESIUM OXIDE 400 MG TAB PO SCH (21:14)
[2019-11-05] MEDS: ESCITALOPRAM 10 MG TAB PO SCH (21:14)
[2019-11-05] MEDS: PRAVASTATIN SODIUM 40 MG TAB PO SCH (21:14)
[2019-11-05] MEDS: amLODIPine 5 MG TAB PO SCH (21:14)
[2019-11-05] MEDS: MONTELUKAST 10 MG TAB PO SCH (21:14)
[2019-11-05] MEDS: POLYETHYLENE GLYCOL 3350 17 GM POWD.PACK PO SCH (21:15)
--- NOTE | 2019-11-05 21:23 | P.PN ---
Subjective Progress Note Date: 11/05/19 Principal diagnosis: Iron Deficiency Anemia He is feeling better today, awaiting GI input. No SOB, he is fatigued and has dark stools (he states is persistent) Objective - Vital Signs Vital signs: Vital Signs Temp 97.7 F 11/05/19 15:11 Pulse 53 L 11/05/19 15:11 Resp 16 11/05/19 15:11 BP 149/73 11/05/19 15:11 Pulse Ox 98 11/05/19 19:23 Intake & Output 11/05/19 11/05/19 11/06/19 06:59 18:59 06:59 Intake Total 1080 Output Total 1400 1640 Balance -1400 -560 Weight 94.6 kg Intake: Oral 1080 Output: Urine 1400 1640 Other: Voiding Method Urinal Urinal # Voids 1 - Exam - Constitutional General appearance: cooperative, no acute distress - EENT Eyes: EOMI, dentition normal ENT: hard of hearing - Neck Neck: normal ROM - Respiratory Respiratory: bilateral: diminished - Cardiovascular Rhythm: irregularly irregular - Gastrointestinal General gastrointestinal: normal bowel sounds, soft - Integumentary Integumentary: pale - Neurologic non-focal - Musculoskeletal Musculoskeletal: generalized weakness - Psychiatric Psychiatric: A&O x's 3, appropriate affect - Labs CBC & Chem 7: 11/05/19 06:17 11/04/19 11:05 Labs: Abnormal Lab Results - Last 24 Hours (Table) 11/05/19 11/05/19 11/05/19 Range/Units 06:17 06:23 11:47 RBC 3.98 L (4.30-5.90) m/uL Hgb 10.5 L (13.0-17.5) gm/dL Hct 34.1 L (39.0-53.0) % MCHC 30.8 L (31.0-37.0) g/dL RDW 18.0 H (11.5-15.5) % POC Glucose (mg/dL) 150 H 70 L (75-99) mg/dL 11/05/19 11/05/19 Range/Units 16:44 20:02 RBC (4.30-5.90) m/uL Hgb (13.0-17.5) gm/dL Hct (39.0-53.0) % MCHC (31.0-37.0) g/dL RDW (11.5-15.5) % POC Glucose (mg/dL) 123 H 236 H (75-99) mg/dL Assessment and Plan Plan: Assessment and Recommendations: 1. 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 Patient has had intermittent GI bleeding for a long time. Because of the area of his intermittent bleeding this poses increased risk for anticoagulation therapy. With cardiology's recommendations of anticoagulation patient has been educated on the potential risks of both. Will ask GI if anyway to further stop this recurrent intermittent bleeding, and if intervention can be done and anticoagulation is felt absolutely necessary would need very close monitoring and slow infusion. 2. Positive Stool for Occult Blood: - GI 3. Elevated Lipase: - GI Following Plan: - Very High risk for recurrent GI bleeding at baseline which has required intermittent (approx [id number]) parental iron supplementation. Now with atrial fib and potential risk of clot formation. Patiet was educated on risks and benefits of both and he understands the difficult situation. Will await GI to evaluate for any potential intervention and if possible for intervention then would slowly infuse heparin drip (no bolus) over 48 hour minimum while inpatient and serial cbc's. If no s/s bleeding could convert to DOAC and need to monitor closely as outpatient, no greater than every 4 weeks for cbc check. Physician attest: I have completed the full history and physical and agree with above dictation, dictated as a scribe.
[2019-11-05] MEDS: SODIUM FERRIC GLUCONAT-SUCROSE 125 MG in SODIUM CHLORIDE 0.9% 100 ML IVPB SCH (21:36)
[2019-11-06] MEDS: SODIUM CHLORIDE 0.9% 1,000 ML IV SCH ×2 (02:53→10:17)
[2019-11-06 06:35] LABS: Glucose,Whole Blood 66 mg/dL (75-99)
[2019-11-06] MEDS: INSULIN ASPART (NovoLOG) 100 UNIT/ML VIAL SQ SCH ×7 (06:36→20:26)
[2019-11-06] MEDS: PANTOPRAZOLE 40 MG TABLET PO SCH (06:40)
[2019-11-06 06:55] LABS: Glucose,Whole Blood 67 mg/dL (75-99)
[2019-11-06] MEDS ORDERED: DEXTROSE 50% SYRINGE 50 ML IVP ONE (07:06)
[2019-11-06 07:16] LABS: Glucose,Whole Blood 170 mg/dL (75-99)
[2019-11-06 08:12] LABS: Anisocytosis Slight; Basophils % (A) 0 %; Eosinophils # (A) 0.1 k/uL (0-0.7); Eosinophils % (A) 1 %; HCT 37.1 % (39.0-53.0); HGB 11.2 gm/dL (13.0-17.5); Hypochromasia Marked; Lymphocytes % (A) 7 %; MCH 26.3 pg (25.0-35.0); MCHC 30.3 g/dL (31.0-37.0); MCV 86.6 fL (80.0-100.0); Mean Platelet Volume 8.7; Monocytes # (A) 0.5 k/uL (0-1.0); Monocytes % (A) 4 %; Neutrophils # (A) 11.4 k/uL (1.3-7.7); Neutrophils % (A) 87 %; Platelet Count 311 k/uL (150-450); RBC 4.28 m/uL (4.30-5.90); RDW 18.1 % (11.5-15.5); WBC 13.1 k/uL (3.8-10.6)
[2019-11-06] MEDS: SYMBICORT 160-4.5 MCG INHALER INHALATION PRN ×2 (08:27→20:08)
[2019-11-06] MEDS: LISINOPRIL 5 MG TAB PO SCH ×2 (10:16→10:24)
[2019-11-06] MEDS: metFORMIN 500 MG TAB PO SCH ×2 (10:16→10:24)
[2019-11-06] MEDS: FUROSEMIDE 80 MG TAB PO SCH ×2 (10:16→10:24)
[2019-11-06] MEDS: POTASSIUM CHLORIDE ER 20 MEQ TAB.ER PO SCH ×2 (10:16→10:24)
[2019-11-06] MEDS: SODIUM FERRIC GLUCONAT-SUCROSE 125 MG in SODIUM CHLORIDE 0.9% 100 ML IVPB SCH (10:16)
[2019-11-06] MEDS: INSULIN DETEMIR (LEVEMIR) 100 UNIT/ML SYR SQ SCH ×2 (11:24→20:38)
[2019-11-06] MEDS: HYDROCORTISONE 2.5% RECTAL CREAM 30 GM TUBE RECTAL SCH ×2 (11:24→21:02)
[2019-11-06] MEDS: POLYETHYLENE GLYCOL 3350 17 GM POWD.PACK PO SCH ×2 (11:24→21:02)
--- NOTE | 2019-11-06 11:28 | ECHOF ---
Referral Reason:pauses MEASUREMENTS -------- HEIGHT: 177.8 cm WEIGHT: 94.3 kg BP: 139/62 RVIDd: 3.9 cm (< 3.3) IVSd: 1.5 cm (0.6 - 1.1) LVIDd: 4.7 cm (3.9 - 5.3) LVPWd: 1.5 cm (0.6 - 1.1) IVSs: 1.8 cm LVIDs: 3.7 cm LVPWs: 1.6 cm LA Diam: 4.4 cm (2.7 - 3.8) LAESV Index (A-L): 29.20 ml/m Ao Diam: 3.7 cm (2.0 - 3.7) AV Cusp: 2.2 cm (1.5 - 2.6) MV EXCURSION: 18.048 mm (> 18.000) MV EF SLOPE: 37 mm/s (70 - 150) EPSS: 1.0 cm RAP: 5.00 mmHg RVSP: 53.77 mmHg FINDINGS -------- This was a technically adequate study. The left ventricular size is normal. There is moderate concentric left ventricular hypertrophy. O verall left ventricular systolic function is low-normal with, an EF between 50 - 55 %. Basal inferi or LV wall motion is hypokinetic. Basal inferoseptal LV wall motion is hypokinetic. The right ventricle is moderately enlarged. LA is midly dilated 29-33ml/m2. The right atrium is normal in size. Interatrial and interventricular septum intact. There is mild aortic valve sclerosis. There is mild aortic regurgitation. The mitral valve leaflets are mildly thickened. Mild mitral annular calcification present. Mild m itral regurgitation is present. Mild tricuspid regurgitation present. There is moderate pulmonary hypertension. The right ventric ular systolic pressure, as measured by Doppler, is 53.77mmHg. The pulmonic valve was not well visualized. The aortic root size is normal. IVC Not well visulized. There is no pericardial effusion. CONCLUSIONS -------- 1. This was a technically adequate study. 2. The left ventricular size is normal. 3. There is moderate concentric left ventricular hypertrophy. 4. Overall left ventricular systolic function is low-normal with, an EF between 50 - 55 %. 5. Basal inferior LV wall motion is hypokinetic. 6. Basal inferoseptal LV wall motion is hypokinetic. 7. The right ventricle is moderately enlarged. 8. LA is midly dilated 29-33ml/m2. 9. The right atrium is normal in size. 10. Interatrial and interventricular septum intact. 11. There is mild aortic valve sclerosis. 12. There is mild aortic regurgitation. 13. The mitral valve leaflets are mildly thickened. 14. Mild mitral annular calcification present. 15. Mild mitral regurgitation is present. 16. Mild tricuspid regurgitation present. 17. There is moderate pulmonary hypertension. 18. The right ventricular systolic pressure, as measured by Doppler, is 53.77mmHg. 19. The pulmonic valve was not well visualized. 20. The aortic root size is normal. 21. IVC Not well visulized. 22. There is no pericardial effusion. BOND BROKER: Kristi Briceno RDCS
[2019-11-06 11:29] LABS: Glucose,Whole Blood 274 mg/dL (75-99)
--- NOTE | 2019-11-06 12:30 | P.PN ---
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 Recommend initiation of heparin drip while inpatient without bolus and monitor closely while inpatient for 48 hours. Trend serial hemoglobin during this time. GI did evaluate and at this time it does not appear intervention for prevention of GI bleeding is possible. Objective - Vital Signs Vital signs: Vital Signs Temp 98 F 11/06/19 08:00 Pulse 73 11/06/19 08:00 Resp 16 11/06/19 08:00 BP 144/53 11/06/19 08:00 Pulse Ox 100 11/06/19 08:00 Intake & Output 11/05/19 11/06/19 11/06/19 18:59 06:59 18:59 Intake Total 1080 180 Output Total 1640 200 Balance -560 -20 Intake: Oral 1080 180 Output: Urine 1640 200 Other: Voiding Method Urinal Urinal Urinal # Voids 1 # Bowel Movements 1 - Exam - Constitutional General appearance: cooperative, no acute distress - EENT Eyes: EOMI, dentition normal ENT: hard of hearing - Neck Neck: normal ROM - Respiratory Respiratory: bilateral: diminished - Cardiovascular Rhythm: irregularly irregular - Persistent - Gastrointestinal General gastrointestinal: normal bowel sounds, soft - Integumentary Integumentary: pale, BLE 1-2 - Neurologic non-focal - Musculoskeletal Musculoskeletal: generalized weakness - Psychiatric Psychiatric: A&O x's 3, appropriate affect, difficulty in focusing - Labs CBC & Chem 7: 11/06/19 07:38 11/04/19 11:05 Labs: Abnormal Lab Results - Last 24 Hours (Table) 11/05/19 11/05/19 11/06/19 Range/Units 16:44 20:02 06:33 WBC (3.8-10.6) k/uL RBC (4.30-5.90) m/uL Hgb (13.0-17.5) gm/dL Hct (39.0-53.0) % MCHC (31.0-37.0) g/dL RDW (11.5-15.5) % Neutrophils # (1.3-7.7) k/uL POC Glucose (mg/dL) 123 H 236 H 66 L (75-99) mg/dL 11/06/19 11/06/19 11/06/19 Range/Units 06:54 07:13 07:38 WBC 13.1 H (3.8-10.6) k/uL RBC 4.28 L (4.30-5.90) m/uL Hgb 11.2 L (13.0-17.5) gm/dL Hct 37.1 L (39.0-53.0) % MCHC 30.3 L (31.0-37.0) g/dL RDW 18.1 H (11.5-15.5) % Neutrophils # 11.4 H (1.3-7.7) k/uL POC Glucose (mg/dL) 67 L 170 H (75-99) mg/dL 11/06/19 Range/Units 11:28 WBC (3.8-10.6) k/uL RBC (4.30-5.90) m/uL Hgb (13.0-17.5) gm/dL Hct (39.0-53.0) % MCHC (31.0-37.0) g/dL RDW (11.5-15.5) % Neutrophils # (1.3-7.7) k/uL POC Glucose (mg/dL) 274 H (75-99) mg/dL Assessment and Plan Plan: Assessment and Recommendations: 1. 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 Patient has had intermittent GI bleeding for a long time. Because of the area of his intermittent bleeding this poses increased risk for anticoagulation therapy. With cardiology's recommendations of anticoagulation patient has been educated on the potential risks of both. Will ask GI if anyway to further stop this recurrent intermittent bleeding, and if intervention can be done and anticoagulation is felt absolutely necessary would need very close monitoring and slow infusion. - Hemorrhoidal blood most recently 2. Positive Stool for Occult Blood: - GI 3. Elevated Lipase: - GI Following Plan: - Recommendation for recent acute CVA, Atrial Fib and need for anti coagulation - Very High risk for recurrent GI bleeding at baseline which has required i ntermittent (approx [id number]) parental iron supplementation. 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 Patient was educated on risks and benefits of both and he understands the difficult situation. No GI intervention planned. - Recommend slowly infuse heparin drip (no bolus) over 48 hour minimum while inpatient and serial cbc's. If no s/s bleeding could convert to DOAC and monitor very closely. Will require very close monitoring as outpatient, no greater than every 4 weeks for cbc check. - Defer continued PPI and possible Sucarafate to GI? - Discussed with Primary Doctor Dr. Quesada.
--- NOTE | 2019-11-06 12:44 | P.CRDCN ---
History of Present Illness Consult date: 11/06/19 Requesting physician: Luis Quesada Jr Reason for Consult (text): Bradycardia, pauses Chief complaint: Dizziness History of present illness: This is an 84-year-old gentleman who follows with Dr. Lr in the office. He has a known history of hyperlipidemia, family history of premature coronary artery disease, hypertension, paroxysmal atrial fibrillation, sleep apnea, patient does not use CPAP, prior CVA, GERD, sleep apnea, renal disease, diabetes, coronary artery disease with prior bypass surgery at which time the patient underwent a LARSEN to the LAD, radial to the RCA and saphenous vein graft to the OM1, this was performed in 2001. The patient also has a history of anemia, he presented to the hospital on this occasion with symptoms of dizziness as well as some rectal bleeding. According to the patient, he also had some symptoms of nausea and did have some vomiting episodes. A cardiology consultation had been requested because the patient was noted to have some paus es through the night when he was sleeping, bradycardia, and one run of what appears to be nonsustained ventricular tachycardia versus aberrancy. The patient's rhythm strips are reviewed, he was noted to have pauses of up to 2 seconds, while sleeping, he did have 1 run of nonsustained ventricular ta chycardia versus aberrancy. Patient was asymptomatic, this also occurred during time of sleep. CAT scan of the brain was performed which showed a questionable subacute ischemia area in the right parietal lobe. Nonspecific white matter demyelination. His EKG on presentation here showed atrial fibrillation with a slow ventricular response, incomplete left bundle branch block pattern. Nonspecific ST-T wave changes noted in the anterior leads. An MRI of the brain was performed which showed age-related atrophic and chronic small vessel ischemic change. Small area of increased signal on diffusion weighted imaging involving this appears 0 Valium on the right. Findings are felt to reflect sm all areas of acute vascular insult. Blood pressure 138/60 with a heart rate in the 50s, 100% on 2 L of oxygen. White blood cell count 13.1, hemoglobin 11.2, platelet count 211. Sodium 134, potassium 4.5, BUN 22, creatinine 0.7. Stool for occult blood was positive, tran virus not detected. Past Medical History Past Medical History: Atrial Fibrillation, Coronary Artery Disease (CAD), Cancer, Heart Failure, COPD, CVA/TIA, Diabetes Mellitus, Eye Disorder, GERD/Reflux, GI Bleed, Hyperlipidemia, Hypertension, Myocardial Infarction (DC), Osteoarthritis (OA), Pneumonia, Renal Disease, Skin Disorder, Sleep Apnea/CPAP/BIPAP, Vascular Disorder Additional Past Medical History / Comment(s): osteomylitis, CAP, mild exacerbation CHF, tracheopurulent bronchitis, hypoxic respiratory failure, paroxysmal Afib, moderate mitral and tricuspid regurg and severe pulmonary HTN. Other hx: Anemia, blood and iron transfusions, right leg cellulitis, IDDM type II, neuropathy bilateral hands/feet, chronic diabetic wounds, 2013 L renal cancer with surgery - partial nephrectomy/spleenectomy/distal portion of pancreas removed at [facility], TIA, DC unknown date, BPH, gastritis, small hiatal hernia, past discitis T9-T10, arthritis bilateral hands/back, TARIQ - does not tolerate his CPAP, CKD stage III/hyperkalemia, UTI, sepsis, PVD. pt follows up in wound clinic for diabetic ulcer on R foot, currently in a boot. Last Myocardial Infarction Date:: UNKNOWN History of Any Multi-Drug Resistant Organisms: MRSA Date of last positivie culture/infection: 10/02/19 MDRO Source:: RIGHTfoot Past Surgical History: Coronary Bypass/CABG, Heart Catheterization, Orthopedic Surgery Additional Past Surgical History / Comment(s): Partial L nephrectomy, distal pancreatectomy, splenectomy - at [facility], 2000 CABG - 3 vessel, EGD, colonoscopy, deviated septum surgery, skin/oral lesion removals, R carpal tunnel release, bilateral cataract removal, bilateral laser eye surgery for "leakage", Past Anesthesia/Blood Transfusion Reactions: Previous Problems w/ Anesthesia Additional Past Anesthesia/Blood Transfusion Reaction / Comment(s): 'TROUBLE COMING OUT OF ANESTHESIA' - DELUSIONAL. Patient has received blood in past without reaction. Past Psychological History: Anxiety, Depression Additional Psychological History / Comment(s): Pt resides with his spouse. He has a cane and a walker and a glucometer. He no longer drives, his spouse drives and manages his medications. 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 Smoking Status: Never smoker Past Alcohol Use History: None Reported Additional Past Alcohol Use History / Comment(s): Patient states he smoked briefly [id number] and it was only socially. No marijuana or illicit drug use. No alcohol use. Past Drug Use History: None Reported - Past Family History Father Family Medical History: Myocardial Infarction (DC) Additional Family Medical History / Comment(s): Father of a DC at the age of 65yrs. Mother Family Medical History: COPD Medications and Allergies Home Medications Medication Instructions Recorded Confirmed Type Montelukast [Singulair] 10 mg PO HS 12/21/14 11/04/19 History Pravastatin Sodium 40 mg PO HS 02/07/16 11/04/19 History Acetaminophen Tab [Tylenol] 1,000 mg PO BID 03/17/17 11/04/19 History Pantoprazole [Protonix] 40 mg PO DAILY #30 tab 03/21/17 11/04/19 Rx Insulin Aspart [NovoLOG Flexpen] See Protocol SQ AC-TID PRN 11/12/17 11/04/19 History Budesonide-Formot 160-4.5 Mcg 2 puff INHALATION RT-BID PRN 11/13/17 11/04/19 History [Symbicort 160-4.5 Mcg Inhaler] Lisinopril [Zestril] 5 mg PO DAILY 01/26/18 11/04/19 History Cyanocobalamin (Vitamin B-12) 1,000 mcg PO TUFR 01/15/19 11/04/19 History [Vitamin B-12] Insulin Detemir [Levemir Flextouch] 35 units SQ BID 02/10/19 11/04/19 History Magnesium Oxide [Mag-Ox] 400 mg PO HS 02/10/19 11/04/19 History Escitalopram Oxalate [Lexapro] 10 mg PO HS #0 05/23/19 11/04/19 Rx Sawyer-3 Fatty Acids/Fish Oil [Fish 1 cap PO DAILY 07/16/19 11/04/19 History Oil 1,000 mg Softgel] Insulin Aspart [NovoLOG Flexpen] 12 units SQ TID-W/MEALS 08/29/19 11/04/19 History Fluticasone Nasal [place] [Flonase 2 spray EA NOSTRIL DAILY PRN 11/04/19 11/04/19 History Nasal [place]] Furosemide [Lasix] 80 mg PO DAILY 11/04/19 11/04/19 History Nitroglycerin Sl Tabs [Nitrostat] 0.4 mg SUBLINGUAL Q5M PRN 11/04/19 11/04/19 History Zinc 50 mg PO DAILY 11/04/19 11/04/19 History amLODIPine [Norvasc] 5 mg PO HS 11/04/19 11/04/19 History metFORMIN HCL 500 mg PO BID 11/04/19 11/04/19 History Allergies Allergy/AdvReac Type Severity Reaction Status Date / Time Penicillins Allergy Unknown Rash/Hives Verified 11/04/19 11:02 atorvastatin calcium Allergy Unknown Verified 11/04/19 11:02 [From Lipitor] ceftriaxone [From Rocephin] Allergy Rash/Hives Verified 11/04/19 11:02 clonazepam [From Klonopin] Allergy Hallucinati Verified 11/04/19 11:02 ons codeine Allergy Hallucinati Verified 11/04/19 11:02 ons haloperidol [From Haldol] Allergy Hallucinati Verified 11/04/19 11:02 ons haloperidol lactate Allergy Hallucinati Verified 11/04/19 11:02 [From Haldol] ons hydromorphone HCl Allergy Hallucinati Verified 11/04/19 11:02 [From Dilaudid] ons methylphenidate HCl Allergy Hallucinati Verified 11/04/19 11:02 [From Ritalin] ons morphine Allergy Hallucinati Verified 11/04/19 11:02 ons propofol Allergy Hallucinati Verified 11/04/19 11:02 ons quetiapine fumarate Allergy Hallucinati Verified 11/04/19 11:02 [From Seroquel] ons Sulfa (Sulfonamide Allergy Unknown Verified 11/04/19 11:02 Antibiotics) vancomycin Allergy Unknown Verified 11/04/19 11:02 ativan AdvReac Unknown Uncoded 09/27/19 22:41 Physical Exam Vitals: Vital Signs Temp Pulse Pulse Resp BP Pulse Ox 11/06/19 08:00 98 F 73 16 144/53 100 11/06/19 04:00 97.8 F 48 L 16 139/62 100 11/06/19 00:00 97.8 F 49 L 16 126/57 98 11/05/19 20:00 98 F 42 L 16 127/64 98 11/05/19 19:23 98 11/05/19 15:11 97.7 F 53 L 16 149/73 100 Intake and Output 11/05/19 11/06/19 11/06/19 22:59 06:59 14:59 Intake Total 600 180 Output Total 600 200 Balance 0 -20 Intake: Oral 600 180 Output: Urine 600 200 Other: Voiding Method Urinal Urinal Urinal # Voids 1 # Bowel Movements 1 PHYSICAL EXAMINATION: GENERAL: 84-year-old gentleman in no acute distress at the time of my examination HEENT: Head is atraumatic, normocephalic. Pupils equal, round. Sclera anicteric. Conjunctiva are clear. Mucous membranes of the mouth are moist. Neck is supple. There is no elevated jugular venous pressure. No carotid bruit is heard. HEART EXAMINATION: Heart S1 and S2 irregularly irregular a systolic murmur is heard CHEST EXAMINATION: Lungs are clear to auscultation and precussion. No chest wall tenderness is noted on palpation or with deep breathing. ABDOMEN: Soft, nontender. Bowel sounds are heard. No organomegaly noted. EXTREMITIES: 1-2+ peripheral pulses with no evidence of peripheral edema and no calf tenderness noted. Right lower extremity cast has been removed. NEUROLOGIC patient is awake, alert and oriented 3 . . Results 11/06/19 07:38 11/04/19 11:05 CBC 11/06/19 Range/Units 07:38 WBC 13.1 H (3.8-10.6) k/uL RBC 4.28 L (4.30-5.90) m/uL Hgb 11.2 L (13.0-17.5) gm/dL Hct 37.1 L (39.0-53.0) % Plt Count 311 (150-450) k/uL Current Medications Generic Name Dose Route Start Last Admin Trade Name Freq PRN Reason Stop Dose Admin Acetaminophen 1,000 mg 11/04/19 17:46 11/06/19 03:46 Tylenol Tab PO 1,000 mg BID PRN Administration Pain Amlodipine Besylate 5 mg 11/04/19 21:00 11/05/19 21:14 Norvasc PO 5 mg HS [facility] Administration Budesonide/Formoterol Fumarate 2 puff 11/04/19 17:46 11/06/19 08:27 Symbicort 160-4.5 Mcg Inhaler INHALATION 2 puff RT-BID PRN Administration Shortness Of Breath Cyanocobalamin 1,000 mcg 11/05/19 17:46 11/05/19 17:12 Vitamin B-12 PO 1,000 mcg TUFR [facility] Administration Escitalopram Oxalate 10 mg 11/04/19 21:00 11/05/19 21:14 Lexapro PO 10 mg HS [facility] Administration Fluticasone Propionate 2 spray 11/04/19 17:46 Flonase Nasal [place] EA NOSTRIL DAILY PRN Allergy Symptoms Furosemide 80 mg 11/05/19 09:00 11/06/19 10:24 Lasix PO 80 mg DAILY [facility] Administration Hydrocortisone 1 applic 11/05/19 09:30 11/06/19 11:24 Proctosol-Hc 2.5% RECTAL 1 applic BID [facility] Administration Sodium Chloride 1,000 mls @ 75 mls/hr 11/04/19 15:00 11/06/19 10:17 Saline 0.9% IV 75 mls/hr .[id number] [facility] Administration Insulin Aspart 0 unit 11/04/19 21:00 11/06/19 06:36 Novolog SQ Not Given ACHS [facility] Protocol Insulin Aspart 12 unit 11/04/19 18:01 11/06/19 06:36 Novolog SQ Not Given TID-W/MEALS [facility] Insulin Detemir 35 unit 11/05/19 21:00 11/06/19 11:24 Levemir SQ 35 unit BID [facility] Administration Lisinopril 5 mg 11/05/19 09:00 11/06/19 10:24 Zestril PO 5 mg DAILY [facility] Administration Magnesium Oxide 400 mg 11/04/19 21:00 11/05/19 21:14 Mag-Ox PO 400 mg HS [facility] Administration Metformin HCl 500 mg 11/04/19 21:00 11/06/19 10:24 Glucophage PO 500 mg BID [facility] Administration Montelukast Sodium 10 mg 11/04/19 21:00 11/05/19 21:14 Singulair PO 10 mg HS [facility] Administration Naloxone HCl 0.2 mg 11/04/19 14:57 Narcan IV Q2M PRN Opioid Reversal Nitroglycerin 0.4 mg 11/04/19 17:46 Nitrostat SUBLINGUAL Q5M PRN Chest Pain Pantoprazole Sodium 40 mg 11/05/19 07:30 11/06/19 06:40 Protonix PO 40 mg DAILY@0730 [facility] Administration Polyethylene Glycol 17 gm 11/05/19 21:00 11/06/19 11:24 Miralax PO 17 gm BID [facility] Administration Potassium Chloride 20 meq 11/05/19 09:00 11/06/19 10:24 K-Dur 20 PO 20 meq DAILY [facility] Administration Pravastatin Sodium 40 mg 11/04/19 21:00 11/05/19 21:14 Pravachol PO 40 mg HS [facility] Administration Prochlorperazine Maleate 10 mg 11/05/19 09:18 11/05/19 11:26 Compazine PO 10 mg Q6HR PRN Administration Nausea And Vomiting Intake and Output 11/05/19 11/06/19 11/06/19 22:59 06:59 14:59 Intake Total 600 180 Output Total 600 200 Balance 0 -20 Intake: Oral 600 180 Output: Urine 600 200 Other: Voiding Method Urinal Urinal Urinal # Voids 1 # Bowel Movements 1 11/06/19 07:38 11/04/19 11:05 EKG Interpretations (text) EKG shows atrial fibrillation with a slow ventricular response and complete bundle branch block pattern and nonspecific ST-T wave changes Assessment and Plan Plan: Assessment and plan #1 symptoms of dizziness with associated rectal bleeding, possible hemorrhoids. #2 persistent atrial fibrillation, not on anticoagulation because of increased risk of bleeding #3 2 second pauses, occurring during times of sleep, likely secondary to sleep apnea #4 run of nonsustained ventricular tachycardia #5Coronary artery disease with prior bypass surgery #6 sleep apnea, noncompliant with CPAP #7 history of CVA/TIA #8 diabetes #9 Hypertension #10 hyperlipidemia Plan We will continue to monitor the patient, the patient said bradycardia and short pauses or likely secondary to his sleep apnea, we will continue to monitor for any significant tachycardia or bradycardia arrhythmias. Obtain echocardiogram with Doppler study. DNP note has been reviewed, I agree with a documented findings and plan of care. Patient was seen and examined.
--- NOTE | 2019-11-06 12:58 | CDI ---
Documentation Clarification Form Date: 11/06/2019 12:49:58 PM From: Katarina Jimenez RN, CCDS Admit Date: 11/04/2019 02:57:00 PM Patient Name: Quincy Carson Visit Number: [id number] ATTENTION: The Clinical Documentation Specialists (CDI) and [facility] Coding Staff appreciate your assistance in clarifying documentation. Please respond to the clarification below the line at the bottom and electronically sign. The CDI & [facility] Coding staff will review the response and follow-up if needed. Please note: Queries are made part of the Legal Health Record. If you have any questions, please contact the author of this message via ITS. Dr. Luis Quesada CHF is documented in the H&P and progress notes and requires further specificity. History/Risk Factors: CAD, [place], CHF, DM, CKD, anemia Clinical Indicators: 11/03 Neurology Consult: "Patient has CHF." 11/04 H&P: "mild exacerbation CHF." 11/03 1102 Admission VS/Pulse OX: Temp 98.1, HR 60, RR 18, B/P 161/76, spo2 95% 2l nc 11/05 Echocardiogram Results: EF 50-55%. Moderate concentric LVH, Basal inferior and basal inferoseptal LV wall motion hypokinesis, moderate pulmonary HTN Treatment: Lasix 80 mg IVP QD In your professional opinion, can you please clarify the acuity and type of CHF if known? Systolic Heart Failure: Acute Chronic Acute on Chronic Diastolic Heart Failure: Acute Chronic Acute on Chronic Systolic & Diastolic Heart Failure: Acute Chronic Acute on Chronic Heart Failure Unable to Determine Other, please specify (Last Revision: August 2017) diastolic heart failure acute on chronic with normal ejection fraction/noncompliance untreated sleep apnea MTDD
--- NOTE | 2019-11-06 15:46 | P.PN ---
Subjective Progress Note Date: 11/06/19 This is an 84-year-old gentleman with history of atrial fibrillation, CAD, [place], cancer, CHF, COPD, CVA/TIA, diabetes mellitus, gastroesophageal reflux disease, renal disease, sleep apnea and multiple other medical issues presented to the ER with complaints of rectal bleeding 1 day, dizziness, lightheadedness, nausea, vomiting. Denies chest pain, palpitations or increased shortness of breath. EKG reporting atrial fibrillation with slow ventricular rate, incomplete left bundle branch block, nonspecific T waves. Brain CT showed questionable subacute ischemic right parietal lobe, atrophy. Hemoglobin has remained stable at 10.5, platelets within normal limits. Afebrile, normal WBC. No further emesis or rectal bleeding. MRI ordered. Multiple consults already in place with GI, neurology, oncology/hematology and wound care center. 11/06/2019 attempting to bear weight on nonweightbearing extremity, requires reminders. Telemetry reporting bradycardia with heart rate down into the 30s ,pauses up to 2.4 seconds, run of nonsustained V. tach. Discussed his CPAP machine use at home, patient states he never received the machine. Hemoglobin stable at 11.2 with no bleeding reported. Denies lightheadedness, dizziness or focal deficits. Denies chest pain, palpitations or shortness of breath. Objective - Vital Signs Vital signs: Vital Signs Temp 97.8 F 11/06/19 04:00 Pulse 48 L 11/06/19 04:00 Resp 16 11/06/19 04:00 BP 139/62 11/06/19 04:00 Pulse Ox 100 11/06/19 04:00 Intake & Output 11/05/19 11/06/19 11/06/19 18:59 06:59 18:59 Intake Total 1080 Output Total 1640 Balance -560 Intake: Oral 1080 Output: Urine 1640 Other: Voiding Method Urinal Urinal # Voids 1 - Exam GENERAL: Sitting up in chair, no acute distress HEENT: PERRLA EOMI, poor dentition NECK: Minimal JVD. No thyroid enlargement. No LNs CARDIOVASCULAR: S1, S2 regular. Systolic murmur at RSB RESPIRATION: Breath sounds diminished in the bases. mild rhonchi, diffuse bibasilar crackles, no wheezes, ABDOMEN: Obese, Soft, mildly distended, nontender . No guarding. no masses palpable. Positive bowel sounds. LEGS: Right lower extremity dressing/boot PSYCHIATRY: Alert and oriented X3, mood and affect normal. NERVOUS SYSTEM: Cranial N 2-12 grossly normal. Moves all 4 limbs. Diffuse weakness ,No focal deficits. Strength and sensation grossly intact.. Lymphatic system. No LN neck axilla or groin. - Labs CBC & Chem 7: 11/06/19 07:38 11/04/19 11:05 Labs: Abnormal Lab Results - Last 24 Hours (Table) 11/05/19 11/05/19 11/05/19 Range/Units 06:17 11:47 16:44 WBC (3.8-10.6) k/uL RBC 3.98 L (4.30-5.90) m/uL Hgb 10.5 L (13.0-17.5) gm/dL Hct 34.1 L (39.0-53.0) % MCHC 30.8 L (31.0-37.0) g/dL RDW 18.0 H (11.5-15.5) % Neutrophils # (1.3-7.7) k/uL POC Glucose (mg/dL) 70 L 123 H (75-99) mg/dL 11/05/19 11/06/19 11/06/19 Range/Units 20:02 06:33 06:54 WBC (3.8-10.6) k/uL RBC (4.30-5.90) m/uL Hgb (13.0-17.5) gm/dL Hct (39.0-53.0) % MCHC (31.0-37.0) g/dL RDW (11.5-15.5) % Neutrophils # (1.3-7.7) k/uL POC Glucose (mg/dL) 236 H 66 L 67 L (75-99) mg/dL 11/06/19 11/06/19 Range/Units 07:13 07:38 WBC 13.1 H (3.8-10.6) k/uL RBC 4.28 L (4.30-5.90) m/uL Hgb 11.2 L (13.0-17.5) gm/dL Hct 37.1 L (39.0-53.0) % MCHC 30.3 L (31.0-37.0) g/dL RDW 18.1 H (11.5-15.5) % Neutrophils # 11.4 H (1.3-7.7) k/uL POC Glucose (mg/dL) 170 H (75-99) mg/dL Assessment and Plan Assessment: Acute blood loss anemia ,Rectal bleed, suspect hemorrhoids, hemoglobin stable Acute right parietal lobe and right cerebellum CVA Pauses while sleeping, suspect related to sleep apnea asymptomatic nonsustained V. 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 Cardiology consulted , recommending continue monitoring with possible event monitor at discharge .echo Doppler ordered .anticoagulation as per cardiology/neurology. Recommending subacute rehab at discharge, patient currently indecisive. The impression and plan of care has been dictated as directed. : I performed a history and examination of this patient, discussed the same with the dictator. I agree with the dictator's note ,documented as a scribe. Any additional findings or plans will be noted.
[2019-11-06 16:25] LABS: Glucose,Whole Blood 131 mg/dL (75-99)
--- NOTE | 2019-11-06 18:24 | P.PN ---
Subjective Progress Note Date: 11/06/19 Patient offers no new complaints. Dizziness, nausea vomiting better. Sitting comfortably in the bed, having dinner. Objective - Vital Signs Vital signs: Vital Signs Temp 98.1 F 11/06/19 16:00 Pulse 57 L 11/06/19 16:00 Resp 16 11/06/19 16:00 BP 169/63 11/06/19 16:00 Pulse Ox 97 11/06/19 16:00 Intake & Output 11/05/19 11/06/19 11/06/19 18:59 06:59 18:59 Intake Total 1080 654 Output Total 1640 1770 Balance -560 -1116 Intake: Oral 1080 654 Output: Urine 1640 1770 Other: Voiding Method Urinal Urinal Urinal # Voids 1 # Bowel Movements 1 - Exam Patient's mental status, speech and level functions are normal. Muscle strength appears normal. Gait deferred. - Labs CBC & Chem 7: 11/06/19 07:38 11/04/19 11:05 Labs: Abnormal Lab Results - Last 24 Hours (Table) 11/05/19 11/06/19 11/06/19 Range/Units 20:02 06:33 06:54 WBC (3.8-10.6) k/uL RBC (4.30-5.90) m/uL Hgb (13.0-17.5) gm/dL Hct (39.0-53.0) % MCHC (31.0-37.0) g/dL RDW (11.5-15.5) % Neutrophils # (1.3-7.7) k/uL POC Glucose (mg/dL) 236 H 66 L 67 L (75-99) mg/dL 11/06/19 11/06/19 11/06/19 Range/Units 07:13 07:38 11:28 WBC 13.1 H (3.8-10.6) k/uL RBC 4.28 L (4.30-5.90) m/uL Hgb 11.2 L (13.0-17.5) gm/dL Hct 37.1 L (39.0-53.0) % MCHC 30.3 L (31.0-37.0) g/dL RDW 18.1 H (11.5-15.5) % Neutrophils # 11.4 H (1.3-7.7) k/uL POC Glucose (mg/dL) 170 H 274 H (75-99) mg/dL 11/06/19 Range/Units 16:23 WBC (3.8-10.6) k/uL RBC (4.30-5.90) m/uL Hgb (13.0-17.5) gm/dL Hct (39.0-53.0) % MCHC (31.0-37.0) g/dL RDW (11.5-15.5) % Neutrophils # (1.3-7.7) k/uL POC Glucose (mg/dL) 131 H (75-99) mg/dL Assessment and Plan Assessment: * Acute ischemic strokes, involving the right superior cerebellum and posterior right parietal region. Events likely cardioembolic in nature. * Bilateral impacted cerumen, left more than right, which may be contributing to this episode of dizziness and vertigo. * Paroxysmal atrial fibrillation, currently not on anticoagulation due to below. 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 Patient's occult blood positive in the stools. * Diabetes * Hypertension * Hard of hearing Plan: * MRI of the brain revealed acute stroke involving the right superior cerebellum in the right posterior parietal region. Highly suggestive of cardioembolism. Suggest starting anticoagulation, if no major medical contraindications. Patient however appears to be high risk for anticoagulation because of small bowel AVMs. Report of ANGUS Silva and Dr. Noble reviewed. Patient probably will be started on heparin drip with no bolus. * Patient had a 2-D echo on 04/03/2019, which revealed sinus rhythm. Borderline concentric LVH. EF 45-50%. Apical lateral wall motion is hypokinetic. Apical septum wall motion is hypokinetic. Left atrium is mildly dilated. * Patient had a normal carotid Doppler on 02/07/2016. * Hemoglobin A1c 6.0 on 10/11/2019.
[2019-11-06 20:25] LABS: Glucose,Whole Blood 65 mg/dL (75-99)
[2019-11-06 20:48] LABS: Glucose,Whole Blood 81 mg/dL (75-99)
[2019-11-06] MEDS: PRAVASTATIN SODIUM 40 MG TAB PO SCH (21:02)
[2019-11-06] MEDS: MONTELUKAST 10 MG TAB PO SCH (21:02)
[2019-11-06] MEDS: ESCITALOPRAM 10 MG TAB PO SCH (21:02)
[2019-11-06] MEDS: MAGNESIUM OXIDE 400 MG TAB PO SCH (21:02)
[2019-11-06] MEDS: amLODIPine 5 MG TAB PO SCH (21:02)
[2019-11-07 06:20] LABS: Glucose,Whole Blood 204 mg/dL (75-99)
[2019-11-07] MEDS: PANTOPRAZOLE 40 MG TABLET PO SCH (07:14)
[2019-11-07] MEDS: INSULIN ASPART (NovoLOG) 100 UNIT/ML VIAL SQ SCH ×7 (07:15→21:09)
[2019-11-07] MEDS: SYMBICORT 160-4.5 MCG INHALER INHALATION PRN ×2 (07:59→19:12)
[2019-11-07] MEDS: metFORMIN 500 MG TAB PO SCH ×2 (08:59→21:08)
[2019-11-07] MEDS: POLYETHYLENE GLYCOL 3350 17 GM POWD.PACK PO SCH ×2 (09:00→21:08)
[2019-11-07] MEDS: HYDROCORTISONE 2.5% RECTAL CREAM 30 GM TUBE RECTAL SCH ×2 (09:02→21:14)
[2019-11-07] MEDS: INSULIN DETEMIR (LEVEMIR) 100 UNIT/ML SYR SQ SCH ×2 (09:02→21:10)
--- NOTE | 2019-11-07 11:25 | PN ---
PROGRESS NOTE Mr. Carson is an 84-year-old male who has a history of CVA, history of paroxysmal atrial fibrillation, obstructive sleep apnea, coronary artery disease and prior coronary bypass grafting who presented with dizziness and rectal bleeding. He is feeling better overall on the monitor. He is in atrial fibrillation. He has no chest pain, no further wide-complex tachycardia. He has no significant pauses. He denies any dizziness or nausea. He had an echocardiogram performed yesterday that showed an ejection fraction of 50% to 55% with mild mitral and tricuspid regurgitation with moderate pulmonary hypertension. He continues to be at this time on amlodipine 5 mg daily, furosemide 80 mg daily, insulin, metformin, Zestril 5 mg daily, pravastatin, and Protonix. PHYSICAL EXAMINATION: Blood pressure 146/60 with a heart rate in the high 50s and 60s. LUNGS: Clear. HEART: S1, S2. No S3 with systolic murmur, no diastolic murmur, no rub. ABDOMEN: Soft, obese, nontender. EXTREMITIES: Trace edema. LAB DATA: From yesterday revealed a hemoglobin of 11.2. IMPRESSION: 1. Atrial fibrillation, rate controlled. No evidence of significant pauses, not anticoagulated because of increased risk of bleeding. 2. Symptoms of dizziness, resolved. 3. History of coronary artery disease. No evidence of acute ischemic event. 4. History of CVA. 5. Diabetes. 6. Hypertension. 7. Hyperlipidemia. RECOMMENDATION: From the cardiac standpoint, will continue present therapy. I see no evidence of active cardiac problems at this time. Patient tells me he may be discharged to [facility]. Will continue present therapy and follow up as an outpatient. MMODL / IJN: [id number] /
[2019-11-07 12:02] LABS: Glucose,Whole Blood 155 mg/dL (75-99)
[2019-11-07 13:32] VITALS: BMI 30.6
[2019-11-07] MEDS ORDERED: HEPARIN SODIUM,PORCINE 5,000 UNIT/ML 1 ML VIAL IV PRN (13:40)
[2019-11-07] MEDS ORDERED: HEPARIN SOD,PORK IN 0.45% NACL 25,000 UNIT in 0.45% NACL 1 250ML.BAG IV SCH (13:45)
--- NOTE | 2019-11-07 14:26 | P.PN ---
Subjective Progress Note Date: 11/07/19 This is an 84-year-old gentleman with history of atrial fibrillation, CAD, [place], cancer, CHF, COPD, CVA/TIA, diabetes mellitus, gastroesophageal reflux disease, renal disease, sleep apnea and multiple other medical issues presented to the ER with complaints of rectal bleeding 1 day, dizziness, lightheadedness, nausea, vomiting. Denies chest pain, palpitations or increased shortness of breath. EKG reporting atrial fibrillation with slow ventricular rate, incomplete left bundle branch block, nonspecific T waves. Brain CT showed questionable subacute ischemic right parietal lobe, atrophy. Hemoglobin has remained stable at 10.5, platelets within normal limits. Afebrile, normal WBC. No further emesis or rectal bleeding. MRI ordered. Multiple consults already in place with GI, neurology, oncology/hematology and wound care center. 11/06/2019 attempting to bear weight on nonweightbearing extremity, requires reminders. Telemetry reporting bradycardia with heart rate down into the 30s ,pauses up to 2.4 seconds, run of nonsustained V. tach. Discussed his CPAP machine use at home, patient states he never received the machine. Hemoglobin stable at 11.2 with no bleeding reported. Denies lightheadedness, dizziness or focal deficits. Denies chest pain, palpitations or shortness of breath. 11/07/19 remains bradycardic with heart rates down into the high 30s. Telemetry at this time reporting no further arrhythmias or pauses. Neurology recommending anticoagulation secondary to acute CVA. Discussed with both GI and cardiology, hematology's recommendations of slow heparin drip before converting to DOAC. Patient had previously been off of anticoagulation secondary to high risk relate d to falls as per cardiology. GI cleared patient for anticoagulation. Objective - Vital Signs Vital signs: Vital Signs Temp 98 F 11/07/19 11:33 Pulse 51 L 11/07/19 11:33 Resp 16 11/07/19 11:33 BP 135/61 11/07/19 11:33 Pulse Ox 100 11/07/19 11:33 Intake & Output 11/06/19 11/07/19 11/07/19 18:59 06:59 18:59 Intake Total 891 450 Output Total 1770 200 Balance -879 250 Weight 96.9 kg Intake: Oral 891 450 Output: Urine 1770 200 Other: Voiding Method Urinal Urinal Urinal # Voids 1 # Bowel Movements 1 - Exam GENERAL: Sitting up in chair, no acute distress HEENT: PERRLA EOMI, poor dentition NECK: Minimal JVD. No thyroid enlargement. No LNs CARDIOVASCULAR: S1, S2 regular. Systolic murmur at RSB RESPIRATION: Breath sounds diminished in the bases. mild rhonchi, diffuse bibasilar crackles, no wheezes, ABDOMEN: Obese, Soft, mildly distended, nontender . No guarding. no masses palpable. Positive bowel sounds. LEGS: Right lower extremity dressing PSYCHIATRY: Alert and oriented X3, mood and affect normal. NERVOUS SYSTEM: Cranial N 2-12 grossly normal. Moves all 4 limbs. Diffuse weakness ,No focal deficits. Strength and sensation grossly intact.. Lymphatic system. No LN neck axilla or groin. - Labs CBC & Chem 7: 11/06/19 07:38 11/04/19 11:05 Labs: Abnormal Lab Results - Last 24 Hours (Table) 11/05/19 11/06/19 11/06/19 Range/Units 06:17 16:23 20:24 POC Glucose (mg/dL) 131 H 65 L (75-99) mg/dL Methylmalonic Acid 0.59 H (<0.40) umol/L 11/07/19 11/07/19 Range/Units 06:18 12:01 POC Glucose (mg/dL) 204 H 155 H (75-99) mg/dL Methylmalonic Acid (<0.40) umol/L Assessment and Plan Assessment: Acute blood loss anemia ,Rectal bleed, suspect hemorrhoids, hemoglobin stable Acute right parietal lobe and right cerebellum CVA Pauses while sleeping, suspect related to sleep apnea asymptomatic nonsustained V. 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 Diabetes mellitus type 2 Diabetic neuropathy History of left renal carcinoma status post partial nephrectomy splenectomy is a portion of the pancreas removed at [facility] in 2014 Chronic kidney disease stage III Hypertension Noncompliance by history Hyperlipidemia Chronic proximal atrial fibrillation, not on anticoagulation Chronic ischemia with history of GI bleed 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 Dr. Quesada PCP, discussed anticoagulation with hematology, initiating Low-dose heparin drip as per hematology recommendations. Close monitoring with Serial CBCs. Case management to arrange for CPAP delivery, Wound Center to be re-apply cast. Continue recommending subacute rehab at discharge, patient needs to decline. The impression and plan of care has been dictated as directed. : I performed a history and examination of this patient, discussed the same with the dictator. I agree with the dictator's note ,documented as a scribe. Any additional findings or plans will be noted.
[2019-11-07 15:02] LABS: Anisocytosis Slight; Basophils # (A) 0.1 k/uL (0-0.2); Basophils % (A) 0 %; Eosinophils # (A) 0.3 k/uL (0-0.7); Eosinophils % (A) 3 %; HCT 34.4 % (39.0-53.0); HGB 10.3 gm/dL (13.0-17.5); Hypochromasia Marked; Lymphocytes # (A) 1.7 k/uL (1.0-4.8); Lymphocytes % (A) 13 %; MCH 25.7 pg (25.0-35.0); MCHC 29.9 g/dL (31.0-37.0); Mean Platelet Volume 8.9; Monocytes # (A) 0.7 k/uL (0-1.0); Monocytes % (A) 6 %; Neutrophils # (A) 9.8 k/uL (1.3-7.7); Neutrophils % (A) 77 %; Platelet Count 280 k/uL (150-450); RDW 18.1 % (11.5-15.5); WBC 12.8 k/uL (3.8-10.6)
[2019-11-07 15:08] LABS: INR 1.1 (<1.2); Partial Thromboplastin Time 35.2 sec (22.0-30.0)
--- NOTE | 2019-11-07 15:40 | P.PN ---
Progress Note - Text Progress Note Date: 11/07/19 Izabella Garza from hematology discussed with Dr. Holder that the patient had a likely cardioembolic acute CVA, anticoagulation has been recommended to be initiated. The patient has a history of lower GI blood loss anemia and had extensive work up that included a video endoscopy in 2018 which revealed some small bowel ectasias. If anticoagulation is needed, Dr. Holder was agreeable with them starting heparin drip while the patient is in the hospital for close observation. He did state that whether on anticoagulation or not, he will still likely have intermittent bleeding, however anticoagulation will likely increase risk. The above dictated assessment and findings were discussed with Dr. Holder. The impression and plan of care have been directed as dictated.
[2019-11-07 16:36] LABS: Glucose,Whole Blood 194 mg/dL (75-99)
[2019-11-07] MEDS: SODIUM CHLORIDE 0.9% 1,000 ML IV SCH (17:13)
--- NOTE | 2019-11-07 17:14 | P.PN ---
Subjective Progress Note Date: 11/07/19 Principal diagnosis: Iron Deficiency Anemia trial of heparin has started. patient at bedside. Close monitoring of CBC and if hemoglobin decrease or evidence of bleeding noted will stop heparin (no bolus recommended) Patient is high risk for bleeding as well as high risk for clotting. Discussed with GI regarding any possible intervention to assist in preventing bleeding. Will need to monitor very closely. Objective - Vital Signs Vital signs: Vital Signs Temp 98.1 F 11/07/19 16:00 Pulse 55 L 11/07/19 16:00 Resp 16 11/07/19 16:00 BP 135/62 11/07/19 16:00 Pulse Ox 98 11/07/19 16:00 Intake & Output 11/06/19 11/07/19 11/07/19 18:59 06:59 18:59 Intake Total 891 450 420 Output Total 1770 200 Balance -879 250 420 Weight 96.9 kg 96.9 kg Intake: Oral 891 450 420 Output: Urine 1770 200 Other: Voiding Method Urinal Urinal Urinal # Voids 1 3 # Bowel Movements 1 - Exam - Constitutional General appearance: cooperative, no acute distress - EENT Eyes: EOMI, dentition normal ENT: hard of hearing - Neck Neck: normal ROM - Respiratory Respiratory: bilateral: diminished - Cardiovascular Rhythm: irregularly irregular - Persistent - Gastrointestinal General gastrointestinal: normal bowel sounds, soft - Integumentary Integumentary: pale, BLE 1-2 - Neurologic non-focal - Musculoskeletal Musculoskeletal: generalized weakness - Psychiatric Psychiatric: A&O x's 3, appropriate affect, difficulty in focusing - Labs CBC & Chem 7: 11/07/19 14:41 11/04/19 11:05 Labs: Abnormal Lab Results - Last 24 Hours (Table) 11/05/19 11/06/19 11/07/19 Range/Units 06:17 20:24 06:18 WBC (3.8-10.6) k/uL RBC (4.30-5.90) m/uL Hgb (13.0-17.5) gm/dL Hct (39.0-53.0) % MCHC (31.0-37.0) g/dL RDW (11.5-15.5) % Neutrophils # (1.3-7.7) k/uL APTT (22.0-30.0) sec POC Glucose (mg/dL) 65 L 204 H (75-99) mg/dL Methylmalonic Acid 0.59 H (<0.40) umol/L 11/07/19 11/07/19 11/07/19 Range/Units 12:01 14:41 14:41 WBC 12.8 H (3.8-10.6) k/uL RBC 4.00 L (4.30-5.90) m/uL Hgb 10.3 L (13.0-17.5) gm/dL Hct 34.4 L (39.0-53.0) % MCHC 29.9 L (31.0-37.0) g/dL RDW 18.1 H (11.5-15.5) % Neutrophils # 9.8 H (1.3-7.7) k/uL APTT 35.2 H (22.0-30.0) sec POC Glucose (mg/dL) 155 H (75-99) mg/dL Methylmalonic Acid (<0.40) umol/L 11/07/19 Range/Units 16:27 WBC (3.8-10.6) k/uL RBC (4.30-5.90) m/uL Hgb (13.0-17.5) gm/dL Hct (39.0-53.0) % MCHC (31.0-37.0) g/dL RDW (11.5-15.5) % Neutrophils # (1.3-7.7) k/uL APTT (22.0-30.0) sec POC Glucose (mg/dL) 194 H (75-99) mg/dL Methylmalonic Acid (<0.40) umol/L Assessment and Plan Plan: Assessment and Recommendations: 1. 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 Patient has had intermittent GI bleeding for a long time. Because of the area of his intermittent bleeding this poses increased risk for anticoagulation therapy. With cardiology's recommendations of anticoagulation patient has been educated on the potential risks of both. Will ask GI if anyway to further stop this recurrent intermittent bleeding, and if intervention can be done and anticoagulation is felt absolutely necessary would need very close monitoring and slow infusion. - Hemorrhoidal blood most recently 2. Positive Stool for Occult Blood: - GI 3. Elevated Lipase: - GI Following Plan: - Recommendation for recent acute CVA, Atrial Fib and need for anticoagulation - Very High risk for recurrent GI bleeding at baseline which has required intermittent (approx [id number]) parental iron supplementation. 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 Patient was educated on risks and benefits of both and he understands the difficult situation. No GI intervention planned. - Recommend slowly infuse heparin drip (no bolus) over 48 hour minimum while inpatient and serial cbc's. If no s/s bleeding could convert to DOAC and monitor very closely. Will require very close monitoring as outpatient, no greater than every 4 weeks for cbc check. - IV Heparin has been initiated and CBC check q8 hours is in place. Patient and aware to monitor for any S/S bleeding. Very closely monitor
--- NOTE | 2019-11-07 20:27 | P.PN ---
Subjective Progress Note Date: 11/07/19 Patient offers no new complaints. Denies any dizziness nausea or vomiting. No headache at this time. Sitting comfortably in the bed. Objective - Vital Signs Vital signs: Vital Signs Temp 98.1 F 11/07/19 16:00 Pulse 55 L 11/07/19 16:00 Resp 16 11/07/19 16:00 BP 135/62 11/07/19 16:00 Pulse Ox 98 11/07/19 16:00 Intake & Output 11/07/19 11/07/19 11/08/19 06:59 18:59 06:59 Intake Total 450 420 Output Total 200 Balance 250 420 Weight 96.9 kg 96.9 kg Intake: Oral 450 420 Output: Urine 200 Other: Voiding Method Urinal Urinal # Voids 1 3 1 - Exam Patient's mental status, speech and language functions are normal. Muscle stre ngth appears normal. No ataxia for [id number] testing. Visual schaeffer are full. Face is symmetric. Gait deferred. - Labs CBC & Chem 7: 11/07/19 14:41 11/04/19 11:05 Labs: Abnormal Lab Results - Last 24 Hours (Table) 11/05/19 11/06/19 11/07/19 Range/Units 06:17 20:24 06:18 WBC (3.8-10.6) k/uL RBC (4.30-5.90) m/uL Hgb (13.0-17.5) gm/dL Hct (39.0-53.0) % MCHC (31.0-37.0) g/dL RDW (11.5-15.5) % Neutrophils # (1.3-7.7) k/uL APTT (22.0-30.0) sec POC Glucose (mg/dL) 65 L 204 H (75-99) mg/dL Methylmalonic Acid 0.59 H (<0.40) umol/L 11/07/19 11/07/19 11/07/19 Range/Units 12:01 14:41 14:41 WBC 12.8 H (3.8-10.6) k/uL RBC 4.00 L (4.30-5.90) m/uL Hgb 10.3 L (13.0-17.5) gm/dL Hct 34.4 L (39.0-53.0) % MCHC 29.9 L (31.0-37.0) g/dL RDW 18.1 H (11.5-15.5) % Neutrophils # 9.8 H (1.3-7.7) k/uL APTT 35.2 H (22.0-30.0) sec POC Glucose (mg/dL) 155 H (75-99) mg/dL Methylmalonic Acid (<0.40) umol/L 11/07/19 Range/Units 16:27 WBC (3.8-10.6) k/uL RBC (4.30-5.90) m/uL Hgb (13.0-17.5) gm/dL Hct (39.0-53.0) % MCHC (31.0-37.0) g/dL RDW (11.5-15.5) % Neutrophils # (1.3-7.7) k/uL APTT (22.0-30.0) sec POC Glucose (mg/dL) 194 H (75-99) mg/dL Methylmalonic Acid (<0.40) umol/L Assessment and Plan Assessment: * Acute ischemic strokes, involving the right superior cerebellum and posterior right parietal region. Events likely cardioembolic in nature. * Bilateral impacted cerumen, left more than right, which may be contributing to this episode of dizziness and vertigo. * Paroxysmal atrial fibrillation, currently not on anticoagulation due to below. 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 Patient's occult blood positive in the stools. * Diabetes * Hypertension * Hard of hearing Plan: * MRI of the brain revealed acute stroke involving the right superior cerebellum in the right posterior parietal region. Highly suggestive of cardioembolism. Suggest starting anticoagulation, if no major medical contraindications. William correa however appears to be high risk for anticoagulation because of small bowel AVMs. Patient started on heparin drip with no bolus. Choice of long- term anticoagulation as per GI, cardiology and IM. * Patient had a 2-D echo on 04/03/2019, which revealed sinus rhythm. Borderline concentric LVH. EF 45-50%. Apical lateral wall motion is hypokinetic. Apical septum wall motion is hypokinetic. Left atrium is mildly dilated. * Patient had a normal carotid Doppler on 02/07/2016. * Hemoglobin A1c 6.0 on 10/11/2019. * Neurologically clear. Neurology will sign off. Please call neurology if you have any other concerns.
[2019-11-07 20:28] LABS: Glucose,Whole Blood 94 mg/dL (75-99)
[2019-11-07] MEDS: MONTELUKAST 10 MG TAB PO SCH (21:08)
[2019-11-07] MEDS: MAGNESIUM OXIDE 400 MG TAB PO SCH (21:08)
[2019-11-07] MEDS: PRAVASTATIN SODIUM 40 MG TAB PO SCH (21:08)
[2019-11-07] MEDS: ESCITALOPRAM 10 MG TAB PO SCH (21:09)
[2019-11-07 21:57] LABS: Anisocytosis Slight; Basophils # (A) 0.1 k/uL (0-0.2); Basophils % (A) 1 %; Eosinophils # (A) 0.4 k/uL (0-0.7); Eosinophils % (A) 3 %; HCT 33.3 % (39.0-53.0); HGB 10.3 gm/dL (13.0-17.5); Hypochromasia Marked; Lymphocytes # (A) 2.1 k/uL (1.0-4.8); Lymphocytes % (A) 14 %; MCH 26.2 pg (25.0-35.0); MCHC 30.9 g/dL (31.0-37.0); MCV 84.8 fL (80.0-100.0); Mean Platelet Volume 8.5; Monocytes % (A) 6 %; Neutrophils # (A) 11.8 k/uL (1.3-7.7); Neutrophils % (A) 75 %; Platelet Count 282 k/uL (150-450); RBC 3.93 m/uL (4.30-5.90); RDW 18.2 % (11.5-15.5); WBC 15.6 k/uL (3.8-10.6)
[2019-11-08 02:51] LABS: Anisocytosis Slight; Basophils # (A) 0.1 k/uL (0-0.2); Basophils % (A) 1 %; Eosinophils # (A) 0.5 k/uL (0-0.7); Eosinophils % (A) 3 %; HCT 32.2 % (39.0-53.0); HGB 9.9 gm/dL (13.0-17.5); Hypochromasia Marked; Lymphocytes % (A) 12 %; MCH 25.9 pg (25.0-35.0); MCHC 30.6 g/dL (31.0-37.0); MCV 84.6 fL (80.0-100.0); Mean Platelet Volume 8.6; Monocytes # (A) 1.1 k/uL (0-1.0); Monocytes % (A) 7 %; Neutrophils # (A) 13.1 k/uL (1.3-7.7); Neutrophils % (A) 77 %; Platelet Count 272 k/uL (150-450); RBC 3.81 m/uL (4.30-5.90); RDW 18.3 % (11.5-15.5)
[2019-11-08 06:16] LABS: Glucose,Whole Blood 148 mg/dL (75-99)
[2019-11-08] MEDS: PANTOPRAZOLE 40 MG TABLET PO SCH (06:44)
[2019-11-08] MEDS: SODIUM CHLORIDE 0.9% 1,000 ML IV SCH ×2 (06:50→18:04)
[2019-11-08] MEDS: INSULIN ASPART (NovoLOG) 100 UNIT/ML VIAL SQ SCH ×7 (08:30→21:33)
[2019-11-08] MEDS: POTASSIUM CHLORIDE ER 20 MEQ TAB.ER PO SCH (08:36)
[2019-11-08] MEDS: metFORMIN 500 MG TAB PO SCH ×2 (08:36→21:33)
[2019-11-08] MEDS: FUROSEMIDE 80 MG TAB PO SCH (08:36)
[2019-11-08] MEDS: INSULIN DETEMIR (LEVEMIR) 100 UNIT/ML SYR SQ SCH ×2 (08:36→21:34)
[2019-11-08] MEDS: LISINOPRIL 5 MG TAB PO SCH (08:36)
[2019-11-08] MEDS: POLYETHYLENE GLYCOL 3350 17 GM POWD.PACK PO SCH ×2 (08:37→21:33)
[2019-11-08] MEDS: HYDROCORTISONE 2.5% RECTAL CREAM 30 GM TUBE RECTAL SCH ×2 (08:39→21:34)
[2019-11-08] MEDS: SYMBICORT 160-4.5 MCG INHALER INHALATION PRN (08:43)
[2019-11-08 09:03] LABS: Anisocytosis Slight; Basophils # (A) 0.1 k/uL (0-0.2); Basophils % (A) 1 %; Eosinophils # (A) 0.4 k/uL (0-0.7); Eosinophils % (A) 3 %; HCT 32.5 % (39.0-53.0); HGB 9.9 gm/dL (13.0-17.5); Hypochromasia Marked; Lymphocytes # (A) 1.9 k/uL (1.0-4.8); Lymphocytes % (A) 12 %; MCH 25.8 pg (25.0-35.0); MCHC 30.5 g/dL (31.0-37.0); MCV 84.7 fL (80.0-100.0); Mean Platelet Volume 9.3; Monocytes # (A) 1.1 k/uL (0-1.0); Monocytes % (A) 7 %; Neutrophils # (A) 12.3 k/uL (1.3-7.7); Neutrophils % (A) 77 %; Platelet Count 248 k/uL (150-450); RBC 3.84 m/uL (4.30-5.90); RDW 18.7 % (11.5-15.5); WBC 15.9 k/uL (3.8-10.6)
[2019-11-08] MEDS: APIXABAN 2.5 MG TABLET PO SCH ×2 (10:28→21:33)
--- NOTE | 2019-11-08 11:06 | PN ---
PROGRESS NOTE Mr. Carson is an 84-year-old male with known history of atrial fibrillation, obstructive sleep apnea, history of cerebrovascular accident, coronary artery disease and coronary bypass grafting who presented with dizziness and had some episode of an episode of rectal bleeding. He had evidence of cerebrovascular accident. He is feeling much better today, his breathing is stable. He denies any chest pain. No dizziness. No palpitation. He had no significant pauses. He was evaluated by the Neurology Service and has recommended anticoagulation because of the stroke and the history of atrial fibrillation. Of note, the patient had prior episode of GI bleeding. He continues to be at this time on IV heparin, amlodipine 5 mg daily, furosemide 80 mg once a day, lisinopril 5 mg daily, insulin, metformin 500 mg twice a day. Pravastatin 40 mg daily. PHYSICAL EXAMINATION: Blood pressure 132/60 with a heart rate in the 60s. LUNGS: Clear. HEART: Irregular, regular, S1, S2. No S3 with systolic murmur, no diastolic murmur. ABDOMEN: Soft, nontender, obese. EXTREMITIES: With trace edema. LAB DATA: Revealed a hemoglobin 9.9. IMPRESSION: 1. Atrial fibrillation, rate controlled. No significant pauses. 2. Cerebrovascular accident. 3. 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 4. History of coronary artery disease, status post coronary artery bypass grafting. 5. History of hypertension. 6. Hyperlipidemia. RECOMMENDATION: I will switch him from heparin to Eliquis 2.5 mg twice a day. Will follow his blood count very closely. If he has evidence of recurrent GI bleeding, then the other option will be to consider Watchman procedure for closure of his left atrial appendage. MMODL / IJN: [id number] /
[2019-11-08 11:23] LABS: Glucose,Whole Blood 186 mg/dL (75-99)
--- OUTSIDE RECORDS SUMMARY | 2019-11-08 11:42 | XMS REPORT | Referral Summary ---
:1935 Author Name [facility] Address [address] [address] Care Team Providers Name Role Phone Faye Unavailable Unavailable Brian Unavailable Unavailable Flaca Unavailable Unavailable Golden Unavailable Unavailable Allergies, Adverse Reactions and Alerts Substance Reaction Reaction Severity Status Haldol hallucinations Severe Active Ritalin HALLUCINATIONS Moderate Active Dilaudid hallucations Moderate Active Lipitor unknown Moderate Active Seroquel hallucinations Moderate Active penicillin rash/hives Severe Active Sulfa (Sulfonamide Antibiotics) unknown Severe Active morphine hallucinations Severe Active codeine hallucinations Severe Active clonazepam hallucinations Moderate Active propofol hallucinations Severe Active vancomycin unknown Moderate Active Ativan unknown Moderate Active Medications Medication Directions Start Date Status Tylenol Extra Strength 500 mg tablet oral Unspecified ac tive tablet metformin ER 500 mg tablet extended release 24 hr Unspecified active tablet,extended release 24 hr oral pravastatin 40 mg tablet tablet oral Unspecified active lisinopril 5 mg tablet tablet oral Unspecified active Zestril 5 mg tablet tablet oral Unspecified active albuterol sulfate 2.5 mg/3 mL solution for nebulization Unspecif ied active (0.083 %) solution for inhalation nebulization Symbicort 160 mcg-4.5 HFA aerosol inhaler inhalation Unspecified active mcg/actuation HFA aerosol inhaler Norvasc 10 mg tablet tablet oral Unspecified active Levemir U-100 Insulin 100 unit/mL solution subcutaneous Unspecif ied active subcutaneous solution Novolog Flexpen U-100 Insulin insulin pen subcutaneous Unspecifi ed active aspart 100 unit/mL subcutaneous Miralax 17 gram oral powder powder in packet oral Unspecified active packet [place]-3 350 mg-235 mg-90 mg-597 capsule,delayed release(DR/EC) U nspecified active mg capsule,delayed release oral Lasix 40 mg tablet tablet oral Unspecified active magnesium 250 mg tablet tablet oral Unspecified active potassium chloride ER 20 mEq tablet extended release oral Unspec ified active tablet,extended release Protonix 40 mg tablet,delayed tablet,delayed release (DR/EC) Uns pecified active release oral Lexapro 20 mg tablet tablet oral Unspecified active B Complex-Vitamin B12 tablet tablet oral Unspecified act tod zinc 50 mg tablet tablet oral Unspecified active Problems Problem Onset Date Status E08.621 - Diabetes mellitus due to underlying condition with foot 09/25/2019 active ulcer L97.412 - Non-pressure chronic ulcer of right heel and midfo ot with 09/25/2019 active fat layer exposed M86.271 - Subacute osteomyelitis, right ankle and foot 020 active Encounters Date Location 09/25/2019 12:00:00 AM [facility] Encounter Diagnosis: E08.621 - Diabetes mellitus due to underlying condition with foot ulcer Encounter Diagnosis: L97.412 - Non-pressure chronic ulcer of right heel and midfoot with fat layer exposed Encounter Diagnosis: M86.271 - Subacute osteomyelitis, right ankle and foot Vital signs Vital Value Unit Height 70 [in_i] Weight Measured 233 [lb_av] BP Systolic 138 mm[Hg] BP Diastolic 62 mm[Hg] BMI (Body Mass Index) 33.4 Unspecified Weight Measured 105.91 kg Body Temperature 98.5 [degF] Body Temperature 36.94 Katerina O2 % BldC Oximetry Unspecified Unspecified Heart Rate 64 /min Respiratory Rate 18 /min Inhaled O2 concentration Unspecified Unspecified Immunizations Name Date Status Immunization information has not been included or does not e xist. Procedures Procedure Date Status Application of rigid total contact leg cast 10/30/2019 Completed Social History Smoking Status: Never smoker Goals Description Goal: Patient will not experience any in jury related to falls Goal: Patient will remain injury free re lated to falls Goal: Patient/caregiver will demonstrate safe use of adaptive devices to increase mobility Goal: Patient/caregiver will verbalize/d emonstrate measures taken to prevent injury and/or falls Goal: Patient/caregiver will demonstrate understanding of all current medications Goal: Necrotic/devitalized tissue will b e minimized in the wound bed Goal: Patient/caregiver will verbalize u nderstanding of reason and process for debridement of necrotic tissue Goal: Patient/caregiver will verbalize u nderstanding of the [facility] Goal: Diagnostic evaluation for osteomye litis completed as ordered Goal: Patient/caregiver will verbalize u nderstanding of disease process and disease management Goal: Patient's osteomyelitis will resol ve Goal: Patient will verbalize adequate pa in control and receive pain control interventions during procedures as neede d Goal: Patient/caregiver will verbalize a dequate pain control between visits Goal: Patient/caregiver will verbalize c omfort level met Goal: Patient/caregiver will verbalize u nderstanding of disease process and disease management Goal: Non-invasive arterial studies are completed as ordered Goal: Patient/caregiver will verbalize u nderstanding of skin care regimen Goal: Ulcer/skin breakdown will have a v olume reduction of 30% by week 4 Goal: Ulcer/skin breakdown will have a v olume reduction of 50% by week 8 Goal: Ulcer/skin breakdown will have a v olume reduction of 80% by week 12 Goal: Ulcer/skin breakdown will heal wit hin 14 weeks Health Concerns Description Problem: Abuse / Safety / Falls / Self C are Management Problem: Medication Problem: Necrotic Tissue Problem: Orientation to the Wound Care P rogram Problem: Osteomyelitis Problem: Pain, Acute or Chronic Problem: Peripheral Neuropathy Problem: Tissue Oxygenation Problem: Wound/Skin Impairment Functional Status Description Date Cognitive Status: Alert and Oriented x 4 (Active) 2019 Ambulatory Status - Wheel Chair (Active) 10/30/2019 Assessment and Plan Description Laboratory: Wound culture routine. Laboratory: CBC W Auto Differential pane l. Laboratory: Comprehensive metabolic pane l=CMS. Laboratory: Hb A1c -Method not specified . Laboratory: Prealbumin. Services and Therapies: Ankle Brachial I ndex (DARLIN). Services and Therapies: Segmental Pressu res with Toe. Plan of Treatment: Patient referred to ome care Plan of Treatment: Apply topical anesthe tic as ordered Plan of Treatment: Excisional debridemen t Plan of Treatment: Systemic antibiotics Plan of Treatment: Triple Phase Bone Sca n Plan of Treatment: Administer pain contr ol measures as ordered Plan of Treatment: Consult for HBO Plan of Treatment: Patient referred for customized footwear/offloading Plan of Treatment: Ankle Brachial Index (DARLIN) Plan of Treatment: Consult for HBO Plan of Treatment: Patient referred to ome care Plan of Treatment: Skin care regimen ini tiated Plan of Treatment: Topical wound managem ent initiated Assessment: This elderly diabetic gentle man has been treated for weeks for a plantar ulcer on the right heel. 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 There has been some Improvement. He has made no signif icant effort at offloading.No new complaints. Vascular studies look adequate for heal ing. Bone scan positive.10/04/2019: Patient tolerated total contact cast, redness no kirsten to the medial aspect of the malleolus.10/09/2019: No complaints. To lerating TCC well.10/16/2019. No complaints. Tolerating TCC.10/23/2019: No complaint s. Tolerating TCC10/30/2019: No complaints. New area at risk medial right great toe Results Name Specimen Value Unit Ref. Range Date Result information has not been included or does not exist. Medical Equipment Implanted Area YARELY Assigning Author maurice Medical Equipment information has not been included or does not exist. Reason for Referral transition of care
--- NOTE | 2019-11-08 12:35 | P.PN ---
Subjective Progress Note Date: 11/08/19 Patient offers no new complaints. Denies any dizziness nausea or vomiting. No headache at this time. Sitting comfortably in the bed. Patient was later seen walking with the therapy, appeared stable. Objective - Vital Signs Vital signs: Vital Signs Temp 98.0 F 11/08/19 11:48 Pulse 54 L 11/08/19 11:48 Resp 16 11/08/19 11:48 BP 145/56 11/08/19 11:48 Pulse Ox 98 11/08/19 11:48 Intake & Output 11/07/19 11/08/19 11/08/19 18:59 06:59 18:59 Intake Total 420 240 Output Total 250 1000 Balance 420 -250 -760 Weight 96.9 kg 99.6 kg Intake: Oral 420 240 Output: Urine 250 1000 Other: Voiding Method Urinal Urinal # Voids 3 1 # Bowel Movements 1 - Exam Patient's mental status, speech and language functions are normal. Muscle strength appears normal. No ataxia for [id number] testing. Visual schaeffer are full. Face is symmetric. Gait noted to be stable with the therapist - Labs CBC & Chem 7: 11/08/19 06:52 11/04/19 11:05 Labs: Abnormal Lab Results - Last 24 Hours (Table) 11/07/19 11/07/19 11/07/19 Range/Units 14:41 14:41 16:27 WBC 12.8 H (3.8-10.6) k/uL RBC 4.00 L (4.30-5.90) m/uL Hgb 10.3 L (13.0-17.5) gm/dL Hct 34.4 L (39.0-53.0) % MCHC 29.9 L (31.0-37.0) g/dL RDW 18.1 H (11.5-15.5) % Neutrophils # 9.8 H (1.3-7.7) k/uL Monocytes # (0-1.0) k/uL APTT 35.2 H (22.0-30.0) sec POC Glucose (mg/dL) 194 H (75-99) mg/dL 11/07/19 11/07/19 11/08/19 Range/Units 21:30 21:30 02:39 WBC 15.6 H 17.0 H (3.8-10.6) k/uL RBC 3.93 L 3.81 L (4.30-5.90) m/uL Hgb 10.3 L 9.9 L (13.0-17.5) gm/dL Hct 33.3 L 32.2 L (39.0-53.0) % MCHC 30.9 L 30.6 L (31.0-37.0) g/dL RDW 18.2 H 18.3 H (11.5-15.5) % Neutrophils # 11.8 H 13.1 H (1.3-7.7) k/uL Monocytes # 1.1 H (0-1.0) k/uL APTT 55.3 H (22.0-30.0) sec POC Glucose (mg/dL) (75-99) mg/dL 11/08/19 11/08/19 11/08/19 Range/Units 06:15 06:52 08:45 WBC 15.9 H (3.8-10.6) k/uL RBC 3.84 L (4.30-5.90) m/uL Hgb 9.9 L (13.0-17.5) gm/dL Hct 32.5 L (39.0-53.0) % MCHC 30.5 L (31.0-37.0) g/dL RDW 18.7 H (11.5-15.5) % Neutrophils # 12.3 H (1.3-7.7) k/uL Monocytes # 1.1 H (0-1.0) k/uL APTT 61.2 H (22.0-30.0) sec POC Glucose (mg/dL) 148 H (75-99) mg/dL 11/08/19 Range/Units 11:21 WBC (3.8-10.6) k/uL RBC (4.30-5.90) m/uL Hgb (13.0-17.5) gm/dL Hct (39.0-53.0) % MCHC (31.0-37.0) g/dL RDW (11.5-15.5) % Neutrophils # (1.3-7.7) k/uL Monocytes # (0-1.0) k/uL APTT (22.0-30.0) sec POC Glucose (mg/dL) 186 H (75-99) mg/dL Assessment and Plan Assessment: * Acute ischemic strokes, involving the right superior cerebellum and posterior right parietal region. Events likely cardioembolic in nature. * Paroxysmal atrial fibrillation, now started on Apixaban 2.5 mg twice a day. 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 Patient's occult blood positive in the stools. * Diabetes * Hypertension * Hard of hearing Plan: * MRI of the brain revealed acute stroke involving the right superior cerebellum in the right posterior parietal region. Highly suggestive of cardioembolism. Suggest starting anticoagulation, if no major medical contraindications. Patient however appears to be high risk for anticoagulation because of small bowel AVMs. Patient started on Apixaban 2.5 mg twice a day as per cardiology. Choice of long-term anticoagulation as per GI, cardiology and IM. * Patient had a 2-D echo on 04/03/2019, which revealed sinus rhythm. Borderline concentric LVH. EF 45-50%. Apical lateral wall motion is hypokinetic. Apical septum wall motion is hypokinetic. Left atrium is mildly dilated. * Patient had a normal carotid Doppler on 02/07/2016. * Hemoglobin A1c 6.0 on 10/11/2019. * Neurologically clear. Neurology will sign off. Please call neurology if you have any other concerns.
--- NOTE | 2019-11-08 13:46 | P.PN ---
Subjective Progress Note Date: 11/08/19 This is an 84-year-old gentleman with history of atrial fibrillation, CAD, NE, cancer, CHF, COPD, CVA/TIA, diabetes mellitus, gastroesophageal reflux disease, renal disease, sleep apnea and multiple other medical issues presented to the ER with complaints of rectal bleeding 1 day, dizziness, lightheadedness, nausea, vomiting. Denies chest pain, palpitations or increased shortness of breath. EKG reporting atrial fibrillation with slow ventricular rate, incomplete left bundle branch block, nonspecific T waves. Brain CT showed questionable subacute ischemic right parietal lobe, atrophy. Hemoglobin has remained stable at 10.5, platelets within normal limits. Afebrile, normal WBC. No further emesis or rectal bleeding. MRI ordered. Multiple consults already in place with GI, neurology, oncology/hematology and wound care center. 11/06/2019 attempting to bear weight on nonweightbearing extremity, requires reminders. Telemetry reporting bradycardia with heart rate down into the 30s ,pauses up to 2.4 seconds, run of nonsustained V. tach. Discussed his CPAP machine use at home, patient states he never received the machine. Hemoglobin stable at 11.2 with no bleeding reported. Denies lightheadedness, dizziness or focal deficits. Denies chest pain, palpitations or shortness of breath. 11/07/19 remains bradycardic with heart rates down into the high 30s. Telemetry at this time reporting no further arrhythmias or pauses. Neurology recommending anticoagulation secondary to acute CVA. Discussed with both GI and cardiology, hematology's recommendations of slow heparin drip before converting to DOAC. Patient had previously been off of anticoagulation secondary to high risk relate d to falls as per cardiology. GI cleared patient for anticoagulation. 11/08/2019 patient is high risk for bleeding given history of falls, small bowel AVMs. Yesterday heparin drip initiated as per hematology's recommendations. This morning heparin drip discontinued and converted over to Eliquis as per cardiology. No bleeding reported. Hemoglobin stable at 9.9. Ambulating with PT assistance, walker, maintaining nonweightbearing restrictions. Telemetry reporting sinus rhythm, sinus bradycardia, with one 2 second pause, asymptomatic. Objective - Vital Signs Vital signs: Vital Signs Temp 98.0 F 11/08/19 11:48 Pulse 54 L 11/08/19 11:48 Resp 16 11/08/19 11:48 BP 145/56 11/08/19 11:48 Pulse Ox 98 11/08/19 11:48 Intake & Output 11/07/19 11/08/19 11/08/19 18:59 06:59 18:59 Intake Total 420 240 Output Total 250 1450 Balance 420 -250 -1210 Weight 96.9 kg 99.6 kg Intake: Oral 420 240 Output: Urine 250 1450 Other: Voiding Method Urinal Urinal # Voids 3 1 # Bowel Movements 1 - Exam GENERAL: Sitting up in chair, no acute distress HEENT: PERRLA EOMI, poor dentition NECK: Minimal JVD. No thyroid enlargement. CARDIOVASCULAR: S1, S2 regular. Systolic murmur at RSB RESPIRATION: Breath sounds diminished in the bases. mild rhonchi, diffuse bibasilar crackles, no wheezes, ABDOMEN: Obese, Soft, mildly distended, nontender . No guarding. no masses palpable. Positive bowel sounds. LEGS: Right lower extremity dressing PSYCHIATRY: Alert and oriented X3, mood and affect normal. NERVOUS SYSTEM: Cranial N 2-12 grossly normal. Moves all 4 limbs. Diffuse weakness ,No focal deficits. Strength and sensation grossly intact.. Lymphatic system. No LN neck axilla or groin. - Labs CBC & Chem 7: 11/08/19 06:52 11/04/19 11:05 Labs: Abnormal Lab Results - Last 24 Hours (Table) 11/07/19 11/07/19 11/07/19 Range/Units 14:41 14:41 16:27 WBC 12.8 H (3.8-10.6) k/uL RBC 4.00 L (4.30-5.90) m/uL Hgb 10.3 L (13.0-17.5) gm/dL Hct 34.4 L (39.0-53.0) % MCHC 29.9 L (31.0-37.0) g/dL RDW 18.1 H (11.5-15.5) % Neutrophils # 9.8 H (1.3-7.7) k/uL Monocytes # (0-1.0) k/uL APTT 35.2 H (22.0-30.0) sec POC Glucose (mg/dL) 194 H (75-99) mg/dL 11/07/19 11/07/1920 Range/Units 21:30 21:30 02:39 WBC 15.6 H 17.0 H (3.8-10.6) k/uL RBC 3.93 L 3.81 L (4.30-5.90) m/uL Hgb 10.3 L 9.9 L (13.0-17.5) gm/dL Hct 33.3 L 32.2 L (39.0-53.0) % MCHC 30.9 L 30.6 L (31.0-37.0) g/dL RDW 18.2 H 18.3 H (11.5-15.5) % Neutrophils # 11.8 H 13.1 H (1.3-7.7) k/uL Monocytes # 1.1 H (0-1.0) k/uL APTT 55.3 H (22.0-30.0) sec POC Glucose (mg/dL) (75-99) mg/dL 11/08/19 11/08/19 11/08/19 Range/Units 06:15 06:52 08:45 WBC 15.9 H (3.8-10.6) k/uL RBC 3.84 L (4.30-5.90) m/uL Hgb 9.9 L (13.0-17.5) gm/dL Hct 32.5 L (39.0-53.0) % MCHC 30.5 L (31.0-37.0) g/dL RDW 18.7 H (11.5-15.5) % Neutrophils # 12.3 H (1.3-7.7) k/uL Monocytes # 1.1 H (0-1.0) k/uL APTT 61.2 H (22.0-30.0) sec POC Glucose (mg/dL) 148 H (75-99) mg/dL 11/08/19 Range/Units 11:21 WBC (3.8-10.6) k/uL RBC (4.30-5.90) m/uL Hgb (13.0-17.5) gm/dL Hct (39.0-53.0) % MCHC (31.0-37.0) g/dL RDW (11.5-15.5) % Neutrophils # (1.3-7.7) k/uL Monocytes # (0-1.0) k/uL APTT (22.0-30.0) sec POC Glucose (mg/dL) 186 H (75-99) mg/dL Assessment and Plan Assessment: Acute blood loss anemia ,Rectal bleed, suspect hemorrhoids, hemoglobin stable Acute right parietal and right cerebellum CVA Pauses while sleeping, suspect related to sleep apnea asymptomatic nonsustained V. 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 Anticoagulation converted to Eliquis as per cardiology.case management to verify Rx Eliquis coverage.continue with close monitoring of CBCs. CPAP delivery, scheduled for this afternoon as per case management. Wound care Center notified regarding re-apply cast, recommending reevaluate with potential replacement, outpatient in the Center. Discharge planning in progress for tomorrow, home with children. The impression and plan of care has been dictated as directed. : I performed a history and examination of this patient, discussed the same with the dictator. I agree with the dictator's note ,documented as a scribe. Any additional findings or plans will be noted.
[2019-11-08 13:55] LABS: Anisocytosis Slight; Basophils # (A) 0.1 k/uL (0-0.2); Basophils % (A) 1 %; Eosinophils # (A) 0.4 k/uL (0-0.7); Eosinophils % (A) 3 %; HCT 33.2 % (39.0-53.0); HGB 10.3 gm/dL (13.0-17.5); Hypochromasia Marked; Lymphocytes # (A) 2.2 k/uL (1.0-4.8); Lymphocytes % (A) 14 %; MCH 26.2 pg (25.0-35.0); MCHC 30.9 g/dL (31.0-37.0); MCV 84.8 fL (80.0-100.0); Mean Platelet Volume 8.8; Monocytes # (A) 0.9 k/uL (0-1.0); Monocytes % (A) 6 %; Neutrophils # (A) 11.9 k/uL (1.3-7.7); Neutrophils % (A) 76 %; Platelet Count 266 k/uL (150-450); RBC 3.92 m/uL (4.30-5.90); RDW 18.2 % (11.5-15.5); WBC 15.6 k/uL (3.8-10.6)
[2019-11-08 15:16] LABS: Poikilocytosis (M) Present
[2019-11-08 16:27] LABS: Glucose,Whole Blood 63 mg/dL (75-99)
[2019-11-08 16:54] LABS: Glucose,Whole Blood 75 mg/dL (75-99)
[2019-11-08] MEDS: CYANOCOBALAMIN 500 MCG TAB PO SCH (18:04)
[2019-11-08 20:05] LABS: Anisocytosis Slight; Basophils # (A) 0.1 k/uL (0-0.2); Basophils % (A) 1 %; Eosinophils # (A) 0.4 k/uL (0-0.7); Eosinophils % (A) 2 %; HCT 31.8 % (39.0-53.0); Hypochromasia Marked; Lymphocytes # (A) 1.5 k/uL (1.0-4.8); Lymphocytes % (A) 8 %; MCH 26.9 pg (25.0-35.0); MCHC 31.5 g/dL (31.0-37.0); MCV 85.5 fL (80.0-100.0); Mean Platelet Volume 9.1; Monocytes # (A) 1.3 k/uL (0-1.0); Monocytes % (A) 7 %; Neutrophils # (A) 15.2 k/uL (1.3-7.7); Neutrophils % (A) 81 %; Platelet Count 245 k/uL (150-450); RBC 3.72 m/uL (4.30-5.90); RDW 18.4 % (11.5-15.5); WBC 18.7 k/uL (3.8-10.6)
[2019-11-08 20:17] LABS: Glucose,Whole Blood 277 mg/dL (75-99)
[2019-11-08] MEDS: MONTELUKAST 10 MG TAB PO SCH (21:33)
[2019-11-08] MEDS: amLODIPine 5 MG TAB PO SCH (21:33)
[2019-11-08] MEDS: ESCITALOPRAM 10 MG TAB PO SCH (21:33)
[2019-11-08] MEDS: PRAVASTATIN SODIUM 40 MG TAB PO SCH (21:33)
[2019-11-08] MEDS: MAGNESIUM OXIDE 400 MG TAB PO SCH (21:33)
--- NOTE | 2019-11-08 21:33 | P.PN ---
Subjective Progress Note Date: 11/08/19 Principal diagnosis: Iron Deficiency Anemia at bedside, patient up in chair eating lunch. He is in no acute distress. His hemoglobin appears to be holding steady, no s/s bleeding at this time. We discussed plan at discharge with 2 week cbc check then monthly and intermittent IV iron infusions Objective - Vital Signs Vital signs: Vital Signs Temp 97.4 F L 11/08/19 15:16 Pulse 52 L 11/08/19 15:16 Resp 16 11/08/19 15:16 BP 137/64 11/08/19 15:16 Pulse Ox 95 11/08/19 15:16 Intake & Output 11/08/19 11/08/19 11/09/19 06:59 18:59 06:59 Intake Total 720 Output Total 250 1450 500 Balance -250 -730 -500 Weight 99.6 kg Intake: Oral 720 Output: Urine 250 1450 500 Other: Voiding Method Urinal # Voids 1 # Bowel Movements 1 - Exam - Constitutional General appearance: cooperative, no acute distress - EENT Eyes: EOMI, dentition normal ENT: hard of hearing - Neck Neck: normal ROM - Respiratory Respiratory: bilateral: diminished - Cardiovascular Rhythm: irregularly irregular - Persistent - Gastrointestinal General gastrointestinal: normal bowel sounds, soft - Integumentary Integumentary: pale, BLE 1-2 - Neurologic non-focal - Musculoskeletal Musculoskeletal: generalized weakness - Psychiatric Psychiatric: A&O x's 3, appropriate affect, difficulty in focusing - Labs CBC & Chem 7: 11/08/19 19:31 11/04/19 11:05 Labs: Abnormal Lab Results - Last 24 Hours (Table) 11/07/19 11/07/19 11/08/19 Range/Units 21:30 21:30 02:39 WBC 15.6 H 17.0 H (3.8-10.6) k/uL RBC 3.93 L 3.81 L (4.30-5.90) m/uL Hgb 10.3 L 9.9 L (13.0-17.5) gm/dL Hct 33.3 L 32.2 L (39.0-53.0) % MCHC 30.9 L 30.6 L (31.0-37.0) g/dL RDW 18.2 H 18.3 H (11.5-15.5) % Neutrophils # 11.8 H 13.1 H (1.3-7.7) k/uL Monocytes # 1.1 H (0-1.0) k/uL APTT 55.3 H (22.0-30.0) sec POC Glucose (mg/dL) (75-99) mg/dL 11/08/19 11/08/19 11/08/19 Range/Units 06:15 06:52 08:45 WBC 15.9 H (3.8-10.6) k/uL RBC 3.84 L (4.30-5.90) m/uL Hgb 9.9 L (13.0-17.5) gm/dL Hct 32.5 L (39.0-53.0) % MCHC 30.5 L (31.0-37.0) g/dL RDW 18.7 H (11.5-15.5) % Neutrophils # 12.3 H (1.3-7.7) k/uL Monocytes # 1.1 H (0-1.0) k/uL APTT 61.2 H (22.0-30.0) sec POC Glucose (mg/dL) 148 H (75-99) mg/dL 11/08/19 11/08/19 11/08/19 Range/Units 11:21 13:01 16:26 WBC 15.6 H (3.8-10.6) k/uL RBC 3.92 L (4.30-5.90) m/uL Hgb 10.3 L (13.0-17.5) gm/dL Hct 33.2 L (39.0-53.0) % MCHC 30.9 L (31.0-37.0) g/dL RDW 18.2 H (11.5-15.5) % Neutrophils # 11.9 H (1.3-7.7) k/uL Monocytes # (0-1.0) k/uL APTT (22.0-30.0) sec POC Glucose (mg/dL) 186 H 63 L (75-99) mg/dL 11/08/19 11/08/19 Range/Units 19:31 20:15 WBC 18.7 H (3.8-10.6) k/uL RBC 3.72 L (4.30-5.90) m/uL Hgb 10.0 L (13.0-17.5) gm/dL Hct 31.8 L (39.0-53.0) % MCHC (31.0-37.0) g/dL RDW 18.4 H (11.5-15.5) % Neutrophils # 15.2 H (1.3-7.7) k/uL Monocytes # 1.3 H (0-1.0) k/uL APTT (22.0-30.0) sec POC Glucose (mg/dL) 277 H (75-99) mg/dL Assessment and Plan Plan: Assessment and Recommendations: 1. 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 Patient has had intermittent GI bleeding for a long time. Because of the area of his intermittent bleeding this poses increased risk for anticoagulation therapy. With cardiology's recommendations of anticoagulation patient has been educated on the potential risks of both. Will ask GI if anyway to further stop this recurrent intermittent bleeding, and if intervention can be done and anticoagulation is felt absolutely necessary would need very close monitoring and slow infusion. - Hemorrhoidal blood most recently 2. Positive Stool for Occult Blood: - GI 3. Elevated Lipase: - GI Following 4. Atrial Fibbrillation: - Very High risk for recurrent GI bleeding at baseline which has required intermittent (approx [id number]) parental iron supplementation. 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 Plan: - He has now been on anti-coagulation with heparin first and now DOAC and doing well. No signs of bleeding and hemoglobin is stable at this time. - Plan for follow-up for CBC check within two weeks after discharge and then will set plan for closely monitoring for holding of AC therapy versus and for need of intermittent Parental iron infusions. Follow with Cardiology and Gi as outpatient as well.
[2019-11-09 01:53] LABS: Anisocytosis Slight; Basophils # (A) 0.1 k/uL (0-0.2); Basophils % (A) 1 %; Eosinophils # (A) 0.5 k/uL (0-0.7); Eosinophils % (A) 3 %; HCT 31.3 % (39.0-53.0); HGB 9.6 gm/dL (13.0-17.5); Hypochromasia Marked; Lymphocytes # (A) 1.8 k/uL (1.0-4.8); Lymphocytes % (A) 11 %; MCH 25.8 pg (25.0-35.0); MCHC 30.8 g/dL (31.0-37.0); MCV 83.9 fL (80.0-100.0); Mean Platelet Volume 9.4; Monocytes # (A) 1.1 k/uL (0-1.0); Monocytes % (A) 7 %; Neutrophils # (A) 12.5 k/uL (1.3-7.7); Neutrophils % (A) 77 %; Platelet Count 236 k/uL (150-450); RBC 3.73 m/uL (4.30-5.90); RDW 18.4 % (11.5-15.5); WBC 16.2 k/uL (3.8-10.6)
[2019-11-09 06:17] LABS: Glucose,Whole Blood 109 mg/dL (75-99)
[2019-11-09] MEDS: INSULIN ASPART (NovoLOG) 100 UNIT/ML VIAL SQ SCH ×4 (07:09→13:37)
[2019-11-09] MEDS: PANTOPRAZOLE 40 MG TABLET PO SCH (07:12)
[2019-11-09] MEDS: SYMBICORT 160-4.5 MCG INHALER INHALATION PRN (07:43)
[2019-11-09 08:41] VITALS: BP 155/60; PULSE 48; RESP 18; TEMP 98
[2019-11-09 08:55] LABS: Anisocytosis Slight; Basophils # (A) 0.1 k/uL (0-0.2); Basophils % (A) 1 %; Eosinophils # (A) 0.6 k/uL (0-0.7); Eosinophils % (A) 4 %; HCT 32.4 % (39.0-53.0); HGB 9.5 gm/dL (13.0-17.5); Hypochromasia Moderate; Lymphocytes # (A) 1.5 k/uL (1.0-4.8); Lymphocytes % (A) 12 %; MCH 24.5 pg (25.0-35.0); MCHC 29.3 g/dL (31.0-37.0); MCV 83.7 fL (80.0-100.0); Mean Platelet Volume 8.8; Microcytosis Slight; Monocytes % (A) 8 %; Neutrophils # (A) 9.6 k/uL (1.3-7.7); Neutrophils % (A) 74 %; Platelet Count 231 k/uL (150-450); RBC 3.88 m/uL (4.30-5.90); RDW 18.9 % (11.5-15.5); WBC 12.9 k/uL (3.8-10.6)
[2019-11-09 09:01] LABS: African American GFR (CKD) >90 (>60 ml/min/1.73 sqM); Anion Gap 9 mmol/L; Blood Urea Nitrogen 31 mg/dL (9-20); Calcium 9.4 mg/dL (8.4-10.2); Carbon Dioxide 31 mmol/L (22-30); Chloride 95 mmol/L (98-107); Glucose 76 mg/dL (74-99); Non-African American GFR(CKD) 82 (>60 ml/min/1.73 sqM); Potassium 4.8 mmol/L (3.5-5.1); Sodium 135 mmol/L (137-145)
[2019-11-09] MEDS: LISINOPRIL 5 MG TAB PO SCH (10:18)
[2019-11-09] MEDS: FUROSEMIDE 80 MG TAB PO SCH (10:18)
[2019-11-09] MEDS: INSULIN DETEMIR (LEVEMIR) 100 UNIT/ML SYR SQ SCH (10:18)
[2019-11-09] MEDS: POTASSIUM CHLORIDE ER 20 MEQ TAB.ER PO SCH (10:19)
[2019-11-09] MEDS: POLYETHYLENE GLYCOL 3350 17 GM POWD.PACK PO SCH (10:19)
[2019-11-09] MEDS: APIXABAN 2.5 MG TABLET PO SCH (10:19)
[2019-11-09] MEDS: metFORMIN 500 MG TAB PO SCH (10:19)
[2019-11-09] MEDS: HYDROCORTISONE 2.5% RECTAL CREAM 30 GM TUBE RECTAL SCH (10:19)
--- NOTE | 2019-11-09 10:38 | P.DS ---
Providers Date of admission: 11/04/19 14:57 Expected date of discharge: 11/09/19 Attending physician: Luis Quesada Consults: 11/04/19 11:34 Consult Physician Urgent Consulting Provider: Mateo Groves Consult Reason/Comments: Heme/onc consultation Do you want consulting provider notified?: Already Contacted 11/04/19 14:58 Consult Physician Urgent Consulting Provider: Yuliya Galdamez Consult Reason/Comments: Evaluate for subacute infarct Do you want consulting provider notified?: Yes 11/06/19 07:33 Consult Physician Urgent Consulting Provider: Grzegorz Ambriz Consult Reason/Comments: pauses and vtach run Do you want consulting provider notified?: Yes Primary care physician: [facility] Course: Quincy is an 84-year-old gentleman well-known to my practice, long-standing history of atrial fibrillation and coronary artery disease history of myocardial infarction history of cancer chronic heart failure COPD CVA/TIA diabetes mellitus gastroesophageal reflux disease renal disease sleep apnea untreated patient has a 20-year-old C Pap machine sitting in the box at his house that he's never used. It has been discussed with this gentleman at length the risk that he is taking by not treating his sleep apnea this stroke risk cardiac risk increased risks because of poorly treated type 2 diabetes. Neck is very pleasantly noncompliant and makes jokes about all of his health problems, CT on this hospitalization suggests questionable subacute ischemic change in the right parietal lobe as well as atrophic changes. Hemoglobin has remained stable 10.5 platelets normal patient is currently afebrile normal white count initially but is recently and historically been elevated because of reaction including diabetes and diabetic ulcers on his feet which he has a healing diabetic ulcer at this time multiple consultations had occurred during this hospital stay, it was determined that no question the sent to a rehab unit his Karen is totally incapable of caring for him. And there are diet is Horrible considering both of them are at type 2 diabetes and constantly either A1 C's are elevated. Mr. Carson has refused placement for rehab his daughter and her Blend GenTiffanie matthew have decided that they're going to come home from [place] and take neck home to their house here in [facility] this morning 11/09/2019 Assessment: Upon entry into his room there appeared a brand-new Resporal next CPAP machine he is going to be required to use Patient Condition at Discharge: Serious Plan - Discharge Summary Discharge Rx Participant: Yes New Discharge Prescriptions: New Sucralfate [Carafate] 1 gm PO ACHS #120 tablet No Action RX: Montelukast [Singulair] 10 mg PO HS RX: Pravastatin Sodium 40 mg PO HS RX: Acetaminophen Tab [Tylenol] 1,000 mg PO BID RX: Pantoprazole [Protonix] 40 mg PO DAILY #30 tab RX: Insulin Aspart [NovoLOG Flexpen] See Protocol SQ AC-TID PRN PRN Reason: Blood Sugar - High RX: Budesonide-Formot 160-4.5 Mcg [Symbicort 160-4.5 Mcg Inhaler] 2 puff INHALATION RT-BID PRN PRN Reason: Shortness Of Breath RX: Lisinopril [Zestril] 5 mg PO DAILY RX: Cyanocobalamin (Vitamin B-12) [Vitamin B-12] 1,000 mcg PO TUFR RX: Magnesium Oxide [Mag-Ox] 400 mg PO HS RX: Insulin Detemir [Levemir Flextouch] 35 units SQ BID RX: Escitalopram Oxalate [Lexapro] 10 mg PO HS #0 RX: [place]-3 Fatty Acids/Fish Oil [Fish Oil 1,000 mg Softgel] 1 cap PO DAILY RX: Insulin Aspart [NovoLOG Flexpen] 12 units SQ TID-W/MEALS RX: Zinc 50 mg PO DAILY Nitroglycerin Sl Tabs [Nitrostat] 0.4 mg SUBLINGUAL Q5M PRN PRN Reason: Chest Pain RX: Fluticasone Nasal [place] [Flonase Nasal [place]] 2 spray EA NOSTRIL DAILY PRN PRN Reason: Allergy Symptoms RX: amLODIPine [Norvasc] 5 mg PO HS RX: metFORMIN HCL 500 mg PO BID RX: Furosemide [Lasix] 80 mg PO DAILY Discharge Medication List RX: Montelukast [Singulair] 10 mg PO HS 12/21/14 [History] RX: Pravastatin Sodium 40 mg PO HS 02/07/16 [History] RX: Acetaminophen Tab [Tylenol] 1,000 mg PO BID 03/17/17 [History] RX: Pantoprazole [Protonix] 40 mg PO DAILY #30 tab 03/21/17 [Rx] RX: Insulin Aspart [NovoLOG Flexpen] See Protocol SQ AC-TID PRN 11/12/17 [History] RX: Budesonide-Formot 160-4.5 Mcg [Symbicort 160-4.5 Mcg Inhaler] 2 puff INHALATION RT-BID PRN 11/13/17 [History] RX: Lisinopril [Zestril] 5 mg PO DAILY 01/26/18 [History] RX: Cyanocobalamin (Vitamin B-12) [Vitamin B-12] 1,000 mcg PO TUFR 01/15/19 [History] RX: Insulin Detemir [Levemir Flextouch] 35 units SQ BID 02/10/19 [History] RX: Magnesium Oxide [Mag-Ox] 400 mg PO HS 02/10/19 [History] RX: Escitalopram Oxalate [Lexapro] 10 mg PO HS #0 05/23/19 [Rx] RX: [place]-3 Fatty Acids/Fish Oil [Fish Oil 1,000 mg Softgel] 1 cap PO DAILY 07/16/19 [History] RX: Insulin Aspart [NovoLOG Flexpen] 12 units SQ TID-W/MEALS 08/29/19 [History] Nitroglycerin Sl Tabs [Nitrostat] 0.4 mg SUBLINGUAL Q5M PRN 11/04/19 [History] RX: Fluticasone Nasal [place] [Flonase Nasal [place]] 2 spray EA NOSTRIL DAILY PRN 11/04/19 [History] RX: Furosemide [Lasix] 80 mg PO DAILY 11/04/19 [History] RX: Zinc 50 mg PO DAILY 11/04/19 [History] RX: amLODIPine [Norvasc] 5 mg PO HS 11/04/19 [History] RX: metFORMIN HCL 500 mg PO BID 11/04/19 [History] Sucralfate [Carafate] 1 gm PO ACHS #120 tablet 11/07/19 [Rx] Follow up Appointment(s)/Referral(s): Luis Quesada Jr, DO [Primary Care Provider] - [facility], [NON-STAFF] - Activity/Diet/Wound Care/Special Instructions: Patient home with home care visiting nurse for wound care Patient to go home with CPAP machine and discussed compliance at length during this hospital stay he had episodic arrhythmias including pauses and well as a run of ventricular tachycardia Since Quincy has never been compliant a single day with the CPAP it might be considered that the arrhythmias including V. tach are related directly to noncompliance with treatment for sleep apnea Discharge Disposition: HOME WITH HOME HEALTH SERVICES
[2019-11-09 12:21] LABS: Glucose,Whole Blood 264 mg/dL (75-99)
[2019-11-09 12:52] LABS: Anisocytosis Slight; Basophils # (A) 0.1 k/uL (0-0.2); Basophils % (A) 1 %; Eosinophils # (A) 0.6 k/uL (0-0.7); Eosinophils % (A) 4 %; HCT 33.8 % (39.0-53.0); HGB 10.2 gm/dL (13.0-17.5); Hypochromasia Marked; Lymphocytes # (A) 1.7 k/uL (1.0-4.8); Lymphocytes % (A) 11 %; MCH 25.6 pg (25.0-35.0); MCHC 30.1 g/dL (31.0-37.0); MCV 84.9 fL (80.0-100.0); Mean Platelet Volume 8.7; Monocytes % (A) 6 %; Neutrophils % (A) 77 %; Platelet Count 235 k/uL (150-450); RBC 3.99 m/uL (4.30-5.90); RDW 18.9 % (11.5-15.5); WBC 15.7 k/uL (3.8-10.6)
--- NOTE | 2019-11-09 14:04 | P.PN ---
Subjective Progress Note Date: 11/09/19 History of present illness: This is an 84-year-old male known with history of atrial fibrillation, obstructive sleep apnea, CVA, coronary artery disease with coronary artery bypass grafting. Patient presented with dizziness and episode of rectal bleeding. He did have evidence of cerebrovascular accident. Patient is feeling much better and is prepared for discharge home today. He denies having any chest pain, no dizziness no palpitations, no shortness of breath. Neurology has recommended anticoagulation with eliquis due to stroke and history of atrial fibrillation. Prescription will be sent to his pharmacy. He is noted to have had one prior episode of GI bleeding. Heparin drip was discontinued yesterday and patient was started on eliquis. Patient is afebrile, heart rate in the 40s and 50s, blood pressure 155/60, pulse ox 97% on 2 L nasal cannula. A repeat blood work reveals W BC 15.7, hemoglobin 10.2 Physical examination: HEENT: Head is atraumatic, normocephalic. Pupils equal, round. Sclerae is anicteric. NECK: Supple. No JVD. No lymphadenopathy. No thyromegaly. LUNGS: Clear to auscultation. No wheezes or rhonchi. No intercostal retractions. HEART: Irregularly irregular rate and rhythm. Systolic murmur. ABDOMEN: Soft. Bowel sounds are present. No masses. No tenderness. EXTREMITIES: No pedal edema. No calf tenderness. NEUROLOGICAL: Patient is awake, alert and oriented x3. Cranial nerves 2 through 12 are grossly intact. Assessment: Atrial fibrillation CVA Prior history of 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 History of coronary artery disease status post coronary artery bypass grafting History of obstructive sleep apnea Plan: Continue current cardiac medications Continue eliquis 2.5 mg twice daily and prescription will be sent to his pharmacy Nurse practitioner note has been reviewed, I agree with documented findings and plan of care. Patient was seen and examined. Objective - Vital Signs Vital signs: Vital Signs Temp 98.0 F 11/09/19 08:00 Pulse 48 L 11/09/19 08:00 Resp 18 11/09/19 08:00 BP 155/60 11/09/19 08:00 Pulse Ox 97 11/09/19 08:00 Intake & Output 11/08/19 11/09/19 11/09/19 18:59 06:59 18:59 Intake Total 720 1217 120 Output Total 1450 1875 Balance -730 -658 120 Weight 100.8 kg Intake: Intake, IV Titration 750 Amount Sodium Chloride 0.9% 1, 750 000 ml @ 75 mls/hr IV . [id number] [facility] Rx#:[id number] Oral 720 467 120 Output: Urine 1450 1875 Other: Voiding Method Urinal # Bowel Movements 1 - Labs CBC & Chem 7: 11/09/19 12:39 11/09/19 07:20 Labs: Abnormal Lab Results - Last 24 Hours (Table) 11/08/19 11/08/19 11/08/19 Range/Units 11:21 13:01 16:26 WBC 15.6 H (3.8-10.6) k/uL RBC 3.92 L (4.30-5.90) m/uL Hgb 10.3 L (13.0-17.5) gm/dL Hct 33.2 L (39.0-53.0) % MCH (25.0-35.0) pg MCHC 30.9 L (31.0-37.0) g/dL RDW 18.2 H (11.5-15.5) % Neutrophils # 11.9 H (1.3-7.7) k/uL Monocytes # (0-1.0) k/uL Sodium (137-145) mmol/L Chloride (98-107) mmol/L Carbon Dioxide (22-30) mmol/L BUN (9-20) mg/dL POC Glucose (mg/dL) 186 H 63 L (75-99) mg/dL 11/08/19 11/08/19 11/09/19 Range/Units 19:31 20:15 00:59 WBC 18.7 H 16.2 H (3.8-10.6) k/uL RBC 3.72 L 3.73 L (4.30-5.90) m/uL Hgb 10.0 L 9.6 L (13.0-17.5) gm/dL Hct 31.8 L 31.3 L (39.0-53.0) % MCH (25.0-35.0) pg MCHC 30.8 L (31.0-37.0) g/dL RDW 18.4 H 18.4 H (11.5-15.5) % Neutrophils # 15.2 H 12.5 H (1.3-7.7) k/uL Monocytes # 1.3 H 1.1 H (0-1.0) k/uL Sodium (137-145) mmol/L Chloride (98-107) mmol/L Carbon Dioxide (22-30) mmol/L BUN (9-20) mg/dL POC Glucose (mg/dL) 277 H (75-99) mg/dL 11/09/19 11/09/19 11/09/19 Range/Units 06:16 07:20 07:20 WBC 12.9 H (3.8-10.6) k/uL RBC 3.88 L (4.30-5.90) m/uL Hgb 9.5 L (13.0-17.5) gm/dL Hct 32.4 L (39.0-53.0) % MCH 24.5 L (25.0-35.0) pg MCHC 29.3 L (31.0-37.0) g/dL RDW 18.9 H (11.5-15.5) % Neutrophils # 9.6 H (1.3-7.7) k/uL Monocytes # (0-1.0) k/uL Sodium 135 L (137-145) mmol/L Chloride 95 L (98-107) mmol/L Carbon Dioxide 31 H (22-30) mmol/L BUN 31 H (9-20) mg/dL POC Glucose (mg/dL) 109 H (75-99) mg/dL
== END 2019-11-09 13:57 | disposition home health service (06) | DRG 64 ==
LOC: EC 10:59 → 3SCARD 14:57
PROVIDERS: ADMIT Family Medicine; ATTEND Family Medicine
DX: I63.441 Cerebral infarction due to embolism of right cerebellar artery (principal); K55.21 Angiodysplasia of colon with hemorrhage; I50.33 Acute on chronic diastolic (congestive) heart failure; I48.19 Other persistent atrial fibrillation; I13.0 Hypertensive heart and chronic kidney disease with heart failure and stage 1 through stage 4 chronic kidney disease, or unspecified chronic kidney disease; L97.412 Non-pressure chronic ulcer of right heel and midfoot with fat layer exposed; D62 Acute posthemorrhagic anemia; I47.2 Ventricular tachycardia; I27.20 Pulmonary hypertension, unspecified; L97.512 Non-pressure chronic ulcer of other part of right foot with fat layer exposed; E11.22 Type 2 diabetes mellitus with diabetic chronic kidney disease; N18.3 Chronic kidney disease, stage 3 (moderate); E11.40 Type 2 diabetes mellitus with diabetic neuropathy, unspecified; I63.431 Cerebral infarction due to embolism of right posterior cerebral artery; E11.621 Type 2 diabetes mellitus with foot ulcer; J44.9 Chronic obstructive pulmonary disease, unspecified; Z79.4 Long term (current) use of insulin; Z20.828 Contact with and (suspected) exposure to other viral communicable diseases; R40.2142 Coma scale, eyes open, spontaneous, at arrival to emergency department; R40.2362 Coma scale, best motor response, obeys commands, at arrival to emergency department; R40.2252 Coma scale, best verbal response, oriented, at arrival to emergency department; I25.10 Atherosclerotic heart disease of native coronary artery without angina pectoris; K21.9 Gastro-esophageal reflux disease without esophagitis; G47.33 Obstructive sleep apnea (adult) (pediatric); I44.7 Left bundle-branch block, unspecified; I25.2 Old myocardial infarction; I08.1 Rheumatic disorders of both mitral and tricuspid valves; M19.041 Primary osteoarthritis, right hand; M19.042 Primary osteoarthritis, left hand; M47.9 Spondylosis, unspecified; E78.5 Hyperlipidemia, unspecified; N40.0 Benign prostatic hyperplasia without lower urinary tract symptoms; K64.9 Unspecified hemorrhoids; H91.90 Unspecified hearing loss, unspecified ear; H61.23 Impacted cerumen, bilateral; F41.9 Anxiety disorder, unspecified; F32.9 Major depressive disorder, single episode, unspecified; K59.09 Other constipation; K44.9 Diaphragmatic hernia without obstruction or gangrene; R00.1 Bradycardia, unspecified; M83.9 Adult osteomalacia, unspecified; E66.9 Obesity, unspecified; Z68.31 Body mass index [BMI] 31.0-31.9, adult; Z91.19 Patient's noncompliance with other medical treatment and regimen; Z79.51 Long term (current) use of inhaled steroids; Z79.899 Other long term (current) drug therapy; Z71.6 Tobacco abuse counseling; Z87.01 Personal history of pneumonia (recurrent); Z86.73 Personal history of transient ischemic attack (TIA), and cerebral infarction without residual deficits; Z90.81 Acquired absence of spleen; Z86.19 Personal history of other infectious and parasitic diseases; Z90.411 Acquired partial absence of pancreas; Z90.5 Acquired absence of kidney; Z98.890 Other specified postprocedural states; Z87.19 Personal history of other diseases of the digestive system; Z86.14 Personal history of Methicillin resistant Staphylococcus aureus infection; Z95.1 Presence of aortocoronary bypass graft; Z98.42 Cataract extraction status, left eye; Z98.41 Cataract extraction status, right eye; Z85.528 Personal history of other malignant neoplasm of kidney; Z87.891 Personal history of nicotine dependence; Z86.69 Personal history of other diseases of the nervous system and sense organs; Z91.81 History of falling; Z71.3 Dietary counseling and surveillance; Z88.1 Allergy status to other antibiotic agents; Z88.5 Allergy status to narcotic agent; Z88.0 Allergy status to penicillin; Z88.2 Allergy status to sulfonamides; Z88.8 Allergy status to other drugs, medicaments and biological substances; Z82.49 Family history of ischemic heart disease and other diseases of the circulatory system; Z82.5 Family history of asthma and other chronic lower respiratory diseases
CPT/HCPCS: 36415; 70450; 70551; 80048; 80053; 81003; 82150; 82272; 82607; 82746; 83690; 83921; 85025; 85610; 85730; 93005; 93306; 94640; 96361; 96374; 99285

== ENCOUNTER → 2020-01-07 | Outpatient (CLI) | payer MEDICARE, BC ==
--- NOTE | 2020-01-07 15:09 | XR ---
EXAMINATION TYPE: XR chest 2V DATE OF EXAM: 01/07/2020 COMPARISON: Chest x-ray July 14, 2019. CT chest April 02, 2019. HISTORY: J 18.9. TECHNIQUE: Frontal and lateral views of the chest are obtained. FINDINGS: Overlying sternal wires and mediastinal clips are redemonstrated. There is some chronic par enchymal change bilaterally without suspicious new focal air space opacity, pleural effusion, or pneu mothorax seen. The cardiac silhouette size remains enlarged. Old lateral left rib fractures are rede monstrated. IMPRESSION: Chronic changes and cardiomegaly without acute pulmonary process.
[2020-01-07 15:48] LABS: Anisocytosis Slight; Basophils # (A) 0.1 k/uL (0-0.2); Basophils % (A) 1 %; Eosinophils # (A) 0.4 k/uL (0-0.7); Eosinophils % (A) 3 %; HCT 25.2 % (39.0-53.0); Hypochromasia Marked; Lymphocytes # (A) 1.3 k/uL (1.0-4.8); Lymphocytes % (A) 10 %; MCHC 30.3 g/dL (31.0-37.0); MCV 89.1 fL (80.0-100.0); Mean Platelet Volume 8.2; Monocytes % (A) 8 %; Neutrophils # (A) 9.7 k/uL (1.3-7.7); Neutrophils % (A) 76 %; Platelet Count 315 k/uL (150-450); RBC 2.82 m/uL (4.30-5.90); RDW 18.9 % (11.5-15.5); WBC 12.7 k/uL (3.8-10.6)
[2020-01-07 15:52] LABS: HGB 7.6 gm/dL (13.0-17.5)
[2020-01-08 01:13] LABS: Erythrocyte Sedimentation Rate 37 mm/Hr (0-20)
[2020-01-08 06:13] LABS: African American GFR (CKD) 58.9 (60.0-200.0); Albumin 4.2 g/dL (3.80-4.90); Albumin/Globulin Ratio 2.1 (1.60-3.17); Anion Gap 11.5 mmol/L (4.00-12.00); BUN/Creat Ratio 31.54 Ratio (12.00-20.00); C Reactive Protein 1.3 mg/dL (0.0-0.8); Calcium 9.5 mg/dL (8.7-10.3); Carbon Dioxide 26.5 mmol/L (21.6-31.8); Non-African American GFR(CKD) 50.8 (60.0-200.0); Potassium 4.1 mmol/L (3.5-5.5); Total Bilirubin 0.3 mg/dL (0.3-1.2); Total Protein 6.2 g/dL (6.2-8.2)
== END | disposition home or self-care (01) ==
LOC: LABWHC1 14:27
PROVIDERS: ATTEND Family Medicine
DX: I51.7 Cardiomegaly (principal); I10 Essential (primary) hypertension; J18.9 Pneumonia, unspecified organism
CPT/HCPCS: 36415; 71046; 80053; 85025; 85652; 86140

== ENCOUNTER → 2020-03-04 | Outpatient (CLI) | payer MEDICARE, BC ==
[2020-03-04 11:58] LABS: Anisocytosis Slight; HCT 31.6 % (39.0-53.0); Hypochromasia Marked; MCH 27.2 pg (25.0-35.0); MCV 90.5 fL (80.0-100.0); Mean Platelet Volume 8.4; Platelet Count 313 k/uL (150-450); RBC 3.49 m/uL (4.30-5.90); RDW 17.3 % (11.5-15.5); WBC 10.7 k/uL (3.8-10.6)
[2020-03-04 12:20] LABS: HGB 9.5 gm/dL (13.0-17.5)
[2020-03-04 12:26] LABS: Appearance,Urine Clear (Clear); Bilirubin,Urine Negative (Negative); Blood,Urine Negative (Negative); Color,Urine Light Yellow; Glucose,Urine (UA) 4+ (Negative); Ketones,Urine Negative (Negative); Leukocyte Esterase,Urine Negative (Negative); Nitrite,Urine Negative (Negative); Protein,Urine Trace (Negative); Specific Gravity,Urine 1.014 (1.001-1.035); Urobilinogen,Urine <2.0 mg/dL (<2.0)
[2020-03-04 21:41] LABS: Hemoglobin A1C 6.8 % (4.0-6.0)
[2020-03-04 23:08] LABS: Ferritin 56.2 ng/mL (22.0-322.0)
[2020-03-05 00:17] LABS: % Iron Saturation 10.3 (15.00-50.00); African American GFR (CKD) 64.9 (60.0-200.0); Albumin 4.5 g/dL (3.80-4.90); Albumin/Globulin Ratio 2.05 (1.60-3.17); BUN/Creat Ratio 22.5 Ratio (12.00-20.00); Calcium 9.4 mg/dL (8.7-10.3); Chol/HDL Ratio 2.88; Globulin 2.2 g/dL (1.6-3.3); Phosphorus 3.7 mg/dL (2.4-5.1); Potassium 4.7 mmol/L (3.5-5.5); Total Bilirubin 0.3 mg/dL (0.2-1.2); Total Protein 6.7 g/dL (6.2-8.2); Uric Acid 6.1 mg/dL (3.7-8.7)
== END | disposition home or self-care (01) ==
LOC: LABWHC1 09:28
PROVIDERS: ATTEND Nurse Practitioner Family
DX: N18.30 Chronic kidney disease, stage 3 unspecified (principal); D63.1 Anemia in chronic kidney disease; N39.0 Urinary tract infection, site not specified; N25.81 Secondary hyperparathyroidism of renal origin; M10.9 Gout, unspecified; E55.9 Vitamin D deficiency, unspecified; E78.2 Mixed hyperlipidemia
CPT/HCPCS: 36415; 80053; 80061; 81003; 82306; 82728; 83036; 83540; 83550; 83735; 83970; 84100; 84550; 85027

== ENCOUNTER → 2020-03-26 | Outpatient (CLI) | payer MEDICARE, BC ==
--- NOTE | 2020-03-26 12:51 | XR ---
EXAMINATION TYPE: XR chest 2V DATE OF EXAM: 03/26/2020 COMPARISON: Chest x-ray 01/07/2020 HISTORY: R06.02, R05 TECHNIQUE: Frontal and lateral views of the chest are obtained. FINDINGS: Patient is post median sternotomy. There is no focal air space opacity, pleural effusion, o r pneumothorax seen. The cardiac silhouette size is within normal limits, stable. There is elevati on of the right hemidiaphragm. The osseous structures are stable, old left-sided rib fractures appear healed, there is thoracic spondylosis. There are coronary artery calcifications. IMPRESSION: No acute cardiopulmonary process.
== END | disposition home or self-care (01) ==
LOC: RADXRMAIN 12:25
PROVIDERS: ATTEND Internal Medicine Hematology & Oncology
DX: R06.02 Shortness of breath (principal); R05 Cough; D50.0 Iron deficiency anemia secondary to blood loss (chronic); R19.01 Right upper quadrant abdominal swelling, mass and lump; D30.00 Benign neoplasm of unspecified kidney; R78.81 Bacteremia
CPT/HCPCS: 71046

== ENCOUNTER → 2020-04-27 | Outpatient (CLI) | payer MEDICARE, BC ==
--- NOTE | 2020-04-27 13:51 | US ---
EXAMINATION TYPE: US kidneys/renal and bladder DATE OF EXAM: 04/27/2020 COMPARISON: CT 2019 and 2017. Renal ultrasound 2018. CLINICAL HISTORY: N18.31 chronic kidney stage 3. CKD Patient had part of Left Kidney removed for CA. EXAM MEASUREMENTS: Right Kidney: 12.5 x 5.6 x 5.3 cm Left Kidney: 10.3 x 5.2 x 4.1 cm Right Kidney: No hydronephrosis or masses seen Left Kidney: No hydronephrosis or masses seen Bladder: Anechoic Bilateral Jets seen: No There is no evidence for hydronephrosis at this point in time. No nephrolithiasis is seen. No kirby s are identified on images saved. The urinary bladder is not greatly distended. IMPRESSION: No hydronephrosis noted bilaterally.
== END | disposition home or self-care (01) ==
LOC: RADUSWWP 12:46
PROVIDERS: ATTEND Internal Medicine
DX: N18.31 Chronic kidney disease, stage 3a (principal)
CPT/HCPCS: 76770

== ENCOUNTER → 2020-12-04 | Outpatient (CLI) | payer MEDICARE, BC ==
--- NOTE | 2020-12-04 13:21 | CT ---
EXAMINATION TYPE: CT cervical spine wo con DATE OF EXAM: 12/04/2020 COMPARISON: HISTORY: Neck pain CT DLP: 666 mGycm Automated exposure control for dose reduction was used. TECHNIQUE: CT scan of the cervical spine is obtained without contrast, axial images are obtained, sa gittal and coronal reformatted images are also reviewed. FINDINGS: There is a grade 1 anterolisthesis of C3 on C4. There is multilevel hypertrophic and degene rative change with facet arthropathy. Curvature of the spine noted. Apical pleural thickening noted. Atherosclerotic change of the carotid arteries At C2-C3 there is facet arthropathy on the right. C3-C4 there is bilateral uncovertebral joint hypertrophy and facet arthropathy greater on the right. C4-C5 there is no evidence of disc herniation or canal stenosis. Mild uncovertebral joint hypertrophy . Neural foramina patent. C5-C6 there is mild hypertrophic changes anteriorly. Neural foramina patent. Mild posterior cervical spondylosis. At C6-C7 neural foramina are patent. No obvious canal stenosis. Neural foramina. Patent. C7-T1 there is no foraminal encroachment. Assessment spinal canal limited. Persistent. IMPRESSION: 1. Multilevel degenerative disc disease with facet arthropathy and uncovertebral joint hypertrophy. A ssessment spinal canal is limited due to resolution and artifact. Mild posterior compression of the t hecal sac at levels C4-5 and C5-C6. Recommend follow-up MRI.
== END | disposition home or self-care (01) ==
LOC: RADCTMAIN 12:45
PROVIDERS: ATTEND Family Medicine
DX: M54.12 Radiculopathy, cervical region (principal); M50.30 Other cervical disc degeneration, unspecified cervical region; M46.93 Unspecified inflammatory spondylopathy, cervicothoracic region; G95.20 Unspecified cord compression
CPT/HCPCS: 72125

== ENCOUNTER 2021-01-12 16:39 | Inpatient (IN) | payer MEDICARE, BC ==
[2021-01-12 18:06] LABS: Anisocytosis Slight; Basophils # (A) 0.1 k/uL (0-0.2); Basophils % (A) 1 %; Eosinophils # (A) 0.3 k/uL (0-0.7); Eosinophils % (A) 3 %; HCT 34.1 % (39.0-53.0); HGB 11.2 gm/dL (13.0-17.5); Lymphocytes # (A) 1.2 k/uL (1.0-4.8); Lymphocytes % (A) 10 %; MCHC 32.8 g/dL (31.0-37.0); MCV 91.4 fL (80.0-100.0); Mean Platelet Volume 7.6; Monocytes # (A) 1.2 k/uL (0-1.0); Monocytes % (A) 10 %; Neutrophils # (A) 8.6 k/uL (1.3-7.7); Neutrophils % (A) 73 %; Platelet Count 409 k/uL (150-450); RBC 3.73 m/uL (4.30-5.90); RDW 17.4 % (11.5-15.5); WBC 11.9 k/uL (3.8-10.6)
[2021-01-12 18:22] LABS: Albumin 4.6 g/dL (3.5-5.0); Calcium 10.2 mg/dL (8.4-10.2); Potassium 4.2 mmol/L (3.5-5.1); Total Bilirubin 0.3 mg/dL (0.2-1.3); Total Protein 7.4 g/dL (6.3-8.2)
[2021-01-12 18:27] LABS: INR 1.1 (<1.2); Partial Thromboplastin Time 26.5 sec (22.0-30.0); Prothrombin Time 11.2 sec (9.0-12.0)
[2021-01-12] MEDS ORDERED: ASPIRIN 81 MG PO STA (19:32)
[2021-01-12] MEDS ORDERED: NITROGLYCERIN OINT 1 INCH/GM PACKET TOPICAL STA (19:32)
--- NOTE | 2021-01-12 19:40 | ED ---
General Adult HPI - General Chief complaint: Recheck/Abnormal Lab/Rx Stated complaint: cramping in hands & feet Time Seen by Provider: 01/12/21 18:48 Source: patient Mode of arrival: ambulatory Limitations: no limitations - History of Present Illness Initial comments: This 85-year-old male presents with a complaint of cramping sensation to his bilateral arms and bilateral legs which occurred tonight. He also relates having a history of some chest pain which is more pressure-like in the midsternal region over the last couple days. He took nitroglycerin twice 2 days ago. He took some Tums this past evening. He does have a history of cardiac disease including a CABG 18 years ago. He denies any known cardiac stents. He states that it is been quite some time since she's had a stress test. He normally follows up with cardiology. He does note a history of atrial fibrillation in the past as well. He denies any current leg pain or swelling or arm pain or swelling. He currently is on eliquis. No other complaints or modifying factors. - Related Data Home Medications Medication Instructions Recorded Confirmed Montelukast [Singulair] 10 mg PO HS 12/21/14 12/30/20 Pravastatin Sodium 40 mg PO HS 02/07/16 12/30/20 Acetaminophen Tab [Tylenol] 1,000 mg PO BID 03/17/17 12/30/20 Insulin Aspart [NovoLOG Flexpen] See Protocol SQ AC-TID PRN 11/12/17 12/30/20 Budesonide-Formot 160-4.5 Mcg 2 puff INHALATION RT-BID PRN 11/13/17 12/30/20 [Symbicort 160-4.5 Mcg Inhaler] lisinopriL [Zestril] 5 mg PO DAILY 01/26/18 12/30/20 Cyanocobalamin (Vitamin B-12) 1,000 mcg PO TUFR 01/15/19 12/30/20 [Vitamin B-12] Insulin Detemir [Levemir Flextouch] 35 units SQ BID 02/10/19 12/30/20 [place]-3 Fatty Acids/Fish Oil [Fish 1 cap PO DAILY 07/16/19 12/30/20 Oil 1,000 mg Softgel] Insulin Aspart [NovoLOG Flexpen] 12 units SQ TID-W/MEALS 08/29/19 12/30/20 Fluticasone Nasal [place] [Flonase 2 spray EA NOSTRIL DAILY PRN 11/04/19 12/30/20 Nasal [place]] Furosemide [Lasix] 80 mg PO DAILY 11/04/19 12/30/20 Nitroglycerin Sl Tabs [Nitrostat] 0.4 mg SUBLINGUAL Q5M PRN 11/04/19 12/30/20 Zinc 50 mg PO DAILY 11/04/19 12/30/20 amLODIPine [Norvasc] 5 mg PO HS 11/04/19 12/30/20 metFORMIN HCL 500 mg PO BID 11/04/19 12/30/20 Furosemide [Lasix] 40 mg PO BID 01/09/20 12/30/20 Previous Rx's Medication Instructions Recorded Pantoprazole [Protonix] 40 mg PO DAILY #30 tab 03/21/17 Escitalopram Oxalate [Lexapro] 10 mg PO HS #0 05/23/19 Sucralfate [Carafate] 1 gm PO ACHS #120 tablet 11/07/19 Apixaban [Eliquis] 2.5 mg PO BID #60 tab 11/09/19 Allergies Allergy/AdvReac Type Severity Reaction Status Date / Time Penicillins Allergy Unknown Rash/Hives Verified 01/12/21 17:39 atorvastatin calcium Allergy Unknown Verified 01/12/21 17:39 [From Lipitor] ceftriaxone [From Rocephin] Allergy Rash/Hives Verified 01/12/21 17:39 clonazepam [From Klonopin] Allergy Hallucinati Verified 01/12/21 17:39 ons codeine Allergy Hallucinati Verified 01/12/21 17:39 ons haloperidol [From Haldol] Allergy Hallucinati Verified 01/12/21 17:39 ons haloperidol lactate Allergy Hallucinati Verified 01/12/21 17:39 [From Haldol] ons hydromorphone HCl Allergy Hallucinati Verified 01/12/21 17:39 [From Dilaudid] ons methylphenidate HCl Allergy Hallucinati Verified 01/12/21 17:39 [From Ritalin] ons morphine Allergy Hallucinati Verified 01/12/21 17:39 ons propofol Allergy Hallucinati Verified 01/12/21 17:39 ons quetiapine fumarate Allergy Hallucinati Verified 01/12/21 17:39 [From Seroquel] ons Sulfa (Sulfonamide Allergy Unknown Verified 01/12/21 17:39 Antibiotics) vancomycin Allergy Unknown Verified 01/12/21 17:39 ativan AdvReac Unknown Uncoded 01/12/21 17:39 Review of Systems ROS Statement: Those systems with pertinent positive or pertinent negative responses have been documented in the HPI. ROS Other: All systems not noted in ROS Statement are negative. Past Medical History Past Medical History: Atrial Fibrillation, Coronary Artery Disease (CAD), Cancer, Heart Failure, COPD, CVA/TIA, Diabetes Mellitus, Eye Disorder, GERD/Reflux, GI Bleed, Hyperlipidemia, Hypertension, Myocardial Infarction (NM), Osteoarthritis (OA), Pneumonia, Renal Disease, Skin Disorder, Sleep Apnea/CPAP/BIPAP, Vascular Disorder Additional Past Medical History / Comment(s): osteomylitis, CAP, mild exacerbation CHF, tracheopurulent bronchitis, hypoxic respiratory failure, paroxysmal Afib, moderate mitral and tricuspid regurg and severe pulmonary HTN. Other hx: Anemia, blood and iron transfusions, right leg cellulitis, IDDM type II, neuropathy bilateral hands/feet, chronic diabetic wounds, 2013 L renal cancer with surgery - partial nephrectomy/spleenectomy/distal portion of pancreas removed at [facility], TIA, [place] unknown date, BPH, gastritis, small hiatal hernia, past discitis T9-T10, arthritis bilateral hands/back, TARIQ - does not tolerate his CPAP, CKD stage III/hyperkalemia, UTI, sepsis, PVD. pt follows up in wound clinic for diabetic ulcer on R foot, currently in a boot. Last Myocardial Infarction Date:: UNKNOWN History of Any Multi-Drug Resistant Organisms: MRSA Date of last positivie culture/infection: 10/02/19 MDRO Source:: RIGHTfoot Past Surgical History: Coronary Bypass/CABG, Heart Catheterization, Orthopedic Surgery Additional Past Surgical History / Comment(s): Partial L nephrectomy, distal pancreatectomy, splenectomy - at [id number] CABG - 3 vessel, EGD, colonoscopy, deviated septum surgery, skin/oral lesion removals, R carpal tunnel release, bilateral cataract removal, bilateral laser eye surgery for "leakage", Past Anesthesia/Blood Transfusion Reactions: Previous Problems w/ Anesthesia Additional Past Anesthesia/Blood Transfusion Reaction / Comment(s): 'TROUBLE CO JENNIFER OUT OF ANESTHESIA' - DELUSIONAL. Patient has received blood in past without reaction. Past Psychological History: Anxiety, Depression Smoking Status: Former smoker Past Alcohol Use History: None Reported Past Drug Use History: None Reported - Past Family History Father Family Medical History: Myocardial Infarction (NM) Additional Family Medical History / Comment(s): Father of a NM at the age of 65yrs. Mother Family Medical History: COPD General Exam - General Exam Comments Initial Comments: GENERAL: The patient is well nourished and well hydrated. VITAL SIGNS: Heart rate, blood pressure, respiratory rate reviewed as recorded in nurse's notes. EYES: Pupils are round and reactive. Extraocular movements are intact. No conjunctival / lid redness or swelling. ENT: No external evidence of injury, swelling, or ecchymosis. Airway is patent. Throat is clear. NECK: Nontender. No swelling or evidence of injury. No subcutaneous emphysema. Trachea is midline. No thyroid mass. HEART: Regular rate and rhythm. Good peripheral pulses. LUNGS/CHEST: Breath sounds clear and equal bilaterally. No rales, rhonchi, or wheezes. No ecchymosis, subcutaneous emphysema, or tenderness. ABDOMEN: Abdomen soft without tenderness. No palpable masses or organomegaly. No peritoneal signs. No abdominal wall swelling or ecchymosis. EXTREMITIES: No extremity tenderness. Normal muscle tone and function. No thoracolumbar tenderness. NEUROLOGIC: Sensation is grossly intact. Cranial nerve exam reveals face is symmetrical, tongue is midline, speech is clear. SKIN: No abrasions or ecchymosis is noted. No induration or masses noted. PSYCHIATRIC: Alert and oriented. Appropriate behavior and judgment. Limitations: no limitations Course Vital Signs 01/12/21 01/12/21 01/12/21 17:35 18:54 18:57 Temperature 97.9 F Pulse Rate 65 61 60 Respiratory 18 17 16 Rate Blood Pressure 152/66 137/71 O2 Sat by Pulse 98 99 Oximetry 01/12/21 01/12/21 19:00 19:04 Temperature Pulse Rate 62 63 Respiratory 18 16 Rate Blood Pressure 137/71 137/71 O2 Sat by Pulse 97 100 Oximetry Medical Decision Making - Medical Decision Making The patient was seen and examined. All diagnostics were reviewed. He is placed on a athletic monitor and no ectopy is identified. The EKG shows bradycardia at a rate of 56 and he is also an atrial fibrillation with slow ventricular response. There is no evidence of ST elevation. There is no acute significant ST-T wave changes identified. There may be some low voltage QRS. The QRS duration is 114 and QTc interval is 440. The patient also has a chest x-ray pending. The laboratory showed a significant elevation of the troponin at 8. The other labs are essentially within normal limits with minor abnormalities. Patient has given an aspirin and also some Nitropaste. Noted on blood thinners are given as he is on oral blood thinners regularly. Is felt that he likely does have a non-ST elevation myocardial infarction. Case is discussed with Dr. Noble and he is agreeable with admission with cardiology to consult. Currently patient is in no distress waiting transport to floor. - Lab Data Result diagrams: 01/12/21 17:54 01/12/21 17:54 Lab Results 01/12/21 01/12/21 01/12/21 Range/Units 17:54 17:54 17:54 WBC 11.9 H (3.8-10.6) k/uL RBC 3.73 L (4.30-5.90) m/uL Hgb 11.2 L (13.0-17.5) gm/dL Hct 34.1 L (39.0-53.0) % MCV 91.4 (80.0-100.0) fL MCH 30.0 (25.0-35.0) pg MCHC 32.8 (31.0-37.0) g/dL RDW 17.4 H (11.5-15.5) % Plt Count 409 (150-450) k/uL MPV 7.6 Neutrophils % 73 % Lymphocytes % 10 % Monocytes % 10 % Eosinophils % 3 % Basophils % 1 % Neutrophils # 8.6 H (1.3-7.7) k/uL Lymphocytes # 1.2 (1.0-4.8) k/uL Monocytes # 1.2 H (0-1.0) k/uL Eosinophils # 0.3 (0-0.7) k/uL Basophils # 0.1 (0-0.2) k/uL Anisocytosis Slight PT 11.2 (9.0-12.0) sec INR 1.1 (<1.2) APTT 26.5 (22.0-30.0) sec Sodium 135 L (137-145) mmol/L Potassium 4.2 (3.5-5.1) mmol/L Chloride 97 L (98-107) mmol/L Carbon Dioxide 29 (22-30) mmol/L Anion Gap 9 mmol/L BUN 31 H (9-20) mg/dL Creatinine 1.08 (0.66-1.25) mg/dL Est GFR (CKD-EPI)AfAm 73 (>60 ml/min/1.73 sqM) Est GFR (CKD-EPI)NonAf 63 (>60 ml/min/1.73 sqM) Glucose 121 H (74-99) mg/dL Calcium 10.2 (8.4-10.2) mg/dL Total Bilirubin 0.3 (0.2-1.3) mg/dL AST 67 H (17-59) U/L ALT 30 (4-49) U/L Alkaline Phosphatase 65 (38-126) U/L Troponin I (0.000-0.034) ng/mL Total Protein 7.4 (6.3-8.2) g/dL Albumin 4.6 (3.5-5.0) g/dL 01/12/21 Range/Units 17:54 WBC (3.8-10.6) k/uL RBC (4.30-5.90) m/uL Hgb (13.0-17.5) gm/dL Hct (39.0-53.0) % MCV (80.0-100.0) fL MCH (25.0-35.0) pg MCHC (31.0-37.0) g/dL RDW (11.5-15.5) % Plt Count (150-450) k/uL MPV Neutrophils % % Lymphocytes % % Monocytes % % Eosinophils % % Basophils % % Neutrophils # (1.3-7.7) k/uL Lymphocytes # (1.0-4.8) k/uL Monocytes # (0-1.0) k/uL Eosinophils # (0-0.7) k/uL Basophils # (0-0.2) k/uL Anisocytosis PT (9.0-12.0) sec INR (<1.2) APTT (22.0-30.0) sec Sodium (137-145) mmol/L Potassium (3.5-5.1) mmol/L Chloride (98-107) mmol/L Carbon Dioxide (22-30) mmol/L Anion Gap mmol/L BUN (9-20) mg/dL Creatinine (0.66-1.25) mg/dL Est GFR (CKD-EPI)AfAm (>60 ml/min/1.73 sqM) Est GFR (CKD-EPI)NonAf (>60 ml/min/1.73 sqM) Glucose (74-99) mg/dL Calcium (8.4-10.2) mg/dL Total Bilirubin (0.2-1.3) mg/dL AST (17-59) U/L ALT (4-49) U/L Alkaline Phosphatase (38-126) U/L Troponin I 8.060 H* (0.000-0.034) ng/mL Total Protein (6.3-8.2) g/dL Albumin (3.5-5.0) g/dL Disposition Clinical Impression: Non-ST elevated myocardial infarction, Cramps, extremity, Chest pain Disposition: ADMITTED IP TO THIS [facility] Condition: Serious Is patient prescribed a controlled substance at d/c from ED?: No Referrals: Luis Quesada Jr, [Primary Care Provider] - 1-2 days Time of Disposition: 19:39 Decision Date: 01/12/21 Decision Time: 19:39
--- NOTE | 2021-01-12 20:59 | XR ---
EXAMINATION TYPE: XR chest 2V DATE OF EXAM: 01/12/2021 CLINICAL HISTORY: possible infiltrate. TECHNIQUE: Frontal and lateral view of the chest. COMPARISON: 03/26/2020 FINDINGS: Sternotomy wires. Redemonstrated elevation of the right hemidiaphragm. The cardiac silhoue tte is again prominent and unchanged. Pulmonary vasculature is normal. Chronic interstitial coarsenin g. There is no focal air space opacity. No pleural effusion. No pneumothorax seen. Degenerative roth ges of the spine. Chronic appearing left fracture deformities of the left ribs. IMPRESSION: No acute cardiopulmonary process.
[2021-01-12] MEDS ORDERED: NITROGLYCERIN SL TABS 0.4 MG TAB SUBLINGUAL PRN ×2 (21:03→21:06)
[2021-01-12] MEDS ORDERED: IPRATROPIUM-ALBUTEROL 3 ML NEB INHALATION PRN (21:06)
[2021-01-12] MEDS ORDERED: polyethylene glycoL 3350 17 GM POWD.PACK PO PRN (21:06)
[2021-01-12] MEDS ORDERED: ACETAMINOPHEN TAB 500 MG TAB PO PRN (21:06)
[2021-01-12] MEDS ORDERED: ALBUTEROL NEBULIZED 2.5 MG/3 ML INHALATION PRN (21:06)
[2021-01-12 21:46] LABS: Glucose,Whole Blood 144 mg/dL (75-99)
[2021-01-12] MEDS ORDERED: HEPARIN SODIUM 1,000 UN/ML (10ML VL) IV ONE (23:16)
[2021-01-12] MEDS ORDERED: HEPARIN SODIUM 1,000 UN/ML (10ML VL) IV PRN (23:16)
[2021-01-12] MEDS ORDERED: HEPARIN SOD,PORK IN 0.45% NACL 25,000 UNIT in 0.45% NACL 1 250ML.BAG IV SCH (23:30)
[2021-01-12] MEDS: NITROGLYCERIN OINT 1 INCH/GM PACKET TOPICAL SCH (23:54)
[2021-01-13 05:21] LABS: Anisocytosis Slight; Basophils # (A) 0.1 k/uL (0-0.2); Basophils % (A) 1 %; Eosinophils # (A) 0.6 k/uL (0-0.7); Eosinophils % (A) 5 %; HCT 33.3 % (39.0-53.0); HGB 10.5 gm/dL (13.0-17.5); Hypochromasia Moderate; Lymphocytes # (A) 0.9 k/uL (1.0-4.8); Lymphocytes % (A) 8 %; MCH 29.9 pg (25.0-35.0); MCHC 31.5 g/dL (31.0-37.0); MCV 94.7 fL (80.0-100.0); Mean Platelet Volume 10.6; Monocytes # (A) 0.7 k/uL (0-1.0); Monocytes % (A) 6 %; Neutrophils % (A) 77 %; Platelet Count 291 k/uL (150-450); RBC 3.52 m/uL (4.30-5.90); RDW 17.5 % (11.5-15.5); WBC 11.7 k/uL (3.8-10.6)
[2021-01-13 05:43] LABS: INR 1.1 (<1.2); Partial Thromboplastin Time 55.2 sec (22.0-30.0); Prothrombin Time 11.4 sec (9.0-12.0)
[2021-01-13 06:25] LABS: Magnesium 1.9 mg/dL (1.6-2.3)
[2021-01-13] MEDS: NITROGLYCERIN OINT 1 INCH/GM PACKET TOPICAL SCH ×2 (06:45→13:50)
[2021-01-13] MEDS: PANTOPRAZOLE 40 MG TABLET PO SCH ×2 (06:45→17:18)
[2021-01-13] MEDS ORDERED: metFORMIN 500 MG TAB PO SCH (07:30)
[2021-01-13] MEDS: SYMBICORT 160-4.5 MCG INHALER INHALATION SCH ×2 (08:58→20:40)
[2021-01-13] MEDS ORDERED: NON FORMULARY DRUG (Omega-3 Fatty Acids/Fish Oil [Fish Oil 1,000 Mg Softgel] 1 EACH Capsul PO SCH (09:00)
[2021-01-13] MEDS ORDERED: amLODIPine 5 MG TAB PO SCH (09:00)
[2021-01-13] MEDS ORDERED: PRAVASTATIN SODIUM 40 MG TAB PO SCH (09:00)
[2021-01-13] MEDS ORDERED: ASPIRIN 325 MG TAB PO SCH (09:00)
[2021-01-13 09:04] LABS: Glucose,Whole Blood 268 mg/dL (75-99)
[2021-01-13] MEDS: INSULIN ASPART (NovoLOG) 100 UNIT/ML VIAL SQ SCH ×7 (09:29→20:53)
[2021-01-13] MEDS: INSULIN DETEMIR (LEVEMIR) 100 UNIT/ML SYR SQ SCH ×2 (09:30→20:52)
[2021-01-13] MEDS: FUROSEMIDE 40 MG TAB PO SCH ×2 (09:37→17:26)
[2021-01-13] MEDS: ESCITALOPRAM 10 MG TAB PO SCH (09:37)
[2021-01-13] MEDS: CYANOCOBALAMIN 500 MCG TAB PO SCH (09:37)
[2021-01-13] MEDS: MONTELUKAST 10 MG TAB PO SCH (09:37)
[2021-01-13] MEDS: MAGNESIUM OXIDE 400 MG TAB PO SCH (09:37)
[2021-01-13] MEDS: lisinopriL 5 MG TAB PO SCH (09:37)
[2021-01-13] MEDS ORDERED: NITROGLYCERIN SL TABS 0.4 MG TAB SUBLINGUAL PRN ×2 (09:57→14:52)
[2021-01-13] MEDS ORDERED: SODIUM CHLORIDE 0.9% 1,000 ML in EMPTY BAG 1 BAG IV ONE (09:57)
[2021-01-13] MEDS ORDERED: ALPRAZolam 0.5 MG TAB PO PRN (09:57)
[2021-01-13] MEDS ORDERED: ATORVASTATIN 80 MG TAB PO STA (09:57)
[2021-01-13] MEDS ORDERED: ASPIRIN 325 MG TAB PO STA (09:57)
[2021-01-13] MEDS ORDERED: ALPRAZolam 0.25 MG TAB PO PRN (09:57)
[2021-01-13 10:05] LABS: Chol/HDL Ratio 3.36; LDL Cholesterol,Calculated 85.2 mg/dL (0.0-131.0); VLDL Calculation 20.8 mg/dL (5.00-40.00)
--- NOTE | 2021-01-13 11:54 | ECHOF ---
Referral Reason:cp MEASUREMENTS -------- HEIGHT: 162.6 cm WEIGHT: 91.2 kg BP: RVIDd: 3.7 cm (< 3.3) IVSd: 1.3 cm (0.6 - 1.1) LVIDd: 5.5 cm (3.9 - 5.3) LVPWd: 1.6 cm (0.6 - 1.1) IVSs: 1.6 cm LVIDs: 4.6 cm LVPWs: 1.8 cm LA Diam: 4.6 cm (2.7 - 3.8) Ao Diam: 3.9 cm (2.0 - 3.7) AV Cusp: 1.5 cm (1.5 - 2.6) MV EXCURSION: 21.085 mm (> 18.000) MV EF SLOPE: 88 mm/s (70 - 150) RAP: 5.00 mmHg RVSP: 56.23 mmHg FINDINGS -------- Sinus rhythm. This was a techncally difficult study with suboptimal views, , Lumason utilized for enhancement of im ages. The left ventricular size is normal. Overall left ventricular systolic function is moderately impai red with, an EF between 35 - 40 %. Apical septum LV wall motion is hypokinetic. Anterseptal Hypo kinesis Atypical septal wall motion The right ventricle is mildly enlarged. LA is moderately dilated 34-39 ml/m2 The right atrial size is normal. 5.0mg OF Lumason UTLIZED: 2 OR MORE WALL SEGMENTS NOT VISUALIZED. There is mild aortic valve sclerosis. There is no evidence of aortic regurgitation. Moderate mitral regurgitation is present. Mild tricuspid regurgitation present. There is moderate pulmonary hypertension. The right ventric ular systolic pressure, as measured by Doppler, is 56.23mmHg. Trace/mild (physiologic) pulmonic regurgitation. There is no pericardial effusion. CONCLUSIONS -------- 1. The left ventricular size is normal. 2. Overall left ventricular systolic function is moderately impaired with, an EF between 35 - 40 %. 3. Apical septum LV wall motion is hypokinetic. 4. Anterseptal Hypokinesis 5. Atypical septal wall motion 6. The right ventricle is mildly enlarged. 7. LA is moderately dilated 34-39 ml/m2 8. The right atrial size is normal. 9. 5.0mg OF Lumason UTLIZED: 2 OR MORE WALL SEGMENTS NOT VISUALIZED. 10. There is mild aortic valve sclerosis. 11. Moderate mitral regurgitation is present. 12. Mild tricuspid regurgitation present. 13. There is moderate pulmonary hypertension. 14. The right ventricular systolic pressure, as measured by Doppler, is 56.23mmHg. 15. Trace/mild (physiologic) pulmonic regurgitation. 16. There is no pericardial effusion. ASSISTANT DIRECTOR OF FINANCIAL AID: Radha Scruggs RDCS
[2021-01-13 12:05] LABS: Glucose,Whole Blood 266 mg/dL (75-99)
--- NOTE | 2021-01-13 12:24 | P.CRDCN ---
History of Present Illness Consult date: 01/13/21 History of present illness: HISTORY OF PRESENT ILLNESS: This is a 85 year old male with a past medical history significant for chronic atrial fibrillation (not on anticoagulation due to history of, coronary artery disease with history of CABG in 2001 (LARSEN to LAD. Radial to RCA and saphenous vein graft to OM1), hypertension, obstructive sleep apnea without CPAP use, GERD, diabetes, and COPD. Patient follows in the office with Dr. Lr. We have been asked to see the patient in consultation for abnormal troponins. Patient examined at the bedside. Patient states yesterday he was having cramps in his legs. He thought he might be having a stroke so he came to the ER for further evaluation. The patient denied having any chest pain yesterday or today. He does report having some heartburn yesterday which he states is unusual for him. He de nies shortness of breath. Denies dizziness or lightheadedness. Denies palpitations EKG reveals atrial fibrillation with nonspecific ST-T wave changes. Controlled ventricular rate Chest xray negative for acute process Laboratory data: WBC 11.7. Hemoglobin 10.5. Platelet count 291. Sodium 135. Potassium 4.2. BUN 31. Creatinine 1.08. Troponin 8.068. 17.1. 18.1. Current home cardiac medications include pravastatin 40 mg daily, lisinopril 5 mg daily, Lasix 40 mg twice a day, amlodipine 5 mg daily Echocardiogram completed revealed ejection fraction 35-40%, apical septum LV wall hypokinesis, anterior septal hypokinesis, atypical septal wall motion, moderate mitral regurgitation, mild tricuspid regurgitation, moderate pulmonary hypertension REVIEW OF SYSTEMS: At the time of my exam: CONSTITUTIONAL: Denies fever or chills. HEENT: Denies blurred vision, vision changes, or eye pain. Denies hemoptysis CARDIOVASCULAR: Denies chest pain. Denies orthopnea. Denies PND. Denies palpitations RESPIRATORY: Denies shortness of breath. GASTROINTESTINAL: Denies abdominal pain. Denies nausea or vomiting. HEMATOLOGIC: Denies bleeding disorders. GENITOURINARY: Denies any blood in urine. SKIN: Denies pruitis. Denies rash. PHYSICAL EXAM: VITAL SIGNS: Reviewed. GENERAL: Well-developed in no acute distress. HEENT: Head is normocephalic. Pupils are equal, round. Sclerae anicteric. Mucous membranes of the mouth are moist. Neck supple. No JVD or thyromegaly LUNGS: Respirations even and unlabored. Lungs essentially clear to auscultation bilaterally. HEART: Irregular rate and rhythm. S1 and S2 heard. ABDOMEN: Soft. Nondistended. Nontender. EXTREMITIES: Normal range of motion. No clubbing or cyanosis. Peripheral pulses intact. No lower extremity edema NEUROLOGIC: Awake and alert. Oriented x 3. 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 Lr Further recommendations pending patient course Nurse practitioner note has been reviewed by physician. Signing provider agrees with the documented findings, assessment, and plan of care. Past Medical History Past Medical History: Atrial Fibrillation, Coronary Artery Disease (CAD), Cancer, Heart Failure, COPD, CVA/TIA, Diabetes Mellitus, Eye Disorder, GERD/Reflux, GI Bleed, Hyperlipidemia, Hypertension, Myocardial Infarction ([place]), Osteoarthritis (OA), Pneumonia, Renal Disease, Skin Disorder, Sleep Apnea/CPAP/BIPAP, Vascular Disorder Additional Past Medical History / Comment(s): Osteomylitis, CAP, mild exacerba tion CHF, tracheopurulent bronchitis, hypoxic respiratory failure, paroxysmal Afib, moderate mitral and tricuspid regurg and severe pulmonary HTN. Other hx: Anemia, blood and iron transfusions, right leg cellulitis, IDDM type II, neuropathy bilateral hands/feet, chronic diabetic wounds, 2013 renal cancer with surgery - partial nephrectomy/spleenectomy/distal portion of pancreas removed at [facility], TIA, [place] unknown date, BPH, gastritis, small hiatal hernia, past discitis T9-T10, arthritis bilateral hands/back, TARIQ - does not tolerate his CPAP, CKD stage III/hyperkalemia, UTI, sepsis, PVD. pt follows up in wound clinic for diabetic ulcer on R foot, currently in a boot. Last Myocardial Infarction Date:: UNKNOWN History of Any Multi-Drug Resistant Organisms: MRSA Date of last positivie culture/infection: 10/02/19 MDRO Source:: RIGHT foot Past Surgical History: Coronary Bypass/CABG, Heart Catheterization, Orthopedic Surgery Additional Past Surgical History / Comment(s): Partial L nephrectomy, distal pancreatectomy, splenectomy - at [place], 2000 CABG - 3 vessel, EGD, colonoscopy, deviated septum surgery, skin/oral lesion removals, R carpal tunnel release, bilateral cataract removal, bilateral laser eye surgery for "leakage", Past Anesthesia/Blood Transfusion Reactions: Previous Problems w/ Anesthesia Additional Past Anesthesia/Blood Transfusion Reaction / Comment(s): 'TROUBLE COMING OUT OF ANESTHESIA' - DELUSIONAL. Patient has received blood in past without reaction. Past Psychological History: Anxiety, Depression Additional Psychological History / Comment(s): Pt resides with his spouse. He has a cane and a walker and a glucometer. He no longer drives, his spouse drives and manages his medications. 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 Smoking Status: Never smoker Past Alcohol Use History: None Reported Additional Past Alcohol Use History / Comment(s): Patient states he smoked briefly [id number] and it was only socially. No marijuana or illicit drug use. No alcohol use. Past Drug Use History: None Reported - Past Family History Father Family Medical History: Myocardial Infarction ([place]) Additional Family Medical History / Comment(s): Father of a [place] at the age of 65yrs. Mother Family Medical History: COPD Medications and Allergies Home Medications Medication Instructions Recorded Confirmed Type Montelukast [Singulair] 10 mg PO DAILY 12/21/14 01/12/21 History Pravastatin Sodium 40 mg PO DAILY 02/07/16 01/12/21 History Acetaminophen Tab [Tylenol] 1,000 mg PO Q8H PRN 03/17/17 01/12/21 History Insulin Aspart [NovoLOG Flexpen] See Protocol SQ AC-TID PRN 11/12/17 01/12/21 History Budesonide-Formot 160-4.5 Mcg 2 puff INHALATION RT-BID 11/13/17 01/12/21 History [Symbicort 160-4.5 Mcg Inhaler] lisinopriL [Zestril] 5 mg PO DAILY 01/26/18 01/12/21 History Insulin Detemir [Levemir Flextouch 37 units SQ BID 02/10/19 01/13/21 History Pen] Insulin Aspart [NovoLOG Flexpen] 12 units SQ TID-W/MEALS 08/29/19 01/12/21 History Nitroglycerin Sl Tabs [Nitrostat] 0.4 mg SUBLINGUAL Q5M PRN 11/04/19 01/12/21 History amLODIPine [Norvasc] 5 mg PO DAILY 11/04/19 01/12/21 History metFORMIN HCL 500 mg PO BID 11/04/19 01/12/21 History Furosemide [Lasix] 40 mg PO BID 01/09/20 01/12/21 History Albuterol Nebulized [Ventolin 2.5 mg INHALATION RT-QID PRN 01/12/21 01/12/21 History Nebulized] Cyanocobalamin [Vitamin B-12] 500 mcg PO DAILY 01/12/21 01/12/21 History Escitalopram Oxalate [Lexapro] 10 mg PO DAILY 01/12/21 01/12/21 History Ipratropium-Albuterol Nebulize 3 ml INHALATION RT-QID PRN 01/12/21 01/12/21 History [Duoneb 0.5 mg-3 mg/3 ml Soln] Magnesium Oxide [Magox 400] 400 mg PO DAILY 01/12/21 01/12/21 History Pantoprazole [Protonix] 40 mg PO BID 01/12/21 01/12/21 History Polyethylene Glycol 3350 [Miralax] 17 gm PO DAILY PRN 01/12/21 01/12/21 History Allergies Allergy/AdvReac Type Severity Reaction Status Date / Time Penicillins Allergy Unknown Rash/Hives Verified 01/12/21 20:22 atorvastatin calcium Allergy Unknown Verified 01/12/21 20:22 [From Lipitor] ceftriaxone [From Rocephin] Allergy Rash/Hives Verified 01/12/21 20:22 clonazepam [From Klonopin] Allergy Hallucinati Verified 01/12/21 20:22 ons codeine Allergy Hallucinati Verified 01/12/21 20:22 ons haloperidol [From Haldol] Allergy Hallucinati Verified 01/12/21 20:22 ons haloperidol lactate Allergy Hallucinati Verified 01/12/21 20:22 [From Haldol] ons hydromorphone HCl Allergy Hallucinati Verified 01/12/21 20:22 [From Dilaudid] ons methylphenidate HCl Allergy Hallucinati Verified 01/12/21 20:22 [From Ritalin] ons morphine Allergy Hallucinati Verified 01/12/21 20:22 ons propofol Allergy Hallucinati Verified 01/12/21 20:22 ons quetiapine fumarate Allergy Hallucinati Verified 01/12/21 20:22 [From Seroquel] ons Sulfa (Sulfonamide Allergy Unknown Verified 01/12/21 20:22 Antibiotics) vancomycin Allergy Unknown Verified 01/12/21 20:22 ativan AdvReac Unknown Uncoded 01/12/21 17:39 Physical Exam Vitals: Vital Signs Temp Pulse Pulse Resp BP BP Pulse Ox 01/13/21 11:36 97.9 F 78 18 152/67 98 01/13/21 08:00 97.8 F 64 18 177/74 92 L 01/13/21 04:00 97.9 F 69 16 130/49 93 L 01/13/21 00:00 98.1 F 60 16 157/75 98 01/12/21 22:30 98.0 F 63 16 166/73 98 01/12/21 21:47 64 20 154/79 97 01/12/21 21:05 66 20 153/90 100 01/12/21 19:04 63 16 137/71 100 01/12/21 19:00 62 18 137/71 97 01/12/21 18:57 60 16 137/71 99 01/12/21 18:54 61 17 01/12/21 17:35 97.9 F 65 18 152/66 98 Intake and Output 01/12/21 01/13/21 01/13/21 22:59 06:59 14:59 Other: Voiding Method Toilet Toilet # Voids 1 1 1 Weight 92.986 kg 91.5 kg Results 01/13/21 05:00 01/12/21 17:54 Cardiac Enzymes 01/12/21 01/12/21 01/12/21 Range/Units 17:54 17:54 21:52 AST 67 H (17-59) U/L Troponin I 8.060 H* 17.100 H* (0.000-0.034) ng/mL 01/13/21 Range/Units 00:30 AST (17-59) U/L Troponin I 18.100 H* (0.000-0.034) ng/mL Coagulation 01/12/21 01/13/21 Range/Units 17:54 05:00 PT 11.2 11.4 (9.0-12.0) sec APTT 26.5 55.2 H (22.0-30.0) sec Lipids 01/13/21 Range/Units 05:00 Triglycerides 104.0 (0.0-149.0) mg/dL Cholesterol 151 (0-200) mg/dL HDL Cholesterol 45.0 (40.0-60.0) mg/dL Cholesterol/HDL Ratio 3.36 CBC 01/12/21 01/13/21 Range/Units 17:54 05:00 WBC 11.9 H 11.7 H (3.8-10.6) k/uL RBC 3.73 L 3.52 L (4.30-5.90) m/uL Hgb 11.2 L 10.5 L (13.0-17.5) gm/dL Hct 34.1 L 33.3 L (39.0-53.0) % Plt Count 409 291 (150-450) k/uL Comprehensive Metabolic Panel 01/12/21 Range/Units 17:54 Sodium 135 L (137-145) mmol/L Potassium 4.2 (3.5-5.1) mmol/L Chloride 97 L (98-107) mmol/L Carbon Dioxide 29 (22-30) mmol/L BUN 31 H (9-20) mg/dL Creatinine 1.08 (0.66-1.25) mg/dL Glucose 121 H (74-99) mg/dL Calcium 10.2 (8.4-10.2) mg/dL AST 67 H (17-59) U/L ALT 30 (4-49) U/L Alkaline Phosphatase 65 (38-126) U/L Total Protein 7.4 (6.3-8.2) g/dL Albumin 4.6 (3.5-5.0) g/dL Current Medications Generic Name Dose Route Start Last Admin Trade Name Freq PRN Reason Stop Dose Admin Acetaminophen 1,000 mg 01/12/21 21:06 Acetaminophen Tab 500 Mg Tab PO Q8H PRN Mild Pain or Fever > 100.5 Albuterol Sulfate 2.5 mg 01/12/21 21:06 Albuterol Nebulized 2.5 Mg/3 Ml INHALATION RT-QID PRN Shortness Of Breath Albuterol/Ipratropium 3 ml 01/12/21 21:06 Ipratropium-Albuterol 3 Ml Neb INHALATION RT-QID PRN Shortness Of Breath Alprazolam 0.25 mg 01/13/21 09:57 Alprazolam 0.25 Mg Tab PO Q6HR PRN Mild Anxiety Alprazolam 0.5 mg 01/13/21 09:57 Alprazolam 0.5 Mg Tab PO Q6HR PRN Moderate Anxiety Amlodipine Besylate 5 mg 01/13/21 09:00 01/13/21 09:36 Amlodipine 5 Mg Tab PO 5 mg DAILY [facility]ALL Administration Aspirin 81 mg 01/14/21 09:00 Aspirin 81 Mg PO DAILY [facility]ALL Budesonide/Formoterol Fumarate 2 puff 01/13/21 08:00 01/13/21 08:58 Symbicort 160-4.5 Mcg Inhaler INHALATION 2 puff RT-BID [facility]ALL Administration Cyanocobalamin 500 mcg 01/13/21 09:00 01/13/21 09:37 Cyanocobalamin 500 Mcg Tab PO 500 mcg DAILY [facility] Administration Escitalopram Oxalate 10 mg 01/13/21 09:00 01/13/21 09:37 Escitalopram 10 Mg Tab PO 10 mg DAILY [facility] Administration Furosemide 40 mg 01/13/21 09:00 01/13/21 09:37 Furosemide 40 Mg Tab PO 40 mg BID [facility] Administration Heparin Sodium (Porcine) 0 unit 01/12/21 23:16 Heparin Sodium 1,000 Un/Ml (10ml Vl) IV PER PROTOCOL PRN Low PTT Protocol Heparin Sodium/Sodium Chloride 250 mls @ 10 mls/hr 01/12/21 23:30 01/12/21 23:47 25,000 unit/ Sodium Chloride IV 10.754 units/kg/hr .Q24H MARSHALL 10 mls/hr Administration Protocol 10.754 UNITS/KG/HR Sodium Chloride 1,000 ml/ IV 1,000 mls @ 91.5 mls/hr 01/13/21 09:57 01/13/21 10:35 Solution IV 01/13/21 20:52 91.5 mls/hr .[id number] ONE Administration 1 ML/KG/HR Heparin Sodium (Porcine) 10, 1,001 mls @ 999 mls/hr 01/14/21 07:00 000 unit/ Sodium Chloride IRRIGATION 01/14/21 23:00 ONCE PRN INTRA-OP Heparin Sodium (Porcine) 2,500 250.5 mls @ 250 mls/hr 01/14/21 07:00 unit/ Sodium Chloride IRRIGATION 01/14/21 23:00 ONCE PRN INTRA-OP Insulin Aspart 12 unit 01/13/21 07:30 01/13/21 11:17 Insulin Aspart (Novolog) 100 Unit/Ml Vial SQ Not Given TID-W/MEALS [facility] Insulin Aspart 0 unit 01/13/21 07:30 01/13/21 11:17 Insulin Aspart (Novolog) 100 Unit/Ml Vial SQ Not Given ACHS [facility] Protocol Insulin Detemir 35 unit 01/13/21 09:00 01/13/21 09:30 Insulin Detemir (Levemir) 100 Unit/Ml Syr SQ Not Given BID [facility] Lisinopril 5 mg 01/13/21 09:00 01/13/21 09:37 Lisinopril 5 Mg Tab PO 5 mg DAILY [facility] Administration Magnesium Oxide 400 mg 01/13/21 09:00 01/13/21 09:37 Magnesium Oxide 400 Mg Tab PO 400 mg DAILY [facility] Administration Metformin HCl 500 mg 01/13/21 07:30 01/13/21 09:29 Metformin 500 Mg Tab PO Not Given AC-BID [facility] Montelukast Sodium 10 mg 01/13/21 09:00 01/13/21 09:37 Montelukast 10 Mg Tab PO 10 mg DAILY [facility] Administration Nitroglycerin 1 inch 01/13/21 00:00 01/13/21 06:45 Nitroglycerin Oint 1 Inch/Gm Packet TOPICAL 1 inch Q6HR [facility] Administration Nitroglycerin 0.4 mg 01/12/21 21:06 Nitroglycerin Sl Tabs 0.4 Mg Tab SUBLINGUAL Q5M PRN Chest Pain Pantoprazole Sodium 40 mg 01/13/21 07:30 01/13/21 06:45 Pantoprazole 40 Mg Tablet PO 40 mg AC-BID [facility] Administration Polyethylene Glycol 17 gm 01/12/21 21:06 Polyethylene Glycol 3350 17 Gm Powd.Pack PO DAILY PRN Constipation Pravastatin Sodium 40 mg 01/13/21 09:00 01/13/21 09:38 Pravastatin Sodium 40 Mg Tab PO 40 mg DAILY [facility] Administration Intake and Output 01/12/21 01/13/21 01/13/21 22:59 06:59 14:59 Other: Voiding Method Toilet Toilet # Voids 1 1 1 Weight 92.986 kg 91.5 kg 01/13/21 05:00 01/12/21 17:54
[2021-01-13] MEDS ORDERED: LIDOCAINE 1% INJ 10MG/ML (20 ML MDV) ONE (12:26)
[2021-01-13] MEDS ORDERED: VERAPAMIL 2.5 MG/ML 2 ML AMP ONE (12:26)
[2021-01-13] MEDS ORDERED: fentaNYL (PF) 50 MCG/ML 2 ML AMP ONE (12:27)
[2021-01-13] MEDS ORDERED: HEPARIN SODIUM 1,000 UN/ML (10ML VL) ONE (12:27)
[2021-01-13] MEDS ORDERED: IV FLUID CONTINUATION 1,000 ML IV ONE (12:45)
[2021-01-13] MEDS ORDERED: fentaNYL (PF) 50 MCG/ML 2 ML AMP IV ONE (13:01)
[2021-01-13] MEDS ORDERED: LIDOCAINE 1% INJ 10MG/ML (20 ML MDV) SQ ONE (13:07)
[2021-01-13] MEDS ORDERED: HEPARIN SODIUM 1,000 UN/ML (10ML VL) IV ONE ×2 (13:25→14:23)
[2021-01-13] MEDS ORDERED: CLOPIDOGREL 75 MG TAB ONE (13:29)
[2021-01-13] MEDS ORDERED: CLOPIDOGREL 75 MG TAB PO ONE (13:34)
[2021-01-13] MEDS ORDERED: IOPAMIDOL-370 125ML BTL INJ ONE (13:34)
[2021-01-13] MEDS ORDERED: NITROGLYCERIN 1000MCG/10ML SYRINGE INTRACORON ONE ×2 (13:50→14:10)
[2021-01-13] MEDS ORDERED: IOPAMIDOL-370 100ML BTL INJ ONE ×2 (14:01→14:36)
--- NOTE | 2021-01-13 14:10 | P.HPIM ---
History of Present Illness H&P Date: 01/13/21 Chief Complaint: Chest pain This is an 85-year-old gentleman with past medical history of atrial fibrillation, CAD, [place], cancer, CHF, COPD, CVA/TIA, diabetes mellitus, gastroeso phageal reflux disease, renal disease, sleep apnea and multiple other medical issues presented to the ER with complaints of midsternal chest pressure radiating to bilateral arms and legs 2 days. Reports cramping sensation and frequent "normal "heartburn. Attempted nitroglycerin twice ,2 days ago, followed by [facility] the following night. Chest x-ray reported no acute cardiopulmonary process. EKG reported atrial fibrillation, controlled ventricular rate-heart rates in the 50s, nonspecific ST, T-wave abnormality. Troponins 8.06, 17.1, 18.1. Echo pending. Afebrile, WBC 11.7, hemoglobin 10.5, platelets 291, INR 1.1, sodium 135 potassium 4.2, BUN 31, creatinine 1.08, baseline, blood sugars controlled, AST 67. Triglycerides 104, cholesterol 151, cholesterol 85.2. Received aspirin, Nitropaste, anticoagulation with heparin drip initiated. Cardiology consulted. Currently denies chest pain, palpitations or shortness of breath. Denies lightheadedness, dizziness or focal deficits. Review of Systems ROS Statement: Those systems with pertinent positive or pertinent negative responses have been documented in the HPI. ROS Other: All systems not noted in ROS Statement are negative. Past Medical History Past Medical History: Atrial Fibrillation, Coronary Artery Disease (CAD), Cancer , Heart Failure, COPD, CVA/TIA, Diabetes Mellitus, Eye Disorder, GERD/Reflux, GI Bleed, Hyperlipidemia, Hypertension, Myocardial Infarction ([place]), Osteoarthritis (OA), Pneumonia, Renal Disease, Skin Disorder, Sleep Apnea/CPAP/BIPAP, Vascular Disorder Additional Past Medical History / Comment(s): Osteomylitis, CAP, mild exacerbation CHF, tracheopurulent bronchitis, hypoxic respiratory failure, paroxysmal Afib, moderate mitral and tricuspid regurg and severe pulmonary HTN. Other hx: Anemia, blood and iron transfusions, right leg cellulitis, IDDM type II, neuropathy bilateral hands/feet, chronic diabetic wounds, 2014 L renal cancer with surgery - partial nephrectomy/spleenectomy/distal portion of pancreas removed at [facility], TIA, [place] unknown date, BPH, gastritis, small hiatal hernia, past discitis T9-T10, arthritis bilateral hands/back, TARIQ - does not tolerate his CPAP, CKD stage III/hyperkalemia, UTI, sepsis, PVD. pt follows up in wound clinic for diabetic ulcer on R foot, currently in a boot. Last Myocardial Infarction Date:: UNKNOWN History of Any Multi-Drug Resistant Organisms: MRSA Date of last positivie culture/infection: 10/02/19 MDRO Source:: RIGHT foot Past Surgical History: Coronary Bypass/CABG, Heart Catheterization, Orthopedic Surgery Additional Past Surgical History / Comment(s): Partial L nephrectomy, distal pancreatectomy, splenectomy - at [place], 2000 CABG - 3 vessel, EGD, colon oscopy, deviated septum surgery, skin/oral lesion removals, R carpal tunnel release, bilateral cataract removal, bilateral laser eye surgery for "leakage", Past Anesthesia/Blood Transfusion Reactions: Previous Problems w/ Anesthesia Additional Past Anesthesia/Blood Transfusion Reaction / Comment(s): 'TROUBLE COMING OUT OF ANESTHESIA' - DELUSIONAL. Patient has received blood in past without reaction. Past Psychological History: Anxiety, Depression Additional Psychological History / Comment(s): Pt resides with his spouse. He has a cane and a walker and a glucometer. He no longer drives, his spouse drives and manages his medications. 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 Smoking Status: Never smoker Past Alcohol Use History: None Reported Additional Past Alcohol Use History / Comment(s): Patient states he smoked briefly [id number] and it was only socially. No marijuana or illicit drug use. No alcohol use. Past Drug Use History: None Reported - Past Family History Father Family Medical History: Myocardial Infarction ([place]) Additional Family Medical History / Comment(s): Father of a [place] at the age of 65yrs. Mother Family Medical History: COPD Medications and Allergies Home Medications Medication Instructions Recorded Confirmed Type Montelukast [Singulair] 10 mg PO DAILY 12/21/14 01/12/21 History Pravastatin Sodium 40 mg PO DAILY 02/07/16 01/12/21 History Acetaminophen Tab [Tylenol] 1,000 mg PO Q8H PRN 03/17/17 01/12/21 History Insulin Aspart [NovoLOG Flexpen] See Protocol SQ AC-TID PRN 11/12/17 01/12/21 History Budesonide-Formot 160-4.5 Mcg 2 puff INHALATION RT-BID 11/13/17 01/12/21 History [Symbicort 160-4.5 Mcg Inhaler] lisinopriL [Zestril] 5 mg PO DAILY 01/26/18 01/12/21 History Insulin Detemir [Levemir Flextouch 37 units SQ BID 02/10/19 01/13/21 History Pen] Insulin Aspart [NovoLOG Flexpen] 12 units SQ TID-W/MEALS 08/29/19 01/12/21 History Nitroglycerin Sl Tabs [Nitrostat] 0.4 mg SUBLINGUAL Q5M PRN 11/04/19 01/12/21 History amLODIPine [Norvasc] 5 mg PO DAILY 11/04/19 01/12/21 History metFORMIN HCL 500 mg PO BID 11/04/19 01/12/21 History Furosemide [Lasix] 40 mg PO BID 01/09/20 01/12/21 History Albuterol Nebulized [Ventolin 2.5 mg INHALATION RT-QID PRN 01/12/21 01/12/21 His tory Nebulized] Cyanocobalamin [Vitamin B-12] 500 mcg PO DAILY 01/12/21 01/12/21 History Escitalopram Oxalate [Lexapro] 10 mg PO DAILY 01/12/21 01/12/21 History Ipratropium-Albuterol Nebulize 3 ml INHALATION RT-QID PRN 01/12/21 01/12/21 History [Duoneb 0.5 mg-3 mg/3 ml Soln] Magnesium Oxide [Magox 400] 400 mg PO DAILY 01/12/21 01/12/21 History Pantoprazole [Protonix] 40 mg PO BID 01/12/21 01/12/21 History Polyethylene Glycol 3350 [Miralax] 17 gm PO DAILY PRN 01/12/21 01/12/21 History Allergies Allergy/AdvReac Type Severity Reaction Status Date / Time Penicillins Allergy Unknown Rash/Hives Verified 01/12/21 20:22 atorvastatin calcium Allergy Unknown Verified 01/12/21 20:22 [From Lipitor] ceftriaxone [From Rocephin] Allergy Rash/Hives Verified 01/12/21 20:22 clonazepam [From Klonopin] Allergy Hallucinati Verified 01/12/21 20:22 ons codeine Allergy Hallucinati Verified 01/12/21 20:22 ons haloperidol [From Haldol] Allergy Hallucinati Verified 01/12/21 20:22 ons haloperidol lactate Allergy Hallucinati Verified 01/12/21 20:22 [From Haldol] ons hydromorphone HCl Allergy Hallucinati Verified 01/12/21 20:22 [From Dilaudid] ons methylphenidate HCl Allergy Hallucinati Verified 01/12/21 20:22 [From Ritalin] ons morphine Allergy Hallucinati Verified 01/12/21 20:22 ons propofol Allergy Hallucinati Verified 01/12/21 20:22 ons quetiapine fumarate Allergy Hallucinati Verified 01/12/21 20:22 [From Seroquel] ons Sulfa (Sulfonamide Allergy Unknown Verified 01/12/21 20:22 Antibiotics) vancomycin Allergy Unknown Verified 01/12/21 20:22 ativan AdvReac Unknown Uncoded 01/12/21 17:39 Physical Exam Vitals: Vital Signs Temp Pulse Pulse Resp BP BP Pulse Ox 01/13/21 11:36 97.9 F 78 18 152/67 98 01/13/21 08:00 97.8 F 64 18 177/74 92 L 01/13/21 04:00 97.9 F 69 16 130/49 93 L 01/13/21 00:00 98.1 F 60 16 157/75 98 01/12/21 22:30 98.0 F 63 16 166/73 98 01/12/21 21:47 64 20 154/79 97 01/12/21 21:05 66 20 153/90 100 01/12/21 19:04 63 16 137/71 100 01/12/21 19:00 62 18 137/71 97 01/12/21 18:57 60 16 137/71 99 01/12/21 18:54 61 17 01/12/21 17:35 97.9 F 65 18 152/66 98 Intake and Output 01/12/21 01/13/21 01/13/21 22:59 06:59 14:59 Other: Voiding Method Toilet Toilet # Voids 1 1 1 Weight 92.986 kg 91.5 kg GENERAL: Sitting up in bed, no acute distress HEENT: PERRLA EOMI, poor dentition NECK: No JVD. No thyroid enlargement. No LNs CARDIOVASCULAR: S1, S2 regular. Systolic murmur at RSB RESPIRATION: Breath sounds diminished in the bases. mild rhonchi, diffuse bibasilar crackles, no wheezes, ABDOMEN: Obese, Soft, mildly distended, nontender . No guarding. no masses palpable. No ascites, No hepatosplenomegaly.Positive bowel sounds. EXTREMITIES: No edema, no calf pain PSYCHIATRY: Alert and oriented X3, mood and affect normal. NERVOUS SYSTEM: Cranial N 2-12 grossly normal. Moves all 4 limbs. No focal deficits. Strength and sensation grossly intact.. Lymphatic system. No LN neck axilla or groin. Results CBC & Chem 7: 01/13/21 05:00 01/12/21 17:54 Labs: Abnormal Lab Results - Last 24 Hours (Table) 01/12/21 01/12/21 01/12/21 Range/Units 17:54 17:54 17:54 WBC 11.9 H (3.8-10.6) k/uL RBC 3.73 L (4.30-5.90) m/uL Hgb 11.2 L (13.0-17.5) gm/dL Hct 34.1 L (39.0-53.0) % RDW 17.4 H (11.5-15.5) % Neutrophils # 8.6 H (1.3-7.7) k/uL Lymphocytes # (1.0-4.8) k/uL Monocytes # 1.2 H (0-1.0) k/uL APTT (22.0-30.0) sec Sodium 135 L (137-145) mmol/L Chloride 97 L (98-107) mmol/L BUN 31 H (9-20) mg/dL Glucose 121 H (74-99) mg/dL POC Glucose (mg/dL) (75-99) mg/dL AST 67 H (17-59) U/L Troponin I 8.060 H* (0.000-0.034) ng/mL 01/12/21 01/12/21 01/13/21 Range/Units 21:45 21:52 00:30 WBC (3.8-10.6) k/uL RBC (4.30-5.90) m/uL Hgb (13.0-17.5) gm/dL Hct (39.0-53.0) % RDW (11.5-15.5) % Neutrophils # (1.3-7.7) k/uL Lymphocytes # (1.0-4.8) k/uL Monocytes # (0-1.0) k/uL APTT (22.0-30.0) sec Sodium (137-145) mmol/L Chloride (98-107) mmol/L BUN (9-20) mg/dL Glucose (74-99) mg/dL POC Glucose (mg/dL) 144 H (75-99) mg/dL AST (17-59) U/L Troponin I 17.100 H* 18.100 H* (0.000-0.034) ng/mL 01/13/21 01/13/21 01/13/21 Range/Units 05:00 05:00 08:59 WBC 11.7 H (3.8-10.6) k/uL RBC 3.52 L (4.30-5.90) m/uL Hgb 10.5 L (13.0-17.5) gm/dL Hct 33.3 L (39.0-53.0) % RDW 17.5 H (11.5-15.5) % Neutrophils # 9.0 H (1.3-7.7) k/uL Lymphocytes # 0.9 L (1.0-4.8) k/uL Monocytes # (0-1.0) k/uL APTT 55.2 H (22.0-30.0) sec Sodium (137-145) mmol/L Chloride (98-107) mmol/L BUN (9-20) mg/dL Glucose (74-99) mg/dL POC Glucose (mg/dL) 268 H (75-99) mg/dL AST (17-59) U/L Troponin I (0.000-0.034) ng/mL 01/13/21 Range/Units 12:03 WBC (3.8-10.6) k/uL RBC (4.30-5.90) m/uL Hgb (13.0-17.5) gm/dL Hct (39.0-53.0) % RDW (11.5-15.5) % Neutrophils # (1.3-7.7) k/uL Lymphocytes # (1.0-4.8) k/uL Monocytes # (0-1.0) k/uL APTT (22.0-30.0) sec Sodium (137-145) mmol/L Chloride (98-107) mmol/L BUN (9-20) mg/dL Glucose (74-99) mg/dL POC Glucose (mg/dL) 266 H (75-99) mg/dL AST (17-59) U/L Troponin I (0.000-0.034) ng/mL Thrombosis Risk Factor Assmnt - Choose All That Apply Any of the Below Risk Factors Present?: Yes Each Factor Represents 1 point: Abnormal pulmonary function (COPD), Obesity (BMI >25) Other Risk Factors: Yes Each Risk Factor Represents 3 Points: Age 75 years or older Other congenital or acquired thrombophilia - If yes, enter type in comment: No Thrombosis Risk Factor Assessment Total Risk Factor Score: 5 Thrombosis Risk Factor Assessment Level: High Risk Assessment and Plan Assessment: ACUTE NSTEMI 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 COPD Obstructive sleep apnea, noncompliant with CPAP Gastroesophageal reflux disease Diabetes mellitus type 2 Diabetic neuropathy Chronic Heart failure, systolic dysfunction with diminished ejection fraction 45-50% Hx of 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 Echo results pending.Anticoagulated on heparin drip. Evaluated by cardiology and scheduled for cardiac catheterization this afternoon. Prognosis guarded given multiple complex medical issues. The impression and plan of care has been dictated as directed. : I performed a history and examination of this patient, discussed the same with the dictator. I agree with the dictator's note ,documented as a scribe. Any additional findings or plans will be noted.
[2021-01-13] MEDS ORDERED: ATROPINE SULFATE 0.1 MG/ML 10ML SYRINGE IV PRN (14:52)
[2021-01-13] MEDS ORDERED: RX INFO: IV CONTRAST WAS GIVEN 1 EACH MISC MISCELLANE PRN (14:52)
[2021-01-13] MEDS ORDERED: ZOLPIDEM 5 MG TAB PO PRN (14:52)
[2021-01-13] MEDS ORDERED: MAG HYDROX/AL HYDROX/SIMETH 30 ML CUP PO PRN (14:52)
[2021-01-13] MEDS ORDERED: SODIUM CHLORIDE 0.9% 1,000 ML IV SCH (15:00)
--- NOTE | 2021-01-13 16:15 | PTCA ---
PERCUTANEOUSTRANS CORORONARY ANGIOGRAPHY Mr. Carson is an 85-year-old male with known history of coronary artery disease status post coronary artery bypass grafting in 2002 who presented with an acute non STEMI and was found to have an acutely occluded saphenous vein graft to the obtuse marginal branch. In view of that, recommendation made regarding an angioplasty and stenting. The procedure as well as the risks and complications were discussed with the patient who is in full understanding and agreement. PROCEDURE: A 6-English EBU 3.75 guiding catheter introduced into the system. After cannulating the left main, a 0.014 balanced medium weight J-wire was advanced in the vessel but could not cross the total occlusion of the obtuse marginal branch. At that point, the wire was removed and a 0.014 Whisper J-wire with the help of straight microcatheter was able to cross the total occlusion and positioned distally. Subsequently, the wire was exchanged through the microcatheter. At that point the microcatheter was removed. Subsequently another 0.014 balanced medium weight J- wire was advanced and positioned in the distal left circumflex. Subsequent to that, and 2.0 x 12 mm NC Trek balloon was advanced and inflation proximally up to 10 atmospheres were done. That balloon was removed and subsequently a 2.5 NC Trek balloon was advanced and inflation in the proximal segment of the total occlusion were done at a maximum of 10 atmospheres. There was still an area of a significant stenosis. At that point, the balloon was removed and a 3.0 x 12 mm NC Trek balloon was advanced and inflation at a maximum 14 atmospheres was successful in opening the vessel. At that point, the balloon was removed and a 2.0 x 12 mm NC Trek balloon was advanced and inflation in the obtuse marginal branch 2 were done at maximum of 8 atmospheres. Following that, the balloon was removed and a 2.0 x 12 mm Trek balloon was advanced and inflation was done in the mid segment of the obtuse marginal branch at maximum of 10 atmospheres. After removing that balloon, a 2.0 x 12 mm NC Trek balloon was advanced and inflation at 12 atmospheres were done. Following that, the balloon was removed and attempts to advance a 2.25 x 23 mm Xience Skypoint point were unsuccessful. That stent was removed and the wire in the distal left circumflex was removed and subsequently a 6- English The Athlete Empirea catheter was advanced and with the help of the The Athlete Empirea catheter, the stent was advanced, deployed and post dilated at 16 atmospheres. Following that, the balloon was removed and a 2.5 x 23 mm Xience Skypoint stent was deployed proximal to the first one and was dilated at 16 atmospheres. Following that, the balloon was removed and a 3.25 x 15 mm NC Trek balloon was advanced and one inflation at 12 atmospheres in the proximal segment of the stent was performed. After the last inflation, after appropriate wait, the balloon and the guidewire were withdrawn back in the guiding catheter. Images were obtained repeated. Those images reveal stable successful stenting. At that point, the guiding catheter, the balloon and the guidewire were removed. The sheath was removed. Hemostasis was obtained with deployment of an Angio-Seal. There was no immediate complication. Patient returned to his room in stable condition. Of note, the patient received 9000 units of intravenous heparin. His ACT was followed and he received an oral loading dose of clopidogrel. RESULTS: Successful recanalization of a subtotally occluded second obtuse marginal branch with reduction of stenosis from 99% to 0%. RECOMMENDATIONS: Patient will be continued on aspirin, Plavix, beta toyin, zayra inhibitors and statins. The importance of dual antiplatelet treatment were discussed with the patient and his family and they are in full understanding and agreement. Duration of sedation: 1 hour 34 minutes. MMSKYEL / SAMANTHAN: [id number] / MTDAdrian
--- NOTE | 2021-01-13 16:15 | LTR ---
DATE OF SERVICE: 01/13/[address] Quesada: I had the pleasure of performing coronary angiography and coronary angioplasty and stenting on Mr. Carson at [facility] on the 09 of January and a full copy of procedure note will be forwarded to you. In brief, he underwent successful recanalization of his 2nd obtuse marginal branch. I am hopeful this procedure will stabilize his status Thank you again for allowing me to participate in his care. Sincerely, DAQUAN / SAMANTHAN: [id number] /
--- NOTE | 2021-01-13 16:19 | CC ---
CARDIAC CATHETERIZATION REPORT Mr. Carson is an 85-year-old male with known history of coronary artery disease, status post coronary artery bypass grafting in 2001, history of chronic persistent atrial fibrillation, hypertension, hyperlipidemia and diabetes mellitus who presented with evidence of [id number]-elevation myocardial infarction. He was evaluated by Dr. Anaya. Recommendation was made regarding cardiac catheterization. The procedure as well as its risks and complications were discussed with the patient, who was in full understanding and agreement. PROCEDURE: Patient was brought to the tender labor in a fasting, semi-sedated state after receiving fentanyl and Benadryl and achieving a moderate conscious sedated state. Using Xylocaine anesthesia and Seldinger technique, a 6-Nepalese sheath was introduced in the right femoral artery. Selective right and left coronary angiography was performed using 6-Nepalese, 4 bend right and left Irina catheters. Multiple views were taken of the arteries, including hemiaxial views. Following that, 6-Nepalese and right Irina was used to cannulate the radial bypass to the RCA, the saphenous vein graft to the obtuse marginal branch and LARSEN to the LAD. Images of the grafts were obtained. Following that, a 6-Nepalese tight pigtail catheter was introduced into the left ventricle and pressures were calculated. Following that, catheter was removed and images were reviewed. FINDINGS: FLUOROSCOPY: There was severe calcification involving all the coronary arteries. LEFT MAIN: This is a large-sized vessel, bifurcating into left circumflex and left anterior descending artery. Left main has about 10% plaque distally. LEFT ANTERIOR DESCENDING ARTERY: This is a large-sized vessel that proximally has a heavily calcified area, with an area of stenosis up to 35% at the takeoff of the first septal burner tender. The vessel is totally occluded distal to the takeoff of the first diagonal branch. There is a 99% stenosis prior to the diagonal branch takeoff. The diagonal branch is patent. the diagonal has an area of stenosis of about 80% in the vessel. The vessel beyond that is smaller in caliber. LEFT CIRCUMFLEX: This is a nondominant vessel giving rise to 3 obtuse marginal branches. The first one is small in caliber. At the takeoff of the second obtuse marginal branch there is a 90% stenosis. The flow into the second diagonal branch is very slow and there is a 99% stenosis proximally. There is retrograde filling through the graft. Distal circumflex has a diffuse tubular lesion of about 90% prior to the takeoff of the small third obtuse marginal branch. RIGHT CORONARY ARTERY: This vessel is totally occluded in mid segment with no significant antegrade flow. RADIAL BYPASS TO THE RCA: The proximal and distal anastomotic sites are patent. The flow into the RCA is brisk. The RCA is diffusely diseased. SAPHENOUS VEIN GRAFT TO THE OBTUSE MARGINAL BRANCH: This graft is subtotally occluded proximally with very minimal antegrade flow with an area of stenosis up to 99% in a diffuse pattern. LARSEN TO THE LAD: The distal anastomotic site is patent. The flow into the LAD is brisk. The LAD is diffusely diseased. LEFT VENTRICULOGRAM: Left ventriculogram was not performed. HEMODYNAMICS: There was no gradient across the aortic valve. The left ventricular end- diastolic pressure was 16-20 mmHg. CONCLUSION: 1. Chronically occluded LAD with significant obstructive disease prior to the occlusion. 2. Subtotally occluded second obtuse marginal branch with heavily calcified vessel. 3. Chronically occluded right coronary artery. 4. Patent LARSEN to LAD. 5. Patent radial bypass to the RCA. 6. Acutely occluded saphenous vein graft to the obtuse marginal branch. RECOMMENDATIONS: In view of findings and anatomy, I have recommended proceeding with angioplasty and stenting of the [place] second obtuse marginal branch. The procedure, its risks and complications were discussed with the patient, who is in full understanding and agreement. MMODL / IJN: [id number] / MTDD
[2021-01-13] MEDS: FUROSEMIDE 20 MG TAB PO SCH (17:17)
[2021-01-13 17:18] LABS: Glucose,Whole Blood 248 mg/dL (75-99)
[2021-01-13 19:54] LABS: Glucose,Whole Blood 280 mg/dL (75-99)
[2021-01-13] MEDS: hydrALAZINE HCL 25 MG TAB PO SCH (20:53)
[2021-01-14 06:07] LABS: Glucose,Whole Blood 229 mg/dL (75-99)
[2021-01-14] MEDS ORDERED: HEPARIN SODIUM,PORCINE 10,000 UNIT in SODIUM CHLORIDE 0.9% 1,000 ML IRRIGATION PRN (07:00)
[2021-01-14] MEDS ORDERED: HEPARIN SODIUM,PORCINE 2,500 UNIT in SODIUM CHLORIDE 0.9% 250 ML IRRIGATION PRN (07:00)
[2021-01-14] MEDS: INSULIN ASPART (NovoLOG) 100 UNIT/ML VIAL SQ SCH ×7 (07:18→21:20)
[2021-01-14] MEDS: PANTOPRAZOLE 40 MG TABLET PO SCH ×2 (07:23→17:22)
[2021-01-14 08:08] LABS: Anisocytosis Slight; Basophils # (A) 0.1 k/uL (0-0.2); Basophils % (A) 1 %; Eosinophils # (A) 0.5 k/uL (0-0.7); Eosinophils % (A) 4 %; HCT 36.9 % (39.0-53.0); HGB 11.2 gm/dL (13.0-17.5); Hypochromasia Moderate; Lymphocytes # (A) 0.9 k/uL (1.0-4.8); Lymphocytes % (A) 7 %; MCH 28.7 pg (25.0-35.0); MCHC 30.2 g/dL (31.0-37.0); Mean Platelet Volume 8.5; Monocytes # (A) 0.9 k/uL (0-1.0); Monocytes % (A) 7 %; Neutrophils # (A) 10.2 k/uL (1.3-7.7); Neutrophils % (A) 79 %; Platelet Count 342 k/uL (150-450); RBC 3.89 m/uL (4.30-5.90); RDW 16.9 % (11.5-15.5); WBC 12.8 k/uL (3.8-10.6)
[2021-01-14 08:15] LABS: Calcium 10.4 mg/dL (8.4-10.2); Magnesium 2.2 mg/dL (1.6-2.3); Potassium 4.3 mmol/L (3.5-5.1)
[2021-01-14] MEDS: CYANOCOBALAMIN 500 MCG TAB PO SCH (08:16)
[2021-01-14] MEDS: ISOSORBIDE MONONITRATE ER 30 MG TAB.ER.24H PO SCH (08:16)
[2021-01-14] MEDS: CLOPIDOGREL 75 MG TAB PO SCH (08:16)
[2021-01-14] MEDS: MONTELUKAST 10 MG TAB PO SCH (08:16)
[2021-01-14] MEDS: MAGNESIUM OXIDE 400 MG TAB PO SCH (08:16)
[2021-01-14] MEDS: lisinopriL 5 MG TAB PO SCH (08:16)
[2021-01-14] MEDS: ASPIRIN 81 MG PO SCH (08:16)
[2021-01-14] MEDS: hydrALAZINE HCL 25 MG TAB PO SCH ×2 (08:17→21:20)
[2021-01-14] MEDS: ATORVASTATIN 40 MG TAB PO SCH (08:17)
[2021-01-14] MEDS: ESCITALOPRAM 10 MG TAB PO SCH (08:17)
[2021-01-14] MEDS: FUROSEMIDE 20 MG TAB PO SCH ×2 (08:17→17:22)
[2021-01-14] MEDS: INSULIN DETEMIR (LEVEMIR) 100 UNIT/ML SYR SQ SCH ×2 (08:18→21:19)
[2021-01-14] MEDS: SYMBICORT 160-4.5 MCG INHALER INHALATION SCH ×2 (08:55→20:22)
[2021-01-14 11:50] LABS: Glucose,Whole Blood 168 mg/dL (75-99)
--- NOTE | 2021-01-14 13:40 | P.PN ---
Subjective Progress Note Date: 01/14/21 HISTORY OF PRESENT ILLNESS: This is a 85 year old male with a past medical history significant for chronic atrial fibrillation (not on anticoagulation due to history of, coronary artery disease with history of CABG in 2001 (LARSEN to LAD. Radial to RCA and saphenous vein graft to OM1), hypertension, obstructive sleep apnea without CPAP use, GERD, diabetes, and COPD. Patient follows in the office with Dr. Lr. We have been asked to see the patient in consultation for abnormal troponins. Patient examined at the bedside. Patient states yesterday he was having cramps in his le gs. He thought he might be having a stroke so he came to the ER for further evaluation. The patient denied having any chest pain yesterday or today. He does report having some heartburn yesterday which he states is unusual for him. He denies shortness of breath. Denies dizziness or lightheadedness. Denies palpitations EKG reveals atrial fibrillation with nonspecific ST-T wave changes. Controlled ventricular rate Chest xray negative for acute process Laboratory data: WBC 11.7. Hemoglobin 10.5. Platelet count 291. Sodium 135. Potassium 4.2. BUN 31. Creatinine 1.08. Troponin 8.068. 17.1. 18.1. Current home cardiac medications include pravastatin 40 mg daily, lisinopril 5 mg daily, Lasix 40 mg twice a day, amlodipine 5 mg daily Echocardiogram completed revealed ejection fraction 35-40%, apical septum LV wall hypokinesis, anterior septal hypokinesis, atypical septal wall motion, moderate mitral regurgitation, mild tricuspid regurgitation, moderate pulmonary hypertension 01/14/2021 Patient examined this morning at the bedside. Patient is status post cardiac catheterization with stenting of the SVG to OM. Patient denies chest pain or pressure. He denies shortness of breath. Patient states he has been up ambulating to the bathroom without difficulty. Patient's right groin soft with no hematoma noted. Vital signs are stable. PHYSICAL EXAM: VITAL SIGNS: Reviewed. GENERAL: Well-developed in no acute distress. HEENT: Head is normocephalic. Pupils are equal, round. Sclerae anicteric. Mucous membranes of the mouth are moist. Neck supple. No JVD or thyromegaly LUNGS: Respirations even and unlabored. Lungs essentially clear to auscultation bilaterally. HEART: Irregular rate and rhythm. S1 and S2 heard. ABDOMEN: Soft. Nondistended. Nontender. EXTREMITIES: Normal range of motion. No clubbing or cyanosis. Peripheral puls es intact. No lower extremity edema NEUROLOGIC: Awake and alert. Oriented x 3. ASSESSMENT: Non-STEMI Coronary artery disease with previous CABG x 3 Chronic atrial fibrillation, not on joint terminal attack controller anticoagulation Hypertension TARIQ GERD Diabetes COPD PLAN: Continue current cardiac medications. Continue to monitor patient for an additional 24 hours. Anticipate discharge home tomorrow if patient remains stable Nurse practitioner note has been reviewed by physician. Signing provider agrees with the documented findings, assessment, and plan of care. Objective - Vital Signs Vital signs: Vital Signs Temp 97 F L 01/14/21 08:00 Pulse 50 L 01/14/21 12:00 Resp 16 01/14/21 12:00 BP 120/55 01/14/21 12:00 Pulse Ox 99 01/14/21 12:00 Intake & Output 01/13/21 01/14/21 01/14/21 18:59 06:59 18:59 Intake Total 540 240 Output Total 575 300 Balance -35 -300 240 Weight 91.5 kg Intake: IV 300 Oral 240 240 Output: Urine 575 300 Other: Voiding Method Toilet Toilet Toilet Urinal Urinal # Voids 2 2 - Labs CBC & Chem 7: 01/14/21 07:24 01/14/21 07:24 Labs: Abnormal Lab Results - Last 24 Hours (Table) 01/13/21 01/13/21 01/14/21 Range/Units 16:57 19:53 06:06 WBC (3.8-10.6) k/uL RBC (4.30-5.90) m/uL Hgb (13.0-17.5) gm/dL Hct (39.0-53.0) % MCHC (31.0-37.0) g/dL RDW (11.5-15.5) % Neutrophils # (1.3-7.7) k/uL Lymphocytes # (1.0-4.8) k/uL Carbon Dioxide (22-30) mmol/L BUN (9-20) mg/dL Glucose (74-99) mg/dL POC Glucose (mg/dL) 248 H 280 H 229 H (75-99) mg/dL Calcium (8.4-10.2) mg/dL 01/14/21 01/14/21 01/14/21 Range/Units 07:24 07:24 11:47 WBC 12.8 H (3.8-10.6) k/uL RBC 3.89 L (4.30-5.90) m/uL Hgb 11.2 L (13.0-17.5) gm/dL Hct 36.9 L (39.0-53.0) % MCHC 30.2 L (31.0-37.0) g/dL RDW 16.9 H (11.5-15.5) % Neutrophils # 10.2 H (1.3-7.7) k/uL Lymphocytes # 0.9 L (1.0-4.8) k/uL Carbon Dioxide 31 H (22-30) mmol/L BUN 30 H (9-20) mg/dL Glucose 191 H (74-99) mg/dL POC Glucose (mg/dL) 168 H (75-99) mg/dL Calcium 10.4 H (8.4-10.2) mg/dL
--- NOTE | 2021-01-14 14:46 | P.PN ---
Subjective Progress Note Date: 01/14/21 This is an 85-year-old gentleman with past medical history of atrial fibrillation, CAD, [place], cancer, CHF, COPD, CVA/TIA, diabetes mellitus, gastroesophageal reflux disease, renal disease, sleep apnea and multiple other medical issues presented to the ER with complaints of midsternal chest pressure radiating to bilateral arms and legs 2 days. Reports cramping sensation and frequent "normal "heartburn. Attempted nitroglycerin twice ,2 days ago, followed by [facility] the following night. Chest x-ray reported no acute cardiopulmonary process. EKG reported atrial fibrillation, controlled ventricular rate-heart rates in the 50s, nonspecific ST, T-wave abnormality. Troponins 8.06, 17.1, 18.1. Echo pending. Afebrile, WBC 11.7, hemoglobin 10.5, platelets 291, INR 1.1, sodium 135 potassium 4.2, BUN 31, creatinine 1.08, baseline, blood sugars controlled, AST 67. Triglycerides 104, cholesterol 151, cholesterol 85.2. Received aspirin, Nitropaste, anticoagulation with heparin drip initiated. Cardiology consulted. Currently denies chest pain, palpitations or shortness of breath. Denies lightheadedness, dizziness or focal deficits. 01/14/2021 underwent cardiac catheterization yesterday, subtotally occluded second obtuse marginal branch with stenting of the saphenous vein graft to the obtuse marginal branch. Echo reporting EF 35-40%, anterseptal hypokinesis, moderate mitral regurgitation, moderate pulmonary hypertension. Tolerated procedure well. Denies any chest pain, palpitations or shortness of breath. Denies cramping sensation currently. Ambulating tolerated exertion well. Bradycardic. Objective - Vital Signs Vital signs: Vital Signs Temp 97 F L 01/14/21 08:00 Pulse 50 L 01/14/21 12:00 Resp 16 01/14/21 13:43 BP 120/55 01/14/21 12:00 Pulse Ox 99 01/14/21 12:00 Intake & Output 01/13/21 01/14/21 01/14/21 18:59 06:59 18:59 Intake Total 540 240 Output Total 575 300 Balance -35 -300 240 Weight 91.5 kg Intake: IV 300 Oral 240 240 Output: Urine 575 300 Other: Voiding Method Toilet Toilet Toilet Urinal Urinal # Voids 2 2 - Exam GENERAL: Sitting up in chair, no acute distress HEENT: PERRLA EOMI, poor dentition NECK: No JVD. No thyroid enlargement. No LNs CARDIOVASCULAR: S1, S2 regular. Systolic murmur at RSB RESPIRATION: Breath sounds diminished in the bases. mild rhonchi, diffuse bibasilar crackles, no wheezes, ABDOMEN: Obese, Soft, mildly distended, nontender . No guarding. no masses palpable.Positive bowel sounds. EXTREMITIES: No edema, no calf pain, darkened scabbed lower extremities PSYCHIATRY: Alert and oriented X3, mood and affect normal. NERVOUS SYSTEM: Cranial N 2-12 grossly normal. Moves all 4 limbs. No focal deficits. Strength and sensation grossly intact.. Lymphatic system. No LN neck axilla or groin. - Labs CBC & Chem 7: 01/14/21 07:24 01/14/21 07:24 Labs: Abnormal Lab Results - Last 24 Hours (Table) 01/13/21 01/13/21 01/14/21 Range/Units 16:57 19:53 06:06 WBC (3.8-10.6) k/uL RBC (4.30-5.90) m/uL Hgb (13.0-17.5) gm/dL Hct (39.0-53.0) % MCHC (31.0-37.0) g/dL RDW (11.5-15.5) % Neutrophils # (1.3-7.7) k/uL Lymphocytes # (1.0-4.8) k/uL Carbon Dioxide (22-30) mmol/L BUN (9-20) mg/dL Glucose (74-99) mg/dL POC Glucose (mg/dL) 248 H 280 H 229 H (75-99) mg/dL Calcium (8.4-10.2) mg/dL 01/14/21 01/14/21 01/14/21 Range/Units 07:24 07:24 11:47 WBC 12.8 H (3.8-10.6) k/uL RBC 3.89 L (4.30-5.90) m/uL Hgb 11.2 L (13.0-17.5) gm/dL Hct 36.9 L (39.0-53.0) % MCHC 30.2 L (31.0-37.0) g/dL RDW 16.9 H (11.5-15.5) % Neutrophils # 10.2 H (1.3-7.7) k/uL Lymphocytes # 0.9 L (1.0-4.8) k/uL Carbon Dioxide 31 H (22-30) mmol/L BUN 30 H (9-20) mg/dL Glucose 191 H (74-99) mg/dL POC Glucose (mg/dL) 168 H (75-99) mg/dL Calcium 10.4 H (8.4-10.2) mg/dL Assessment and Plan Assessment: ACUTE NSTEMI, status post cardiac catheterization with stenting of the saphenous vein graft to OM. 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 Maintained on beta toyin, YUNIEL inhibitor, statin, and dual antiplatelet treatment with close monitoring of coags. Increase activity as tolerated. Discharge planning in progress for tomorrow pending cardiology final DC recommendations and clearance. The impression and plan of care has been dictated as directed. : I performed a history and examination of this patient, discussed the same with the dictator. I agree with the dictator's note ,documented as a scribe. Any additional findings or plans will be noted.
[2021-01-14 15:09] VITALS: BMI 28.1
[2021-01-14 17:06] LABS: Glucose,Whole Blood 173 mg/dL (75-99)
[2021-01-14 20:03] LABS: Glucose,Whole Blood 158 mg/dL (75-99)
[2021-01-15 04:56] VITALS: TEMP 97.9
[2021-01-15] MEDS: PANTOPRAZOLE 40 MG TABLET PO SCH (06:36)
[2021-01-15 07:17] LABS: Glucose,Whole Blood 258 mg/dL (75-99)
[2021-01-15] MEDS: INSULIN DETEMIR (LEVEMIR) 100 UNIT/ML SYR SQ SCH (07:56)
[2021-01-15] MEDS: ESCITALOPRAM 10 MG TAB PO SCH (07:56)
[2021-01-15] MEDS: ASPIRIN 81 MG PO SCH (07:56)
[2021-01-15] MEDS: INSULIN ASPART (NovoLOG) 100 UNIT/ML VIAL SQ SCH ×4 (07:56→12:05)
[2021-01-15] MEDS: hydrALAZINE HCL 25 MG TAB PO SCH (07:56)
[2021-01-15] MEDS: FUROSEMIDE 20 MG TAB PO SCH (07:57)
[2021-01-15] MEDS: CYANOCOBALAMIN 500 MCG TAB PO SCH (07:57)
[2021-01-15] MEDS: CLOPIDOGREL 75 MG TAB PO SCH (07:57)
[2021-01-15] MEDS: MONTELUKAST 10 MG TAB PO SCH (07:57)
[2021-01-15] MEDS: lisinopriL 5 MG TAB PO SCH (07:57)
[2021-01-15] MEDS: ISOSORBIDE MONONITRATE ER 30 MG TAB.ER.24H PO SCH (07:57)
[2021-01-15] MEDS: ATORVASTATIN 40 MG TAB PO SCH (07:57)
[2021-01-15] MEDS: MAGNESIUM OXIDE 400 MG TAB PO SCH (07:57)
[2021-01-15 08:06] VITALS: BP 160/70; PULSE 69; RESP 20
[2021-01-15] MEDS: SYMBICORT 160-4.5 MCG INHALER INHALATION SCH (08:55)
--- NOTE | 2021-01-15 11:19 | P.DS ---
Providers Date of admission: 01/12/21 21:04 Expected date of discharge: 01/15/21 Attending physician: Luis Quesada Consults: 01/12/21 21:04 Consult Physician Urgent Consulting Provider: Grzegorz Ambriz Consult Reason/Comments: nstemi Do you want consulting provider notified?: Yes 01/13/21 14:52 Consult Physician Routine Consulting Provider: [facility] Consult Reason/Comments: Post Interventional patient Do you want consulting provider notified?: Already Contacted Primary care physician: [facility] Course: Final Diagnoses: ACUTE NSTEMI, status post cardiac catheterization with stenting of the saphenous vein graft to OM. 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 at [facility] in 2013 Chronic kidney disease stage III Chronic anemia secondary to the above, iron deficient Hypertension Noncompliance by history Hyperlipidemia CVA Moderate pulmonary hypertension Moderate mitral regurgitation Hospital course:This is an 85-year-old gentleman with past medical history of atrial fibrillation, CAD, [place], cancer, CHF, COPD, CVA/TIA, diabetes mellitus, gastroesophageal reflux disease, renal disease, sleep apnea and multiple other medical issues presented to the ER with complaints of midsternal chest pressure radiating to bilateral arms and legs 2 days. Reports cramping sensation and frequent "normal "heartburn. Attempted nitroglycerin twice ,2 days ago, followed by [facility] the following night. Chest x-ray reported no acute cardiopulmonary process. EKG reported atrial fibrillation, controlled ventricular rate-heart rates in the 50s, nonspecific ST, T-wave abnormality. Troponins 8.06, 17.1, 18.1. Echo pending. Afebrile, WBC 11.7, hemoglobin 10.5, platelets 291, INR 1.1, sodium 135 potassium 4.2, BUN 31, creatinine 1.08, baseline, blood sugars controlled, AST 67. Triglycerides 104, cholesterol 151, cholesterol 85.2. Received aspirin, Nitropaste, anticoagulation with heparin drip initiated. Cardiology consulted. Currently denies chest pain, palpitations or shortness of breath. Denies lightheadedness, dizziness or focal deficits. 01/14/2021 underwent cardiac catheterization yesterday, subtotally occluded second obtuse marginal branch with stenting of the saphenous vein graft to the obtuse marginal branch. Echo reporting EF 35-40%, anterseptal hypokinesis, moderate mitral regurgitation, moderate pulmonary hypertension. Tolerated procedure well. Denies any chest pain, palpitations or shortness of breath. Denies cramping sensation currently. Ambulating tolerated exertion well. Bradycardic. Significant clinical improvement. Cleared by cardiology for discharge. Patient will be discharged home today in stable condition with guarded prognosis. The impression and plan of care has been dictated as directed. : I performed a history and examination of this patient, discussed the same with the dictator. I agree with the dictator's note ,documented as a scribe. Any additional findings or plans will be noted. Patient Condition at Discharge: Stable Plan - Discharge Summary Discharge Rx Participant: No New Discharge Prescriptions: New Aspirin 81 mg PO DAILY #90 chew Furosemide [Lasix] 20 mg PO BID@0900,1600 #180 tab Clopidogrel [Plavix] 75 mg PO DAILY #90 tab hydrALAZINE HCL [Apresoline] 25 mg PO BID #180 tab Isosorbide Mononitrate ER [Imdur] 30 mg PO DAILY #90 tab.er.24h Atorvastatin [Lipitor] 40 mg PO DAILY #90 tab Continue Montelukast [Singulair] 10 mg PO DAILY Acetaminophen Tab [Tylenol] 1,000 mg PO Q8H PRN PRN Reason: Pain Or Fever > 100.5 Insulin Aspart [NovoLOG Flexpen] See Protocol SQ AC-TID PRN PRN Reason: Blood Sugar - High Budesonide-Formot 160-4.5 Mcg [Symbicort 160-4.5 Mcg Inhaler] 2 puff INHALATION RT-BID lisinopriL [Zestril] 5 mg PO DAILY Insulin Detemir [Levemir Flextouch Pen] 37 units SQ BID Insulin Aspart [NovoLOG Flexpen] 12 units SQ TID-W/MEALS Nitroglycerin Sl Tabs [Nitrostat] 0.4 mg SUBLINGUAL Q5M PRN PRN Reason: Chest Pain metFORMIN HCL 500 mg PO BID Magnesium Oxide [Magox 400] 400 mg PO DAILY Pantoprazole [Protonix] 40 mg PO BID Cyanocobalamin [Vitamin B-12] 500 mcg PO DAILY Escitalopram Oxalate [Lexapro] 10 mg PO DAILY Polyethylene Glycol 3350 [Miralax] 17 gm PO DAILY PRN PRN Reason: Constipation Albuterol Nebulized [Ventolin Nebulized] 2.5 mg INHALATION RT-QID PRN PRN Reason: Shortness Of Breath Ipratropium-Albuterol Nebulize [Duoneb 0.5 mg-3 mg/3 ml Soln] 3 ml INHALATION RT-QID PRN PRN Reason: Shortness Of Breath Discontinued Pravastatin Sodium 40 mg PO DAILY amLODIPine [Norvasc] 5 mg PO DAILY Furosemide [Lasix] 40 mg PO BID Discharge Medication List Montelukast [Singulair] 10 mg PO DAILY 12/21/14 [History] Acetaminophen Tab [Tylenol] 1,000 mg PO Q8H PRN 03/17/17 [History] Insulin Aspart [NovoLOG Flexpen] See Protocol SQ AC-TID PRN 11/12/17 [History] Budesonide-Formot 160-4.5 Mcg [Symbicort 160-4.5 Mcg Inhaler] 2 puff INHALATION RT-BID 11/13/17 [History] lisinopriL [Zestril] 5 mg PO DAILY 01/26/18 [History] Insulin Detemir [Levemir Flextouch Pen] 37 units SQ BID 02/10/19 [History] Insulin Aspart [NovoLOG Flexpen] 12 units SQ TID-W/MEALS 08/29/19 [History] Nitroglycerin Sl Tabs [Nitrostat] 0.4 mg SUBLINGUAL Q5M PRN 11/04/19 [History] metFORMIN HCL 500 mg PO BID 11/04/19 [History] Albuterol Nebulized [Ventolin Nebulized] 2.5 mg INHALATION RT-QID PRN 01/12/21 [History] Cyanocobalamin [Vitamin B-12] 500 mcg PO DAILY 01/12/21 [History] Escitalopram Oxalate [Lexapro] 10 mg PO DAILY 01/12/21 [History] Ipratropium-Albuterol Nebulize [Duoneb 0.5 mg-3 mg/3 ml Soln] 3 ml INHALATION RT-QID PRN 01/12/21 [History] Magnesium Oxide [Magox 400] 400 mg PO DAILY 01/12/21 [History] Pantoprazole [Protonix] 40 mg PO BID 01/12/21 [History] Polyethylene Glycol 3350 [Miralax] 17 gm PO DAILY PRN 01/12/21 [History] Aspirin 81 mg PO DAILY #90 chew 01/15/21 [Rx] Atorvastatin [Lipitor] 40 mg PO DAILY #90 tab 01/15/21 [Rx] Clopidogrel [Plavix] 75 mg PO DAILY #90 tab 01/15/21 [Rx] Furosemide [Lasix] 20 mg PO BID@0900,1600 #180 tab 01/15/21 [Rx] Isosorbide Mononitrate ER [Imdur] 30 mg PO DAILY #90 tab.er.24h 01/15/21 [Rx] hydrALAZINE HCL [Apresoline] 25 mg PO BID #180 tab 01/15/21 [Rx] Follow up Appointment(s)/Referral(s): Lukas Lr MD [STAFF PHYSICIAN] - 1 Week Luis Quesada Jr, DO [Primary Care Provider] - 3 Days
[2021-01-15 11:52] LABS: Glucose,Whole Blood 342 mg/dL (75-99)
--- NOTE | 2021-01-15 13:04 | P.PN ---
Subjective Progress Note Date: 01/15/21 HISTORY OF PRESENT ILLNESS: This is a 85 year old male with a past medical history significant for chronic atrial fibrillation (not on anticoagulation due to history of, coronary artery disease with history of CABG in 2001 (LARSEN to LAD. Radial to RCA and saphenous vein graft to OM1), hypertension, obstructive sleep apnea without CPAP use, GERD, diabetes, and COPD. Patient follows in the office with Dr. Lr. We have been asked to see the patient in consultation for abnormal troponins. Patient examined at the bedside. Patient states yesterday he was having cramps in his le gs. He thought he might be having a stroke so he came to the ER for further evaluation. The patient denied having any chest pain yesterday or today. He does report having some heartburn yesterday which he states is unusual for him. He denies shortness of breath. Denies dizziness or lightheadedness. Denies palpitations EKG reveals atrial fibrillation with nonspecific ST-T wave changes. Controlled ventricular rate Chest xray negative for acute process Laboratory data: WBC 11.7. Hemoglobin 10.5. Platelet count 291. Sodium 135. Potassium 4.2. BUN 31. Creatinine 1.08. Troponin 8.068. 17.1. 18.1. Current home cardiac medications include pravastatin 40 mg daily, lisinopril 5 mg daily, Lasix 40 mg twice a day, amlodipine 5 mg daily Echocardiogram completed revealed ejection fraction 35-40%, apical septum LV wall hypokinesis, anterior septal hypokinesis, atypical septal wall motion, moderate mitral regurgitation, mild tricuspid regurgitation, moderate pulmonary hypertension 01/14/2021 Patient examined this morning at the bedside. Patient is status post cardiac catheterization with stenting of the SVG to OM. Patient denies chest pain or pressure. He denies shortness of breath. Patient states he has been up ambulating to the bathroom without difficulty. Patient's right groin soft with no hematoma noted. Vital signs are stable. 01/15/2021 Patient examined this morning. Patient is sitting up in a chair. He denies chest pain or pressure. He denies shortness of breath. Vital signs are stable. PHYSICAL EXAM: VITAL SIGNS: Reviewed. GENERAL: Well-developed in no acute distress. HEENT: Head is normocephalic. Pupils are equal, round. Sclerae anicteric. Mucous membranes of the mouth are moist. Neck supple. No JVD or thyromegaly LUNGS: Respirations even and unlabored. Lungs essentially clear to auscultation bilaterally. HEART: Irregular rate and rhythm. S1 and S2 heard. EXTREMITIES: Normal range of motion. No clubbing or cyanosis. Peripheral pulses intact. No lower extremity edema ASSESSMENT: Non-STEMI Coronary artery disease with previous CABG x 3 Chronic atrial fibrillation, not on environmental conflict manager anticoagulation Hypertension TARIQ GERD Diabetes COPD PLAN: Continue current cardiac medications Patient is stable for discharge from today from a cardiac standpoint Nurse practitioner note has been reviewed by physician. Signing provider agrees with the documented findings, assessment, and plan of care. Objective - Vital Signs Vital signs: Vital Signs Temp 97.9 F 01/15/21 08:00 Pulse 69 01/15/21 08:00 Resp 20 01/15/21 08:00 BP 160/70 01/15/21 08:00 Pulse Ox 95 01/15/21 08:00 Intake & Output 01/14/21 01/15/21 01/15/21 18:59 06:59 18:59 Intake Total 480 960 Balance 480 960 Weight 91.5 kg 93.1 kg Intake: Oral 480 960 Other: Voiding Method Toilet Toilet Urinal Urinal # Voids 1 1 - Labs CBC & Chem 7: 01/14/21 07:24 01/14/21 07:24 Labs: Abnormal Lab Results - Last 24 Hours (Table) 01/14/21 01/14/21 01/15/21 Range/Units 17:05 19:58 07:16 POC Glucose (mg/dL) 173 H 158 H 258 H (75-99) mg/dL 01/15/21 Range/Units 11:50 POC Glucose (mg/dL) 342 H (75-99) mg/dL
[2021-01-15] MEDS ORDERED: metFORMIN 500 MG TAB PO SCH (17:30)
== END 2021-01-15 13:41 | disposition home or self-care (01) | DRG 247 ==
LOC: EC 16:39 → 3SCARD 21:04
PROVIDERS: ADMIT Family Medicine; ATTEND Family Medicine
PROC: B2111ZZ Fluoroscopy of Multiple Coronary Arteries using Low Osmolar Contrast (ICD-10-PCS; 2021-01-13)
PROC: 027035Z Dilation of Coronary Artery, One Artery with Two Drug-eluting Intraluminal Devices, Percutaneous Approach (ICD-10-PCS; principal; 2021-01-13 09:35)
PROC: 4A023N7 Measurement of Cardiac Sampling and Pressure, Left Heart, Percutaneous Approach (ICD-10-PCS; 2021-01-13 09:35)
DX: I21.4 Non-ST elevation (NSTEMI) myocardial infarction (principal); I48.20 Chronic atrial fibrillation, unspecified; I25.810 Atherosclerosis of coronary artery bypass graft(s) without angina pectoris; T82.898A Other specified complication of vascular prosthetic devices, implants and grafts, initial encounter; I50.22 Chronic systolic (congestive) heart failure; I13.0 Hypertensive heart and chronic kidney disease with heart failure and stage 1 through stage 4 chronic kidney disease, or unspecified chronic kidney disease; Z95.1 Presence of aortocoronary bypass graft; Z79.01 Long term (current) use of anticoagulants; Z79.4 Long term (current) use of insulin; Z88.0 Allergy status to penicillin; Z88.1 Allergy status to other antibiotic agents; Z88.5 Allergy status to narcotic agent; Z88.8 Allergy status to other drugs, medicaments and biological substances; I25.10 Atherosclerotic heart disease of native coronary artery without angina pectoris; I25.2 Old myocardial infarction; K21.9 Gastro-esophageal reflux disease without esophagitis; Z86.73 Personal history of transient ischemic attack (TIA), and cerebral infarction without residual deficits; G47.33 Obstructive sleep apnea (adult) (pediatric); N18.30 Chronic kidney disease, stage 3 unspecified; E11.22 Type 2 diabetes mellitus with diabetic chronic kidney disease; Z86.14 Personal history of Methicillin resistant Staphylococcus aureus infection; Z82.49 Family history of ischemic heart disease and other diseases of the circulatory system; Z82.5 Family history of asthma and other chronic lower respiratory diseases; E11.40 Type 2 diabetes mellitus with diabetic neuropathy, unspecified; E61.1 Iron deficiency; D63.1 Anemia in chronic kidney disease; E78.5 Hyperlipidemia, unspecified; Z91.19 Patient's noncompliance with other medical treatment and regimen; Z79.51 Long term (current) use of inhaled steroids; I08.1 Rheumatic disorders of both mitral and tricuspid valves; I50.9 Heart failure, unspecified; I27.20 Pulmonary hypertension, unspecified; Y83.2 Surgical operation with anastomosis, bypass or graft as the cause of abnormal reaction of the patient, or of later complication, without mention of misadventure at the time of the procedure; F32.9 Major depressive disorder, single episode, unspecified; F41.9 Anxiety disorder, unspecified; I48.0 Paroxysmal atrial fibrillation; J44.9 Chronic obstructive pulmonary disease, unspecified; M19.041 Primary osteoarthritis, right hand; M19.042 Primary osteoarthritis, left hand; N40.0 Benign prostatic hyperplasia without lower urinary tract symptoms; Z87.891 Personal history of nicotine dependence; Z90.81 Acquired absence of spleen; Z90.5 Acquired absence of kidney; Z90.411 Acquired partial absence of pancreas; Z85.528 Personal history of other malignant neoplasm of kidney; Z79.899 Other long term (current) drug therapy
CPT/HCPCS: 36415; 71046; 80048; 80053; 80061; 83735; 84484; 85025; 85610; 85730; 93005; 93306; 93458; 94640; 99285

== ENCOUNTER 2021-01-21 17:27 | Emergency (ER) | payer MEDICARE, BC ==
[2021-01-21] MEDS ORDERED: SODIUM CHLORIDE 0.9% 1,000 ML IV STA (17:37)
[2021-01-21 17:47] LABS: Glucose,Whole Blood 174 mg/dL (75-99)
[2021-01-21 17:48] LABS: Anisocytosis Slight; Basophils # (A) 0.1 k/uL (0-0.2); Basophils % (A) 0 %; Eosinophils # (A) 0.2 k/uL (0-0.7); Eosinophils % (A) 1 %; HCT 24.6 % (39.0-53.0); Hypochromasia Marked; Lymphocytes # (A) 2.6 k/uL (1.0-4.8); Lymphocytes % (A) 14 %; MCH 29.7 pg (25.0-35.0); MCHC 31.1 g/dL (31.0-37.0); MCV 95.4 fL (80.0-100.0); Mean Platelet Volume 10.3; Monocytes # (A) 0.3 k/uL (0-1.0); Monocytes % (A) 2 %; Neutrophils # (A) 14.7 k/uL (1.3-7.7); Neutrophils % (A) 81 %; Platelet Count 205 k/uL (150-450); RBC 2.58 m/uL (4.30-5.90); RDW 16.6 % (11.5-15.5); WBC 18.2 k/uL (3.8-10.6)
[2021-01-21 18:00] LABS: Albumin 3.3 g/dL (3.5-5.0); Calcium 9.2 mg/dL (8.4-10.2); Magnesium 2.4 mg/dL (1.6-2.3); Potassium 4.9 mmol/L (3.5-5.1); Total Bilirubin 0.3 mg/dL (0.2-1.3); Total Protein 5.5 g/dL (6.3-8.2)
[2021-01-21 18:06] LABS: HGB 7.6 gm/dL (13.0-17.5)
[2021-01-21 18:31] LABS: INR 1.1 (<1.2); Prothrombin Time 11.7 sec (9.0-12.0)
[2021-01-21 18:35] LABS: Partial Thromboplastin Time 19.7 sec (22.0-30.0)
--- NOTE | 2021-01-21 18:42 | ED ---
CPR HPI - General Stated Complaint: Cardiac Arrest Time Seen by Provider: 01/21/21 17:27 Source: family, EMS, RN notes reviewed, old records reviewed Mode of arrival: EMS - History of Present Illness Initial Comments: This is a 5-year-old male with a history of three-way bypass many years ago a Whipple procedure done about 8 years ago in a history or recent cardiac cath with a stent placement after angioplasty who apparently was found unresponsive on the floor in his house after being seen about 15 minutes earlier. EMS was called about 1640 8 PM. They found that he was in asystole CPR and ACLS pr otocol was begun patient did urinate time go into V. fib and was shocked once. He didn't proceeded to go into PEA followed by Karyn and several occasions upon arrival to the emergency department he went back into PEA. No reports of any trauma no fevers chills nausea vomiting sweats other symptoms MD Complaint: found unresponsive - Related Data Home Medications Medication Instructions Recorded Confirmed Montelukast [Singulair] 10 mg PO DAILY 12/21/14 01/12/21 Acetaminophen Tab [Tylenol] 1,000 mg PO Q8H PRN 03/17/17 01/12/21 Insulin Aspart [NovoLOG Flexpen] See Protocol SQ AC-TID PRN 11/12/17 01/12/21 Budesonide-Formot 160-4.5 Mcg 2 puff INHALATION RT-BID 11/13/17 01/12/21 [Symbicort 160-4.5 Mcg Inhaler] lisinopriL [Zestril] 5 mg PO DAILY 01/26/18 01/12/21 Insulin Detemir [Levemir Flextouch 37 units SQ BID 02/10/19 01/13/21 Pen] Insulin Aspart [NovoLOG Flexpen] 12 units SQ TID-W/MEALS 08/29/19 01/12/21 Nitroglycerin Sl Tabs [Nitrostat] 0.4 mg SUBLINGUAL Q5M PRN 11/04/19 01/12/21 metFORMIN HCL 500 mg PO BID 11/04/19 01/12/21 Albuterol Nebulized [Ventolin 2.5 mg INHALATION RT-QID PRN 01/12/21 01/12/21 Nebulized] Cyanocobalamin [Vitamin B-12] 500 mcg PO DAILY 01/12/21 01/12/21 Escitalopram Oxalate [Lexapro] 10 mg PO DAILY 01/12/21 01/12/21 Ipratropium-Albuterol Nebulize 3 ml INHALATION RT-QID PRN 01/12/21 01/12/21 [Duoneb 0.5 mg-3 mg/3 ml Soln] Magnesium Oxide [Magox 400] 400 mg PO DAILY 01/12/21 01/12/21 Pantoprazole [Protonix] 40 mg PO BID 01/12/21 01/12/21 Polyethylene Glycol 3350 [Miralax] 17 gm PO DAILY PRN 01/12/21 01/12/21 Previous Rx's Medication Instructions Recorded Aspirin 81 mg PO DAILY #90 chew 01/15/21 Atorvastatin [Lipitor] 40 mg PO DAILY #90 tab 01/15/21 Clopidogrel [Plavix] 75 mg PO DAILY #90 tab 01/15/21 Furosemide [Lasix] 20 mg PO BID@0900,1600 #180 tab 01/15/21 Isosorbide Mononitrate ER [Imdur] 30 mg PO DAILY #90 tab.er.24h 01/15/21 hydrALAZINE HCL [Apresoline] 25 mg PO BID #180 tab 01/15/21 Allergies Allergy/AdvReac Type Severity Reaction Status Date / Time Penicillins Allergy Unknown Rash/Hives Verified 01/12/21 20:22 atorvastatin calcium Allergy Unknown Verified 01/12/21 20:22 [From Lipitor] ceftriaxone [From Rocephin] Allergy Rash/Hives Verified 01/12/21 20:22 clonazepam [From Klonopin] Allergy Hallucinati Verified 01/12/21 20:22 ons codeine Allergy Hallucinati Verified 01/12/21 20:22 ons haloperidol [From Haldol] Allergy Hallucinati Verified 01/12/21 20:22 ons haloperidol lactate Allergy Hallucinati Verified 01/12/21 20:22 [From Haldol] ons hydromorphone HCl Allergy Hallucinati Verified 01/12/21 20:22 [From Dilaudid] ons methylphenidate HCl Allergy Hallucinati Verified 01/12/21 20:22 [From Ritalin] ons morphine Allergy Hallucinati Verified 01/12/21 20:22 ons propofol Allergy Hallucinati Verified 01/12/21 20:22 ons quetiapine fumarate Allergy Hallucinati Verified 01/12/21 20:22 [From Seroquel] ons Sulfa (Sulfonamide Allergy Unknown Verified 01/12/21 20:22 Antibiotics) vancomycin Allergy Unknown Verified 01/12/21 20:22 ativan AdvReac Unknown Uncoded 01/12/21 17:39 Review of Systems ROS Statement: Those systems with pertinent positive or pertinent negative responses have been documented in the HPI. Limitations: ROS unobtainable due to patients medical condition Past Medical History Past Medical History: Atrial Fibrillation, Coronary Artery Disease (CAD), Cancer, Heart Failure, COPD, CVA/TIA, Diabetes Mellitus, Eye Disorder, GERD/Reflux, GI Bleed, Hyperlipidemia, Hypertension, Myocardial Infarction ([place]), Osteoarthritis (OA), Pneumonia, Renal Disease, Skin Disorder, Sleep Apnea/CPAP/BIPAP, Vascular Disorder Additional Past Medical History / Comment(s): Osteomylitis, CAP, mild exacerbation CHF, tracheopurulent bronchitis, hypoxic respiratory failure, paroxysmal Afib, moderate mitral and tricuspid regurg and severe pulmonary HTN. Other hx: Anemia, blood and iron transfusions, right leg cellulitis, IDDM type II, neuropathy bilateral hands/feet, chronic diabetic wounds, 2013 L renal ca ncer with surgery - partial nephrectomy/spleenectomy/distal portion of pancreas removed at [facility], TIA, [place] unknown date, BPH, gastritis, small hiatal hernia, past discitis T9-T10, arthritis bilateral hands/back, TARIQ - does not tolerate his CPAP, CKD stage III/hyperkalemia, UTI, sepsis, PVD. pt follows up in wound clinic for diabetic ulcer on R foot, currently in a boot. Last Myocardial Infarction Date:: UNKNOWN History of Any Multi-Drug Resistant Organisms: MRSA Date of last positivie culture/infection: 10/02/19 MDRO Source:: RIGHT foot Past Surgical History: Coronary Bypass/CABG, Heart Catheterization, Orthopedic Surgery Additional Past Surgical History / Comment(s): Partial L nephrectomy, distal pancreatectomy, splenectomy - at [id number] CABG - 3 vessel, EGD, colonoscopy, deviated septum surgery, skin/oral lesion removals, R carpal tunnel release, bilateral cataract removal, bilateral laser eye surgery for "leakage", Past Anesthesia/Blood Transfusion Reactions: Previous Problems w/ Anesthesia Additional Past Anesthesia/Blood Transfusion Reaction / Comment(s): 'TROUBLE COMING OUT OF ANESTHESIA' - DELUSIONAL. Patient has received blood in past without reaction. Past Psychological History: Anxiety, Depression Additional Psychological History / Comment(s): Pt resides with his spouse. He has a cane and a walker and a glucometer. He no longer drives, his spouse drives and manages his medications. 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 Smoking Status: Never smoker Past Alcohol Use History: None Reported Additional Past Alcohol Use History / Comment(s): Patient states he smoked briefly [id number] and it was only socially. No marijuana or illicit drug use. No alcohol use. Past Drug Use History: None Reported - Past Family History Father Family Medical History: Myocardial Infarction ([place]) Additional Family Medical History / Comment(s): Father of a [place] at the age of 65yrs. Mother Family Medical History: COPD General Exam - General Exam Comments Initial Comments: This is a well-developed well-nourished unresponsive male with CPR in progress. Patient did have a 7.[address]. Limitations: altered mental status, physical limitation General appearance: other (Unresponsive) Head exam: Present: atraumatic, normocephalic, normal inspection Eye exam: Present: other (Pupils are approximately 5 mm and fixed) ENT exam: Present: other (#[address]) Neck exam: Present: normal inspection Respiratory exam: Present: other (Good breath sounds with bagging of the endotracheal tube with equal breath sounds bilaterally) Cardiovascular Exam: Present: other (/Pulseless) GI/Abdominal exam: Present: soft Rectal exam: Present: deferred Extremities exam: Present: normal inspection Back exam: Present: normal inspection Neurological exam: Present: other (Unresponsive) Psychiatric exam: Present: other (Unable to evaluate) Skin exam: Present: pallor Medical Decision Making - Medical Decision Making ACLS protocol was followed patient did return to spontaneous circulation after epinephrine injections. This was short-lived the patient he returned PEA on multiple occasions. Family was at bedside after discussion with family members and the futility of the events the efforts were stopped the patient was pulseless and pronounced at 18:14 p.m. - Lab Data Result diagrams: 01/21/21 17:35 01/21/21 17:35 Lab Results 01/21/21 01/21/21 01/21/21 Range/Units 17:35 17:35 17:45 WBC 18.2 H (3.8-10.6) k/uL RBC 2.58 L (4.30-5.90) m/uL Hgb 7.6 L D (13.0-17.5) gm/dL Hct 24.6 L (39.0-53.0) % MCV 95.4 (80.0-100.0) fL MCH 29.7 (25.0-35.0) pg MCHC 31.1 (31.0-37.0) g/dL RDW 16.6 H (11.5-15.5) % Plt Count 205 (150-450) k/uL MPV 10.3 Neutrophils % 81 % Lymphocytes % 14 % Monocytes % 2 % Eosinophils % 1 % Basophils % 0 % Neutrophils # 14.7 H (1.3-7.7) k/uL Lymphocytes # 2.6 (1.0-4.8) k/uL Monocytes # 0.3 (0-1.0) k/uL Eosinophils # 0.2 (0-0.7) k/uL Basophils # 0.1 (0-0.2) k/uL Hypochromasia Marked Anisocytosis Slight Sodium 135 L (137-145) mmol/L Potassium 4.9 (3.5-5.1) mmol/L Chloride 100 (98-107) mmol/L Carbon Dioxide 17 L (22-30) mmol/L Anion Gap 18 mmol/L BUN 46 H (9-20) mg/dL Creatinine 1.60 H (0.66-1.25) mg/dL Est GFR (CKD-EPI)AfAm 46 (>60 ml/min/1.73 sqM) Est GFR (CKD-EPI)NonAf 39 (>60 ml/min/1.73 sqM) Glucose 210 H (74-99) mg/dL POC Glucose (mg/dL) 174 H (75-99) mg/dL POC Glu Clinical Care Leader ID Discher, Sugar Calcium 9.2 (8.4-10.2) mg/dL Magnesium 2.4 H (1.6-2.3) mg/dL Total Bilirubin 0.3 (0.2-1.3) mg/dL AST 72 H (17-59) U/L ALT 39 (4-49) U/L Alkaline Phosphatase 105 (38-126) U/L Creatine Kinase 162 (55-170) U/L Total Protein 5.5 L (6.3-8.2) g/dL Albumin 3.3 L (3.5-5.0) g/dL TSH 1.350 (0.465-4.680) mIU/L Critical Care Time Critical Care Time: Yes Total Critical Care Time: 75 Critical Care Time: Critical care time includes initial presentation history physical review of old charting discussed with paramedics bedside for the entire time except for pharmacy order entry technician. Discussion with multiple family members. Discussion with Dr. Key discussed with the medical interpreter's office documentation the above Disposition Clinical Impression: Pulseless electrical activity, Sudden cardiac , Ventricular fibrillation Disposition: Referrals: Luis Quesada Jr, [Primary Care Provider] - 1-2 days Preliminary Cause of : Sudden cardiac , PEA
--- NOTE | 2021-01-21 19:02 | ED ---
Medical Decision Making - Medical Decision Making EKG obtained during the period of [facility] showed a heart rate of 86 with wide complex QRS QRS to 38 QT since QTC 458/548) bundle-branch block pattern this is changed from an EKG dated 01/12/21 additional lab work did demonstrate elevated troponin - Lab Data Result diagrams: 01/21/21 17:35 01/21/21 17:35 Lab Results 01/21/21 01/21/21 01/21/21 Range/Units 17:35 17:35 17:35 WBC 18.2 H (3.8-10.6) k/uL RBC 2.58 L (4.30-5.90) m/uL Hgb 7.6 L D (13.0-17.5) gm/dL Hct 24.6 L (39.0-53.0) % MCV 95.4 (80.0-100.0) fL MCH 29.7 (25.0-35.0) pg MCHC 31.1 (31.0-37.0) g/dL RDW 16.6 H (11.5-15.5) % Plt Count 205 (150-450) k/uL MPV 10.3 Neutrophils % 81 % Lymphocytes % 14 % Monocytes % 2 % Eosinophils % 1 % Basophils % 0 % Neutrophils # 14.7 H (1.3-7.7) k/uL Lymphocytes # 2.6 (1.0-4.8) k/uL Monocytes # 0.3 (0-1.0) k/uL Eosinophils # 0.2 (0-0.7) k/uL Basophils # 0.1 (0-0.2) k/uL Hypochromasia Marked Anisocytosis Slight PT 11.7 (9.0-12.0) sec INR 1.1 (<1.2) APTT 19.7 L (22.0-30.0) sec D-Dimer 13.06 H (<0.60) mg/L FEU Sodium 135 L (137-145) mmol/L Potassium 4.9 (3.5-5.1) mmol/L Chloride 100 (98-107) mmol/L Carbon Dioxide 17 L (22-30) mmol/L Anion Gap 18 mmol/L BUN 46 H (9-20) mg/dL Creatinine 1.60 H (0.66-1.25) mg/dL Est GFR (CKD-EPI)AfAm 46 (>60 ml/min/1.73 sqM) Est GFR (CKD-EPI)NonAf 39 (>60 ml/min/1.73 sqM) Glucose 210 H (74-99) mg/dL POC Glucose (mg/dL) (75-99) mg/dL POC Glu Scrap Collector ID Calcium 9.2 (8.4-10.2) mg/dL Magnesium 2.4 H (1.6-2.3) mg/dL Total Bilirubin 0.3 (0.2-1.3) mg/dL AST 72 H (17-59) U/L ALT 39 (4-49) U/L Alkaline Phosphatase 105 (38-126) U/L Creatine Kinase 162 (55-170) U/L Troponin I (0.000-0.034) ng/mL Total Protein 5.5 L (6.3-8.2) g/dL Albumin 3.3 L (3.5-5.0) g/dL TSH 1.350 (0.465-4.680) mIU/L 01/21/21 01/21/21 Range/Units 17:35 17:45 WBC (3.8-10.6) k/uL RBC (4.30-5.90) m/uL Hgb (13.0-17.5) gm/dL Hct (39.0-53.0) % MCV (80.0-100.0) fL MCH (25.0-35.0) pg MCHC (31.0-37.0) g/dL RDW (11.5-15.5) % Plt Count (150-450) k/uL MPV Neutrophils % % Lymphocytes % % Monocytes % % Eosinophils % % Basophils % % Neutrophils # (1.3-7.7) k/uL Lymphocytes # (1.0-4.8) k/uL Monocytes # (0-1.0) k/uL Eosinophils # (0-0.7) k/uL Basophils # (0-0.2) k/uL Hypochromasia Anisocytosis PT (9.0-12.0) sec INR (<1.2) APTT (22.0-30.0) sec D-Dimer (<0.60) mg/L FEU Sodium (137-145) mmol/L Potassium (3.5-5.1) mmol/L Chloride (98-107) mmol/L Carbon Dioxide (22-30) mmol/L Anion Gap mmol/L BUN (9-20) mg/dL Creatinine (0.66-1.25) mg/dL Est GFR (CKD-EPI)AfAm (>60 ml/min/1.73 sqM) Est GFR (CKD-EPI)NonAf (>60 ml/min/1.73 sqM) Glucose (74-99) mg/dL POC Glucose (mg/dL) 174 H (75-99) mg/dL POC Glu Scrap Collector ID Discher, Sugar Calcium (8.4-10.2) mg/dL Magnesium (1.6-2.3) mg/dL Total Bilirubin (0.2-1.3) mg/dL AST (17-59) U/L ALT (4-49) U/L Alkaline Phosphatase (38-126) U/L Creatine Kinase (55-170) U/L Troponin I 0.157 H* (0.000-0.034) ng/mL Total Protein (6.3-8.2) g/dL Albumin (3.5-5.0) g/dL TSH (0.465-4.680) mIU/L Disposition Clinical Impression: Pulseless electrical activity, Sudden cardiac , Ventricular fibrillation, Elevated troponin, Anemia, Renal insufficiency Disposition: Is patient prescribed a controlled substance at d/c from ED?: No Referrals: Luis Quesada Jr, [Primary Care Provider] - 1-2 days Preliminary Cause of : Sudden cardiac , PEA
== END 2021-01-21 20:39 | disposition expired ==
LOC: EC 17:27
DX: I46.9 Cardiac arrest, cause unspecified (principal); D64.9 Anemia, unspecified; I49.01 Ventricular fibrillation; R77.8 Other specified abnormalities of plasma proteins; N28.9 Disorder of kidney and ureter, unspecified; I13.0 Hypertensive heart and chronic kidney disease with heart failure and stage 1 through stage 4 chronic kidney disease, or unspecified chronic kidney disease; E11.22 Type 2 diabetes mellitus with diabetic chronic kidney disease; N18.30 Chronic kidney disease, stage 3 unspecified; E11.40 Type 2 diabetes mellitus with diabetic neuropathy, unspecified; I50.9 Heart failure, unspecified; I25.2 Old myocardial infarction; J44.9 Chronic obstructive pulmonary disease, unspecified; K21.9 Gastro-esophageal reflux disease without esophagitis; Z79.4 Long term (current) use of insulin; Z79.51 Long term (current) use of inhaled steroids; Z88.0 Allergy status to penicillin; Z88.1 Allergy status to other antibiotic agents; Z88.2 Allergy status to sulfonamides; Z88.5 Allergy status to narcotic agent; Z88.8 Allergy status to other drugs, medicaments and biological substances; Z95.1 Presence of aortocoronary bypass graft; Z88.4 Allergy status to anesthetic agent; Z79.899 Other long term (current) drug therapy
CPT/HCPCS: 36415; 80053; 82550; 83735; 84443; 84484; 85025; 85379; 85610; 85730; 94002; 99291